=== PATIENT | male | born 1980 ===

== ENCOUNTER 2016-05-05 23:03 | Inpatient (IN) | payer MEDICAID ==
[2016-05-05 23:03] VITALS: BMI 27.0
[2016-05-05 23:59] LABS: BASO # 0.2 K/uL (0.0-0.2); BASO % 1.2 % (0.0-2.0); EOS # 0.3 K/uL (0.0-0.7); EOS % 1.7 % (0.0-4.0); HEMATOCRIT 38.7 % (35.0-51.0); LYMPH # 1.2 K/uL (1.0-4.3); LYMPH % 7.9 % (20.0-40.0); MEAN CELL VOLUME 92.5 fL (80.0-94.0); MEAN CORPUSCULAR HEMOGLOBIN 29.5 pg (27.0-31.0); MEAN CORPUSCULAR HGB CONC 31.9 g/dL (33.0-37.0); MEAN PLATELET VOLUME 7.8 fL (7.2-11.7); MONO # 1.4 K/uL (0.0-0.8); MONO % 9.3 % (0.0-10.0); NRBC % 0.2 % (0.0-2.0); PLATELET COUNT 279 K/uL (130-400); RED CELL DISTRIBUTION WIDTH 18.4 % (11.5-14.5); WHITE BLOOD COUNT 14.7 K/uL (4.8-10.8)
--- NOTE | 2016-05-06 00:02 | C.PDOC ---
History Of Present Illness 35 year old male with a history of ESRD and on dialysis, presents to the ED with complaints of lower abdominal pain starting today. Patient states he has associated vomiting and notes the pain is severe and greater on the right side. Denies diarrhea, fever, chills, back pain, urinary symptoms, or any other complaints at this time. Chief Complaint (Nursing): Abdominal Pain History Per: Patient History/Exam Limitations: no limitations Onset/Duration Of Symptoms: Hrs Current Symptoms Are (Timing): Still Present Severity: Severe Associated Symptoms: Vomiting. denies: Fever, Chills, Diarrhea, Back Pain, Urinary Symptoms Past Medical History Reviewed: Historical Data, Nursing Documentation, Vital Signs Vital Signs: Last Vital Signs Temp 99 F 05/06/16 02:28 Pulse 104 H 05/06/16 02:28 Resp 20 05/06/16 02:28 BP 208/107 H 05/06/16 02:53 Pulse Ox 96 05/06/16 02:28 - Medical History PMH: CHF, Diabetes, Gastritis, HTN, Hypercholesterolemia, End Stage Renal Disease, Chronic Kidney Disease - [facility] Procedures BYPASS LEFT BRACHIAL ARTERY TO UPPER ARM VEIN, OPEN APPROACH (02/17/16) EXCISION OF ASCENDING COLON, ENDO, DIAGN (12/19/15) EXCISION OF DUODENUM, ENDO, DIAGN (03/25/16) EXCISION OF MIDDLE ESOPHAGUS, ENDO, DIAGN (03/25/16) EXCISION OF STOMACH, ENDO, DIAGN (04/01/16) INSERTION OF INFUSION DEV INTO SUP VENA CAVA, PERC APPROACH (12/19/15) PERFORMANCE OF URINARY FILTRATION, MULTIPLE (04/26/16) PERFORMANCE OF URINARY FILTRATION, SINGLE (04/01/16) ULTRASONOGRAPHY OF SUPERIOR VENA CAVA, GUIDANCE (12/19/15) Family History: States: Unknown Family Hx - Social History Hx Tobacco Use: Yes (some days) Hx Alcohol Use: No Hx Substance Use: No - Immunization History Hx Tetanus Toxoid Vaccination: Yes Hx Influenza Vaccination: Yes Hx Pneumococcal Vaccination: Yes Review Of Systems Except As Marked, All Systems Reviewed And Found Negative. Constitutional: Negative for: Fever, Chills Gastrointestinal: Positive for: Vomiting, Abdominal Pain. Negative for: Diarrhea Genitourinary: Negative for: Dysuria, Hematuria Musculoskeletal: Negative for: Back Pain Physical Exam - Physical Exam Appears: Non-toxic, In Acute Distress (+In acute distress due to pain), Other (+ Actively vomiting in ED) Skin: Normal Color, Warm, Dry Head: Atraumatic, Normacephalic Eye(s): bilateral: Normal Inspection Oral Mucosa: Moist Chest: Symmetrical, No Deformity Cardiovascular: Rhythm Regular, No Murmur Respiratory: Normal Breath Sounds, No Accessory Muscle Use, No Rales, No Rhonchi , No Wheezing Gastrointestinal/Abdominal: Soft, Tenderness (+Tenderness to RLQ > LLQ), No Distention, No Guarding, No Rebound Neurological/Psych: Oriented x3, Normal Speech, Normal Cognition ED Course And Treatment - Laboratory Results Result Diagrams: 05/05/16 23:55 05/05/16 23:55 O2 Sat by Pulse Oximetry: 99 (Room air) Pulse Ox Interpretation: Normal - CT Scan/US CT ABD & Pelvis Other Rad Studies (CT/US): Read By Radiologist, Radiology Report Reviewed CT/US Interpretation: FINDINGS: The liver, spleen, gallbladder and pancreas appear grossly normal on this non-contrast study. No hydronephrosis. No obstructing calculi. There is fluid in the right colon that may be incidental versus being associated with enteritis/diarrhea. The transverse, descending, sigmoid colon are decompressed. Haziness in the perirectal fat at least partially due to patient motion. Superimposed inflammation would be difficult to. exclude. A normal appendix is identified on axial images 65 through 70, coronal images 44 through 60. Residual intraluminal contrast is noted. Increased density of the left testicle unchanged from prior although would still recommend nonemergent followup ultrasound. Multiple lymph nodes are present within the groins borderline enlarged. Small shotty periaortic lymph nodes are present. Mild extensive subcutaneous edema. There are fractures of the posterior lateral right ninth and 10th ribs new since most recent prior however there is evidence of callus formation suggesting they are subacute having occurred in the interim. Minimal compression deformity T11 unchanged. IMPRESSION: Fluid within the right colon possibly secondary to enteritis/ diarrhea. Decompressed transverse, descending, sigmoid colon. Possible rectal inflammation as discussed above. Lack of oral contrast. limits evaluation for wall thickness. Lack of intravenous contrast limits evaluation for abnormal wall enhancement. This is the fourth Noncontrast CT in the past 6 months. Study with both oral andintravenous contrast may be helpful to adequately evaluate the patient's bowel if clinically indicated. Non acute findings as discussed in the body of the report including subacute right rib fractures, prominent groin lymph nodes, hyperdense left testicle. Progress Note: CT ABD & Pelvis w/o contrast and Blood work ordered and reviewed. patient treated with Morphine and Zofran. Upon reevaluation, patient states he still has severe abdominal pain and continues to have vomiting and diarrhea. Dr. Chadwick called for admission. Disposition Discussed With .: Lucero Chadwick Doctor Will See Patient In The: Hospital Counseled Patient/Family Regarding: Diagnosis - Disposition Disposition: HOSPITALIZED Disposition Time: 02:01 Condition: STABLE - POA Present On Arrival: None - Clinical Impression Clinical Impression: Vomiting, Diarrhea, ESRD (end stage renal disease) on dialysis, Abdominal pain - Scribe Statement The provider has reviewed the documentation as recorded by the Scribe Priyank Hirsch. Provider Attestation: All medical record entries made by the Scribe were at my direction and personally dictated by me. I have reviewed the chart and agree that the record accurately reflects my personal performance of the history, physical exam, medical decision making, and the department course for this patient. I have also personally directed, reviewed, and agree with the discharge instructions and disposition.
[2016-05-06 00:11] LABS: POTASSIUM 3.7 mmol/L (3.6-5.2)
[2016-05-06 00:13] LABS: BILIRUBIN,TOTAL 0.5 mg/dL (0.2-1.3)
[2016-05-06 00:14] LABS: ALB/GLOB RATIO 0.9 (1.0-2.1); CALCIUM 7.8 mg/dl (8.6-10.4); TOTAL PROTEIN 6.4 g/dL (6.3-8.3)
[2016-05-06 00:54] LABS: EOSINOPHIL 2 % (0-4); NEUTROPHIL 79 % (50-75); TOTAL CELLS COUNTED 100
--- NOTE | 2016-05-06 01:29 | CT ---
EXAM: CT Abdomen and Pelvis Without Intravenous Contrast. CLINICAL HISTORY: 35 years old, male; Pain; Abdominal pain; Additional info: Right lower abd pain, tenderness TECHNIQUE: Axial computed tomography images of the abdomen and pelvis without intravenous contrast. This CT exam was performed using one or more of the following dose reduction techniques: automated exposure control, adjustment of the mA and/or kV according to patient size, and/or use of iterative reconstruction technique. Coronal and sagittal reformatted images were created and reviewed. EXAM DATE/TIME: 05/05/2016 11:32 PM COMPARISON: CT - ABD PELVIS PO CONTRAST ONLY 02/25/2016 10:45:50 PM FINDINGS: The liver, spleen, gallbladder and pancreas appear grossly normal on this non-contrast study. No hydronephrosis. No obstructing calculi. There is fluid in the right colon that may be incidental versus being associated with enteritis/diarrhea. The transverse, descending, sigmoid colon are decompressed. Haziness in the perirectal fat at least partially due to patient motion. Superimposed inflammation would be difficult to exclude. A normal appendix is identified on axial images 65 through 70, coronal images 44 through 60. Residual intraluminal contrast is noted. Increased density of the left testicle unchanged from prior although would still recommend nonemergent followup ultrasound. Multiple lymph nodes are present within the groins borderline enlarged. Small shotty periaortic lymph nodes are present. Mild extensive subcutaneous edema. There are fractures of the posterior lateral right ninth and 10th ribs new since most recent prior however there is evidence of callus formation suggesting they are subacute having occurred in the interim. Minimal compression deformity T11 unchanged. IMPRESSION: Fluid within the right colon possibly secondary to enteritis/diarrhea. Decompressed transverse, descending, sigmoid colon. Possible rectal inflammation as discussed above. Lack of oral contrast limits evaluation for wall thickness. Lack of intravenous contrast limits evaluation for abnormal wall enhancement. This is the fourth Noncontrast CT in the past 6 months. Study with both oral and intravenous contrast may be helpful to adequately evaluate the patient's bowel if clinically indicated. Non acute findings as discussed in the body of the report including subacute right rib fractures, prominent groin lymph nodes, hyperdense left testicle.
[2016-05-06] MEDS ORDERED: HYDROmorphone 1 mg/ml ISec ONE (03:43)
[2016-05-06] MEDS: HYDROmorphone 1 mg/ml ISec IVP PRN ×5 (03:45→22:05)
[2016-05-06] MEDS: (Novolog) Insulin Aspart, Recombinant 100 u/ml 10 ml vial SC SCH ×4 (08:15→22:11)
--- NOTE | 2016-05-06 08:29 | CP.PCM.PN ---
Subjective - Date & Time of Evaluation Date of Evaluation: 05/06/16 Time of Evaluation: 09:30 - Subjective Subjective: Dr. Chadwick service: Patient seen and examined in room. Patient is very sleepy but is easily awakens. He says he has been having issues with nausea vomiting, and diarrhea for some time. He has been admitted to the hospital before for the same reason before. He went to dialysis yesterday however he has been having several episodes of nausea/vomiting and diarrhea. He denies fever, chills, sick contacts, eating any unusual foods, recent travel, cough, or shortness of breath. Objective - Vital Signs/Intake and Output Vital Signs (last 24 hours): Temp Pulse Resp BP Pulse Ox 98.1 F 93 H 20 167/82 H 98 05/06/16 07:27 05/06/16 07:27 05/06/16 07:27 05/06/16 07:27 05/06/16 07:27 - Medications Medications: Current Medications Amlodipine Besylate (Norvasc) 10 mg PO DAILY [facility] Aspirin (Ecotrin) 81 mg PO DAILY [facility] Gabapentin (Neurontin) 800 mg PO TID [facility] Heparin Sodium (Porcine) (Heparin) 5,000 units IV Q12 [facility] Home Med (Atorvastatin Calcium [Atorvastatin Calcium]) 40 mg PO HS [facility] Hydralazine HCl (Apresoline) 10 mg IVP STAT [facility] Hydralazine HCl (Apresoline) 25 mg PO TID [facility] Hydromorphone HCl (Dilaudid) 1 mg IVP Q4H PRN PRN Reason: Pain, moderate (4-7) Last Admin: 05/06/16 08:15 Dose: 1 mg Insulin Aspart (Novolog) 0 unit SC ACHS [facility] PRN Reason: Protocol Last Admin: 05/06/16 08:15 Dose: 1 unit Insulin Human Isoph/Insulin Regular (Novolin 70/30 (70/30 Units/Ml) 10 Ml) 20 units SC BID [facility] Labetalol HCl (Trandate) 200 mg PO Q12H [facility] Last Admin: 05/06/16 05:00 Dose: 200 mg Lisinopril (Zestril) 20 mg PO DAILY [facility] Metoprolol Tartrate (Lopressor) 25 mg PO BID [facility] Metronidazole (Flagyl) 500 mg PO Q8 [facility] Last Admin: 05/06/16 06:20 Dose: 500 mg Ondansetron HCl (Zofran Inj) 4 mg IVP Q6 PRN PRN Reason: Nausea/Vomiting Pantoprazole Sodium (Protonix Inj) 40 mg IVP DAILY [facility] Saccharomyces Boulardii (Florastor) 250 mg PO BID [facility] Sucralfate (Carafate Tab) 1 gm PO BID [facility] - Constitutional Appears: Non-toxic, No Acute Distress - Head Exam Head Exam: NORMOCEPHALIC - Eye Exam Eye Exam: Normal appearance, PERRL Pupil Exam: NORMAL ACCOMODATION - ENT Exam ENT Exam: Normal Exam - Respiratory Exam Respiratory Exam: Clear to Ausculation Bilateral. absent: Rhonchi, Wheezes - Cardiovascular Exam Cardiovascular Exam: REGULAR RHYTHM, RRR, +S1, +S2. absent: Gallop, Rubs - GI/Abdominal Exam GI & Abdominal Exam: Soft, Normal Bowel Sounds. absent: Tenderness - Extremities Exam Extremities Exam: Pedal Edema - Back Exam Back Exam: NORMAL INSPECTION - Psychiatric Exam Psychiatric exam: Normal Affect, Normal Mood - Skin Skin Exam: Normal Color, Warm Assessment and Plan (1) Nausea and vomiting Assessment & Plan: Patient is on Zofran 4mg IVP Q6H, Carafate 1gm bid, protonix 40mg IVP Reglan 5mg IVP ACHS, Dr. Armstrong consulted, help appreciated. 1mg Dilauded Q4H prn for pain Status: Acute (2) Diarrhea Assessment & Plan: Dr. Armstrong consulted, help appreciated, Florastor Flagyl 500mg IVP Q8H Status: Acute (3) ESRD (end stage renal disease) on dialysis Assessment & Plan: Will continue current dialysis schedule of [facility] Status: Chronic (4) DM2 (diabetes mellitus, type 2) Assessment & Plan: Continue Home insuline 70/30 20 units bid, acu checks with sliding scale insulin with low protocol ordered Status: Chronic (5) HTN (hypertension) Assessment & Plan: Hydralazine 25mg tid, Lopressor 25mg bid, Zestril 20mg daily, Norvasc 10mg, Asprin 81m, Labetalol 200mg q12h Status: Chronic (6) Prophylactic measure Assessment & Plan: Protonix 40mg IVP Heparin 5000 units SC q12h Status: Acute
[2016-05-06] MEDS: Saccharomyces Boulardi 250 mg Cap PO SCH ×2 (10:16→18:31)
[2016-05-06] MEDS: (Novolin 70/30) NPH/Regular 70/30 Units/ml 10 ml vial SC SCH ×2 (10:16→18:33)
[2016-05-06 12:46] LABS: CARCINOEMBRYONIC ANTIGEN 8.4 ng/mL (0-3.0)
[2016-05-06 12:50] LABS: CA 19-9 < 1.4 U/mL (0-37)
[2016-05-06] MEDS ORDERED: Peg-Electrolyte Oral Soln 4L (Golytely) PO ONE (13:00)
--- NOTE | 2016-05-06 16:28 | CP.PCM.CON ---
History of Present Illness - History of Present Illness History of Present Illness: 35 y/o male with ESRD on maintenance HD every MWF via Lt arm AVF , CFHF , IDDM with complications is admitted for c/o abdominal pain Renal consult is requested for Mx of ESRD Past Patient History - Infectious Disease Hx of Infectious Diseases: None - Past Medical History & Family History Past Medical History?: Yes - Past Social History Smoking Status: Current Some Days Smoker - CARDIAC Hx Congestive Heart Failure: Yes Hx Hypercholesterolemia: Yes Hx Hypertension: Yes - PULMONARY Hx Respiratory Disorders: No - NEUROLOGICAL Hx Neurological Disorder: No - HEENT Hx HEENT Problems: Yes (cataracts RIGHT) Hx Cataracts: Yes - RENAL Hx Chronic Kidney Disease: Yes Hx Dialysis: Yes (MWF) - ENDOCRINE/METABOLIC Hx Endocrine Disorders: Yes - HEMATOLOGICAL/ONCOLOGICAL Hx Human Immunodeficiency Virus (HIV): No - INTEGUMENTARY Hx Dermatological Problems: No - MUSCULOSKELETAL/RHEUMATOLOGICAL Hx Falls: No - GASTROINTESTINAL Hx Gastritis: Yes - GENITOURINARY/GYNECOLOGICAL Hx Genitourinary Disorders: No - PSYCHIATRIC Hx Substance Use: No - SURGICAL HISTORY Hx Surgeries: Yes Hx Bile Duct Stent: Yes Hx Cataract Extraction: Yes Hx Eye Surgery: Yes (CATARACT REMOVAL RT.) Hx Vascular Access Device: Yes Other/Comment: RT.PERMACATH INSERTION 12/30. LT.AV SHUNT CREATION 02/17/16. UNDESCENDED TESTES LT. REMOVED DURING CHILDHOOD - ANESTHESIA Hx Anesthesia: Yes Hx Anesthesia Reactions: No Hx Malignant Hyperthermia: No Has any member of the family had a problem w/ anesthesia?: No Meds Allergies/Adverse Reactions: Allergies Allergy/AdvReac Type Severity Reaction Status Date / Time No Known Allergies Allergy Verified 02/17/16 02:41 - Medications Medications: Current Medications Amlodipine Besylate (Norvasc) 10 mg PO DAILY [facility] Last Admin: 05/06/16 10:15 Dose: 10 mg Aspirin (Ecotrin) 81 mg PO DAILY [facility] Last Admin: 05/06/16 10:15 Dose: 81 mg Bisacodyl (Dulcolax) 10 mg PO ONCE ONE Stop: 05/06/16 17:01 Gabapentin (Neurontin) 800 mg PO TID [facility] Last Admin: 05/06/16 13:25 Dose: 800 mg Heparin Sodium (Porcine) (Heparin) 5,000 units IV Q12 [facility] Last Admin: 05/06/16 10:14 Dose: 5,000 units Home Med (Atorvastatin Calcium [Atorvastatin Calcium]) 40 mg PO HS [facility] Hydralazine HCl (Apresoline) 10 mg IVP STAT [facility] Hydralazine HCl (Apresoline) 25 mg PO TID [facility] Last Admin: 05/06/16 13:25 Dose: 25 mg Hydromorphone HCl (Dilaudid) 1 mg IVP Q4H PRN PRN Reason: Pain, moderate (4-7) Last Admin: 05/06/16 12:20 Dose: 1 mg Insulin Aspart (Novolog) 0 unit SC [facility] PRN Reason: Protocol Last Admin: 05/06/16 12:06 Dose: 1 unit Insulin Human Isoph/Insulin Regular (Novolin 70/30 (70/30 Units/Ml) 10 Ml) 20 units SC BID [facility] Last Admin: 05/06/16 10:16 Dose: 20 units Labetalol HCl (Trandate) 200 mg PO Q12H [facility] Last Admin: 05/06/16 05:00 Dose: 200 mg Lisinopril (Zestril) 20 mg PO DAILY [facility] Last Admin: 05/06/16 10:16 Dose: 20 mg Metoclopramide HCl (Reglan) 5 mg IVP ACHS [facility] Last Admin: 05/06/16 12:05 Dose: 5 mg Metoprolol Tartrate (Lopressor) 25 mg PO BID [facility] Last Admin: 05/06/16 10:15 Dose: 25 mg Metronidazole (Flagyl) 500 mg PO Q8 [facility] Last Admin: 05/06/16 13:25 Dose: 500 mg Ondansetron HCl (Zofran Inj) 4 mg IVP Q6 PRN PRN Reason: Nausea/Vomiting Pantoprazole Sodium (Protonix Inj) 40 mg IVP DAILY [facility] Last Admin: 05/06/16 10:14 Dose: 40 mg Saccharomyces Boulardii (Florastor) 250 mg PO BID [facility] Last Admin: 05/06/16 10:16 Dose: 250 mg Sucralfate (Carafate Tab) 1 gm PO BID [facility] Last Admin: 05/06/16 10:15 Dose: 1 gm Physical Exam - Constitutional Appears: No Acute Distress - Head Exam Head Exam: ATRAUMATIC, NORMOCEPHALIC - Eye Exam Additional comments: No icterus - ENT Exam ENT Exam: Mucous Membranes Moist - Neck Exam Additional comments: Neck supple - Respiratory Exam Additional comments: Lungs clear. Good air entry B/L - Cardiovascular Exam Cardiovascular Exam: REGULAR RHYTHM - GI/Abdominal Exam GI & Abdominal Exam: Soft Additional comments: Mild diffuse tenderness.No duarding or rebound - Extremities Exam Additional comments: No edema Results - Vital Signs Recent Vital Signs: Last Vital Signs Temp 98.0 F 05/06/16 15:40 Pulse 85 05/06/16 15:40 Resp 20 05/06/16 15:40 BP 153/80 H 05/06/16 15:40 Pulse Ox 100 05/06/16 15:40 - Labs Result Diagrams: 05/05/16 23:55 05/05/16 23:55 Labs: Laboratory Results - last 24 hr 05/06/16 05/06/16 05/06/16 07:52 11:00 11:26 POC Glucose (mg/dL) 208 H 184 H Alpha Fetoprotein 1.6 Carcinoembryonic Ag 8.4 H CA 19-9 Antigen < 1.4 Assessment & Plan - Assessment and Plan (Free Text) Assessment: ESRD, HD dependent Abdominal pain, diabetic gastroparesis HTN IDDM Plan: Continue HD every MWF BP & labs are stable
[2016-05-06] MEDS ORDERED: Bisacodyl 5mg EC Tab PO ONE ×2 (17:00→18:38)
[2016-05-06] MEDS ORDERED: Home Med 1 UNIT (Atorvastatin Calcium [Atorvastatin Calcium] 40 MG) PO SCH (22:00)
[2016-05-07] MEDS: HYDROmorphone 1 mg/ml ISec IVP PRN ×5 (02:37→23:15)
--- NOTE | 2016-05-07 07:33 | HP ---
The patient is a 35-year-old male complaining of nausea and vomiting, abdominal pain, weakness. The patient came to the hospital, advised admission. The patient ,Diabetes, hypertension. OBJECTIVE: GENERAL: The patient is awake, alert, built. VITAL SIGNS: Temperature . HEENT: . NECK: Supple. CHEST: Symmetrical. HEART: Regular. ABDOMEN: Soft. EXTREMITIES: No edema. The patient suffers from blindness. The patient suffers from acute gastritis, uremic, diabetic, ____ _. Lucero Mcgraw MD cc: [id number] TT: 05/06/2016 11:01:21 an 05/07/2016 06:32:27
--- NOTE | 2016-05-07 07:48 | HP ---
The patient is a 35-year-old male, complaining of nausea and vomiting, weakness, abdominal pain . The patient came to the hospital, advised admission. The patient has past medical history of diab etes, hypertension, renal failure. PHYSICAL EXAMINATION: GENERAL: The patient is awake, alert, oriented to time and place. VITAL SIGNS: Temperature 98, pulse 90. HEENT: Within normal limits. NECK: Supple. CHEST: Symmetrical. HEART: Regular. ABDOMEN: Epigastric tenderness. EXTREMITIES: No edema. The patient suffers acute abdominal pain, rule out gastritis, uremic, diabetic gastroparesis, peptic ulcer disease, rule out pancreatitis. At this point, the patient gets IV fluids, GI consult [facility] Dr. Armstrong. The cardiology consult . Lucero Mcgraw MD cc: [id number] TT: 05/06/2016 11:15:11 05/06/2016 12:13:03
[2016-05-07] MEDS: (Novolog) Insulin Aspart, Recombinant 100 u/ml 10 ml vial SC SCH ×4 (07:50→22:06)
[2016-05-07 09:15] LABS: POTASSIUM 3.8 mmol/L (3.6-5.2)
[2016-05-07 09:17] LABS: ALB/GLOB RATIO 0.9 (1.0-2.1); BILIRUBIN,TOTAL 0.4 mg/dL (0.2-1.3); TOTAL PROTEIN 5.8 g/dL (6.3-8.3)
[2016-05-07 09:18] LABS: CALCIUM 7.9 mg/dl (8.6-10.4)
[2016-05-07] MEDS: Saccharomyces Boulardi 250 mg Cap PO SCH ×2 (10:15→19:08)
[2016-05-07] MEDS: (Novolin 70/30) NPH/Regular 70/30 Units/ml 10 ml vial SC SCH (10:19)
[2016-05-07] MEDS ORDERED: Midazolam 2 MG/2 ML VIAL ONE (11:26)
[2016-05-07] MEDS ORDERED: Propofol 10 mg/ml Inj (20 ML) ONE (11:26)
[2016-05-07 15:17] LABS: BASO # 0.1 K/uL (0.0-0.2); BASO % 0.9 % (0.0-2.0); EOS # 0.3 K/uL (0.0-0.7); EOS % 2.8 % (0.0-4.0); HEMATOCRIT 37.4 % (35.0-51.0); LYMPH # 1.6 K/uL (1.0-4.3); LYMPH % 16.6 % (20.0-40.0); MEAN CORPUSCULAR HEMOGLOBIN 28.5 pg (27.0-31.0); MEAN CORPUSCULAR HGB CONC 30.6 g/dL (33.0-37.0); MEAN PLATELET VOLUME 8.3 fL (7.2-11.7); MONO # 0.9 K/uL (0.0-0.8); MONO % 8.9 % (0.0-10.0); NRBC % 0.1 % (0.0-2.0); RED CELL DISTRIBUTION WIDTH 18.4 % (11.5-14.5); WHITE BLOOD COUNT 9.6 K/uL (4.8-10.8)
--- NOTE | 2016-05-07 15:20 | CP.PCM.PN ---
Subjective - Date & Time of Evaluation Date of Evaluation: 05/07/16 Time of Evaluation: 03:00 - Subjective Subjective: No complaints reported Objective - Vital Signs/Intake and Output Vital Signs (last 24 hours): Temp Pulse Resp BP Pulse Ox 97.7 F 88 18 173/96 H 96 05/07/16 14:00 05/07/16 14:00 05/07/16 14:00 05/07/16 14:45 05/07/16 14:00 Intake and Output: 05/07/16 05/07/16 06:59 18:59 Intake Total 200 Balance 200 - Medications Medications: Current Medications Amlodipine Besylate (Norvasc) 10 mg PO DAILY [facility] Last Admin: 05/07/16 10:18 Dose: Not Given Aspirin (Ecotrin) 81 mg PO DAILY [facility] Last Admin: 05/07/16 10:15 Dose: Not Given Gabapentin (Neurontin) 800 mg PO TID [facility] Heparin Sodium (Porcine) (Heparin) 5,000 units IV Q12 [facility] Last Admin: 05/07/16 10:15 Dose: Not Given Home Med (Atorvastatin Calcium [Atorvastatin Calcium]) 40 mg PO [facility] Hydralazine HCl (Apresoline) 25 mg PO TID [facility] Last Admin: 05/07/16 14:56 Dose: Not Given Hydromorphone HCl (Dilaudid) 1 mg IVP Q4H PRN PRN Reason: Pain, moderate (4-7) Last Admin: 05/07/16 13:04 Dose: 1 mg Insulin Aspart (Novolog) 0 unit SC [facility] PRN Reason: Protocol Last Admin: 05/07/16 12:37 Dose: Not Given Insulin Human Isoph/Insulin Regular (Novolin 70/30 (70/30 Units/Ml) 10 Ml) 20 units SC BID [facility] Last Admin: 05/07/16 10:19 Dose: Not Given Labetalol HCl (Trandate) 200 mg PO Q12H [facility] Last Admin: 05/07/16 05:28 Dose: 200 mg Lisinopril (Zestril) 20 mg PO DAILY [facility] Last Admin: 05/07/16 09:35 Dose: 20 mg Metoclopramide HCl (Reglan) 5 mg IVP ACHS [facility] Last Admin: 05/07/16 12:37 Dose: Not Given Metoprolol Tartrate (Lopressor) 25 mg PO BID [facility] Last Admin: 05/07/16 09:35 Dose: 25 mg Metronidazole (Flagyl) 500 mg PO Q8 [facility] Last Admin: 05/07/16 14:58 Dose: Not Given Ondansetron HCl (Zofran Inj) 4 mg IVP Q6 PRN PRN Reason: Nausea/Vomiting Pantoprazole Sodium (Protonix Inj) 40 mg IVP DAILY [facility] Last Admin: 05/07/16 10:19 Dose: Not Given Saccharomyces Boulardii (Florastor) 250 mg PO BID [facility] Last Admin: 05/07/16 10:15 Dose: Not Given Sucralfate (Carafate Tab) 1 gm PO BID [facility] Last Admin: 05/07/16 10:15 Dose: Not Given - Labs Labs: 05/07/16 08:55 APTT 30 SECONDS (21-34) 05/07/16 08:55 - Constitutional Appears: No Acute Distress - Respiratory Exam Respiratory Exam: NORMAL BREATHING PATTERN Assessment and Plan - Assessment and Plan (Free Text) Assessment: ESRD on maintenance HD HTN Abdominal pain S/P EGD today Plan: Continue HD per schedule Comfortable on dialysis Monitor BP
[2016-05-07 15:29] LABS: POTASSIUM 3.7 mmol/L (3.6-5.2)
[2016-05-07 15:31] LABS: ALB/GLOB RATIO 0.9 (1.0-2.1); BILIRUBIN,TOTAL 0.3 mg/dL (0.2-1.3); TOTAL PROTEIN 5.6 g/dL (6.3-8.3)
[2016-05-07 15:32] LABS: CALCIUM 7.8 mg/dl (8.6-10.4); MAGNESIUM 1.8 mg/dL (1.6-2.3); PHOSPHOROUS 5.7 mg/dL (2.5-4.5)
--- NOTE | 2016-05-07 18:45 | CP.PCM.PN ---
Subjective - Date & Time of Evaluation Date of Evaluation: 05/07/16 Time of Evaluation: 08:30 - Subjective Subjective: Dr. Chadwick's service: Patient seen and examined in room. Patient is still complaing of having several episodes of diarrhea and also nausea and vomiting. He does report that he is hungry though. He denies fever, chills, chest pain, or shortness of breath. Objective - Vital Signs/Intake and Output Vital Signs (last 24 hours): Temp Pulse Resp BP Pulse Ox 98.3 F 100 H 20 168/89 H 97 05/07/16 17:30 05/07/16 17:30 05/07/16 17:30 05/07/16 17:30 05/07/16 17:30 Intake and Output: 05/07/16 05/07/16 06:59 18:59 Intake Total 500 Balance 500 - Medications Medications: Current Medications Amlodipine Besylate (Norvasc) 10 mg PO DAILY ON LICENSE OF [facility] Last Admin: 05/07/16 10:18 Dose: Not Given Aspirin (Ecotrin) 81 mg PO DAILY ON [facility] OF [facility] Last Admin: 05/07/16 10:15 Dose: Not Given Gabapentin (Neurontin) 800 mg PO TID ON [facility] OF [facility] Heparin Sodium (Porcine) (Heparin) 5,000 units IV Q12 ON [facility] OF [facility] Last Admin: 05/07/16 10:15 Dose: Not Given Home Med (Atorvastatin Calcium [Atorvastatin Calcium]) 40 mg PO HS ON LICENSE OF [facility] Hydralazine HCl (Apresoline) 25 mg PO TID ON [facility] OF [facility] Last Admin: 05/07/16 14:56 Dose: Not Given Hydromorphone HCl (Dilaudid) 1 mg IVP Q4H PRN PRN Reason: Pain, moderate (4-7) Last Admin: 05/07/16 13:04 Dose: 1 mg Insulin Aspart (Novolog) 0 unit SC ACHS ON LICENSE OF [facility] PRN Reason: Protocol Last Admin: 05/07/16 12:37 Dose: Not Given Insulin Human Isoph/Insulin Regular (Novolin 70/30 (70/30 Units/Ml) 10 Ml) 20 units SC BIDCC ON LICENSE OF [facility] Labetalol HCl (Trandate) 200 mg PO Q12H ON [facility] OF [facility] Last Admin: 05/07/16 05:28 Dose: 200 mg Lisinopril (Zestril) 20 mg PO DAILY [facility] Last Admin: 05/07/16 09:35 Dose: 20 mg Metoclopramide HCl (Reglan) 5 mg IVP ACHS ON [facility] Last Admin: 05/07/16 12:37 Dose: Not Given Metoprolol Tartrate (Lopressor) 25 mg PO BID ON [facility] Last Admin: 05/07/16 09:35 Dose: 25 mg Metronidazole (Flagyl) 500 mg PO Q8 [facility] Last Admin: 05/07/16 14:58 Dose: Not Given Ondansetron HCl (Zofran Inj) 4 mg IVP Q6 PRN PRN Reason: Nausea/Vomiting Pantoprazole Sodium (Protonix Inj) 40 mg IVP DAILY [facility] Last Admin: 05/07/16 10:19 Dose: Not Given Saccharomyces Boulardii (Florastor) 250 mg PO BID ON [facility] Last Admin: 05/07/16 10:15 Dose: Not Given Sucralfate (Carafate Tab) 1 gm PO BID ON [facility] Last Admin: 05/07/16 10:15 Dose: Not Given - Labs Labs: 05/07/16 15:11 05/07/16 15:11 APTT 30 SECONDS (21-34) 05/07/16 08:55 - Constitutional Appears: Non-toxic, No Acute Distress, Unkempt - Head Exam Head Exam: NORMAL INSPECTION, NORMOCEPHALIC - Eye Exam Eye Exam: Normal appearance - ENT Exam ENT Exam: Normal Exam - Respiratory Exam Respiratory Exam: Clear to Ausculation Bilateral. absent: Rhonchi, Wheezes - Cardiovascular Exam Cardiovascular Exam: REGULAR RHYTHM, RRR, +S1, +S2. absent: Gallop, Rubs - GI/Abdominal Exam GI & Abdominal Exam: Soft, Normal Bowel Sounds. absent: Tenderness - Extremities Exam Extremities Exam: Normal Inspection. absent: Pedal Edema - Back Exam Back Exam: NORMAL INSPECTION - Psychiatric Exam Psychiatric exam: Depressed, Normal Mood - Skin Skin Exam: Dry, Normal Color, Warm Assessment and Plan - Assessment and Plan (Free Text) Assessment: Assessment and Plan (1) Nausea and vomiting Assessment & Plan: 05/07: Patient on diet, will see how he can tolerate diet, keep current medication management Patient is on Zofran 4mg IVP Q6H, Carafate 1gm bid, protonix 40mg IVP Reglan 5mg IVP [facility], Dr. Armstrong consulted, help appreciated. 1mg Dilauded Q4H prn for pain Status: Acute (2) Diarrhea Assessment & Plan: 05/07: Colonoscopy today, will follow up results, have ordered stool cultures. Dr. Armstrong consulted, help appreciated, Florastor Flagyl 500mg IVP Q8H Status: Acute (3) ESRD (end stage renal disease) on dialysis Assessment & Plan: Will continue current dialysis schedule of MWF Status: Chronic (4) DM2 (diabetes mellitus, type 2) Assessment & Plan: Continue Home insuline 70/30 20 units bid, acu checks with sliding scale insulin with low protocol ordered Status: Chronic (5) HTN (hypertension) Assessment & Plan: Hydralazine 25mg tid, Lopressor 25mg bid, Zestril 20mg daily, Norvasc 10mg, Asprin 81m, Labetalol 200mg q12h Status: Chronic (6) Prophylactic measure Assessment & Plan: Protonix 40mg IVP Heparin 5000 units SC q12h Status: Acute
--- NOTE | 2016-05-07 18:54 | CP.PCM.PN ---
Subjective - Date & Time of Evaluation Date of Evaluation: 05/07/16 Time of Evaluation: 18:35 - Subjective Subjective: Code Star note for Dr. Enrique Nixon PGY-1 Pt S & E at bedside. Code star called at 1829 House resident responded to Code Start at 1829. Pt awake, alert, sitting at bedside, no obvious signs of trauma or bleeding. Pt reports that he walked to go get a sandwich, when he turned his body to get a sandwich, he fell on his right hip/flank area. Pt reports similar incidents due to "weak legs" at home. Denies LOC, dizziness, syncope, vision changes, chest pain, abdominal pain, right side/flank pain. Objective - Vital Signs/Intake and Output Vital Signs (last 24 hours): Temp Pulse Resp BP Pulse Ox 98.3 F 100 H 20 168/89 H 97 05/07/16 17:30 05/07/16 17:30 05/07/16 17:30 05/07/16 17:30 05/07/16 17:30 Intake and Output: 05/07/16 05/07/16 06:59 18:59 Intake Total 500 Balance 500 - Medications Medications: Current Medications Amlodipine Besylate (Norvasc) 10 mg PO DAILY [facility] Last Admin: 05/07/16 10:18 Dose: Not Given Aspirin (Ecotrin) 81 mg PO DAILY [facility] Last Admin: 05/07/16 10:15 Dose: Not Given Famotidine (Pepcid) 20 mg PO DAILY [facility] Gabapentin (Neurontin) 800 mg PO TID [facility] Heparin Sodium (Porcine) (Heparin) 5,000 units IV Q12 [facility] Last Admin: 05/07/16 10:15 Dose: Not Given Home Med (Atorvastatin Calcium [Atorvastatin Calcium]) 40 mg PO HS [facility] Hydralazine HCl (Apresoline) 25 mg PO TID [facility] Last Admin: 05/07/16 14:56 Dose: Not Given Hydromorphone HCl (Dilaudid) 1 mg IVP Q4H PRN PRN Reason: Pain, moderate (4-7) Last Admin: 05/07/16 13:04 Dose: 1 mg Insulin Aspart (Novolog) 0 unit SC ACHS [facility] PRN Reason: Protocol Last Admin: 05/07/16 12:37 Dose: Not Given Insulin Human Isoph/Insulin Regular (Novolin 70/30 (70/30 Units/Ml) 10 Ml) [facility] Labetalol HCl (Trandate) 200 mg PO Q12H [facility] Last Admin: 05/07/16 05:28 Dose: 200 mg Lisinopril (Zestril) 20 mg PO DAILY [facility] Last Admin: 05/07/16 09:35 Dose: 20 mg Metoclopramide HCl (Reglan) 5 mg IVP ACHS [facility] Last Admin: 05/07/16 12:37 Dose: Not Given Metoprolol Tartrate (Lopressor) 25 mg PO BID [facility] Last Admin: 05/07/16 09:35 Dose: 25 mg Metronidazole (Flagyl) 500 mg PO Q8 [facility] Last Admin: 05/07/16 14:58 Dose: Not Given Ondansetron HCl (Zofran Inj) 4 mg IVP Q6 PRN PRN Reason: Nausea/Vomiting Saccharomyces Boulardii (Florastor) 250 mg PO BID [facility] Last Admin: 05/07/16 10:15 Dose: Not Given Sucralfate (Carafate Tab) 1 gm PO BID [facility] Last Admin: 05/07/16 10:15 Dose: Not Given - Labs Labs: 05/07/16 15:11 05/07/16 15:11 APTT 30 SECONDS (21-34) 05/07/16 08:55 - Constitutional Appears: Non-toxic, No Acute Distress - Head Exam Head Exam: ATRAUMATIC, NORMAL INSPECTION, NORMOCEPHALIC - Eye Exam Eye Exam: EOMI, Normal appearance - ENT Exam ENT Exam: Mucous Membranes Moist, Normal Exam - Neck Exam Neck Exam: Full ROM, Normal Inspection - Respiratory Exam Respiratory Exam: Clear to Ausculation Bilateral, NORMAL BREATHING PATTERN. absent: Rales, Rhonchi, Wheezes, Respiratory Distress, Stridor - Cardiovascular Exam Cardiovascular Exam: REGULAR RHYTHM, +S2 - GI/Abdominal Exam GI & Abdominal Exam: Soft, Tenderness (Epigastric), Normal Bowel Sounds - Back Exam Back Exam: NORMAL INSPECTION. absent: CVA tenderness (L), CVA tenderness (R), paraspinal tenderness, vertebral tenderness - Neurological Exam Neurological Exam: Alert, Awake, CN II-XII Intact, Oriented x3 - Psychiatric Exam Psychiatric exam: Normal Affect, Normal Mood - Skin Skin Exam: Dry, Intact, Warm. absent: Normal Color (Small, 1cm circular ecchymoses on right distal flank) Assessment and Plan - Assessment and Plan (Free Text) Assessment: S/p mechanical fall Pt awake, alert, denies pain Physical evaluation negative for concerning findings Will institute fall precautions No further intervention at this time Yvrose Nixon, PGY-1
[2016-05-08] MEDS: HYDROmorphone 1 mg/ml ISec IVP PRN ×5 (03:14→21:25)
[2016-05-08] MEDS: (Novolog) Insulin Aspart, Recombinant 100 u/ml 10 ml vial SC SCH ×4 (08:30→21:26)
[2016-05-08] MEDS: (Novolin 70/30) NPH/Regular 70/30 Units/ml 10 ml vial SC SCH ×2 (08:33→17:10)
[2016-05-08 08:43] LABS: BASO # 0.1 K/uL (0.0-0.2); BASO % 0.5 % (0.0-2.0); EOS # 0.2 K/uL (0.0-0.7); EOS % 1.9 % (0.0-4.0); HEMATOCRIT 36.6 % (35.0-51.0); LYMPH # 1.3 K/uL (1.0-4.3); LYMPH % 10.3 % (20.0-40.0); MEAN CELL VOLUME 92.3 fL (80.0-94.0); MEAN CORPUSCULAR HEMOGLOBIN 28.6 pg (27.0-31.0); MEAN PLATELET VOLUME 8.2 fL (7.2-11.7); MONO # 1.6 K/uL (0.0-0.8); MONO % 12.3 % (0.0-10.0); NRBC % 0.1 % (0.0-2.0); RED CELL DISTRIBUTION WIDTH 18.5 % (11.5-14.5); WHITE BLOOD COUNT 12.8 K/uL (4.8-10.8)
--- NOTE | 2016-05-08 08:49 | PN ---
DATE: 05/08/2016 LOCATION: 365, bed B. This is a 35-year-old male seen and examined this morning post-colonoscopy with polypectomy yesterday without significant clinical changes or reported active bleeding, post fall, as reported by the nurs ing staff. The entire chart is reviewed including, but not limited to the most recent lab and radiol ogy study results, current and the previous medication lists, current and the previous medical events . Case was discussed at length with the staff on the floor. The most recent lab results showed bloo d glucose level still elevated to 342 with increased BUN at 26, creatinine 4.3 with low albumin and l ow total protein. PHYSICAL EXAMINATION: GENERAL: A 35-year-old male, appears to be awake, alert. VITAL SIGNS: Afebrile with pulse of 92, respiratory rate 20-22, blood pressure of 174/80. HEENT: Showed pale, dry oral mucoid membrane. Nonicteric sclerae. LUNGS: Few scattered crepitation, decreased air entry at bases. HEART: Positive S1 and S2. ABDOMEN: Soft. Bowel sounds are present. No mass or organomegaly. No rebound tenderness or guardi ng. RECTAL: The patient refused. EXTREMITIES: With mild lower extremities edematous changes. No clubbing or cyanosis. NEUROLOGIC: No reported neurological deficits, sensory or motor. IMPRESSION: 1. Colon polyp diagnosed by colonoscopy recently, removed. Pathology report still pending. 2. Nonbleeding internal hemorrhoids. 3. Renal failure, on hemodialysis. 4. Known history of diabetes mellitus, hypertension, and hyperlipidemia. 5. Reported history of congestive heart failure before. 6. Peptic ulcer disease by recent history. 7. Anemia secondary to above. SUGGESTION: 1. Continue current management. 2. Advance diet gradually. Panda Armstrong MD cc: 14 TT: 05/08/2016 08:48:55 Confirmation # [id number] Dictation # [id number]
[2016-05-08 09:02] LABS: POTASSIUM 3.8 mmol/L (3.6-5.2)
[2016-05-08 09:04] LABS: BILIRUBIN,TOTAL 0.6 mg/dL (0.2-1.3)
[2016-05-08 09:05] LABS: ALB/GLOB RATIO 0.9 (1.0-2.1); PHOSPHOROUS 4.1 mg/dL (2.5-4.5); TOTAL PROTEIN 5.5 g/dL (6.3-8.3)
[2016-05-08 09:06] LABS: CALCIUM 7.2 mg/dl (8.6-10.4); MAGNESIUM 1.9 mg/dL (1.6-2.3)
[2016-05-08] MEDS: Saccharomyces Boulardi 250 mg Cap PO SCH ×2 (09:55→17:12)
--- NOTE | 2016-05-08 11:36 | CP.PCM.PN ---
Subjective - Date & Time of Evaluation Date of Evaluation: 05/08/16 Time of Evaluation: 11:00 - Subjective Subjective: Pt states that he feels beter today & at this time no abdominal pain Objective - Vital Signs/Intake and Output Vital Signs (last 24 hours): Temp Pulse Resp BP Pulse Ox 98.2 F 89 20 196/96 H 96 05/08/16 08:00 05/08/16 08:00 05/08/16 08:00 05/08/16 09:54 05/08/16 08:00 Intake and Output: 05/08/16 05/08/16 06:59 18:59 Intake Total 240 Balance 240 - Medications Medications: Current Medications Amlodipine Besylate (Norvasc) 10 mg PO DAILY [facility] Last Admin: 05/08/16 09:55 Dose: 10 mg Aspirin (Ecotrin) 81 mg PO DAILY [facility] Last Admin: 05/08/16 09:55 Dose: 81 mg Famotidine (Pepcid) 20 mg PO DAILY [facility] Last Admin: 05/08/16 09:55 Dose: 20 mg Gabapentin (Neurontin) 800 mg PO TID [facility] Heparin Sodium (Porcine) (Heparin) 5,000 units SC Q12 [facility] Last Admin: 05/08/16 09:55 Dose: 5,000 units Home Med (Atorvastatin Calcium [Atorvastatin Calcium]) 40 mg PO HS [facility] Hydralazine HCl (Apresoline) 25 mg PO TID [facility] Last Admin: 05/08/16 09:55 Dose: 25 mg Hydromorphone HCl (Dilaudid) 1 mg IVP Q4H PRN PRN Reason: Pain, moderate (4-7) Last Admin: 05/08/16 08:35 Dose: 1 mg Insulin Aspart (Novolog) 0 unit SC ACHS [facility] PRN Reason: Protocol Last Admin: 05/08/16 08:30 Dose: 4 unit Insulin Human Isoph/Insulin Regular (Novolin 70/30 (70/30 Units/Ml) 10 Ml) 20 units SC BIDCC [facility] Last Admin: 05/08/16 08:33 Dose: 20 units Labetalol HCl (Trandate) 200 mg PO Q12H [facility] Last Admin: 05/08/16 05:05 Dose: 200 mg Lisinopril (Zestril) 20 mg PO DAILY [facility] Last Admin: 05/08/16 09:54 Dose: 20 mg Metoclopramide HCl (Reglan) 5 mg IVP ACHS [facility] Last Admin: 05/08/16 08:30 Dose: 5 mg Metoprolol Tartrate (Lopressor) 25 mg PO BID [facility] Last Admin: 05/08/16 09:54 Dose: 25 mg Metronidazole (Flagyl) 500 mg PO Q8 [facility] Last Admin: 05/08/16 05:05 Dose: 500 mg Ondansetron HCl (Zofran Inj) 4 mg IVP Q6 PRN PRN Reason: Nausea/Vomiting Saccharomyces Boulardii (Florastor) 250 mg PO BID [facility] Last Admin: 05/08/16 09:55 Dose: 250 mg Sucralfate (Carafate Tab) 1 gm PO BID [facility] Last Admin: 05/08/16 09:55 Dose: 1 gm - Labs Labs: 05/08/16 08:31 05/08/16 08:31 APTT 30 SECONDS (21-34) 05/07/16 08:55 - Respiratory Exam Additional comments: Lungs clear - Cardiovascular Exam Cardiovascular Exam: REGULAR RHYTHM - GI/Abdominal Exam GI & Abdominal Exam: Soft Additional comments: No guarding - Extremities Exam Additional comments: No edema Assessment and Plan - Assessment and Plan (Free Text) Assessment: ESRD on maintenance HD HTN Abdominal pain, S/P Colonoscopy yesterday IDDM Plan: Stable on dialysis. Continue HD Mon,Wed,Tue
[2016-05-09] MEDS: HYDROmorphone 1 mg/ml ISec IVP PRN ×6 (01:30→22:23)
[2016-05-09] MEDS: (Novolog) Insulin Aspart, Recombinant 100 u/ml 10 ml vial SC SCH ×4 (09:13→23:18)
[2016-05-09] MEDS: Saccharomyces Boulardi 250 mg Cap PO SCH ×2 (10:07→18:07)
[2016-05-09] MEDS: (Novolin 70/30) NPH/Regular 70/30 Units/ml 10 ml vial SC SCH ×2 (10:14→18:00)
--- NOTE | 2016-05-09 11:09 | PN ---
DATE: 05/09/2016 LOCATION: 365, bed B. This 35-year-old male post-colonoscopy with polypectomy, appears to be somewhat more awake, alert, or iented. No reported significant new complaint or clinical changes. The entire chart is reviewed, in cluding but not limited to the most recent lab and radiology study results, current and previous medi cation list, current and the previous medical events. Case discussed with the staff at length. Most recent lab results showed leukocytosis with low hemoglobin and normal blood glucose level today to 1 07 with mildly elevated alkaline phosphatase, but low total protein and low albumin with increased BU N and creatinine compatible with the patient's known end-stage renal disease. PHYSICAL EXAMINATION: GENERAL: A 35-year-old male. VITAL SIGNS: Afebrile with heart rate of 90, respiratory rate 20-22, blood pressure of 128/68. HEENT: Showed pale, dry oral mucoid membrane. Nonicteric sclerae. LUNGS: Few scattered crepitation, decreased air entry at bases. HEART: Positive S1 and S2 with increased rate. ABDOMEN: Soft with mild generalized tenderness. No mass or organomegaly. No rebound tenderness or guarding. RECTAL: Positive tone. Vault is empty. EXTREMITIES: With slight lower extremity edematous changes. No clubbing or cyanosis. NEUROLOGIC: No reported new focal neurological deficits, sensory or motor. IMPRESSION: 1. Colon polyp diagnosed by colonoscopy with status post polypectomy, pathology report still pending . 2. Chronic renal failure on hemodialysis. 3. Known history of hypertension, hyperlipidemia, diabetes mellitus. 4. Reported history of congestive heart failure. 5. Reexacerbation of peptic ulcer disease. 6. Anemia secondary to above. SUGGESTION: 1. Continue current management. 2. Gradually advance diet. 3. Follow up on colon polyp pathology report. Panda Armstrong MD cc: 14 TT: 05/09/2016 11:07:47 Confirmation # [id number] Dictation # [id number] [email or web address]
--- NOTE | 2016-05-09 13:14 | CP.PCM.PN ---
Subjective - Date & Time of Evaluation Date of Evaluation: 05/09/16 Time of Evaluation: 12:50 - Subjective Subjective: Comfortable in bed Objective - Vital Signs/Intake and Output Vital Signs (last 24 hours): Temp Pulse Resp BP Pulse Ox 98.2 F 94 H 20 121/65 98 05/09/16 08:00 05/09/16 11:50 05/09/16 08:00 05/09/16 10:08 05/09/16 08:00 Intake and Output: 05/09/16 05/09/16 06:59 18:59 Intake Total 400 Balance 400 - Medications Medications: Current Medications Amlodipine Besylate (Norvasc) 10 mg PO DAILY [facility] Last Admin: 05/09/16 10:08 Dose: 10 mg Aspirin (Ecotrin) 81 mg PO DAILY [facility] Last Admin: 05/09/16 10:08 Dose: 81 mg Famotidine (Pepcid) 20 mg PO DAILY [facility] Last Admin: 05/09/16 10:06 Dose: 20 mg Gabapentin (Neurontin) 800 mg PO TID [facility] Heparin Sodium (Porcine) (Heparin) 5,000 units SC Q12 [facility] Last Admin: 05/09/16 10:07 Dose: 5,000 units Home Med (Atorvastatin Calcium [Atorvastatin Calcium]) 40 mg PO HS [facility] Hydralazine HCl (Apresoline) 25 mg PO TID [facility] Last Admin: 05/09/16 10:06 Dose: 25 mg Hydromorphone HCl (Dilaudid) 1 mg IVP Q4H PRN PRN Reason: Pain, moderate (4-7) Last Admin: 05/09/16 10:02 Dose: 1 mg Insulin Aspart (Novolog) [address] [facility] PRN Reason: Protocol Last Admin: 05/09/16 12:00 Dose: Not Given Insulin Human Isoph/Insulin Regular (Novolin 70/30 (70/30 Units/Ml) 10 Ml) 20 units SC BIDCC [facility] Last Admin: 05/09/16 10:14 Dose: 20 units Labetalol HCl (Trandate) 200 mg PO Q12H [facility] Last Admin: 05/09/16 05:20 Dose: 200 mg Lisinopril (Zestril) 20 mg PO DAILY [facility] Last Admin: 05/09/16 10:06 Dose: 20 mg Metoclopramide HCl (Reglan) 5 mg IVP ACHS [facility] Last Admin: 05/09/16 12:11 Dose: 5 mg Metoprolol Tartrate (Lopressor) 25 mg PO BID [facility] Last Admin: 05/09/16 10:08 Dose: 25 mg Metronidazole (Flagyl) 500 mg PO Q8 [facility] Last Admin: 05/09/16 06:30 Dose: 500 mg Ondansetron HCl (Zofran Inj) 4 mg IVP Q6 PRN PRN Reason: Nausea/Vomiting Saccharomyces Boulardii (Florastor) 250 mg PO BID [facility] Last Admin: 05/09/16 10:07 Dose: 250 mg Sucralfate (Carafate Tab) 1 gm PO BID [facility] Last Admin: 05/09/16 10:08 Dose: 1 gm - Labs Labs: 05/08/16 08:31 05/08/16 08:31 APTT 30 SECONDS (21-34) 05/07/16 08:55 - Respiratory Exam Respiratory Exam: NORMAL BREATHING PATTERN - Cardiovascular Exam Cardiovascular Exam: REGULAR RHYTHM Assessment and Plan - Assessment and Plan (Free Text) Assessment: ESRD on HD HTN IDDM, gastroparesis Abdominal pain S/P colonoscopy & resection of colon polyps Plan: BP is controlled Continue hemodialysis per schedule
[2016-05-10] MEDS: HYDROmorphone 1 mg/ml ISec IVP PRN ×4 (02:24→21:15)
--- NOTE | 2016-05-10 07:35 | CP.PCM.PN ---
Subjective - Date & Time of Evaluation Date of Evaluation: 05/10/16 Time of Evaluation: 06:55 - Subjective Subjective: PGY2 Medicine Note - Dr. Chadwick's Service: Patient seen and evaluated at bedside this AM. Patient sleeping comfortably. Upon awakening, patient says he has severe lower abdominal pain. Patient reports watery, brown diarrhea and acid reflux. Patient denies nausea and vomiting. Patient denies fever, chills, chest pain, SOB, dysuria. Objective - Vital Signs/Intake and Output Vital Signs (last 24 hours): Temp Pulse Resp BP Pulse Ox 98.1 F 87 20 161/85 H 97 05/10/16 00:12 05/10/16 00:12 05/10/16 00:12 05/10/16 00:12 05/10/16 00:12 Intake and Output: 05/10/16 05/10/16 06:59 18:59 Intake Total 860 Balance 860 - Medications Medications: Current Medications Amlodipine Besylate (Norvasc) 10 mg PO DAILY [facility] Last Admin: 05/09/16 10:08 Dose: 10 mg Aspirin (Ecotrin) 81 mg PO DAILY [facility] Last Admin: 05/09/16 10:08 Dose: 81 mg Famotidine (Pepcid) 20 mg PO DAILY [facility] Last Admin: 05/09/16 10:06 Dose: 20 mg Gabapentin (Neurontin) 300 mg PO TID [facility] Last Admin: 05/09/16 18:10 Dose: 300 mg Heparin Sodium (Porcine) (Heparin) 5,000 units SC Q12 [facility] Last Admin: 05/09/16 21:59 Dose: 5,000 units Hydralazine HCl (Apresoline) 50 mg PO Q8 [facility] Last Admin: 05/10/16 06:46 Dose: 50 mg Hydromorphone HCl (Dilaudid) 1 mg IVP Q4H PRN PRN Reason: Pain, severe (8-10) Last Admin: 05/10/16 06:48 Dose: 1 mg Insulin Aspart (Novolog) 0 unit SC ACHS [facility] PRN Reason: Protocol Last Admin: 05/09/16 23:18 Dose: Not Given Insulin Human Isoph/Insulin Regular (Novolin 70/30 (70/30 Units/Ml) 10 Ml) 20 units SC BIDCC [facility] Last Admin: 05/09/16 18:00 Dose: 20 units Labetalol HCl (Trandate) 200 mg PO Q12H [facility] Last Admin: 05/10/16 05:45 Dose: 200 mg Lisinopril (Zestril) 20 mg PO DAILY [facility] Last Admin: 05/09/16 10:06 Dose: 20 mg Metoclopramide HCl (Reglan) 5 mg IVP ACHS [facility] Last Admin: 05/09/16 22:23 Dose: 5 mg Metoprolol Tartrate (Lopressor) 25 mg PO BID [facility] Last Admin: 05/09/16 18:08 Dose: 25 mg Metronidazole (Flagyl) 500 mg PO Q8 [facility] Last Admin: 05/10/16 06:46 Dose: 500 mg Ondansetron HCl (Zofran Inj) 4 mg IVP Q6 PRN PRN Reason: Nausea/Vomiting Rosuvastatin Calcium (Crestor) 10 mg PO HS [facility] Last Admin: 05/09/16 21:59 Dose: 10 mg Saccharomyces Boulardii (Florastor) 250 mg PO BID [facility] Last Admin: 05/09/16 18:07 Dose: 250 mg Sucralfate (Carafate Tab) 1 gm PO BID [facility] Last Admin: 05/09/16 18:06 Dose: Not Given - Labs Labs: 05/08/16 08:31 05/08/16 08:31 APTT 30 SECONDS (21-34) 05/07/16 08:55 - Constitutional Appears: Non-toxic, No Acute Distress - Head Exam Head Exam: NORMAL INSPECTION - Eye Exam Eye Exam: EOMI - ENT Exam ENT Exam: Mucous Membranes Moist - Respiratory Exam Respiratory Exam: Clear to Ausculation Bilateral, NORMAL BREATHING PATTERN - Cardiovascular Exam Cardiovascular Exam: REGULAR RHYTHM, +S1, +S2. absent: Gallop, Rubs, Murmur - GI/Abdominal Exam GI & Abdominal Exam: Soft, Tenderness (lower abdomen), Normal Bowel Sounds. absent: Distended, Firm - Extremities Exam Extremities Exam: Pedal Edema (1+ pitting b/l) - Neurological Exam Neurological Exam: Alert, Awake, Oriented x3 - Psychiatric Exam Psychiatric exam: Normal Affect, Normal Mood - Skin Skin Exam: Normal Color, Warm Assessment and Plan - Assessment and Plan (Free Text) Assessment: (1) Nausea and vomiting Assessment & Plan: 05/10: continue current diet. Nausea and vomiting resolved Patient is on Zofran 4mg IVP Q6H, Carafate 1gm bid, protonix 40mg IVP Reglan 5mg IVP ACHS, Dr. Armstrong consulted, help appreciated. 1mg Dilauded Q4H prn for pain Status: Acute (2) Diarrhea Assessment & Plan: 05/10: colonoscopy: moderate nonbleeding internal hemorrhoids, two sessile polyps 10-11mm in colon and two 4-5mm polyps in transverse colon. Patient needs to repeat in 3 years. C diff negative Leukocytes negative F/U cryptosporidium, giardia lactoferrin and norovirus 05/07: Colonoscopy today, will follow up results, have ordered stool cultures. Dr. Armstrong, GI consulted, help appreciated Florastor Flagyl 500mg IVP Q8H Status: Acute (3) ESRD (end stage renal disease) on dialysis Assessment & Plan: Will continue current dialysis schedule of MWF Status: Chronic (4) DM2 (diabetes mellitus, type 2) Assessment & Plan: Continue Home insulin 70/30 20 units bid, accu checks with sliding scale insulin with low protocol ordered Status: Chronic (5) HTN (hypertension) Assessment & Plan: Increased hydralazine to 50mg PO TID Continue Lopressor 25mg bid, Zestril 20mg daily, Norvasc 10mg, Asprin 81m, Labetalol 200mg q12h Status: Chronic (6) Prophylactic measure Assessment & Plan: Protonix 40mg IVP Heparin 5000 units SC q12h Status: Acute
--- NOTE | 2016-05-10 08:03 | CON ---
DATE: 05/06/[address] Panda Armstrong to Dr. Lucero Mcgraw. I was called for GI consultation by the admitting MD. The patient is seen and fully examined on 04/15 for GI consultation as reported and requested by the admitting medical team. The entire chart is reviewed including, but not limited to, the most recent lab and radiology study results, current and previous medication lists, current and the previous medical events, allergy to medication list as well as all the available current and the previous medical record. Case discussed at length with the staff on the floor. HISTORY OF PRESENT ILLNESS: This is a 35-year-old male, known case for me from previous admissions, who was admitted to the hospital through the Emergency Room due to severe crampy lower abdominal pain , postprandial abdominal distention, recurrent nausea and vomiting with change of bowel movement habi t postdialysis with intermittent periods of mild chills but no reported fever, no chest pain or signi ficant shortness of breath. PAST MEDICAL HISTORY: Including but not limited to: 1. Diabetes mellitus. 2. Diabetic gastroparesis. 3. Peptic ulcer disease. 4. Hypertension with hyperlipidemia. 5. End-stage renal disease, on hemodialysis. 6. Reported congestive heart failure before. FAMILY HISTORY: Unknown. SOCIAL HISTORY: Positive for cigarette smoking, but no alcohol intake. CURRENT MEDICATIONS: Medication lists were reviewed. ALLERGY TO MEDICATION: List is reviewed. LABORATORY DATA: After being admitted to the hospital, the patient was found to have leukocytosis of 14.7 with increased BUN at 26, creatinine 3.1 with elevated blood glucose level to 205. Sectional abdominal and pelvic CAT scan was performed. Official report still pending at the time of the examination, but primary report showed no acute finding. PHYSICAL EXAMINATION: GENERAL: A 35-year-old male. VITAL SIGNS: Afebrile with pulse of 100, respiratory rate 20-22 with blood pressure of 196/100. HEENT: Showed pale, dry oral mucoid membrane. Nonicteric sclerae. LUNGS: A few scattered crepitations. Decreased air entry at bases. LYMPH NODES: No lymphadenitis or lymphadenopathy. HEART: Positive S1 and S2 with increased rate. ABDOMEN: Soft with diffuse tenderness, but mainly on the right lower and the left lower quadrant. RECTAL: Positive tone. Guaiac positive stool. EXTREMITIES: With mild lower extremities edematous changes. No clubbing or cyanosis. NEUROLOGIC: No reported new neurological deficit, sensory or motor. IMPRESSION: 1. Reexacerbation of peptic ulcer disease. 2. Diarrhea, infectious versus mechanical, with guaiac positive stool. Rule out pseudomembranous co litis. Rule out occult gastrointestinal malignancy, less likely. 3. Multiple past medical history including, but not limited to, end-stage renal disease, on hemodial ysis; hypertension, hyperlipidemia, diabetes mellitus with diabetic gastroparesis as well as reported congestive heart failure before. SUGGESTION: 1. Continue current management. 2. Complete stool workup. 3. Flagyl IVs 500 mg IV piggyback daily only. 4. Proton pump inhibitors. 5. Reglan IV. 6. Endoscopic evaluation of the lower GI tract when the patient is more stable clinically. Thank you for letting me participate in your patient's case management. Further recommendation and e valuation to follow. The case discussed at length with the admitting medical team. Panda Armstrong MD cc: 14 TT: 05/10/2016 08:03:00 Confirmation # [id number] Dictation # [id number] mn
[2016-05-10] MEDS: (Novolin 70/30) NPH/Regular 70/30 Units/ml 10 ml vial SC SCH ×2 (08:30→17:17)
[2016-05-10] MEDS: (Novolog) Insulin Aspart, Recombinant 100 u/ml 10 ml vial SC SCH ×4 (08:31→21:22)
--- NOTE | 2016-05-10 09:15 | PN ---
DATE: 05/08/2016 The patient feeling weak, fatigued and sleeping most of the time, gastritis. Lucero Mcgraw MD cc: [id number] TT: 05/09/2016 00:46:18 Confirmation # [id number] Dictation # [id number] 05/10/2016 08:15:11
[2016-05-10] MEDS: Saccharomyces Boulardi 250 mg Cap PO SCH ×2 (09:53→17:16)
--- NOTE | 2016-05-10 12:30 | CP.PCM.PN ---
Subjective - Date & Time of Evaluation Date of Evaluation: 05/10/16 Time of Evaluation: 12:00 - Subjective Subjective: Sitting up in bed & eating. States that he feels better Objective - Vital Signs/Intake and Output Vital Signs (last 24 hours): Temp Pulse Resp BP Pulse Ox 98.3 F 91 H 19 142/83 98 05/10/16 12:00 05/10/16 12:00 05/10/16 12:00 05/10/16 12:00 05/10/16 12:00 Intake and Output: 05/10/16 05/10/16 06:59 18:59 Intake Total 860 Balance 860 - Medications Medications: Current Medications Amlodipine Besylate (Norvasc) 10 mg PO DAILY [facility] Last Admin: 05/10/16 09:53 Dose: Not Given Aspirin (Ecotrin) 81 mg PO DAILY [facility] Last Admin: 05/10/16 09:52 Dose: Not Given Famotidine (Pepcid) 20 mg PO DAILY [facility] Last Admin: 05/09/16 10:06 Dose: 20 mg Gabapentin (Neurontin) 300 mg PO TID [facility] Last Admin: 05/10/16 09:53 Dose: Not Given Heparin Sodium (Porcine) (Heparin) 5,000 units SC Q12 [facility] Last Admin: 05/10/16 09:53 Dose: Not Given Heparin Sodium (Porcine) (Heparin) 3,700 units IVP MWF [facility] Last Admin: 05/10/16 10:49 Dose: 3,700 units Hydralazine HCl (Apresoline) 50 mg PO Q8 [facility] Last Admin: 05/10/16 06:46 Dose: 50 mg Hydromorphone HCl (Dilaudid) 1 mg IVP Q4H PRN PRN Reason: Pain, severe (8-10) Last Admin: 05/10/16 06:48 Dose: 1 mg Insulin Aspart (Novolog) 0 unit SC ACHS [facility] PRN Reason: Protocol Last Admin: 05/10/16 08:31 Dose: 2 unit Insulin Human Isoph/Insulin Regular (Novolin 70/30 (70/30 Units/Ml) 10 Ml) 20 units SC BIDCC [facility] Last Admin: 05/10/16 08:30 Dose: 20 units Labetalol HCl (Trandate) 200 mg PO Q12H [facility] Last Admin: 05/10/16 05:45 Dose: 200 mg Lisinopril (Zestril) 20 mg PO DAILY [facility] Last Admin: 05/10/16 09:53 Dose: Not Given Metoclopramide HCl (Reglan) 5 mg IVP ACHS [facility] Last Admin: 05/10/16 08:32 Dose: 5 mg Metoprolol Tartrate (Lopressor) 25 mg PO BID [facility] Last Admin: 05/10/16 09:53 Dose: Not Given Metronidazole (Flagyl) 500 mg PO Q8 [facility] Last Admin: 05/10/16 06:46 Dose: 500 mg Ondansetron HCl (Zofran Inj) 4 mg IVP Q6 PRN PRN Reason: Nausea/Vomiting Rosuvastatin Calcium (Crestor) 10 mg PO HS [facility] Last Admin: 05/09/16 21:59 Dose: 10 mg Saccharomyces Boulardii (Florastor) 250 mg PO BID [facility] Last Admin: 05/10/16 09:53 Dose: Not Given Sucralfate (Carafate Tab) 1 gm PO BID [facility] Last Admin: 05/10/16 09:52 Dose: Not Given - Labs Labs: 05/08/16 08:31 05/08/16 08:31 APTT 30 SECONDS (21-34) 05/07/16 08:55 - Respiratory Exam Additional comments: Lungs clear - Cardiovascular Exam Cardiovascular Exam: REGULAR RHYTHM - GI/Abdominal Exam GI & Abdominal Exam: Soft - Extremities Exam Additional comments: No edema Assessment and Plan - Assessment and Plan (Free Text) Assessment: ESRD on HD HTN Abdominal pain IDDM with complications Plan: Dialysis tolerated well today. Continue hemodialysis [facility]
--- NOTE | 2016-05-10 14:19 | PN ---
DATE: 05/10/2016 LOCATION: 365, bed B. This is a 35-year-old male seen and examined in rounds without significant clinical changes or report ed active bleeding recently, with a complaint again of severe lower abdominal pain of unclear etiolog y with watery bowel movement as well as nausea with persistent dyspepsia. No reported vomiting, chil ls or significant shortness of breath. The entire chart is reviewed including, but not limited to most recent lab and radiology study result s, current and previous medication list, current and previous medical events. Case discussed at [facility] with the staff on the floor. Most recent lab results showed elevated blood glucose level to 229 with leukocytosis and low hemoglob in with low albumin and low total protein. His calcium is still low at 7.2. The previous done CAT scan of the abdomen and the pelvis films and reports reviewed again. PHYSICAL EXAMINATION: GENERAL: A 35-year-old male. VITAL SIGNS: Afebrile with heart rate of 90, respiratory rate 20-22 with blood pressure of 144/80. HEENT: Showed pale, dry oral mucoid membrane. Nonicteric sclerae. LUNGS: Few scattered crepitations, decreased air entry at bases. HEART: Positive S1 and S2 with increased rate. ABDOMEN: With mild generalized tenderness with slight distention. No mass or organomegaly. No rebo und tenderness or guarding. RECTAL: The patient refused. EXTREMITIES: With mild lower extremity edematous changes. No clubbing or cyanosis. NEUROLOGIC: No reported new focal neurological deficits, sensory or motor. IMPRESSION: 1. Colon polyp removed. 2. Chronic renal failure on hemodialysis. 3. Known history of hyperlipidemia, diabetes mellitus with hypertension. 4. Reported history of congestive heart failure. 5. Anemia secondary to above. 6. ulcer disease. SUGGESTION: 1. Agree with your plan. 2. Increase the rate of Reglan IV. 3. Flagyl IV. 4. If the patient's symptoms persist, then endoscopic evaluation of the upper GI tract to be kept in mind. Panda Armstrong MD cc: 14 TT: 05/10/2016 14:18:50 Confirmation # [id number] Dictation # [id number] mn
[2016-05-10 17:26] VITALS: RESP 20
[2016-05-11 00:24] VITALS: TEMP 98.4
[2016-05-11] MEDS: HYDROmorphone 1 mg/ml ISec IVP PRN ×3 (01:24→09:58)
[2016-05-11 06:27] VITALS: PULSE 84
[2016-05-11 07:36] LABS: BASO # 0.1 K/uL (0.0-0.2); BASO % 0.8 % (0.0-2.0); EOS # 0.5 K/uL (0.0-0.7); EOS % 4.4 % (0.0-4.0); HEMATOCRIT 38.2 % (35.0-51.0); LYMPH # 1.6 K/uL (1.0-4.3); MEAN CELL VOLUME 92.3 fL (80.0-94.0); MEAN CORPUSCULAR HEMOGLOBIN 28.3 pg (27.0-31.0); MEAN CORPUSCULAR HGB CONC 30.7 g/dL (33.0-37.0); MEAN PLATELET VOLUME 8.8 fL (7.2-11.7); MONO # 1.4 K/uL (0.0-0.8); RED CELL DISTRIBUTION WIDTH 17.8 % (11.5-14.5); WHITE BLOOD COUNT 11.3 K/uL (4.8-10.8)
[2016-05-11 07:42] LABS: POTASSIUM 5.2 mmol/L (3.6-5.2)
[2016-05-11 07:44] LABS: BILIRUBIN,TOTAL 0.3 mg/dL (0.2-1.3)
[2016-05-11 07:45] LABS: ALB/GLOB RATIO 0.9 (1.0-2.1); CALCIUM 7.6 mg/dl (8.6-10.4); TOTAL PROTEIN 5.7 g/dL (6.3-8.3)
[2016-05-11 08:11] VITALS: O2SAT 97
[2016-05-11] MEDS: (Novolin 70/30) NPH/Regular 70/30 Units/ml 10 ml vial SC SCH (08:16)
[2016-05-11] MEDS: (Novolog) Insulin Aspart, Recombinant 100 u/ml 10 ml vial SC SCH ×2 (08:17→12:14)
[2016-05-11] MEDS: Saccharomyces Boulardi 250 mg Cap PO SCH (09:40)
[2016-05-11 10:13] VITALS: BP 162/84
--- NOTE | 2016-05-11 11:03 | CP.PCM.PN ---
Subjective - Date & Time of Evaluation Date of Evaluation: 05/11/16 Time of Evaluation: 07:40 - Subjective Subjective: PGY2 Medicine Note - Dr. Chadwick's Service: Patient seen and evaluated at bedside this AM. Patient sleeping comfortably. Upon awakening, patient says he is ready to go home. Patient reports continued diarrhea and abdominal pain but says it has improved. Patient denies fever, chills, chest pain, SOB, dysuria. Objective - Vital Signs/Intake and Output Vital Signs (last 24 hours): Temp Pulse Resp BP Pulse Ox 98.4 F 84 20 162/84 H 97 05/11/16 08:10 05/11/16 08:10 05/11/16 08:10 05/11/16 10:12 05/11/16 08:10 Intake and Output: 05/11/16 05/11/16 06:59 18:59 Intake Total 250 Balance 250 - Medications Medications: Current Medications Amlodipine Besylate (Norvasc) 10 mg PO DAILY [facility] Last Admin: 05/11/16 09:42 Dose: 10 mg Aspirin (Ecotrin) 81 mg PO DAILY [facility] Last Admin: 05/11/16 09:42 Dose: 81 mg Famotidine (Pepcid) 20 mg PO DAILY [facility] Last Admin: 05/11/16 09:42 Dose: 20 mg Gabapentin (Neurontin) 300 mg PO TID [facility] Last Admin: 05/11/16 09:43 Dose: 300 mg Heparin Sodium (Porcine) (Heparin) 5,000 units SC Q12 [facility] Last Admin: 05/11/16 09:43 Dose: 5,000 units Heparin Sodium (Porcine) (Heparin) 3,700 units IVP MWF [facility] Last Admin: 05/10/16 10:49 Dose: 3,700 units Hydralazine HCl (Apresoline) 50 mg PO Q8 [facility] Last Admin: 05/11/16 06:25 Dose: 50 mg Hydromorphone HCl (Dilaudid) 1 mg IVP Q4H PRN PRN Reason: Pain, severe (8-10) Last Admin: 05/11/16 09:58 Dose: 1 mg Insulin Aspart (Novolog) 0 unit SC ACHS [facility] PRN Reason: Protocol Last Admin: 05/11/16 08:17 Dose: 1 unit Insulin Human Isoph/Insulin Regular (Novolin 70/30 (70/30 Units/Ml) 10 Ml) 20 units SC BIDCC [facility] Last Admin: 05/11/16 08:16 Dose: 20 units Labetalol HCl (Trandate) 200 mg PO Q12H [facility] Last Admin: 05/11/16 04:34 Dose: 200 mg Lisinopril (Zestril) 20 mg PO DAILY [facility] Last Admin: 05/11/16 09:40 Dose: 20 mg Metoclopramide HCl (Reglan) 5 mg IVP ACHS [facility] Last Admin: 05/11/16 08:17 Dose: 5 mg Metoprolol Tartrate (Lopressor) 25 mg PO BID [facility] Last Admin: 05/11/16 10:12 Dose: 25 mg Metronidazole (Flagyl) 500 mg PO Q8 [facility] Last Admin: 05/11/16 06:35 Dose: 500 mg Ondansetron HCl (Zofran Inj) 4 mg IVP Q6 PRN PRN Reason: Nausea/Vomiting Rosuvastatin Calcium (Crestor) 10 mg PO HS [facility] Last Admin: 05/10/16 21:23 Dose: 10 mg Saccharomyces Boulardii (Florastor) 250 mg PO BID [facility] Last Admin: 05/11/16 09:40 Dose: 250 mg Sucralfate (Carafate Tab) 1 gm PO BID [facility] Last Admin: 05/11/16 09:40 Dose: 1 gm - Labs Labs: 05/11/16 07:17 05/11/16 07:17 APTT 30 SECONDS (21-34) 05/07/16 08:55 - Constitutional Appears: Non-toxic, No Acute Distress - Eye Exam Eye Exam: EOMI - ENT Exam ENT Exam: Mucous Membranes Moist - Respiratory Exam Respiratory Exam: Clear to Ausculation Bilateral, NORMAL BREATHING PATTERN. absent: Rales, Rhonchi, Wheezes - Cardiovascular Exam Cardiovascular Exam: REGULAR RHYTHM, +S1, +S2. absent: Gallop, Rubs, Murmur - GI/Abdominal Exam GI & Abdominal Exam: Soft, Tenderness, Normal Bowel Sounds. absent: Distended, Firm - Extremities Exam Extremities Exam: absent: Pedal Edema - Neurological Exam Neurological Exam: Alert, Oriented x3 - Psychiatric Exam Psychiatric exam: Normal Affect, Normal Mood - Skin Skin Exam: Normal Color, Warm Assessment and Plan - Assessment and Plan (Free Text) Assessment: (1) Nausea and vomiting Assessment & Plan: 05/11: resolved. D/C home 05/10: continue current diet. Nausea and vomiting resolved Patient is on Zofran 4mg IVP Q6H, Carafate 1gm bid, protonix 40mg IVP Reglan 5mg IVP ACHS, Dr. Armstrong consulted, help appreciated. 1mg Dilauded Q4H prn for pain Status: Acute (2) Diarrhea Assessment & Plan: 05/11: D/C home 05/10: colonoscopy: moderate nonbleeding internal hemorrhoids, two sessile polyps 10-11mm in colon and two 4-5mm polyps in transverse colon. Patient needs to repeat in 3 years. C diff negative Leukocytes negative F/U cryptosporidium, giardia lactoferrin and norovirus 05/07: Colonoscopy today, will follow up results, have ordered stool cultures. Dr. Armstrong, GI consulted, help appreciated Florastor Flagyl 500mg IVP Q8H Status: Acute (3) ESRD (end stage renal disease) on dialysis Assessment & Plan: Will continue current dialysis schedule of MWF Status: Chronic (4) DM2 (diabetes mellitus, type 2) Assessment & Plan: Continue Home insulin 70/30 20 units bid, accu checks with sliding scale insulin with low protocol ordered Status: Chronic (5) HTN (hypertension) Assessment & Plan: Increased hydralazine to 50mg PO TID - patient given script for this Continue Lopressor 25mg bid, Zestril 20mg daily, Norvasc 10mg, Asprin 81m, Labetalol 200mg q12h Status: Chronic (6) Prophylactic measure Assessment & Plan: Protonix 40mg IVP Heparin 5000 units SC q12h Status: Acute
--- NOTE | 2016-05-11 12:59 | CP.PCM.PN ---
Subjective - Date & Time of Evaluation Date of Evaluation: 05/11/16 Time of Evaluation: 10:35 - Subjective Subjective: Feels better today Tolerating diet better Objective - Vital Signs/Intake and Output Vital Signs (last 24 hours): Temp Pulse Resp BP Pulse Ox 98.4 F 84 20 162/84 H 97 05/11/16 08:10 05/11/16 08:10 05/11/16 08:10 05/11/16 10:12 05/11/16 08:10 Intake and Output: 05/11/16 05/11/16 06:59 18:59 Intake Total 250 Balance 250 - Medications Medications: Current Medications Amlodipine Besylate (Norvasc) 10 mg PO DAILY [facility] Last Admin: 05/11/16 09:42 Dose: 10 mg Aspirin (Ecotrin) 81 mg PO DAILY [facility] Last Admin: 05/11/16 09:42 Dose: 81 mg Famotidine (Pepcid) 20 mg PO DAILY [facility] Last Admin: 05/11/16 09:42 Dose: 20 mg Gabapentin (Neurontin) 300 mg PO TID [facility] Last Admin: 05/11/16 09:43 Dose: 300 mg Heparin Sodium (Porcine) (Heparin) 5,000 units SC Q12 [facility] Last Admin: 05/11/16 09:43 Dose: 5,000 units Heparin Sodium (Porcine) (Heparin) 3,700 units IVP MWF [facility] Last Admin: 05/10/16 10:49 Dose: 3,700 units Hydralazine HCl (Apresoline) 50 mg PO Q8 [facility] Last Admin: 05/11/16 06:25 Dose: 50 mg Hydromorphone HCl (Dilaudid) 1 mg IVP Q4H PRN PRN Reason: Pain, severe (8-10) Last Admin: 05/11/16 09:58 Dose: 1 mg Insulin Aspart (Novolog) 0 unit SC ACHS [facility] PRN Reason: Protocol Last Admin: 05/11/16 12:14 Dose: 4 unit Insulin Human Isoph/Insulin Regular (Novolin 70/30 (70/30 Units/Ml) 10 Ml) 20 units SC BIDCC [facility] Last Admin: 05/11/16 08:16 Dose: 20 units Labetalol HCl (Trandate) 200 mg PO Q12H [facility] Last Admin: 05/11/16 04:34 Dose: 200 mg Lisinopril (Zestril) 20 mg PO DAILY [facility] Last Admin: 05/11/16 09:40 Dose: 20 mg Metoclopramide HCl (Reglan) 5 mg IVP ACHS [facility] Last Admin: 05/11/16 12:17 Dose: 5 mg Metoprolol Tartrate (Lopressor) 25 mg PO BID [facility] Last Admin: 05/11/16 10:12 Dose: 25 mg Metronidazole (Flagyl) 500 mg PO Q8 [facility] Last Admin: 05/11/16 06:35 Dose: 500 mg Ondansetron HCl (Zofran Inj) 4 mg IVP Q6 PRN PRN Reason: Nausea/Vomiting Rosuvastatin Calcium (Crestor) 10 mg PO HS [facility] Last Admin: 05/10/16 21:23 Dose: 10 mg Saccharomyces Boulardii (Florastor) 250 mg PO BID [facility] Last Admin: 05/11/16 09:40 Dose: 250 mg Sucralfate (Carafate Tab) 1 gm PO BID [facility] Last Admin: 05/11/16 09:40 Dose: 1 gm - Labs Labs: 05/11/16 07:17 05/11/16 07:17 APTT 30 SECONDS (21-34) 05/07/16 08:55 - Respiratory Exam Respiratory Exam: NORMAL BREATHING PATTERN - Cardiovascular Exam Cardiovascular Exam: REGULAR RHYTHM - Extremities Exam Additional comments: No edema Assessment and Plan - Assessment and Plan (Free Text) Assessment: ESRD on HD HTN IDDNM Abdominal pain Plan: Stable on dialysis. Continue HD per schedule BP control improved
--- NOTE | 2016-05-11 15:05 | PCM.HF ---
Heart Failure Core Measure - Heart Failure Ejection Fraction: 40 % or Greater (EF 60-65%) DANDRE Inhibitor Prescribed: Yes Beta-Cynthia Prescribed: Metoprolol Succinate Angiotensin II Receptor Cynthia Prescribed: No Contraindication/Reason for not providing: on dandre AnticoagulationTherapy for Atrial Fibrillation/Atrialflutter: No Contraindication/Reason for not providing: no afib Aldosterone Antagonist Prescribed: Yes Hydralazine Nitrate Prescribed: Yes Implantable Cardioverter Defibrillator Therapy: No Contraindication/Reason for not providing: EF >40% Cardiac Resynchronization Therapy Prescribed: No Contraindication/Reason for not providing: not indicated - Follow up Will be discharged to: Home Follow Up Date (must be within 7 days from discharge): 05/17/16 Follow Up Time: 09:00
--- NOTE | 2016-05-12 07:49 | DS ---
The patient admitted to the hospital with a chief complaint of abdominal pain, nausea, vomiting, weak ness. The patient has renal failure, diabetes, gastritis, gastroparesis. The patient bedrest, IV fl uids, pain medication, GI consult, endoscopy, colonoscopy. The patient discharged to be followed as a n outpatient. Lucero Mcgraw MD cc: [id number] TT: 05/12/2016 03:27:31 tn 05/12/2016 06:49:13
== END 2016-05-11 13:43 | disposition home or self-care (01) | DRG 182 ==
LOC: C.ER 23:03 → C.3T 05-06 02:02
PROVIDERS: ADMIT Internal Medicine Pulmonary Disease; ATTEND Internal Medicine Pulmonary Disease
PROC: 0DBE8ZX Excision of Large Intestine, Via Natural or Artificial Opening Endoscopic, Diagnostic (ICD-10-PCS; 2016-05-07)
PROC: 5A1D60Z (ICD-10-PCS; 2016-05-07)
PROC: 0DBL8ZX Excision of Transverse Colon, Via Natural or Artificial Opening Endoscopic, Diagnostic (ICD-10-PCS; principal; 2016-05-07 11:29)
DX: K58.9 Irritable bowel syndrome, unspecified (principal); E11.43 Type 2 diabetes mellitus with diabetic autonomic (poly)neuropathy; I13.2 Hypertensive heart and chronic kidney disease with heart failure and with stage 5 chronic kidney disease, or end stage renal disease; E11.22 Type 2 diabetes mellitus with diabetic chronic kidney disease; N18.6 End stage renal disease; I50.9 Heart failure, unspecified; K63.5 Polyp of colon; K29.70 Gastritis, unspecified, without bleeding; K31.84 Gastroparesis; D12.3 Benign neoplasm of transverse colon; K64.8 Other hemorrhoids; D72.829 Elevated white blood cell count, unspecified; E78.5 Hyperlipidemia, unspecified; Z79.4 Long term (current) use of insulin; D64.9 Anemia, unspecified

== ENCOUNTER 2016-05-14 09:20 | Inpatient (IN) | payer MEDICARE, MEDICAID ==
[2016-05-14 09:20] VITALS: BMI 27.0
[2016-05-14] MEDS ORDERED: Morphine 4 MG/ML VIAL ONE ×2 (10:46→13:56)
[2016-05-14 10:52] LABS: BASO # 0.2 K/uL (0.0-0.2); BASO % 1.3 % (0.0-2.0); EOS # 0.4 K/uL (0.0-0.7); EOS % 2.4 % (0.0-4.0); HEMATOCRIT 38.3 % (35.0-51.0); LYMPH # 1.1 K/uL (1.0-4.3); LYMPH % 6.9 % (20.0-40.0); MEAN CORPUSCULAR HGB CONC 31.1 g/dL (33.0-37.0); MONO # 1.5 K/uL (0.0-0.8); MONO % 9.2 % (0.0-10.0); PLATELET COUNT 278 K/uL (130-400); RED CELL DISTRIBUTION WIDTH 17.2 % (11.5-14.5); WHITE BLOOD COUNT 16.2 K/uL (4.8-10.8)
[2016-05-14 10:53] LABS: MEAN CELL VOLUME 90.2 fL (80.0-94.0)
[2016-05-14 11:12] LABS: EOSINOPHIL 1 % (0-4); NEUTROPHIL 83 % (50-75); TOTAL CELLS COUNTED 100
[2016-05-14 11:13] LABS: LARGE PLATELETS PRESENT
--- NOTE | 2016-05-14 11:20 | RAD ---
PROCEDURE: CHEST RADIOGRAPH, 1 VIEW HISTORY: Shortness of breath COMPARISON: 04/13/2016 FINDINGS: The right double lumen dual lead venous catheter terminates in the right atrium. LUNGS: There is pulmonary venous congestion. There is no focal consolidation PLEURA: No pneumothorax or pleural fluid seen. CARDIOVASCULAR: Normal. OSSEOUS STRUCTURES: No significant abnormalities. VISUALIZED UPPER ABDOMEN: Normal. OTHER FINDINGS: None. IMPRESSION: Pulmonary venous congestion. No focal consolidation. Right-sided double lumen dialysis catheter terminates in the right atrium.
[2016-05-14 11:58] LABS: POTASSIUM 5.7 mmol/L (3.6-5.2)
[2016-05-14 12:01] LABS: ALB/GLOB RATIO 0.8 (1.0-2.1); BILIRUBIN,TOTAL 0.3 mg/dL (0.2-1.3); CALCIUM 7.9 mg/dl (8.6-10.4); TOTAL PROTEIN 5.8 g/dL (6.3-8.3)
--- NOTE | 2016-05-14 12:14 | C.PDOC ---
History Of Present Illness 35-year-old male, PMHx of ESRD (on HDM/Tue/Tue), BIBA for evaluation of generalized weakness for the past 1 day, associated with intermittent abdominal pain. Patient notes associated non-bloody/watery diarrhea for the past 1 month. He also c/o SOB/orthopnea. Patient denies chest pain, fever, cough, chest pain , dizziness, nausea/vomiting. He is due or HD today. Time Seen by Provider: 05/14/16 09:39 Chief Complaint (Nursing): Weakness/Neurological Deficit History Per: Patient History/Exam Limitations: no limitations Onset/Duration Of Symptoms: Days Current Symptoms Are (Timing): Still Present Past Medical History Reviewed: Historical Data, Nursing Documentation, Vital Signs Vital Signs: Last Vital Signs Temp 98.3 F 05/17/16 12:40 Pulse 95 H 05/17/16 12:40 Resp 16 05/17/16 12:40 BP 160/80 H 05/17/16 14:00 Pulse Ox 98 05/17/16 12:40 - Medical History PMH: CHF, Diabetes, Gastritis, HTN, Hypercholesterolemia, End Stage Renal Disease, Chronic Kidney Disease - [facility] Procedures BYPASS LEFT BRACHIAL ARTERY TO UPPER ARM VEIN, OPEN APPROACH (02/17/16) EXCISION OF ASCENDING COLON, ENDO, DIAGN (12/19/15) EXCISION OF DUODENUM, ENDO, DIAGN (03/25/16) EXCISION OF LARGE INTESTINE, ENDO, DIAGN (05/06/16) EXCISION OF MIDDLE ESOPHAGUS, ENDO, DIAGN (03/25/16) EXCISION OF STOMACH, ENDO, DIAGN (04/01/16) EXCISION OF TRANSVERSE COLON, ENDO, DIAGN (05/06/16) INSERTION OF INFUSION DEV INTO SUP VENA CAVA, PERC APPROACH (12/19/15) PERFORMANCE OF URINARY FILTRATION, MULTIPLE (05/06/16) PERFORMANCE OF URINARY FILTRATION, SINGLE (05/14/16) ULTRASONOGRAPHY OF SUPERIOR VENA CAVA, GUIDANCE (12/19/15) Family History: States: No Known Family Hx - Social History Hx Tobacco Use: Yes (some days) Hx Alcohol Use: No Hx Substance Use: No - Immunization History Hx Tetanus Toxoid Vaccination: Yes Hx Influenza Vaccination: Yes Hx Pneumococcal Vaccination: Yes Review Of Systems Except As Marked, All Systems Reviewed And Found Negative. Constitutional: Positive for: Weakness. Negative for: Fever, Chills Cardiovascular: Positive for: Orthopnea. Negative for: Chest Pain Respiratory: Positive for: Shortness of Breath. Negative for: Cough Gastrointestinal: Positive for: Abdominal Pain, Diarrhea. Negative for: Nausea , Vomiting Musculoskeletal: Negative for: Back Pain Skin: Negative for: Rash Neurological: Negative for: Headache, Dizziness Physical Exam - Physical Exam Appears: Non-toxic, Other (Mild to moderate painful distress) Skin: Warm, Dry, No Rash Head: Normacephalic Eye(s): bilateral: Normal Inspection Oral Mucosa: Moist Neck: Normal, Normal ROM Chest: Other (Port: right-upper chest.) Cardiovascular: Rhythm Regular Respiratory: No Accessory Muscle Use, Rales (mild rales at B/L bases), No Rhonchi, No Wheezing Gastrointestinal/Abdominal: Bowel Sounds, Soft, Tenderness (diffuse), No Guarding, No Rebound Extremity: Normal ROM, Pedal Edema (2+ pitting B/L), Other (AV fistula w/ palpable thrill- left arm.) Neurological/Psych: Oriented x3 ED Course And Treatment - Laboratory Results Result Diagrams: 05/17/16 10:30 05/17/16 09:42 ECG: Interpreted By Me, Viewed By Me (NSR 96 bpm, normal axis, no acute ST/T wave changes) O2 Sat by Pulse Oximetry: 100 (RA) Pulse Ox Interpretation: Normal - Other Rad cxr X-Ray: Viewed By Me, Read By Radiologist Interpretation: Accession No. : [id number]. Patient Name / ID : ROSE MARY BARROS / [id number]. Exam Date : 05/14/2016 09:48:00 ( Approved ). Study Comment : Sex / Age : M / 35Y. Creator : Edith Zheng MD. Dictator : Edith Zheng MD. Gold Leaf Roller : Donkey Engine Firer/Fireman : Edith Zheng MD. Approver2 : Report Date : 05/14/2016 11:19:04. My Comment : . PROCEDURE: CHEST RADIOGRAPH, 1 VIEW. HISTORY: Shortness of breath. COMPARISON: 04/13/2016. FINDINGS: The right double lumen dual lead venous catheter terminates in the right atrium. LUNGS: There is pulmonary venous congestion. There is no focal consolidation. PLEURA: No pneumothorax or pleural fluid seen. CARDIOVASCULAR : Normal. OSSEOUS STRUCTURES: No significant abnormalities. VISUALIZED UPPER ABDOMEN: Normal. OTHER FINDINGS: None. IMPRESSION: Pulmonary venous congestion. No focal consolidation. Right-sided double lumen dialysis catheter terminates in the right atrium. Progress Note: Blood work, EKG, CXR ordered and reviewed. Patient given IV morphine for pain, IV zofran, IV Cipro + Flagyl for persistent diarrhea. Consult entered for patien't nephrolgist, patient will need hemodialysis today. - Physician Consult Information Physician Contacted: Lucero Chadwick Outcome Of Conversation: Connie Chadwick, he agrees with admission Disposition - Disposition Disposition: HOSPITALIZED Disposition Time: 13:45 Condition: STABLE - Clinical Impression Clinical Impression: CHF (congestive heart failure), Fluid overload, Diarrhea, Colitis, Leukocytosis , ESRD (end stage renal disease) on dialysis - Scribe Statement The provider has reviewed the documentation as recorded by the Scribe Morro Guardado All medical record entries made by the Scribe were at my direction and personally dictated by me. I have reviewed the chart and agree that the record accurately reflects my personal performance of the history, physical exam, medical decision making, and the department course for this patient. I have also personally directed, reviewed, and agree with the discharge instructions and disposition. Decision To Admit - Pt Status Changed To: Hospital Disposition Of: Inpatient - Admit Certification Admit to Inpatient:: After my assessment, the patient will require hospitalization for at least two midnights. This is because of the severity of symptoms shown, intensity of services needed, and/or the medical risk in this patient being treated as an outpatient. - InPatient: Physician Admission Certification: I certify that this patient requires 2 or more midnights of care for the following reason:: see notes - . Bed Request Type: Telemetry Admitting Physician: Lucero Chadwick Patient Diagnosis: CHF (congestive heart failure), Fluid overload, Diarrhea, Colitis, Leukocytosis , ESRD (end stage renal disease) on dialysis
[2016-05-14 12:50] LABS: TROPONIN I 0.032 ng/mL (0.00-0.120)
[2016-05-14] MEDS ORDERED: Ciprofloxacin 400mg/200ml D5W 200 ML IV STA (13:46)
[2016-05-14] MEDS ORDERED: metroNIDAZOLE IV 500 mg/100 ml 100 ML ONE (13:57)
[2016-05-14] MEDS ORDERED: Ciprofloxacin 400mg/200ml D5W 200 ML IVPB ONE (13:57)
[2016-05-14] MEDS ORDERED: metroNIDAZOLE IV 500 mg/100 ml 100 ML IV SCH (14:00)
[2016-05-14] MEDS ORDERED: metroNIDAZOLE IV 500 mg/100 ml 100 ML IV STA (14:11)
[2016-05-14] MEDS ORDERED: HYDROmorphone 0.5 mg/0.5 ml ISec IVP STA (16:11)
[2016-05-14] MEDS ORDERED: Pantoprazole 40 mg EC Tab PO SCH (17:00)
[2016-05-14] MEDS ORDERED: metroNIDAZOLE IV 500 mg/100 ml 250 MG in Premixed IV 1 EA IVPB SCH (17:00)
--- NOTE | 2016-05-14 17:03 | CP.PCM.PN ---
Subjective - Date & Time of Evaluation Date of Evaluation: 05/14/16 Time of Evaluation: 16:00 - Subjective Subjective: Dr. Chadwick service: CC: nausea/vomiting/diarrhea HPI: Patient is a 35 year old male with a history of DM, gastroporesis, ESRD on dialysis MWF. Patient is here comlaining of several eipsodes of nausea, vomiting, and diarrhea. He also complains of diffuse abdominal pain as well. He also denies fever, chills, chest pain, palpitatoins, dysuria, hematuria, joint pain, shortness of breath but admits to palpitations. Patient admits to missing dialysis today. He is asking for pain medication. Objective - Vital Signs/Intake and Output Vital Signs (last 24 hours): Temp Pulse Resp BP Pulse Ox 98.6 F 86 16 149/86 97 05/14/16 17:01 05/14/16 17:01 05/14/16 17:01 05/14/16 17:01 05/14/16 17:01 - Medications Medications: Current Medications Amlodipine Besylate (Norvasc) 10 mg PO DAILY [facility] Gabapentin (Neurontin) 800 mg PO TID [facility] Heparin Sodium (Porcine) (Heparin) 5,000 units SC Q12 [facility] Hydralazine HCl (Apresoline) 50 mg PO Q8 [facility] Hydromorphone HCl (Dilaudid) 0.5 mg IVP Q4H PRN PRN Reason: Pain, severe (8-10) Metronidazole 250 mg/ (Miscellaneous) 50 mls @ 100 mls/hr IVPB Q8 [facility] Labetalol HCl (Trandate) 200 mg PO Q12H [facility] Lisinopril (Zestril) 10 mg PO DAILY [facility] Pantoprazole Sodium (Protonix Ec Tab) 40 mg PO DAILY [facility] Sucralfate (Carafate Tab) 1 gm PO BID [facility] - Constitutional Appears: Toxic, No Acute Distress, Chronically Ill - Head Exam Head Exam: NORMAL INSPECTION - Eye Exam Eye Exam: Normal appearance Pupil Exam: NORMAL ACCOMODATION - ENT Exam ENT Exam: Normal Exam - Respiratory Exam Respiratory Exam: Clear to Ausculation Bilateral. absent: Rales, Rhonchi, Wheezes - Cardiovascular Exam Cardiovascular Exam: REGULAR RHYTHM, RRR, +S1, +S2. absent: Gallop, Rubs - GI/Abdominal Exam GI & Abdominal Exam: Soft, Normal Bowel Sounds. absent: Tenderness - Extremities Exam Extremities Exam: Normal Inspection. absent: Pedal Edema - Psychiatric Exam Psychiatric exam: Flat Affect - Skin Skin Exam: Dry, Pallor, Warm Assessment and Plan (1) Diarrhea Assessment & Plan: Patient admitted to [facility] regular floor. Patient on IV fluids Flagyl 500mg Q8h Cipro IV, Carafate. Status: Acute (2) Nausea and vomiting Assessment & Plan: Reglan 10mg Q6H Status: Acute (3) Hyponatremia Assessment & Plan: Na 126 Status: Acute (4) Hyperkalemia Assessment & Plan: K 5.6 Status: Acute (5) HTN (hypertension) Assessment & Plan: continue home medication Status: Chronic (6) ESRD (end stage renal disease) on dialysis Assessment & Plan: Nephro consulted for dialysis Status: Chronic (7) DVT prophylaxis Assessment & Plan: heparin 5000 units sc q12h protonix 20mg Status: Acute
[2016-05-14] MEDS ORDERED: HYDROmorphone 1 mg/ml ISec ONE (17:13)
--- NOTE | 2016-05-14 19:22 | CP.PCM.CON ---
History of Present Illness - History of Present Illness History of Present Illness: 35-year-old male, PMHx includes ESRD (Mon/Tue/Fri), presents to the emergency department BIBA, with complaints of generalized weakness for the past day, which is associated with intermittent abdominal pain. Patient notes associated non-bloody/watery diarrhea for the past month. Pt admits to orthopnea. Denies chest pain, fevers, dizziness, nausea/vomiting or any other associated symptoms. Pending dialysis today. sepsis to be ruled out [facility] ct abd / gi eval - Medical History PMH: CHF, Diabetes, Gastritis, HTN, Hypercholesterolemia, End Stage Renal Disease, Chronic Kidney Disease Denies: HIV - [facility] Procedures BYPASS LEFT BRACHIAL ARTERY TO UPPER ARM VEIN, OPEN APPROACH (02/17/16) EXCISION OF ASCENDING COLON, ENDO, DIAGN (12/19/15) EXCISION OF DUODENUM, ENDO, DIAGN (03/25/16) EXCISION OF LARGE INTESTINE, ENDO, DIAGN (05/06/16) EXCISION OF MIDDLE ESOPHAGUS, ENDO, DIAGN (03/25/16) EXCISION OF STOMACH, ENDO, DIAGN (04/01/16) EXCISION OF TRANSVERSE COLON, ENDO, DIAGN (05/06/16) INSERTION OF INFUSION DEV INTO SUP VENA CAVA, PERC APPROACH (12/19/15) PERFORMANCE OF URINARY FILTRATION, MULTIPLE (05/06/16) PERFORMANCE OF URINARY FILTRATION, SINGLE (04/01/16) ULTRASONOGRAPHY OF SUPERIOR VENA CAVA, GUIDANCE (12/19/15) Review of Systems - Constitutional Constitutional: As Per HPI - EENT Eyes: absent: As Per HPI, Blind Spots, Blurred Vision, Change in Vision, Decreased Night Vision, Diplopia, Discharge, Dry Eye, Exophthalmos, Floaters, Irritation, Itchy Eyes, Loss of Peripheral Vision, Pain, Photophobia, Requires Corrective Lenses, Sees Flashes, Spots in Vision, Tunnel Vision, Other Visual Disturbances, Loss of Vision, Other Ears: absent: As Per HPI, Decreased Hearing, Ear Discharge, Ear Pain, Tinnitus, Abnormal Hearing, Disequilibrium, Dizziness, Other Nose/Mouth/Throat: absent: As Per HPI, Epistaxis, Nasal Congestion, Nasal Discharge, Nasal Obstruction, Nasal Trauma, Nose Pain, Post Nasal Drip, Sinus Pain, Sinus Pressure, Bleeding Gums, Change in Voice, Dental Pain, Dry Mouth, Dysphagia, Halitosis, Hoarsness, Lip Swelling, Mouth Lesions, Mouth Pain, Odynophagia, Sore Throat, Throat Swelling, Tongue Swelling, Facial Pain, Neck Pain, Neck Mass, Other - Cardiovascular Cardiovascular: absent: As Per HPI, Acrocyanosis, Chest Pain, Chest Pain at Rest , Chest Pain with Activity, Claudication, Diaphoresis, Dyspnea, Dyspnea on Exertion, Edema, Irregular Heart Rhythm, Pain Radiating to Arm/Neck/Jaw, Leg Edema, Leg Ulcers, Lightheadedness, Orthopnea, Palpitations, Paroxysmal Nocturnal Dyspnea, Pedal Edema, Radiating Pain, Rapid Heart Rate, Slow Heart Rate, Syncope, Other - Respiratory Respiratory: absent: As Per HPI, Cough, Dyspnea, Hemoptysis, Dyspnea on Exertion , Wheezing, Snoring, Stridor, Pain on Inspiration, Chest Congestion, Excessive Mucous Production, Change in Mucous Color, Pain with Coughing, Other - Gastrointestinal Gastrointestinal: As Per HPI, Abdominal Pain - Genitourinary Genitourinary: absent: As Per HPI, Change in Urinary Stream, Difficulty Urinating, Dysuria, Flank Pain, Hematuria, Pyuria, Nocturia, Urinary Incontinence, Urinary Frequency, Urinary Hesitance, Urinary Urgency, Voiding Freq/Small Amts, Freq UTI, Hx Renal/Bladder Calculi, Hx /Renal Surgery, Bladder Distension, Other - Musculoskeletal Musculoskeletal: absent: As Per HPI, Abnormal Gait, Arthralgias, Atrophy, Back Pain, Deformity, Joint Swelling, Limited Range of Motion, Loss of Height, Muscle Cramps, Muscle Weakness, Myalgias, Neck Pain, Numbness, Radiating Pain into Limb, Stiffness, Tingling, Other - Integumentary Integumentary: absent: As Per HPI, Acne, Alopecia, Bleeding Lesions, Change in Hair, Change in Nails, Change in Pigmentation, Changing Lesions, Dry Skin, Erythema, Furuncle, Hirsutism, Lesions, New Lesions, Non-Healing Lesions, Photosensitivity, Pruritus, Rash, Skin Pain, Skin Ulcer, Sores, Striae, Swelling , Unusual Bruising, Wounds, Jaundice, Other - Neurological Neurological: absent: As Per HPI, Abnormal Gait, Abnormal Hearing, Abnormal Movements, Abnormal Speech, Behavioral Changes, Burning Sensations, Confusion, Convulsions, Disequilibrium, Dizziness, Numbness, Focal Weakness, Frequent Falls , Headaches, Lack of Coordination, Loss of Vision, Memory Loss, Paresthesias, Radicular Pain, Restless Legs, Sensory Deficit, Syncope, Tingling, Tremor, Vertigo, Weakness, Other Visual Disturbances, Other - Psychiatric Psychiatric: absent: As Per HPI, Abnormal Sleep Pattern, Anhedonia, Anxiety, Auditory Hallucinations, Behavioral Changes, Change in Appetite, Change in Libido, Confusion, Depression, Difficulty Concentrating, Hallucinations, Homicidal Ideation, Hopelessness, Irritability, Memory Loss, Mood Swings, Panic Attacks, Paranoia, Suicidal Ideation, Visual Hallucinations, Tactile Hallucinations, Other - Endocrine Endocrine: absent: As Per HPI, Change in Body Appearance, Change in Libido, Cold Intolorance, Deepening of Voice, Excessive Sweating, Fatigue, Flushing, Heat Intolorance, Increase in Ring/Shoe/Hat Size, Palpitations, Polydipsia, Polyphagia, Polyuria, Other - Hematologic/Lymphatic Hematologic: absent: As Per HPI, Easy Bleeding, Easy Bruising, Lymphadenopathy, Other Past Patient History - Infectious Disease Hx of Infectious Diseases: None - Past Medical History & Family History Past Medical History?: Yes - Past Social History Smoking Status: Current Some Days Smoker - CARDIAC Hx Congestive Heart Failure: Yes Hx Hypercholesterolemia: Yes Hx Hypertension: Yes - PULMONARY Hx Respiratory Disorders: No - NEUROLOGICAL Hx Neurological Disorder: No - HEENT Hx HEENT Problems: Yes (cataracts RIGHT) Hx Cataracts: Yes - RENAL Hx Chronic Kidney Disease: Yes - ENDOCRINE/METABOLIC Hx Endocrine Disorders: Yes - HEMATOLOGICAL/ONCOLOGICAL Hx Human Immunodeficiency Virus (HIV): No - INTEGUMENTARY Hx Dermatological Problems: No - MUSCULOSKELETAL/RHEUMATOLOGICAL Hx Falls: No - GASTROINTESTINAL Hx Gastritis: Yes - GENITOURINARY/GYNECOLOGICAL Hx Genitourinary Disorders: No - PSYCHIATRIC Hx Substance Use: No - SURGICAL HISTORY Other/Comment: RT.PERMACATH INSERTION 12/30. LT.AV SHUNT CREATION 02/17/16. UNDESCENDED TESTES LT. REMOVED DURING CHILDHOOD - ANESTHESIA Hx Anesthesia: Yes Hx Anesthesia Reactions: No Hx Malignant Hyperthermia: No Meds Allergies/Adverse Reactions: Allergies Allergy/AdvReac Type Severity Reaction Status Date / Time No Known Allergies Allergy Verified 02/17/16 02:41 - Medications Medications: Current Medications Amlodipine Besylate (Norvasc) 10 mg PO DAILY [facility] Gabapentin (Neurontin) 800 mg PO TID [facility] Heparin Sodium (Porcine) (Heparin) 5,000 units SC Q12 [facility] Hydralazine HCl (Apresoline) 50 mg PO Q8 [facility] Hydromorphone HCl (Dilaudid) 0.5 mg IVP Q4H PRN PRN Reason: Pain, severe (8-10) Metronidazole (Flagyl) 50 mls @ 60 mls/hr IVPB Q8H [facility] Stop: 05/19/16 23:31 Labetalol HCl (Trandate) 200 mg PO Q12H [facility] Lisinopril (Zestril) 10 mg PO DAILY [facility] Pantoprazole Sodium (Protonix Ec Tab) 40 mg PO DAILY [facility] Sucralfate (Carafate Tab) 1 gm PO BID [facility] Physical Exam - Constitutional Appears: Non-toxic - Head Exam Head Exam: ATRAUMATIC, NORMAL INSPECTION, NORMOCEPHALIC - Eye Exam Eye Exam: PERRL. absent: Scleral icterus - ENT Exam ENT Exam: Mucous Membranes Dry, Normal External Ear Exam, Normal Oropharynx - Neck Exam Neck exam: Negative for: Lymphadenopathy - Respiratory Exam Respiratory Exam: Decreased Breath Sounds, Clear to Auscultation Bilateral - Cardiovascular Exam Cardiovascular Exam: REGULAR RHYTHM, +S1, +S2 - GI/Abdominal Exam GI & Abdominal Exam: Diminished Bowel Sounds, Distended, Guarding, Tenderness. absent: Rigid, Soft - Rectal Exam Rectal Exam: Deferred - Exam Exam: NORMAL INSPECTION - Extremities Exam Extremities exam: Positive for: pedal pulses present. Negative for: calf tenderness, pedal edema, tenderness - Back Exam Back exam: absent: CVA tenderness (L), CVA tenderness (R) - Neurological Exam Neurological exam: Alert, CN II-XII Intact, Oriented x3, Reflexes Normal - Psychiatric Exam Psychiatric exam: Normal Mood - Skin Skin Exam: Dry, Intact Results - Vital Signs Recent Vital Signs: Last Vital Signs Temp 98.6 F 05/14/16 17:01 Pulse 86 05/14/16 17:01 Resp 16 05/14/16 17:01 BP 149/86 05/14/16 17:01 Pulse Ox 97 05/14/16 17:01 - Labs Result Diagrams: 05/14/16 10:45 05/15/16 07:13 Assessment & Plan (1) GI bleed Status: Acute (2) Gastroparesis due to secondary diabetes Status: Acute (3) Hyperkalemia Status: Acute (4) Hyponatremia Status: Acute (5) Nausea and vomiting Status: Acute (6) Abdominal pain Status: Acute (7) Acute renal failure Status: Acute (8) Anemia Status: Acute
[2016-05-14] MEDS ORDERED: Vancomycin 1 gm/NS 200 ml 200 ML IVPB ONE (21:00)
[2016-05-14] MEDS: HYDROmorphone 0.5 mg/0.5 ml ISec IVP PRN (23:06)
[2016-05-14] MEDS: Ciprofloxacin 400mg/200ml D5W 200 ML IVPB SCH (23:22)
[2016-05-15] MEDS: metroNIDAZOLE IV 250mg/50 ml 50 ML IVPB SCH ×4 (00:59→23:41)
[2016-05-15] MEDS: HYDROmorphone 0.5 mg/0.5 ml ISec IVP PRN ×3 (03:40→12:56)
[2016-05-15 07:39] LABS: POTASSIUM 5.2 mmol/L (3.6-5.2)
[2016-05-15 07:41] LABS: BILIRUBIN,TOTAL 0.2 mg/dL (0.2-1.3)
[2016-05-15 07:42] LABS: ALB/GLOB RATIO 0.9 (1.0-2.1); CALCIUM 7.8 mg/dl (8.6-10.4); TOTAL PROTEIN 5.6 g/dL (6.3-8.3)
--- NOTE | 2016-05-15 09:32 | CP.PCM.PN ---
Subjective - Date & Time of Evaluation Date of Evaluation: 05/15/16 Time of Evaluation: 09:10 - Subjective Subjective: 35 y/o male with ESRD on maintenance HD ,HTN,IDDM presented to ER yesterday c/o abdominal pain, N&V. Pt had missed his scheduled dialysis treatment yesterday & was dialysed yesterday evening. Objective - Vital Signs/Intake and Output Vital Signs (last 24 hours): Temp Pulse Resp BP Pulse Ox 98.5 F 95 H 20 160/89 H 96 05/15/16 08:01 05/15/16 08:01 05/15/16 08:01 05/15/16 08:01 05/15/16 08:01 Intake and Output: 05/15/16 05/15/16 06:59 18:59 Intake Total 200 Balance 200 - Medications Medications: Current Medications Amlodipine Besylate (Norvasc) 10 mg PO DAILY [facility] Gabapentin (Neurontin) 800 mg PO TID [facility] Heparin Sodium (Porcine) (Heparin) 5,000 units SC Q12 [facility] Last Admin: 05/14/16 23:03 Dose: 5,000 units Hydralazine HCl (Apresoline) 50 mg PO Q8 [facility] Last Admin: 05/15/16 05:56 Dose: 50 mg Hydromorphone HCl (Dilaudid) 0.5 mg IVP Q4H PRN PRN Reason: Pain, severe (8-10) Last Admin: 05/15/16 09:05 Dose: 0.5 mg Metronidazole (Flagyl) 50 mls @ 60 mls/hr IVPB Q8H [facility] Stop: 05/19/16 23:31 Last Admin: 05/15/16 00:59 Dose: 60 mls/hr Vancomycin HCl/Dextrose (Vancocin) 100 mls @ 67 mls/hr IVPB MWF [facility] Stop: 05/22/16 09:01 Ciprofloxacin (Cipro 400mg/200ml Dsw) 200 mls @ 133 mls/hr IVPB Q24H [facility] Last Admin: 05/14/16 23:22 Dose: 133 mls/hr Labetalol HCl (Trandate) 200 mg PO Q12H [facility] Last Admin: 05/15/16 05:00 Dose: 200 mg Lisinopril (Zestril) 10 mg PO DAILY [facility] Metoclopramide HCl (Reglan) 10 mg IVP Q6 [facility] Last Admin: 05/15/16 06:01 Dose: 10 mg Pantoprazole Sodium (Protonix Ec Tab) 40 mg PO DAILY [facility] Sucralfate (Carafate Tab) 1 gm PO BID [facility] Last Admin: 05/14/16 23:03 Dose: 1 gm - Labs Labs: 05/15/16 07:13 - Head Exam Head Exam: ATRAUMATIC, NORMOCEPHALIC - Eye Exam Additional comments: No icterus - Respiratory Exam Additional comments: Lungs clear - Cardiovascular Exam Cardiovascular Exam: REGULAR RHYTHM - GI/Abdominal Exam GI & Abdominal Exam: Soft Additional comments: Mild diffuse tenderness - Extremities Exam Additional comments: No edema. + bruit over Lt arm AVF Assessment and Plan - Assessment and Plan (Free Text) Assessment: ESRD Volume over load, hyperkalemia HTN Abdominal pain IDDM Plan: Labs, CXR reviewed. Will schedule extra dialysis today then continue HD schedule of MWF Continue current meds
[2016-05-15] MEDS: Pantoprazole 40 mg EC Tab PO SCH (11:31)
--- NOTE | 2016-05-15 12:01 | CP.PCM.PN ---
Subjective - Date & Time of Evaluation Date of Evaluation: 05/15/16 Time of Evaluation: 12:00 - Subjective Subjective: immature brachio basilic avf left arm needs US scan ordered ideally we eill mobilize this prior to dc home particularly inview of unreliable fu Objective - Vital Signs/Intake and Output Vital Signs (last 24 hours): Temp Pulse Resp BP Pulse Ox 98.5 F 95 H 20 160/89 H 96 05/15/16 08:01 05/15/16 08:01 05/15/16 08:01 05/15/16 08:01 05/15/16 08:01 Intake and Output: 05/15/16 05/15/16 06:59 18:59 Intake Total 200 Balance 200 - Medications Medications: Current Medications Amlodipine Besylate (Norvasc) 10 mg PO DAILY [facility] Last Admin: 05/15/16 11:31 Dose: 10 mg Gabapentin (Neurontin) 800 mg PO TID [facility] Heparin Sodium (Porcine) (Heparin) 5,000 units SC Q12 [facility] Last Admin: 05/15/16 11:31 Dose: 5,000 units Hydralazine HCl (Apresoline) 50 mg PO Q8 [facility] Last Admin: 05/15/16 05:56 Dose: 50 mg Hydromorphone HCl (Dilaudid) 0.5 mg IVP Q4H PRN PRN Reason: Pain, severe (8-10) Last Admin: 05/15/16 09:05 Dose: 0.5 mg Metronidazole (Flagyl) 50 mls @ 60 mls/hr IVPB Q8H [facility] Stop: 05/19/16 23:31 Last Admin: 05/15/16 11:31 Dose: 60 mls/hr Vancomycin HCl/Dextrose (Vancocin) 100 mls @ 67 mls/hr IVPB MWF [facility] Stop: 05/22/16 09:01 Ciprofloxacin (Cipro 400mg/200ml Dsw) 200 mls @ 133 mls/hr IVPB Q24H [facility] Last Admin: 05/14/16 23:22 Dose: 133 mls/hr Labetalol HCl (Trandate) 200 mg PO Q12H [facility] Last Admin: 05/15/16 05:00 Dose: 200 mg Lisinopril (Zestril) 10 mg PO DAILY [facility] Metoclopramide HCl (Reglan) 10 mg IVP Q6 [facility] Last Admin: 05/15/16 11:31 Dose: 10 mg Pantoprazole Sodium (Protonix Ec Tab) 40 mg PO DAILY [facility] Last Admin: 05/15/16 11:31 Dose: 40 mg Sucralfate (Carafate Tab) 1 gm PO BID [facility] Last Admin: 05/15/16 11:31 Dose: 1 gm - Labs Labs: 05/15/16 07:13
--- NOTE | 2016-05-15 12:16 | PN ---
DATE: 05/15/2016 LOCATION: 353, bed A. This is a 35-year-old male seen and examined at rounds for GI consultation on 05/14/16 with the staff on the floor after discussing the case with the ER as well as medical and nursing staff on the floor . The patient is seen and fully examined again today with intermittent periods of abdominal pain. Appe ared to be awake, alert, oriented with recurrent nausea and vomiting, but no reported active bleeding . The patient had hemodialysis due to elevated potassium level present on his admission. The entire chart is reviewed including, but not limited to the most recent lab and radiology study re sults, current and the previous medication lists, current and the previous medical events and the pat ient still has low hemoglobin of 11.9 with leukocytosis of 16.2 with sodium 131, low with BUN of 57, creatinine 4.7 compatible with the patient's known history of hypertension. The patient also still has low calcium 7.8 with low total protein and low albumin. Initial chest x-ray at the time of admission, report and film are seen indicative of mild pulmonary v enous congestion. PHYSICAL EXAMINATION: GENERAL: A 35-year-old male appeared to be awake, alert, oriented. VITAL SIGNS: Heart rate of 94, blood pressure of 160/92. HEENT: Showed pale, dry oral mucoid membrane. Nonicteric sclerae. LUNGS: Few scattered crepitation, decreased air entry at bases. HEART: Positive S1 and S2. ABDOMEN: Soft with mild distention. No mass or organomegaly. No rebound tenderness or guarding. RECTAL: The patient refused. EXTREMITIES: Without significant clubbing, cyanosis or ulceration, but with edematous changes. NEUROLOGIC: No reported new neurologic deficits, sensory or motor. IMPRESSION: 1. Reexacerbation of peptic ulcer disease. 2. Diabetes mellitus with diabetic gastroparesis. 3. Poorly controlled hypertension. 4. End-stage renal disease on hemodialysis. 5. Hyperlipidemia by history. SUGGESTION: 1. Agree with your plan. 2. Increase the dose of Reglan. 3. The patient may need erythromycin if there is no significant response to current medication. 4. Further evaluation to follow. Panda Armstrong MD cc: 14 TT: 05/15/2016 12:15:18 Confirmation # [id number] Dictation # [id number]
[2016-05-15] MEDS ORDERED: EPOETIN ALFA 4,000 UNIT/ML ML Dialysis IV ONE (15:54)
[2016-05-15] MEDS: Ciprofloxacin 400mg/200ml D5W 200 ML IVPB SCH (22:28)
[2016-05-16] MEDS: metroNIDAZOLE IV 250mg/50 ml 50 ML IVPB SCH ×3 (06:30→23:49)
--- NOTE | 2016-05-16 09:51 | PN ---
DATE: 05/16/2016 LOCATION: 364, bed A. This is a 35-year-old male seen in rounds post-dialysis with persistently elevated blood pressure, bu t with a complaint of crampy abdominal pain, less than before with less episodes of nausea and vomiti ng, but dyspepsia. The entire chart is reviewed, including but not limited to the most recent lab an d radiology study results, current and the previous, as well as available ____ and critical reports. The patient still has low sodium with low chloride with increased BUN of 53, creatinine of 4.7 with i ncreased blood glucose level ____94 with low calcium, with low albumin, as well as low total protein. No reported active bleeding. PHYSICAL EXAMINATION: GENERAL: A 35-year-old male, appears to be awake and alert. VITAL SIGNS: Afebrile with pulse of 82, respiratory rate 20-22 with blood pressure of 170/86. HEENT: Showed pale, dry oral mucoid membrane. Nonicteric sclerae. LUNGS: Few scattered crepitations, decreased air entry at bases. HEART: Positive S1 and S2. ABDOMEN: Soft. Bowel sounds are present. No mass or organomegaly. No rebound tenderness or guardi ng. RECTAL: The patient refused. EXTREMITIES: Lower extremity mild edematous changes. No clubbing or cyanosis. NEUROLOGIC: No new neurological deficits, sensory or motor. IMPRESSION: 1. Reexacerbation of peptic ulcer disease. 2. Diabetes mellitus with diabetic gastroparesis. 3. Poorly controlled hypertension. 4. Chronic renal failure, on dialysis. 5. Anemia, most likely secondary to above. 6. Malnutrition with hypoalbuminemia. 7. Known history of hyperlipidemia. SUGGESTION: 1. Continue current management. 2. Repeat stool for occult blood as well as C. diff. Panda Armstrong MD cc: 14 TT: 05/16/2016 09:50:26 Confirmation # [id number] Dictation # [id number] johanna
[2016-05-16] MEDS: Pantoprazole 40 mg EC Tab PO SCH (11:41)
--- NOTE | 2016-05-16 13:07 | CP.PCM.PN ---
Subjective - Date & Time of Evaluation Date of Evaluation: 05/16/16 Time of Evaluation: 01:00 - Subjective Subjective: No c/o sob Comfortable in bed Objective - Vital Signs/Intake and Output Vital Signs (last 24 hours): Temp Pulse Resp BP Pulse Ox 98.8 F 80 20 163/83 H 95 05/16/16 08:00 05/16/16 08:00 05/16/16 08:00 05/16/16 08:00 05/16/16 08:00 Intake and Output: 05/16/16 05/16/16 06:59 18:59 Intake Total 450 Balance 450 - Medications Medications: Current Medications Amlodipine Besylate (Norvasc) 10 mg PO DAILY [facility] Last Admin: 05/16/16 11:42 Dose: 10 mg Gabapentin (Neurontin) 100 mg PO DAILY [facility] Last Admin: 05/16/16 11:42 Dose: 100 mg Heparin Sodium (Porcine) (Heparin) 5,000 units SC Q12 [facility] Last Admin: 05/16/16 11:42 Dose: 5,000 units Hydralazine HCl (Apresoline) 50 mg PO Q8 [facility] Last Admin: 05/16/16 05:18 Dose: 50 mg Metronidazole (Flagyl) 50 mls @ 60 mls/hr IVPB Q8H [facility] Stop: 05/19/16 23:31 Last Admin: 05/16/16 06:30 Dose: 60 mls/hr Vancomycin HCl/Dextrose (Vancocin) 100 mls @ 67 mls/hr IVPB MWF [facility] Stop: 05/22/16 09:01 Ciprofloxacin (Cipro 400mg/200ml Dsw) 200 mls @ 133 mls/hr IVPB Q24H [facility] Last Admin: 05/15/16 22:28 Dose: 133 mls/hr Labetalol HCl (Trandate) 200 mg PO Q12H [facility] Last Admin: 05/16/16 11:41 Dose: 200 mg Lisinopril (Zestril) 10 mg PO DAILY [facility] Metoclopramide HCl (Reglan) 10 mg IVP Q6 [facility] Last Admin: 05/16/16 05:15 Dose: 10 mg Morphine Sulfate (Morphine) 2 mg IVP Q4 PRN PRN Reason: Pain, moderate (4-7) Last Admin: 05/16/16 13:02 Dose: 2 mg Pantoprazole Sodium (Protonix Ec Tab) 40 mg PO DAILY [facility] Last Admin: 05/16/16 11:41 Dose: 40 mg Sucralfate (Carafate Tab) 1 gm PO BID [facility] Last Admin: 05/16/16 11:41 Dose: 1 gm - Labs Labs: 05/15/16 07:13 - Respiratory Exam Additional comments: Lungs clear - Cardiovascular Exam Cardiovascular Exam: REGULAR RHYTHM - Extremities Exam Additional comments: No edema Assessment and Plan - Assessment and Plan (Free Text) Assessment: ESRD on HD HTN Abdominal pain IDDM Plan: For dialysis tomorrow Monitor BP
--- NOTE | 2016-05-16 16:36 | CP.PCM.PN ---
Subjective - Date & Time of Evaluation Date of Evaluation: 05/16/16 Time of Evaluation: 08:00 - Subjective Subjective: no fever or abd pain immature brachio basilic avf left arm needs US scan ordered Objective - Vital Signs/Intake and Output Vital Signs (last 24 hours): Temp Pulse Resp BP Pulse Ox 98.8 F 80 20 163/83 H 95 05/16/16 08:00 05/16/16 08:00 05/16/16 08:00 05/16/16 08:00 05/16/16 08:00 Intake and Output: 05/16/16 05/16/16 06:59 18:59 Intake Total 450 Balance 450 - Medications Medications: Current Medications Amlodipine Besylate (Norvasc) 10 mg PO DAILY [facility] Last Admin: 05/16/16 11:42 Dose: 10 mg Gabapentin (Neurontin) 100 mg PO DAILY [facility] Last Admin: 05/16/16 11:42 Dose: 100 mg Heparin Sodium (Porcine) (Heparin) 5,000 units SC Q12 [facility] Last Admin: 05/16/16 11:42 Dose: 5,000 units Hydralazine HCl (Apresoline) 50 mg PO Q8 [facility] Last Admin: 05/16/16 15:19 Dose: 50 mg Metronidazole (Flagyl) 50 mls @ 60 mls/hr IVPB Q8H [facility] Stop: 05/19/16 23:31 Last Admin: 05/16/16 16:20 Dose: 60 mls/hr Vancomycin HCl/Dextrose (Vancocin) 100 mls @ 67 mls/hr IVPB MWF [facility] Stop: 05/22/16 09:01 Ciprofloxacin (Cipro 400mg/200ml Dsw) 200 mls @ 133 mls/hr IVPB Q24H [facility] Last Admin: 05/15/16 22:28 Dose: 133 mls/hr Labetalol HCl (Trandate) 200 mg PO Q12H [facility] Last Admin: 05/16/16 16:20 Dose: 200 mg Lisinopril (Zestril) 10 mg PO DAILY [facility] Metoclopramide HCl (Reglan) 10 mg IVP Q6 [facility] Last Admin: 05/16/16 12:00 Dose: Not Given Morphine Sulfate (Morphine) 2 mg IVP Q4 PRN PRN Reason: Pain, moderate (4-7) Last Admin: 05/16/16 13:02 Dose: 2 mg Pantoprazole Sodium (Protonix Ec Tab) 40 mg PO DAILY [facility] Last Admin: 05/16/16 11:41 Dose: 40 mg Sucralfate (Carafate Tab) 1 gm PO BID [facility] Last Admin: 05/16/16 11:41 Dose: 1 gm - Labs Labs: 05/15/16 07:13 - Constitutional Appears: Non-toxic, Chronically Ill - Head Exam Head Exam: NORMOCEPHALIC - Eye Exam Eye Exam: PERRL. absent: Scleral icterus - ENT Exam ENT Exam: Mucous Membranes Dry - Neck Exam Neck Exam: absent: Lymphadenopathy - Respiratory Exam Respiratory Exam: Decreased Breath Sounds, Clear to Ausculation Bilateral - Cardiovascular Exam Cardiovascular Exam: REGULAR RHYTHM, +S1, +S2 - GI/Abdominal Exam GI & Abdominal Exam: Distended, Soft. absent: Tenderness - Rectal Exam Rectal Exam: Deferred - Exam Exam: NORMAL INSPECTION - Extremities Exam Extremities Exam: absent: Calf Tenderness, Pedal Edema - Back Exam Back Exam: absent: CVA tenderness (L), CVA tenderness (R), paraspinal tenderness - Neurological Exam Neurological Exam: Alert, Awake, Oriented x3 - Psychiatric Exam Psychiatric exam: Normal Mood Assessment and Plan (1) GI bleed Status: Acute (2) Gastroparesis due to secondary diabetes Status: Acute (3) Hyperkalemia Status: Acute (4) Hyponatremia Status: Acute (5) Nausea and vomiting Status: Acute (6) Abdominal pain Status: Acute (7) Acute renal failure Status: Acute (8) Anemia Status: Acute
[2016-05-16] MEDS: Ciprofloxacin 400mg/200ml D5W 200 ML IVPB SCH (21:26)
[2016-05-17] MEDS: metroNIDAZOLE IV 250mg/50 ml 50 ML IVPB SCH (06:43)
[2016-05-17] MEDS: (Novolog) Insulin Aspart, Recombinant 100 u/ml 10 ml vial SC SCH ×2 (08:19→13:19)
[2016-05-17] MEDS ORDERED: Vancomycin 500mg/D5W 100 ml 100 ML IVPB SCH (09:00)
[2016-05-17] MEDS: Pantoprazole 40 mg EC Tab PO SCH (09:34)
--- NOTE | 2016-05-17 09:55 | CP.PCM.PN ---
Objective - Vital Signs/Intake and Output Vital Signs (last 24 hours): Temp Pulse Resp BP Pulse Ox 98.2 F 92 H 18 153/86 H 96 05/17/16 09:25 05/17/16 09:25 05/17/16 09:25 05/17/16 09:25 05/17/16 09:25 Intake and Output: 05/17/16 05/17/16 06:59 18:59 Intake Total 550 440 Balance 550 440 - Medications Medications: Current Medications Amlodipine Besylate (Norvasc) 10 mg PO DAILY [facility] Last Admin: 05/16/16 11:42 Dose: 10 mg Gabapentin (Neurontin) 100 mg PO DAILY [facility] Last Admin: 05/17/16 09:34 Dose: 100 mg Heparin Sodium (Porcine) (Heparin) 5,000 units SC Q12 [facility] Last Admin: 05/17/16 09:38 Dose: 5,000 units Hydralazine HCl (Apresoline) 50 mg PO Q8 [facility] Last Admin: 05/17/16 05:25 Dose: 50 mg Metronidazole (Flagyl) 50 mls @ 60 mls/hr IVPB Q8H [facility] Stop: 05/19/16 23:31 Last Admin: 05/17/16 06:43 Dose: 60 mls/hr Vancomycin HCl/Dextrose (Vancocin) 100 mls @ 67 mls/hr IVPB MWF [facility] Stop: 05/22/16 09:01 Last Admin: 05/17/16 08:20 Dose: 67 mls/hr Ciprofloxacin (Cipro 400mg/200ml Dsw) 200 mls @ 133 mls/hr IVPB Q24H [facility] Last Admin: 05/16/16 21:26 Dose: 133 mls/hr Insulin Aspart (Novolog) 0 unit SC ACHS [facility] PRN Reason: Protocol Last Admin: 05/17/16 08:19 Dose: 3 unit Labetalol HCl (Trandate) 200 mg PO Q12H [facility] Last Admin: 05/17/16 04:45 Dose: 200 mg Lisinopril (Zestril) 10 mg PO DAILY [facility] Metoclopramide HCl (Reglan) 10 mg IVP Q6 [facility] Last Admin: 05/17/16 05:32 Dose: 10 mg Morphine Sulfate (Morphine) 2 mg IVP Q4 PRN PRN Reason: Pain, moderate (4-7) Last Admin: 05/17/16 09:33 Dose: 2 mg Pantoprazole Sodium (Protonix Ec Tab) 40 mg PO DAILY [facility] Last Admin: 05/17/16 09:34 Dose: 40 mg Sucralfate (Carafate Tab) 1 gm PO BID [facility] Last Admin: 05/17/16 09:34 Dose: 1 gm - Labs Labs: 05/15/16 07:13 Assessment and Plan (1) Diarrhea Status: Acute (2) Nausea and vomiting Status: Acute (3) Hyponatremia Status: Acute (4) Hyperkalemia Status: Acute (5) HTN (hypertension) Status: Chronic (6) ESRD (end stage renal disease) on dialysis Status: Chronic (7) DVT prophylaxis Status: Acute
[2016-05-17 10:02] LABS: POTASSIUM 5.1 mmol/L (3.6-5.2)
[2016-05-17 10:05] LABS: PHOSPHOROUS 6.5 mg/dL (2.5-4.5)
[2016-05-17 10:06] LABS: CALCIUM 7.7 mg/dl (8.6-10.4)
--- NOTE | 2016-05-17 10:18 | HP ---
A 35-year-old male admitted to the hospital with chief complaint of weakness, fatigue, tiredness, [place], vomiting. The patient came to the hospital, advised admission. The patient has history of long standing diabetes, renal failure, dialysis. PHYSICAL EXAMINATION: GENERAL: The patient is awake, alert, oriented. VITAL SIGNS: Temperature 98, pulse 90. HEENT: Within normal limits. NECK: Supple. CHEST: Symmetrical. HEART: Regular. ABDOMEN: Soft. EXTREMITIES: No edema. The patient suffers from renal failure, intractable vomiting. The patient will get bedrest, supporti ve care. Lucero Mcgraw MD cc: [id number] TT: 05/16/2016 07:53:29 en
--- NOTE | 2016-05-17 10:30 | CP.PCM.PN ---
Subjective - Date & Time of Evaluation Date of Evaluation: 05/17/16 Time of Evaluation: 07:00 - Subjective Subjective: stool cultures pending await gi eval less pain Objective - Vital Signs/Intake and Output Vital Signs (last 24 hours): Temp Pulse Resp BP Pulse Ox 98.2 F 92 H 18 141/76 96 05/17/16 09:25 05/17/16 09:25 05/17/16 09:25 05/17/16 09:55 05/17/16 09:25 Intake and Output: 05/17/16 05/17/16 06:59 18:59 Intake Total 550 440 Balance 550 440 - Medications Medications: Current Medications Amlodipine Besylate (Norvasc) 10 mg PO DAILY [facility] Last Admin: 05/16/16 11:42 Dose: 10 mg Gabapentin (Neurontin) 100 mg PO DAILY [facility] Last Admin: 05/17/16 09:34 Dose: 100 mg Heparin Sodium (Porcine) (Heparin) 5,000 units SC Q12 [facility] Last Admin: 05/17/16 09:38 Dose: 5,000 units Hydralazine HCl (Apresoline) 50 mg PO Q8 [facility] Last Admin: 05/17/16 05:25 Dose: 50 mg Metronidazole (Flagyl) 50 mls @ 60 mls/hr IVPB Q8H [facility] Stop: 05/19/16 23:31 Last Admin: 05/17/16 06:43 Dose: 60 mls/hr Vancomycin HCl/Dextrose (Vancocin) 100 mls @ 67 mls/hr IVPB MWF [facility] Stop: 05/22/16 09:01 Last Admin: 05/17/16 08:20 Dose: 67 mls/hr Ciprofloxacin (Cipro 400mg/200ml Dsw) 200 mls @ 133 mls/hr IVPB Q24H [facility] Last Admin: 05/16/16 21:26 Dose: 133 mls/hr Insulin Aspart (Novolog) 0 unit SC ACHS [facility] PRN Reason: Protocol Last Admin: 05/17/16 08:19 Dose: 3 unit Labetalol HCl (Trandate) 200 mg PO Q12H [facility] Last Admin: 05/17/16 04:45 Dose: 200 mg Lisinopril (Zestril) 10 mg PO DAILY [facility] Metoclopramide HCl (Reglan) 10 mg IVP Q6 [facility] Last Admin: 05/17/16 05:32 Dose: 10 mg Morphine Sulfate (Morphine) 2 mg IVP Q4 PRN PRN Reason: Pain, moderate (4-7) Last Admin: 05/17/16 09:33 Dose: 2 mg Pantoprazole Sodium (Protonix Ec Tab) 40 mg PO DAILY [facility] Last Admin: 05/17/16 09:34 Dose: 40 mg Sucralfate (Carafate Tab) 1 gm PO BID [facility] Last Admin: 05/17/16 09:34 Dose: 1 gm - Labs Labs: 05/17/16 09:42 - Constitutional Appears: Non-toxic, Chronically Ill - Head Exam Head Exam: NORMOCEPHALIC - Eye Exam Eye Exam: absent: Scleral icterus - Neck Exam Neck Exam: absent: Lymphadenopathy - Respiratory Exam Respiratory Exam: Decreased Breath Sounds, Clear to Ausculation Bilateral - Cardiovascular Exam Cardiovascular Exam: REGULAR RHYTHM, +S1, +S2 - GI/Abdominal Exam GI & Abdominal Exam: Distended, Soft Assessment and Plan (1) GI bleed Status: Acute (2) Gastroparesis due to secondary diabetes Status: Acute (3) Hyperkalemia Status: Acute (4) Hyponatremia Status: Acute (5) Nausea and vomiting Status: Acute (6) Abdominal pain Status: Acute (7) Acute renal failure Status: Acute (8) Anemia Status: Acute
[2016-05-17 10:37] LABS: BASO # 0.1 K/uL (0.0-0.2); EOS # 0.3 K/uL (0.0-0.7); EOS % 3.5 % (0.0-4.0); HEMATOCRIT 33.6 % (35.0-51.0); LYMPH # 1.2 K/uL (1.0-4.3); MEAN CELL VOLUME 90.2 fL (80.0-94.0); MEAN CORPUSCULAR HEMOGLOBIN 27.8 pg (27.0-31.0); MEAN CORPUSCULAR HGB CONC 30.9 g/dL (33.0-37.0); MEAN PLATELET VOLUME 9.1 fL (7.2-11.7); MONO # 0.9 K/uL (0.0-0.8); MONO % 12.3 % (0.0-10.0); WHITE BLOOD COUNT 7.2 K/uL (4.8-10.8)
[2016-05-17 10:59] LABS: ALB/GLOB RATIO 0.9 (1.0-2.1); BILIRUBIN,TOTAL 0.2 mg/dL (0.2-1.3); TOTAL PROTEIN 5.6 g/dL (6.3-8.3)
--- NOTE | 2016-05-17 11:18 | PN ---
DATE: 05/17/2016 LOCATION: 364, bed A. This is a 35-year-old male seen and examined on rounds, appears to be more awake, alert, oriented wit h less episodes of dyspepsia or nausea. No reported vomiting or evidence of active bleeding with wali e loose bowel movement. The patient tolerated some of liquids on and off. The entire chart is reviewed, including but not limited to the most recent lab and radiology study re sults, current and the previous medication list, current and the previous medical events. Case discu ssed with the staff at length, and the patient still has low hemoglobin of 10.4, low hematocrit 33.6 with normal platelet count, but low sodium 130, and increased BUN of 58, creatinine 5.2 with blood gl ucose level of 295, but low calcium 7.7, and increased phosphorus 6.5. PHYSICAL EXAMINATION: GENERAL: A 35-year-old male, awake, alert, oriented. VITAL SIGNS: Afebrile with pulse of 94, respiratory rate 20-22 with blood pressure of 158/78. HEENT: Showed pale, dry oral mucoid membrane. Nonicteric sclerae. LUNGS: Few scattered crepitations, decreased air entry at bases. HEART: Positive S1 and S2. ABDOMEN: Soft. Bowel sounds are present with mild distention. No mass or organomegaly. EXTREMITIES: Without significant clubbing or cyanosis, but with mild lower extremity edematous toro es. NEUROLOGIC: No reported neurological deficits, sensory or motor. IMPRESSION: 1. Poorly-controlled hypertension. 2. Diabetes mellitus. 3. Diabetic gastroparesis. 4. Peptic ulcer disease. The patient had recently upper endoscopy. 5. Known history of chronic renal failure, on hemodialysis. 6. Malnutrition with hypoalbuminemia, improving gradually. 7. Anemia secondary to above. 8. Known history of hyperlipidemia. SUGGESTION: 1. Continue current management. 2. Follow up on the stool workup. 3. Repeat serum lipase and amylase level. Panda Armstrong MD cc: 14 TT: 05/17/2016 11:18:03 Confirmation # [id number] Dictation # [id number] [email or web address]
--- NOTE | 2016-05-17 11:24 | CP.PCM.PN ---
Subjective - Date & Time of Evaluation Date of Evaluation: 05/17/16 Time of Evaluation: 11:00 - Subjective Subjective: Currently on dialysis Comfortable Objective - Vital Signs/Intake and Output Vital Signs (last 24 hours): Temp Pulse Resp BP Pulse Ox 98.2 F 92 H 18 162/75 H 96 05/17/16 09:25 05/17/16 09:25 05/17/16 09:25 05/17/16 10:25 05/17/16 09:25 Intake and Output: 05/17/16 05/17/16 06:59 18:59 Intake Total 550 440 Balance 550 440 - Medications Medications: Current Medications Amlodipine Besylate (Norvasc) 10 mg PO DAILY [facility] Last Admin: 05/16/16 11:42 Dose: 10 mg Calcium Acetate (Phoslo) 1,334 mg PO TIDCC [facility] Gabapentin (Neurontin) 100 mg PO DAILY [facility] Last Admin: 05/17/16 09:34 Dose: 100 mg Heparin Sodium (Porcine) (Heparin) 5,000 units SC Q12 [facility] Last Admin: 05/17/16 09:38 Dose: 5,000 units Hydralazine HCl (Apresoline) 50 mg PO Q8 [facility] Last Admin: 05/17/16 05:25 Dose: 50 mg Metronidazole (Flagyl) 50 mls @ 60 mls/hr IVPB Q8H [facility] Stop: 05/19/16 23:31 Last Admin: 05/17/16 06:43 Dose: 60 mls/hr Vancomycin HCl/Dextrose (Vancocin) 100 mls @ 67 mls/hr IVPB MWF [facility] Stop: 05/22/16 09:01 Last Admin: 05/17/16 08:20 Dose: 67 mls/hr Ciprofloxacin (Cipro 400mg/200ml Dsw) 200 mls @ 133 mls/hr IVPB Q24H [facility] Last Admin: 05/16/16 21:26 Dose: 133 mls/hr Insulin Aspart (Novolog) 0 unit SC ACHS [facility] PRN Reason: Protocol Last Admin: 05/17/16 08:19 Dose: 3 unit Labetalol HCl (Trandate) 200 mg PO Q12H [facility] Last Admin: 05/17/16 04:45 Dose: 200 mg Lisinopril (Zestril) 10 mg PO DAILY [facility] Metoclopramide HCl (Reglan) 10 mg IVP Q6 [facility] Last Admin: 05/17/16 05:32 Dose: 10 mg Morphine Sulfate (Morphine) 2 mg IVP Q4 PRN PRN Reason: Pain, moderate (4-7) Last Admin: 05/17/16 09:33 Dose: 2 mg Pantoprazole Sodium (Protonix Ec Tab) 40 mg PO DAILY [facility] Last Admin: 05/17/16 09:34 Dose: 40 mg Sucralfate (Carafate Tab) 1 gm PO BID [facility] Last Admin: 05/17/16 09:34 Dose: 1 gm - Labs Labs: 05/17/16 10:30 05/17/16 09:42 - Eye Exam Eye Exam: Periorbital swelling - Respiratory Exam Additional comments: Lungs clear - Cardiovascular Exam Cardiovascular Exam: REGULAR RHYTHM - Extremities Exam Extremities Exam: Pedal Edema Assessment and Plan - Assessment and Plan (Free Text) Assessment: ESRD Maturing Lt arm AVF. Mx per Vascular HTN Abdominal pain Plan: Stable on dialysis. UF goal 3.5 Kg. Volume overload improving
[2016-05-17 13:05] VITALS: PULSE 95; RESP 16; TEMP 98.3
--- NOTE | 2016-05-17 15:26 | CARD ---
APPROVED REPORT EKG Measurement Heart [id number] <Conclusion> Normal sinus rhythm Normal ECG
--- NOTE | 2016-05-17 16:37 | CP.PCM.PN ---
Subjective - Date & Time of Evaluation Date of Evaluation: 05/17/16 Time of Evaluation: 07:30 - Subjective Subjective: Dr. Chadwick service: Patient seen in dialysis. He says he has no more vomiting, diarrhea, no fever, chills, nor abdominal pain. He looks much better than when he was first admitted. Objective - Vital Signs/Intake and Output Vital Signs (last 24 hours): Temp Pulse Resp BP Pulse Ox 98.3 F 95 H 16 173/93 H 98 05/17/16 12:40 05/17/16 12:40 05/17/16 12:40 05/17/16 12:40 05/17/16 12:40 Intake and Output: 05/17/16 05/17/16 06:59 18:59 Intake Total 550 440 Balance 550 440 - Medications Medications: Current Medications Amlodipine Besylate (Norvasc) 10 mg PO DAILY [facility] Last Admin: 05/17/16 13:10 Dose: Not Given Calcium Acetate (Phoslo) 1,334 mg PO TIDCC [facility] Last Admin: 05/17/16 13:18 Dose: 1,334 mg Gabapentin (Neurontin) 100 mg PO DAILY [facility] Last Admin: 05/17/16 09:34 Dose: 100 mg Heparin Sodium (Porcine) (Heparin) 5,000 units SC Q12 [facility] Last Admin: 05/17/16 09:38 Dose: 5,000 units Hydralazine HCl (Apresoline) 50 mg PO Q8 [facility] Last Admin: 05/17/16 13:18 Dose: 50 mg Metronidazole (Flagyl) 50 mls @ 60 mls/hr IVPB Q8H [facility] Stop: 05/19/16 23:31 Last Admin: 05/17/16 06:43 Dose: 60 mls/hr Vancomycin HCl/Dextrose (Vancocin) 100 mls @ 67 mls/hr IVPB MWF [facility] Stop: 05/22/16 09:01 Last Admin: 05/17/16 08:20 Dose: 67 mls/hr Ciprofloxacin (Cipro 400mg/200ml Dsw) 200 mls @ 133 mls/hr IVPB Q24H [facility] Last Admin: 05/16/16 21:26 Dose: 133 mls/hr Insulin Aspart (Novolog) 0 unit SC ACHS [facility] PRN Reason: Protocol Last Admin: 05/17/16 13:19 Dose: 3 unit Labetalol HCl (Trandate) 200 mg PO Q12H [facility] Last Admin: 05/17/16 04:45 Dose: 200 mg Lisinopril (Zestril) 10 mg PO DAILY [facility] Metoclopramide HCl (Reglan) 10 mg IVP Q6 [facility] Last Admin: 05/17/16 13:18 Dose: 10 mg Morphine Sulfate (Morphine) 2 mg IVP Q4 PRN PRN Reason: Pain, moderate (4-7) Last Admin: 05/17/16 14:01 Dose: 2 mg Pantoprazole Sodium (Protonix Ec Tab) 40 mg PO DAILY [facility] Last Admin: 05/17/16 09:34 Dose: 40 mg Sucralfate (Carafate Tab) 1 gm PO BID [facility] Last Admin: 05/17/16 09:34 Dose: 1 gm - Labs Labs: 05/17/16 10:30 05/17/16 09:42 - Constitutional Appears: Non-toxic, No Acute Distress - Head Exam Head Exam: NORMAL INSPECTION - Eye Exam Eye Exam: Normal appearance Pupil Exam: NORMAL ACCOMODATION - ENT Exam ENT Exam: Mucous Membranes Dry - Respiratory Exam Respiratory Exam: Clear to Ausculation Bilateral. absent: Rhonchi, Wheezes - Cardiovascular Exam Cardiovascular Exam: REGULAR RHYTHM, RRR, +S1, +S2. absent: Gallop, Rubs - GI/Abdominal Exam GI & Abdominal Exam: Soft, Normal Bowel Sounds. absent: Tenderness - Extremities Exam Extremities Exam: Normal Inspection - Back Exam Back Exam: NORMAL INSPECTION - Skin Skin Exam: Normal Color Assessment and Plan (1) Diarrhea Assessment & Plan: Put in discharge orders per request of Dr. Chadwick. Status: Acute (2) Nausea and vomiting Status: Acute (3) Hyponatremia Status: Acute (4) Hyperkalemia Status: Acute (5) HTN (hypertension) Status: Chronic (6) ESRD (end stage renal disease) on dialysis Status: Chronic (7) DVT prophylaxis Status: Acute
[2016-05-17 17:21] VITALS: BP 160/80
[2016-05-26 19:03] VITALS: O2SAT 100
--- NOTE | 2016-06-07 10:01 | DS ---
The patient admitted to the hospital with chief complaint of generalized weakness, fatigue, tiredness . The patient came to the hospital, advised admission. The patient got bedrest, medication for naus ea, vomiting and dialysis. Lucero Mcgraw MD cc: [id number] TT: 06/06/2016 22:33:02 sn
== END 2016-05-17 16:25 | disposition home or self-care (01) | DRG 73 ==
LOC: C.ER 09:20 → C.9E 13:45 → C.3T 17:36
PROVIDERS: ADMIT Internal Medicine Pulmonary Disease; ATTEND Internal Medicine Pulmonary Disease
PROC: 5A1D00Z (ICD-10-PCS; principal; 2016-05-15)
DX: E11.43 Type 2 diabetes mellitus with diabetic autonomic (poly)neuropathy (principal); N18.6 End stage renal disease; I13.2 Hypertensive heart and chronic kidney disease with heart failure and with stage 5 chronic kidney disease, or end stage renal disease; N17.9 Acute kidney failure, unspecified; E11.22 Type 2 diabetes mellitus with diabetic chronic kidney disease; E46 Unspecified protein-calorie malnutrition; E87.1 Hypo-osmolality and hyponatremia; K27.3 Acute peptic ulcer, site unspecified, without hemorrhage or perforation; E87.5 Hyperkalemia; I50.9 Heart failure, unspecified; K31.84 Gastroparesis; Z99.2 Dependence on renal dialysis; Z79.4 Long term (current) use of insulin; E78.00 Pure hypercholesterolemia, unspecified; R19.7 Diarrhea, unspecified; F17.210 Nicotine dependence, cigarettes, uncomplicated; E78.5 Hyperlipidemia, unspecified; D63.1 Anemia in chronic kidney disease

== ENCOUNTER 2016-05-25 18:04 | Inpatient (IN) | payer MEDICARE, MEDICAID ==
[2016-05-25 18:05] VITALS: BMI 27.0
[2016-05-25] MEDS ORDERED: Sodium Chloride 0.9% 250 ML IV ONE (19:11)
[2016-05-25 19:21] LABS: BASO # 0.1 K/uL (0.0-0.2); BASO % 0.6 % (0.0-2.0); EOS % 0.2 % (0.0-4.0); HEMATOCRIT 40.4 % (35.0-51.0); LYMPH # 0.8 K/uL (1.0-4.3); MEAN CELL VOLUME 89.6 fL (80.0-94.0); MEAN CORPUSCULAR HGB CONC 31.3 g/dL (33.0-37.0); MEAN PLATELET VOLUME 9.4 fL (7.2-11.7); MONO # 0.7 K/uL (0.0-0.8); MONO % 4.2 % (0.0-10.0); PLATELET COUNT 263 K/uL (130-400); RED CELL DISTRIBUTION WIDTH 16.6 % (11.5-14.5)
[2016-05-25 19:22] LABS: WHITE BLOOD COUNT 16.2 K/uL (4.8-10.8)
[2016-05-25] MEDS ORDERED: Morphine 4 MG/ML VIAL ONE (19:22)
[2016-05-25] MEDS ORDERED: Sodium Chloride 0.9% 1,000 ML ONE (19:22)
[2016-05-25 19:28] LABS: POTASSIUM 3.8 mmol/L (3.6-5.2)
[2016-05-25 19:31] LABS: ALB/GLOB RATIO 0.9 (1.0-2.1); BILIRUBIN,TOTAL 0.3 mg/dL (0.2-1.3); CALCIUM 8.7 mg/dl (8.6-10.4); TOTAL PROTEIN 6.9 g/dL (6.3-8.3)
[2016-05-25] MEDS ORDERED: Pantoprazole 80 MG in Sodium Chloride 0.9% 100 ML IVPB STA (19:31)
[2016-05-25 19:40] LABS: NEUTROPHIL 84 % (50-75); TOTAL CELLS COUNTED 100
[2016-05-25 19:41] LABS: LARGE PLATELETS PRESENT
--- NOTE | 2016-05-25 19:55 | C.PDOC ---
History Of Present Illness 35 y/o male presents to the ED with complains of abdominal pain, nausea, vomiting with bloody streaks since this morning. Pt also reports several episodes of diarrhea. Pt denies chest pain, SOB, dysuria/hematuria, fever. PMHx of ESRD on HD, last dialysis was yesterday. Time Seen by Provider: 05/25/16 19:06 Chief Complaint (Nursing): Abdominal Pain History Per: Patient History/Exam Limitations: no limitations Onset/Duration Of Symptoms: Hrs Current Symptoms Are (Timing): Still Present Severity: Moderate Location Of Pain/Discomfort: Diffuse Radiation Of Pain To:: None Quality Of Discomfort: "Pain" Associated Symptoms: Nausea, Vomiting, Diarrhea. denies: Fever, Chest Pain Exacerbating Factors: None Alleviating Factors: None Past Medical History Reviewed: Historical Data, Nursing Documentation, Vital Signs Vital Signs: Last Vital Signs Temp 99.1 F 06/01/16 07:17 Pulse 95 H 06/01/16 07:17 Resp 20 06/01/16 07:17 BP 126/75 06/01/16 07:17 Pulse Ox 98 06/01/16 07:17 - Medical History PMH: CHF, Diabetes, Gastritis, HTN, Hypercholesterolemia, End Stage Renal Disease, Chronic Kidney Disease - [facility] Procedures BYPASS LEFT BRACHIAL ARTERY TO UPPER ARM VEIN, OPEN APPROACH (02/17/16) EXCISION OF ASCENDING COLON, ENDO, DIAGN (12/19/15) EXCISION OF DUODENUM, ENDO, DIAGN (03/25/16) EXCISION OF LARGE INTESTINE, ENDO, DIAGN (05/06/16) EXCISION OF MIDDLE ESOPHAGUS, ENDO, DIAGN (03/25/16) EXCISION OF STOMACH, ENDO, DIAGN (04/01/16) EXCISION OF TRANSVERSE COLON, ENDO, DIAGN (05/06/16) INSERTION OF INFUSION DEV INTO SUP VENA CAVA, PERC APPROACH (12/19/15) PERFORMANCE OF URINARY FILTRATION, MULTIPLE (05/06/16) PERFORMANCE OF URINARY FILTRATION, SINGLE (05/14/16) ULTRASONOGRAPHY OF SUPERIOR VENA CAVA, GUIDANCE (12/19/15) Family History: States: No Known Family Hx - Social History Hx Tobacco Use: Yes (some days) Hx Alcohol Use: No Hx Substance Use: No - Immunization History Hx Tetanus Toxoid Vaccination: Yes Hx Influenza Vaccination: Yes Hx Pneumococcal Vaccination: Yes Review Of Systems Except As Marked, All Systems Reviewed And Found Negative. Constitutional: Negative for: Fever Cardiovascular: Negative for: Chest Pain, Palpitations Respiratory: Negative for: Cough, Shortness of Breath Gastrointestinal: Positive for: Nausea, Vomiting, Abdominal Pain, Diarrhea, Hematemesis Genitourinary: Negative for: Dysuria Physical Exam - Physical Exam Appears: Non-toxic, In Acute Distress (moderate pain), Other (morbidly obese) Skin: Warm, Dry, No Rash Head: Normacephalic Eye(s): bilateral: Normal Inspection Oral Mucosa: Moist Neck: Supple Chest: Symmetrical, Other (port at right chest) Cardiovascular: Rhythm Regular, No Murmur Respiratory: Normal Breath Sounds, No Rales, No Rhonchi, No Wheezing Gastrointestinal/Abdominal: Bowel Sounds, Soft, Tenderness (diffuse TTP, greatest in suprapubic area, (-) Burrell's, (-) McBurney's), No Guarding, No Rebound Back: No CVA Tenderness Extremity: Other (AV fistula left arm with palpable thrill) Extremity: Bilateral: Atraumatic, Normal ROM Neurological/Psych: Oriented x3 ED Course And Treatment - Laboratory Results Result Diagrams: 06/01/16 07:50 06/01/16 07:50 ECG: Interpreted By Me, Viewed By Me (NSR 100 bpm, normal axis, T wave inversions I, V6, no acute ST changes) O2 Sat by Pulse Oximetry: 98 (on room air) Pulse Ox Interpretation: Normal Progress Note: Plan: Blood work, UA, EKG, ordered and reviewed. Patient given small IV NS bolus, IV protonix, IV zofran, IV morphine. - Physician Consult Information Physician Contacted: Lucero Chadwick Outcome Of Conversation: Discussed patient with Dr. Chadwick, he agrees with admission for coffee ground emesis, intractable nausea/vomiting, esrd on HD, htn , leukocytosis, bandemia. Dr. Zepeda is neprhologist. Disposition - Disposition Disposition: HOSPITALIZED Disposition Time: 20:50 Condition: STABLE - Clinical Impression Clinical Impression: Coffee ground emesis, Bandemia, Nausea, Nausea and vomiting, ESRD (end stage renal disease) on dialysis, Leukocytosis - Scribe Statement The provider has reviewed the documentation as recorded by the Js Cheney Provider Attestation: All medical record entries made by the Js were at my direction and personally dictated by me. I have reviewed the chart and agree that the record accurately reflects my personal performance of the history, physical exam, medical decision making, and the department course for this patient. I have also personally directed, reviewed, and agree with the discharge instructions and disposition. Decision To Admit - Pt Status Changed To: Hospital Disposition Of: Inpatient - Admit Certification Admit to Inpatient:: After my assessment, the patient will require hospitalization for at least two midnights. This is because of the severity of symptoms shown, intensity of services needed, and/or the medical risk in this patient being treated as an outpatient. - InPatient: Physician Admission Certification:: see notes - . Bed Request Type: Telemetry Admitting Physician: Lucero Chadwick Patient Diagnosis: Nausea, ESRD (end stage renal disease) on dialysis, Nausea and vomiting, Coffee ground emesis, Bandemia, Leukocytosis, HTN (hypertension)
[2016-05-25] MEDS ORDERED: Labetalol 25mg/5ml Syringe IVP STA (20:28)
[2016-05-25] MEDS ORDERED: Labetalol 25mg/5ml Syringe ONE (20:35)
[2016-05-26] MEDS ORDERED: HYDROmorphone 1 mg/ml ISec IVP STA (06:29)
--- NOTE | 2016-05-26 09:10 | CP.PCM.PN ---
Subjective - Date & Time of Evaluation Date of Evaluation: 05/26/16 Time of Evaluation: 07:50 - Subjective Subjective: Medicine Note- Dr. Chadwick's service Patient was seen and examined at bedside. Patient reports that he came to the hospital because he began to have abdominal pain, nausea and vomiting earlier that morning. He says it feels similar to his last admission here. Patient has had about 10 admissions since February 2016 for similar problem. No events overnight. Objective - Vital Signs/Intake and Output Vital Signs (last 24 hours): Temp Pulse Resp BP Pulse Ox 98.2 F 93 H 20 130/78 95 05/26/16 08:15 05/26/16 08:15 05/26/16 08:15 05/26/16 08:15 05/26/16 08:15 Intake and Output: 05/26/16 05/26/16 06:59 18:59 Intake Total 55 Balance 55 - Constitutional Appears: Non-toxic, No Acute Distress - Head Exam Head Exam: ATRAUMATIC, NORMAL INSPECTION, NORMOCEPHALIC - Eye Exam Pupil Exam: NORMAL ACCOMODATION, PERRL - ENT Exam ENT Exam: Mucous Membranes Moist, Normal Exam - Respiratory Exam Respiratory Exam: Clear to Ausculation Bilateral, NORMAL BREATHING PATTERN. absent: Rales, Rhonchi, Wheezes - Cardiovascular Exam Cardiovascular Exam: REGULAR RHYTHM, +S1, +S2 - GI/Abdominal Exam GI & Abdominal Exam: Soft, Tenderness, Normal Bowel Sounds. absent: Diminished Bowel Sounds, Hernia, Hypoactive Bowel Sounds - Extremities Exam Extremities Exam: Normal Capillary Refill, Normal Inspection - Neurological Exam Neurological Exam: Alert, Awake, Oriented x3 - Psychiatric Exam Psychiatric exam: Normal Affect, Normal Mood - Skin Skin Exam: Dry, Intact, Normal Color, Warm Assessment and Plan - Assessment and Plan (Free Text) Assessment: (1) Nausea and vomiting Patient is on Zofran 4mg IVP Q6H, Carafate 1gm bid, protonix 40mg IVP Reglan 5mg IVP ACHS, Dr. Armstrong consulted, help appreciated. Dilaudid 1mg q4h PRN for pain Last Colonoscopy 05/07/16: moderate nonbleeding internal hemorrhoids, two sessile polyps 10-11mm in colon and two 4-5mm polyps in transverse colon. Patient needs to repeat in 3 years. Status: Acute (2) ESRD (end stage renal disease) on dialysis Assessment & Plan: consult nephro- Dr. Plasencia Will continue current dialysis schedule of MWF Status: Chronic (3) DM2 (diabetes mellitus, type 2) Assessment & Plan: Continue Home insulin 70/30 20 units bid accuchabram DURAND Status: Chronic (4) HTN (hypertension) Assessment & Plan: Continue Hydralazine 50mg Q8h, Zestril 20mg daily, Norvasc 10mg, Asprin 81m, Labetalol 200mg q12h Status: Chronic (5) Prophylactic measure Assessment & Plan: Protonix 40mg IVP Heparin 5000 units SC q12h Status: Acute
[2016-05-26] MEDS: HYDROmorphone 1 mg/ml ISec IVP PRN ×3 (11:07→22:27)
[2016-05-26] MEDS: (Novolin R) Insulin Human Regular 100 units/ml vial SC SCH ×3 (11:28→22:26)
[2016-05-26] MEDS: (Novolin 70/30) NPH/Regular 70/30 Units/ml 10 ml vial SC SCH ×2 (11:29→17:56)
[2016-05-26 13:47] LABS: POTASSIUM 3.7 mmol/L (3.6-5.2)
[2016-05-26 13:50] LABS: CALCIUM 8.1 mg/dl (8.6-10.4)
--- NOTE | 2016-05-26 13:50 | CP.PCM.CON ---
History of Present Illness - History of Present Illness History of Present Illness: 35 y/o male with ESRD on maintenance HD,IDDM with complications, HTN,multiple hospital admissions for abdominal pain presented to ER last pm for c/o abdominal pain, N&V & also had diarrhea. Pts dialysis schedule is MWF,receives dialysis vial Rt IJ perm cath & paredes a maturing Lt arm AVF Past Patient History - Infectious Disease Hx of Infectious Diseases: None - Past Medical History & Family History Past Medical History?: Yes - Past Social History Smoking Status: Never Smoked - CARDIAC Hx Congestive Heart Failure: Yes Hx Hypercholesterolemia: Yes Hx Hypertension: Yes - PULMONARY Hx Respiratory Disorders: No - NEUROLOGICAL Hx Neurological Disorder: No - HEENT Hx HEENT Problems: Yes (cataracts RIGHT) Hx Cataracts: Yes - RENAL Hx Chronic Kidney Disease: Yes Hx Dialysis: Yes Date of Last Dialysis Treatment: 05/24/16 - ENDOCRINE/METABOLIC Hx Endocrine Disorders: Yes Hx Diabetes Mellitus Type 1: Yes Hx Diabetes Mellitus Type 2: Yes - HEMATOLOGICAL/ONCOLOGICAL Hx Blood Disorders: No Hx Human Immunodeficiency Virus (HIV): No - INTEGUMENTARY Hx Dermatological Problems: No - MUSCULOSKELETAL/RHEUMATOLOGICAL Hx Musculoskeletal Disorders: No Hx Falls: No - GASTROINTESTINAL Hx Gastrointestinal Disorders: Yes Hx Gastritis: Yes - GENITOURINARY/GYNECOLOGICAL Hx Genitourinary Disorders: No - PSYCHIATRIC Hx Substance Use: No - SURGICAL HISTORY Hx Surgeries: Yes Other/Comment: RT.PERMACATH INSERTION 12/30. LT.AV SHUNT CREATION 02/17/16. UNDESCENDED TESTES LT. REMOVED DURING CHILDHOOD - ANESTHESIA Hx Anesthesia: Yes Hx Anesthesia Reactions: No Hx Malignant Hyperthermia: No Meds Allergies/Adverse Reactions: Allergies Allergy/AdvReac Type Severity Reaction Status Date / Time No Known Allergies Allergy Verified 02/17/16 02:41 - Medications Medications: Current Medications Amlodipine Besylate (Norvasc) 10 mg PO DAILY [facility] Last Admin: 05/26/16 11:06 Dose: 10 mg Heparin Sodium (Porcine) (Heparin) 5,000 units SC Q8 [facility] Hydralazine HCl (Apresoline) 50 mg PO Q8 [facility] Last Admin: 05/26/16 11:06 Dose: 50 mg Hydromorphone HCl (Dilaudid) 1 mg IVP Q4H PRN PRN Reason: Pain, severe (8-10) Last Admin: 05/26/16 11:07 Dose: 1 mg Insulin Human Isoph/Insulin Regular (Novolin 70/30 (70/30 Units/Ml) 10 Ml) 20 units SC BID [facility] Last Admin: 05/26/16 11:29 Dose: 20 units Insulin Human Regular (Novolin R) 0 unit SC ACHS [facility] PRN Reason: Protocol Last Admin: 05/26/16 11:28 Dose: 4 unit Labetalol HCl (Trandate) 200 mg PO Q12 [facility] Last Admin: 05/26/16 12:29 Dose: Not Given Lisinopril (Zestril) 20 mg PO DAILY [facility] Last Admin: 05/26/16 11:06 Dose: 20 mg Metoclopramide HCl (Reglan) 10 mg IVP ACHS [facility] Last Admin: 05/26/16 11:05 Dose: 10 mg Pantoprazole Sodium (Protonix Inj) 40 mg IVP DAILY [facility] Last Admin: 05/26/16 10:59 Dose: 40 mg Sucralfate (Carafate Tab) 1 gm PO Q12 [facility] Last Admin: 05/26/16 11:14 Dose: Not Given Physical Exam - Constitutional Appears: No Acute Distress - Head Exam Head Exam: ATRAUMATIC, NORMOCEPHALIC - Eye Exam Additional comments: Conjunctivae pink sclerae anicteric - ENT Exam ENT Exam: Mucous Membranes Moist - Neck Exam Additional comments: Neck supple - Respiratory Exam Additional comments: Lungs clear - Cardiovascular Exam Cardiovascular Exam: REGULAR RHYTHM - GI/Abdominal Exam GI & Abdominal Exam: Soft Additional comments: Mild lower abd tenderness - Extremities Exam Additional comments: Trace pedal edema - Skin Additional comments: No rashes Results - Vital Signs Recent Vital Signs: Last Vital Signs Temp 98.2 F 05/26/16 08:15 Pulse 90 05/26/16 10:59 Resp 18 05/26/16 10:59 BP 185/91 H 05/26/16 10:59 Pulse Ox 97 05/26/16 10:59 - Labs Result Diagrams: 05/25/16 19:18 05/25/16 19:18 Labs: Laboratory Results - last 24 hr 05/26/16 11:11 POC Glucose (mg/dL) 204 H Assessment & Plan - Assessment and Plan (Free Text) Assessment: ESRD/HDD Abdominal pain IDDM HTN Plan: Scheduled for dialysis today Hb is stable Monitor BP
--- NOTE | 2016-05-26 14:42 | CARD ---
APPROVED REPORT EKG Measurement Heart [id number] <Conclusion> Normal sinus rhythm Possible Left atrial enlargement Nonspecific T wave abnormality Prolonged QT Abnormal ECG
[2016-05-26 14:51] LABS: RBC URINE 3 /hpf (0-3); URINE BILIRUBIN NEGATIVE (NEGATIVE); URINE BLOOD NEGATIVE (NEGATIVE); URINE COLOR Yellow (YELLOW); URINE GLUCOSE (UA) 3+ mg/dL (Normal); URINE KETONE TRACE mg/dL (NEGATIVE); URINE LEUKOCYTE ESTERASE NEG Leu/uL (Negative); URINE PROTEIN 3+ mg/dL (NEGATIVE); URINE UROBILINOGEN NORMAL mg/dL (0.2-1.0); WBC URINE 3 /hpf (0-5)
[2016-05-27] MEDS: HYDROmorphone 1 mg/ml ISec IVP PRN ×5 (02:43→22:16)
--- NOTE | 2016-05-27 07:44 | HP ---
The patient is a 35-year-old male with history of diabetes, hypertension, ____, chronic renal failure , admitted to the hospital with chief complaint of weakness, fatigue, tiredness, nausea, vomiting, se harvey abdominal pain, coffee-ground material. The patient came to the ER, advised admission because o f persistent vomiting and pain. PAST MEDICAL HISTORY: Mentioned above. The patient uses Protonix, Zofran, Percocet. SOCIAL HISTORY: The patient is a nonsmoker, nondrinker. The patient is legally blind. PHYSICAL EXAMINATION: GENERAL: The [id number] is awake, alert, oriented. VITAL SIGNS: Temperature 98. NECK: Supple. CHEST: Symmetrical. HEART: Regular. ABDOMEN: Soft. EXTREMITIES: No edema. The patient suffers from chronic renal failure, intractable vomiting, gastrointestinal bleeding. At this point, give IV fluids, IV Protonix, Zofran, pain medication, gastroenterology consultation. Lucero Mcgraw MD cc: [id number] TT: 05/26/2016 11:33:54 tn
--- NOTE | 2016-05-27 07:55 | CP.PCM.PN ---
Subjective - Date & Time of Evaluation Date of Evaluation: 05/27/16 Time of Evaluation: 07:30 - Subjective Subjective: Medicine Note- Dr. Chadwick's service Patient was seen and examined at bedside. Patient reports his abdominal pain is slightly improved from previous day. Reported one episode of vomiting last night , intermittent nausea. Normal bowel movements. Objective - Vital Signs/Intake and Output Vital Signs (last 24 hours): Temp Pulse Resp BP Pulse Ox 98.3 F 87 20 145/73 97 05/26/16 23:15 05/27/16 00:10 05/26/16 23:15 05/26/16 23:15 05/26/16 23:15 Intake and Output: 05/27/16 05/27/16 06:59 18:59 Intake Total 440 Balance 440 - Medications Medications: Current Medications Amlodipine Besylate (Norvasc) 10 mg PO DAILY [facility] Last Admin: 05/26/16 11:06 Dose: 10 mg Heparin Sodium (Porcine) (Heparin) 5,000 units SC Q8 [facility] Last Admin: 05/27/16 05:05 Dose: 5,000 units Heparin Sodium (Porcine) (Heparin) 3,700 units IVP MWF [facility] Stop: 06/07/16 09:01 Last Admin: 05/26/16 16:27 Dose: 3,700 units Hydralazine HCl (Apresoline) 50 mg PO Q8 [facility] Last Admin: 05/27/16 05:05 Dose: 50 mg Hydromorphone HCl (Dilaudid) 1 mg IVP Q4H PRN PRN Reason: Pain, severe (8-10) Last Admin: 05/27/16 06:41 Dose: 1 mg Insulin Human Isoph/Insulin Regular (Novolin 70/30 (70/30 Units/Ml) 10 Ml) 20 units SC BID [facility] Last Admin: 05/26/16 17:56 Dose: 20 units Insulin Human Regular (Novolin R) 0 unit SC ACHS [facility] PRN Reason: Protocol Last Admin: 05/26/16 22:26 Dose: Not Given Labetalol HCl (Trandate) 200 mg PO Q12 [facility] Last Admin: 05/26/16 22:25 Dose: 200 mg Lisinopril (Zestril) 20 mg PO DAILY [facility] Last Admin: 05/26/16 11:06 Dose: 20 mg Metoclopramide HCl (Reglan) 10 mg IVP ACHS [facility] Last Admin: 05/26/16 22:26 Dose: Not Given Ondansetron HCl (Zofran Inj) 4 mg IVP Q6H PRN PRN Reason: Nausea/Vomiting Last Admin: 05/27/16 06:39 Dose: 4 mg Pantoprazole Sodium (Protonix Inj) 40 mg IVP DAILY [facility] Last Admin: 05/26/16 10:59 Dose: 40 mg Sucralfate (Carafate Tab) 1 gm PO Q12 [facility] Last Admin: 05/26/16 22:26 Dose: 1 gm - Labs Labs: 05/26/16 13:28 - Constitutional Appears: Non-toxic, No Acute Distress - Head Exam Head Exam: ATRAUMATIC, NORMAL INSPECTION, NORMOCEPHALIC - Eye Exam Pupil Exam: NORMAL ACCOMODATION, PERRL - ENT Exam ENT Exam: Mucous Membranes Moist - Neck Exam Neck Exam: Normal Inspection - Respiratory Exam Respiratory Exam: Clear to Ausculation Bilateral, Rales, NORMAL BREATHING PATTERN. absent: Rhonchi, Wheezes - Cardiovascular Exam Cardiovascular Exam: REGULAR RHYTHM, +S1, +S2 - GI/Abdominal Exam GI & Abdominal Exam: Soft, Tenderness, Normal Bowel Sounds. absent: Diminished Bowel Sounds, Hypoactive Bowel Sounds - Neurological Exam Neurological Exam: Alert, Awake, Oriented x3 - Psychiatric Exam Psychiatric exam: Normal Affect, Normal Mood - Skin Skin Exam: Dry, Intact, Normal Color, Warm Assessment and Plan - Assessment and Plan (Free Text) Assessment: (1) Nausea and vomiting Patient is on Zofran 4mg IVP Q6H, Carafate 1gm bid, protonix 40mg IVP Reglan 5mg IVP ACHS, Dr. Armstrong consulted, help appreciated. Dilaudid 1mg q4h PRN for pain Last Colonoscopy 05/07/16: moderate nonbleeding internal hemorrhoids, two sessile polyps 10-11mm in colon and two 4-5mm polyps in transverse colon. Patient needs to repeat in 3 years. Status: Acute (2) ESRD (end stage renal disease) on dialysis Assessment & Plan: consult nephro- Dr. Plasencia Will continue current dialysis schedule of MWF Status: Chronic (3) DM2 (diabetes mellitus, type 2) Assessment & Plan: Continue Home insulin 70/30 20 units bid accucheck ACHS [facility] Status: Chronic (4) HTN (hypertension) Assessment & Plan: Continue Hydralazine 50mg Q8h, Zestril 20mg daily, Norvasc 10mg, Asprin 81m, Labetalol 200mg q12h Status: Chronic (5) Prophylactic measure Assessment & Plan: Protonix 40mg IVP Heparin 5000 units SC q12h Status: Acute
[2016-05-27] MEDS: (Novolin R) Insulin Human Regular 100 units/ml vial SC SCH ×4 (08:00→22:14)
--- NOTE | 2016-05-27 08:46 | PN ---
DATE: 05/27/2016 LOCATION: 653, bed B. This is a 36-year-old male seen for GI consultation on 05/26/2016 as requested by the admitting medica l team, reexamined again today with intermittent periods of episodes of abdominal pain with mild dysp epsia, less oral intake with severe diarrhea as well as reported nausea and vomiting of bloody vomitu s, none this morning. The entire chart is reviewed, including but not limited to, the most recent lab and radiology study r esults, current and previous medication lists, current and previous medical events, allergy to medica tion list as well as all the available current and previous medical records. Blood glucose level is still elevated this morning of 189 with increased BUN at 43, creatinine 5.1 wi th low calcium 8.1 with leukocytosis before. The patient is seen by the urology [employer] consultant on the case. PHYSICAL EXAMINATION: GENERAL: A 36-year-old male. VITAL SIGNS: Afebrile with pulse of 82, respiratory rate 20-22, blood pressure reported to be 150/74 . HEENT: Showed pale, dry oral mucoid membrane. Nonicteric sclerae. LUNGS: Few scattered crepitation, decreased air entry at bases. HEART: Positive S1 and S2. ABDOMEN: Soft. Bowel sounds are present with diffuse tenderness. No mass or organomegaly. RECTAL: The patient refused. EXTREMITIES: Without significant edema, clubbing or cyanosis. Peripheral pulses are present, but we ak bilaterally. IMPRESSION: 1. Diarrhea, most likely secondary to acute gastroenteritis; however, that could be secondary to lukas betic diarrhea. 2. Reexacerbation of peptic ulcer disease. 3. Diabetic gastroparesis with recurrent nausea and vomiting. 4. Known history of hypertension, end-stage renal disease, hyperlipidemia. 5. Reported history of congestive heart failure. SUGGESTION: 1. Continue current management. 2. Reglan IV. 3. The patient had recently upper endoscopy as well as lower endoscopy and no need for further aggre ssive endoscopic evaluation of the gastrointestinal tract at this point. However, should the patient have more recurrent episodes of hematemesis, then upper endoscopy to be kept in mind. Otherwise, cl ose observation is recommended. Panda Armstrong MD cc: [id number] TT: 05/27/2016 08:45:44 Confirmation # [id number] Dictation # [id number]
[2016-05-27] MEDS: (Novolin 70/30) NPH/Regular 70/30 Units/ml 10 ml vial SC SCH ×2 (10:00→18:00)
--- NOTE | 2016-05-27 11:14 | CP.PCM.PN ---
Subjective - Date & Time of Evaluation Date of Evaluation: 05/27/16 Time of Evaluation: 10:45 - Subjective Subjective: Appears comfortable in bed Objective - Vital Signs/Intake and Output Vital Signs (last 24 hours): Temp Pulse Resp BP Pulse Ox 98.4 F 87 17 164/83 H 96 05/27/16 07:20 05/27/16 07:30 05/27/16 07:20 05/27/16 07:20 05/27/16 07:20 Intake and Output: 05/27/16 05/27/16 06:59 18:59 Intake Total 440 Balance 440 - Medications Medications: Current Medications Amlodipine Besylate (Norvasc) 10 mg PO DAILY [facility] Last Admin: 05/27/16 09:03 Dose: 10 mg Heparin Sodium (Porcine) (Heparin) 5,000 units SC Q8 [facility] Last Admin: 05/27/16 05:05 Dose: 5,000 units Heparin Sodium (Porcine) (Heparin) 3,700 units IVP F [facility] Stop: 06/07/16 09:01 Last Admin: 05/26/16 16:27 Dose: 3,700 units Hydralazine HCl (Apresoline) 50 mg PO Q8 [facility] Last Admin: 05/27/16 05:05 Dose: 50 mg Hydromorphone HCl (Dilaudid) 1 mg IVP Q4H PRN PRN Reason: Pain, severe (8-10) Last Admin: 05/27/16 10:53 Dose: 1 mg Insulin Human Isoph/Insulin Regular (Novolin 70/30 (70/30 Units/Ml) 10 Ml) 20 units SC BID [facility] Last Admin: 05/27/16 10:00 Dose: 20 units Insulin Human Regular (Novolin R) 0 unit SC [facility] PRN Reason: Protocol Last Admin: 05/27/16 08:00 Dose: 2 unit Labetalol HCl (Trandate) 200 mg PO Q12 [facility] Last Admin: 05/27/16 11:04 Dose: 200 mg Lisinopril (Zestril) 20 mg PO DAILY [facility] Last Admin: 05/27/16 09:03 Dose: 20 mg Metoclopramide HCl (Reglan) 10 mg IVP ACHS [facility] Last Admin: 05/27/16 07:30 Dose: 10 mg Ondansetron HCl (Zofran Inj) 4 mg IVP Q6H PRN PRN Reason: Nausea/Vomiting Last Admin: 05/27/16 06:39 Dose: 4 mg Pantoprazole Sodium (Protonix Inj) 40 mg IVP DAILY [facility] Last Admin: 05/27/16 09:04 Dose: 40 mg Sucralfate (Carafate Tab) 1 gm PO Q12 [facility] Last Admin: 05/27/16 09:03 Dose: 1 gm - Labs Labs: 05/26/16 13:28 - Respiratory Exam Additional comments: Lungs clear - Cardiovascular Exam Cardiovascular Exam: REGULAR RHYTHM - Extremities Exam Additional comments: No edema Assessment and Plan - Assessment and Plan (Free Text) Assessment: ESRD on HD HTN Abdominal pain IDDM Plan: Stable on dialysis. Continue HD per schedule
[2016-05-27] MEDS ORDERED: Dextrose 50% SYRINGE Inj (50 ml) ONE (15:45)
[2016-05-27] MEDS ORDERED: Dextrose 50% SYRINGE Inj (50 ml) IV ONE (15:50)
--- NOTE | 2016-05-27 21:44 | CON ---
DATE: 05/26/[address] Panda Armstrong, Dr. Lucero Mcgraw. I was called for GI consultation by the admitting medical team. The patient is seen and 40 examined on 217. The entire chart is reviewed, including, but not limited to the most recent lab and radiolog y study results, current and the previous medication lists, current and the previous medical events, allergy to medication list, as well as all the available current and the previous medical record. Ca se discussed at length with the staff on the floor. This is a 35-year-old male, very well known case for me from previous multiple admissions, readmitted to the hospital with recurrent episodes of nausea and vomiting with traces of blood in his vomit, as sociated with diarrhea on and off, but no reported rectal bleeding. No chest pain, significant short ness of breath, no chills or fever. PAST MEDICAL HISTORY: Including, but not limited to: 1. Hypertension. 2. Hyperlipidemia. 3. Peptic ulcer disease. 4. Diabetes mellitus with diabetic gastroparesis. 5. End-stage renal disease on hemodialysis. 6. Recurrent episodes of pancreatitis before. The patient recently had endoscopic evaluation of the GI tract, please see the patient reports. FAMILY HISTORY: Unknown. SOCIAL HISTORY: Positive for cigarette smoking on and off. No alcohol intake. ALLERGIES TO MEDICATION: Unclear. CURRENT MEDICATIONS: Medication list was reviewed. LABORATORY DATA: After being admitted to the hospital the patient was found to have leukocytosis of 16.2, with elevated blood glucose level of 194, and increased BUN to 35, with creatinine 4.3, compati ble with the patient's known history of end-stage renal disease. PHYSICAL EXAMINATION: GENERAL: A 35-year-old male. Awake, alert, oriented. Afebrile, complaining of crampy abdominal pain with pulse of 98, respiratory rate 20-22, with blood p ressure 210/104. HEENT: Showed dry, oral mucoid membrane. Nonicteric sclerae. LYMPH NODES: No lymphadenitis or lymphadenopathy. LUNGS: Scattered crepitation with decreased air entry at bases. HEART: Positive S1 and S2 with increased rate. ABDOMEN: Soft with generalized diffuse tenderness. No mass or organomegaly. No rebound tenderness or guarding. RECTAL: Positive tone. Vault is empty. EXTREMITIES: With mild lower extremities edematous changes. No clubbing or cyanosis. No new reported neurological deficit, sensory or motor. IMPRESSION: 1. Reexacerbation of peptic ulcer disease with diabetic gastroparesis. 2. Rule out an early stage of Mera-Buitrago tear. The patient to be observed very closely for any recurrent hematemesis. 3. Diarrhea, infectious versus mechanical. Rule out diabetic diarrhea, rule out pseudomembranous co litis. MULTIPLE PAST MEDICAL HISTORY: Including, but not limited to hypertension, hyperlipidemia, diabetes mellitus, end-stage renal disease, as well as reported congestive heart failure. SUGGESTION: 1. Agree with your plan. 2. Serum lipase, amylase level. Reglan IV. Complete stool workup. Flagyl IV 500 once a day. 3. Proton pump inhibitors. 4. Ultrasound of the abdomen with attention to the biliary tree and the pancreas. If there is subsequent drop of hemoglobin and hematocrit with recurrent nausea and vomiting, then upp er endoscopy to be considered. Otherwise close observation to follow. Thank you for letting me participate in your patient's case management. Panda Armstrong MD cc: 14 TT: 05/27/2016 21:43:37 Confirmation # [id number] Dictation # [id number] [email or web address]
[2016-05-28] MEDS: HYDROmorphone 1 mg/ml ISec IVP PRN ×4 (03:53→19:26)
[2016-05-28 06:21] LABS: HEMATOCRIT 39.9 % (35.0-51.0); MEAN CELL VOLUME 89.4 fL (80.0-94.0); MEAN CORPUSCULAR HEMOGLOBIN 27.9 pg (27.0-31.0); MEAN CORPUSCULAR HGB CONC 31.2 g/dL (33.0-37.0); MEAN PLATELET VOLUME 8.9 fL (7.2-11.7); RED CELL DISTRIBUTION WIDTH 16.6 % (11.5-14.5)
[2016-05-28 07:29] LABS: POTASSIUM 3.7 mmol/L (3.6-5.2)
--- NOTE | 2016-05-28 07:31 | CP.PCM.PN ---
Subjective - Date & Time of Evaluation Date of Evaluation: 05/28/16 Time of Evaluation: 10:00 - Subjective Subjective: Dr. Chadwick service: Patient seen and examined in room. Patient is admitted for in retractable nausea/vomiting. He says he does not know if the PO Reglan helped him at home or not. He Objective - Vital Signs/Intake and Output Vital Signs (last 24 hours): Temp Pulse Resp BP Pulse Ox 98.9 F 98 H 20 173/87 H 96 05/27/16 23:05 05/27/16 23:05 05/27/16 23:05 05/28/16 04:00 05/27/16 23:05 - Medications Medications: Current Medications Amlodipine Besylate (Norvasc) 10 mg PO DAILY [facility] Last Admin: 05/27/16 09:03 Dose: 10 mg Heparin Sodium (Porcine) (Heparin) 5,000 units SC Q8 [facility] Last Admin: 05/28/16 06:20 Dose: 5,000 units Heparin Sodium (Porcine) (Heparin) 3,700 units IVP [facility] [place] Stop: 06/07/16 09:01 Last Admin: 05/26/16 16:27 Dose: 3,700 units Hydralazine HCl (Apresoline) 50 mg PO Q8 [facility] Last Admin: 05/28/16 06:20 Dose: 50 mg Hydromorphone HCl (Dilaudid) 1 mg IVP Q4H PRN PRN Reason: Pain, severe (8-10) Last Admin: 05/28/16 03:53 Dose: 1 mg Insulin Human Isoph/Insulin Regular (Novolin 70/30 (70/30 Units/Ml) 10 Ml) 20 units SC BID [facility] Last Admin: 05/27/16 18:00 Dose: Not Given Insulin Human Regular (Novolin R) 0 unit SC [facility] PRN Reason: Protocol Last Admin: 05/27/16 22:14 Dose: 3 unit Labetalol HCl (Trandate) 200 mg PO Q12 [facility] Last Admin: 05/27/16 22:50 Dose: 200 mg Lisinopril (Zestril) 20 mg PO DAILY [facility] Last Admin: 05/27/16 09:03 Dose: 20 mg Metoclopramide HCl (Reglan) 10 mg IVP ACHS [facility] Last Admin: 05/27/16 22:50 Dose: Not Given Ondansetron HCl (Zofran Inj) 4 mg IVP Q6H PRN PRN Reason: Nausea/Vomiting Last Admin: 05/27/16 06:39 Dose: 4 mg Pantoprazole Sodium (Protonix Inj) 40 mg IVP DAILY [facility] Last Admin: 05/27/16 09:04 Dose: 40 mg Sucralfate (Carafate Tab) 1 gm PO Q12 [facility] Last Admin: 05/27/16 22:15 Dose: 1 gm - Labs Labs: 05/28/16 06:13 05/26/16 13:28 - Constitutional Appears: Non-toxic, No Acute Distress - Head Exam Head Exam: NORMAL INSPECTION - Eye Exam Eye Exam: Normal appearance Pupil Exam: NORMAL ACCOMODATION - Respiratory Exam Respiratory Exam: Clear to Ausculation Bilateral. absent: Rales, Rhonchi, Wheezes - Cardiovascular Exam Cardiovascular Exam: REGULAR RHYTHM, RRR, +S1, +S2. absent: Gallop, Rubs - GI/Abdominal Exam GI & Abdominal Exam: Soft, Normal Bowel Sounds. absent: Tenderness - Extremities Exam Extremities Exam: Normal Inspection. absent: Pedal Edema - Psychiatric Exam Psychiatric exam: Normal Affect, Normal Mood Assessment and Plan - Assessment and Plan (Free Text) Assessment: (1) Nausea and vomiting 05/28: Patient could be uremic but his symptoms seem to improve when he is admitted. Continue with current medication and follow up with Dr. Armstrong. Previous note: Patient is on Zofran 4mg IVP Q6H, Carafate 1gm bid, protonix 40mg IVP Reglan 5mg IVP ACHS, Dr. Armstrong consulted, help appreciated. Dilaudid 1mg q4h PRN for pain Last Colonoscopy 05/07/16: moderate nonbleeding internal hemorrhoids, two sessile polyps 10-11mm in colon and two 4-5mm polyps in transverse colon. Patient needs to repeat in 3 years. Status: Acute (2) ESRD (end stage renal disease) on dialysis Assessment & Plan: 05/28: US shows possible Vein stenosis of his AV fistula, Dr. Arce consulted Patient scheduled for surgery with Dr. Arce Tuesday, Previous note consult nephro- Dr. Plasencia Will continue current dialysis schedule of MWF Status: Chronic (3) DM2 (diabetes mellitus, type 2) Assessment & Plan: 05/28: changed his sliding scale to medium protocol. Previous note Continue Home insulin 70/30 20 units bid accucheck UMER RILEYS Status: Chronic (4) HTN (hypertension) Assessment & Plan: Continue Hydralazine 50mg Q8h, Zestril 20mg daily, Norvasc 10mg, Asprin 81m, Labetalol 200mg q12h Status: Chronic (5) Prophylactic measure Assessment & Plan: Protonix 40mg IVP Heparin 5000 units SC q12h Status: Acute
[2016-05-28 07:32] LABS: CALCIUM 7.6 mg/dl (8.6-10.4); PHOSPHOROUS 5.6 mg/dL (2.5-4.5)
[2016-05-28] MEDS: (Novolin R) Insulin Human Regular 100 units/ml vial SC SCH ×4 (08:00→22:34)
[2016-05-28] MEDS: (Novolin 70/30) NPH/Regular 70/30 Units/ml 10 ml vial SC SCH ×2 (09:54→19:25)
--- NOTE | 2016-05-28 11:47 | CP.PCM.PN ---
Subjective - Date & Time of Evaluation Date of Evaluation: 05/28/16 Time of Evaluation: 11:30 - Subjective Subjective: Appears comfortable in bed Objective - Vital Signs/Intake and Output Vital Signs (last 24 hours): Temp Pulse Resp BP Pulse Ox 98.6 F 88 20 151/80 H 97 05/28/16 08:33 05/28/16 08:33 05/28/16 08:33 05/28/16 08:33 05/28/16 08:33 - Medications Medications: Current Medications Amlodipine Besylate (Norvasc) 10 mg PO DAILY [facility] Last Admin: 05/28/16 09:46 Dose: 10 mg Heparin Sodium (Porcine) (Heparin) 5,000 units SC Q8 [facility] Last Admin: 05/28/16 06:20 Dose: 5,000 units Heparin Sodium (Porcine) (Heparin) 3,700 units IVP F [facility] Stop: 06/07/16 09:01 Last Admin: 05/26/16 16:27 Dose: 3,700 units Hydralazine HCl (Apresoline) 50 mg PO Q8 [facility] Last Admin: 05/28/16 06:20 Dose: 50 mg Hydromorphone HCl (Dilaudid) 1 mg IVP Q4H PRN PRN Reason: Pain, severe (8-10) Last Admin: 05/28/16 08:42 Dose: 1 mg Insulin Human Isoph/Insulin Regular (Novolin 70/30 (70/30 Units/Ml) 10 Ml) 20 units SC BID [facility] Last Admin: 05/28/16 09:54 Dose: 20 units Insulin Human Regular (Novolin R) 0 unit SC [facility] PRN Reason: Protocol Last Admin: 05/28/16 08:00 Dose: Not Given Labetalol HCl (Trandate) 200 mg PO Q12 [facility] Last Admin: 05/28/16 09:47 Dose: 200 mg Lisinopril (Zestril) 20 mg PO DAILY [facility] Last Admin: 05/28/16 09:46 Dose: 20 mg Metoclopramide HCl (Reglan) 10 mg IVP ACHS [facility] Last Admin: 05/28/16 08:00 Dose: 10 mg Ondansetron HCl (Zofran Inj) 4 mg IVP Q6H PRN PRN Reason: Nausea/Vomiting Last Admin: 05/27/16 06:39 Dose: 4 mg Pantoprazole Sodium (Protonix Inj) 40 mg IVP DAILY [facility] Last Admin: 05/28/16 09:47 Dose: 40 mg Sucralfate (Carafate Tab) 1 gm PO Q12 [facility] Last Admin: 05/28/16 09:46 Dose: 1 gm - Labs Labs: 05/28/16 06:13 05/28/16 06:13 - Respiratory Exam Additional comments: Lungs clear - Cardiovascular Exam Cardiovascular Exam: REGULAR RHYTHM - GI/Abdominal Exam GI & Abdominal Exam: Soft - Extremities Exam Additional comments: 1-2+ edema of both legs Assessment and Plan - Assessment and Plan (Free Text) Assessment: ESRD on maintenence HD Abdominal pain IDDM HTN Plan: For dialysis today Will increase UF goall Monitor BP
--- NOTE | 2016-05-28 11:49 | CP.PCM.PCO ---
Physician Communication Note - Physician Communication Note Physician Communication Note: Pt scheduled for superficialization of AV fistula , Tuesday.
[2016-05-28 12:06] LABS: ALB/GLOB RATIO 0.9 (1.0-2.1); BILIRUBIN,TOTAL 0.2 mg/dL (0.2-1.3); TOTAL PROTEIN 5.5 g/dL (6.3-8.3)
[2016-05-28 12:07] LABS: CALCIUM 7.4 mg/dl (8.6-10.4); MAGNESIUM 1.9 mg/dL (1.6-2.3); PHOSPHOROUS 5.5 mg/dL (2.5-4.5)
--- NOTE | 2016-05-28 12:22 | VASCLAB ---
PROCEDURE: Arterial-Venous shunt Evaluation. HISTORY: evalaute avf Check for maturity PRIORS: None. TECHNIQUE: Ultrasound evaluation of arterial-venous shunt with color doppler and velocity measurements. Report prepared by Franco Lyles RVT FINDINGS: Type of arterial-venous shunt: Left A-V_fistula straight Afferent Artery: Brachial Efferent Vein: Cephalic 1. Afferent Artery: Velocity 226.4 cm/s Image Characteristics: 2. Inflow Anastamosis: Velocity 103.3 cm/s Image Characteristics: Turbulent flow with normal velocity 3. Mid shunt flow: Velocity cm/s Image Characteristics: 4. Outflow Anastamosis: Velocity cm/s Image Characteristics: 5. Efferent Vein: Velocity 410.0 cm/s Image Characteristics: Turbulent flow with high velocities OTHER FINDINGS: None. IMPRESSION: Real time B-mode combine with Duplex examination of the left Brachio-cephalic AVF was performed. There was sustained high velocities noted in the proximal outflow vein proximal to the anastomosis with visible narrow area at this level which measured approximately 2.0 mm. Possible outflow vein stenosis.
--- NOTE | 2016-05-28 17:07 | PN ---
DATE: 05/28/2016 LOCATION: 653, bed B. This is a 36-year-old male seen and examined in rounds without significant clinical changes, still co mplaining of intermittent period of abdominal pain on and off. The entire chart is reviewed, includi ng but not limited to the most recent lab and radiology study results, current and previous medicatio n lists, current and the previous medical events with reported leukocytosis of 11.0 with low sodium, increased BUN and creatinine, on hemodialysis with increased blood glucose level to 233 with low calc ium 7.4 and elevated phosphorus 5.5 with low total protein 5.5, low albumin 2.6. PHYSICAL EXAMINATION: GENERAL: A 36-year-old male, appears to be awake, alert, oriented. VITAL SIGNS: Afebrile with pulse of 92 and blood pressure of 154/82. HEENT: Showed pale, dry oral mucoid membrane. Nonicteric sclerae. LUNGS: Scattered crepitation, decreased air entry at bases. HEART: Positive S1 and S2. ABDOMEN: Soft. Bowel sounds are present with mild distention. No mass or organomegaly. No rebound tenderness or guarding. EXTREMITIES: Lower extremities edematous changes. No clubbing or cyanosis. NEUROLOGIC: No new reported neurological deficits, sensory or motor. IMPRESSION: 1. Anemia, most likely secondary to chronic disease. 2. Reexacerbation of peptic ulcer disease. 3. Diarrhea, gradually improving, could be secondary to diabetic diarrhea. 4. Diabetic gastroparesis, improving. 5. Known history of end-stage renal disease on hemodialysis. 6. History of hypertension, hyperlipidemia, and congestive heart failure. SUGGESTION: 1. Continue current management. 2. May need azithromycin IV. 3. Increase the rate of Reglan dose. Panda Armstrong MD cc: 14 TT: 05/28/2016 17:07:16 Confirmation # [id number] Dictation # [id number]
[2016-05-29] MEDS: HYDROmorphone 1 mg/ml ISec IVP PRN ×6 (00:02→22:25)
[2016-05-29 07:04] LABS: POTASSIUM 3.7 mmol/L (3.6-5.2)
[2016-05-29 07:06] LABS: ALB/GLOB RATIO 0.9 (1.0-2.1); BILIRUBIN,TOTAL 0.5 mg/dL (0.2-1.3); TOTAL PROTEIN 5.8 g/dL (6.3-8.3)
[2016-05-29 07:07] LABS: CALCIUM 7.5 mg/dl (8.6-10.4)
[2016-05-29 07:15] LABS: BASO # 0.1 K/uL (0.0-0.2); EOS # 0.4 K/uL (0.0-0.7); EOS % 4.5 % (0.0-4.0); LYMPH # 1.9 K/uL (1.0-4.3); LYMPH % 20.1 % (20.0-40.0); MEAN CORPUSCULAR HEMOGLOBIN 28.5 pg (27.0-31.0); MEAN CORPUSCULAR HGB CONC 31.6 g/dL (33.0-37.0); MEAN PLATELET VOLUME 9.4 fL (7.2-11.7); MONO # 1.2 K/uL (0.0-0.8); NRBC % 0.1 % (0.0-2.0); RED CELL DISTRIBUTION WIDTH 17.1 % (11.5-14.5); WHITE BLOOD COUNT 9.6 K/uL (4.8-10.8)
[2016-05-29] MEDS: (Novolin R) Insulin Human Regular 100 units/ml vial SC SCH ×4 (07:30→21:38)
--- NOTE | 2016-05-29 08:26 | CP.PCM.PN ---
Subjective - Date & Time of Evaluation Date of Evaluation: 05/29/16 Time of Evaluation: 08:22 - Subjective Subjective: Surgery: Dr. Cole Pt seen and examined. No acute overnight events. States he's feeling fine and does not have any complaints at this time. Getting dialysis M,W,F through his permacath. Denies F/C. Objective - Vital Signs/Intake and Output Vital Signs (last 24 hours): Temp Pulse Resp BP Pulse Ox 98 F 89 20 138/66 98 05/28/16 23:05 05/29/16 06:00 05/28/16 23:05 05/29/16 06:00 05/28/16 23:05 Intake and Output: 05/29/16 05/29/16 06:59 18:59 Intake Total 610 Balance 610 - Medications Medications: Current Medications Amlodipine Besylate (Norvasc) 10 mg PO DAILY [facility] Last Admin: 05/28/16 09:46 Dose: 10 mg Heparin Sodium (Porcine) (Heparin) 5,000 units SC Q8 [facility] Last Admin: 05/29/16 06:13 Dose: Not Given Heparin Sodium (Porcine) (Heparin) 3,700 units IVP MWF [facility] Stop: 06/07/16 09:01 Last Admin: 05/28/16 16:37 Dose: 3,700 units Hydralazine HCl (Apresoline) 50 mg PO Q8 [facility] Last Admin: 05/29/16 06:14 Dose: 50 mg Hydromorphone HCl (Dilaudid) 1 mg IVP Q4H PRN PRN Reason: Pain, severe (8-10) Last Admin: 05/29/16 08:06 Dose: 1 mg Insulin Human Isoph/Insulin Regular (Novolin 70/30 (70/30 Units/Ml) 10 Ml) 20 units SC BID [facility] Last Admin: 05/28/16 19:25 Dose: 20 units Insulin Human Regular (Novolin R) 0 unit SC ACHS [facility] PRN Reason: Protocol Last Admin: 05/28/16 22:34 Dose: Not Given Labetalol HCl (Trandate) 200 mg PO Q12 [facility] Last Admin: 05/28/16 22:33 Dose: 200 mg Lisinopril (Zestril) 20 mg PO DAILY [facility] Last Admin: 05/28/16 09:46 Dose: 20 mg Metoclopramide HCl (Reglan) 10 mg IVP ACHS [facility] Last Admin: 05/28/16 22:33 Dose: Not Given Ondansetron HCl (Zofran Inj) 4 mg IVP Q6H PRN PRN Reason: Nausea/Vomiting Last Admin: 05/27/16 06:39 Dose: 4 mg Pantoprazole Sodium (Protonix Inj) 40 mg IVP DAILY [facility] Last Admin: 05/28/16 09:47 Dose: 40 mg Sucralfate (Carafate Tab) 1 gm PO Q12 [facility] Last Admin: 05/28/16 22:33 Dose: 1 gm - Labs Labs: 05/29/16 06:28 05/29/16 06:28 - Constitutional Appears: Well, No Acute Distress - Eye Exam Eye Exam: Normal appearance - Respiratory Exam Respiratory Exam: NORMAL BREATHING PATTERN - Cardiovascular Exam Cardiovascular Exam: RRR - GI/Abdominal Exam GI & Abdominal Exam: Soft. absent: Tenderness - Extremities Exam Additional comments: L arm AVF with palpable thrill - Neurological Exam Neurological Exam: Alert, Awake, Oriented x3 - Skin Skin Exam: Dry, Intact, Warm Assessment and Plan - Assessment and Plan (Free Text) Assessment: 36M with ESRD Plan: - OR mon for L AVF superficialization - Keep NPO after midnight on Sun - d/w Dr. Douglas Kim, PGY-2 Surgery
[2016-05-29] MEDS: (Novolin 70/30) NPH/Regular 70/30 Units/ml 10 ml vial SC SCH ×2 (10:28→18:04)
[2016-05-30] MEDS: HYDROmorphone 1 mg/ml ISec IVP PRN ×6 (02:34→23:43)
[2016-05-30 06:36] LABS: ALB/GLOB RATIO 0.9 (1.0-2.1); BILIRUBIN,TOTAL 0.5 mg/dL (0.2-1.3); PHOSPHOROUS 4.8 mg/dL (2.5-4.5); TOTAL PROTEIN 5.6 g/dL (6.3-8.3)
[2016-05-30 06:37] LABS: CALCIUM 7.6 mg/dl (8.6-10.4)
[2016-05-30] MEDS: (Novolin R) Insulin Human Regular 100 units/ml vial SC SCH ×4 (07:30→21:33)
[2016-05-30 08:02] LABS: BASO # 0.1 K/uL (0.0-0.2); BASO % 0.7 % (0.0-2.0); EOS # 0.5 K/uL (0.0-0.7); EOS % 4.8 % (0.0-4.0); HEMATOCRIT 36.7 % (35.0-51.0); LYMPH # 1.8 K/uL (1.0-4.3); LYMPH % 16.9 % (20.0-40.0); MEAN CORPUSCULAR HEMOGLOBIN 28.4 pg (27.0-31.0); MEAN CORPUSCULAR HGB CONC 31.5 g/dL (33.0-37.0); MEAN PLATELET VOLUME 9.1 fL (7.2-11.7); MONO # 1.2 K/uL (0.0-0.8); MONO % 11.8 % (0.0-10.0); RED CELL DISTRIBUTION WIDTH 17.1 % (11.5-14.5); WHITE BLOOD COUNT 10.5 K/uL (4.8-10.8)
[2016-05-30] MEDS: (Novolin 70/30) NPH/Regular 70/30 Units/ml 10 ml vial SC SCH ×2 (09:25→18:04)
--- NOTE | 2016-05-30 10:09 | PN ---
DATE: 05/30/2016 LOCATION: 653, bed B. This is a 36-year-old male, seen and examined in rounds without significant clinical changes, but int ermittent periods of severe abdominal pain on and off with nausea and dyspepsia. No reported active bleeding. The patient had been on hemodialysis recently. The patient tolerating oral intake well. The entire chart is reviewed, including but not limited to, the most recent lab and radiology study r esults, current and previous medication lists, current and previous medical events. Case discussed w ith the staff on the floor at length and the latest hemoglobin is 11.6 with increased BUN 46, creatin ine 6.1, blood glucose level elevated to 167 with low calcium 8.4 and decreased phosphorus 4.8 with l ow albumin 2.6, low total protein 5.6. PHYSICAL EXAMINATION: GENERAL: A 36-year-old male, awake, alert, oriented. VITAL SIGNS: Afebrile, pulse of 88 with blood pressure of 170/78, respiratory rate 20-22. HEENT: Showed pale, dry oral mucoid membrane. Nonicteric sclerae. LUNGS: Few scattered crepitation, decreased air entry at bases. HEART: Positive S1 and S2. ABDOMEN: Soft. Bowel sounds are present. EXTREMITIES: Without significant clubbing, cyanosis or edema. NEUROLOGIC: No new reported neurological deficits, sensory or motor. IMPRESSION: 1. Peptic ulcer disease. 2. Diabetic gastroparesis. 3. Recent history of diarrhea, subsided, which could be secondary to diabetic diarrhea. 4. Known history of end-stage renal disease on hemodialysis, history of hypertension, congestive hea rt failure and hyperlipidemia as well as electrolyte imbalance. SUGGESTION: 1. Continue current management. 2. Change Reglan to p.o. 3. Follow up on serum lipase, amylase level. Panda Armstrong MD cc: 14 TT: 05/30/2016 10:08:33 Confirmation # [id number] Dictation # [id number]
--- NOTE | 2016-05-30 14:29 | CP.PCM.PN ---
Subjective - Date & Time of Evaluation Date of Evaluation: 05/30/16 Time of Evaluation: 08:30 - Subjective Subjective: Pt S&E with attending. GABBIE. Pt has no complaints. Objective - Vital Signs/Intake and Output Vital Signs (last 24 hours): Temp Pulse Resp BP Pulse Ox 98.5 F 88 97 H 174/86 H 97 05/30/16 07:41 05/30/16 07:41 05/30/16 07:41 05/30/16 07:41 05/30/16 05:55 Intake and Output: 05/30/16 05/30/16 06:59 18:59 Intake Total 720 Balance 720 - Medications Medications: Current Medications Amlodipine Besylate (Norvasc) 10 mg PO DAILY [facility] Last Admin: 05/30/16 09:21 Dose: 10 mg Hydralazine HCl (Apresoline) 50 mg PO Q8 [facility] Last Admin: 05/30/16 06:00 Dose: 50 mg Hydromorphone HCl (Dilaudid) 1 mg IVP Q4H PRN PRN Reason: Pain, severe (8-10) Last Admin: 05/30/16 10:43 Dose: 1 mg Insulin Human Isoph/Insulin Regular (Novolin 70/30 (70/30 Units/Ml) 10 Ml) 20 units SC BID [facility] Last Admin: 05/30/16 09:25 Dose: 20 units Insulin Human Regular (Novolin R) 0 unit SC ACHS [facility] PRN Reason: Protocol Last Admin: 05/30/16 11:55 Dose: Not Given Labetalol HCl (Trandate) 200 mg PO Q12 [facility] Last Admin: 05/30/16 09:21 Dose: 200 mg Lisinopril (Zestril) 20 mg PO DAILY [facility] Last Admin: 05/30/16 09:21 Dose: 20 mg Metoclopramide HCl (Reglan) 10 mg IVP ACHS [facility] Last Admin: 05/30/16 11:30 Dose: Not Given Ondansetron HCl (Zofran Inj) 4 mg IVP Q6H PRN PRN Reason: Nausea/Vomiting Last Admin: 05/27/16 06:39 Dose: 4 mg Pantoprazole Sodium (Protonix Inj) 40 mg IVP DAILY [facility] Last Admin: 05/30/16 09:21 Dose: 40 mg Sucralfate (Carafate Tab) 1 gm PO Q12 [facility] Last Admin: 05/30/16 09:21 Dose: 1 gm - Labs Labs: 05/30/16 06:00 05/30/16 06:00 - Constitutional Appears: Non-toxic, No Acute Distress - Eye Exam Eye Exam: EOMI. absent: Scleral icterus - ENT Exam ENT Exam: Mucous Membranes Moist - Respiratory Exam Respiratory Exam: NORMAL BREATHING PATTERN. absent: Respiratory Distress - Cardiovascular Exam Cardiovascular Exam: +S1, +S2 - GI/Abdominal Exam GI & Abdominal Exam: Soft. absent: Firm, Guarding, Rigid, Tenderness - Neurological Exam Neurological Exam: Alert, Awake - Psychiatric Exam Psychiatric exam: Normal Affect, Normal Mood - Skin Skin Exam: Dry, Warm Assessment and Plan - Assessment and Plan (Free Text) Assessment: 36M with ESRD - OR mon for L AVF superficialization - Keep NPO after midnight - d/w Dr. Douglas Silver PGY1
[2016-05-31] MEDS: HYDROmorphone 1 mg/ml ISec IVP PRN ×4 (03:52→21:12)
[2016-05-31 06:26] LABS: BASO # 0.1 K/uL (0.0-0.2); BASO % 0.7 % (0.0-2.0); EOS # 0.5 K/uL (0.0-0.7); EOS % 4.8 % (0.0-4.0); HEMATOCRIT 36.9 % (35.0-51.0); LYMPH # 1.7 K/uL (1.0-4.3); LYMPH % 15.6 % (20.0-40.0); MEAN CELL VOLUME 89.8 fL (80.0-94.0); MEAN CORPUSCULAR HEMOGLOBIN 28.8 pg (27.0-31.0); MEAN CORPUSCULAR HGB CONC 32.1 g/dL (33.0-37.0); MEAN PLATELET VOLUME 8.9 fL (7.2-11.7); MONO # 1.3 K/uL (0.0-0.8); MONO % 12.1 % (0.0-10.0); RED CELL DISTRIBUTION WIDTH 17.3 % (11.5-14.5); WHITE BLOOD COUNT 10.6 K/uL (4.8-10.8)
[2016-05-31 06:41] LABS: POTASSIUM 4.2 mmol/L (3.6-5.2)
[2016-05-31 06:43] LABS: ALB/GLOB RATIO 0.9 (1.0-2.1); BILIRUBIN,TOTAL 0.5 mg/dL (0.2-1.3); TOTAL PROTEIN 5.8 g/dL (6.3-8.3)
[2016-05-31 06:44] LABS: CALCIUM 7.9 mg/dl (8.6-10.4); PHOSPHOROUS 5.6 mg/dL (2.5-4.5)
[2016-05-31 06:45] LABS: MAGNESIUM 1.9 mg/dL (1.6-2.3)
[2016-05-31 06:50] LABS: INR 0.9
--- NOTE | 2016-05-31 07:22 | PN ---
DATE: 05/29/2016 Patient nausea and weakness. Scheduled for shunt revision. Supportive care. Lucero Mcgraw MD cc: [id number] TT: 05/30/2016 00:43:20 Confirmation # [id number] Dictation # [id number] 05/31/2016 06:21:28
[2016-05-31] MEDS: (Novolin R) Insulin Human Regular 100 units/ml vial SC SCH ×4 (07:30→21:14)
[2016-05-31] MEDS ORDERED: Propofol 10 mg/ml Inj (20 ML) ONE ×2 (09:14→11:16)
[2016-05-31] MEDS ORDERED: Midazolam 2 MG/2 ML VIAL ONE (09:16)
--- NOTE | 2016-05-31 09:35 | CP.PCM.PN ---
Subjective - Date & Time of Evaluation Date of Evaluation: 05/31/16 Time of Evaluation: 08:00 - Subjective Subjective: Medicine Note- Dr. Chadwick's service Patient was seen and examined at bedside. Patient reports no acute complaints at this time. No events overnight per nursing. Patient is NPO, scheduled for AVF superficialization today. Objective - Vital Signs/Intake and Output Vital Signs (last 24 hours): Temp Pulse Resp BP Pulse Ox 98.1 F 87 18 162/85 H 99 05/31/16 07:25 05/31/16 07:25 05/31/16 07:25 05/31/16 07:25 05/31/16 07:25 Intake and Output: 05/31/16 05/31/16 06:59 18:59 Intake Total 250 Balance 250 - Medications Medications: Current Medications Amlodipine Besylate (Norvasc) 10 mg PO DAILY [facility] Last Admin: 05/30/16 09:21 Dose: 10 mg Hydralazine HCl (Apresoline) 50 mg PO Q8 [facility] Last Admin: 05/31/16 07:53 Dose: 50 mg Hydromorphone HCl (Dilaudid) 1 mg IVP Q4H PRN PRN Reason: Pain, severe (8-10) Last Admin: 05/31/16 07:53 Dose: 1 mg Insulin Human Isoph/Insulin Regular (Novolin 70/30 (70/30 Units/Ml) 10 Ml) 20 units SC BID [facility] Last Admin: 05/30/16 18:04 Dose: Not Given Insulin Human Regular (Novolin R) 0 unit SC ACHS [facility] PRN Reason: Protocol Last Admin: 05/30/16 21:33 Dose: Not Given Labetalol HCl (Trandate) 200 mg PO Q12 [facility] Last Admin: 05/30/16 21:44 Dose: 200 mg Lisinopril (Zestril) 20 mg PO DAILY [facility] Last Admin: 05/30/16 09:21 Dose: 20 mg Metoclopramide HCl (Reglan) 10 mg IVP ACHS [facility] Last Admin: 05/30/16 21:44 Dose: 10 mg Ondansetron HCl (Zofran Inj) 4 mg IVP Q6H PRN PRN Reason: Nausea/Vomiting Last Admin: 05/27/16 06:39 Dose: 4 mg Pantoprazole Sodium (Protonix Inj) 40 mg IVP DAILY [facility] Last Admin: 05/30/16 09:21 Dose: 40 mg Sucralfate (Carafate Tab) 1 gm PO Q12 [facility] Last Admin: 05/30/16 21:43 Dose: 1 gm - Labs Labs: 05/31/16 06:11 05/31/16 06:11 PT 9.6 SECONDS (9.7-12.2) L 05/31/16 06:11 INR 0.9 05/31/16 06:11 APTT 31 SECONDS (21-34) 05/31/16 06:11 - Constitutional Appears: Non-toxic, No Acute Distress - Head Exam Head Exam: ATRAUMATIC, NORMAL INSPECTION, NORMOCEPHALIC - Eye Exam Pupil Exam: NORMAL ACCOMODATION - ENT Exam ENT Exam: Mucous Membranes Moist - Respiratory Exam Respiratory Exam: Clear to Ausculation Bilateral, NORMAL BREATHING PATTERN. absent: Prolonged Expiratory Phase, Rales, Rhonchi, Wheezes - Cardiovascular Exam Cardiovascular Exam: REGULAR RHYTHM, +S1, +S2 - GI/Abdominal Exam GI & Abdominal Exam: Soft, Normal Bowel Sounds. absent: Tenderness, Diminished Bowel Sounds, Hypoactive Bowel Sounds - Extremities Exam Extremities Exam: Normal Capillary Refill, Normal Inspection - Neurological Exam Neurological Exam: Alert, Awake, Oriented x3 - Psychiatric Exam Psychiatric exam: Normal Affect, Normal Mood - Skin Skin Exam: Dry, Intact, Normal Color, Warm Assessment and Plan - Assessment and Plan (Free Text) Assessment: (1) Nausea and vomiting Patient is on Zofran 4mg IVP Q6H, Carafate 1gm bid, protonix 40mg IVP Reglan 5mg IVP Dr. Nathaniel OWUSU consulted, help appreciated. Dilaudid 1mg q4h PRN for pain Last Colonoscopy 05/07/16: moderate nonbleeding internal hemorrhoids, two sessile polyps 10-11mm in colon and two 4-5mm polyps in transverse colon. Patient needs to repeat in 3 years. Status: Acute (2) ESRD (end stage renal disease) on dialysis Assessment & Plan: consult nephro- Dr. Plasencia Consult surgery- [place] Will continue current dialysis schedule of MWF Patient is NPO for superficialization of AV fistula today Status: Chronic (3) DM2 (diabetes mellitus, type 2) Assessment & Plan: Continue Home insulin 70/30 20 units bid accucheck ACHS RISS Status: Chronic (4) HTN (hypertension) Assessment & Plan: Continue Hydralazine 50mg Q8h, Zestril 20mg daily, Norvasc 10mg, Asprin 81m, Labetalol 200mg q12h Status: Chronic (5) Prophylactic measure Assessment & Plan: Protonix 40mg IVP Heparin 5000 units SC q12h Status: Acute
[2016-05-31] MEDS ORDERED: ceFAZolin 1 gm FROZEN Premix 50 ML IVPB ONE (09:38)
[2016-05-31] MEDS ORDERED: Sodium Chloride 0.9% 500 ML IV ONE ×2 (09:45→11:53)
[2016-05-31] MEDS ORDERED: [UNRECOGNIZED DRUG - OTHER] IV ONE (09:55)
[2016-05-31] MEDS: (Novolin 70/30) NPH/Regular 70/30 Units/ml 10 ml vial SC SCH ×2 (10:00→19:28)
[2016-05-31] MEDS ORDERED: Sodium Chloride 0.9% 250 ML IV ONE (11:00)
--- NOTE | 2016-05-31 11:34 | PCM.SURG1 ---
Surgeon's Initial Post Op Note - Surgeon's Notes Surgeon: Dr. Cole Print Binding Worker: Dr. Black PGY-2 Type of Anesthesia: General Endo Pre-Operative Diagnosis: Renal failure Operative Findings: see operative report Post-Operative Diagnosis: Renal failure Operation Performed: Left AV Fistula revision with transposition of basilic vein Specimen/Specimens Removed: none Estimated Blood Loss: EBL {In ML}: 25 Blood Products Given: N/A Drains Used: No Drains Post-Op Condition: Fair Date of Surgery/Procedure: 05/31/16 Time of Surgery/Procedure: 11:33
[2016-05-31] MEDS ORDERED: HYDROmorphone 0.5 mg/0.5 ml ISec ONE (11:43)
[2016-05-31] MEDS: HYDROmorphone 0.5 mg/0.5 ml ISec IVP PRN ×2 (11:45→12:05)
--- NOTE | 2016-05-31 12:06 | OP ---
PROCEDURE DATE: 05/31/2016 PREOPERATIVE DIAGNOSIS: Renal failure, immature fistula - left arm. PROCEDURE CARRIED OUT: Revision of arteriovenous fistula with basilic vein transposition. SURGEON: Maxi Cole Jr., MD. LIQUEFIED PETROLEUM GASFITTER: Dr. Black. ANESTHESIOLOGIST: Deepti Wang CRNA. INDICATIONS: The patient is a middle-aged man with a variety of medical problems including dialysis. He had a fistula created in his left arm. OPERATIVE FINDINGS: The vein itself was relatively small, measuring approximately 5-6 mm. The rest of the intraoperative findings were unremarkable. At the end of the procedure, we had excellent flow through the fistula, but it was relatively small. Although after we dilated it hydrostatically, it did increase in size to just under 6 mm. PROCEDURE: The patient was given general anesthesia, intravenous antibiotics. The vein had been mar ked on the skin. It was dissected out from the surrounding tissues. Branches and tributaries ligate d, hydrostatic dilatation carried out via side branch, and then we transposed it into the subcutaneou s tissues and closed the skin on top of it. Blood loss of the procedure was minimal, 20-25 mL. OPERATION CARRIED OUT: Revision of arteriovenous fistula - left arm with basilic vein transposition. Maxi Cole Jr., MD cc:Lucero Mcgraw MD; Watson Plasencia MD 56 TT: 05/31/2016 12:05:51 jn
--- NOTE | 2016-05-31 12:56 | CP.PCM.PN ---
Subjective - Date & Time of Evaluation Date of Evaluation: 05/31/16 Time of Evaluation: 12:25 - Subjective Subjective: Alert. Comfortable in bed Objective - Vital Signs/Intake and Output Vital Signs (last 24 hours): Temp Pulse Resp BP Pulse Ox 97.3 F L 87 10 L 136/78 100 05/31/16 12:30 05/31/16 12:30 05/31/16 12:30 05/31/16 12:30 05/31/16 12:30 Intake and Output: 05/31/16 05/31/16 06:59 18:59 Intake Total 250 Balance 250 - Medications Medications: Current Medications Amlodipine Besylate (Norvasc) 10 mg PO DAILY [facility] Last Admin: 05/30/16 09:21 Dose: 10 mg Hydralazine HCl (Apresoline) 50 mg PO Q8 [facility] Last Admin: 05/31/16 07:53 Dose: 50 mg Hydromorphone HCl (Dilaudid) 1 mg IVP Q4H PRN PRN Reason: Pain, severe (8-10) Last Admin: 05/31/16 07:53 Dose: 1 mg Hydromorphone HCl (Dilaudid) 0.5 mg IVP Q5M PRN PRN Reason: Pain, Mild (1-3) Stop: 05/31/16 13:30 Last Admin: 05/31/16 12:05 Dose: 0.5 mg Insulin Human Isoph/Insulin Regular (Novolin 70/30 (70/30 Units/Ml) 10 Ml) 20 units SC BID [facility] Last Admin: 05/30/16 18:04 Dose: Not Given Insulin Human Regular (Novolin R) 0 unit SC [facility] PRN Reason: Protocol Last Admin: 05/30/16 21:33 Dose: Not Given Labetalol HCl (Trandate) 200 mg PO Q12 [facility] Last Admin: 05/30/16 21:44 Dose: 200 mg Lisinopril (Zestril) 20 mg PO DAILY [facility] Last Admin: 05/30/16 09:21 Dose: 20 mg Metoclopramide HCl (Reglan) 10 mg IVP ACHS [facility] Last Admin: 05/30/16 21:44 Dose: 10 mg Ondansetron HCl (Zofran Inj) 4 mg IVP Q6H PRN PRN Reason: Nausea/Vomiting Last Admin: 05/27/16 06:39 Dose: 4 mg Ondansetron HCl (Zofran Inj) 4 mg IVP ONCE PRN PRN Reason: Nausea/Vomiting Stop: 05/31/16 13:31 Pantoprazole Sodium (Protonix Inj) 40 mg IVP DAILY [facility] Last Admin: 05/30/16 09:21 Dose: 40 mg Sucralfate (Carafate Tab) 1 gm PO Q12 [facility] Last Admin: 05/30/16 21:43 Dose: 1 gm - Labs Labs: 05/31/16 06:11 05/31/16 06:11 PT 9.6 SECONDS (9.7-12.2) L 05/31/16 06:11 INR 0.9 05/31/16 06:11 APTT 31 SECONDS (21-34) 05/31/16 06:11 - Respiratory Exam Additional comments: Lungs clear - Cardiovascular Exam Cardiovascular Exam: REGULAR RHYTHM - GI/Abdominal Exam GI & Abdominal Exam: Soft - Extremities Exam Additional comments: No edema Lt arm dressing C & D. + bruit Assessment and Plan - Assessment and Plan (Free Text) Assessment: ESRD on HD S/P revision of Lt arm AVF HTN IDDM Plan: For dialysis today Labs stable
--- NOTE | 2016-05-31 17:21 | PN ---
DATE: 05/31/2016 LOCATION: 30, bed B. This is a 36-year-old male seen and examined in rounds without significant clinical changes. He had a left upper arm AV shunt with the complaint of pain, severe at times postsurgery. No reported abdominal pain or active bleeding this morning. Most recent lab results, current and previous medication lists, current and the previous medical poly rds were reviewed and the patient still has low hemoglobin of 11.8, but normal white blood cells and normal platelet count with normal PT and PTT, but low sodium 131, increased BUN 61, creatinine 6.7 wi th blood glucose level of 168 with low calcium 7.9, but increased phosphorus to 5.6 with low albumin and low total protein. PHYSICAL EXAMINATION: GENERAL: A 36-year-old male appeared to be awake, alert, oriented, complaining of AV shunt, severe p ain. VITAL SIGNS: Afebrile with a pulse of 84, respiratory rate 20-22, blood pressure of 144/76. HEENT: Showed pale, dry oral mucoid membrane. Nonicteric sclerae. LUNGS: Few scattered crepitation, decreased air entry at bases. HEART: Positive S1 and S2. ABDOMEN: Soft. Bowel sounds are present with mild generalized tenderness. No mass or organomegaly. No rebound tenderness or guarding. EXTREMITIES: Without significant edema, clubbing or cyanosis. IMPRESSION: 1. Diabetic gastroparesis with reexacerbation of peptic ulcer disease. 2. End-stage renal disease on hemodialysis. 3. Known history of hypertension, diabetes mellitus. 4. Anemia, most likely secondary to above with electrolyte imbalance. 5. Reported history of congestive heart failure, more stable now. 6. Known history of hyperlipidemia. SUGGESTION: 1. Continue current management. 2. Repeat stool for occult blood as well as culture and sensitivity. 3. No need for aggressive GI workup in the meantime until the patient is more stable clinically. Panda Armstrong MD cc: [id number] TT: 05/31/2016 17:20:23 Confirmation # [id number] Dictation # [id number] mn
[2016-05-31 19:32] VITALS: RESP 20
[2016-06-01] MEDS: HYDROmorphone 1 mg/ml ISec IVP PRN ×3 (01:13→09:23)
[2016-06-01 05:12] VITALS: TEMP 99.1
[2016-06-01 08:01] LABS: BASO # 0.1 K/uL (0.0-0.2); BASO % 0.5 % (0.0-2.0); EOS # 0.4 K/uL (0.0-0.7); EOS % 3.3 % (0.0-4.0); HEMATOCRIT 38.4 % (35.0-51.0); LYMPH # 1.2 K/uL (1.0-4.3); LYMPH % 10.5 % (20.0-40.0); MEAN CELL VOLUME 88.9 fL (80.0-94.0); MEAN CORPUSCULAR HGB CONC 31.5 g/dL (33.0-37.0); MEAN PLATELET VOLUME 9.1 fL (7.2-11.7); MONO # 1.2 K/uL (0.0-0.8); MONO % 10.7 % (0.0-10.0); RED CELL DISTRIBUTION WIDTH 17.2 % (11.5-14.5); WHITE BLOOD COUNT 11.2 K/uL (4.8-10.8)
[2016-06-01 08:14] LABS: POTASSIUM 4.4 mmol/L (3.6-5.2)
[2016-06-01 08:16] LABS: ALB/GLOB RATIO 0.9 (1.0-2.1); BILIRUBIN,TOTAL 0.4 mg/dL (0.2-1.3); TOTAL PROTEIN 6.2 g/dL (6.3-8.3)
[2016-06-01 08:17] VITALS: BP 126/75; PULSE 95; O2SAT 98
[2016-06-01 08:17] LABS: CALCIUM 8.6 mg/dl (8.6-10.4); MAGNESIUM 1.9 mg/dL (1.6-2.3); PHOSPHOROUS 5.4 mg/dL (2.5-4.5)
[2016-06-01] MEDS: (Novolin R) Insulin Human Regular 100 units/ml vial SC SCH ×2 (08:23→12:41)
[2016-06-01] MEDS: (Novolin 70/30) NPH/Regular 70/30 Units/ml 10 ml vial SC SCH (09:22)
--- NOTE | 2016-06-01 09:40 | CP.PCM.PN ---
Subjective - Date & Time of Evaluation Date of Evaluation: 06/01/16 Time of Evaluation: 06:30 - Subjective Subjective: Vascular Surgery Dr. Cole Pt S&E @bedside. pt had superficialization of L AVF yesterday. Pt tolerated the procedure well and w/o complication. NAEO. c/o pain though controlled w/ medication. denies F/C, CP, SOB, N/V, D/C. (+) BM. tolerating renal diet. Objective - Vital Signs/Intake and Output Vital Signs (last 24 hours): Temp Pulse Resp BP Pulse Ox 99.1 F 95 H 20 126/75 98 06/01/16 07:17 06/01/16 07:17 06/01/16 07:17 06/01/16 07:17 06/01/16 09:29 Intake and Output: 06/01/16 06/01/16 06:59 18:59 Intake Total 120 Balance 120 - Medications Medications: Current Medications Amlodipine Besylate (Norvasc) 10 mg PO DAILY [facility] Last Admin: 06/01/16 09:24 Dose: 10 mg Hydralazine HCl (Apresoline) 50 mg PO Q8 [facility] Last Admin: 06/01/16 05:24 Dose: 50 mg Hydromorphone HCl (Dilaudid) 1 mg IVP Q4H PRN PRN Reason: Pain, severe (8-10) Last Admin: 06/01/16 09:23 Dose: 1 mg Insulin Human Isoph/Insulin Regular (Novolin 70/30 (70/30 Units/Ml) 10 Ml) 20 units SC BID [facility] Last Admin: 06/01/16 09:22 Dose: 20 units Insulin Human Regular (Novolin R) 0 unit SC ACHS [facility] PRN Reason: Protocol Last Admin: 06/01/16 08:23 Dose: Not Given Labetalol HCl (Trandate) 200 mg PO Q12 [facility] Last Admin: 06/01/16 09:24 Dose: 200 mg Lisinopril (Zestril) 20 mg PO DAILY [facility] Last Admin: 06/01/16 09:24 Dose: 20 mg Metoclopramide HCl (Reglan) 10 mg IVP ACHS [facility] Last Admin: 06/01/16 08:23 Dose: 10 mg Ondansetron HCl (Zofran Inj) 4 mg IVP Q6H PRN PRN Reason: Nausea/Vomiting Last Admin: 05/27/16 06:39 Dose: 4 mg Pantoprazole Sodium (Protonix Inj) 40 mg IVP DAILY [facility] Last Admin: 06/01/16 09:22 Dose: 40 mg Sucralfate (Carafate Tab) 1 gm PO Q12 [facility] Last Admin: 06/01/16 09:24 Dose: 1 gm - Labs Labs: 06/01/16 07:50 06/01/16 07:50 PT 9.6 SECONDS (9.7-12.2) L 05/31/16 06:11 INR 0.9 05/31/16 06:11 APTT 31 SECONDS (21-34) 05/31/16 06:11 - Constitutional Appears: Non-toxic, No Acute Distress - Head Exam Head Exam: ATRAUMATIC, NORMOCEPHALIC - ENT Exam ENT Exam: Mucous Membranes Moist - Respiratory Exam Respiratory Exam: Clear to Ausculation Bilateral, NORMAL BREATHING PATTERN. absent: Accessory Muscle Use, Decreased Breath Sounds, Rales, Rhonchi, Wheezes, Respiratory Distress, Stridor - Cardiovascular Exam Cardiovascular Exam: REGULAR RHYTHM, RRR, +S1, +S2. absent: Gallop, Rubs, Murmur - GI/Abdominal Exam GI & Abdominal Exam: Soft, Normal Bowel Sounds. absent: Distended - Extremities Exam Additional comments: dressing c/d/i palpable thrill present - Neurological Exam Neurological Exam: Alert, Awake, Oriented x3 - Psychiatric Exam Psychiatric exam: Normal Affect, Normal Mood - Skin Skin Exam: Dry, Intact, Normal Color, Warm Assessment and Plan - Assessment and Plan (Free Text) Assessment: 36 y/o M POD#1 s/p L AVF superficialization - transition to PO pain meds - cont medical management - no further surgical intervention Further recs per Dr. Douglas Chiu DO PGY1
--- NOTE | 2016-06-01 10:07 | CP.PCM.PN ---
Subjective - Date & Time of Evaluation Date of Evaluation: 06/01/16 Time of Evaluation: 07:30 - Subjective Subjective: Medicine Note- Dr. Chadwick's service Patient was seen and examined at bedside. Patient reports that he has a lot of pain at the site of the AVF revision, but otherwise he is doing okay. No events overnight, per nursing. Objective - Vital Signs/Intake and Output Vital Signs (last 24 hours): Temp Pulse Resp BP Pulse Ox 99.1 F 95 H 20 126/75 98 06/01/16 07:17 06/01/16 07:17 06/01/16 07:17 06/01/16 07:17 06/01/16 09:29 Intake and Output: 06/01/16 06/01/16 06:59 18:59 Intake Total 120 Balance 120 - Medications Medications: Current Medications Amlodipine Besylate (Norvasc) 10 mg PO DAILY [facility] Last Admin: 06/01/16 09:24 Dose: 10 mg Hydralazine HCl (Apresoline) 50 mg PO Q8 [facility] Last Admin: 06/01/16 05:24 Dose: 50 mg Hydromorphone HCl (Dilaudid) 1 mg IVP Q4H PRN PRN Reason: Pain, severe (8-10) Last Admin: 06/01/16 09:23 Dose: 1 mg Insulin Human Isoph/Insulin Regular (Novolin 70/30 (70/30 Units/Ml) 10 Ml) 20 units SC BID [facility] Last Admin: 06/01/16 09:22 Dose: 20 units Insulin Human Regular (Novolin R) 0 unit SC [facility] PRN Reason: Protocol Last Admin: 06/01/16 08:23 Dose: Not Given Labetalol HCl (Trandate) 200 mg PO Q12 [facility] Last Admin: 06/01/16 09:24 Dose: 200 mg Lisinopril (Zestril) 20 mg PO DAILY [facility] Last Admin: 06/01/16 09:24 Dose: 20 mg Metoclopramide HCl (Reglan) 10 mg IVP ACHS [facility] Last Admin: 06/01/16 08:23 Dose: 10 mg Ondansetron HCl (Zofran Inj) 4 mg IVP Q6H PRN PRN Reason: Nausea/Vomiting Last Admin: 05/27/16 06:39 Dose: 4 mg Pantoprazole Sodium (Protonix Inj) 40 mg IVP DAILY [facility] Last Admin: 06/01/16 09:22 Dose: 40 mg Sucralfate (Carafate Tab) 1 gm PO Q12 [facility] Last Admin: 06/01/16 09:24 Dose: 1 gm - Labs Labs: 06/01/16 07:50 06/01/16 07:50 PT 9.6 SECONDS (9.7-12.2) L 05/31/16 06:11 INR 0.9 05/31/16 06:11 APTT 31 SECONDS (21-34) 05/31/16 06:11 - Constitutional Appears: Non-toxic, No Acute Distress - Head Exam Head Exam: ATRAUMATIC, NORMAL INSPECTION, NORMOCEPHALIC - ENT Exam ENT Exam: Mucous Membranes Moist - Respiratory Exam Respiratory Exam: Clear to Ausculation Bilateral, NORMAL BREATHING PATTERN. absent: Prolonged Expiratory Phase, Rales, Rhonchi, Wheezes - Cardiovascular Exam Cardiovascular Exam: REGULAR RHYTHM, +S1, +S2 - GI/Abdominal Exam GI & Abdominal Exam: Soft, Normal Bowel Sounds. absent: Tenderness, Diminished Bowel Sounds, Hernia, Hypoactive Bowel Sounds - Extremities Exam Extremities Exam: Normal Capillary Refill, Normal Inspection - Neurological Exam Neurological Exam: Alert, Awake, Oriented x3 - Psychiatric Exam Psychiatric exam: Normal Affect, Normal Mood - Skin Skin Exam: Dry, Intact, Normal Color, Warm Assessment and Plan - Assessment and Plan (Free Text) Assessment: (1) Nausea and vomiting Patient is on Zofran 4mg IVP Q6H, Carafate 1gm bid, protonix 40mg IVP Reglan 5mg IVP [facility], Dr. Armstrong consulted, help appreciated. Dilaudid 1mg q4h PRN for pain Last Colonoscopy 05/07/16: moderate nonbleeding internal hemorrhoids, two sessile polyps 10-11mm in colon and two 4-5mm polyps in transverse colon. Patient needs to repeat in 3 years. Status: Acute (2) ESRD (end stage renal disease) on dialysis Assessment & Plan: consult nephro- Dr. Plasencia Consult surgery- [place] Will continue current dialysis schedule of MWF Patient is NPO for superficialization of AV fistula today Status: Chronic (3) DM2 (diabetes mellitus, type 2) Assessment & Plan: Continue Home insulin 70/30 20 units bid accucheck ACHS RISS Status: Chronic (4) HTN (hypertension) Assessment & Plan: Continue Hydralazine 50mg Q8h, Zestril 20mg daily, Norvasc 10mg, Asprin 81m, Labetalol 200mg q12h Status: Chronic (5) Prophylactic measure Assessment & Plan: Protonix 40mg IVP Heparin 5000 units SC q12h Status: Acute Patient is to be discharged home, as per Dr. Chadwick.
[2016-06-01] MEDS ORDERED: Oxycodone/Acetaminophen 5/325 mg Tab PO PRN (10:15)
--- NOTE | 2016-06-01 11:57 | CP.PCM.PN ---
Subjective - Date & Time of Evaluation Date of Evaluation: 06/01/16 Time of Evaluation: 09:40 - Subjective Subjective: Appears comfortable in bed Objective - Vital Signs/Intake and Output Vital Signs (last 24 hours): Temp Pulse Resp BP Pulse Ox 99.1 F 95 H 20 126/75 98 06/01/16 07:17 06/01/16 07:17 06/01/16 07:17 06/01/16 07:17 06/01/16 09:29 Intake and Output: 06/01/16 06/01/16 06:59 18:59 Intake Total 120 Balance 120 - Medications Medications: Current Medications Amlodipine Besylate (Norvasc) 10 mg PO DAILY [facility] Last Admin: 06/01/16 09:24 Dose: 10 mg Hydralazine HCl (Apresoline) 50 mg PO Q8 [facility] Last Admin: 06/01/16 05:24 Dose: 50 mg Hydromorphone HCl (Dilaudid) 1 mg IVP Q4H PRN PRN Reason: Pain, severe (8-10) Last Admin: 06/01/16 09:23 Dose: 1 mg Insulin Human Isoph/Insulin Regular (Novolin 70/30 (70/30 Units/Ml) 10 Ml) 20 units SC BID [facility] Last Admin: 06/01/16 09:22 Dose: 20 units Insulin Human Regular (Novolin R) 0 unit SC ACHS [facility] PRN Reason: Protocol Last Admin: 06/01/16 08:23 Dose: Not Given Labetalol HCl (Trandate) 200 mg PO Q12 [facility] Last Admin: 06/01/16 09:24 Dose: 200 mg Lisinopril (Zestril) 20 mg PO DAILY [facility] Last Admin: 06/01/16 09:24 Dose: 20 mg Metoclopramide HCl (Reglan) 10 mg IVP ACHS [facility] Last Admin: 06/01/16 08:23 Dose: 10 mg Ondansetron HCl (Zofran Inj) 4 mg IVP Q6H PRN PRN Reason: Nausea/Vomiting Last Admin: 05/27/16 06:39 Dose: 4 mg Oxycodone/Acetaminophen (Percocet 5/325 Mg Tab) 1 tab PO Q4H PRN PRN Reason: Pain, moderate (4-7) Stop: 06/04/16 10:16 Pantoprazole Sodium (Protonix Inj) 40 mg IVP DAILY [facility] Last Admin: 06/01/16 09:22 Dose: 40 mg Sucralfate (Carafate Tab) 1 gm PO Q12 [facility] Last Admin: 06/01/16 09:24 Dose: 1 gm - Labs Labs: 06/01/16 07:50 06/01/16 07:50 PT 9.6 SECONDS (9.7-12.2) L 05/31/16 06:11 INR 0.9 05/31/16 06:11 APTT 31 SECONDS (21-34) 05/31/16 06:11 - Respiratory Exam Additional comments: Lungs clear - Cardiovascular Exam Cardiovascular Exam: REGULAR RHYTHM - Extremities Exam Additional comments: No edema Assessment and Plan - Assessment and Plan (Free Text) Assessment: ESRD on HD S/P revision of Lt arm AVF HTN IDDM Plan: Stable on dialysis BP controlled Continue HD per schedule
--- NOTE | 2016-06-01 18:11 | PCM.HF ---
Heart Failure Core Measure - Heart Failure Ejection Fraction: 40 % or Greater (lvef 65 %) DANDRE Inhibitor Prescribed: Yes Beta-Cynthia Prescribed: None Contraindication/Reason for not providing: low hr Angiotensin II Receptor Cynthia Prescribed: No Contraindication/Reason for not providing: on dandre AnticoagulationTherapy for Atrial Fibrillation/Atrialflutter: No Contraindication/Reason for not providing: no afib Aldosterone Antagonist Prescribed: Yes Hydralazine Nitrate Prescribed: Yes Implantable Cardioverter Defibrillator Therapy: No Contraindication/Reason for not providing: lvef >40% Cardiac Resynchronization Therapy Prescribed: No Contraindication/Reason for not providing: lvef >40% - Follow up Will be discharged to: Home Follow Up Date (must be within 7 days from discharge): 06/24/16 Follow Up Time: 09:00
--- NOTE | 2016-06-03 11:43 | DS ---
The patient was admitted to the hospital with chief complaint of abdominal pain, nausea, vomiting. T he patient came to the hospital and advised admission. The patient had chronic renal failure, diabet es, hypertension, gastritis. PHYSICAL EXAMINATION: GENERAL: The patient is awake, alert, oriented. VITAL SIGNS: Temperature 98, pulse 90. Decrease IV fluids. Supportive care. The patient had a shunt revision done. Lucero Mcgraw MD cc: [id number] TT: 06/03/2016 10:55:08 mn
== END 2016-06-01 13:50 | disposition home or self-care (01) | DRG 981 ==
LOC: C.ER 18:04 → C.9E 20:50 → C.6T 22:08
PROVIDERS: ADMIT Internal Medicine Pulmonary Disease; ATTEND Internal Medicine Pulmonary Disease
PROC: 5A1D60Z (ICD-10-PCS; 2016-05-26)
PROC: 05SC0ZZ Reposition Left Basilic Vein, Open Approach (ICD-10-PCS; principal; 2016-05-31 09:45)
DX: E10.43 Type 1 diabetes mellitus with diabetic autonomic (poly)neuropathy (principal); N18.6 End stage renal disease; I13.2 Hypertensive heart and chronic kidney disease with heart failure and with stage 5 chronic kidney disease, or end stage renal disease; T82.898A Other specified complication of vascular prosthetic devices, implants and grafts, initial encounter; K86.1 Other chronic pancreatitis; I50.9 Heart failure, unspecified; E10.22 Type 1 diabetes mellitus with diabetic chronic kidney disease; K52.29 Other allergic and dietetic gastroenteritis and colitis; D72.825 Bandemia; E78.00 Pure hypercholesterolemia, unspecified; H54.8 Legal blindness, as defined in USA; D63.1 Anemia in chronic kidney disease; E78.5 Hyperlipidemia, unspecified; K27.9 Peptic ulcer, site unspecified, unspecified as acute or chronic, without hemorrhage or perforation; K31.84 Gastroparesis; F17.210 Nicotine dependence, cigarettes, uncomplicated; Z79.4 Long term (current) use of insulin; Z99.2 Dependence on renal dialysis

== ENCOUNTER 2016-06-03 12:22 | Inpatient (IN) | payer MEDICARE, MEDICAID ==
[2016-06-03 12:22] VITALS: BMI 27.0
--- NOTE | 2016-06-03 13:36 | C.PDOC ---
History Of Present Illness 36 year old male with a history of peptic ulcer disease, DM, gastritis, and gastroparesis, presents to the ED via EMS for nausea and vomiting with coffee ground emesis since earlier today. Patient states this feels similar to previous symptoms, states he was discharged 2 days ago for similar symptoms. Patient has ESRD on HD MWF, last dialysis was yesterday. He denies chest pain, SOB, fever, diarrhea, cough. Time Seen by Provider: 06/03/16 13:03 Chief Complaint (Nursing): Abdominal Pain History Per: Patient History/Exam Limitations: no limitations Onset/Duration Of Symptoms: Hrs Current Symptoms Are (Timing): Still Present Severity: Moderate Quality Of Discomfort: "Pain" Associated Symptoms: Nausea, Vomiting. denies: Fever Past Medical History Reviewed: Historical Data, Nursing Documentation, Vital Signs Vital Signs: Last Vital Signs Temp 98.3 F 06/07/16 12:05 Pulse 88 06/07/16 12:05 Resp 19 06/07/16 12:05 BP 100/52 L 06/07/16 12:05 Pulse Ox 97 06/07/16 12:05 - Medical History PMH: CHF, Diabetes, Gastritis, HTN, Hypercholesterolemia, End Stage Renal Disease, Chronic Kidney Disease - [facility] Procedures BYPASS LEFT BRACHIAL ARTERY TO UPPER ARM VEIN, OPEN APPROACH (02/17/16) EXCISION OF ASCENDING COLON, ENDO, DIAGN (12/19/15) EXCISION OF DUODENUM, ENDO, DIAGN (03/25/16) EXCISION OF LARGE INTESTINE, ENDO, DIAGN (05/06/16) EXCISION OF MIDDLE ESOPHAGUS, ENDO, DIAGN (03/25/16) EXCISION OF STOMACH, ENDO, DIAGN (04/01/16) EXCISION OF TRANSVERSE COLON, ENDO, DIAGN (05/06/16) INSERTION OF INFUSION DEV INTO SUP VENA CAVA, PERC APPROACH (12/19/15) PERFORMANCE OF URINARY FILTRATION, MULTIPLE (05/25/16) PERFORMANCE OF URINARY FILTRATION, SINGLE (05/14/16) REPOSITION LEFT BASILIC VEIN, OPEN APPROACH (05/25/16) ULTRASONOGRAPHY OF SUPERIOR VENA CAVA, GUIDANCE (12/19/15) Family History: States: No Known Family Hx - Social History Hx Tobacco Use: Yes (some days) Hx Alcohol Use: No Hx Substance Use: No - Immunization History Hx Tetanus Toxoid Vaccination: Yes Hx Influenza Vaccination: Yes Hx Pneumococcal Vaccination: Yes Review Of Systems Except As Marked, All Systems Reviewed And Found Negative. Constitutional: Negative for: Fever, Chills Cardiovascular: Negative for: Chest Pain, Palpitations Respiratory: Negative for: Cough, Shortness of Breath Gastrointestinal: Positive for: Nausea, Vomiting (+Coffee ground emesis), Abdominal Pain Genitourinary: Negative for: Dysuria, Hematuria Physical Exam - Physical Exam Appears: Non-toxic, Other (+Uncomfortable appearing) Skin: Normal Color, Warm, Dry, No Rash Head: Normacephalic Eye(s): bilateral: Normal Inspection Oral Mucosa: Moist Chest: Symmetrical, No Deformity, Other (+Right sided dialysis catheter ) Cardiovascular: Rhythm Regular Respiratory: No Accessory Muscle Use, Rales (+Mild rales at bases B/L), No Rhonchi, No Wheezing, Other (+Speaking in complete sentences) Gastrointestinal/Abdominal: Soft, Tenderness (+Epigastric tenderness), No Distention, No Guarding, No Rebound, Other (+Actively vomiting in basin with coffee ground emesis) Extremity: Normal ROM Neurological/Psych: Oriented x3, Normal Speech, Normal Cognition ED Course And Treatment - Laboratory Results Result Diagrams: 06/07/16 06:58 06/07/16 06:58 O2 Sat by Pulse Oximetry: 99 (Room air) Pulse Ox Interpretation: Normal - Radiology CXR: Viewed By Me, Read By Radiologist CXR Interpretation: Yes: Other (Right-sided dialysis catheter.) Progress Note: Blood work, CXR, EKG ordered and reviewed. Patient given IV reglan, IV protonix, IV hydralazine. Reevaluation Time: 14:15 Reassessment Condition: Unchanged (Patient continues to c/o significant abdominal pain, IV morphine ordered. Patient also given IV Labetolol for elevated BP.) - Physician Consult Information Physician Contacted: Lucero Chadwick Outcome Of Conversation: Discussed patient with PMD, he agrees with admission for gastroparesis, coffee ground emesis, intractable nausea/vomiting, uncontrolled HTN, ESRD on HTN. Disposition - Disposition Disposition: HOSPITALIZED Disposition Time: 15:35 Condition: STABLE - Clinical Impression Clinical Impression: HTN (hypertension), ESRD (end stage renal disease), Intractable vomiting with nausea, Gastroparesis due to secondary diabetes, Coffee ground emesis - Scribe Statement The provider has reviewed the documentation as recorded by the Scribe Priyank Hirsch. Provider Attestation: All medical record entries made by the Scribe were at my direction and personally dictated by me. I have reviewed the chart and agree that the record accurately reflects my personal performance of the history, physical exam, medical decision making, and the department course for this patient. I have also personally directed, reviewed, and agree with the discharge instructions and disposition. Decision To Admit - Pt Status Changed To: Hospital Disposition Of: Inpatient - Admit Certification Admit to Inpatient:: After my assessment, the patient will require hospitalization for at least two midnights. This is because of the severity of symptoms shown, intensity of services needed, and/or the medical risk in this patient being treated as an outpatient. - InPatient: Physician Admission Certification:: see notes - . Bed Request Type: Telemetry Admitting Physician: Lucero Chadwick Patient Diagnosis: Coffee ground emesis, Nausea and vomiting, Gastroparesis due to DM, ESRD (end stage renal disease), HTN (hypertension)
--- NOTE | 2016-06-03 13:36 | RAD ---
HISTORY: coffee ground emesis COMPARISON: Chest x-ray performed 05/14/16 TECHNIQUE: Chest, one view. FINDINGS: Right-sided dialysis catheter terminates in the expected location of the cavoatrial junction/right atrium. LUNGS: No focal consolidation. Interval improvement in pulmonary venous congestion. Please note that chest x-ray has limited sensitivity for the detection of pulmonary masses. PLEURA: No significant pleural effusion identified. No definite pneumothorax . CARDIOVASCULAR: The cardiomediastinal silhouette appears within normal limits of size. OSSEOUS STRUCTURES: No acute osseous abnormality identified. VISUALIZED UPPER ABDOMEN: Skin kurtis, left upper extremity. OTHER FINDINGS: None. IMPRESSION: Right-sided dialysis catheter.
[2016-06-03 13:45] LABS: BASO # 0.2 K/uL (0.0-0.2); BASO % 1.2 % (0.0-2.0); EOS # 0.3 K/uL (0.0-0.7); EOS % 2.1 % (0.0-4.0); HEMATOCRIT 41.4 % (35.0-51.0); LYMPH # 0.9 K/uL (1.0-4.3); LYMPH % 6.4 % (20.0-40.0); MEAN CELL VOLUME 88.7 fL (80.0-94.0); MEAN CORPUSCULAR HEMOGLOBIN 28.8 pg (27.0-31.0); MEAN CORPUSCULAR HGB CONC 32.5 g/dL (33.0-37.0); MEAN PLATELET VOLUME 8.8 fL (7.2-11.7); MONO % 6.9 % (0.0-10.0); NRBC % 0.1 % (0.0-2.0); PLATELET COUNT 204 K/uL (130-400); WHITE BLOOD COUNT 14.2 K/uL (4.8-10.8)
[2016-06-03 13:56] LABS: BILIRUBIN,TOTAL 0.5 mg/dL (0.2-1.3); POTASSIUM 4.1 mmol/L (3.6-5.2); TOTAL PROTEIN 7.7 g/dL (6.3-8.3)
[2016-06-03 14:18] LABS: EOSINOPHIL 2 % (0-4); NEUTROPHIL 83 % (50-75); TOTAL CELLS COUNTED 100
[2016-06-03] MEDS ORDERED: Morphine 4 MG/ML VIAL ONE (14:22)
[2016-06-03 15:45] LABS: INR 0.9
[2016-06-03] MEDS ORDERED: Labetalol 25mg/5ml Syringe IVP STA (15:49)
[2016-06-03] MEDS ORDERED: Labetalol 25mg/5ml Syringe IVP ONE (16:15)
[2016-06-03] MEDS: HYDROmorphone 1 mg/ml ISec IVP PRN (20:21)
[2016-06-03] MEDS: Dextrose 5%/0.45% NS 1,000 ML IV SCH (20:22)
[2016-06-04] MEDS: HYDROmorphone 1 mg/ml ISec IVP PRN ×5 (01:43→22:31)
--- NOTE | 2016-06-04 10:45 | CP.PCM.PN ---
Subjective - Date & Time of Evaluation Date of Evaluation: 06/04/16 Time of Evaluation: 08:00 - Subjective Subjective: Medicine Progress Note- Dr. Chadwick's Service: Patient seen and examined at bedside this AM. Patient is sleepy, but arousable. He admits to 8/10 abdominal pain this AM. He reports one episode of vomiting overnight and continues to have nausea. He is NPO for EGD this AM. Objective - Vital Signs/Intake and Output Vital Signs (last 24 hours): Temp Pulse Resp BP Pulse Ox 98.3 F 86 20 177/91 H 95 06/04/16 07:00 06/04/16 07:00 06/04/16 07:00 06/04/16 07:00 06/04/16 07:00 Intake and Output: 06/04/16 06/04/16 06:59 18:59 Intake Total 800 Output Total 700 Balance 100 - Medications Medications: Current Medications Gabapentin (Neurontin) 800 mg PO TID [facility] Last Admin: 06/04/16 10:39 Dose: Not Given Hydralazine HCl (Apresoline) 50 mg PO Q8 [facility] Last Admin: 06/04/16 05:51 Dose: 50 mg Hydromorphone HCl (Dilaudid) 1 mg IVP Q4H PRN PRN Reason: Pain, severe (8-10) Last Admin: 06/04/16 05:53 Dose: 1 mg Dextrose/Sodium Chloride (Dextrose 5%/0.45% Ns 1000 Ml) 1,000 mls @ 80 mls/hr IV .[id number] [facility] Last Admin: 06/03/16 20:22 Dose: 80 mls/hr Labetalol HCl (Trandate) 200 mg PO Q12H [facility] Lisinopril (Zestril) 10 mg PO DAILY [facility] Metoclopramide HCl (Reglan) 10 mg PO TID PRN PRN Reason: Nausea/Vomiting Ondansetron HCl (Zofran Inj) 4 mg IVP Q4H PRN PRN Reason: Nausea/Vomiting Last Admin: 06/04/16 07:33 Dose: 4 mg Pantoprazole Sodium (Protonix Inj) 40 mg IVP DAILY [facility] Sucralfate (Carafate Tab) 1 gm PO BID [facility] Last Admin: 06/04/16 10:39 Dose: Not Given - Labs Labs: PT 10.5 SECONDS (9.7-12.2) 06/03/16 15:33 INR 0.9 06/03/16 15:33 APTT 29 SECONDS (21-34) 06/03/16 15:33 - Constitutional Appears: No Acute Distress - Head Exam Head Exam: NORMAL INSPECTION, NORMOCEPHALIC - Eye Exam Eye Exam: EOMI, Normal appearance - ENT Exam ENT Exam: Mucous Membranes Moist - Neck Exam Neck Exam: Full ROM, Normal Inspection - Respiratory Exam Respiratory Exam: Clear to Ausculation Bilateral, NORMAL BREATHING PATTERN - Cardiovascular Exam Cardiovascular Exam: REGULAR RHYTHM, +S1, +S2 - GI/Abdominal Exam GI & Abdominal Exam: Soft, Tenderness - Extremities Exam Extremities Exam: Full ROM, Normal Inspection - Neurological Exam Neurological Exam: Awake, Oriented x3 - Psychiatric Exam Psychiatric exam: Flat Affect - Skin Skin Exam: Dry, Normal Color, Warm Assessment and Plan - Assessment and Plan (Free Text) Assessment: (1) Nausea and vomiting Patient is on Zofran 4mg IVP Q4H, Carafate 1gm bid, Protonix 40mg IVP Reglan 5mg IVP U[facility], Dr. Armstrong consulted, help appreciated. Dilaudid 1mg q4h PRN for pain Last Colonoscopy 05/07/16: moderate nonbleeding internal hemorrhoids, two sessile polyps 10-11mm in colon and two 4-5mm polyps in transverse colon. Patient needs to repeat in 3 years. Status: Acute (2) ESRD (end stage renal disease) on dialysis Assessment & Plan: consult nephro- Dr. Plasencia Consult surgery- [place] Will continue current dialysis schedule of MW Status: Chronic (3) DM2 (diabetes mellitus, type 2) Assessment & Plan: Continue Home insulin 70/30 20 units bid accucheck [facility]MER RISS Status: Chronic (4) HTN (hypertension) Assessment & Plan: Continue Hydralazine 50mg Q8h, Zestril 10mg daily, Labetalol 200mg q12h. Status: Chronic (5) Prophylactic measure Assessment & Plan: Protonix 40mg IVP daily Heparin 5000 units SC q12h Status: Acute Patient is to be discharged home, as per Dr. Chadwick.
[2016-06-04] MEDS: Dextrose 5%/0.45% NS 1,000 ML IV SCH ×2 (10:49→21:39)
--- NOTE | 2016-06-04 12:01 | CARD ---
APPROVED REPORT EKG Measurement Heart [id number] [id number] <Conclusion> Normal sinus rhythm Minimal voltage criteria for LVH, may be normal variant Nonspecific T wave abnormality Abnormal ECG
[2016-06-04] MEDS ORDERED: Propofol 10 mg/ml Inj (20 ML) ONE (12:23)
[2016-06-04] MEDS ORDERED: Lidocaine Hydrochloride 10 ML INJ ONE (12:23)
--- NOTE | 2016-06-04 13:58 | CP.PCM.CON ---
History of Present Illness - History of Present Illness History of Present Illness: consult dictated for HD today as schaduled see order Past Patient History - Infectious Disease Hx of Infectious Diseases: None - Past Medical History & Family History Past Medical History?: Yes - Past Social History Smoking Status: Never Smoked - CARDIAC Hx Congestive Heart Failure: Yes Hx Hypercholesterolemia: Yes Hx Hypertension: Yes Hx Peripheral Edema: Yes - PULMONARY Hx Respiratory Disorders: No - NEUROLOGICAL Hx Neurological Disorder: No - HEENT Hx HEENT Problems: Yes (cataracts RIGHT) Hx Cataracts: Yes Other/Comment: cataract surgery left eye - RENAL Hx Chronic Kidney Disease: Yes Hx Dialysis: Yes Type of Dialysis Access: Rt. chest permacath Date of Last Dialysis Treatment: 06/02/16 Other/Comment: Left arm AVS not in use for HD yet. - ENDOCRINE/METABOLIC Hx Endocrine Disorders: Yes Hx Diabetes Mellitus Type 2: Yes - HEMATOLOGICAL/ONCOLOGICAL Hx Blood Disorders: No Hx Human Immunodeficiency Virus (HIV): No - INTEGUMENTARY Hx Dermatological Problems: No - MUSCULOSKELETAL/RHEUMATOLOGICAL Hx Musculoskeletal Disorders: No - GASTROINTESTINAL Hx Gastrointestinal Disorders: Yes Hx Gastritis: Yes - GENITOURINARY/GYNECOLOGICAL Hx Genitourinary Disorders: No - PSYCHIATRIC Hx Psychophysiologic Disorder: No - SURGICAL HISTORY Hx Surgeries: Yes Other/Comment: RT.PERMACATH INSERTION 12/30. LT.AV SHUNT CREATION 02/17/16. UNDESCENDED TESTES LT. REMOVED DURING CHILDHOOD - ANESTHESIA Hx Anesthesia: Yes Hx Anesthesia Reactions: No Hx Malignant Hyperthermia: No Has any member of the family had a problem w/ anesthesia?: No Meds Allergies/Adverse Reactions: Allergies Allergy/AdvReac Type Severity Reaction Status Date / Time No Known Allergies Allergy Verified 06/03/16 12:48 - Medications Medications: Current Medications Gabapentin (Neurontin) 300 mg PO TID [facility] Hydralazine HCl (Apresoline) 50 mg PO Q8 [facility] Last Admin: 06/04/16 05:51 Dose: 50 mg Hydromorphone HCl (Dilaudid) 1 mg IVP Q4H PRN PRN Reason: Pain, severe (8-10) Last Admin: 06/04/16 10:55 Dose: 1 mg Dextrose/Sodium Chloride (Dextrose 5%/0.45% Ns 1000 Ml) 1,000 mls @ 80 mls/hr IV .[id number] [facility] Last Admin: 06/04/16 10:49 Dose: 80 mls/hr Labetalol HCl (Trandate) 200 mg PO Q12H [facility] Lisinopril (Zestril) 10 mg PO DAILY [facility] Last Admin: 06/04/16 09:00 Dose: 10 mg Metoclopramide HCl (Reglan) 10 mg IVP ACHS [facility] Ondansetron HCl (Zofran Inj) 4 mg IVP Q4H PRN PRN Reason: Nausea/Vomiting Last Admin: 06/04/16 07:33 Dose: 4 mg Pantoprazole Sodium (Protonix Inj) 40 mg IVP DAILY [facility] Last Admin: 06/04/16 10:49 Dose: 40 mg Sucralfate (Carafate Tab) 1 gm PO BID [facility] Last Admin: 06/04/16 10:39 Dose: Not Given Results - Vital Signs Recent Vital Signs: Last Vital Signs Temp 98 F 06/04/16 13:07 Pulse 85 06/04/16 13:07 Resp 15 06/04/16 13:07 BP 157/85 H 06/04/16 13:07 Pulse Ox 100 06/04/16 13:07 - Labs Result Diagrams: 06/03/16 13:35 06/03/16 13:35 Labs: Laboratory Results - last 24 hr 06/03/16 06/03/16 06/04/16 17:47 21:49 06:29 POC Glucose (mg/dL) 223 H 222 H 238 H
--- NOTE | 2016-06-04 14:29 | CON ---
DATE: 06/04/2016 HISTORY OF PRESENT ILLNESS: This patient who is known to me with end-stage renal disease, on [facility] hemodialysis, is readmitted again with abdominal pain and nausea and was reported in the Emergen cy Room that he might have bloody emesis, although this is not clear and I am not sure if that happen ed. The patient has a complicated GI history related to gastroparesis with recurrent abdominal pain, nausea, vomiting and he keeps coming back and forth to the hospital. He had previously GI evaluatio n including upper and lower endoscopy in the past and the patient is receiving hemodialysis at [facility] as outpatient Tuesday, Tuesday, Tuesday and due to have dialysis today. REVIEW OF SYSTEMS: As noted, the patient appeared to be somewhat frail and chronically ill with this recurrent admission. No chest pain, no shortness of breath reported. The rest of the 12 -systems r eviewed was unremarkable other than the one I mentioned above. PHYSICAL EXAMINATION: GENERAL: The patient is nauseous at this moment. I am going to give him Zofran. VITAL SIGNS: Show to have blood pressure of 157/85, temperature 98, pulse is 85. NECK: Supple. CHEST: Clear. HEART: No rubs. ABDOMEN: Soft. Bowel sounds were active. EXTREMITIES: No pitting edema. LABORATORY DATA: Showed potassium 4.1, sodium 136, creatinine 4.6. Hemoglobin 15.4. WBC 14.2. IMPRESSION: Again, the patient has end-stage renal disease, on maintenance hemodialysis Tuesday, , Tuesday, admitted with abdominal discomfort with nausea and vomited, maybe a history of gastrop aresis. PLAN: The patient will proceed to go for dialysis now as scheduled and follow up with the primary te am. 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 Osiel Quezada MD cc: 19 TT: 06/04/2016 14:28:33 Confirmation # [id number] Dictation # [id number]
[2016-06-04] MEDS: (Novolin 70/30) NPH/Regular 70/30 Units/ml 10 ml vial SC SCH (18:20)
[2016-06-04] MEDS: (Novolin R) Insulin Human Regular 100 units/ml vial SC SCH ×2 (18:20→22:00)
[2016-06-05] MEDS: HYDROmorphone 1 mg/ml ISec IVP PRN ×5 (04:54→22:57)
[2016-06-05 06:19] LABS: BASO # 0.1 K/uL (0.0-0.2); BASO % 0.9 % (0.0-2.0); EOS # 0.3 K/uL (0.0-0.7); EOS % 2.8 % (0.0-4.0); HEMATOCRIT 39.5 % (35.0-51.0); LYMPH # 2.2 K/uL (1.0-4.3); MEAN CELL VOLUME 89.2 fL (80.0-94.0); MEAN CORPUSCULAR HEMOGLOBIN 28.2 pg (27.0-31.0); MEAN CORPUSCULAR HGB CONC 31.6 g/dL (33.0-37.0); MONO # 1.3 K/uL (0.0-0.8); MONO % 12.1 % (0.0-10.0); RED CELL DISTRIBUTION WIDTH 16.5 % (11.5-14.5); WHITE BLOOD COUNT 10.9 K/uL (4.8-10.8)
[2016-06-05 06:28] LABS: POTASSIUM 3.5 mmol/L (3.6-5.2)
[2016-06-05 06:30] LABS: ALB/GLOB RATIO 0.9 (1.0-2.1); BILIRUBIN,TOTAL 0.2 mg/dL (0.2-1.3); TOTAL PROTEIN 6.1 g/dL (6.3-8.3)
[2016-06-05 06:31] LABS: CALCIUM 8.1 mg/dl (8.6-10.4); MAGNESIUM 1.9 mg/dL (1.6-2.3)
[2016-06-05] MEDS: (Novolin R) Insulin Human Regular 100 units/ml vial SC SCH ×4 (07:35→22:14)
[2016-06-05] MEDS: (Novolin 70/30) NPH/Regular 70/30 Units/ml 10 ml vial SC SCH ×2 (09:13→18:33)
--- NOTE | 2016-06-05 11:43 | PN ---
DATE: 06/05/2016 LOCATION: 653, bed A. This is a 36-year-old male seen and examined in rounds post upper endoscopy without any reported acti ve bleeding, but with periods of nausea and dyspepsia, patient had his upper endoscopy as well as lukas lysis yesterday without reported complications. The entire chart is reviewed, including but not limited to most recent lab and radiology study result s, current and previous medication list, current and the previous medical events. Case discussed at length with the staff on the floor. Today's white blood cells is 10.9 with normal hemoglobin and hem atocrit and normal platelet count, but with low potassium 3.5 with increased CO2 content 31 and incre ased BUN 22, creatinine elevated to 4.7 compatible with the patient's known history of renal failure with blood glucose level elevated to 231, low calcium 8.1 with low albumin 2.8 and low total protein 6.1. PHYSICAL EXAMINATION: GENERAL: A 36-year-old male, awake, alert, oriented. VITAL SIGNS: Afebrile with pulse of 90, respiratory rate 20-22, blood pressure of 120/72. HEENT: Showed pale, dry oral mucoid membrane. Nonicteric sclerae. LUNGS: Few scattered crepitation, decreased air entry at bases. HEART: Positive S1 and S2 with increased rate. ABDOMEN: Soft with generalized mild tenderness. No mass or organomegaly. No rebound tenderness or guarding. RECTAL: The patient refused. EXTREMITIES: With slight lower extremity edematous changes. NEUROLOGIC: No reported new neurological deficits, sensory or motor. IMPRESSION: 1. Recent history of hematemesis. 2. Peptic ulcer disease without evidence of bleeding. 3. Evidence of healed Mera-Buitrago tear by upper endoscopy done yesterday. 4. End-stage renal disease on hemodialysis. 5. Known history of diabetic gastroparesis with diabetes mellitus. 6. Known history of hypertension with hyperlipidemia. SUGGESTION: 1. Continue current management. 2. Reglan IV. 3. Guaiac all the stool daily x 3. 4. Proton pump inhibitors. Panda Armstrong MD cc: 14 TT: 06/05/2016 11:42:57 Confirmation # [id number] Dictation # [id number] jn
--- NOTE | 2016-06-05 14:52 | CP.PCM.PN ---
Subjective - Date & Time of Evaluation Date of Evaluation: 06/05/16 Time of Evaluation: 02:30 - Subjective Subjective: Appears comfortable supine Objective - Vital Signs/Intake and Output Vital Signs (last 24 hours): Temp Pulse Resp BP Pulse Ox 98.5 F 91 H 20 130/76 97 06/05/16 07:10 06/05/16 08:50 06/05/16 07:10 06/05/16 07:10 06/05/16 07:10 Intake and Output: 06/05/16 06/05/16 06:59 18:59 Intake Total 1160 Output Total 0 Balance 1160 - Medications Medications: Current Medications Gabapentin (Neurontin) 300 mg PO TID [facility] Last Admin: 06/05/16 13:28 Dose: 300 mg Hydralazine HCl (Apresoline) 50 mg PO Q8 [facility] Last Admin: 06/05/16 13:28 Dose: 50 mg Hydromorphone HCl (Dilaudid) 1 mg IVP Q4H PRN PRN Reason: Pain, severe (8-10) Last Admin: 06/05/16 13:28 Dose: 1 mg Dextrose/Sodium Chloride (Dextrose 5%/0.45% Ns 1000 Ml) 1,000 mls @ 80 mls/hr IV .[id number] [facility] Last Admin: 06/04/16 21:39 Dose: Not Given Insulin Human Isoph/Insulin Regular (Novolin 70/30 (70/30 Units/Ml) 10 Ml) 20 units SC BID [facility] Last Admin: 06/05/16 09:13 Dose: 20 units Insulin Human Regular (Novolin R) 0 unit SC [facility] PRN Reason: Protocol Last Admin: 06/05/16 12:10 Dose: Not Given Labetalol HCl (Trandate) 200 mg PO Q12H [facility] Last Admin: 06/05/16 07:34 Dose: 200 mg Lisinopril (Zestril) 10 mg PO DAILY [facility] Last Admin: 06/05/16 09:13 Dose: 10 mg Metoclopramide HCl (Reglan) 10 mg IVP ACHS [facility] Last Admin: 06/05/16 12:11 Dose: 10 mg Ondansetron HCl (Zofran Inj) 4 mg IVP Q4H PRN PRN Reason: Nausea/Vomiting Last Admin: 06/05/16 12:04 Dose: 4 mg Pantoprazole Sodium (Protonix Inj) 40 mg IVP DAILY [facility] Last Admin: 06/05/16 09:12 Dose: 40 mg Sucralfate (Carafate Tab) 1 gm PO BID [facility] Last Admin: 06/05/16 09:13 Dose: 1 gm - Labs Labs: 06/05/16 06:08 06/05/16 06:08 PT 10.5 SECONDS (9.7-12.2) 06/03/16 15:33 INR 0.9 06/03/16 15:33 APTT 29 SECONDS (21-34) 06/03/16 15:33 - Respiratory Exam Respiratory Exam: NORMAL BREATHING PATTERN - Cardiovascular Exam Cardiovascular Exam: REGULAR RHYTHM - Extremities Exam Additional comments: No edema Assessment and Plan - Assessment and Plan (Free Text) Assessment: ESRD on HD Abdominal pain HTN IDDM Plan: HD was tolerated well yesterday BP controlled Continue HD per schedule
[2016-06-05] MEDS: Dextrose 5%/0.45% NS 1,000 ML IV SCH (18:35)
[2016-06-06] MEDS: HYDROmorphone 1 mg/ml ISec IVP PRN ×5 (03:05→20:20)
[2016-06-06 06:32] LABS: BASO # 0.1 K/uL (0.0-0.2); BASO % 0.6 % (0.0-2.0); EOS # 0.4 K/uL (0.0-0.7); EOS % 4.2 % (0.0-4.0); HEMATOCRIT 39.9 % (35.0-51.0); LYMPH % 18.8 % (20.0-40.0); MEAN CELL VOLUME 89.2 fL (80.0-94.0); MEAN CORPUSCULAR HEMOGLOBIN 28.2 pg (27.0-31.0); MEAN CORPUSCULAR HGB CONC 31.6 g/dL (33.0-37.0); MEAN PLATELET VOLUME 8.9 fL (7.2-11.7); MONO # 1.4 K/uL (0.0-0.8); MONO % 12.8 % (0.0-10.0); RED CELL DISTRIBUTION WIDTH 16.3 % (11.5-14.5); WHITE BLOOD COUNT 10.6 K/uL (4.8-10.8)
[2016-06-06 06:43] LABS: POTASSIUM 3.6 mmol/L (3.6-5.2)
[2016-06-06 06:45] LABS: ALB/GLOB RATIO 0.9 (1.0-2.1); BILIRUBIN,TOTAL 0.3 mg/dL (0.2-1.3); CALCIUM 7.9 mg/dl (8.6-10.4)
[2016-06-06 06:46] LABS: MAGNESIUM 1.9 mg/dL (1.6-2.3)
[2016-06-06] MEDS: Dextrose 5%/0.45% NS 1,000 ML IV SCH (07:37)
[2016-06-06] MEDS: (Novolin R) Insulin Human Regular 100 units/ml vial SC SCH ×4 (07:59→22:09)
--- NOTE | 2016-06-06 10:30 | PN ---
DATE: 06/06/2016 LOCATION: 653, bed A. This is a 36-year-old male seen and examined in rounds today with much less reported nausea or vomiti ng or abdominal pain, tolerating clear liquid diet well. No vomiting this morning. The entire chart is reviewed, including, but not limited to, the most recent lab and radiology study results, current and the previous medication list, current and the previous medical events. Case dis cussed at length with the staff on the floor. LABORATORY DATA: Today's lab showed normal CBC with low sodium 130 and BUN 26, creatinine 6.4 compat ible with the patient's known history of chronic renal failure, on hemodialysis. Blood glucose level 143 with low calcium 7.9, low ALT to 18 with low total protein 6.0, low albumin 2.9. PHYSICAL EXAMINATION: GENERAL: A 36-year-old male, awake, alert. VITAL SIGNS: Afebrile with pulse of 86, respiratory rate 20-22, blood pressure 116/72. HEENT: Showed pale, dry oral mucoid membrane. Nonicteric sclerae. LUNGS: Few scattered crepitations, decreased air entry at bases. HEART: Positive S1 and S2. ABDOMEN: Soft. Bowel sounds are present with slight generalized tenderness. No mass or organomegal y. No rebound tenderness or guarding. RECTAL: The patient refused. EXTREMITIES: Without reported edema, clubbing, or cyanosis. NEUROLOGIC: No new reported focal neurological deficits, sensory or motor. No reported active bleeding. IMPRESSION: 1. Reported hematemesis before - none this morning, believed to be secondary to Mera-Buitrago tear. 2. Reexacerbation of peptic ulcer disease. 3. Diabetic gastroparesis. 4. End-stage renal disease, on hemodialysis. 5. Known history of diabetes mellitus with hyperlipidemia. 6. Known history of hypertension, well-controlled so far. SUGGESTION: 1. Continue current management. 2. Advance diet with close observation. 3. No need for further aggressive GI workup. Panda Armstrong MD cc: 14 TT: 06/06/2016 10:30:08 Confirmation # [id number] Dictation # [id number] jn
--- NOTE | 2016-06-06 10:35 | CON ---
DATE: 06/03/[address] Panda Armstrong to Dr. Lucero Mcgraw. I was called for GI consultation by the admitting MD as well as the medical staff on the floor. The patient is seen and examined on 06/03/2016 for GI evaluation and consultation. The entire chart is re viewed, including but not limited to, the most recent lab and radiology study results, current and pr evious medication lists, current and previous medical events as well as allergy to medication list an d all the available current and previous medical records. Case discussed with the staff on the floor. This is a 36-year-old male, known case for me, with multiple past medical history including mainly, b ut not limited to, peptic ulcer disease, diabetes mellitus with diabetic gastroparesis, was admitted to the hospital through the Emergency Room with recurrent episodes of severe abdominal pain, nausea a nd vomiting of coffee ground material with trace fresh blood with postprandial abdominal distension, all mainly post dialysis. No reported chest pain or palpitation, no chills or fever. After being admitted to the hospital, patient was found to have leukocytosis of 14.2 with increased B UN 30, creatinine 4.6 with increased blood glucose level to 207, but borderline H and H. PAST MEDICAL HISTORY: Including mainly, but not limited to: 1. Hypertension. 2. Diabetes mellitus. 3. End-stage renal disease on hemodialysis. 4. Hyperlipidemia. 5. Periods of congestive heart failure. 6. Evidence of diabetic gastroparesis before with previous episodes of gastrointestinal blood loss a nd anemia. 7. The patient had colonoscopy several months ago as well as more than 1 upper endoscopy recently du e to his recurrent episodes of nausea and vomiting. 8. History of gastrointestinal bleeding, mainly upper. FAMILY HISTORY: Unknown. SOCIAL HISTORY: Positive for cigarette smoking, but denies alcohol intake. CURRENT MEDICATIONS: Lists were reviewed. ALLERGY TO MEDICATION: Unclear. PHYSICAL EXAMINATION: GENERAL: A 36-year-old male, appeared to be awake, alert. VITAL SIGNS: Afebrile with pulse of 96, respiratory rate 18-20, blood pressure 184/86. HEENT: Show pale, dry oral mucoid membrane. Nonicteric sclerae. LYMPH NODES: No lymphadenitis or lymphadenopathy. LUNGS: Few scattered crepitation with decreased air entry at bases. HEART: Positive S1 and S2. ABDOMEN: Soft. Bowel sounds are present with diffuse tenderness and mild to moderate distention. B owel sounds are hyperactive. No mass or organomegaly. No rebound tenderness or guarding. RECTAL: Positive tone, guaiac positive stool. EXTREMITIES: With mild lower extremities edematous changes. No clubbing or cyanosis. NEUROLOGIC: No new reported neurological deficit, sensory or motor. IMPRESSION: 1. Upper gastrointestinal bleeding, to rule out Mera-Buitrago tear inducing upper gastrointestinal b lood loss. 2. Reexacerbation of peptic ulcer disease. 3. Recurrent episodes of poorly controlled diabetes mellitus with gastroparesis. 4. Multiple past medical history including, but not limited to, end-stage renal disease, on hemodial ysis, hypertension, congestive heart failure by history, hyperlipidemia. SUGGESTION: 1. Agree with your plan. 2. Reglan IV. 3. Erythromycin IV. 4. Serum lipase, amylase level. 5. Abdominal ultrasound. 6. Endoscopic evaluation of the upper gastrointestinal tract to rule out possible Mera-Buitrago tear inducing upper gastrointestinal blood loss as the patient has recurrent episodes of nausea and vomit ing followed by hematemesis of coffee ground material. 7. Proton pump inhibitors. 8. IV antibiotics, mainly Flagyl. 9. Further recommendations to follow. Thank you for letting me participate in your patient's case management. Panda Armstrong MD cc: 14 TT: 06/06/2016 10:34:44 Confirmation # [id number] Dictation # [id number] en
[2016-06-06] MEDS: (Novolin 70/30) NPH/Regular 70/30 Units/ml 10 ml vial SC SCH ×2 (10:57→17:55)
--- NOTE | 2016-06-06 14:38 | CP.PCM.PN ---
Subjective - Date & Time of Evaluation Date of Evaluation: 06/06/16 Time of Evaluation: 02:35 - Subjective Subjective: Comfortable supine No c/o sob Objective - Vital Signs/Intake and Output Vital Signs (last 24 hours): Temp Pulse Resp BP Pulse Ox 97.8 F 89 20 98/62 L 97 06/06/16 07:00 06/06/16 11:12 06/06/16 07:00 06/06/16 13:30 06/06/16 07:00 - Medications Medications: Current Medications Gabapentin (Neurontin) 300 mg PO TID [facility] Last Admin: 06/06/16 13:25 Dose: 300 mg Hydralazine HCl (Apresoline) 50 mg PO Q8 [facility] Last Admin: 06/06/16 13:25 Dose: Not Given Hydromorphone HCl (Dilaudid) 1 mg IVP Q4H PRN PRN Reason: Pain, severe (8-10) Last Admin: 06/06/16 11:10 Dose: 1 mg Insulin Human Isoph/Insulin Regular (Novolin 70/30 (70/30 Units/Ml) 10 Ml) 20 units SC BID [facility] Last Admin: 06/06/16 10:57 Dose: 20 units Insulin Human Regular (Novolin R) 0 unit SC ACHS [facility] PRN Reason: Protocol Last Admin: 06/06/16 13:25 Dose: 8 unit Labetalol HCl (Trandate) 200 mg PO Q12H [facility] Last Admin: 06/06/16 11:00 Dose: 200 mg Lisinopril (Zestril) 10 mg PO DAILY [facility] Last Admin: 06/06/16 11:00 Dose: 10 mg Metoclopramide HCl (Reglan) 10 mg IVP ACHS [facility] Last Admin: 06/06/16 13:00 Dose: 10 mg Ondansetron HCl (Zofran Inj) 4 mg IVP Q4H PRN PRN Reason: Nausea/Vomiting Last Admin: 06/05/16 12:04 Dose: 4 mg Pantoprazole Sodium (Protonix Inj) 40 mg IVP DAILY [facility] Last Admin: 06/06/16 10:58 Dose: 40 mg Sucralfate (Carafate Tab) 1 gm PO BID [facility] Last Admin: 06/06/16 10:57 Dose: 1 gm - Labs Labs: 06/06/16 06:06 06/06/16 06:06 PT 10.5 SECONDS (9.7-12.2) 06/03/16 15:33 INR 0.9 06/03/16 15:33 APTT 29 SECONDS (21-34) 06/03/16 15:33 - Respiratory Exam Additional comments: Lungs clear - Cardiovascular Exam Cardiovascular Exam: REGULAR RHYTHM - Extremities Exam Additional comments: no edema Assessment and Plan - Assessment and Plan (Free Text) Assessment: ESRD on HD Hyponatremia is dilutional HTN Abdominal pain Plan: For dialysis tomorrow Will iincrease UF goal with dialysis
[2016-06-07] MEDS: HYDROmorphone 1 mg/ml ISec IVP PRN ×3 (00:20→10:35)
[2016-06-07 07:05] LABS: BASO # 0.1 K/uL (0.0-0.2); BASO % 0.5 % (0.0-2.0); EOS # 0.5 K/uL (0.0-0.7); EOS % 4.5 % (0.0-4.0); HEMATOCRIT 37.3 % (35.0-51.0); LYMPH # 1.7 K/uL (1.0-4.3); LYMPH % 16.4 % (20.0-40.0); MEAN CELL VOLUME 89.2 fL (80.0-94.0); MEAN CORPUSCULAR HEMOGLOBIN 28.2 pg (27.0-31.0); MEAN CORPUSCULAR HGB CONC 31.7 g/dL (33.0-37.0); MEAN PLATELET VOLUME 8.7 fL (7.2-11.7); MONO # 1.3 K/uL (0.0-0.8); MONO % 12.6 % (0.0-10.0); RED CELL DISTRIBUTION WIDTH 16.7 % (11.5-14.5); WHITE BLOOD COUNT 10.4 K/uL (4.8-10.8)
[2016-06-07 07:24] LABS: POTASSIUM 4.4 mmol/L (3.6-5.2)
[2016-06-07 07:26] LABS: ALB/GLOB RATIO 0.9 (1.0-2.1); BILIRUBIN,TOTAL 0.3 mg/dL (0.2-1.3); TOTAL PROTEIN 5.5 g/dL (6.3-8.3)
[2016-06-07 07:27] LABS: CALCIUM 7.9 mg/dl (8.6-10.4); MAGNESIUM 1.9 mg/dL (1.6-2.3)
[2016-06-07] MEDS: (Novolin R) Insulin Human Regular 100 units/ml vial SC SCH ×2 (08:03→13:00)
--- NOTE | 2016-06-07 09:30 | PN ---
DATE: 06/03/2016 The patient has chief complaint of weakness, fatigue, abdominal pain, nausea, vomiting. The patient will get supportive care. Lucero Mcgraw MD cc: [id number] TT: 06/06/2016 09:30:13 Confirmation # [id number] Dictation # [id number] en
[2016-06-07 09:37] VITALS: RESP 19
[2016-06-07] MEDS: (Novolin 70/30) NPH/Regular 70/30 Units/ml 10 ml vial SC SCH (10:00)
--- NOTE | 2016-06-07 10:53 | CP.PCM.PN ---
Subjective - Date & Time of Evaluation Date of Evaluation: 06/07/16 Time of Evaluation: 10:50 - Subjective Subjective: Currently on dialysis No sob Objective - Vital Signs/Intake and Output Vital Signs (last 24 hours): Temp Pulse Resp BP Pulse Ox 97.4 F L 86 19 83/47 L 98 06/07/16 09:00 06/07/16 09:00 06/07/16 09:00 06/07/16 10:30 06/07/16 09:00 Intake and Output: 06/07/16 06/07/16 06:59 18:59 Intake Total 240 Balance 240 - Medications Medications: Current Medications Gabapentin (Neurontin) 300 mg PO TID [facility] Last Admin: 06/06/16 17:51 Dose: 300 mg Hydralazine HCl (Apresoline) 50 mg PO Q8 [facility] Last Admin: 06/07/16 05:33 Dose: 50 mg Hydromorphone HCl (Dilaudid) 1 mg IVP Q4H PRN PRN Reason: Pain, severe (8-10) Last Admin: 06/07/16 10:35 Dose: 1 mg Insulin Human Isoph/Insulin Regular (Novolin 70/30 (70/30 Units/Ml) 10 Ml) 20 units SC BID [facility] Last Admin: 06/06/16 17:55 Dose: 20 units Insulin Human Regular (Novolin R) 0 unit SC ACHS [facility] PRN Reason: Protocol Last Admin: 06/07/16 08:03 Dose: 2 unit Labetalol HCl (Trandate) 200 mg PO Q12H [facility] Last Admin: 06/07/16 08:05 Dose: 200 mg Lisinopril (Zestril) 10 mg PO DAILY [facility] Last Admin: 06/06/16 11:00 Dose: 10 mg Metoclopramide HCl (Reglan) 10 mg IVP ACHS [facility] Last Admin: 06/07/16 08:04 Dose: 10 mg Ondansetron HCl (Zofran Inj) 4 mg IVP Q4H PRN PRN Reason: Nausea/Vomiting Last Admin: 06/05/16 12:04 Dose: 4 mg Pantoprazole Sodium (Protonix Inj) 40 mg IVP DAILY [facility] Last Admin: 06/06/16 10:58 Dose: 40 mg Sucralfate (Carafate Tab) 1 gm PO BID [facility] Last Admin: 06/06/16 17:50 Dose: 1 gm - Labs Labs: 06/07/16 06:58 06/07/16 06:58 PT 10.5 SECONDS (9.7-12.2) 06/03/16 15:33 INR 0.9 06/03/16 15:33 APTT 29 SECONDS (21-34) 06/03/16 15:33 - Respiratory Exam Additional comments: Lungs clear - Cardiovascular Exam Cardiovascular Exam: REGULAR RHYTHM - Extremities Exam Additional comments: No edema Assessment and Plan - Assessment and Plan (Free Text) Assessment: ESRD HTN abdominal pain Plan: BP was low today because pt had received pain med earlier UF goal was not met today because of low AMBER Consider extra dialysis tomorrow Monitor BP
[2016-06-07 12:47] VITALS: BP 100/52; PULSE 88; TEMP 98.3
--- NOTE | 2016-06-07 14:00 | PN ---
DATE: 06/07/2016 LOCATION: 563, bed A. SUBJECTIVE: This is 36-year-old male seen and examined at rounds today, without reported nausea or v omiting or significant abdominal or chest pain. No reported chills or fever. The entire chart is re viewed, including but not limited to the most recent lab and radiology study results, current and pre vious medication list, current and the previous medical events. Today's labs showed drop of hemoglob in to 11.8 with normal platelet count, but decreased sodium 129, increased BUN 35, creatinine elevate d to 7.6 compatible with the patient's known history of renal failure with blood glucose level 240, l ow calcium 7.9 and low albumin 2.6 and low total protein 5.5. PHYSICAL EXAMINATION: GENERAL: A 36-year-old male, awake, alert, oriented. VITAL SIGNS: Afebrile with pulse of 86, respiratory rate 20-22, blood pressure 106/54. HEENT: Showed pale, dry oral mucoid membrane. Nonicteric sclerae. LUNGS: Few scattered crepitation, decreased air entry at bases. HEART: Positive S1 and S2. ABDOMEN: Soft with slight tenderness. No mass or organomegaly. No rebound tenderness or guarding. EXTREMITIES: Without significant edema, clubbing or cyanosis. NEUROLOGIC: No reported neurologic deficits, sensory or motor. IMPRESSION: 1. Reexacerbation of peptic ulcer disease. 2. End-stage renal disease on hemodialysis. 3. Known history of hypertension. 4. Anemia secondary to above. 5. Known history of diabetes mellitus, poorly controlled with diabetic gastroparesis. 6. History of hyperlipidemia. 7. Anemia secondary to above. SUGGESTION: 1. Continue current management including Reglan p.o. 2. Advance diet. 3. Guaiac all the stool daily x 3. Panda Armstrong MD cc: 14 TT: 06/07/2016 13:59:55 Confirmation # [id number] Dictation # [id number] an
--- NOTE | 2016-06-07 14:21 | CP.PCM.PN ---
Subjective - Date & Time of Evaluation Date of Evaluation: 06/07/16 Time of Evaluation: 09:05 - Subjective Subjective: PGY2 Medicine Note - Dr. Chadwick's service: Patient seen and examined at bedside this AM. Patient reports feeling better. Patient denies fever, chills, chest pain, nausea, vomiting, abdominal pain. Patient reports smoking marijuana every day. Objective - Vital Signs/Intake and Output Vital Signs (last 24 hours): Temp Pulse Resp BP Pulse Ox 98.3 F 88 19 100/52 L 97 06/07/16 12:05 06/07/16 12:05 06/07/16 12:05 06/07/16 12:05 06/07/16 12:05 Intake and Output: 06/07/16 06/07/16 06:59 18:59 Intake Total 240 Balance 240 - Medications Medications: Current Medications Gabapentin (Neurontin) 100 mg PO TID [facility] Last Admin: 06/07/16 13:34 Dose: 100 mg Hydralazine HCl (Apresoline) 50 mg PO Q8 [facility] Last Admin: 06/07/16 05:33 Dose: 50 mg Hydromorphone HCl (Dilaudid) 1 mg IVP Q4H PRN PRN Reason: Pain, severe (8-10) Last Admin: 06/07/16 10:35 Dose: 1 mg Insulin Human Isoph/Insulin Regular (Novolin 70/30 (70/30 Units/Ml) 10 Ml) 20 units SC BID [facility] Last Admin: 06/07/16 10:00 Dose: Not Given Insulin Human Regular (Novolin R) 0 unit SC [facility] PRN Reason: Protocol Last Admin: 06/07/16 13:00 Dose: 4 unit Labetalol HCl (Trandate) 200 mg PO Q12H [facility] Last Admin: 06/07/16 08:05 Dose: 200 mg Lisinopril (Zestril) 10 mg PO DAILY [facility] Last Admin: 06/07/16 10:00 Dose: Not Given Metoclopramide HCl (Reglan) 10 mg IVP ACHS [facility] Last Admin: 06/07/16 13:00 Dose: 10 mg Ondansetron HCl (Zofran Inj) 4 mg IVP Q4H PRN PRN Reason: Nausea/Vomiting Last Admin: 06/05/16 12:04 Dose: 4 mg Pantoprazole Sodium (Protonix Inj) 40 mg IVP DAILY [facility] Last Admin: 06/07/16 12:45 Dose: 40 mg Sucralfate (Carafate Tab) 1 gm PO BID [facility] Last Admin: 06/07/16 10:00 Dose: Not Given - Labs Labs: 06/07/16 06:58 06/07/16 06:58 PT 10.5 SECONDS (9.7-12.2) 06/03/16 15:33 INR 0.9 06/03/16 15:33 APTT 29 SECONDS (21-34) 06/03/16 15:33 - Constitutional Appears: Non-toxic, No Acute Distress - Head Exam Head Exam: NORMAL INSPECTION - Eye Exam Eye Exam: EOMI - ENT Exam ENT Exam: Mucous Membranes Moist - Respiratory Exam Respiratory Exam: Clear to Ausculation Bilateral, NORMAL BREATHING PATTERN. absent: Rales, Rhonchi, Wheezes - Cardiovascular Exam Cardiovascular Exam: REGULAR RHYTHM, +S1, +S2. absent: Gallop, Rubs, Murmur - GI/Abdominal Exam GI & Abdominal Exam: Soft, Normal Bowel Sounds. absent: Distended, Firm, Tenderness - Extremities Exam Extremities Exam: absent: Pedal Edema - Neurological Exam Neurological Exam: Alert, Oriented x3 - Psychiatric Exam Psychiatric exam: Normal Affect, Normal Mood - Skin Skin Exam: Normal Color, Warm Assessment and Plan - Assessment and Plan (Free Text) Assessment: (1) Nausea and vomiting Patient is on Zofran 4mg IVP Q4H, Carafate 1gm bid, Protonix 40mg IVP Reglan 5mg IVP ACHS, Dr. Armstrong consulted, help appreciated. Dilaudid 1mg q4h PRN for pain Last Colonoscopy 05/07/16: moderate nonbleeding internal hemorrhoids, two sessile polyps 10-11mm in colon and two 4-5mm polyps in transverse colon. Patient needs to repeat in 3 years. 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 Plasencia Consult surgery- [place] Will continue current dialysis schedule of MWF Status: Chronic (3) DM2 (diabetes mellitus, type 2) Assessment & Plan: Continue Home insulin 70/30 20 units bid accucheck UMER RILEYS Status: Chronic (4) HTN (hypertension) Assessment & Plan: Continue Hydralazine 50mg Q8h, Zestril 10mg daily, Labetalol 200mg q12h. Status: Chronic (5) Prophylactic measure Assessment & Plan: Protonix 40mg IVP daily Heparin 5000 units SC q12h Status: Acute Patient is to be discharged home, as per Dr. Chadwick.
--- NOTE | 2016-06-07 15:59 | PCM.HF ---
Heart Failure Core Measure - Heart Failure Ejection Fraction: 40 % or Greater (LVEF 60-65%) DANDRE Inhibitor Prescribed: Yes Beta-Cynthia Prescribed: Metoprolol Succinate Angiotensin II Receptor Cynthia Prescribed: No Contraindication/Reason for not providing: ON DANDRE AnticoagulationTherapy for Atrial Fibrillation/Atrialflutter: No Contraindication/Reason for not providing: NO AFIB Aldosterone Antagonist Prescribed: No Contraindication/Reason for not providing: LVEF >40% Hydralazine Nitrate Prescribed: Yes Implantable Cardioverter Defibrillator Therapy: No Contraindication/Reason for not providing: LVEF >40% Cardiac Resynchronization Therapy Prescribed: No Contraindication/Reason for not providing: LVEF >40% - Follow up Will be discharged to: Home Follow Up Date (must be within 7 days from discharge): 06/10/16 Follow Up Time: 09:00
[2016-06-08 09:38] VITALS: O2SAT 99
--- NOTE | 2016-07-05 08:41 | DS ---
The patient chief complaint weakness, fatigue, abdominal pain, nausea, vomiting. The patient got bed rest, supportive care, IV fluids, IV Protonix. The patient showed very slow gradual improvement, dis charged, to follow as outpatient. Lucero Mcgraw MD cc: [id number] TT: 07/03/2016 13:41:06 07/05/2016 07:40:06
--- NOTE | 2016-07-05 08:54 | HP ---
The patient ____ nausea, vomiting, abdominal pain. The patient has active chronic cannabinoid use, c hronic renal failure, diabetes, gastroparesis. PHYSICAL EXAMINATION: GENERAL: The patient is awake, alert, oriented. VITAL SIGNS: Temperature 98, pulse 90. HEENT: Within normal limits. NECK: Supple. CHEST: Symmetrical. HEART: Regular. ABDOMEN: Soft. EXTREMITIES: No edema. The patient suffers from intractable vomiting, cannabis abuse. The patient bedrest, supportive care. Lucero Mcgraw MD cc: [id number] TT: 07/03/2016 08:40:26 tn
== END 2016-06-07 14:54 | disposition home or self-care (01) | DRG 368 ==
LOC: C.ER 12:22 → C.9E 15:35 → C.6T 19:46
PROVIDERS: ADMIT Internal Medicine Pulmonary Disease; ATTEND Internal Medicine Pulmonary Disease
PROC: 0DB68ZX Excision of Stomach, Via Natural or Artificial Opening Endoscopic, Diagnostic (ICD-10-PCS; principal; 2016-06-04 12:20)
PROC: 5A1D00Z (ICD-10-PCS; 2016-06-07)
DX: K22.6 Gastro-esophageal laceration-hemorrhage syndrome (principal); N18.6 End stage renal disease; E11.22 Type 2 diabetes mellitus with diabetic chronic kidney disease; I13.11 Hypertensive heart and chronic kidney disease without heart failure, with stage 5 chronic kidney disease, or end stage renal disease; E11.43 Type 2 diabetes mellitus with diabetic autonomic (poly)neuropathy; E11.65 Type 2 diabetes mellitus with hyperglycemia; K31.84 Gastroparesis; Z79.4 Long term (current) use of insulin; F17.210 Nicotine dependence, cigarettes, uncomplicated; Z99.2 Dependence on renal dialysis; E78.00 Pure hypercholesterolemia, unspecified; K29.00 Acute gastritis without bleeding; E78.5 Hyperlipidemia, unspecified

== ENCOUNTER 2016-06-11 19:23 | Inpatient (IN) | payer MEDICARE, MEDICAID ==
[2016-06-11 19:23] VITALS: BMI 27.0
[2016-06-11] MEDS ORDERED: Sodium Chloride 0.9% 1,000 ML IV ONE ×2 (20:12→20:44)
[2016-06-11] MEDS ORDERED: Sodium Chloride 0.9% 1,000 ML ONE (20:24)
[2016-06-11 20:28] LABS: BASO # 0.1 K/uL (0.0-0.2); EOS # 0.1 K/uL (0.0-0.7); HEMATOCRIT 40.4 % (35.0-51.0); LYMPH # 0.7 K/uL (1.0-4.3); LYMPH % 6.1 % (20.0-40.0); MEAN CORPUSCULAR HEMOGLOBIN 28.2 pg (27.0-31.0); MEAN CORPUSCULAR HGB CONC 32.4 g/dL (33.0-37.0); MEAN PLATELET VOLUME 8.7 fL (7.2-11.7); MONO # 0.5 K/uL (0.0-0.8); MONO % 4.1 % (0.0-10.0); PLATELET COUNT 216 K/uL (130-400); RED CELL DISTRIBUTION WIDTH 16.6 % (11.5-14.5)
[2016-06-11] MEDS ORDERED: Pantoprazole 80 MG in Sodium Chloride 0.9% 100 ML IV STA (20:32)
--- NOTE | 2016-06-11 20:33 | C.PDOC ---
History Of Present Illness Patient presents to the ER with a complaint of nausea, vomiting, coffee ground emesis, and abdominal pain that began after getting home from dialysis today. Patient is currently awake, alert, and oriented. Denies any fever, chills. or diarrhea. Time Seen by Provider: 06/11/16 20:12 Chief Complaint (Nursing): Abdominal Pain History Per: Patient History/Exam Limitations: no limitations Onset/Duration Of Symptoms: Hrs Current Symptoms Are (Timing): Still Present Context: Other Severity: Severe Pain Scale Rating Of: 6 Location Of Pain/Discomfort: Epigastric, Other (Abdominal pain) Radiation Of Pain To:: None Quality Of Discomfort: Sharp, Cramping Associated Symptoms: Nausea, Vomiting, Other (Coffee ground emesis). denies: Fever, Chills, Diarrhea Exacerbating Factors: None Alleviating Factors: None Last Bowel Movement: Today Recent travel outside of the [place]: No Additional History Per: Patient Past Medical History Reviewed: Historical Data, Nursing Documentation, Vital Signs Vital Signs: Last Vital Signs Temp 97.7 F 06/11/16 19:36 Pulse 96 H 06/11/16 21:23 Resp 20 06/11/16 21:23 BP 224/112 H 06/11/16 21:23 Pulse Ox 98 06/11/16 21:31 - Medical History PMH: CHF, Diabetes, Gastritis, HTN, Hypercholesterolemia, Peripheral Edema, End Stage Renal Disease, Chronic Kidney Disease - [facility] Procedures BYPASS LEFT BRACHIAL ARTERY TO UPPER ARM VEIN, OPEN APPROACH (02/17/16) EXCISION OF ASCENDING COLON, ENDO, DIAGN (12/19/15) EXCISION OF DUODENUM, ENDO, DIAGN (03/25/16) EXCISION OF LARGE INTESTINE, ENDO, DIAGN (05/06/16) EXCISION OF MIDDLE ESOPHAGUS, ENDO, DIAGN (03/25/16) EXCISION OF STOMACH, ENDO, DIAGN (06/03/16) EXCISION OF TRANSVERSE COLON, ENDO, DIAGN (05/06/16) INSERTION OF INFUSION DEV INTO SUP VENA CAVA, PERC APPROACH (12/19/15) PERFORMANCE OF URINARY FILTRATION, MULTIPLE (05/25/16) PERFORMANCE OF URINARY FILTRATION, SINGLE (06/03/16) REPOSITION LEFT BASILIC VEIN, OPEN APPROACH (05/25/16) ULTRASONOGRAPHY OF SUPERIOR VENA CAVA, GUIDANCE (12/19/15) Family History: States: No Known Family Hx - Social History Hx Tobacco Use: Yes (some days) Hx Alcohol Use: No Hx Substance Use: Yes - Immunization History Hx Tetanus Toxoid Vaccination: Yes Hx Influenza Vaccination: Yes Hx Pneumococcal Vaccination: Yes Review Of Systems Constitutional: Negative for: Fever, Chills Gastrointestinal: Positive for: Nausea, Vomiting, Abdominal Pain, Other (Coffee ground emesis). Negative for: Diarrhea Physical Exam - Physical Exam Appears: Non-toxic Skin: Warm, Dry Head: Atraumatic Eye(s): bilateral: Normal Inspection Oral Mucosa: Moist Neck: Supple Chest: Symmetrical, Other (right side dialysis port ) Cardiovascular: Rhythm Regular, No Murmur Respiratory: No Rales, No Rhonchi, No Wheezing Gastrointestinal/Abdominal: Soft, Tenderness (Diffusely), No Distention, No Guarding, No Rebound, Other (produced 30 CCs of coffee ground emesis) Back: Normal Inspection Extremity: Other (Left arm graft) Extremity: Bilateral: Atraumatic, Normal Color And Temperature Neurological/Psych: Oriented x3, Normal Speech, Normal Cognition, Other (Awake, alert, and oriented.) Gait: Steady ED Course And Treatment - Laboratory Results Result Diagrams: 06/11/16 20:22 06/11/16 20:22 ECG: Interpreted By Me, Viewed By Me ECG Rhythm: Sinus Rhythm (95), Nonspecific Changes O2 Sat by Pulse Oximetry: 98 (Room air) Pulse Ox Interpretation: Normal - Radiology CXR: Interpreted by Me, Viewed By Me Progress Note: Blood work, EKG, urinalysis and stool test ordered. Morphine IVP , zofran IVP, and IV fluids administered. Critical Care Time - Critical Care Note Total Time (in mins): 30 Documented critical care: time excludes all time spent performing seperately billable procedures. Disposition Discussed With : Lucero Chadwick Comment: accepted the pt on his service and took over the care at 9:57PM Doctor Will See Patient In The: Hospital Counseled Patient/Family Regarding: Studies Performed, Diagnosis - Disposition Disposition: HOSPITALIZED Disposition Time: 20:30 Condition: GUARDED - POA Present On Arrival: Poor Glycemic Control - Clinical Impression Clinical Impression: Intractable abdominal pain, ESRD (end stage renal disease) on dialysis, Coffee ground emesis - Scribe Statement The provider has reviewed the documentation as recorded by the Scribe Harry Mcclure All medical record entries made by the Scribe were at my direction and personally dictated by me. I have reviewed the chart and agree that the record accurately reflects my personal performance of the history, physical exam, medical decision making, and the department course for this patient. I have also personally directed, reviewed, and agree with the discharge instructions and disposition. Decision To Admit - Pt Status Changed To: Hospital Disposition Of: Inpatient - Admit Certification Admit to Inpatient:: After my assessment, the patient will require hospitalization for at least two midnights. This is because of the severity of symptoms shown, intensity of services needed, and/or the medical risk in this patient being treated as an outpatient. - InPatient: Physician Admission Certification:: After my assessment, the patient will require hospitalization for at least two midnights. This is because of the severity of symptoms shown, intensity of services needed, and/or the medical risk in this patient being treated as an outpatient. - . Bed Request Type: Telemetry Admitting Physician: Lucero Chadwick Patient Diagnosis: Intractable abdominal pain, ESRD (end stage renal disease) on dialysis, Coffee ground emesis
[2016-06-11 20:36] LABS: POTASSIUM 3.7 mmol/L (3.6-5.2)
[2016-06-11 20:37] LABS: INR 0.9
[2016-06-11 20:38] LABS: BILIRUBIN,TOTAL 0.7 mg/dL (0.2-1.3); TOTAL PROTEIN 7.3 g/dL (6.3-8.3)
[2016-06-11 20:39] LABS: CALCIUM 8.6 mg/dl (8.6-10.4)
[2016-06-11] MEDS ORDERED: Pantoprazole 80 MG in Sodium Chloride 0.9% 100 ML IVP SCH (21:00)
[2016-06-11 21:36] LABS: NEUTROPHIL 92 % (50-75); TOTAL CELLS COUNTED 100
[2016-06-11] MEDS ORDERED: HYDROmorphone 1 mg/ml ISec ONE (23:03)
[2016-06-11] MEDS: HYDROmorphone 1 mg/ml ISec IVP PRN (23:12)
[2016-06-12] MEDS: Dextrose 5%/0.45% NS 1,000 ML IV SCH ×2 (01:00→18:14)
[2016-06-12] MEDS: HYDROmorphone 1 mg/ml ISec IVP PRN ×3 (03:11→21:15)
[2016-06-12] MEDS: (Novolin R) Insulin Human Regular 100 units/ml vial SC SCH ×4 (07:30→21:00)
[2016-06-12] MEDS ORDERED: (Novolin R) Insulin Human Regular 100 units/ml vial SC SCH (07:30)
[2016-06-12] MEDS: Pantoprazole 80 MG in Sodium Chloride 0.9% 100 ML IVPB SCH ×2 (09:37→20:00)
--- NOTE | 2016-06-12 09:58 | PN ---
DATE: 06/12/2016 This is a 36-year-old male seen and examined for GI consultation on 06/11/2016 and reexamined again naima hammond. Entire chart is reviewed, including but not limited to the most recent lab and radiology study results, current and previous medication lists, current and the previous medical events as well as a llergic to medication list. Case was discussed at length with admitting medical team at the time of my GI consultation also. This is a 36-year-old male, very well known case for me from previous admissions, who was admitted in ially with a complaint of nausea and vomiting of coffee ground material, nothing reported this morn ing since being in the hospital; without reported melena, diarrhea, chills or fever. No reported madelin st pain, but epigastric pain. Most recent lab results showed leukocytosis of 11.0 with normal hemoglobin and hematocrit as well as normal platelet count with blood glucose level of 289 and the stool for occult blood positive. PHYSICAL EXAMINATION: GENERAL: A 36-year-old male, awake, alert. VITAL SIGNS: Afebrile with pulse of 92, respiratory rate 20-22, and blood pressure of 168/96. HEENT: Showed pale, dry oral mucoid membrane. Nonicteric sclerae. LUNGS: Few scattered crepitation, decreased air entry at bases. HEART: Positive S1 and S2 with increased rate. ABDOMEN: Soft. Bowel sounds are present. No mass or organomegaly. No rebound tenderness or guardi ng. RECTAL: The patient refused. EXTREMITIES: Without significant edema, clubbing or cyanosis. NEUROLOGIC: No reported new neurologic deficits, sensory or motor. IMPRESSION: 1. Peptic ulcer disease. 2. Poorly controlled diabetes mellitus. 3. Diabetic gastroparesis. 4. Reported upper gastrointestinal bleeding, hemetemesis of coffee ground material, none this mornin g. 5. Known history of, but not limited to hypertension, hyperlipidemia, end-stage renal disease, as we ll as the reported congestive heart failure before. SUGGESTION: 1. Continue current management. 2. Proton pump inhibitors. 3. Serum lipase, amylase level. 4. Abdominal ultrasound. 5. Increase the dose of Reglan IV to 10 mg q. 6 hours up to 15 mg IV push q. 6 hours; if there is no response, then erythromycin 500 mg IV piggyback q. 6 hours to be ordered. 6. No need for aggressive GI workup or endoscopy, patient had one more endoscopy recently. Please s ee upper endoscopy reports. 7. Further recommendations to follow. Thank you for letting me participate in your patient's case management. Well control of his diabetes mellitus will lead to more subsequent improvement of his diabetic gastroparesis and the patient may need an extra hemodialysis course, as directed by the nephrology [employer] workflow consultant on the case. Panda Armstrong MD cc: 14 TT: 06/12/2016 09:58:02 Confirmation # [id number] Dictation # [id number]
[2016-06-12 11:35] LABS: RBC URINE 1 /hpf (0-3); URINE BACTERIA RARE (<OCC); URINE BILIRUBIN NEGATIVE (NEGATIVE); URINE BLOOD NEGATIVE (NEGATIVE); URINE COLOR Yellow (YELLOW); URINE GLUCOSE (UA) 3+ mg/dL (Normal); URINE KETONE TRACE mg/dL (NEGATIVE); URINE LEUKOCYTE ESTERASE NEG Leu/uL (Negative); URINE PROTEIN 3+ mg/dL (NEGATIVE); URINE UROBILINOGEN NORMAL mg/dL (0.2-1.0); WBC URINE 7 /hpf (0-5)
[2016-06-13] MEDS: HYDROmorphone 1 mg/ml ISec IVP PRN ×5 (03:57→21:37)
[2016-06-13] MEDS: Dextrose 5%/0.45% NS 1,000 ML IV SCH (03:57)
[2016-06-13] MEDS: Pantoprazole 80 MG in Sodium Chloride 0.9% 100 ML IVPB SCH (06:24)
[2016-06-13] MEDS: (Novolin R) Insulin Human Regular 100 units/ml vial SC SCH ×4 (08:11→21:21)
[2016-06-13 08:33] LABS: BASO # 0.1 K/uL (0.0-0.2); EOS # 0.4 K/uL (0.0-0.7); MEAN PLATELET VOLUME 8.6 fL (7.2-11.7)
[2016-06-13 08:39] LABS: POTASSIUM 3.9 mmol/L (3.6-5.2)
[2016-06-13 08:43] LABS: CALCIUM 7.7 mg/dl (8.6-10.4)
[2016-06-13 08:46] LABS: BASO % 1.1 % (0.0-2.0); EOS % 3.8 % (0.0-4.0); HEMATOCRIT 39.1 % (35.0-51.0); LYMPH # 1.9 K/uL (1.0-4.3); LYMPH % 17.8 % (20.0-40.0); MEAN CELL VOLUME 88.4 fL (80.0-94.0); MEAN CORPUSCULAR HEMOGLOBIN 28.2 pg (27.0-31.0); MEAN CORPUSCULAR HGB CONC 31.9 g/dL (33.0-37.0); MONO % 9.4 % (0.0-10.0); RED CELL DISTRIBUTION WIDTH 16.8 % (11.5-14.5); WHITE BLOOD COUNT 10.8 K/uL (4.8-10.8)
[2016-06-13] MEDS: Pantoprazole 40 mg EC Tab PO SCH (09:04)
--- NOTE | 2016-06-13 10:00 | PN ---
DATE: 06/13/2016 LOCATION: ICU 3. This is a 36-year-old male seen and examined in rounds without reported evidence of active bleeding, tolerated his breakfast, solid food today in front of me, appears to be awake, alert, oriented. No a bdominal pain and no reported significant change of bowel movement habits. The entire chart is revie wed, including but not limited to the most recent lab and radiology study results, current and the pr evious medication list, current and the previous medical events. His latest blood glucose level toda y with 305 with a reported normal CBC, but mild leukocytosis with normal PT and PTT. PHYSICAL EXAMINATION: GENERAL: A 36-year-old male, awake, alert, oriented. VITAL SIGNS: Afebrile with pulse of 80, respiratory rate 20-22, blood pressure of 138/74. HEENT: Showed pale, dry oral mucoid membrane. Nonicteric sclerae. LUNGS: Few scattered crepitations, decreased air entry at bases. HEART: Positive S1 and S2. ABDOMEN: Soft with mild generalized tenderness. No mass or organomegaly. No rebound tenderness or guarding. EXTREMITIES: Without significant edema, clubbing, or cyanosis. NEUROLOGIC: No reported new neurological deficits, sensory or motor. IMPRESSION: 1. Poorly controlled diabetes mellitus. 2. Diabetic gastroparesis. 3. Reexacerbation of peptic ulcer disease. 4. End-stage renal disease, on hemodialysis. 5. Reported history of hyperlipidemia with congestive heart failure and the ____ edema syndrome. SUGGESTION: 1. Continue current management. 2. Change Protonix to 40 mg p.o. 3. Advance diet as tolerated. 4. Endocrinology consultation for control of his diabetes mellitus. Panda Armstrong MD cc: 14 TT: 06/13/2016 09:59:44 Confirmation # [id number] Dictation # [id number]
--- NOTE | 2016-06-13 14:59 | CP.PCM.CON ---
History of Present Illness - History of Present Illness History of Present Illness: 36 yr old with htn, dm with retinopathy. esrd on hd mwf is admitted with abdominal pain and nausea and vomiting since tuesday post hd, reports coffee ground emesis. no fever or chills. no missed dialysis. no sob or chest pain Review of Systems - Review of Systems All systems: reviewed and no additional remarkable complaints except Past Patient History - Infectious Disease Hx of Infectious Diseases: None - Past Medical History & Family History Past Medical History?: Yes - Past Social History Smoking Status: Current Some Days Smoker - CARDIAC Hx Cardiac Disorders: Yes Hx Congestive Heart Failure: Yes Hx Hypercholesterolemia: Yes Hx Hypertension: Yes Hx Peripheral Edema: Yes - PULMONARY Hx Respiratory Disorders: No - NEUROLOGICAL Hx Neurological Disorder: No - HEENT Hx HEENT Problems: Yes (cataracts RIGHT) Hx Cataracts: Yes Other/Comment: cataract surgery left eye - RENAL Hx Chronic Kidney Disease: Yes Hx Dialysis: Yes Type of Dialysis Access: PermaCath Date of Last Dialysis Treatment: 06/11/16 - ENDOCRINE/METABOLIC Hx Endocrine Disorders: Yes Hx Diabetes Mellitus Type 2: Yes - HEMATOLOGICAL/ONCOLOGICAL Hx Blood Disorders: No Hx Human Immunodeficiency Virus (HIV): No - INTEGUMENTARY Hx Dermatological Problems: No - MUSCULOSKELETAL/RHEUMATOLOGICAL Hx Musculoskeletal Disorders: No Hx Falls: No - GASTROINTESTINAL Hx Gastrointestinal Disorders: Yes Hx Gastritis: Yes - GENITOURINARY/GYNECOLOGICAL Hx Genitourinary Disorders: No - PSYCHIATRIC Hx Psychophysiologic Disorder: Yes Hx Substance Use: Yes (Canabis) - SURGICAL HISTORY Hx Surgeries: Yes Other/Comment: RT.PERMACATH INSERTION 12/30. LT.AV SHUNT CREATION 02/17/16. UNDESCENDED TESTES LT. REMOVED DURING CHILDHOOD - ANESTHESIA Hx Anesthesia: Yes Hx Anesthesia Reactions: No Hx Malignant Hyperthermia: No Meds Allergies/Adverse Reactions: Allergies Allergy/AdvReac Type Severity Reaction Status Date / Time No Known Allergies Allergy Verified 06/11/16 19:42 - Medications Medications: Current Medications Gabapentin (Neurontin) 800 mg PO TID [facility] Last Admin: 06/13/16 13:15 Dose: 800 mg Hydralazine HCl (Apresoline) 50 mg PO Q8 [facility] Last Admin: 06/13/16 13:15 Dose: 50 mg Hydromorphone HCl (Dilaudid) 1 mg IVP Q4H PRN PRN Reason: pain Last Admin: 06/13/16 13:13 Dose: 1 mg Insulin Human Regular (Novolin R) 0 unit SC ACHS [facility] PRN Reason: Protocol Last Admin: 06/13/16 11:41 Dose: 3 unit Labetalol HCl (Trandate) 200 mg PO Q12H [facility] Last Admin: 06/13/16 09:28 Dose: 200 mg Lisinopril (Zestril) 10 mg PO DAILY [facility] Last Admin: 06/13/16 09:04 Dose: 10 mg Ondansetron HCl (Zofran Inj) 4 mg IVP Q6 PRN PRN Reason: Nausea/Vomiting Pantoprazole Sodium (Protonix Ec Tab) 40 mg PO DAILY [facility] Last Admin: 06/13/16 09:04 Dose: 40 mg Sucralfate (Carafate Tab) 1 gm PO BID [facility] Last Admin: 06/13/16 09:05 Dose: 1 gm Physical Exam - Constitutional Appears: Well, Non-toxic, No Acute Distress - Head Exam Head Exam: NORMAL INSPECTION - Eye Exam Eye Exam: Normal appearance - ENT Exam ENT Exam: Mucous Membranes Moist - Neck Exam Neck exam: Positive for: Normal Inspection - Respiratory Exam Respiratory Exam: NORMAL BREATHING PATTERN - Cardiovascular Exam Cardiovascular Exam: +S1, +S2 - GI/Abdominal Exam GI & Abdominal Exam: Soft - Extremities Exam Extremities exam: Positive for: normal inspection - Neurological Exam Neurological exam: Alert, Oriented x3 - Psychiatric Exam Psychiatric exam: Normal Affect Results - Vital Signs Recent Vital Signs: Last Vital Signs Temp 98.4 F 06/13/16 04:00 Pulse 74 06/13/16 13:23 Resp 18 06/13/16 13:23 BP 153/81 H 06/13/16 13:23 Pulse Ox 96 06/13/16 13:23 - Labs Result Diagrams: 06/13/16 08:28 06/13/16 08:28 Labs: Laboratory Results - last 24 hr 06/12/16 06/12/16 06/13/16 16:26 21:13 07:15 WBC RBC Hgb Hct MCV MCH MCHC RDW Plt Count MPV Neut % (Auto) Lymph % (Auto) [place] % (Auto) Eos % (Auto) Baso % (Auto) Neut # Lymph # [place] # Eos # Baso # Sodium Potassium Chloride Carbon Dioxide Anion Gap BUN Creatinine Est GFR ( Amer) Est GFR (Non-Af Amer) POC Glucose (mg/dL) 223 H 228 H 305 H Random Glucose Calcium 06/13/16 06/13/16 06/13/16 08:28 08:28 11:37 WBC 10.8 RBC 4.42 Hgb 12.4 Hct 39.1 MCV 88.4 MCH 28.2 MCHC 31.9 L RDW 16.8 H Plt Count 222 MPV 8.6 Neut % (Auto) 67.9 Lymph % (Auto) 17.8 L [place] % (Auto) 9.4 Eos % (Auto) 3.8 Baso % (Auto) 1.1 Neut # 7.3 H Lymph # 1.9 [place] # 1.0 H Eos # 0.4 Baso # 0.1 Sodium 130 L Potassium 3.9 Chloride 94 L Carbon Dioxide 25 Anion Gap 15 BUN 34 H Creatinine 5.3 H Est GFR ( Amer) 15 Est GFR (Non-Af Amer) 12 POC Glucose (mg/dL) 266 H Random Glucose 308 H Calcium 7.7 L Assessment & Plan - Assessment and Plan (Free Text) Plan: esrd/dm/htn/coffee ground emesis/nhyponatremia hd mwf, continue per schedule volume status stable anemia,stable, no epo. monitor for upper gi bleed per icu lytes reviewed hyponatremia, noted. monitor asymptomatic bp ok
--- NOTE | 2016-06-13 20:23 | CON ---
DATE: 06/11/2016 I was called for GI consultation by the admitting MD. The patient is seen and fully examined on 05/16, as requested by the admitting MD. The entire chart is reviewed. All the available lab and r adiology study results, current and previous medication lists, current and the previous medical event s, allergy to medication list, as well as all the available current and the previous medical records were reviewed. Case discussed at length with the admitting medical team and the ICU staff. HISTORY OF PRESENT ILLNESS: This is a 36-year-old female, a very well-known case for me from [facility] multiple admissions, who was admitted to the hospital with severe abdominal pain, recurrent nausea, and vomiting of some coffeeground material post hemodialysis, with reported diarrhea post admission. No rectal bleeding, chest pain, or significant shortness of breath, but diffuse abdominal pain. After being admitted to the hospital, the patient was found to have elevated white blood cells to 11. 0, but normal hemoglobin and hematocrit, with increased blood glucose level to 267, increased BUN at 21, creatinine elevated to 3.2. PAST MEDICAL HISTORY: Including but not limited to: 1. Peptic ulcer disease with gastritis. 2. Diabetes mellitus with diabetic gastroparesis. 3. History of hypertension. 4. Hyperlipidemia. 5. Peripheral edema syndrome. 6. Known history of end-stage renal disease on hemodialysis. 7. Recently-done upper endoscopy with sealed off Mera-Buitrago tear. FAMILY HISTORY: Unknown. SOCIAL HISTORY: Positive for cigarette smoking, but denies recent history of alcohol intake. CURRENT MEDICATIONS: Medication list was reviewed. ALLERGY TO MEDICATION: List is reviewed. PHYSICAL EXAMINATION: GENERAL: A 36-year-old female, awake, alert, oriented, complaining of diffuse abdominal pain. VITAL SIGNS: Afebrile, with pulse of 92, respiratory rate 20-22, blood pressure 212/106. LYMPH NODES: No lymphadenitis or lymphadenopathy. HEENT: Showed pale, dry oral mucous membranes. Nonicteric sclerae. LUNGS: Scattered crepitation with decreased air entry at bases. HEART: Positive S1 and S2 with increased rate. ABDOMEN: Soft with diffuse tenderness. Bowel sounds are hyperactive. No mass or organomegaly. No rebound tenderness or guarding. RECTAL: The patient refused. EXTREMITIES: With mild lower-extremity edematous changes. No clubbing or cyanosis. NEUROLOGIC: No reported new neurological deficit, sensory, or motor. IMPRESSION: 1. Reexacerbation of peptic ulcer disease. 2. Hematemesis of coffee-grounds material, subsiding post admission. 3. Poorly-controlled diabetes mellitus with diabetic gastroparesis. 4. Poorly-controlled hypertension. 5. Past medical history including, but not limited to, end-stage renal disease, hyperlipidemia, roque estive heart failure by history. SUGGESTIONS: 1. Agree with your plan. 2. Close observation with proton pump inhibitor. 3. Reglan IV. If there is no response, then erythromycin to be added IV. 4. Will control the patient's diabetes mellitus, as well as his hypertension. 5. Adjust oral intake. 6. Repeat abdominal ultrasound with serum lipase and amylase levels. Further recommendations to follow. Panda Armstrong MD cc: 14 TT: 06/13/2016 20:23:35 Confirmation # [id number] Dictation # [id number]
[2016-06-14] MEDS: HYDROmorphone 1 mg/ml ISec IVP PRN ×4 (01:36→14:05)
[2016-06-14] MEDS: (Novolin R) Insulin Human Regular 100 units/ml vial SC SCH ×3 (07:54→16:27)
[2016-06-14] MEDS: Pantoprazole 40 mg EC Tab PO SCH (09:05)
--- NOTE | 2016-06-14 11:20 | CP.PCM.PN ---
Subjective - Date & Time of Evaluation Date of Evaluation: 06/14/16 Time of Evaluation: 11:25 - Subjective Subjective: 36 y/[facility], is admitted for vomiting coffee ground materialIDDm, multiple hosp adm for abdominal pain &N & V Sedated. No dyspnea noted Objective - Vital Signs/Intake and Output Vital Signs (last 24 hours): Temp Pulse Resp BP Pulse Ox 97.6 F 89 18 162/88 H 96 06/14/16 08:00 06/14/16 08:00 06/14/16 08:00 06/14/16 08:00 06/14/16 04:00 Intake and Output: 06/14/16 06/14/16 06:59 18:59 Intake Total 480 Output Total 400 Balance 80 - Medications Medications: Current Medications Gabapentin (Neurontin) 800 mg PO TID [facility] Last Admin: 06/14/16 09:06 Dose: 800 mg Hydralazine HCl (Apresoline) 50 mg PO Q8 [facility] Last Admin: 06/14/16 05:41 Dose: 50 mg Hydromorphone HCl (Dilaudid) 1 mg IVP Q4H PRN PRN Reason: pain Last Admin: 06/14/16 10:03 Dose: 1 mg Insulin Human Regular (Novolin R) 0 unit SC ACHS [facility] PRN Reason: Protocol Last Admin: 06/14/16 07:54 Dose: 2 unit Labetalol HCl (Trandate) 200 mg PO Q12H [facility] Last Admin: 06/14/16 10:03 Dose: 200 mg Lisinopril (Zestril) 10 mg PO DAILY [facility] Last Admin: 06/14/16 09:05 Dose: 10 mg Ondansetron HCl (Zofran Inj) 4 mg IVP Q6 PRN PRN Reason: Nausea/Vomiting Pantoprazole Sodium (Protonix Ec Tab) 40 mg PO DAILY [facility] Last Admin: 06/14/16 09:05 Dose: 40 mg Sucralfate (Carafate Tab) 1 gm PO BID [facility] Last Admin: 06/14/16 09:05 Dose: 1 gm - Labs Labs: 06/13/16 08:28 06/13/16 08:28 PT 10.4 SECONDS (9.7-12.2) 06/11/16 20:22 INR 0.9 06/11/16 20:22 APTT 33 SECONDS (21-34) 06/11/16 20:22 - Respiratory Exam Additional comments: Lungs clear - Cardiovascular Exam Cardiovascular Exam: REGULAR RHYTHM - GI/Abdominal Exam GI & Abdominal Exam: Soft - Extremities Exam Additional comments: Trace b/l pedal edema Assessment and Plan - Assessment and Plan (Free Text) Assessment: ESRD on maintenance HD Abdominal pain , vomiting coffee ground IDDM HTN Plan: For lukas;ysis today BP controlled Hb is stable
[2016-06-14 12:14] VITALS: O2SAT 97
--- NOTE | 2016-06-14 13:08 | PN ---
DATE: 06/14/2016 LOCATION: ICU 3. This is a 36-year-old male with a complaint of abdominal pain on and off with intermittent periods of mild shortness of breath, but no other significant clinical changes or reported active bleeding. Th e entire chart is reviewed including, but not limited to, most recent lab and radiology study results , current and previous medication lists. Case discussed with the staff in ICU at length and the late st blood glucose level is still 308 with low calcium as well as increased BUN and creatinine with low sodium, compatible with the patient's known history of renal failure, on hemodialysis. PHYSICAL EXAMINATION: GENERAL: A 36-year-old male, awake, alert, oriented. VITAL SIGNS: Afebrile with heart rate of 86, respiratory rate 22-24 with blood pressure 154/82. HEENT: Showed pale, dry oral mucoid membrane. Nonicteric sclerae. LUNGS: Few scattered crepitation, decreased air entry at bases. HEART: Positive S1 and S2. ABDOMEN: Soft. Bowel sounds are present with slight generalized tenderness. No mass or organomegal y. No rebound tenderness or guarding. EXTREMITIES: With mild lower extremities edematous changes. No clubbing or cyanosis. IMPRESSION: 1. Poorly controlled hypertension. 2. Peptic ulcer disease. 3. Poorly controlled diabetes mellitus. 4. Diabetic gastroparesis. 5. End-stage renal disease, on hemodialysis. 6. Known history of hyperlipidemia with periods of congestive heart failure as well as peripheral ed david syndrome. SUGGESTION: 1. Continue current management. 2. Abdominal ultrasound. 3. Repeat serum lipase, amylase level. Panda Armstrong MD cc: 14 TT: 06/14/2016 13:07:34 Confirmation # [id number] Dictation # [id number]
--- NOTE | 2016-06-14 13:18 | CP.PCM.PN ---
Subjective - Date & Time of Evaluation Date of Evaluation: 06/14/16 Time of Evaluation: 09:00 - Subjective Subjective: Medicine Progress Note- Dr. Chadwick's Service: Patient seen and examined at bedside this AM. Patient reports he is feeling ready to go home. No acute events overnight. Patient is scheduled for hemodyalisis today. Discharge planning as per Dr. Chadwick after HD. Objective - Vital Signs/Intake and Output Vital Signs (last 24 hours): Temp Pulse Resp BP Pulse Ox 97.6 F 89 23 159/84 H 97 06/14/16 08:00 06/14/16 12:00 06/14/16 12:00 06/14/16 12:00 06/14/16 12:00 Intake and Output: 06/14/16 06/14/16 06:59 18:59 Intake Total 480 680 Output Total 400 300 Balance 80 380 - Medications Medications: Current Medications Gabapentin (Neurontin) 800 mg PO TID [facility] Last Admin: 06/14/16 09:06 Dose: 800 mg Hydralazine HCl (Apresoline) 50 mg PO Q8 [facility] Last Admin: 06/14/16 05:41 Dose: 50 mg Hydromorphone HCl (Dilaudid) 1 mg IVP Q4H PRN PRN Reason: pain Last Admin: 06/14/16 10:03 Dose: 1 mg Insulin Human Regular (Novolin R) 0 unit SC ACHS [facility] PRN Reason: Protocol Last Admin: 06/14/16 12:10 Dose: 4 unit Labetalol HCl (Trandate) 200 mg PO Q12H [facility] Last Admin: 06/14/16 10:03 Dose: 200 mg Lisinopril (Zestril) 10 mg PO DAILY [facility] Last Admin: 06/14/16 09:05 Dose: 10 mg Ondansetron HCl (Zofran Inj) 4 mg IVP Q6 PRN PRN Reason: Nausea/Vomiting Pantoprazole Sodium (Protonix Ec Tab) 40 mg PO DAILY [facility] Last Admin: 06/14/16 09:05 Dose: 40 mg Sucralfate (Carafate Tab) 1 gm PO BID [facility] Last Admin: 06/14/16 09:05 Dose: 1 gm - Labs Labs: 06/13/16 08:28 06/13/16 08:28 PT 10.4 SECONDS (9.7-12.2) 06/11/16 20:22 INR 0.9 06/11/16 20:22 APTT 33 SECONDS (21-34) 06/11/16 20:22 - Constitutional Appears: No Acute Distress - Head Exam Head Exam: NORMAL INSPECTION, NORMOCEPHALIC - Eye Exam Eye Exam: EOMI, Normal appearance - ENT Exam ENT Exam: Mucous Membranes Moist - Neck Exam Neck Exam: Full ROM, Normal Inspection - Respiratory Exam Respiratory Exam: Clear to Ausculation Bilateral, NORMAL BREATHING PATTERN - Cardiovascular Exam Cardiovascular Exam: REGULAR RHYTHM - GI/Abdominal Exam GI & Abdominal Exam: Soft, Tenderness - Extremities Exam Extremities Exam: Normal Inspection - Neurological Exam Neurological Exam: Alert, Awake, Oriented x3 - Psychiatric Exam Psychiatric exam: Flat Affect, Normal Mood - Skin Skin Exam: Normal Color, Warm Assessment and Plan - Assessment and Plan (Free Text) Assessment: (1) Nausea and vomiting Patient with history of cannabinoid abuse which may be etiology of hyperemesis. Patient is on Zofran 4mg IVP Q4H, Carafate 1gm bid, Protonix 40mg IVP Dr. Armstrong consulted, help appreciated. Dilaudid 1mg q4h PRN for pain Last Colonoscopy 05/07/16: moderate nonbleeding internal hemorrhoids, two sessile polyps 10-11mm in colon and two 4-5mm polyps in transverse colon. Patient needs to repeat in 3 years. Status: Acute (2) ESRD (end stage renal disease) on dialysis Assessment & Plan: consult nephro- Dr. Plasencia Will continue current dialysis schedule of MWF Status: Chronic (3) DM2 (diabetes mellitus, type 2) Assessment & Plan: accucheck UMER DURAND Status: Chronic (4) HTN (hypertension) Assessment & Plan: Continue Hydralazine 50mg Q8h, Zestril 10mg daily, Labetalol 200mg q12h. Status: Chronic (5) Prophylactic measure Assessment & Plan: Protonix 40mg IVP daily Heparin 5000 units SC q12h Status: Acute Patient is to be discharged home as per Dr. Chadwick.
[2016-06-14 20:56] VITALS: BP 140/84; PULSE 86; RESP 20; TEMP 98.7
--- NOTE | 2016-06-16 08:56 | CARD ---
APPROVED REPORT EKG Measurement Heart [id number] <Conclusion> Normal sinus rhythm Nonspecific T wave abnormality Prolonged QT LVH Abnormal ECG
--- NOTE | 2016-07-09 11:21 | HP ---
The patient admitted to the hospital with generalized abdominal pain, nausea, vomiting coffee-ground material. The patient came to the ER, advised admission. PHYSICAL EXAMINATION: GENERAL: The patient is awake, alert, oriented. VITAL SIGNS: Temperature 98, pulse 90. HEENT: Within normal limits. NECK: Supple. CHEST: Symmetrical. HEART: Regular. ABDOMEN: Soft. EXTREMITIES: No edema. The patient suffers from gastritis, renal failure. Lucero Mcgraw MD cc: [phone] TT: 07/09/2016 08:31:40 tn
--- NOTE | 2016-07-09 11:25 | DS ---
The patient admitted to the hospital with chief complaint of nausea, vomiting, abdominal pain. The p atient placed on bedrest, supportive care, showed improvement. Discharged to follow as outpatient. Lucero Mcgraw MD cc: [id number] TT: 07/09/2016 10:39:22 tn
== END 2016-06-14 20:24 | disposition home or self-care (01) | DRG 383 ==
LOC: C.ER 19:23 → C.9E 21:56 → C.9I 06-12 01:11
PROVIDERS: ADMIT Internal Medicine Pulmonary Disease; ATTEND Internal Medicine Pulmonary Disease
PROC: 5A1D00Z (ICD-10-PCS; principal; 2016-06-14)
DX: K27.9 Peptic ulcer, site unspecified, unspecified as acute or chronic, without hemorrhage or perforation (principal); N18.6 End stage renal disease; I13.2 Hypertensive heart and chronic kidney disease with heart failure and with stage 5 chronic kidney disease, or end stage renal disease; E11.22 Type 2 diabetes mellitus with diabetic chronic kidney disease; K31.84 Gastroparesis; E11.43 Type 2 diabetes mellitus with diabetic autonomic (poly)neuropathy; E87.1 Hypo-osmolality and hyponatremia; K92.0 Hematemesis; E11.319 Type 2 diabetes mellitus with unspecified diabetic retinopathy without macular edema; I50.9 Heart failure, unspecified; D72.829 Elevated white blood cell count, unspecified; E78.5 Hyperlipidemia, unspecified; E11.65 Type 2 diabetes mellitus with hyperglycemia; E78.00 Pure hypercholesterolemia, unspecified; F17.210 Nicotine dependence, cigarettes, uncomplicated; Z79.4 Long term (current) use of insulin; Z98.42 Cataract extraction status, left eye

== ENCOUNTER 2016-06-21 17:58 | Inpatient (IN) | payer MEDICARE, MEDICAID ==
[2016-06-21 17:58] VITALS: BMI 27.0
[2016-06-21] MEDS ORDERED: Sodium Chloride 0.9% 1,000 ML IV ONE (19:39)
--- NOTE | 2016-06-21 19:39 | C.PDOC ---
History Of Present Illness 36 y/o male, past history of end stage renal disease, presents to ED with complaint of nausea and vomiting since last night. Patient notes he had dialysis today. Patient reports coffee ground emesis today, with about 200 cc of coffee ground emesis in ED. Denies fever, chills, chest pain, or SOB. Time Seen by Provider: 06/21/16 19:39 Chief Complaint (Nursing): GI Problem History Per: Patient History/Exam Limitations: no limitations Onset/Duration Of Symptoms: Hrs Current Symptoms Are (Timing): Still Present Context: Other Severity: Moderate Pain Scale Rating Of: 4 Location Of Pain/Discomfort: Diffuse Radiation Of Pain To:: None Quality Of Discomfort: "Pain" Associated Symptoms: Nausea, Vomiting. denies: Fever, Chills, Diarrhea, Back Pain, Chest Pain, Urinary Symptoms Exacerbating Factors: None Alleviating Factors: None Last Bowel Movement: Today Recent travel outside of the [place]: No Additional History Per: Patient Past Medical History Reviewed: Historical Data, Nursing Documentation, Vital Signs Vital Signs: Last Vital Signs Temp 97.8 F 06/21/16 18:06 Pulse 93 H 06/21/16 18:06 Resp 18 06/21/16 18:06 BP 209/107 H 06/21/16 18:06 Pulse Ox 98 06/21/16 19:59 - Medical History PMH: CHF, Diabetes, Gastritis, HTN, Hypercholesterolemia, Peripheral Edema, End Stage Renal Disease, Chronic Kidney Disease - [facility] Procedures BYPASS LEFT BRACHIAL ARTERY TO UPPER ARM VEIN, OPEN APPROACH (02/17/16) EXCISION OF ASCENDING COLON, ENDO, DIAGN (12/19/15) EXCISION OF DUODENUM, ENDO, DIAGN (03/25/16) EXCISION OF LARGE INTESTINE, ENDO, DIAGN (05/06/16) EXCISION OF MIDDLE ESOPHAGUS, ENDO, DIAGN (03/25/16) EXCISION OF STOMACH, ENDO, DIAGN (06/03/16) EXCISION OF TRANSVERSE COLON, ENDO, DIAGN (05/06/16) INSERTION OF INFUSION DEV INTO SUP VENA CAVA, PERC APPROACH (12/19/15) PERFORMANCE OF URINARY FILTRATION, MULTIPLE (05/25/16) PERFORMANCE OF URINARY FILTRATION, SINGLE (06/11/16) REPOSITION LEFT BASILIC VEIN, OPEN APPROACH (05/25/16) ULTRASONOGRAPHY OF SUPERIOR VENA CAVA, GUIDANCE (12/19/15) Family History: States: Unknown Family Hx - Social History Hx Tobacco Use: Yes (some days) Hx Alcohol Use: No Hx Substance Use: Yes (Canabis) - Immunization History Hx Tetanus Toxoid Vaccination: Yes Hx Influenza Vaccination: Yes Hx Pneumococcal Vaccination: Yes Review Of Systems Constitutional: Negative for: Fever, Chills Eyes: Negative for: Redness ENT: Negative for: Throat Pain Cardiovascular: Negative for: Chest Pain, Palpitations Respiratory: Negative for: Cough, Shortness of Breath, Wheezing Gastrointestinal: Positive for: Nausea, Vomiting, Abdominal Pain, Hematemesis. Negative for: Diarrhea Musculoskeletal: Negative for: Back Pain Skin: Negative for: Rash Neurological: Negative for: Dizziness Psych: Negative for: Anxiety Physical Exam - Physical Exam Appears: Non-toxic, Other (Moderate discomfort) Skin: Warm, Dry Head: Normacephalic Eye(s): bilateral: Normal Inspection Oral Mucosa: Moist Neck: Supple Chest: Symmetrical, Other (dialysis port, left chest) Cardiovascular: Rhythm Regular Respiratory: No Accessory Muscle Use, No Rales, No Rhonchi, No Wheezing Gastrointestinal/Abdominal: Soft, Tenderness (moderate, diffuse), No Guarding, No Rebound Back: Normal Inspection Extremity: Normal ROM, Capillary Refill (< 2 sec. ), Other (left arm graft w/ good thrill and bruit, not used yet) Extremity: Bilateral: Atraumatic, Normal Color And Temperature Neurological/Psych: Oriented x3, Normal Speech, Normal Cognition Gait: Steady ED Course And Treatment - Laboratory Results Result Diagrams: 06/21/16 19:42 06/21/16 19:42 O2 Sat by Pulse Oximetry: 98 (RA) Pulse Ox Interpretation: Normal Progress Note: Zofran, Protonix, IVFs, labs ordered. Disposition Discussed With : Lucero Chadwick Comment: accepted the pt on his service and took over the care at 8:35 PM Doctor Will See Patient In The: Hospital Counseled Patient/Family Regarding: Studies Performed, Diagnosis - Disposition Disposition: HOSPITALIZED Disposition Time: 19:39 Condition: FAIR - POA Present On Arrival: Poor Glycemic Control - Clinical Impression Clinical Impression: Coffee ground emesis, Nausea, ESRD (end stage renal disease) on dialysis - Scribe Statement The provider has reviewed the documentation as recorded by the Js Stoner Provider Scribe Attestation: All medical record entries made by the Scribe were at my direction and personally dictated by me. I have reviewed the chart and agree that the record accurately reflects my personal performance of the history, physical exam, medical decision making, and the department course for this patient. I have also personally directed, reviewed, and agree with the discharge instructions and disposition. Decision To Admit - Pt Status Changed To: Hospital Disposition Of: Inpatient - Admit Certification Admit to Inpatient:: After my assessment, the patient will require hospitalization for at least two midnights. This is because of the severity of symptoms shown, intensity of services needed, and/or the medical risk in this patient being treated as an outpatient. - InPatient: Physician Admission Certification:: After my assessment, the patient will require hospitalization for at least two midnights. This is because of the severity of symptoms shown, intensity of services needed, and/or the medical risk in this patient being treated as an outpatient. - . Bed Request Type: Regular Admitting Physician: Lucero Chadwick Patient Diagnosis: Coffee ground emesis, Nausea, ESRD (end stage renal disease) on dialysis
[2016-06-21] MEDS ORDERED: Pantoprazole 80 MG in Sodium Chloride 0.9% 100 ML IVP SCH (19:45)
[2016-06-21 19:46] LABS: BASO # 0.1 K/uL (0.0-0.2); BASO % 0.6 % (0.0-2.0); EOS # 0.1 K/uL (0.0-0.7); EOS % 0.5 % (0.0-4.0); HEMATOCRIT 41.7 % (35.0-51.0); LYMPH # 1.1 K/uL (1.0-4.3); LYMPH % 9.7 % (20.0-40.0); MEAN CORPUSCULAR HEMOGLOBIN 27.6 pg (27.0-31.0); MEAN CORPUSCULAR HGB CONC 32.1 g/dL (33.0-37.0); MEAN PLATELET VOLUME 9.4 fL (7.2-11.7); MONO # 0.4 K/uL (0.0-0.8); PLATELET COUNT 291 K/uL (130-400); WHITE BLOOD COUNT 10.9 K/uL (4.8-10.8)
[2016-06-21 19:54] LABS: POTASSIUM 3.3 mmol/L (3.6-5.2)
[2016-06-21 19:56] LABS: BILIRUBIN,TOTAL 0.8 mg/dL (0.2-1.3); TOTAL PROTEIN 7.6 g/dL (6.3-8.3)
[2016-06-21 19:57] LABS: CALCIUM 8.8 mg/dl (8.6-10.4)
[2016-06-21] MEDS: Pantoprazole 80 MG in Sodium Chloride 0.9% 100 ML IVPB SCH (20:42)
[2016-06-21] MEDS: (Novolog) Insulin Aspart, Recombinant 100 u/ml 10 ml vial SC SCH (23:09)
[2016-06-21 23:19] LABS: EOSINOPHIL 1 % (0-4); NEUTROPHIL 79 % (50-75); TOTAL CELLS COUNTED 100
[2016-06-21 23:21] LABS: LARGE PLATELETS PRESENT; SMUDGE CELLS PRESENT
[2016-06-22] MEDS: Pantoprazole 80 MG in Sodium Chloride 0.9% 100 ML IVPB SCH ×2 (05:54→16:00)
[2016-06-22] MEDS: Oxycodone/Acetaminophen 5/325 mg Tab PO PRN ×3 (06:00→22:12)
[2016-06-22] MEDS: (Novolog) Insulin Aspart, Recombinant 100 u/ml 10 ml vial SC SCH ×4 (08:42→21:52)
--- NOTE | 2016-06-22 11:47 | CP.PCM.CON ---
History of Present Illness - History of Present Illness History of Present Illness: 36 y/o male with ESRD on [facility] HD MWF, IDDM,? gastroparesis ,multiple hosp. admissions for abdominal pain was admitted yesterday for c/o abdominal pain & vomiting coffee ground material pt had lukas;ysis on Tue. Past Patient History - Infectious Disease Hx of Infectious Diseases: None - Past Medical History & Family History Past Medical History?: Yes - Past Social History Smoking Status: occasional - CARDIAC Hx Cardiac Disorders: Yes Hx Congestive Heart Failure: Yes Hx Hypercholesterolemia: Yes Hx Hypertension: Yes Hx Peripheral Edema: Yes - PULMONARY Hx Respiratory Disorders: No - NEUROLOGICAL Hx Neurological Disorder: No - HEENT Hx HEENT Problems: Yes Hx Cataracts: Yes Other/Comment: cataract surgery left eye - RENAL Hx Chronic Kidney Disease: Yes Hx Dialysis: Yes Type of Dialysis Access: rt. chest HD cath Date of Last Dialysis Treatment: 06/21/16 - ENDOCRINE/METABOLIC Hx Endocrine Disorders: Yes Hx Diabetes Mellitus Type 2: Yes - HEMATOLOGICAL/ONCOLOGICAL Hx Blood Disorders: No Hx Human Immunodeficiency Virus (HIV): No - INTEGUMENTARY Hx Dermatological Problems: No - MUSCULOSKELETAL/RHEUMATOLOGICAL Hx Musculoskeletal Disorders: Yes Hx Falls: Yes - GASTROINTESTINAL Hx Gastrointestinal Disorders: Yes Hx Gastritis: Yes - GENITOURINARY/GYNECOLOGICAL Hx Genitourinary Disorders: No - PSYCHIATRIC Hx Psychophysiologic Disorder: Yes Hx Substance Use: Yes (Cannabis) - SURGICAL HISTORY Hx Surgeries: Yes Other/Comment: RT.PERMACATH INSERTION 12/30. LT.AV SHUNT CREATION 02/17/16. UNDESCENDED TESTES LT. REMOVED DURING CHILDHOOD - ANESTHESIA Hx Anesthesia: Yes Hx Anesthesia Reactions: No Hx Malignant Hyperthermia: No Meds Allergies/Adverse Reactions: Allergies Allergy/AdvReac Type Severity Reaction Status Date / Time No Known Allergies Allergy Verified 06/11/16 19:42 - Medications Medications: Current Medications Clonidine HCl (Catapres) 0.3 mg PO Q8 [facility] Last Admin: 06/22/16 05:54 Dose: 0.3 mg Gabapentin (Neurontin) 300 mg PO TID [facility] Last Admin: 06/22/16 10:15 Dose: 300 mg Hydralazine HCl (Apresoline) 50 mg PO Q8 [facility] Last Admin: 06/22/16 05:54 Dose: 50 mg Pantoprazole Sodium 80 mg/ (Sodium Chloride) 100 mls @ 10 mls/hr IVPB .Q10H [facility] PRN Reason: 8 MG/HR Last Admin: 06/22/16 05:54 Dose: 10 mls/hr Insulin Aspart (Novolog) 0 unit SC ACHS [facility] PRN Reason: Protocol Labetalol HCl (Trandate) 200 mg PO Q12H [facility] Last Admin: 06/22/16 10:16 Dose: 200 mg Lisinopril (Zestril) 10 mg PO DAILY [facility] Last Admin: 06/22/16 10:17 Dose: 10 mg Ondansetron HCl (Zofran Inj) 8 mg IVP Q8 PRN PRN Reason: nausea and vomiting Last Admin: 06/22/16 02:10 Dose: 8 mg Oxycodone/Acetaminophen (Percocet 5/325 Mg Tab) 1 tab PO Q6H PRN PRN Reason: Pain, severe (8-10) Stop: 06/24/16 22:00 Last Admin: 06/22/16 06:00 Dose: 1 tab Pneumococcal Polyvalent Vaccine (Pneumovax 23 Vaccine) 0.5 ml IM .ONCE ONE Stop: 06/23/16 10:01 Physical Exam - Constitutional Appears: No Acute Distress - Head Exam Head Exam: ATRAUMATIC, NORMOCEPHALIC - Eye Exam Additional comments: Sclera anicteric - ENT Exam ENT Exam: Mucous Membranes Moist - Respiratory Exam Additional comments: Neck supple - Cardiovascular Exam Cardiovascular Exam: REGULAR RHYTHM - GI/Abdominal Exam GI & Abdominal Exam: Soft Additional comments: RLQ tenderness with guarding - Extremities Exam Additional comments: No edema Results - Vital Signs Recent Vital Signs: Last Vital Signs Temp 99.0 F 06/22/16 07:13 Pulse 87 06/22/16 07:13 Resp 20 06/22/16 07:13 BP 175/77 H 06/22/16 07:13 Pulse Ox 98 06/22/16 07:13 - Labs Result Diagrams: 06/21/16 19:42 06/21/16 19:42 Labs: Laboratory Results - last 24 hr 06/21/16 06/21/16 06/22/16 21:17 22:58 07:28 POC Glucose (mg/dL) 281 H 213 H Gastric Occult Blood Postive H 06/22/16 11:08 POC Glucose (mg/dL) 271 H Gastric Occult Blood Assessment & Plan - Assessment and Plan (Free Text) Assessment: ESRD HTN Abdominal pain GI bleed IDDM with complications Plan: BP is stable Hb stable Continue HD MWF
--- NOTE | 2016-06-22 11:49 | CP.PCM.PN ---
Subjective - Date & Time of Evaluation Date of Evaluation: 06/22/16 Time of Evaluation: 13:00 - Subjective Subjective: Medicine Progress Note Patient seen and examined. Patient was admitted yesterday for vomiting coffee ground emesis. The patient has a history of gastroparesis secondary to chronic marijuana use. Patient admits that he was smoking marijuana daily despite being aware of his medical condition. Patient complains of generalized body aches and chronic stomach pain and requests IV pain medication. Patient does not want to take oral medication. He denies fever, chills, vomiting since admission, chest pain and shortness of breath. Objective - Vital Signs/Intake and Output Vital Signs (last 24 hours): Temp Pulse Resp BP Pulse Ox 99.0 F 87 20 175/77 H 98 06/22/16 07:13 06/22/16 07:13 06/22/16 07:13 06/22/16 07:13 06/22/16 07:13 Intake and Output: 06/22/16 06/22/16 06:59 18:59 Intake Total 280 Balance 280 - Medications Medications: Current Medications Clonidine HCl (Catapres) 0.3 mg PO Q8 [facility] Last Admin: 06/22/16 05:54 Dose: 0.3 mg Gabapentin (Neurontin) 300 mg PO TID [facility] Last Admin: 06/22/16 10:15 Dose: 300 mg Hydralazine HCl (Apresoline) 50 mg PO Q8 [facility] Last Admin: 06/22/16 05:54 Dose: 50 mg Pantoprazole Sodium 80 mg/ (Sodium Chloride) 100 mls @ 10 mls/hr IVPB .Q10H [facility] PRN Reason: 8 MG/HR Last Admin: 06/22/16 05:54 Dose: 10 mls/hr Insulin Aspart (Novolog) 0 unit SC ACHS [facility] PRN Reason: Protocol Labetalol HCl (Trandate) 200 mg PO Q12H [facility] Last Admin: 06/22/16 10:16 Dose: 200 mg Lisinopril (Zestril) 10 mg PO DAILY [facility] Last Admin: 06/22/16 10:17 Dose: 10 mg Ondansetron HCl (Zofran Inj) 8 mg IVP Q8 PRN PRN Reason: nausea and vomiting Last Admin: 06/22/16 02:10 Dose: 8 mg Oxycodone/Acetaminophen (Percocet 5/325 Mg Tab) 1 tab PO Q6H PRN PRN Reason: Pain, severe (8-10) Stop: 06/24/16 22:00 Last Admin: 06/22/16 06:00 Dose: 1 tab Pneumococcal Polyvalent Vaccine (Pneumovax 23 Vaccine) 0.5 ml IM .ONCE ONE Stop: 06/23/16 10:01 - Labs Labs: PT 10.6 SECONDS (9.7-12.2) 06/21/16 19:42 INR 1.0 06/21/16 19:42 APTT 32 SECONDS (21-34) 06/21/16 19:42 - Constitutional Appears: No Acute Distress - Head Exam Head Exam: ATRAUMATIC, NORMOCEPHALIC - Eye Exam Eye Exam: EOMI, Normal appearance - ENT Exam ENT Exam: Mucous Membranes Moist - Neck Exam Neck Exam: Normal Inspection - Respiratory Exam Respiratory Exam: Clear to Ausculation Bilateral, NORMAL BREATHING PATTERN. absent: Rhonchi, Wheezes, Respiratory Distress - Cardiovascular Exam Cardiovascular Exam: REGULAR RHYTHM, +S1, +S2 - GI/Abdominal Exam GI & Abdominal Exam: Soft, Tenderness (generalized), Normal Bowel Sounds - Extremities Exam Extremities Exam: Normal Inspection - Neurological Exam Neurological Exam: Alert, Awake, Oriented x3 - Psychiatric Exam Psychiatric exam: Normal Affect, Normal Mood - Skin Skin Exam: Dry, Intact, Normal Color, Warm Assessment and Plan - Assessment and Plan (Free Text) Assessment: 1. GI bleed Gastric occult blood positive Hgb 13.4, hemodynamically stable Lipase 51 GI consulted- Dr Armstrong Liquid diet Protonix drip Zofran prn n/v 2. ESRD on HD Nephro consulted- help appreciated Continue MWF HD 3. Uncontrolled HTN Labetolol 200mg PO q12h Hydralazine 50mg PO q8h Lisinopril 10mg PO daily 4. DM Accuchecks ISS Gabapentin 300mg PO TID (renally dosed) 4. Leukocytosis WBC 10.9, 6 bands Monitor IVF NS 4. Prophylactic measures Chemical anticoagulation contraindicated SCDs Protonix drip
[2016-06-23] MEDS: Pantoprazole 80 MG in Sodium Chloride 0.9% 100 ML IVPB SCH (02:00)
[2016-06-23] MEDS: Oxycodone/Acetaminophen 5/325 mg Tab PO PRN ×3 (05:40→17:30)
[2016-06-23 07:16] LABS: BASO # 0.1 K/uL (0.0-0.2); BASO % 0.6 % (0.0-2.0); EOS # 0.3 K/uL (0.0-0.7); EOS % 2.9 % (0.0-4.0); HEMATOCRIT 37.6 % (35.0-51.0); LYMPH # 1.7 K/uL (1.0-4.3); LYMPH % 15.6 % (20.0-40.0); MEAN CELL VOLUME 87.2 fL (80.0-94.0); MEAN CORPUSCULAR HGB CONC 32.2 g/dL (33.0-37.0); MEAN PLATELET VOLUME 9.1 fL (7.2-11.7); MONO # 1.1 K/uL (0.0-0.8); MONO % 10.4 % (0.0-10.0); NRBC % 0.1 % (0.0-2.0); RED CELL DISTRIBUTION WIDTH 16.2 % (11.5-14.5); WHITE BLOOD COUNT 10.6 K/uL (4.8-10.8)
[2016-06-23] MEDS: (Novolog) Insulin Aspart, Recombinant 100 u/ml 10 ml vial SC SCH ×3 (08:12→16:30)
[2016-06-23 08:22] LABS: ALB/GLOB RATIO 0.9 (1.0-2.1); BILIRUBIN,TOTAL 0.6 mg/dL (0.2-1.3); CALCIUM 7.3 mg/dl (8.6-10.4); POTASSIUM 2.8 mmol/L (3.6-5.2); TOTAL PROTEIN 5.6 g/dL (6.3-8.3)
--- NOTE | 2016-06-23 08:53 | HP ---
The patient admitted to the hospital with chief complaint of weakness, fatigue, tiredness, nausea, vo miting persistent for 3 days. The patient has history of ____, diabetes, hypertension. Status ____ started on hemodialysis for 1 year. The patient is heavy marijuana smoker in spite of multiple advic e to stop doing so. The patient was discharged recently and ____. The patient found to have vomitin g again after he was improved in the past and came to the ER with coffee-grounds emesis. Advised adm ission. MEDICATIONS: Include labetalol, hydralazine, Norvasc. PHYSICAL EXAMINATION: GENERAL: The patient is awake, alert, oriented. VITAL SIGNS: Temperature 98, pulse 90. HEENT: Within normal limit. NECK: Supple. CHEST: Symmetrical. HEART: Regular. ABDOMEN: Soft. EXTREMITIES: No edema. The patient is suffering from intractable vomiting. The patient get bedrest, supportive care. Phan nue treatment. Lucero Mcgraw MD cc: [id number] TT: 06/22/2016 13:07:52 sn
[2016-06-23] MEDS ORDERED: Pneumococcal 23-Valent Vaccine IM ONE (10:00)
--- NOTE | 2016-06-23 10:55 | CP.PCM.PN ---
Subjective - Date & Time of Evaluation Date of Evaluation: 06/23/16 Time of Evaluation: 10:00 - Subjective Subjective: Medicine Progress Note Patient seen and examined. Patient states that he feels well and wishes to eat a sandwich. He is tolerating his liquid diet well. Patient has not had any more episodes of vomiting since 06/21/16. Per patient, he no longer has abdominal pain. Denies fever, chills, nausea, vomiting, diarrhea, abdominal pain, chest pain, shortness of breath, and headache. Patient scheduled for HD today. Objective - Vital Signs/Intake and Output Vital Signs (last 24 hours): Temp Pulse Resp BP Pulse Ox 97.9 F 77 20 173/83 H 98 06/23/16 07:00 06/23/16 07:00 06/23/16 07:00 06/23/16 07:00 06/23/16 07:00 Intake and Output: 06/23/16 06/23/16 06:59 18:59 Intake Total 380 320 Balance 380 320 - Medications Medications: Current Medications Clonidine HCl (Catapres) 0.3 mg PO Q8 [facility] Last Admin: 06/23/16 05:42 Dose: 0.3 mg Gabapentin (Neurontin) 300 mg PO TID [facility] Last Admin: 06/23/16 09:26 Dose: 300 mg Hydralazine HCl (Apresoline) 50 mg PO Q8 [facility] Last Admin: 06/23/16 05:42 Dose: 50 mg Pantoprazole Sodium 80 mg/ (Sodium Chloride) 100 mls @ 10 mls/hr IVPB .Q10H [facility] PRN Reason: 8 MG/HR Last Admin: 06/23/16 02:00 Dose: 10 mls/hr Insulin Aspart (Novolog) 0 unit SC ACHS [facility] PRN Reason: Protocol Last Admin: 06/23/16 08:12 Dose: 4 unit Labetalol HCl (Trandate) 200 mg PO Q12H [facility] Last Admin: 06/23/16 09:26 Dose: 200 mg Lisinopril (Zestril) 10 mg PO DAILY [facility] Last Admin: 06/23/16 09:26 Dose: 10 mg Ondansetron HCl (Zofran Inj) 8 mg IVP Q8 PRN PRN Reason: nausea and vomiting Last Admin: 06/22/16 02:10 Dose: 8 mg Oxycodone/Acetaminophen (Percocet 5/325 Mg Tab) 1 tab PO Q6H PRN PRN Reason: Pain, severe (8-10) Stop: 06/24/16 22:00 Last Admin: 06/23/16 05:40 Dose: 1 tab Potassium Chloride (K-Dur 20 Meq Er Tab) 40 meq PO ONCE ONE Stop: 06/24/16 10:30 - Labs Labs: 06/23/16 07:00 06/23/16 07:00 PT 10.6 SECONDS (9.7-12.2) 06/21/16 19:42 INR 1.0 06/21/16 19:42 APTT 32 SECONDS (21-34) 06/21/16 19:42 - Constitutional Appears: Non-toxic, No Acute Distress - Head Exam Head Exam: ATRAUMATIC, NORMOCEPHALIC - Eye Exam Eye Exam: EOMI, Normal appearance - ENT Exam ENT Exam: Mucous Membranes Moist, Normal Exam - Respiratory Exam Respiratory Exam: Clear to Ausculation Bilateral, NORMAL BREATHING PATTERN. absent: Rhonchi, Wheezes, Respiratory Distress - Cardiovascular Exam Cardiovascular Exam: REGULAR RHYTHM, +S1, +S2 - GI/Abdominal Exam GI & Abdominal Exam: Soft, Normal Bowel Sounds. absent: Distended, Firm, Guarding, Tenderness - Extremities Exam Extremities Exam: Normal Inspection. absent: Pedal Edema - Neurological Exam Neurological Exam: Alert, Awake, CN II-XII Intact, Oriented x3 - Psychiatric Exam Psychiatric exam: Normal Affect, Normal Mood - Skin Skin Exam: Dry, Intact, Normal Color, Warm Assessment and Plan - Assessment and Plan (Free Text) Assessment: 1. GI bleed Gastric occult blood positive, no more episodes of vomiting since admission Hgb 12.1, hemodynamically stable Lipase 51 GI consulted- Dr Armstrong, no intervention at this time. Continue to monitor. Liquid diet advanced to renal diet Protonix drip Zofran prn n/v If patient able to tolerate diet, will discharge home per Dr Chadwick 2. ESRD on HD Nephro consulted- help appreciated Continue MWF HD 3. Uncontrolled HTN Labetolol 200mg PO q12h Hydralazine 50mg PO q8h Lisinopril 10mg PO daily 4. DM Accuchecks ISS Gabapentin 300mg PO TID (renally dosed) 5. Leukocytosis WBC 10.9, 6 bands Monitor IVF NS 6. Marijuana use Consulted Dr Clarke psych Patient has chronic marijuana use causing nausea and vomiting UDS positive 7. Prophylactic measures Chemical anticoagulation contraindicated SCDs Protonix drip Management per Dr Chadwick
[2016-06-23] MEDS ORDERED: Potassium Chloride 20 mEq ER Tab PO ONE (11:30)
--- NOTE | 2016-06-23 16:17 | CP.PCM.PN ---
Subjective - Date & Time of Evaluation Date of Evaluation: 06/23/16 Time of Evaluation: 03:40 - Subjective Subjective: Seen on dialysis Appears comfortable Objective - Vital Signs/Intake and Output Vital Signs (last 24 hours): Temp Pulse Resp BP Pulse Ox 97.7 F 78 20 88/62 L 98 06/23/16 14:00 06/23/16 15:04 06/23/16 15:04 06/23/16 16:00 06/23/16 14:00 Intake and Output: 06/23/16 06/23/16 06:59 18:59 Intake Total 380 660 Balance 380 660 - Medications Medications: Current Medications Clonidine HCl (Catapres) 0.3 mg PO Q8 [facility] Last Admin: 06/23/16 15:16 Dose: Not Given Gabapentin (Neurontin) 300 mg PO TID [facility] Last Admin: 06/23/16 15:16 Dose: Not Given Hydralazine HCl (Apresoline) 50 mg PO Q8 [facility] Last Admin: 06/23/16 15:16 Dose: Not Given Insulin Aspart (Novolog) 0 unit SC ACHS [facility] PRN Reason: Protocol Last Admin: 06/23/16 12:21 Dose: 5 unit Labetalol HCl (Trandate) 200 mg PO Q12H [facility] Last Admin: 06/23/16 09:26 Dose: 200 mg Lisinopril (Zestril) 10 mg PO DAILY [facility] Last Admin: 06/23/16 09:26 Dose: 10 mg Ondansetron HCl (Zofran Inj) 8 mg IVP Q8 PRN PRN Reason: nausea and vomiting Last Admin: 06/22/16 02:10 Dose: 8 mg Oxycodone/Acetaminophen (Percocet 5/325 Mg Tab) 1 tab PO Q6H PRN PRN Reason: Pain, severe (8-10) Stop: 06/24/16 22:00 Last Admin: 06/23/16 11:39 Dose: 1 tab Pantoprazole Sodium (Protonix Ec Tab) 40 mg PO DAILY [facility] - Labs Labs: 06/23/16 07:00 06/23/16 07:00 PT 10.6 SECONDS (9.7-12.2) 06/21/16 19:42 INR 1.0 06/21/16 19:42 APTT 32 SECONDS (21-34) 06/21/16 19:42 - Respiratory Exam Additional comments: Lungs clear - Cardiovascular Exam Cardiovascular Exam: REGULAR RHYTHM - Extremities Exam Additional comments: No edema Assessment and Plan - Assessment and Plan (Free Text) Assessment: ESRD Hx/o HTN Abdominal pain IDDM Plan: Blood pressurs are on low side today. Pt is asymptomatic. May be due to pain meds Monitor BP 4 K+ bath today Monitor BP
[2016-06-23 17:00] VITALS: TEMP 98.1
--- NOTE | 2016-06-23 17:13 | PCM.PSYCH ---
Initial Psychiatric Evaluation - Initial Psychiatric Evaluation Type of Admission: Voluntary Legal Status: Capacity Chief Complaint (in patient's own words): "I'm OK" History of Present Illness and Precipitating Events: 36 y/o male, single, has 1 child, currently unemployed on SSI, lives with sister with a PMH of EDSR, Diabetes, gastroparesis and chronic marijuana use. Pt smokes marijuana once or twice a day. He started when he was 11 years old. He smokes 2 cigarettes a day and is trying to quit. No other psych sxs reported at this point. Risks of MJ discussed Past psych hx: Denies Medical hx: As above Family psych hx: Unknown Current Medications: Active Medications Generic Name Dose Route Start Last Admin Trade Name Freq PRN Reason Stop Dose Admin Clonidine HCl 0.3 mg 06/22/16 06:00 06/23/16 15:16 Catapres PO Not Given Q8 GADIEL Gabapentin 300 mg 06/22/16 10:00 06/23/16 15:16 Neurontin PO Not Given TID GADIEL Hydralazine HCl 50 mg 06/21/16 22:00 06/23/16 15:16 Apresoline PO Not Given Q8 GADIEL Insulin Aspart 0 unit 06/22/16 11:30 06/23/16 12:21 Novolog SC 5 unit ACHS GADIEL Administration Protocol Labetalol HCl 200 mg 06/21/16 22:00 06/23/16 09:26 Trandate PO 200 mg Q12H GADIEL Administration Lisinopril 10 mg 06/22/16 10:00 06/23/16 09:26 Zestril PO 10 mg DAILY GADIEL Administration Ondansetron HCl 8 mg 06/21/16 21:47 06/22/16 02:10 Zofran Inj IVP 8 mg Q8 PRN Administration nausea and vomiting Oxycodone/Acetaminophen 1 tab 06/21/16 21:59 06/23/16 11:39 Percocet 5/325 Mg Tab PO 06/24/16 22:00 1 tab Q6H PRN Administration Pain, severe (8-10) Pantoprazole Sodium 40 mg 06/24/16 10:00 Protonix Ec Tab PO DAILY GADIEL Past Psychiatric History - Past Psychiatric History Previous Treatment History: None Pertinent Medical Hx (Current Medical&Sleep Prob, Allergies): Allergies Allergy/AdvReac Type Severity Reaction Status Date / Time No Known Allergies Allergy Verified 06/11/16 19:42 Labetalol [Trandate] 200 mg PO Q12H #30 tab 04/05/16 hydrALAZINE [Apresoline] 50 mg PO Q8 #90 tab 05/11/16 Lisinopril [Zestril] 10 mg PO DAILY 05/14/16 Gabapentin [Neurontin] 800 mg PO TID #30 tab 05/17/16 Metoclopramide HCl [Reglan] 10 mg PO TID PRN #90 tablet 05/17/16 Sucralfate [Carafate Tab] 1 gm PO BID #60 tab 05/17/16 Ondansetron ODT [Zofran ODT] 4 mg PO Q8 05/25/16 oxyCODONE/Acetaminophen [Percocet 5/325 mg Tab] 1 ea PO Q6H PRN #15 tab Pantoprazole [Protonix EC Tab] 40 mg PO DAILY #30 ect 06/23/16 Review of Systems - Psychiatric Psychiatric: Abnormal Sleep Pattern. absent: Auditory Hallucinations, Hallucinations, Homicidal Ideation, Suicidal Ideation, Visual Hallucinations Mental Status Examination - Personal Presentation Personal Presentation: Looks older than stated age - Affect Affect: Constricted - Motor Activity Motor Activity: Calm - Reliability in Providing Information Reliability in Providing Information: Good - Speech Speech: Organized - Mood Mood: Neutral - Formal Thought Process Formal Thought Process: No Impairment - Cognitive Functions Orientation: Person, Place, Time Estimate of Intelligence: Average Judgement: Intact, as evidence by: Insight regarding need for hospitalization Memory: Recent intact, as evidence by: Ability to recall events of the day, Remote intact, as evidenced by: Abilit to recall sig. life events - Risk Risk: Diminished functioning DSM 5 DX - DSM 5 DSM 5 Diagnosis: Cannabis use d/o - Recommended/Plan of Treatment Treatment Recommendations and Plan of Treatment: NO treatment necessary now as he is being discharged After care discussed with the pt, i.e. AA-type programs and IOPs. Support and psychoeducation provided 31 min
[2016-06-23 18:36] VITALS: BP 165/86; PULSE 82; RESP 20; O2SAT 99
[2016-06-24] MEDS ORDERED: Pantoprazole 40 mg EC Tab PO SCH (10:00)
== END 2016-06-23 21:30 | disposition home or self-care (01) | DRG 73 ==
LOC: C.ER 17:58 → C.3T 20:36
PROVIDERS: ADMIT Internal Medicine Pulmonary Disease; ATTEND Internal Medicine Pulmonary Disease
PROC: 5A1D00Z (ICD-10-PCS; principal; 2016-06-23)
DX: E11.43 Type 2 diabetes mellitus with diabetic autonomic (poly)neuropathy (principal); N18.6 End stage renal disease; I13.2 Hypertensive heart and chronic kidney disease with heart failure and with stage 5 chronic kidney disease, or end stage renal disease; K92.0 Hematemesis; E11.22 Type 2 diabetes mellitus with diabetic chronic kidney disease; K31.84 Gastroparesis; I50.9 Heart failure, unspecified; F12.10 Cannabis abuse, uncomplicated; F17.210 Nicotine dependence, cigarettes, uncomplicated; I95.2 Hypotension due to drugs; T50.995A Adverse effect of other drugs, medicaments and biological substances, initial encounter; E78.00 Pure hypercholesterolemia, unspecified; Z99.2 Dependence on renal dialysis; Z79.4 Long term (current) use of insulin

== ENCOUNTER 2016-07-16 19:29 | Inpatient (IN) | payer MEDICAID ==
[2016-07-16 19:30] VITALS: BMI 27.0
[2016-07-16 21:45] LABS: BASO % 0.4 % (0.0-2.0); EOS # 0.3 K/uL (0.0-0.7); EOS % 2.6 % (0.0-4.0); HEMATOCRIT 33.9 % (35.0-51.0); LYMPH # 1.3 K/uL (1.0-4.3); LYMPH % 11.3 % (20.0-40.0); MEAN CELL VOLUME 86.1 fL (80.0-94.0); MEAN CORPUSCULAR HGB CONC 32.6 g/dL (33.0-37.0); MEAN PLATELET VOLUME 9.1 fL (7.2-11.7); MONO % 8.6 % (0.0-10.0); RED CELL DISTRIBUTION WIDTH 15.9 % (11.5-14.5); WHITE BLOOD COUNT 11.2 K/uL (4.8-10.8)
[2016-07-16 21:59] LABS: BILIRUBIN,TOTAL 0.7 mg/dL (0.2-1.3); TOTAL PROTEIN 5.8 g/dL (6.3-8.3)
[2016-07-16 22:00] LABS: CALCIUM 7.3 mg/dl (8.6-10.4)
[2016-07-16 22:11] LABS: TROPONIN I 0.062 ng/mL (0.00-0.120)
--- NOTE | 2016-07-16 22:23 | C.PDOC ---
History Of Present Illness Patient is a 36 year old male who presents to the ER with a complaint of cramping abdominal pain and vomiting for the past week. Patient has had multiple admissions for gastroparesis and substance abuse in the past. Patient went to detox and claims mother gave him a percocet. Patient denies fever or chills. Time Seen by Provider: 07/16/16 21:26 Chief Complaint (Nursing): Abdominal Pain History Per: Patient History/Exam Limitations: no limitations Onset/Duration Of Symptoms: Hrs Current Symptoms Are (Timing): Still Present Location Of Pain/Discomfort: Diffuse Radiation Of Pain To:: None Quality Of Discomfort: Cramping Associated Symptoms: Vomiting. denies: Fever, Chills Exacerbating Factors: None Alleviating Factors: None Recent travel outside of the [place]: No Past Medical History Reviewed: Historical Data, Nursing Documentation, Vital Signs Vital Signs: Last Vital Signs Temp 98.2 F 07/16/16 22:54 Pulse 82 07/16/16 22:54 Resp 16 07/16/16 22:54 BP 145/87 07/16/16 22:54 Pulse Ox 100 07/16/16 22:54 - Medical History PMH: CHF, Diabetes (type I), Gastritis, HTN, Hypercholesterolemia, Peripheral Edema, End Stage Renal Disease, Chronic Kidney Disease - [facility] Procedures BYPASS LEFT BRACHIAL ARTERY TO UPPER ARM VEIN, OPEN APPROACH (02/17/16) EXCISION OF ASCENDING COLON, ENDO, DIAGN (12/19/15) EXCISION OF DUODENUM, ENDO, DIAGN (03/25/16) EXCISION OF LARGE INTESTINE, ENDO, DIAGN (05/06/16) EXCISION OF MIDDLE ESOPHAGUS, ENDO, DIAGN (03/25/16) EXCISION OF STOMACH, ENDO, DIAGN (06/03/16) EXCISION OF TRANSVERSE COLON, ENDO, DIAGN (05/06/16) INSERTION OF INFUSION DEV INTO SUP VENA CAVA, PERC APPROACH (12/19/15) PERFORMANCE OF URINARY FILTRATION, MULTIPLE (05/25/16) PERFORMANCE OF URINARY FILTRATION, SINGLE (06/21/16) REPOSITION LEFT BASILIC VEIN, OPEN APPROACH (05/25/16) ULTRASONOGRAPHY OF SUPERIOR VENA CAVA, GUIDANCE (12/19/15) Family History: States: Unknown Family Hx - Social History Hx Tobacco Use: Yes (some days) Hx Alcohol Use: No Hx Substance Use: Yes (Cannabis) - Immunization History Hx Tetanus Toxoid Vaccination: Yes Hx Influenza Vaccination: Yes Hx Pneumococcal Vaccination: Yes Review Of Systems Constitutional: Negative for: Fever, Chills Gastrointestinal: Positive for: Vomiting, Abdominal Pain Physical Exam - Physical Exam Appears: Non-toxic Skin: Normal Color, Warm, Dry Head: Atraumatic, Normacephalic Eye(s): bilateral: Other (Dilated pupils) Oral Mucosa: Moist Chest: Symmetrical, No Tenderness Cardiovascular: Rhythm Regular, No Murmur Respiratory: Normal Breath Sounds, No Rales, No Rhonchi, No Wheezing Gastrointestinal/Abdominal: Soft, No Tenderness, Other (thin flat belly) Neurological/Psych: Oriented x3, Normal Speech, Normal Cognition ED Course And Treatment - Laboratory Results Result Diagrams: 07/16/16 21:42 07/16/16 21:42 Lab Interpretation: Abnormal (c/w ESRD on HD) O2 Sat by Pulse Oximetry: 98 (Room air) Pulse Ox Interpretation: Normal - Radiology CXR: Interpreted by Me CXR Interpretation: Yes: No Acute Disease - Other Rad abd x 2 X-Ray: Interpreted by Me (scant stool/gas) Progress Note: EKG, blood work, urinalysis and abdominal x-ray ordered. Pepcid, toradol and zofran administered. Reevaluation Time: 22:24 Reassessment Condition: Improved - Physician Consult Information Outcome Of Conversation: 2129: d/w Dr Benjamin- PMD- ok to Obs. Medical Decision Making Medical Decision Making: chronic abd pain/n/v/on HD continues to take Percocet and smoke marijuana (unable to give UDS) Disposition Doctor Will See Patient In The: Office Counseled Patient/Family Regarding: Studies Performed, Diagnosis - Disposition Disposition: HOSPITALIZED Disposition Time: 22:25 Condition: GOOD - Clinical Impression Clinical Impression: Abdominal discomfort, ESRD (end stage renal disease), Narcotic abuse, Cannabis abuse - Scribe Statement The provider has reviewed the documentation as recorded by the Scribbrenden Mcclure All medical record entries made by the Raquelibbrenden were at my direction and personally dictated by me. I have reviewed the chart and agree that the record accurately reflects my personal performance of the history, physical exam, medical decision making, and the department course for this patient. I have also personally directed, reviewed, and agree with the discharge instructions and disposition.
[2016-07-17] MEDS ORDERED: Pantoprazole 40 mg EC Tab PO SCH (10:00)
--- NOTE | 2016-07-17 16:34 | RAD ---
PROCEDURE: Radiographs of the chest and abdomen (obstructive series) HISTORY: abd pain COMPARISON: No prior. TECHNIQUE: AP radiograph of the chest, with upright and supine radiographs of the abdomen. FINDINGS: CHEST: Lungs: Clear. Cardiovascular: Normal size heart. No pulmonary vascular congestion. Pleura: No pleural fluid. No pneumothorax. Other findings: In situ right IJ large-bore catheter with tips in the SVC/RA junction. . ABDOMEN AND PELVIS: Bowel: Unremarkable bowel gas pattern. No evidence of mechanical obstruction. Relative paucity of bowel gas. Free air: None. Bones: Unremarkable. Other findings: None. IMPRESSION: No acute cardiopulmonary disease. In situ on dialysis catheter. Up paucity bowel gas however no evidence to suggest acute mechanical bowel obstruction.
[2016-07-17] MEDS: (Novolog) Insulin Aspart, Recombinant 100 u/ml 10 ml vial SC SCH (18:20)
--- NOTE | 2016-07-17 19:36 | PCM.PSYCH ---
Initial Psychiatric Evaluation - Initial Psychiatric Evaluation Type of Admission: Voluntary Legal Status: Capacity Current Medications: Active Medications Generic Name Dose Route Start Last Admin Trade Name Freq PRN Reason Stop Dose Admin Amlodipine Besylate 10 mg 07/17/16 10:00 07/17/16 09:03 Norvasc PO 10 mg DAILY GADIEL Administration Clonidine HCl 0.1 mg 07/17/16 18:00 07/17/16 18:03 Catapres PO 0.1 mg BID GADIEL Administration Gabapentin 200 mg 07/17/16 10:00 07/17/16 18:20 Neurontin PO 200 mg TID GADIEL Administration Heparin Sodium (Porcine) 5,000 units 07/17/16 10:00 07/17/16 10:46 Heparin SC Not Given Q12 [facility] Hydralazine HCl 50 mg 07/17/16 14:13 Apresoline PO Q8 [facility] Insulin Aspart 0 unit 07/17/16 18:15 07/17/16 18:20 Novolog SC 6 unit ACHS GADIEL Administration Protocol Insulin Glargine 15 unit 07/17/16 22:00 Lantus SC HS [facility] Lisinopril 10 mg 07/17/16 10:00 07/17/16 09:03 Zestril PO 10 mg DAILY GADIEL Administration Ondansetron HCl 4 mg 07/17/16 08:41 Zofran Inj IVP Q8H PRN NAUSEA/VOMITING Pantoprazole Sodium 40 mg 07/17/16 10:00 07/17/16 09:03 Protonix Inj IVP 40 mg DAILY GADIEL Administration Rosuvastatin Calcium 20 mg 07/17/16 22:00 Crestor PO HS GADIEL Sucralfate 1 gm 07/17/16 10:00 07/17/16 18:03 Carafate Tab PO 1 gm BID GADIEL Administration Past Psychiatric History - Past Psychiatric History Pertinent Medical Hx (Current Medical&Sleep Prob, Allergies): Allergies Allergy/AdvReac Type Severity Reaction Status Date / Time No Known Allergies Allergy Verified 07/16/16 20:10 hydrALAZINE [Apresoline] 50 mg PO Q8 #90 tab 05/11/16 Lisinopril [Zestril] 10 mg PO DAILY 05/14/16 Gabapentin [Neurontin] 800 mg PO TID #30 tab 05/17/16 Sucralfate [Carafate Tab] 1 gm PO BID #60 tab 05/17/16 Ondansetron ODT [Zofran ODT] 4 mg PO Q8 05/25/16 Atorvastatin [Lipitor] 40 mg PO HS tab 07/02/16 Insulin Aspar/Insulin N 70/30 [Novolog Mix 70/30-U/ml 3Ml] 25 ml SC BID #1 ivania 07/02/16 Metoclopramide HCl [Reglan] 5 mg PO TID PRN #30 tablet 07/02/16 Pantoprazole [Protonix EC Tab] 40 mg PO DAILY #30 ect 07/02/16 amLODIPine [Norvasc] 10 mg PO DAILY tab 07/02/16
[2016-07-17] MEDS: (Lantus) Insulin Glargine, Recombinant SC SCH (22:15)
[2016-07-18] MEDS: (Novolog) Insulin Aspart, Recombinant 100 u/ml 10 ml vial SC SCH ×3 (09:38→16:41)
[2016-07-18 11:34] LABS: BASO % 0.4 % (0.0-2.0); EOS # 0.4 K/uL (0.0-0.7); EOS % 3.1 % (0.0-4.0); HEMATOCRIT 36.5 % (35.0-51.0); LYMPH # 1.5 K/uL (1.0-4.3); LYMPH % 12.8 % (20.0-40.0); MEAN CELL VOLUME 87.6 fL (80.0-94.0); MEAN CORPUSCULAR HEMOGLOBIN 27.8 pg (27.0-31.0); MEAN CORPUSCULAR HGB CONC 31.8 g/dL (33.0-37.0); MEAN PLATELET VOLUME 9.6 fL (7.2-11.7); RED CELL DISTRIBUTION WIDTH 16.2 % (11.5-14.5); WHITE BLOOD COUNT 11.4 K/uL (4.8-10.8)
[2016-07-18 11:47] LABS: POTASSIUM 2.9 mmol/L (3.6-5.2)
[2016-07-18 11:49] LABS: BILIRUBIN,TOTAL 0.5 mg/dL (0.2-1.3)
[2016-07-18 11:50] LABS: ALB/GLOB RATIO 0.9 (1.0-2.1); CALCIUM 7.2 mg/dl (8.6-10.4); TOTAL PROTEIN 5.5 g/dL (6.3-8.3)
[2016-07-18] MEDS ORDERED: Potassium Chloride 20 mEq ER Tab PO ONE (12:13)
[2016-07-18] MEDS ORDERED: Potassium Chloride 20 mEq ER Tab PO STA (12:16)
--- NOTE | 2016-07-18 18:20 | CP.PCM.CON ---
History of Present Illness - History of Present Illness History of Present Illness: Initial Nephrology Consultation: Assessment: End stage renal disease on hemodialysis (MWF) via AVF now Anemia, Hyperphosphatemia, Secondary hyperparathyroidism, HTN Hypokalemia Nausea/vomitting Plan: No acute need for dialysis today. Will plan for dialysis tomorrow. Continue with Nephrovite 1 tab/day. PRBC as needed for anemia. not on MOHINI as last Hb 11.6 Continue with phos binders home dose, check phos level BP control with meds as ordered. Glycemic control, Dialysis consistent diet Further work up/management as per primary team Dose meds/antibiotics (if needed) for ESRD status. Avoid fleets enema/magnesium based laxatives. Supplement KCL 20 mew and repeat serum K it today evening Thanks for allowing me to participate in care of your patient. Will follow patient with you. Please call if any Qs Dr Brenton Larsen Office: [phone] Chief Complaint; nausea/vomitting HPI: Pt is a 36 y/o M with hx of ESRD on hemodialysis (MWF) via AVF, last dialysis tuesday, chronic anemia, hyperphosphatemia, secondary hyperparathyroidism, Diabetes Mellitus, hypertension presented with complaints of intractable nausea/vomitting. now he feels better Denies chest pain, palpitation, shortness of breath, leg swelling ROS: Constitutional Symptoms: Denies fever. No chills. No Recent Weight Changes Eyes: denies change in vision, denies watery eyes, denies double vision Ears/Nose/Mouth/Throat: Denies Abnormal Taste. No Bad breath or Bad Taste. Cardiovascular: No chest pain. There is no shortness of breath. No palpitations. Pulmonary: No shortness of breath or cough. Gastrointestinal: denies abdominal pain had nausea. had vomiting. Denies change in bowel habits. Denies Bleeding Genitourinary: makes small urine. No associated pain or blood. Neurological: Denies headaches. No dizziness. Denies loss of balance. Denies weakness, denies tingling/numbness Dermatological: No Rash or Bruising or ulcers. Psychiatric: Denies Anxiety. No depression. Denies hallucinations. Rheumatological: No joint pain. Denies Joint swelling Endocrine: Denies over tiredness. Denies Fatigue and denies Heat/Cold Intolerance. Physical Examination: General Appearance: Comfortable, in no acute respiratory distress, co-operative . Vitals reviewed and noted as below Head; Atraumatic, normocephalic ENT: no ulcers no thrush. Tongue is midline. Oropharynx: no rash or ulcers. EYES: Pupils are equal, round and reactive to light accommodation. Eye muscles and extraocular movement intact. Sclera is anicteric. Neck; supple no lymphadenopathy, no thyromegaly or bruit Lungs: Normal respiratory rate/effort. Breath sounds bilateral equal and clear Heart: Normal rate. s1s2 normal. No rub or gallop. Extremities: no edema. No varicose veins Neurological: Patient is alert, awake and oriented to person, place and time. No focal deficit. Strength bilateral appropriate and equal Skin: Warm and dry. Normal turgor. No rash. Palpitation: Normal elasticity for age Abdomen: Abdomen is soft. Bowel sounds +. There is no abdominal tenderness, no guarding/rigidity or organomegaly Psych: normal insight and normal affect/mood MSK: no joint tenderness or swelling. Digits and nails normal, no deformity : kidney or bladder not palpable Access: LUE AVF and Rt permacath Labs/imaging reviewed. Past medical history, past surgical history, family history, social history, allergy reviewed and noted as below Past Patient History - Infectious Disease Hx of Infectious Diseases: None - Past Medical History & Family History Past Medical History?: Yes - Past Social History Smoking Status: Never Smoked - CARDIAC Hx Congestive Heart Failure: Yes Hx Hypercholesterolemia: Yes Hx Hypertension: Yes Hx Peripheral Edema: Yes - PULMONARY Hx Respiratory Disorders: No - NEUROLOGICAL Hx Neurological Disorder: No - HEENT Hx HEENT Problems: Yes Hx Cataracts: Yes Other/Comment: cataract surgery left eye - RENAL Hx Chronic Kidney Disease: Yes - ENDOCRINE/METABOLIC Hx Endocrine Disorders: Yes Hx Diabetes Mellitus Type 2: Yes - HEMATOLOGICAL/ONCOLOGICAL Hx Human Immunodeficiency Virus (HIV): No - INTEGUMENTARY Hx Dermatological Problems: No - MUSCULOSKELETAL/RHEUMATOLOGICAL Hx Musculoskeletal Disorders: Yes Hx Falls: Yes - GASTROINTESTINAL Hx Gastritis: Yes - GENITOURINARY/GYNECOLOGICAL Hx Genitourinary Disorders: No - PSYCHIATRIC Hx Substance Use: Yes (Cannabis) - SURGICAL HISTORY Hx Surgeries: Yes Other/Comment: RT.PERMACATH INSERTION 12/30. LT.AV SHUNT CREATION 02/17/16. UNDESCENDED TESTES LT. REMOVED DURING CHILDHOOD - ANESTHESIA Hx Anesthesia: Yes Hx Anesthesia Reactions: No Hx Malignant Hyperthermia: No Has any member of the family had a problem w/ anesthesia?: No Meds Allergies/Adverse Reactions: Allergies Allergy/AdvReac Type Severity Reaction Status Date / Time No Known Allergies Allergy Verified 07/16/16 20:10 - Medications Medications: Current Medications Amlodipine Besylate (Norvasc) 10 mg PO DAILY [facility] Last Admin: 07/18/16 09:37 Dose: 10 mg Clonidine HCl (Catapres) 0.1 mg PO BID [facility] Last Admin: 07/18/16 18:01 Dose: Not Given Gabapentin (Neurontin) 200 mg PO TID [facility] Last Admin: 07/18/16 18:00 Dose: 200 mg Heparin Sodium (Porcine) (Heparin) 5,000 units SC Q12 [facility] Last Admin: 07/18/16 12:12 Dose: Not Given Hydralazine HCl (Apresoline) 50 mg PO Q8 [facility] Last Admin: 07/18/16 13:09 Dose: 50 mg Insulin Aspart (Novolog) 0 unit SC ACHS [facility] PRN Reason: Protocol Last Admin: 07/18/16 16:41 Dose: 2 unit Insulin Glargine (Lantus) 15 unit SC HS [facility] Last Admin: 07/17/16 22:15 Dose: 15 u Lisinopril (Zestril) 10 mg PO DAILY [facility] Last Admin: 07/18/16 09:37 Dose: 10 mg Ondansetron HCl (Zofran Inj) 4 mg IVP Q8H PRN PRN Reason: NAUSEA/VOMITING Pantoprazole Sodium (Protonix Inj) 40 mg IVP DAILY [facility] Last Admin: 07/18/16 09:36 Dose: 40 mg Rosuvastatin Calcium (Crestor) 20 mg PO HS [facility] Last Admin: 07/17/16 22:13 Dose: 20 mg Sucralfate (Carafate Tab) 1 gm PO BID [facility] Last Admin: 07/18/16 18:00 Dose: 1 gm Vitamin B Complex/Vit C/Folic Acid (Nephro-Yomi) 1 tab PO DAILY [facility] Results - Vital Signs Recent Vital Signs: Last Vital Signs Temp 98.1 F 07/18/16 16:29 Pulse 79 07/18/16 16:29 Resp 20 07/18/16 16:29 BP 174/91 H 07/18/16 16:29 Pulse Ox 99 07/18/16 16:29 - Labs Result Diagrams: 07/18/16 11:27 07/18/16 17:17 Labs: Laboratory Results - last 24 hr 07/18/16 07/18/16 07/18/16 11:38 16:37 17:17 Potassium 2.9 L POC Glucose (mg/dL) 271 H 224 H
[2016-07-18] MEDS: (Lantus) Insulin Glargine, Recombinant SC SCH (22:13)
[2016-07-19] MEDS: (Novolog) Insulin Aspart, Recombinant 100 u/ml 10 ml vial SC SCH ×3 (08:41→14:26)
--- NOTE | 2016-07-19 08:41 | CP.PCM.PN ---
Subjective - Date & Time of Evaluation Date of Evaluation: 07/19/16 Time of Evaluation: 16:00 - Subjective Subjective: Dr. Chadwick note: Patient seen in room. He currently denies nausea, vomiting, diarrhea, constipation. He feels well over all. He is tolerating diet. Objective - Vital Signs/Intake and Output Vital Signs (last 24 hours): Temp Pulse Resp BP Pulse Ox 98 F 93 H 20 140/73 99 07/18/16 23:34 07/18/16 23:34 07/18/16 23:34 07/18/16 23:34 07/18/16 23:34 - Medications Medications: Current Medications Amlodipine Besylate (Norvasc) 10 mg PO DAILY [facility] Last Admin: 07/18/16 09:37 Dose: 10 mg Clonidine HCl (Catapres) 0.1 mg PO BID [facility] Last Admin: 07/18/16 18:01 Dose: Not Given Gabapentin (Neurontin) 200 mg PO TID [facility] Last Admin: 07/18/16 18:00 Dose: 200 mg Heparin Sodium (Porcine) (Heparin) 5,000 units SC Q12 [facility] Last Admin: 07/18/16 22:10 Dose: 5,000 units Hydralazine HCl (Apresoline) 50 mg PO Q8 [facility] Last Admin: 07/19/16 05:37 Dose: 50 mg Insulin Aspart (Novolog) 0 unit SC ACHS [facility] PRN Reason: Protocol Last Admin: 07/18/16 16:41 Dose: 2 unit Insulin Glargine (Lantus) 15 unit SC HS [facility] Last Admin: 07/18/16 22:13 Dose: 15 u Lisinopril (Zestril) 10 mg PO DAILY [facility] Last Admin: 07/18/16 09:37 Dose: 10 mg Ondansetron HCl (Zofran Inj) 4 mg IVP Q8H PRN PRN Reason: NAUSEA/VOMITING Pantoprazole Sodium (Protonix Inj) 40 mg IVP DAILY [facility] Last Admin: 07/18/16 09:36 Dose: 40 mg Rosuvastatin Calcium (Crestor) 20 mg PO HS [facility] Last Admin: 07/18/16 22:10 Dose: 20 mg Sucralfate (Carafate Tab) 1 gm PO BID [facility] Last Admin: 07/18/16 18:00 Dose: 1 gm Vitamin B Complex/Vit C/Folic Acid (Nephro-Yomi) 1 tab PO DAILY GADIEL - Labs Labs: 07/18/16 17:17 PT 10.9 SECONDS (9.7-12.2) 07/16/16 21:42 INR 1.0 07/16/16 21:42 APTT 28 SECONDS (21-34) 07/16/16 21:42 - Constitutional Appears: Non-toxic, No Acute Distress - Head Exam Head Exam: NORMAL INSPECTION - Eye Exam Eye Exam: Normal appearance Pupil Exam: NORMAL ACCOMODATION - ENT Exam ENT Exam: Normal Exam - Respiratory Exam Respiratory Exam: Clear to Ausculation Bilateral. absent: Rales, Rhonchi, Wheezes - Cardiovascular Exam Cardiovascular Exam: REGULAR RHYTHM, RRR, +S1, +S2. absent: Gallop, Rubs - GI/Abdominal Exam GI & Abdominal Exam: Soft, Normal Bowel Sounds. absent: Tenderness - Extremities Exam Extremities Exam: Normal Inspection - Back Exam Back Exam: NORMAL INSPECTION - Neurological Exam Neurological Exam: Alert - Psychiatric Exam Psychiatric exam: Normal Affect, Normal Mood - Skin Skin Exam: Normal Color Assessment and Plan - Assessment and Plan (Free Text) Assessment: Patient was discharged home.
[2016-07-19] MEDS ORDERED: Potassium Chloride 20 mEq ER Tab PO ONE ×2 (09:45→12:08)
[2016-07-19] MEDS: Multivitamin Vitamin B Complex (Nephro-Vite) Tab PO SCH ×2 (11:00→14:59)
--- NOTE | 2016-07-19 11:02 | CP.PCM.PN ---
Subjective - Date & Time of Evaluation Date of Evaluation: 07/19/16 Time of Evaluation: 10:00 - Subjective Subjective: Seen on dilalysis States he feels better today Objective - Vital Signs/Intake and Output Vital Signs (last 24 hours): Temp Pulse Resp BP Pulse Ox 97.9 F 90 20 138/79 98 07/19/16 09:53 07/19/16 09:53 07/19/16 09:53 07/19/16 09:53 07/19/16 09:53 - Medications Medications: Current Medications Amlodipine Besylate (Norvasc) 10 mg PO DAILY [facility] Last Admin: 07/18/16 09:37 Dose: 10 mg Clonidine HCl (Catapres) 0.1 mg PO BID [facility] Last Admin: 07/18/16 18:01 Dose: Not Given Gabapentin (Neurontin) 200 mg PO TID [facility] Last Admin: 07/18/16 18:00 Dose: 200 mg Heparin Sodium (Porcine) (Heparin) 5,000 units SC Q12 [facility] Last Admin: 07/18/16 22:10 Dose: 5,000 units Hydralazine HCl (Apresoline) 50 mg PO Q8 [facility] Last Admin: 07/19/16 05:37 Dose: 50 mg Insulin Aspart (Novolog) 0 unit SC ACHS [facility] PRN Reason: Protocol Last Admin: 07/19/16 08:41 Dose: 2 unit Insulin Glargine (Lantus) 15 unit SC HS [facility] Last Admin: 07/18/16 22:13 Dose: 15 u Lisinopril (Zestril) 10 mg PO DAILY [facility] Last Admin: 07/18/16 09:37 Dose: 10 mg Ondansetron HCl (Zofran Inj) 4 mg IVP Q8H PRN PRN Reason: NAUSEA/VOMITING Pantoprazole Sodium (Protonix Inj) 40 mg IVP DAILY [facility] Last Admin: 07/18/16 09:36 Dose: 40 mg Sucralfate (Carafate Tab) 1 gm PO BID [facility] Last Admin: 07/18/16 18:00 Dose: 1 gm Vitamin B Complex/Vit C/Folic Acid (Nephro-Yomi) 1 tab PO DAILY [facility] - Labs Labs: 07/18/16 17:17 PT 10.9 SECONDS (9.7-12.2) 07/16/16 21:42 INR 1.0 07/16/16 21:42 APTT 28 SECONDS (21-34) 07/16/16 21:42 - Respiratory Exam Additional comments: Lungs clear - Cardiovascular Exam Cardiovascular Exam: REGULAR RHYTHM - GI/Abdominal Exam GI & Abdominal Exam: Soft Additional comments: No tenderness - Extremities Exam Additional comments: No edema or cyanosis Assessment and Plan - Assessment and Plan (Free Text) Assessment: ESRD on maintenance HD HTN IDDM Abdominal pain Plan: K+ was supplemented & dialysis was given with $+ K+ bath Monitor K+ HD per schedule
[2016-07-19 11:12] LABS: BASO # 0.1 K/uL (0.0-0.2); BASO % 0.5 % (0.0-2.0); EOS # 0.4 K/uL (0.0-0.7); EOS % 3.3 % (0.0-4.0); HEMATOCRIT 35.8 % (35.0-51.0); LYMPH # 1.6 K/uL (1.0-4.3); LYMPH % 13.1 % (20.0-40.0); MEAN CELL VOLUME 87.9 fL (80.0-94.0); MEAN CORPUSCULAR HEMOGLOBIN 27.6 pg (27.0-31.0); MEAN CORPUSCULAR HGB CONC 31.4 g/dL (33.0-37.0); MEAN PLATELET VOLUME 10.6 fL (7.2-11.7); MONO # 1.1 K/uL (0.0-0.8); RED CELL DISTRIBUTION WIDTH 16.3 % (11.5-14.5); WHITE BLOOD COUNT 12.4 K/uL (4.8-10.8)
[2016-07-19 11:28] LABS: POTASSIUM 3.2 mmol/L (3.6-5.2)
[2016-07-19 11:30] LABS: BILIRUBIN,TOTAL 0.5 mg/dL (0.2-1.3)
[2016-07-19 11:31] LABS: PHOSPHOROUS 3.5 mg/dL (2.5-4.5); TOTAL PROTEIN 5.8 g/dL (6.3-8.3)
[2016-07-19 11:32] LABS: CALCIUM 7.1 mg/dl (8.6-10.4); MAGNESIUM 2.1 mg/dL (1.6-2.3)
[2016-07-19 11:37] LABS: ALB/GLOB RATIO 0.8 (1.0-2.1)
[2016-07-19 12:14] VITALS: O2SAT 99
[2016-07-19 14:31] VITALS: RESP 18; TEMP 97.7
[2016-07-19 14:55] VITALS: BP 129/93; PULSE 103
--- NOTE | 2016-07-20 10:00 | HP ---
A 36-year-old male admitted to the hospital with chronic renal failure, diabetes, diabetic gastropare sis with chief complaint of weakness, fatigue, tiredness, nausea, vomiting. The patient has a histor y of marijuana addiction. PHYSICAL EXAMINATION: GENERAL: Awake, alert, oriented. VITAL SIGNS: Temperature 98, pulse 90. HEENT: Within normal limits. NECK: Supple. CHEST: Symmetrical. HEART: Regular. ABDOMEN: Soft. EXTREMITIES: No edema. ASSESSMENT: The patient suffers from renal failure, diabetic gastroparesis. The patient on bed rest , supportive care. Lucero Mcgraw MD cc: [id number] TT: 07/17/2016 10:19:18 jn 07/20/2016 08:57:45
--- NOTE | 2016-07-21 08:54 | DS ---
The patient is improving. Abdominal pain is decreased. Nausea decreased. Will discharge the patien t today. The patient was admitted to the hospital for abdominal pain. The patient showed improveme nt. dialysis. Lucero Mcgraw MD cc: [id number] TT: 07/19/2016 19:06:24 dn 07/21/2016 07:53:09
== END 2016-07-19 16:22 | disposition home or self-care (01) | DRG 18 ==
LOC: C.ER 19:29 → C.5T 22:22 → OBSVTOIN 07-18 11:28
PROVIDERS: ADMIT Internal Medicine Pulmonary Disease; ATTEND Internal Medicine Pulmonary Disease
DX: E10.43 Type 1 diabetes mellitus with diabetic autonomic (poly)neuropathy (principal); N18.6 End stage renal disease; I13.2 Hypertensive heart and chronic kidney disease with heart failure and with stage 5 chronic kidney disease, or end stage renal disease; E10.22 Type 1 diabetes mellitus with diabetic chronic kidney disease; F11.10 Opioid abuse, uncomplicated; I50.9 Heart failure, unspecified; E87.6 Hypokalemia; K31.84 Gastroparesis; N25.81 Secondary hyperparathyroidism of renal origin; E83.39 Other disorders of phosphorus metabolism; F12.10 Cannabis abuse, uncomplicated; Z99.2 Dependence on renal dialysis; E78.00 Pure hypercholesterolemia, unspecified; D64.9 Anemia, unspecified; Z79.4 Long term (current) use of insulin

== ENCOUNTER 2016-08-14 13:33 | Emergency (ER) | payer MEDICARE, MEDICAID ==
[2016-08-14 13:35] VITALS: BMI 27.0
[2016-08-14 14:17] LABS: HEMOGLOBIN 12.1 g/dL (12.0-18.0); MEAN CORPUSCULAR HEMOGLOBIN 29.1 pg (27.0-31.0); MEAN CORPUSCULAR HGB CONC 31.8 g/dL (33.0-37.0); MEAN PLATELET VOLUME 8.6 fL (7.2-11.7); RBC 4.17 Mil/uL (4.40-5.90); WHITE BLOOD COUNT 10.4 K/uL (4.8-10.8)
[2016-08-14 14:22] LABS: MEAN CELL VOLUME 91.4 fL (80.0-94.0)
[2016-08-14 14:35] LABS: ALBUMIN 3.9 g/dL (3.5-5.0)
[2016-08-14 14:38] LABS: ALB/GLOB RATIO 0.8 (1.0-2.1)
[2016-08-14 14:39] LABS: CALCIUM 8.3 mg/dl (8.6-10.4)
[2016-08-14] MEDS ORDERED: DiphenhydrAMINE 50 mg/ml Inj ONE (15:46)
== END 2016-08-14 18:50 | disposition home or self-care (01) ==
LOC: C.ER 13:33
DX: R10.84 Generalized abdominal pain (principal); G89.29 Other chronic pain; F11.10 Opioid abuse, uncomplicated
CPT/HCPCS: 80053; 83690; 85027; 96374; 96375; 99284; J1200; J1885; J2405; J2765

== ENCOUNTER 2016-08-16 14:53 | Emergency (ER) | payer MEDICARE, MEDICAID ==
[2016-08-16 14:54] VITALS: BMI 27.0
--- NOTE | 2016-08-16 16:01 | C.PDOC ---
History Of Present Illness 36M c/o vomiting since yesterday. these symptoms are chronic and recurrent. he went to his dialysis treatment this morning and then came here after. he has not taken his BP meds today. Time Seen by Provider: 08/16/16 16:01 Chief Complaint (Nursing): Abdominal Pain Past Medical History Vital Signs: Last Vital Signs Temp 98.8 F 08/16/16 17:59 Pulse 88 08/16/16 17:59 Resp 16 08/16/16 17:59 BP 210/94 H 08/16/16 17:59 Pulse Ox 97 08/16/16 17:59 - Medical History PMH: CHF, Diabetes (type I), Gastritis, HTN, Hypercholesterolemia, Peripheral Edema, End Stage Renal Disease, Chronic Kidney Disease Denies: HIV - [facility] Procedures BYPASS LEFT BRACHIAL ARTERY TO UPPER ARM VEIN, OPEN APPROACH (02/17/16) EXCISION OF ASCENDING COLON, ENDO, DIAGN (12/19/15) EXCISION OF DUODENUM, ENDO, DIAGN (03/25/16) EXCISION OF LARGE INTESTINE, ENDO, DIAGN (05/06/16) EXCISION OF MIDDLE ESOPHAGUS, ENDO, DIAGN (03/25/16) EXCISION OF STOMACH, ENDO, DIAGN (06/03/16) EXCISION OF TRANSVERSE COLON, ENDO, DIAGN (05/06/16) INSERTION OF INFUSION DEV INTO SUP VENA CAVA, PERC APPROACH (12/19/15) PERFORMANCE OF URINARY FILTRATION, MULTIPLE (05/25/16) PERFORMANCE OF URINARY FILTRATION, SINGLE (06/21/16) REPOSITION LEFT BASILIC VEIN, OPEN APPROACH (05/25/16) ULTRASONOGRAPHY OF SUPERIOR VENA CAVA, GUIDANCE (12/19/15) Family History: States: Other Other Family History: nc - Social History Hx Tobacco Use: Yes (some days) Hx Alcohol Use: No Hx Substance Use: Yes (Cannabis) - Immunization History Hx Tetanus Toxoid Vaccination: Yes Hx Influenza Vaccination: Yes Hx Pneumococcal Vaccination: Yes Review Of Systems Constitutional: Negative for: Fever, Weakness Cardiovascular: Negative for: Chest Pain Respiratory: Negative for: Cough, Shortness of Breath Gastrointestinal: Positive for: Nausea, Vomiting, Abdominal Pain. Negative for : Diarrhea Genitourinary: Negative for: Dysuria Neurological: Negative for: Weakness, Numbness, Altered Mental Status Physical Exam - Physical Exam Appears: Non-toxic, No Acute Distress Skin: Warm, Dry, No Diaphoretic, No Pale, No Jaundice, No Mottled, No Cyanotic Head: Atraumatic Eye(s): bilateral: PERRL, EOMI Oral Mucosa: Moist Neck: Normal ROM Cardiovascular: Rhythm Regular Respiratory: Normal Breath Sounds, No Decreased Breath Sounds, No Accessory Muscle Use, No Rales, No Rhonchi, No Stridor, No Wheezing Gastrointestinal/Abdominal: Bowel Sounds, Soft, Tenderness (diffuse non-focal), No Distention, No Guarding, No Rebound Extremity: No Swelling Neurological/Psych: Oriented x3, Normal Motor, Other (no focal deficits) ED Course And Treatment - Laboratory Results Result Diagrams: 08/16/16 17:03 08/16/16 17:03 O2 Sat by Pulse Oximetry: 100 Medical Decision Making Medical Decision Making: ecg- nsr 85, t wave abn, similar to prior 06/30/161817 disc w nephro Dr Prateek Odom rec replete w 40meq po in ED. the pt did not have any vomiting in the ED. he tolerated po- juice and a sandwich. dc home in stable condition. Disposition - Disposition Disposition: HOME/ ROUTINE Disposition Time: 18:20 Condition: STABLE - Clinical Impression Clinical Impression: Vomiting
[2016-08-16 17:09] LABS: BASO # 0.1 K/uL (0.0-0.2); BASO % 0.8 % (0.0-2.0); EOS # 0.1 K/uL (0.0-0.7); EOS % 0.7 % (0.0-4.0); HEMOGLOBIN 11.6 g/dL (12.0-18.0); LYMPH # 1.4 K/uL (1.0-4.3); LYMPH % 10.4 % (20.0-40.0); MEAN CORPUSCULAR HEMOGLOBIN 28.3 pg (27.0-31.0); MEAN CORPUSCULAR HGB CONC 31.5 g/dL (33.0-37.0); MEAN PLATELET VOLUME 8.4 fL (7.2-11.7); MONO # 1.1 K/uL (0.0-0.8); MONO % 7.8 % (0.0-10.0); NEUT % 80.3 % (50.0-75.0); NRBC % 0.1 % (0.0-2.0); RBC 4.08 Mil/uL (4.40-5.90); RED CELL DISTRIBUTION WIDTH 17.1 % (11.5-14.5); WHITE BLOOD COUNT 13.7 K/uL (4.8-10.8)
[2016-08-16 17:16] LABS: ALBUMIN 3.1 g/dL (3.5-5.0)
[2016-08-16 17:20] LABS: ALB/GLOB RATIO 0.9 (1.0-2.1); CALCIUM 8.2 mg/dl (8.6-10.4)
[2016-08-16] MEDS ORDERED: Potassium Chloride 20 mEq ER Tab PO ONE (17:39)
[2016-08-16 18:00] VITALS: BP 210/94; PULSE 88; RESP 16; TEMP 98.8
[2016-08-16 18:21] VITALS: O2SAT 100
[2016-08-17] MEDS ORDERED: Potassium Chloride 20 mEq ER Tab PO SCH (10:00)
--- NOTE | 2016-08-21 19:25 | CARD ---
APPROVED REPORT EKG Measurement Heart [id number] OR 124P68 [id number] <Conclusion> Normal sinus rhythm T wave abnormality, consider lateral ischemia Abnormal ECG
== END 2016-08-16 19:30 | disposition home or self-care (01) ==
LOC: C.ER 14:53
DX: R11.10 Vomiting, unspecified (principal); I12.9 Hypertensive chronic kidney disease with stage 1 through stage 4 chronic kidney disease, or unspecified chronic kidney disease; N18.9 Chronic kidney disease, unspecified; E10.9 Type 1 diabetes mellitus without complications; E78.00 Pure hypercholesterolemia, unspecified
CPT/HCPCS: 80053; 83690; 85025; 96372; 99285; J2765

== ENCOUNTER 2016-08-26 14:35 | Observation (INO) | payer MEDICARE, MEDICAID ==
[2016-08-26 14:35] VITALS: BMI 27.0
--- NOTE | 2016-08-26 14:56 | C.PDOC ---
History Of Present Illness 36 yr old male with PMHx of ESRD is on HD, gastroparesis and hyperlipidemia, presents to the ER with complaints of abdominal pain and high blood pressure for few days. Patient also reports he has been vomiting and has diarrhea. Patient has been seen in ED frequently for similar complaints, last discharge was 2 days ago. Patient denies fever, chest pain, SOB, nausea, dysuria, weakness or numbness. Time Seen by Provider: 08/26/16 14:50 Chief Complaint (Nursing): Abdominal Pain History Per: Patient History/Exam Limitations: no limitations Onset/Duration Of Symptoms: Days (Few days) Past Medical History Reviewed: Historical Data, Nursing Documentation, Vital Signs Vital Signs: Last Vital Signs Temp 98.3 F 08/27/16 07:44 Pulse 95 H 08/27/16 07:44 Resp 20 08/27/16 07:44 BP 189/91 H 08/27/16 07:44 Pulse Ox 98 08/27/16 07:44 - Medical History PMH: CHF, Diabetes (type I), Gastritis, HTN, Hypercholesterolemia, Peripheral Edema, End Stage Renal Disease, Chronic Kidney Disease - [facility] Procedures BYPASS LEFT BRACHIAL ARTERY TO UPPER ARM VEIN, OPEN APPROACH (02/17/16) EXCISION OF ASCENDING COLON, ENDO, DIAGN (12/19/15) EXCISION OF DUODENUM, ENDO, DIAGN (03/25/16) EXCISION OF LARGE INTESTINE, ENDO, DIAGN (05/06/16) EXCISION OF MIDDLE ESOPHAGUS, ENDO, DIAGN (03/25/16) EXCISION OF STOMACH, ENDO, DIAGN (06/03/16) EXCISION OF TRANSVERSE COLON, ENDO, DIAGN (05/06/16) INSERTION OF INFUSION DEV INTO SUP VENA CAVA, PERC APPROACH (12/19/15) PERFORMANCE OF URINARY FILTRATION, MULTIPLE (05/25/16) PERFORMANCE OF URINARY FILTRATION, SINGLE (06/21/16) REPOSITION LEFT BASILIC VEIN, OPEN APPROACH (05/25/16) ULTRASONOGRAPHY OF SUPERIOR VENA CAVA, GUIDANCE (12/19/15) Family History: States: No Known Family Hx - Social History Hx Tobacco Use: Yes (some days) Hx Alcohol Use: No Hx Substance Use: Yes (Cannabis) - Immunization History Hx Tetanus Toxoid Vaccination: Yes Hx Influenza Vaccination: Yes Hx Pneumococcal Vaccination: Yes Review Of Systems Except As Marked, All Systems Reviewed And Found Negative. Constitutional: Positive for: Other ((+) High blood pressure ). Negative for: Fever Cardiovascular: Negative for: Chest Pain Respiratory: Negative for: Shortness of Breath Gastrointestinal: Positive for: Vomiting, Abdominal Pain, Diarrhea. Negative for: Nausea Genitourinary: Negative for: Dysuria Neurological: Negative for: Weakness, Numbness Physical Exam - Physical Exam Appears: Non-toxic, No Acute Distress Skin: Warm, No Rash Head: Atraumatic, Normacephalic Oral Mucosa: Moist Throat: Normal, No Exudate, No Drooling Neck: Normal, Normal ROM, Supple Chest: Symmetrical, No Tenderness Cardiovascular: Rhythm Regular, No Murmur Respiratory: Normal Breath Sounds, No Rales, No Rhonchi, No Stridor, No Wheezing Gastrointestinal/Abdominal: Soft, Tenderness (Mild, non focal, abdominal tenderness), No Guarding, No Rebound Extremity: Normal ROM, No Swelling Neurological/Psych: Oriented x3, Normal Speech, Normal Motor ED Course And Treatment - Laboratory Results Result Diagrams: 08/26/16 15:12 08/26/16 15:12 ECG: Interpreted By Me, Viewed By Me ECG Rhythm: Sinus Rhythm ECG Interpretation: Normal Interpretation Of ECG: Non specific T wave chanegs. No interval changes. Rate From EC (BPM ) O2 Sat by Pulse Oximetry: 100 (RA ) Pulse Ox Interpretation: Normal Medical Decision Making Medical Decision Making: abdominal pain- chronic consider gastropareisis, gastriits, constipation PLAN: * EKG * Troponin * CBC * CMP * Urinalysis * Toradol IVP * Zofran IVP 352: pt discussed with dr christensen, accepts for obs Disposition - Disposition Disposition: HOSPITALIZED Disposition Time: 15:53 Condition: STABLE - Clinical Impression Clinical Impression: Intractable abdominal pain - Scribe Statement The provider has reviewed the documentation as recorded by the Scribe Rani Parisi Provider Attestation: All medical record entries made by the Raquelibbrenden were at my direction and personally dictated by me. I have reviewed the chart and agree that the record accurately reflects my personal performance of the history, physical exam, medical decision making, and the department course for this patient. I have also personally directed, reviewed, and agree with the discharge instructions and disposition. Decision To Admit - Pt Status Changed To: Hospital Disposition Of: Observation - . Bed Request Type: Regular Admitting Physician: Lucero Christensen Patient Diagnosis: Intractable abdominal pain
[2016-08-26 15:16] LABS: BASO # 0.1 K/uL (0.0-0.2); BASO % 1.4 % (0.0-2.0); EOS # 0.1 K/uL (0.0-0.7); EOS % 0.8 % (0.0-4.0); HEMOGLOBIN 11.5 g/dL (12.0-18.0); LYMPH # 1.1 K/uL (1.0-4.3); LYMPH % 11.9 % (20.0-40.0); MEAN CELL VOLUME 92.8 fL (80.0-94.0); MEAN CORPUSCULAR HEMOGLOBIN 29.2 pg (27.0-31.0); MEAN CORPUSCULAR HGB CONC 31.5 g/dL (33.0-37.0); MEAN PLATELET VOLUME 8.4 fL (7.2-11.7); MONO # 0.7 K/uL (0.0-0.8); MONO % 7.9 % (0.0-10.0); NEUT # 7.3 K/uL (1.8-7.0); NRBC % 0.1 % (0.0-2.0); RBC 3.92 Mil/uL (4.40-5.90); RED CELL DISTRIBUTION WIDTH 16.9 % (11.5-14.5); WHITE BLOOD COUNT 9.4 K/uL (4.8-10.8)
[2016-08-26 15:23] LABS: INR 0.9; PROTHROMBIN TIME 10.6 SECONDS (9.7-12.2)
[2016-08-26 15:33] LABS: ALBUMIN 3.1 g/dL (3.5-5.0)
[2016-08-26 15:36] LABS: CALCIUM 8.2 mg/dl (8.6-10.4)
[2016-08-26 15:48] LABS: TROPONIN I 0.021 ng/mL (0.00-0.120)
[2016-08-26] MEDS: (Novolog) Insulin Aspart, Recombinant 100 u/ml 10 ml vial SC SCH (21:29)
[2016-08-26] MEDS ORDERED: (Novolog Mix 70/30) Insulin Aspart/Insulin Aspar 100 units/ml SC SCH (22:00)
[2016-08-27] MEDS: (Novolog) Insulin Aspart, Recombinant 100 u/ml 10 ml vial SC SCH ×4 (07:30→21:47)
[2016-08-27 08:00] LABS: BARBITURATES, UR NEGATIVE (NEGATIVE)
[2016-08-27 08:01] LABS: BENZODIAZEPINES, UR NEGATIVE (NEGATIVE)
[2016-08-27 08:03] LABS: OPIATES, UR NEGATIVE (NEGATIVE)
[2016-08-27 08:04] LABS: PHENCYCLIDINE, UR NEGATIVE (NEGATIVE)
[2016-08-27 08:23] LABS: SQUAMOUS EPITHIAL 1 /hpf (0-5); URINE BACTERIA RARE (<OCC); URINE BILIRUBIN NEGATIVE (NEGATIVE); URINE BLOOD NEGATIVE (NEGATIVE); URINE CLARITY Hazy (Clear); URINE COLOR Yellow (YELLOW); URINE GLUCOSE (UA) 3+ mg/dL (Normal); URINE LEUKOCYTE ESTERASE NEG Leu/uL (Negative); URINE NITRATE NEGATIVE (NEGATIVE); URINE PROTEIN 3+ mg/dL (NEGATIVE); URINE UROBILINOGEN NORMAL mg/dL (0.2-1.0)
[2016-08-27] MEDS: Multivitamin Vitamin B Complex (Nephro-Vite) Tab PO SCH (10:10)
[2016-08-27] MEDS: (Novolog Mix 70/30) Insulin Aspart/Insulin Aspar 100 units/ml SC SCH ×2 (10:12→17:46)
--- NOTE | 2016-08-27 11:05 | CARD ---
APPROVED REPORT EKG Measurement Heart [id number] MI 130P61 [id number] <Conclusion> Normal sinus rhythm Nonspecific T wave abnormality Prolonged QT Abnormal ECG
--- NOTE | 2016-08-27 12:04 | CP.PCM.CON ---
History of Present Illness - History of Present Illness History of Present Illness: 35 y/o male with ESRD on HD, IDDM with comlications, HTN is admitted for co abdominal pain, N&V Pts dialysis schedule is MWF via Lt arm AV[facility]. He had dialysis on Tue. Past Patient History - Infectious Disease Hx of Infectious Diseases: None - Past Medical History & Family History Past Medical History?: Yes - Past Social History Smoking Status: Light Smoker < 10 Cigarettes Daily - CARDIAC Hx Congestive Heart Failure: Yes Hx Hypercholesterolemia: Yes Hx Hypertension: Yes Hx Peripheral Edema: Yes - PULMONARY Hx Respiratory Disorders: No - NEUROLOGICAL Hx Neurological Disorder: No Other/Comment: Bilateral leg neuropathy - HEENT Hx HEENT Problems: Yes Hx Cataracts: Yes Other/Comment: cataract surgery [facility] 10 years ago - RENAL Hx Chronic Kidney Disease: Yes - ENDOCRINE/METABOLIC Hx Endocrine Disorders: Yes Hx Diabetes Mellitus Type 2: Yes - HEMATOLOGICAL/ONCOLOGICAL Hx Human Immunodeficiency Virus (HIV): No - INTEGUMENTARY Hx Dermatological Problems: No - MUSCULOSKELETAL/RHEUMATOLOGICAL Hx Musculoskeletal Disorders: Yes Hx Falls: Yes - GASTROINTESTINAL Hx Gastritis: Yes - GENITOURINARY/GYNECOLOGICAL Hx Genitourinary Disorders: No - PSYCHIATRIC Hx Substance Use: Yes (Cannabis) - SURGICAL HISTORY Hx Surgeries: Yes Other/Comment: RT.PERMACATH INSERTION 12/30. LT.AV SHUNT CREATION 02/17/16. UNDESCENDED TESTES LT. REMOVED DURING CHILDHOOD - ANESTHESIA Hx Anesthesia: Yes Hx Anesthesia Reactions: No Hx Malignant Hyperthermia: No Meds Allergies/Adverse Reactions: Allergies Allergy/AdvReac Type Severity Reaction Status Date / Time No Known Allergies Allergy Verified 08/26/16 14:46 - Medications Medications: Current Medications Amlodipine Besylate (Norvasc) 10 mg PO DAILY [facility] Last Admin: 08/27/16 10:09 Dose: 10 mg Gabapentin (Neurontin) 100 mg PO TID [facility] Hydralazine HCl (Apresoline) 50 mg PO Q8 [facility] Last Admin: 08/27/16 05:30 Dose: 50 mg Insulin Aspart (Novolog Mix 70/30 (70/30 Units/Ml)) 25 units SC BID [facility] Last Admin: 08/27/16 10:12 Dose: 25 units Insulin Aspart (Novolog) 0 unit SC ACHS [facility] PRN Reason: Protocol Last Admin: 08/27/16 07:30 Dose: 2 unit Ketorolac Tromethamine (Toradol) 30 mg IVP Q6 PRN PRN Reason: Pain, moderate (4-7) Last Admin: 08/27/16 10:17 Dose: 30 mg Lisinopril (Zestril) 10 mg PO DAILY [facility] Last Admin: 08/27/16 10:09 Dose: 10 mg Metoclopramide HCl (Reglan) 5 mg PO TID PRN PRN Reason: Nausea/Vomiting Ondansetron HCl (Zofran Inj) 4 mg IVP Q4 PRN PRN Reason: Nausea/Vomiting Last Admin: 08/27/16 10:16 Dose: 4 mg Pantoprazole Sodium (Protonix Inj) 40 mg IVP DAILY [facility] Last Admin: 08/27/16 10:09 Dose: 40 mg Rosuvastatin Calcium (Crestor) 10 mg PO [facility] Sucralfate (Carafate Tab) 1 gm PO BID [facility] Last Admin: 08/27/16 10:09 Dose: 1 gm Vitamin B Complex/Vit C/Folic Acid (Nephro-Yomi) 1 tab PO DAILY [facility] Last Admin: 08/27/16 10:10 Dose: 1 tab Physical Exam - Constitutional Appears: No Acute Distress - Head Exam Head Exam: ATRAUMATIC, NORMOCEPHALIC - Eye Exam Additional comments: Pt is blind - ENT Exam ENT Exam: Mucous Membranes Moist - Respiratory Exam Additional comments: Lungs clear - Cardiovascular Exam Cardiovascular Exam: REGULAR RHYTHM - GI/Abdominal Exam GI & Abdominal Exam: Soft Additional comments: Mild diffuse tenderness - Extremities Exam Additional comments: No edema or syanosis Results - Vital Signs Recent Vital Signs: Last Vital Signs Temp 98.3 F 08/27/16 07:44 Pulse 95 H 08/27/16 07:44 Resp 20 08/27/16 07:44 BP 189/91 H 08/27/16 07:44 Pulse Ox 100 08/27/16 09:17 - Labs Result Diagrams: 08/26/16 15:12 08/26/16 15:12 Labs: Laboratory Results - last 24 hr 08/26/16 08/27/16 08/27/16 21:10 07:12 07:34 POC Glucose (mg/dL) 169 H 206 H Urine Color Yellow Urine Clarity Hazy Urine pH 7.0 Ur Specific [place] 1.029 Urine Protein 3+ H Urine Glucose (UA) 3+ H Urine Ketones 1+ H Urine Blood Negative Urine Nitrate Negative Urine Bilirubin Negative Urine Urobilinogen Normal Ur Leukocyte Esterase Neg Urine WBC (Auto) 7 H Urine RBC (Auto) 3 Ur Squamous Epith Cells 1 Urine Bacteria Rare Hyaline Casts 6-10 H Urine Opiates Screen Urine Methadone Screen Ur Barbiturates Screen Ur Phencyclidine Scrn Ur Amphetamines Screen U Benzodiazepines Scrn U Oth Cocaine Metabols U Cannabinoids Screen 08/27/16 08/27/16 07:34 11:08 POC Glucose (mg/dL) 212 H Urine Color Urine Clarity Urine pH Ur Specific [place] Urine Protein Urine Glucose (UA) Urine Ketones Urine Blood Urine Nitrate Urine Bilirubin Urine Urobilinogen Ur Leukocyte Esterase Urine WBC (Auto) Urine RBC (Auto) Ur Squamous Epith Cells Urine Bacteria Hyaline Casts Urine Opiates Screen Negative Urine Methadone Screen Negative Ur Barbiturates Screen Negative Ur Phencyclidine Scrn Negative Ur Amphetamines Screen Negative U Benzodiazepines Scrn Negative U Oth Cocaine Metabols Negative U Cannabinoids Screen Positive Assessment & Plan - Assessment and Plan (Free Text) Assessment: ESRD IDDM with retinopathy, gastroparesis HTN Plan: Will continue HD per scedule Orders entered Monitor BP
[2016-08-27 15:23] VITALS: TEMP 98.1
--- NOTE | 2016-08-27 16:30 | CP.PCM.PN ---
Subjective - Date & Time of Evaluation Date of Evaluation: 08/27/16 Time of Evaluation: 16:25 - Subjective Subjective: CC: abd, N/v 36 year old male with past medical history of DM, ESRD on HD MWF, gastroparesis , HLD, CHF is admitted to hospital for suprapubic abd pain, N/V ongoing for about 2-3 days. Patient was recently discharged from hospital about 10 days ago for similar symptoms. Patient states that he has vomited about 3 times daily. He states that he is not able to tolerate any PO intake. Patient also complains of suprapubic abd pain that does not radiate anywhere else. patient denies having any F/C, CP, SOB, D/C, dysuria or increased urinary frequency. Patient regularly smokes marijuana about 2 blunts daily. PMHx: stated above Social: smokes cigarettes for about 20 years, daily marijuana use. Lives with his mother Sx: 1 testicle removed as kid NKDA Meds: See MAR Objective - Vital Signs/Intake and Output Vital Signs (last 24 hours): Temp Pulse Resp BP Pulse Ox 98.1 F 89 17 101/60 97 08/27/16 13:40 08/27/16 15:30 08/27/16 15:30 08/27/16 15:30 08/27/16 15:30 Intake and Output: 08/27/16 08/27/16 06:59 18:59 Intake Total 260 Output Total 100 Balance 160 - Medications Medications: Current Medications Amlodipine Besylate (Norvasc) 10 mg PO DAILY [facility] Last Admin: 08/27/16 10:09 Dose: 10 mg Gabapentin (Neurontin) 100 mg PO TID [facility] Last Admin: 08/27/16 13:19 Dose: 100 mg Heparin Sodium (Porcine) (Heparin) 5,000 units SC Q12H [facility] Hydralazine HCl (Apresoline) 50 mg PO Q8 [facility] Last Admin: 08/27/16 13:19 Dose: 50 mg Insulin Aspart (Novolog Mix 70/30 (70/30 Units/Ml)) 25 units SC BID [facility] Last Admin: 08/27/16 10:12 Dose: 25 units Insulin Aspart (Novolog) 0 unit SC ACHS [facility] PRN Reason: Protocol Last Admin: 08/27/16 11:30 Dose: 2 unit Ketorolac Tromethamine (Toradol) 30 mg IVP Q6 PRN PRN Reason: Pain, moderate (4-7) Last Admin: 08/27/16 10:17 Dose: 30 mg Lisinopril (Zestril) 10 mg PO DAILY [facility] Last Admin: 08/27/16 10:09 Dose: 10 mg Metoclopramide HCl (Reglan) 5 mg PO TID PRN PRN Reason: Nausea/Vomiting Ondansetron HCl (Zofran Inj) 4 mg IVP Q4 PRN PRN Reason: Nausea/Vomiting Last Admin: 08/27/16 10:16 Dose: 4 mg Pantoprazole Sodium (Protonix Inj) 40 mg IVP DAILY [facility] Last Admin: 08/27/16 10:09 Dose: 40 mg Rosuvastatin Calcium (Crestor) 10 mg PO [facility] Sucralfate (Carafate Tab) 1 gm PO BID [facility] Last Admin: 08/27/16 10:09 Dose: 1 gm Vitamin B Complex/Vit C/Folic Acid (Nephro-Linda) 1 tab PO DAILY [facility] Last Admin: 08/27/16 10:10 Dose: 1 tab - Labs Labs: PT 10.6 SECONDS (9.7-12.2) 08/26/16 15:12 INR 0.9 08/26/16 15:12 APTT 32 SECONDS (21-34) 08/26/16 15:12 - Constitutional Appears: Non-toxic, No Acute Distress - ENT Exam ENT Exam: Mucous Membranes Moist - Respiratory Exam Respiratory Exam: Clear to Ausculation Bilateral. absent: Accessory Muscle Use , Rales, Rhonchi, Wheezes, Respiratory Distress - Cardiovascular Exam Cardiovascular Exam: REGULAR RHYTHM, +S1, +S2 - GI/Abdominal Exam GI & Abdominal Exam: Soft, Normal Bowel Sounds. absent: Firm, Rigid, Tenderness , Organomegaly - Extremities Exam Extremities Exam: absent: Pedal Edema, Tenderness - Neurological Exam Neurological Exam: Alert, Awake, Oriented x3 - Psychiatric Exam Psychiatric exam: Normal Affect, Normal Mood - Skin Skin Exam: Dry, Intact, Normal Color, Warm Assessment and Plan - Assessment and Plan (Free Text) Assessment: 36 year old male with past medical history of DM, ESRD on HD MWF, gastroparesis , HLD, is admitted for intractable abd pain, N/V. Intractable abd pain, N/V - Likely 2/2 gastroparesis vs. cyclic marijuana syndrome - Patient is started on home medication reglan. Also placed on Zofran prn - Patient started on CLD and will advance as tolerated - [facility]ch[facility] referral requested - Carafate, protonix DM - HGBA1c is 6.9 in 04/2016 - ISS - Accuchecks - Novolog 70/30 25 units BID ESRD on HD MWF - will continue HD while pt is in hospital. Dialyzed on Tuesday - Continue Nephro-linda HLD - Continue Crestor HTN - Continue Hydralazine, lisinopril - will continue to monitor vital sigsn Prophylaxis - Protonix - Heparin Orders and management per Dr. Chadwick
[2016-08-27] MEDS ORDERED: Home Med 1 UNIT (Atorvastatin [Lipitor] 40 MG) PO SCH (22:00)
[2016-08-28] MEDS: (Novolog) Insulin Aspart, Recombinant 100 u/ml 10 ml vial SC SCH ×2 (08:03→12:00)
[2016-08-28] MEDS: (Novolog Mix 70/30) Insulin Aspart/Insulin Aspar 100 units/ml SC SCH (10:17)
[2016-08-28] MEDS: Multivitamin Vitamin B Complex (Nephro-Vite) Tab PO SCH (10:22)
[2016-08-28 11:55] VITALS: BP 159/85; PULSE 98; RESP 20; O2SAT 100
--- NOTE | 2016-08-31 17:07 | HP ---
HISTORY OF PRESENT ILLNESS: Mr. Haynes is a 36-year-old male ------ chief complaint of progressive weakness, fatigue, nausea, and vomiting. Patient came to ER advised admission. The patient has diabetes, hypertension, chronic kidney disease, and chronic marijuana abuse. The patient ------. PHYSICAL EXAMINATION GENERAL: The patient is awake, alert and oriented. ------. HEENT: Within normal limits. NECK: Supple. Significant ------. ABDOMEN: Soft. EXTREMITIES: No edema. IMPRESSION: 1. Chronic kidney disease. 2. Gastritis. 3. Chronic marijuana abuse. 4. ------. Lucero Chadwick MD
== END 2016-08-28 14:21 | disposition home or self-care (01) ==
LOC: C.ER 14:35 → C.9E 15:52 → C.3T 17:16
PROVIDERS: ADMIT Internal Medicine Pulmonary Disease; ATTEND Internal Medicine Pulmonary Disease
DX: E10.43 Type 1 diabetes mellitus with diabetic autonomic (poly)neuropathy (principal); K31.84 Gastroparesis; R10.9 Unspecified abdominal pain; R11.10 Vomiting, unspecified; R19.7 Diarrhea, unspecified; E10.22 Type 1 diabetes mellitus with diabetic chronic kidney disease; I13.2 Hypertensive heart and chronic kidney disease with heart failure and with stage 5 chronic kidney disease, or end stage renal disease; I50.9 Heart failure, unspecified; N18.6 End stage renal disease; Z99.2 Dependence on renal dialysis; F17.210 Nicotine dependence, cigarettes, uncomplicated; R60.0 Localized edema; E10.319 Type 1 diabetes mellitus with unspecified diabetic retinopathy without macular edema; Z79.4 Long term (current) use of insulin; F12.90 Cannabis use, unspecified, uncomplicated
CPT/HCPCS: 80053; 81001; 82948; 83690; 84484; 85025; 85610; 85730; 93005; 96374; 97116; 97162; 99283; C9113; G0257; G0378; G0480; G8978; G8979; J1644; J1885; J2405

== ENCOUNTER 2016-09-07 18:21 | Inpatient (IN) | payer MEDICARE, MEDICAID ==
[2016-09-07 18:22] VITALS: BMI 27.0
[2016-09-07] MEDS ORDERED: Sodium Chloride 0.9% 1,000 ML IV ONE (19:20)
--- NOTE | 2016-09-07 19:20 | C.PDOC ---
History Of Present Illness 36 y/o male presents to the ED with complaints of nausea, vomiting and elevated blood pressure. Pt history of ESRD on dialysis, gastroparesis. Pt seen here multiple times in the past with similar complaints. Pt states he hasn't been able to tolerate PO for the past couple days. Denies, fever, chills, chest pain , SOB or any other complaints. Last had dialysis yesterday. Time Seen by Provider: 09/07/16 19:20 Chief Complaint (Nursing): Abdominal Pain History Per: Patient History/Exam Limitations: no limitations Onset/Duration Of Symptoms: Days Current Symptoms Are (Timing): Still Present Severity: Moderate Radiation Of Pain To:: None Associated Symptoms: Nausea, Vomiting. denies: Fever, Chills, Diarrhea, Chest Pain Exacerbating Factors: None Alleviating Factors: None Recent travel outside of the [place]: No Past Medical History Reviewed: Historical Data, Nursing Documentation, Vital Signs Vital Signs: Last Vital Signs Temp 98.2 F 09/07/16 18:42 Pulse 90 09/07/16 22:32 Resp 16 09/07/16 22:32 BP 183/105 H 09/07/16 22:32 Pulse Ox 97 09/07/16 22:32 - Medical History PMH: CHF, Diabetes (type I), Gastritis, HTN, Hypercholesterolemia, Peripheral Edema, End Stage Renal Disease, Chronic Kidney Disease - [facility] Procedures BYPASS LEFT BRACHIAL ARTERY TO UPPER ARM VEIN, OPEN APPROACH (02/17/16) EXCISION OF ASCENDING COLON, ENDO, DIAGN (12/19/15) EXCISION OF DUODENUM, ENDO, DIAGN (03/25/16) EXCISION OF LARGE INTESTINE, ENDO, DIAGN (05/06/16) EXCISION OF MIDDLE ESOPHAGUS, ENDO, DIAGN (03/25/16) EXCISION OF STOMACH, ENDO, DIAGN (06/03/16) EXCISION OF TRANSVERSE COLON, ENDO, DIAGN (05/06/16) INSERTION OF INFUSION DEV INTO SUP VENA CAVA, PERC APPROACH (12/19/15) PERFORMANCE OF URINARY FILTRATION, MULTIPLE (05/25/16) PERFORMANCE OF URINARY FILTRATION, SINGLE (06/21/16) REPOSITION LEFT BASILIC VEIN, OPEN APPROACH (05/25/16) ULTRASONOGRAPHY OF SUPERIOR VENA CAVA, GUIDANCE (12/19/15) Family History: States: Unknown Family Hx - Social History Hx Tobacco Use: Yes (some days) Hx Alcohol Use: No Hx Substance Use: Yes (Cannabis) - Immunization History Hx Tetanus Toxoid Vaccination: Yes Hx Influenza Vaccination: Yes Hx Pneumococcal Vaccination: Yes Review Of Systems Constitutional: Negative for: Fever, Chills Cardiovascular: Negative for: Chest Pain Respiratory: Negative for: Shortness of Breath Gastrointestinal: Positive for: Nausea, Vomiting. Negative for: Diarrhea Neurological: Negative for: Headache Physical Exam - Physical Exam Appears: Non-toxic, No Acute Distress Skin: Warm, Dry, No Rash Head: Atraumatic, Normacephalic Oral Mucosa: Moist Neck: Supple Chest: Symmetrical Cardiovascular: Rhythm Regular, No Murmur Respiratory: No Rales, No Rhonchi, No Wheezing Gastrointestinal/Abdominal: Bowel Sounds (normal), Soft, No Tenderness Extremity: No Pedal Edema, Other (left arm AV shunt with good thrill and bruit) Neurological/Psych: Oriented x3, Normal Speech, Normal Cognition ED Course And Treatment - Laboratory Results Result Diagrams: 09/07/16 19:39 09/07/16 19:39 ECG: Interpreted By Me, Viewed By Me O2 Sat by Pulse Oximetry: 97 (room air) Pulse Ox Interpretation: Normal - Radiology CXR: Interpreted by Me, Viewed By Me CXR Interpretation: No: Infiltrates, Fracture, Pnemothorax - Other Rad obstr X-Ray: Interpreted by Me, Viewed By Me Interpretation: no obstr, or free air Progress Note: Plan: labs, UA, IV fluids, pepcid, zofran Disposition Discussed With : Lucero Chadwick Comment: accepted the pt on his service and took over the care at 10:46 PM Counseled Patient/Family Regarding: Studies Performed, Diagnosis - Disposition Disposition: HOSPITALIZED Disposition Time: 19:20 Condition: FAIR - POA Present On Arrival: Poor Glycemic Control - Clinical Impression Clinical Impression: Gastroparesis due to DM, ESRD (end stage renal disease) on dialysis, Nausea and vomiting - Scribe Statement The provider has reviewed the documentation as recorded by the Js Cheney Provider Attestation: All medical record entries made by the Raquelibbrenden were at my direction and personally dictated by me. I have reviewed the chart and agree that the record accurately reflects my personal performance of the history, physical exam, medical decision making, and the department course for this patient. I have also personally directed, reviewed, and agree with the discharge instructions and disposition. Decision To Admit - Pt Status Changed To: Hospital Disposition Of: Observation - . Bed Request Type: Regular Admitting Physician: Lucero Chadwick Patient Diagnosis: Gastroparesis due to DM, ESRD (end stage renal disease) on dialysis, Nausea and vomiting, Intractable abdominal pain
[2016-09-07 19:43] LABS: BASO # 0.1 K/uL (0.0-0.2); BASO % 0.8 % (0.0-2.0); EOS # 0.1 K/uL (0.0-0.7); EOS % 1.3 % (0.0-4.0); HEMATOCRIT 39.2 % (35.0-51.0); LYMPH % 9.9 % (20.0-40.0); MEAN CELL VOLUME 92.8 fL (80.0-94.0); MEAN CORPUSCULAR HEMOGLOBIN 30.3 pg (27.0-31.0); MEAN CORPUSCULAR HGB CONC 32.6 g/dL (33.0-37.0); MEAN PLATELET VOLUME 8.6 fL (7.2-11.7); MONO # 1.3 K/uL (0.0-0.8); MONO % 12.6 % (0.0-10.0); PLATELET COUNT 322 K/uL (130-400); RED CELL DISTRIBUTION WIDTH 16.6 % (11.5-14.5); WHITE BLOOD COUNT 10.2 K/uL (4.8-10.8)
[2016-09-07 19:56] LABS: POTASSIUM 5.3 mmol/L (3.6-5.2); SODIUM 137 mmol/L (132-148)
[2016-09-07 19:58] LABS: ALKALINE PHOSPHATASE 90 U/L (38-126); ALT/SGPT 32 U/L (21-72); AST/SGOT 43 U/L (17-59); BILIRUBIN,TOTAL 0.9 mg/dL (0.2-1.3); BLOOD UREA NITROGEN 37 mg/dL (9-20); CARBON DIOXIDE 30 mmol/L (22-30); GFR AFRICAN-AMERICAN 13; GLUCOSE,RANDOM 224 mg/dL (75-110)
[2016-09-07 19:59] LABS: CALCIUM 8.2 mg/dl (8.6-10.4)
[2016-09-07 20:01] LABS: CHLORIDE 91 mmol/L (98-107)
[2016-09-07] MEDS ORDERED: Morphine 4 MG/ML VIAL ONE (22:06)
[2016-09-07 22:57] LABS: EOSINOPHIL 3 % (0-4); LARGE PLATELETS PRESENT; NEUTROPHIL 76 % (50-75); SMUDGE CELLS PRESENT; TOTAL CELLS COUNTED 100
[2016-09-07] MEDS ORDERED: hydrALAZINE 12.5 mg Tab PO STA (23:25)
[2016-09-08] MEDS: (Novolin R) Insulin Human Regular 100 units/ml vial SC SCH ×3 (09:22→18:35)
--- NOTE | 2016-09-08 10:18 | RAD ---
PROCEDURE: Radiographs of the chest and abdomen (obstructive series) HISTORY: abd pain, gastroparesis COMPARISON: CT abdomen and pelvis performed 02/25/16, obstructive series performed 07/16/16 FINDINGS: CHEST: The cardiomediastinal silhouette appears within normal limits. No focal consolidation, significant pleural effusion, or definite pneumothorax identified. 15 mm nodular density noted at the right lung base, favored to represent nipple shadow. Please note that chest x-ray has limited sensitivity for the detection of pulmonary masses. ABDOMEN AND PELVIS: Nonobstructive bowel gas pattern. No definite free air. Mild to moderate constipation. Vascular calcifications. Pelvic calcifications, likely phleboliths. Degenerative changes. Osseous demineralization. IMPRESSION: 15 mm nodular density noted at the right lung base, favored to represent nipple shadow. Mild to moderate constipation.
--- NOTE | 2016-09-08 11:34 | CP.PCM.PN ---
Subjective - Date & Time of Evaluation Date of Evaluation: 09/08/16 Time of Evaluation: 11:30 - Subjective Subjective: PGY2 progress note for Dr. Chadwick 36 year old male with past medical history of DM, ESRD on HD MWF, gastroparesis , HLD, CHF is admitted to hospital for suprapubic abd pain, N/V that began yesterday. Patient has been admitted multiple times for similar complaint. Pt is seen and examined at bedside. No acute events overnight. Patient is seen walking around the hallway with walker. Patient continues to c/o suprapubic abd pain. denies having any episodes of vomting this morning. patient denies having any nausea right now. Denies C/D, SP, SOB. Patient states that he would like to try solid foods. 12 point ROS are negative except for the above mentioned. PMHx: stated above Social: smokes cigarettes for about 20 years, daily marijuana use. Lives with his mother Sx: 1 testicle removed as kid NKDA Meds: See MAR Objective - Vital Signs/Intake and Output Vital Signs (last 24 hours): Temp Pulse Resp BP Pulse Ox 98.7 F 96 H 20 161/94 H 98 09/08/16 09:00 09/08/16 09:00 09/08/16 09:00 09/08/16 09:00 09/08/16 09:00 - Medications Medications: Current Medications Amlodipine Besylate (Norvasc) 10 mg PO DAILY [facility] Last Admin: 09/08/16 09:31 Dose: 10 mg Gabapentin (Neurontin) 800 mg PO TID [facility] Hydralazine HCl (Apresoline) 50 mg PO Q8 [facility] Last Admin: 09/08/16 07:00 Dose: 50 mg Insulin Human Regular (Novolin R) 0 unit SC ACHS [facility] PRN Reason: Protocol Last Admin: 09/08/16 09:22 Dose: 2 unit Ketorolac Tromethamine (Toradol) 15 mg IVP Q8H PRN PRN Reason: Pain, moderate (4-7) Lisinopril (Zestril) 10 mg PO DAILY [facility] Last Admin: 09/08/16 09:24 Dose: 10 mg Metoclopramide HCl (Reglan) 5 mg PO TID PRN PRN Reason: Nausea/Vomiting Ondansetron HCl (Zofran Inj) 4 mg IVP Q6 PRN PRN Reason: Nausea/Vomiting Last Admin: 09/08/16 05:01 Dose: 4 mg Pantoprazole Sodium (Protonix Inj) 40 mg IVP DAILY [facility] Last Admin: 09/08/16 09:23 Dose: 40 mg Rosuvastatin Calcium (Crestor) 10 mg PO HS [facility] - Constitutional Appears: Non-toxic, No Acute Distress - Head Exam Head Exam: ATRAUMATIC - Eye Exam Eye Exam: EOMI - ENT Exam ENT Exam: Mucous Membranes Moist - Respiratory Exam Respiratory Exam: Clear to Ausculation Bilateral. absent: Accessory Muscle Use , Rales, Rhonchi, Wheezes, Respiratory Distress - Cardiovascular Exam Cardiovascular Exam: REGULAR RHYTHM, +S1, +S2. absent: Gallop, Rubs, Murmur - GI/Abdominal Exam GI & Abdominal Exam: Soft, Normal Bowel Sounds. absent: Distended, Firm, Guarding, Rigid, Tenderness, Organomegaly - Extremities Exam Extremities Exam: absent: Pedal Edema, Tenderness - Neurological Exam Neurological Exam: Alert, Awake, Oriented x3 - Psychiatric Exam Psychiatric exam: Normal Affect, Normal Mood - Skin Skin Exam: Dry, Intact, Normal Color, Warm Assessment and Plan - Assessment and Plan (Free Text) Assessment: 36 year old male with past medical history of DM, ESRD on HD MWF, gastroparesis , HLD, is admitted for intractable abd pain, N/V. Intractable abd pain, N/V - Likely 2/2 gastroparesis vs. cyclic marijuana syndrome - Abd obstructive series shows mild to moderate constipation - Patient is started on home medication reglan. Also placed on Zofran prn - Patient is advanced to soft diet this morning as per patient's request - Stake Setter referral requested - Carafate, protonix - toradol prn for pain. Dose adjusted for renal clearance - Zofran prn for nausea - Will check UDS DM - HGBA1c is 6.9 in 04/2016 - ISS - Accuchecks - Patient is started on home Novolin 70/30 25 units BID Diabetic neuropathy - Continue gabapentin 800 mg po TID ESRD on HD MWF - will continue HD while pt is in hospital. Dialyzed on Tuesday - Continue Nephro-linda - Nephrology, Dr. Quezada is consulted HLD - Continue Crestor. Dose adjusted for renal clearance HTN - Continue Hydralazine, lisinopril, Norvasc - will continue to monitor vital signs Prophylaxis - Protonix - Heparin Orders and management per Dr. Chadwick Patient is stable for discharge per Dr. Chadwick Patient is to follow up with PMD, Dr. Chadwick upon discharge. Patient is discharged on the following medications: Amlodipine 10 mg po qd, Lipitor 40 mg po HS, Gabapentin 800 mg PO TID, Hydralazine 50 mg po Q8, Novolog 25 units SC BID, Lisinopril 10 mg po qd, Reglan 5 mg po TID, Zofran 4 mg PO Q8 prn, Protonix 40 mg po qd, Caraftae 1 gm po qd, Nephro-Linda 1 tab po qd. Discussed the risks of illicit substance abuse and recommended cessation. Patient to return to ED upon discharge.
[2016-09-08] MEDS ORDERED: (Novolog Mix 70/30) Insulin Aspart/Insulin Aspar 100 units/ml SC SCH (16:30)
--- NOTE | 2016-09-08 16:43 | CP.PCM.CON ---
History of Present Illness - History of Present Illness History of Present Illness: 36 y/o male with ESRD on maintenance HD, MWF, HTN DM with complications, is admitted for c/o abdominal pain Renal consult is requested for Mx of ESRD Past Patient History - Infectious Disease Hx of Infectious Diseases: None - Past Medical History & Family History Past Medical History?: Yes - Past Social History Smoking Status: Light Smoker < 10 Cigarettes Daily - CARDIAC Hx Cardiac Disorders: Yes Hx Congestive Heart Failure: Yes Hx Hypercholesterolemia: Yes Hx Hypertension: Yes Hx Peripheral Edema: Yes - PULMONARY Hx Respiratory Disorders: No - NEUROLOGICAL Hx Neurological Disorder: Yes Other/Comment: Bilateral leg neuropathy - HEENT Hx HEENT Problems: Yes Hx Cataracts: Yes Other/Comment: cataract surgery [facility] 10 years ago - RENAL Date of Last Dialysis Treatment: 09/06/16 - ENDOCRINE/METABOLIC Hx Endocrine Disorders: Yes Hx Diabetes Mellitus Type 2: Yes - HEMATOLOGICAL/ONCOLOGICAL Hx Blood Disorders: Yes Hx Anemia: Yes Hx Human Immunodeficiency Virus (HIV): No - INTEGUMENTARY Hx Dermatological Problems: No - MUSCULOSKELETAL/RHEUMATOLOGICAL Hx Falls: No - GASTROINTESTINAL Hx Gastrointestinal Disorders: Yes Hx Gastritis: Yes Other/Comment: gastroparesis - GENITOURINARY/GYNECOLOGICAL Hx Genitourinary Disorders: No - PSYCHIATRIC Hx Substance Use: Yes (cannabis) - SURGICAL HISTORY Hx Surgeries: Yes Other/Comment: RT.PERMACATH INSERTION 12/30. LT.AV SHUNT CREATION 02/17/16. UNDESCENDED TESTES LT. REMOVED DURING CHILDHOOD - ANESTHESIA Hx Anesthesia: Yes Hx Anesthesia Reactions: No Hx Malignant Hyperthermia: No Has any member of the family had a problem w/ anesthesia?: No Meds Home Medications: Home Medication List Medication Instructions Recorded Confirmed Type Atorvastatin [Lipitor] 40 mg PO HS #30 tab 09/08/16 Rx Gabapentin [Neurontin] 800 mg PO TID #90 tab 09/08/16 Rx Insulin Aspar/Insulin N 70/30 25 ml SC BID #2 vial 09/08/16 Rx [Novolog Mix 70/30-U/ml 3Ml] Lisinopril [Zestril] 10 mg PO DAILY #30 09/08/16 Rx Metoclopramide HCl [Reglan] 5 mg PO TID PRN #90 tablet 09/08/16 Rx Ondansetron ODT [Zofran ODT] 4 mg PO Q8 #90 09/08/16 Rx Pantoprazole [Protonix EC Tab] 40 mg PO DAILY #30 ect 09/08/16 Rx Sucralfate [Carafate Tab] 1 gm PO BID #60 tab 09/08/16 Rx Vitamin B Complex/Vit C/Folic 1 tab PO DAILY #30 tab 09/08/16 Rx [Nephro-Yomi] amLODIPine [Norvasc] 10 mg PO DAILY #30 tab 09/08/16 Rx hydrALAZINE [Apresoline] 50 mg PO Q8 #90 tab 09/08/16 Rx Allergies/Adverse Reactions: Allergies Allergy/AdvReac Type Severity Reaction Status Date / Time No Known Allergies Allergy Verified 09/07/16 18:33 - Medications Medications: Current Medications Amlodipine Besylate (Norvasc) 10 mg PO DAILY [facility] Last Admin: 09/08/16 09:31 Dose: 10 mg Gabapentin (Neurontin) 800 mg PO TID [facility] Last Admin: 09/08/16 13:19 Dose: 800 mg Heparin Sodium (Porcine) (Heparin) 5,000 units SC Q12 [facility] Last Admin: 09/08/16 11:53 Dose: 5,000 units Hydralazine HCl (Apresoline) 50 mg PO Q8 [facility] Last Admin: 09/08/16 13:19 Dose: 50 mg Insulin Aspart (Novolog Mix 70/30 (70/30 Units/Ml)) 25 units SC BIDAC [facility] Insulin Human Regular (Novolin R) 0 unit SC ACHS [facility] PRN Reason: Protocol Last Admin: 09/08/16 11:59 Dose: 1 unit Ketorolac Tromethamine (Toradol) 15 mg IVP Q8H PRN PRN Reason: Pain, moderate (4-7) Last Admin: 09/08/16 11:49 Dose: 15 mg Lisinopril (Zestril) 10 mg PO DAILY [facility] Last Admin: 09/08/16 09:24 Dose: 10 mg Metoclopramide HCl (Reglan) 5 mg PO TID PRN PRN Reason: Nausea/Vomiting Ondansetron HCl (Zofran Inj) 4 mg IVP Q6 PRN PRN Reason: Nausea/Vomiting Last Admin: 09/08/16 05:01 Dose: 4 mg Pantoprazole Sodium (Protonix Inj) 40 mg IVP DAILY [facility] Last Admin: 09/08/16 09:23 Dose: 40 mg Rosuvastatin Calcium (Crestor) 10 mg PO HS [facility] Physical Exam - Constitutional Appears: No Acute Distress - Head Exam Head Exam: ATRAUMATIC, NORMOCEPHALIC - Eye Exam Additional comments: No icterus - ENT Exam ENT Exam: Mucous Membranes Moist - Respiratory Exam Additional comments: Lungs clear - Cardiovascular Exam Cardiovascular Exam: REGULAR RHYTHM - Extremities Exam Additional comments: 1+ b/l pedal edema Results - Vital Signs Recent Vital Signs: Last Vital Signs Temp 98 F 09/08/16 14:55 Pulse 74 09/08/16 14:55 Resp 20 09/08/16 14:55 BP 125/75 09/08/16 16:25 Pulse Ox 98 09/08/16 14:55 - Labs Result Diagrams: 09/07/16 19:39 09/07/16 19:39 Labs: Laboratory Results - last 24 hr 09/08/16 09/08/16 09/08/16 08:56 11:37 16:03 POC Glucose (mg/dL) 274 H 301 H 174 H Assessment & Plan - Assessment and Plan (Free Text) Assessment: ESRD Abdominal pain HTN DM with complications Plan: BP & labs are stable Continue HD per schedule Renal diet
[2016-09-08] MEDS ORDERED: INSULIN N SC SCH (18:00)
[2016-09-08] MEDS ORDERED: INSULIN ASPAR SC SCH (18:00)
[2016-09-08 18:40] VITALS: RESP 17; TEMP 97.9; O2SAT 95
[2016-09-08 18:45] VITALS: BP 164/98; PULSE 87
[2016-09-08] MEDS ORDERED: Home Med 1 UNIT (Atorvastatin [Lipitor] 40 MG) PO SCH (22:00)
--- NOTE | 2016-09-10 12:44 | CARD ---
APPROVED REPORT EKG Measurement Heart [id number] <Conclusion> Normal sinus rhythm Possible Left atrial enlargement Nonspecific T wave abnormality Prolonged QT Abnormal ECG
--- NOTE | 2016-10-17 05:39 | HP ---
HISTORY OF PRESENT ILLNESS: The patient presented to the hospital complaining of shortness of breath, fatigue, tiredness, nausea, vomiting. The patient came to the ER, advised admission. The patient has chronic renal failure as well as diabetes, chronic marijuana abuse, blindness. PHYSICAL EXAMINATION GENERAL: The patient is awake, alert and oriented in no distress. VITAL SIGNS: Temperature 98, pulse 95, blood pressure 110/70. HEENT: Within normal limits. NECK: Supple. CHEST: Symmetrical. HEART: Regular. ABDOMEN: Soft. EXTREMITIES: No edema. IMPRESSION: The patient suffers from gastritis, diabetic gastroparesis, marijuana abuse, the patient needs supportive care. Lucero Chadwick MD
== END 2016-09-08 20:00 | disposition home or self-care (01) | DRG 73 ==
LOC: C.ER 18:21 → C.9E 22:50 → C.3T 09-08 00:01
PROVIDERS: ADMIT Internal Medicine Pulmonary Disease; ATTEND Internal Medicine Pulmonary Disease
PROC: 5A1D60Z (ICD-10-PCS; principal; 2016-09-08)
DX: E10.43 Type 1 diabetes mellitus with diabetic autonomic (poly)neuropathy (principal); K31.84 Gastroparesis; N18.6 End stage renal disease; I13.2 Hypertensive heart and chronic kidney disease with heart failure and with stage 5 chronic kidney disease, or end stage renal disease; E10.22 Type 1 diabetes mellitus with diabetic chronic kidney disease; E78.00 Pure hypercholesterolemia, unspecified; E78.5 Hyperlipidemia, unspecified; K59.00 Constipation, unspecified; I50.9 Heart failure, unspecified; F17.210 Nicotine dependence, cigarettes, uncomplicated; F12.10 Cannabis abuse, uncomplicated; Z99.2 Dependence on renal dialysis; Z79.4 Long term (current) use of insulin; Z98.42 Cataract extraction status, left eye; Z98.41 Cataract extraction status, right eye

== ENCOUNTER 2016-09-25 06:37 | Observation (INO) | payer MEDICAID, MEDICARE ==
[2016-09-25 06:37] VITALS: BMI 27.0
[2016-09-25 07:06] LABS: BASO # 0.1 K/uL (0.0-0.2); BASO % 0.6 % (0.0-2.0); EOS % 0.2 % (0.0-4.0); HEMATOCRIT 41.6 % (35.0-51.0); LYMPH # 0.8 K/uL (1.0-4.3); LYMPH % 4.9 % (20.0-40.0); MEAN CELL VOLUME 91.3 fL (80.0-94.0); MEAN CORPUSCULAR HEMOGLOBIN 29.1 pg (27.0-31.0); MEAN CORPUSCULAR HGB CONC 31.9 g/dL (33.0-37.0); MEAN PLATELET VOLUME 9.4 fL (7.2-11.7); MONO # 0.7 K/uL (0.0-0.8); MONO % 4.3 % (0.0-10.0); NRBC % 0.1 % (0.0-2.0); PLATELET COUNT 259 K/uL (130-400); RED CELL DISTRIBUTION WIDTH 15.1 % (11.5-14.5)
[2016-09-25 07:16] LABS: POTASSIUM 4.5 mmol/L (3.6-5.2)
[2016-09-25 07:18] LABS: ALB/GLOB RATIO 1.1 (1.0-2.1); BILIRUBIN,TOTAL 0.8 mg/dL (0.2-1.3); CALCIUM 8.7 mg/dl (8.6-10.4); TOTAL PROTEIN 7.7 g/dL (6.3-8.3)
--- NOTE | 2016-09-25 07:53 | C.PDOC ---
History Of Present Illness 36 year old male with a Hx of diabetes, HTN and gastroparesis who presents to the ER with a complaint of vomiting since yesterday. Patient is ESRD and dialyzed yesterday. Denies fever, chills, or SOB. Time Seen by Provider: 09/25/16 07:16 Chief Complaint (Nursing): Abdominal Pain History Per: Patient History/Exam Limitations: no limitations Onset/Duration Of Symptoms: Hrs Current Symptoms Are (Timing): Still Present Location Of Pain/Discomfort: Diffuse Radiation Of Pain To:: None Quality Of Discomfort: Unable To Describe Associated Symptoms: Vomiting. denies: Fever, Chills, Chest Pain Exacerbating Factors: None Alleviating Factors: None Recent travel outside of the [place]: No Past Medical History Reviewed: Historical Data, Nursing Documentation, Vital Signs Vital Signs: Last Vital Signs Temp 98.4 F 09/25/16 13:35 Pulse 98 H 09/25/16 13:35 Resp 17 09/25/16 13:35 BP 113/53 L 09/25/16 13:35 Pulse Ox 100 09/25/16 14:47 - Medical History PMH: Anemia, CHF, Diabetes (type I), Gastritis, HTN, Hypercholesterolemia, Peripheral Edema, End Stage Renal Disease, Chronic Kidney Disease Other Surgeries: AVF left arm - [facility] Procedures BYPASS LEFT BRACHIAL ARTERY TO UPPER ARM VEIN, OPEN APPROACH (02/17/16) EXCISION OF ASCENDING COLON, ENDO, DIAGN (12/19/15) EXCISION OF DUODENUM, ENDO, DIAGN (03/25/16) EXCISION OF LARGE INTESTINE, ENDO, DIAGN (05/06/16) EXCISION OF MIDDLE ESOPHAGUS, ENDO, DIAGN (03/25/16) EXCISION OF STOMACH, ENDO, DIAGN (06/03/16) EXCISION OF TRANSVERSE COLON, ENDO, DIAGN (05/06/16) INSERTION OF INFUSION DEV INTO SUP VENA CAVA, PERC APPROACH (12/19/15) PERFORMANCE OF URINARY FILTRATION, MULTIPLE (09/07/16) PERFORMANCE OF URINARY FILTRATION, SINGLE (06/21/16) REPOSITION LEFT BASILIC VEIN, OPEN APPROACH (05/25/16) ULTRASONOGRAPHY OF SUPERIOR VENA CAVA, GUIDANCE (12/19/15) Family History: States: Unknown Family Hx - Social History Hx Tobacco Use: Yes (some days) Hx Alcohol Use: No Hx Substance Use: Yes (cannabis) - Immunization History Hx Tetanus Toxoid Vaccination: Yes Hx Influenza Vaccination: Yes Hx Pneumococcal Vaccination: Yes Review Of Systems Constitutional: Negative for: Fever, Chills Cardiovascular: Negative for: Chest Pain Respiratory: Negative for: Shortness of Breath Gastrointestinal: Positive for: Vomiting Neurological: Negative for: Weakness, Numbness Physical Exam - Physical Exam Appears: Non-toxic, Other (Nauseous) Skin: Normal Color, Warm, Dry Head: Atraumatic, Normacephalic Oral Mucosa: Moist Chest: Symmetrical, No Tenderness Cardiovascular: Rhythm Regular, No Murmur Respiratory: Normal Breath Sounds, No Rales, No Rhonchi, No Wheezing Gastrointestinal/Abdominal: Soft, No Tenderness Extremity: Other (Left arm shunt) Neurological/Psych: Oriented x3, Normal Speech, Normal Cognition Gait: Steady ED Course And Treatment - Laboratory Results Result Diagrams: 09/25/16 07:00 09/25/16 07:00 Lab Interpretation: No Acute Changes ECG: Interpreted By Me ECG Rhythm: Sinus Rhythm, Nonspecific Changes ECG Interpretation: No Acute Changes Rate From EC O2 Sat by Pulse Oximetry: 100 (Room air) Pulse Ox Interpretation: Normal - Radiology CXR: Interpreted by Me CXR Interpretation: Yes: No Acute Disease - Other Rad No standard instances X-Ray: Interpreted by Me Interpretation: OBS series: no OBS Progress Note: EKG, blood work, and abdominal x-ray ordered. zofran 8 mg PO administered. On re-evaluation continues to vomit Zofran 4 mg IV. Treated with additional Reglan 10 mg IV and pepcid 20 mg IV. Treated with Hydralizine 10 mg IV for elevated B/P. Treated with hydralizine 50 mg PO. On re- evaluation abdomen soft, in no distress Reassessment Condition: Improved - Physician Consult Information Physician Contacted: Lucero Chadwick Outcome Of Conversation: admit Medical Decision Making Medical Decision Making: Treated with zofran 8 mg PO Treated with reglan 10 mg IV and pepcid 20 mg IV Continued to vomit ativan 1 mg IV Hydralizine 10 mg IV for hypertension Hydralizine 50 mg PO x 1 On re-evaluation abdomen soft Disposition Discussed With : Lucero Chadwick Doctor Will See Patient In The: Hospital - Disposition Disposition: HOSPITALIZED Disposition Time: 09:40 Condition: STABLE - POA Present On Arrival: None - Clinical Impression Clinical Impression: Acute renal failure, Intractable abdominal pain, Gastroparesis due to secondary diabetes, Vomiting, Intractable vomiting with nausea, Hypertension - Scribe Statement The provider has reviewed the documentation as recorded by the Raquelibbrenden Mcclure All medical record entries made by the Raquelibbrenden were at my direction and personally dictated by me. I have reviewed the chart and agree that the record accurately reflects my personal performance of the history, physical exam, medical decision making, and the department course for this patient. I have also personally directed, reviewed, and agree with the discharge instructions and disposition. Decision To Admit - Pt Status Changed To: Hospital Disposition Of: Observation - . Bed Request Type: Regular Admitting Physician: Lucero Chadwick Patient Diagnosis: Acute renal failure, Intractable abdominal pain, Gastroparesis due to secondary diabetes, Vomiting, Intractable vomiting with nausea, Hypertension
[2016-09-25 08:20] LABS: BASOPHIL 1 % (0-2); EOSINOPHIL 1 % (0-4); NEUTROPHIL 86 % (50-75); TOTAL CELLS COUNTED 100
[2016-09-25 08:23] LABS: LARGE PLATELETS PRESENT
--- NOTE | 2016-09-25 10:36 | CP.PCM.PN ---
Subjective - Date & Time of Evaluation Date of Evaluation: 09/25/16 Time of Evaluation: 10:35 - Subjective Subjective: ADMITTING ORDERS AND MEDS ORDERED FOR DR. CANTU. PT TO RECEIVE PROTONIX, ZOFRAN AND TORADOL PER DR. CANTU. G[place]LEY HAND DISCUSSED WITH PHARMACY, PT UNABLE TO HAVE TORADOL 2/2 ESRD AND GFR AT 17. TYLENOL ORDERED INSTEAD PRN. NO FURTHER ORDERS. Objective - Vital Signs/Intake and Output Vital Signs (last 24 hours): Temp Pulse Resp BP Pulse Ox 98.3 F 111 H 16 204/90 H 100 09/25/16 09:25 09/25/16 09:25 09/25/16 09:25 09/25/16 09:25 09/25/16 09:40 - Medications Medications: Current Medications Ondansetron HCl (Zofran Inj) 4 mg IVP Q6 PRN PRN Reason: Nausea/Vomiting Pantoprazole Sodium (Protonix Inj) 40 mg IVP DAILY [facility]
[2016-09-25] MEDS ORDERED: hydrALAZINE 12.5 mg Tab PO STA (10:40)
--- NOTE | 2016-09-25 14:34 | RAD ---
PROCEDURE: Radiographs of the chest and abdomen (obstructive series) HISTORY: Abd Pain COMPARISON: No prior. TECHNIQUE: AP radiograph of the chest, with upright and supine radiographs of the abdomen. FINDINGS: CHEST: Lungs: Clear. Cardiovascular: Normal size heart. No pulmonary vascular congestion. Pleura: No pleural fluid. No pneumothorax. Other findings: None. ABDOMEN AND PELVIS: Bowel: Unremarkable bowel gas pattern. No evidence of mechanical obstruction. Free air: None. Bones: Unremarkable. Other findings: None. IMPRESSION: Unremarkable radiographs of chest and abdomen. No evidence of mechanical bowel obstruction.
[2016-09-25] MEDS: (Novolog) Insulin Aspart, Recombinant 100 u/ml 10 ml vial SC SCH (21:43)
[2016-09-26] MEDS: (Novolog) Insulin Aspart, Recombinant 100 u/ml 10 ml vial SC SCH ×4 (08:40→22:06)
--- NOTE | 2016-09-26 16:48 | CP.PCM.CON ---
History of Present Illness - History of Present Illness History of Present Illness: Initial Nephrology Consultation: Assessment: Stable Diabetic chronic Kidney Disease (E11.22) Hypertensive Chronic Kidney Disease (I12.0) End stage renal disease (N18.6) dependence on hemodialysis (Z99.2) (MWF) via AVF Anemia (D64.9), Hyperphosphatemia (E83.39), Secondary Hyperparathyroidism (E21.1 ), HTN (I12.0) Intractable Nausea/vomitting, hx of diabetic gastroparesis Plan: Will plan for HD tomorrow as ordered. No acute need for dialysis today. Continue with Nephrovite 1 tab/day. PRBC as needed for anemia.Not on MOHINI as last Hb 13. he gets epogen 4600 unit with HD as outpt as Hb there 10.9 Continue with phos binders home dose Last PTH level 382, pt not on any meds. BP control with meds as ordered. Patient on RAAS lola as Lisinopril Glycemic control, Dialysis consistent diet Further work up/management as per primary team Dose meds/antibiotics (if needed) for ESRD status. Avoid fleets enema/magnesium based laxatives. Thanks for allowing me to participate in care of your patient. Will follow patient with you. Please call if any Qs Dr Brenton Larsen Office: [phone] Chief Complaint; nausea/vomitting HPI: Pt is a 36 y/o M with hx of ESRD on hemodialysis (MWF) via AVF, last dialysis tuesday, chronic anemia, hyperphosphatemia, secondary hyperparathyroidism, Diabetes Mellitus, hypertension, gastroparesis presented with complaints of intractable nausea and vomitting x last 1-2 days which is now better. Denies chest pain, palpitation, shortness of breath, leg swelling ROS: Constitutional Symptoms: Denies fever. No chills. No Recent Weight Changes Eyes: denies change in vision, denies watery eyes, denies double vision Ears/Nose/Mouth/Throat: Denies Abnormal Taste. No Bad breath or Bad Taste. Cardiovascular: No chest pain. There is no shortness of breath. No palpitations. Pulmonary: No shortness of breath or cough. Gastrointestinal: c/o abdominal pain c/o nausea. c/o vomiting. Denies change in bowel habits. Denies Bleeding Genitourinary: makes small urine. No associated pain or blood. Neurological: Denies headaches. No dizziness. Denies loss of balance. Denies weakness, denies tingling/numbness Dermatological: No Rash or Bruising or ulcers. Psychiatric: Denies Anxiety. No depression. Denies hallucinations. Rheumatological: No joint pain. Denies Joint swelling Endocrine: Denies over tiredness. Denies Fatigue and denies Heat/Cold Intolerance. All other negative. Physical Examination: General Appearance: Comfortable, in no acute respiratory distress, co-operative . Vitals reviewed and noted as below Head; Atraumatic, normocephalic ENT: no ulcers no thrush. Tongue is midline. Oropharynx: no rash or ulcers. EYES: Pupils are equal, round and reactive to light accommodation. Eye muscles and extraocular movement intact. Sclera is anicteric. Neck; supple no lymphadenopathy, no thyromegaly or bruit Lungs: Normal respiratory rate/effort. Breath sounds bilateral equal and clear Heart: Normal rate. s1s2 normal. No rub or gallop. Extremities: no edema. No varicose veins Neurological: Patient is alert, awake and oriented to person, place and time. No focal deficit. Strength bilateral appropriate and equal Skin: Warm and dry. Normal turgor. No rash. Palpitation: Normal elasticity for age Abdomen: Abdomen is soft. Bowel sounds +. There is no abdominal tenderness, no guarding/rigidity or organomegaly Psych: normal insight and normal affect/mood MSK: no joint tenderness or swelling. Digits and nails normal, no deformity : kidney or bladder not palpable Access: AVF Labs/imaging reviewed. Past medical history, past surgical history, family history, social history, allergy reviewed and noted as below Family Hx: no hx of CKD. Non contributory Past Patient History - Infectious Disease Hx of Infectious Diseases: None - Past Medical History & Family History Past Medical History?: Yes - Past Social History Smoking Status: Light Smoker < 10 Cigarettes Daily - CARDIAC Hx Congestive Heart Failure: Yes Hx Hypercholesterolemia: Yes Hx Hypertension: Yes Hx Peripheral Edema: Yes - PULMONARY Hx Respiratory Disorders: No - NEUROLOGICAL Hx Neurological Disorder: Yes Other/Comment: Bilateral leg neuropathy - HEENT Hx HEENT Problems: Yes Hx Cataracts: Yes Other/Comment: cataract surgery [facility] 10 years ago - RENAL Hx Chronic Kidney Disease: Yes - ENDOCRINE/METABOLIC Hx Endocrine Disorders: Yes Hx Diabetes Mellitus Type 2: Yes - HEMATOLOGICAL/ONCOLOGICAL Hx Anemia: Yes - INTEGUMENTARY Hx Dermatological Problems: No - MUSCULOSKELETAL/RHEUMATOLOGICAL Hx Falls: No - GASTROINTESTINAL Hx Gastritis: Yes - GENITOURINARY/GYNECOLOGICAL Hx Genitourinary Disorders: No - PSYCHIATRIC Hx Substance Use: Yes (cannabis) - SURGICAL HISTORY Hx Surgeries: Yes Other/Comment: RT.PERMACATH INSERTION 12/30. LT.AV SHUNT CREATION 02/17/16. UNDESCENDED TESTES LT. REMOVED DURING CHILDHOOD - ANESTHESIA Hx Anesthesia: Yes Hx Anesthesia Reactions: No Hx Malignant Hyperthermia: No Meds Allergies/Adverse Reactions: Allergies Allergy/AdvReac Type Severity Reaction Status Date / Time No Known Allergies Allergy Verified 09/25/16 06:47 - Medications Medications: Current Medications Acetaminophen (Tylenol 325mg Tab) 975 mg PO Q6 PRN PRN Reason: Pain, moderate (4-7) Last Admin: 09/26/16 04:02 Dose: 975 mg Amlodipine Besylate (Norvasc) 10 mg PO DAILY [facility] Last Admin: 09/26/16 11:31 Dose: 10 mg Aspirin (Aspirin Chewable) 81 mg PO DAILY [facility] Last Admin: 09/26/16 11:23 Dose: 81 mg Clonidine HCl (Catapres) 0.3 mg PO TID [facility] Last Admin: 09/26/16 13:59 Dose: 0.3 mg Gabapentin (Neurontin) 800 mg PO TID [facility] Last Admin: 09/26/16 13:59 Dose: 800 mg Hydralazine HCl (Apresoline) 50 mg PO Q8 [facility] Last Admin: 09/26/16 13:59 Dose: 50 mg Insulin Aspart (Novolog) 0 unit SC [facility] PRN Reason: Protocol Last Admin: 09/26/16 12:24 Dose: 3 unit Ketorolac Tromethamine (Toradol) 30 mg IVP Q6 PRN PRN Reason: Pain, moderate (4-7) Last Admin: 09/25/16 12:50 Dose: 30 mg Lisinopril (Zestril) 10 mg PO DAILY [facility] Last Admin: 09/26/16 11:23 Dose: 10 mg Metoclopramide HCl (Reglan) 5 mg PO TID PRN PRN Reason: nausea/vomiting Ondansetron HCl (Zofran Inj) 4 mg IVP Q6 PRN PRN Reason: Nausea/Vomiting Last Admin: 09/25/16 11:23 Dose: 4 mg Pantoprazole Sodium (Protonix Inj) 40 mg IVP DAILY [facility] Last Admin: 09/26/16 11:23 Dose: 40 mg Rosuvastatin Calcium (Crestor) 40 mg PO HS [facility] Last Admin: 09/25/16 21:50 Dose: 40 mg Sucralfate (Carafate Tab) 1 gm PO DAILY [facility] Last Admin: 09/26/16 11:22 Dose: 1 gm Results - Vital Signs Recent Vital Signs: Last Vital Signs Temp 98.2 F 09/26/16 08:00 Pulse 82 09/26/16 08:00 Resp 20 09/26/16 08:00 BP 150/80 09/26/16 08:00 Pulse Ox 98 09/26/16 08:00 - Labs Result Diagrams: 09/25/16 07:00 09/25/16 07:00 Labs: Laboratory Results - last 24 hr 09/25/16 09/25/16 09/26/16 19:02 20:49 07:26 POC Glucose (mg/dL) 309 H 274 H 358 H 09/26/16 09/26/16 11:03 16:08 POC Glucose (mg/dL) 289 H 474 H*
--- NOTE | 2016-09-27 04:16 | HP ---
HISTORY OF PRESENT ILLNESS: This patient has complained of no weakness. He does have nausea, vomiting, and abdominal pain. The patient came to the ER, advised admission. PAST MEDICAL HISTORY: The patient has chronic renal failure, gastritis, marijuana abuse. SOCIAL HISTORY: The patient is a nonsmoker. PHYSICAL EXAMINATION GENERAL: The patient is awake, alert, and oriented. VITAL SIGNS: Temperature 98, pulse 90. HEENT: Normal limits. NECK: Supple. CHEST: Symmetrical. HEART: Regular. ABDOMEN: Soft. EXTREMITIES: No edema. IMPRESSION: Lumbar disk arthritis and gastritis. PLAN: The patient to get bed rest, supportive care, immobilization of the knee, and x-rays at 10 a.m. Lucero Chadwick MD
[2016-09-27] MEDS ORDERED: Multivitamin Vitamin B Complex (Nephro-Vite) Tab PO SCH (08:00)
--- NOTE | 2016-09-27 09:04 | CP.PCM.PN ---
Subjective - Date & Time of Evaluation Date of Evaluation: 09/27/16 Time of Evaluation: 09:00 - Subjective Subjective: Medicine Note for Dr. Chadwick's Service Pt seen and examined at bedside. He states that the nausea and vomiting have subsided and he is now having only diarrhea. He reports continued abdominal pain and requests opioids as he believes these are the only thing that will make it better. He reports several loose bowel movements from yesterday into today. He is insistent on receiving opioids and is well known by Dr. Chadwick to have a history of abuse. Pt will be going for scheduled HD today and is awaiting transport. Objective - Vital Signs/Intake and Output Vital Signs (last 24 hours): Temp Pulse Resp BP Pulse Ox 98.3 F 70 20 122/73 96 09/27/16 00:00 09/27/16 00:00 09/27/16 00:00 09/27/16 00:00 09/27/16 00:00 Intake and Output: 09/27/16 09/27/16 06:59 18:59 Intake Total 360 Balance 360 - Medications Medications: Current Medications Acetaminophen (Tylenol 325mg Tab) 975 mg PO Q6 PRN PRN Reason: Pain, moderate (4-7) Last Admin: 09/26/16 04:02 Dose: 975 mg Amlodipine Besylate (Norvasc) 10 mg PO DAILY [facility] Last Admin: 09/26/16 11:31 Dose: 10 mg Aspirin (Aspirin Chewable) 81 mg PO DAILY [facility] Last Admin: 09/26/16 11:23 Dose: 81 mg Clonidine HCl (Catapres) 0.3 mg PO TID [facility] Last Admin: 09/26/16 17:49 Dose: 0.3 mg Gabapentin (Neurontin) 800 mg PO TID [facility] Last Admin: 09/26/16 17:49 Dose: 800 mg Hydralazine HCl (Apresoline) 50 mg PO Q8 [facility] Last Admin: 09/27/16 06:26 Dose: 50 mg Insulin Aspart (Novolog) 0 unit SC ACHS [facility] PRN Reason: Protocol Last Admin: 09/26/16 22:06 Dose: 3 unit Ketorolac Tromethamine (Toradol) 30 mg IVP Q6 PRN PRN Reason: Pain, moderate (4-7) Last Admin: 09/27/16 06:23 Dose: 30 mg Lisinopril (Zestril) 10 mg PO DAILY [facility] Last Admin: 09/26/16 11:23 Dose: 10 mg Metoclopramide HCl (Reglan) 5 mg PO TID PRN PRN Reason: nausea/vomiting Ondansetron HCl (Zofran Inj) 4 mg IVP Q6 PRN PRN Reason: Nausea/Vomiting Last Admin: 09/25/16 11:23 Dose: 4 mg Pantoprazole Sodium (Protonix Inj) 40 mg IVP DAILY [facility] Last Admin: 09/26/16 11:23 Dose: 40 mg Rosuvastatin Calcium (Crestor) 40 mg PO HS [facility] Last Admin: 09/26/16 21:59 Dose: 40 mg Sucralfate (Carafate Tab) 1 gm PO DAILY [facility] Last Admin: 09/26/16 11:22 Dose: 1 gm Vitamin B Complex/Vit C/Folic Acid (Nephro-Linda) 1 tab PO 0800 [facility] - Constitutional Appears: No Acute Distress - Head Exam Head Exam: ATRAUMATIC, NORMAL INSPECTION - Eye Exam Eye Exam: EOMI - ENT Exam ENT Exam: Mucous Membranes Moist - Respiratory Exam Respiratory Exam: Clear to Ausculation Bilateral - Cardiovascular Exam Cardiovascular Exam: REGULAR RHYTHM - GI/Abdominal Exam GI & Abdominal Exam: Soft, Tenderness - Neurological Exam Neurological Exam: Alert, Awake, Oriented x3 - Psychiatric Exam Psychiatric exam: Anxious Assessment and Plan - Assessment and Plan (Free Text) Plan: Intractable Nausea, Vomiting, Abdominal pain, hx of diabetic gastroparesis -Abdomen obstructive series XRay: Unremarkable. No evidence of mechanical bowel obstruction. -Metoclopramide 5mg PO TID PRN N/V -Zofran 4mg IVP Q6 PRN N/V -Sucralfate 1gm PO daily -Tylenol 975mg PO Q6 PRN moderate pain -Toradol 30mg IVP Q6 PRN moderate pain Elevated WBC -continue to monitor clinically -WBC (09/25): 16 -F/u CBC -F/u blood culture ESRD on HD (MWF) -Continue HD as scheduled. Dialyzed today. -Nephro-linda 1 tab PO daily -Dr. Farris, nephrology consult 09/26: Plan for HD on 09/27 as ordered. Continue with Nephrovite 1 tab/day. PRBC as need for anemia. Not on MOHINI as last Hb 13. He gets epogen 4600 unit with HD as outpatient as Hb there 10.9. Continue with phos binders home dose. BP control with meds as ordered. Pt on RAAS lola as Lisinopril. Glycemic control, Dialysis consistent diet. Further work up/Management as per primary team. Dose meds/antibiotics (if needed) for ESRD status. Avoid fleets enema/magnesium based laxatives. DM with secondary neuropathy -High dose ISS (last glucose >500) -Accuchecks -Lisinopril 10mg PO daily -Crestor 40mg PH HS -ASA 81mg PO daily -Gabapentin 800mg PO TID is his home does but given elevated BUN/Cr dose has been adjusted to 300mg PO TID Anemia of chronic disease -Hgb: 12.0 on 09/27 -Dr. Farris, nephrology consult: transfuse PRBC as need for anemia. Not on MOHINI as last Hb 13 on 09/25. He gets epogen 4600 unit with HD as outpatient as Hb there 10.9. HTN -Norvasc 10mg PO daily -Clonidine 0.3mg PO TID -Hydralazine 50mg PO Q8H HLD Crestor renally adjusted to 10mg PO qhs History of opioid abuse -Pt has estensive history of oxycodone usage and is requesting continued oxycodone -As per Dr. Chadwick, pt is not to receive any oxycodone -Outpatient referral to pain management upon discharge. Prophylaxis -Protonix 40mg IVP daily -DVT prophylaxis is not indicated at this time, pt is ambulatory Case discussed with Dr. Chadwick. All management as per Dr. Chadwick.
[2016-09-27] MEDS: (Novolog) Insulin Aspart, Recombinant 100 u/ml 10 ml vial SC SCH (09:19)
--- NOTE | 2016-09-27 10:37 | CP.PCM.PN ---
Subjective - Date & Time of Evaluation Date of Evaluation: 09/27/16 Time of Evaluation: 10:30 - Subjective Subjective: Feels better today Objective - Vital Signs/Intake and Output Vital Signs (last 24 hours): Temp Pulse Resp BP Pulse Ox 98.3 F 70 20 122/73 96 09/27/16 00:00 09/27/16 00:00 09/27/16 00:00 09/27/16 00:00 09/27/16 00:00 Intake and Output: 09/27/16 09/27/16 06:59 18:59 Intake Total 360 Balance 360 - Medications Medications: Current Medications Acetaminophen (Tylenol 325mg Tab) 975 mg PO Q6 PRN PRN Reason: Pain, moderate (4-7) Last Admin: 09/26/16 04:02 Dose: 975 mg Amlodipine Besylate (Norvasc) 10 mg PO DAILY [facility] Last Admin: 09/26/16 11:31 Dose: 10 mg Aspirin (Aspirin Chewable) 81 mg PO DAILY [facility] Last Admin: 09/27/16 09:14 Dose: 81 mg Clonidine HCl (Catapres) 0.3 mg PO TID [facility] Last Admin: 09/26/16 17:49 Dose: 0.3 mg Gabapentin (Neurontin) 800 mg PO TID [facility] Last Admin: 09/27/16 09:30 Dose: 800 mg Hydralazine HCl (Apresoline) 50 mg PO Q8 [facility] Last Admin: 09/27/16 06:26 Dose: 50 mg Insulin Aspart (Novolog) 0 unit SC ACHS [facility] PRN Reason: Protocol Last Admin: 09/27/16 09:19 Dose: 5 unit Ketorolac Tromethamine (Toradol) 30 mg IVP Q6 PRN PRN Reason: Pain, moderate (4-7) Last Admin: 09/27/16 06:23 Dose: 30 mg Lisinopril (Zestril) 10 mg PO DAILY [facility] Last Admin: 09/26/16 11:23 Dose: 10 mg Metoclopramide HCl (Reglan) 5 mg PO TID PRN PRN Reason: nausea/vomiting Ondansetron HCl (Zofran Inj) 4 mg IVP Q6 PRN PRN Reason: Nausea/Vomiting Last Admin: 09/25/16 11:23 Dose: 4 mg Pantoprazole Sodium (Protonix Inj) 40 mg IVP DAILY [facility] Last Admin: 09/27/16 09:14 Dose: 40 mg Rosuvastatin Calcium (Crestor) 40 mg PO HS [facility] Last Admin: 09/26/16 21:59 Dose: 40 mg Sucralfate (Carafate Tab) 1 gm PO DAILY [facility] Last Admin: 09/27/16 09:14 Dose: 1 gm Vitamin B Complex/Vit C/Folic Acid (Nephro-Yomi) 1 tab PO 0800 [facility] Last Admin: 09/27/16 09:14 Dose: 1 tab - Respiratory Exam Respiratory Exam: NORMAL BREATHING PATTERN Additional comments: Lungs clear - Cardiovascular Exam Cardiovascular Exam: REGULAR RHYTHM - GI/Abdominal Exam GI & Abdominal Exam: Soft - Extremities Exam Additional comments: No pedal edemaNo edema Assessment and Plan - Assessment and Plan (Free Text) Assessment: ESRD Abdominal pain HTN IDDM with complications Plan: Scheduled for dialysis today Will continue dialysis per schedule
[2016-09-27 11:21] LABS: POTASSIUM 5.5 mmol/L (3.6-5.2)
[2016-09-27 11:22] LABS: BASO # 0.1 K/uL (0.0-0.2); BASO % 0.7 % (0.0-2.0); BILIRUBIN,TOTAL 0.5 mg/dL (0.2-1.3); EOS # 0.3 K/uL (0.0-0.7); EOS % 1.8 % (0.0-4.0); HEMATOCRIT 38.9 % (35.0-51.0); LYMPH # 1.4 K/uL (1.0-4.3); LYMPH % 9.9 % (20.0-40.0); MEAN CORPUSCULAR HEMOGLOBIN 29.4 pg (27.0-31.0); MEAN CORPUSCULAR HGB CONC 30.8 g/dL (33.0-37.0); MEAN PLATELET VOLUME 9.7 fL (7.2-11.7); MONO # 0.9 K/uL (0.0-0.8); MONO % 6.4 % (0.0-10.0); PLATELET COUNT 254 K/uL (130-400)
[2016-09-27 11:23] LABS: ALB/GLOB RATIO 1.1 (1.0-2.1); TOTAL PROTEIN 6.3 g/dL (6.3-8.3)
[2016-09-27 11:24] LABS: CALCIUM 7.1 mg/dl (8.6-10.4)
[2016-09-27 11:25] LABS: MEAN CELL VOLUME 95.5 fL (80.0-94.0)
[2016-09-27] MEDS ORDERED: (Novolin R) Insulin Human Regular 100 units/ml vial SC SCH ×2 (12:20→16:30)
[2016-09-27 12:40] LABS: EOSINOPHIL 1 % (0-4); NEUTROPHIL 85 % (50-75); REACTIVE LYMPHOCYTES 1 % (0-0); TOTAL CELLS COUNTED 100
[2016-09-27 15:41] VITALS: O2SAT 98
[2016-09-27 18:55] VITALS: RESP 16; TEMP 98.3
[2016-09-27 19:07] VITALS: BP 125/72; PULSE 82
--- NOTE | 2016-10-05 20:08 | CARD ---
APPROVED REPORT EKG Measurement Heart [id number] <Conclusion> Normal sinus rhythm Voltage criteria for left ventricular hypertrophy Prolonged QT Abnormal ECG
== END 2016-09-27 20:35 | disposition left against medical advice (07) ==
LOC: C.ER 06:37 → INTOOBSV 09:36 → C.9E 09:36 → C.3T 15:14
PROVIDERS: ADMIT Internal Medicine Pulmonary Disease; ATTEND Internal Medicine Pulmonary Disease
DX: E11.43 Type 2 diabetes mellitus with diabetic autonomic (poly)neuropathy (principal); K31.84 Gastroparesis; Z79.4 Long term (current) use of insulin; I13.2 Hypertensive heart and chronic kidney disease with heart failure and with stage 5 chronic kidney disease, or end stage renal disease; I50.9 Heart failure, unspecified; N18.6 End stage renal disease; N25.81 Secondary hyperparathyroidism of renal origin; N17.9 Acute kidney failure, unspecified; Z99.2 Dependence on renal dialysis; F17.210 Nicotine dependence, cigarettes, uncomplicated
CPT/HCPCS: 36415; 74022; 80053; 82009; 82948; 85025; 87040; 96374; 96375; 99285; C9113; G0257; G0378; J0360; J1885; J2060; J2405; J2765

== ENCOUNTER 2016-10-02 15:56 | Observation (INO) | payer MEDICARE ==
[2016-10-02 15:57] VITALS: BMI 27.0
--- NOTE | 2016-10-02 16:22 | C.PDOC ---
History Of Present Illness 36 year old male with a history of diabetes, gastroparesis, and end stage renal failure presents to the ED with complaints of recurrent episodes of vomiting and abdominal pain since yesterday. Patient was discharged from ED on 2016 for same complaints. He states last dialysis was yesterday and symptoms are the same as prior visit. Patient denies fever, diarrhea, or other complaints at this time. CO RECUR VOMITING, ABD PAIN SINCE YEST. MULT PRIOR ADMISSIONS FOR SAME. Time Seen by Provider: 10/02/16 16:01 Chief Complaint (Nursing): Abdominal Pain History Per: Patient History/Exam Limitations: no limitations Onset/Duration Of Symptoms: Days (since yesterday ) Current Symptoms Are (Timing): Still Present Quality Of Discomfort: "Pain" Associated Symptoms: Vomiting. denies: Fever, Chills, Diarrhea Exacerbating Factors: None Recent travel outside of the [place]: No Additional History Per: Prior Records Past Medical History Reviewed: Historical Data, Nursing Documentation, Vital Signs Vital Signs: Last Vital Signs Temp 98.8 F 10/02/16 16:06 Pulse 114 H 10/02/16 16:06 Resp 18 10/02/16 16:06 BP 182/152 H 10/02/16 16:23 Pulse Ox 100 10/02/16 17:10 - Medical History PMH: Anemia, CHF, Diabetes (type I), Gastritis, HTN, Hypercholesterolemia, Peripheral Edema, End Stage Renal Disease, Chronic Kidney Disease - [facility] Procedures BYPASS LEFT BRACHIAL ARTERY TO UPPER ARM VEIN, OPEN APPROACH (02/17/16) EXCISION OF ASCENDING COLON, ENDO, DIAGN (12/19/15) EXCISION OF DUODENUM, ENDO, DIAGN (03/25/16) EXCISION OF LARGE INTESTINE, ENDO, DIAGN (05/06/16) EXCISION OF MIDDLE ESOPHAGUS, ENDO, DIAGN (03/25/16) EXCISION OF STOMACH, ENDO, DIAGN (06/03/16) EXCISION OF TRANSVERSE COLON, ENDO, DIAGN (05/06/16) INSERTION OF INFUSION DEV INTO SUP VENA CAVA, PERC APPROACH (12/19/15) PERFORMANCE OF URINARY FILTRATION, MULTIPLE (09/07/16) PERFORMANCE OF URINARY FILTRATION, SINGLE (06/21/16) REPOSITION LEFT BASILIC VEIN, OPEN APPROACH (05/25/16) ULTRASONOGRAPHY OF SUPERIOR VENA CAVA, GUIDANCE (12/19/15) Family History: States: Unknown Family Hx - Social History Hx Tobacco Use: Yes (some days) Hx Alcohol Use: No Hx Substance Use: Yes (cannabis) - Immunization History Hx Tetanus Toxoid Vaccination: Yes Hx Influenza Vaccination: Yes Hx Pneumococcal Vaccination: Yes Review Of Systems Constitutional: Negative for: Fever, Chills Cardiovascular: Negative for: Chest Pain Respiratory: Negative for: Shortness of Breath Gastrointestinal: Positive for: Vomiting, Abdominal Pain. Negative for: Diarrhea Genitourinary: Negative for: Dysuria, Hematuria Physical Exam - Physical Exam Appears: Non-toxic, No Acute Distress Skin: Warm, Dry Head: Atraumatic Eye(s): bilateral: Normal Inspection, EOMI Oral Mucosa: Moist Neck: Supple Chest: Symmetrical, No Deformity Cardiovascular: Other (sinus tachycardia 107 bpm ) Respiratory: Normal Breath Sounds, No Rhonchi, No Wheezing Gastrointestinal/Abdominal: Soft, Tenderness (generalized abdominal tenderness ) , No Distention, No Guarding, No Rebound Neurological/Psych: Oriented x3, Normal Speech, Normal Cognition, Normal Cranial Nerves, Normal Motor, Normal Sensation ED Course And Treatment - Laboratory Results Result Diagrams: 10/02/16 16:39 10/02/16 16:39 ECG: Interpreted By Me, Viewed By Me ECG Rhythm: Sinus Tachycardia (107 bpm ) O2 Sat by Pulse Oximetry: 100 (room air ) Progress Note: Patient was given Dilaudid and Zofran. Progress - Re-Evaluation Re-evaluation Note: 10/02/16 17:08 EXAM [facility] D/W DR CANTU, AWARE OF ER FINDINGS WILL ADMIT. CONCERN FOR DRUG SEEKING BEHAVIOR. - Data Reviewed Data Reviewed: Lab, Diagnostic imaging, Old records - Continuity of Care Discussed patient case with:: Patient, PMD Disposition Counseled Patient/Family Regarding: Studies Performed, Diagnosis - Disposition Disposition: HOSPITALIZED Disposition Time: 17:09 Condition: STABLE - POA Present On Arrival: Poor Glycemic Control - Clinical Impression Clinical Impression: Intractable abdominal pain, Intractable vomiting with nausea, ESRD (end stage renal disease) on dialysis, Uncontrolled hypertension - Scribe Statement The provider has reviewed the documentation as recorded by the Raquelibbrenden Zuniga All medical record entries made by the Raquelibe were at my direction and personally dictated by me. I have reviewed the chart and agree that the record accurately reflects my personal performance of the history, physical exam, medical decision making, and the department course for this patient. I have also personally directed, reviewed, and agree with the discharge instructions and disposition. Decision To Admit - Pt Status Changed To: Hospital Disposition Of: Observation - . Bed Request Type: Regular Admitting Physician: Lucero Cantu Patient Diagnosis: Intractable abdominal pain, Intractable vomiting with nausea, ESRD (end stage renal disease) on dialysis, Uncontrolled hypertension
[2016-10-02] MEDS ORDERED: HYDROmorphone 0.5 mg/0.5 ml ISec IVP STA ×2 (16:27→23:57)
[2016-10-02] MEDS ORDERED: HYDROmorphone 1 mg/ml ISec ONE (16:40)
[2016-10-02 16:43] LABS: BASO # 0.1 K/uL (0.0-0.2); BASO % 0.8 % (0.0-2.0); EOS # 0.1 K/uL (0.0-0.7); EOS % 0.7 % (0.0-4.0); HEMATOCRIT 39.8 % (35.0-51.0); LYMPH # 1.1 K/uL (1.0-4.3); LYMPH % 10.1 % (20.0-40.0); MEAN CORPUSCULAR HEMOGLOBIN 29.2 pg (27.0-31.0); MEAN PLATELET VOLUME 9.7 fL (7.2-11.7); MONO # 0.9 K/uL (0.0-0.8); NRBC % 0.1 % (0.0-2.0); RED CELL DISTRIBUTION WIDTH 15.6 % (11.5-14.5); WHITE BLOOD COUNT 11.4 K/uL (4.8-10.8)
[2016-10-02 16:51] LABS: POTASSIUM 4.7 mmol/L (3.6-5.2)
[2016-10-02 16:54] LABS: CALCIUM 8.9 mg/dl (8.6-10.4)
[2016-10-02] MEDS ORDERED: (Novolin R) Insulin Human Regular 100 units/ml vial IV STA (19:25)
[2016-10-02] MEDS ORDERED: (Novolin R) Insulin Human Regular 100 units/ml vial ONE (19:56)
[2016-10-03] MEDS ORDERED: HYDROmorphone 1 mg/ml ISec ONE
[2016-10-03] MEDS: Pantoprazole 40 mg EC Tab PO SCH (10:16)
[2016-10-03] MEDS: (Novolin R) Insulin Human Regular 100 units/ml vial SC SCH ×3 (12:25→22:00)
[2016-10-03] MEDS ORDERED: (Novolin R) Insulin Human Regular 100 units/ml vial SC ONE (21:42)
[2016-10-04] MEDS: (Novolin R) Insulin Human Regular 100 units/ml vial SC SCH ×3 (08:15→17:16)
--- NOTE | 2016-10-04 10:12 | CP.PCM.PN ---
Subjective - Date & Time of Evaluation Date of Evaluation: 10/04/16 Time of Evaluation: 09:00 - Subjective Subjective: PGY3 on medicine Dr. Chadwick service: Pt seen and examined at bedside this morning. Pt complains n/v several days after DC from previous admission. Pt said he is compliant with medications, including his insulin use. Pt also admits to marajuana use every other day for long time. Objective - Vital Signs/Intake and Output Vital Signs (last 24 hours): Temp Pulse Resp BP Pulse Ox 97.6 F 79 20 166/85 H 98 10/04/16 08:00 10/04/16 08:00 10/04/16 08:00 10/04/16 08:00 10/04/16 08:00 - Medications Medications: Current Medications Acetaminophen (Tylenol 325mg Tab) 975 mg PO Q6 PRN PRN Reason: Pain, moderate (4-7) Amlodipine Besylate (Norvasc) 10 mg PO DAILY [facility] Aspirin (Ecotrin) 81 mg PO DAILY [facility] Last Admin: 10/03/16 10:16 Dose: 81 mg Clonidine HCl (Catapres) 0.3 mg PO TID [facility] Last Admin: 10/03/16 17:56 Dose: 0.3 mg Gabapentin (Neurontin) 300 mg PO BID [facility] Last Admin: 10/03/16 17:56 Dose: 300 mg Heparin Sodium (Porcine) (Heparin) 5,000 units SC Q12 [facility] Last Admin: 10/03/16 22:01 Dose: 5,000 units Hydralazine HCl (Apresoline) 50 mg PO Q8 [facility] Last Admin: 10/04/16 05:48 Dose: 50 mg Insulin Human Regular (Novolin R) 0 unit SC ACHS [facility] PRN Reason: Protocol Last Admin: 10/04/16 08:15 Dose: 6 unit Ketorolac Tromethamine (Toradol) 15 mg IVP Q6 PRN PRN Reason: Pain, severe (8-10) Last Admin: 10/03/16 22:00 Dose: 15 mg Lisinopril (Zestril) 10 mg PO DAILY [facility] Metoclopramide HCl (Reglan) 5 mg PO TID PRN PRN Reason: Nausea/Vomiting Ondansetron HCl (Zofran Inj) 4 mg IVP Q6H PRN PRN Reason: Nausea/Vomiting Last Admin: 10/03/16 13:30 Dose: 4 mg Pantoprazole Sodium (Protonix Ec Tab) 40 mg PO DAILY [facility] Last Admin: 10/03/16 10:16 Dose: 40 mg Sucralfate (Carafate Tab) 1 gm PO BID [facility] Last Admin: 10/03/16 17:56 Dose: 1 gm - Constitutional Appears: Non-toxic, No Acute Distress, Chronically Ill - Head Exam Head Exam: NORMOCEPHALIC - Eye Exam Additional comments: poor vision - ENT Exam ENT Exam: Mucous Membranes Moist - Respiratory Exam Respiratory Exam: Clear to Ausculation Bilateral, NORMAL BREATHING PATTERN - Cardiovascular Exam Cardiovascular Exam: REGULAR RHYTHM, +S1, +S2. absent: Gallop, Rubs - GI/Abdominal Exam GI & Abdominal Exam: Soft, Tenderness (epigastric), Normal Bowel Sounds - Extremities Exam Additional comments: LUE AV fistula bruit present - Neurological Exam Neurological Exam: Alert, Awake, Oriented x3 - Psychiatric Exam Psychiatric exam: Normal Mood - Skin Skin Exam: Intact Assessment and Plan - Assessment and Plan (Free Text) Assessment: Intractable Nausea, Vomiting, Abdominal pain, hx of diabetic gastroparesis -Abdomen obstructive series XRay 09/25: Unremarkable. No evidence of mechanical bowel obstruction. -Metoclopramide 5mg PO TID PRN N/V -Zofran 4mg IVP Q6 PRN N/V -Sucralfate 1gm PO BID -Tylenol 975mg PO Q6 PRN -Toradol 15mg IVP Q6 PRN -Pt urged to stop using marajuana after discharge Elevated WBC -continue to monitor clinically -Culture negative 09/27 ESRD on HD (MW) -Continue HD as scheduled. Dialyzed today. -Nephro-linda 1 tab PO daily -Dr. Quezada consulted, help appreciated. Plan from recent admission with Dr. Farris: Continue with Nephrovite 1 tab/day. PRBC as need for anemia. Not on MOHINI as last Hb 13. He gets epogen 4600 unit with HD as outpatient as Hb there 10.9. Continue with phos binders home dose. BP control with meds as ordered. Pt on RAAS lola as Lisinopril. Glycemic control, Dialysis consistent diet. Further work up/Management as per primary team. Dose meds/antibiotics (if needed) for ESRD status. Avoid fleets enema/magnesium based laxatives. DM with secondary neuropathy -RISS -Accuchecks -Lisinopril 10mg PO daily -ASA 81mg PO daily -Gabapentin 300 PO BID -Pt was on 70/30 25U BID but was told to switch to unknown insulin 15U AC, per pt. -Pt to start Lantus 15U today and DC with Lantus. Pt instructed to follow up with PMD after discharge. Anemia of chronic disease -Continue monitoring HTN -Norvasc 10mg PO daily -Clonidine 0.3mg PO TID -Hydralazine 50mg PO Q8H History of opioid and marajuana use -As per Dr. Chadwick, pt is not to receive any oxycodone -Social work referral for marajuan use Prophylaxis -Protonix 40mg IVP daily -DVT prophylaxis is not indicated at this time, pt is ambulatory Case discussed with Dr. Chadwick. All management as per Dr. Chadwick.
--- NOTE | 2016-10-04 10:25 | HP ---
HISTORY OF PRESENT ILLNESS: The patient presented to the hospital complaining of nausea, vomiting, abdominal pain. The patient has a history of marijuana addiction, , diabetes, and gastritis. The patient is a nonsmoker. PHYSICAL EXAMINATION: GENERAL: The patient is awake, alert, oriented. 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 NECK: Supple. CHEST: Symmetrical. HEART: Regular. ABDOMEN: Soft. EXTREMITIES: No edema. IMPRESSION: Gouty arthritis. The patient will be given bed rest, IV fluids, and symptomatic treatment. Lucero Chadwick MD
[2016-10-04] MEDS: Pantoprazole 40 mg EC Tab PO SCH (10:30)
--- NOTE | 2016-10-04 10:40 | CP.PCM.CON ---
History of Present Illness - History of Present Illness History of Present Illness: 36 y/o male with ESRD on HD MWF, IDDM, diabetic gastroparesis , retinopathy, HTN , multiple hospital admissions for abdominal pain, N&V is admitted for c/o abdominal pain. Pt states that he did not miss any dialysis last wk. Past Patient History - Infectious Disease Hx of Infectious Diseases: None - Past Medical History & Family History Past Medical History?: Yes - Past Social History Smoking Status: Light Smoker < 10 Cigarettes Daily - CARDIAC Hx Congestive Heart Failure: Yes Hx Hypercholesterolemia: Yes Hx Hypertension: Yes Hx Peripheral Edema: Yes - PULMONARY Hx Respiratory Disorders: No - NEUROLOGICAL Hx Neurological Disorder: Yes Other/Comment: Bilateral leg neuropathy - HEENT Hx HEENT Problems: Yes Hx Cataracts: Yes Other/Comment: cataract surgery [facility] 10 years ago - RENAL Hx Chronic Kidney Disease: Yes - ENDOCRINE/METABOLIC Hx Endocrine Disorders: Yes Hx Diabetes Mellitus Type 2: Yes - HEMATOLOGICAL/ONCOLOGICAL Hx Anemia: Yes - INTEGUMENTARY Hx Dermatological Problems: No - MUSCULOSKELETAL/RHEUMATOLOGICAL Hx Falls: No - GASTROINTESTINAL Hx Gastritis: Yes - GENITOURINARY/GYNECOLOGICAL Hx Genitourinary Disorders: No - PSYCHIATRIC Hx Substance Use: Yes (cannabis) - SURGICAL HISTORY Hx Surgeries: Yes Other/Comment: RT.PERMACATH INSERTION 12/30. LT.AV SHUNT CREATION 02/17/16. UNDESCENDED TESTES LT. REMOVED DURING CHILDHOOD - ANESTHESIA Hx Anesthesia: Yes Hx Anesthesia Reactions: No Hx Malignant Hyperthermia: No Meds Home Medications: Home Medication List Medication Instructions Recorded Confirmed Type Acetaminophen [Tylenol 325mg tab] 975 mg PO Q6 PRN tab 10/03/16 Rx Aspirin [Ecotrin] 81 mg PO DAILY 10/03/16 Rx Gabapentin [Neurontin] 300 mg PO BID cap 10/03/16 Rx Gabapentin [Neurontin] 800 mg PO TID tab 10/03/16 Rx Heparin 5,000 units SC Q12 vial 10/03/16 Rx amLODIPine [Norvasc] 10 mg PO DAILY tab 10/03/16 Rx amLODIPine [Norvasc] 10 mg PO DAILY tab 10/03/16 Rx cloNIDine [Catapres] 0.3 mg PO STAT tab 10/03/16 Rx cloNIDine [Catapres] 0.3 mg PO TID tab 10/03/16 Rx hydrALAZINE [Apresoline] 10 mg IVP STAT vial 10/03/16 Rx hydrALAZINE [Apresoline] 50 mg PO Q8 tab 10/03/16 Rx hydrALAZINE [Apresoline] 50 mg PO Q8 tab 10/03/16 Rx Allergies/Adverse Reactions: Allergies Allergy/AdvReac Type Severity Reaction Status Date / Time No Known Allergies Allergy Verified 10/02/16 16:04 - Medications Medications: Current Medications Acetaminophen (Tylenol 325mg Tab) 975 mg PO Q6 PRN PRN Reason: Pain, moderate (4-7) Amlodipine Besylate (Norvasc) 10 mg PO DAILY [facility] Aspirin (Ecotrin) 81 mg PO DAILY [facility] Last Admin: 10/03/16 10:16 Dose: 81 mg Clonidine HCl (Catapres) 0.3 mg PO TID [facility] Last Admin: 10/03/16 17:56 Dose: 0.3 mg Gabapentin (Neurontin) 300 mg PO BID [facility] Last Admin: 10/03/16 17:56 Dose: 300 mg Heparin Sodium (Porcine) (Heparin) 5,000 units SC Q12 [facility] Last Admin: 10/03/16 22:01 Dose: 5,000 units Hydralazine HCl (Apresoline) 50 mg PO Q8 [facility] Last Admin: 10/04/16 05:48 Dose: 50 mg Insulin Human Regular (Novolin R) 0 unit SC ACHS [facility] PRN Reason: Protocol Last Admin: 10/04/16 08:15 Dose: 6 unit Ketorolac Tromethamine (Toradol) 15 mg IVP Q6 PRN PRN Reason: Pain, severe (8-10) Last Admin: 10/03/16 22:00 Dose: 15 mg Lisinopril (Zestril) 10 mg PO DAILY [facility] Metoclopramide HCl (Reglan) 5 mg PO TID PRN PRN Reason: Nausea/Vomiting Ondansetron HCl (Zofran Inj) 4 mg IVP Q6H PRN PRN Reason: Nausea/Vomiting Last Admin: 10/03/16 13:30 Dose: 4 mg Pantoprazole Sodium (Protonix Ec Tab) 40 mg PO DAILY [facility] Last Admin: 10/03/16 10:16 Dose: 40 mg Sucralfate (Carafate Tab) 1 gm PO BID [facility] Last Admin: 10/03/16 17:56 Dose: 1 gm Physical Exam - Constitutional Appears: No Acute Distress - Head Exam Head Exam: ATRAUMATIC, NORMOCEPHALIC - Eye Exam Additional comments: No icterus - ENT Exam ENT Exam: Mucous Membranes Moist - Respiratory Exam Additional comments: Lungs clear - Cardiovascular Exam Cardiovascular Exam: REGULAR RHYTHM - GI/Abdominal Exam GI & Abdominal Exam: Soft Additional comments: Epigastric tenderness No guarding or rebound - Extremities Exam Additional comments: No edema Results - Vital Signs Recent Vital Signs: Last Vital Signs Temp 97.6 F 10/04/16 08:00 Pulse 79 10/04/16 08:00 Resp 20 10/04/16 08:00 BP 166/85 H 10/04/16 08:00 Pulse Ox 98 10/04/16 08:00 - Labs Result Diagrams: 10/02/16 16:39 10/02/16 16:39 Labs: Laboratory Results - last 24 hr 10/03/16 10/03/16 10/03/16 12:16 16:57 21:27 POC Glucose (mg/dL) 350 H 280 H 434 H* 10/04/16 10/04/16 02:47 05:48 POC Glucose (mg/dL) 316 H 327 H Assessment & Plan - Assessment and Plan (Free Text) Assessment: ESRD Abdominal pain HTN IDDM Plan: Labs reviewed Continue HD MWF orders entered
[2016-10-04 11:07] LABS: BASO # 0.1 K/uL (0.0-0.2); BASO % 0.9 % (0.0-2.0); EOS # 0.4 K/uL (0.0-0.7); EOS % 3.8 % (0.0-4.0); HEMATOCRIT 36.5 % (35.0-51.0); LYMPH # 1.3 K/uL (1.0-4.3); LYMPH % 12.1 % (20.0-40.0); MEAN CELL VOLUME 92.5 fL (80.0-94.0); MEAN CORPUSCULAR HEMOGLOBIN 28.9 pg (27.0-31.0); MEAN CORPUSCULAR HGB CONC 31.2 g/dL (33.0-37.0); MEAN PLATELET VOLUME 9.4 fL (7.2-11.7); MONO # 0.9 K/uL (0.0-0.8); MONO % 8.9 % (0.0-10.0); RED CELL DISTRIBUTION WIDTH 15.6 % (11.5-14.5); WHITE BLOOD COUNT 10.5 K/uL (4.8-10.8)
[2016-10-04 11:18] LABS: POTASSIUM 4.8 mmol/L (3.6-5.2)
[2016-10-04 11:20] LABS: BILIRUBIN,TOTAL 0.4 mg/dL (0.2-1.3); TOTAL PROTEIN 6.1 g/dL (6.3-8.3)
[2016-10-04 11:21] LABS: CALCIUM 7.5 mg/dl (8.6-10.4)
[2016-10-04] MEDS ORDERED: (Lantus) Insulin Glargine, Recombinant SC SCH (13:00)
--- NOTE | 2016-10-04 14:24 | PCM.HF ---
Heart Failure Core Measure - Heart Failure Ejection Fraction: 40 % or Greater (EF 60-65%) DANDRE Inhibitor Prescribed: No Contraindication/Reason for not providing: ESRD Beta-Cynthia Prescribed: None Contraindication/Reason for not providing: BP and HR controlled Angiotensin II Receptor Cynthia Prescribed: No Contraindication/Reason for not providing: ESRD AnticoagulationTherapy for Atrial Fibrillation/Atrialflutter: No Contraindication/Reason for not providing: no afib Aldosterone Antagonist Prescribed: No Contraindication/Reason for not providing: renal dysfunction Hydralazine Nitrate Prescribed: Yes Implantable Cardioverter Defibrillator Therapy: No Contraindication/Reason for not providing: EF >40% Cardiac Resynchronization Therapy Prescribed: No Contraindication/Reason for not providing: not indicated - Follow up Will be discharged to: Home Follow Up Date (must be within 7 days from discharge): 10/11/16 Follow Up Time: 09:00
[2016-10-04 17:37] VITALS: TEMP 98.7
[2016-10-04 18:27] VITALS: RESP 18
[2016-10-04 18:36] VITALS: O2SAT 100
[2016-10-04 18:38] VITALS: BP 161/91; PULSE 73
--- NOTE | 2016-10-05 17:45 | CARD ---
APPROVED REPORT EKG Measurement Heart [id number] ID [id number] <Conclusion> Sinus tachycardia Possible Left atrial enlargement Nonspecific T wave abnormality Abnormal ECG
== END 2016-10-04 19:08 | disposition home or self-care (01) ==
LOC: C.ER 15:56 → C.9E 17:10 → C.5T 17:10
PROVIDERS: ADMIT Internal Medicine Pulmonary Disease; ATTEND Internal Medicine Pulmonary Disease
DX: I13.2 Hypertensive heart and chronic kidney disease with heart failure and with stage 5 chronic kidney disease, or end stage renal disease (principal); N18.6 End stage renal disease; I50.9 Heart failure, unspecified; K31.84 Gastroparesis; D63.8 Anemia in other chronic diseases classified elsewhere; Z79.4 Long term (current) use of insulin; Z87.891 Personal history of nicotine dependence; Z99.2 Dependence on renal dialysis
CPT/HCPCS: 36415; 80048; 80053; 82948; 83036; 85025; 93005; 96372; 96374; 96375; 96376; 99285; G0257; G0378; J0360; J1170; J1644; J1885; J2405

== ENCOUNTER 2016-10-14 13:30 | Inpatient (IN) | payer MEDICARE ==
[2016-10-14 13:30] VITALS: BMI 27.0
[2016-10-14 14:14] LABS: BASO # 0.1 K/uL (0.0-0.2); BASO % 0.8 % (0.0-2.0); EOS # 0.1 K/uL (0.0-0.7); EOS % 1.3 % (0.0-4.0); HEMATOCRIT 37.7 % (35.0-51.0); LYMPH # 1.2 K/uL (1.0-4.3); LYMPH % 10.3 % (20.0-40.0); MEAN CORPUSCULAR HEMOGLOBIN 28.4 pg (27.0-31.0); MEAN CORPUSCULAR HGB CONC 31.8 g/dL (33.0-37.0); MEAN PLATELET VOLUME 8.7 fL (7.2-11.7); MONO # 0.9 K/uL (0.0-0.8); NRBC % 0.1 % (0.0-2.0); RED CELL DISTRIBUTION WIDTH 15.8 % (11.5-14.5); WHITE BLOOD COUNT 11.5 K/uL (4.8-10.8)
[2016-10-14 14:20] LABS: MEAN CELL VOLUME 89.3 fL (80.0-94.0)
[2016-10-14 14:23] LABS: BILIRUBIN,TOTAL 0.8 mg/dL (0.2-1.3)
[2016-10-14 14:24] LABS: CALCIUM 8.8 mg/dl (8.6-10.4); TOTAL PROTEIN 7.2 g/dL (6.3-8.3)
[2016-10-14 14:27] LABS: POTASSIUM 3.6 mmol/L (3.6-5.2)
--- NOTE | 2016-10-14 14:50 | C.PDOC ---
History Of Present Illness 36 year old male, with history of hypertension and renal failure, presents to the ED from dialysis center with complaints of abdominal pain and vomiting. He notes he was at dialysis today and completed all but the last 30 minutes when abdominal pain and vomiting began. Patient takes oxycodone for pain but has run out and has been unable to see his doctor for more medication. He denies fever, chest pain, shortness of breath, or other complaints at this time. Time Seen by Provider: 10/14/16 13:39 Chief Complaint (Nursing): Abdominal Pain History Per: Patient History/Exam Limitations: no limitations Onset/Duration Of Symptoms: Hrs (vomiting and abdominal pain beginning during dialysis today ), Intermittent Episodes Current Symptoms Are (Timing): Still Present Location Of Pain/Discomfort: Diffuse Radiation Of Pain To:: None Quality Of Discomfort: "Pain" Associated Symptoms: Nausea, Vomiting. denies: Fever, Chills Recent travel outside of the [place]: No Past Medical History Reviewed: Historical Data, Nursing Documentation, Vital Signs Vital Signs: Last Vital Signs Temp 98.7 F 10/14/16 13:37 Pulse 105 H 10/14/16 14:43 Resp 18 10/14/16 14:43 BP 205/85 H 10/14/16 14:43 Pulse Ox 100 10/14/16 14:59 - Medical History PMH: Anemia, CHF, Diabetes (type I), Gastritis, HTN, Hypercholesterolemia, Peripheral Edema, End Stage Renal Disease, Chronic Kidney Disease - [facility] Procedures BYPASS LEFT BRACHIAL ARTERY TO UPPER ARM VEIN, OPEN APPROACH (02/17/16) EXCISION OF ASCENDING COLON, ENDO, DIAGN (12/19/15) EXCISION OF DUODENUM, ENDO, DIAGN (03/25/16) EXCISION OF LARGE INTESTINE, ENDO, DIAGN (05/06/16) EXCISION OF MIDDLE ESOPHAGUS, ENDO, DIAGN (03/25/16) EXCISION OF STOMACH, ENDO, DIAGN (06/03/16) EXCISION OF TRANSVERSE COLON, ENDO, DIAGN (05/06/16) INSERTION OF INFUSION DEV INTO SUP VENA CAVA, PERC APPROACH (12/19/15) PERFORMANCE OF URINARY FILTRATION, MULTIPLE (09/07/16) PERFORMANCE OF URINARY FILTRATION, SINGLE (06/21/16) REPOSITION LEFT BASILIC VEIN, OPEN APPROACH (05/25/16) ULTRASONOGRAPHY OF SUPERIOR VENA CAVA, GUIDANCE (12/19/15) Family History: States: Unknown Family Hx - Social History Hx Tobacco Use: Yes (some days) Hx Alcohol Use: No Hx Substance Use: Yes (cannabis) - Immunization History Hx Tetanus Toxoid Vaccination: Yes Hx Influenza Vaccination: Yes Hx Pneumococcal Vaccination: Yes Review Of Systems Constitutional: Negative for: Fever, Chills Cardiovascular: Negative for: Chest Pain, Palpitations Respiratory: Negative for: Cough, Shortness of Breath Gastrointestinal: Positive for: Nausea, Vomiting, Abdominal Pain. Negative for : Diarrhea Physical Exam - Physical Exam Appears: Non-toxic, No Acute Distress, Other (Patient appears hydrated ) Skin: Warm, Dry Head: Atraumatic Eye(s): bilateral: Normal Inspection Oral Mucosa: Moist Neck: Supple Chest: Symmetrical, No Deformity Cardiovascular: Rhythm Regular, No Murmur Respiratory: Normal Breath Sounds, No Rales, No Rhonchi, No Wheezing Gastrointestinal/Abdominal: Bowel Sounds (good bowel sounds ), Soft, No Tenderness (non-tender to palptation ), No Distention, No Guarding, No Rebound Extremity: Normal ROM, No Tenderness Neurological/Psych: Oriented x3, Normal Speech, Normal Cognition ED Course And Treatment - Laboratory Results Result Diagrams: 10/14/16 14:08 10/14/16 14:08 Lab Interpretation: No Acute Changes O2 Sat by Pulse Oximetry: 100 (room air ) Pulse Ox Interpretation: Normal Progress Note: Patient was given Pepcid, Zofran, Morphine, and Reglan. Reevaluation Time: 15:34 - Physician Consult Information Physician Contacted: Lucero Chadwick Outcome Of Conversation: He knows the patient well and states that he been admitted for similar episodes several times in the past. He is known to frequently request narcotic pain medication. He agrees to admit for gastroparesis at this time. Disposition - Disposition Disposition: HOSPITALIZED Disposition Time: 15:36 Condition: STABLE - POA Present On Arrival: Poor Glycemic Control - Clinical Impression Clinical Impression: Vomiting, Gastroparesis due to secondary diabetes, ESRD (end stage renal disease) on dialysis - Scribe Statement The provider has reviewed the documentation as recorded by the Scribbrenden Zuniga All medical record entries made by the Scribe were at my direction and personally dictated by me. I have reviewed the chart and agree that the record accurately reflects my personal performance of the history, physical exam, medical decision making, and the department course for this patient. I have also personally directed, reviewed, and agree with the discharge instructions and disposition.
[2016-10-14] MEDS: Dextrose 5%/0.45% NS 1,000 ML IV SCH (22:16)
[2016-10-14] MEDS: (Novolog) Insulin Aspart, Recombinant 100 u/ml 10 ml vial SC SCH (22:17)
[2016-10-15] MEDS: (Novolog) Insulin Aspart, Recombinant 100 u/ml 10 ml vial SC SCH ×4 (08:38→22:05)
--- NOTE | 2016-10-15 11:23 | CP.PCM.CON ---
History of Present Illness - History of Present Illness History of Present Illness: 36 y/o male with ESRD on HD every Mon,Wed,Fri ,HTN,IDDM was admitted yesterday for c/o abdominal pain. Pt was receiving extra dialysis yesterday for volume overload when towards the end of dialysis developed abdominal pain. Dialysis was stopped dafter 3 hrs & Pt was sent to ER Pt appears comfortable. Still c/o abdominal pain. Past Patient History - Infectious Disease Hx of Infectious Diseases: None - Past Medical History & Family History Past Medical History?: Yes - Past Social History Smoking Status: Smoker Currrent Status Unknown - CARDIAC Hx Cardiac Disorders: Yes Hx Congestive Heart Failure: Yes Hx Hypercholesterolemia: Yes Hx Hypertension: Yes Hx Peripheral Edema: Yes - PULMONARY Hx Respiratory Disorders: No - NEUROLOGICAL Hx Neurological Disorder: Yes Other/Comment: Bilateral leg neuropathy - HEENT Hx HEENT Problems: Yes Hx Cataracts: Yes Other/Comment: cataract surgery [facility] 10 years ago - RENAL Hx Chronic Kidney Disease: Yes Date of Last Dialysis Treatment: 10/14/16 - ENDOCRINE/METABOLIC Hx Endocrine Disorders: Yes Hx Diabetes Mellitus Type 2: Yes - HEMATOLOGICAL/ONCOLOGICAL Hx Blood Disorders: Yes Hx Anemia: Yes - INTEGUMENTARY Hx Dermatological Problems: No - MUSCULOSKELETAL/RHEUMATOLOGICAL Hx Musculoskeletal Disorders: No Hx Falls: No - GASTROINTESTINAL Hx Gastritis: Yes Hx Vomiting: Yes - GENITOURINARY/GYNECOLOGICAL Hx Genitourinary Disorders: No - PSYCHIATRIC Hx Psychophysiologic Disorder: Yes Hx Substance Use: Yes (cannabis) - SURGICAL HISTORY Hx Surgeries: Yes Hx Vascular Access Device: Yes Other/Comment: RT.PERMACATH INSERTION 12/30. LT.AV SHUNT CREATION 02/17/16. UNDESCENDED TESTES LT. REMOVED DURING CHILDHOOD - ANESTHESIA Hx Anesthesia: Yes Hx Anesthesia Reactions: No Hx Malignant Hyperthermia: No Meds Allergies/Adverse Reactions: Allergies Allergy/AdvReac Type Severity Reaction Status Date / Time No Known Allergies Allergy Verified 10/02/16 16:04 - Medications Medications: Current Medications Amlodipine Besylate (Norvasc) 10 mg PO DAILY [facility] Last Admin: 10/15/16 10:57 Dose: 10 mg Clonidine HCl (Catapres) 0.3 mg PO TID [facility] Last Admin: 10/15/16 10:46 Dose: 0.3 mg Gabapentin (Neurontin) 300 mg PO TID [facility] Last Admin: 10/15/16 10:46 Dose: 300 mg Heparin Sodium (Porcine) (Heparin) 5,000 units SC Q12 [facility] Last Admin: 10/15/16 10:45 Dose: 5,000 units Hydralazine HCl (Apresoline) 50 mg PO Q8H [facility] Last Admin: 10/15/16 06:12 Dose: 50 mg Dextrose/Sodium Chloride (Dextrose 5%/0.45% Ns 1000 Ml) 1,000 mls @ 40 mls/hr IV .Q24H [facility] Last Admin: 10/14/16 22:16 Dose: 40 mls/hr Insulin Aspart (Novolog) 0 unit SC ACHS [facility] PRN Reason: Protocol Last Admin: 10/15/16 08:38 Dose: 4 unit Ketorolac Tromethamine (Toradol) 30 mg IVP Q8H PRN PRN Reason: Pain, moderate (4-7) Last Admin: 10/15/16 10:21 Dose: 30 mg Ondansetron HCl (Zofran Inj) 4 mg IVP Q6H PRN PRN Reason: Nausea/Vomiting Last Admin: 10/15/16 10:22 Dose: 4 mg Pantoprazole Sodium (Protonix Inj) 40 mg IVP DAILY [facility] Last Admin: 10/15/16 10:23 Dose: 40 mg Physical Exam - Constitutional Appears: No Acute Distress - Head Exam Head Exam: ATRAUMATIC, NORMOCEPHALIC - Eye Exam Additional comments: No icterus - ENT Exam ENT Exam: Mucous Membranes Moist - Respiratory Exam Additional comments: Lungs clear - Cardiovascular Exam Cardiovascular Exam: REGULAR RHYTHM - GI/Abdominal Exam GI & Abdominal Exam: Soft Additional comments: Mild Rt sided tenderness without guarding - Extremities Exam Additional comments: No edema or cyanosis Results - Vital Signs Recent Vital Signs: Last Vital Signs Temp 98.2 F 10/15/16 07:38 Pulse 84 10/15/16 07:38 Resp 20 10/15/16 07:38 BP 174/85 H 10/15/16 07:38 Pulse Ox 97 10/15/16 07:38 - Labs Result Diagrams: 10/14/16 14:08 10/14/16 14:08 Labs: Laboratory Results - last 24 hr 10/14/16 10/15/16 21:48 07:36 POC Glucose (mg/dL) 303 H 332 H Assessment & Plan - Assessment and Plan (Free Text) Assessment: ESRD on maintenance HD Abdominal pain HTN IDDM with complications Plan: Pt is scheduled for scheduled dialysis today Labs stable
[2016-10-15 12:37] LABS: BASO # 0.1 K/uL (0.0-0.2); BASO % 0.9 % (0.0-2.0); EOS # 0.2 K/uL (0.0-0.7); EOS % 2.2 % (0.0-4.0); HEMATOCRIT 34.7 % (35.0-51.0); LYMPH % 9.6 % (20.0-40.0); MEAN CELL VOLUME 89.5 fL (80.0-94.0); MEAN CORPUSCULAR HGB CONC 32.4 g/dL (33.0-37.0); MEAN PLATELET VOLUME 8.8 fL (7.2-11.7); MONO # 1.1 K/uL (0.0-0.8); MONO % 11.4 % (0.0-10.0); PLATELET COUNT 267 K/uL (130-400); RED CELL DISTRIBUTION WIDTH 15.7 % (11.5-14.5); WHITE BLOOD COUNT 10.1 K/uL (4.8-10.8)
[2016-10-15 12:44] LABS: POTASSIUM 3.1 mmol/L (3.6-5.2)
[2016-10-15 12:47] LABS: BILIRUBIN,TOTAL 0.5 mg/dL (0.2-1.3)
[2016-10-15 12:48] LABS: ALB/GLOB RATIO 1.1 (1.0-2.1); CALCIUM 7.6 mg/dl (8.6-10.4); MAGNESIUM 1.8 mg/dL (1.6-2.3); PHOSPHOROUS 5.6 mg/dL (2.5-4.5)
--- NOTE | 2016-10-15 13:02 | CP.PCM.PN ---
Subjective - Date & Time of Evaluation Date of Evaluation: 10/15/16 Time of Evaluation: 16:07 - Subjective Subjective: PGY 2 Medicine Note- Dr. Chadwick's service cc: abdominal pain, nausea and vomiting HPI: 36 year old male with past medical history significant for DM, ESRD on HD MWF, gastroparesis, HLD, CHF presented from the dialysis center on 10/14 with complaints of nausea, vomiting and abdominal pain while completing dialysis yesterday. Patient still had 30 minutes of dialysis to go when it was canceled due to his symptoms. On initial evaluation this morning, patient was nauseous. He vomited soon afterwards. Patient was given zofran which helped. At this time , his nausea and vomiting have resolved. He is now tolerating a renal diet. He denies chest pain, headaches, dizziness, paresthesias, diarrhea, fevers or chills at this time. PMHx: stated above PSHx- unilateral orchiectomy Social: smokes cigarettes for about 20 years, daily marijuana use. Lives with his mother NKDA Meds: See MAR Objective - Vital Signs/Intake and Output Vital Signs (last 24 hours): Temp Pulse Resp BP Pulse Ox 98.2 F 84 20 174/85 H 97 10/15/16 07:38 10/15/16 07:38 10/15/16 07:38 10/15/16 07:38 10/15/16 07:38 Intake and Output: 10/15/16 10/15/16 06:59 18:59 Intake Total 200 330 Output Total 0 0 Balance 200 330 - Medications Medications: Current Medications Amlodipine Besylate (Norvasc) 10 mg PO DAILY [facility] Last Admin: 10/15/16 10:57 Dose: 10 mg Clonidine HCl (Catapres) 0.3 mg PO TID [facility] Last Admin: 10/15/16 10:46 Dose: 0.3 mg Gabapentin (Neurontin) 300 mg PO TID [facility] Last Admin: 10/15/16 10:46 Dose: 300 mg Heparin Sodium (Porcine) (Heparin) 5,000 units SC Q12 [facility] Last Admin: 10/15/16 10:45 Dose: 5,000 units Hydralazine HCl (Apresoline) 50 mg PO Q8H [facility] Last Admin: 10/15/16 06:12 Dose: 50 mg Dextrose/Sodium Chloride (Dextrose 5%/0.45% Ns 1000 Ml) 1,000 mls @ 40 mls/hr IV .Q24H [facility] Last Admin: 10/14/16 22:16 Dose: 40 mls/hr Insulin Aspart (Novolog) 0 unit SC ACHS [facility] PRN Reason: Protocol Last Admin: 10/15/16 11:46 Dose: Not Given Ketorolac Tromethamine (Toradol) 30 mg IVP Q8H PRN PRN Reason: Pain, moderate (4-7) Last Admin: 10/15/16 10:21 Dose: 30 mg Ondansetron HCl (Zofran Inj) 4 mg IVP Q6H PRN PRN Reason: Nausea/Vomiting Last Admin: 10/15/16 10:22 Dose: 4 mg Pantoprazole Sodium (Protonix Inj) 40 mg IVP DAILY [facility] Last Admin: 10/15/16 10:23 Dose: 40 mg - Labs Labs: 10/15/16 12:32 10/15/16 12:32 - Constitutional Appears: Non-toxic, No Acute Distress - Head Exam Head Exam: ATRAUMATIC, NORMAL INSPECTION, NORMOCEPHALIC - Eye Exam Eye Exam: EOMI, Normal appearance, PERRL Pupil Exam: NORMAL ACCOMODATION - ENT Exam ENT Exam: Mucous Membranes Moist - Neck Exam Neck Exam: Full ROM - Respiratory Exam Respiratory Exam: NORMAL BREATHING PATTERN. absent: Wheezes - Cardiovascular Exam Cardiovascular Exam: +S1, +S2 - GI/Abdominal Exam GI & Abdominal Exam: Soft, Normal Bowel Sounds - Extremities Exam Extremities Exam: Full ROM - Back Exam Back Exam: Full ROM - Neurological Exam Neurological Exam: Alert, Awake, Normal Gait, Oriented x3 - Psychiatric Exam Psychiatric exam: Flat Affect, Normal Affect - Skin Skin Exam: Dry, Rash (posterior midline back), Warm Assessment and Plan - Assessment and Plan (Free Text) Assessment: Intractable abd pain, N/V - Likely secondary to gastroparesis vs. continuous cyclic marijuana syndrome . Check UDS. Patient counseling services warranted regarding continued excessive use of marijuana. -Zofran PRN - Tolerating renal diet - toradol prn for pain. Dose adjusted for renal clearance DM - HGBA1c is 6.9 in 04/2016. Recheck A1c - ISS - Accuchecks Diabetic neuropathy - Continue Gabapentin 300 mg po TID ESRD on HD MWF - will continue HD while pt is in hospital. Dialyzed Will, 10/15 - Renal Diet as tolerated -Continue Nephro-linda - Nephrology, Dr. Quezada is consulted -F/U recommendations HLD - Continue Crestor. Dose adjusted for renal clearance HTN - Continue Hydralazine, lisinopril, Norvasc - will continue to monitor vital signs Prophylaxis - Protonix - Heparin -SCDs All orders and management per Dr. Chadwick
[2016-10-15 13:06] LABS: EOSINOPHIL 2 % (0-4); NEUTROPHIL 73 % (50-75); TOTAL CELLS COUNTED 100
[2016-10-15] MEDS ORDERED: Potassium Chloride 20 mEq/15 ml LIQ UD PO ONE ×2 (15:30→17:15)
[2016-10-15] MEDS: Dextrose 5%/0.45% NS 1,000 ML IV SCH (21:39)
[2016-10-16] MEDS: (Novolog) Insulin Aspart, Recombinant 100 u/ml 10 ml vial SC SCH ×4 (08:33→22:39)
[2016-10-16] MEDS: Multivitamin Vitamin B Complex (Nephro-Vite) Tab PO SCH (08:33)
--- NOTE | 2016-10-16 16:43 | CP.PCM.PN ---
Subjective - Date & Time of Evaluation Date of Evaluation: 10/16/16 Time of Evaluation: 16:40 - Subjective Subjective: Follow up Nephrology Consultation Note Assessment: Stable Diabetic chronic Kidney Disease (E11.22) Hypertensive Chronic Kidney Disease (I12.0) End stage renal disease (N18.6) dependence on hemodialysis (Z99.2) (MWF) via AVF Anemia (D64.9), Hyperphosphatemia (E83.39), Secondary Hyperparathyroidism (E21.1 ), HTN (I12.0) Hypokalemia Plan: No acute need for dialysis today. Will plan for dialysis tuesday. Continue with Nephrovite 1 tab/day. PRBC as needed for anemia. not on MOHINI as last Hb 11.3 Continue with phos binders Continue with calcitriol 0.25 mcg with dialysis. Last PTH level 382. BP control with meds as ordered. Patient on RAAS lola, will add losartan Glycemic control, Dialysis consistent diet Further work up/management as per primary team Dose meds/antibiotics (if needed) for ESRD status. Avoid fleets enema/magnesium based laxatives. consider GI eval Thanks for allowing me to participate in care of your patient. Will follow patient with you. Please call if any Qs Dr Brenton Larsen Office: [phone] Subjective: Noted events overnight. Patients c/o upper abdomen pain with nausea/ vomitting Denies chest pain, palpitation, shortness of breath, leg swelling. No urinary complaints Physical Examination: General Appearance: Comfortable, in no acute respiratory distress, co- operative. Vitals reviewed and noted as below Lungs: Normal respiratory rate/effort. Breath sounds bilateral equal and clear Heart: Normal rate. s1s2 normal. No rub or gallop. Extremities: no edema. Neurological: Patient is alert, awake and oriented to person, place and time. No focal deficit. Strength bilateral appropriate and equal Skin: Warm and dry. Normal turgor. No rash. Palpitation: Normal elasticity for age Abdomen: Abdomen is soft. Bowel sounds +. There is upper abdominal tenderness, no guarding/rigidity or organomegaly : kidney or bladder not palpable Access: AVF Labs/imaging reviewed. Past medical history, past surgical history, family history, social history, allergy reviewed Objective - Vital Signs/Intake and Output Vital Signs (last 24 hours): Temp Pulse Resp BP Pulse Ox 98.0 F 77 20 169/86 H 97 10/16/16 07:20 10/16/16 07:20 10/16/16 07:20 10/16/16 07:20 10/16/16 07:20 - Medications Medications: Current Medications Amlodipine Besylate (Norvasc) 10 mg PO DAILY [facility] Last Admin: 10/16/16 10:23 Dose: 10 mg Clonidine HCl (Catapres) 0.3 mg PO TID [facility] Last Admin: 10/16/16 14:24 Dose: 0.3 mg Gabapentin (Neurontin) 300 mg PO TID [facility] Last Admin: 10/16/16 14:24 Dose: 300 mg Heparin Sodium (Porcine) (Heparin) 5,000 units SC Q12 [facility] Last Admin: 10/16/16 10:14 Dose: 5,000 units Hydralazine HCl (Apresoline) 50 mg PO Q8H [facility] Last Admin: 10/16/16 14:24 Dose: 50 mg Insulin Aspart (Novolog) 0 unit SC ACHS [facility] PRN Reason: Protocol Last Admin: 10/16/16 12:12 Dose: 12 unit Ketorolac Tromethamine (Toradol) 30 mg IVP Q8H PRN PRN Reason: Pain, moderate (4-7) Last Admin: 10/16/16 14:25 Dose: 30 mg Losartan Potassium (Cozaar) 50 mg PO DAILY [facility] Ondansetron HCl (Zofran Inj) 4 mg IVP Q6H PRN PRN Reason: Nausea/Vomiting Last Admin: 10/16/16 10:14 Dose: 4 mg Pantoprazole Sodium (Protonix Inj) 40 mg IVP DAILY [facility] Last Admin: 10/16/16 10:13 Dose: 40 mg Vitamin B Complex/Vit C/Folic Acid (Nephro-Yomi) 1 tab PO 0800 [facility] Last Admin: 10/16/16 08:33 Dose: 1 tab
[2016-10-17] MEDS: (Novolog) Insulin Aspart, Recombinant 100 u/ml 10 ml vial SC SCH ×4 (07:29→22:01)
[2016-10-17] MEDS: Multivitamin Vitamin B Complex (Nephro-Vite) Tab PO SCH (08:33)
--- NOTE | 2016-10-17 14:46 | CP.PCM.PN ---
Subjective - Date & Time of Evaluation Date of Evaluation: 10/17/16 Time of Evaluation: 14:46 - Subjective Subjective: Follow up Nephrology Consultation Note Assessment: Stable Diabetic chronic Kidney Disease (E11.22) Hypertensive Chronic Kidney Disease (I12.0) End stage renal disease (N18.6) dependence on hemodialysis (Z99.2) (MWF) via AVF Anemia (D64.9), Hyperphosphatemia (E83.39), Secondary Hyperparathyroidism (E21.1 ), HTN (I12.0) Hypokalemia Plan: No acute need for dialysis today. Will plan for dialysis tuesday. Continue with Nephrovite 1 tab/day. PRBC as needed for anemia. not on MOHINI as last Hb 11.3 Continue with phos binders Continue with calcitriol 0.25 mcg with dialysis. Last PTH level 382. BP control with meds as ordered. Patient on RAAS lola, will add losartan Glycemic control, Dialysis consistent diet Further work up/management as per primary team Dose meds/antibiotics (if needed) for ESRD status. Avoid fleets enema/magnesium based laxatives. consider GI eval Thanks for allowing me to participate in care of your patient. Will follow patient with you. Please call if any Qs Dr Brenton Larsen Office: [phone] Subjective: Noted events overnight. Patients c/o upper abdomen pain but better with nausea/vomitting Denies chest pain, palpitation, shortness of breath, leg swelling. No urinary complaints. sugar high Physical Examination: General Appearance: Comfortable, in no acute respiratory distress, co- operative. Vitals reviewed and noted as below Lungs: Normal respiratory rate/effort. Breath sounds bilateral equal and clear Heart: Normal rate. s1s2 normal. No rub or gallop. Extremities: no edema. Neurological: Patient is alert, awake and oriented to person, place and time. No focal deficit. Strength bilateral appropriate and equal Skin: Warm and dry. Normal turgor. No rash. Palpitation: Normal elasticity for age Abdomen: Abdomen is soft. Bowel sounds +. There is mild upper abdominal tenderness, no guarding/rigidity or organomegaly : kidney or bladder not palpable Access: AVF Labs/imaging reviewed. Past medical history, past surgical history, family history, social history, allergy reviewed Objective - Vital Signs/Intake and Output Vital Signs (last 24 hours): Temp Pulse Resp BP Pulse Ox 98 F 83 20 123/74 98 10/17/16 08:08 10/17/16 08:08 10/17/16 08:08 10/17/16 08:08 10/17/16 08:08 Intake and Output: 10/17/16 10/17/16 06:59 18:59 Intake Total 320 Balance 320 - Medications Medications: Current Medications Amlodipine Besylate (Norvasc) 10 mg PO DAILY [facility] Last Admin: 10/17/16 10:56 Dose: 10 mg Calcitriol (Rocaltrol) 0.25 mcg PO MWF [facility] Clonidine HCl (Catapres) 0.3 mg PO TID [facility] Last Admin: 10/17/16 13:28 Dose: Not Given Gabapentin (Neurontin) 300 mg PO TID [facility] Last Admin: 10/17/16 13:28 Dose: 300 mg Heparin Sodium (Porcine) (Heparin) 5,000 units SC Q12 [facility] Last Admin: 10/17/16 10:57 Dose: 5,000 units Hydralazine HCl (Apresoline) 50 mg PO Q8H [facility] Last Admin: 10/17/16 13:28 Dose: 50 mg Insulin Aspart (Novolog) 0 unit SC ACHS [facility] PRN Reason: Protocol Last Admin: 10/17/16 13:24 Dose: 6 unit Ketorolac Tromethamine (Toradol) 30 mg IVP Q8 PRN PRN Reason: Pain, severe (8-10) Losartan Potassium (Cozaar) 50 mg PO DAILY [facility] Last Admin: 10/17/16 10:56 Dose: 50 mg Ondansetron HCl (Zofran Inj) 4 mg IVP Q6H PRN PRN Reason: Nausea/Vomiting Last Admin: 10/17/16 10:57 Dose: 4 mg Pantoprazole Sodium (Protonix Inj) 40 mg IVP DAILY [facility] Last Admin: 10/17/16 10:57 Dose: 40 mg Vitamin B Complex/Vit C/Folic Acid (Nephro-Yomi) 1 tab PO 0800 [facility] Last Admin: 10/17/16 08:33 Dose: 1 tab
[2016-10-18] MEDS: Multivitamin Vitamin B Complex (Nephro-Vite) Tab PO SCH (08:35)
[2016-10-18] MEDS: (Novolog) Insulin Aspart, Recombinant 100 u/ml 10 ml vial SC SCH ×4 (08:35→22:34)
--- NOTE | 2016-10-18 12:33 | CP.PCM.PN ---
Subjective - Date & Time of Evaluation Date of Evaluation: 10/18/16 Time of Evaluation: 12:32 - Subjective Subjective: Follow up Nephrology Consultation Note Assessment: Stable Diabetic chronic Kidney Disease (E11.22) Hypertensive Chronic Kidney Disease (I12.0) End stage renal disease (N18.6) dependence on hemodialysis (Z99.2) (MWF) via AVF Anemia (D64.9), Hyperphosphatemia (E83.39), Secondary Hyperparathyroidism (E21.1 ), HTN (I12.0) Hypokalemia recurrent nausea/vomitting Plan: for dialysis today. Continue with Nephrovite 1 tab/day. PRBC as needed for anemia. not on MOHINI as last Hb 11.3 Continue with phos binders Continue with calcitriol 0.25 mcg with dialysis. Last PTH level 382. BP control with meds as ordered. Patient on RAAS lola, will add losartan Glycemic control, Dialysis consistent diet Further work up/management as per primary team Dose meds/antibiotics (if needed) for ESRD status. Avoid fleets enema/magnesium based laxatives. consider GI eval and or reglan as prokinetic ? diabetic gastroparesis as the cause Thanks for allowing me to participate in care of your patient. Will follow patient with you. Please call if any Qs Dr Brenton Larsen Office: [phone] Subjective: Noted events overnight. Patients c/o upper abdomen pain but better with nausea/vomitting Denies chest pain, palpitation, shortness of breath, leg swelling. No urinary complaints. sugar high Physical Examination: seen during HD, tolerating well General Appearance: Comfortable, in no acute respiratory distress, co- operative. Vitals reviewed and noted as below Lungs: Normal respiratory rate/effort. Breath sounds bilateral equal and clear Heart: Normal rate. s1s2 normal. No rub or gallop. Extremities: no edema. Neurological: Patient is alert, awake and oriented to person, place and time. No focal deficit. Strength bilateral appropriate and equal Skin: Warm and dry. Normal turgor. No rash. Palpitation: Normal elasticity for age Abdomen: Abdomen is soft. Bowel sounds +. There is mild upper abdominal tenderness, no guarding/rigidity or organomegaly : kidney or bladder not palpable Access: AVF Labs/imaging reviewed. Past medical history, past surgical history, family history, social history, allergy reviewed Objective - Vital Signs/Intake and Output Vital Signs (last 24 hours): Temp Pulse Resp BP Pulse Ox 98.2 F 110 H 16 150/75 98 10/18/16 08:40 10/18/16 08:40 10/18/16 08:40 10/18/16 11:40 10/18/16 08:40 Intake and Output: 10/18/16 10/18/16 06:59 18:59 Intake Total 240 Balance 240 - Medications Medications: Current Medications Amlodipine Besylate (Norvasc) 10 mg PO DAILY [facility] Last Admin: 10/18/16 10:51 Dose: Not Given Calcitriol (Rocaltrol) 0.25 mcg PO MWF [facility] Last Admin: 10/18/16 08:35 Dose: 0.25 mcg Clonidine HCl (Catapres) 0.3 mg PO TID [facility] Last Admin: 10/18/16 10:50 Dose: Not Given Gabapentin (Neurontin) 300 mg PO TID [facility] Last Admin: 10/18/16 11:20 Dose: 300 mg Hydralazine HCl (Apresoline) 50 mg PO Q8H [facility] Last Admin: 10/18/16 05:36 Dose: Not Given Insulin Aspart (Novolog) 0 unit SC ACHS [facility] PRN Reason: Protocol Last Admin: 10/18/16 12:14 Dose: 4 unit Ketorolac Tromethamine (Toradol) 30 mg IVP Q8 PRN PRN Reason: Pain, severe (8-10) Last Admin: 10/18/16 08:53 Dose: 30 mg Losartan Potassium (Cozaar) 50 mg PO DAILY [facility] Last Admin: 10/18/16 10:51 Dose: Not Given Ondansetron HCl (Zofran Inj) 4 mg IVP Q6H PRN PRN Reason: Nausea/Vomiting Last Admin: 10/18/16 11:20 Dose: 4 mg Pantoprazole Sodium (Protonix Inj) 40 mg IVP DAILY [facility] Last Admin: 10/18/16 11:20 Dose: 40 mg Vitamin B Complex/Vit C/Folic Acid (Nephro-Yomi) 1 tab PO 0800 [facility] Last Admin: 10/18/16 08:35 Dose: 1 tab
[2016-10-18 16:44] VITALS: RESP 20
[2016-10-19 01:23] VITALS: O2SAT 96
[2016-10-19] MEDS: (Novolog) Insulin Aspart, Recombinant 100 u/ml 10 ml vial SC SCH ×2 (07:39→12:43)
[2016-10-19] MEDS: Multivitamin Vitamin B Complex (Nephro-Vite) Tab PO SCH (07:39)
[2016-10-19 07:42] VITALS: TEMP 98
--- NOTE | 2016-10-19 09:30 | CP.PCM.PN ---
Subjective - Date & Time of Evaluation Date of Evaluation: 10/19/16 Time of Evaluation: 07:05 - Subjective Subjective: PGY2 Resident - Medicine Progress Note Patient has decided to leave the hospital against medical advice. The patient is competent and understands the risks of leaving, including permanent disability and/or , and has had an opportunity to ask questions about his condition(s). Patient accepts all risk and liability. Paper work filed. Attending Dr. Chadwick notified by RN and Resident. The patient has been informed that he/she may return for care at any time, and patient will follow-up with PMD urgently. A script was provided with the following BP medications: Norvasc) 10 mg PO DAILY [facility] Clonidine HCl (Catapres) 0.3 mg PO TID [facility] Hydralazine HCl (Apresoline) 50 mg PO Q8H [facility] Losartan Potassium (Cozaar) 50 mg PO DAILY [facility] Patient admits his blood sugar is better controlled when home. During his hospital stay, he has been constantly in the 400-500s 2/2 snacking from the nursing station refrigerator, despite being advised not to. He is aware of the risks of leaving with a blood glucose over approximately 500. He states he is going directly to his PMD's office. Objective - Vital Signs/Intake and Output Vital Signs (last 24 hours): Temp Pulse Resp BP Pulse Ox 98 F 76 20 157/78 H 96 10/19/16 07:41 10/19/16 07:41 10/19/16 07:41 10/19/16 07:41 10/19/16 07:41 Intake and Output: 10/19/16 10/19/16 06:59 18:59 Intake Total 1000 Balance 1000 - Medications Medications: Current Medications Amlodipine Besylate (Norvasc) 10 mg PO DAILY [facility] Last Admin: 10/18/16 10:51 Dose: Not Given Calcitriol (Rocaltrol) 0.25 mcg PO MWF [facility] Last Admin: 10/18/16 08:35 Dose: 0.25 mcg Clonidine HCl (Catapres) 0.3 mg PO TID [facility] Last Admin: 10/18/16 17:25 Dose: 0.3 mg Gabapentin (Neurontin) 300 mg PO TID [facility] Last Admin: 10/18/16 17:25 Dose: 300 mg Hydralazine HCl (Apresoline) 50 mg PO Q8H [facility] Last Admin: 10/19/16 05:41 Dose: 50 mg Insulin Aspart (Novolog) 0 unit SC ACHS [facility] PRN Reason: Protocol Last Admin: 10/19/16 07:39 Dose: 12 unit Insulin Glargine (Lantus) 15 unit SC DAILY [facility] Ketorolac Tromethamine (Toradol) 30 mg IVP Q8 PRN PRN Reason: Pain, severe (8-10) Last Admin: 10/19/16 05:45 Dose: 30 mg Losartan Potassium (Cozaar) 50 mg PO DAILY [facility] Last Admin: 10/18/16 10:51 Dose: Not Given Ondansetron HCl (Zofran Inj) 4 mg IVP Q6H PRN PRN Reason: Nausea/Vomiting Last Admin: 10/18/16 11:20 Dose: 4 mg Pantoprazole Sodium (Protonix Inj) 40 mg IVP DAILY [facility] Last Admin: 10/18/16 11:20 Dose: 40 mg Vitamin B Complex/Vit C/Folic Acid (Nephro-Linda) 1 tab PO 0800 [facility] Last Admin: 10/19/16 07:39 Dose: 1 tab - Additional Findings Additional findings: - Constitutional Appears: Non-toxic, No Acute Distress - Head Exam Head Exam: ATRAUMATIC, NORMAL INSPECTION, NORMOCEPHALIC - Eye Exam Eye Exam: EOMI, Normal appearance, PERRL Pupil Exam: NORMAL ACCOMODATION - ENT Exam ENT Exam: Mucous Membranes Moist - Neck Exam Neck Exam: Full ROM - Respiratory Exam Respiratory Exam: NORMAL BREATHING PATTERN. absent: Wheezes - Cardiovascular Exam Cardiovascular Exam: +S1, +S2 - GI/Abdominal Exam GI & Abdominal Exam: Soft, Normal Bowel Sounds - Extremities Exam Extremities Exam: Full ROM - Back Exam Back Exam: Full ROM - Neurological Exam Neurological Exam: Alert, Awake, Normal Gait, Oriented x3 - Psychiatric Exam Psychiatric exam: Flat Affect, Normal Affect - Skin Skin Exam: Dry, Rash (posterior midline back), Warm Assessment and Plan - Assessment and Plan (Free Text) Assessment: Intractable abd pain, N/V 10/19: patient leaving AMA - Likely secondary to gastroparesis vs. continuous cyclic marijuana syndrome . Check UDS. Patient counseling services warranted regarding continued excessive use of marijuana. -Zofran PRN - Tolerating renal diet - toradol prn for pain. Dose adjusted for renal clearance DM 10/19: gluc > 500 -> restarted patients home lantus 15u qd. Patient also received Novolog 8u 2/2 persistently elevated finger stick glucose in the 's. Shortly after, patient left AMA, with a final finger stick glucose of 495. - HGBA1c is 6.9 in 04/2016. Recheck A1c - 9.9 - ISS - Accuchecks Diabetic neuropathy - Continue Gabapentin 300 mg po TID ESRD on HD MWF - will continue HD while pt is in hospital. Dialyzed Tuesday, 10/15 - Renal Diet as tolerated -Continue Nephro-linda - Nephrology, Dr. Quezada is consulted -F/U recommendations HLD - Continue Crestor. Dose adjusted for renal clearance HTN - Continue Hydralazine, lisinopril, Norvasc - will continue to monitor vital signs Prophylaxis - Protonix - Heparin -SCDs All orders and management per Dr. Chadwick
[2016-10-19] MEDS ORDERED: (Lantus) Insulin Glargine, Recombinant SC SCH (10:00)
[2016-10-19 10:45] LABS: BASO # 0.1 K/uL (0.0-0.2); BASO % 0.3 % (0.0-2.0); EOS # 0.3 K/uL (0.0-0.7); HEMATOCRIT 32.4 % (35.0-51.0); LYMPH # 0.7 K/uL (1.0-4.3); LYMPH % 4.3 % (20.0-40.0); MEAN CELL VOLUME 92.4 fL (80.0-94.0); MEAN CORPUSCULAR HEMOGLOBIN 28.1 pg (27.0-31.0); MEAN CORPUSCULAR HGB CONC 30.5 g/dL (33.0-37.0); MEAN PLATELET VOLUME 10.2 fL (7.2-11.7); MONO # 2.4 K/uL (0.0-0.8); MONO % 15.2 % (0.0-10.0); PLATELET COUNT 205 K/uL (130-400); RED CELL DISTRIBUTION WIDTH 15.9 % (11.5-14.5); WHITE BLOOD COUNT 15.8 K/uL (4.8-10.8)
[2016-10-19 11:11] LABS: NEUTROPHIL 75 % (50-75); TOTAL CELLS COUNTED 100
[2016-10-19 11:12] LABS: LARGE PLATELETS PRESENT
[2016-10-19 11:14] LABS: ALB/GLOB RATIO 0.9 (1.0-2.1); BILIRUBIN,TOTAL 0.4 mg/dL (0.2-1.3); CALCIUM 8.4 mg/dl (8.6-10.4); MAGNESIUM 1.7 mg/dL (1.6-2.3); PHOSPHOROUS 4.6 mg/dL (2.5-4.5); TOTAL PROTEIN 6.2 g/dL (6.3-8.3)
--- NOTE | 2016-10-19 11:25 | CP.PCM.PN ---
Subjective - Date & Time of Evaluation Date of Evaluation: 10/19/16 Time of Evaluation: 11:00 - Subjective Subjective: C/o feeling nauseous & weak. Objective - Vital Signs/Intake and Output Vital Signs (last 24 hours): Temp Pulse Resp BP Pulse Ox 98 F 76 20 157/78 H 96 10/19/16 07:41 10/19/16 07:41 10/19/16 07:41 10/19/16 07:41 10/19/16 07:41 Intake and Output: 10/19/16 10/19/16 06:59 18:59 Intake Total 1000 Balance 1000 - Medications Medications: Current Medications Amlodipine Besylate (Norvasc) 10 mg PO DAILY [facility] Last Admin: 10/19/16 10:54 Dose: 10 mg Calcitriol (Rocaltrol) 0.25 mcg PO MWF [facility] Last Admin: 10/18/16 08:35 Dose: 0.25 mcg Clonidine HCl (Catapres) 0.3 mg PO TID [facility] Last Admin: 10/19/16 10:55 Dose: 0.3 mg Gabapentin (Neurontin) 300 mg PO TID [facility] Last Admin: 10/19/16 10:55 Dose: 300 mg Hydralazine HCl (Apresoline) 50 mg PO Q8H [facility] Last Admin: 10/19/16 05:41 Dose: 50 mg Insulin Aspart (Novolog) 0 unit SC ACHS [facility] PRN Reason: Protocol Last Admin: 10/19/16 07:39 Dose: 12 unit Insulin Glargine (Lantus) 15 unit SC DAILY [facility] Last Admin: 10/19/16 10:53 Dose: 15 units Ketorolac Tromethamine (Toradol) 30 mg IVP Q8 PRN PRN Reason: Pain, severe (8-10) Last Admin: 10/19/16 05:45 Dose: 30 mg Losartan Potassium (Cozaar) 50 mg PO DAILY [facility] Last Admin: 10/19/16 10:55 Dose: 50 mg Ondansetron HCl (Zofran Inj) 4 mg IVP Q6H PRN PRN Reason: Nausea/Vomiting Last Admin: 10/19/16 10:55 Dose: 4 mg Pantoprazole Sodium (Protonix Inj) 40 mg IVP DAILY [facility] Last Admin: 10/19/16 10:55 Dose: 40 mg Vitamin B Complex/Vit C/Folic Acid (Nephro-Yomi) 1 tab PO 0800 [facility] Last Admin: 10/19/16 07:39 Dose: 1 tab - Labs Labs: 10/19/16 10:39 - Respiratory Exam Additional comments: Lungs clear - Cardiovascular Exam Cardiovascular Exam: REGULAR RHYTHM - GI/Abdominal Exam GI & Abdominal Exam: Soft Additional comments: Subjective diffuse tenderness - Extremities Exam Additional comments: No edema Assessment and Plan - Assessment and Plan (Free Text) Assessment: ESRD Leukocytosis. Source unclear Abdominal pain Uncontrolled DM because of noncompliance with diet Plan: Stable on dialysis continue HD MWF Blood cultures because of significant leukocytosis
[2016-10-19] MEDS ORDERED: (Novolog) Insulin Aspart, Recombinant 100 u/ml 10 ml vial SC STA (13:22)
[2016-10-19 16:40] VITALS: BP 163/76; PULSE 96
--- NOTE | 2016-10-20 10:07 | HP ---
HISTORY OF PRESENT ILLNESS: A 36-year-old male with history of diabetes, renal failure, chronic marijuana addiction, admitted to the hospital with chief complaint of progressive weakness with nausea and vomiting. The patient came to the ER advised admission, with history as mentioned above. PHYSICAL EXAMINATION: GENERAL: The patient is awake, alert, in no apparent distress. VITAL SIGNS: Temperature 98, pulse 90. HEENT: Within normal limits. NECK: Supple. CHEST: Symmetrical. HEART: Regular. ABDOMEN: Soft. EXTREMITIES: No edema. IMPRESSION: The patient gastritis, diabetic gastroparesis, chronic marijuana abuse. He will receive supportive care and IV hydration. Lucero Chadwick MD
== END 2016-10-19 14:15 | disposition left against medical advice (07) | DRG 73 ==
LOC: C.ER 13:30 → C.3T 15:37 → OBSVTOIN 10-16 14:21
PROVIDERS: ADMIT Internal Medicine Pulmonary Disease; ATTEND Internal Medicine Pulmonary Disease
PROC: 5A1D00Z (ICD-10-PCS; principal; 2016-10-15)
DX: E11.43 Type 2 diabetes mellitus with diabetic autonomic (poly)neuropathy (principal); N18.6 End stage renal disease; I13.2 Hypertensive heart and chronic kidney disease with heart failure and with stage 5 chronic kidney disease, or end stage renal disease; N25.81 Secondary hyperparathyroidism of renal origin; D72.829 Elevated white blood cell count, unspecified; K31.84 Gastroparesis; F17.210 Nicotine dependence, cigarettes, uncomplicated; I50.9 Heart failure, unspecified; F12.10 Cannabis abuse, uncomplicated; E87.6 Hypokalemia; E78.5 Hyperlipidemia, unspecified; D64.9 Anemia, unspecified; Z79.4 Long term (current) use of insulin; Z91.11 Patient's noncompliance with dietary regimen; Z99.2 Dependence on renal dialysis

== ENCOUNTER 2016-10-22 12:15 | Inpatient (IN) | payer MEDICARE, MEDICAID ==
[2016-10-22 12:16] VITALS: BMI 27.0
--- NOTE | 2016-10-22 13:36 | C.PDOC ---
History Of Present Illness 36 yr old male presents to the ER with complaints of chronic abdominal pain, vomiting and diarrhea sine 5am this morning. Patient recently signed out AMA few days ago for similar symptoms. Patient also states he has not been taking his medicine due to cost. Patient denies fever, chills, chest pain, SOB, weakness or numbness. Time Seen by Provider: 10/22/16 12:19 Chief Complaint (Nursing): GI Problem History/Exam Limitations: no limitations Onset/Duration Of Symptoms: Sudden Onset (5am this morning) Past Medical History Reviewed: Historical Data, Nursing Documentation, Vital Signs Vital Signs: Last Vital Signs Temp 97.4 F L 10/26/16 08:43 Pulse 80 10/26/16 08:50 Resp 11 L 10/26/16 08:50 BP 167/98 H 10/26/16 08:50 Pulse Ox 100 10/26/16 08:50 - Medical History PMH: Anemia, CHF, Diabetes (type I), Gastritis, HTN, Hypercholesterolemia, Peripheral Edema, End Stage Renal Disease, Chronic Kidney Disease - [facility] Procedures BYPASS LEFT BRACHIAL ARTERY TO UPPER ARM VEIN, OPEN APPROACH (02/17/16) EXCISION OF ASCENDING COLON, ENDO, DIAGN (12/19/15) EXCISION OF DUODENUM, ENDO, DIAGN (03/25/16) EXCISION OF LARGE INTESTINE, ENDO, DIAGN (05/06/16) EXCISION OF MIDDLE ESOPHAGUS, ENDO, DIAGN (03/25/16) EXCISION OF STOMACH, ENDO, DIAGN (06/03/16) EXCISION OF TRANSVERSE COLON, ENDO, DIAGN (05/06/16) INSERTION OF INFUSION DEV INTO SUP VENA CAVA, PERC APPROACH (12/19/15) PERFORMANCE OF URINARY FILTRATION, MULTIPLE (09/07/16) PERFORMANCE OF URINARY FILTRATION, SINGLE (10/16/16) REPOSITION LEFT BASILIC VEIN, OPEN APPROACH (05/25/16) ULTRASONOGRAPHY OF SUPERIOR VENA CAVA, GUIDANCE (12/19/15) Family History: States: No Known Family Hx - Social History Hx Tobacco Use: Yes (some days) Hx Alcohol Use: No Hx Substance Use: Yes (cannabis) - Immunization History Hx Tetanus Toxoid Vaccination: Yes Hx Influenza Vaccination: Yes Hx Pneumococcal Vaccination: Yes Review Of Systems Except As Marked, All Systems Reviewed And Found Negative. Constitutional: Negative for: Fever, Chills Cardiovascular: Negative for: Chest Pain Respiratory: Negative for: Shortness of Breath Gastrointestinal: Positive for: Vomiting, Abdominal Pain, Diarrhea Neurological: Negative for: Weakness, Numbness Physical Exam - Physical Exam Appears: No Acute Distress, Chronically Ill Skin: Warm, Dry, No Rash Head: Atraumatic, Normacephalic Eye(s): bilateral: PERRL Oral Mucosa: Moist Chest: Symmetrical Cardiovascular: Rhythm Regular Respiratory: No Accessory Muscle Use, No Rales, No Rhonchi, No Stridor, No Wheezing Gastrointestinal/Abdominal: Soft, Tenderness (Diffuse tenderness.), No Guarding , No Rebound Extremity: No Swelling Neurological/Psych: Oriented x3, Normal Motor, Normal Sensation, Other (no focal deficits) ED Course And Treatment - Laboratory Results Result Diagrams: 10/26/16 07:14 10/26/16 07:14 O2 Sat by Pulse Oximetry: 97 (RA ) Pulse Ox Interpretation: Normal Medical Decision Making Medical Decision Making: PLAN: * CBC * CMP * Zofran IVP Disposition - Disposition Disposition: HOSPITALIZED Disposition Time: 16:26 Condition: STABLE - Clinical Impression Clinical Impression: ESRD (end stage renal disease) on dialysis, Intractable vomiting with nausea - Scribe Statement The provider has reviewed the documentation as recorded by the Raquelibe Rani Parisi Provider Attestation: All medical record entries made by the Raquelibbrenden were at my direction and personally dictated by me. I have reviewed the chart and agree that the record accurately reflects my personal performance of the history, physical exam, medical decision making, and the department course for this patient. I have also personally directed, reviewed, and agree with the discharge instructions and disposition.
[2016-10-22 13:59] LABS: BILIRUBIN,TOTAL 0.8 mg/dL (0.2-1.3); CALCIUM 9.5 mg/dl (8.6-10.4); TOTAL PROTEIN 7.4 g/dL (6.3-8.3)
[2016-10-22 14:02] LABS: BASO # 0.1 K/uL (0.0-0.2); BASO % 0.7 % (0.0-2.0); EOS % 0.1 % (0.0-4.0); LYMPH # 0.7 K/uL (1.0-4.3); LYMPH % 4.5 % (20.0-40.0); MEAN CELL VOLUME 92.8 fL (80.0-94.0); MEAN CORPUSCULAR HEMOGLOBIN 28.3 pg (27.0-31.0); MEAN CORPUSCULAR HGB CONC 30.5 g/dL (33.0-37.0); MEAN PLATELET VOLUME 10.3 fL (7.2-11.7); MONO # 1.1 K/uL (0.0-0.8); MONO % 7.2 % (0.0-10.0); NRBC % 0.1 % (0.0-2.0); PLATELET COUNT 311 K/uL (130-400); RED CELL DISTRIBUTION WIDTH 16.4 % (11.5-14.5); WHITE BLOOD COUNT 14.9 K/uL (4.8-10.8)
[2016-10-22 14:12] LABS: POTASSIUM 5.8 mmol/L (3.6-5.2)
[2016-10-22] MEDS ORDERED: Sodium Chloride 0.9% 250 ML IV ONE (14:32)
[2016-10-22] MEDS ORDERED: (Novolin R) Insulin Human Regular 100 units/ml vial IV ONE (14:33)
[2016-10-22] MEDS ORDERED: (Novolin R) Insulin Human Regular 100 units/ml vial ONE (14:41)
[2016-10-22] MEDS ORDERED: Insulin Human Regular 100 UNIT in Sodium Chloride 0.9% 99 ML IV SCH (14:45)
[2016-10-22 14:56] LABS: NEUTROPHIL 87 % (50-75); TOTAL CELLS COUNTED 100
[2016-10-22 15:03] LABS: DRAW SITE VENOUS; VENOUS BLOOD GAS BASE EXCESS -0.4 mmol/L (0.0-2.0); VENOUS BLOOD GAS PCO2 48 mmHg (40-60); VENOUS BLOOD PH 7.34 (7.32-7.43)
[2016-10-22] MEDS ORDERED: Labetalol 25mg/5ml Syringe IVP STA (16:25)
[2016-10-22] MEDS ORDERED: Labetalol 25mg/5ml Syringe ONE (16:35)
[2016-10-22] MEDS: (Lantus) Insulin Glargine, Recombinant SC SCH (23:18)
[2016-10-23] MEDS: (Novolog) Insulin Aspart, Recombinant 100 u/ml 10 ml vial SC SCH ×4 (08:15→21:50)
--- NOTE | 2016-10-23 11:26 | CP.PCM.CON ---
History of Present Illness - History of Present Illness History of Present Illness: 36 y/o male with ESRD on maintenance HD,IDDM,HTN presenred to ER yesterday for c/o addominal pain, V&VPt was adm last week for abd pain but signed out AMA after 2 days. In ER blood sugar was 800.pts dialysis schedule is MWF & he received dialysis last evening which was stopped after 2 hrs because Pt was very restlees & could not stay still. Past Patient History - Infectious Disease Hx of Infectious Diseases: None - Past Medical History & Family History Past Medical History?: Yes - Past Social History Smoking Status: Heavy Smoker > 10 Cigarettes Daily - CARDIAC Hx Congestive Heart Failure: Yes Hx Hypercholesterolemia: Yes Hx Hypertension: Yes Hx Peripheral Edema: Yes - PULMONARY Hx Respiratory Disorders: No - NEUROLOGICAL Hx Neurological Disorder: Yes Other/Comment: Bilateral leg neuropathy - HEENT Hx HEENT Problems: Yes Hx Cataracts: Yes Other/Comment: cataract surgery [facility] 10 years ago - RENAL Hx Chronic Kidney Disease: Yes Date of Last Dialysis Treatment: 10/22/16 - ENDOCRINE/METABOLIC Hx Endocrine Disorders: Yes Hx Diabetes Mellitus Type 2: Yes - HEMATOLOGICAL/ONCOLOGICAL Hx Anemia: Yes - INTEGUMENTARY Hx Dermatological Problems: No - MUSCULOSKELETAL/RHEUMATOLOGICAL Hx Musculoskeletal Disorders: No Hx Falls: Yes - GASTROINTESTINAL Hx Gastritis: Yes - GENITOURINARY/GYNECOLOGICAL Hx Genitourinary Disorders: No - PSYCHIATRIC Hx Substance Use: Yes (cannabis) - SURGICAL HISTORY Hx Surgeries: Yes Hx Vascular Access Device: Yes Other/Comment: RT.PERMACATH INSERTION 12/30. LT.AV SHUNT CREATION 02/17/16. UNDESCENDED TESTES LT. REMOVED DURING CHILDHOOD - ANESTHESIA Hx Anesthesia: Yes Hx Anesthesia Reactions: No Hx Malignant Hyperthermia: No Has any member of the family had a problem w/ anesthesia?: No Meds Allergies/Adverse Reactions: Allergies Allergy/AdvReac Type Severity Reaction Status Date / Time No Known Allergies Allergy Verified 10/22/16 12:31 - Medications Medications: Current Medications Amlodipine Besylate (Norvasc) 10 mg PO DAILY [facility] Clonidine HCl (Catapres) 0.3 mg PO TID [facility] Gabapentin (Neurontin) 300 mg PO BID [facility] Heparin Sodium (Porcine) (Heparin) 5,000 units SC Q12H [facility] Insulin Aspart (Novolog) 0 unit SC ACHS [facility] PRN Reason: Protocol Insulin Glargine (Lantus) 20 unit SC HS [facility] Last Admin: 10/22/16 23:18 Dose: 20 units Ketorolac Tromethamine (Toradol) 30 mg IVP Q8H PRN PRN Reason: Pain, moderate (4-7) Last Admin: 10/23/16 07:25 Dose: 30 mg Ondansetron HCl (Zofran Inj) 4 mg IVP Q6H PRN PRN Reason: Nausea/Vomiting Last Admin: 10/23/16 06:18 Dose: 4 mg Pantoprazole Sodium (Protonix Inj) 40 mg IVP DAILY [facility] Physical Exam - Constitutional Appears: No Acute Distress - Head Exam Head Exam: ATRAUMATIC, NORMOCEPHALIC - Eye Exam Eye Exam: Normal appearance - ENT Exam Additional comments: No icterus - Neck Exam Additional comments: Neck supple - Respiratory Exam Additional comments: Lungs clear - Cardiovascular Exam Cardiovascular Exam: REGULAR RHYTHM - GI/Abdominal Exam GI & Abdominal Exam: Soft Additional comments: Mild difffuse tenderness - Extremities Exam Additional comments: !+ b/l pedal edema Results - Vital Signs Recent Vital Signs: Last Vital Signs Temp 98.2 F 10/23/16 08:34 Pulse 103 H 10/23/16 08:34 Resp 20 10/23/16 08:34 BP 201/106 H 10/23/16 08:34 Pulse Ox 97 10/23/16 08:34 - Labs Result Diagrams: 10/22/16 13:33 10/22/16 13:33 Labs: Laboratory Results - last 24 hr 10/22/16 10/22/16 10/23/16 18:18 20:18 02:07 POC Glucose (mg/dL) > 500 H* 404 H* 374 H 10/23/16 06:28 POC Glucose (mg/dL) 282 H Assessment & Plan - Assessment and Plan (Free Text) Assessment: ESRD HTN uncontrolled Uncontrolled DM Plan: Blood pressures remain high & appears to have some volume overload. Extra dialysis is sceduled for today Then continue HD MWF
[2016-10-23 14:22] LABS: CHLORIDE 94 mmol/L (98-107); POTASSIUM 3.9 mmol/L (3.6-5.2); SODIUM 138 mmol/L (132-148)
[2016-10-23 14:24] LABS: CHOLESTEROL 192 mg/dL (0-199)
[2016-10-23 14:25] LABS: BLOOD UREA NITROGEN 40 mg/dL (9-20); CARBON DIOXIDE 31 mmol/L (22-30); GFR AFRICAN-AMERICAN 17; GLUCOSE,RANDOM 86 mg/dL (75-110)
[2016-10-23 14:26] LABS: CALCIUM 8.2 mg/dl (8.6-10.4); PHOSPHOROUS 5.6 mg/dL (2.5-4.5)
[2016-10-23 14:56] LABS: CARCINOEMBRYONIC ANTIGEN 12.2 ng/mL (0-3.0)
[2016-10-23 15:00] LABS: CA 19-9 < 1.4 U/mL (0-37)
--- NOTE | 2016-10-23 16:07 | PN ---
DATE: LOCATION: [facility], bed A. SUBJECTIVE: This is a 36 years old male seen for GI consultation at the request by the admitting MD on 10/22/2016, reexamined again today in the presence of the nursing staff with intermittent periods of abdominal pain, abdominal distention, nausea and vomiting and generalized weakness and malaise. The entire chart is reviewed including, but not limited to the most recent lab and radiology study results, current and the previous medication list, current and the previous medical events and the most recent lab results showed lipase of 738, blood glucose level of 282, and increased potassium with increased alkaline phosphatase to 227 with low hemoglobin of 10.7, but no reported active bleeding. LABORATORY DATA: Today's lab is still pending. PHYSICAL EXAMINATION: GENERAL: This is a 36 years old male. VITAL SIGNS: Afebrile with a pulse of 100, respiratory rate 20 to 22, and blood pressure of 196/102. HEENT: Showed pale, dry oral mucous membrane. Nonicteric sclerae. LUNGS: Few scattered crepitations, decreased air entry at bases. HEART: Positive S1 and S2 with increased rate. ABDOMEN: Soft. Bowel sounds are present. No mass or organomegaly. No rebound tenderness or guarding, but with generalized tenderness. EXTREMITIES: Without clubbing, cyanosis, or edema. NEUROLOGIC: No reported neurological deficit, sensory or motor. VASCULAR: Peripheral pulses are present and positive bilaterally. IMPRESSION: 1. Acute pancreatitis with re-exacerbation of peptic ulcer disease to rule out gastric versus duodenal ulcer. 2. Poorly controlled diabetes mellitus. 3. Known history of hyperlipidemia. 4. Congestive heart failure. 5. Hypertension. 6. Known history of syndrome. 7. End-stage renal disease, on hemodialysis. Case discussed with the nephrology sec reporting consultant on the case. SUGGESTIONS: 1. Agree with your plan. 2. Repeat serum lipase and amylase level. 3. Keep n.p.o. for now. 4. Abdominal ultrasound with attention to biliary tree and the pancreas. 5. Cancer markers. 6. Endoscopic evaluation of upper GI tract when the patient is more stable clinically. 7. Further recommendation to follow. 8. Lipid profile to be ordered. Cassy Hernandez MD cc: Cassy Hernandez MD [facility] # [id number]
[2016-10-23] MEDS: (Lantus) Insulin Glargine, Recombinant SC SCH (22:18)
--- NOTE | 2016-10-24 04:48 | HP ---
HISTORY OF PRESENT ILLNESS: Vishal Haynes is a 36-year-old man with history of diabetes, hypertension, chronic renal failure, history of marijuana abuse. The patient is not smoking. PHYSICAL EXAMINATION: GENERAL: The patient is awake, alert and oriented. HEENT: Blindness of the eye. NECK: Supple. CHEST: Symmetrical. HEART: Regular. ABDOMEN: Soft. EXTREMITIES: No edema. IMPRESSION: Gastritis, uncontrolled diabetes, diabetic ketoacidosis. The patient will need supportive care. Insulin Levemir . Lucero Chadwick MD
[2016-10-24 07:43] LABS: AMYLASE 98 U/L (30-110)
[2016-10-24] MEDS: (Novolog) Insulin Aspart, Recombinant 100 u/ml 10 ml vial SC SCH ×4 (08:00→22:05)
--- NOTE | 2016-10-24 08:23 | CON ---
DATE: 10/22/[address] Cassy Hernandez to Dr. Lucero Chadwick. I was called for GI consultation by the admitting MD. The patient is seen and fully examined on 10/22/2016 as requested by the admitting medical staff. The entire chart is reviewed including, but not limited to the most recent lab and radiology study results, current and previous medication lists, current and previous medical events, allergy to medication list as well as all the available current and previous medical records. Case discussed at length with the admitting medical staff and all other consultants on the case. HISTORY OF PRESENT ILLNESS: This is a 36-year-old male, known case for me, who was admitted to the hospital through the emergency room with recurrent complaint of severe abdominal wave, abdominal pain, postprandial abdominal distention, recurrent nausea and vomiting, profuse diarrhea for the last several hours prior to his admission, unable to take his medication due to expensive cost as per his statement. The patient denied any actual chest pain, significant shortness of breath, chills or fever and no reported active bleeding. The patient is a known case for me from previous admissions. PAST MEDICAL HISTORY: Including, but not limited to: 1. Type 1 diabetes. 2. Peptic ulcer disease with diabetic gastroparesis. 3. Known history of hypertension as well as congestive heart failure and hyperlipidemia. 4. End-stage renal disease, on hemodialysis. 5. Peripheral edema syndrome. 6. Anemia by history. 7. The patient had more than one-time endoscopic evaluation of the GI tract before. FAMILY HISTORY: Unknown for the patient. SOCIAL HISTORY: Positive for cigarette smoking, but denies alcohol intake recently. The patient has positive past medical history of substance abuse, cannabis. ALLERGY TO MEDICATION: UNCLEAR. CURRENT MEDICATIONS: Medication list is reviewed. After being admitted to the hospital, the patient was found to have lower hemoglobin and hematocrit with evidence of metabolic acidosis due to decreased CO2 content with increased BUN and creatinine, compatible with his known past medical history of renal failure with elevated blood glucose level; also, was found to have elevated lipase. PHYSICAL EXAMINATION GENERAL: A 36-year-old male, very well-known case for me from previous admissions; appears to be awake, alert, oriented; complaining of severe abdominal pain with recurrent episodes of nausea and vomiting as well as persistent dyspepsia with episodes recently. VITAL SIGNS: The patient is afebrile with pulse of 108, respiratory rate 20 to 22, blood pressure 218/102. HEENT: Shows pale and dry oral mucous membranes. Nonicteric sclerae. LYMPH NODES: No lymphadenitis or lymphadenopathy. LUNGS: Scattered mild crepitation. Decreased air entry at bases. HEART: Positive S1 and S2 with increased rate. ABDOMEN: Soft with slight distention and diffuse tenderness. No mass or organomegaly. No rebound tenderness or guarding. Bowel sounds are hyperactive. RECTAL EXAMINATION: . EXTREMITIES: Lower extremities with edematous changes. No clubbing or cyanosis. NEUROLOGIC: No reported new neurological deficits, sensory or motor. IMPRESSION: 1. Re-exacerbation of peptic ulcer disease, to rule out gastric versus duodenal ulcer. 2. Poorly controlled diabetes mellitus with diabetic gastroparesis. 3. Acute pancreatitis, to rule out lipids-induced pancreatitis. 4. Diarrhea, infectious verus mechanical, to rule out possible pseudomembranous colitis, to rule out diabetic diarrhea. 5. Poorly controlled hypertension. 6. Known history of congestive heart failure as well as hyperlipidemia with end-stage renal disease, on hemodialysis. 7. Metabolic acidosis secondary to above. SUGGESTIONS: 1. Agree with your plan. 2. Repeat serum lipase and amylase level. 3. Keep n.p.o. until lipase and amylase levels are normal or near normal. 4. Reglan IV. 5. Repeat abdominal ultrasound with attention to the biliary tree and pancreas. 6. Cancer markers including CEA as well as CA19-9. 7. Endoscopic evaluation of the GI tract when the patient is more stable clinically. 8. Further recommendations to follow and peripheral hyperalimentation and recommended that to be ordered by the nephrology internal control consultant on the case. Thank you for letting me to participate in your patient's case management. Further evaluation to follow. Cassy Hernandez MD
--- NOTE | 2016-10-24 08:38 | PN ---
LOCATION: [facility], bed A. SUBJECTIVE: This is a 36 years old male seen and examined in rounds without significant clinical changes or reported active bleeding with less episode of nausea and vomiting as well as less episodes of abdominal pain. The entire chart is reviewed including, but not limited to the most recent lab and radiology study results, current and previous medication list, current and previous medical events as well as allergy to medication list. All discussed with the staff in the floor. Today's lab showed blood glucose level of 129 and CEA level reported to be elevated to 12.2 but normal CE-9. Alpha fetoprotein protein was in normal limit. Serum lipase and amylase level is still pending as well as CBC, but normal lipids profile. PHYSICAL EXAMINATION: GENERAL: A 36 years old male, appeared to be awake, alert, oriented. VITAL SIGNS: Afebrile with pulse of 80, respiratory rate 20 to 22, blood pressure 156/74. HEENT: Showed pale, dry oral mucous membrane. Nonicteric sclerae. LUNGS: Few scattered crepitations, decreased air entry at bases. HEART: Positive S1 and S2. ABDOMEN: Soft. Bowel sounds are present. No mass or organomegaly. No rebound tenderness or guarding. EXTREMITIES: With lower extremity mild edematous changes. No clubbing or cyanosis. NEUROLOGIC: No reported new neurological deficit, sensory or motor. VASCULAR: Peripheral pulses are present bilaterally, but mildly weak. IMPRESSION: 1. Acute pancreatitis. 2. Poorly controlled diabetes mellitus with diabetic gastroparesis and diabetic ketoacidosis. 3. Poorly controlled hypertension. 4. End-stage renal disease, and the patient is on hemodialysis. 5. Known history of lower extremities edema syndrome. 6. Re-exacerbation of peptic ulcer disease to rule out gastric versus duodenal ulcer. 7. Elevated CEA level of unclear etiology. The possibility of lower GI tract or occult malignancy should be strongly kept in mind and colonoscopy is to be scheduled when the patient is only stable. Thank you for letting me participate in your patient's case management. We will follow up closely with you. Cassy Hernandez MD
--- NOTE | 2016-10-24 10:23 | CP.PCM.PN ---
Subjective - Date & Time of Evaluation Date of Evaluation: 10/24/16 Time of Evaluation: 10:00 - Subjective Subjective: Appears comfortable in bed Objective - Vital Signs/Intake and Output Vital Signs (last 24 hours): Temp Pulse Resp BP Pulse Ox 98.3 F 81 18 167/85 H 98 10/24/16 07:25 10/24/16 07:40 10/24/16 07:25 10/24/16 07:25 10/24/16 07:25 - Medications Medications: Current Medications Amlodipine Besylate (Norvasc) 10 mg PO DAILY [facility] Last Admin: 10/24/16 09:21 Dose: 10 mg Clonidine HCl (Catapres) 0.3 mg PO TID [facility] Last Admin: 10/24/16 09:21 Dose: 0.3 mg Gabapentin (Neurontin) 300 mg PO BID [facility] Last Admin: 10/24/16 09:21 Dose: 300 mg Heparin Sodium (Porcine) (Heparin) 5,000 units SC Q12H [facility] Last Admin: 10/24/16 09:21 Dose: 5,000 units Insulin Aspart (Novolog) 0 unit SC ACHS [facility] PRN Reason: Protocol Last Admin: 10/24/16 08:00 Dose: Not Given Insulin Glargine (Lantus) 20 unit SC HS [facility] Last Admin: 10/23/16 22:18 Dose: 20 units Ketorolac Tromethamine (Toradol) 30 mg IVP Q8H PRN PRN Reason: Pain, moderate (4-7) Last Admin: 10/24/16 09:25 Dose: 30 mg Metoclopramide HCl (Reglan) 5 mg IVP Q6 [facility] Last Admin: 10/24/16 06:33 Dose: 5 mg Ondansetron HCl (Zofran Inj) 4 mg IVP Q6H PRN PRN Reason: Nausea/Vomiting Last Admin: 10/23/16 22:53 Dose: 4 mg Pantoprazole Sodium (Protonix Inj) 40 mg IVP DAILY [facility] Last Admin: 10/24/16 09:21 Dose: 40 mg - Labs Labs: 10/23/16 13:59 PT 10.9 SECONDS (9.7-12.2) 10/24/16 07:26 INR 1.0 10/24/16 07:26 APTT 26 SECONDS (21-34) 10/24/16 07:26 - Respiratory Exam Respiratory Exam: NORMAL BREATHING PATTERN - Cardiovascular Exam Cardiovascular Exam: REGULAR RHYTHM - Extremities Exam Additional comments: No edema Assessment and Plan - Assessment and Plan (Free Text) Assessment: ESRD IDDM, uncontrolled HTN Plan: Continue HD MWF BS control improving
[2016-10-24] MEDS: (Lantus) Insulin Glargine, Recombinant SC SCH (23:20)
[2016-10-25] MEDS: (Novolog) Insulin Aspart, Recombinant 100 u/ml 10 ml vial SC SCH ×5 (02:15→21:19)
--- NOTE | 2016-10-25 09:57 | CP.PCM.PN ---
Subjective - Date & Time of Evaluation Date of Evaluation: 10/25/16 Time of Evaluation: 07:00 - Subjective Subjective: This 36 y/o male with ESRD on maintenance HD MWF, IDDM, HTN - presenred to ER 10/22 for c/o addominal pain. Pt was adm last week for abd pain but signed out AMA after 2 days. In ER blood sugar was 800. Pts dialysis schedule is MWF & he received dialysis last evening which was stopped after 2 hrs because Pt was very restless & could not stay still. Patient seen and examined at bedside this morning 10/25/16. No overnight events per nursing. Patient is currently NPO for endoscopy procedure. Scheduled for HD today. No acute complaints at this time. Denies fever, chills, chest pain, dyspnea, abdominal pain, nausea/vomiting, diarrhea/constipation, or any additional acute complaints. Objective - Vital Signs/Intake and Output Vital Signs (last 24 hours): Temp Pulse Resp BP Pulse Ox 98 F 83 18 168/88 H 97 10/25/16 08:55 10/25/16 08:55 10/25/16 08:55 10/25/16 09:25 10/25/16 08:55 Intake and Output: 10/25/16 10/25/16 06:59 18:59 Intake Total 100 Balance 100 - Medications Medications: Current Medications Amlodipine Besylate (Norvasc) 10 mg PO DAILY [facility] Last Admin: 10/24/16 09:21 Dose: 10 mg Clonidine HCl (Catapres) 0.3 mg PO TID [facility] Last Admin: 10/24/16 17:59 Dose: 0.3 mg Gabapentin (Neurontin) 300 mg PO BID [facility] Last Admin: 10/24/16 17:59 Dose: 300 mg Heparin Sodium (Porcine) (Heparin) 5,000 units SC Q12H [facility] Last Admin: 10/24/16 22:02 Dose: 5,000 units Insulin Aspart (Novolog) 0 unit SC ACHS [facility] PRN Reason: Protocol Last Admin: 10/25/16 02:15 Dose: 3 unit Insulin Glargine (Lantus) 20 unit SC HS [facility] Last Admin: 10/24/16 23:20 Dose: 20 units Metoclopramide HCl (Reglan) 5 mg IVP Q6 [facility] Last Admin: 10/25/16 06:06 Dose: 5 mg Ondansetron HCl (Zofran Inj) 4 mg IVP Q6H PRN PRN Reason: Nausea/Vomiting Last Admin: 10/23/16 22:53 Dose: 4 mg Pantoprazole Sodium (Protonix Inj) 40 mg IVP DAILY [facility] Last Admin: 10/24/16 09:21 Dose: 40 mg - Labs Labs: 10/23/16 13:59 PT 10.9 SECONDS (9.7-12.2) 10/24/16 07:26 INR 1.0 10/24/16 07:26 APTT 26 SECONDS (21-34) 10/24/16 07:26 - Additional Findings Additional findings: - Constitutional Appears: No Acute Distress - Head Exam Head Exam: ATRAUMATIC, NORMOCEPHALIC - Eye Exam Eye Exam: Normal appearance - ENT Exam Additional comments: No icterus - Neck Exam Additional comments: Neck supple - Respiratory Exam Additional comments: Lungs clear - Cardiovascular Exam Cardiovascular Exam: REGULAR RHYTHM - GI/Abdominal Exam GI & Abdominal Exam: Soft Additional comments: Mild difffuse tenderness - Extremities Exam Additional comments: + b/l pedal edema Assessment and Plan - Assessment and Plan (Free Text) Assessment: Acute Pancreatitis 10/25: poor endoscopy prep, repeat endoscopy 10/26. 10/25: Endoscopy - LA grade B reflux esophagitis; small hiatus hernia. rec [facility] Reglan) 5 mg IVP Q6 [facility] Zofran Inj) 4 mg IVP Q6H PRN GI Consult, Dr. Armstrong, f/u recs advanced to [facility] lipase 738 on admission, CEA 12.2H Chronic Kidney Disease 10/25: HD session today. tolerated well. No SOB. Nephrology Consult, Dr. Plasencia, f/u recs HD MWF IDDM Neurontin) 300 mg PO BID [facility] Novolog) 0 unit SC ACHS [facility] Lantus) 20 unit SC HS [facility] HTN 10/25: BP elevated at 196/97 - added on home meds Hydralazine + Losartan (see dosing below). Norvasc) 10 mg PO DAILY [facility] Clonidine HCl (Catapres) 0.3 mg PO TID [facility] Hydralazine HCl (Apresoline) 50 mg PO Q8H [facility] Losartan Potassium (Cozaar) 50 mg PO DAILY [facility] Prophylaxis Heparin) 5,000 units SC Q12H [facility] Protonix Inj) 40 mg IVP DAILY [facility]
--- NOTE | 2016-10-25 11:03 | CP.PCM.PN ---
Subjective - Date & Time of Evaluation Date of Evaluation: 10/25/16 Time of Evaluation: 10:45 - Subjective Subjective: Currently on dialysis. No SOB Objective - Vital Signs/Intake and Output Vital Signs (last 24 hours): Temp Pulse Resp BP Pulse Ox 98 F 83 18 170/88 H 97 10/25/16 08:55 10/25/16 08:55 10/25/16 08:55 10/25/16 10:25 10/25/16 08:55 Intake and Output: 10/25/16 10/25/16 06:59 18:59 Intake Total 100 Balance 100 - Medications Medications: Current Medications Amlodipine Besylate (Norvasc) 10 mg PO DAILY [facility] Last Admin: 10/24/16 09:21 Dose: 10 mg Clonidine HCl (Catapres) 0.3 mg PO TID [facility] Last Admin: 10/24/16 17:59 Dose: 0.3 mg Gabapentin (Neurontin) 300 mg PO BID [facility] Last Admin: 10/24/16 17:59 Dose: 300 mg Heparin Sodium (Porcine) (Heparin) 5,000 units SC Q12H [facility] Last Admin: 10/24/16 22:02 Dose: 5,000 units Insulin Aspart (Novolog) 0 unit SC ACHS [facility] PRN Reason: Protocol Last Admin: 10/25/16 02:15 Dose: 3 unit Insulin Glargine (Lantus) 20 unit SC HS [facility] Last Admin: 10/24/16 23:20 Dose: 20 units Metoclopramide HCl (Reglan) 5 mg IVP Q6 [facility] Last Admin: 10/25/16 06:06 Dose: 5 mg Ondansetron HCl (Zofran Inj) 4 mg IVP Q6H PRN PRN Reason: Nausea/Vomiting Last Admin: 10/23/16 22:53 Dose: 4 mg Pantoprazole Sodium (Protonix Inj) 40 mg IVP DAILY [facility] Last Admin: 10/24/16 09:21 Dose: 40 mg - Labs Labs: 10/23/16 13:59 PT 10.9 SECONDS (9.7-12.2) 10/24/16 07:26 INR 1.0 10/24/16 07:26 APTT 26 SECONDS (21-34) 10/24/16 07:26 - Respiratory Exam Additional comments: Lungs clear - Cardiovascular Exam Cardiovascular Exam: REGULAR RHYTHM - Extremities Exam Additional comments: No edema Assessment and Plan - Assessment and Plan (Free Text) Assessment: ESRD HTN Abdominal pain IDDM Plan: Stable on dialysis Continue HD MWF For upper endoscopy today
[2016-10-25 11:38] LABS: BASO # 0.1 K/uL (0.0-0.2); EOS # 0.6 K/uL (0.0-0.7); EOS % 6.3 % (0.0-4.0); HEMATOCRIT 30.3 % (35.0-51.0); LYMPH # 1.6 K/uL (1.0-4.3); MEAN CELL VOLUME 88.6 fL (80.0-94.0); MEAN CORPUSCULAR HEMOGLOBIN 28.4 pg (27.0-31.0); MEAN PLATELET VOLUME 9.3 fL (7.2-11.7); MONO # 0.9 K/uL (0.0-0.8); MONO % 9.3 % (0.0-10.0); RED CELL DISTRIBUTION WIDTH 15.8 % (11.5-14.5); WHITE BLOOD COUNT 9.7 K/uL (4.8-10.8)
[2016-10-25 11:55] LABS: ALB/GLOB RATIO 0.9 (1.0-2.1); BILIRUBIN,TOTAL 0.3 mg/dL (0.2-1.3); CALCIUM 7.6 mg/dl (8.6-10.4); POTASSIUM 3.8 mmol/L (3.6-5.2); TOTAL PROTEIN 5.8 g/dL (6.3-8.3)
[2016-10-25] MEDS ORDERED: Propofol 10 mg/ml Inj (20 ML) ONE ×2 (13:11→13:13)
[2016-10-25] MEDS ORDERED: Lidocaine Hydrochloride 5 ML INJ ONE (13:11)
[2016-10-25] MEDS ORDERED: Lactated Ringer's 1,000 ML IV ONE (13:30)
[2016-10-25] MEDS ORDERED: Peg-Electrolyte Oral Soln 4L (Golytely) PO ONE (15:00)
[2016-10-25] MEDS ORDERED: Bisacodyl 5mg EC Tab PO ONE (17:00)
[2016-10-25] MEDS: (Lantus) Insulin Glargine, Recombinant SC SCH (22:30)
[2016-10-26] MEDS ORDERED: DiphenhydrAMINE 50 mg/ml Inj IVP STA (00:46)
[2016-10-26] MEDS ORDERED: Dextrose 50% SYRINGE Inj (50 ml) ONE (06:40)
[2016-10-26] MEDS ORDERED: Dextrose 50% SYRINGE Inj (50 ml) IV STA (06:49)
[2016-10-26] MEDS: (Novolog) Insulin Aspart, Recombinant 100 u/ml 10 ml vial SC SCH ×2 (07:30→12:59)
[2016-10-26 07:31] LABS: BASO # 0.1 K/uL (0.0-0.2); BASO % 0.8 % (0.0-2.0); EOS # 0.7 K/uL (0.0-0.7); EOS % 6.1 % (0.0-4.0); HEMATOCRIT 29.4 % (35.0-51.0); LYMPH # 2.8 K/uL (1.0-4.3); LYMPH % 24.8 % (20.0-40.0); MEAN CELL VOLUME 88.3 fL (80.0-94.0); MEAN CORPUSCULAR HEMOGLOBIN 28.6 pg (27.0-31.0); MEAN CORPUSCULAR HGB CONC 32.3 g/dL (33.0-37.0); MEAN PLATELET VOLUME 9.1 fL (7.2-11.7); RED CELL DISTRIBUTION WIDTH 16.1 % (11.5-14.5); WHITE BLOOD COUNT 11.3 K/uL (4.8-10.8)
[2016-10-26 07:56] LABS: POTASSIUM 4.3 mmol/L (3.6-5.2)
[2016-10-26 07:58] LABS: BILIRUBIN,TOTAL 0.4 mg/dL (0.2-1.3)
[2016-10-26 07:59] LABS: CALCIUM 7.1 mg/dl (8.6-10.4); PHOSPHOROUS 4.1 mg/dL (2.5-4.5); TOTAL PROTEIN 5.7 g/dL (6.3-8.3)
[2016-10-26 08:00] LABS: MAGNESIUM 1.5 mg/dL (1.6-2.3)
[2016-10-26] MEDS ORDERED: Propofol 10 mg/ml Inj (20 ML) ONE (08:01)
[2016-10-26 08:44] VITALS: TEMP 97.4
[2016-10-26 08:53] VITALS: BP 167/98; PULSE 80; RESP 11
--- NOTE | 2016-10-26 10:44 | CP.PCM.PN ---
Subjective - Date & Time of Evaluation Date of Evaluation: 10/26/16 Time of Evaluation: 08:00 - Subjective Subjective: Patient seen and examined at bedside. No overnight events per nursing. Patient is currently NPO repeat endoscopy procedure today (yesterdays endoscopy was troubled by poor prep). No acute complaints at this time. Of note, patient is often breaking his diet orders, and helping himself to items in the floor refrigerator despite being told not to sneak in meals. Denies fever, chills, chest pain, dyspnea, abdominal pain, nausea/vomiting, diarrhea/constipation, or any additional acute complaints. --- Patient is stable for discharge per Dr. Kalli Chadwick. Patient should resume all medications as outlined in this document. Additionally, patient should take the new medications listed below (scripts provided). 1. Please make an appointment and follow up with your Primary Doctor, Dr. hCadwick within one week of discharge. 2. You had a colonoscopy preformed while in the hospital, which revealed external/internal hemorrhoids. Samples were obtained for pathology, please review these results with your PMD. 3. You had an endoscopy preformed while in the hospital, which revealed reflux esophagitis and erythematous duodenopathy. Samples were obtained for pathology, please review these results with your PMD. 4. Your Transport Truck Driver recommended a Cat Scan w/Contrast of the abdomen to be performed as an outpatient. Patient should return to ED immediately if symptoms return or worsen. Instructions discussed with patient who understood and agreed. Objective - Vital Signs/Intake and Output Vital Signs (last 24 hours): Temp Pulse Resp BP Pulse Ox 97.4 F L 80 11 L 167/98 H 100 10/26/16 08:43 10/26/16 08:50 10/26/16 08:50 10/26/16 08:50 10/26/16 08:50 Intake and Output: 10/26/16 10/26/16 06:59 18:59 Intake Total 3000 100 Balance 3000 100 - Medications Medications: Current Medications Amlodipine Besylate (Norvasc) 10 mg PO DAILY [facility] Last Admin: 10/26/16 09:40 Dose: 10 mg Clonidine HCl (Catapres) 0.3 mg PO TID [facility] Last Admin: 10/26/16 09:40 Dose: 0.3 mg Gabapentin (Neurontin) 300 mg PO BID [facility] Last Admin: 10/26/16 09:40 Dose: 300 mg Heparin Sodium (Porcine) (Heparin) 5,000 units SC Q12H [facility] Last Admin: 10/25/16 22:28 Dose: 5,000 units Hydralazine HCl (Apresoline) 50 mg PO Q8 [facility] Last Admin: 10/26/16 05:58 Dose: 50 mg Insulin Aspart (Novolog) 0 unit SC ACHS [facility] PRN Reason: Protocol Last Admin: 10/26/16 07:30 Dose: Not Given Insulin Glargine (Lantus) 20 unit SC HS [facility] Last Admin: 10/25/16 22:30 Dose: 20 units Losartan Potassium (Cozaar) 50 mg PO DAILY [facility] Last Admin: 10/26/16 09:40 Dose: 50 mg Metoclopramide HCl (Reglan) 5 mg IVP Q6 [facility] Last Admin: 10/26/16 05:59 Dose: 5 mg Ondansetron HCl (Zofran Inj) 4 mg IVP Q6H PRN PRN Reason: Nausea/Vomiting Last Admin: 10/23/16 22:53 Dose: 4 mg Pantoprazole Sodium (Protonix Inj) 40 mg IVP DAILY [facility] Last Admin: 10/26/16 09:40 Dose: 40 mg - Labs Labs: 10/26/16 07:14 10/26/16 07:14 PT 10.9 SECONDS (9.7-12.2) 10/24/16 07:26 INR 1.0 10/24/16 07:26 APTT 26 SECONDS (21-34) 10/24/16 07:26 - Additional Findings Additional findings: - Constitutional Appears: No Acute Distress - Head Exam Head Exam: ATRAUMATIC, NORMOCEPHALIC - Eye Exam Eye Exam: Normal appearance - ENT Exam Additional comments: No icterus - Neck Exam Neck Exam: Full ROM Additional comments: Neck supple - Respiratory Exam Respiratory Exam: NORMAL BREATHING PATTERN. absent: Wheezes, Respiratory Distress - Cardiovascular Exam Cardiovascular Exam: REGULAR RHYTHM - GI/Abdominal Exam GI & Abdominal Exam: Soft. absent: Distended, Firm, Guarding, Rigid, Tenderness - Extremities Exam Extremities Exam: Normal Inspection. absent: Calf Tenderness Additional comments: + mild b/l pedal edema - Neurological Exam Neurological Exam: Alert, Awake, Oriented x3 - Psychiatric Exam Psychiatric exam: Normal Affect, Normal Mood - Skin Skin Exam: Dry, Intact, Warm Assessment and Plan - Assessment and Plan (Free Text) Assessment: Acute Pancreatitis 10/26: endoscopy revealed reflux esophagitis and erythematous duodenopathy. Samples were obtained for pathology. Colonoscopy preformed which revealed external/internal hemorrhoids. Samples were obtained for pathology GI recommended a Cat Scan w/Contrast of the abdomen to be performed as an outpatient. 10/26: stable for discharge 10/25: poor endoscopy prep, repeat endoscopy 10/26. 10/25: Endoscopy - LA grade B reflux esophagitis; small hiatus hernia. rec [facility] Reglan) 5 mg IVP Q6 [facility] Zofran Inj) 4 mg IVP Q6H PRN GI Consult, Dr. Armstrong, f/u recs advanced to [facility] lipase 738 on admission, CEA 12.2H Chronic Kidney Disease 10/26: stable for discharge 10/25: HD session today. tolerated well. No SOB. Nephrology Consult, Dr. Plasencia, f/u recs HD MWF IDDM Neurontin) 300 mg PO BID [facility] Novolog) 0 unit SC ACHS [facility] Lantus) 20 unit SC HS [facility] HTN 10/25: BP elevated at 196/97 - added on home meds Hydralazine + Losartan (see dosing below). Norvasc) 10 mg PO DAILY [facility] Clonidine HCl (Catapres) 0.3 mg PO TID [facility] Hydralazine HCl (Apresoline) 50 mg PO Q8H [facility] Losartan Potassium (Cozaar) 50 mg PO DAILY [facility] Prophylaxis Heparin) 5,000 units SC Q12H [facility] Protonix Inj) 40 mg IVP DAILY [facility]
--- NOTE | 2016-10-26 11:32 | CP.PCM.PN ---
Subjective - Date & Time of Evaluation Date of Evaluation: 10/26/16 Time of Evaluation: 11:00 - Subjective Subjective: Appears comfortable supine Objective - Vital Signs/Intake and Output Vital Signs (last 24 hours): Temp Pulse Resp BP Pulse Ox 97.4 F L 80 11 L 167/98 H 100 10/26/16 08:43 10/26/16 08:50 10/26/16 08:50 10/26/16 08:50 10/26/16 08:50 Intake and Output: 10/26/16 10/26/16 06:59 18:59 Intake Total 3000 100 Balance 3000 100 - Medications Medications: Current Medications Amlodipine Besylate (Norvasc) 10 mg PO DAILY [facility] Last Admin: 10/26/16 09:40 Dose: 10 mg Clonidine HCl (Catapres) 0.3 mg PO TID [facility] Last Admin: 10/26/16 09:40 Dose: 0.3 mg Gabapentin (Neurontin) 300 mg PO BID [facility] Last Admin: 10/26/16 09:40 Dose: 300 mg Heparin Sodium (Porcine) (Heparin) 5,000 units SC Q12H [facility] Last Admin: 10/25/16 22:28 Dose: 5,000 units Hydralazine HCl (Apresoline) 50 mg PO Q8 [facility] Last Admin: 10/26/16 05:58 Dose: 50 mg Insulin Aspart (Novolog) 0 unit SC ACHS [facility] PRN Reason: Protocol Last Admin: 10/26/16 07:30 Dose: Not Given Insulin Glargine (Lantus) 20 unit SC HS [facility] Last Admin: 10/25/16 22:30 Dose: 20 units Losartan Potassium (Cozaar) 50 mg PO DAILY [facility] Last Admin: 10/26/16 09:40 Dose: 50 mg Metoclopramide HCl (Reglan) 5 mg IVP Q6 [facility] Last Admin: 10/26/16 05:59 Dose: 5 mg Ondansetron HCl (Zofran Inj) 4 mg IVP Q6H PRN PRN Reason: Nausea/Vomiting Last Admin: 10/23/16 22:53 Dose: 4 mg Pantoprazole Sodium (Protonix Inj) 40 mg IVP DAILY [facility] Last Admin: 10/26/16 09:40 Dose: 40 mg - Labs Labs: 10/26/16 07:14 10/26/16 07:14 PT 10.9 SECONDS (9.7-12.2) 10/24/16 07:26 INR 1.0 10/24/16 07:26 APTT 26 SECONDS (21-34) 10/24/16 07:26 - Respiratory Exam Additional comments: Lungs clear - Cardiovascular Exam Cardiovascular Exam: REGULAR RHYTHM - GI/Abdominal Exam GI & Abdominal Exam: Soft - Extremities Exam Additional comments: No edema Assessment and Plan - Assessment and Plan (Free Text) Assessment: ESRD on maintenance HD Abdominal pain HTN DM Plan: Qontnue HD MWF There has been drop in HB. Pt is scheduled for Endoscopy today Monitor Hb
[2016-10-26] MEDS: LIPASE/PROTEASE/AMYLASE 4,200 U ECC PO SCH ×2 (13:04→14:48)
[2016-10-26 16:17] VITALS: O2SAT 97
[2016-10-27] MEDS ORDERED: Epoetin Alfa 4000 UNIT/ML Inj SC SCH (09:00)
--- NOTE | 2016-11-05 03:12 | DS ---
The patient was admitted to the hospital with a chief complaint of weakness, fatigue, tiredness, nausea and vomiting. The patient needs rest, supportive care, Zofran, pain medication, improved, discharged to be followed as an outpatient. DIAGNOSES: Uremic gastritis and diabetic gastroparesis. Lucero Chadwick MD
== END 2016-10-26 15:10 | disposition home health service (06) | DRG 438 ==
LOC: C.ER 12:15 → C.9E 16:26 → C.6T 19:27
PROVIDERS: ADMIT Internal Medicine Pulmonary Disease; ATTEND Internal Medicine Pulmonary Disease
PROC: 5A1D60Z (ICD-10-PCS; principal; 2016-10-22)
PROC: 0DB68ZX Excision of Stomach, Via Natural or Artificial Opening Endoscopic, Diagnostic (ICD-10-PCS; 2016-10-26)
PROC: 0DBM8ZX Excision of Descending Colon, Via Natural or Artificial Opening Endoscopic, Diagnostic (ICD-10-PCS; 2016-10-26 08:00)
DX: K85.90 Acute pancreatitis without necrosis or infection, unspecified (principal); E10.10 Type 1 diabetes mellitus with ketoacidosis without coma; I13.2 Hypertensive heart and chronic kidney disease with heart failure and with stage 5 chronic kidney disease, or end stage renal disease; N18.6 End stage renal disease; K31.84 Gastroparesis; E10.22 Type 1 diabetes mellitus with diabetic chronic kidney disease; K27.9 Peptic ulcer, site unspecified, unspecified as acute or chronic, without hemorrhage or perforation; E10.43 Type 1 diabetes mellitus with diabetic autonomic (poly)neuropathy; I50.9 Heart failure, unspecified; F12.10 Cannabis abuse, uncomplicated; E78.5 Hyperlipidemia, unspecified; D64.9 Anemia, unspecified; K64.4 Residual hemorrhoidal skin tags; K64.8 Other hemorrhoids; G89.29 Other chronic pain; K21.0 Gastro-esophageal reflux disease with esophagitis; K29.70 Gastritis, unspecified, without bleeding; K29.80 Duodenitis without bleeding; Z79.4 Long term (current) use of insulin; Z99.2 Dependence on renal dialysis; Z87.891 Personal history of nicotine dependence; Z79.899 Other long term (current) drug therapy

== ENCOUNTER 2016-10-28 19:30 | Inpatient (IN) | payer MEDICAID, MEDICARE ==
[2016-10-28 19:30] VITALS: BMI 27.0
[2016-10-28 20:22] LABS: BASO # 0.1 K/uL (0.0-0.2); BASO % 0.4 % (0.0-2.0); EOS # 0.3 K/uL (0.0-0.7); EOS % 1.1 % (0.0-4.0); HEMATOCRIT 31.7 % (35.0-51.0); LYMPH # 1.6 K/uL (1.0-4.3); LYMPH % 7.2 % (20.0-40.0); MEAN CELL VOLUME 89.7 fL (80.0-94.0); MEAN CORPUSCULAR HEMOGLOBIN 28.2 pg (27.0-31.0); MEAN CORPUSCULAR HGB CONC 31.4 g/dL (33.0-37.0); MONO # 0.9 K/uL (0.0-0.8); PLATELET COUNT 289 K/uL (130-400); RED CELL DISTRIBUTION WIDTH 16.5 % (11.5-14.5); WHITE BLOOD COUNT 22.4 K/uL (4.8-10.8)
[2016-10-28 20:30] LABS: POTASSIUM 4.5 mmol/L (3.6-5.2)
[2016-10-28 20:33] LABS: ALB/GLOB RATIO 1.1 (1.0-2.1); BILIRUBIN,TOTAL 0.6 mg/dL (0.2-1.3); CALCIUM 8.4 mg/dl (8.6-10.4); TOTAL PROTEIN 6.4 g/dL (6.3-8.3)
--- NOTE | 2016-10-28 20:44 | C.PDOC ---
History Of Present Illness The patient presents today with complaints of abdominal pain and pressure, constant since yesterday. Patient reports the pain is 8/10 and states he has not taken an medications to alleviate his pain. He reports the pain is worse with movement and describes the pain as diffuse but more present in the lower quadrants. He denies radiation of pain, back pain and states this is the first instance of such pain. He reports associated chills, headache, shortness of breath, nausea, vomiting and diarrhea, all ongoing since yesterday. He denies any fever, chest pain, palpitations, cough, bloody stool, hematuria, urinary frequency. Of note, patient receives dialysis on MWF but went for an extra session this past Tuesday due to preparation for a colonoscopy, performed 2 days ago. He offers no additional medical complaints. Time Seen by Provider: 10/28/16 20:43 Chief Complaint (Nursing): Abdominal Pain History Per: Patient History/Exam Limitations: no limitations Onset/Duration Of Symptoms: Days Current Symptoms Are (Timing): Still Present Severity: Moderate Pain Scale Rating Of: 8 Location Of Pain/Discomfort: Diffuse, LLQ Radiation Of Pain To:: None Quality Of Discomfort: Pressure, "Pain" Associated Symptoms: Chills, Vomiting, Diarrhea. denies: Fever, Nausea, Back Pain, Chest Pain Exacerbating Factors: denies: Cough Alleviating Factors: None Recent travel outside of the [place]: No Additional History Per: Patient Past Medical History Reviewed: Historical Data, Nursing Documentation, Vital Signs Vital Signs: Last Vital Signs Temp 98.0 F 10/28/16 19:34 Pulse 104 H 10/28/16 22:32 Resp 14 10/28/16 22:32 BP 192/103 H 10/28/16 22:32 Pulse Ox 98 10/28/16 23:12 - Medical History PMH: Anemia, CHF, Diabetes (type I), Gastritis, HTN, Hypercholesterolemia, Peripheral Edema, End Stage Renal Disease, Chronic Kidney Disease Other Surgeries: colonposcopy - [facility] BYPASS LEFT BRACHIAL ARTERY TO UPPER ARM VEIN, OPEN APPROACH (02/17/16) EXCISION OF ASCENDING COLON, ENDO, DIAGN (12/19/15) EXCISION OF DESCENDING COLON, ENDO, DIAGN (10/22/16) EXCISION OF DUODENUM, ENDO, DIAGN (03/25/16) EXCISION OF LARGE INTESTINE, ENDO, DIAGN (05/06/16) EXCISION OF MIDDLE ESOPHAGUS, ENDO, DIAGN (03/25/16) EXCISION OF STOMACH, ENDO, DIAGN (10/22/16) EXCISION OF TRANSVERSE COLON, ENDO, DIAGN (05/06/16) INSERTION OF INFUSION DEV INTO SUP VENA CAVA, PERC APPROACH (12/19/15) PERFORMANCE OF URINARY FILTRATION, MULTIPLE (10/22/16) PERFORMANCE OF URINARY FILTRATION, SINGLE (10/16/16) REPOSITION LEFT BASILIC VEIN, OPEN APPROACH (05/25/16) ULTRASONOGRAPHY OF SUPERIOR VENA CAVA, GUIDANCE (12/19/15) Family History: States: No Known Family Hx - Social History Hx Tobacco Use: Yes (some days) Hx Alcohol Use: No Hx Substance Use: Yes (cannabis) - Immunization History Hx Tetanus Toxoid Vaccination: Yes Hx Influenza Vaccination: Yes Hx Pneumococcal Vaccination: Yes Review Of Systems Constitutional: Positive for: Chills. Negative for: Fever Cardiovascular: Negative for: Chest Pain, Palpitations Respiratory: Positive for: Shortness of Breath Gastrointestinal: Positive for: Nausea, Vomiting, Abdominal Pain, Diarrhea. Negative for: Hematochezia Genitourinary: Negative for: Frequency, Hematuria Musculoskeletal: Negative for: Back Pain Skin: Negative for: Rash Neurological: Positive for: Headache Psych: Negative for: Anxiety Physical Exam - Physical Exam Appears: Non-toxic Skin: Warm, Dry Head: Normacephalic Eye(s): bilateral: Normal Inspection Oral Mucosa: Moist Neck: Trachea Midline, Supple Chest: Symmetrical Cardiovascular: Rhythm Regular Respiratory: No Decreased Breath Sounds, No Wheezing Gastrointestinal/Abdominal: Bowel Sounds, Soft, Tenderness (diffuse tenderness to palpation), No Distention, No Guarding, No Rebound Back: No CVA Tenderness Extremity: Pedal Edema (bilateral), No Deformity, Other (shunt on left arm with good thirll and bruit noted.) Extremity: Bilateral: Atraumatic Neurological/Psych: Oriented x3, Normal Speech, Normal Cognition Gait: With Assistance ED Course And Treatment - Laboratory Results Result Diagrams: 10/28/16 20:19 10/28/16 20:19 O2 Sat by Pulse Oximetry: 98 (RA) Pulse Ox Interpretation: Normal - CT Scan/US CT ABDOMEN/PELVIS Other Rad Studies (CT/US): Read By Radiologist CT/US Interpretation: EXAM: CT Abdomen and Pelvis Without Intravenous Contrast. CLINICAL HISTORY: 36 years old, male; Pain; Abdominal pain; Flank; Lower; Additional info: Abd pain, S/P colonoscopy,. diarrhea. TECHNIQUE: Axial computed tomography images of the abdomen and pelvis without intravenous contrast. All CT. scans at this facility use one or more dose reduction techniques, viz.: automated exposure control;. ma/kV adjustment per patient size (including targeted exams where dose is matched to indication; i.e. head) ; or iterative reconstruction technique. Coronal and sagittal reformatted images were created and reviewed. COMPARISON: No relevant prior studies available. FINDINGS: Lower thorax: Minimal atelectasis. Mild mural thickening vs underdistention of distal esophagus. ABDOMEN: Liver: Unremarkable. Gallbladder and bile ducts: No calcified stones. No ductal dilation. Pancreas: Unremarkable. No ductal dilation. Spleen: No splenomegaly. Adrenals: No mass. Kidneys and ureters: No renal calculi. No hydronephrosis. Stomach and bowel: No definite mural thickening. No obstruction. Appendix: No findings to suggest acute appendicitis. PELVIS: Bladder: Borderline bladder wall thickening, up to 5 mm. Incomplete distention, limiting evaluation. No stones. Reproductive: Unremarkable as visualized. ABDOMEN and PELVIS: Intraperitoneal space: No significant fluid collection. No free air. Bones/joints: No acute fracture. Soft tissues: Mild diffuse stranding within subcutaneous tissues. Vasculature: Mild atherosclerotic disease. No aneurysm. Lymph nodes: No pathologically enlarged lymph nodes. IMPRESSION: 1. No CT evidence of urolithiasis. 2. Mild cystitis vs underdistention. Correlate with urinalysis. 3. Incidental/non- acute findings are described above. Progress Note: labs, pepcid 20 mg, zofran 4mg ordered Disposition Discussed With : Lucero Chadwick Comment: accepted the pt on his service and took over the care at 11:15 PM Doctor Will See Patient In The: Hospital Counseled Patient/Family Regarding: Studies Performed, Diagnosis - Disposition Disposition: HOSPITALIZED Disposition Time: 20:44 Condition: FAIR Forms: [facility] (Bhutanese) - POA Present On Arrival: Poor Glycemic Control - Clinical Impression Clinical Impression: Intractable abdominal pain, Intractable vomiting with nausea, Leukocytosis - Scribe Statement The provider has reviewed the documentation as recorded by the Js Myrick Provider Attestation: All medical record entries made by the Js were at my direction and personally dictated by me. I have reviewed the chart and agree that the record accurately reflects my personal performance of the history, physical exam, medical decision making, and the department course for this patient. I have also personally directed, reviewed, and agree with the discharge instructions and disposition. Decision To Admit - Pt Status Changed To: Hospital Disposition Of: Inpatient - Admit Certification Admit to Inpatient:: After my assessment, the patient will require hospitalization for at least two midnights. This is because of the severity of symptoms shown, intensity of services needed, and/or the medical risk in this patient being treated as an outpatient. - InPatient: Physician Admission Certification:: After my assessment, the patient will require hospitalization for at least two midnights. This is because of the severity of symptoms shown, intensity of services needed, and/or the medical risk in this patient being treated as an outpatient. - . Bed Request Type: Regular Admitting Physician: Lucero Chadwick Patient Diagnosis: Intractable abdominal pain, Intractable vomiting with nausea, Leukocytosis
[2016-10-28 21:18] LABS: INR 0.9
[2016-10-28] MEDS ORDERED: Piperacillin/Tazobact 3.375 gm 100 ML IVPB STA (21:51)
[2016-10-28] MEDS ORDERED: Vancomycin 1 GM 1 GM/250 ML BAG IVPB ONE ×2 (22:00→22:16)
[2016-10-28] MEDS ORDERED: Piperacillin/Tazobact 3.375 gm 100 ML IVPB ONE (22:16)
[2016-10-28 23:00] LABS: BASOPHIL 1 % (0-2); EOSINOPHIL 1 % (0-4); NEUTROPHIL 86 % (50-75); TOTAL CELLS COUNTED 100
[2016-10-28 23:01] LABS: LARGE PLATELETS PRESENT; SMUDGE CELLS PRESENT
--- NOTE | 2016-10-28 23:09 | CT ---
EXAM: CT Abdomen and Pelvis Without Intravenous Contrast CLINICAL HISTORY: 36 years old, male; Pain; Abdominal pain; Flank; Lower; Additional info: Abd pain, S/P colonoscopy, diarrhea TECHNIQUE: Axial computed tomography images of the abdomen and pelvis without intravenous contrast. All CT scans at this facility use one or more dose reduction techniques, viz.: automated exposure control; ma/kV adjustment per patient size (including targeted exams where dose is matched to indication; i.e. head); or iterative reconstruction technique. Coronal and sagittal reformatted images were created and reviewed. COMPARISON: No relevant prior studies available. FINDINGS: Lower thorax: Minimal atelectasis. Mild mural thickening vs underdistention of distal esophagus. ABDOMEN: Liver: Unremarkable. Gallbladder and bile ducts: No calcified stones. No ductal dilation. Pancreas: Unremarkable. No ductal dilation. Spleen: No splenomegaly. Adrenals: No mass. Kidneys and ureters: No renal calculi. No hydronephrosis. Stomach and bowel: No definite mural thickening. No obstruction. Appendix: No findings to suggest acute appendicitis. PELVIS: Bladder: Borderline bladder wall thickening, up to 5 mm. Incomplete distention, limiting evaluation. No stones. Reproductive: Unremarkable as visualized. ABDOMEN and PELVIS: Intraperitoneal space: No significant fluid collection. No free air. Bones/joints: No acute fracture. Soft tissues: Mild diffuse stranding within subcutaneous tissues. Vasculature: Mild atherosclerotic disease. No aneurysm. Lymph nodes: No pathologically enlarged lymph nodes. IMPRESSION: 1. No CT evidence of urolithiasis. 2. Mild cystitis vs underdistention. Correlate with urinalysis. 3. Incidental/non-acute findings are described above.
[2016-10-28] MEDS: Piperacillin/Tazobact 2.25 GM in Sodium Chloride 100 ML IVPB SCH (23:34)
[2016-10-29] MEDS: (Novolog) Insulin Aspart, Recombinant 100 u/ml 10 ml vial SC SCH ×4 (07:49→22:12)
[2016-10-29] MEDS: Piperacillin/Tazobact 2.25 GM in Sodium Chloride 100 ML IVPB SCH ×3 (08:39→23:02)
[2016-10-29] MEDS: (Lantus) Insulin Glargine, Recombinant SC SCH (09:35)
--- NOTE | 2016-10-29 11:36 | CP.PCM.CON ---
History of Present Illness - History of Present Illness History of Present Illness: 36 y/o male with ESRD on maintenance HD MWF, IDDM with complications, multiple hospital admissions for abdominal pain is again admitted for severe abdominal pain Past Patient History - Infectious Disease Hx of Infectious Diseases: None - Past Medical History & Family History Past Medical History?: Yes - Past Social History Smoking Status: Light Smoker < 10 Cigarettes Daily - CARDIAC Hx Congestive Heart Failure: Yes Hx Hypercholesterolemia: Yes Hx Hypertension: Yes Hx Peripheral Edema: Yes - PULMONARY Hx Respiratory Disorders: No - NEUROLOGICAL Hx Neurological Disorder: Yes Other/Comment: Bilateral leg neuropathy - HEENT Hx HEENT Problems: Yes Hx Cataracts: Yes Other/Comment: cataract surgery [facility] 10 years ago - RENAL Hx Chronic Kidney Disease: Yes Hx Dialysis: Yes Type of Dialysis Access: L- AV Shunt. Date of Last Dialysis Treatment: 10/27/16 - ENDOCRINE/METABOLIC Hx Endocrine Disorders: Yes Hx Diabetes Mellitus Type 2: Yes - HEMATOLOGICAL/ONCOLOGICAL Hx Anemia: Yes - INTEGUMENTARY Hx Dermatological Problems: No - MUSCULOSKELETAL/RHEUMATOLOGICAL Hx Falls: Yes - GASTROINTESTINAL Hx Gastritis: Yes - GENITOURINARY/GYNECOLOGICAL Hx Genitourinary Disorders: No - PSYCHIATRIC Hx Substance Use: Yes (Marijuana 1/Day.) - SURGICAL HISTORY Hx Surgeries: Yes Hx Vascular Access Device: Yes Other/Comment: RT.PERMACATH INSERTION 12/30. LT.AV SHUNT CREATION 02/17/16. UNDESCENDED TESTES LT. REMOVED DURING CHILDHOOD - ANESTHESIA Hx Anesthesia: Yes Hx Anesthesia Reactions: No Hx Malignant Hyperthermia: No Meds Allergies/Adverse Reactions: Allergies Allergy/AdvReac Type Severity Reaction Status Date / Time No Known Allergies Allergy Verified 10/28/16 19:36 - Medications Medications: Current Medications Amlodipine Besylate (Norvasc) 10 mg PO DAILY [facility] Last Admin: 10/29/16 09:34 Dose: 10 mg Clonidine HCl (Catapres) 0.3 mg PO TID [facility] Last Admin: 10/29/16 09:34 Dose: 0.3 mg Gabapentin (Neurontin) 300 mg PO BID [facility] Last Admin: 10/29/16 09:34 Dose: 300 mg Heparin Sodium (Porcine) (Heparin) 5,000 units SC Q12 [facility] Last Admin: 10/29/16 09:34 Dose: 5,000 units Hydralazine HCl (Apresoline) 50 mg PO Q8 [facility] Last Admin: 10/29/16 07:49 Dose: 50 mg Piperacillin Sod/Tazobactam (Sod 2.25 gm/ Sodium Chloride) 100 mls @ 200 mls/ hr IVPB Q8H [facility] Last Admin: 10/29/16 08:39 Dose: 200 mls/hr Insulin Aspart (Novolog) 0 unit SC ACHS [facility] PRN Reason: Protocol Last Admin: 10/29/16 07:49 Dose: 3 unit Insulin Glargine (Lantus) 20 unit SC DAILY [facility] Last Admin: 10/29/16 09:35 Dose: 20 u Ketorolac Tromethamine (Toradol) 30 mg IVP Q8 PRN PRN Reason: Pain Last Admin: 10/29/16 00:17 Dose: 30 mg Losartan Potassium (Cozaar) 50 mg PO DAILY [facility] Ondansetron HCl (Zofran Inj) 4 mg IVP Q4 PRN PRN Reason: Nausea/Vomiting Pantoprazole Sodium (Protonix Inj) 40 mg IVP DAILY [facility] Last Admin: 10/29/16 09:35 Dose: 40 mg Physical Exam - Constitutional Appears: No Acute Distress Additional comments: Sedated - Head Exam Head Exam: ATRAUMATIC, NORMOCEPHALIC - Eye Exam Additional comments: No icterus - ENT Exam ENT Exam: Mucous Membranes Dry - Neck Exam Additional comments: Neck supple - Respiratory Exam Additional comments: Lungs clear - Cardiovascular Exam Cardiovascular Exam: REGULAR RHYTHM - GI/Abdominal Exam GI & Abdominal Exam: Soft Additional comments: Mild diffuse tenderess - Extremities Exam Additional comments: B/L pedal edema Results - Vital Signs Recent Vital Signs: Last Vital Signs Temp 98.4 F 10/29/16 04:20 Pulse 75 10/29/16 04:20 Resp 20 10/29/16 04:20 BP 189/98 H 10/29/16 10:46 Pulse Ox 97 10/29/16 04:20 - Labs Result Diagrams: 10/28/16 20:19 10/28/16 20:19 Labs: Laboratory Results - last 24 hr 10/28/16 10/29/16 23:52 06:19 POC Glucose (mg/dL) 234 H 295 H Assessment & Plan - Assessment and Plan (Free Text) Assessment: ESRD HTN Abdominal pain Leukocytosis ? source Plan: HD is ordered for today & MWF schedule Will increase UF because Pt appears fluid overloaded urine C&S, blood cultures Abx per medical team
--- NOTE | 2016-10-29 14:22 | CP.PCM.PN ---
Subjective - Date & Time of Evaluation Date of Evaluation: 10/29/16 Time of Evaluation: 09:05 - Subjective Subjective: PGY2 medicine note for Dr. Chadwick Patient is a 36 year old male with history of diabetes, HTN, ESRD on HD MWF who presents to the hospital with complaint of abdominal pain, nausea, and vomiting. Patient was recently discharged after evaluation for similar complaints. Patient had EGD and colonoscopy 10/26 which showed reflux esophagitis with erythematous duodenopathy and external/internal hemorrhoids, respectively. Pathology was negative for H. pylori from EGD stomach antrum specimen and colonoscopy pathology specimen was negative for colitis. Patient admits he did not take any medication at home for nausea as he did not fill the prescriptions since insurance would not cover the cost. Patient states he was tolerating liquids at home and has been tolerating liquids since coming to the hospital. Objective - Vital Signs/Intake and Output Vital Signs (last 24 hours): Temp Pulse Resp BP Pulse Ox 98.4 F 75 20 189/98 H 97 10/29/16 04:20 10/29/16 04:20 10/29/16 04:20 10/29/16 10:46 10/29/16 04:20 Intake and Output: 10/29/16 10/29/16 06:59 18:59 Intake Total 100 Balance 100 - Medications Medications: Current Medications Amlodipine Besylate (Norvasc) 10 mg PO DAILY [facility] Last Admin: 10/29/16 09:34 Dose: 10 mg Clonidine HCl (Catapres) 0.3 mg PO TID [facility] Last Admin: 10/29/16 09:34 Dose: 0.3 mg Gabapentin (Neurontin) 300 mg PO BID [facility] Last Admin: 10/29/16 09:34 Dose: 300 mg Heparin Sodium (Porcine) (Heparin) 5,000 units SC Q12 [facility] Last Admin: 10/29/16 09:34 Dose: 5,000 units Hydralazine HCl (Apresoline) 50 mg PO Q8 [facility] Last Admin: 10/29/16 07:49 Dose: 50 mg Piperacillin Sod/Tazobactam (Sod 2.25 gm/ Sodium Chloride) 100 mls @ 200 mls/ hr IVPB Q8H [facility] Last Admin: 10/29/16 08:39 Dose: 200 mls/hr Insulin Aspart (Novolog) 0 unit SC ACHS [facility] PRN Reason: Protocol Last Admin: 10/29/16 12:59 Dose: 4 unit Insulin Glargine (Lantus) 20 unit SC DAILY [facility] Last Admin: 10/29/16 09:35 Dose: 20 u Ketorolac Tromethamine (Toradol) 30 mg IVP Q8 PRN PRN Reason: Pain Last Admin: 10/29/16 00:17 Dose: 30 mg Losartan Potassium (Cozaar) 50 mg PO DAILY [facility] Last Admin: 10/29/16 12:00 Dose: 50 mg Ondansetron HCl (Zofran Inj) 4 mg IVP Q4 PRN PRN Reason: Nausea/Vomiting Pantoprazole Sodium (Protonix Inj) 40 mg IVP DAILY [facility] Last Admin: 10/29/16 09:35 Dose: 40 mg - Labs Labs: PT 10.4 SECONDS (9.7-12.2) 10/28/16 20:57 INR 0.9 10/28/16 20:57 APTT 27 SECONDS (21-34) 10/28/16 20:57 - Constitutional Appears: No Acute Distress, Chronically Ill - Head Exam Head Exam: ATRAUMATIC, NORMOCEPHALIC - Eye Exam Eye Exam: EOMI - ENT Exam ENT Exam: Mucous Membranes Moist - Respiratory Exam Respiratory Exam: Clear to Ausculation Bilateral, Respiratory Distress. absent : Rales, Rhonchi, Wheezes - Cardiovascular Exam Cardiovascular Exam: +S1, +S2 - GI/Abdominal Exam GI & Abdominal Exam: Soft, Hypoactive Bowel Sounds. absent: Tenderness - Extremities Exam Extremities Exam: absent: Pedal Edema Additional comments: left arm AV fistula with palpable thrill darkened skin to lower extremities - Neurological Exam Neurological Exam: Alert, Awake - Psychiatric Exam Psychiatric exam: Normal Affect - Skin Skin Exam: Dry, Warm Assessment and Plan - Assessment and Plan (Free Text) Assessment: Abdominal pain with nausea and vomiting CT abdomen/ pelvis: Borderline bladder wall thickening, up to 5 mm. Incomplete distention, limiting evaluation. No stones. Soft tissues: Mild diffuse stranding within subcutaneous tissues. Stomach and bowel: No definite mural thickening. No obstruction. Continue protonix 40mg IV daily continue zofran 4mg IV prn toradol 30mg IV q8h prn pain Leukocytosis WBC 22.4 on admission, will continue to monitor continue zosyn q8h f/u blood and urine culture Chronic Kidney Disease on HD Nephrology Consult, Dr. Plasencia HD MWF Diabetes Neurontin 300 mg PO BID [facility] Novolog 0 unit SC ACHS [facility] Lantus 20 unit SC HTN continue home medications: Clonidine HCl (Catapres) 0.3 mg PO TID [facility] Hydralazine HCl (Apresoline) 50 mg PO Q8H [facility] Losartan Potassium (Cozaar) 50 mg PO DAILY [facility] amlodipine (norvasc) 10mg PO daily Prophylaxis Heparin 5,000 units SC Q12H [facility] Protonix Inj 40 mg IVP DAILY [facility] patient encouraged to discontinue marijuana use All medical management as per Dr. Chadwick
[2016-10-29] MEDS ORDERED: Epoetin Alfa Dialysis 3000 UNIT/ML Inj SC SCH (17:02)
[2016-10-29] MEDS ORDERED: Epoetin Alfa Dialysis 3000 UNIT/ML Inj IV SCH (17:34)
[2016-10-30] MEDS ORDERED: (Novolog) Insulin Aspart, Recombinant 100 u/ml 10 ml vial SC ONE ×2 (02:58→03:03)
[2016-10-30] MEDS: Piperacillin/Tazobact 2.25 GM in Sodium Chloride 100 ML IVPB SCH ×3 (06:31→22:30)
[2016-10-30] MEDS: (Novolog) Insulin Aspart, Recombinant 100 u/ml 10 ml vial SC SCH ×4 (08:30→21:30)
[2016-10-30] MEDS: (Lantus) Insulin Glargine, Recombinant SC SCH (08:30)
[2016-10-30 08:34] LABS: BILIRUBIN,TOTAL 0.5 mg/dL (0.2-1.3); POTASSIUM 5.3 mmol/L (3.6-5.2)
[2016-10-30 08:35] LABS: ALB/GLOB RATIO 1.1 (1.0-2.1); CALCIUM 7.7 mg/dl (8.6-10.4); PHOSPHOROUS 4.8 mg/dL (2.5-4.5); TOTAL PROTEIN 6.4 g/dL (6.3-8.3)
[2016-10-30 08:36] LABS: MAGNESIUM 1.7 mg/dL (1.6-2.3)
[2016-10-30 09:47] LABS: BASO # 0.1 K/uL (0.0-0.2); BASO % 0.7 % (0.0-2.0); EOS # 0.3 K/uL (0.0-0.7); EOS % 2.4 % (0.0-4.0); HEMATOCRIT 29.4 % (35.0-51.0); LYMPH # 1.4 K/uL (1.0-4.3); LYMPH % 10.4 % (20.0-40.0); MEAN CELL VOLUME 91.4 fL (80.0-94.0); MEAN CORPUSCULAR HEMOGLOBIN 28.8 pg (27.0-31.0); MEAN CORPUSCULAR HGB CONC 31.5 g/dL (33.0-37.0); MEAN PLATELET VOLUME 9.6 fL (7.2-11.7); MONO % 7.5 % (0.0-10.0); RED CELL DISTRIBUTION WIDTH 16.5 % (11.5-14.5); WHITE BLOOD COUNT 13.9 K/uL (4.8-10.8)
[2016-10-30] MEDS ORDERED: (Novolog) Insulin Aspart, Recombinant 100 u/ml 10 ml vial SC SCH (16:30)
[2016-10-30] MEDS ORDERED: (Lantus) Insulin Glargine, Recombinant SC SCH (22:00)
[2016-10-31] MEDS: Piperacillin/Tazobact 2.25 GM in Sodium Chloride 100 ML IVPB SCH ×3 (06:39→22:40)
--- NOTE | 2016-10-31 07:10 | CON ---
DATE: ENDOCRINOLOGY CONSULT LOCATION: Room 659. HISTORY OF PRESENT ILLNESS: This is a 36-year-old male with known history of type 1 insulin dependent diabetes mellitus presenting here with severe and diffuse abdominal pain and currently undergoing GI workup at this time and is also being referred now for diabetic evaluation because of marked hyperglycemic accelerations as noted thereof. PAST MEDICAL HISTORY: As mentioned above, history of type 1 insulin-dependent diabetes, currently using Lantus, given at 15 units subcutaneous once daily in the morning as ordered. He denies the usage of rapid acting insulin at this time and admits to marked hyperglycemic accelerations at home as noted. History of diabetic retinopathy, polyneuropathy and nephropathy with end-stage renal disease and dialysis dependent as noted, history of chronic gastritis, persistent upper abdominal pain, also history of coronary artery disease with previous admissions for congestive heart failure and fluid overload, and history of a prior colonic resection. FAMILY HISTORY: Positive for hypertension and diabetes. SOCIAL HISTORY: The patient has a supportive family, admits to cigarette smoking half a pack a day for many years. No other known substance use. REVIEW OF SYSTEMS: As mentioned above, admits to generalized body weakness with episodic bouts of dizziness and lightheadedness, worse on the day of admission, also admits to bifrontal headaches with visual blurring as noted. No chest pains or palpitations, but admits to progressive shortness of breath, especially on exertion. His oral intake is variable with nausea, dyspepsia and supervening diffuse abdominal pain as noted. PHYSICAL EXAMINATION: GENERAL: This is an average built male, in no apparent distress. VITAL SIGNS: Blood pressure 190/100 on admission, pulse of 100 beats per minute regular, temperature 98, respirations 20, height is 5 feet 7 inches, and weight is 164 pounds. HEENT: Head is normocephalic. Eyes are anicteric with pink conjunctivae. Funduscopy not possible at this time. Ears, nose and throat otherwise normal. NECK: Supple. Thyroid gland is normal size. No carotid bruits or any cervical adenopathy. CARDIOPULMONARY: Some adynamic precordium. S1 and S2 is rapid and regular. LUNGS: Shows scattered rhonchi. ABDOMEN: Flat and soft with positive bowel sounds. EXTREMITIES: There is +1 bipedal edema. Pulses are diminished peripherally. LABORATORY DATA: His chemistry showed BUN of 34, sodium 131, potassium 5.3, chloride 95, CO2 of 26, glucose 458, and creatinine 4.1. His glucose levels have ranged from 309 to 408 and over 500 mg/dL. ASSESSMENT: This is a 36-year-old male with uncontrolled and decompensated type 1 insulin-dependent diabetes presenting here with diffuse abdominal anaya, undergoing gastroenterology workup at this time. He also has diabetic microvascular complications of retinopathy, polyneuropathy, and nephropathy with end-stage renal disease and dialysis dependent. He also has diabetic macrovascular complication of coronary artery disease, peripheral arterial disease, and vasculopathy as noted. PLAN OF MANAGEMENT: As discussed with the patient and the staff. The imperative need for tighter metabolic control emphasized at this time, especially to delay the microvascular complications of retinopathy and polyneuropathy as noted. We will start the patient right away on the more physiologic basal and bolus insulin regimen as noted with Lantus to be started at 30 units subcutaneous at bedtime daily to start tonight. We will add Novolog given as 12 units subcutaneous t.i.d. before meals, to start at dinner time today as ordered. We will modify the coverage scale to obviate hypoglycemia and detailed orders have been given, using Novolog insulin as given. We will obtain serial chemistries and supplement accordingly as needed. We will also obtain a hemoglobin A1c to confirm his prior poor glycemic control and baseline thyroid function studies, and lipid panel will be ordered. We will also add a parathyroid hormone level to screen for underlying secondary hyperparathyroidism. We will reinforce diabetic education and dietary instructions at the time of this admission. We will follow and advice accordingly. Cristal Trotter MD
[2016-10-31] MEDS: (Novolog) Insulin Aspart, Recombinant 100 u/ml 10 ml vial SC SCH ×6 (08:10→21:58)
[2016-10-31 09:16] LABS: BASO # 0.1 K/uL (0.0-0.2); BASO % 0.6 % (0.0-2.0); EOS # 0.5 K/uL (0.0-0.7); EOS % 3.8 % (0.0-4.0); HEMATOCRIT 30.8 % (35.0-51.0); LYMPH # 1.6 K/uL (1.0-4.3); MEAN CELL VOLUME 91.3 fL (80.0-94.0); MEAN CORPUSCULAR HEMOGLOBIN 28.8 pg (27.0-31.0); MEAN CORPUSCULAR HGB CONC 31.5 g/dL (33.0-37.0); MEAN PLATELET VOLUME 10.3 fL (7.2-11.7); MONO % 7.4 % (0.0-10.0); RED CELL DISTRIBUTION WIDTH 16.8 % (11.5-14.5); WHITE BLOOD COUNT 14.1 K/uL (4.8-10.8)
[2016-10-31 09:31] LABS: POTASSIUM 5.7 mmol/L (3.6-5.2)
[2016-10-31 09:33] LABS: BILIRUBIN,TOTAL 0.5 mg/dL (0.2-1.3)
[2016-10-31 09:34] LABS: ALB/GLOB RATIO 1.1 (1.0-2.1); PHOSPHOROUS 7.3 mg/dL (2.5-4.5); TOTAL PROTEIN 6.4 g/dL (6.3-8.3)
[2016-10-31 09:35] LABS: CALCIUM 7.9 mg/dl (8.6-10.4); MAGNESIUM 1.7 mg/dL (1.6-2.3)
[2016-10-31 10:04] LABS: THYROID STIMULATING HORMONE 1.54 mIU/L (0.46-4.68)
--- NOTE | 2016-10-31 11:42 | PN ---
DATE: ENDO FOLLOWUP NOTE LOCATION: Room 659 SUBJECTIVE: This is a 36-year-old male with recent uncontrolled type 1 insulin-dependent diabetes presenting with marked hyperglycemic accelerations and is now being followed closely for metabolic management. He also has diabetic microvascular complications of retinopathy, polyneuropathy and nephropathy with end-stage renal disease and dialysis dependent. He has ongoing GI workup at this time for persistent and recurrent abdominal pain as noted. LABORATORY The latest chemistry shows a BUN of 64, sodium 132, potassium of 5.7, chloride 94, CO2 of 26, glucose 334, creatinine 6.3. His glucose levels overnight have ranged from 168 to 260 and 380 mg/dL. ASSESSMENT AND PLAN: So, at this time, we will modify once again his basal and bolus insulin regimen and increase the NovoLog to 14 units subcutaneously t.i.d. before meals to start at lunch by today as ordered. We will titrate incrementally as indicated to optimize metabolic control. We will also continue the low-dose correction scale using NovoLog insulin as given, as noted. We will also increase the basal insulin with Lantus to be given as 40 units subcutaneously at bedtime daily to start tonight. We will titrate incrementally as indicated to optimize metabolic control. We will obtain serial chemistries and supplement accordingly as needed. We will follow up with you. Cristal Trotter MD
[2016-10-31] MEDS ORDERED: Sod Polystyrene Sulf 15 gm/60 ml Oral Susp PO ONE (18:39)
[2016-10-31] MEDS ORDERED: (Lantus) Insulin Glargine, Recombinant SC SCH (22:00)
[2016-11-01] MEDS: Piperacillin/Tazobact 2.25 GM in Sodium Chloride 100 ML IVPB SCH (06:31)
[2016-11-01] MEDS: (Novolog) Insulin Aspart, Recombinant 100 u/ml 10 ml vial SC SCH ×4 (07:52→12:54)
--- NOTE | 2016-11-01 08:32 | HP ---
SUBJECTIVE: Mr. Haynes is a 36-year-old male with frequent admissions to [facility] with nausea, vomiting, and shortness of breath. The patient came to the ER, advised admission. PHYSICAL EXAMINATION: GENERAL: The patient is awake, alert, and oriented. VITAL SIGNS: Temperature 98 and pulse 97. HEENT: Within normal limits. NECK: Supple. LUNGS: Clear. HEART: Regular. ABDOMEN: Soft. EXTREMITIES: No edema. IMPRESSION: Gastritis and marijuana induced . The patient is advised bedrest, supportive care. Lucero Chadwick MD
--- NOTE | 2016-11-01 11:11 | CP.PCM.PN ---
Subjective - Date & Time of Evaluation Date of Evaluation: 11/01/16 Time of Evaluation: 11:00 - Subjective Subjective: Progress note. Attending: Dr. Chadwick Pt seen and examined at bedside. No acute distress. No events overnight. Abdominal pain and N/V likely due to diabetic gastroparesis/marijuana use. No fevers, chills, chest pain, shortness of breath. Objective - Vital Signs/Intake and Output Vital Signs (last 24 hours): Temp Pulse Resp BP Pulse Ox 98.0 F 80 18 146/86 99 11/01/16 08:20 11/01/16 08:20 11/01/16 08:20 11/01/16 08:20 11/01/16 08:20 Intake and Output: 11/01/16 11/01/16 06:59 18:59 Intake Total 600 Balance 600 - Medications Medications: Current Medications Amlodipine Besylate (Norvasc) 10 mg PO DAILY [facility] Last Admin: 11/01/16 10:30 Dose: 10 mg Clonidine HCl (Catapres) 0.3 mg PO TID [facility] Last Admin: 11/01/16 10:30 Dose: 0.3 mg Epoetin Oumar (Procrit) 3,000 unit IV MWF [facility] Stop: 11/03/16 09:01 Last Admin: 10/29/16 18:03 Dose: 3,000 unit Gabapentin (Neurontin) 300 mg PO BID [facility] Last Admin: 11/01/16 10:32 Dose: 300 mg Hydralazine HCl (Apresoline) 100 mg PO Q8 [facility] Last Admin: 11/01/16 06:28 Dose: 100 mg Piperacillin Sod/Tazobactam (Sod 2.25 gm/ Sodium Chloride) 100 mls @ 200 mls/ hr IVPB Q8H [facility] Last Admin: 11/01/16 06:31 Dose: 200 mls/hr Insulin Aspart (Novolog) 0 unit SC ACHS [facility] PRN Reason: Protocol Last Admin: 11/01/16 07:52 Dose: Not Given Insulin Aspart (Novolog) 14 unit SC AC [facility] Last Admin: 11/01/16 08:54 Dose: 14 unit Insulin Glargine (Lantus) 40 unit SC HS [facility] Last Admin: 10/31/16 22:00 Dose: 40 units Ketorolac Tromethamine (Toradol) 30 mg IVP Q8 PRN PRN Reason: Pain, moderate (4-7) Last Admin: 11/01/16 08:55 Dose: 30 mg Losartan Potassium (Cozaar) 50 mg PO DAILY [facility] Last Admin: 11/01/16 10:30 Dose: 50 mg Ondansetron HCl (Zofran Inj) 4 mg IVP Q4 PRN PRN Reason: Nausea/Vomiting Pantoprazole Sodium (Protonix Inj) 40 mg IVP DAILY [facility] Last Admin: 11/01/16 10:29 Dose: 40 mg - Labs Labs: 10/31/16 09:03 10/31/16 09:03 PT 10.4 SECONDS (9.7-12.2) 10/28/16 20:57 INR 0.9 10/28/16 20:57 APTT 27 SECONDS (21-34) 10/28/16 20:57 - Constitutional Appears: Non-toxic, No Acute Distress - Head Exam Head Exam: ATRAUMATIC, NORMAL INSPECTION, NORMOCEPHALIC - Eye Exam Eye Exam: EOMI - ENT Exam ENT Exam: Mucous Membranes Moist - Respiratory Exam Respiratory Exam: NORMAL BREATHING PATTERN. absent: Respiratory Distress - Cardiovascular Exam Cardiovascular Exam: +S1, +S2 - GI/Abdominal Exam GI & Abdominal Exam: Tenderness, Normal Bowel Sounds - Extremities Exam Extremities Exam: Full ROM, Normal Inspection - Neurological Exam Neurological Exam: Alert, Awake, Oriented x3 - Psychiatric Exam Psychiatric exam: Normal Affect, Normal Mood - Skin Skin Exam: Dry, Intact, Normal Color, Warm Assessment and Plan - Assessment and Plan (Free Text) Assessment: This is a 36 yo male with past medical hx of ESRD, DM, HTN presenting with abdominal pain and nausea and vomiting 1. Abdominal pain/N/V -likely secondary to diabetic gastroparesis and cyclic vomiting from chronic marijuana use -continue zofran prn -continue toradol for pain -recent EGD showed esophagitis/duodenopathy/internal and external hemorrhoids 2. Hx of DM -changed gabapentin to 300 daily due to increased CR -continue novolog 14 units AC -continue lantus 40 units HS -A1C 10.6 3. Leukocytosis -continue zosyn IV -ct scan abdomen/pelvis shows mild cystitis vs underdistention 4. hx of ESRD -HD MWF -continue procrit 5. hx of HTN -continue norvasc 10 -continue hydralazine 100 q 8 -continue clonidine TID 6. GI/DVT ppx -heparin 5000 q 12 -protonix daily Dispo: plan for discharge today Discussed with Dr. Chadwick
--- NOTE | 2016-11-01 13:09 | CP.PCM.PN ---
Subjective - Date & Time of Evaluation Date of Evaluation: 11/01/16 Time of Evaluation: 12:40 - Subjective Subjective: Appears edematous No SOB Objective - Vital Signs/Intake and Output Vital Signs (last 24 hours): Temp Pulse Resp BP Pulse Ox 98.0 F 80 18 146/86 99 11/01/16 08:20 11/01/16 08:20 11/01/16 08:20 11/01/16 08:20 11/01/16 08:20 Intake and Output: 11/01/16 11/01/16 06:59 18:59 Intake Total 600 Balance 600 - Medications Medications: Current Medications Amlodipine Besylate (Norvasc) 10 mg PO DAILY [facility] Last Admin: 11/01/16 10:30 Dose: 10 mg Clonidine HCl (Catapres) 0.3 mg PO TID [facility] Last Admin: 11/01/16 10:30 Dose: 0.3 mg Epoetin Oumar (Procrit) 3,000 unit IV MWF [facility] Stop: 11/03/16 09:01 Last Admin: 10/29/16 18:03 Dose: 3,000 unit Gabapentin (Neurontin) 300 mg PO BID [facility] Last Admin: 11/01/16 10:32 Dose: 300 mg Hydralazine HCl (Apresoline) 100 mg PO Q8 [facility] Last Admin: 11/01/16 06:28 Dose: 100 mg Piperacillin Sod/Tazobactam (Sod 2.25 gm/ Sodium Chloride) 100 mls @ 200 mls/ hr IVPB Q8H [facility] Last Admin: 11/01/16 06:31 Dose: 200 mls/hr Insulin Aspart (Novolog) 0 unit SC ACHS [facility] PRN Reason: Protocol Last Admin: 11/01/16 12:54 Dose: Not Given Insulin Aspart (Novolog) 14 unit SC AC [facility] Last Admin: 11/01/16 12:53 Dose: 14 unit Insulin Glargine (Lantus) 40 unit SC HS [facility] Last Admin: 10/31/16 22:00 Dose: 40 units Ketorolac Tromethamine (Toradol) 30 mg IVP Q8 PRN PRN Reason: Pain, moderate (4-7) Last Admin: 11/01/16 08:55 Dose: 30 mg Losartan Potassium (Cozaar) 50 mg PO DAILY [facility] Last Admin: 11/01/16 10:30 Dose: 50 mg Ondansetron HCl (Zofran Inj) 4 mg IVP Q4 PRN PRN Reason: Nausea/Vomiting Pantoprazole Sodium (Protonix Inj) 40 mg IVP DAILY [facility] Last Admin: 11/01/16 10:29 Dose: 40 mg - Labs Labs: 10/31/16 09:03 10/31/16 09:03 PT 10.4 SECONDS (9.7-12.2) 10/28/16 20:57 INR 0.9 10/28/16 20:57 APTT 27 SECONDS (21-34) 10/28/16 20:57 - Head Exam Head Exam: ATRAUMATIC, NORMOCEPHALIC - Respiratory Exam Additional comments: Lungs clear - Cardiovascular Exam Cardiovascular Exam: REGULAR RHYTHM - Extremities Exam Additional comments: 2+ bipedal edema Assessment and Plan - Assessment and Plan (Free Text) Assessment: ESRD, volume overload HTN IDDM Plan: For dialysis today UF is incresed to 4 Kg Instructed on fluid restriction
[2016-11-01 14:22] LABS: BASO # 0.2 K/uL (0.0-0.2); BASO % 1.2 % (0.0-2.0); EOS # 0.6 K/uL (0.0-0.7); EOS % 3.8 % (0.0-4.0); HEMATOCRIT 27.1 % (35.0-51.0); LYMPH # 1.6 K/uL (1.0-4.3); LYMPH % 10.5 % (20.0-40.0); MEAN CELL VOLUME 91.5 fL (80.0-94.0); MEAN CORPUSCULAR HEMOGLOBIN 28.9 pg (27.0-31.0); MEAN CORPUSCULAR HGB CONC 31.5 g/dL (33.0-37.0); MONO # 1.3 K/uL (0.0-0.8); MONO % 8.7 % (0.0-10.0); RED CELL DISTRIBUTION WIDTH 16.7 % (11.5-14.5); WHITE BLOOD COUNT 15.3 K/uL (4.8-10.8)
[2016-11-01 14:37] LABS: BILIRUBIN,TOTAL 0.3 mg/dL (0.2-1.3); CALCIUM 7.8 mg/dl (8.6-10.4); MAGNESIUM 1.6 mg/dL (1.6-2.3); PHOSPHOROUS 7.7 mg/dL (2.5-4.5); POTASSIUM 6.1 mmol/L (3.6-5.2)
[2016-11-01] MEDS ORDERED: Epoetin Alfa Dialysis 3000 UNIT/ML Inj IV SCH (17:45)
[2016-11-01 18:30] VITALS: BP 149/74; PULSE 84; RESP 16; TEMP 98.7; O2SAT 96
--- NOTE | 2016-11-01 21:08 | PN ---
ENDOCRINOLOGY FOLLOWUP NOTE LOCATION: In room: 659. SUBJECTIVE: This is a 36-year-old male with recent uncontrolled type 1 insulin-dependent diabetes, presenting here with abdominal pain and intractable vomiting episodes and is now being followed closely for metabolic management. He has since then improved clinically and metabolically as noted thereof. He has ongoing hemodialysis noted and is scheduled for eventual discharge post dialysis. His glycemic levels are fluctuating, but improved and have ranged from 120 to 166 and 276 mg/dL. His latest chemistry showed the BUN of 89, sodium 133, potassium 6.1, chloride 98, CO2 of 18, glucose 120, and creatinine 7.8. So at this time, we will modify once again his basal and bolus insulin regimen and increase the Lantus to 44 units subcu at bedtime daily to start tonight. We will continue the NovoLog given as 14 units subcu t.i.d. before meals to start at dinner time today as ordered. We will give the patient prescriptions for both his NovoLog and Lantus vials as ordered. We will follow and advise accordingly. Cristal Trotter MD
[2016-11-01] MEDS ORDERED: (Lantus) Insulin Glargine, Recombinant SC SCH (22:00)
== END 2016-11-01 19:05 | disposition home or self-care (01) | DRG 73 ==
LOC: C.ER 19:30 → C.6T 23:16
PROVIDERS: ADMIT Internal Medicine Pulmonary Disease; ATTEND Internal Medicine Pulmonary Disease
PROC: 5A1D60Z (ICD-10-PCS; principal; 2016-10-29)
DX: E10.43 Type 1 diabetes mellitus with diabetic autonomic (poly)neuropathy (principal); N18.6 End stage renal disease; I13.2 Hypertensive heart and chronic kidney disease with heart failure and with stage 5 chronic kidney disease, or end stage renal disease; E10.22 Type 1 diabetes mellitus with diabetic chronic kidney disease; E10.51 Type 1 diabetes mellitus with diabetic peripheral angiopathy without gangrene; K31.84 Gastroparesis; D72.829 Elevated white blood cell count, unspecified; E10.319 Type 1 diabetes mellitus with unspecified diabetic retinopathy without macular edema; E10.42 Type 1 diabetes mellitus with diabetic polyneuropathy; E78.00 Pure hypercholesterolemia, unspecified; F12.90 Cannabis use, unspecified, uncomplicated; F17.210 Nicotine dependence, cigarettes, uncomplicated; G43.A0 Cyclical vomiting, in migraine, not intractable; I25.10 Atherosclerotic heart disease of native coronary artery without angina pectoris; I50.9 Heart failure, unspecified; K21.0 Gastro-esophageal reflux disease with esophagitis; K29.70 Gastritis, unspecified, without bleeding; K64.4 Residual hemorrhoidal skin tags; Z99.2 Dependence on renal dialysis; Z79.4 Long term (current) use of insulin; Z79.899 Other long term (current) drug therapy

== ENCOUNTER 2016-11-06 15:07 | Inpatient (IN) | payer MEDICAID, MEDICARE ==
[2016-11-06 15:08] VITALS: BMI 27.0
--- NOTE | 2016-11-06 15:35 | C.PDOC ---
History Of Present Illness Vishal Haynes is a 36 year old male, with a past medical history of diabetes, gastritis and hypertension, who was brought to the emergency department by EMS complaining of abdominal pain associated with nausea, and vomit onset prior to arrival. Patient was brought to the ED after dialysis treatment. Patient receives dialysis every Tuesday, Tuesday and Tuesday, but he states he had an extra 3 hr session of dialysis today. Patient is actively vomiting and states he has had similar symptoms in the past. PMD: Lucero Chadwick Time Seen by Provider: 11/06/16 15:21 Chief Complaint (Nursing): GI Problem History Per: Patient History/Exam Limitations: no limitations Onset/Duration Of Symptoms: Hrs (prior to arrival) Associated Symptoms: Nausea, Vomiting Past Medical History Reviewed: Historical Data, Nursing Documentation, Vital Signs Vital Signs: Last Vital Signs Temp 98.7 F 11/06/16 20:26 Pulse 96 H 11/06/16 20:37 Resp 16 11/06/16 20:37 BP 196/94 H 11/06/16 20:37 Pulse Ox 97 11/06/16 20:37 - Medical History PMH: Anemia, CHF, Diabetes (type I), Gastritis, HTN, Hypercholesterolemia, Peripheral Edema, End Stage Renal Disease, Chronic Kidney Disease Other Surgeries: Cataract surgery, and orchiopexy - [facility] Procedures BYPASS LEFT BRACHIAL ARTERY TO UPPER ARM VEIN, OPEN APPROACH (02/17/16) EXCISION OF ASCENDING COLON, ENDO, DIAGN (12/19/15) EXCISION OF DESCENDING COLON, ENDO, DIAGN (10/22/16) EXCISION OF DUODENUM, ENDO, DIAGN (03/25/16) EXCISION OF LARGE INTESTINE, ENDO, DIAGN (05/06/16) EXCISION OF MIDDLE ESOPHAGUS, ENDO, DIAGN (03/25/16) EXCISION OF STOMACH, ENDO, DIAGN (10/22/16) EXCISION OF TRANSVERSE COLON, ENDO, DIAGN (05/06/16) INSERTION OF INFUSION DEV INTO SUP VENA CAVA, PERC APPROACH (12/19/15) PERFORMANCE OF URINARY FILTRATION, MULTIPLE (10/28/16) PERFORMANCE OF URINARY FILTRATION, SINGLE (10/16/16) REPOSITION LEFT BASILIC VEIN, OPEN APPROACH (05/25/16) ULTRASONOGRAPHY OF SUPERIOR VENA CAVA, GUIDANCE (12/19/15) Family History: States: Unknown Family Hx - Social History Hx Tobacco Use: Yes (some days) Hx Alcohol Use: No Hx Substance Use: Yes (Marijuana 1/Day.) - Immunization History Hx Tetanus Toxoid Vaccination: Yes Hx Influenza Vaccination: Yes Hx Pneumococcal Vaccination: Yes Review Of Systems Except As Marked, All Systems Reviewed And Found Negative. Constitutional: Negative for: Fever Gastrointestinal: Positive for: Vomiting, Abdominal Pain Physical Exam - Physical Exam Additional Physical Exam Comments: Constitutional: Some acute distress. Head: Normocephalic. Atraumatic. Eyes: PERRL. ENT: Moist mucous membranes. Neck: Supple. Cardiovascular: Regular rate. Radial pulse 2+ bilaterally. Chest: No tenderness. Respiratory: Clear to auscultation bilaterally. GI: Soft. Nontender. Nondistended. Back: No CVA tenderness. Musculoskeletal: No tenderness or swelling of extremities. Left arm fistula Skin: No rash. Neurologic: Alert, no focal deficit. ED Course And Treatment - Laboratory Results Result Diagrams: 11/06/16 15:55 11/06/16 15:55 ECG Rhythm: Sinus Rhythm (NORMAL), ST/T Changes (No ST elevation) Rate From EC O2 Sat by Pulse Oximetry: 96 (RA) Pulse Ox Interpretation: Normal Medical Decision Making Medical Decision Making: Initial Plan: --EKG --Comp Metabolic Panel --Lipase --CBC w/ differential --Chest Portable [RAD] --Morphine 4 mg IVP --Zofran Inj 8 mg IVP --reevaluation -Patient has had multiple visits to the ED with this being the 4th visit this month. Typically kept overnight for intractable vomiting. 1640 Chest X-ray Findings: Diffuse increased interstitial lung markings which may represent venous congestion versus edema versus interstitial infiltrate. Clinical correlation. Mild patchy increased markings at the lung bases. Heart size within normal limits. Right peritracheal opacity might represent prominent vasculature. Productive change at the end of the 1st right rib. Degenerative changes in the spine. Impression: Diffuse increased interstitial lung markings which may represent venous congestion versus edema versus interstitial infiltrate. Clinical correlation. Mild patchy increased markings at the lung bases. Heart size within normal limits. Right peritracheal opacity might represent prominent vasculature. Productive change at the end of the 1st right rib. Degenerative changes in the spine. Patient has continued to vomit while in ED. Dr. Chadwick accepts patient to his service for intractible vomiting. Scribe Attestation Written by Curtis Lira acting as a scribe for João Anderson MD All medical record entries made by the Scribe were at my direction and personally dictated by me. I have reviewed the chart and agree that the record accurately reflects my personal performance of the history, physical exam, medical decision making, and the department course for this patient. I have also personally directed, reviewed, and agree with the discharge instructions and disposition. Disposition Discussed With .: Lucero Chadwick - Disposition Disposition: HOSPITALIZED Disposition Time: 17:35 Condition: FAIR - Clinical Impression Clinical Impression: Intractable vomiting with nausea
[2016-11-06 16:02] LABS: BASO # 0.2 K/uL (0.0-0.2); EOS # 0.2 K/uL (0.0-0.7); EOS % 1.3 % (0.0-4.0); HEMATOCRIT 29.3 % (35.0-51.0); LYMPH # 0.6 K/uL (1.0-4.3); MEAN CELL VOLUME 89.8 fL (80.0-94.0); MEAN CORPUSCULAR HEMOGLOBIN 28.9 pg (27.0-31.0); MEAN CORPUSCULAR HGB CONC 32.1 g/dL (33.0-37.0); MONO # 1.7 K/uL (0.0-0.8); MONO % 10.5 % (0.0-10.0); NRBC % 0.1 % (0.0-2.0); PLATELET COUNT 334 K/uL (130-400); RED CELL DISTRIBUTION WIDTH 17.1 % (11.5-14.5); WHITE BLOOD COUNT 16.3 K/uL (4.8-10.8)
[2016-11-06] MEDS ORDERED: Morphine 4 MG/ML VIAL ONE (16:09)
[2016-11-06 16:11] LABS: POTASSIUM 3.7 mmol/L (3.6-5.2)
[2016-11-06 16:13] LABS: BILIRUBIN,TOTAL 0.6 mg/dL (0.2-1.3)
[2016-11-06 16:14] LABS: CALCIUM 9.1 mg/dl (8.6-10.4); TOTAL PROTEIN 7.3 g/dL (6.3-8.3)
--- NOTE | 2016-11-06 16:41 | RAD ---
Chest x-ray single frontal view History: Vomiting. Comparison: None available. Findings: Diffuse increased interstitial lung markings which may represent venous congestion versus edema versus interstitial infiltrate. Clinical correlation. Mild patchy increased markings at the lung bases. Heart size within normal limits. Right peritracheal opacity might represent prominent vasculature. Productive change at the end of the 1st right rib. Degenerative changes in the spine. Impression: Diffuse increased interstitial lung markings which may represent venous congestion versus edema versus interstitial infiltrate. Clinical correlation. Mild patchy increased markings at the lung bases. Heart size within normal limits. Right peritracheal opacity might represent prominent vasculature. Productive change at the end of the 1st right rib. Degenerative changes in the spine.
[2016-11-06 17:34] LABS: EOSINOPHIL 4 % (0-4); NEUTROPHIL 84 % (50-75); TOTAL CELLS COUNTED 100
[2016-11-06] MEDS ORDERED: Sodium Chloride 0.9% 1,000 ML ONE (19:50)
[2016-11-06] MEDS: Sodium Chloride 0.45% 1,000 ML IV SCH (19:55)
[2016-11-06] MEDS ORDERED: Labetalol 25mg/5ml Syringe IVP STA (20:04)
[2016-11-06] MEDS ORDERED: Labetalol 25mg/5ml Syringe ONE (20:24)
[2016-11-06] MEDS: (Lantus) Insulin Glargine, Recombinant SC SCH (22:10)
[2016-11-06] MEDS: (Novolog) Insulin Aspart, Recombinant 100 u/ml 10 ml vial SC SCH (22:15)
[2016-11-07] MEDS: (Novolog) Insulin Aspart, Recombinant 100 u/ml 10 ml vial SC SCH ×4 (08:33→22:29)
--- NOTE | 2016-11-07 11:42 | CP.PCM.CON ---
History of Present Illness - History of Present Illness History of Present Illness: Vascular surgery Dr. Cole 36 y/o M w/ PMHx of CHF, HTN, DM2, ESRD HD T, Th, Sa was BIBA from dialysis on w/ hypertensive urgency. Per nursing, pt had systolic of 200, was nauseous, vomiting, and c/o headache. Pt was admitted. Surgery consulted for continued bleeding of dialysis puncture site. Nurse describes bleed as non-pulsitile, oozing. Won pressure bandage applied as per Dr. Cole's instructions. Pt sleeping at time of interview. PMHx: CHF, HTN, HLD, edema, neuropathy, ESRD, DM2, GERD Meds: reviewed in chart NKDA PSHx: L AVF, colonoscopy, EDG, orchiectomy SHx: (+) tobacco, marijuana use. denies EtOH use FHx: noncontributory Review of Systems - Review of Systems Systems not reviewed;Unavailable: Other (sleeping) Past Patient History - Infectious Disease Hx of Infectious Diseases: None - Past Medical History & Family History Past Medical History?: Yes - Past Social History Smoking Status: Light Smoker < 10 Cigarettes Daily - CARDIAC Hx Congestive Heart Failure: Yes Hx Hypercholesterolemia: Yes Hx Hypertension: Yes Hx Peripheral Edema: Yes - PULMONARY Hx Respiratory Disorders: No - NEUROLOGICAL Hx Neurological Disorder: Yes Other/Comment: Bilateral leg neuropathy - HEENT Hx HEENT Problems: Yes Hx Cataracts: Yes Other/Comment: cataract surgery [facility] 10 years ago - RENAL Date of Last Dialysis Treatment: 11/06/16 - ENDOCRINE/METABOLIC Hx Endocrine Disorders: Yes Hx Diabetes Mellitus Type 2: Yes - HEMATOLOGICAL/ONCOLOGICAL Hx Anemia: Yes - INTEGUMENTARY Hx Dermatological Problems: No - MUSCULOSKELETAL/RHEUMATOLOGICAL Hx Falls: Yes - GASTROINTESTINAL Hx Gastritis: Yes - GENITOURINARY/GYNECOLOGICAL Hx Genitourinary Disorders: No - PSYCHIATRIC Hx Substance Use: (marijuana 1 per day) - SURGICAL HISTORY Hx Surgeries: Yes Hx Vascular Access Device: Yes Other/Comment: RT.PERMACATH INSERTION 12/30. LT.AV SHUNT CREATION 02/17/16. UNDESCENDED TESTES LT. REMOVED DURING CHILDHOOD - ANESTHESIA Hx Anesthesia: Yes Hx Anesthesia Reactions: No Hx Malignant Hyperthermia: No Has any member of the family had a problem w/ anesthesia?: Yes Meds Allergies/Adverse Reactions: Allergies Allergy/AdvReac Type Severity Reaction Status Date / Time No Known Allergies Allergy Verified 10/28/16 19:36 - Medications Medications: Current Medications Amlodipine Besylate (Norvasc) 10 mg PO DAILY [facility] Last Admin: 11/07/16 10:21 Dose: 10 mg Aspirin (Ecotrin) 81 mg PO DAILY [facility] Last Admin: 11/07/16 10:21 Dose: 81 mg Clonidine HCl (Catapres) 0.3 mg PO TID [facility] Last Admin: 11/07/16 10:21 Dose: 0.3 mg Epoetin Oumar (Procrit) 3,000 unit SC [facility] Famotidine (Pepcid) 20 mg IVP DAILY [facility] Last Admin: 11/07/16 10:21 Dose: 20 mg Gabapentin (Neurontin) 300 mg PO DAILY [facility] Last Admin: 11/07/16 10:21 Dose: 300 mg Hydralazine HCl (Apresoline) 100 mg PO Q8 [facility] Last Admin: 11/07/16 05:19 Dose: 100 mg Sodium Chloride (Sodium Chloride 0.45%) 1,000 mls @ 40 mls/hr IV .Q24H [facility] Last Admin: 11/06/16 19:55 Dose: 40 mls/hr Insulin Aspart (Novolog) 0 unit SC ACHS [facility] PRN Reason: Protocol Last Admin: 11/07/16 08:33 Dose: Not Given Insulin Glargine (Lantus) 40 unit SC [facility] Last Admin: 11/06/16 22:10 Dose: 40 units Ketorolac Tromethamine (Toradol) 30 mg IVP Q8 PRN PRN Reason: Pain, moderate (4-7) Last Admin: 11/07/16 07:01 Dose: 30 mg Losartan Potassium (Cozaar) 50 mg PO DAILY [facility] Last Admin: 11/07/16 10:21 Dose: 50 mg Ondansetron HCl (Zofran Inj) 4 mg IVP Q6 PRN PRN Reason: Nausea/Vomiting Last Admin: 11/06/16 19:55 Dose: 4 mg Physical Exam - Constitutional Appears: Non-toxic, No Acute Distress - Head Exam Head Exam: NORMAL INSPECTION - Eye Exam Eye Exam: Normal appearance - ENT Exam ENT Exam: Mucous Membranes Moist - Respiratory Exam Respiratory Exam: NORMAL BREATHING PATTERN. absent: Accessory Muscle Use, Respiratory Distress - GI/Abdominal Exam GI & Abdominal Exam: Soft. absent: Distended - Extremities Exam Additional comments: L forearm w/ won pressure wrap. c/d/i - Neurological Exam Additional comments: sleeping - Skin Skin Exam: Dry, Normal Color, Warm Results - Vital Signs Recent Vital Signs: Last Vital Signs Temp 98.5 F 11/07/16 04:00 Pulse 93 H 11/07/16 04:00 Resp 20 11/07/16 04:00 BP 161/78 H 11/07/16 04:00 Pulse Ox 95 11/07/16 04:00 - Labs Result Diagrams: 11/06/16 15:55 11/06/16 15:55 Labs: Laboratory Results - last 24 hr 11/06/16 11/06/16 11/06/16 15:30 15:55 15:55 WBC 16.3 H RBC 3.26 L Hgb 9.4 L Hct 29.3 L MCV 89.8 MCH 28.9 MCHC 32.1 L RDW 17.1 H Plt Count 334 MPV 9.0 Neut % (Auto) 83.2 H Lymph % (Auto) 4.0 L [place] % (Auto) 10.5 H Eos % (Auto) 1.3 Baso % (Auto) 1.0 Neut # 13.6 H Lymph # 0.6 L [place] # 1.7 H Eos # 0.2 Baso # 0.2 Neutrophils % (Manual) 84 H Lymphocytes % (Manual) 4 L Monocytes % (Manual) 8 Eosinophils % (Manual) 4 Platelet Estimate Normal Sodium 138 Potassium 3.7 Chloride 92 L Carbon Dioxide 32 H Anion Gap 18 BUN 16 Creatinine 3.0 H Est GFR ( Amer) 29 Est GFR (Non-Af Amer) 24 POC Glucose (mg/dL) 107 Random Glucose 109 Calcium 9.1 Total Bilirubin 0.6 AST 21 ALT 36 Alkaline Phosphatase 131 H D Total Protein 7.3 Albumin 3.7 Globulin 3.6 Albumin/Globulin Ratio 1.0 Lipase 49 11/06/16 11/06/16 11/07/16 16:44 22:15 02:51 WBC RBC Hgb Hct MCV MCH MCHC RDW Plt Count MPV Neut % (Auto) Lymph % (Auto) [place] % (Auto) Eos % (Auto) Baso % (Auto) Neut # Lymph # [place] # Eos # Baso # Neutrophils % (Manual) Lymphocytes % (Manual) Monocytes % (Manual) Eosinophils % (Manual) Platelet Estimate Sodium Potassium Chloride Carbon Dioxide Anion Gap BUN Creatinine Est GFR ( Amer) Est GFR (Non-Af Amer) POC Glucose (mg/dL) 178 H 309 H 294 H Random Glucose Calcium Total Bilirubin AST ALT Alkaline Phosphatase Total Protein Albumin Globulin Albumin/Globulin Ratio Lipase 11/07/16 07:04 WBC RBC Hgb Hct MCV MCH MCHC RDW Plt Count MPV Neut % (Auto) Lymph % (Auto) [place] % (Auto) Eos % (Auto) Baso % (Auto) Neut # Lymph # [place] # Eos # Baso # Neutrophils % (Manual) Lymphocytes % (Manual) Monocytes % (Manual) Eosinophils % (Manual) Platelet Estimate Sodium Potassium Chloride Carbon Dioxide Anion Gap BUN Creatinine Est GFR ( Amer) Est GFR (Non-Af Amer) POC Glucose (mg/dL) 238 H Random Glucose Calcium Total Bilirubin AST ALT Alkaline Phosphatase Total Protein Albumin Globulin Albumin/Globulin Ratio Lipase Assessment & Plan - Assessment and Plan (Free Text) Assessment: 36 y/o M in HTN urgency w/ bleeding AVF - cont pressure dressing - OR if continues to bleed - strict BP control - cont medical management - further recs per Dr. Douglas Chiu DO PGY2
--- NOTE | 2016-11-07 16:48 | CP.PCM.PN ---
Subjective - Date & Time of Evaluation Date of Evaluation: 11/07/16 Time of Evaluation: 16:28 Objective - Vital Signs/Intake and Output Vital Signs (last 24 hours): Temp Pulse Resp BP Pulse Ox 98.2 F 64 20 128/61 98 11/07/16 15:28 11/07/16 15:28 11/07/16 15:28 11/07/16 15:28 11/07/16 15:28 Intake and Output: 11/07/16 11/07/16 06:59 18:59 Intake Total 760 Balance 760 - Medications Medications: Current Medications Amlodipine Besylate (Norvasc) 10 mg PO DAILY [facility] Last Admin: 11/07/16 10:21 Dose: 10 mg Aspirin (Ecotrin) 81 mg PO DAILY [facility] Last Admin: 11/07/16 10:21 Dose: 81 mg Clonidine HCl (Catapres) 0.3 mg PO TID [facility] Last Admin: 11/07/16 13:28 Dose: 0.3 mg Epoetin Oumar (Procrit) 3,000 unit SC F [facility] Famotidine (Pepcid) 20 mg IVP DAILY [facility] Last Admin: 11/07/16 10:21 Dose: 20 mg Gabapentin (Neurontin) 300 mg PO DAILY [facility] Last Admin: 11/07/16 10:21 Dose: 300 mg Hydralazine HCl (Apresoline) 100 mg PO Q8 [facility] Last Admin: 11/07/16 13:28 Dose: 100 mg Sodium Chloride (Sodium Chloride 0.45%) 1,000 mls @ 40 mls/hr IV .Q24H [facility] Last Admin: 11/06/16 19:55 Dose: 40 mls/hr Insulin Aspart (Novolog) 0 unit SC ACHS [facility] PRN Reason: Protocol Last Admin: 11/07/16 13:42 Dose: 3 unit Insulin Glargine (Lantus) 40 unit SC HS [facility] Last Admin: 11/06/16 22:10 Dose: 40 units Ketorolac Tromethamine (Toradol) 30 mg IVP Q8 PRN PRN Reason: Pain, moderate (4-7) Last Admin: 11/07/16 07:01 Dose: 30 mg Losartan Potassium (Cozaar) 50 mg PO DAILY [facility] Last Admin: 11/07/16 10:21 Dose: 50 mg Ondansetron HCl (Zofran Inj) 4 mg IVP Q6 PRN PRN Reason: Nausea/Vomiting Last Admin: 11/06/16 19:55 Dose: 4 mg Vitamin B Complex/Vit C/Folic Acid (Nephro-Yomi) 1 tab PO 0800 [facility] - Labs Labs: 11/06/16 15:55 11/06/16 15:55
[2016-11-07] MEDS: (Lantus) Insulin Glargine, Recombinant SC SCH (22:28)
[2016-11-07] MEDS: Sodium Chloride 0.45% 1,000 ML IV SCH (22:30)
[2016-11-08] MEDS: (Novolog) Insulin Aspart, Recombinant 100 u/ml 10 ml vial SC SCH ×4 (07:38→22:05)
[2016-11-08] MEDS: Multivitamin Vitamin B Complex (Nephro-Vite) Tab PO SCH (08:35)
[2016-11-08] MEDS ORDERED: Epoetin Alfa 3000 UNIT/ML Inj SC SCH (09:00)
--- NOTE | 2016-11-08 10:22 | CON ---
DATE: CHIEF COMPLAINT: Nausea and vomiting. HISTORY OF PRESENT ILLNESS: The patient is a 36-year-old male with history as mentioned notable for diabetes, gastritis, esophagitis, hypertension, active smoker and marijuana abuse, recurrent multiple episodes of nausea and vomiting and hospitalization for that. Also history of gastroparesis, came after dialysis with 4 episodes of nausea and vomiting. His nausea and vomiting resolved. He complains of pain in the upper abdomen area. He denies any shortness of breath, cough, phlegm, fever or chills. PAST MEDICAL HISTORY: Notable for anemia, CHF, diabetes, gastritis, hypertension, hyperlipidemia, ESRD on hemodialysis. PAST SURGICAL HISTORY: Include cataract surgery, orchiopexy, EGD/colonoscopy. FAMILY HISTORY: No history of CKD or on dialysis. SOCIAL HISTORY: He smokes cigarettes and marijuana. Denies any alcohol. Denies any other substance abuse. ALLERGIES: The patient does not have any medication allergies. REVIEW OF SYSTEMS: GENERAL: Otherwise, he appears is in his usual health. Denied any fever or chills. NEUROLOGIC: Denied any headache, tingling, numbness, dizziness. EYES: Denied any watery or itchy eyes. ENT: Denied any ear pain, sore throat or congestion. CARDIOVASCULAR: Denied any chest pain, palpitation. RESPIRATORY: Denied any shortness of breath, cough. GASTROINTESTINAL: Does report nausea, vomiting. Denies any change in bowel habit. GENITOURINARY: Denied any painful burning urination. EXTREMITIES: Denies leg swelling. PSYCHIATRIC: Denied any depression, does report some anxiety. LYMPHATICS: Denied any lymph node swelling. HEMATOLOGIC: Denied active bleeding. SKIN: Denied any rash, ulceration or bruising. AV access, does report bleeding after dialysis yesterday from the access. PHYSICAL EXAMINATION: GENERAL: The patient is young male not in acute distress. VITAL SIGNS: Afebrile, pulse 64, blood pressure 128/61. Blood pressure was high in 242/126 when he came in. NEUROLOGIC: A and O x3. No focal deficits. Moving all 4 extremities. Strength and sensation intact. EYES: Pupils reactive. Conjunctivae normal. No icterus or pallor. ENT: Oral cavity, normal pharynx, normal mucosa. No rash, ulceration, or thrush. NECK: Supple. No lymphadenopathy. No bruits. No thyromegaly. CARDIOVASCULAR: S1 and S2 normal. No murmur, no rub. RESPIRATORY: Bilateral vesicular sounds clear, bilateral air entry, normal, symmetrical. ABDOMEN: Soft. Epigastric tenderness is noted. There is no organomegaly. EXTREMITIES: 1+ edema noted in bilateral extremities. PSYCHIATRIC: The patient has a flat affect. Judgement is appropriate. Insight is present as well. LYMPHATICS: No lymphadenopathy in the neck. HEMATOLOGIC: which he was seen by vascular surgery and has been dressed at this time. GENITOURINARY: Kidney, bladder not palpable. WORKUP: At this time was reviewed which shows he has a white blood cell count of 16.3, hemoglobin 9.4, platelet count 334. Sodium is 130, potassium 3.7, bicarbonate is 32, BUN is 18, creatinine is 3, glucose 286, albumin is 2.7. Recent EGD shows gastroparesis, esophagitis, and duodenitis. Colonoscopy shows hemorrhoids. CURRENT MEDICATIONS: Also reviewed, which showed the patient is on low-dose IV fluids; also amlodipine 10 mg daily; aspirin; clonidine; Epogen on Tuesday, Tuesday and Tuesday; Percocet, gabapentin; hydralazine; insulin; losartan; morphine; and Zofran p.r.n. ASSESSMENT: 1. Recurrent nausea, vomiting with gastroparesis and marijuana abuse,active smoker. 2. End-stage renal disease, on hemodialysis via AV fistula. 3. Diabetic chronic kidney disease and hypertensive chronic kidney disease. 4. Anemia and hypophosphatemia secondary to hyperparathyroidism. RECOMMENDATIONS: No acute need for dialysis today. We will plan for dialysis tomorrow, then continue Epogen during dialysis. Continue multivitamin as Nephro-Yomi 1 tablet daily. Consider GI evaluation for his gastroparesis. Consider to add Reglan before meals, then the patient advised to stop smoking and abstain from marijuana. Then continue blood pressure medications. All questions were answered. Thank you for consultation. Vascular surgery bleeding. Further followup for recommendations of vascular surgery, dialysis of course will be once AV access is stable and no further bleeding. Brenton Larsen MD
--- NOTE | 2016-11-08 11:03 | CP.PCM.PN ---
Subjective - Date & Time of Evaluation Date of Evaluation: 11/08/16 Time of Evaluation: 11:00 - Subjective Subjective: 36 y/o M w/ PMHx of CHF, HTN, DM2, ESRD HD T, Th, Sa was BIBA from dialysis on w/ hypertensive urgency. Per nursing, pt had systolic of 200, was nauseous, vomiting, and c/o headache which has since resolved as the patient has been admitted. Pt was admitted because of this and bleeding AV fistula which has since stopped bleeding PMHx: CHF diastolic with preserved EF, HTN, HLD, edema, neuropathy, ESRD, DM2, GERD Meds: reviewed in chart NKDA PSHx: L AVF, colonoscopy, EDG, orchiectomy SHx: (+) tobacco, marijuana use. denies EtOH use; extremely dependent on his mother; legally blind FHx: noncontributory Objective - Vital Signs/Intake and Output Vital Signs (last 24 hours): Temp Pulse Resp BP Pulse Ox 98.2 F 79 20 154/85 H 96 11/08/16 08:30 11/08/16 08:30 11/08/16 08:30 11/08/16 08:30 11/08/16 08:30 Intake and Output: 11/08/16 11/08/16 06:59 18:59 Intake Total 100 Balance 100 - Medications Medications: Current Medications Amlodipine Besylate (Norvasc) 10 mg PO DAILY [facility] Last Admin: 11/08/16 10:22 Dose: Not Given Aspirin (Ecotrin) 81 mg PO DAILY [facility] Last Admin: 11/08/16 10:22 Dose: Not Given Clonidine HCl (Catapres) 0.3 mg PO TID [facility] Last Admin: 11/08/16 10:21 Dose: Not Given Epoetin Oumar (Procrit) 3,000 unit SC MWF [facility] Famotidine (Pepcid) 20 mg IVP DAILY [facility] Last Admin: 11/08/16 10:49 Dose: 20 mg Gabapentin (Neurontin) 300 mg PO DAILY [facility] Last Admin: 11/08/16 10:49 Dose: 300 mg Hydralazine HCl (Apresoline) 100 mg PO Q8 [facility] Last Admin: 11/08/16 06:29 Dose: 100 mg Sodium Chloride (Sodium Chloride 0.45%) 1,000 mls @ 40 mls/hr IV .Q24H [facility] Last Admin: 11/07/16 22:30 Dose: Not Given Insulin Aspart (Novolog) 0 unit SC ACHS [facility] PRN Reason: Protocol Last Admin: 11/08/16 07:38 Dose: Not Given Insulin Glargine (Lantus) 40 unit SC HS [facility] Last Admin: 11/07/16 22:28 Dose: 40 units Ketorolac Tromethamine (Toradol) 30 mg IVP Q8 PRN PRN Reason: Pain, moderate (4-7) Last Admin: 11/07/16 22:30 Dose: 30 mg Losartan Potassium (Cozaar) 50 mg PO DAILY [facility] Last Admin: 11/08/16 10:22 Dose: Not Given Ondansetron HCl (Zofran Inj) 4 mg IVP Q6 PRN PRN Reason: Nausea/Vomiting Last Admin: 11/06/16 19:55 Dose: 4 mg Vitamin B Complex/Vit C/Folic Acid (Nephro-Yomi) 1 tab PO 0800 [facility] Last Admin: 11/08/16 08:35 Dose: Not Given - Labs Labs: 11/06/16 15:55 11/06/16 15:55 - Constitutional Appears: Non-toxic - Head Exam Head Exam: ATRAUMATIC - Eye Exam Eye Exam: EOMI Pupil Exam: PERRL - ENT Exam ENT Exam: Mucous Membranes Moist - Neck Exam Neck Exam: Full ROM - Respiratory Exam Respiratory Exam: Clear to Ausculation Bilateral, NORMAL BREATHING PATTERN. absent: Rales, Rhonchi, Wheezes - Cardiovascular Exam Cardiovascular Exam: REGULAR RHYTHM, +S1, +S2 - GI/Abdominal Exam GI & Abdominal Exam: Soft, Normal Bowel Sounds - Rectal Exam Rectal Exam: Deferred - Extremities Exam Extremities Exam: Full ROM. absent: Calf Tenderness - Back Exam Back Exam: absent: CVA tenderness (L), CVA tenderness (R) - Neurological Exam Neurological Exam: Alert, Awake, Oriented x3 - Psychiatric Exam Psychiatric exam: Normal Affect - Skin Skin Exam: Warm Assessment and Plan - Assessment and Plan (Free Text) Assessment: Hypertensive Urgency; resolved -patient states that he has "run out of his medicines" at home as they are "too expensive"; tried explaining he needs to take care of his medical care a little bit more and that [employer] and [employer] offer much cheaper options for a lot of his medicines. Patient verbalized understanding -patient is currently on Amlodipine, Clonidine, Hydralazine, and Losartan for HTN. -blood pressure is controlled as well as symptoms -will continue to monitor; c/w pressure dressing and NPO for now ESRD T Sat -will continue with regular hemodialysis -c/w monitoring -patient still makes small amounts of urine -fistula is no longer bleeding CHF Diastolic preserved EF -last echo done in 2015 showed preserved EF with mild hypertrophic changes Proph Pepcid HepSC; hold if the patient begins to bleed at AV fistula NPO for now; AV fistula has not been bleeding but need to monitor in case surgery needs to bring him in for [address] Bandar Story PGY2 Medicine note for Dr. Chadwick
[2016-11-08 11:57] LABS: POTASSIUM 4.8 mmol/L (3.6-5.2)
[2016-11-08 12:00] LABS: CALCIUM 7.6 mg/dl (8.6-10.4)
[2016-11-08] MEDS ORDERED: Iohexol 240 200 ML IJ ONE (12:27)
[2016-11-08] MEDS ORDERED: HEPARIN-NS 5,000 UNITS/500 ML 5,000 UNIT/500 ML BAG IV ONE (12:27)
[2016-11-08] MEDS ORDERED: Lidocaine 1% Inj (20ml) ONE (12:50)
[2016-11-08] MEDS ORDERED: Midazolam 2 MG/2 ML VIAL ONE ×2 (12:58→13:42)
[2016-11-08] MEDS ORDERED: Lactated Ringer's 1,000 ML IV ONE (12:59)
[2016-11-08] MEDS ORDERED: Sodium Chloride 0.9% 1,000 ML IV ONE (12:59)
[2016-11-08] MEDS ORDERED: Propofol 10 mg/ml Inj (20 ML) ONE (12:59)
[2016-11-08] MEDS ORDERED: ceFAZolin IV 1 gm in Dextrose 1 GM/50 ML BAG IVPB ONE (13:14)
--- NOTE | 2016-11-08 14:07 | PCM.SURG1 ---
Surgeon's Initial Post Op Note - Surgeon's Notes Surgeon: Dr. Maxi Cole Manager Environmental Services: Dr. Jeny Stovall Type of Anesthesia: IV Sedation, Local Pre-Operative Diagnosis: AV fistula stenosis L arm Operative Findings: AV fistula stenosis of the L arm. Post-Operative Diagnosis: AV fistulat stenosis of the L arm. Operation Performed: AV fistulogram and balloon angioplasty. Specimen/Specimens Removed: None. Estimated Blood Loss: EBL {In ML}: 10 Blood Products Given: N/A Drains Used: No Drains Post-Op Condition: Good Date of Surgery/Procedure: 11/08/16 Time of Surgery/Procedure: 14:07
--- NOTE | 2016-11-08 14:28 | RAD ---
PROCEDURE: Intraoperative Fluoroscopy. HISTORY: RT ARM AV FISTULA DEFECT FINDINGS: Fluoroscopic assistance was provided for venogram with balloon dilatation. Please refer to the operative report from Dr. Maxi Cole.
[2016-11-08] MEDS ORDERED: Epoetin Alfa Dialysis 3000 UNIT/ML Inj SC SCH (17:45)
[2016-11-08] MEDS ORDERED: Epoetin Alfa Dialysis 3000 UNIT/ML Inj IV SCH (18:15)
--- NOTE | 2016-11-08 21:57 | CARD ---
APPROVED REPORT EKG Measurement Heart [id number] <Conclusion> Normal sinus rhythm Possible Left atrial enlargement Nonspecific T wave abnormality Prolonged QT Abnormal ECG
[2016-11-08] MEDS: (Lantus) Insulin Glargine, Recombinant SC SCH (22:01)
--- NOTE | 2016-11-08 22:46 | HP ---
HISTORY OF PRESENT ILLNESS: Mr. Haynes is a 36-year-old with history of chronic renal failure, diabetes mellitus, history of marijuana abuse blindness. The patient came to the ER, advised admission. PHYSICAL EXAMINATION: GENERAL: The patient is awake, alert, and oriented. VITAL SIGNS: Temperature 98 and pulse 90. HEENT: Within normal limits. NECK: Supple. CHEST: Symmetrical. HEART: Regular. ABDOMEN: Soft. EXTREMITIES: No edema. IMPRESSION: The patient is suffering from intractable cyclical vomiting probably secondary to marijuana abuse. The patient needs supportive care, IV fluid . Lucero Chadwick MD
--- NOTE | 2016-11-09 02:07 | OP ---
PROCEDURE DATE: 11/08/2016 PREOPERATIVE DIAGNOSIS: Bleeding after use of arteriovenous fistula. POSTOPERATIVE DIAGNOSIS: Bleeding after use of arteriovenous fistula and stenosis of arteriovenous fistula. SURGEON: Dr. Cole. CONCRETE STONE FABRICATOR: Dr. Santiago. ANESTHESIOLOGIST: Mr. Yusuf Herman. TYPE OF ANESTHESIA: Local sedation. INDICATIONS: The patient is a young man who had basilic vein transposition recently after use, he has had excessive bleeding. OPERATIVE FINDINGS: arterial anastomosis was intact. Without any evidence of significant stenosis. However, at the bend where it dipped back, back down after it was elevated, there was a stenosis of at least 60%. This was dilated with both 6 and 8 mm balloon with a cosmetic improvement. More importantly, after removing the 6-Croatian sheath, there was no bleeding whatsoever from this site despite of brisk bruit and thrill. DESCRIPTION OF PROCEDURE: The patient was given local anesthesia and the fistula was punctured toward the arterial anastomosis. Films were taken initially showing the central veins, which did not show any evidence of significant stenosis and the peripheral arterial anastomosis, which again was without stenosis; however, as we alyson back the catheter at the dip where we were turned into the basilic vein towards the axilla, there was a stenosis of at least 60%. This was dilated with a 6 and 8 mm balloon with satisfactory cosmetic results. Pressure was then applied to the puncture site and the procedure was terminated. Blood loss of procedure was 25 mL. Operation carried out, 10-25 mL. Operation carried out was fistulogram, left arm and balloon angioplasty with 6 and 8 mm balloon. Maxi Cole Jr., MD
[2016-11-09] MEDS: (Novolog) Insulin Aspart, Recombinant 100 u/ml 10 ml vial SC SCH ×2 (07:43→12:58)
[2016-11-09] MEDS: Multivitamin Vitamin B Complex (Nephro-Vite) Tab PO SCH (07:49)
--- NOTE | 2016-11-09 08:55 | PN ---
DATE: 11/08/2016 CHIEF COMPLAINT: Abdomen pain. HISTORY OF PRESENT ILLNESS AND REVIEW OF SYSTEMS: Noted overnight event. The patient nausea and vomiting has resolved. He reports pain in the abdomen area. He also reports pain in his legs. Denies any shortness of breath, denies any chest pain, palpitation. He does report some leg swelling. His bleeding from the AV access has stopped. The patient is scheduled to go to OR for angiogram today. PHYSICAL EXAMINATION: GENERAL: The patient appeared comfortable, not in acute distress. VITAL SIGNS: Stable. Afebrile, pulse is 76, blood pressure 144/79. LUNGS: Bilateral vesicular breath sounds. Bilateral clear air entry, normal and symmetrical. ABDOMEN: Soft, mild epigastric tenderness was noted. Otherwise, no organomegaly. CARDIOVASCULAR: S1, S2 normal. No murmur, rub or gallop. EXTREMITIES: 1+ pitting edema bilateral extremities. AV access on the left side good thrill and bruit. No obvious bleeding at this time. PSYCHIATRIC: The patient is cooperative, has flat affect. No hallucinations. LABORATORY DATA: Shows white blood cell count is 16.3, hemoglobin 9.4, and platelet count 334. Sodium is 136, potassium 4.8, creatinine 6.6, and calcium is 7.6, last glucose is 194. CURRENT MEDICATIONS: Reviewed. ASSESSMENT: 1. Recurrent nausea and vomiting with the marijuana abuse, also possible history of gastroparesis. 2. End-stage renal disease, on hemodialysis via arteriovenous fistula. 3. Diabetic chronic kidney disease and hypertensive chronic kidney disease. 4. Anemia, hyperphosphatemia. 5. Hyperparathyroidism which is due to chronic kidney disease. 6. Active smoker. 7. Bleeding from arteriovenous fistula, rule-out stenosis. RECOMMENDATIONS: The patient planned for dialysis today. Discussed with the vascular surgery. The patient is under planning for angiogram and need for further intervention. We will plan for dialysis thereafter. The patient again recommended to abstain from marijuana, also to stop smoking. The patient is on medications with Pepcid at this time. Continue the antihypertensives. Discontinue IV fluid. Continue the Epogen with dialysis. Continue the multivitamin. All questions were answered. The patient already on dose on ARB. Please call if any questions. Brenton Suzie, MD
[2016-11-09 09:02] VITALS: RESP 20
--- NOTE | 2016-11-09 10:44 | CP.PCM.PN ---
Subjective - Date & Time of Evaluation Date of Evaluation: 11/09/16 Time of Evaluation: 07:00 - Subjective Subjective: Vascular Surgery Dr. Cole Pt S&E @bedside. Fistulagram performed yesterday Pt tolerated the procedure well w/ no complications. NAEO. Pt has no complaints this AM. denies pain, N/V. tolerating diet. Objective - Vital Signs/Intake and Output Vital Signs (last 24 hours): Temp Pulse Resp BP Pulse Ox 98.4 F 85 20 148/72 97 11/09/16 07:40 11/09/16 07:40 11/09/16 07:40 11/09/16 07:40 11/09/16 07:40 - Medications Medications: Current Medications Amlodipine Besylate (Norvasc) 10 mg PO DAILY [facility] Last Admin: 11/09/16 09:24 Dose: 10 mg Aspirin (Ecotrin) 81 mg PO DAILY [facility] Last Admin: 11/09/16 09:24 Dose: 81 mg Clonidine HCl (Catapres) 0.3 mg PO TID [facility] Last Admin: 11/09/16 09:24 Dose: 0.3 mg Epoetin Oumar (Procrit) 3,000 unit IV MWF [facility] Last Admin: 11/08/16 18:15 Dose: 3,000 unit Famotidine (Pepcid) 20 mg IVP DAILY [facility] Last Admin: 11/09/16 09:24 Dose: 20 mg Gabapentin (Neurontin) 300 mg PO DAILY [facility] Last Admin: 11/09/16 09:24 Dose: 300 mg Heparin Sodium (Porcine) (Heparin) 5,000 units SC Q8 [facility] Last Admin: 11/09/16 05:19 Dose: 5,000 units Hydralazine HCl (Apresoline) 100 mg PO Q8 [facility] Last Admin: 11/09/16 05:19 Dose: 100 mg Insulin Aspart (Novolog) 0 unit SC ACHS [facility] PRN Reason: Protocol Last Admin: 11/09/16 07:43 Dose: Not Given Insulin Glargine (Lantus) 40 unit SC HS [facility] Last Admin: 11/08/16 22:01 Dose: 40 units Losartan Potassium (Cozaar) 50 mg PO DAILY [facility] Last Admin: 11/09/16 09:24 Dose: 50 mg Ondansetron HCl (Zofran Inj) 4 mg IVP Q6 PRN PRN Reason: Nausea/Vomiting Last Admin: 11/09/16 01:12 Dose: 4 mg Vitamin B Complex/Vit C/Folic Acid (Nephro-Yomi) 1 tab PO 0800 [facility] Last Admin: 11/09/16 07:49 Dose: 1 tab - Labs Labs: 11/06/16 15:55 11/08/16 11:40 - Constitutional Appears: Non-toxic, No Acute Distress - Head Exam Head Exam: NORMAL INSPECTION - Eye Exam Eye Exam: Normal appearance - ENT Exam ENT Exam: Mucous Membranes Moist - Respiratory Exam Respiratory Exam: NORMAL BREATHING PATTERN. absent: Accessory Muscle Use, Respiratory Distress - GI/Abdominal Exam GI & Abdominal Exam: Soft. absent: Distended - Extremities Exam Additional comments: Palpable thrill L AVF dressing C/D/I - Neurological Exam Neurological Exam: Alert, Awake, Oriented x3 - Psychiatric Exam Psychiatric exam: Normal Affect, Normal Mood - Skin Skin Exam: Dry, Normal Color, Warm Assessment and Plan - Assessment and Plan (Free Text) Assessment: 36 y/o M w/ bleeding AVF - Fistula cleared for dialysis Tx - cont medical management - no further surgical intervention at this time Pt discussed w/ Dr. Douglas Chiu DO PGY2
--- NOTE | 2016-11-09 11:14 | CP.PCM.PN ---
Subjective - Date & Time of Evaluation Date of Evaluation: 11/09/16 Time of Evaluation: 10:00 - Subjective Subjective: Dr. Chadwick progress note: Patient is seen in room. He is not complaining of an any nausea and vomiting. He says he thinks he is suppose to have an extra dialysis session as an outpatient but is not sure if he will be able to make it. Objective - Vital Signs/Intake and Output Vital Signs (last 24 hours): Temp Pulse Resp BP Pulse Ox 98.4 F 85 20 148/72 97 11/09/16 07:40 11/09/16 07:40 11/09/16 07:40 11/09/16 07:40 11/09/16 07:40 - Medications Medications: Current Medications Amlodipine Besylate (Norvasc) 10 mg PO DAILY [facility] Last Admin: 11/09/16 09:24 Dose: 10 mg Aspirin (Ecotrin) 81 mg PO DAILY [facility] Last Admin: 11/09/16 09:24 Dose: 81 mg Clonidine HCl (Catapres) 0.3 mg PO TID [facility] Last Admin: 11/09/16 09:24 Dose: 0.3 mg Epoetin Oumar (Procrit) 3,000 unit IV MWF [facility] Last Admin: 11/08/16 18:15 Dose: 3,000 unit Famotidine (Pepcid) 20 mg IVP DAILY [facility] Last Admin: 11/09/16 09:24 Dose: 20 mg Gabapentin (Neurontin) 300 mg PO DAILY [facility] Last Admin: 11/09/16 09:24 Dose: 300 mg Heparin Sodium (Porcine) (Heparin) 5,000 units SC Q8 [facility] Last Admin: 11/09/16 05:19 Dose: 5,000 units Hydralazine HCl (Apresoline) 100 mg PO Q8 [facility] Last Admin: 11/09/16 05:19 Dose: 100 mg Insulin Aspart (Novolog) 0 unit SC ACHS [facility] PRN Reason: Protocol Last Admin: 11/09/16 07:43 Dose: Not Given Insulin Glargine (Lantus) 40 unit SC HS [facility] Last Admin: 11/08/16 22:01 Dose: 40 units Losartan Potassium (Cozaar) 50 mg PO DAILY [facility] Last Admin: 11/09/16 09:24 Dose: 50 mg Ondansetron HCl (Zofran Inj) 4 mg IVP Q6 PRN PRN Reason: Nausea/Vomiting Last Admin: 11/09/16 01:12 Dose: 4 mg Vitamin B Complex/Vit C/Folic Acid (Nephro-Yomi) 1 tab PO 0800 [facility] Last Admin: 11/09/16 07:49 Dose: 1 tab - Labs Labs: 11/06/16 15:55 11/08/16 11:40 - Constitutional Appears: Non-toxic, No Acute Distress - Respiratory Exam Respiratory Exam: Clear to Ausculation Bilateral. absent: Rhonchi, Wheezes - Cardiovascular Exam Cardiovascular Exam: REGULAR RHYTHM, RRR, +S1, +S2. absent: Gallop, Rubs - GI/Abdominal Exam GI & Abdominal Exam: Soft, Normal Bowel Sounds. absent: Tenderness - Extremities Exam Extremities Exam: Normal Inspection. absent: Pedal Edema - Back Exam Back Exam: NORMAL INSPECTION - Psychiatric Exam Psychiatric exam: Normal Affect, Normal Mood Assessment and Plan - Assessment and Plan (Free Text) Assessment: Hypertensive Urgency; 11/09: Resolved resolved -patient states that he has "run out of his medicines" at home as they are "too expensive"; tried explaining he needs to take care of his medical care a little bit more and that [employer] and [employer] offer much cheaper options for a lot of his medicines. Patient verbalized understanding -patient is currently on Amlodipine, Clonidine, Hydralazine, and Losartan for HTN. -blood pressure is controlled as well as symptoms -will continue to monitor; c/w pressure dressing and NPO for now ESRD T Th Sat 11/09: Patient has dialysis acess, discharged patient home to continue outpatient dialysis schedule. will continue with regular hemodialysis -c/w monitoring -patient still makes small amounts of urine -fistula is no longer bleeding CHF Diastolic preserved EF -last echo done in 2015 showed preserved EF with mild hypertrophic changes Proph Pepcid HepSC; hold if the patient begins to bleed at AV fistula NPO for now; AV fistula has not been bleeding but need to monitor in case surgery needs to bring him in for [address] Bandar Story PGY2 Medicine note for Dr. Chadwick
[2016-11-09 16:22] VITALS: BP 121/69; TEMP 98; O2SAT 98
[2016-11-09 17:03] VITALS: PULSE 68
--- NOTE | 2016-11-10 09:19 | PN ---
DATE: 11/09/2016 FOLLOWUP NEPHROLOGY NOTE CHIEF COMPLAINT: Abdomen pain. HISTORY OF PRESENT ILLNESS AND REVIEW OF SYSTEMS: The patient denies any new complaints. Still reports pain in the upper abdomen area with some nausea and denies any vomiting at this time. There is no chest pain, palpitation or shortness of breath. PHYSICAL EXAMINATION: GENERAL: The patient was sleeping in his room, although arousable easily. VITAL SIGNS: Afebrile. Pulse is 85, blood pressure 161/85, prior to it 148/72, saturation well maintained. LUNGS: Bilateral vesicular breath sounds clear. Bilateral normal air entry and symmetrical. No added sound. CARDIOVASCULAR: S1 and S2 normal. No murmur, rub or gallop appreciated. EXTREMITIES: 1+ edema in the bilateral lower extremities. ABDOMEN: Soft, epigastric tenderness is noted. Otherwise, no organomegaly. No guarding, rigidity, or rebound. NEUROLOGIC: The patient is alert, oriented x3. Moving all 4 extremities. Strength and sensation intact. AV fistula of the left side. WORKUP: No new labs at this time. His was 283. ASSESSMENT: 1. 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 2. End-stage renal disease, on hemodialysis via arteriovenous fistula. 3. Arteriovenous fistula stenosis, status post angioplasty by vascular surgery. 4. History of diabetic chronic kidney disease and hypertensive chronic kidney disease, anemia, and hyperphosphatemia, secondary hyperparathyroidism due to chronic kidney disease. 6. Active smoker. RECOMMENDATIONS: 1. No acute need for dialysis today. We will plan for routine dialysis tomorrow. Appreciate vascular input. 2. Continue blood pressure medications. 3. Continue the Epogen during dialysis. 4. He is already on ARB, also on multivitamin. 5. Discussed the plan with team. All questions were answered. Brenton Larsen MD
--- NOTE | 2016-11-15 09:21 | DS ---
HISTORY OF PRESENT ILLNESS: Mr. Haynes admitted to the hospital with a chief complaint of nausea, vomiting and abdominal pain. The patient is bedrest, supportive care. IV hydration, improved, discharged to follow up as an outpatient. Lucero Chadwick MD
== END 2016-11-09 18:27 | disposition home or self-care (01) | DRG 252 ==
LOC: C.ER 15:07 → C.9E 19:24 → C.6T 20:02
PROVIDERS: ADMIT Internal Medicine Pulmonary Disease; ATTEND Internal Medicine Pulmonary Disease
PROC: 5A1D00Z (ICD-10-PCS; 2016-11-08)
PROC: 057C3ZZ Dilation of Left Basilic Vein, Percutaneous Approach (ICD-10-PCS; principal; 2016-11-08 12:59)
DX: I16.0 Hypertensive urgency (principal); N18.6 End stage renal disease; I50.32 Chronic diastolic (congestive) heart failure; N25.81 Secondary hyperparathyroidism of renal origin; T82.858A Stenosis of other vascular prosthetic devices, implants and grafts, initial encounter; K31.84 Gastroparesis; I13.2 Hypertensive heart and chronic kidney disease with heart failure and with stage 5 chronic kidney disease, or end stage renal disease; E11.22 Type 2 diabetes mellitus with diabetic chronic kidney disease; E83.39 Other disorders of phosphorus metabolism; K21.9 Gastro-esophageal reflux disease without esophagitis; E78.5 Hyperlipidemia, unspecified; Z99.2 Dependence on renal dialysis; F17.210 Nicotine dependence, cigarettes, uncomplicated; F12.10 Cannabis abuse, uncomplicated; K29.70 Gastritis, unspecified, without bleeding; K20.9 Esophagitis, unspecified; D64.9 Anemia, unspecified; Y83.2 Surgical operation with anastomosis, bypass or graft as the cause of abnormal reaction of the patient, or of later complication, without mention of misadventure at the time of the procedure; Z79.4 Long term (current) use of insulin

== ENCOUNTER 2016-11-12 10:24 | Inpatient (IN) | payer MEDICARE ==
[2016-11-12 10:24] VITALS: BMI 27.0
--- NOTE | 2016-11-12 12:08 | RAD ---
PROCEDURE: CHEST RADIOGRAPH, 1 VIEW HISTORY: NAUSEA/VOMITING COMPARISON: Comparison made with prior study 11/06/2016 FINDINGS: LUNGS: Mildy PLEURA: No pneumothorax or pleural fluid seen. CARDIOVASCULAR: Normal. OSSEOUS STRUCTURES: No significant abnormalities. VISUALIZED UPPER ABDOMEN: Normal. OTHER FINDINGS: None. IMPRESSION: No active disease.
[2016-11-12 12:16] LABS: ALB/GLOB RATIO 1.1 (1.0-2.1); BILIRUBIN,TOTAL 0.8 mg/dL (0.2-1.3); CALCIUM 9.8 mg/dl (8.6-10.4); TOTAL PROTEIN 8.1 g/dL (6.3-8.3)
[2016-11-12 12:17] LABS: BASO # 0.2 K/uL (0.0-0.2); BASO % 1.1 % (0.0-2.0); EOS # 0.2 K/uL (0.0-0.7); EOS % 1.2 % (0.0-4.0); HEMATOCRIT 35.4 % (35.0-51.0); LYMPH # 1.1 K/uL (1.0-4.3); LYMPH % 7.6 % (20.0-40.0); MEAN CORPUSCULAR HEMOGLOBIN 29.4 pg (27.0-31.0); MEAN CORPUSCULAR HGB CONC 31.7 g/dL (33.0-37.0); MEAN PLATELET VOLUME 9.3 fL (7.2-11.7); MONO # 0.6 K/uL (0.0-0.8); MONO % 4.3 % (0.0-10.0); NRBC % 0.2 % (0.0-2.0); PLATELET COUNT 355 K/uL (130-400); RED CELL DISTRIBUTION WIDTH 18.9 % (11.5-14.5); WHITE BLOOD COUNT 14.2 K/uL (4.8-10.8)
[2016-11-12 12:18] LABS: MEAN CELL VOLUME 92.5 fL (80.0-94.0)
[2016-11-12 12:20] LABS: POTASSIUM 5.2 mmol/L (3.6-5.2)
[2016-11-12] MEDS ORDERED: Morphine 4 MG/ML VIAL ONE (12:20)
[2016-11-12] MEDS ORDERED: (Novolin R) Insulin Human Regular 100 units/ml vial IV ONE (12:36)
[2016-11-12 12:39] LABS: BASOPHIL 1 % (0-2); EOSINOPHIL 1 % (0-4); NEUTROPHIL 85 % (50-75); TOTAL CELLS COUNTED 100
[2016-11-12] MEDS ORDERED: (Novolin R) Insulin Human Regular 100 units/ml vial ONE (12:56)
[2016-11-12] MEDS ORDERED: Enalaprilat 2.5 MG/2 ML IV ONE (13:12)
--- NOTE | 2016-11-12 13:20 | CP.PCM.PN ---
Subjective - Date & Time of Evaluation Date of Evaluation: 11/12/16 Time of Evaluation: 13:34 - Subjective Subjective: Pt is well known to Dr. Chadwick; is frequently in and out of the hospital 2/2 to not taking his medications as prescribed; patient states that he has been vomiting less than 10 times since this morning with concurrent diarrhea that has been chronic for the last month. No blood in either vomitus or stool, denies fevers/chills, GARRIDO, CP, SOB, abdominal pain, dysuria/freq/urg, or lower extremity pain edema. The patient is chronically disabled and is unable to take care of himself. Denies any drug use except for daily marijuana; when explained that marijuana has been directly linked to increased hypertension and from hypertensive crises as this patient is frequently admitted for the patient did not want to stop smoking even given risks. Objective - Vital Signs/Intake and Output Vital Signs (last 24 hours): Temp Pulse Resp BP Pulse Ox 97.8 F 109 H 12 211/94 H 99 11/12/16 12:57 11/12/16 12:57 11/12/16 12:57 11/12/16 12:57 11/12/16 12:57 - Medications Medications: Current Medications Amlodipine Besylate (Norvasc) 10 mg PO DAILY [facility] Aspirin (Ecotrin) 81 mg PO DAILY [facility] Clonidine HCl (Catapres) 0.3 mg PO TID [facility] Clonidine HCl (Catapres-Tts2 0.2 Mg/24 Hr) 1 patch TD ONCE ONE Stop: 11/19/16 02:01 Enalaprilat (Vasotec) 2.5 mg IV ONCE ONE Stop: 11/12/16 13:13 Epoetin Oumar (Procrit) 3,000 unit SC MWF [facility] Gabapentin (Neurontin) 300 mg PO DAILY [facility] Hydralazine HCl (Apresoline) 100 mg PO Q8 [facility] Hydralazine HCl (Apresoline) 10 mg IVP Q6H PRN PRN Reason: HTN Insulin Aspart (Novolog) 14 unit SC AC [facility] Insulin Aspart (Novolog Mix 70/30 (70/30 Units/Ml)) 0 units SC ACHS [facility] PRN Reason: Protocol Insulin Glargine (Lantus) 40 unit SC HS [facility] Losartan Potassium (Cozaar) 50 mg PO DAILY [facility] Ondansetron HCl (Zofran Inj) 4 mg IVP Q4H PRN PRN Reason: Nausea/Vomiting - Labs Labs: 11/12/16 12:01 11/12/16 12:01 - Constitutional Appears: Unkempt, Older Than Stated Age, Chronically Ill - Head Exam Head Exam: ATRAUMATIC - Eye Exam Eye Exam: EOMI Pupil Exam: PERRL - ENT Exam ENT Exam: Mucous Membranes Dry - Neck Exam Neck Exam: Full ROM - Respiratory Exam Respiratory Exam: Clear to Ausculation Bilateral, NORMAL BREATHING PATTERN. absent: Rales, Rhonchi, Wheezes - Cardiovascular Exam Cardiovascular Exam: Tachycardia - GI/Abdominal Exam GI & Abdominal Exam: Soft, Normal Bowel Sounds. absent: Tenderness - Rectal Exam Rectal Exam: Deferred - Extremities Exam Extremities Exam: Pedal Edema. absent: Calf Tenderness, Full ROM, Normal Capillary Refill, Tenderness - Back Exam Back Exam: absent: CVA tenderness (L), CVA tenderness (R) - Neurological Exam Neurological Exam: Awake, Oriented x3 - Psychiatric Exam Psychiatric exam: Normal Affect - Skin Skin Exam: Warm Assessment and Plan - Assessment and Plan (Free Text) Assessment: Hypertensive Urgency r/o emergency -patient was unable to take meds 2/2 to vomiting -f/u lactate for end organ damage -given TD 0.2 Clonidine in ER, Enalaprit, and 10mg hydralazine in ER -PRN Hydralazine for SBP over 180/95 -patient is currently on Amlodipine, Clonidine, Hydralazine, and Losartan for HTN at home; will start regular home meds tomorrow Hyperglycemia r/o DKA; patient has long standing uncontrolled diabetes -last A1C on last admission last week 10.6 -glucose 306, anion gap elevated -f/u serum ketones to r/o DKA -RISS and accuchecks as well as home insulin dosing schedule; patient was not taking insulin as prescribed at home -diarrhea/nausea and vomiting could all be explained with DKA Diarrhea; chronic -f/u C. Diff, f/u blood cultures, leukocytosis is improved from discharge previously -elevated WBC, no fevers, patient states he has had chronic diarrhea however ESRD patients are at increased risk for C.Diff Intractable Vomiting -Zofran PRN Q6H 4mg Anemia; chronic and improved -current hemoglobin 11.6 compared to 9.3 on last discharge -will monitor ESRD T Th Sat -Renal Consult; Dr. 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 Bandar Story PGY2 Medicine note for Dr. Chadwick
--- NOTE | 2016-11-12 13:32 | C.PDOC ---
History Of Present Illness Patient presents to ED c/o abdominal pain, nausea and vomiting since this morning. He has h/o gastritis, HTN, DM, ESRd on HD, last dialysis was tuesday (due today). Patient denies chest pain, SOB, cough, fever. Time Seen by Provider: 11/12/16 10:59 Chief Complaint (Nursing): GI Problem History Per: Patient History/Exam Limitations: no limitations Onset/Duration Of Symptoms: Hrs Current Symptoms Are (Timing): Still Present Severity: Moderate Location Of Pain/Discomfort: Diffuse Quality Of Discomfort: "Pain" Associated Symptoms: Nausea, Vomiting. denies: Fever, Chills Past Medical History Reviewed: Historical Data, Nursing Documentation, Vital Signs Vital Signs: Last Vital Signs Temp 98.1 F 11/15/16 15:50 Pulse 90 11/15/16 15:50 Resp 18 11/15/16 15:50 BP 167/83 H 11/15/16 15:50 Pulse Ox 98 11/15/16 15:50 - Medical History PMH: Anemia, CHF, Diabetes (type I), Gastritis, HTN, Hypercholesterolemia, Peripheral Edema, End Stage Renal Disease, Chronic Kidney Disease - [facility] Procedures BYPASS LEFT BRACHIAL ARTERY TO UPPER ARM VEIN, OPEN APPROACH (02/17/16) DILATION OF LEFT BASILIC VEIN, PERCUTANEOUS APPROACH (11/06/16) EXCISION OF ASCENDING COLON, ENDO, DIAGN (12/19/15) EXCISION OF DESCENDING COLON, ENDO, DIAGN (10/22/16) EXCISION OF DUODENUM, ENDO, DIAGN (03/25/16) EXCISION OF LARGE INTESTINE, ENDO, DIAGN (05/06/16) EXCISION OF MIDDLE ESOPHAGUS, ENDO, DIAGN (03/25/16) EXCISION OF STOMACH, ENDO, DIAGN (10/22/16) EXCISION OF TRANSVERSE COLON, ENDO, DIAGN (05/06/16) INSERTION OF INFUSION DEV INTO SUP VENA CAVA, PERC APPROACH (12/19/15) PERFORMANCE OF URINARY FILTRATION, MULTIPLE (10/28/16) PERFORMANCE OF URINARY FILTRATION, SINGLE (11/06/16) REPOSITION LEFT BASILIC VEIN, OPEN APPROACH (05/25/16) ULTRASONOGRAPHY OF SUPERIOR VENA CAVA, GUIDANCE (12/19/15) Family History: States: No Known Family Hx - Social History Hx Tobacco Use: Yes (some days) Hx Alcohol Use: No Hx Substance Use: Yes (marijuana 1 per day) - Immunization History Hx Tetanus Toxoid Vaccination: Yes Hx Influenza Vaccination: Yes Hx Pneumococcal Vaccination: Yes Review Of Systems Except As Marked, All Systems Reviewed And Found Negative. Constitutional: Negative for: Fever, Chills Cardiovascular: Negative for: Chest Pain, Palpitations Respiratory: Negative for: Cough, Shortness of Breath Gastrointestinal: Positive for: Nausea, Vomiting, Abdominal Pain. Negative for : Diarrhea Physical Exam - Physical Exam Appears: Non-toxic, In Acute Distress (in moderate pain, vomiting ) Skin: Warm, Dry Oral Mucosa: Moist Cardiovascular: Rhythm Regular (tachycardic ) Respiratory: Normal Breath Sounds, No Rales, No Rhonchi, No Wheezing Gastrointestinal/Abdominal: Bowel Sounds, Soft, Tenderness (diffuse TTP, (-) McBurney's, (-) Burrell's), No Distention, No Guarding, No Rebound Back: Normal Inspection Extremity: Bilateral: Atraumatic, Normal Color And Temperature, Normal ROM Neurological/Psych: Oriented x3 ED Course And Treatment - Laboratory Results Result Diagrams: 11/15/16 07:54 11/15/16 07:54 O2 Sat by Pulse Oximetry: 99 (RA) Pulse Ox Interpretation: Normal - Radiology CXR: Interpreted by Me, Viewed By Me CXR Interpretation: Yes: No Acute Disease. No: Infiltrates Progress Note: Blood work, CXR, EKG ordered and reviewed. Patient given IV zofran, IV morphine, IV pepcid, IV insulin and IV hydralazine. Neprology consult entered as patient needs hemodialysis today. Prior records reviewed - patient has multiple prior visits for persistent abdominal pain, nausea/ vomiting. Patient states he does not know why - ? gastroparesis. - Physician Consult Information Physician Contacted: Lucero Hughes Outcome Of Conversation: Discussed patient with Dr. Hughes, agrees with admission for abdominal pain, intractable vomiting, uncontrolled BP, ESRD on HD. Disposition - Disposition Disposition: HOSPITALIZED Disposition Time: 12:31 Condition: STABLE - Clinical Impression Clinical Impression: ESRD needing dialysis, Uncontrolled hypertension, Intractable nausea and vomiting, Intractable abdominal pain Decision To Admit - Pt Status Changed To: Hospital Disposition Of: Inpatient - Admit Certification Admit to Inpatient:: After my assessment, the patient will require hospitalization for at least two midnights. This is because of the severity of symptoms shown, intensity of services needed, and/or the medical risk in this patient being treated as an outpatient. - InPatient: Physician Admission Certification:: SEE NOTES - . Bed Request Type: Telemetry Admitting Physician: Lucero Hughes Patient Diagnosis: Uncontrolled hypertension, ESRD needing dialysis, Intractable abdominal pain, Intractable nausea and vomiting
[2016-11-12 14:40] LABS: VENOUS BLOOD GAS BASE EXCESS 5.3 mmol/L (0.0-2.0); VENOUS BLOOD GAS PCO2 46 mmHg (40-60); VENOUS BLOOD PH 7.43 (7.32-7.43)
[2016-11-12] MEDS: (Novolog) Insulin Aspart, Recombinant 100 u/ml 10 ml vial SC SCH ×3 (16:30→22:09)
[2016-11-12] MEDS ORDERED: (Novolog Mix 70/30) Insulin Aspart/Insulin Aspar 100 units/ml SC SCH (16:30)
[2016-11-12] MEDS ORDERED: Epoetin Alfa Dialysis 3000 UNIT/ML Inj SC SCH (20:00)
[2016-11-12] MEDS: (Lantus) Insulin Glargine, Recombinant SC SCH (22:08)
[2016-11-13 08:39] LABS: BASO # 0.1 K/uL (0.0-0.2); BASO % 1.1 % (0.0-2.0); EOS # 0.3 K/uL (0.0-0.7); EOS % 3.4 % (0.0-4.0); HEMATOCRIT 32.7 % (35.0-51.0); LYMPH # 1.2 K/uL (1.0-4.3); LYMPH % 14.8 % (20.0-40.0); MEAN CELL VOLUME 92.5 fL (80.0-94.0); MEAN CORPUSCULAR HEMOGLOBIN 29.8 pg (27.0-31.0); MEAN CORPUSCULAR HGB CONC 32.3 g/dL (33.0-37.0); MEAN PLATELET VOLUME 9.2 fL (7.2-11.7); MONO % 11.5 % (0.0-10.0); NRBC % 0.4 % (0.0-2.0); RED CELL DISTRIBUTION WIDTH 19.9 % (11.5-14.5); WHITE BLOOD COUNT 8.4 K/uL (4.8-10.8)
[2016-11-13 08:50] LABS: BILIRUBIN,TOTAL 0.6 mg/dL (0.2-1.3); CALCIUM 8.1 mg/dl (8.6-10.4); TOTAL PROTEIN 6.4 g/dL (6.3-8.3)
[2016-11-13] MEDS: (Novolog) Insulin Aspart, Recombinant 100 u/ml 10 ml vial SC SCH ×7 (09:07→22:57)
[2016-11-13] MEDS: Multivitamin Vitamin B Complex (Nephro-Vite) Tab PO SCH (09:07)
[2016-11-13] MEDS: Enoxaparin 30 mg Syringe SC SCH (12:27)
--- NOTE | 2016-11-13 16:04 | CP.PCM.CON ---
History of Present Illness - History of Present Illness History of Present Illness: renal consult dictated Past Patient History - Infectious Disease Hx of Infectious Diseases: None - Past Medical History & Family History Past Medical History?: Yes - Past Social History Smoking Status: Never Smoked - CARDIAC Hx Congestive Heart Failure: Yes Hx Hypercholesterolemia: Yes Hx Hypertension: Yes - PULMONARY Hx Respiratory Disorders: No - NEUROLOGICAL Hx Neurological Disorder: Yes Other/Comment: Bilateral leg neuropathy - HEENT Hx HEENT Problems: Yes Hx Cataracts: Yes Other/Comment: cataract surgery [facility] 10 years ago - RENAL Hx Renal Failure: Yes (ESRD, CKD) - ENDOCRINE/METABOLIC Hx Diabetes Mellitus Type 2: Yes - HEMATOLOGICAL/ONCOLOGICAL Hx Anemia: Yes - INTEGUMENTARY Hx Dermatological Problems: No - MUSCULOSKELETAL/RHEUMATOLOGICAL Hx Falls: Yes - GASTROINTESTINAL Hx Gastritis: Yes - GENITOURINARY/GYNECOLOGICAL Hx Genitourinary Disorders: No - PSYCHIATRIC Hx Substance Use: Yes (marijuana 1 per day) - SURGICAL HISTORY Hx Surgeries: Yes Hx Vascular Access Device: Yes Other/Comment: RT.PERMACATH INSERTION 12/30. LT.AV SHUNT CREATION 02/17/16. UNDESCENDED TESTES LT. REMOVED DURING CHILDHOOD - ANESTHESIA Hx Anesthesia: Yes Hx Anesthesia Reactions: No Hx Malignant Hyperthermia: No Meds Allergies/Adverse Reactions: Allergies Allergy/AdvReac Type Severity Reaction Status Date / Time No Known Allergies Allergy Verified 11/12/16 10:45 - Medications Medications: Current Medications Acetaminophen (Tylenol 325mg Tab) 650 mg PO Q6 PRN PRN Reason: Fever >100.4 F Amlodipine Besylate (Norvasc) 10 mg PO DAILY [facility] Last Admin: 11/13/16 12:27 Dose: Not Given Aspirin (Ecotrin) 81 mg PO DAILY [facility] Last Admin: 11/13/16 12:27 Dose: 81 mg Clonidine HCl (Catapres) 0.3 mg PO TID [facility] Last Admin: 11/13/16 15:08 Dose: Not Given Clonidine HCl (Catapres-Tts2 0.2 Mg/24 Hr) 1 patch TD ONCE ONE Stop: 11/19/16 02:01 Enoxaparin Sodium (Lovenox) 30 mg SC DAILY [facility] Last Admin: 11/13/16 12:27 Dose: 30 mg Epoetin Oumar (Procrit) 3,000 unit SC [facility] Gabapentin (Neurontin) 300 mg PO DAILY [facility] Last Admin: 11/13/16 12:27 Dose: 300 mg Hydralazine HCl (Apresoline) 100 mg PO Q8 [facility] Last Admin: 11/13/16 15:08 Dose: Not Given Hydralazine HCl (Apresoline) 10 mg IVP Q6H PRN PRN Reason: HTN Last Admin: 11/13/16 05:43 Dose: 10 mg Insulin Aspart (Novolog) 14 unit SC AC [facility] Last Admin: 11/13/16 12:19 Dose: Not Given Insulin Aspart (Novolog) 0 unit SC ACHS [facility] PRN Reason: Protocol Last Admin: 11/13/16 12:20 Dose: Not Given Insulin Glargine (Lantus) 40 unit SC HS [facility] Last Admin: 11/12/16 22:08 Dose: Not Given Losartan Potassium (Cozaar) 50 mg PO DAILY [facility] Last Admin: 11/13/16 12:27 Dose: Not Given Ondansetron HCl (Zofran Inj) 4 mg IVP Q4H PRN PRN Reason: Nausea/Vomiting Last Admin: 11/12/16 22:08 Dose: 4 mg Vitamin B Complex/Vit C/Folic Acid (Nephro-Yomi) 1 tab PO 0800 [facility] Last Admin: 11/13/16 09:07 Dose: 1 tab Results - Vital Signs Recent Vital Signs: Last Vital Signs Temp 97.9 F 11/13/16 09:17 Pulse 89 11/13/16 09:17 Resp 20 11/13/16 09:17 BP 178/86 H 11/13/16 09:17 Pulse Ox 96 11/13/16 09:17 - Labs Result Diagrams: 11/13/16 08:05 11/13/16 08:05 Labs: Laboratory Results - last 24 hr 11/12/16 11/12/16 11/13/16 17:19 21:10 06:35 WBC RBC Hgb Hct MCV MCH MCHC RDW Plt Count MPV Neut % (Auto) Lymph % (Auto) Louisa % (Auto) Eos % (Auto) Baso % (Auto) Neut # Lymph # Louisa # Eos # Baso # Sodium Potassium Chloride Carbon Dioxide Anion Gap BUN Creatinine Est GFR ( Amer) Est GFR (Non-Af Amer) POC Glucose (mg/dL) 267 H 149 H 307 H Random Glucose Calcium Total Bilirubin AST ALT Alkaline Phosphatase Total Protein Albumin Globulin Albumin/Globulin Ratio 11/13/16 11/13/16 11/13/16 08:05 08:05 11:20 WBC 8.4 RBC 3.53 L Hgb 10.5 L Hct 32.7 L MCV 92.5 MCH 29.8 MCHC 32.3 L RDW 19.9 H Plt Count 308 MPV 9.2 Neut % (Auto) 69.2 Lymph % (Auto) 14.8 L Louisa % (Auto) 11.5 H Eos % (Auto) 3.4 Baso % (Auto) 1.1 Neut # 5.8 Lymph # 1.2 Louisa # 1.0 H Eos # 0.3 Baso # 0.1 Sodium 134 Potassium 4.0 Chloride 92 L Carbon Dioxide 28 Anion Gap 19 BUN 17 Creatinine 3.6 H Est GFR ( Amer) 23 Est GFR (Non-Af Amer) 19 POC Glucose (mg/dL) 96 Random Glucose 290 H Calcium 8.1 L Total Bilirubin 0.6 AST 22 ALT 29 Alkaline Phosphatase 112 Total Protein 6.4 Albumin 3.2 L D Globulin 3.2 Albumin/Globulin Ratio 1.0
[2016-11-13] MEDS: (Lantus) Insulin Glargine, Recombinant SC SCH (22:56)
--- NOTE | 2016-11-14 06:49 | CON ---
INITIAL NEPHROLOGY CONSULTATION DATE: 11/13/2016 CHIEF COMPLAINT: Nausea and vomiting. HISTORY OF PRESENT ILLNESS: The patient is a 36-year-old male with history as mentioned, has been admitted multiple times for recurrent nausea and vomiting because of cyclic emesis syndrome due to history of marijuana abuse, also some component of gastroparesis as well, usually done though well in the hospital without any further episodes of nausea, vomiting, but when he goes home, he smokes marijuana and results into persistent nausea and vomiting, in which bring him back to the hospital. The patient has numerous admission for this complaint. He come back with same issues. He is no more vomiting since he has been in the hospital, but does report nausea. He underwent dialysis yesterday, otherwise, denies shortness of breath. Denies any leg swelling. No other breathing complaint. No other issues. PAST MEDICAL HISTORY: Notable as mentioned. FAMILY HISTORY: No history of CKD or dialysis. REVIEW OF SYSTEMS: GENERAL: The patient otherwise feels in his usual health. Denies any fever, chills, weight changes. NEUROLOGIC: Denied any headache, tingling, numbness, dizziness or weakness. EYES: Denied any watery or itchy eyes. ENT: Denied any ear pain, sore throat or congestion. CARDIOVASCULAR: No chest pain or palpitation. RESPIRATORY: No shortness of breath, cough. GASTROINTESTINAL: Does report nausea, vomiting, pain in the upper abdominal area. No change in bowel habit. GENITOURINARY: No painful burning urination. EXTREMITIES: Denies leg swelling. PSYCHIATRIC: Denied any anxiety or depression at this time. LYMPHATIC: Denied any lymph node swelling. HEMATOLOGIC: Denied any active bleeding. SKIN: Denied any rash or ulceration. PHYSICAL EXAMINATION: GENERAL: The patient is an young male not in acute distress at this time. He is ambulatory. VITAL SIGNS: Afebrile. Pulse is 89, blood pressure 178/86, respirations are 20, saturation is well maintained. NEUROLOGIC: A and O x3. No focal deficits. Moving all 4 extremities. Strength and sensation intact. EYES: Both pupils equal and reactive. Conjunctivae are normal. No icterus or pallor. ENT: Oral cavity: Normal pharynx. Normal mucosa. No rash or ulceration. No thrush. NECK: Supple. No bruits. No thyromegaly. No lymphadenopathy. CARDIOVASCULAR: S1 and S2 normal. No murmur could be appreciated. No gallop. RESPIRATORY: Bilateral vesicular breath sounds, bilateral air entry normal, symmetrical, equal. No added sound. ABDOMEN: Soft. Mild epigastric tenderness is noted. No organomegaly. EXTREMITIES: No edema at this time. SKIN: No rash or ulceration. LYMPHATIC: No lymphadenopathy. HEMATOLOGIC: No active bleeding. GENITOURINARY: Kidney and bladder not palpable. Vascular access to left AV fistula. WORKUP: Hemoglobin is 10.5 and platelet count is 308. Sodium is 134, potassium 4, creatinine is 3.6, calcium is 8.1, and glucose is 290. Chest x-ray is unremarkable. ASSESSMENT: 1. 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 2. End-stage renal disease, on hemodialysis via arteriovenous fistula. 3. Diabetic and hypertensive chronic kidney disease. 4. Anemia. 5. Hypophosphatemia secondary to hyperparathyroidism. RECOMMENDATIONS: No acute need for dialysis today. The patient needs Tuesday, Tuesday, Tuesday schedule. We will plan for next dialysis on Tuesday. Continue with medication for blood pressure as ordered. Then he is also on Epogen low dose for his anemia. Then continue multivitamin once a day. He is also on Losartan 50 mg per day. Consider adding Reglan prior to meal. The patient again strongly advice to abstain from marijuana. The patient says he will try. All questions were answered. Thank you for the consultation. Please call if any questions. Brenton Larsen MD
[2016-11-14 08:36] LABS: BASO # 0.1 K/uL (0.0-0.2); BASO % 0.8 % (0.0-2.0); EOS # 0.6 K/uL (0.0-0.7); EOS % 5.8 % (0.0-4.0); HEMATOCRIT 32.3 % (35.0-51.0); LYMPH # 1.6 K/uL (1.0-4.3); LYMPH % 17.1 % (20.0-40.0); MEAN CELL VOLUME 92.3 fL (80.0-94.0); MEAN CORPUSCULAR HEMOGLOBIN 29.4 pg (27.0-31.0); MEAN CORPUSCULAR HGB CONC 31.8 g/dL (33.0-37.0); MEAN PLATELET VOLUME 8.8 fL (7.2-11.7); MONO # 1.4 K/uL (0.0-0.8); MONO % 14.6 % (0.0-10.0); NRBC % 0.1 % (0.0-2.0); RED CELL DISTRIBUTION WIDTH 19.3 % (11.5-14.5); WHITE BLOOD COUNT 9.5 K/uL (4.8-10.8)
[2016-11-14 08:56] LABS: POTASSIUM 4.5 mmol/L (3.6-5.2)
[2016-11-14 08:59] LABS: BILIRUBIN,TOTAL 0.5 mg/dL (0.2-1.3); CALCIUM 7.7 mg/dl (8.6-10.4); TOTAL PROTEIN 6.2 g/dL (6.3-8.3)
[2016-11-14] MEDS: (Novolog) Insulin Aspart, Recombinant 100 u/ml 10 ml vial SC SCH ×7 (09:02→22:38)
[2016-11-14] MEDS: Multivitamin Vitamin B Complex (Nephro-Vite) Tab PO SCH (09:03)
[2016-11-14] MEDS: Enoxaparin 30 mg Syringe SC SCH (09:03)
[2016-11-14] MEDS: Pantoprazole 40 mg EC Tab PO SCH (10:21)
--- NOTE | 2016-11-14 14:53 | CP.PCM.PN ---
Subjective - Date & Time of Evaluation Date of Evaluation: 11/14/16 Time of Evaluation: 14:50 - Subjective Subjective: Follow up Nephrology Consultation Note Assessment: Stable recurrent nausea/vomitting, cyclic emesis syndrome, marijuana abuse, gastroparesis Diabetic chronic Kidney Disease (E11.22) Hypertensive Chronic Kidney Disease (I12.0) End stage renal disease (N18.6) dependence on hemodialysis (Z99.2) (MWF) via AVF Anemia (D64.9), Hyperphosphatemia (E83.39), Secondary Hyperparathyroidism (E21.1 ), HTN (I12.0) Plan: No acute need for dialysis today. Will plan for dialysis tomorrow. Continue with Nephrovite 1 tab/day. PRBC as needed for anemia. On MOHINI as epogen Continue with phos binders BP control with meds as ordered. Patient on RAAS lola as losartan Glycemic control, Dialysis consistent diet Further work up/management as per primary team Dose meds/antibiotics (if needed) for ESRD status. Avoid fleets enema/magnesium based laxatives. started on reglan and PPI. pt counselled to abstain from marijuana Thanks for allowing me to participate in care of your patient. Will follow patient with you. Please call if any Qs Dr Brenton Larsen Office: [phone] Subjective: Noted events overnight. Patients feels okay. Denies chest pain, palpitation, shortness of breath, leg swelling. No urinary complaints. c/o nausea and mild epigastric pain Physical Examination: General Appearance: Comfortable, in no acute respiratory distress, co- operative. Vitals reviewed and noted as below Lungs: Normal respiratory rate/effort. Breath sounds bilateral equal and clear Heart: Normal rate. s1s2 normal. No rub or gallop. Extremities: no edema. Neurological: Patient is alert, awake and oriented to person, place and time. No focal deficit. Strength bilateral appropriate and equal Skin: Warm and dry. Normal turgor. No rash. Palpitation: Normal elasticity for age Abdomen: Abdomen is soft. Bowel sounds +. There is mild epigastric abdominal tenderness, no guarding/rigidity or organomegaly : kidney or bladder not palpable Access: AVF Labs/imaging reviewed. Past medical history, past surgical history, family history, social history, allergy reviewed Objective - Vital Signs/Intake and Output Vital Signs (last 24 hours): Temp Pulse Resp BP Pulse Ox 98 F 68 20 167/84 H 98 11/14/16 08:01 11/14/16 08:01 11/14/16 08:01 11/14/16 08:01 11/14/16 08:01 Intake and Output: 11/14/16 11/14/16 06:59 18:59 Intake Total 800 Balance 800 - Medications Medications: Current Medications Acetaminophen (Tylenol 325mg Tab) 650 mg PO Q6 PRN PRN Reason: Fever >100.4 F Last Admin: 11/14/16 06:46 Dose: 650 mg Amlodipine Besylate (Norvasc) 10 mg PO DAILY [facility] Last Admin: 11/14/16 09:04 Dose: 10 mg Aspirin (Ecotrin) 81 mg PO DAILY [facility] Last Admin: 11/14/16 09:05 Dose: 81 mg Clonidine HCl (Catapres) 0.3 mg PO TID [facility] Last Admin: 11/14/16 13:08 Dose: 0.3 mg Clonidine HCl (Catapres-Tts2 0.2 Mg/24 Hr) 1 patch TD ONCE ONE Stop: 11/19/16 02:01 Enoxaparin Sodium (Lovenox) 30 mg SC DAILY [facility] Last Admin: 11/14/16 09:03 Dose: 30 mg Epoetin Oumar (Procrit) 3,000 unit SC MWF [facility] Gabapentin (Neurontin) 300 mg PO DAILY [facility] Last Admin: 11/14/16 09:03 Dose: 300 mg Hydralazine HCl (Apresoline) 100 mg PO Q8 [facility] Last Admin: 11/14/16 13:08 Dose: 100 mg Hydralazine HCl (Apresoline) 10 mg IVP Q6H PRN PRN Reason: HTN Last Admin: 11/13/16 05:43 Dose: 10 mg Insulin Aspart (Novolog) 14 unit SC AC [facility] Last Admin: 11/14/16 12:14 Dose: Not Given Insulin Aspart (Novolog) 0 unit SC ACHS [facility] PRN Reason: Protocol Last Admin: 11/14/16 12:13 Dose: Not Given Insulin Glargine (Lantus) 40 unit SC HS [facility] Last Admin: 11/13/16 22:56 Dose: 40 unit Losartan Potassium (Cozaar) 50 mg PO DAILY [facility] Last Admin: 11/14/16 09:03 Dose: 50 mg Metoclopramide HCl (Reglan) 5 mg PO AC [facility] Last Admin: 11/14/16 12:46 Dose: 5 mg Ondansetron HCl (Zofran Inj) 4 mg IVP Q4H PRN PRN Reason: Nausea/Vomiting Last Admin: 11/12/16 22:08 Dose: 4 mg Pantoprazole Sodium (Protonix Ec Tab) 40 mg PO DAILY [facility] Last Admin: 11/14/16 10:21 Dose: 40 mg Vitamin B Complex/Vit C/Folic Acid (Nephro-Yomi) 1 tab PO 0800 [facility] Last Admin: 11/14/16 09:03 Dose: 1 tab - Labs Labs: 11/14/16 08:19 11/14/16 08:19
[2016-11-14] MEDS: (Lantus) Insulin Glargine, Recombinant SC SCH (22:45)
[2016-11-15 08:13] LABS: BASO % 0.2 % (0.0-2.0); EOS # 0.2 K/uL (0.0-0.7); EOS % 1.7 % (0.0-4.0); HEMATOCRIT 32.6 % (35.0-51.0); LYMPH # 0.4 K/uL (1.0-4.3); LYMPH % 4.4 % (20.0-40.0); MEAN CELL VOLUME 93.6 fL (80.0-94.0); MEAN CORPUSCULAR HEMOGLOBIN 29.9 pg (27.0-31.0); MEAN PLATELET VOLUME 8.8 fL (7.2-11.7); MONO # 0.1 K/uL (0.0-0.8); NRBC % 0.3 % (0.0-2.0); PLATELET COUNT 279 K/uL (130-400); RED CELL DISTRIBUTION WIDTH 19.4 % (11.5-14.5); WHITE BLOOD COUNT 9.1 K/uL (4.8-10.8)
[2016-11-15] MEDS: (Novolog) Insulin Aspart, Recombinant 100 u/ml 10 ml vial SC SCH ×7 (08:17→22:15)
[2016-11-15] MEDS: Multivitamin Vitamin B Complex (Nephro-Vite) Tab PO SCH (08:18)
[2016-11-15 08:21] LABS: POTASSIUM 5.5 mmol/L (3.6-5.2)
[2016-11-15 08:23] LABS: ALB/GLOB RATIO 1.1 (1.0-2.1); BILIRUBIN,TOTAL 0.5 mg/dL (0.2-1.3); CALCIUM 7.8 mg/dl (8.6-10.4); TOTAL PROTEIN 6.6 g/dL (6.3-8.3)
[2016-11-15] MEDS ORDERED: Epoetin Alfa Dialysis 3000 UNIT/ML Inj SC SCH (09:00)
--- NOTE | 2016-11-15 09:01 | CP.PCM.PN ---
Subjective - Date & Time of Evaluation Date of Evaluation: 11/15/16 Time of Evaluation: 09:00 - Subjective Subjective: PGY-[address] Chadwick's service Pt seen and examined at bedside. Denies chest pain, palpitation, shortness of breath, leg swelling. No urinary complaints. c/o nausea and mild epigastric pain Objective - Vital Signs/Intake and Output Vital Signs (last 24 hours): Temp Pulse Resp BP Pulse Ox 98.2 F 85 20 108/65 97 11/15/16 08:00 11/15/16 08:00 11/15/16 08:00 11/15/16 08:00 11/15/16 08:00 Intake and Output: 11/15/16 11/15/16 06:59 18:59 Intake Total 600 Balance 600 - Medications Medications: Current Medications Acetaminophen (Tylenol 325mg Tab) 650 mg PO Q6 PRN PRN Reason: Fever >100.4 F Last Admin: 11/14/16 06:46 Dose: 650 mg Amlodipine Besylate (Norvasc) 10 mg PO DAILY [facility] Last Admin: 11/14/16 09:04 Dose: 10 mg Aspirin (Ecotrin) 81 mg PO DAILY [facility] Last Admin: 11/14/16 09:05 Dose: 81 mg Clonidine HCl (Catapres) 0.3 mg PO TID [facility] Last Admin: 11/14/16 17:44 Dose: 0.3 mg Clonidine HCl (Catapres-Tts2 0.2 Mg/24 Hr) 1 patch TD ONCE ONE Stop: 11/19/16 02:01 Enoxaparin Sodium (Lovenox) 30 mg SC DAILY [facility] Last Admin: 11/14/16 09:03 Dose: 30 mg Epoetin Oumar (Procrit) 3,000 unit SC [facility] Gabapentin (Neurontin) 300 mg PO DAILY [facility] Last Admin: 11/14/16 09:03 Dose: 300 mg Hydralazine HCl (Apresoline) 100 mg PO Q8 [facility] Last Admin: 11/15/16 05:45 Dose: 100 mg Hydralazine HCl (Apresoline) 10 mg IVP Q6H PRN PRN Reason: HTN Last Admin: 11/13/16 05:43 Dose: 10 mg Insulin Aspart (Novolog) 14 unit SC [facility] Last Admin: 11/15/16 08:17 Dose: 14 unit Insulin Aspart (Novolog) 0 unit SC ACHS [facility] PRN Reason: Protocol Last Admin: 11/15/16 08:18 Dose: 4 unit Insulin Glargine (Lantus) 40 unit SC HS [facility] Last Admin: 11/14/16 22:45 Dose: 40 unit Ketorolac Tromethamine (Toradol) 30 mg IVP Q8 PRN PRN Reason: pain Last Admin: 11/15/16 06:31 Dose: 30 mg Losartan Potassium (Cozaar) 50 mg PO DAILY [facility] Last Admin: 11/14/16 09:03 Dose: 50 mg Metoclopramide HCl (Reglan) 5 mg PO AC [facility] Last Admin: 11/15/16 08:18 Dose: 5 mg Ondansetron HCl (Zofran Inj) 4 mg IVP Q4H PRN PRN Reason: Nausea/Vomiting Last Admin: 11/12/16 22:08 Dose: 4 mg Pantoprazole Sodium (Protonix Ec Tab) 40 mg PO DAILY [facility] Last Admin: 11/14/16 10:21 Dose: 40 mg Vitamin B Complex/Vit C/Folic Acid (Nephro-Yomi) 1 tab PO 0800 [facility] Last Admin: 11/15/16 08:18 Dose: 1 tab - Labs Labs: 11/15/16 07:54 11/15/16 07:54 Assessment and Plan - Assessment and Plan (Free Text) Plan: Hypertensive Urgency r/o emergency -given TD 0.2 Clonidine in ER, Enalaprit, and 10mg hydralazine in ER -PRN Hydralazine for SBP over 180/95 Amlodipine 10mg PO daily Clonidine 0.3 mg PO TID Hydralazine 10mg PO Q8H Hydralazine 10mng IV Q6H PRN Losartan 50mg PO Daily T2DM -last A1C on last admission last week 10.6 -glucose 306, anion gap elevated -RISS and accuchecks as well as home insulin dosing schedule; patient was not taking insulin as prescribed at home Lantus 40 units SC HS Aspart 14 units AC [facility] RISS DM neuropathy Gabapentin 300mg PO Daily Diarrhea; chronic -f/u C. Diff leukocytosis is improved from discharge previously -elevated WBC, no fevers, patient states he has had chronic diarrhea however ESRD patients are at increased risk for C.Diff Blood cultures: no growth x 3 days x 2 Intractable Vomiting -Zofran PRN Q6H 4mg Anemia; chronic and improved Hgb Stable -will monitor ESRD MWF -Renal Consult; Dr. 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 Manuel, podiatry consulted - f/u reccs PVD f/u US arterial doppler Prophylaxis Pepcid Zofran Lovenox HepSC; hold if the patient begins to bleed at AV fistula Renal Diet if patient can tolerate Palliative Care Consult placed for frequent admissions, goals of care conversation to be had PT/OT Shaan Dozier PGY-2 All medical managment per Dr. Chadwick
[2016-11-15 10:19] LABS: NEUTROPHIL 96 % (50-75); TOTAL CELLS COUNTED 100
[2016-11-15] MEDS ORDERED: Epoetin Alfa Dialysis 3000 UNIT/ML Inj IV SCH (11:38)
[2016-11-15] MEDS: Pantoprazole 40 mg EC Tab PO SCH (12:14)
[2016-11-15] MEDS: Enoxaparin 30 mg Syringe SC SCH (12:14)
--- NOTE | 2016-11-15 12:45 | CP.PCM.PN ---
Subjective - Date & Time of Evaluation Date of Evaluation: 11/15/16 Time of Evaluation: 12:45 - Subjective Subjective: Follow up Nephrology Consultation Note Assessment: Stable recurrent nausea/vomitting, cyclic emesis syndrome, marijuana abuse, gastroparesis Diabetic chronic Kidney Disease (E11.22) Hypertensive Chronic Kidney Disease (I12.0) End stage renal disease (N18.6) dependence on hemodialysis (Z99.2) (MWF) via AVF Anemia (D64.9), Hyperphosphatemia (E83.39), Secondary Hyperparathyroidism (E21.1 ), HTN (I12.0) Plan: dialysis today as ordered. Continue with Nephrovite 1 tab/day. PRBC as needed for anemia. On MOHINI as epogen Continue with phos binders BP control with meds as ordered. Patient on RAAS lola as losartan Glycemic control, Dialysis consistent diet Further work up/management as per primary team Dose meds/antibiotics (if needed) for ESRD status. Avoid fleets enema/magnesium based laxatives. started on reglan and PPI. pt counselled to abstain from marijuana Thanks for allowing me to participate in care of your patient. Will follow patient with you. Please call if any Qs Dr Brenton Larsen Office: [phone] Subjective: Noted events overnight. Patients feels okay. Denies chest pain, palpitation, shortness of breath, leg swelling. No urinary complaints. c/o nausea and mild epigastric pain Physical Examination: seen during HD General Appearance: Comfortable, in no acute respiratory distress, co- operative. Vitals reviewed and noted as below Lungs: Normal respiratory rate/effort. Breath sounds bilateral equal and clear Heart: Normal rate. s1s2 normal. No rub or gallop. Extremities: no edema. Neurological: Patient is alert, awake and oriented to person, place and time. No focal deficit. Strength bilateral appropriate and equal Skin: Warm and dry. Normal turgor. No rash. Palpitation: Normal elasticity for age Abdomen: Abdomen is soft. Bowel sounds +. There is mild epigastric abdominal tenderness, no guarding/rigidity or organomegaly : kidney or bladder not palpable Access: AVF Labs/imaging reviewed. Past medical history, past surgical history, family history, social history, allergy reviewed Objective - Vital Signs/Intake and Output Vital Signs (last 24 hours): Temp Pulse Resp BP Pulse Ox 98.2 F 106 H 18 124/71 99 11/15/16 09:45 11/15/16 09:45 11/15/16 09:45 11/15/16 12:15 11/15/16 09:45 Intake and Output: 11/15/16 11/15/16 06:59 18:59 Intake Total 600 Balance 600 - Medications Medications: Current Medications Acetaminophen (Tylenol 325mg Tab) 650 mg PO Q6 PRN PRN Reason: Fever >100.4 F Last Admin: 11/14/16 06:46 Dose: 650 mg Amlodipine Besylate (Norvasc) 10 mg PO DAILY [facility] Last Admin: 11/15/16 12:14 Dose: Not Given Aspirin (Ecotrin) 81 mg PO DAILY [facility] Last Admin: 11/15/16 12:13 Dose: Not Given Clonidine HCl (Catapres) 0.3 mg PO TID [facility] Last Admin: 11/15/16 12:13 Dose: Not Given Clonidine HCl (Catapres-Tts2 0.2 Mg/24 Hr) 1 patch TD ONCE ONE Stop: 11/19/16 02:01 Enoxaparin Sodium (Lovenox) 30 mg SC DAILY [facility] Last Admin: 11/15/16 12:14 Dose: Not Given Epoetin Oumar (Procrit) 3,000 unit IV MWF [facility] Last Admin: 11/15/16 11:42 Dose: 3,000 unit Gabapentin (Neurontin) 300 mg PO DAILY [facility] Last Admin: 11/15/16 12:14 Dose: Not Given Hydralazine HCl (Apresoline) 100 mg PO Q8 [facility] Last Admin: 11/15/16 05:45 Dose: 100 mg Hydralazine HCl (Apresoline) 10 mg IVP Q6H PRN PRN Reason: HTN Last Admin: 11/13/16 05:43 Dose: 10 mg Insulin Aspart (Novolog) 14 unit SC AC [facility] Last Admin: 11/15/16 12:14 Dose: Not Given Insulin Aspart (Novolog) 0 unit SC ACHS [facility] PRN Reason: Protocol Last Admin: 11/15/16 12:14 Dose: Not Given Insulin Glargine (Lantus) 40 unit SC HS [facility] Last Admin: 11/14/16 22:45 Dose: 40 unit Ketorolac Tromethamine (Toradol) 30 mg IVP Q8 PRN PRN Reason: pain Last Admin: 11/15/16 06:31 Dose: 30 mg Losartan Potassium (Cozaar) 50 mg PO DAILY [facility] Last Admin: 11/15/16 12:13 Dose: Not Given Metoclopramide HCl (Reglan) 5 mg PO AC [facility] Last Admin: 11/15/16 12:15 Dose: Not Given Ondansetron HCl (Zofran Inj) 4 mg IVP Q4H PRN PRN Reason: Nausea/Vomiting Last Admin: 11/12/16 22:08 Dose: 4 mg Pantoprazole Sodium (Protonix Ec Tab) 40 mg PO DAILY [facility] Last Admin: 11/15/16 12:14 Dose: Not Given Vitamin B Complex/Vit C/Folic Acid (Nephro-Yomi) 1 tab PO 0800 [facility] Last Admin: 11/15/16 08:18 Dose: 1 tab - Labs Labs: 11/15/16 07:54 11/15/16 07:54
--- NOTE | 2016-11-15 15:18 | CP.PCM.PCO ---
Physician Communication Note - Physician Communication Note Physician Communication Note: patient not seen, in HD. Will try in AM
[2016-11-15] MEDS: (Lantus) Insulin Glargine, Recombinant SC SCH (22:27)
[2016-11-16 01:23] VITALS: RESP 20; TEMP 97.9
[2016-11-16] MEDS: (Novolog) Insulin Aspart, Recombinant 100 u/ml 10 ml vial SC SCH ×5 (07:35→12:28)
[2016-11-16 07:40] LABS: BASO # 0.1 K/uL (0.0-0.2); BASO % 0.5 % (0.0-2.0); EOS # 0.9 K/uL (0.0-0.7); EOS % 7.1 % (0.0-4.0); HEMATOCRIT 35.6 % (35.0-51.0); LYMPH # 1.9 K/uL (1.0-4.3); LYMPH % 14.5 % (20.0-40.0); MEAN CELL VOLUME 92.7 fL (80.0-94.0); MEAN CORPUSCULAR HEMOGLOBIN 28.7 pg (27.0-31.0); MEAN CORPUSCULAR HGB CONC 30.9 g/dL (33.0-37.0); MEAN PLATELET VOLUME 8.7 fL (7.2-11.7); MONO # 1.6 K/uL (0.0-0.8); RED CELL DISTRIBUTION WIDTH 19.4 % (11.5-14.5)
[2016-11-16] MEDS: Multivitamin Vitamin B Complex (Nephro-Vite) Tab PO SCH (08:00)
[2016-11-16 08:06] LABS: POTASSIUM 4.8 mmol/L (3.6-5.2)
[2016-11-16 08:08] LABS: BILIRUBIN,TOTAL 0.5 mg/dL (0.2-1.3); TOTAL PROTEIN 6.8 g/dL (6.3-8.3)
[2016-11-16 08:09] LABS: CALCIUM 8.2 mg/dl (8.6-10.4); PHOSPHOROUS 4.1 mg/dL (2.5-4.5)
[2016-11-16 09:49] VITALS: BP 146/67; PULSE 88; O2SAT 99
[2016-11-16] MEDS: Enoxaparin 30 mg Syringe SC SCH (09:57)
[2016-11-16] MEDS ORDERED: Pneumococcal 23-Valent Vaccine IM ONE (10:00)
[2016-11-16] MEDS: Pantoprazole 40 mg EC Tab PO SCH (10:00)
--- NOTE | 2016-11-16 11:29 | CP.PCM.PN ---
Subjective - Date & Time of Evaluation Date of Evaluation: 11/16/16 Time of Evaluation: 11:27 - Subjective Subjective: PGY-[address] Chadwick's service Pt seen and examined at bedside. Nursing reports patient is eating large amount of food from patient refrigerator. Patient reminded the importance of watching his blood sugar, to stave off jail effects of diabetes on heart, eyes, kidneys. He is found walking the halls comfortably. He denies chest pain, palpitation, shortness of breath, leg swelling. He admits wound on his foot, but does not remember how he got it. He denies fever, chills, warmth to area, or swelling/drainage. Patient stable for discharge per Dr. Chadwick. He may resume his home medications. He is to follow up with PMD, Dr. Chadwick, at his office within one week. He is to schedule his appointment for Tuesday at 9AM so he can meet with the cancer genetic counselor, Dr. Manuel who shares an office with Dr. Chadwick. If symptoms return or worsen he is to return to the emergency department. Patient verbalized his understanding, and agreed to these instructions. Prescribed home meds: NONE - Spoke with patient's mother who confirms that patient does not need refills Objective - Vital Signs/Intake and Output Vital Signs (last 24 hours): Temp Pulse Resp BP Pulse Ox 97.9 F 88 20 146/67 99 11/16/16 09:48 11/16/16 09:48 11/16/16 09:48 11/16/16 09:48 11/16/16 09:48 - Medications Medications: Current Medications Acetaminophen (Tylenol 325mg Tab) 650 mg PO Q6 PRN PRN Reason: Fever >100.4 F Last Admin: 11/14/16 06:46 Dose: 650 mg Amlodipine Besylate (Norvasc) 10 mg PO DAILY [facility] Last Admin: 11/16/16 09:57 Dose: 10 mg Aspirin (Ecotrin) 81 mg PO DAILY [facility] Last Admin: 11/16/16 09:57 Dose: 81 mg Clonidine HCl (Catapres) 0.3 mg PO TID [facility] Last Admin: 11/16/16 09:57 Dose: 0.3 mg Clonidine HCl (Catapres-Tts2 0.2 Mg/24 Hr) 1 patch TD ONCE ONE Stop: 11/19/16 02:01 Enoxaparin Sodium (Lovenox) 30 mg SC DAILY [facility] Last Admin: 11/16/16 09:57 Dose: 30 mg Epoetin Oumar (Procrit) 3,000 unit IV MWF [facility] Last Admin: 11/15/16 11:42 Dose: 3,000 unit Gabapentin (Neurontin) 300 mg PO DAILY [facility] Last Admin: 11/16/16 09:57 Dose: 300 mg Hydralazine HCl (Apresoline) 100 mg PO Q8 [facility] Last Admin: 11/16/16 06:18 Dose: Not Given Hydralazine HCl (Apresoline) 10 mg IVP Q6H PRN PRN Reason: HTN Last Admin: 11/13/16 05:43 Dose: 10 mg Insulin Aspart (Novolog) 14 unit SC AC [facility] Last Admin: 11/16/16 07:35 Dose: Not Given Insulin Aspart (Novolog) 0 unit SC ACHS [facility] PRN Reason: Protocol Last Admin: 11/16/16 09:57 Dose: 3 unit Insulin Glargine (Lantus) 40 unit SC [facility] Last Admin: 11/15/16 22:27 Dose: 40 unit Ketorolac Tromethamine (Toradol) 30 mg IVP Q8 PRN PRN Reason: pain Last Admin: 11/15/16 22:27 Dose: 30 mg Losartan Potassium (Cozaar) 50 mg PO DAILY [facility] Last Admin: 11/16/16 09:57 Dose: 50 mg Metoclopramide HCl (Reglan) 5 mg PO AC [facility] Last Admin: 11/16/16 06:36 Dose: Not Given Ondansetron HCl (Zofran Inj) 4 mg IVP Q4H PRN PRN Reason: Nausea/Vomiting Last Admin: 11/12/16 22:08 Dose: 4 mg Pantoprazole Sodium (Protonix Ec Tab) 40 mg PO DAILY [facility] Last Admin: 11/16/16 10:00 Dose: 40 mg Vitamin B Complex/Vit C/Folic Acid (Nephro-Yomi) 1 tab PO 0800 [facility] Last Admin: 11/16/16 08:00 Dose: 1 tab - Labs Labs: 11/16/16 07:25 11/16/16 07:25 - Constitutional Appears: Non-toxic, No Acute Distress - Head Exam Head Exam: ATRAUMATIC, NORMOCEPHALIC - Eye Exam Eye Exam: EOMI, Normal appearance. absent: Scleral icterus - Respiratory Exam Respiratory Exam: Clear to Ausculation Bilateral, NORMAL BREATHING PATTERN. absent: Rales, Rhonchi, Wheezes - Cardiovascular Exam Cardiovascular Exam: REGULAR RHYTHM, +S1, +S2 - GI/Abdominal Exam GI & Abdominal Exam: Soft, Normal Bowel Sounds. absent: Tenderness - Extremities Exam Extremities Exam: Normal Inspection, Tenderness (right foot, no infected, no wamrth/swelling/drainage). absent: Pedal Edema - Back Exam Back Exam: absent: CVA tenderness (L), CVA tenderness (R) - Neurological Exam Neurological Exam: Alert, Awake, Oriented x3 - Psychiatric Exam Psychiatric exam: Normal Affect, Normal Mood - Skin Skin Exam: Normal Color, Warm Assessment and Plan - Assessment and Plan (Free Text) Plan: Hypertensive Urgency r/o emergency Patients pressure control improved -given TD 0.2 Clonidine in ER, Enalaprit, and 10mg hydralazine in ER -PRN Hydralazine for SBP over 180/95 Amlodipine 10mg PO daily Clonidine 0.3 mg PO TID Hydralazine 10mg PO Q8H Hydralazine 10mng IV Q6H PRN Losartan 50mg PO Daily T2DM Blood glucose control improving -last A1C on last admission last week 10.6 -glucose 306, anion gap elevated -RISS and accuchecks as well as home insulin dosing schedule; patient was not taking insulin as prescribed at home Lantus 40 units SC HS Aspart 14 units AC [facility] RISS DM neuropathy Gabapentin 300mg PO Daily Diarrhea; chronic Blood cultures: no growth x 5 days x 2 Intractable Vomiting -Zofran PRN Q6H 4mg Anemia; chronic and improved Hgb Stable -will monitor ESRD MWF -Renal Consult; Dr. MCCALL; appreciate recs; -c/w monitoring -patient still makes small amounts of urine CHF Diastolic preserved EF Chronic -last echo done in 2015 showed preserved EF with mild hypertrophic changes Cannabis abuse;chronic -jail cannabis use has been linked to increased HTN and all cause from HTN -patient has been educated of risks and does not wish to stop smoking marijuana Right lower extremity ulcer Dr. Manuel, podiatry consulted - f/u reccs PVD f/u US arterial doppler Prophylaxis Pepcid Zofran Lovenox HepSC; hold if the patient begins to bleed at AV fistula Renal Diet if patient can tolerate Palliative Care Consult placed for frequent admissions, goals of care conversation to be had PT/OT Eval Disposition: Pt stable for discharge per Dr. Farrukh Dozier PGY-2 All medical managment per Dr. Chadwick
--- NOTE | 2016-11-16 12:50 | CP.PCM.CON ---
History of Present Illness - History of Present Illness History of Present Illness: palliative consult Requested by kristin Hassan DO Reason: Goals of care Patient is a 36 yo male with multiple admissions to this hospital for the same symptoms of nausea and abdominal pain. This time, nausea and abdominal pain begun on the morning of admission, Patient denies chest pain, chills or fever. The CXR upon admission was negative acute disease. WBC today natalya to 13.0 from 9.1, Hb 11.0. patient is post HD yesterday. The impression is that symptoms of nausea and abdominal pain are directly related to patient's daily use of marijuana. PMH: gastritis, HTN, DM, ESRD with HD, begunlast year, daily use of Marijuana for > 20 years, decreased eyes sight, glaucoma Soc. Hx: single, livs at home with his mother fam> Hx: grandmother from complications of DM, brother with DM Review of Systems - Constitutional Constitutional: Weakness - EENT Eyes: Loss of Vision Ears: absent: As Per HPI, Decreased Hearing, Ear Discharge, Ear Pain, Tinnitus, Abnormal Hearing, Disequilibrium, Dizziness, Other Nose/Mouth/Throat: absent: As Per HPI, Epistaxis, Nasal Congestion, Nasal Discharge, Nasal Obstruction, Nasal Trauma, Nose Pain, Post Nasal Drip, Sinus Pain, Sinus Pressure, Bleeding Gums, Change in Voice, Dental Pain, Dry Mouth, Dysphagia, Halitosis, Hoarsness, Lip Swelling, Mouth Lesions, Mouth Pain, Odynophagia, Sore Throat, Throat Swelling, Tongue Swelling, Facial Pain, Neck Pain, Neck Mass, Other - Cardiovascular Cardiovascular: Lightheadedness - Respiratory Respiratory: absent: As Per HPI, Cough, Dyspnea, Hemoptysis, Dyspnea on Exertion , Wheezing, Snoring, Stridor, Pain on Inspiration, Chest Congestion, Excessive Mucous Production, Change in Mucous Color, Pain with Coughing, Other - Gastrointestinal Gastrointestinal: Abdominal Pain, Nausea - Genitourinary Genitourinary: absent: As Per HPI, Change in Urinary Stream, Difficulty Urinating, Dysuria, Flank Pain, Hematuria, Pyuria, Nocturia, Urinary Incontinence, Urinary Frequency, Urinary Hesitance, Urinary Urgency, Voiding Freq/Small Amts, Freq UTI, Hx Renal/Bladder Calculi, Hx /Renal Surgery, Bladder Distension, Other - Musculoskeletal Musculoskeletal: Abnormal Gait - Integumentary Integumentary: absent: As Per HPI, Acne, Alopecia, Bleeding Lesions, Change in Hair, Change in Nails, Change in Pigmentation, Changing Lesions, Dry Skin, Erythema, Furuncle, Hirsutism, Lesions, New Lesions, Non-Healing Lesions, Photosensitivity, Pruritus, Rash, Skin Pain, Skin Ulcer, Sores, Striae, Swelling , Unusual Bruising, Wounds, Jaundice, Other - Neurological Neurological: absent: As Per HPI, Abnormal Gait, Abnormal Hearing, Abnormal Movements, Abnormal Speech, Behavioral Changes, Burning Sensations, Confusion, Convulsions, Disequilibrium, Dizziness, Numbness, Focal Weakness, Frequent Falls , Headaches, Lack of Coordination, Loss of Vision, Memory Loss, Paresthesias, Radicular Pain, Restless Legs, Sensory Deficit, Syncope, Tingling, Tremor, Vertigo, Weakness, Other Visual Disturbances, Other - Psychiatric Psychiatric: absent: As Per HPI, Abnormal Sleep Pattern, Anhedonia, Anxiety, Auditory Hallucinations, Behavioral Changes, Change in Appetite, Change in Libido, Confusion, Depression, Difficulty Concentrating, Hallucinations, Homicidal Ideation, Hopelessness, Irritability, Memory Loss, Mood Swings, Panic Attacks, Paranoia, Suicidal Ideation, Visual Hallucinations, Tactile Hallucinations, Other - Endocrine Endocrine: absent: As Per HPI, Change in Body Appearance, Change in Libido, Cold Intolorance, Deepening of Voice, Excessive Sweating, Fatigue, Flushing, Heat Intolorance, Increase in Ring/Shoe/Hat Size, Palpitations, Polydipsia, Polyphagia, Polyuria, Other - Hematologic/Lymphatic Hematologic: absent: As Per HPI, Easy Bleeding, Easy Bruising, Lymphadenopathy, Other Past Patient History - Infectious Disease Hx of Infectious Diseases: None - Past Medical History & Family History Past Medical History?: Yes - Past Social History Smoking Status: Never Smoked - CARDIAC Hx Congestive Heart Failure: Yes Hx Hypercholesterolemia: Yes Hx Hypertension: Yes Hx Peripheral Edema: Yes - PULMONARY Hx Respiratory Disorders: No - NEUROLOGICAL Hx Neurological Disorder: Yes Other/Comment: Bilateral leg neuropathy - HEENT Hx HEENT Problems: Yes Hx Cataracts: Yes Other/Comment: cataract surgery [facility] 10 years ago - RENAL Hx Chronic Kidney Disease: Yes - ENDOCRINE/METABOLIC Hx Diabetes Mellitus Type 2: Yes - HEMATOLOGICAL/ONCOLOGICAL Hx Anemia: Yes - INTEGUMENTARY Hx Dermatological Problems: No - MUSCULOSKELETAL/RHEUMATOLOGICAL Hx Falls: Yes - GASTROINTESTINAL Hx Gastritis: Yes - GENITOURINARY/GYNECOLOGICAL Hx Genitourinary Disorders: No - PSYCHIATRIC Hx Substance Use: Yes (marijuana 1 per day) - SURGICAL HISTORY Hx Surgeries: Yes Hx Vascular Access Device: Yes Other/Comment: RT.PERMACATH INSERTION 12/30. LT.AV SHUNT CREATION 02/17/16. UNDESCENDED TESTES LT. REMOVED DURING CHILDHOOD - ANESTHESIA Hx Anesthesia: Yes Hx Anesthesia Reactions: No Hx Malignant Hyperthermia: No Meds Home Medications: Home Medication List Medication Instructions Recorded Confirmed Type Vitamin B Complex/Vit C/Folic 1 tab PO 0800 tab 11/16/16 Rx [Nephro-Yomi] Allergies/Adverse Reactions: Allergies Allergy/AdvReac Type Severity Reaction Status Date / Time No Known Allergies Allergy Verified 11/12/16 10:45 - Medications Medications: Current Medications Acetaminophen (Tylenol 325mg Tab) 650 mg PO Q6 PRN PRN Reason: Fever >100.4 F Last Admin: 11/14/16 06:46 Dose: 650 mg Amlodipine Besylate (Norvasc) 10 mg PO DAILY [facility] Last Admin: 11/16/16 09:57 Dose: 10 mg Aspirin (Ecotrin) 81 mg PO DAILY [facility] Last Admin: 11/16/16 09:57 Dose: 81 mg Clonidine HCl (Catapres) 0.3 mg PO TID [facility] Last Admin: 11/16/16 09:57 Dose: 0.3 mg Clonidine HCl (Catapres-Tts2 0.2 Mg/24 Hr) 1 patch TD ONCE ONE Stop: 11/19/16 02:01 Enoxaparin Sodium (Lovenox) 30 mg SC DAILY [facility] Last Admin: 11/16/16 09:57 Dose: 30 mg Epoetin Oumar (Procrit) 3,000 unit IV MWF [facility] Last Admin: 11/15/16 11:42 Dose: 3,000 unit Gabapentin (Neurontin) 300 mg PO DAILY [facility] Last Admin: 11/16/16 09:57 Dose: 300 mg Hydralazine HCl (Apresoline) 100 mg PO Q8 [facility] Last Admin: 11/16/16 06:18 Dose: Not Given Hydralazine HCl (Apresoline) 10 mg IVP Q6H PRN PRN Reason: HTN Last Admin: 11/13/16 05:43 Dose: 10 mg Insulin Aspart (Novolog) 14 unit SC [facility] Last Admin: 11/16/16 12:28 Dose: Not Given Insulin Aspart (Novolog) 0 unit SC ACHS [facility] PRN Reason: Protocol Last Admin: 11/16/16 12:27 Dose: 4 unit Insulin Glargine (Lantus) 40 unit SC HS [facility] Last Admin: 11/15/16 22:27 Dose: 40 unit Ketorolac Tromethamine (Toradol) 30 mg IVP Q8 PRN PRN Reason: pain Last Admin: 11/15/16 22:27 Dose: 30 mg Losartan Potassium (Cozaar) 50 mg PO DAILY [facility] Last Admin: 11/16/16 09:57 Dose: 50 mg Metoclopramide HCl (Reglan) 5 mg PO AC [facility] Last Admin: 11/16/16 06:36 Dose: Not Given Ondansetron HCl (Zofran Inj) 4 mg IVP Q4H PRN PRN Reason: Nausea/Vomiting Last Admin: 11/12/16 22:08 Dose: 4 mg Pantoprazole Sodium (Protonix Ec Tab) 40 mg PO DAILY [facility] Last Admin: 11/16/16 10:00 Dose: 40 mg Vitamin B Complex/Vit C/Folic Acid (Nephro-Yomi) 1 tab PO 0800 [facility] Last Admin: 11/16/16 08:00 Dose: 1 tab Physical Exam - Constitutional Appears: Chronically Ill - Head Exam Head Exam: ATRAUMATIC, NORMAL INSPECTION, NORMOCEPHALIC - Eye Exam Eye Exam: EOMI, Normal appearance, PERRL Pupil Exam: NORMAL ACCOMODATION, PERRL - ENT Exam ENT Exam: Mucous Membranes Moist, Normal Exam - Neck Exam Neck exam: Positive for: Normal Inspection - Respiratory Exam Respiratory Exam: Decreased Breath Sounds, NORMAL BREATHING PATTERN - Cardiovascular Exam Cardiovascular Exam: Tachycardia, REGULAR RHYTHM - GI/Abdominal Exam GI & Abdominal Exam: Normal Bowel Sounds, Soft - Rectal Exam Rectal Exam: Deferred - Extremities Exam Extremities exam: Positive for: normal inspection - Back Exam Back exam: NORMAL INSPECTION - Neurological Exam Neurological exam: Alert, Oriented x3 - Psychiatric Exam Psychiatric exam: Normal Affect, Normal Mood - Skin Skin Exam: Intact, Normal Color, Warm Results - Vital Signs Recent Vital Signs: Last Vital Signs Temp 97.9 F 11/16/16 09:48 Pulse 88 11/16/16 09:48 Resp 20 11/16/16 09:48 BP 146/67 11/16/16 09:48 Pulse Ox 99 11/16/16 09:48 - Labs Result Diagrams: 11/16/16 07:25 11/16/16 07:25 Labs: Laboratory Results - last 24 hr 11/15/16 11/15/16 11/16/16 16:38 21:15 06:47 WBC RBC Hgb Hct MCV MCH MCHC RDW Plt Count MPV Neut % (Auto) Lymph % (Auto) [place] % (Auto) Eos % (Auto) Baso % (Auto) Neut # Lymph # [place] # Eos # Baso # Sodium Potassium Chloride Carbon Dioxide Anion Gap BUN Creatinine Est GFR ( Amer) Est GFR (Non-Af Amer) POC Glucose (mg/dL) 300 H 166 H 45 L Random Glucose Calcium Phosphorus Magnesium Total Bilirubin AST ALT Alkaline Phosphatase Total Protein Albumin Globulin Albumin/Globulin Ratio 11/16/16 11/16/16 11/16/16 07:25 07:25 07:34 WBC 13.0 H RBC 3.84 L Hgb 11.0 L Hct 35.6 MCV 92.7 MCH 28.7 MCHC 30.9 L RDW 19.4 H Plt Count 255 MPV 8.7 Neut % (Auto) 65.9 Lymph % (Auto) 14.5 L [place] % (Auto) 12.0 H Eos % (Auto) 7.1 H Baso % (Auto) 0.5 Neut # 8.6 H Lymph # 1.9 [place] # 1.6 H Eos # 0.9 H Baso # 0.1 Sodium 137 Potassium 4.8 Chloride 99 Carbon Dioxide 22 Anion Gap 21 H BUN 42 H Creatinine 6.6 H Est GFR ( Amer) 12 Est GFR (Non-Af Amer) 10 POC Glucose (mg/dL) 222 H Random Glucose 79 Calcium 8.2 L Phosphorus 4.1 Magnesium 2.0 Total Bilirubin 0.5 AST 20 ALT 28 Alkaline Phosphatase 102 Total Protein 6.8 Albumin 3.5 Globulin 3.3 Albumin/Globulin Ratio 1.0 11/16/16 11:48 WBC RBC Hgb Hct MCV MCH MCHC RDW Plt Count MPV Neut % (Auto) Lymph % (Auto) [place] % (Auto) Eos % (Auto) Baso % (Auto) Neut # Lymph # [place] # Eos # Baso # Sodium Potassium Chloride Carbon Dioxide Anion Gap BUN Creatinine Est GFR ( Amer) Est GFR (Non-Af Amer) POC Glucose (mg/dL) 297 H Random Glucose Calcium Phosphorus Magnesium Total Bilirubin AST ALT Alkaline Phosphatase Total Protein Albumin Globulin Albumin/Globulin Ratio Assessment & Plan - Assessment and Plan (Free Text) Assessment: Palliative consult Code status Full Code, PPS 50%, no Advance Directive on chart. I reviewed medical records, all diagnostic studies, examined and interviewed patient in the bed and discussed the health insurance issues with VANESSA Tatum. Patient is alert, oriented x 3 in no acute distress. Patient reports not seeing well since about one year ago. he said he noticed changes in his vision about at the same time when his HD started. Abdomen is soft with diminished bowel sounds, denies constipation. Patient complains of chronic abdominal pain. Patient not able to offer any reasons that he thinks was causing the pain. The abdominal pain has been there for many years. Patient claims begun using daily Marijuna to relieve the pain. Patient was also using Oxycontin at home, but due to insurance issues, he was not able to fill in his prescriptions. Patient talks openly about his habit with Marijuana, but also claims that he could stop using it without going trough withdrawal. Patient insists that Marijuana was only used for pain relief. I suggested that patient sees psychiatrist and consider admission to the drug rehab. Patient agreed. I further discussed his insurance isues with Deepti MENDEZ. Deepti will talk to patient and see if she could help him with applying for a Medicaid. Impression * This is a young man with multiple co morbidities * Patient is dependent of Marijuana and pain meds * Since his opiods prescriptions could not be filled due to health insurance issues, patient most likely increased the dose of Marijuana what is giving him symptoms of nausea and abdominal pain * patient is willing to start the opioid dependency rehab program Suggestion * Would consider Psych consult for eval for admission to psych rehab unit.
--- NOTE | 2016-11-16 13:24 | PCM.HF ---
Heart Failure Core Measure - Heart Failure Ejection Fraction: 40 % or Greater DANDRE Inhibitor Prescribed: No Contraindication/Reason for not providing: on ARB Beta-Cynthia Prescribed: Metoprolol Succinate Angiotensin II Receptor Cynthia Prescribed: Yes AnticoagulationTherapy for Atrial Fibrillation/Atrialflutter: No Contraindication/Reason for not providing: no hx of afib Aldosterone Antagonist Prescribed: No Contraindication/Reason for not providing: cRF/ef>45 Hydralazine Nitrate Prescribed: Yes Implantable Cardioverter Defibrillator Therapy: No Contraindication/Reason for not providing: ef>45 Cardiac Resynchronization Therapy Prescribed: No Contraindication/Reason for not providing: NSR - Follow up Will be discharged to: Home Follow Up Date (must be within 7 days from discharge): 11/19/16 Follow Up Time: 09:00
[2016-11-16] MEDS ORDERED: Influenza Vaccine 60 mcg/0.5 mL SYR (4YR UP) IM ONE (14:00)
--- NOTE | 2016-11-16 15:05 | CP.PCM.PN ---
Subjective - Date & Time of Evaluation Date of Evaluation: 11/16/16 Time of Evaluation: 11:00 - Subjective Subjective: Follow up Nephrology Consultation Note Assessment: Stable recurrent nausea/vomitting, cyclic emesis syndrome, marijuana abuse, gastroparesis Diabetic chronic Kidney Disease (E11.22) Hypertensive Chronic Kidney Disease (I12.0) End stage renal disease (N18.6) dependence on hemodialysis (Z99.2) (MWF) via AVF Anemia (D64.9), Hyperphosphatemia (E83.39), Secondary Hyperparathyroidism (E21.1 ), HTN (I12.0) Plan: dialysis tomorrow as ordered. Continue with Nephrovite 1 tab/day. PRBC as needed for anemia. On MOHINI as epogen Continue with phos binders BP control with meds as ordered. Patient on RAAS lola as losartan Glycemic control, Dialysis consistent diet Further work up/management as per primary team Dose meds/antibiotics (if needed) for ESRD status. Avoid fleets enema/magnesium based laxatives. started on reglan and PPI. pt counselled to abstain from marijuana Thanks for allowing me to participate in care of your patient. Will follow patient with you. Please call if any Qs Dr Brenton Larsen Office: [phone] Subjective: Noted events overnight. Patients feels okay. Denies chest pain, palpitation, shortness of breath, leg swelling. No urinary complaints. c/o nausea and mild epigastric pain whics is improved Physical Examination: seen during HD General Appearance: Comfortable, in no acute respiratory distress, co- operative. Vitals reviewed and noted as below Lungs: Normal respiratory rate/effort. Breath sounds bilateral equal and clear Heart: Normal rate. s1s2 normal. No rub or gallop. Extremities: no edema. Neurological: Patient is alert, awake and oriented to person, place and time. No focal deficit. Strength bilateral appropriate and equal Skin: Warm and dry. Normal turgor. No rash. Palpitation: Normal elasticity for age Abdomen: Abdomen is soft. Bowel sounds +. There is mild epigastric abdominal tenderness, no guarding/rigidity or organomegaly : kidney or bladder not palpable Access: AVF Labs/imaging reviewed. Past medical history, past surgical history, family history, social history, allergy reviewed Objective - Vital Signs/Intake and Output Vital Signs (last 24 hours): Temp Pulse Resp BP Pulse Ox 97.9 F 88 20 146/67 99 11/16/16 09:48 11/16/16 09:48 11/16/16 09:48 11/16/16 09:48 11/16/16 09:48 - Labs Labs: 11/16/16 07:25 11/16/16 07:25
--- NOTE | 2016-11-16 15:20 | CP.PCM.CON ---
History of Present Illness - History of Present Illness History of Present Illness: Pt seen at bedside with attending Dr. Manuel concerning right heel plantar ulcerations. Pt reports that fissuring has occured to lef heel with bloody discharge occasionaly produced. Larger ulceration existed 3 weeks ago which has since healed. over. Pt denies seeking active medical treatment and has kept the area clean with epsom salt soaks. He deneis recent f/c/cp/sob/n/v. Past Patient History - Infectious Disease Hx of Infectious Diseases: None - Past Medical History & Family History Past Medical History?: Yes - Past Social History Smoking Status: Never Smoked - CARDIAC Hx Congestive Heart Failure: Yes Hx Hypercholesterolemia: Yes Hx Hypertension: Yes Hx Peripheral Edema: Yes - PULMONARY Hx Respiratory Disorders: No - NEUROLOGICAL Hx Neurological Disorder: Yes Other/Comment: Bilateral leg neuropathy - HEENT Hx HEENT Problems: Yes Hx Cataracts: Yes Other/Comment: cataract surgery [facility] 10 years ago - RENAL Hx Chronic Kidney Disease: Yes - ENDOCRINE/METABOLIC Hx Diabetes Mellitus Type 2: Yes - HEMATOLOGICAL/ONCOLOGICAL Hx Anemia: Yes - INTEGUMENTARY Hx Dermatological Problems: No - MUSCULOSKELETAL/RHEUMATOLOGICAL Hx Falls: Yes - GASTROINTESTINAL Hx Gastritis: Yes - GENITOURINARY/GYNECOLOGICAL Hx Genitourinary Disorders: No - PSYCHIATRIC Hx Substance Use: Yes (marijuana 1 per day) - SURGICAL HISTORY Hx Surgeries: Yes Hx Vascular Access Device: Yes Other/Comment: RT.PERMACATH INSERTION 12/30. LT.AV SHUNT CREATION 02/17/16. UNDESCENDED TESTES LT. REMOVED DURING CHILDHOOD - ANESTHESIA Hx Anesthesia: Yes Hx Anesthesia Reactions: No Hx Malignant Hyperthermia: No Meds Home Medications: Home Medication List Medication Instructions Recorded Confirmed Type Vancomycin 500mg in NS 500 mg IVPB MWF #6 bag 11/16/16 Rx Vitamin B Complex/Vit C/Folic 1 tab PO 0800 tab 11/16/16 Rx [Nephro-Yomi] Allergies/Adverse Reactions: Allergies Allergy/AdvReac Type Severity Reaction Status Date / Time No Known Allergies Allergy Verified 11/12/16 10:45 Physical Exam - Constitutional Appears: Well, Non-toxic, No Acute Distress - Extremities Exam Additional comments: Bilateral exam. DERM: Bilateral sub 5th metatarsal head hyperkeratotic lesion, noted hematogenous core in center of right lesion. Right forefoot partial thickness fissure measuring 3 cm longht jamil and 4mm deep. No active discharge noted. Upon debridement of periwound hyperkeratotic tissue erythematous margin noted. extending to dorso-lateral surface of foot. VASC: lateral foot and lateral ankle lympghagitis non-pitting edema noted, with continuos overlying discoloration. Results - Vital Signs Recent Vital Signs: Last Vital Signs Temp 97.9 F 11/16/16 09:48 Pulse 88 11/16/16 09:48 Resp 20 11/16/16 09:48 BP 146/67 11/16/16 09:48 Pulse Ox 99 11/16/16 09:48 - Labs Result Diagrams: 11/16/16 07:25 11/16/16 07:25 Labs: Laboratory Results - last 24 hr 11/15/16 11/15/16 11/16/16 16:38 21:15 06:47 WBC RBC Hgb Hct MCV MCH MCHC RDW Plt Count MPV Neut % (Auto) Lymph % (Auto) [place] % (Auto) Eos % (Auto) Baso % (Auto) Neut # Lymph # [place] # Eos # Baso # Sodium Potassium Chloride Carbon Dioxide Anion Gap BUN Creatinine Est GFR ( Amer) Est GFR (Non-Af Amer) POC Glucose (mg/dL) 300 H 166 H 45 L Random Glucose Calcium Phosphorus Magnesium Total Bilirubin AST ALT Alkaline Phosphatase Total Protein Albumin Globulin Albumin/Globulin Ratio 11/16/16 11/16/16 11/16/16 07:25 07:25 07:34 WBC 13.0 H RBC 3.84 L Hgb 11.0 L Hct 35.6 MCV 92.7 MCH 28.7 MCHC 30.9 L RDW 19.4 H Plt Count 255 MPV 8.7 Neut % (Auto) 65.9 Lymph % (Auto) 14.5 L [place] % (Auto) 12.0 H Eos % (Auto) 7.1 H Baso % (Auto) 0.5 Neut # 8.6 H Lymph # 1.9 [place] # 1.6 H Eos # 0.9 H Baso # 0.1 Sodium 137 Potassium 4.8 Chloride 99 Carbon Dioxide 22 Anion Gap 21 H BUN 42 H Creatinine 6.6 H Est GFR ( Amer) 12 Est GFR (Non-Af Amer) 10 POC Glucose (mg/dL) 222 H Random Glucose 79 Calcium 8.2 L Phosphorus 4.1 Magnesium 2.0 Total Bilirubin 0.5 AST 20 ALT 28 Alkaline Phosphatase 102 Total Protein 6.8 Albumin 3.5 Globulin 3.3 Albumin/Globulin Ratio 1.0 11/16/16 11:48 WBC RBC Hgb Hct MCV MCH MCHC RDW Plt Count MPV Neut % (Auto) Lymph % (Auto) [place] % (Auto) Eos % (Auto) Baso % (Auto) Neut # Lymph # [place] # Eos # Baso # Sodium Potassium Chloride Carbon Dioxide Anion Gap BUN Creatinine Est GFR ( Amer) Est GFR (Non-Af Amer) POC Glucose (mg/dL) 297 H Random Glucose Calcium Phosphorus Magnesium Total Bilirubin AST ALT Alkaline Phosphatase Total Protein Albumin Globulin Albumin/Globulin Ratio Assessment & Plan - Assessment and Plan (Free Text) Assessment: 36 year old male with 1) left foot plantar ulceration 2) left foot cellulitis. Plan: Pt evaluated and treated with attending, Dr. Manuel present. Chart, labs, and vitals reviewed. Aseptic sharp debridement of all per-ulcerative hyperkeratoic and non viable soft tissue, down to level of health dermal tissue. Recommending post hemodialysis Vancomycin 500mg infusion for 2 weeks. Discussed source of symptoms and answered all patient questions to his satisfactions. Will follow up with Dr. Manuel on outpatient basis. - Date & Time Date: 11/16/16 Time: 12:00
--- NOTE | 2016-11-16 15:43 | VASCLAB ---
STUDY DESCRIPTION: HISTORY: PVD PRIORS: None. TECHNIQUE: Pulse volume recording waveforms and segmental pressures of bilateral lower extremities at multiple levels were obtained. Ankle Brachial Indices (ABIs) were calculated. Report prepared by LADI Flower, RVT RIGHT LOWER EXTREMITY: * Brachial artery: Pressure - 167 mmHg. * High thigh: Pressure - 212 mmHg: Ratio - 1.27: PVR waveform - Pulsatile * Low thigh: Pressure - 201 mmHg: Ratio - 1.20 PVR waveform: Pulsatile * Calf: Pressure - 180 mmHg: Ratio - 1.08 PVR waveform: Pulsatile * Posterior tibial Artery: Pressure - 150 mmHg: Ratio - 0.90 PVR waveform: Pulsatile * Dorsalis pedis Artery: Pressure - 165 mmHg: Ratio - 0.99 PVR waveform: Pulsatile * Great toe: Pressure - mmHg: Ratio - PVR waveform: Ankle brachial index (CINTIA): 0.99 LEFT LOWER EXTREMITY: * Brachial artery: Pressure - mmHg. * High thigh: Pressure - 218 mmHg: Ratio - 1.31: PVR waveform - Pulsatile * Low thigh: Pressure - 195 mmHg: Ratio - 1.17 PVR waveform: Pulsatile * Calf: Pressure - 168 mmHg: Ratio - 1.01 PVR waveform: Pulsatile * Posterior tibial Artery: Pressure - 142 mmHg: Ratio - 0.85 PVR waveform: Pulsatile * Dorsalis pedis Artery: Pressure - 129 mmHg: Ratio - 0.77 PVR waveform: Pulsatile * Great toe: Pressure - mmHg: Ratio - PVR waveform: Ankle brachial index (CINTIA): 0.85 OTHER FINDINGS: Right: Left: IMPRESSION: Right: There was no evidence of hemodynamically significant arterial insufficiency in the right lower extremity. Left: This exam reveals mildly decreased perfusion of the left lower extremity, noted at the superficial femoral, popliteal and tibial artery levels.
--- NOTE | 2016-11-18 11:43 | CARD ---
APPROVED REPORT EKG Measurement Heart [id number] <Conclusion> Sinus tachycardia Possible Left atrial enlargement Borderline ECG
== END 2016-11-16 14:59 | disposition home or self-care (01) | DRG 73 ==
LOC: C.ER 10:24 → C.9E 12:31 → C.5S 13:51
PROVIDERS: ADMIT Internal Medicine Pulmonary Disease; ATTEND Internal Medicine Pulmonary Disease
PROC: 5A1D90Z Performance of Urinary Filtration, Continuous, Greater than 18 hours Per Day (ICD-10-PCS; principal; 2016-11-12)
DX: E10.43 Type 1 diabetes mellitus with diabetic autonomic (poly)neuropathy (principal); N18.6 End stage renal disease; I13.2 Hypertensive heart and chronic kidney disease with heart failure and with stage 5 chronic kidney disease, or end stage renal disease; E10.22 Type 1 diabetes mellitus with diabetic chronic kidney disease; L03.116 Cellulitis of left lower limb; E10.621 Type 1 diabetes mellitus with foot ulcer; I50.30 Unspecified diastolic (congestive) heart failure; N25.81 Secondary hyperparathyroidism of renal origin; Z68.1 Body mass index [BMI] 19.9 or less, adult; I16.0 Hypertensive urgency; D64.9 Anemia, unspecified; K31.84 Gastroparesis; E83.39 Other disorders of phosphorus metabolism; E78.00 Pure hypercholesterolemia, unspecified; G89.29 Other chronic pain; H40.9 Unspecified glaucoma; L97.509 Non-pressure chronic ulcer of other part of unspecified foot with unspecified severity; Z79.4 Long term (current) use of insulin; F12.20 Cannabis dependence, uncomplicated; F17.210 Nicotine dependence, cigarettes, uncomplicated; Z99.2 Dependence on renal dialysis

== ENCOUNTER 2016-11-19 08:56 | Inpatient (IN) | payer MEDICARE ==
[2016-11-19 08:56] VITALS: BMI 27.0
[2016-11-19] MEDS ORDERED: Sodium Chloride 0.9% 250 ML IV ONE (09:26)
[2016-11-19] MEDS ORDERED: Labetalol 5 mg/ml Inj 20ML IV STA ×2 (09:35→10:50)
--- NOTE | 2016-11-19 09:42 | C.PDOC ---
History Of Present Illness Patient is a 36 year old male, with past medical history of ESRD with hemodialysis (Mon, Wed, Tue), presents to Emergency Department for evaluation of abdominal pain associated with several episodes of coffee ground-like emesis last night. Patient describes pain as sharp and constant in nature. Patient reports having endoscopy done recently but is unsure of results. Otherwise, denies diarrhea, melena, hematochezia, urinary symptoms, or fever. Time Seen by Provider: 11/19/16 09:19 Chief Complaint (Nursing): GI Problem History Per: Patient History/Exam Limitations: no limitations Onset/Duration Of Symptoms: Days (1), Persistent Current Symptoms Are (Timing): Still Present Quality Of Discomfort: "Pain" Associated Symptoms: Nausea, Vomiting, Coffee Ground material. denies: Diarrhea , Rectal Bleeding, Bloody Diarrhea, Melena, Lightheadedness Modifying Factors: None Recent travel outside of the [place]: No Additional History Per: Patient Past Medical History Reviewed: Historical Data, Nursing Documentation, Vital Signs Vital Signs: Last Vital Signs Temp 97.5 F L 11/19/16 08:57 Pulse 98 H 11/19/16 12:35 Resp 16 11/19/16 12:35 BP 185/87 H 11/19/16 12:35 Pulse Ox 94 L 11/19/16 12:35 - Medical History PMH: Anemia, CHF, Diabetes (type I), Gastritis, HTN, Hypercholesterolemia, Peripheral Edema, End Stage Renal Disease, Chronic Kidney Disease - [facility] Procedures (11/12/16) BYPASS LEFT BRACHIAL ARTERY TO UPPER ARM VEIN, OPEN APPROACH (02/17/16) DILATION OF LEFT BASILIC VEIN, PERCUTANEOUS APPROACH (11/06/16) EXCISION OF ASCENDING COLON, ENDO, DIAGN (12/19/15) EXCISION OF DESCENDING COLON, ENDO, DIAGN (10/22/16) EXCISION OF DUODENUM, ENDO, DIAGN (03/25/16) EXCISION OF LARGE INTESTINE, ENDO, DIAGN (05/06/16) EXCISION OF MIDDLE ESOPHAGUS, ENDO, DIAGN (03/25/16) EXCISION OF STOMACH, ENDO, DIAGN (10/22/16) EXCISION OF TRANSVERSE COLON, ENDO, DIAGN (05/06/16) INSERTION OF INFUSION DEV INTO SUP VENA CAVA, PERC APPROACH (12/19/15) PERFORMANCE OF URINARY FILTRATION, MULTIPLE (10/28/16) PERFORMANCE OF URINARY FILTRATION, SINGLE (11/06/16) REPOSITION LEFT BASILIC VEIN, OPEN APPROACH (05/25/16) ULTRASONOGRAPHY OF SUPERIOR VENA CAVA, GUIDANCE (12/19/15) Family History: States: Unknown Family Hx - Social History Hx Tobacco Use: Yes (some days) Hx Alcohol Use: No Hx Substance Use: Yes (marijuana 1 per day) - Immunization History Hx Tetanus Toxoid Vaccination: Yes Hx Influenza Vaccination: Yes Hx Pneumococcal Vaccination: Yes Review Of Systems Except As Marked, All Systems Reviewed And Found Negative. Constitutional: Negative for: Fever, Chills Cardiovascular: Negative for: Chest Pain, Palpitations, Light Headedness Respiratory: Negative for: Cough, Shortness of Breath Gastrointestinal: Positive for: Nausea, Vomiting (coffee ground like), Abdominal Pain. Negative for: Diarrhea, Constipation, Melena, Hematochezia Genitourinary: Negative for: Dysuria, Frequency, Hematuria Musculoskeletal: Negative for: Back Pain Neurological: Negative for: Headache, Dizziness Physical Exam - Physical Exam Appears: Non-toxic, No Acute Distress Skin: Warm, Dry, No Rash Head: Atraumatic, Normacephalic Eye(s): bilateral: Normal Inspection Oral Mucosa: Moist Neck: Supple Chest: Symmetrical Cardiovascular: Rhythm Regular, No Murmur Respiratory: Normal Breath Sounds, No Rales, No Rhonchi, No Wheezing Gastrointestinal/Abdominal: Soft, Tenderness (diffuse, most prominent in epigastric), No Guarding, No Rebound Back: No CVA Tenderness Extremity: Normal ROM, Other ((+) thrill to left arm AV fistula) Neurological/Psych: Oriented x3, Normal Speech ED Course And Treatment - Laboratory Results Result Diagrams: 11/19/16 09:36 11/19/16 09:36 ECG: Interpreted By Me, Viewed By Me ECG Rhythm: Sinus Tachycardia ECG Interpretation: Normal Interpretation Of ECG: Normal intervals, and axis. No acute ST/T wave changes. Rate From EC (bpm) O2 Sat by Pulse Oximetry: 98 (on RA) Pulse Ox Interpretation: Normal - CT Scan/US Abdomen/pelvis w/o contrast Other Rad Studies (CT/US): Interpreted By Me, Read By Radiologist CT/US Interpretation: PROCEDURE: CT Abdomen and Pelvis without Oral or IV contrast. HISTORY: abd pain. COMPARISON: CT abdomen and pelvis without contrast performed 10/28/16. TECHNIQUE: Contiguous axial images of the abdomen and pelvis. No oral or IV contrast administered. Coronal and Sagittal reformats generated and reviewed. Radiation dose: Total exam DLP = 357.06 mGy-cm. This CT exam was performed using one or more of the following dose reduction techniques: Automated exposure control, adjustment of the mA and/or kV according to patient size, and/or use of iterative reconstruction technique. FINDINGS: There is limited evaluation of the solid organs without the administration of IV contrast. LOWER THORAX: No visible consolidation, pleural effusion, or pneumothorax. LIVER: Unremarkable unenhanced appearance. GALLBLADDER AND BILE DUCTS: Unremarkable unenhanced appearance. PANCREAS: Unremarkable unenhanced appearance. SPLEEN: Unremarkable unenhanced appearance. ADRENALS: Unremarkable unenhanced appearance. KIDNEYS AND URETERS : No hydronephrosis or obstructing renal calculus. BLADDER: Mild urinary bladder wall thickening. REPRODUCTIVE: Unremarkable. APPENDIX: The appendix appears within normal limits of caliber. No secondary signs of acute appendicitis. BOWEL: The stomach is nondistended. Lack of oral contrast limits evaluation for bowel pathology. The bowel loops appear within normal limits of caliber without evidence of intestinal obstruction. PERITONEUM: No significant free fluid. No definite free air. LYMPH NODES: No bulky lymphadenopathy identified. VASCULATURE: Atherosclerotic calcifications of the aorta and branches. No aortic aneurysm. BONES: Chronic appearing posterior right 10th rib fracture deformity. Degenerative changes of the spine. OTHER FINDINGS: Bilateral gynecomastia. IMPRESSION: Examination limited by absence of oral and IV contrast as well as paucity of intra-abdominal and intrapelvic fat. Mild urinary bladder wall thickening. Recommend correlation with urinalysis. Additional incidental findings as above. Medical Decision Making Medical Decision Making: Blood work, UA, Abd & Pelvis CT, EKG ordered and reviewed. Patient was given IV fluids, Zofran IVP, Protonix inj, Labetalol IV, Insulin IV , and Morphine IVP. Case discussed with Dr. Chadwick who agrees upon telemetry admission for hypertension urgency, intractable vomiting, and upper GI bleed. Disposition - Disposition Disposition: HOSPITALIZED Disposition Time: 11:00 Condition: GUARDED - Clinical Impression Clinical Impression: Abdominal pain, Acute renal failure, Intractable abdominal pain, Uncontrolled hypertension, Upper GI bleeding, ESRD (end stage renal disease) on dialysis, Coffee ground emesis - Scribe Statement The provider has reviewed the documentation as recorded by the Js Dixon All medical record entries made by the Js were at my direction and personally dictated by me. I have reviewed the chart and agree that the record accurately reflects my personal performance of the history, physical exam, medical decision making, and the department course for this patient. I have also personally directed, reviewed, and agree with the discharge instructions and disposition. Decision To Admit - Pt Status Changed To: Hospital Disposition Of: Inpatient - Admit Certification Admit to Inpatient:: After my assessment, the patient will require hospitalization for at least two midnights. This is because of the severity of symptoms shown, intensity of services needed, and/or the medical risk in this patient being treated as an outpatient. - InPatient: Physician Admission Certification: I certify that this patient requires 2 or more midnights of care for the following reason:: gi bleed, uncontrolled htn, condition requires 2 or more days for admission - . Bed Request Type: Telemetry Admitting Physician: Lucero Chadwick Patient Diagnosis: Abdominal pain, Acute renal failure, Intractable abdominal pain, Uncontrolled hypertension, Upper GI bleeding, ESRD (end stage renal disease) on dialysis, Coffee ground emesis
[2016-11-19 09:45] LABS: BASO # 0.2 K/uL (0.0-0.2); EOS # 0.1 K/uL (0.0-0.7); EOS % 0.8 % (0.0-4.0); HEMATOCRIT 35.9 % (35.0-51.0); LYMPH # 0.8 K/uL (1.0-4.3); LYMPH % 4.9 % (20.0-40.0); MEAN CELL VOLUME 92.5 fL (80.0-94.0); MEAN CORPUSCULAR HEMOGLOBIN 28.7 pg (27.0-31.0); MEAN CORPUSCULAR HGB CONC 31.1 g/dL (33.0-37.0); MEAN PLATELET VOLUME 9.7 fL (7.2-11.7); MONO # 0.9 K/uL (0.0-0.8); MONO % 5.6 % (0.0-10.0); NRBC % 0.1 % (0.0-2.0); PLATELET COUNT 325 K/uL (130-400); RED CELL DISTRIBUTION WIDTH 17.8 % (11.5-14.5); WHITE BLOOD COUNT 15.6 K/uL (4.8-10.8)
[2016-11-19] MEDS ORDERED: Labetalol 25mg/5ml Syringe ONE ×2 (09:52→10:56)
[2016-11-19 09:55] LABS: POTASSIUM 5.7 mmol/L (3.6-5.2)
[2016-11-19 09:56] LABS: BILIRUBIN,TOTAL 0.7 mg/dL (0.2-1.3); CALCIUM 9.1 mg/dl (8.6-10.4); TOTAL PROTEIN 7.9 g/dL (6.3-8.3)
[2016-11-19] MEDS ORDERED: (Novolin R) Insulin Human Regular 100 units/ml vial IV STA (10:00)
[2016-11-19 10:08] LABS: TROPONIN I 0.045 ng/mL (0.00-0.120)
[2016-11-19 10:17] LABS: BASOPHIL 2 % (0-2); EOSINOPHIL 2 % (0-4); NEUTROPHIL 82 % (50-75); TOTAL CELLS COUNTED 100
--- NOTE | 2016-11-19 10:33 | CT ---
PROCEDURE: CT Abdomen and Pelvis without Oral or IV contrast. HISTORY: abd pain COMPARISON: CT abdomen and pelvis without contrast performed 10/28/16 TECHNIQUE: Contiguous axial images of the abdomen and pelvis. No oral or IV contrast administered. Coronal and Sagittal reformats generated and reviewed. Radiation dose: Total exam DLP = 357.06 mGy-cm. This CT exam was performed using one or more of the following dose reduction techniques: Automated exposure control, adjustment of the mA and/or kV according to patient size, and/or use of iterative reconstruction technique. FINDINGS: There is limited evaluation of the solid organs without the administration of IV contrast. LOWER THORAX: No visible consolidation, pleural effusion, or pneumothorax. LIVER: Unremarkable unenhanced appearance. GALLBLADDER AND BILE DUCTS: Unremarkable unenhanced appearance. PANCREAS: Unremarkable unenhanced appearance. SPLEEN: Unremarkable unenhanced appearance. ADRENALS: Unremarkable unenhanced appearance. KIDNEYS AND URETERS: No hydronephrosis or obstructing renal calculus. BLADDER: Mild urinary bladder wall thickening. REPRODUCTIVE: Unremarkable. APPENDIX: The appendix appears within normal limits of caliber. No secondary signs of acute appendicitis. BOWEL: The stomach is nondistended. Lack of oral contrast limits evaluation for bowel pathology. The bowel loops appear within normal limits of caliber without evidence of intestinal obstruction. PERITONEUM: No significant free fluid. No definite free air. LYMPH NODES: No bulky lymphadenopathy identified. VASCULATURE: Atherosclerotic calcifications of the aorta and branches. No aortic aneurysm. BONES: Chronic appearing posterior right 10th rib fracture deformity. Degenerative changes of the spine. OTHER FINDINGS: Bilateral gynecomastia. IMPRESSION: Examination limited by absence of oral and IV contrast as well as paucity of intra-abdominal and intrapelvic fat. Mild urinary bladder wall thickening. Recommend correlation with urinalysis. Additional incidental findings as above.
[2016-11-19] MEDS ORDERED: (Novolin R) Insulin Human Regular 100 units/ml vial ONE (10:35)
[2016-11-19] MEDS ORDERED: Morphine 4 MG/ML VIAL IV STA (10:51)
[2016-11-19] MEDS ORDERED: Morphine 4 MG/ML VIAL ONE (10:55)
--- NOTE | 2016-11-19 12:06 | CP.PCM.CON ---
History of Present Illness - History of Present Illness History of Present Illness: Initial Nephrology Consultation Note Assessment: critical recurrent nausea/vomitting, cyclic emesis syndrome, marijuana abuse, gastroparesis Diabetic chronic Kidney Disease (E11.22) Hypertensive Chronic Kidney Disease (I12.0) with HTN urgency End stage renal disease (N18.6) dependence on hemodialysis (Z99.2) (MWF) via AVF Anemia (D64.9), Hyperphosphatemia (E83.39), Secondary Hyperparathyroidism (E21.1 ), HTN (I12.0) Plan: dialysis today as ordered. Continue with Nephrovite 1 tab/day. PRBC as needed for anemia. On MOHINI as epogen Continue with phos binders BP control with meds as ordered. Patient on RAAS lola as losartan Glycemic control, Dialysis consistent diet Further work up/management as per primary team Dose meds/antibiotics (if needed) for ESRD status. Avoid fleets enema/magnesium based laxatives. continue with premeal reglan 5 mg and PPI. pt counselled to abstain from marijuana Thanks for allowing me to participate in care of your patient. Will follow patient with you. Please call if any Qs Dr Brenton Larsen Office: [phone] Chief Complaint; nausea/vomiting Reason for consult; ESRD, HTN HPI: Pt is a 36 y/o M with hx of ESRD on hemodialysis (MWF) via AVF, last dialysis wed, chronic anemia, hyperphosphatemia, secondary hyperparathyroidism, Diabetes Mellitus, hypertension, recurrent nausea/vomiting and multiple hospitalization for same came back with nausea/vomitting. continue to smoke marijuana Denies chest pain, palpitation, shortness of breath, he c/o leg swelling ROS: Constitutional Symptoms: Denies fever. No chills. No Recent Weight Changes Eyes: denies change in vision, denies watery eyes, denies double vision Ears/Nose/Mouth/Throat: Denies Abnormal Taste. No Bad breath or Bad Taste. Cardiovascular: No chest pain. There is no shortness of breath. No palpitations. Pulmonary: No shortness of breath or cough. Gastrointestinal: c/o abdominal pain now c/o nausea. c/o vomiting. Denies change in bowel habits. Denies Bleeding Genitourinary: makes urine. No associated pain or blood. has aguilar Neurological: Denies headaches. No dizziness. Denies loss of balance. Denies weakness, denies tingling/numbness Dermatological: No Rash or Bruising or ulcers. Psychiatric: Denies Anxiety. No depression. Denies hallucinations. Rheumatological: No joint pain. Denies Joint swelling Endocrine: Denies over tiredness. Denies Fatigue and denies Heat/Cold Intolerance. All other negative. Physical Examination: General Appearance: Comfortable, in no acute respiratory distress, co-operative . Vitals reviewed and noted as below Head; Atraumatic, normocephalic ENT: no ulcers no thrush. Tongue is midline. Oropharynx: no rash or ulcers. EYES: Pupils are equal, round and reactive to light accommodation. Eye muscles and extraocular movement intact. Sclera is anicteric. Neck; supple no lymphadenopathy, no thyromegaly or bruit Lungs: Normal respiratory rate/effort. Breath sounds bilateral equal and clear Heart: Normal rate. s1s2 normal. No rub or gallop. Extremities: 1+ edema. No varicose veins Neurological: Patient is alert, awake and oriented to person, place and time. No focal deficit. Strength bilateral appropriate and equal Skin: Warm and dry. Normal turgor. No rash. Palpitation: Normal elasticity for age Abdomen: Abdomen is soft. Bowel sounds +. There is epigastric abdominal tenderness, no guarding/rigidity or organomegaly Psych: normal insight and normal affect/mood MSK: no joint tenderness or swelling. Digits and nails normal, no deformity. had toe amputations : kidney or bladder not palpable. Access: AVF Labs/imaging reviewed. Past medical history, past surgical history, family history, social history, allergy reviewed and noted as below Family Hx: no hx of CKD. Non contributory Past Patient History - Infectious Disease Hx of Infectious Diseases: None - Past Medical History & Family History Past Medical History?: Yes - Past Social History Smoking Status: Never Smoked - CARDIAC Hx Congestive Heart Failure: Yes Hx Hypercholesterolemia: Yes Hx Hypertension: Yes Hx Peripheral Edema: Yes - PULMONARY Hx Respiratory Disorders: No - NEUROLOGICAL Hx Neurological Disorder: Yes Other/Comment: Bilateral leg neuropathy - HEENT Hx HEENT Problems: Yes Hx Cataracts: Yes Other/Comment: cataract surgery [facility] 10 years ago - RENAL Hx Chronic Kidney Disease: Yes - ENDOCRINE/METABOLIC Hx Diabetes Mellitus Type 2: Yes - HEMATOLOGICAL/ONCOLOGICAL Hx Anemia: Yes - INTEGUMENTARY Hx Dermatological Problems: No - MUSCULOSKELETAL/RHEUMATOLOGICAL Hx Falls: Yes - GASTROINTESTINAL Hx Gastritis: Yes - GENITOURINARY/GYNECOLOGICAL Hx Genitourinary Disorders: No - PSYCHIATRIC Hx Substance Use: Yes (marijuana 1 per day) - SURGICAL HISTORY Hx Surgeries: Yes Hx Vascular Access Device: Yes Other/Comment: RT.PERMACATH INSERTION 12/30. LT.AV SHUNT CREATION 02/17/16. UNDESCENDED TESTES LT. REMOVED DURING CHILDHOOD - ANESTHESIA Hx Anesthesia: Yes Hx Anesthesia Reactions: No Hx Malignant Hyperthermia: No Meds Allergies/Adverse Reactions: Allergies Allergy/AdvReac Type Severity Reaction Status Date / Time No Known Allergies Allergy Verified 11/12/16 10:45 Results - Vital Signs Recent Vital Signs: Last Vital Signs Temp 97.5 F L 11/19/16 08:57 Pulse 100 H 11/19/16 11:08 Resp 20 11/19/16 11:08 BP 211/98 H 11/19/16 11:08 Pulse Ox 100 11/19/16 11:08 - Labs Result Diagrams: 11/19/16 09:36 11/19/16 09:36 Labs: Laboratory Results - last 24 hr 11/19/16 11/19/16 11/19/16 09:06 09:36 09:36 WBC 15.6 H RBC 3.88 L Hgb 11.2 L Hct 35.9 MCV 92.5 MCH 28.7 MCHC 31.1 L RDW 17.8 H Plt Count 325 MPV 9.7 Neut % (Auto) 87.7 H Lymph % (Auto) 4.9 L [place] % (Auto) 5.6 Eos % (Auto) 0.8 Baso % (Auto) 1.0 Neut # 13.7 H Lymph # 0.8 L [place] # 0.9 H Eos # 0.1 Baso # 0.2 Neutrophils % (Manual) 82 H Band Neutrophils % 1 Lymphocytes % (Manual) 7 L Monocytes % (Manual) 6 Eosinophils % (Manual) 2 Basophils % (Manual) 2 Platelet Estimate Normal Basophilic Stippling Slight Anisocytosis (manual) Slight PT INR APTT Sodium 132 Potassium 5.7 H Chloride 94 L Carbon Dioxide 20 L Anion Gap 24 H BUN 62 H Creatinine 6.6 H Est GFR ( Amer) 12 Est GFR (Non-Af Amer) 10 POC Glucose (mg/dL) 389 H Random Glucose 418 H* D Calcium 9.1 Total Bilirubin 0.7 AST 24 ALT 27 Alkaline Phosphatase 135 H D Troponin I 0.0450 Total Protein 7.9 Albumin 4.0 Globulin 3.9 Albumin/Globulin Ratio 1.0 Lipase 121 11/19/16 09:36 WBC RBC Hgb Hct MCV MCH MCHC RDW Plt Count MPV Neut % (Auto) Lymph % (Auto) [place] % (Auto) Eos % (Auto) Baso % (Auto) Neut # Lymph # [place] # Eos # Baso # Neutrophils % (Manual) Band Neutrophils % Lymphocytes % (Manual) Monocytes % (Manual) Eosinophils % (Manual) Basophils % (Manual) Platelet Estimate Basophilic Stippling Anisocytosis (manual) PT 10.8 INR 1.0 APTT 30 Sodium Potassium Chloride Carbon Dioxide Anion Gap BUN Creatinine Est GFR ( Amer) Est GFR (Non-Af Amer) POC Glucose (mg/dL) Random Glucose Calcium Total Bilirubin AST ALT Alkaline Phosphatase Troponin I Total Protein Albumin Globulin Albumin/Globulin Ratio Lipase
--- NOTE | 2016-11-19 12:11 | CP.PCM.PN ---
Subjective - Date & Time of Evaluation Date of Evaluation: 11/19/16 Time of Evaluation: 12:08 - Subjective Subjective: Patient is a 36 year old male with history of diabetes, HTN, ESRD on HD MWF who presents to the hospital with complaint of abdominal pain, nausea, and vomiting. Patient was recently discharged after evaluation for similar complaints. Per patient, he states last evening he became nauseous and vomited. Patient reports vomiting 10+ times in over the past 12 hours. He began to develop bilateral lower abdominal cramping and pain which is when he decided to come to the ED. He states the vomiting was originally yellow-green with food particles, which became coffee ground emesis at the hospital which was witness by the photographic equipment technician. EGD/colonoscopy performed 10/[address] Armstrong, showed reflux esophagitis with erythematous duodenopathy and external/internal hemorrhoids, respectively. Pathology was negative for H. pylori from EGD stomach antrum specimen and colonoscopy pathology specimen was negative for colitis. Patient admits he did not take any medication prescribed for him at discharge because insurance would not cover the cost. Patient states he was tolerating full diet at home before he became ill yesterday. He denies hematochezia, dizziness, SOB, Chest pain, confusion, or palpitations. PMHx: CHF diastolic with preserved EF, HTN, HLD, edema, neuropathy, ESRD, DM2, DM gastroparesis, GERD Meds: reviewed in chart NKDA PSHx: Left AVF, colonoscopy/EGD (10/26/16), orchiectomy SHx: (+) tobacco, marijuana use. denies EtOH use; extremely dependent on his mother; legally blind FHx: noncontributory Objective - Vital Signs/Intake and Output Vital Signs (last 24 hours): Temp Pulse Resp BP Pulse Ox 97.5 F L 100 H 20 211/98 H 100 11/19/16 08:57 11/19/16 11:08 11/19/16 11:08 11/19/16 11:08 11/19/16 11:08 - Labs Labs: 11/19/16 09:36 11/19/16 09:36 PT 10.8 SECONDS (9.7-12.2) 11/19/16 09:36 INR 1.0 11/19/16 09:36 APTT 30 SECONDS (21-34) 11/19/16 09:36 - Additional Findings Additional findings: - Constitutional Appears: No Acute Distress, Chronically Ill - Head Exam Head Exam: ATRAUMATIC, NORMOCEPHALIC - Eye Exam Eye Exam: EOMI - ENT Exam ENT Exam: Mucous Membranes Moist - Respiratory Exam Respiratory Exam: Clear to Ausculation Bilateral, Respiratory Distress. absent : Rales, Rhonchi, Wheezes - Cardiovascular Exam Cardiovascular Exam: +S1, +S2 - GI/Abdominal Exam GI & Abdominal Exam: Soft, Hypoactive Bowel Sounds, tender (diffuse) - Rectal exam performed at bedside - negative for acute blood in rectal vault, hemoccult negative at bedside, external hemorrhoids noted on exam - Extremities Exam Extremities Exam: absent: Pedal Edema Additional comments: left arm AV fistula with palpable thrill darkened skin to lower extremities - Neurological Exam Neurological Exam: Alert, Awake - Psychiatric Exam Psychiatric exam: Normal Affect - Skin Skin Exam: Dry, Warm Assessment and Plan - Assessment and Plan (Free Text) Plan: GI Bleed - Witnessed cough ground emesis - Clinic Director, Dr. Armstrong, consulted - recommend NPO, Reglan for DM gastroparesis - Morphine 1 mg IVP stat for abdominal pain given in ED - Monitor H&H, Blood type and screen, type and cross - Timed CBC q6H CT abdomen/pelvis (11/19/16): Examination limited by absence of oral and IV contrast as well as paucity of intra-abdominal/pelvic fat. Mild urinary bladder wall thickening. Correlate with urinalysis. No evidence of intestinal obstruction. (see full report) Protonix 40mg IV BID Reglan 5mg IV Q6H (renally dosed) Morphine 1mg IV Q6H PRN Hypertension - 244/147 on admission Patients BP uncontrolled PRN Hydralazine for SBP over 180/95 HOLD home medications: Clonidine HCl (Catapres) 0.3 mg PO TID GADIEL Hydralazine HCl (Apresoline) 50 mg PO Q8H [facility] Losartan Potassium (Cozaar) 50 mg PO DAILY [facility] amlodipine (norvasc) 10mg PO daily T2DM -last A1C on last admission last week 10.6 -glucose 400+ on admission, anion gap elevated - AB.45 pH, non-acidotic (not in DKA) - f/u UA for serum ketones, f/u Beta-hydroxybutyric acid -RISS and accuchecks patient was not taking insulin as prescribed at home Hold home dosing as pt NPO: -Lantus 40 units SC HS -Aspart 14 units AC GADIEL Chronic Kidney Disease on HD Nephrology Consult, Dr. Larsen HD MWF - Pt for dialysis today - f/u reccs Leukocytosis WBC 15.6 on admission, will continue to monitor DM neuropathy HOLD Gabapentin 300mg PO Daily as pt NPO Prophylaxis NPO diet Contraindication for VTE ppx due to GI bleed Protonix Inj 40 mg IVP Q12H GADIEL SCDs patient encouraged to discontinue marijuana use Ang Dozier PGY-2 All medical management as per Dr. Chadwick
--- NOTE | 2016-11-19 12:14 | CP.PCM.CON ---
History of Present Illness - History of Present Illness History of Present Illness: Initial Nephrology Consultation Note Assessment: critical recurrent nausea/vomitting, cyclic emesis syndrome, marijuana abuse, gastroparesis Diabetic chronic Kidney Disease (E11.22) Hypertensive Chronic Kidney Disease (I12.0) with HTN urgency End stage renal disease (N18.6) dependence on hemodialysis (Z99.2) (MWF) via AVF Anemia (D64.9), Hyperphosphatemia (E83.39), Secondary Hyperparathyroidism (E21.1 ), HTN (I12.0) Plan: dialysis today as ordered. Continue with Nephrovite 1 tab/day. PRBC as needed for anemia. On MOHINI as epogen Continue with phos binders BP control with meds as ordered. Patient on RAAS lola as losartan Glycemic control, Dialysis consistent diet Further work up/management as per primary team Dose meds/antibiotics (if needed) for ESRD status. Avoid fleets enema/magnesium based laxatives. continue with premeal reglan 5 mg and PPI. pt counselled to abstain from marijuana Thanks for allowing me to participate in care of your patient. Will follow patient with you. Please call if any Qs Dr Brenton Larsen Office: [phone] Chief Complaint; nausea/vomiting Reason for consult; ESRD, HTN HPI: Pt is a 36 y/o M with hx of ESRD on hemodialysis (MWF) via AVF, last dialysis wed, chronic anemia, hyperphosphatemia, secondary hyperparathyroidism, Diabetes Mellitus, hypertension, recurrent nausea/vomiting and multiple hospitalization for same came back with nausea/vomitting. continue to smoke marijuana Denies chest pain, palpitation, shortness of breath, he c/o leg swelling ROS: Constitutional Symptoms: Denies fever. No chills. No Recent Weight Changes Eyes: denies change in vision, denies watery eyes, denies double vision Ears/Nose/Mouth/Throat: Denies Abnormal Taste. No Bad breath or Bad Taste. Cardiovascular: No chest pain. There is no shortness of breath. No palpitations. Pulmonary: No shortness of breath or cough. Gastrointestinal: c/o abdominal pain now c/o nausea. c/o vomiting. Denies change in bowel habits. Denies Bleeding Genitourinary: makes urine. No associated pain or blood. Neurological: Denies headaches. No dizziness. Denies loss of balance. Denies weakness, denies tingling/numbness Dermatological: No Rash or Bruising or ulcers. Psychiatric: Denies Anxiety. No depression. Denies hallucinations. Rheumatological: No joint pain. Denies Joint swelling Endocrine: Denies over tiredness. Denies Fatigue and denies Heat/Cold Intolerance. All other negative. Physical Examination: General Appearance: Comfortable, in no acute respiratory distress, co-operative . Vitals reviewed and noted as below Head; Atraumatic, normocephalic ENT: no ulcers no thrush. Tongue is midline. Oropharynx: no rash or ulcers. EYES: Pupils are equal, round and reactive to light accommodation. Eye muscles and extraocular movement intact. Sclera is anicteric. Neck; supple no lymphadenopathy, no thyromegaly or bruit Lungs: Normal respiratory rate/effort. Breath sounds bilateral equal and clear Heart: Normal rate. s1s2 normal. No rub or gallop. Extremities: 1+ edema. No varicose veins Neurological: Patient is alert, awake and oriented to person, place and time. No focal deficit. Strength bilateral appropriate and equal Skin: Warm and dry. Normal turgor. No rash. Palpitation: Normal elasticity for age Abdomen: Abdomen is soft. Bowel sounds +. There is epigastric abdominal tenderness, no guarding/rigidity or organomegaly Psych: normal insight and normal affect/mood MSK: no joint tenderness or swelling. Digits and nails normal, no deformity. : kidney or bladder not palpable. Access: AVF Labs/imaging reviewed. Past medical history, past surgical history, family history, social history, allergy reviewed and noted as below Family Hx: no hx of CKD. Non contributory Past Patient History - Infectious Disease Hx of Infectious Diseases: None - Past Medical History & Family History Past Medical History?: Yes - Past Social History Smoking Status: Never Smoked - CARDIAC Hx Congestive Heart Failure: Yes Hx Hypercholesterolemia: Yes Hx Hypertension: Yes Hx Peripheral Edema: Yes - PULMONARY Hx Respiratory Disorders: No - NEUROLOGICAL Hx Neurological Disorder: Yes Other/Comment: Bilateral leg neuropathy - HEENT Hx HEENT Problems: Yes Hx Cataracts: Yes Other/Comment: cataract surgery [facility] 10 years ago - RENAL Hx Chronic Kidney Disease: Yes - ENDOCRINE/METABOLIC Hx Diabetes Mellitus Type 2: Yes - HEMATOLOGICAL/ONCOLOGICAL Hx Anemia: Yes - INTEGUMENTARY Hx Dermatological Problems: No - MUSCULOSKELETAL/RHEUMATOLOGICAL Hx Falls: Yes - GASTROINTESTINAL Hx Gastritis: Yes - GENITOURINARY/GYNECOLOGICAL Hx Genitourinary Disorders: No - PSYCHIATRIC Hx Substance Use: Yes (marijuana 1 per day) - SURGICAL HISTORY Hx Surgeries: Yes Hx Vascular Access Device: Yes Other/Comment: RT.PERMACATH INSERTION 12/30. LT.AV SHUNT CREATION 02/17/16. UNDESCENDED TESTES LT. REMOVED DURING CHILDHOOD - ANESTHESIA Hx Anesthesia: Yes Hx Anesthesia Reactions: No Hx Malignant Hyperthermia: No Meds Allergies/Adverse Reactions: Allergies Allergy/AdvReac Type Severity Reaction Status Date / Time No Known Allergies Allergy Verified 11/12/16 10:45 Results - Vital Signs Recent Vital Signs: Last Vital Signs Temp 97.5 F L 11/19/16 08:57 Pulse 100 H 11/19/16 11:08 Resp 20 11/19/16 11:08 BP 211/98 H 11/19/16 11:08 Pulse Ox 100 11/19/16 11:08 - Labs Result Diagrams: 11/19/16 09:36 11/19/16 09:36 Labs: Laboratory Results - last 24 hr 11/19/16 11/19/16 11/19/16 09:06 09:36 09:36 WBC 15.6 H RBC 3.88 L Hgb 11.2 L Hct 35.9 MCV 92.5 MCH 28.7 MCHC 31.1 L RDW 17.8 H Plt Count 325 MPV 9.7 Neut % (Auto) 87.7 H Lymph % (Auto) 4.9 L [place] % (Auto) 5.6 Eos % (Auto) 0.8 Baso % (Auto) 1.0 Neut # 13.7 H Lymph # 0.8 L [place] # 0.9 H Eos # 0.1 Baso # 0.2 Neutrophils % (Manual) 82 H Band Neutrophils % 1 Lymphocytes % (Manual) 7 L Monocytes % (Manual) 6 Eosinophils % (Manual) 2 Basophils % (Manual) 2 Platelet Estimate Normal Basophilic Stippling Slight Anisocytosis (manual) Slight PT INR APTT Sodium 132 Potassium 5.7 H Chloride 94 L Carbon Dioxide 20 L Anion Gap 24 H BUN 62 H Creatinine 6.6 H Est GFR ( Amer) 12 Est GFR (Non-Af Amer) 10 POC Glucose (mg/dL) 389 H Random Glucose 418 H* D Calcium 9.1 Total Bilirubin 0.7 AST 24 ALT 27 Alkaline Phosphatase 135 H D Troponin I 0.0450 Total Protein 7.9 Albumin 4.0 Globulin 3.9 Albumin/Globulin Ratio 1.0 Lipase 121 11/19/16 09:36 WBC RBC Hgb Hct MCV MCH MCHC RDW Plt Count MPV Neut % (Auto) Lymph % (Auto) [place] % (Auto) Eos % (Auto) Baso % (Auto) Neut # Lymph # [place] # Eos # Baso # Neutrophils % (Manual) Band Neutrophils % Lymphocytes % (Manual) Monocytes % (Manual) Eosinophils % (Manual) Basophils % (Manual) Platelet Estimate Basophilic Stippling Anisocytosis (manual) PT 10.8 INR 1.0 APTT 30 Sodium Potassium Chloride Carbon Dioxide Anion Gap BUN Creatinine Est GFR ( Amer) Est GFR (Non-Af Amer) POC Glucose (mg/dL) Random Glucose Calcium Total Bilirubin AST ALT Alkaline Phosphatase Troponin I Total Protein Albumin Globulin Albumin/Globulin Ratio Lipase
[2016-11-19] MEDS ORDERED: Sodium Chloride 0.9% 1,000 ML IV SCH (13:00)
[2016-11-19] MEDS: (Novolin R) Insulin Human Regular 100 units/ml vial SC SCH ×2 (16:35→22:04)
[2016-11-19 17:15] LABS: HEMATOCRIT 33.9 % (35.0-51.0); MEAN CELL VOLUME 90.2 fL (80.0-94.0); MEAN CORPUSCULAR HEMOGLOBIN 28.7 pg (27.0-31.0); MEAN CORPUSCULAR HGB CONC 31.8 g/dL (33.0-37.0); MEAN PLATELET VOLUME 8.8 fL (7.2-11.7); RED CELL DISTRIBUTION WIDTH 18.1 % (11.5-14.5); WHITE BLOOD COUNT 15.8 K/uL (4.8-10.8)
[2016-11-19 17:24] LABS: ABG ALLEN TEST POS; ARTERIAL BLOOD HGB O2 SAT 91.4 % (95.0-98.0); CARBOXYHEMOGLOBIN 4.2 % (0.5-1.5); DRAW SITE RRA; HHB 2.8 % (0.0-5.0); METHEMOGLOBIN 1.6 % (0.0-3.0)
[2016-11-19 20:16] LABS: POTASSIUM 4.2 mmol/L (3.6-5.2)
[2016-11-19 20:20] LABS: CALCIUM 8.7 mg/dl (8.6-10.4)
[2016-11-19] MEDS: (Lantus) Insulin Glargine, Recombinant SC SCH (21:20)
[2016-11-20] MEDS ORDERED: (Novolog) Insulin Aspart, Recombinant 100 u/ml 10 ml vial SC SCH (07:30)
[2016-11-20 07:38] LABS: BASO # 0.2 K/uL (0.0-0.2); BASO % 1.5 % (0.0-2.0); EOS # 0.2 K/uL (0.0-0.7); EOS % 1.5 % (0.0-4.0); HEMATOCRIT 35.2 % (35.0-51.0); LYMPH # 1.4 K/uL (1.0-4.3); LYMPH % 12.3 % (20.0-40.0); MEAN CELL VOLUME 91.9 fL (80.0-94.0); MEAN CORPUSCULAR HEMOGLOBIN 29.1 pg (27.0-31.0); MEAN CORPUSCULAR HGB CONC 31.7 g/dL (33.0-37.0); MEAN PLATELET VOLUME 9.1 fL (7.2-11.7); MONO # 1.4 K/uL (0.0-0.8); NRBC % 0.3 % (0.0-2.0); RED CELL DISTRIBUTION WIDTH 18.5 % (11.5-14.5); WHITE BLOOD COUNT 11.6 K/uL (4.8-10.8)
[2016-11-20 07:54] LABS: POTASSIUM 5.3 mmol/L (3.6-5.2)
[2016-11-20 07:56] LABS: BILIRUBIN,TOTAL 0.6 mg/dL (0.2-1.3); TOTAL PROTEIN 7.1 g/dL (6.3-8.3)
[2016-11-20 07:57] LABS: CALCIUM 8.7 mg/dl (8.6-10.4); MAGNESIUM 1.9 mg/dL (1.6-2.3); PHOSPHOROUS 6.1 mg/dL (2.5-4.5)
[2016-11-20] MEDS: (Novolin R) Insulin Human Regular 100 units/ml vial SC SCH ×4 (08:44→22:14)
[2016-11-20] MEDS: (Novolin N) Insulin Human Isophane (NPH) 100 u/ml 10 ml vial SC SCH (08:45)
[2016-11-20] MEDS: Multivitamin Vitamin B Complex (Nephro-Vite) Tab PO SCH (08:47)
--- NOTE | 2016-11-20 12:37 | CP.PCM.PN ---
Subjective - Date & Time of Evaluation Date of Evaluation: 11/20/16 Time of Evaluation: 10:10 - Subjective Subjective: seen and examined says no emesis today pe: vss gen: nad sclera: anicteric op: clear neck: supple cv: +S1+s2 lungs: cta abd: soft ext: no edema neuro: A+OX3 psych: normal affect skin: no rash imp: recurrent nausea/vomitting, cyclic emesis syndrome, marijuana abuse, gastroparesis Diabetic chronic Kidney Disease (E11.22) Hypertensive Chronic Kidney Disease (I12.0) with HTN urgency End stage renal disease (N18.6) dependence on hemodialysis (Z99.2) (MWF) via AVF Anemia (D64.9), Hyperphosphatemia (E83.39), Secondary Hyperparathyroidism (E21.1 ), HTN (I12.0) Plan: s/p HD yesterday and continue MWF Continue with Nephrovite 1 tab/day. On MOHINI renvela started consider b-lola for tachy/hypertension Objective - Vital Signs/Intake and Output Vital Signs (last 24 hours): Temp Pulse Resp BP Pulse Ox 98.9 F 104 H 18 162/78 H 97 11/20/16 07:25 11/20/16 07:50 11/20/16 07:25 11/20/16 07:25 11/20/16 07:25 Intake and Output: 11/20/16 11/20/16 06:59 18:59 Intake Total 410 Balance 410 - Medications Medications: Current Medications Amlodipine Besylate (Norvasc) 10 mg PO DAILY [facility] Last Admin: 11/20/16 10:12 Dose: 10 mg Aspirin (Ecotrin) 81 mg PO DAILY [facility] Last Admin: 11/20/16 10:12 Dose: 81 mg Clonidine HCl (Catapres) 0.3 mg PO TID [facility] Last Admin: 11/20/16 10:12 Dose: 0.3 mg Epoetin Oumar (Procrit) 3,000 unit SC [facility] Gabapentin (Neurontin) 300 mg PO DAILY [facility] Last Admin: 11/20/16 10:12 Dose: 300 mg Hydralazine HCl (Apresoline) 10 mg IVP Q6H PRN PRN Reason: Systolic Blood Pressure Last Admin: 11/19/16 19:34 Dose: 10 mg Hydralazine HCl (Apresoline) 100 mg PO Q8 [facility] Last Admin: 11/20/16 05:14 Dose: 100 mg Insulin Glargine (Lantus) 40 unit SC HS [facility] Last Admin: 11/19/16 21:20 Dose: Not Given Insulin Human NPH (Novolin N) 14 unit SC DAILY@0730 [facility] Last Admin: 11/20/16 08:45 Dose: 14 unit Insulin Human Regular (Novolin R) 0 unit SC ACHS [facility] PRN Reason: Protocol Last Admin: 11/20/16 12:13 Dose: Not Given Ketorolac Tromethamine (Toradol) 30 mg IVP Q8 PRN PRN Reason: Pain, moderate (4-7) Losartan Potassium (Cozaar) 50 mg PO DAILY [facility] Last Admin: 11/20/16 10:12 Dose: 50 mg Metoclopramide HCl (Reglan) 5 mg IVP Q6H PRN PRN Reason: Nausea/Vomiting Last Admin: 11/20/16 10:16 Dose: 5 mg Ondansetron HCl (Zofran Inj) 4 mg IVP Q8 PRN PRN Reason: Nausea/Vomiting Last Admin: 11/20/16 05:15 Dose: 4 mg Pantoprazole Sodium (Protonix Inj) 40 mg IVP Q12H [facility] Last Admin: 11/20/16 08:44 Dose: 40 mg Vitamin B Complex/Vit C/Folic Acid (Nephro-[place]omi) 1 tab PO 0800 [facility] Last Admin: 11/20/16 08:47 Dose: 1 tab - Labs Labs: 11/20/16 07:20 11/20/16 07:20 PT 10.8 SECONDS (9.7-12.2) 11/19/16 09:36 INR 1.0 11/19/16 09:36 APTT 30 SECONDS (21-34) 11/19/16 09:36
[2016-11-20 14:19] LABS: AMYLASE 84 U/L (30-110)
[2016-11-20] MEDS: Sevelamer Carb 2.4 gm/Packet PO SCH (17:52)
--- NOTE | 2016-11-20 21:13 | PN ---
DATE: LOCATION: Room 662, bed B. SUBJECTIVE: This is a 36-year-old male seen for GI consultation at the request by the admitting MD on 11/19/2016 due to recurrent episode of nausea, vomiting, and hematemesis with coffee-ground material and trace of fresh blood, was seen again today in the presence of this episode of nausea and vomiting but clean coffee-ground material is hematemesis. The entire chart is reviewed including, but not limited to the most recent lab and radiology study results, current and previous medication list, current and previous medical events and the CAT scan of the abdomen and pelvis report is seen. Today's result showed white blood cells of 11.6 with a low hemoglobin of 11.2 with normal hematocrit with normal platelet count as well as low sodium 130, increased potassium to 5.3 with increased BUN 33, creatinine 4.9, blood glucose level 329, but normal liver function test with elevated phosphorus 6.1. PHYSICAL EXAMINATION: GENERAL: A 36-year-old male, awake, alert, and oriented. VITAL SIGNS: Afebrile with pulse of 104, respiratory rate 20-22, blood pressure up to 160/74. HEENT: Showed pale, dry oral mucous membrane. Nonicteric sclerae. HEART: Positive S1 and S2 with increased rate. LUNGS: Few scattered crepitation. Decreased air entry at bases. ABDOMEN: Soft. Bowel sounds are hyperactive with generalized tenderness and mild distention. No mass or organomegaly. No rebound tenderness or guarding. RECTAL: Soft tone, guaiac-positive stool. EXTREMITIES: Without significant clubbing or cyanosis, but with mild edematous changes. NEUROLOGICAL: No reported new neurological deficits, sensory or motor. IMPRESSION: 1. Recurrent episode of gastrointestinal bleeding of unclear etiology, to rule out bleeding Mera-Buitrago tear, to rule out bleeding gastric versus duodenal ulcer. 2. Has to be mentioned that the last time the patient had upper endoscopy was about 4 weeks ago, report is seen. 3. Poorly controlled diabetes mellitus with diabetic gastroparesis. 4. End-stage renal disease, on hemodialysis. 5. Known history of but not limited to congestive heart failure with hypertension and hyperlipidemia. 6. Known history of ____ syndrome. 7. Anemia secondary to above was reported, recent gastrointestinal blood loss. 8. Electrolyte imbalance secondary to above. SUGGESTIONS: 1. Agree with your plan. 2. Serum lipase and amylase level to rule out recent acute episode of acute pancreatitis. 3. Abdominal ultrasound. 4. Endoscopic evaluation of the GI tract when the patient is more stable clinically to rule out bleeding Mera-Buitrago tear. 5. Reglan IV. 6. If the patient still has episodes of nausea and vomiting, then erythromycin IV to be added after increase the dose of Reglan up to 15 or 20 mg IV push q. 6 hours. 7. Further recommendations to follow. Cassy Hernandez MD cc: Cassy Hernandez MD
[2016-11-20] MEDS: (Lantus) Insulin Glargine, Recombinant SC SCH (22:15)
[2016-11-21] MEDS ORDERED: Pantoprazole 40 mg EC Tab PO ONE (08:15)
[2016-11-21 08:26] LABS: BASO # 0.2 K/uL (0.0-0.2); BASO % 1.7 % (0.0-2.0); EOS # 0.5 K/uL (0.0-0.7); EOS % 5.1 % (0.0-4.0); LYMPH # 1.8 K/uL (1.0-4.3); LYMPH % 19.4 % (20.0-40.0); MEAN CELL VOLUME 92.1 fL (80.0-94.0); MEAN CORPUSCULAR HEMOGLOBIN 29.1 pg (27.0-31.0); MEAN CORPUSCULAR HGB CONC 31.6 g/dL (33.0-37.0); MEAN PLATELET VOLUME 9.1 fL (7.2-11.7); MONO # 0.9 K/uL (0.0-0.8); MONO % 10.1 % (0.0-10.0); NRBC % 0.5 % (0.0-2.0); RED CELL DISTRIBUTION WIDTH 18.5 % (11.5-14.5); WHITE BLOOD COUNT 9.1 K/uL (4.8-10.8)
[2016-11-21] MEDS: (Novolin N) Insulin Human Isophane (NPH) 100 u/ml 10 ml vial SC SCH (08:28)
[2016-11-21] MEDS: Multivitamin Vitamin B Complex (Nephro-Vite) Tab PO SCH (08:28)
[2016-11-21] MEDS: Sevelamer Carb 2.4 gm/Packet PO SCH ×3 (08:29→18:55)
[2016-11-21] MEDS: (Novolin R) Insulin Human Regular 100 units/ml vial SC SCH ×4 (08:29→21:55)
[2016-11-21 08:42] LABS: POTASSIUM 5.7 mmol/L (3.6-5.2)
[2016-11-21 08:45] LABS: BILIRUBIN,TOTAL 0.6 mg/dL (0.2-1.3); TOTAL PROTEIN 7.6 g/dL (6.3-8.3)
[2016-11-21 08:46] LABS: CALCIUM 8.3 mg/dl (8.6-10.4); PHOSPHOROUS 7.4 mg/dL (2.5-4.5)
[2016-11-21] MEDS: Bacitracin Ointment 30 GM TUBE TOP SCH ×2 (11:30→18:55)
--- NOTE | 2016-11-21 12:58 | PN ---
DATE: LOCATION: [facility], bed B. SUBJECTIVE: This is a 36-year-old male seen early in rounds with less episode of nausea or vomiting, less dyspepsia, but intermittent period of abdominal pain. The entire chart is reviewed including, but not limited to the most recent lab and radiology study results, current and previous medication list, current and previous medical events. Case discussed at length with the staff in the floor. The most recent lab results show blood glucose level of 408, then subsequently brought to 274 with normal lipase and amylase level. PHYSICAL EXAMINATION: GENERAL: A 36-year-old male, awake, alert and oriented, complaining of abdominal pain as well as recently reported hematemesis with coffee-ground material. VITAL SIGNS: Afebrile with pulse of 76, respiratory rate 20-22, blood pressure 108/64. HEENT: Showed pale and dry mucoid membrane. Nonicteric sclera. LUNGS: Few scattered crepitation. Decreased air entry at bases. HEART: Positive S1 and S2. ABDOMEN: Soft. Bowel sounds are present with mild generalized tenderness and a slight distention. No mass or organomegaly. No rebound tenderness or guarding. EXTREMITIES: Without significant clubbing or cyanosis, but with mild lower extremities edematous changes. NEUROLOGIC: No reported new neurological deficits, sensory or motor. VASCULAR: Peripheral pulses are present bilaterally. IMPRESSION: 1. Exacerbation of peptic ulcer disease. 2. Diabetic gastroparesis. 3. Hematemesis with coffee-ground material by recent history to rule out bleeding Mera-Buitrago tear, the possibility of gastric versus duodenal ulcer was raised. 4. Poorly controlled diabetes mellitus. 5. Anemia most likely secondary to above. 6. Known history of end-stage renal disease, on hemodialysis. 7. Known history of hypertension, congestive heart failure, and hyperlipidemia. 8. Electrolyte imbalance secondary to above. SUGGESTIONS: 1. Continue current management. 2. Increase the rate/dose of Reglan to 50 mg IV push q.6h. in the meantime. 3. The patient for upper endoscopy at a.m. Cassy Hernandez MD cc: Cassy Hernandez MD
--- NOTE | 2016-11-21 15:56 | HP ---
HISTORY OF PRESENT ILLNESS: Mr. Haynes is a 36-year-old male, chief complaint of abdominal pain, nausea, vomiting, weakness. The patient came to ER, advised admission. The patient has history of diabetes, chronic renal failure, marijuana abuse. The patient came to the ER, advised admission. PHYSICAL EXAMINATION: GENERAL: The patient is awake, alert, and oriented. VITAL SIGNS: Temperature 98 and pulse 90. HEENT: Within normal limits. NECK: Supple. \CHEST: Symmetrical. HEART: Regular. ABDOMEN: Soft. EXTREMITIES: No edema. ASSESSMENT AND PLAN: Gastritis. Patient getting bedrest, supportive care. Lucero Chadwick MD
[2016-11-21] MEDS: (Lantus) Insulin Glargine, Recombinant SC SCH (21:55)
--- NOTE | 2016-11-22 03:13 | CON ---
DATE: 11/19/[address] Cassy Hernandez to Dr. Lucero Chadwick. I was called for GI consultation by the admitting medical team. The patient is seen and fully examined on 11/19/2016 as requested by the admitting medical staff. The entire chart is reviewed including, but not limited to the most recent lab and radiology study results, current and the previous medication list, current and the previous medical events, allergy to medication list as well as all the available current and the previous medical records. Case was discussed at length with the admitting medical staff on 11/19/2016. HISTORY OF PRESENT ILLNESS: This is a 36-year-old male, very well-known case for me from previous multiple admissions with long history of end-stage renal disease, on hemodialysis, who is admitted to the hospital with recurrent episodes of abdominal pain, nausea and vomiting of coffee-ground material with trace of fresh blood with postprandial abdominal distention. No reported chills or fever and no actual complaint of chest pain. After being admitted to this hospital, the patient was found to have low hemoglobin of 11.2, hematocrit 35.9, leukocyte of 16 with excessive increase of blood glucose level to 418, increased BUN of 62, increased creatinine of 6.6 with low CO2 content at 20 indicative of metabolic acidosis and increased potassium of 5.7. Radiology study results and final reports are seen. PAST MEDICAL HISTORY: Past medical history including, but not limited to: 1. Poorly controlled diabetes mellitus. 2. Diabetic gastroparesis. 3. Severe gastritis. 4. Known history of hypertension, hyperlipidemia with congestive heart failure. 5. Known history of peripheral edema syndrome. 6. End-stage renal disease, on hemodialysis. CURRENT MEDICATIONS: Medication list was reviewed ALLERGIES TO MEDICATIONS: UNCLEAR. SOCIAL HISTORY: Positive for cigarette smoking. FAMILY HISTORY: Unrelated to specific GI disorder. It has to be mentioned that a few weeks ago, the patient had an upper endoscopy due to similar episode. Please see endoscopy report. PHYSICAL EXAMINATION: GENERAL: A 36-year-old male, awake, alert and oriented with persistent episodes of nausea and vomiting. VITAL SIGNS: Afebrile with pulse of 96, respiratory rate 18 to 20 and blood pressure 180/84. HEENT: Show pale dry oral mucoid membranes, anicteric sclerae. LYMPH NODES: No lymphadenitis or lymphadenopathy. LUNGS: Few scattered crepitations with decreased air entry at bases. HEART: Positive S1 and S2 with increased rate. ABDOMEN: Soft with mild distention and diffuse tenderness. No mass or organomegaly. No rebound tenderness or guarding. NEUROLOGIC: No reported new neurological deficits, sensory or motor. Peripheral pulses are present bilaterally. IMPRESSION: 1. Hematemesis, recurrent, to rule out bleeding gastric versus duodenal ulcer, to rule out bleeding Mera-Buitrago tear. 2. Anemia secondary to above. 3. Multiple past medical history including, but not limited to diabetes mellitus, peptic ulcer disease, hypertension, congestive heart failure, chronic renal failure, on hemodialysis as well as hyperlipidemia. SUGGESTIONS: 1. Continue current management. 2. Reglan IV. 3. Correct any underlying coagulopathy. 4. Proton pump inhibitors. 5. Endoscopic evaluation of the GI tract when the patient is more stable clinically and after adequate dialysis. Thank you for letting me to participate in your patient's case management. We will follow up closely with you. Cassy Hernandez MD cc: Cassy Hernandez MD
[2016-11-22 08:00] LABS: BASO # 0.1 K/uL (0.0-0.2); BASO % 0.8 % (0.0-2.0); EOS # 0.6 K/uL (0.0-0.7); EOS % 4.4 % (0.0-4.0); HEMATOCRIT 34.7 % (35.0-51.0); LYMPH # 1.4 K/uL (1.0-4.3); MEAN CELL VOLUME 92.7 fL (80.0-94.0); MEAN CORPUSCULAR HEMOGLOBIN 29.1 pg (27.0-31.0); MEAN CORPUSCULAR HGB CONC 31.4 g/dL (33.0-37.0); MEAN PLATELET VOLUME 9.2 fL (7.2-11.7); MONO # 0.9 K/uL (0.0-0.8); MONO % 6.9 % (0.0-10.0); NRBC % 0.2 % (0.0-2.0); WHITE BLOOD COUNT 12.8 K/uL (4.8-10.8)
[2016-11-22 08:17] LABS: BILIRUBIN,TOTAL 0.6 mg/dL (0.2-1.3); TOTAL PROTEIN 7.2 g/dL (6.3-8.3)
[2016-11-22 08:18] LABS: CALCIUM 7.7 mg/dl (8.6-10.4); MAGNESIUM 2.1 mg/dL (1.6-2.3); PHOSPHOROUS 7.7 mg/dL (2.5-4.5)
[2016-11-22] MEDS: Multivitamin Vitamin B Complex (Nephro-Vite) Tab PO SCH (08:36)
[2016-11-22] MEDS: (Novolin N) Insulin Human Isophane (NPH) 100 u/ml 10 ml vial SC SCH (08:36)
[2016-11-22] MEDS: (Novolin R) Insulin Human Regular 100 units/ml vial SC SCH ×4 (08:36→22:32)
[2016-11-22] MEDS: Sevelamer Carb 2.4 gm/Packet PO SCH ×3 (08:37→18:28)
[2016-11-22] MEDS ORDERED: Epoetin Alfa 3000 UNIT/ML Inj SC SCH (09:00)
[2016-11-22 09:06] LABS: POTASSIUM 6.7 mmol/L (3.6-5.2)
[2016-11-22] MEDS ORDERED: Sodium Polystyrene Sulfonate Enema 30 gm/120 ml PR ONE (10:00)
--- NOTE | 2016-11-22 10:19 | CP.PCM.PN ---
Subjective - Date & Time of Evaluation Date of Evaluation: 11/22/16 Time of Evaluation: 10:17 - Subjective Subjective: seen and examined still w/ abdominal pain for EGD today pe: vss gen: nad sclera: anicteric op: clear neck: supple cv: +S1+s2 lungs: cta abd: soft ext: no edema neuro: A+OX3 psych: normal affect skin: no rash imp: recurrent nausea/vomitting, cyclic emesis syndrome, marijuana abuse, gastroparesis Diabetic chronic Kidney Disease (E11.22) Hypertensive Chronic Kidney Disease (I12.0) with HTN urgency End stage renal disease (N18.6) dependence on hemodialysis (Z99.2) (MWF) via AVF Anemia (D64.9), Hyperphosphatemia (E83.39), Secondary Hyperparathyroidism (E21.1 ), HTN (I12.0) Hyperkalemia Hyponatremia Plan: HD today and continue MWF, will need HD urgently as K is very high this morning na should improve w/ hd probably naussea/pain contributing to the hyponatremia Continue with Nephrovite 1 tab/day. On MOHINI on renvela tachycardia is improved Objective - Vital Signs/Intake and Output Vital Signs (last 24 hours): Temp Pulse Resp BP Pulse Ox 97.8 F 77 18 119/75 98 11/22/16 07:40 11/22/16 07:40 11/22/16 07:40 11/22/16 07:40 11/22/16 07:40 Intake and Output: 11/22/16 11/22/16 06:59 18:59 Intake Total 480 Balance 480 - Medications Medications: Current Medications Amlodipine Besylate (Norvasc) 10 mg PO DAILY [facility] Last Admin: 11/21/16 11:31 Dose: 10 mg Aspirin (Ecotrin) 81 mg PO DAILY [facility] Last Admin: 11/21/16 11:31 Dose: 81 mg Bacitracin (Bacitracin) 1 gm TOP BID [facility] Last Admin: 11/21/16 18:55 Dose: 1 applic Clonidine HCl (Catapres) 0.3 mg PO TID [facility] Last Admin: 11/21/16 18:57 Dose: 0.3 mg Epoetin Oumar (Procrit) 3,000 unit SC [facility] Gabapentin (Neurontin) 300 mg PO DAILY [facility] Last Admin: 11/21/16 11:31 Dose: 300 mg Hydralazine HCl (Apresoline) 10 mg IVP Q6H PRN PRN Reason: Systolic Blood Pressure Last Admin: 11/19/16 19:34 Dose: 10 mg Hydralazine HCl (Apresoline) 100 mg PO Q8 [facility] Last Admin: 11/22/16 06:18 Dose: Not Given Dextrose (Dextrose 5% In Water 1000 Ml) 1,000 mls @ 40 mls/hr IV .Q24H [facility] Last Admin: 11/22/16 00:53 Dose: 40 mls/hr Insulin Glargine (Lantus) 40 unit SC HS [facility] Last Admin: 11/21/16 21:55 Dose: 40 units Insulin Human NPH (Novolin N) 14 unit SC DAILY@0730 [facility] Last Admin: 11/22/16 08:36 Dose: Not Given Insulin Human Regular (Novolin R) 0 unit SC ACHS [facility] PRN Reason: Protocol Last Admin: 11/22/16 08:36 Dose: Not Given Ketorolac Tromethamine (Toradol) 30 mg IVP Q8 PRN PRN Reason: Pain, moderate (4-7) Last Admin: 11/22/16 00:56 Dose: 30 mg Losartan Potassium (Cozaar) 50 mg PO DAILY [facility] Last Admin: 11/21/16 11:31 Dose: 50 mg Metoclopramide HCl (Reglan) 5 mg IVP Q6H PRN PRN Reason: Nausea/Vomiting Last Admin: 11/20/16 10:16 Dose: 5 mg Ondansetron HCl (Zofran Inj) 4 mg IVP Q8 PRN PRN Reason: Nausea/Vomiting Last Admin: 11/20/16 05:15 Dose: 4 mg Pantoprazole Sodium (Protonix Inj) 40 mg IVP Q12H [facility] Last Admin: 11/22/16 08:55 Dose: 40 mg Sevelamer Carbonate (Renvela) 2.4 gm PO TIDCC [facility] Last Admin: 11/22/16 08:37 Dose: Not Given Vitamin B Complex/Vit C/Folic Acid (Nephro-Yomi) 1 tab PO 0800 [facility] Last Admin: 11/22/16 08:36 Dose: Not Given - Labs Labs: 11/22/16 07:47 11/22/16 07:47 PT 10.8 SECONDS (9.7-12.2) 11/19/16 09:36 INR 1.0 11/19/16 09:36 APTT 30 SECONDS (21-34) 11/19/16 09:36
[2016-11-22] MEDS: Bacitracin Ointment 30 GM TUBE TOP SCH ×2 (11:45→20:23)
--- NOTE | 2016-11-22 11:45 | CP.PCM.CON ---
<Channing Avila - Last Filed: 11/22/16 11:42> History of Present Illness - History of Present Illness History of Present Illness: 36 year old seen this AM for ulcer sub met 5 chronic in nature .DR CHEYANNE Mcgraw concerned abot infection in area . Past Patient History - Infectious Disease Hx of Infectious Diseases: None - Past Medical History & Family History Past Medical History?: Yes - Past Social History Smoking Status: Former Smoker - CARDIAC Hx Congestive Heart Failure: Yes Hx Hypercholesterolemia: Yes Hx Hypertension: Yes Hx Peripheral Edema: Yes - PULMONARY Hx Respiratory Disorders: No - NEUROLOGICAL Hx Neurological Disorder: Yes Other/Comment: Bilateral leg neuropathy - HEENT Hx HEENT Problems: Yes Hx Cataracts: Yes Other/Comment: cataract surgery [facility] 10 years ago - RENAL Hx Chronic Kidney Disease: Yes - ENDOCRINE/METABOLIC Hx Diabetes Mellitus Type 2: Yes - HEMATOLOGICAL/ONCOLOGICAL Hx Anemia: Yes - INTEGUMENTARY Hx Dermatological Problems: No - MUSCULOSKELETAL/RHEUMATOLOGICAL Hx Falls: Yes - GASTROINTESTINAL Hx Gastritis: Yes - GENITOURINARY/GYNECOLOGICAL Hx Genitourinary Disorders: No - PSYCHIATRIC Hx Substance Use: Yes (marijuana 1 per day) - SURGICAL HISTORY Hx Surgeries: Yes Hx Vascular Access Device: Yes Other/Comment: RT.PERMACATH INSERTION 12/30. LT.AV SHUNT CREATION 02/17/16. UNDESCENDED TESTES LT. REMOVED DURING CHILDHOOD - ANESTHESIA Hx Anesthesia: Yes Hx Anesthesia Reactions: No Hx Malignant Hyperthermia: No Meds Allergies/Adverse Reactions: Allergies Allergy/AdvReac Type Severity Reaction Status Date / Time No Known Allergies Allergy Verified 11/12/16 10:45 - Medications Medications: Current Medications Amlodipine Besylate (Norvasc) 10 mg PO DAILY [facility] Last Admin: 11/21/16 11:31 Dose: 10 mg Aspirin (Ecotrin) 81 mg PO DAILY [facility] Last Admin: 11/21/16 11:31 Dose: 81 mg Bacitracin (Bacitracin) 1 gm TOP BID [facility] Last Admin: 11/21/16 18:55 Dose: 1 applic Clonidine HCl (Catapres) 0.3 mg PO TID [facility] Last Admin: 11/21/16 18:57 Dose: 0.3 mg Epoetin Oumar (Procrit) 3,000 unit SC [facility] [place] Gabapentin (Neurontin) 300 mg PO DAILY [facility] Last Admin: 11/21/16 11:31 Dose: 300 mg Hydralazine HCl (Apresoline) 10 mg IVP Q6H PRN PRN Reason: Systolic Blood Pressure Last Admin: 11/19/16 19:34 Dose: 10 mg Hydralazine HCl (Apresoline) 100 mg PO Q8 [facility] Last Admin: 11/22/16 06:18 Dose: Not Given Dextrose (Dextrose 5% In Water 1000 Ml) 1,000 mls @ 40 mls/hr IV .Q24H [facility] Last Admin: 11/22/16 00:53 Dose: 40 mls/hr Insulin Glargine (Lantus) 40 unit SC HS [facility] Last Admin: 11/21/16 21:55 Dose: 40 units Insulin Human NPH (Novolin N) 14 unit SC DAILY@0730 [facility] Last Admin: 11/22/16 08:36 Dose: Not Given Insulin Human Regular (Novolin R) 0 unit SC ACHS [facility] PRN Reason: Protocol Last Admin: 11/22/16 08:36 Dose: Not Given Ketorolac Tromethamine (Toradol) 30 mg IVP Q8 PRN PRN Reason: Pain, moderate (4-7) Last Admin: 11/22/16 00:56 Dose: 30 mg Losartan Potassium (Cozaar) 50 mg PO DAILY [facility] Last Admin: 11/21/16 11:31 Dose: 50 mg Metoclopramide HCl (Reglan) 5 mg IVP Q6H PRN PRN Reason: Nausea/Vomiting Last Admin: 11/20/16 10:16 Dose: 5 mg Ondansetron HCl (Zofran Inj) 4 mg IVP Q8 PRN PRN Reason: Nausea/Vomiting Last Admin: 11/20/16 05:15 Dose: 4 mg Pantoprazole Sodium (Protonix Inj) 40 mg IVP Q12H [facility] Last Admin: 11/22/16 08:55 Dose: 40 mg Sevelamer Carbonate (Renvela) 2.4 gm PO TIDCC [facility] Last Admin: 11/22/16 08:37 Dose: Not Given Vitamin B Complex/Vit C/Folic Acid (Nephro-Yomi) 1 tab PO 0800 [facility] Last Admin: 11/22/16 08:36 Dose: Not Given Results - Vital Signs Recent Vital Signs: Last Vital Signs Temp 97.9 F 11/22/16 10:50 Pulse 76 11/22/16 10:50 Resp 20 11/22/16 10:50 BP 126/76 11/22/16 10:50 Pulse Ox 98 11/22/16 07:40 - Labs Result Diagrams: 11/22/16 07:47 11/22/16 07:47 Labs: Laboratory Results - last 24 hr 11/21/16 11/21/16 11/22/16 17:07 21:25 01:04 WBC RBC Hgb Hct MCV MCH MCHC RDW Plt Count MPV Neut % (Auto) Lymph % (Auto) [place] % (Auto) Eos % (Auto) Baso % (Auto) Neut # Lymph # [place] # Eos # Baso # Sodium Potassium Chloride Carbon Dioxide Anion Gap BUN Creatinine Est GFR ( Amer) Est GFR (Non-Af Amer) POC Glucose (mg/dL) 233 H 98 181 H Random Glucose Calcium Phosphorus Magnesium Total Bilirubin AST ALT Alkaline Phosphatase Total Protein Albumin Globulin Albumin/Globulin Ratio 11/22/16 11/22/16 11/22/16 06:18 07:47 07:47 WBC 12.8 H RBC 3.74 L Hgb 10.9 L Hct 34.7 L MCV 92.7 MCH 29.1 MCHC 31.4 L RDW 19.0 H Plt Count 322 MPV 9.2 Neut % (Auto) 76.9 H Lymph % (Auto) 11.0 L [place] % (Auto) 6.9 Eos % (Auto) 4.4 H Baso % (Auto) 0.8 Neut # 9.9 H Lymph # 1.4 [place] # 0.9 H Eos # 0.6 Baso # 0.1 Sodium 129 L Potassium 6.7 H* Chloride 93 L Carbon Dioxide 20 L Anion Gap 23 H BUN 80 H Creatinine 8.9 H* D Est GFR ( Amer) 8 Est GFR (Non-Af Amer) 7 POC Glucose (mg/dL) 128 H Random Glucose 82 Calcium 7.7 L Phosphorus 7.7 H Magnesium 2.1 Total Bilirubin 0.6 AST 35 ALT 34 Alkaline Phosphatase 116 Total Protein 7.2 Albumin 3.6 Globulin 3.5 Albumin/Globulin Ratio 1.0 11/22/16 11:14 WBC RBC Hgb Hct MCV MCH MCHC RDW Plt Count MPV Neut % (Auto) Lymph % (Auto) [place] % (Auto) Eos % (Auto) Baso % (Auto) Neut # Lymph # [place] # Eos # Baso # Sodium Potassium Chloride Carbon Dioxide Anion Gap BUN Creatinine Est GFR ( Amer) Est GFR (Non-Af Amer) POC Glucose (mg/dL) 70 Random Glucose Calcium Phosphorus Magnesium Total Bilirubin AST ALT Alkaline Phosphatase Total Protein Albumin Globulin Albumin/Globulin Ratio Assessment & Plan - Assessment and Plan (Free Text) Plan: Pt seen at bedside and evaluated this AM .XRays and Bactroban /Xeroform dressing applied right daily .will follow. <Sylvia Camacho - Last Filed: 11/22/16 20:51> History of Present Illness - History of Present Illness History of Present Illness: Pt seen and evaluated with attending Dr. Avila. Pt consulted regarding right foot superficial ulceration. Pt denies overnight acute events. Pt was comfortable during this interview. Meds - Medications Medications: Current Medications Amlodipine Besylate (Norvasc) 10 mg PO DAILY [facility] Last Admin: 11/22/16 11:45 Dose: Not Given Aspirin (Ecotrin) 81 mg PO DAILY [facility] Last Admin: 11/22/16 14:00 Dose: Not Given Bacitracin (Bacitracin) 1 gm TOP BID [facility] Last Admin: 11/22/16 20:23 Dose: 1 applic Clonidine HCl (Catapres) 0.3 mg PO TID [facility] Last Admin: 11/22/16 18:28 Dose: 0.3 mg Epoetin Oumar (Procrit) 3,000 unit IV MWF [facility] Gabapentin (Neurontin) 100 mg PO DAILY [facility] Last Admin: 11/22/16 18:28 Dose: 100 mg Hydralazine HCl (Apresoline) 10 mg IVP Q6H PRN PRN Reason: Systolic Blood Pressure Last Admin: 11/19/16 19:34 Dose: 10 mg Hydralazine HCl (Apresoline) 100 mg PO Q8 [facility] Last Admin: 11/22/16 14:00 Dose: Not Given Dextrose (Dextrose 5% In Water 1000 Ml) 1,000 mls @ 40 mls/hr IV .Q24H [facility] Last Admin: 11/22/16 00:53 Dose: 40 mls/hr Insulin Glargine (Lantus) 40 unit SC HS [facility] Last Admin: 11/21/16 21:55 Dose: 40 units Insulin Human NPH (Novolin N) 14 unit SC DAILY@0730 [facility] Last Admin: 10/09/17 08:36 Dose: Not Given Insulin Human Regular (Novolin R) 0 unit SC ACHS [facility] PRN Reason: Protocol Last Admin: 11/22/16 18:30 Dose: 3 unit Ketorolac Tromethamine (Toradol) 30 mg IVP Q8 PRN PRN Reason: Pain, moderate (4-7) Last Admin: 11/22/16 00:56 Dose: 30 mg Losartan Potassium (Cozaar) 50 mg PO DAILY [facility] Last Admin: 11/22/16 11:45 Dose: Not Given Metoclopramide HCl (Reglan) 5 mg IVP Q6H PRN PRN Reason: Nausea/Vomiting Last Admin: 11/20/16 10:16 Dose: 5 mg Mupirocin (Bactroban Ointment) 1 gm TOP BID [facility] Ondansetron HCl (Zofran Inj) 4 mg IVP Q8 PRN PRN Reason: Nausea/Vomiting Last Admin: 11/20/16 05:15 Dose: 4 mg Pantoprazole Sodium (Protonix Inj) 40 mg IVP Q12H [facility] Last Admin: 11/22/16 20:23 Dose: 40 mg Sevelamer Carbonate (Renvela) 2.4 gm PO TIDCC [facility] Last Admin: 11/22/16 18:28 Dose: 2.4 gm Vitamin B Complex/Vit C/Folic Acid (Nephro-Yomi) 1 tab PO 0800 [facility] Last Admin: 11/22/16 08:36 Dose: Not Given Physical Exam - Constitutional Appears: Well, Non-toxic, No Acute Distress - Extremities Exam Additional comments: Right foot focused. DERM: Right foot superficial ulceration plantar to 5th metatarsal head. Absent non-blanchable, streaking erythema. No acute signs of infection. Ulceration measures 5cm x 0.7mm. Absent active purulent drainage. - Neurological Exam Neurological exam: Alert, Oriented x3 - Psychiatric Exam Psychiatric exam: Normal Affect, Normal Mood Results - Vital Signs Recent Vital Signs: Last Vital Signs Temp 98.2 F 11/22/16 15:18 Pulse 95 H 11/22/16 15:40 Resp 20 11/22/16 15:18 BP 157/87 H 11/22/16 15:18 Pulse Ox 98 11/22/16 15:18 - Labs Result Diagrams: 11/22/16 07:47 11/22/16 16:36 Labs: Laboratory Results - last 24 hr 11/21/16 11/22/16 11/22/16 21:25 01:04 06:18 WBC RBC Hgb Hct MCV MCH MCHC RDW Plt Count MPV Neut % (Auto) Lymph % (Auto) [place] % (Auto) Eos % (Auto) Baso % (Auto) Neut # Lymph # [place] # Eos # Baso # Sodium Potassium Chloride Carbon Dioxide Anion Gap BUN Creatinine Est GFR ( Amer) Est GFR (Non-Af Amer) POC Glucose (mg/dL) 98 181 H 128 H Random Glucose Calcium Phosphorus Magnesium Total Bilirubin AST ALT Alkaline Phosphatase Total Protein Albumin Globulin Albumin/Globulin Ratio 11/22/16 11/22/16 11/22/16 07:47 07:47 11:14 WBC 12.8 H RBC 3.74 L Hgb 10.9 L Hct 34.7 L MCV 92.7 MCH 29.1 MCHC 31.4 L RDW 19.0 H Plt Count 322 MPV 9.2 Neut % (Auto) 76.9 H Lymph % (Auto) 11.0 L [place] % (Auto) 6.9 Eos % (Auto) 4.4 H Baso % (Auto) 0.8 Neut # 9.9 H Lymph # 1.4 [place] # 0.9 H Eos # 0.6 Baso # 0.1 Sodium 129 L Potassium 6.7 H* Chloride 93 L Carbon Dioxide 20 L Anion Gap 23 H BUN 80 H Creatinine 8.9 H* D Est GFR ( Amer) 8 Est GFR (Non-Af Amer) 7 POC Glucose (mg/dL) 70 Random Glucose 82 Calcium 7.7 L Phosphorus 7.7 H Magnesium 2.1 Total Bilirubin 0.6 AST 35 ALT 34 Alkaline Phosphatase 116 Total Protein 7.2 Albumin 3.6 Globulin 3.5 Albumin/Globulin Ratio 1.0 11/22/16 11/22/16 11/22/16 14:21 15:02 16:36 WBC RBC Hgb Hct MCV MCH MCHC RDW Plt Count MPV Neut % (Auto) Lymph % (Auto) [place] % (Auto) Eos % (Auto) Baso % (Auto) Neut # Lymph # [place] # Eos # Baso # Sodium 131 L Potassium 4.8 Chloride 93 L Carbon Dioxide 25 Anion Gap 18 BUN 39 H Creatinine 5.3 H Est GFR ( Amer) 15 Est GFR (Non-Af Amer) 12 POC Glucose (mg/dL) 48 L 177 H Random Glucose 132 H Calcium 8.2 L Phosphorus Magnesium Total Bilirubin AST ALT Alkaline Phosphatase Total Protein Albumin Globulin Albumin/Globulin Ratio 11/22/16 16:55 WBC RBC Hgb Hct MCV MCH MCHC RDW Plt Count MPV Neut % (Auto) Lymph % (Auto) [place] % (Auto) Eos % (Auto) Baso % (Auto) Neut # Lymph # [place] # Eos # Baso # Sodium Potassium Chloride Carbon Dioxide Anion Gap BUN Creatinine Est GFR ( Amer) Est GFR (Non-Af Amer) POC Glucose (mg/dL) 211 H Random Glucose Calcium Phosphorus Magnesium Total Bilirubin AST ALT Alkaline Phosphatase Total Protein Albumin Globulin Albumin/Globulin Ratio Assessment & Plan - Assessment and Plan (Free Text) Assessment: 36 year old male with left foot superficial Fajardo Grade 1 ulceration. - Date & Time Date: 11/22/16 Time: 11:40
[2016-11-22] MEDS ORDERED: Epoetin Alfa Dialysis 3000 UNIT/ML Inj IV SCH (12:21)
--- NOTE | 2016-11-22 13:55 | CP.PCM.PN ---
Subjective - Date & Time of Evaluation Date of Evaluation: 11/22/16 Time of Evaluation: 13:55 - Subjective Subjective: Pt seen and examined at bedside; had an indepth conversation with the patient as to why he actively chooses to not learn more about his health conditions and not manage more of his health problems on his own; continuously asks me to call his mother in regards to his health conditions and will not actively engage in a conversation as to why he chooses to not take his medications but can arrange to buy marijuana. When the patient was asked what would happen if his mother were to , or simply go on vacation to not be able to take care of him the patient was unable to offer any meaningful response as to how he would take care of himself. He also stated he did not cloth picker ANY of his medicines that were given to him on his last discharge because "he does not know how to do this and his mom is in charge of the insurance". Objective - Vital Signs/Intake and Output Vital Signs (last 24 hours): Temp Pulse Resp BP Pulse Ox 97.9 F 76 18 149/78 97 11/22/16 10:55 11/22/16 10:55 11/22/16 10:55 11/22/16 11:55 11/22/16 10:55 Intake and Output: 11/22/16 11/22/16 06:59 18:59 Intake Total 480 Balance 480 - Medications Medications: Current Medications Amlodipine Besylate (Norvasc) 10 mg PO DAILY [facility] Last Admin: 11/22/16 11:45 Dose: Not Given Aspirin (Ecotrin) 81 mg PO DAILY [facility] Last Admin: 11/21/16 11:31 Dose: 81 mg Bacitracin (Bacitracin) 1 gm TOP BID [facility] Last Admin: 11/22/16 11:45 Dose: Not Given Clonidine HCl (Catapres) 0.3 mg PO TID [facility] Last Admin: 11/22/16 11:45 Dose: Not Given Epoetin Oumar (Procrit) 3,000 unit IV MWF [facility] Last Admin: 11/22/16 12:29 Dose: 3,000 unit Gabapentin (Neurontin) 300 mg PO DAILY [facility] Last Admin: 11/21/16 11:31 Dose: 300 mg Hydralazine HCl (Apresoline) 10 mg IVP Q6H PRN PRN Reason: Systolic Blood Pressure Last Admin: 11/19/16 19:34 Dose: 10 mg Hydralazine HCl (Apresoline) 100 mg PO Q8 [facility] Last Admin: 11/22/16 06:18 Dose: Not Given Dextrose (Dextrose 5% In Water 1000 Ml) 1,000 mls @ 40 mls/hr IV .Q24H [facility] Last Admin: 11/22/16 00:53 Dose: 40 mls/hr Insulin Glargine (Lantus) 40 unit SC HS [facility] Last Admin: 11/21/16 21:55 Dose: 40 units Insulin Human NPH (Novolin N) 14 unit SC DAILY@0730 [facility] Last Admin: 11/22/16 08:36 Dose: Not Given Insulin Human Regular (Novolin R) 0 unit SC ACHS [facility] PRN Reason: Protocol Last Admin: 11/22/16 08:36 Dose: Not Given Ketorolac Tromethamine (Toradol) 30 mg IVP Q8 PRN PRN Reason: Pain, moderate (4-7) Last Admin: 11/22/16 00:56 Dose: 30 mg Losartan Potassium (Cozaar) 50 mg PO DAILY [facility] Last Admin: 11/22/16 11:45 Dose: Not Given Metoclopramide HCl (Reglan) 5 mg IVP Q6H PRN PRN Reason: Nausea/Vomiting Last Admin: 11/20/16 10:16 Dose: 5 mg Ondansetron HCl (Zofran Inj) 4 mg IVP Q8 PRN PRN Reason: Nausea/Vomiting Last Admin: 11/20/16 05:15 Dose: 4 mg Pantoprazole Sodium (Protonix Inj) 40 mg IVP Q12H [facility] Last Admin: 11/22/16 08:55 Dose: 40 mg Sevelamer Carbonate (Renvela) 2.4 gm PO TIDCC [facility] Last Admin: 11/22/16 08:37 Dose: Not Given Vitamin B Complex/Vit C/Folic Acid (Nephro-Yomi) 1 tab PO 0800 [facility] Last Admin: 11/22/16 08:36 Dose: Not Given - Labs Labs: 11/22/16 07:47 11/22/16 07:47 PT 10.8 SECONDS (9.7-12.2) 11/19/16 09:36 INR 1.0 11/19/16 09:36 APTT 30 SECONDS (21-34) 11/19/16 09:36 - Constitutional Appears: Non-toxic - Head Exam Head Exam: ATRAUMATIC - Eye Exam Eye Exam: EOMI - ENT Exam ENT Exam: Mucous Membranes Moist - Neck Exam Neck Exam: Full ROM - Respiratory Exam Respiratory Exam: Clear to Ausculation Bilateral, NORMAL BREATHING PATTERN. absent: Rales, Rhonchi, Wheezes - Cardiovascular Exam Cardiovascular Exam: REGULAR RHYTHM - GI/Abdominal Exam GI & Abdominal Exam: Soft, Normal Bowel Sounds - Rectal Exam Rectal Exam: Deferred - Extremities Exam Extremities Exam: Full ROM. absent: Calf Tenderness - Back Exam Back Exam: absent: CVA tenderness (L), CVA tenderness (R) - Neurological Exam Neurological Exam: Alert, Awake, Oriented x3 - Psychiatric Exam Psychiatric exam: Flat Affect - Skin Skin Exam: Warm Assessment and Plan - Assessment and Plan (Free Text) Assessment: GI Bleed; resolved - patient for EGD tomorrow 11/23; will be NPO after midnight - Witnessed cough ground emesis - Agricultural Pilot, Dr. Armstrong, consulted - recommend NPO, Reglan for DM gastroparesis - Morphine 1 mg IVP stat for abdominal pain given in ED - Monitor H&H, Blood type and screen, type and cross - Timed CBC q6H CT abdomen/pelvis (11/19/16): Examination limited by absence of oral and IV contrast as well as paucity of intra-abdominal/pelvic fat. Mild urinary bladder wall thickening. Correlate with urinalysis. No evidence of intestinal obstruction. (see full report) Protonix 40mg IV BID Reglan 5mg IV Q6H (renally dosed) Morphine 1mg IV Q6H PRN Hypertension; controlled - 244/147 on admission Patients BP uncontrolled PRN Hydralazine for SBP over 180/95 HOLD home medications: Clonidine HCl (Catapres) 0.3 mg PO TID [facility] Hydralazine HCl (Apresoline) 50 mg PO Q8H [facility] Losartan Potassium (Cozaar) 50 mg PO DAILY [facility] amlodipine (norvasc) 10mg PO daily Patient is chronically medically non complaint; does not wish to at all exert any effort over his health conditions; states that all orders must be placed through his mother since she is in charge of everything. When questioned what he would do if his mom were to go on vacation, get sick, or her eventual , he was unable to respond to how he would take care of himself. T2DM; chronic; stable -last A1C on last admission last week 10.6 -glucose 400+ on admission, anion gap elevated - AB.45 pH, non-acidotic (not in DKA) - f/u UA for serum ketones, f/u Beta-hydroxybutyric acid -RISS and accuchecks patient was not taking insulin as prescribed at home Hold home dosing as pt NPO: -Lantus 40 units SC HS -Aspart 14 units AC [facility] Chronic Kidney Disease on HD Nephrology Consult, Dr. Larsen HD MWF - Pt for dialysis today - f/u reccs Leukocytosis 10: 12 today; will monitor WBC 15.6 on admission, will continue to monitor DM neuropathy HOLD Gabapentin 300mg PO Daily as pt NPO Prophylaxis NPO diet after midnight Contraindication for VTE ppx due to GI bleed Protonix Inj 40 mg IVP Q12H [facility] patient encouraged to discontinue marijuana use; as per psych note patient has marijuana addiction Meds to beds encouraged for chronic medical non compliance All medical management as per Dr. Chadwick
--- NOTE | 2016-11-22 14:16 | PN ---
LOCATION: #662, bed #B. SUBJECTIVE: This is a 36-year-old male, scheduled for upper endoscopy due to recent recurrent episode of hematemesis of coffee-ground material, was found to have elevated serum potassium level for which the patient had to go for a stat hemodialysis as per the nephrology personal consultant and upper endoscopy was re-scheduled for a.m. post hemodialysis today. The patient still has intermittent period of nausea and dyspepsia with abdominal pain. The entire chart is reviewed, including but no limited to the most recent lab and radiology study results, current and the previous medication list, current and the previous medical events and today's white blood cells were 12.8 with low hemoglobin of 10.9, low hematocrit of 34.7 with normal platelet count, but low sodium of 129, potassium 6.7 with low CO2 content of 20, indicative of metabolic acidosis with BUN 80 and creatinine 8.9 with the latest blood glucose level of 70 and low calcium of 7.7 with increased phosphorus of 7.7. PHYSICAL EXAMINATION: GENERAL AND VITAL SIGNS: A 36-year-old male, afebrile with pulse of 60, blood pressure of 140/74, seen and examined, case discussed with staff on the floor as well as the personal consultant. HEENT: Showed pale, dry oral mucoid membrane, nonicteric sclerae. LUNGS: Few scattered crepitations, decreased air entry at bases. HEART: Positive S1 and S2. ABDOMEN: Soft. Bowel sounds are present with generalized tenderness. No mass or organomegaly. No rebound tenderness or guarding. EXTREMITIES: Lower extremity edematous changes. No clubbing or cyanosis. NEUROLOGIC: No reported new neurological deficits, sensory or motor. IMPRESSION: 1. Re-exacerbation of peptic ulcer disease. 2. Recurrent diabetic gastroparesis. 3. Hematemesis of coffee-ground material, to rule out gastric versus duodenal ulcer versus bleeding Mera-Buitrago tear. 4. Poorly controlled diabetes mellitus. 5. Anemia secondary to above. 6. End-stage renal disease, on hemodialysis. 7. Known history of hypertension, congestive heart failure and hyperlipidemia. 8. Electrolyte imbalance secondary to above. SUGGESTIONS: 1. Continue current management. 2. Re-schedule the patient for upper endoscopy at a.m. after controlling the hyperkalemia. 3. Repeat serum lipase and amylase levels. Cassy Hernandez MD cc: Cassy Hernandez MD
[2016-11-22 17:22] LABS: POTASSIUM 4.8 mmol/L (3.6-5.2)
[2016-11-22 17:25] LABS: CALCIUM 8.2 mg/dl (8.6-10.4)
[2016-11-22] MEDS: (Lantus) Insulin Glargine, Recombinant SC SCH (22:32)
[2016-11-23] MEDS: (Novolin R) Insulin Human Regular 100 units/ml vial SC SCH ×4 (07:13→22:15)
[2016-11-23] MEDS: (Novolin N) Insulin Human Isophane (NPH) 100 u/ml 10 ml vial SC SCH (08:09)
[2016-11-23] MEDS: Multivitamin Vitamin B Complex (Nephro-Vite) Tab PO SCH (08:09)
[2016-11-23] MEDS: Sevelamer Carb 2.4 gm/Packet PO SCH ×3 (08:10→17:45)
--- NOTE | 2016-11-23 09:04 | CP.PCM.PN ---
Subjective - Date & Time of Evaluation Date of Evaluation: 11/23/16 Time of Evaluation: 10:00 - Subjective Subjective: Dr. Chadwick note: Patient is a 36 year old male with a history of uncontrolled DM, ESRD on dialysis, and peptic ulcer disease. Patient is for EGD today. He came here with nausea, vomiting, and coffee ground emesis which he has had in the past. He says his symptoms have improved since admission. Objective - Vital Signs/Intake and Output Vital Signs (last 24 hours): Temp Pulse Resp BP Pulse Ox 98.1 F 78 20 144/78 99 11/23/16 08:03 11/23/16 08:03 11/23/16 08:03 11/23/16 08:03 11/23/16 08:03 Intake and Output: 11/23/16 11/23/16 06:59 18:59 Intake Total 0 Balance 0 - Medications Medications: Current Medications Amlodipine Besylate (Norvasc) 10 mg PO DAILY [facility] Last Admin: 11/22/16 11:45 Dose: Not Given Aspirin (Ecotrin) 81 mg PO DAILY [facility] Last Admin: 11/22/16 14:00 Dose: Not Given Bacitracin (Bacitracin) 1 gm TOP BID [facility] Last Admin: 11/22/16 20:23 Dose: 1 applic Clonidine HCl (Catapres) 0.3 mg PO TID [facility] Last Admin: 11/22/16 18:28 Dose: 0.3 mg Epoetin Oumar (Procrit) 3,000 unit IV MWF [facility] Gabapentin (Neurontin) 100 mg PO DAILY [facility] Last Admin: 11/22/16 18:28 Dose: 100 mg Hydralazine HCl (Apresoline) 10 mg IVP Q6H PRN PRN Reason: Systolic Blood Pressure Last Admin: 11/19/16 19:34 Dose: 10 mg Hydralazine HCl (Apresoline) 100 mg PO Q8 [facility] Last Admin: 11/23/16 06:48 Dose: Not Given Dextrose (Dextrose 5% In Water 1000 Ml) 1,000 mls @ 40 mls/hr IV .Q24H [facility] Last Admin: 11/23/16 00:00 Dose: Not Given Insulin Glargine (Lantus) 40 unit SC HS [facility] Last Admin: 11/22/16 22:32 Dose: Not Given Insulin Human NPH (Novolin N) 14 unit SC DAILY@0730 [facility] Last Admin: 11/23/16 08:09 Dose: Not Given Insulin Human Regular (Novolin R) 0 unit SC ACHS [facility] PRN Reason: Protocol Last Admin: 11/23/16 07:13 Dose: Not Given Ketorolac Tromethamine (Toradol) 30 mg IVP Q8 PRN PRN Reason: Pain, moderate (4-7) Last Admin: 11/23/16 03:47 Dose: 30 mg Losartan Potassium (Cozaar) 50 mg PO DAILY [facility] Last Admin: 11/22/16 11:45 Dose: Not Given Metoclopramide HCl (Reglan) 5 mg IVP Q6H PRN PRN Reason: Nausea/Vomiting Last Admin: 11/20/16 10:16 Dose: 5 mg Mupirocin (Bactroban Ointment) 1 gm TOP BID [facility] Ondansetron HCl (Zofran Inj) 4 mg IVP Q8 PRN PRN Reason: Nausea/Vomiting Last Admin: 11/20/16 05:15 Dose: 4 mg Pantoprazole Sodium (Protonix Inj) 40 mg IVP Q12H [facility] Last Admin: 11/22/16 20:23 Dose: 40 mg Sevelamer Carbonate (Renvela) 2.4 gm PO TIDCC [facility] Last Admin: 11/23/16 08:10 Dose: Not Given Vitamin B Complex/Vit C/Folic Acid (Nephro-Yomi) 1 tab PO 0800 [facility] Last Admin: 11/23/16 08:09 Dose: Not Given - Labs Labs: 11/22/16 07:47 11/22/16 16:36 PT 10.8 SECONDS (9.7-12.2) 11/19/16 09:36 INR 1.0 11/19/16 09:36 APTT 30 SECONDS (21-34) 11/19/16 09:36 - Constitutional Appears: Non-toxic, No Acute Distress - Respiratory Exam Respiratory Exam: Clear to Ausculation Bilateral. absent: Rhonchi, Wheezes - Cardiovascular Exam Cardiovascular Exam: REGULAR RHYTHM, RRR, +S1, +S2. absent: Gallop, Rubs - GI/Abdominal Exam GI & Abdominal Exam: Soft, Tenderness (mild diffuse), Normal Bowel Sounds. absent: Distended, Guarding - Extremities Exam Extremities Exam: Normal Inspection. absent: Pedal Edema - Back Exam Back Exam: NORMAL INSPECTION - Psychiatric Exam Psychiatric exam: Normal Affect, Normal Mood Assessment and Plan - Assessment and Plan (Free Text) Assessment: GI Bleed; resolved 11/24: EGD today, showed a non bleeding ulcer, will discharge home tomorrow after dialysis, will send home with PO protonix, he will need to follow up with GI consult Dr. Armstrong for biopsy. Discontinued his prn toradol order due to GI bleed. patient for EGD tomorrow 11/23; will be NPO after midnight - Witnessed cough ground emesis - Outbound Supervisor, Dr. Armstrong, consulted - recommend NPO, Reglan for DM gastroparesis - Morphine 1 mg IVP stat for abdominal pain given in ED - Monitor H&H, Blood type and screen, type and cross - Timed CBC q6H CT abdomen/pelvis (11/19/16): Examination limited by absence of oral and IV contrast as well as paucity of intra-abdominal/pelvic fat. Mild urinary bladder wall thickening. Correlate with urinalysis. No evidence of intestinal obstruction. (see full report) Protonix 40mg IV BID Reglan 5mg IV Q6H (renally dosed) Morphine 1mg IV Q6H PRN Hypertension; controlled - 244/147 on admission Patients BP uncontrolled PRN Hydralazine for SBP over 180/95 HOLD home medications: Clonidine HCl (Catapres) 0.3 mg PO TID [facility] Hydralazine HCl (Apresoline) 50 mg PO Q8H [facility] Losartan Potassium (Cozaar) 50 mg PO DAILY [facility] amlodipine (norvasc) 10mg PO daily Patient is chronically medically non complaint; does not wish to at all exert any effort over his health conditions; states that all orders must be placed through his mother since she is in charge of everything. When questioned what he would do if his mom were to go on vacation, get sick, or her eventual , he was unable to respond to how he would take care of himself. T2DM; chronic; stable -last A1C on last admission last week 10.6 -glucose 400+ on admission, anion gap elevated - AB.45 pH, non-acidotic (not in DKA) - f/u UA for serum ketones, f/u Beta-hydroxybutyric acid -RISS and accuchecks patient was not taking insulin as prescribed at home Hold home dosing as pt NPO: -Lantus 40 units SC HS -Aspart 14 units AC [facility] Chronic Kidney Disease on HD 11/24: Discharge tomorrow after dialysis Nephrology Consult, Dr. Larsen HD MWF - Pt for dialysis today - f/u reccs Leukocytosis 11/24: increased to 14 today, will follow up tomorrow am cbc 11/22: 12 today; will monitor WBC 15.6 on admission, will continue to monitor DM neuropathy HOLD Gabapentin 300mg PO Daily as pt NPO Prophylaxis 11/24: continue regular diet, hold continue with pronotix, hold chemical VTE, SCDS. NPO diet after midnight Contraindication for VTE ppx due to GI bleed Protonix Inj 40 mg IVP Q12H [facility] SCDs patient encouraged to discontinue marijuana use; as per psych note patient has marijuana addiction Meds to beds encouraged for chronic medical non compliance All medical management as per Dr. Chadwick
--- NOTE | 2016-11-23 10:12 | RAD ---
PROCEDURE: Right Foot Radiographs. HISTORY: r/o 5th metatarsal OM COMPARISON: None. FINDINGS: BONES: An old healed fracture is suggested at the base of the 1st metatarsal bone typically at the medial side were cortex appears slightly irregular but appears continuous as well. Diffuse osteopenia suggests potential disuse of the right foot. Osteoporosis is still not completely excluded a mild hallux valgus deformity is appreciated. JOINTS: No dislocation or subluxation. SOFT TISSUES: Normal. OTHER FINDINGS: No definite pattern to suggest osteomyelitis particularly the 5th metatarsal bone. MRI may be performed for greater characterization if clinically warranted. IMPRESSION: No definite pattern of osteomyelitis including at the right 5th metatarsal bone. MRI or three-phase nuclear bone scan can be performed for further characterization. Old healed fracture 1st metatarsal bone is questioned. Diffuse osteopenia suggests disuse or possible osteoporosis. Clinically correlate further.
[2016-11-23] MEDS: Bacitracin Ointment 30 GM TUBE TOP SCH ×2 (10:15→19:30)
[2016-11-23 11:52] LABS: BASO # 0.1 K/uL (0.0-0.2); BASO % 0.8 % (0.0-2.0); EOS # 0.6 K/uL (0.0-0.7); EOS % 4.1 % (0.0-4.0); HEMATOCRIT 34.7 % (35.0-51.0); LYMPH # 1.5 K/uL (1.0-4.3); LYMPH % 10.7 % (20.0-40.0); MEAN CELL VOLUME 91.5 fL (80.0-94.0); MEAN CORPUSCULAR HEMOGLOBIN 29.1 pg (27.0-31.0); MEAN CORPUSCULAR HGB CONC 31.8 g/dL (33.0-37.0); MEAN PLATELET VOLUME 9.1 fL (7.2-11.7); MONO # 1.5 K/uL (0.0-0.8); NRBC % 0.2 % (0.0-2.0); RED CELL DISTRIBUTION WIDTH 19.5 % (11.5-14.5)
[2016-11-23] MEDS ORDERED: Propofol 10 mg/ml Inj (20 ML) ONE (11:54)
[2016-11-23] MEDS ORDERED: Midazolam 2 MG/2 ML VIAL ONE (11:54)
[2016-11-23] MEDS ORDERED: Lidocaine Hydrochloride 5 ML INJ ONE (12:10)
[2016-11-23 12:15] LABS: POTASSIUM 5.7 mmol/L (3.6-5.2)
[2016-11-23 12:17] LABS: BILIRUBIN,TOTAL 0.5 mg/dL (0.2-1.3); TOTAL PROTEIN 6.9 g/dL (6.3-8.3)
[2016-11-23 12:18] LABS: MAGNESIUM 1.9 mg/dL (1.6-2.3)
[2016-11-23] MEDS ORDERED: Sod Polystyrene Sulf 15 gm/60 ml Susp PO ONE (13:26)
--- NOTE | 2016-11-23 14:28 | CP.PCM.PN ---
Subjective - Date & Time of Evaluation Date of Evaluation: 11/23/16 Time of Evaluation: 09:20 - Subjective Subjective: seen and examined EGD for today cancelled due to hyperk yesterday pe: vss gen: nad sclera: anicteric op: clear neck: supple cv: +S1+s2 lungs: cta abd: soft ext: no edema neuro: A+OX3 psych: normal affect skin: no rash imp: recurrent nausea/vomitting,gastroparesis Diabetic chronic Kidney Disease (E11.22) Hypertensive Chronic Kidney Disease (I12.0) with HTN urgency End stage renal disease (N18.6) dependence on hemodialysis (Z99.2) (MWF) via AVF Anemia (D64.9), Hyperphosphatemia (E83.39), Secondary Hyperparathyroidism (E21.1 ), HTN (I12.0) Hyperkalemia Hyponatremia Plan: HD MWF hould improve w/ hd probably naussea/pain contributing to the hyponatremia Continue with Nephrovite 1 tab/day. Given recurrent hyperk will d/c cozaar On MOHINI on renvela f/u EGD Objective - Vital Signs/Intake and Output Vital Signs (last 24 hours): Temp Pulse Resp BP Pulse Ox 98.3 F 74 12 114/59 L 100 11/23/16 12:20 11/23/16 12:50 11/23/16 12:50 11/23/16 12:50 11/23/16 12:50 Intake and Output: 11/23/16 11/23/16 06:59 18:59 Intake Total 0 50 Balance 0 50 - Medications Medications: Current Medications Amlodipine Besylate (Norvasc) 10 mg PO DAILY [facility] Last Admin: 11/23/16 10:15 Dose: Not Given Aspirin (Ecotrin) 81 mg PO DAILY [facility] Last Admin: 11/23/16 10:20 Dose: Not Given Bacitracin (Bacitracin) 1 gm TOP BID [facility] Last Admin: 11/23/16 10:15 Dose: Not Given Clonidine HCl (Catapres) 0.3 mg PO TID [facility] Last Admin: 11/23/16 10:15 Dose: Not Given Epoetin Oumar (Procrit) 3,000 unit IV [facility] Gabapentin (Neurontin) 100 mg PO DAILY [facility] Last Admin: 11/23/16 10:15 Dose: Not Given Hydralazine HCl (Apresoline) 10 mg IVP Q6H PRN PRN Reason: Systolic Blood Pressure Last Admin: 11/19/16 19:34 Dose: 10 mg Hydralazine HCl (Apresoline) 100 mg PO Q8 [facility] Last Admin: 11/23/16 06:48 Dose: Not Given Dextrose (Dextrose 5% In Water 1000 Ml) 1,000 mls @ 40 mls/hr IV .Q24H [facility] Last Admin: 11/23/16 00:00 Dose: Not Given Insulin Glargine (Lantus) 40 unit SC HS [facility] Last Admin: 11/22/16 22:32 Dose: Not Given Insulin Human NPH (Novolin N) 14 unit SC DAILY@0730 [facility] Last Admin: 11/23/16 08:09 Dose: Not Given Insulin Human Regular (Novolin R) 0 unit SC ACHS [facility] PRN Reason: Protocol Last Admin: 11/23/16 11:30 Dose: Not Given Losartan Potassium (Cozaar) 50 mg PO DAILY [facility] Last Admin: 11/23/16 10:15 Dose: Not Given Metoclopramide HCl (Reglan) 5 mg IVP Q6H PRN PRN Reason: Nausea/Vomiting Last Admin: 11/20/16 10:16 Dose: 5 mg Mupirocin (Bactroban Ointment) 1 gm TOP BID [facility] Last Admin: 11/23/16 09:09 Dose: 1 appl Ondansetron HCl (Zofran Inj) 4 mg IVP Q8 PRN PRN Reason: Nausea/Vomiting Last Admin: 11/20/16 05:15 Dose: 4 mg Pantoprazole Sodium (Protonix Inj) 40 mg IVP Q12H [facility] Last Admin: 11/23/16 09:07 Dose: 40 mg Sevelamer Carbonate (Renvela) 2.4 gm PO TIDCC [facility] Last Admin: 11/23/16 13:00 Dose: Not Given Vitamin B Complex/Vit C/Folic Acid (Nephro-Yomi) 1 tab PO 0800 [facility] Last Admin: 11/23/16 08:09 Dose: Not Given - Labs Labs: 11/23/16 11:40 11/23/16 11:40 PT 10.8 SECONDS (9.7-12.2) 11/19/16 09:36 INR 1.0 11/19/16 09:36 APTT 30 SECONDS (21-34) 11/19/16 09:36
[2016-11-23] MEDS: (Lantus) Insulin Glargine, Recombinant SC SCH (22:15)
--- NOTE | 2016-11-24 05:16 | CP.PCM.PN ---
Subjective - Date & Time of Evaluation Date of Evaluation: 11/24/16 Time of Evaluation: 05:09 - Subjective Subjective: [facility] was called at 4:45am. Patient is a 36 year old male with diabetic neuropathy, walks with a walker, who fell in the hallway while getting water. Patient reports he woke up very thirsty, walked with his walker to the nursing station to get water. His walker got stuck when he was turning the corner and he fell onto his knees. He was able to get up and walk back to his room with his nurse by his side. Patient was seen and examined at bedside. He reports feeling fine, no pain in his knees or legs. He states he fell because was in a servin to get water, was groggy from waking up, and not paying attention. Vitals were taken- BP 178/90, HR 87, T97.9, O2 98%. Requested repeat blood pressure after a few minutes. Examined patient- patient has full range of motion in extremities, no tenderness to palpation in the knees bilaterally, and 5/5 strength. Patient denies having chest pain, shortness of breath, dizziness, and leg/knee pain. Patient advised to use call button next time he wants to get up so he can have assistance. Objective - Vital Signs/Intake and Output Vital Signs (last 24 hours): Temp Pulse Resp BP Pulse Ox 97.9 F 86 20 144/76 95 11/24/16 04:30 11/24/16 04:30 11/24/16 04:30 11/24/16 04:30 11/24/16 04:30 Intake and Output: 11/23/16 11/24/16 18:59 06:59 Intake Total 50 480 Balance 50 480 - Medications Medications: Current Medications Amlodipine Besylate (Norvasc) 10 mg PO DAILY [facility] Last Admin: 11/23/16 10:15 Dose: Not Given Aspirin (Ecotrin) 81 mg PO DAILY [facility] Last Admin: 11/23/16 10:20 Dose: Not Given Bacitracin (Bacitracin) 1 gm TOP BID [facility] Last Admin: 11/23/16 19:30 Dose: 1 applic Clonidine HCl (Catapres) 0.3 mg PO TID [facility] Last Admin: 11/23/16 18:45 Dose: 0.3 mg Epoetin Oumar (Procrit) [facility] Gabapentin (Neurontin) 100 mg PO DAILY [facility] Last Admin: 11/23/16 10:15 Dose: Not Given Hydralazine HCl (Apresoline) 10 mg IVP Q6H PRN PRN Reason: Systolic Blood Pressure Last Admin: 11/19/16 19:34 Dose: 10 mg Hydralazine HCl (Apresoline) 100 mg PO Q8 [facility] Last Admin: 11/23/16 22:14 Dose: 100 mg Dextrose (Dextrose 5% In Water 1000 Ml) 1,000 mls @ 40 mls/hr IV .Q24H [facility] Last Admin: 11/23/16 23:49 Dose: Not Given Insulin Glargine (Lantus) 40 unit SC HS [facility] Last Admin: 11/23/16 22:15 Dose: 40 units Insulin Human NPH (Novolin N) 14 unit SC DAILY@0730 [facility] Last Admin: 11/23/16 08:09 Dose: Not Given Insulin Human Regular (Novolin R) 0 unit SC ACHS [facility] PRN Reason: Protocol Last Admin: 11/23/16 22:15 Dose: 3 unit Metoclopramide HCl (Reglan) 5 mg IVP Q6H PRN PRN Reason: Nausea/Vomiting Last Admin: 11/20/16 10:16 Dose: 5 mg Mupirocin (Bactroban Ointment) 1 gm TOP BID [facility] Last Admin: 11/23/16 18:45 Dose: 1 appl Ondansetron HCl (Zofran Inj) 4 mg IVP Q8 PRN PRN Reason: Nausea/Vomiting Last Admin: 11/20/16 05:15 Dose: 4 mg Pantoprazole Sodium (Protonix Inj) 40 mg IVP Q12H [facility] Last Admin: 11/23/16 20:30 Dose: Not Given Sevelamer Carbonate (Renvela) 2.4 gm PO TIDCC [facility] Last Admin: 11/23/16 17:45 Dose: 2.4 gm Vitamin B Complex/Vit C/Folic Acid (Nephro-Yomi) 1 tab PO 0800 [facility] Last Admin: 11/23/16 08:09 Dose: Not Given - Labs Labs: 11/23/16 11:40 11/23/16 11:40 PT 10.8 SECONDS (9.7-12.2) 11/19/16 09:36 INR 1.0 11/19/16 09:36 APTT 30 SECONDS (21-34) 11/19/16 09:36 - Head Exam Head Exam: ATRAUMATIC, NORMAL INSPECTION - Eye Exam Eye Exam: EOMI - Respiratory Exam Respiratory Exam: Clear to Ausculation Bilateral, NORMAL BREATHING PATTERN. absent: Rales, Rhonchi, Wheezes, Respiratory Distress - Cardiovascular Exam Cardiovascular Exam: REGULAR RHYTHM, +S1, +S2. absent: Irregular Rhythm, Murmur - Extremities Exam Extremities Exam: Full ROM, Normal Inspection. absent: Pedal Edema, Tenderness Additional comments: 5/5 strength - Neurological Exam Neurological Exam: Alert, Awake, Oriented x3 - Psychiatric Exam Psychiatric exam: Normal Affect, Normal Mood - Skin Skin Exam: Dry, Intact, Normal Color, Warm
--- NOTE | 2016-11-24 07:16 | CP.PCM.PN ---
Objective - Vital Signs/Intake and Output Vital Signs (last 24 hours): Temp Pulse Resp BP Pulse Ox 97.9 F 86 20 152/88 H 98 11/24/16 04:55 11/24/16 05:16 11/24/16 04:55 11/24/16 05:16 11/24/16 04:55 Intake and Output: 11/24/16 11/24/16 06:59 18:59 Intake Total 598 Balance 598 - Medications Medications: Current Medications Amlodipine Besylate (Norvasc) 10 mg PO DAILY [facility] Last Admin: 11/23/16 10:15 Dose: Not Given Aspirin (Ecotrin) 81 mg PO DAILY [facility] Last Admin: 11/23/16 10:20 Dose: Not Given Bacitracin (Bacitracin) 1 gm TOP BID [facility] Last Admin: 11/23/16 19:30 Dose: 1 applic Clonidine HCl (Catapres) 0.3 mg PO TID [facility] Last Admin: 11/23/16 18:45 Dose: 0.3 mg Epoetin Oumar (Procrit) 3,000 unit IV MWF [facility] Gabapentin (Neurontin) 100 mg PO DAILY [facility] Last Admin: 11/23/16 10:15 Dose: Not Given Hydralazine HCl (Apresoline) 10 mg IVP Q6H PRN PRN Reason: Systolic Blood Pressure Last Admin: 11/19/16 19:34 Dose: 10 mg Hydralazine HCl (Apresoline) 100 mg PO Q8 [facility] Last Admin: 11/24/16 06:13 Dose: 100 mg Dextrose (Dextrose 5% In Water 1000 Ml) 1,000 mls @ 40 mls/hr IV .Q24H [facility] Last Admin: 11/23/16 23:49 Dose: Not Given Insulin Glargine (Lantus) 40 unit SC HS [facility] Last Admin: 11/23/16 22:15 Dose: 40 units Insulin Human NPH (Novolin N) 14 unit SC DAILY@0730 [facility] Last Admin: 11/23/16 08:09 Dose: Not Given Insulin Human Regular (Novolin R) 0 unit SC ACHS [facility] PRN Reason: Protocol Last Admin: 11/23/16 22:15 Dose: 3 unit Metoclopramide HCl (Reglan) 5 mg IVP Q6H PRN PRN Reason: Nausea/Vomiting Last Admin: 11/20/16 10:16 Dose: 5 mg Mupirocin (Bactroban Ointment) 1 gm TOP BID [facility] Last Admin: 11/23/16 18:45 Dose: 1 appl Ondansetron HCl (Zofran Inj) 4 mg IVP Q8 PRN PRN Reason: Nausea/Vomiting Last Admin: 11/20/16 05:15 Dose: 4 mg Pantoprazole Sodium (Protonix Inj) 40 mg IVP Q12H [facility] Last Admin: 11/23/16 20:30 Dose: Not Given Sevelamer Carbonate (Renvela) 2.4 gm PO TIDCC [facility] Last Admin: 11/23/16 17:45 Dose: 2.4 gm Vitamin B Complex/Vit C/Folic Acid (Nephro-Yomi) 1 tab PO 0800 [facility] Last Admin: 11/23/16 08:09 Dose: Not Given - Labs Labs: 11/23/16 11:40 11/23/16 11:40 PT 10.8 SECONDS (9.7-12.2) 11/19/16 09:36 INR 1.0 11/19/16 09:36 APTT 30 SECONDS (21-34) 11/19/16 09:36
[2016-11-24] MEDS: Multivitamin Vitamin B Complex (Nephro-Vite) Tab PO SCH (08:30)
[2016-11-24] MEDS: Sevelamer Carb 2.4 gm/Packet PO SCH ×2 (08:30→12:16)
[2016-11-24] MEDS: (Novolin N) Insulin Human Isophane (NPH) 100 u/ml 10 ml vial SC SCH (08:38)
[2016-11-24] MEDS: (Novolin R) Insulin Human Regular 100 units/ml vial SC SCH ×2 (08:38→12:16)
[2016-11-24 08:39] LABS: BASO # 0.1 K/uL (0.0-0.2); BASO % 0.7 % (0.0-2.0); EOS # 0.4 K/uL (0.0-0.7); EOS % 2.8 % (0.0-4.0); HEMATOCRIT 32.1 % (35.0-51.0); LYMPH # 1.5 K/uL (1.0-4.3); LYMPH % 9.3 % (20.0-40.0); MEAN CELL VOLUME 91.5 fL (80.0-94.0); MEAN CORPUSCULAR HEMOGLOBIN 29.2 pg (27.0-31.0); MEAN PLATELET VOLUME 8.8 fL (7.2-11.7); MONO # 1.4 K/uL (0.0-0.8); MONO % 8.7 % (0.0-10.0); NRBC % 0.1 % (0.0-2.0); PLATELET COUNT 298 K/uL (130-400); RED CELL DISTRIBUTION WIDTH 19.4 % (11.5-14.5); WHITE BLOOD COUNT 15.9 K/uL (4.8-10.8)
[2016-11-24] MEDS ORDERED: Epoetin Alfa Dialysis 3000 UNIT/ML Inj IV SCH (09:00)
[2016-11-24 09:13] LABS: BILIRUBIN,TOTAL 0.4 mg/dL (0.2-1.3); CALCIUM 7.2 mg/dl (8.6-10.4); MAGNESIUM 1.9 mg/dL (1.6-2.3); PHOSPHOROUS 6.5 mg/dL (2.5-4.5); TOTAL PROTEIN 6.3 g/dL (6.3-8.3)
[2016-11-24] MEDS: Bacitracin Ointment 30 GM TUBE TOP SCH (09:47)
[2016-11-24 10:21] LABS: BASOPHIL 1 % (0-2); EOSINOPHIL 3 % (0-4); NEUTROPHIL 82 % (50-75); TOTAL CELLS COUNTED 100
[2016-11-24 10:29] LABS: POTASSIUM 6.8 mmol/L (3.6-5.2)
[2016-11-24 11:51] VITALS: O2SAT 97
[2016-11-24 13:25] VITALS: BP 155/99; PULSE 89; RESP 16; TEMP 98.5
--- NOTE | 2016-11-24 16:51 | PN ---
DATE: LOCATION: [facility], bed A. SUBJECTIVE: This is a 36-year-old male with upper endoscopy with biopsy , seen and examined in rounds today without significant clinical changes with recently loss of balance and fell on his knee as reported. The patient appear to be however awake, alert and oriented. No reported nausea or vomiting earlier this morning. The entire chart is reviewed including, but not limited to most recent lab and radiology study results, current and previous medication list, current and previous medical events, and allergy to medication list discussed again with the staff. PHYSICAL EXAMINATION: GENERAL: A 36-year-old male, awake, alert and oriented. VITAL SIGNS: Afebrile with pulse of 84, respiratory rate 20 to 22, and blood pressure of 150/78. HEENT: Showed pale, dry oral mucous membrane. Nonicteric sclerae. HEART: Positive S1 and S2. LUNGS: Few scattered crepitations, decreased air entry at bases. ABDOMEN: Soft with slight distention, mild generalized tenderness. No mass or organomegaly. No rebound tenderness or guarding. EXTREMITIES: With mild lower extremity edematous changes. No clubbing or cyanosis. NEUROLOGIC: No new reported neurological deficit, sensory or motor. LABORATORY DATA: Today's lab showed white blood cells of 15.9 with low hemoglobin 10.3, hematocrit 32.1 with normal platelet count. Sodium is still low at 129, increased potassium 6.8, BUN elevated to 89 with creatinine 9.4 with blood glucose level of 189, but low calcium 7.2 with increased phosphorus 6.5 with low albumin 3.1. IMPRESSION: 1. Poorly controlled diabetes mellitus. 2. Peptic ulcer disease with diabetic gastroparesis. 3. Recent history of hematemesis. 4. Esophageal ulceration by recent history. 5. Anemia secondary to above. 6. Poorly controlled hypertension. 7. End-stage renal disease, on hemodialysis. 8. Known history of hyperlipidemia with congestive heart failure. 9. Electrolyte imbalance with hyponatremia. SUGGESTIONS: 1. Continue current management. 2. Adjust potassium and phosphorus level. 3. Correct hyponatremia as for his nausea and vomiting. 4. Repeat serum lipase and amylase level. 5. Abdominal ultrasound if his symptoms persist. Alaa Salah-Nathaniel, MD cc: Cassy Hernandez MD [facility] # [id number]
--- NOTE | 2016-11-24 21:52 | CP.PCM.PN ---
Subjective - Date & Time of Evaluation Date of Evaluation: 11/24/16 Time of Evaluation: 14:00 - Subjective Subjective: RENAL FOLLOW UP NOTE seen and examined on dialysis vss gen: nad neck: supple abd: soft ext: no edema neuro: A+OX3 A&P: ESRD/DM/HTN/Anemia/sec hyperparathyroidism/dm gastroparesis seen on hd tolerating it well hyperkalemia should improve with hd anemia stable bp continue current meds continue binders hyponatremia: improve with hd Objective - Vital Signs/Intake and Output Vital Signs (last 24 hours): Temp Pulse Resp BP Pulse Ox 98.5 F 89 16 155/99 H 97 11/24/16 13:24 11/24/16 13:24 11/24/16 13:24 11/24/16 13:24 11/24/16 13:24 Intake and Output: 11/24/16 11/25/16 18:59 06:59 Intake Total 600 Balance 600 - Labs Labs: 11/24/16 08:21 11/24/16 08:21 PT 10.8 SECONDS (9.7-12.2) 11/19/16 09:36 INR 1.0 11/19/16 09:36 APTT 30 SECONDS (21-34) 11/19/16 09:36
--- NOTE | 2016-11-28 17:15 | CARD ---
APPROVED REPORT EKG Measurement Heart [id number] <Conclusion> Sinus tachycardia Possible Left atrial enlargement Nonspecific T wave abnormality Abnormal ECG
--- NOTE | 2016-11-29 10:14 | DS ---
The patient has a chief complaint of nausea and vomiting intractable. The patient needs bedrest, supportive care, IV fluids, Protonix, Zofran. The patient showed further improvement. Discharged to be followed as an outpatient. DIAGNOSES: Chronic renal failure, diabetes, gastroparesis, marijuana addiction. Lucero Chadwick MD
== END 2016-11-24 15:11 | disposition home health service (06) | DRG 73 ==
LOC: C.ER 08:56 → C.9E 10:58 → C.6T 12:28
PROVIDERS: ADMIT Internal Medicine Pulmonary Disease; ATTEND Internal Medicine Pulmonary Disease
PROC: 0DB68ZX Excision of Stomach, Via Natural or Artificial Opening Endoscopic, Diagnostic (ICD-10-PCS; principal; 2016-11-23 11:56)
DX: E11.43 Type 2 diabetes mellitus with diabetic autonomic (poly)neuropathy (principal); N18.6 End stage renal disease; I13.2 Hypertensive heart and chronic kidney disease with heart failure and with stage 5 chronic kidney disease, or end stage renal disease; K92.0 Hematemesis; N17.9 Acute kidney failure, unspecified; E87.2 Acidosis; K22.10 Ulcer of esophagus without bleeding; E11.21 Type 2 diabetes mellitus with diabetic nephropathy; N25.81 Secondary hyperparathyroidism of renal origin; E87.1 Hypo-osmolality and hyponatremia; I50.32 Chronic diastolic (congestive) heart failure; K31.84 Gastroparesis; K29.50 Unspecified chronic gastritis without bleeding; E11.621 Type 2 diabetes mellitus with foot ulcer; E11.22 Type 2 diabetes mellitus with diabetic chronic kidney disease; D64.9 Anemia, unspecified; D72.829 Elevated white blood cell count, unspecified; E78.00 Pure hypercholesterolemia, unspecified; E87.5 Hyperkalemia; F12.10 Cannabis abuse, uncomplicated; F17.210 Nicotine dependence, cigarettes, uncomplicated; K21.0 Gastro-esophageal reflux disease with esophagitis; I16.0 Hypertensive urgency; K21.9 Gastro-esophageal reflux disease without esophagitis; E11.65 Type 2 diabetes mellitus with hyperglycemia; K27.9 Peptic ulcer, site unspecified, unspecified as acute or chronic, without hemorrhage or perforation; L97.519 Non-pressure chronic ulcer of other part of right foot with unspecified severity; L97.529 Non-pressure chronic ulcer of other part of left foot with unspecified severity; Z79.4 Long term (current) use of insulin; Z79.899 Other long term (current) drug therapy; Z99.2 Dependence on renal dialysis

== ENCOUNTER 2016-12-04 12:00 | Inpatient (IN) | payer MEDICARE ==
[2016-12-04 12:01] VITALS: BMI 27.0
[2016-12-04] MEDS ORDERED: Sodium Chloride 0.9% 1,000 ML IV ONE (13:42)
--- NOTE | 2016-12-04 14:04 | C.PDOC ---
History Of Present Illness Patient is a 36 y/o male who presents to the ED with a complaint of abdominal pain since this morning. Pain is diffuse and 8/10, dull, colliky and constant. Patient has a Hx of gastroparesis, DM, HTN, dialysis, and neuropathy. Patient uses walker due to "bad legs". Patient has multiple ED visits and hospitalizations for similar presentations. Patient c/o nausea since yesterday and vomiting multiple times today. . Notes bowel movement today and notes experiencing continuous diarrhea at baseline. Denies any fever or chills. No other physical complaints at this time. Time Seen by Provider: 12/04/16 13:19 Chief Complaint (Nursing): Abdominal Pain History Per: Patient History/Exam Limitations: no limitations Onset/Duration Of Symptoms: Hrs (abdominal pain upon awakening this morning), Days (nauseous since yesterday) Pain Scale Rating Of: 8 Location Of Pain/Discomfort: Diffuse Associated Symptoms: Nausea, Vomiting (5-6x today), Diarrhea. denies: Fever, Chills Last Bowel Movement: Today Past Medical History Vital Signs: Last Vital Signs Temp 98.2 F 12/04/16 12:14 Pulse 94 H 12/04/16 16:01 Resp 20 12/04/16 16:01 BP 198/99 H 12/04/16 16:01 Pulse Ox 99 12/04/16 16:27 - Medical History PMH: Anemia, CHF, Diabetes (type I), Gastritis, HTN, Hypercholesterolemia, Peripheral Edema, End Stage Renal Disease, Chronic Kidney Disease - [facility] Procedures (11/29/16) (11/12/16) BYPASS LEFT BRACHIAL ARTERY TO UPPER ARM VEIN, OPEN APPROACH (02/17/16) DILATION OF LEFT BASILIC VEIN, PERCUTANEOUS APPROACH (11/06/16) EXCISION OF ASCENDING COLON, ENDO, DIAGN (12/19/15) EXCISION OF DESCENDING COLON, ENDO, DIAGN (10/22/16) EXCISION OF DUODENUM, ENDO, DIAGN (03/25/16) EXCISION OF LARGE INTESTINE, ENDO, DIAGN (05/06/16) EXCISION OF MIDDLE ESOPHAGUS, ENDO, DIAGN (03/25/16) EXCISION OF STOMACH, ENDO, DIAGN (11/19/16) EXCISION OF TRANSVERSE COLON, ENDO, DIAGN (05/06/16) INSERTION OF INFUSION DEV INTO SUP VENA CAVA, PERC APPROACH (12/19/15) PERFORMANCE OF URINARY FILTRATION, MULTIPLE (10/28/16) PERFORMANCE OF URINARY FILTRATION, SINGLE (11/06/16) REPOSITION LEFT BASILIC VEIN, OPEN APPROACH (05/25/16) ULTRASONOGRAPHY OF SUPERIOR VENA CAVA, GUIDANCE (12/19/15) Family History: States: Unknown Family Hx, Diabetes, Hypertension - Social History Hx Tobacco Use: Yes (some days) Hx Alcohol Use: No Hx Substance Use: Yes (marijuana 1 per day) - Immunization History Hx Tetanus Toxoid Vaccination: Yes Hx Influenza Vaccination: Yes Hx Pneumococcal Vaccination: Yes Review Of Systems Constitutional: Negative for: Fever, Chills Cardiovascular: Negative for: Chest Pain, Palpitations Gastrointestinal: Positive for: Nausea, Vomiting, Abdominal Pain, Diarrhea Neurological: Negative for: Weakness, Confusion Physical Exam - Physical Exam Appears: Non-toxic, Other (uncomfortable) Skin: Normal Color, Warm, Dry Head: Atraumatic, Normacephalic Oral Mucosa: Moist Chest: Symmetrical Cardiovascular: Rhythm Regular, No Murmur Respiratory: Normal Breath Sounds, No Rales, No Rhonchi, No Stridor Gastrointestinal/Abdominal: Tenderness (diffuse) Rectal: Deferred Back: Normal Inspection Extremity: Other (atrophied bilaterally) Extremity: Bilateral: Other (atrophy) Neurological/Psych: Oriented x3, Normal Speech, Normal Cognition ED Course And Treatment - Laboratory Results Result Diagrams: 12/04/16 14:25 12/04/16 14:50 O2 Sat by Pulse Oximetry: 99 - Other Rad Obstructive Series X-Ray: Interpreted by Me, Viewed By Me Interpretation: IMPRESSION: No acute cardiopulmonary disease. No evidence of acute mechanical bowel obstruction. - Physician Consult Information Time Consulting Physician Contacted: 14:00 Physician Contacted: Lucero Chadwick Outcome Of Conversation: Dr. Chadwick notes patient visits ED 4-5 times per month for gastroparesis; states patient has Marijuana Induced Cyclic Vomiting Syndrome and wants to treat and discharge patient instead of admission. Medical Decision Making Medical Decision Making: Plan: UA, blood work, and obstructive series XRay ordered. Pepcid, Toradol, and Zofran administered. Disposition Discussed With : Lucero Chadwick Counseled Patient/Family Regarding: Studies Performed, Diagnosis - Disposition Disposition: HOSPITALIZED Disposition Time: 16:26 Condition: GUARDED - Clinical Impression Clinical Impression: Intractable abdominal pain, Gastroparesis due to secondary diabetes, Vomiting - Scribe Statement The provider has reviewed the documentation as recorded by the Scribe Cecilia Dubois All medical record entries made by the Raquelibe were at my direction and personally dictated by me. I have reviewed the chart and agree that the record accurately reflects my personal performance of the history, physical exam, medical decision making, and the department course for this patient. I have also personally directed, reviewed, and agree with the discharge instructions and disposition. Decision To Admit - Pt Status Changed To: Hospital Disposition Of: Inpatient - Admit Certification Admit to Inpatient:: After my assessment, the patient will require hospitalization for at least two midnights. This is because of the severity of symptoms shown, intensity of services needed, and/or the medical risk in this patient being treated as an outpatient. - InPatient: Physician Admission Certification:: refractory vomiting and abdominal pain. - . Bed Request Type: Regular Patient Diagnosis: Intractable abdominal pain, Gastroparesis due to secondary diabetes, Vomiting
[2016-12-04 14:56] LABS: BASO # 0.1 K/uL (0.0-0.2); BASO % 0.7 % (0.0-2.0); EOS # 0.1 K/uL (0.0-0.7); EOS % 0.7 % (0.0-4.0); HEMATOCRIT 46.4 % (35.0-51.0); LYMPH % 9.3 % (20.0-40.0); MEAN CELL VOLUME 89.8 fL (80.0-94.0); MEAN CORPUSCULAR HEMOGLOBIN 28.5 pg (27.0-31.0); MEAN CORPUSCULAR HGB CONC 31.7 g/dL (33.0-37.0); MEAN PLATELET VOLUME 10.2 fL (7.2-11.7); MONO # 0.6 K/uL (0.0-0.8); NRBC % 0.1 % (0.0-2.0); PLATELET COUNT 316 K/uL (130-400); RED CELL DISTRIBUTION WIDTH 18.4 % (11.5-14.5); WHITE BLOOD COUNT 11.2 K/uL (4.8-10.8)
--- NOTE | 2016-12-04 15:02 | RAD ---
PROCEDURE: Radiographs of the chest and abdomen (obstructive series) HISTORY: abd pain COMPARISON: No prior. TECHNIQUE: AP radiograph of the chest, with upright and supine radiographs of the abdomen. FINDINGS: CHEST: Lungs: Clear. Cardiovascular: Normal size heart. No pulmonary vascular congestion. Pleura: No pleural fluid. No pneumothorax. Other findings: None. ABDOMEN AND PELVIS: Bowel: Unremarkable bowel gas pattern. No evidence of mechanical obstruction. Free air: None. Bones: Unremarkable. Other findings: None. IMPRESSION: No acute cardiopulmonary disease. No evidence of acute mechanical bowel obstruction.
[2016-12-04 15:22] LABS: EOSINOPHIL 2 % (0-4); NEUTROPHIL 80 % (50-75); TOTAL CELLS COUNTED 100
[2016-12-04 15:25] LABS: POTASSIUM 3.8 mmol/L (3.6-5.2)
[2016-12-04 15:26] LABS: LARGE PLATELETS PRESENT
[2016-12-04 15:27] LABS: GIANT PLATELETS PRESENT
[2016-12-04 15:29] LABS: CALCIUM 8.5 mg/dl (8.6-10.4)
[2016-12-04] MEDS ORDERED: Dextrose 5%/0.45% NS 1,000 ML IV SCH (21:00)
[2016-12-04] MEDS: (Novolog) Insulin Aspart, Recombinant 100 u/ml 10 ml vial SC SCH (21:36)
[2016-12-04 23:03] LABS: RBC URINE 7 /hpf (0-3); URINE BACTERIA OCC (<OCC); URINE BILIRUBIN NEGATIVE (NEGATIVE); URINE COLOR Yellow (YELLOW); URINE GLUCOSE (UA) 3+ mg/dL (Normal); URINE KETONE TRACE mg/dL (NEGATIVE); URINE PROTEIN 3+ mg/dL (NEGATIVE); URINE UROBILINOGEN NORMAL mg/dL (0.2-1.0); WBC URINE 9 /hpf (0-5)
[2016-12-04 23:04] LABS: URINE BLOOD 1+ (NEGATIVE); URINE LEUKOCYTE ESTERASE 1+ Leu/uL (Negative)
[2016-12-05] MEDS: (Novolog) Insulin Aspart, Recombinant 100 u/ml 10 ml vial SC SCH ×4 (08:10→22:04)
[2016-12-05] MEDS ORDERED: (Lantus) Insulin Glargine, Recombinant SC SCH (22:00)
[2016-12-06] MEDS: (Novolog) Insulin Aspart, Recombinant 100 u/ml 10 ml vial SC SCH ×3 (08:01→17:21)
--- NOTE | 2016-12-06 08:53 | HP ---
HISTORY OF PRESENT ILLNESS: The patient admitted to the hospital with a chief complaint of abdominal pain, nausea, vomiting, weakness. The patient is a chronic marijuana smoker. He also has diabetes, hypertension. The patient ___ bed. PHYSICAL EXAMINATION: GENERAL: The patient is awake, alert, oriented. HEENT: Intact vision. NECK: Supple. CHEST: Symmetrical. HEART: Regular. ABDOMEN: Soft. EXTREMITIES: No edema. IMPRESSION AND PLAN: Gastritis, renal failure, diabetes, marijuana addiction. The patient needs bedrest, supportive care. Lucero Chadwick MD
[2016-12-06] MEDS ORDERED: Pneumococcal 23-Valent Vaccine IM ONE (10:00)
[2016-12-06] MEDS ORDERED: Influenza Vaccine 60 mcg/0.5 mL SYR (4YR UP) IM ONE (10:00)
[2016-12-06 11:05] LABS: BASO # 0.1 K/uL (0.0-0.2); MONO # 0.9 K/uL (0.0-0.8)
[2016-12-06 11:13] LABS: POTASSIUM 5.1 mmol/L (3.6-5.2)
[2016-12-06 11:15] LABS: ALB/GLOB RATIO 1.3 (1.0-2.1); BILIRUBIN,TOTAL 0.6 mg/dL (0.2-1.3); CALCIUM 7.5 mg/dl (8.6-10.4); PHOSPHOROUS 7.3 mg/dL (2.5-4.5); TOTAL PROTEIN 6.3 g/dL (6.3-8.3)
[2016-12-06 11:16] LABS: BASO % 0.6 % (0.0-2.0); EOS # 0.2 K/uL (0.0-0.7); EOS % 2.2 % (0.0-4.0); HEMATOCRIT 39.8 % (35.0-51.0); LYMPH # 1.4 K/uL (1.0-4.3); LYMPH % 12.4 % (20.0-40.0); MAGNESIUM 1.9 mg/dL (1.6-2.3); MEAN CELL VOLUME 88.7 fL (80.0-94.0); MEAN CORPUSCULAR HEMOGLOBIN 28.3 pg (27.0-31.0); MEAN CORPUSCULAR HGB CONC 31.9 g/dL (33.0-37.0); MEAN PLATELET VOLUME 9.6 fL (7.2-11.7); RED CELL DISTRIBUTION WIDTH 18.4 % (11.5-14.5); WHITE BLOOD COUNT 11.1 K/uL (4.8-10.8)
--- NOTE | 2016-12-06 13:26 | CP.PCM.PN ---
Subjective - Date & Time of Evaluation Date of Evaluation: 12/06/16 Time of Evaluation: 13:20 - Subjective Subjective: Progress note. Attending: Dr. Chadwick Pt seen and examined at bedside. No acute distress. Pt still nauseous, some diarrhea, non bloody. No fevers, chills. DC home today. Objective - Vital Signs/Intake and Output Vital Signs (last 24 hours): Temp Pulse Resp BP Pulse Ox 97.7 F 71 20 147/77 97 12/06/16 08:54 12/06/16 08:54 12/06/16 08:54 12/06/16 08:54 12/06/16 08:54 Intake and Output: 12/06/16 12/06/16 06:59 18:59 Intake Total 1300 Balance 1300 - Medications Medications: Current Medications Amlodipine Besylate (Norvasc) [address] [facility] Last Admin: 12/06/16 10:37 Dose: Not Given Aspirin (Aspirin Chewable) [address] [facility] Last Admin: 12/06/16 10:27 Dose: 81 mg Clonidine HCl (Catapres) 0.[address] [facility] Last Admin: 12/06/16 13:12 Dose: Not Given Gabapentin (Neurontin) [address] [facility] Last Admin: 12/06/16 10:28 Dose: 300 mg Insulin Aspart (Novolog) 0 unit SC [facility] PRN Reason: Protocol Last Admin: 12/06/16 11:44 Dose: 1 unit Insulin Glargine (Lantus) 20 unit SC [facility] Last Admin: 12/05/16 22:05 Dose: 20 units Ketorolac Tromethamine (Toradol) 30 mg IVP Q8 PRN PRN Reason: Pain, moderate (4-7) Last Admin: 12/05/16 20:55 Dose: 30 mg Ondansetron HCl (Zofran Inj) 4 mg IVP Q6 PRN PRN Reason: Nausea/Vomiting Last Admin: 12/06/16 01:26 Dose: 4 mg Pantoprazole Sodium (Protonix Inj) [address] [facility] Last Admin: 12/06/16 10:35 Dose: 40 mg - Labs Labs: 12/06/16 10:53 12/06/16 10:53 - Constitutional Appears: Non-toxic, No Acute Distress - Head Exam Head Exam: ATRAUMATIC, NORMAL INSPECTION - Eye Exam Eye Exam: EOMI - ENT Exam ENT Exam: Mucous Membranes Moist - Respiratory Exam Respiratory Exam: NORMAL BREATHING PATTERN. absent: Respiratory Distress - Cardiovascular Exam Cardiovascular Exam: +S1, +S2 - GI/Abdominal Exam GI & Abdominal Exam: Tenderness. absent: Guarding, Rigid - Extremities Exam Extremities Exam: Full ROM, Normal Inspection - Neurological Exam Neurological Exam: Alert, Awake, Oriented x3 - Psychiatric Exam Psychiatric exam: Normal Affect, Normal Mood - Skin Skin Exam: Dry, Intact, Normal Color, Warm Assessment and Plan - Assessment and Plan (Free Text) Assessment: This is a 36 yo male with past medical hx of diabetic gastroparesis, chronic marijuana abuse, cyclic vomiting syndrome, numerous admissions this year presenting with 1. Vomiting -secondary to diabetic gastroparesis and cyclic vomiting syndrome -continue toradol for pain -obstructive series x ray negative 2. hx of HTN -continue norvasc 10 -continue clonidine .2 TID 3. hx of CKD -dialysis today 4. hx of DM -ISS -lantus 20 HS -continue gabapentin 5. GI/DVT ppx -continue zofran -cont protonix
[2016-12-06 14:20] VITALS: PULSE 70
--- NOTE | 2016-12-06 15:50 | CP.PCM.CON ---
History of Present Illness - History of Present Illness History of Present Illness: renal consult note seen on hd Past Patient History - Infectious Disease Hx of Infectious Diseases: None - Past Medical History & Family History Past Medical History?: Yes - Past Social History Smoking Status: Light Smoker < 10 Cigarettes Daily - CARDIAC Hx Congestive Heart Failure: Yes Hx Hypercholesterolemia: Yes Hx Hypertension: Yes Hx Peripheral Edema: Yes - PULMONARY Hx Respiratory Disorders: No - NEUROLOGICAL Hx Neurological Disorder: Yes Other/Comment: Bilateral leg neuropathy - HEENT Hx HEENT Problems: Yes Hx Cataracts: Yes Other/Comment: cataract surgery [facility] 10 years ago - RENAL Hx Chronic Kidney Disease: Yes Hx Dialysis: Yes Type of Dialysis Access: L AV shunt Other/Comment: dialysis MWF - ENDOCRINE/METABOLIC Hx Endocrine Disorders: Yes Hx Diabetes Mellitus Type 1: Yes - HEMATOLOGICAL/ONCOLOGICAL Hx Anemia: Yes - INTEGUMENTARY Hx Dermatological Problems: No - MUSCULOSKELETAL/RHEUMATOLOGICAL Hx Musculoskeletal Disorders: Yes Hx Falls: Yes - GASTROINTESTINAL Hx Gastritis: Yes - GENITOURINARY/GYNECOLOGICAL Hx Genitourinary Disorders: No - PSYCHIATRIC Hx Substance Use: Yes (marijuana) - SURGICAL HISTORY Hx Surgeries: Yes Hx Cataract Extraction: Yes (bilateral) Hx Vascular Access Device: Yes Other/Comment: RT.PERMACATH INSERTION 12/30. LT.AV SHUNT CREATION 02/17/16. UNDESCENDED TESTES LT. REMOVED DURING CHILDHOOD - ANESTHESIA Hx Anesthesia: Yes Hx Anesthesia Reactions: No Hx Malignant Hyperthermia: No Meds Home Medications: Home Medication List Medication Instructions Recorded Confirmed Type Aspirin [Aspirin Chewable] 81 mg PO DAILY chew 12/06/16 Rx Gabapentin [Neurontin] 300 mg PO DAILY cap 12/06/16 Rx Insulin Glargine, Recombina 20 unit SC HS unit 12/06/16 Rx [Lantus] amLODIPine [Norvasc] 10 mg PO DAILY tab 12/06/16 Rx cloNIDine [Catapres] 0.2 mg PO TID tab 12/06/16 Rx Allergies/Adverse Reactions: Allergies Allergy/AdvReac Type Severity Reaction Status Date / Time No Known Allergies Allergy Verified 12/04/16 12:09 - Medications Medications: Current Medications Amlodipine Besylate (Norvasc) 10 mg PO DAILY [facility] Last Admin: 12/06/16 10:37 Dose: Not Given Aspirin (Aspirin Chewable) 81 mg PO DAILY [facility] Last Admin: 12/06/16 10:27 Dose: 81 mg Clonidine HCl (Catapres) 0.2 mg PO TID [facility] Last Admin: 12/06/16 13:12 Dose: Not Given Gabapentin (Neurontin) 300 mg PO DAILY [facility] Last Admin: 12/06/16 10:28 Dose: 300 mg Insulin Aspart (Novolog) 0 unit SC [facility] PRN Reason: Protocol Last Admin: 12/06/16 11:44 Dose: 1 unit Insulin Glargine (Lantus) 20 unit SC HS [facility] Last Admin: 12/05/16 22:05 Dose: 20 units Ketorolac Tromethamine (Toradol) 30 mg IVP Q8 PRN PRN Reason: Pain, moderate (4-7) Last Admin: 12/05/16 20:55 Dose: 30 mg Ondansetron HCl (Zofran Inj) 4 mg IVP Q6 PRN PRN Reason: Nausea/Vomiting Last Admin: 12/06/16 01:26 Dose: 4 mg Pantoprazole Sodium (Protonix Inj) 40 mg IVP DAILY [facility] Last Admin: 12/06/16 10:35 Dose: 40 mg Results - Vital Signs Recent Vital Signs: Last Vital Signs Temp 98 F 12/06/16 13:45 Pulse 70 12/06/16 13:45 Resp 18 12/06/16 13:45 BP 106/64 12/06/16 15:25 Pulse Ox 98 12/06/16 13:45 - Labs Result Diagrams: 12/06/16 10:53 12/06/16 10:53 Labs: Laboratory Results - last 24 hr 12/05/16 12/05/16 12/06/16 16:17 21:15 01:45 WBC RBC Hgb Hct MCV MCH MCHC RDW Plt Count MPV Neut % (Auto) Lymph % (Auto) [place] % (Auto) Eos % (Auto) Baso % (Auto) Neut # Lymph # [place] # Eos # Baso # Sodium Potassium Chloride Carbon Dioxide Anion Gap BUN Creatinine Est GFR ( Amer) Est GFR (Non-Af Amer) POC Glucose (mg/dL) 461 H* 359 H 356 H Random Glucose Calcium Phosphorus Magnesium Total Bilirubin AST ALT Alkaline Phosphatase Total Protein Albumin Globulin Albumin/Globulin Ratio 12/06/16 12/06/16 12/06/16 07:08 10:53 10:53 WBC 11.1 H RBC 4.49 Hgb 12.7 D Hct 39.8 MCV 88.7 MCH 28.3 MCHC 31.9 L RDW 18.4 H Plt Count 290 MPV 9.6 Neut % (Auto) 76.8 H Lymph % (Auto) 12.4 L [place] % (Auto) 8.0 Eos % (Auto) 2.2 Baso % (Auto) 0.6 Neut # 8.5 H Lymph # 1.4 [place] # 0.9 H Eos # 0.2 Baso # 0.1 Sodium 129 L Potassium 5.1 Chloride 92 L Carbon Dioxide 23 Anion Gap 20 BUN 63 H Creatinine 9.9 H* D Est GFR ( Amer) 7 Est GFR (Non-Af Amer) 6 POC Glucose (mg/dL) 335 H Random Glucose 160 H Calcium 7.5 L Phosphorus 7.3 H Magnesium 1.9 Total Bilirubin 0.6 AST 16 L D ALT 31 Alkaline Phosphatase 119 Total Protein 6.3 Albumin 3.6 Globulin 2.7 Albumin/Globulin Ratio 1.3 12/06/16 11:31 WBC RBC Hgb Hct MCV MCH MCHC RDW Plt Count MPV Neut % (Auto) Lymph % (Auto) [place] % (Auto) Eos % (Auto) Baso % (Auto) Neut # Lymph # [place] # Eos # Baso # Sodium Potassium Chloride Carbon Dioxide Anion Gap BUN Creatinine Est GFR ( Amer) Est GFR (Non-Af Amer) POC Glucose (mg/dL) 194 H Random Glucose Calcium Phosphorus Magnesium Total Bilirubin AST ALT Alkaline Phosphatase Total Protein Albumin Globulin Albumin/Globulin Ratio
[2016-12-06 17:26] VITALS: BP 102/66
[2016-12-06 17:30] VITALS: RESP 16; TEMP 97.9; O2SAT 99
== END 2016-12-06 19:30 | disposition home or self-care (01) | DRG 74 ==
LOC: C.ER 12:00 → C.9E 16:36 → C.3T 17:16
PROVIDERS: ADMIT Internal Medicine Pulmonary Disease; ATTEND Internal Medicine Pulmonary Disease
DX: E11.43 Type 2 diabetes mellitus with diabetic autonomic (poly)neuropathy (principal); I13.0 Hypertensive heart and chronic kidney disease with heart failure and stage 1 through stage 4 chronic kidney disease, or unspecified chronic kidney disease; I50.9 Heart failure, unspecified; E11.22 Type 2 diabetes mellitus with diabetic chronic kidney disease; K31.84 Gastroparesis; Z79.4 Long term (current) use of insulin; E78.00 Pure hypercholesterolemia, unspecified; F12.20 Cannabis dependence, uncomplicated; G43.A0 Cyclical vomiting, in migraine, not intractable; K29.70 Gastritis, unspecified, without bleeding; N18.9 Chronic kidney disease, unspecified; Z79.899 Other long term (current) drug therapy; F17.210 Nicotine dependence, cigarettes, uncomplicated; D64.9 Anemia, unspecified; G57.93 Unspecified mononeuropathy of bilateral lower limbs

== ENCOUNTER 2016-12-31 01:15 | Inpatient (IN) | payer MEDICARE ==
[2016-12-31 01:15] VITALS: BMI 19.5
[2016-12-31] MEDS ORDERED: Pantoprazole 80 MG in Sodium Chloride 0.9% 100 ML IV STA (01:39)
--- NOTE | 2016-12-31 01:39 | C.PDOC ---
History Of Present Illness Patient presents to ED with complaints of abdominal pain 4/10 and Hematemesis for last couple of hours. Patient is observed putting fingers in throat inducing vomiting but was noted to vomit 100cc of coffee grounds. Patient is currently on dialysis Mondays, Wednesdays and Fridays. Nof/c/cp or palpitations. Time Seen by Provider: 12/31/16 01:36 Chief Complaint (Nursing): GI Problem History Per: Patient History/Exam Limitations: no limitations Onset/Duration Of Symptoms: Hrs Current Symptoms Are (Timing): Still Present Number Of Bleeding Episodes: Unknown Amount of Blood Loss: Small Severity: Moderate Pain Scale Rating Of: 4 Quality Of Discomfort: "Pain" Associated Symptoms: Nausea, Vomiting, Hematemesis, Coffee Ground material Recent travel outside of the [place]: No Additional History Per: Patient Past Medical History Reviewed: Historical Data, Nursing Documentation, Vital Signs Vital Signs: Last Vital Signs Temp 97.7 F 12/31/16 01:25 Pulse 99 H 12/31/16 02:14 Resp 14 12/31/16 02:14 BP 238/111 H 12/31/16 02:14 Pulse Ox 99 12/31/16 02:21 - Medical History PMH: Anemia (Pt denies), CHF, Diabetes (type I), Gastritis, HTN, Hypercholesterolemia, Peripheral Edema, End Stage Renal Disease, Chronic Kidney Disease Surgical History: No Surg Hx - [facility] Procedures (12/18/16) (11/12/16) BYPASS LEFT BRACHIAL ARTERY TO UPPER ARM VEIN, OPEN APPROACH (02/17/16) DILATION OF LEFT BASILIC VEIN, PERCUTANEOUS APPROACH (11/06/16) EXCISION OF ASCENDING COLON, ENDO, DIAGN (12/19/15) EXCISION OF DESCENDING COLON, ENDO, DIAGN (10/22/16) EXCISION OF DUODENUM, ENDO, DIAGN (03/25/16) EXCISION OF LARGE INTESTINE, ENDO, DIAGN (05/06/16) EXCISION OF MIDDLE ESOPHAGUS, ENDO, DIAGN (03/25/16) EXCISION OF STOMACH, ENDO, DIAGN (11/19/16) EXCISION OF TRANSVERSE COLON, ENDO, DIAGN (05/06/16) INSERTION OF INFUSION DEV INTO SUP VENA CAVA, PERC APPROACH (12/19/15) PERFORMANCE OF URINARY FILTRATION, MULTIPLE (10/28/16) PERFORMANCE OF URINARY FILTRATION, SINGLE (11/06/16) REPOSITION LEFT BASILIC VEIN, OPEN APPROACH (05/25/16) ULTRASONOGRAPHY OF SUPERIOR VENA CAVA, GUIDANCE (12/19/15) Family History: States: No Known Family Hx, Diabetes, Hypertension - Social History Hx Tobacco Use: Yes (some days) Hx Alcohol Use: No Hx Substance Use: Yes (marijuana) - Immunization History Hx Tetanus Toxoid Vaccination: Yes Hx Influenza Vaccination: Yes Hx Pneumococcal Vaccination: Yes Review Of Systems Constitutional: Negative for: Fever, Chills Eyes: Negative for: Pain ENT: Negative for: Throat Pain Cardiovascular: Negative for: Chest Pain Respiratory: Negative for: Shortness of Breath Gastrointestinal: Positive for: Vomiting, Hematemesis. Negative for: Diarrhea, Constipation Genitourinary: Negative for: Dysuria, Hematuria Musculoskeletal: Negative for: Back Pain Skin: Negative for: Rash Neurological: Negative for: Weakness Psych: Positive for: Anxiety Physical Exam - Physical Exam Appears: Non-toxic, In Acute Distress, Other (Moderate distress) Skin: Warm, Dry, No Rash Head: Normacephalic Eye(s): bilateral: Normal Inspection Oral Mucosa: Moist Lips: Normal Appearing Neck: Trachea Midline, Supple Chest: Symmetrical Cardiovascular: Rhythm Regular Respiratory: Normal Breath Sounds, No Rales, No Rhonchi, No Wheezing Gastrointestinal/Abdominal: Soft, No Tenderness, Distention, No Guarding, No Rebound, Other (Tympanic to percussion) Back: No CVA Tenderness Extremity: No Tenderness, Other (Shunt on left arm. Good bruit and thrill) Extremity: Bilateral: Atraumatic Pulses: Left Dorsalis Pedis: Normal, Right Dorsalis Pedis: Normal Neurological/Psych: Oriented x3, Normal Speech Gait: Steady ED Course And Treatment - Laboratory Results Result Diagrams: 12/31/16 02:21 12/31/16 01:39 ECG: Interpreted By Me, Viewed By Me ECG Rhythm: Sinus Rhythm (96), Nonspecific Changes O2 Sat by Pulse Oximetry: 99 (RA) Pulse Ox Interpretation: Normal - Radiology CXR: Interpreted by Me, Viewed By Me CXR Interpretation: No: Infiltrates, Fracture, Pnemothorax Disposition Discussed With : Lucero Chadwick Comment: accepted the pt on his service and took over the care at 3:34 AM Doctor Will See Patient In The: Hospital Counseled Patient/Family Regarding: Studies Performed, Diagnosis - Disposition Disposition: HOSPITALIZED Disposition Time: 01:38 Condition: GUARDED Forms: [employer] (Croatian) - POA Present On Arrival: Poor Glycemic Control - Clinical Impression Clinical Impression: Intractable vomiting with nausea, ESRD (end stage renal disease) on dialysis, Gastroparesis due to DM, Uncontrolled hypertension - Scribe Statement The provider has reviewed the documentation as recorded by the Raquelibe Diana Chaudhry All medical record entries made by the Scribe were at my direction and personally dictated by me. I have reviewed the chart and agree that the record accurately reflects my personal performance of the history, physical exam, medical decision making, and the department course for this patient. I have also personally directed, reviewed, and agree with the discharge instructions and disposition. Decision To Admit - Pt Status Changed To: Hospital Disposition Of: Inpatient - Admit Certification Admit to Inpatient:: After my assessment, the patient will require hospitalization for at least two midnights. This is because of the severity of symptoms shown, intensity of services needed, and/or the medical risk in this patient being treated as an outpatient. - InPatient: Physician Admission Certification: I certify that this patient requires 2 or more midnights of care for the following reason:: After my assessment, the patient will require hospitalization for at least two midnights. This is because of the severity of symptoms shown, intensity of services needed, and/or the medical risk in this patient being treated as an outpatient. - . Bed Request Type: Telemetry Admitting Physician: Lucero Chadwick Patient Diagnosis: Intractable vomiting with nausea, ESRD (end stage renal disease) on dialysis, Gastroparesis due to DM, Uncontrolled hypertension
[2016-12-31] MEDS ORDERED: Sodium Chloride 0.9% 100 ML ONE (01:52)
[2016-12-31 02:28] LABS: ALB/GLOB RATIO 0.9 (1.0-2.1); ALKALINE PHOSPHATASE 181 U/L (38-126); ALT/SGPT 43 U/L (21-72); AST/SGOT 35 U/L (17-59); BILIRUBIN,TOTAL 0.7 mg/dL (0.2-1.3); BLOOD UREA NITROGEN 51 mg/dL (9-20); CALCIUM 8.7 mg/dl (8.6-10.4); CARBON DIOXIDE 25 mmol/L (22-30); CHLORIDE 89 mmol/L (98-107); GFR AFRICAN-AMERICAN 13; GLUCOSE,RANDOM 306 mg/dL (75-110); POTASSIUM 5.3 mmol/L (3.6-5.2); SODIUM 132 mmol/L (132-148); TOTAL PROTEIN 9.9 g/dL (6.3-8.3)
[2016-12-31 03:08] LABS: INR 0.9
[2016-12-31 03:10] LABS: BASO # 0.1 K/uL (0.0-0.2); BASO % 0.4 % (0.0-2.0); EOS # 0.2 K/uL (0.0-0.7); EOS % 1.2 % (0.0-4.0); HEMATOCRIT 39.4 % (35.0-51.0); LYMPH # 1.1 K/uL (1.0-4.3); LYMPH % 8.2 % (20.0-40.0); MEAN CELL VOLUME 86.4 fL (80.0-94.0); MEAN CORPUSCULAR HEMOGLOBIN 27.8 pg (27.0-31.0); MEAN CORPUSCULAR HGB CONC 32.2 g/dL (33.0-37.0); MEAN PLATELET VOLUME 9.5 fL (7.2-11.7); MONO # 0.5 K/uL (0.0-0.8); MONO % 3.8 % (0.0-10.0); PLATELET COUNT 282 K/uL (130-400); RED CELL DISTRIBUTION WIDTH 17.9 % (11.5-14.5); WHITE BLOOD COUNT 13.7 K/uL (4.8-10.8)
[2016-12-31] MEDS ORDERED: Labetalol 25mg/5ml Syringe ONE (03:40)
[2016-12-31] MEDS ORDERED: Labetalol 25mg/5ml Syringe IVP STA (03:42)
[2016-12-31 05:05] LABS: EOSINOPHIL 1 % (0-4); NEUTROPHIL 86 % (50-75); REACTIVE LYMPHOCYTES 1 % (0-0); TOTAL CELLS COUNTED 100
[2016-12-31] MEDS ORDERED: Nitroglycerin 2% Ointment Foilpak UD TOP ONE ×2 (05:15→05:19)
[2016-12-31] MEDS ORDERED: Dextrose 5%/0.45% NS 1,000 ML IV ONE (05:44)
[2016-12-31] MEDS ORDERED: Dextrose 5%/0.45% NS 1,000 ML IV SCH (05:45)
[2016-12-31] MEDS: (Novolog) Insulin Aspart, Recombinant 100 u/ml 10 ml vial SC SCH ×4 (07:52→21:59)
--- NOTE | 2016-12-31 08:16 | RAD ---
HISTORY: vomiting COMPARISON: Portable chest 11/12/2016. FINDINGS: LUNGS: No active pulmonary disease. PLEURA: No significant pleural effusion identified, no pneumothorax apparent. CARDIOVASCULAR: Normal. OSSEOUS STRUCTURES: No significant abnormalities. VISUALIZED UPPER ABDOMEN: Normal. OTHER FINDINGS: None. IMPRESSION: No interval acute cardiopulmonary disease appreciated.
[2016-12-31] MEDS ORDERED: Lactated Ringer's 1,000 ML IV ONE (08:45)
[2016-12-31] MEDS ORDERED: Sodium Chloride 0.9% 1,000 ML IV ONE (10:33)
[2016-12-31] MEDS ORDERED: Lidocaine Hydrochloride 10 ML INJ ONE (10:36)
[2016-12-31] MEDS ORDERED: Propofol 10 mg/ml Inj (20 ML) ONE (10:36)
--- NOTE | 2016-12-31 11:06 | CP.PCM.PN ---
Subjective - Date & Time of Evaluation Date of Evaluation: 12/31/16 Time of Evaluation: 11:04 - Subjective Subjective: Medicine Progress Note- Dr Chadwick's service Patient seen and examined. Patient stated this morning that he felt a little better. He has not had any more episodes of vomiting since the ED. Patient went for EGD this morning. No acute bleeding was seen during EGD. Patient's diet will be advanced as tolerated. Objective - Vital Signs/Intake and Output Vital Signs (last 24 hours): Temp Pulse Resp BP Pulse Ox 97.9 F 89 15 156/68 H 99 12/31/16 08:00 12/31/16 09:06 12/31/16 08:30 12/31/16 08:00 12/31/16 08:30 Intake and Output: 12/31/16 12/31/16 06:59 18:59 Intake Total 60 Balance 60 - Medications Medications: Current Medications Amlodipine Besylate (Norvasc) 10 mg PO DAILY [facility] Clonidine HCl (Catapres) 0.3 mg PO TID [facility] Fluconazole (Diflucan) 100 mg PO DAILY [facility] Gabapentin (Neurontin) 300 mg PO DAILY [facility] Dextrose/Sodium Chloride (Dextrose 5%/0.45% Ns 1000 Ml) 1,000 mls @ 60 mls/hr IV .[id number] [facility] Last Admin: 12/31/16 05:48 Dose: 60 mls/hr Insulin Aspart (Novolog) 0 unit SC ACHS [facility] PRN Reason: Protocol Last Admin: 12/31/16 07:52 Dose: Not Given Insulin Glargine (Lantus) 20 unit SC HS [facility] Lisinopril (Zestril) 10 mg PO DAILY [facility] Metoprolol Tartrate (Lopressor) 50 mg PO Q12 [facility] Last Admin: 12/31/16 10:14 Dose: 50 mg Ondansetron HCl (Zofran Inj) 4 mg IVP Q6 PRN PRN Reason: Nausea/Vomiting Pantoprazole Sodium (Protonix Inj) 40 mg IVP DAILY [facility] Last Admin: 12/31/16 10:14 Dose: 40 mg Vitamin B Complex/Vit C/Folic Acid (Nephro-Yomi) 1 tab PO 0800 [facility] - Labs Labs: 12/31/16 02:21 12/31/16 01:39 PT 10.1 SECONDS (9.7-12.2) 12/31/16 02:21 INR 0.9 12/31/16 02:21 APTT 31 SECONDS (21-34) 12/31/16 02:21 - Constitutional Appears: Non-toxic, No Acute Distress - Head Exam Head Exam: ATRAUMATIC, NORMOCEPHALIC - Eye Exam Eye Exam: EOMI, Normal appearance - ENT Exam ENT Exam: Mucous Membranes Moist, Normal Exam - Neck Exam Neck Exam: Normal Inspection - Respiratory Exam Respiratory Exam: Clear to Ausculation Bilateral, NORMAL BREATHING PATTERN. absent: Rhonchi, Wheezes, Respiratory Distress - Cardiovascular Exam Cardiovascular Exam: REGULAR RHYTHM, +S1, +S2. absent: Irregular Rhythm - GI/Abdominal Exam GI & Abdominal Exam: Soft, Normal Bowel Sounds. absent: Distended, Guarding - Extremities Exam Extremities Exam: Normal Inspection - Neurological Exam Neurological Exam: Alert, Awake, Oriented x3 - Psychiatric Exam Psychiatric exam: Normal Affect, Normal Mood - Skin Skin Exam: Dry, Intact, Normal Color, Warm Assessment and Plan - Assessment and Plan (Free Text) Assessment: Pt is a 36 y/o M with hx of ESRD on hemodialysis (MWF) via AVF, chronic anemia , hyperphosphatemia, secondary hyperparathyroidism, Diabetes Mellitus, hypertension, recurrent nausea/vomiting and multiple hospitalization for same came back with nausea/vomiting of coffee ground emesis. GI Bleed; resolved - Witnessed cofee ground emesis x1 in ED - GI Dr Armstrong consulted- help appreciated - Patient went for EGD today: showed no active bleeding. Esophageal mickie seen. pending final report. -Start patient on Diflucan 100mg PO daily - Reglan for DM gastroparesis - Monitor H&H, Blood type and screen, type and cross - Hgb is stable, patient is hemodynamically stable - Protonix 40mg IV daily - Reglan 5mg IV Q6H (renally dosed) - Advance diet as tolerated [facility] - 240/123 on admission - Patients BP uncontrolled as seen on previous admissions Continue home medications: Clonidine HCl (Catapres) 0.3 mg PO TID [facility] Hydralazine HCl (Apresoline) 50 mg PO Q8H [facility] Losartan Potassium (Cozaar) 50 mg PO DAILY [facility] amlodipine (norvasc) 10mg PO daily Patient is chronically medically non complaint; does not wish to at all exert any effort over his health conditions. The risks of uncontrolled HTN, DM and CKD were explained to the patient who states he understands. T2DM; chronic; stable -RISS and accuchecks patient was not taking insulin as prescribed at home Chronic Kidney Disease on HD Nephrology Consult, Dr. Larsen HD MWF - Pt for dialysis today Prophylaxis Contraindication for VTE ppx due to GI bleed Protonix Inj 40 mg IVP daily [facility] SCDs patient encouraged to discontinue marijuana use; as per psych note patient has marijuana addiction Meds to beds encouraged for chronic medical non compliance
--- NOTE | 2016-12-31 15:38 | CP.PCM.CON ---
History of Present Illness - History of Present Illness History of Present Illness: Initial Nephrology Consultation Note Assessment:critical HTN urgency recurrent nausea/vomitting, cyclic emesis syndrome, marijuana abuse, gastroparesis Diabetic chronic Kidney Disease (E11.22) Hypertensive Chronic Kidney Disease (I12.0) End stage renal disease (N18.6) dependence on hemodialysis (Z99.2) (MWF) via AVF Anemia (D64.9), Hyperphosphatemia (E83.39), Secondary Hyperparathyroidism (E21.1 ), HTN (I12.0) Plan: dialysis today as ordered. Continue with Nephrovite 1 tab/day. no MOHINI as HB >11 Continue with phos binders BP control with meds as ordered. Patient on RAAS lola as lisinopril. ? compliance to meds at home. will check sec HTN work up as well with renin/ aldosterone, metanephrines and renal artery doppler. Glycemic control, Dialysis consistent diet Further work up/management as per primary team Dose meds/antibiotics (if needed) for ESRD status. Avoid fleets enema/magnesium based laxatives. consider premeal reglan 5 mg and PPI. pt counselled to abstain from marijuana Thanks for allowing me to participate in care of your patient. Will follow patient with you. Please call if any Qs Dr Brenton Larsen Office: [phone] Chief Complaint; nausea/vomiting Reason for consult; ESRD, HTN HPI: Pt is a 36 y/o M with hx of ESRD on hemodialysis (MWF) via AVF, last dialysis wed, chronic anemia, hyperphosphatemia, secondary hyperparathyroidism, Diabetes Mellitus, hypertension, recurrent nausea/vomiting and multiple hospitalization for same came back with nausea/vomitting. continue to smoke marijuana Denies chest pain, palpitation, shortness of breath, leg swelling. c/o pain abdomen ROS: pt was seen in ICU. he was post EGD and sleepy due to sedation given hence unable to provide much hx except as above in HPI. Physical Examination: General Appearance: Comfortable, in no acute respiratory distress, co-operative . Vitals reviewed and noted as below Head; Atraumatic, normocephalic ENT: no ulcers no thrush. Tongue is midline. Oropharynx: no rash or ulcers. EYES: Pupils are equal, round and reactive to light accommodation. Eye muscles and extraocular movement intact. Sclera is anicteric. Neck; supple no lymphadenopathy, no thyromegaly or bruit Lungs: Normal respiratory rate/effort. Breath sounds bilateral equal and clear Heart: Normal rate. s1s2 normal. No rub or gallop. Extremities: no edema. No varicose veins Neurological: Patient is sleepy at present Skin: Warm and dry. Normal turgor. No rash. Palpitation: Normal elasticity for age Abdomen: Abdomen is soft. Bowel sounds +. There is epigastric abdominal tenderness, no guarding/rigidity or organomegaly Psych: unable MSK: no joint tenderness or swelling. Digits and nails normal, no deformity. : kidney or bladder not palpable. Access: AVF Labs/imaging reviewed. Past medical history, past surgical history, family history, social history, allergy reviewed and noted as below Family Hx: no hx of CKD. Non contributory Past Patient History - Infectious Disease Hx of Infectious Diseases: None - Past Medical History & Family History Past Medical History?: Yes - Past Social History Smoking Status: Light Smoker < 10 Cigarettes Daily - CARDIAC Hx Congestive Heart Failure: Yes Hx Hypercholesterolemia: Yes Hx Hypertension: Yes Hx Peripheral Edema: Yes - PULMONARY Hx Respiratory Disorders: No - NEUROLOGICAL Hx Neurological Disorder: Yes Other/Comment: Bilateral leg neuropathy - HEENT Hx HEENT Problems: Yes Hx Cataracts: Yes Other/Comment: cataract surgery [facility] 10 years ago - RENAL Hx Chronic Kidney Disease: Yes Hx Dialysis: Yes Type of Dialysis Access: L arm AV shunt - ENDOCRINE/METABOLIC Hx Endocrine Disorders: Yes Hx Diabetes Mellitus Type 1: Yes - HEMATOLOGICAL/ONCOLOGICAL Hx Anemia: Yes (Pt denies) - INTEGUMENTARY Hx Dermatological Problems: No - MUSCULOSKELETAL/RHEUMATOLOGICAL Hx Musculoskeletal Disorders: Yes Hx Falls: Yes - GASTROINTESTINAL Hx Gastritis: Yes - GENITOURINARY/GYNECOLOGICAL Hx Genitourinary Disorders: No - PSYCHIATRIC Hx Substance Use: Yes (marijuana) - SURGICAL HISTORY Hx Surgeries: Yes Hx Cataract Extraction: Yes (bilateral) Hx Vascular Access Device: Yes Other/Comment: RT.PERMACATH INSERTION 12/30. LT.AV SHUNT CREATION 02/17/16. UNDESCENDED TESTES LT. REMOVED DURING CHILDHOOD - ANESTHESIA Hx Anesthesia: Yes Hx Anesthesia Reactions: No Hx Malignant Hyperthermia: No Meds Allergies/Adverse Reactions: Allergies Allergy/AdvReac Type Severity Reaction Status Date / Time No Known Allergies Allergy Verified 12/31/16 01:32 - Medications Medications: Current Medications Amlodipine Besylate (Norvasc) 10 mg PO DAILY [facility] Last Admin: 12/31/16 12:09 Dose: 10 mg Clonidine HCl (Catapres) 0.3 mg PO TID [facility] Last Admin: 12/31/16 15:14 Dose: Not Given Fluconazole (Diflucan) 100 mg PO DAILY [facility] Last Admin: 12/31/16 12:09 Dose: 100 mg Gabapentin (Neurontin) 300 mg PO DAILY [facility] Last Admin: 12/31/16 12:09 Dose: 300 mg Hydralazine HCl (Apresoline) 50 mg PO Q8 [facility] Last Admin: 12/31/16 12:09 Dose: 50 mg Dextrose/Sodium Chloride (Dextrose 5%/0.45% Ns 1000 Ml) 1,000 mls @ 60 mls/hr IV .[id number] [facility] Last Admin: 12/31/16 05:48 Dose: 60 mls/hr Insulin Aspart (Novolog) 0 unit SC ACHS [facility] PRN Reason: Protocol Last Admin: 12/31/16 12:20 Dose: 5 unit Insulin Glargine (Lantus) 20 unit SC HS [facility] Lisinopril (Zestril) 10 mg PO DAILY [facility] Last Admin: 12/31/16 12:09 Dose: 10 mg Metoprolol Tartrate (Lopressor) 50 mg PO Q12 [facility] Last Admin: 12/31/16 10:14 Dose: 50 mg Ondansetron HCl (Zofran Inj) 4 mg IVP Q6 PRN PRN Reason: Nausea/Vomiting Pantoprazole Sodium (Protonix Inj) 40 mg IVP DAILY [facility] Last Admin: 12/31/16 10:14 Dose: 40 mg Vitamin B Complex/Vit C/Folic Acid (Nephro-Yomi) 1 tab PO 0800 [facility] Results - Vital Signs Recent Vital Signs: Last Vital Signs Temp 97.6 F 12/31/16 14:35 Pulse 91 H 12/31/16 14:50 Resp 12 12/31/16 14:50 BP 112/52 L 12/31/16 15:20 Pulse Ox 100 12/31/16 15:20 - Labs Result Diagrams: 12/31/16 02:21 12/31/16 01:39 Labs: Laboratory Results - last 24 hr 12/31/16 12/31/16 12/31/16 01:38 01:39 02:19 WBC RBC Hgb Hct MCV MCH MCHC RDW Plt Count MPV Neut % (Auto) Lymph % (Auto) [place] % (Auto) Eos % (Auto) Baso % (Auto) Neut # Lymph # [place] # Eos # Baso # Neutrophils % (Manual) Lymphocytes % (Manual) Reactive Lymphs % Monocytes % (Manual) Eosinophils % (Manual) Toxic Granulation Platelet Estimate Anisocytosis (manual) PT INR APTT Sodium 132 Potassium 5.3 H Chloride 89 L Carbon Dioxide 25 Anion Gap 24 H BUN 51 H Creatinine 6.1 H Est GFR ( Amer) 13 Est GFR (Non-Af Amer) 10 POC Glucose (mg/dL) 305 H Random Glucose 306 H Calcium 8.7 Total Bilirubin 0.7 AST 35 ALT 43 Alkaline Phosphatase 181 H D Total Protein 9.9 H Albumin 4.7 Globulin 5.3 H Albumin/Globulin Ratio 0.9 L Serum Ketones Negative Blood Type O POSITIVE Antibody Screen Negative 12/31/16 12/31/16 12/31/16 02:21 02:21 12:13 WBC 13.7 H RBC 4.56 Hgb 12.7 Hct 39.4 MCV 86.4 D MCH 27.8 MCHC 32.2 L RDW 17.9 H Plt Count 282 MPV 9.5 Neut % (Auto) 86.4 H Lymph % (Auto) 8.2 L [place] % (Auto) 3.8 Eos % (Auto) 1.2 Baso % (Auto) 0.4 Neut # 11.9 H Lymph # 1.1 [place] # 0.5 Eos # 0.2 Baso # 0.1 Neutrophils % (Manual) 86 H Lymphocytes % (Manual) 8 L Reactive Lymphs % 1 H Monocytes % (Manual) 4 Eosinophils % (Manual) 1 Toxic Granulation Present Platelet Estimate Normal Anisocytosis (manual) Slight PT 10.1 INR 0.9 APTT 31 Sodium Potassium Chloride Carbon Dioxide Anion Gap BUN Creatinine Est GFR ( Amer) Est GFR (Non-Af Amer) POC Glucose (mg/dL) 368 H Random Glucose Calcium Total Bilirubin AST ALT Alkaline Phosphatase Total Protein Albumin Globulin Albumin/Globulin Ratio Serum Ketones Blood Type Antibody Screen
--- NOTE | 2016-12-31 18:12 | CARD ---
APPROVED REPORT EKG Measurement Heart [id number] <Conclusion> Normal sinus rhythm Biatrial enlargement Abnormal ECG
[2016-12-31] MEDS: (Lantus) Insulin Glargine, Recombinant SC SCH (22:35)
[2017-01-01 08:10] LABS: BASO # 0.1 K/uL (0.0-0.2); BASO % 0.7 % (0.0-2.0); EOS # 0.4 K/uL (0.0-0.7); EOS % 4.4 % (0.0-4.0); HEMATOCRIT 35.7 % (35.0-51.0); LYMPH # 1.6 K/uL (1.0-4.3); LYMPH % 19.6 % (20.0-40.0); MEAN CELL VOLUME 86.1 fL (80.0-94.0); MEAN CORPUSCULAR HEMOGLOBIN 27.8 pg (27.0-31.0); MEAN CORPUSCULAR HGB CONC 32.3 g/dL (33.0-37.0); MEAN PLATELET VOLUME 9.4 fL (7.2-11.7); MONO # 0.7 K/uL (0.0-0.8); RED CELL DISTRIBUTION WIDTH 17.5 % (11.5-14.5); WHITE BLOOD COUNT 8.3 K/uL (4.8-10.8)
[2017-01-01] MEDS: Multivitamin Vitamin B Complex (Nephro-Vite) Tab PO SCH (08:22)
[2017-01-01] MEDS: (Novolog) Insulin Aspart, Recombinant 100 u/ml 10 ml vial SC SCH ×4 (08:22→21:15)
[2017-01-01 08:53] LABS: CALCIUM 7.2 mg/dl (8.6-10.4); POTASSIUM 5.2 mmol/L (3.6-5.2)
--- NOTE | 2017-01-01 11:35 | CP.PCM.PN ---
Subjective - Date & Time of Evaluation Date of Evaluation: 01/01/17 Time of Evaluation: 11:32 - Subjective Subjective: s: resting comfortably o: VS reviewed Physical Examination: General Appearance: Comfortable, in no acute respiratory distress, co-operative . Vitals reviewed and noted as below Head; Atraumatic, normocephalic ENT: no ulcers no thrush. Tongue is midline. Oropharynx: no rash or ulcers. EYES: Pupils are equal, round and reactive to light accommodation. Eye muscles and extraocular movement intact. Sclera is anicteric. Neck; supple no lymphadenopathy, no thyromegaly or bruit Lungs: Normal respiratory rate/effort. Breath sounds bilateral equal and clear Heart: Normal rate. s1s2 normal. No rub or gallop. Extremities: no edema. No varicose veins Neurological: Patient is sleepy at present Skin: Warm and dry. Normal turgor. No rash. Palpitation: Normal elasticity for age Abdomen: Abdomen is soft. Bowel sounds +. There is epigastric abdominal tenderness, no guarding/rigidity or organomegaly Psych: unable MSK: no joint tenderness or swelling. Digits and nails normal, no deformity. : kidney or bladder not palpable. Access: AVF IMP/PLAN: HTN urgency recurrent nausea/vomitting, cyclic emesis syndrome, marijuana abuse, gastroparesis Diabetic chronic Kidney Disease (E11.22) Hypertensive Chronic Kidney Disease (I12.0) End stage renal disease (N18.6) dependence on hemodialysis (Z99.2) (MWF) via AVF Anemia (D64.9), Hyperphosphatemia (E83.39), Secondary Hyperparathyroidism (E21.1 ), HTN (I12.0) Hyponatremia Plan: dialysis MWF, continue nephrovite no MOHINI as HB >11 Continue with phos binders, phos level ordered F/u secondary hypertensive work up na probably dropping component related to sugars being quite elevated , recc more aggressive control Objective - Vital Signs/Intake and Output Vital Signs (last 24 hours): Temp Pulse Resp BP Pulse Ox 98.0 F 83 20 157/85 H 99 01/01/17 08:09 01/01/17 08:09 01/01/17 08:09 01/01/17 08:09 01/01/17 08:09 Intake and Output: 01/01/17 01/01/17 06:59 18:59 Intake Total 180 Output Total 0 Balance 180 - Medications Medications: Current Medications Amlodipine Besylate (Norvasc) 10 mg PO DAILY [facility] Last Admin: 01/01/17 09:51 Dose: 10 mg Clonidine HCl (Catapres) 0.3 mg PO TID [facility] Last Admin: 01/01/17 09:51 Dose: 0.3 mg Fluconazole (Diflucan) 100 mg PO DAILY [facility] Last Admin: 01/01/17 09:51 Dose: 100 mg Gabapentin (Neurontin) 300 mg PO DAILY [facility] Last Admin: 01/01/17 09:51 Dose: 300 mg Hydralazine HCl (Apresoline) 50 mg PO Q8 [facility] Last Admin: 01/01/17 05:55 Dose: 50 mg Dextrose/Sodium Chloride (Dextrose 5%/0.45% Ns 1000 Ml) 1,000 mls @ 60 mls/hr IV .[id number] [facility] Last Admin: 12/31/16 05:48 Dose: 60 mls/hr Insulin Aspart (Novolog) 0 unit SC ACHS [facility] PRN Reason: Protocol Last Admin: 01/01/17 08:22 Dose: 5 unit Insulin Glargine (Lantus) 20 unit SC HS [facility] Last Admin: 12/31/16 22:35 Dose: 20 unit Ketorolac Tromethamine (Toradol) 30 mg IVP Q8 PRN PRN Reason: Pain, moderate (4-7) Last Admin: 01/01/17 09:51 Dose: 30 mg Lisinopril (Zestril) 10 mg PO DAILY [facility] Last Admin: 01/01/17 09:51 Dose: 10 mg Metoprolol Tartrate (Lopressor) 50 mg PO Q12 [facility] Last Admin: 01/01/17 09:51 Dose: 50 mg Ondansetron HCl (Zofran Inj) 4 mg IVP Q6 PRN PRN Reason: Nausea/Vomiting Pantoprazole Sodium (Protonix Inj) 40 mg IVP DAILY [facility] Last Admin: 01/01/17 09:51 Dose: 40 mg Vitamin B Complex/Vit C/Folic Acid (Nephro-Yomi) 1 tab PO 0800 [facility] Last Admin: 01/01/17 08:22 Dose: 1 tab - Labs Labs: 01/01/17 08:01 01/01/17 08:01 PT 10.1 SECONDS (9.7-12.2) 12/31/16 02:21 INR 0.9 12/31/16 02:21 APTT 31 SECONDS (21-34) 12/31/16 02:21
--- NOTE | 2017-01-01 14:09 | PN ---
LOCATION: [facility], bed A. SUBJECTIVE: This is a 36-year-old male post an emergency upper endoscopy done yesterday due to reported hematemesis seen and examined today without significant reported clinical changes, out of the intensive care unit with intermittent period of nausea but no vomiting. Awake, alert, oriented. The entire chart is reviewed including but not limited to the most recent lab and radiology study results, current and the previous medication list, current and the previous medical events. Today's lab showed normal white blood cells, but dropped hemoglobin of 11.5 with low sodium of 139, increased BUN at 48, creatinine 4.7 with blood glucose level of 371 and low calcium of 7.2. Initial chest x-ray at the time of admission report is seen, negative. PHYSICAL EXAMINATION: GENERAL: A 36-year-old male seen very early today in rounds. VITAL SIGNS: Afebrile with pulse of 86, respiratory rate 20 to 22, blood pressure 142/82. HEENT: Showed pale dry oral mucoid membranes. Nonicteric sclerae. LUNGS: Few scattered crepitations. Decreased air entry at bases. HEART: Positive S1 and S2. ABDOMEN: Soft with slight generalized tenderness. No mass or organomegaly. No rebound tenderness or guarding. RECTAL: The patient refused. EXTREMITIES: Significant clubbing, cyanosis, and edema. NEUROLOGIC: No reported new neurological deficits, sensory or motor. IMPRESSION: 1. Re-exacerbation of peptic ulcer disease. 2. Diabetic gastroparesis with acute gastritis. 3. Diffuse esophageal candidiasis by recent upper endoscopy. 4. Reported upper GI bleeding prior to his admission, none since admission. 5. Known history of but not limited to hypertension, congestive heart failure, hyperlipidemia with peripheral edema syndrome as well as end-stage renal disease. 6. Mild anemia secondary to above. SUGGESTION: 1. Agree with your plan. 2. Reglan IV. 3. Repeat H and H when the patient is more stable clinically. Cassy Hernandez MD cc: Cassy Hernandez MD
[2017-01-01] MEDS: (Lantus) Insulin Glargine, Recombinant SC SCH (21:21)
[2017-01-02] MEDS: Multivitamin Vitamin B Complex (Nephro-Vite) Tab PO SCH (08:15)
[2017-01-02] MEDS: (Novolog) Insulin Aspart, Recombinant 100 u/ml 10 ml vial SC SCH ×4 (08:15→21:23)
--- NOTE | 2017-01-02 12:58 | PN ---
LOCATION: [facility], bed A. SUBJECTIVE: This is a 36-year-old male seen and examined in round out of the intensive care unit, appeared to be awake, alert, oriented. No reported active bleeding, but nausea and some dyspepsia. The entire chart is reviewed including but not limited to the most recent lab and radiology study results, current and the previous medication list, current and the previous medical events. Today's lab showed blood glucose level of 183. Rest of the lab is still pending, and the patient had elevated BUN and creatinine compatible with his known history of chronic renal failure. PHYSICAL EXAMINATION: GENERAL: A 36-year-old male. VITAL SIGNS: Afebrile with pulse of 74, respiratory rate 20 to 22, blood pressure 112/58. HEENT: Showed pale, dry mucoid membranes. Nonicteric sclerae. LUNGS: Few scattered crepitations. Decreased air entry at bases. HEART: Positive S1 and S2. ABDOMEN: Soft with mild distention and slight generalized tenderness. No mass or organomegaly. No rebound tenderness or guarding. RECTAL: The patient refused. EXTREMITIES: Without significant clubbing or cyanosis but slight lower extremity edematous changes. NEUROLOGIC: No reported new neurological deficits, sensory or motor. IMPRESSION: 1. Re-exacerbation of peptic ulcer disease. 2. Chronic renal failure, on hemodialysis. 3. Reported history of hematemesis, none since admission. 4. The patient status post emergency upper endoscopy with biopsy, biopsy report is still pending. 5. Known history of but not limited to hypertension, congestive heart failure, hyperlipidemia, end-stage renal disease as well as diabetes mellitus with peripheral edema syndrome. 6. Mild anemia by history secondary to above. SUGGESTION: 1. Continue current management. 2. Reglan IV up to 20 mg q.6 hours as needed. 3. Cancer markers. 4. Adjust oral intake. 5. Further recommendation to follow. Cassy Hernandez MD cc: Cassy Hernandez MD
[2017-01-02] MEDS: (Lantus) Insulin Glargine, Recombinant SC SCH (22:12)
[2017-01-03] MEDS: (Novolog) Insulin Aspart, Recombinant 100 u/ml 10 ml vial SC SCH ×4 (08:28→21:26)
[2017-01-03] MEDS: Multivitamin Vitamin B Complex (Nephro-Vite) Tab PO SCH (08:39)
--- NOTE | 2017-01-03 08:45 | HP ---
HISTORY OF PRESENT ILLNESS: Mr. Haynes is a 36-year-old male, afebrile, diabetes, hypertension, chronic renal failure. The patient has stated addiction to marijuana and also complaint of abdominal pain, nausea, vomiting. The patient has been using marijuana consistently vomiting. PHYSICAL EXAMINATION: GENERAL: The patient is awake, alert, oriented. VITAL SIGNS: Temperature is 98 and pulse 90. HEENT: Within normal limits. NECK: Supple. CHEST: Symmetrical. HEART: Regular. ABDOMEN: Soft. EXTREMITIES: No edema. IMPRESSION AND PLAN: The patient with gastritis, marijuana abuse, vomiting. The patient needs bedrest, supportive care, and symptomatic treatment. Lucero Chadwick MD
--- NOTE | 2017-01-03 08:52 | HP ---
HISTORY OF PRESENT ILLNESS: Mr. Haynes is a 36-year-old male with history of marijuana addiction, has a chief complaint of cyclical vomiting persistent, was found to have heart irregular, advised admission. The patient has history of insulin-dependent diabetes and hypertension. The patient was counseled on marijuana cessation several times but never stops. PHYSICAL EXAMINATION: GENERAL: The patient is awake, alert and oriented. VITAL SIGNS: Temperature 98, pulse 90. HEENT: Within normal limits. NECK: Supple. CHEST: Symmetrical. HEART: Regular. ABDOMEN: Soft. EXTREMITIES: No edema. ASSESSMENT AND PLAN: Cyclical vomiting secondary to marijuana abuse. Patient was put on bed rest, IV fluids, antiemetics, pain medications. Lucero Chadwick MD
[2017-01-03 10:31] LABS: EOS # 0.7 K/uL (0.0-0.7); LYMPH # 1.1 K/uL (1.0-4.3); LYMPH % 5.7 % (20.0-40.0); MEAN PLATELET VOLUME 10.1 fL (7.2-11.7)
[2017-01-03 10:39] LABS: BASO # 0.1 K/uL (0.0-0.2); BASO % 0.5 % (0.0-2.0); EOS % 3.9 % (0.0-4.0); HEMATOCRIT 29.4 % (35.0-51.0); MEAN CORPUSCULAR HEMOGLOBIN 27.9 pg (27.0-31.0); MEAN CORPUSCULAR HGB CONC 31.7 g/dL (33.0-37.0); MONO % 10.7 % (0.0-10.0); PLATELET COUNT 192 K/uL (130-400); RED CELL DISTRIBUTION WIDTH 18.2 % (11.5-14.5)
[2017-01-03 10:41] LABS: MEAN CELL VOLUME 88.2 fL (80.0-94.0); WHITE BLOOD COUNT 18.7 K/uL (4.8-10.8)
[2017-01-03 11:12] LABS: NEUTROPHIL 77 % (50-75); TOTAL CELLS COUNTED 100
[2017-01-03 11:13] LABS: EOSINOPHIL 5 % (0-4)
[2017-01-03 11:20] LABS: ALB/GLOB RATIO 0.8 (1.0-2.1); BILIRUBIN,TOTAL 0.3 mg/dL (0.2-1.3); CALCIUM 7.5 mg/dl (8.6-10.4); MAGNESIUM 1.9 mg/dL (1.6-2.3); PHOSPHOROUS 6.8 mg/dL (2.5-4.5); TOTAL PROTEIN 6.6 g/dL (6.3-8.3)
[2017-01-03 11:35] LABS: THYROID STIMULATING HORMONE 1.32 mIU/L (0.46-4.68)
[2017-01-03 11:58] LABS: POTASSIUM 7.5 mmol/L (3.6-5.2)
[2017-01-03] MEDS ORDERED: Sod Polystyrene Sulf 15 gm/60 ml Susp PO STA (11:59)
[2017-01-03] MEDS ORDERED: Calcium Gluconate 4.65 mEq/10 ml Inj IVP ONE (12:45)
--- NOTE | 2017-01-03 13:44 | CP.PCM.PN ---
Subjective - Date & Time of Evaluation Date of Evaluation: 01/03/17 Time of Evaluation: 10:00 - Subjective Subjective: Dr. Chadwick note: Patient is evlauted in room. He says he came to the hospital vomiting blood several times. He has had several admissions for vomiting blood which resolves once he is admitted to the hospital. Objective - Vital Signs/Intake and Output Vital Signs (last 24 hours): Temp Pulse Resp BP Pulse Ox 98.9 F 88 16 154/80 H 95 01/03/17 09:30 01/03/17 12:30 01/03/17 12:30 01/03/17 12:30 01/03/17 12:30 - Medications Medications: Current Medications Amlodipine Besylate (Norvasc) 10 mg PO DAILY [facility] Last Admin: 01/03/17 10:06 Dose: Not Given Clonidine HCl (Catapres) 0.3 mg PO TID [facility] Last Admin: 01/03/17 10:05 Dose: Not Given Fluconazole (Diflucan) 100 mg PO DAILY [facility] Last Admin: 01/03/17 10:05 Dose: Not Given Gabapentin (Neurontin) 300 mg PO DAILY [facility] Last Admin: 01/03/17 10:06 Dose: Not Given Hydralazine HCl (Apresoline) 50 mg PO Q8 [facility] Last Admin: 01/03/17 07:48 Dose: Not Given Insulin Aspart (Novolog) 0 unit SC [facility] PRN Reason: Protocol Last Admin: 01/03/17 12:06 Dose: Not Given Insulin Glargine (Lantus) 20 unit SC HS [facility] Last Admin: 01/02/17 22:12 Dose: 20 unit Ketorolac Tromethamine (Toradol) 30 mg IVP Q8H PRN PRN Reason: Pain, moderate (4-7) Last Admin: 01/03/17 03:15 Dose: 30 mg Lisinopril (Zestril) 10 mg PO DAILY [facility] Last Admin: 01/03/17 10:07 Dose: Not Given Metoprolol Tartrate (Lopressor) 50 mg PO Q12 [facility] Last Admin: 01/03/17 10:05 Dose: Not Given Ondansetron HCl (Zofran Inj) 4 mg IVP Q6 PRN PRN Reason: Nausea/Vomiting Pantoprazole Sodium (Protonix Inj) 40 mg IVP DAILY [facility] Last Admin: 01/03/17 10:07 Dose: Not Given Vitamin B Complex/Vit C/Folic Acid (Nephro-Yomi) 1 tab PO 0800 [facility] Last Admin: 01/03/17 08:39 Dose: 1 tab - Labs Labs: 01/03/17 10:20 01/03/17 10:20 PT 10.1 SECONDS (9.7-12.2) 12/31/16 02:21 INR 0.9 12/31/16 02:21 APTT 31 SECONDS (21-34) 12/31/16 02:21 - Constitutional Appears: Unkempt, Chronically Ill - Eye Exam Eye Exam: Normal appearance - Respiratory Exam Respiratory Exam: Clear to Ausculation Bilateral. absent: Rhonchi, Wheezes - Cardiovascular Exam Cardiovascular Exam: REGULAR RHYTHM, RRR. absent: Gallop, Rubs - GI/Abdominal Exam GI & Abdominal Exam: Soft, Normal Bowel Sounds. absent: Tenderness - Extremities Exam Extremities Exam: Normal Inspection - Back Exam Back Exam: NORMAL INSPECTION Assessment and Plan - Assessment and Plan (Free Text) Assessment: Patient's discharge is held till tomorrow until because his very high potassium and WBC count, can discharge tomorrow if the labs are stable. Elevated potassium: K is 7.5 but he is post dialysis, repeat bmp today, follow up that and cmp tommorrow. Leucocytosis: WBC count up to 18.7 with neutrophil bands, will repeat the cbc tomorrow. GI Bleed; resolved -01/03: resolved will discharge Witnessed cofee ground emesis x1 in ED - GI Dr Armstrong consulted- help appreciated - Patient went for EGD today: showed no active bleeding. Esophageal mickie seen. pending final report. -Start patient on Diflucan 100mg PO daily - Reglan for DM gastroparesis - Monitor H&H, Blood type and screen, type and cross - Hgb is stable, patient is hemodynamically stable - Protonix 40mg IV daily - Reglan 5mg IV Q6H (renally dosed) - Advance diet as tolerated Hypertenive Emergency - 12/03: resolved 240/123 on admission - Patients BP uncontrolled as seen on previous admissions Continue home medications: Clonidine HCl (Catapres) 0.3 mg PO TID [facility] Hydralazine HCl (Apresoline) 50 mg PO Q8H [facility] Losartan Potassium (Cozaar) 50 mg PO DAILY [facility] amlodipine (norvasc) 10mg PO daily Patient is chronically medically non complaint; does not wish to at all exert any effort over his health conditions. The risks of uncontrolled HTN, DM and CKD were explained to the patient who states he understands. T2DM; chronic; stable -RISS and accuchecks patient was not taking insulin as prescribed at home Chronic Kidney Disease on HD Nephrology Consult, Dr. Larsen HD MWF - Pt for dialysis today Prophylaxis Contraindication for VTE ppx due to GI bleed Protonix Inj 40 mg IVP daily [facility] SCD[facility] patient encouraged to discontinue marijuana use; as per psych note patient has marijuana addiction Meds to beds encouraged for chronic medical non compliance
--- NOTE | 2017-01-03 14:56 | PN ---
DATE: LOCATION: [facility], bed A. SUBJECTIVE: This is a 36 years old male seen and examined in rounds today with staff in the floor. The entire chart is reviewed including, but not limited to the most recent lab and radiology study results, current and the previous medication list, current and the previous medical events. Patient was found to have to low blood pressure early this morning of 90/44. LABORATORY DATA: Most recent lab results showed leukocytosis of 18.7 with low hemoglobin 9.3, low hematocrit 29.4 with normal platelet count and blood glucose level of 121. PHYSICAL EXAMINATION: GENERAL: A 36 years old male. Denies any recent episodes of nausea and vomiting this morning, but abdominal pain with postprandial abdominal distention. VITAL SIGNS: Afebrile despite his leukocytosis with pulse of 82, respiratory rate 18 to 20, blood pressure 120/64. HEENT: Showed pale, dry oral mucoid membrane, nonicteric sclerae. LUNGS: Few scattered crepitation, decreased air entry at bases. HEART: Positive S1 and S2. ABDOMEN: Soft, bowel sounds are present. No mass or organomegaly. No rebound tenderness or guarding. EXTREMITIES: With mild lower extremity edematous changes. No clubbing or cyanosis. NEUROLOGIC: No reported new neurological deficits, sensory or motor. IMPRESSION: 1. Re-exacerbation of peptic ulcer disease. 2. Recent history of hematemesis, none since admission. 3. Known history of chronic renal failure, on hemodialysis. 4. Diabetes mellitus status post diabetic gastroparesis. 5. Known history of hypertension, congestive heart failure, peripheral edema syndrome as well as hyperlipidemia. 6. Anemia, most likely secondary to above. SUGGESTIONS: 1. Continue current management. 2. Adjust oral intake. 3. Antireflux measure. 4. Guaiac all the stool daily x3. 5. Blood transfusion to keep hemoglobin around 10 g percent. 6. Further recommendation to follow. Cassy Hernandez MD
--- NOTE | 2017-01-03 15:40 | CP.PCM.PN ---
Subjective - Date & Time of Evaluation Date of Evaluation: 01/03/17 Time of Evaluation: 15:37 - Subjective Subjective: Follow up Nephrology Consultation Note Assessment: Stable HTN urgency: resolved recurrent nausea/vomitting, cyclic emesis syndrome, marijuana abuse, gastroparesis Diabetic chronic Kidney Disease (E11.22) Hypertensive Chronic Kidney Disease (I12.0) End stage renal disease (N18.6) dependence on hemodialysis (Z99.2) (MWF) via AVF Anemia (D64.9), Hyperphosphatemia (E83.39), Secondary Hyperparathyroidism (E21.1 ), HTN (I12.0) Hyponatremia, Hyperkalemia, acidosis Plan: dialysis today as ordered. Continue with Nephrovite 1 tab/day. started epogen with HD Continue with phos binders BP control with meds as ordered. Patient on RAAS lola as lisinopril. ? compliance to meds at home. pending sec HTN work up as well with renin/ aldosterone, metanephrines and renal artery doppler. Glycemic control, Dialysis consistent diet Further work up/management as per primary team Dose meds/antibiotics (if needed) for ESRD status. Avoid fleets enema/magnesium based laxatives. consider premeal reglan 5 mg and PPI. pt to abstain from marijuana repeat labs today to assess electrolytes. can defer ca gluconate/kayexylate as he is s/p HD which is expected to resolve lytes abnormalities Thanks for allowing me to participate in care of your patient. Will follow patient with you. Please call if any Qs Dr Brenton Larsen Office: [phone] Chief Complaint; nausea Reason for consult; ESRD, HTN HPI: Pt is a 36 y/o M with hx of ESRD on hemodialysis (MWF) via AVF, last dialysis wed, chronic anemia, hyperphosphatemia, secondary hyperparathyroidism, Diabetes Mellitus, hypertension, recurrent nausea/vomiting and multiple hospitalization for same came back with nausea/vomitting. continue to smoke marijuana ROS; Denies chest pain, palpitation, shortness of breath, leg swelling. c/o pain abdomen but better. Physical Examination: General Appearance: Comfortable, in no acute respiratory distress, co-operative . Vitals reviewed and noted as below Head; Atraumatic, normocephalic ENT: no ulcers no thrush. Tongue is midline. Oropharynx: no rash or ulcers. EYES: Pupils are equal, round and reactive to light accommodation. Eye muscles and extraocular movement intact. Sclera is anicteric. Neck; supple no lymphadenopathy, no thyromegaly or bruit Lungs: Normal respiratory rate/effort. Breath sounds bilateral equal and clear Heart: Normal rate. s1s2 normal. No rub or gallop. Extremities: no edema. No varicose veins Neurological: Patient is alert awake Skin: Warm and dry. Normal turgor. No rash. Palpitation: Normal elasticity for age Abdomen: Abdomen is soft. Bowel sounds +. There is mild epigastric abdominal tenderness, no guarding/rigidity or organomegaly Psych: unable MSK: no joint tenderness or swelling. Digits and nails normal, no deformity. : kidney or bladder not palpable. Access: AVF Labs/imaging reviewed. Past medical history, past surgical history, family history, social history, allergy reviewed and noted as below Family Hx: no hx of CKD. Non contributory Objective - Vital Signs/Intake and Output Vital Signs (last 24 hours): Temp Pulse Resp BP Pulse Ox 98.9 F 88 16 154/80 H 95 01/03/17 09:30 01/03/17 12:30 01/03/17 12:30 01/03/17 12:30 01/03/17 12:30 - Medications Medications: Current Medications Amlodipine Besylate (Norvasc) 10 mg PO DAILY [facility] Last Admin: 01/03/17 10:06 Dose: Not Given Clonidine HCl (Catapres) 0.3 mg PO TID [facility] Last Admin: 01/03/17 14:38 Dose: 0.3 mg Fluconazole (Diflucan) 100 mg PO DAILY [facility] Last Admin: 01/03/17 10:05 Dose: Not Given Gabapentin (Neurontin) 300 mg PO DAILY [facility] Last Admin: 01/03/17 10:06 Dose: Not Given Hydralazine HCl (Apresoline) 50 mg PO Q8 [facility] Last Admin: 01/03/17 14:38 Dose: 50 mg Insulin Aspart (Novolog) 0 unit SC [facility] PRN Reason: Protocol Last Admin: 01/03/17 12:06 Dose: Not Given Insulin Glargine (Lantus) 20 unit SC HS [facility] Last Admin: 01/02/17 22:12 Dose: 20 unit Ketorolac Tromethamine (Toradol) 30 mg IVP Q8H PRN PRN Reason: Pain, moderate (4-7) Last Admin: 01/03/17 03:15 Dose: 30 mg Lisinopril (Zestril) 10 mg PO DAILY [facility] Last Admin: 01/03/17 10:07 Dose: Not Given Metoprolol Tartrate (Lopressor) 50 mg PO Q12 [facility] Last Admin: 01/03/17 10:05 Dose: Not Given Ondansetron HCl (Zofran Inj) 4 mg IVP Q6 PRN PRN Reason: Nausea/Vomiting Pantoprazole Sodium (Protonix Inj) 40 mg IVP DAILY [facility] Last Admin: 01/03/17 10:07 Dose: Not Given Vitamin B Complex/Vit C/Folic Acid (Nephro-Yomi) 1 tab PO 0800 [facility] Last Admin: 01/03/17 08:39 Dose: 1 tab - Labs Labs: 01/03/17 10:20 01/03/17 10:20 PT 10.1 SECONDS (9.7-12.2) 12/31/16 02:21 INR 0.9 12/31/16 02:21 APTT 31 SECONDS (21-34) 12/31/16 02:21
--- NOTE | 2017-01-03 17:53 | CARD ---
APPROVED REPORT EKG Measurement Heart [id number] MI [id number] [id number] <Conclusion> Normal sinus rhythm Nonspecific T wave abnormality Abnormal ECG
[2017-01-03 20:32] LABS: CALCIUM 7.7 mg/dl (8.6-10.4)
[2017-01-03] MEDS ORDERED: Sod Polystyrene Sulf 15 gm/60 ml Susp PO ONE (20:35)
[2017-01-03 20:48] LABS: POTASSIUM 6.2 mmol/L (3.6-5.2)
[2017-01-03] MEDS: (Lantus) Insulin Glargine, Recombinant SC SCH (22:19)
[2017-01-04 01:06] VITALS: O2SAT 97
[2017-01-04] MEDS ORDERED: Dextrose 50% SYRINGE Inj (50 ml) IV STA ×3 (05:30→08:05)
[2017-01-04] MEDS: (Novolog) Insulin Aspart, Recombinant 100 u/ml 10 ml vial SC SCH ×3 (07:36→18:17)
[2017-01-04] MEDS ORDERED: Dextrose 50% SYRINGE Inj (50 ml) ONE (07:55)
[2017-01-04] MEDS ORDERED: Glucagon Recombinant 1 mg Inj SC STA (08:05)
[2017-01-04] MEDS: Multivitamin Vitamin B Complex (Nephro-Vite) Tab PO SCH (08:36)
[2017-01-04 11:21] LABS: ALB/GLOB RATIO 1.1 (1.0-2.1); BILIRUBIN,TOTAL 0.7 mg/dL (0.2-1.3); CALCIUM 7.8 mg/dl (8.6-10.4); MAGNESIUM 1.8 mg/dL (1.6-2.3); PHOSPHOROUS 6.1 mg/dL (2.5-4.5); POTASSIUM 5.4 mmol/L (3.6-5.2); TOTAL PROTEIN 6.7 g/dL (6.3-8.3)
--- NOTE | 2017-01-04 13:35 | CP.PCM.PN ---
Subjective - Date & Time of Evaluation Date of Evaluation: 01/04/17 Time of Evaluation: 13:33 - Subjective Subjective: Follow up Nephrology Consultation Note Assessment: Stable HTN urgency: resolved recurrent nausea/vomitting, cyclic emesis syndrome, marijuana abuse, gastroparesis Diabetic chronic Kidney Disease (E11.22) Hypertensive Chronic Kidney Disease (I12.0) End stage renal disease (N18.6) dependence on hemodialysis (Z99.2) (MWF) via AVF Anemia (D64.9), Hyperphosphatemia (E83.39), Secondary Hyperparathyroidism (E21.1 ), HTN (I12.0) Hyponatremia, Hyperkalemia, acidosis Plan: Pt planned for d/c home today hence will plan for dialysis today as ordered, as his next outpt HD will be on tuesday. Continue with Nephrovite 1 tab/day. started epogen with HD Continue with phos binders as ordered [facility] BP control with meds as ordered. stop RAAS lola as lisinopril due to hyperkalemia ? compliance to meds at home as BP high initially but gets better in hospital quickly. pending sec HTN work up as well with renin/aldosterone, metanephrines and renal artery doppler. Glycemic control, Dialysis consistent diet Further work up/management as per primary team Dose meds/antibiotics (if needed) for ESRD status. Avoid fleets enema/magnesium based laxatives. consider premeal reglan 5 mg and PPI. pt to abstain from marijuana Thanks for allowing me to participate in care of your patient. Will follow patient with you. Please call if any Qs. d/w team Dr rBenton Larsen Office: [phone] Reason for consult; ESRD, HTN HPI: Pt is a 36 y/o M with hx of ESRD on hemodialysis (MWF) via AVF, last dialysis wed, chronic anemia, hyperphosphatemia, secondary hyperparathyroidism, Diabetes Mellitus, hypertension, recurrent nausea/vomiting and multiple hospitalization for same came back with nausea/vomitting. continue to smoke marijuana ROS; Denies chest pain, palpitation, shortness of breath, leg swelling. c/o pain abdomen but better. Physical Examination: General Appearance: Comfortable, in no acute respiratory distress, co-operative . Vitals reviewed and noted as below Head; Atraumatic, normocephalic ENT: no ulcers no thrush. Tongue is midline. Oropharynx: no rash or ulcers. EYES: Pupils are equal, round and reactive to light accommodation. Eye muscles and extraocular movement intact. Sclera is anicteric. Neck; supple no lymphadenopathy, no thyromegaly or bruit Lungs: Normal respiratory rate/effort. Breath sounds bilateral equal and clear Heart: Normal rate. s1s2 normal. No rub or gallop. Extremities: no edema. No varicose veins Neurological: Patient is alert awake Skin: Warm and dry. Normal turgor. No rash. Palpitation: Normal elasticity for age Abdomen: Abdomen is soft. Bowel sounds +. There is mild epigastric abdominal tenderness, no guarding/rigidity or organomegaly Psych: unable MSK: no joint tenderness or swelling. Digits and nails normal, no deformity. : kidney or bladder not palpable. Access: AVF Labs/imaging reviewed. Past medical history, past surgical history, family history, social history, allergy reviewed and noted as below Family Hx: no hx of CKD. Non contributory Objective - Vital Signs/Intake and Output Vital Signs (last 24 hours): Temp Pulse Resp BP Pulse Ox 97.8 F 99 H 20 149/74 97 01/04/17 08:21 01/04/17 11:12 01/04/17 08:21 01/04/17 11:12 01/04/17 08:21 - Medications Medications: Current Medications Amlodipine Besylate (Norvasc) 10 mg PO DAILY [facility] Last Admin: 01/04/17 11:07 Dose: 10 mg Calcium Acetate (Phoslo) 667 mg PO TIDCC [facility] Clonidine HCl (Catapres) 0.3 mg PO TID [facility] Last Admin: 01/04/17 11:07 Dose: 0.3 mg Epoetin Oumar (Procrit) 4,000 unit IV MWF [facility] Fluconazole (Diflucan) 100 mg PO DAILY [facility] Last Admin: 01/04/17 11:07 Dose: 100 mg Gabapentin (Neurontin) 300 mg PO DAILY [facility] Last Admin: 01/04/17 11:07 Dose: 300 mg Hydralazine HCl (Apresoline) 50 mg PO Q8 [facility] Last Admin: 01/04/17 05:05 Dose: Not Given Insulin Aspart (Novolog) 0 unit SC ACHS [facility] PRN Reason: Protocol Last Admin: 01/04/17 11:48 Dose: Not Given Insulin Glargine (Lantus) 20 unit SC HS [facility] Last Admin: 01/03/17 22:19 Dose: 20 unit Ketorolac Tromethamine (Toradol) 30 mg IVP Q8H PRN PRN Reason: Pain, moderate (4-7) Last Admin: 01/04/17 11:13 Dose: 30 mg Metoprolol Tartrate (Lopressor) 50 mg PO Q12 [facility] Last Admin: 01/04/17 11:07 Dose: 50 mg Ondansetron HCl (Zofran Inj) 4 mg IVP Q6 PRN PRN Reason: Nausea/Vomiting Pantoprazole Sodium (Protonix Inj) 40 mg IVP DAILY [facility] Last Admin: 01/04/17 11:06 Dose: 40 mg Vitamin B Complex/Vit C/Folic Acid (Nephro-Yomi) 1 tab PO 0800 [facility] Last Admin: 01/04/17 08:36 Dose: Not Given - Labs Labs: 01/03/17 10:20 01/04/17 10:11 PT 10.1 SECONDS (9.7-12.2) 12/31/16 02:21 INR 0.9 12/31/16 02:21 APTT 31 SECONDS (21-34) 12/31/16 02:21
--- NOTE | 2017-01-04 14:35 | PN ---
DATE: LOCATION: [facility], bed A. SUBJECTIVE: This 36 years old male seen and examined in rounds without significant clinical changes. No reported active bleeding and no reported nausea or vomiting this morning, somehow tolerating oral intake. The entire chart is reviewed including, but not limited to the most recent lab and radiology study results, current and the previous medication list, current and the previous medical events and the patient is still having leukocytosis with low hemoglobin and hematocrit. Today's labs showed sodium increased to 131 with potassium 5.4, BUN of 67, creatinine 7.4, patient on hemodialysis, blood glucose level 209 with low calcium 7.8 with increased phosphorus to 6.1. PHYSICAL EXAMINATION: GENERAL: A 36 years old male, awake, alert, oriented. VITAL SIGNS: Afebrile with pulse of 94, respiratory rate 20 to 22 with blood pressure 130/70. HEENT: Showed pale, dry oral mucoid membrane, nonicteric sclerae. LUNGS: Few scattered crepitation, decreased air entry at bases. HEART: Positive S1 and S2. ABDOMEN: Soft, bowel sounds are present, hyperactive. No mass or organomegaly. No rebound tenderness or guarding. RECTAL: Positive tone. Vault is empty. EXTREMITIES: Without edema, clubbing, or cyanosis. IMPRESSION: 1. Recently reported gastrointestinal bleeding, none. 2. Anemia, most likely secondary to chronic disease. 3. Chronic renal failure, on hemodialysis. 4. Peptic ulcer disease, diabetic gastroparesis. 5. Known history of hypertension, congestive heart failure with hyperlipidemia. SUGGESTION: 1. Continue current management. 2. Adjust oral intake. 3. Increase Reglan to 15 mg IV push q. 6 hours only as needed. 4. Further recommendation to follow. Cassy Hernandez MD
[2017-01-04 14:55] VITALS: PULSE 82; RESP 14; TEMP 98.1
--- NOTE | 2017-01-04 17:11 | CP.PCM.PN ---
Subjective - Date & Time of Evaluation Date of Evaluation: 01/04/17 Time of Evaluation: 10:00 - Subjective Subjective: PGY3 on medicine Dr. Chadwick service: Pt seen and examined at bedside this morning. Pt asymptomatic currently. Pt had hypoglycemia episode this morning and D50 was ordered. However RN gave about 25cc of sodium bicarb instead of D50. Pt was assessed and mammographer Dr. Larsen was contacted and no emergecy dialysis needed. However due to holiday, pt to have extra dialysis session today since dialysis center will be closed tomorrow. Pt to be discharge home with current home medications. Objective - Vital Signs/Intake and Output Vital Signs (last 24 hours): Temp Pulse Resp BP Pulse Ox 98.1 F 82 14 140/75 97 01/04/17 14:00 01/04/17 14:00 01/04/17 14:00 01/04/17 16:10 01/04/17 08:21 - Medications Medications: Current Medications Amlodipine Besylate (Norvasc) 10 mg PO DAILY [facility] Last Admin: 01/04/17 11:07 Dose: 10 mg Calcium Acetate (Phoslo) 667 mg PO TIDCC [facility] Clonidine HCl (Catapres) 0.3 mg PO TID [facility] Last Admin: 01/04/17 14:17 Dose: Not Given Epoetin Oumar (Procrit) 4,000 unit IV MWF [facility] Fluconazole (Diflucan) 100 mg PO DAILY [facility] Last Admin: 01/04/17 11:07 Dose: 100 mg Gabapentin (Neurontin) 300 mg PO DAILY [facility] Last Admin: 01/04/17 11:07 Dose: 300 mg Hydralazine HCl (Apresoline) 50 mg PO Q8 [facility] Last Admin: 01/04/17 14:17 Dose: Not Given Insulin Aspart (Novolog) 0 unit SC ACHS [facility] PRN Reason: Protocol Last Admin: 01/04/17 11:48 Dose: Not Given Insulin Glargine (Lantus) 20 unit SC HS [facility] Last Admin: 01/03/17 22:19 Dose: 20 unit Ketorolac Tromethamine (Toradol) 30 mg IVP Q8H PRN PRN Reason: Pain, moderate (4-7) Last Admin: 01/04/17 11:13 Dose: 30 mg Metoprolol Tartrate (Lopressor) 50 mg PO Q12 [facility] Last Admin: 01/04/17 11:07 Dose: 50 mg Ondansetron HCl (Zofran Inj) 4 mg IVP Q6 PRN PRN Reason: Nausea/Vomiting Pantoprazole Sodium (Protonix Inj) 40 mg IVP DAILY [facility] Last Admin: 01/04/17 11:06 Dose: 40 mg Vitamin B Complex/Vit C/Folic Acid (Nephro-Yomi) 1 tab PO 0800 [facility] Last Admin: 01/04/17 08:36 Dose: Not Given - Labs Labs: 01/03/17 10:20 01/04/17 10:11 PT 10.1 SECONDS (9.7-12.2) 12/31/16 02:21 INR 0.9 12/31/16 02:21 APTT 31 SECONDS (21-34) 12/31/16 02:21 - Constitutional Appears: Non-toxic, No Acute Distress - Head Exam Head Exam: NORMAL INSPECTION, NORMOCEPHALIC - Eye Exam Eye Exam: Normal appearance Pupil Exam: NORMAL ACCOMODATION - Respiratory Exam Respiratory Exam: Clear to Ausculation Bilateral, NORMAL BREATHING PATTERN. absent: Wheezes - Cardiovascular Exam Cardiovascular Exam: REGULAR RHYTHM, +S1, +S2 - GI/Abdominal Exam GI & Abdominal Exam: Soft, Normal Bowel Sounds - Neurological Exam Neurological Exam: Alert, Awake, Oriented x3 Assessment and Plan - Assessment and Plan (Free Text) Assessment: Patient potassium 5.4, however after multiple attempts there were not enough blood for CBC recheck. Pt vitals are stable, will discharge home after extra dialysis session today. GI Bleed; resolved -01/03: resolved will discharge Witnessed cofee ground emesis x1 in ED - GI Dr Armstrong consulted- help appreciated - Patient went for EGD today: showed no active bleeding. Esophageal mickie seen. pending final report. -Start patient on Diflucan 100mg PO daily - Reglan for DM gastroparesis - Monitor H&H, Blood type and screen, type and cross - Hgb is stable, patient is hemodynamically stable - Protonix 40mg IV daily - Reglan 5mg IV Q6H (renally dosed) - Advance diet as tolerated Hypertenive Emergency - 01/03: resolved 240/123 on admission - Patients BP uncontrolled as seen on previous admissions Continue home medications: Clonidine HCl (Catapres) 0.3 mg PO TID [facility] Hydralazine HCl (Apresoline) 50 mg PO Q8H [facility] Losartan Potassium (Cozaar) 50 mg PO DAILY [facility] amlodipine (norvasc) 10mg PO daily Patient is chronically medically non complaint; does not wish to at all exert any effort over his health conditions. The risks of uncontrolled HTN, DM and CKD were explained to the patient who states he understands. T2DM; chronic; stable -RISS and accuchecks patient was not taking insulin as prescribed at home Chronic Kidney Disease on HD Nephrology Consult, Dr. Larsen HD MWF - Pt for extra dialysis today Prophylaxis Contraindication for VTE ppx due to GI bleed Protonix Inj 40 mg IVP daily [facility] SCD[facility] patient encouraged to discontinue marijuana use; as per psych note patient has marijuana addiction Meds to beds encouraged for chronic medical non compliance Management as per Dr. Chadwick.
[2017-01-04 18:17] VITALS: BP 128/49
[2017-01-05] MEDS ORDERED: EPOETIN ALFA 4,000 UNIT/ML ML Dialysis IV SCH (09:00)
== END 2017-01-04 18:40 | disposition home or self-care (01) | DRG 73 ==
LOC: C.ER 01:15 → C.9E 03:32 → C.9I 06:24 → C.5S 22:10
PROVIDERS: ADMIT Internal Medicine Pulmonary Disease; ATTEND Internal Medicine Pulmonary Disease
PROC: 0DB68ZX Excision of Stomach, Via Natural or Artificial Opening Endoscopic, Diagnostic (ICD-10-PCS; principal; 2016-12-31 10:30)
DX: E10.43 Type 1 diabetes mellitus with diabetic autonomic (poly)neuropathy (principal); N18.6 End stage renal disease; I13.2 Hypertensive heart and chronic kidney disease with heart failure and with stage 5 chronic kidney disease, or end stage renal disease; K92.0 Hematemesis; B37.81 Candidal esophagitis; E87.2 Acidosis; E10.22 Type 1 diabetes mellitus with diabetic chronic kidney disease; N25.81 Secondary hyperparathyroidism of renal origin; E87.1 Hypo-osmolality and hyponatremia; K31.84 Gastroparesis; I50.9 Heart failure, unspecified; D63.8 Anemia in other chronic diseases classified elsewhere; Z99.2 Dependence on renal dialysis; K27.9 Peptic ulcer, site unspecified, unspecified as acute or chronic, without hemorrhage or perforation; E78.5 Hyperlipidemia, unspecified; I16.0 Hypertensive urgency; F12.10 Cannabis abuse, uncomplicated; E87.5 Hyperkalemia; E83.39 Other disorders of phosphorus metabolism; K44.9 Diaphragmatic hernia without obstruction or gangrene; K29.70 Gastritis, unspecified, without bleeding; E10.65 Type 1 diabetes mellitus with hyperglycemia

== ENCOUNTER 2017-01-23 21:34 | Inpatient (IN) | payer MEDICARE ==
[2017-01-23 21:34] VITALS: BMI 19.5
[2017-01-23] MEDS ORDERED: Lactated Ringer's 1,000 ML IV ONE (21:48)
--- NOTE | 2017-01-23 21:48 | C.PDOC ---
History Of Present Illness Patient presents to the ER with a complaint of diffuse abdominal pain, nausea, and vomiting after smoking marijuana, associated with occasional diarrhea. Patient has a Hx of ESRD and is a Tuesday, Tuesday, Tuesday dialysis patient; he was recently discharged 5 days ago and found to have a negative CT. Denies fever or chills. Time Seen by Provider: 01/23/17 21:48 Chief Complaint (Nursing): Abdominal Pain History Per: Patient History/Exam Limitations: no limitations Onset/Duration Of Symptoms: Hrs Current Symptoms Are (Timing): Still Present Severity: Moderate Pain Scale Rating Of: 4 Location Of Pain/Discomfort: Diffuse Quality Of Discomfort: Unable To Describe Associated Symptoms: Nausea, Vomiting, Diarrhea. denies: Fever, Chills Exacerbating Factors: None Alleviating Factors: None Recent travel outside of the [place]: No Additional History Per: Patient Past Medical History Reviewed: Historical Data, Nursing Documentation, Vital Signs Vital Signs: Last Vital Signs Temp 98.1 F 01/23/17 21:40 Pulse 84 01/23/17 21:40 Resp 18 01/23/17 21:40 BP 205/102 H 01/23/17 21:40 Pulse Ox 95 01/23/17 22:44 - Medical History PMH: Anemia (Pt denies), CHF, Diabetes (type I), Gastritis, HTN, Hypercholesterolemia, Peripheral Edema, End Stage Renal Disease, Chronic Kidney Disease - [facility] (01/15/17) (11/12/16) BYPASS LEFT BRACHIAL ARTERY TO UPPER ARM VEIN, OPEN APPROACH (02/17/16) DILATION OF LEFT BASILIC VEIN, PERCUTANEOUS APPROACH (11/06/16) EXCISION OF ASCENDING COLON, ENDO, DIAGN (12/19/15) EXCISION OF DESCENDING COLON, ENDO, DIAGN (10/22/16) EXCISION OF DUODENUM, ENDO, DIAGN (03/25/16) EXCISION OF LARGE INTESTINE, ENDO, DIAGN (05/06/16) EXCISION OF MIDDLE ESOPHAGUS, ENDO, DIAGN (03/25/16) EXCISION OF STOMACH, ENDO, DIAGN (12/31/16) EXCISION OF TRANSVERSE COLON, ENDO, DIAGN (05/06/16) INSERTION OF INFUSION DEV INTO SUP VENA CAVA, PERC APPROACH (12/19/15) PERFORMANCE OF URINARY FILTRATION, MULTIPLE (10/28/16) PERFORMANCE OF URINARY FILTRATION, SINGLE (11/06/16) REPOSITION LEFT BASILIC VEIN, OPEN APPROACH (05/25/16) ULTRASONOGRAPHY OF SUPERIOR VENA CAVA, GUIDANCE (12/19/15) Family History: States: No Known Family Hx, Diabetes, Hypertension - Social History Hx Tobacco Use: Yes (some days) Hx Alcohol Use: No Hx Substance Use: Yes (MARIJUANA) - Immunization History Hx Tetanus Toxoid Vaccination: Yes Hx Influenza Vaccination: Yes Hx Pneumococcal Vaccination: Yes Review Of Systems Constitutional: Negative for: Fever, Chills Cardiovascular: Negative for: Chest Pain Respiratory: Negative for: Shortness of Breath Gastrointestinal: Positive for: Nausea, Vomiting, Abdominal Pain, Diarrhea Musculoskeletal: Negative for: Back Pain Skin: Negative for: Rash Neurological: Negative for: Weakness Psych: Positive for: Anxiety Physical Exam - Physical Exam Appears: Non-toxic Skin: Warm, Dry Head: Normacephalic Eye(s): bilateral: Normal Inspection Oral Mucosa: Moist Neck: Supple Chest: Symmetrical, No Tenderness Cardiovascular: Rhythm Regular Respiratory: No Rales, No Rhonchi, No Wheezing Gastrointestinal/Abdominal: Soft, Tenderness (Diffuse), No Guarding, No Rebound Back: Normal Inspection Extremity: No Tenderness, Other (Left arm dialysis graft with good thrill and bruit) Extremity: Bilateral: Atraumatic Pulses: Left Dorsalis Pedis: Normal, Right Dorsalis Pedis: Normal Neurological/Psych: Oriented x3 Gait: With Assistance (Uses walker) ED Course And Treatment - Laboratory Results Result Diagrams: 01/23/17 22:02 01/23/17 22:02 O2 Sat by Pulse Oximetry: 95 (Room air) Pulse Ox Interpretation: Normal Progress Note: Blood work and urinalysis ordered. Dilaudid, pepcid, zofran, and IV fluids administered. Disposition Discussed With : Lucero Chadwick Comment: accepted the pt on his service and took over the care at 10:50 PM Doctor Will See Patient In The: Hospital Counseled Patient/Family Regarding: Studies Performed, Diagnosis - Disposition Disposition: HOSPITALIZED Disposition Time: 21:48 Condition: FAIR Forms: [facility] ([employer]) - POA Present On Arrival: Poor Glycemic Control - Clinical Impression Clinical Impression: Intractable abdominal pain, Gastroparesis due to DM, HTN (hypertension), ESRD needing dialysis, Intractable vomiting with nausea - Scribe Statement The provider has reviewed the documentation as recorded by the Scribe Haryr Mcclure All medical record entries made by the Scribe were at my direction and personally dictated by me. I have reviewed the chart and agree that the record accurately reflects my personal performance of the history, physical exam, medical decision making, and the department course for this patient. I have also personally directed, reviewed, and agree with the discharge instructions and disposition. Decision To Admit - Pt Status Changed To: Hospital Disposition Of: Inpatient - Admit Certification Admit to Inpatient:: After my assessment, the patient will require hospitalization for at least two midnights. This is because of the severity of symptoms shown, intensity of services needed, and/or the medical risk in this patient being treated as an outpatient. - InPatient: Physician Admission Certification:: After my assessment, the patient will require hospitalization for at least two midnights. This is because of the severity of symptoms shown, intensity of services needed, and/or the medical risk in this patient being treated as an outpatient. - . Bed Request Type: Regular Admitting Physician: Lucero Chadwick Patient Diagnosis: Intractable abdominal pain, Gastroparesis due to DM, HTN (hypertension), ESRD needing dialysis, Intractable vomiting with nausea
[2017-01-23 22:05] LABS: BASO # 0.1 K/uL (0.0-0.2); EOS # 0.2 K/uL (0.0-0.7); EOS % 1.2 % (0.0-4.0); HEMATOCRIT 32.9 % (35.0-51.0); LYMPH % 6.9 % (20.0-40.0); MEAN CELL VOLUME 86.3 fL (80.0-94.0); MEAN CORPUSCULAR HEMOGLOBIN 27.2 pg (27.0-31.0); MEAN CORPUSCULAR HGB CONC 31.6 g/dL (33.0-37.0); MEAN PLATELET VOLUME 8.5 fL (7.2-11.7); MONO # 1.2 K/uL (0.0-0.8); MONO % 8.3 % (0.0-10.0); RED CELL DISTRIBUTION WIDTH 19.5 % (11.5-14.5); WHITE BLOOD COUNT 14.3 K/uL (4.8-10.8)
[2017-01-23] MEDS ORDERED: Lactated Ringer's 1,000 ML ONE (22:07)
[2017-01-23 22:09] LABS: PLATELET COUNT 387 K/uL (130-400)
[2017-01-23] MEDS ORDERED: HYDROmorphone 1 mg/ml ISec IVP STA (22:11)
[2017-01-23 22:19] LABS: ALB/GLOB RATIO 0.9 (1.0-2.1); ALKALINE PHOSPHATASE 153 U/L (38-126); ALT/SGPT 41 U/L (21-72); AST/SGOT 31 U/L (17-59); BILIRUBIN,TOTAL 0.8 mg/dL (0.2-1.3); BLOOD UREA NITROGEN 52 mg/dL (9-20); CALCIUM 8.1 mg/dl (8.6-10.4); CARBON DIOXIDE 35 mmol/L (22-30); CHLORIDE 90 mmol/L (98-107); GFR AFRICAN-AMERICAN 13; GLUCOSE,RANDOM 201 mg/dL (75-110); POTASSIUM 4.7 mmol/L (3.6-5.2); SODIUM 138 mmol/L (132-148); TOTAL PROTEIN 8.5 g/dL (6.3-8.3)
[2017-01-23] MEDS ORDERED: HYDROmorphone 1 mg/ml ISec ONE (22:20)
[2017-01-23 22:23] LABS: VENOUS BLOOD GAS BASE EXCESS 7.5 mmol/L (0.0-2.0); VENOUS BLOOD GAS PCO2 47 mmHg (40-60); VENOUS BLOOD PH 7.45 (7.32-7.43)
[2017-01-23 22:29] LABS: EOSINOPHIL 3 % (0-4); GIANT PLATELETS PRESENT; NEUTROPHIL 82 % (50-75); TOTAL CELLS COUNTED 100
[2017-01-23] MEDS ORDERED: Dextrose 5%/0.45% NS 1,000 ML IV SCH (23:15)
[2017-01-23] MEDS ORDERED: Dextrose 5%-0.225% NS 1,000 ML IV ONE (23:18)
[2017-01-24] MEDS ORDERED: Dextrose 50% SYRINGE Inj (50 ml) IV PRN (07:15)
[2017-01-24] MEDS ORDERED: Glucagon Recombinant 1 mg Inj IM PRN (07:15)
[2017-01-24] MEDS ORDERED: Multivitamin Vitamin B Complex (Nephro-Vite) Tab PO SCH (08:00)
[2017-01-24] MEDS: (Novolog) Insulin Aspart, Recombinant 100 u/ml 10 ml vial SC SCH ×3 (09:21→18:26)
[2017-01-24] MEDS: POLYETHYLENE GLYCOL 3350 17 GM/Dose PACKET PO SCH ×2 (09:33→18:26)
--- NOTE | 2017-01-24 09:46 | CP.PCM.PN ---
Subjective - Date & Time of Evaluation Date of Evaluation: 01/24/17 Time of Evaluation: 09:48 - Subjective Subjective: PGY2 Medicine Note for Dr. Chadwick; all management as per Dr. Chadwick Pt seen and examined at bedside; patient has sheets pulled over his head and really does not want to talk to me; patient denies all symptoms today and just wants to be left alone. Objective - Vital Signs/Intake and Output Vital Signs (last 24 hours): Temp Pulse Resp BP Pulse Ox 98.4 F 85 22 170/91 H 69 L 01/24/17 06:05 01/24/17 09:18 01/24/17 06:58 01/24/17 09:18 01/24/17 06:05 - Medications Medications: Current Medications Acetaminophen (Tylenol 325mg Tab) 650 mg PO Q6 PRN PRN Reason: Pain, Mild (1-3) Last Admin: 01/23/17 23:29 Dose: 650 mg Amlodipine Besylate (Norvasc) 10 mg PO DAILY [facility] Last Admin: 01/24/17 06:23 Dose: 10 mg Cinacalcet (Sensipar) 30 mg PO DAILY [facility] Last Admin: 01/24/17 09:20 Dose: 30 mg Clonidine HCl (Catapres) 0.2 mg PO TID [facility] Last Admin: 01/24/17 09:22 Dose: 0.2 mg Dextrose (Dextrose 50% Inj) 0 ml IV STAT PRN; Protocol PRN Reason: Hypoglycemia Protocol Dextrose (Glutose 15) 0 gm PO ONCE PRN; Protocol PRN Reason: Hypoglycemia Protocol Dicyclomine HCl (Bentyl) 10 mg PO QID PRN PRN Reason: GI distress Famotidine (Pepcid) 20 mg PO DAILY [facility] Fluconazole (Diflucan) 100 mg PO DAILY [facility] Last Admin: 01/24/17 09:19 Dose: 100 mg Gabapentin (Neurontin) 300 mg PO DAILY [facility] Last Admin: 01/24/17 09:21 Dose: 300 mg Glucagon (Glucagen Diagnostic Kit) 0 mg IM STAT PRN; Protocol PRN Reason: Hypoglycemia Protocol Hydralazine HCl (Apresoline) 25 mg PO Q6 [facility] Last Admin: 01/24/17 05:17 Dose: 25 mg Dextrose/Sodium Chloride (Dextrose 5%/0.45% Ns 1000 Ml) 1,000 mls @ 40 mls/hr IV .Q24H [facility] Last Admin: 01/23/17 23:21 Dose: 40 mls/hr Dextrose (Dextrose 5% In Water 1000 Ml) 1,000 mls @ 0 mls/hr IV .Q0M PRN; Protocol; Per Protocol PRN Reason: Hypoglycemia Protocol Insulin Aspart (Novolog) 0 unit SC ACTID [facility] PRN Reason: Protocol Last Admin: 01/24/17 09:21 Dose: 1 unit Insulin Glargine (Lantus) 10 unit SC HS [facility] Ketorolac Tromethamine (Toradol) 30 mg IVP Q8 PRN PRN Reason: Pain, Mild (1-3) Lisinopril (Zestril) 10 mg PO DAILY [facility] Metoclopramide HCl (Reglan) 10 mg PO Q8 [facility] Last Admin: 01/24/17 05:17 Dose: 10 mg Metoprolol Tartrate (Lopressor) 50 mg PO Q12 [facility] Last Admin: 01/24/17 09:07 Dose: Not Given Morphine Sulfate (Morphine) 2 mg IVP Q4 PRN PRN Reason: Pain, moderate (4-7) Last Admin: 01/24/17 05:17 Dose: 2 mg Ondansetron HCl (Zofran Inj) 4 mg IVP Q6 PRN PRN Reason: Nausea/Vomiting Last Admin: 01/24/17 04:00 Dose: 4 mg Pantoprazole Sodium (Protonix Inj) 40 mg IVP DAILY [facility] Last Admin: 01/24/17 09:21 Dose: 40 mg Polyethylene Glycol (Miralax) 17 gm PO BID [facility] Last Admin: 01/24/17 09:33 Dose: Not Given Sevelamer Carbonate (Renvela) 2,400 mg PO TIDCC [facility] Last Admin: 01/24/17 09:20 Dose: 2,400 mg Vitamin B Complex/Vit C/Folic Acid (Nephro-Yomi) 1 tab PO 0800 [facility] Last Admin: 01/24/17 09:21 Dose: 1 tab - Labs Labs: 01/23/17 22:02 01/23/17 22:02 - Constitutional Appears: Non-toxic - Head Exam Head Exam: NORMOCEPHALIC - ENT Exam ENT Exam: Mucous Membranes Moist - Neck Exam Neck Exam: Full ROM - Respiratory Exam Respiratory Exam: Clear to Ausculation Bilateral - Cardiovascular Exam Cardiovascular Exam: REGULAR RHYTHM - GI/Abdominal Exam GI & Abdominal Exam: Soft - Extremities Exam Extremities Exam: Full ROM - Back Exam Back Exam: absent: CVA tenderness (L), CVA tenderness (R) - Neurological Exam Neurological Exam: Alert, Awake, Normal Gait, Oriented x3 - Psychiatric Exam Psychiatric exam: Normal Affect - Skin Skin Exam: Warm Assessment and Plan - Assessment and Plan (Free Text) Assessment: Patient is admitted for medical non compliance and ESRD Hypertenive Emergency 2/2 to non compliance; is controlled when patient takes medicine - patient chronically does not take his medicine; patient has been told multiple times that he needs to take charge of his health and he places blame on his elderly mother for the administration of medication Clonidine HCl (Catapres) 0.3 mg PO TID [facility] Hydralazine HCl (Apresoline) 50 mg PO Q8H [facility] Losartan Potassium (Cozaar) 50 mg PO DAILY [facility] amlodipine (norvasc) 10mg PO daily Patient is chronically medically non complaint; does not wish to at all exert any effort over his health conditions. The risks of uncontrolled HTN, DM and CKD were explained to the patient who states he understands and states "please tell my mother". T2DM; chronic; stable -RISS and accuchecks patient was not taking insulin as prescribed at home again patient is chronically non compliant Chronic Kidney Disease on HD Nephrology Consult, Dr. Quezada HD MWF - Pt for dialysis today Chronic Abdominal Pain -patient abuses marijuana which exacerbates his abdominal pain; has been told multiple times to stop but does not wish to Dr. Armstrong; GI; appreciate recs Prophylaxis Contraindication for VTE ppx due to GI bleed Protonix Inj 40 mg IVP daily [facility] SCDs patient encouraged to discontinue marijuana use; as per psych note patient has marijuana addiction Meds to beds encouraged for chronic medical non compliance Management as per Dr. Chadwick.
[2017-01-24 11:15] LABS: BASO # 0.1 K/uL (0.0-0.2); BASO % 0.8 % (0.0-2.0); EOS # 0.2 K/uL (0.0-0.7); EOS % 1.7 % (0.0-4.0); HEMATOCRIT 28.8 % (35.0-51.0); LYMPH # 0.9 K/uL (1.0-4.3); LYMPH % 7.4 % (20.0-40.0); MEAN CELL VOLUME 85.5 fL (80.0-94.0); MEAN CORPUSCULAR HEMOGLOBIN 27.2 pg (27.0-31.0); MEAN CORPUSCULAR HGB CONC 31.8 g/dL (33.0-37.0); MEAN PLATELET VOLUME 8.6 fL (7.2-11.7); MONO % 7.8 % (0.0-10.0); PLATELET COUNT 354 K/uL (130-400); WHITE BLOOD COUNT 12.5 K/uL (4.8-10.8)
[2017-01-24 11:27] LABS: ALB/GLOB RATIO 1.2 (1.0-2.1); BILIRUBIN,TOTAL 0.7 mg/dL (0.2-1.3); CALCIUM 7.4 mg/dl (8.6-10.4); POTASSIUM 4.5 mmol/L (3.6-5.2); TOTAL PROTEIN 6.4 g/dL (6.3-8.3)
[2017-01-24 11:45] LABS: BASOPHIL 1 % (0-2); EOSINOPHIL 1 % (0-4); NEUTROPHIL 86 % (50-75); TOTAL CELLS COUNTED 100
[2017-01-24 11:46] LABS: GIANT PLATELETS PRESENT
--- NOTE | 2017-01-24 15:03 | CP.PCM.CON ---
History of Present Illness - History of Present Illness History of Present Illness: Initial Nephrology Consultation Note Assessment: Stable recurrent nausea/vomitting, cyclic emesis syndrome, marijuana abuse, gastroparesis Diabetic chronic Kidney Disease (E11.22) Hypertensive Chronic Kidney Disease (I12.0) End stage renal disease (N18.6) dependence on hemodialysis (Z99.2) (MWF) via AVF Anemia (D64.9), Hyperphosphatemia (E83.39), Secondary Hyperparathyroidism (E21.1 ), HTN (I12.0) Plan: dialysis today as ordered. Continue with Nephrovite 1 tab/day. Hb declined hence ordered for epogen with HD Continue with phos binders BP control with meds as ordered. on lisinopril Glycemic control, Dialysis consistent diet Further work up/management as per primary team Dose meds/antibiotics (if needed) for ESRD status. Avoid fleets enema/magnesium based laxatives. premeal reglan 5 mg and PPI. pt counselled to abstain from marijuana Thanks for allowing me to participate in care of your patient. Will follow patient with you. Please call if any Qs Dr Brenton Larsen Office: [phone] Chief Complaint; nausea/vomiting Reason for consult; ESRD, HTN HPI: Pt is a 36 y/o M with hx of ESRD on hemodialysis (MWF) via AVF, chronic anemia, hyperphosphatemia, secondary hyperparathyroidism, Diabetes Mellitus, hypertension, recurrent nausea/vomiting and multiple hospitalization for same, came back with nausea/vomitting. continue to smoke marijuana Denies chest pain, palpitation, shortness of breath, leg swelling c/o pain upper abdomen and nausea x 1 day ROS: Constitutional Symptoms: Denies fever. No chills. No Recent Weight Changes Eyes: denies change in vision, denies watery eyes, denies double vision Ears/Nose/Mouth/Throat: Denies Abnormal Taste. No Bad breath or Bad Taste. Cardiovascular: No chest pain. There is no shortness of breath. No palpitations. Pulmonary: No shortness of breath or cough. Gastrointestinal: c/o abdominal pain now c/o nausea. c/o vomiting. Denies change in bowel habits. Denies Bleeding Genitourinary: makes urine. No associated pain or blood. Neurological: Denies headaches. No dizziness. Denies loss of balance. Denies weakness, denies tingling/numbness Dermatological: No Rash or Bruising or ulcers. Psychiatric: Denies Anxiety. No depression. Denies hallucinations. Rheumatological: No joint pain. Denies Joint swelling Endocrine: Denies over tiredness. Denies Fatigue and denies Heat/Cold Intolerance. All other negative. Physical Examination: seen on HD General Appearance: Comfortable, in no acute respiratory distress, co-operative . Vitals reviewed and noted as below Head; Atraumatic, normocephalic ENT: no ulcers no thrush. Tongue is midline. Oropharynx: no rash or ulcers. EYES: Pupils are equal, round and reactive to light accommodation. Eye muscles and extraocular movement intact. Sclera is anicteric. Neck; supple no lymphadenopathy, no thyromegaly or bruit Lungs: Normal respiratory rate/effort. Breath sounds bilateral equal and clear Heart: Normal rate. s1s2 normal. No rub or gallop. Extremities: no edema. No varicose veins Neurological: Patient is alert, awake and oriented to person, place and time. No focal deficit. Strength bilateral appropriate and equal Skin: Warm and dry. Normal turgor. No rash. Palpitation: Normal elasticity for age Abdomen: Abdomen is soft. Bowel sounds +. There is mild epigastric abdominal tenderness, no guarding/rigidity or organomegaly Psych: normal insight and normal affect/mood MSK: no joint tenderness or swelling. Digits and nails normal, no deformity. : kidney or bladder not palpable. Access: AVF Labs/imaging reviewed. Past medical history, past surgical history, family history, social history, allergy reviewed and noted as below Family Hx: no hx of CKD. Non contributory sec HTN work up neg as renin/ioana, metanephrine and renal artery doppler Past Patient History - Infectious Disease Hx of Infectious Diseases: None - Past Medical History & Family History Past Medical History?: Yes - Past Social History Smoking Status: Light Smoker < 10 Cigarettes Daily - CARDIAC Hx Congestive Heart Failure: Yes Hx Hypercholesterolemia: Yes Hx Hypertension: Yes Hx Peripheral Edema: Yes - PULMONARY Hx Respiratory Disorders: No Other/Comment: CLAIMED SMOKES MARIJUANA DAILY FOR PAIN - NEUROLOGICAL Hx Neurological Disorder: No - HEENT Hx HEENT Problems: Yes Hx Cataracts: Yes Other/Comment: cataract surgery [facility] 10 years ago - RENAL Hx Chronic Kidney Disease: Yes - ENDOCRINE/METABOLIC Hx Endocrine Disorders: Yes Hx Diabetes Mellitus Type 1: Yes - HEMATOLOGICAL/ONCOLOGICAL Hx Anemia: Yes (Pt denies) - INTEGUMENTARY Hx Dermatological Problems: No - MUSCULOSKELETAL/RHEUMATOLOGICAL Hx Falls: No - GASTROINTESTINAL Hx Gastritis: Yes - GENITOURINARY/GYNECOLOGICAL Hx Genitourinary Disorders: No - PSYCHIATRIC Hx Substance Use: Yes (MARIJUANA) - SURGICAL HISTORY Hx Surgeries: Yes Hx Cataract Extraction: Yes (bilateral) Hx Vascular Access Device: Yes Other/Comment: RT.PERMACATH INSERTION 12/30. LT.AV SHUNT CREATION 02/17/16. UNDESCENDED TESTES LT. REMOVED DURING CHILDHOOD - ANESTHESIA Hx Anesthesia: Yes Hx Anesthesia Reactions: No Hx Malignant Hyperthermia: No Meds Allergies/Adverse Reactions: Allergies Allergy/AdvReac Type Severity Reaction Status Date / Time No Known Allergies Allergy Verified 01/23/17 21:44 - Medications Medications: Current Medications Acetaminophen (Tylenol 325mg Tab) 650 mg PO Q6 PRN PRN Reason: Pain, Mild (1-3) Last Admin: 01/23/17 23:29 Dose: 650 mg Amlodipine Besylate (Norvasc) 10 mg PO DAILY [facility] Last Admin: 01/24/17 06:23 Dose: 10 mg Clonidine HCl (Catapres) 0.2 mg PO TID [facility] Last Admin: 01/24/17 09:22 Dose: 0.2 mg Dextrose (Dextrose 50% Inj) 0 ml IV STAT PRN; Protocol PRN Reason: Hypoglycemia Protocol Dextrose (Glutose 15) 0 gm PO ONCE PRN; Protocol PRN Reason: Hypoglycemia Protocol Dicyclomine HCl (Bentyl) 10 mg PO QID PRN PRN Reason: GI distress Epoetin Oumar (Procrit) 4,000 unit IV MWF [facility] Famotidine (Pepcid) 20 mg PO DAILY [facility] Last Admin: 01/24/17 09:43 Dose: Not Given Fluconazole (Diflucan) 100 mg PO DAILY [facility] Last Admin: 01/24/17 09:19 Dose: 100 mg Gabapentin (Neurontin) 300 mg PO DAILY [facility] Last Admin: 01/24/17 09:21 Dose: 300 mg Glucagon (Glucagen Diagnostic Kit) 0 mg IM STAT PRN; Protocol PRN Reason: Hypoglycemia Protocol Heparin Sodium (Porcine) (Heparin) 5,000 units SC Q12H [facility] Hydralazine HCl (Apresoline) 25 mg PO Q6 [facility] Last Admin: 01/24/17 13:00 Dose: Not Given Dextrose/Sodium Chloride (Dextrose 5%/0.45% Ns 1000 Ml) 1,000 mls @ 40 mls/hr IV .Q24H [facility] Last Admin: 01/23/17 23:21 Dose: 40 mls/hr Dextrose (Dextrose 5% In Water 1000 Ml) 1,000 mls @ 0 mls/hr IV .Q0M PRN; Protocol; Per Protocol PRN Reason: Hypoglycemia Protocol Insulin Aspart (Novolog) 0 unit SC ACTID [facility] PRN Reason: Protocol Last Admin: 01/24/17 09:21 Dose: 1 unit Insulin Glargine (Lantus) 10 unit SC HS [facility] Ketorolac Tromethamine (Toradol) 30 mg IVP Q8 PRN PRN Reason: Pain, Mild (1-3) Lisinopril (Zestril) 10 mg PO DAILY [facility] Metoclopramide HCl (Reglan) 10 mg PO Q8 [facility] Last Admin: 01/24/17 05:17 Dose: 10 mg Metoclopramide HCl (Reglan) 10 mg IVP Q6 [facility] Metoprolol Tartrate (Lopressor) 50 mg PO Q12 [facility] Last Admin: 01/24/17 09:07 Dose: Not Given Morphine Sulfate (Morphine) 2 mg IVP Q4 PRN PRN Reason: Pain, moderate (4-7) Last Admin: 01/24/17 10:19 Dose: 2 mg Ondansetron HCl (Zofran Inj) 4 mg IVP Q6 PRN PRN Reason: Nausea/Vomiting Last Admin: 01/24/17 04:00 Dose: 4 mg Pantoprazole Sodium (Protonix Inj) 40 mg IVP DAILY [facility] Last Admin: 01/24/17 09:21 Dose: 40 mg Polyethylene Glycol (Miralax) 17 gm PO BID [facility] Last Admin: 01/24/17 09:33 Dose: Not Given Sevelamer Carbonate (Renvela) 2,400 mg PO TIDCC [facility] Last Admin: 01/24/17 09:20 Dose: 2,400 mg Vitamin B Complex/Vit C/Folic Acid (Nephro-Yomi) 1 tab PO 0800 [facility] Last Admin: 01/24/17 09:21 Dose: 1 tab Results - Vital Signs Recent Vital Signs: Last Vital Signs Temp 97 F L 1211/17 10:40 Pulse 81 01/24/17 11:04 Resp 16 01/24/17 11:04 BP 116/72 01/24/17 14:10 Pulse Ox 98 01/24/17 10:40 - Labs Result Diagrams: 01/24/17 11:06 01/24/17 11:06 Labs: Laboratory Results - last 24 hr 01/23/17 01/23/17 01/23/17 22:02 22:02 22:18 WBC 14.3 H RBC 3.82 L Hgb 10.4 L Hct 32.9 L MCV 86.3 MCH 27.2 MCHC 31.6 L RDW 19.5 H Plt Count 387 D MPV 8.5 Neut % (Auto) 82.6 H Lymph % (Auto) 6.9 L [place] % (Auto) 8.3 Eos % (Auto) 1.2 Baso % (Auto) 1.0 Neut # 11.8 H Lymph # 1.0 [place] # 1.2 H Eos # 0.2 Baso # 0.1 Neutrophils % (Manual) 82 H Band Neutrophils % 1 Lymphocytes % (Manual) 7 L Monocytes % (Manual) 7 Eosinophils % (Manual) 3 Basophils % (Manual) Platelet Estimate Normal Plt Clumps, EDTA Giant Platelets Present Polychromasia Slight Hypochromasia (manual) Slight Anisocytosis (manual) Slight Microcytosis (manual) Slight Macrocytosis (manual) Slight Target Cells Ovalocytes Slight APTT pO2 48 VBG pH 7.45 H VBG pCO2 47 VBG HCO3 30.5 VBG Total CO2 34.1 H VBG O2 Sat (Calc) 82.8 H VBG Base Excess 7.5 H VBG Potassium 5.5 H A-a O2 Difference 43.0 Glucose 193 H Lactate 1.4 FiO2 21.0 Sodium 138 137.0 Potassium 4.7 Chloride 90 L 99.0 Carbon Dioxide 35 H Anion Gap 17 BUN 52 H Creatinine 6.1 H Est GFR ( Amer) 13 Est GFR (Non-Af Amer) 10 POC Glucose (mg/dL) Random Glucose 201 H Calcium 8.1 L Total Bilirubin 0.8 AST 31 ALT 41 Alkaline Phosphatase 153 H Total Protein 8.5 H Albumin 4.0 Globulin 4.6 H Albumin/Globulin Ratio 0.9 L Amylase Lipase 67 Venous Blood Potassium 5.5 H Serum Ketones Moderate 01/24/17 01/24/17 01/24/17 06:17 11:06 11:06 WBC 12.5 H RBC 3.36 L Hgb 9.1 L Hct 28.8 L MCV 85.5 MCH 27.2 MCHC 31.8 L RDW 19.0 H Plt Count 354 MPV 8.6 Neut % (Auto) 82.3 H Lymph % (Auto) 7.4 L [place] % (Auto) 7.8 Eos % (Auto) 1.7 Baso % (Auto) 0.8 Neut # 10.3 H Lymph # 0.9 L [place] # 1.0 H Eos # 0.2 Baso # 0.1 Neutrophils % (Manual) 86 H Band Neutrophils % Lymphocytes % (Manual) 7 L Monocytes % (Manual) 5 Eosinophils % (Manual) 1 Basophils % (Manual) 1 Platelet Estimate Normal Plt Clumps, EDTA Basket Hand Braider Giant Platelets Present Polychromasia Hypochromasia (manual) Slight Anisocytosis (manual) Moderate Microcytosis (manual) Macrocytosis (manual) Target Cells Slight Ovalocytes APTT pO2 VBG pH VBG pCO2 VBG HCO3 VBG Total CO2 VBG O2 Sat (Calc) VBG Base Excess VBG Potassium A-a O2 Difference Glucose Lactate FiO2 Sodium 135 Potassium 4.5 Chloride 93 L Carbon Dioxide 32 H Anion Gap 14 BUN 53 H Creatinine 6.8 H Est GFR ( Amer) 11 Est GFR (Non-Af Amer) 9 POC Glucose (mg/dL) 183 H Random Glucose 225 H Calcium 7.4 L Total Bilirubin 0.7 AST 21 ALT 37 Alkaline Phosphatase 127 H Total Protein 6.4 Albumin 3.5 Globulin 2.9 Albumin/Globulin Ratio 1.2 Amylase 140 H D Lipase 54 Venous Blood Potassium Serum Ketones 01/24/17 01/24/17 11:06 11:24 WBC RBC Hgb Hct MCV MCH MCHC RDW Plt Count MPV Neut % (Auto) Lymph % (Auto) [place] % (Auto) Eos % (Auto) Baso % (Auto) Neut # Lymph # [place] # Eos # Baso # Neutrophils % (Manual) Band Neutrophils % Lymphocytes % (Manual) Monocytes % (Manual) Eosinophils % (Manual) Basophils % (Manual) Platelet Estimate Plt Clumps, EDTA Giant Platelets Polychromasia Hypochromasia (manual) Anisocytosis (manual) Microcytosis (manual) Macrocytosis (manual) Target Cells Ovalocytes APTT 30 pO2 VBG pH VBG pCO2 VBG HCO3 VBG Total CO2 VBG O2 Sat (Calc) VBG Base Excess VBG Potassium A-a O2 Difference Glucose Lactate FiO2 Sodium Potassium Chloride Carbon Dioxide Anion Gap BUN Creatinine Est GFR ( Amer) Est GFR (Non-Af Amer) POC Glucose (mg/dL) 179 H Random Glucose Calcium Total Bilirubin AST ALT Alkaline Phosphatase Total Protein Albumin Globulin Albumin/Globulin Ratio Amylase Lipase Venous Blood Potassium Serum Ketones
[2017-01-24 16:07] VITALS: BP 137/77; PULSE 82; RESP 20; TEMP 98.1; O2SAT 98
--- NOTE | 2017-01-24 16:58 | US ---
HISTORY: ABDOM. PAIN / N. / V. COMPARISON: 01/19/2017 CT abdomen and pelvis TECHNIQUE: Sonographic evaluation of the abdomen. FINDINGS: LIVER: Measures 13.0 cm. Patent portal vein. Portal venous flow: Hepatopetal. Unremarkeable echogenicity of the liver parenchyma. No mass. No intrahepatic bile duct dilatation. GALLBLADDER: Unremarkable. No gallstones. COMMON BILE DUCT: Measures 4.8 mm. No stones. No dilatation. PANCREAS: Unremarkable as visualized. No mass. No ductal dilatation. RIGHT KIDNEY: Measures 5.6 x 12.3cm. Normal echogenicity. No calculus, mass, or hydronephrosis. LEFT KIDNEY: Measures 6.4 x 12.3cm. Normal echogenicity. No calculus, mass, or hydronephrosis. SPLEEN: Normal in size and contour. No mass. AORTA: No aneurysmal dilatation. IVC: Unremarkable. OTHER FINDINGS: None. IMPRESSION: No significant or acute findings to account for/ related to the clinical presentation.
--- NOTE | 2017-01-24 17:27 | PN ---
DATE: LOCATION: [facility], bed A. SUBJECTIVE: This is a 36-year-old male seen and examined for GI consultation initially on 01/23/2017 as requested by the admitting medical staff due to diffuse abdominal pain, recurrent nausea and vomiting, post marijuana smoking with reported diarrhea, but with less bowel movement this morning, patient for hemodialysis. The entire chart is reviewed including, but not limited to the most recent lab and radiology study results, current and the previous medication list, current and the previous medical events, and today's lab showed white blood cells of 12.5 with low hemoglobin of 9.1, low hematocrit 28.8 with normal platelet count with CO2 content of 32 indicative of respiratory alkalosis. BUN of 53, creatinine 6.8 with blood glucose level 179 and mildly elevated alkaline phosphatase to 127. PHYSICAL EXAMINATION: GENERAL: A 36-year-old male. He is still complaining of abdominal pain with dyspepsia and nausea as well as loose bowel movement. VITAL SIGNS: Afebrile with pulse of 78, respiratory rate of 20 to 22, and blood pressure of 154/88. HEENT: Showed pale, dry oral mucous membranes. Nonicteric sclerae. LUNGS: A few scattered crepitations. Decreased air entry at bases. HEART: Positive S1 and S2. ABDOMEN: Soft. Bowel sounds are present with generalized abdominal tenderness. No mass or organomegaly. No rebound tenderness or guarding. EXTREMITIES: With mild lower extremity edematous changes. No clubbing or cyanosis. RECTAL: Patient refused. NEUROLOGIC: No reported new neurological deficits, sensory or motor. IMPRESSION: 1. Poorly-controlled hypertension. 2. Poorly-controlled diabetes mellitus. 3. Re-exacerbation of peptic ulcer disease with gastroparesis. 4. End-stage renal disease, on hemodialysis. 5. Known history of peripheral edema syndrome. 6. Anemia, most likely secondary to above. 7. Leukocytosis, diarrhea, the possibility of infectious diarrhea was raised. 8. Rule out early phase of acute pancreatitis. SUGGESTIONS: 1. I agree with your plan. 2. Control any abnormal hypertension. 3. Antireflux measures. 4. Serum lipase, amylase level. 5. Complete stool workup. 6. Further recommendation to follow. 7. Flagyl IV once a day to be kept in mind with Diflucan p.o. 8. Rehydration. 9. Further recommendation to follow, and the patient will need Reglan IV rather than Zofran. Thank you for letting me participate in your patient's case management. We will follow up closely with you. Cassy Hernandez MD
[2017-01-24] MEDS ORDERED: (Lantus) Insulin Glargine, Recombinant SC SCH (22:00)
[2017-01-25 02:29] LABS: TOTAL PROTEIN, SERUM 6.5 g/dL (6.1-8.1)
--- NOTE | 2017-01-25 06:38 | CON ---
DATE: 01/23/[address] Cassy Hernandez to Dr. Lucero Chadwick. I was called for a GI consultation by the admitting medical team. The patient is seen and fully examined on 01/23/2017 as requested by the admitting medical staff. The entire chart is reviewed, including but not limited to the most recent lab and radiology study results, current and the previous medication list, current and the previous medical events, allergy to medication list as well as all the available current and the previous medical records. Case was discussed at length with the staff in the floor. HISTORY OF PRESENT ILLNESS: This is a 36-year-old male, a very well-known case for me from previous admissions, who was admitted to the hospital through the emergency room with the main complaint of diffuse severe abdominal pain associated with persistent nausea, dyspepsia, and vomiting; post marijuana smoking as per the patient's statement, who has reported diarrhea and postprandial abdominal distention, but no reported active bleeding. The patient had during the hospital and the CAT scan of the abdomen and pelvis was reported to be negative as per record. PAST MEDICAL HISTORY: Including, but not limited to; 1. Hypertension. 2. Diabetes mellitus. 3. Peptic ulcer disease with diabetic gastroparesis. 4. Congestive heart failure. 5. Hyperlipidemia and peripheral edema syndrome. 6. End-stage renal disease, on hemodialysis. CURRENT MEDICATIONS: Medication list was reviewed. FAMILY HISTORY: Positive for hypertension and diabetes mellitus. SOCIAL HISTORY: Positive for cigarette smoking as well as marijuana smoking, but denied any recent history of alcohol intake. ALLERGY TO MEDICATION: LIST SEEN. After being admitted to the hospital, the patient initially was found to have an elevated white blood cells to 14.3 with low hemoglobin of 10.4, low hematocrit of 32.9, with thrombocytosis of 387, increased blood glucose level to 201 with increased BUN of 52, creatinine 6.1, with increased CO2 content of 35, indicative of respiratory alkalosis. PHYSICAL EXAMINATION: GENERAL: A 36-year-old male. VITAL SIGNS: Afebrile with pulse of 82, respiratory rate 20 to 22, and blood pressure 200/96. HEENT: Showed pale dry oral mucous membrane. Nonicteric sclerae. LYMPH NODES: No lymphadenitis or lymphadenopathy. LUNGS: Few scattered crepitation with mild decrease of air entry at bases. HEART: Positive S1 and S2. ABDOMEN: Soft with diffuse tenderness and slight distension. Bowel sounds are present. No mass or organomegaly. No rebound tenderness or guarding. RECTAL EXAMINATION: The patient refused. EXTREMITIES: With lower extremity mild edematous changes. No clubbing or cyanosis. NEUROLOGIC: No reported new neurological deficits, sensory or motor. IMPRESSION: 1. Re-exacerbation of peptic ulcer disease. 2. Known history of gastritis with diabetic gastroparesis. 3. Poorly controlled diabetes mellitus. 4. Poorly controlled hypertension. 5. Known history of, but not limited to, end-stage renal disease, on hemodialysis; congestive heart failure; hyperlipidemia, with acute pancreatitis. 6. Diarrhea of unclear etiology with leukocytosis. The possibility of infectious diarrhea was strongly raised. SUGGESTION: 1. I agree with your plan. 2. Complete stool workup. 3. Flagyl 500 mg IV piggyback daily due to the patient's renal status. 4. Abdominal ultrasound with attention to the biliary tree and pancreas. 5. Reglan IV. 6. No need for aggressive GI workup, as the patient recently had upper and lower endoscopies. 7. Further recommendation to follow. Thank you for letting me participate in your patient's case management. Cassy Hernandez MD
[2017-01-25 08:44] LABS: FREE KAPPA SERUM 206.8 mg/L (3.3-19.4); FREE LAMBDA SERUM 86.1 mg/L (5.7-26.3)
[2017-01-26] MEDS ORDERED: EPOETIN ALFA 4,000 UNIT/ML ML Dialysis IV SCH (09:00)
== END 2017-01-24 19:03 | disposition home or self-care (01) | DRG 291 ==
LOC: C.ER 21:34 → C.9E 22:49 → C.6T 23:47
PROVIDERS: ADMIT Internal Medicine Pulmonary Disease; ATTEND Internal Medicine Pulmonary Disease
PROC: 5A1D70Z Performance of Urinary Filtration, Intermittent, Less than 6 Hours Per Day (ICD-10-PCS; principal; 2017-01-24)
DX: I13.2 Hypertensive heart and chronic kidney disease with heart failure and with stage 5 chronic kidney disease, or end stage renal disease (principal); N18.6 End stage renal disease; E10.22 Type 1 diabetes mellitus with diabetic chronic kidney disease; K31.84 Gastroparesis; E10.43 Type 1 diabetes mellitus with diabetic autonomic (poly)neuropathy; E10.65 Type 1 diabetes mellitus with hyperglycemia; N25.81 Secondary hyperparathyroidism of renal origin; E78.5 Hyperlipidemia, unspecified; F12.10 Cannabis abuse, uncomplicated; F17.200 Nicotine dependence, unspecified, uncomplicated; I50.9 Heart failure, unspecified; G89.29 Other chronic pain; D64.9 Anemia, unspecified; Z79.4 Long term (current) use of insulin; Z91.19 Patient's noncompliance with other medical treatment and regimen; Z99.2 Dependence on renal dialysis

== ENCOUNTER 2017-02-03 07:36 | Inpatient (IN) | payer MEDICARE ==
[2017-02-03 07:36] VITALS: BMI 19.5
[2017-02-03 08:37] LABS: DRAW SITE VENOUS; VENOUS BLOOD GAS BASE EXCESS 4.9 mmol/L (0.0-2.0); VENOUS BLOOD GAS PCO2 36 mmHg (40-60)
[2017-02-03 08:47] LABS: BASO # 0.1 K/uL (0.0-0.2); BASO % 0.9 % (0.0-2.0); EOS # 0.3 K/uL (0.0-0.7); EOS % 2.4 % (0.0-4.0); HEMATOCRIT 33.4 % (35.0-51.0); LYMPH # 1.6 K/uL (1.0-4.3); LYMPH % 11.8 % (20.0-40.0); MEAN CELL VOLUME 87.9 fL (80.0-94.0); MEAN CORPUSCULAR HEMOGLOBIN 28.2 pg (27.0-31.0); MEAN CORPUSCULAR HGB CONC 32.1 g/dL (33.0-37.0); MEAN PLATELET VOLUME 8.8 fL (7.2-11.7); MONO # 1.7 K/uL (0.0-0.8); MONO % 12.1 % (0.0-10.0); NRBC % 0.1 % (0.0-2.0); RED CELL DISTRIBUTION WIDTH 20.8 % (11.5-14.5); WHITE BLOOD COUNT 13.9 K/uL (4.8-10.8)
[2017-02-03] MEDS ORDERED: Morphine 4 MG/ML VIAL IV STA ×2 (08:53→10:28)
[2017-02-03] MEDS ORDERED: Morphine 4 MG/ML VIAL ONE (08:59)
[2017-02-03 09:02] LABS: ALB/GLOB RATIO 1.2 (1.0-2.1); ALKALINE PHOSPHATASE 145 U/L (38-126); ALT/SGPT 24 U/L (21-72); AST/SGOT 22 U/L (17-59); BILIRUBIN,TOTAL 0.7 mg/dL (0.2-1.3); BLOOD UREA NITROGEN 42 mg/dL (9-20); CALCIUM 8.7 mg/dl (8.6-10.4); CARBON DIOXIDE 30 mmol/L (22-30); CHLORIDE 90 mmol/L (98-107); GFR AFRICAN-AMERICAN 13; GLUCOSE,RANDOM 251 mg/dL (75-110); MAGNESIUM 1.8 mg/dL (1.6-2.3); POTASSIUM 4.6 mmol/L (3.6-5.2); SODIUM 132 mmol/L (132-148); TOTAL PROTEIN 6.9 g/dL (6.3-8.3)
--- NOTE | 2017-02-03 09:16 | RAD ---
PROCEDURE: CHEST RADIOGRAPH, 1 VIEW HISTORY: abd pain COMPARISON: 12/31/2016 FINDINGS: LUNGS: Clear. PLEURA: No pneumothorax or pleural fluid seen. CARDIOVASCULAR: Normal. OSSEOUS STRUCTURES: No significant abnormalities. VISUALIZED UPPER ABDOMEN: Normal. OTHER FINDINGS: None. IMPRESSION: No active disease.
--- NOTE | 2017-02-03 09:27 | C.PDOC ---
Time Seen by Provider: 02/03/17 07:45 Chief Complaint (Nursing): Abdominal Pain Past Medical History Vital Signs: Last Vital Signs Temp 98.6 F 02/03/17 07:53 Pulse 101 H 02/03/17 09:00 Resp 20 02/03/17 09:00 BP 219/101 H 02/03/17 09:00 Pulse Ox 99 02/03/17 09:33 - Medical History PMH: Anemia (Pt denies), CHF, Diabetes (type I), Gastritis, HTN, Hypercholesterolemia, Peripheral Edema, End Stage Renal Disease, Chronic Kidney Disease (dialysis MWF) Denies: HIV, Kidney Stones - [facility] Procedures (01/29/17) (11/12/16) BYPASS LEFT BRACHIAL ARTERY TO UPPER ARM VEIN, OPEN APPROACH (02/17/16) DILATION OF LEFT BASILIC VEIN, PERCUTANEOUS APPROACH (11/06/16) EXCISION OF ASCENDING COLON, ENDO, DIAGN (12/19/15) EXCISION OF DESCENDING COLON, ENDO, DIAGN (10/22/16) EXCISION OF DUODENUM, ENDO, DIAGN (03/25/16) EXCISION OF LARGE INTESTINE, ENDO, DIAGN (05/06/16) EXCISION OF MIDDLE ESOPHAGUS, ENDO, DIAGN (03/25/16) EXCISION OF STOMACH, ENDO, DIAGN (12/31/16) EXCISION OF TRANSVERSE COLON, ENDO, DIAGN (05/06/16) INSERTION OF INFUSION DEV INTO SUP VENA CAVA, PERC APPROACH (12/19/15) PERFORMANCE OF URINARY FILTRATION, MULTIPLE (10/28/16) PERFORMANCE OF URINARY FILTRATION, SINGLE (11/06/16) REPOSITION LEFT BASILIC VEIN, OPEN APPROACH (05/25/16) ULTRASONOGRAPHY OF SUPERIOR VENA CAVA, GUIDANCE (12/19/15) Family History: States: Unknown Family Hx, Diabetes, Hypertension - Social History Hx Tobacco Use: Yes (some days) Hx Alcohol Use: No Hx Substance Use: No - Immunization History Hx Tetanus Toxoid Vaccination: Yes Hx Influenza Vaccination: Yes Hx Pneumococcal Vaccination: Yes ED Course And Treatment - Laboratory Results Result Diagrams: 02/03/17 08:38 02/03/17 08:38 O2 Sat by Pulse Oximetry: 99 Disposition Discussed With : Lucero Chadwick Doctor Will See Patient In The: Hospital Counseled Patient/Family Regarding: Studies Performed, Diagnosis - Disposition Disposition Time: 09:27 Forms: [employer] ([employer]) - Clinical Impression Clinical Impression: Gastroparesis due to secondary diabetes, ESRD (end stage renal disease)
--- NOTE | 2017-02-03 09:27 | C.PDOC ---
History Of Present Illness 36 y/o male, with PMHx of ESRD on HD, diabetes, gastritis, presents to ED for evaluation of abdominal pain, nausea, and vomiting for the past 2 days. Pt notes last dialysis was yesterday, without any complications. Pt has frequent visits to this ER for similar symptoms. Denies diarrhea, fever, chills, or recent travel. Time Seen by Provider: 02/03/17 07:45 Chief Complaint (Nursing): Abdominal Pain History Per: Patient History/Exam Limitations: no limitations Onset/Duration Of Symptoms: Days Current Symptoms Are (Timing): Still Present Location Of Pain/Discomfort: Epigastric Radiation Of Pain To:: None Quality Of Discomfort: "Pain" Associated Symptoms: Nausea, Vomiting. denies: Diarrhea, Loss Of Appetite, Back Pain, Chest Pain, Constipation, Urinary Symptoms Exacerbating Factors: None Alleviating Factors: None Recent travel outside of the [place]: No Additional History Per: Patient Past Medical History Reviewed: Historical Data, Nursing Documentation, Vital Signs Vital Signs: Last Vital Signs Temp 98.6 F 02/03/17 07:53 Pulse 101 H 02/03/17 09:00 Resp 20 02/03/17 09:00 BP 219/101 H 02/03/17 09:00 Pulse Ox 99 02/03/17 09:36 - Medical History PMH: Anemia (Pt denies), CHF, Diabetes (type I), Gastritis, HTN, Hypercholesterolemia, Peripheral Edema, End Stage Renal Disease, Chronic Kidney Disease (dialysis MWF) Denies: HIV, Kidney Stones - [facility] (01/29/17) (11/12/16) BYPASS LEFT BRACHIAL ARTERY TO UPPER ARM VEIN, OPEN APPROACH (02/17/16) DILATION OF LEFT BASILIC VEIN, PERCUTANEOUS APPROACH (11/06/16) EXCISION OF ASCENDING COLON, ENDO, DIAGN (12/19/15) EXCISION OF DESCENDING COLON, ENDO, DIAGN (10/22/16) EXCISION OF DUODENUM, ENDO, DIAGN (03/25/16) EXCISION OF LARGE INTESTINE, ENDO, DIAGN (05/06/16) EXCISION OF MIDDLE ESOPHAGUS, ENDO, DIAGN (03/25/16) EXCISION OF STOMACH, ENDO, DIAGN (12/31/16) EXCISION OF TRANSVERSE COLON, ENDO, DIAGN (05/06/16) INSERTION OF INFUSION DEV INTO SUP VENA CAVA, PERC APPROACH (12/19/15) PERFORMANCE OF URINARY FILTRATION, MULTIPLE (10/28/16) PERFORMANCE OF URINARY FILTRATION, SINGLE (11/06/16) REPOSITION LEFT BASILIC VEIN, OPEN APPROACH (05/25/16) ULTRASONOGRAPHY OF SUPERIOR VENA CAVA, GUIDANCE (12/19/15) Family History: States: Diabetes, Hypertension - Social History Hx Tobacco Use: Yes (some days) Hx Alcohol Use: No Hx Substance Use: No - Immunization History Hx Tetanus Toxoid Vaccination: Yes Hx Influenza Vaccination: Yes Hx Pneumococcal Vaccination: Yes Review Of Systems Except As Marked, All Systems Reviewed And Found Negative. Constitutional: Negative for: Fever, Chills Cardiovascular: Negative for: Chest Pain, Palpitations Respiratory: Negative for: Cough, Shortness of Breath Gastrointestinal: Positive for: Nausea, Vomiting, Abdominal Pain. Negative for : Diarrhea, Constipation, Hematemesis Genitourinary: Negative for: Dysuria, Frequency, Hematuria Musculoskeletal: Negative for: Back Pain Physical Exam - Physical Exam Appears: Non-toxic, No Acute Distress Skin: Normal Color, Warm, Dry Head: Atraumatic, Normacephalic Eye(s): bilateral: Normal Inspection Oral Mucosa: Moist Chest: Symmetrical Cardiovascular: Rhythm Regular, No Murmur Respiratory: Normal Breath Sounds, No Rales, No Rhonchi, No Wheezing Gastrointestinal/Abdominal: Soft, Tenderness (epigastric), No Distention, No Guarding, No Rebound Back: No CVA Tenderness Extremity: Normal ROM, Other ((+)thrill to left arm AV fistula) Neurological/Psych: Oriented x3, Normal Speech ED Course And Treatment - Laboratory Results Result Diagrams: 02/03/17 08:38 02/03/17 08:38 ECG: Interpreted By Me, Viewed By Me ECG Rhythm: Sinus Rhythm ECG Interpretation: No Acute Changes Interpretation Of ECG: Normal intervals, normal axis. LVH. No acute ST/T wave changes. Rate From EC (bpm) O2 Sat by Pulse Oximetry: 99 (RA) Pulse Ox Interpretation: Normal Medical Decision Making Medical Decision Making: Blood work, EKG, CXR ordered and reviewed. Patient was given Zofran, Reglan, Morphine, and Protonix. Assessment: Gastroparesis Spoke with Dr. Chadwick and agrees upon admission for intractable vomiting. Disposition Discussed With : Lucero Chadwick Doctor Will See Patient In The: Hospital Counseled Patient/Family Regarding: Studies Performed, Diagnosis - Disposition Disposition: HOSPITALIZED Disposition Time: 09:27 Condition: FAIR Forms: [facility] (Maori) - Clinical Impression Clinical Impression: Gastroparesis due to secondary diabetes, ESRD (end stage renal disease) - Scribe Statement The provider has reviewed the documentation as recorded by the Scribe Heriberto Dixon All medical record entries made by the Scribe were at my direction and personally dictated by me. I have reviewed the chart and agree that the record accurately reflects my personal performance of the history, physical exam, medical decision making, and the department course for this patient. I have also personally directed, reviewed, and agree with the discharge instructions and disposition.
[2017-02-03] MEDS ORDERED: Metoprolol 1 mg/ml Inj IVP ONE ×2 (11:45→11:56)
[2017-02-03] MEDS ORDERED: Labetalol 25mg/5ml Syringe ONE (13:03)
[2017-02-03] MEDS ORDERED: Labetalol 5 mg/ml Inj 20ML IV ONE (13:15)
[2017-02-03] MEDS ORDERED: Morphine 4 MG/ML VIAL IV ONE ×2 (13:15→13:30)
[2017-02-03] MEDS ORDERED: Nitroglycerin 2% Ointment Foilpak UD TOP ONE (13:30)
--- NOTE | 2017-02-03 13:51 | PCM.RRT ---
<Sigrid Reed - Last Filed: 02/03/17 16:17> [facility] Nurses Assessment - Situation Date: 02/03/17 Time [facility] was called: 12:35 [facility] Responder Arrival Time:: 12:35 [facility] Location:: Med/Oncology Room Number: 351B [facility] Reason for Call: Hypertension [facility] Called By: RN - Respiratory [facility] Delivery Method: Room Air - Medication Medications Administered During [facility]: Zofran 4mg IV, Morphine 4mg IV, Labetalol 10mg, Nitro paste 2% topical 0.5inches, morphine 4mg IV (2nd), clonidine 0.2mg PO - Diagnostic Test Ordered EKG: Yes CPR started during [facility]?: No - Vital Signs Vital Signs: 12:53PM BP 225/111, 97% O2 RA, Pulse 95 13:10PM BP 234/110 1:29PM BP 222/92 1:40PM BP 218/90 1:50PM 198/93 2:20PM 162/75 - Lenore Coma Scale Coma Scale Eye Opening: Spontaneous - Vital Signs at end of [facility] Vital Signs at end of [facility]: BP:162/75, P:94, O2 96% RA - Recommendations 5) [facility] Level of Care Recommendations: Transfer to Telemetry Notifications: Attending Physician I.Reason for [facility] - A) Acute Change in Patient: Subjective: Rapid Response was called at 12:53pm to room 351B. Patient is 36 year old male with PMHx of HTN, ESRD, DM2, and gastroparesis. Patient was found to have uncontrolled BP of 225/111. Upon responder arrival patient was complaining of nausea, vomiting, and chest pain. Patient states he has not taken any BP medications today. He denies having a headache or vision changes. - Constitutional Appears: In Acute Distress (due to abdominal pain), Unkempt - Head Head Exam: ATRAUMATIC, NORMOCEPHALIC - Eyes Eye Exam: Normal appearance - Respiratory Exam Respiratory Exam: Clear to Ausculation Bilateral, NORMAL BREATHING PATTERN. absent: Respiratory Distress - Cardiovascular Exam Cardiovascular Exam: REGULAR RHYTHM, +S1, +S2 - GI/Abdominal Exam GI & Abdominal Exam: Soft, Tenderness (epigastric region). absent: Mass - Neurological Exam Neurological Exam: Alert, Awake, Oriented x3 - Extremities Exam Additional comments: Good thrill to left arm AV fistula Plan - Assessment of Findings&Treatment Plan Uncontrolled Hypertension -Labetalol 10mg IV, Nitro-paste 2% topical, and Clonidine 0.2mg PO were given during RTT -Patient's BP was rechecked 30mins after Clonidine PO, 162/75 mmHg at 2:20PM -Transfer to Telemetry for further monitoring -Follow up EKG Attending physician Dr. Chadwick was notified and agreed with the plan <Comfort Reese V - Last Filed: 02/06/17 22:43> [facility] Nurses Assessment - Vital Signs Vital Signs: Rapid Response Vital Sign Blood Pressure 225/111 Pulse Rate 94 Respiratory Rate 22 Temperature 98.2 F Oxygen Saturation 98 - Vital Signs at end of [facility] Vital Signs at end of [facility]AT[facility]X: Rapid Response End Vital Sign Blood Pressure 198/93 Pulse Rate 96 Respiratory Rate 18 Temperature 98 F O2 Sat by Pulse Oximetry 98 Attending/Attestation - Attestation I have personally seen and examined this patient.: Yes I have fully participated in the care of the patient.: Yes I have reviewed all pertinent clinical information, including history, physical exam and plan: Yes Notes (Text): This is late computer entry for 02/03/2017. Rapid response called for hypertensive urgency systolic around 200s. Patient recently came up from the ED with systolic noted in 200s to a regular floor.. Patient with a noted history of diabetic gastroparesis and history of end-stage renal disease and substance abuse and route prior to arrival to the floor patient was given labetalol 10 mg IVX1 During rapid response patient was given labetalol 10 mg IV half and inch Nitropaste and additional Morphine IV and Zofran IV for nausea and abdominal pain. Patient is tearful but speaking understands German very well. Patient noted gagging. Unable to tolerate by mouth meds. Patient has not taken his 5 antihypertensive medications including clonidine. I suspect element of Clondine withdrawal causing even hypertension coinciding with both his abdominal pain. Patient's belly is soft patient is actively throwing up no blood noted at end of rapid systolic about 192. Discussed with patient's primary doctor Farrukh who reports his baseline is around SBP 170-180s with medications. Patient reevaluate the evaluated later with 160s/ 70s blood pressure. Discussed with PMD recommended for transfer telemetry. Discussed with nursing paper coating supervisor given that it is unclear why patient was deemed safe for regular floor given her quite substantial systolic blood pressure.
--- NOTE | 2017-02-03 15:39 | CP.PCM.PN ---
Subjective - Date & Time of Evaluation Date of Evaluation: 02/03/17 Time of Evaluation: 14:00 - Subjective Subjective: 36 year old male with past medical history of HTN, DM, ESRD on dialysis , gastroparesis, and marijuana use presents to the ED with intractable vomiting of 2 days. Patient states he vomited so many times since yesterday that he cannot remember. Patient states his vomitus were non bloody and clear. Patient has been admitted to the hospital multiple times for the similar complaint. Patient had multiple GI workup this year. Patient has poor intake since the symptoms started. Patient reports his last marijuana use was at least 2 weeks ago. Patient denies having fever, chills, headache, shortness of breath. Nephrology: Dr. Quezada PMHx: HTN, DM, ESRD on dialysis, gastroparesis, and marijuana PSHx: Permcath, AV fistula, fistula revision Allergy: none Family Hx: non contributory Social Hx: tobacco and marijuana, denies alcohol Home meds: see MAR Objective - Vital Signs/Intake and Output Vital Signs (last 24 hours): Temp Pulse Resp BP Pulse Ox 98.3 F 92 H 22 167/75 H 98 02/03/17 12:50 02/03/17 13:10 02/03/17 13:10 02/03/17 14:20 02/03/17 13:10 - Medications Medications: Current Medications Acetaminophen (Tylenol 325mg Tab) 650 mg PO Q6 PRN PRN Reason: Pain, Mild (1-3) Amlodipine Besylate (Norvasc) 10 mg PO DAILY [facility] Aspirin (Aspirin Chewable) 81 mg PO DAILY [facility] Cinacalcet (Sensipar) 30 mg PO DAILY [facility] Clonidine HCl (Catapres) 0.2 mg PO TID [facility] Famotidine (Pepcid) 20 mg PO BID [facility] Gabapentin (Neurontin) 300 mg PO DAILY [facility] Home Med (Sevelamer [Renagel]) 2,400 mg PO TID [facility] Hydralazine HCl (Apresoline) 25 mg PO Q6 [facility] Insulin Aspart (Novolog) 0 unit SC ACHS [facility] PRN Reason: Protocol Insulin Glargine (Lantus) 10 unit SC HS [facility] Lisinopril (Zestril) 10 mg PO DAILY [facility] Metoclopramide HCl (Reglan) 10 mg PO Q8 [facility] Metoprolol Tartrate (Lopressor) 50 mg PO Q12 [facility] Ondansetron HCl (Zofran Inj) 8 mg IVP Q6H PRN PRN Reason: Nausea/Vomiting Last Admin: 02/03/17 12:05 Dose: 8 mg Ondansetron HCl (Zofran Odt) 4 mg PO Q6 PRN PRN Reason: Nausea/Vomiting Pantoprazole Sodium (Protonix Ec Tab) 40 mg PO DAILY [facility] Polyethylene Glycol (Miralax) 17 gm PO BID [facility] Vitamin B Complex/Vit C/Folic Acid (Nephro-Yomi) 1 tab PO 0800 [facility] - Labs Labs: 02/03/17 08:38 02/03/17 08:38 - Constitutional Appears: Unkempt - Head Exam Head Exam: ATRAUMATIC, NORMOCEPHALIC - Eye Exam Eye Exam: Normal appearance Pupil Exam: PERRL - ENT Exam ENT Exam: Mucous Membranes Moist - Neck Exam Neck Exam: Full ROM, Normal Inspection. absent: Lymphadenopathy - Respiratory Exam Respiratory Exam: Clear to Ausculation Bilateral, NORMAL BREATHING PATTERN. absent: Respiratory Distress - Cardiovascular Exam Cardiovascular Exam: REGULAR RHYTHM, +S1, +S2 - GI/Abdominal Exam GI & Abdominal Exam: Soft, Tenderness (epigastric tenderness). absent: Mass - Extremities Exam Additional comments: Good thrill on left arm AV fistula - Neurological Exam Neurological Exam: Alert, Awake, Oriented x3 - Psychiatric Exam Psychiatric exam: Agitated - Skin Skin Exam: Dry, Warm Assessment and Plan - Assessment and Plan (Free Text) Assessment: Diabetic gastroparesis -Supportive care -NS @100ml/hr -NPO except meds, will advance as tolerated -Zofran 8mg, Reglan 10mg IV Q6 PRN -Dilauded 1mg IV Q4 PRN Hypertension, uncontrolled -Likely secondary to prolong vomiting -Continue Norvasc 10mg po -Continue clonidine 0.2mg po TID -Continue lisinopril 10mg po -Hydralazine 10mg IV PRN ESRD -Patient's last dialysis was 02/02/17 -Nephrology consult, Dr. 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
[2017-02-03] MEDS ORDERED: HYDROmorphone 1 mg/ml ISec IVP PRN (17:26)
[2017-02-03] MEDS ORDERED: POLYETHYLENE GLYCOL 3350 17 GM/Dose PACKET PO SCH (18:00)
[2017-02-03] MEDS: (Novolog) Insulin Aspart, Recombinant 100 u/ml 10 ml vial SC SCH ×2 (18:01→22:04)
[2017-02-03] MEDS: Sodium Chloride 0.9% 1,000 ML IV SCH (20:30)
--- NOTE | 2017-02-03 21:25 | HP ---
HISTORY OF PRESENT ILLNESS: Mr. Haynes is a 36-year-old male admitted to the hospital with chief complaints of nausea, vomiting, and abdominal pain. The patient came to the ER and was advised admission. PHYSICAL EXAMINATION: GENERAL: The patient is awake, alert, oriented. VITAL SIGNS: Temperature 98, pulse 90. HEENT: Within normal limits. NECK: Supple. CHEST: Symmetrical. HEART: Regular. ABDOMEN: Soft. EXTREMITIES: No edema. ASSESSMENT: Gastritis, uremic versus marijuana abuse. The patient gets bedrest, supportive care control blood pressure. Lucero Chadwick MD
[2017-02-03] MEDS: (Lantus) Insulin Glargine, Recombinant SC SCH (22:03)
[2017-02-04 06:57] LABS: BASO # 0.1 K/uL (0.0-0.2); BASO % 0.5 % (0.0-2.0); EOS # 0.1 K/uL (0.0-0.7); EOS % 0.6 % (0.0-4.0); HEMATOCRIT 33.3 % (35.0-51.0); LYMPH # 1.2 K/uL (1.0-4.3); LYMPH % 10.4 % (20.0-40.0); MEAN CELL VOLUME 88.6 fL (80.0-94.0); MEAN CORPUSCULAR HEMOGLOBIN 28.2 pg (27.0-31.0); MEAN CORPUSCULAR HGB CONC 31.9 g/dL (33.0-37.0); MEAN PLATELET VOLUME 8.4 fL (7.2-11.7); MONO # 1.2 K/uL (0.0-0.8); MONO % 10.5 % (0.0-10.0); RED CELL DISTRIBUTION WIDTH 21.7 % (11.5-14.5); WHITE BLOOD COUNT 11.7 K/uL (4.8-10.8)
[2017-02-04] MEDS: Sodium Chloride 0.9% 1,000 ML IV SCH ×2 (07:02→16:41)
[2017-02-04 08:55] LABS: ALB/GLOB RATIO 0.9 (1.0-2.1); BILIRUBIN,TOTAL 0.6 mg/dL (0.2-1.3); CALCIUM 8.3 mg/dl (8.6-10.4); POTASSIUM 5.2 mmol/L (3.6-5.2); TOTAL PROTEIN 8.6 g/dL (6.3-8.3)
[2017-02-04] MEDS: (Novolog) Insulin Aspart, Recombinant 100 u/ml 10 ml vial SC SCH ×5 (09:07→22:31)
[2017-02-04] MEDS: Pantoprazole 40 mg EC Tab PO SCH (09:33)
--- NOTE | 2017-02-04 09:41 | CP.PCM.PN ---
Subjective - Date & Time of Evaluation Date of Evaluation: 02/04/17 Time of Evaluation: 07:10 - Subjective Subjective: PGY-[address] Chadwick Patient seen and examined at bedside. Patient reports slight improvement of his vomiting and abdominal pain. Patient was educated on chronic marijuana use may have caused his current symptoms and marijuana may take months to be clear out of the body. Patient is able to take medication by mouth. Objective - Vital Signs/Intake and Output Vital Signs (last 24 hours): Temp Pulse Resp BP Pulse Ox 97.7 F 94 H 18 177/86 H 93 L 02/04/17 07:25 02/04/17 07:25 02/04/17 07:25 02/04/17 07:25 02/04/17 07:25 Intake and Output: 02/04/17 02/04/17 06:59 18:59 Intake Total 260 Output Total 0 Balance 260 - Medications Medications: Current Medications Acetaminophen (Tylenol 325mg Tab) 650 mg PO Q6 PRN PRN Reason: Pain, Mild (1-3) Amlodipine Besylate (Norvasc) 10 mg PO DAILY [facility] Aspirin (Aspirin Chewable) 81 mg PO DAILY [facility] Last Admin: 02/04/17 09:33 Dose: 81 mg Cinacalcet (Sensipar) 30 mg PO DAILY [facility] Clonidine HCl (Catapres) 0.2 mg PO TID [facility] Last Admin: 02/03/17 18:00 Dose: 0.2 mg Gabapentin (Neurontin) 300 mg PO DAILY [facility] Last Admin: 02/04/17 09:32 Dose: 300 mg Heparin Sodium (Porcine) (Heparin) 5,000 units SC Q12 [facility] Last Admin: 02/04/17 09:36 Dose: 5,000 units Hydralazine HCl (Apresoline) 10 mg IVP Q6H PRN PRN Reason: Systolic Blood Pressure Last Admin: 02/04/17 00:21 Dose: 10 mg Hydromorphone HCl (Dilaudid) 1 mg IVP Q4H PRN PRN Reason: abdominal pain Last Admin: 02/04/17 06:21 Dose: 1 mg Sodium Chloride (Sodium Chloride 0.9%) 1,000 mls @ 100 mls/hr IV .Q10H [facility] Last Admin: 02/04/17 07:02 Dose: Not Given Insulin Aspart (Novolog) 0 unit SC ACHS [facility] PRN Reason: Protocol Last Admin: 02/04/17 09:35 Dose: 6 unit Insulin Glargine (Lantus) 10 unit SC HS [facility] Last Admin: 02/03/17 22:03 Dose: Not Given Lisinopril (Zestril) 10 mg PO DAILY [facility] Last Admin: 02/04/17 09:31 Dose: 10 mg Metoclopramide HCl (Reglan) 10 mg PO Q8 PRN PRN Reason: Nausea/Vomiting Last Admin: 02/04/17 09:32 Dose: 10 mg Ondansetron HCl (Zofran Inj) 8 mg IVP Q6H PRN PRN Reason: Nausea/Vomiting Last Admin: 02/04/17 06:21 Dose: 8 mg Pantoprazole Sodium (Protonix Ec Tab) 40 mg PO DAILY [facility] Last Admin: 02/04/17 09:33 Dose: 40 mg Polyethylene Glycol (Miralax) 17 gm PO BID [facility] Last Admin: 02/03/17 18:01 Dose: 17 gm Sevelamer Carbonate (Renvela) 2,400 mg PO TID [facility] Last Admin: 02/03/17 18:01 Dose: 2,400 mg Vitamin B Complex/Vit C/Folic Acid (Nephro-Yomi) 1 tab PO 0800 [facility] - Labs Labs: 02/04/17 06:31 02/04/17 06:31 - Constitutional Appears: Unkempt - Head Exam Head Exam: ATRAUMATIC - Eye Exam Eye Exam: Normal appearance - Respiratory Exam Respiratory Exam: Clear to Ausculation Bilateral, NORMAL BREATHING PATTERN. absent: Respiratory Distress - Cardiovascular Exam Cardiovascular Exam: +S1, +S2 - GI/Abdominal Exam GI & Abdominal Exam: Soft, Tenderness. absent: Mass - Extremities Exam Additional comments: Good thrill on left arm AV fistula - Neurological Exam Neurological Exam: Alert, Awake, Oriented x3 - Psychiatric Exam Psychiatric exam: Agitated - Skin Skin Exam: Dry, Warm Assessment and Plan - Assessment and Plan (Free Text) Assessment: Diabetic gastroparesis -Vomiting improved slightly -Supportive care -NS @100ml/hr -Clear liquid diet, will advance as tolerated -Zofran 8mg, Reglan 10mg IV Q6 PRN -Dilauded 1mg IV Q4 PRN -Multiple endoscopies/GI workups this year -Consider GI consult if condition does not improve Hypertension, uncontrolled -Likely secondary to prolong vomiting -Overnight BP stable SBP 160s (baseline) -Continue Norvasc 10mg po -Continue clonidine 0.2mg po TID -Continue lisinopril 10mg po -Hydralazine 10mg IV PRN Q6hr ESRD -Patient's last dialysis was 02/02/17, will get dialyzed this afternoon -Nephrology consult, Dr. Quezada help appreciated -sensipar -Vitamin B comlex -Procrit 4000u IV MWF Diabetes -Insulin Glargine 10 units HS -ISS -Accucheck -Gabapentin 300mg po Chronic leukocytosis -Afebrile -Likely reactive or due to care home marijuana use Prophylactic measures -Protonix -SCD -Will confirm medication when mother brings in medication bottles All management per Dr. Chadwick
[2017-02-04] MEDS ORDERED: Epoetin Alfa Dialysis 40000 UNIT/ml Inj IV SCH (10:00)
[2017-02-04] MEDS: Multivitamin Vitamin B Complex (Nephro-Vite) Tab PO SCH (11:13)
[2017-02-04] MEDS: EPOETIN ALFA 4,000 UNIT/ML ML Dialysis IV SCH (12:19)
--- NOTE | 2017-02-04 15:34 | CP.PCM.PN ---
Subjective - Date & Time of Evaluation Date of Evaluation: 02/04/17 Time of Evaluation: 15:34 - Subjective Subjective: Pt seen during HD he wanted to come off counselled to complete the dialysis Objective - Vital Signs/Intake and Output Vital Signs (last 24 hours): Temp Pulse Resp BP Pulse Ox 97.8 F 79 20 202/87 H 98 02/04/17 14:40 02/04/17 14:40 02/04/17 14:40 02/04/17 14:40 02/04/17 14:40 Intake and Output: 02/04/17 02/04/17 06:59 18:59 Intake Total 260 Output Total 0 Balance 260 - Medications Medications: Current Medications Acetaminophen (Tylenol 325mg Tab) 650 mg PO Q6 PRN PRN Reason: Pain, Mild (1-3) Amlodipine Besylate (Norvasc) 10 mg PO DAILY [facility] Last Admin: 02/04/17 14:22 Dose: 10 mg Aspirin (Aspirin Chewable) 81 mg PO DAILY [facility] Last Admin: 02/04/17 09:33 Dose: 81 mg Cinacalcet (Sensipar) 30 mg PO DAILY [facility] Last Admin: 02/04/17 11:13 Dose: Not Given Clonidine HCl (Catapres) 0.2 mg PO TID [facility] Last Admin: 02/04/17 14:22 Dose: 0.2 mg Epoetin Oumar (Procrit) 4,000 unit IV MWF [facility] Last Admin: 02/04/17 12:19 Dose: 4,000 unit Gabapentin (Neurontin) 300 mg PO DAILY [facility] Last Admin: 02/04/17 09:32 Dose: 300 mg Heparin Sodium (Porcine) (Heparin) 5,000 units SC Q12 [facility] Last Admin: 02/04/17 09:36 Dose: 5,000 units Hydralazine HCl (Apresoline) 10 mg IVP Q6H PRN PRN Reason: Systolic Blood Pressure Last Admin: 02/04/17 14:50 Dose: 10 mg Hydromorphone HCl (Dilaudid) 1 mg IVP Q4H PRN PRN Reason: abdominal pain Last Admin: 02/04/17 14:59 Dose: 1 mg Sodium Chloride (Sodium Chloride 0.9%) 1,000 mls @ 100 mls/hr IV .Q10H [facility] Last Admin: 02/04/17 07:02 Dose: Not Given Insulin Aspart (Novolog) 0 unit SC ACHS [facility] PRN Reason: Protocol Last Admin: 02/04/17 13:08 Dose: Not Given Insulin Glargine (Lantus) 10 unit SC HS [facility] Last Admin: 02/03/17 22:03 Dose: Not Given Lisinopril (Zestril) 10 mg PO DAILY [facility] Last Admin: 02/04/17 09:31 Dose: 10 mg Metoclopramide HCl (Reglan) 10 mg PO Q8 PRN PRN Reason: Nausea/Vomiting Last Admin: 02/04/17 09:32 Dose: 10 mg Ondansetron HCl (Zofran Inj) 8 mg IVP Q6H PRN PRN Reason: Nausea/Vomiting Last Admin: 02/04/17 14:58 Dose: 8 mg Pantoprazole Sodium (Protonix Ec Tab) 40 mg PO DAILY [facility] Last Admin: 02/04/17 09:33 Dose: 40 mg Polyethylene Glycol (Miralax) 17 gm PO BID [facility] Last Admin: 02/03/17 18:01 Dose: 17 gm Sevelamer Carbonate (Renvela) 2,400 mg PO TID [facility] Last Admin: 02/04/17 11:13 Dose: Not Given Vitamin B Complex/Vit C/Folic Acid (Nephro-Yomi) 1 tab PO 0800 [facility] Last Admin: 02/04/17 11:13 Dose: Not Given - Labs Labs: 02/04/17 06:31 02/04/17 06:31
--- NOTE | 2017-02-04 18:41 | CARD ---
APPROVED REPORT EKG Measurement Heart [id number] <Conclusion> Normal sinus rhythm with sinus arrhythmia Minimal voltage criteria for LVH, may be normal variant Borderline ECG
[2017-02-04] MEDS: (Lantus) Insulin Glargine, Recombinant SC SCH (22:46)
[2017-02-05] MEDS: Sodium Chloride 0.9% 1,000 ML IV SCH ×2 (05:06→22:10)
[2017-02-05] MEDS: Multivitamin Vitamin B Complex (Nephro-Vite) Tab PO SCH (08:00)
[2017-02-05] MEDS: (Novolog) Insulin Aspart, Recombinant 100 u/ml 10 ml vial SC SCH ×4 (08:00→22:08)
[2017-02-05 08:39] LABS: BASO # 0.1 K/uL (0.0-0.2); BASO % 0.6 % (0.0-2.0); EOS % 0.3 % (0.0-4.0); HEMATOCRIT 35.4 % (35.0-51.0); LYMPH # 1.5 K/uL (1.0-4.3); LYMPH % 11.2 % (20.0-40.0); MEAN CELL VOLUME 88.8 fL (80.0-94.0); MEAN CORPUSCULAR HEMOGLOBIN 29.3 pg (27.0-31.0); MEAN PLATELET VOLUME 8.5 fL (7.2-11.7); MONO # 0.9 K/uL (0.0-0.8); MONO % 6.6 % (0.0-10.0); NRBC % 0.3 % (0.0-2.0); RED CELL DISTRIBUTION WIDTH 21.7 % (11.5-14.5); WHITE BLOOD COUNT 13.1 K/uL (4.8-10.8)
[2017-02-05 09:09] LABS: ALB/GLOB RATIO 1.2 (1.0-2.1); BILIRUBIN,TOTAL 0.8 mg/dL (0.2-1.3); CALCIUM 8.2 mg/dl (8.6-10.4); TOTAL PROTEIN 7.9 g/dL (6.3-8.3)
[2017-02-05] MEDS: Pantoprazole 40 mg EC Tab PO SCH (10:13)
[2017-02-05] MEDS: (Lantus) Insulin Glargine, Recombinant SC SCH (22:08)
--- NOTE | 2017-02-05 23:41 | CP.PCM.PN ---
Subjective - Date & Time of Evaluation Date of Evaluation: 02/05/17 Time of Evaluation: 11:00 - Subjective Subjective: renal follow up note no events ovenirght PE: nad vitals reviewed no jvd heent normal op moist abd soft no resp distress esrd/dm/htn hd mwf but did not finish session yesterday so will do another session today Objective - Vital Signs/Intake and Output Vital Signs (last 24 hours): Temp Pulse Resp BP Pulse Ox 98 F 98 H 20 115/70 94 L 02/05/17 15:00 02/05/17 15:00 02/05/17 15:00 02/05/17 15:00 02/05/17 15:00 Intake and Output: 02/05/17 02/06/17 18:59 06:59 Intake Total 240 Balance 240 - Medications Medications: Current Medications Acetaminophen (Tylenol 325mg Tab) 650 mg PO Q6 PRN PRN Reason: Pain, Mild (1-3) Amlodipine Besylate (Norvasc) 10 mg PO DAILY [facility] Last Admin: 02/05/17 10:13 Dose: Not Given Aspirin (Aspirin Chewable) 81 mg PO DAILY [facility] Last Admin: 02/05/17 10:12 Dose: Not Given Cinacalcet (Sensipar) 30 mg PO DAILY [facility] Last Admin: 02/05/17 10:00 Dose: Not Given Clonidine HCl (Catapres) 0.2 mg PO TID [facility] Last Admin: 02/05/17 17:13 Dose: Not Given Epoetin Oumar (Procrit) 4,000 [place] [facility] [place] Admin: 02/04/17 12:19 Dose: 4,000 unit Gabapentin (Neurontin) 300 mg PO DAILY [facility] Last Admin: 02/05/17 10:13 Dose: Not Given Heparin Sodium (Porcine) (Heparin) 5,000 units SC Q12 [facility] Last Admin: 02/05/17 22:07 Dose: Not Given Hydralazine HCl (Apresoline) 10 mg IVP Q6H PRN PRN Reason: Systolic Blood Pressure Last Admin: 02/05/17 01:19 Dose: 10 mg Hydromorphone HCl (Dilaudid) 1 mg IVP Q4H PRN PRN Reason: abdominal pain Last Admin: 02/05/17 21:52 Dose: 1 mg Sodium Chloride (Sodium Chloride 0.9%) 1,000 mls @ 100 mls/hr IV .Q10H [facility] Last Admin: 02/05/17 22:10 Dose: Not Given Insulin Aspart (Novolog) 0 unit SC ACHS [facility] PRN Reason: Protocol Last Admin: 02/05/17 22:08 Dose: Not Given Insulin Glargine (Lantus) 10 unit SC HS [facility] Last Admin: 02/05/17 22:08 Dose: Not Given Lisinopril (Zestril) 10 mg PO DAILY [facility] Last Admin: 02/05/17 10:14 Dose: Not Given Metoclopramide HCl (Reglan) 10 mg PO Q8 PRN PRN Reason: Nausea/Vomiting Last Admin: 02/05/17 09:29 Dose: 10 mg Ondansetron HCl (Zofran Inj) 8 mg IVP Q6H PRN PRN Reason: Nausea/Vomiting Last Admin: 02/05/17 22:00 Dose: 8 mg Pantoprazole Sodium (Protonix Ec Tab) 40 mg PO DAILY [facility] Last Admin: 02/05/17 10:13 Dose: Not Given Polyethylene Glycol (Miralax) 17 gm PO BID [facility] Last Admin: 02/03/17 18:01 Dose: 17 gm Sevelamer Carbonate (Renvela) 2,400 mg PO TID [facility] Last Admin: 02/05/17 17:14 Dose: Not Given Vitamin B Complex/Vit C/Folic Acid (Nephro-Yomi) 1 tab PO 0800 [facility] Last Admin: 02/05/17 08:00 Dose: Not Given - Labs Labs: 02/05/17 08:22 02/05/17 08:22
[2017-02-06 07:55] LABS: BASO # 0.1 K/uL (0.0-0.2); EOS # 0.1 K/uL (0.0-0.7); EOS % 0.6 % (0.0-4.0); HEMATOCRIT 37.3 % (35.0-51.0); LYMPH # 1.8 K/uL (1.0-4.3); LYMPH % 14.6 % (20.0-40.0); MEAN CELL VOLUME 88.7 fL (80.0-94.0); MEAN CORPUSCULAR HEMOGLOBIN 28.4 pg (27.0-31.0); MEAN PLATELET VOLUME 8.4 fL (7.2-11.7); MONO # 1.2 K/uL (0.0-0.8); MONO % 9.7 % (0.0-10.0); NRBC % 0.2 % (0.0-2.0); RED CELL DISTRIBUTION WIDTH 22.3 % (11.5-14.5); WHITE BLOOD COUNT 12.3 K/uL (4.8-10.8)
[2017-02-06] MEDS: Sodium Chloride 0.9% 1,000 ML IV SCH ×3 (08:00→20:50)
[2017-02-06 08:26] LABS: BILIRUBIN,TOTAL 0.9 mg/dL (0.2-1.3); CALCIUM 8.3 mg/dl (8.6-10.4); POTASSIUM 4.4 mmol/L (3.6-5.2); TOTAL PROTEIN 8.2 g/dL (6.3-8.3)
[2017-02-06] MEDS: (Novolog) Insulin Aspart, Recombinant 100 u/ml 10 ml vial SC SCH ×4 (08:29→21:30)
[2017-02-06] MEDS: Multivitamin Vitamin B Complex (Nephro-Vite) Tab PO SCH (10:42)
[2017-02-06] MEDS: Pantoprazole 40 mg EC Tab PO SCH (10:43)
[2017-02-06] MEDS: (Lantus) Insulin Glargine, Recombinant SC SCH (21:58)
[2017-02-07] MEDS: Multivitamin Vitamin B Complex (Nephro-Vite) Tab PO SCH (08:36)
[2017-02-07] MEDS: (Novolog) Insulin Aspart, Recombinant 100 u/ml 10 ml vial SC SCH ×4 (08:36→23:00)
[2017-02-07] MEDS: EPOETIN ALFA 4,000 UNIT/ML ML Dialysis IV SCH (10:26)
[2017-02-07] MEDS: Pantoprazole 40 mg EC Tab PO SCH ×2 (14:11→15:18)
--- NOTE | 2017-02-07 14:37 | CP.PCM.PN ---
<Wiliam Babb - Last Filed: 02/07/17 14:04> Subjective - Date & Time of Evaluation Date of Evaluation: 02/07/17 Time of Evaluation: 14:04 - Subjective Subjective: PGY1 Medicine Note for Dr. Reese (covering for Dr. Chadwick) Patient seen and examined at bedside this morning. Patient was undergoing dialysis treatment during the exam. He reports continued vomiting and abdominal pain. He says the pain in his stomach is consistent compared to yesterday and is constant. Patient is visibly upset but states he is able to tolerate the pain currently. Denies fevers, chills, headaches, sob, chest pain, diarrhea or constipation. Objective - Vital Signs/Intake and Output Vital Signs (last 24 hours): Temp Pulse Resp BP Pulse Ox 97.6 F 97 H 20 95/57 L 95 02/07/17 10:10 02/07/17 12:00 02/07/17 10:00 02/07/17 12:05 02/07/17 08:40 Intake and Output: 02/07/17 02/07/17 06:59 18:59 Intake Total 400 Output Total 0 Balance 400 - Medications Medications: Current Medications Acetaminophen (Tylenol 325mg Tab) 650 mg PO Q6 PRN PRN Reason: Pain, Mild (1-3) Amlodipine Besylate (Norvasc) 10 mg PO DAILY [facility] Last Admin: 02/06/17 10:43 Dose: Not Given Aspirin (Aspirin Chewable) 81 mg PO DAILY [facility] Last Admin: 02/06/17 10:42 Dose: Not Given Cinacalcet (Sensipar) 30 mg PO DAILY [facility] Last Admin: 02/06/17 10:43 Dose: Not Given Clonidine HCl (Catapres-Tts3 0.3 Mg/24 Hr) 1 patch TD Q7D@1000 [facility] Last Admin: 02/06/17 21:53 Dose: 1 patch Epoetin Oumar (Procrit) 4,000 unit IV MWF [facility] Last Admin: 02/07/17 10:26 Dose: 4,000 unit Gabapentin (Neurontin) 300 mg PO DAILY [facility] Last Admin: 02/06/17 10:43 Dose: Not Given Hydralazine HCl (Apresoline) 10 mg IVP Q6H PRN PRN Reason: Systolic Blood Pressure Last Admin: 02/06/17 18:43 Dose: 10 mg Hydromorphone HCl (Dilaudid) 1 mg IVP Q4H PRN PRN Reason: abdominal pain Last Admin: 02/07/17 07:50 Dose: 1 mg Sodium Chloride (Sodium Chloride 0.9%) 1,000 mls @ 50 mls/hr IV .Q20H [facility] Last Admin: 02/06/17 20:50 Dose: 50 mls/hr Insulin Aspart (Novolog) 0 unit SC ACHS [facility] PRN Reason: Protocol Last Admin: 02/07/17 11:39 Dose: Not Given Insulin Glargine (Lantus) 10 unit SC HS [facility] Last Admin: 02/06/17 21:58 Dose: Not Given Lisinopril (Zestril) 10 mg PO DAILY [facility] Last Admin: 02/06/17 10:44 Dose: Not Given Metoclopramide HCl (Reglan) 10 mg PO Q8 PRN PRN Reason: Nausea/Vomiting Last Admin: 02/05/17 09:29 Dose: 10 mg Ondansetron HCl (Zofran Inj) 8 mg IVP Q6H PRN PRN Reason: Nausea/Vomiting Last Admin: 02/07/17 08:36 Dose: 8 mg Pantoprazole Sodium (Protonix Ec Tab) 40 mg PO DAILY [facility] Last Admin: 02/06/17 10:43 Dose: Not Given Polyethylene Glycol (Miralax) 17 gm PO BID [facility] Last Admin: 02/03/17 18:01 Dose: 17 gm Sevelamer Carbonate (Renvela) 2,400 mg PO TID [facility] Last Admin: 02/06/17 18:32 Dose: Not Given Vitamin B Complex/Vit C/Folic Acid (Nephro-Yomi) 1 tab PO 0800 [facility] Last Admin: 02/07/17 08:36 Dose: Not Given - Labs Labs: 02/06/17 07:41 02/06/17 07:41 - Constitutional Appears: Unkempt - Head Exam Head Exam: ATRAUMATIC - Eye Exam Eye Exam: EOMI, Normal appearance - ENT Exam ENT Exam: Mucous Membranes Moist - Respiratory Exam Respiratory Exam: Clear to Ausculation Bilateral, NORMAL BREATHING PATTERN. absent: Accessory Muscle Use, Rales, Rhonchi, Wheezes, Respiratory Distress - Cardiovascular Exam Cardiovascular Exam: REGULAR RHYTHM, +S1 - GI/Abdominal Exam GI & Abdominal Exam: Soft, Tenderness (mild LUQ tenderness), Normal Bowel Sounds. absent: Distended, Firm, Guarding, Rigid - Extremities Exam Additional comments: currently getting dialysis on left arm AV fistula - Neurological Exam Neurological Exam: Alert, Awake, Oriented x3 - Psychiatric Exam Psychiatric exam: Agitated (visibly upset, tearing up complaining of the pain. ) - Skin Skin Exam: Dry, Warm Assessment and Plan - Assessment and Plan (Free Text) Plan: Diabetic gastroparesis - GI consulted, Dr. Armstrong, help appreciated - Vomiting minimal to no improvement - Supportive care - Clear liquid diet, will advance as tolerated - NS @50ml/hr - Zofran 8mg IV Q6 PRN - Reglan 10mg IV Q8 PRN - Dilauded 1mg IV Q6H PRN - Multiple endoscopies/GI workups this year - follow up GI recs Hypertension, uncontrolled - Likely secondary to prolong vomiting - SBP ranges 178 to 58 (very variable) - Continue Norvasc 10mg PO - Continue clonidine 0.3mg TD Q7D - Continue lisinopril 10mg PO - Hydralazine 10mg IV Q6H PRN ESRD - Nephrology consult, Dr. Quezada help appreciated - Patient receiving dialysis treatment today - sensipar 30mg PO daily - Vitamin B comlex - Procrit 4000u IV MWF Diabetes - Insulin Glargine 10 units HS - ISS - Accucheck - Gabapentin 300mg po Chronic leukocytosis - Afebrile - Likely reactive or due to oil heaterman marijuana use Prophylactic measures - Protonix - SCD Case discussed with Dr. Reese (covering for Dr. Chadwick) Wiliam Babb PGY1 <Comfort Reese V - Last Filed: 02/07/17 22:55> Objective - Vital Signs/Intake and Output Vital Signs (last 24 hours): Temp Pulse Resp BP Pulse Ox 98.9 F 91 H 20 130/77 100 02/07/17 15:20 02/07/17 15:20 02/07/17 15:20 02/07/17 15:46 02/07/17 15:20 Intake and Output: 02/07/17 02/08/17 18:59 06:59 Intake Total 200 Balance 200 - Medications Medications: Current Medications Acetaminophen (Tylenol 325mg Tab) 650 mg PO Q6 PRN PRN Reason: Pain, Mild (1-3) Amlodipine Besylate (Norvasc) 10 mg PO DAILY [facility] Last Admin: 02/07/17 14:11 Dose: Not Given Aspirin (Aspirin Chewable) 81 mg PO DAILY [facility] Last Admin: 02/07/17 14:10 Dose: Not Given Cinacalcet (Sensipar) 30 mg PO DAILY [facility] Last Admin: 02/07/17 14:11 Dose: Not Given Clonidine HCl (Catapres-Tts3 0.3 Mg/24 Hr) 1 patch TD Q7D@1000 [facility] Last Admin: 02/06/17 21:53 Dose: 1 patch Epoetin Oumar (Procrit) 4,000 unit IV MWF [facility] Gabapentin (Neurontin) 300 mg PO DAILY [facility] Last Admin: 02/07/17 14:11 Dose: Not Given Hydralazine HCl (Apresoline) 10 mg IVP Q6H PRN PRN Reason: Systolic Blood Pressure Last Admin: 02/06/17 18:43 Dose: 10 mg Hydromorphone HCl (Dilaudid) 1 mg IVP Q6H PRN PRN Reason: abdominal pain Last Admin: 02/07/17 18:03 Dose: 1 mg Sodium Chloride (Sodium Chloride 0.9%) 1,000 mls @ 50 mls/hr IV .Q20H [facility] Last Admin: 02/07/17 20:00 Dose: 50 mls/hr Insulin Aspart (Novolog) 0 unit SC [facility] PRN Reason: Protocol Last Admin: 02/07/17 17:00 Dose: Not Given Insulin Glargine (Lantus) 5 unit SC [facility] Last Admin: 02/07/17 22:31 Dose: 5 u Lisinopril (Zestril) 10 mg PO DAILY [facility] Last Admin: 02/07/17 14:12 Dose: Not Given Metoclopramide HCl (Reglan) 10 mg PO Q8 PRN PRN Reason: Nausea/Vomiting Last Admin: 02/05/17 09:29 Dose: 10 mg Ondansetron HCl (Zofran Inj) 8 mg IVP Q6H PRN PRN Reason: Nausea/Vomiting Last Admin: 02/07/17 22:32 Dose: 8 mg Pantoprazole Sodium (Protonix Ec Tab) 40 mg PO DAILY [facility] Last Admin: 02/07/17 15:18 Dose: 40 mg Polyethylene Glycol (Miralax) 17 gm PO BID [facility] Last Admin: 02/03/17 18:01 Dose: 17 gm Sevelamer Carbonate (Renvela) 2,400 mg PO TID [facility] Last Admin: 02/07/17 17:42 Dose: Not Given Vitamin B Complex/Vit C/Folic Acid (Nephro-Yomi) 1 tab PO 0800 [facility] Last Admin: 02/07/17 08:36 Dose: Not Given - Labs Labs: 02/06/17 07:41 02/06/17 07:41 Attending/Attestation - Attestation I have personally seen and examined this patient.: Yes I have fully participated in the care of the patient.: Yes I have reviewed all pertinent clinical information, including history, physical exam and plan: Yes Notes (Text): Hospitalist service covering Dr. Chadwick service. Patient's PMD is away until 02/2017. 36-year-old male history of diabetic gastroparesis, uncontrolled hypertension with baseline of systolic 170s to 180s, on end-stage renal disease on dialysis, history of diabetes history of substance abuse including but not limited to cannabis comes in for intractable abdominal pain requiring narcotic medications. A previously seen patient as initial rapid response on the history of admission. In contrast, patient's belly exam is benign. There is no guarding and there is no rigidity. Patient is throwing up at bedside. Patient has been on Dilaudid 1 mg IV every 4 hours. Noted patient had episode of hypotension during dialysis today and appears clonidine patch was removed to alleviate the pressure. Patient was seen postdialysis. I was informed by the nurse it patient refused medications including aspirin, Neurontin, and Protonix, and 2 antihypertensive medications. Patient has been seen by GI in the past multiple admissions multiple times. Will consult Dr. Armstrong and who is seen patient previously. We'll lower patient's Lantus from 10 units in the evening to 5 units. Patient is attempting to drink clear liquids. It is hard to discern if patient has withdrawal from narcotic medication or if this is persistent exacerbation from diabetic gastroparesis. Patient has preference for Zofran IV for antinausea. Patient provided cup of ice given that his lips are chapped. We'll endorsed colleague to collect to follow-up for the rest the week. Assessment/Plan 1. Diabetic gastroparesis - GI consulted, Dr. Armstrong, help appreciated - Vomiting minimal to no improvement - Supportive care - Clear liquid diet, will advance as tolerated - NS @50ml/hr - Zofran 8mg IV Q6 PRN - Reglan 10mg IV Q8 PRN - Dilauded 1mg IV Q6H PRN (taper down) - Multiple endoscopies/GI workups this year - follow up GI recs 2. Hypertension, uncontrolled - Likely secondary to prolong vomiting - SBP: baseline 170-180s - Patient refused antihypertensives today following completion of dialysis - Continue Norvasc 10mg PO Daily - hold Clonidine patch in light of hypotensive episode during dialysis - Continue lisinopril 10mg PO PO daily - d/c Hydralazine 10mg IV Q6H PRN 3. ESRD - Nephrology consult, Dr. Quezada help appreciated - Patient received dialysis treatment today and has not tolerated it during hospitalization - sensipar 30mg PO daily - Vitamin B comlex - Procrit 4000u IV MWF 4. Diabetes - Lowered to Insulin Glargine 5 units HS - ISS - Accucheck - Gabapentin 300mg po 7. Mild leukocytosis - Afebrile - Likely reactive 8. Prophylactic measures - Protonix - SCD
[2017-02-07] MEDS: Sodium Chloride 0.9% 1,000 ML IV SCH (20:00)
[2017-02-07] MEDS: (Lantus) Insulin Glargine, Recombinant SC SCH (22:31)
[2017-02-08] MEDS: (Novolog) Insulin Aspart, Recombinant 100 u/ml 10 ml vial SC SCH ×4 (07:58→21:37)
[2017-02-08] MEDS: Multivitamin Vitamin B Complex (Nephro-Vite) Tab PO SCH (08:37)
--- NOTE | 2017-02-08 10:04 | CP.PCM.PN ---
<Saranya Dawkins DO - Last Filed: 02/08/17 13:42> Subjective - Date & Time of Evaluation Date of Evaluation: 02/08/17 Time of Evaluation: 10:00 - Subjective Subjective: PGY2 medicine progress note for Dr. Francis (Covering Dr. Chadwick) Patient seen and examined. Patient vomiting during examination and appears visibly uncomfortable. Patient reports poor sleep due to nausea and vomiting. Patient reports he is intermittently able to tolerate his liquid diet. Patient states he has not used marijuana in almost one month's time. Objective - Vital Signs/Intake and Output Vital Signs (last 24 hours): Temp Pulse Resp BP Pulse Ox 98.1 F 88 20 159/76 H 97 02/08/17 08:00 02/08/17 08:00 02/08/17 08:00 02/08/17 08:00 02/08/17 08:00 Intake and Output: 02/08/17 02/08/17 06:59 18:59 Intake Total 400 Balance 400 - Medications Medications: Current Medications Acetaminophen (Tylenol 325mg Tab) 650 mg PO Q6 PRN PRN Reason: Pain, Mild (1-3) Amlodipine Besylate (Norvasc) 10 mg PO DAILY [facility] Last Admin: 02/07/17 14:11 Dose: Not Given Aspirin (Aspirin Chewable) 81 mg PO DAILY [facility] Last Admin: 02/08/17 09:58 Dose: Not Given Cinacalcet (Sensipar) 30 mg PO DAILY [facility] Last Admin: 02/08/17 09:57 Dose: Not Given Clonidine HCl (Catapres-Tts3 0.3 Mg/24 Hr) 1 patch TD Q7D@1000 [facility] Last Admin: 02/06/17 21:53 Dose: 1 patch Epoetin Oumar (Procrit) 4,000 unit IV MWF [facility] Gabapentin (Neurontin) 300 mg PO DAILY [facility] Last Admin: 02/07/17 14:11 Dose: Not Given Hydralazine HCl (Apresoline) 10 mg IVP Q6H PRN PRN Reason: Systolic Blood Pressure Last Admin: 02/08/17 04:34 Dose: 10 mg Hydromorphone HCl (Dilaudid) 1 mg IVP Q6H PRN PRN Reason: abdominal pain Last Admin: 02/08/17 06:43 Dose: 1 mg Sodium Chloride (Sodium Chloride 0.9%) 1,000 mls @ 50 mls/hr IV .Q20H [facility] Last Admin: 02/07/17 20:00 Dose: 50 mls/hr Insulin Aspart (Novolog) 0 unit SC ACHS [facility] PRN Reason: Protocol Last Admin: 02/08/17 07:58 Dose: Not Given Insulin Glargine (Lantus) 5 unit SC HS [facility] Last Admin: 02/07/17 22:31 Dose: 5 u Lisinopril (Zestril) 10 mg PO DAILY [facility] Last Admin: 02/07/17 14:12 Dose: Not Given Metoclopramide HCl (Reglan) 10 mg IVP Q8 PRN PRN Reason: Nausea/Vomiting Ondansetron HCl (Zofran Inj) 8 mg IVP Q6H PRN PRN Reason: Nausea/Vomiting Last Admin: 02/08/17 04:39 Dose: 8 mg Pantoprazole Sodium (Protonix Inj) 40 mg IVP DAILY [facility] Last Admin: 02/08/17 09:53 Dose: 40 mg Polyethylene Glycol (Miralax) 17 gm PO BID [facility] Last Admin: 02/03/17 18:01 Dose: 17 gm Sevelamer Carbonate (Renvela) 2,400 mg PO TID [facility] Last Admin: 02/08/17 09:57 Dose: Not Given Vitamin B Complex/Vit C/Folic Acid (Nephro-Yomi) 1 tab PO 0800 [facility] Last Admin: 02/08/17 08:37 Dose: 1 tab - Labs Labs: 02/06/17 07:41 02/06/17 07:41 - Constitutional Appears: No Acute Distress, Other (uncomfortable) - Head Exam Head Exam: ATRAUMATIC, NORMOCEPHALIC - Eye Exam Eye Exam: EOMI - ENT Exam ENT Exam: Mucous Membranes Moist - Respiratory Exam Respiratory Exam: Clear to Ausculation Bilateral - Cardiovascular Exam Cardiovascular Exam: +S1, +S2 - GI/Abdominal Exam GI & Abdominal Exam: Soft, Tenderness (epigastric), Hypoactive Bowel Sounds - Extremities Exam Additional comments: left upper arm AV fistula with palpable thrill - Neurological Exam Neurological Exam: Alert, Awake - Psychiatric Exam Psychiatric exam: Normal Affect - Skin Skin Exam: Warm Assessment and Plan - Assessment and Plan (Free Text) Assessment: Diabetic gastroparesis - GI consulted, Dr. Armstrong, help appreciated - Vomiting minimal to no improvement - Supportive care - Clear liquid diet, will advance as tolerated - NS @50ml/hr - Zofran 8mg IV Q6 PRN - Reglan 10mg IV Q8 PRN - Dilauded 1mg IV Q6H PRN - Multiple endoscopies/GI workups this year - follow up GI recs Hypertension, uncontrolled - Likely secondary to prolonged vomiting - SBP ranges 178 to 58 (very variable) - Continue Norvasc 10mg PO - Continue clonidine 0.3mg TD Q7D - patient having issue tolerating PO medications, will change PO lisinopril 10mg to IV enalapril 0.625mg once today - Hydralazine 10mg IV Q6H PRN SBP >160 ESRD - Nephrology consult, Dr. 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 Francis (covering for Dr. Chadwick) <Vasquez Francis - Last Filed: 02/08/17 14:03> Objective - Vital Signs/Intake and Output Vital Signs (last 24 hours): Temp Pulse Resp BP Pulse Ox 98.1 F 92 H 20 167/92 H 97 02/08/17 08:00 02/08/17 13:18 02/08/17 08:00 02/08/17 13:18 02/08/17 08:00 Intake and Output: 02/08/17 02/08/17 06:59 18:59 Intake Total 400 Balance 400 - Medications Medications: Current Medications Acetaminophen (Tylenol 325mg Tab) 650 mg PO Q6 PRN PRN Reason: Pain, Mild (1-3) Amlodipine Besylate (Norvasc) 10 mg PO DAILY [facility] Last Admin: 02/08/17 09:58 Dose: Not Given Aspirin (Aspirin Chewable) 81 mg PO DAILY [facility] Last Admin: 02/08/17 09:58 Dose: Not Given Cinacalcet (Sensipar) 30 mg PO DAILY [facility] Last Admin: 02/08/17 09:57 Dose: Not Given Clonidine HCl (Catapres-Tts3 0.3 Mg/24 Hr) 1 patch TD Q7D@1000 [facility] Last Admin: 02/06/17 21:53 Dose: 1 patch Gabapentin (Neurontin) 300 mg PO DAILY [facility] Last Admin: 02/08/17 09:58 Dose: Not Given Hydralazine HCl (Apresoline) 10 mg IVP Q6H PRN PRN Reason: Systolic Blood Pressure Hydromorphone HCl (Dilaudid) 1 mg IVP Q6H PRN PRN Reason: abdominal pain Last Admin: 02/08/17 13:19 Dose: 1 mg Sodium Chloride (Sodium Chloride 0.9%) 1,000 mls @ 50 mls/hr IV .Q20H [facility] Last Admin: 02/07/17 20:00 Dose: 50 mls/hr Insulin Aspart (Novolog) 0 unit SC ACHS [facility] PRN Reason: Protocol Last Admin: 02/08/17 13:00 Dose: Not Given Insulin Glargine (Lantus) 5 unit SC HS [facility] Last Admin: 02/07/17 22:31 Dose: 5 u Metoclopramide HCl (Reglan) 5 mg IVP Q8 PRN PRN Reason: NAUSEA/VOMITING -- 2ND LINE Last Admin: 02/08/17 10:59 Dose: 5 mg Ondansetron HCl (Zofran Inj) 8 mg IVP Q6H PRN PRN Reason: Nausea/Vomiting Last Admin: 02/08/17 04:39 Dose: 8 mg Pantoprazole Sodium (Protonix Inj) 40 mg IVP DAILY [facility] Last Admin: 02/08/17 09:53 Dose: 40 mg Polyethylene Glycol (Miralax) 17 gm PO BID [facility] Last Admin: 02/03/17 18:01 Dose: 17 gm Sevelamer Carbonate (Renvela) 2,400 mg PO TID [facility] Last Admin: 02/08/17 09:57 Dose: Not Given Vitamin B Complex/Vit C/Folic Acid (Nephro-Yomi) 1 tab PO 0800 [facility] Last Admin: 02/08/17 08:37 Dose: 1 tab - Labs Labs: 02/08/17 11:19 02/08/17 11:19 Attending/Attestation - Attestation I have personally seen and examined this patient.: Yes I have fully participated in the care of the patient.: Yes I have reviewed all pertinent clinical information, including history, physical exam and plan: Yes Notes (Text): 02/08/17 14:03 Medical attending: Patient was seen and examined by me, reviewed the above note by medical fee clerk and agree with this. The hospitalist service is currently covering Dr Farrukh garcia the next couple of days. This is my first time meeting patient, however I did review some the order notes and the patient has extensive and numerous previous hospitalizations. Last week appears was discharged and then immediately returned to the hospital. It appears that he has a history of diabetic gastroparesis. He also has end- stage renal disease as well. From what I'm being told he is commonly refusing medications either from nausea or vomiting. However also told that often refuses IV medication for blood pressure as well The only medication that he takes his that Dilaudid which is being given every 6 hours. This unfortunately actually does make the patient's abdominal situation worse. As it slows down his GI motility. I understand that he was actually getting more frequently this was just changed yesterday I explained this to him. Thank you very much, Vasquez Francis.
[2017-02-08 11:26] LABS: EOS # 0.2 K/uL (0.0-0.7); NRBC % 0.3 % (0.0-2.0)
[2017-02-08 11:31] LABS: BASO # 0.1 K/uL (0.0-0.2); BASO % 0.8 % (0.0-2.0); EOS % 1.2 % (0.0-4.0); HEMATOCRIT 38.6 % (35.0-51.0); LYMPH % 11.5 % (20.0-40.0); MEAN CELL VOLUME 89.9 fL (80.0-94.0); MEAN CORPUSCULAR HEMOGLOBIN 28.6 pg (27.0-31.0); MEAN CORPUSCULAR HGB CONC 31.8 g/dL (33.0-37.0); MEAN PLATELET VOLUME 9.2 fL (7.2-11.7); MONO # 1.6 K/uL (0.0-0.8); WHITE BLOOD COUNT 17.4 K/uL (4.8-10.8)
[2017-02-08 11:49] LABS: BILIRUBIN,TOTAL 1.1 mg/dL (0.2-1.3); CALCIUM 7.6 mg/dl (8.6-10.4); POTASSIUM 4.7 mmol/L (3.6-5.2)
[2017-02-08] MEDS ORDERED: Enalaprilat 2.5 MG/2 ML IVP ONE (13:31)
--- NOTE | 2017-02-08 14:44 | CP.PCM.PN ---
Subjective - Date & Time of Evaluation Date of Evaluation: 02/08/17 Time of Evaluation: 14:41 - Subjective Subjective: Follow up Nephrology Consultation Note Assessment: Stable recurrent nausea/vomiting, cyclic emesis syndrome, marijuana abuse, gastroparesis Diabetic chronic Kidney Disease (E11.22) Hypertensive Chronic Kidney Disease (I12.0) End stage renal disease (N18.6) dependence on hemodialysis (Z99.2) (MWF) via AVF Anemia (D64.9), Hyperphosphatemia (E83.39), Secondary Hyperparathyroidism (E21.1 ), HTN (I12.0) uncontrolled severe HTN ? compliance to meds Plan: dialysis tomorrow as ordered. Continue with Nephrovite 1 tab/day. no MOHINI as Hb >11 Continue with phos binders BP control with meds as ordered. secondary HTN work up with plasma metanephrine , renin/ioana and Renal artery doppler has been negative. agree with IV vasotec. can give IV labetalol prn as well if needed Glycemic control, Dialysis consistent diet Further work up/management as per primary team Dose meds/antibiotics (if needed) for ESRD status. Avoid fleets enema/magnesium based laxatives. pt to abstain from marijuana Thanks for allowing me to participate in care of your patient. Will follow patient with you. Please call if any Qs Dr Brenton Larsen Office: [phone] HPI: Pt is a 36 y/o M with hx of ESRD on hemodialysis (MWF) via AVF, last dialysis yesterday, chronic anemia, hyperphosphatemia, secondary hyperparathyroidism, Diabetes Mellitus, hypertension, recurrent nausea/vomiting and multiple hospitalization for same came back with nausea/vomitting. continue to smoke marijuana feels better Denies chest pain, palpitation, shortness of breath, leg swelling. improved nausea no vomitting. refusing to take PO meds, says I don't want to push it too fast Physical Examination: General Appearance: uncomfortable, in no acute respiratory distress, co- operative . Vitals reviewed and noted as below Head; Atraumatic, normocephalic ENT: no ulcers no thrush. Tongue is midline. Oropharynx: no rash or ulcers. EYES: Pupils are equal, round and reactive to light accommodation. Eye muscles and extraocular movement intact. Sclera is anicteric. Neck; supple no lymphadenopathy, no thyromegaly or bruit Lungs: Normal respiratory rate/effort. Breath sounds bilateral equal and clear Heart: Normal rate. s1s2 normal. No rub or gallop. Extremities: no edema. No varicose veins Neurological: Patient is alert, awake and oriented to person, place and time. No focal deficit. Strength bilateral appropriate and equal Skin: Warm and dry. Normal turgor. No rash. Palpitation: Normal elasticity for age Abdomen: Abdomen is soft. Bowel sounds +. There is no epigastric abdominal tenderness, no guarding/rigidity or organomegaly Psych: limited insight and has normal affect/mood MSK: no joint tenderness or swelling. Digits and nails normal, no deformity. : kidney or bladder not palpable. Access: AVF Labs/imaging reviewed. Past medical history, past surgical history, family history, social history, allergy reviewed and noted as below Family Hx: no hx of CKD. Non contributory Objective - Vital Signs/Intake and Output Vital Signs (last 24 hours): Temp Pulse Resp BP Pulse Ox 98.1 F 84 20 156/80 H 97 02/08/17 08:00 02/08/17 14:35 02/08/17 08:00 02/08/17 14:35 02/08/17 08:00 Intake and Output: 02/08/17 02/08/17 06:59 18:59 Intake Total 400 Balance 400 - Medications Medications: Current Medications Acetaminophen (Tylenol 325mg Tab) 650 mg PO Q6 PRN PRN Reason: Pain, Mild (1-3) Amlodipine Besylate (Norvasc) 10 mg PO DAILY [facility] Last Admin: 02/08/17 09:58 Dose: Not Given Aspirin (Aspirin Chewable) 81 mg PO DAILY [facility] Last Admin: 02/08/17 14:05 Dose: 81 mg Cinacalcet (Sensipar) 30 mg PO DAILY [facility] Last Admin: 02/08/17 09:57 Dose: Not Given Clonidine HCl (Catapres-Tts3 0.3 Mg/24 Hr) 1 patch TD Q7D@1000 [facility] Last Admin: 02/06/17 21:53 Dose: 1 patch Gabapentin (Neurontin) 300 mg PO DAILY [facility] Last Admin: 02/08/17 09:58 Dose: Not Given Hydralazine HCl (Apresoline) 10 mg IVP Q6H PRN PRN Reason: Systolic Blood Pressure Hydromorphone HCl (Dilaudid) 1 mg IVP Q6H PRN PRN Reason: abdominal pain Last Admin: 02/08/17 13:19 Dose: 1 mg Sodium Chloride (Sodium Chloride 0.9%) 1,000 mls @ 50 mls/hr IV .Q20H [facility] Last Admin: 02/07/17 20:00 Dose: 50 mls/hr Insulin Aspart (Novolog) 0 unit SC ACHS [facility] PRN Reason: Protocol Last Admin: 02/08/17 13:00 Dose: Not Given Insulin Glargine (Lantus) 5 unit SC HS [facility] Last Admin: 02/07/17 22:31 Dose: 5 u Metoclopramide HCl (Reglan) 5 mg IVP Q8 PRN PRN Reason: NAUSEA/VOMITING -- 2ND LINE Last Admin: 02/08/17 10:59 Dose: 5 mg Ondansetron HCl (Zofran Inj) 8 mg IVP Q6H PRN PRN Reason: Nausea/Vomiting Last Admin: 02/08/17 04:39 Dose: 8 mg Pantoprazole Sodium (Protonix Inj) 40 mg IVP DAILY [facility] Last Admin: 02/08/17 09:53 Dose: 40 mg Polyethylene Glycol (Miralax) 17 gm PO BID [facility] Last Admin: 02/03/17 18:01 Dose: 17 gm Sevelamer Carbonate (Renvela) 2,400 mg PO TID [facility] Last Admin: 02/08/17 09:57 Dose: Not Given Vitamin B Complex/Vit C/Folic Acid (Nephro-Yomi) 1 tab PO 0800 [facility] Last Admin: 02/08/17 08:37 Dose: 1 tab - Labs Labs: 02/08/17 11:19 02/08/17 11:19
[2017-02-08] MEDS: Sodium Chloride 0.9% 1,000 ML IV SCH (15:00)
[2017-02-08] MEDS ORDERED: Piperacill/Tazo 2.25gm in Dex 2.25 GM/50 ML BAG IVPB SCH (15:30)
[2017-02-08] MEDS: Piperacill/Tazo 2.25gm in Dex 2.25 GM/50 ML BAG IVPB SCH (18:23)
[2017-02-08] MEDS: (Lantus) Insulin Glargine, Recombinant SC SCH (21:36)
[2017-02-09] MEDS: Piperacill/Tazo 2.25gm in Dex 2.25 GM/50 ML BAG IVPB SCH ×2 (03:00→18:24)
[2017-02-09] MEDS: (Novolog) Insulin Aspart, Recombinant 100 u/ml 10 ml vial SC SCH ×4 (07:31→22:16)
[2017-02-09] MEDS: Multivitamin Vitamin B Complex (Nephro-Vite) Tab PO SCH (07:46)
[2017-02-09] MEDS: Sodium Chloride 0.9% 1,000 ML IV SCH ×2 (08:30→22:12)
[2017-02-09 08:46] LABS: BASO % 0.3 % (0.0-2.0); EOS # 0.1 K/uL (0.0-0.7); EOS % 0.7 % (0.0-4.0); HEMATOCRIT 36.1 % (35.0-51.0); LYMPH # 0.9 K/uL (1.0-4.3); LYMPH % 7.2 % (20.0-40.0); MEAN CELL VOLUME 89.5 fL (80.0-94.0); MEAN CORPUSCULAR HEMOGLOBIN 28.2 pg (27.0-31.0); MEAN CORPUSCULAR HGB CONC 31.5 g/dL (33.0-37.0); MEAN PLATELET VOLUME 8.7 fL (7.2-11.7); MONO # 0.8 K/uL (0.0-0.8); MONO % 6.6 % (0.0-10.0); NRBC % 0.1 % (0.0-2.0); PLATELET COUNT 262 K/uL (130-400); WHITE BLOOD COUNT 12.2 K/uL (4.8-10.8)
[2017-02-09] MEDS ORDERED: EPOETIN ALFA 4,000 UNIT/ML ML Dialysis IV SCH (09:00)
[2017-02-09] MEDS: Vancomycin 1 GM in Sodium Chloride 0.9% 200 ML IVPB SCH ×2 (09:00→16:22)
[2017-02-09 09:11] LABS: BASOPHIL 1 % (0-2); EOSINOPHIL 1 % (0-4); NUCLEATED RED BLOOD CELL 1 % (0-0); TOTAL CELLS COUNTED 100
[2017-02-09 09:12] LABS: NEUTROPHIL 81 % (50-75)
[2017-02-09 09:21] LABS: BILIRUBIN,TOTAL 0.9 mg/dL (0.2-1.3); CALCIUM 7.6 mg/dl (8.6-10.4); POTASSIUM 4.3 mmol/L (3.6-5.2); TOTAL PROTEIN 7.8 g/dL (6.3-8.3)
--- NOTE | 2017-02-09 09:56 | CP.PCM.PN ---
Subjective - Date & Time of Evaluation Date of Evaluation: 02/09/17 Time of Evaluation: 09:56 - Subjective Subjective: PGY2 medicine progress note for Dr. Francis (Covering Dr. Chadwick) Patient seen and examined. Patient states he feels terrible and complains of vomiting three times overnight. Patient states that he had poor sleep due to vomiting. Patient states he cannot tolerate most PO medications at this time. Objective - Vital Signs/Intake and Output Vital Signs (last 24 hours): Temp Pulse Resp BP Pulse Ox 98.2 F 92 H 20 177/88 H 97 02/09/17 08:39 02/09/17 08:39 02/09/17 08:39 02/09/17 08:39 02/09/17 08:39 Intake and Output: 02/09/17 02/09/17 06:59 18:59 Intake Total 870 Output Total 100 Balance 770 - Medications Medications: Current Medications Acetaminophen (Tylenol 325mg Tab) 650 mg PO Q6 PRN PRN Reason: Pain, Mild (1-3) Amlodipine Besylate (Norvasc) 10 mg PO DAILY [facility] Last Admin: 02/09/17 09:31 Dose: 10 mg Aspirin (Aspirin Chewable) 81 mg PO DAILY [facility] Last Admin: 02/09/17 09:37 Dose: Not Given Cinacalcet (Sensipar) 30 mg PO DAILY [facility] Last Admin: 02/09/17 09:37 Dose: Not Given Clonidine HCl (Catapres-Tts3 0.3 Mg/24 Hr) 1 patch TD Q7D@1000 [facility] Last Admin: 02/06/17 21:53 Dose: 1 patch Gabapentin (Neurontin) 300 mg PO DAILY [facility] Last Admin: 02/09/17 09:37 Dose: Not Given Hydralazine HCl (Apresoline) 10 mg IVP Q6H PRN PRN Reason: Systolic Blood Pressure Last Admin: 02/09/17 08:23 Dose: 10 mg Hydromorphone HCl (Dilaudid) 1 mg IVP Q6H PRN PRN Reason: abdominal pain Last Admin: 02/09/17 07:40 Dose: 1 mg Sodium Chloride (Sodium Chloride 0.9%) 1,000 mls @ 50 mls/hr IV .Q20H [facility] Last Admin: 02/08/17 15:00 Dose: 50 mls/hr Vancomycin HCl 1 gm/ Sodium (Chloride) 200 mls @ 166.7 mls/hr IVPB MWF [facility] Piperacillin Sod/Tazobactam Sod (Zosyn 2.25 Gm Iv Premix) 2.25 gm in 50 mls @ 100 mls/hr IVPB Q8H [facility] Last Admin: 02/09/17 03:00 Dose: 100 mls/hr Insulin Aspart (Novolog) 0 unit SC ACHS [facility] PRN Reason: Protocol Last Admin: 02/09/17 07:31 Dose: Not Given Insulin Glargine (Lantus) 5 unit SC HS [facility] Last Admin: 02/08/17 21:36 Dose: 5 u Metoclopramide HCl (Reglan) 5 mg IVP Q8 PRN PRN Reason: NAUSEA/VOMITING -- 2ND LINE Last Admin: 02/09/17 06:48 Dose: 5 mg Ondansetron HCl (Zofran Inj) 8 mg IVP Q6H PRN PRN Reason: Nausea/Vomiting Last Admin: 02/09/17 03:37 Dose: 8 mg Pantoprazole Sodium (Protonix Inj) 40 mg IVP DAILY [facility] Last Admin: 02/09/17 09:32 Dose: 40 mg Polyethylene Glycol (Miralax) 17 gm PO BID [facility] Last Admin: 02/03/17 18:01 Dose: 17 gm Sevelamer Carbonate (Renvela) 2,400 mg PO TID [facility] Last Admin: 02/09/17 09:37 Dose: Not Given Vitamin B Complex/Vit C/Folic Acid (Nephro-Yomi) 1 tab PO 0800 [facility] Last Admin: 02/09/17 07:46 Dose: Not Given - Labs Labs: 02/09/17 08:31 02/09/17 08:31 - Constitutional Appears: No Acute Distress, Other (uncomfortable) - Head Exam Head Exam: ATRAUMATIC, NORMOCEPHALIC - Eye Exam Eye Exam: EOMI - ENT Exam ENT Exam: Mucous Membranes Dry - Respiratory Exam Respiratory Exam: Clear to Ausculation Bilateral - Cardiovascular Exam Cardiovascular Exam: +S1, +S2 - GI/Abdominal Exam GI & Abdominal Exam: Soft, Tenderness (epigastric), Normal Bowel Sounds - Extremities Exam Extremities Exam: Normal Inspection Additional comments: left upper arm AV fistula with palpable thrill - Neurological Exam Neurological Exam: Alert, Awake - Psychiatric Exam Psychiatric exam: Normal Affect - Skin Skin Exam: Warm Assessment and Plan - Assessment and Plan (Free Text) Assessment: Diabetic gastroparesis - GI consulted, Dr. Armstrong, help appreciated - Vomiting minimal to no improvement - Supportive care - Clear liquid diet, will advance as tolerated - NS @50ml/hr - Zofran 8mg IV Q6 PRN - Reglan 5mg IV Q8 PRN - Dilauded 1mg IV Q6H PRN, will try to decrease to 0.5mg Q6prn - Multiple endoscopies/GI workups this year - follow up GI recs Hypertension, uncontrolled - SBP variable - Continue Norvasc 10mg PO - Continue clonidine 0.3mg TD Q7D - patient having issue tolerating PO medications, will change PO lisinopril 10mg to IV enalapril 0.625mg if necessary -02/09: patient tolerated Norvasc today - Hydralazine 10mg IV Q6H PRN SBP >160 ESRD - Nephrology consult, Dr. Quezada help appreciated - Patient to continue dialysis MWF - sensipar 30mg PO daily - Vitamin B comlex - Procrit 4000u IV MWF Diabetes - Insulin Glargine 10 units HS - ISS - Accucheck - Gabapentin 300mg po daily Leukocytosis - Afebrile - chronic, however patient had spike to 17 WBC yesterday 02/08/17- blood cultures drawn, zosyn started at 2.25 q8h and vancomycin to be given MWF ( dialysis days) Prophylactic measures - Protonix IV 40mg daily - SCD Case discussed with Dr. Francis (covering for Dr. Chadwick)
--- NOTE | 2017-02-09 12:25 | CP.PCM.PN ---
Subjective - Date & Time of Evaluation Date of Evaluation: 02/09/17 Time of Evaluation: 12:24 - Subjective Subjective: Follow up Nephrology Consultation Note Assessment: Stable recurrent nausea/vomiting, cyclic emesis syndrome, marijuana abuse, gastroparesis Diabetic chronic Kidney Disease (E11.22) Hypertensive Chronic Kidney Disease (I12.0) End stage renal disease (N18.6) dependence on hemodialysis (Z99.2) (MWF) via AVF Anemia (D64.9), Hyperphosphatemia (E83.39), Secondary Hyperparathyroidism (E21.1 ), HTN (I12.0) uncontrolled severe HTN ? compliance to meds Plan: dialysis today as ordered. Continue with Nephrovite 1 tab/day. no MOHINI as Hb >11 Continue with phos binders BP control with meds as ordered. secondary HTN work up with plasma metanephrine , renin/ioana and Renal artery doppler has been negative. agree with IV vasotec. can give IV labetalol prn as well if needed Glycemic control, Dialysis consistent diet Further work up/management as per primary team Dose meds/antibiotics (if needed) for ESRD status. Avoid fleets enema/magnesium based laxatives. pt to abstain from marijuana Thanks for allowing me to participate in care of your patient. Will follow patient with you. Please call if any Qs Dr Brenton Larsen Office: [phone] HPI: Pt is a 36 y/o M with hx of ESRD on hemodialysis (MWF) via AVF, last dialysis yesterday, chronic anemia, hyperphosphatemia, secondary hyperparathyroidism, Diabetes Mellitus, hypertension, recurrent nausea/vomiting and multiple hospitalization for same came back with nausea/vomitting. continue to smoke marijuana feels better Denies chest pain, palpitation, shortness of breath, leg swelling. c/o nausea and vomitting. refusing to take PO meds, c/o pain abdomen Physical Examination: General Appearance: uncomfortable, in no acute respiratory distress, co- operative . Vitals reviewed and noted as below Head; Atraumatic, normocephalic ENT: no ulcers no thrush. Tongue is midline. Oropharynx: no rash or ulcers. EYES: Pupils are equal, round and reactive to light accommodation. Eye muscles and extraocular movement intact. Sclera is anicteric. Neck; supple no lymphadenopathy, no thyromegaly or bruit Lungs: Normal respiratory rate/effort. Breath sounds bilateral equal and clear Heart: Normal rate. s1s2 normal. No rub or gallop. Extremities: no edema. No varicose veins Neurological: Patient is alert, awake and oriented to person, place and time. No focal deficit. Strength bilateral appropriate and equal Skin: Warm and dry. Normal turgor. No rash. Palpitation: Normal elasticity for age Abdomen: Abdomen is soft. Bowel sounds +. There is epigastric abdominal tenderness, no guarding/rigidity or organomegaly Psych: limited insight and has normal affect/mood MSK: no joint tenderness or swelling. Digits and nails normal, no deformity. : kidney or bladder not palpable. Access: AVF Labs/imaging reviewed. Past medical history, past surgical history, family history, social history, allergy reviewed and noted as below Family Hx: no hx of CKD. Non contributory Objective - Vital Signs/Intake and Output Vital Signs (last 24 hours): Temp Pulse Resp BP Pulse Ox 98.2 F 92 H 20 143/75 97 02/09/17 08:39 02/09/17 08:39 02/09/17 08:39 02/09/17 10:26 02/09/17 08:39 Intake and Output: 02/09/17 02/09/17 06:59 18:59 Intake Total 870 Output Total 100 Balance 770 - Medications Medications: Current Medications Acetaminophen (Tylenol 325mg Tab) 650 mg PO Q6 PRN PRN Reason: Pain, Mild (1-3) Amlodipine Besylate (Norvasc) 10 mg PO DAILY [facility] Last Admin: 02/09/17 09:31 Dose: 10 mg Aspirin (Aspirin Chewable) 81 mg PO DAILY [facility] Last Admin: 02/09/17 09:37 Dose: Not Given Cinacalcet (Sensipar) 30 mg PO DAILY [facility] Last Admin: 02/09/17 09:37 Dose: Not Given Clonidine HCl (Catapres-Tts3 0.3 Mg/24 Hr) 1 patch TD Q7D@1000 [facility] Last Admin: 02/06/17 21:53 Dose: 1 patch Gabapentin (Neurontin) 300 mg PO DAILY [facility] Last Admin: 02/09/17 09:37 Dose: Not Given Heparin Sodium (Porcine) (Heparin) 5,000 units SC Q12 [facility] Hydralazine HCl (Apresoline) 10 mg IVP Q6H PRN PRN Reason: Systolic Blood Pressure Last Admin: 02/09/17 08:23 Dose: 10 mg Hydromorphone HCl (Dilaudid) 0.5 mg IVP Q6H PRN PRN Reason: abdominal pain Sodium Chloride (Sodium Chloride 0.9%) 1,000 mls @ 50 mls/hr IV .Q20H [facility] Last Admin: 02/08/17 15:00 Dose: 50 mls/hr Vancomycin HCl 1 gm/ Sodium (Chloride) 200 mls @ 166.7 mls/hr IVPB MWF [facility] Piperacillin Sod/Tazobactam Sod (Zosyn 2.25 Gm Iv Premix) 2.25 gm in 50 mls @ 100 mls/hr IVPB Q8H [facility] Last Admin: 02/09/17 03:00 Dose: 100 mls/hr Insulin Aspart (Novolog) 0 unit SC ACHS [facility] PRN Reason: Protocol Last Admin: 02/09/17 07:31 Dose: Not Given Insulin Glargine (Lantus) 5 unit SC [facility] Last Admin: 02/08/17 21:36 Dose: 5 u Lisinopril (Zestril) 10 mg PO DAILY [facility] Metoclopramide HCl (Reglan) 5 mg IVP Q8 PRN PRN Reason: NAUSEA/VOMITING -- 2ND LINE Last Admin: 02/09/17 06:48 Dose: 5 mg Ondansetron HCl (Zofran Inj) 8 mg IVP Q6H PRN PRN Reason: Nausea/Vomiting Last Admin: 02/09/17 10:07 Dose: 8 mg Pantoprazole Sodium (Protonix Inj) 40 mg IVP DAILY [facility] Last Admin: 02/09/17 09:32 Dose: 40 mg Polyethylene Glycol (Miralax) 17 gm PO BID [facility] Last Admin: 02/03/17 18:01 Dose: 17 gm Sevelamer Carbonate (Renvela) 2,400 mg PO TID [facility] Last Admin: 02/09/17 09:37 Dose: Not Given Vitamin B Complex/Vit C/Folic Acid (Nephro-Yomi) 1 tab PO 0800 [facility] Last Admin: 02/09/17 07:46 Dose: Not Given - Labs Labs: 02/09/17 08:31 02/09/17 08:31
[2017-02-09] MEDS: (Lantus) Insulin Glargine, Recombinant SC SCH (22:04)
[2017-02-10] MEDS: Piperacill/Tazo 2.25gm in Dex 2.25 GM/50 ML BAG IVPB SCH (02:10)
[2017-02-10] MEDS: Sodium Chloride 0.9% 1,000 ML IV SCH ×2 (04:00→23:55)
--- NOTE | 2017-02-10 05:57 | CON ---
DATE: 02/09/[address] Cassy Hernandez to Dr. Lucero Chadwick. REASON FOR CONSULTATION: I was called for a GI consultation by the admitting medical team. The patient is seen and fully examined on 02/09/2017. The entire chart is reviewed, including but not limited to the most recent lab and radiology study results, current and the previous medication lists, current and the previous medical events, allergy to medication list as well as all the available current and the previous medical records. Case was discussed with the staff at length. HISTORY OF PRESENT ILLNESS: This is a 36-year-old male, very well known case for me from previous admissions with multiple complicated past medical history, who was admitted with severe crampy abdominal pain, recurrent nausea, and vomiting, postprandial abdominal distention, slight palpitation, but no actual chest pain, significant shortness of breath, chills, or fever. Due to the patient's pain, his vomiting had been much worse, unable to eat or drink for the last 2 days prior to the admission. PAST MEDICAL HISTORY: Including, but not limited to; 1. Diabetes mellitus with diabetic gastroparesis. 2. Peptic ulcer disease. 3. Hypertension with congestive heart failure. 4. Known history of hyperlipidemia with peripheral edema syndrome. 5. End-stage renal disease, on hemodialysis. 6. Anemia secondary to above. 7. Patient had more than one endoscopy due to episodes of hematemesis before; however, he admitted traces of fresh blood through his vomit prior to the admission and early during the admission time. FAMILY HISTORY: Positive for hypertension with diabetes mellitus. SOCIAL HISTORY: Positive for cigarette smoking, but denied alcohol intake. CURRENT MEDICATIONS: Medication list was reviewed. ALLERGY TO MEDICATION: LIST WAS REVIEWED. HOSPITAL COURSE: After being admitted to the hospital, the patient initially was found to have leukocytosis of 13.9 with drop of hemoglobin to 10.7, hematocrit 33.4, with thrombocytosis of 409, increased blood glucose level initially to 251, increased BUN of 42, and creatinine 6.1. Patient had received hemodialysis since admission. It should be mentioned that there was subsequent tension since drop of hemoglobin and hematocrit post admission. PHYSICAL EXAMINATION: GENERAL: A 36-year-old male, awake, alert, oriented, complaining of severe abdominal pain with persistent nausea and vomiting with reported traces of fresh blood in his vomits again. VITAL SIGNS: Patient is afebrile with pulse of 98, respiratory rate 20 to 22, and blood pressure of 180/96. HEENT: Pale dry oral mucous membrane. Nonicteric sclerae. Patient had recurrent episode of nausea and vomiting of gastric and bile contents with trace of fresh blood during my physical examination. LYMPH NODES: No lymphadenitis or lymphadenopathy. LUNGS: Scattered mild crepitation with decreased air entry at bases. HEART: Positive S1 and S2 with increased rate. ABDOMEN: Soft with mild distension and diffuse tenderness. Bowel sounds are hyperactive. No mass or organomegaly. No rebound tenderness or guarding. RECTAL EXAMINATION: Patient refused. EXTREMITIES: With lower extremity edematous changes. No clubbing or cyanosis. NEUROLOGIC: No reported new neurological deficits - sensory or motor. IMPRESSION: 1. Re-exacerbation of peptic ulcer disease. 2. Recurrent hematemesis with drop of hemoglobin and hematocrit, to rule out Mera-Buitrago tear. 3. Re-exacerbation of diabetic gastroparesis. 4. To rule out an early phase of acute pancreatitis, dialysis-related. 5. Multiple past medical histories, including but not limited to hypertension, end-stage renal disease, congestive heart failure, peripheral edema syndrome, hyperlipidemia with poorly controlled diabetes mellitus. SUGGESTIONS: 1. Agree with your plan. 2. Increase Reglan to 15 mg IV push q. 6 hours. 3. Repeat upper endoscopy to rule out possible Mera-Buitrago tear. 4. Serum lipase, amylase level. 5. If there is no response, then erythromycin 500 IV piggyback q. 6 hours to be added to the regimen. 6. Further recommendation to follow. Thank you for letting me participate in your patient's case management. Cassy Hernandez MD
[2017-02-10 07:25] LABS: BASO # 0.1 K/uL (0.0-0.2); BASO % 0.6 % (0.0-2.0); EOS # 0.2 K/uL (0.0-0.7); HEMATOCRIT 37.4 % (35.0-51.0); LYMPH # 1.2 K/uL (1.0-4.3); LYMPH % 12.8 % (20.0-40.0); MEAN CELL VOLUME 88.9 fL (80.0-94.0); MEAN CORPUSCULAR HEMOGLOBIN 28.7 pg (27.0-31.0); MEAN CORPUSCULAR HGB CONC 32.3 g/dL (33.0-37.0); MEAN PLATELET VOLUME 8.4 fL (7.2-11.7); MONO # 0.8 K/uL (0.0-0.8); MONO % 8.2 % (0.0-10.0); NRBC % 0.1 % (0.0-2.0); RED CELL DISTRIBUTION WIDTH 22.9 % (11.5-14.5); WHITE BLOOD COUNT 9.6 K/uL (4.8-10.8)
[2017-02-10] MEDS ORDERED: Sodium Chloride 0.9% 1,000 ML IV ONE (08:00)
[2017-02-10] MEDS ORDERED: Propofol 10 mg/ml Inj (20 ML) ONE (08:00)
[2017-02-10] MEDS: (Novolog) Insulin Aspart, Recombinant 100 u/ml 10 ml vial SC SCH ×4 (08:13→21:50)
[2017-02-10 08:16] LABS: ALB/GLOB RATIO 1.1 (1.0-2.1); BILIRUBIN,TOTAL 1.2 mg/dL (0.2-1.3); CALCIUM 7.9 mg/dl (8.6-10.4); POTASSIUM 3.8 mmol/L (3.6-5.2); TOTAL PROTEIN 7.6 g/dL (6.3-8.3)
[2017-02-10] MEDS: Multivitamin Vitamin B Complex (Nephro-Vite) Tab PO SCH ×2 (08:53→09:24)
--- NOTE | 2017-02-10 09:40 | CP.PCM.PN ---
<Sigrid Reed - Last Filed: 02/10/17 10:34> Subjective - Date & Time of Evaluation Date of Evaluation: 02/10/17 Time of Evaluation: 09:20 - Subjective Subjective: PGY-2 Medicine Progress Note for Dr. Francis Patient seen and examined at bedside. Patient continued to vomit multiple times overnight, stating they were green in color. Patient is currently tolerating liquid diet well. Patient denies fever, headache, shortness of breath, or chest pain. Objective - Vital Signs/Intake and Output Vital Signs (last 24 hours): Temp Pulse Resp BP Pulse Ox 98.1 F 95 H 12 139/85 97 02/10/17 09:10 02/10/17 09:10 02/10/17 08:55 02/10/17 09:10 02/10/17 09:10 Intake and Output: 02/10/17 02/10/17 06:59 18:59 Intake Total 850 Output Total 75 Balance 775 - Medications Medications: Current Medications Acetaminophen (Tylenol 325mg Tab) 650 mg PO Q6 PRN PRN Reason: Pain, Mild (1-3) Amlodipine Besylate (Norvasc) 10 mg PO DAILY COUNTS INCLUDE 234 BEDS AT [facility] Last Admin: 02/10/17 09:24 Dose: 10 mg Aspirin (Aspirin Chewable) 81 mg PO DAILY COUNTS INCLUDE 234 BEDS AT [facility] Last Admin: 02/10/17 09:24 Dose: 81 mg Cinacalcet (Sensipar) 30 mg PO DAILY COUNTS INCLUDE 234 BEDS AT [facility] Last Admin: 02/10/17 09:24 Dose: 30 mg Clonidine HCl (Catapres-Tts3 0.3 Mg/24 Hr) 1 patch TD Q7D@1000 COUNTS INCLUDE 234 BEDS AT [facility] Gabapentin (Neurontin) 300 mg PO DAILY COUNTS INCLUDE 234 BEDS AT [facility] Last Admin: 02/10/17 09:24 Dose: 300 mg Heparin Sodium (Porcine) (Heparin) 5,000 units SC Q12 COUNTS INCLUDE 234 BEDS AT [facility] Last Admin: 02/10/17 09:25 Dose: Not Given Hydralazine HCl (Apresoline) 10 mg IVP Q6H PRN PRN Reason: Systolic Blood Pressure Last Admin: 02/09/17 08:23 Dose: 10 mg Hydromorphone HCl (Dilaudid) 0.5 mg IVP Q6H PRN PRN Reason: abdominal pain Last Admin: 02/10/17 04:09 Dose: 0.5 mg Sodium Chloride (Sodium Chloride 0.9%) 1,000 mls @ 50 mls/hr IV .Q20H COUNTS INCLUDE 234 BEDS AT [facility] Last Admin: 02/10/17 04:00 Dose: Not Given Vancomycin HCl 1 gm/ Sodium (Chloride) 200 mls @ 166.7 mls/hr IVPB MWF COUNTS INCLUDE 234 BEDS AT [facility] Last Admin: 02/09/17 16:22 Dose: 166.7 mls/hr Piperacillin Sod/Tazobactam Sod (Zosyn 2.25 Gm Iv Premix) 2.25 gm in 50 mls @ 100 mls/hr IVPB Q8H COUNTS INCLUDE 234 BEDS AT [facility] Last Admin: 02/10/17 02:10 Dose: 100 mls/hr Insulin Aspart (Novolog) 0 unit SC ACHS COUNTS INCLUDE 234 BEDS AT [facility] PRN Reason: Protocol Last Admin: 02/10/17 08:13 Dose: Not Given Insulin Glargine (Lantus) 5 unit SC HS COUNTS INCLUDE 234 BEDS AT [facility] Last Admin: 02/09/17 22:04 Dose: 5 u Lisinopril (Zestril) 10 mg PO DAILY COUNTS INCLUDE 234 BEDS AT [facility] Last Admin: 02/10/17 09:24 Dose: 10 mg Metoclopramide HCl (Reglan) 5 mg IVP Q8 PRN PRN Reason: NAUSEA/VOMITING -- 2ND LINE Last Admin: 02/10/17 02:05 Dose: 5 mg Metoclopramide HCl (Reglan) 10 mg IVP Q6 GADIEL Ondansetron HCl (Zofran Inj) 8 mg IVP Q6H PRN PRN Reason: Nausea/Vomiting Last Admin: 02/10/17 04:14 Dose: 8 mg Pantoprazole Sodium (Protonix Inj) 40 mg IVP DAILY COUNTS INCLUDE 234 BEDS AT [facility] Last Admin: 02/09/17 09:32 Dose: 40 mg Pantoprazole Sodium (Protonix Inj) 40 mg IVP Q12H COUNTS INCLUDE 234 BEDS AT [facility] Last Admin: 02/10/17 09:34 Dose: 40 mg Polyethylene Glycol (Miralax) 17 gm PO BID COUNTS INCLUDE 234 BEDS AT [facility] Last Admin: 02/03/17 18:01 Dose: 17 gm Sevelamer Carbonate (Renvela) 2,400 mg PO TID COUNTS INCLUDE 234 BEDS AT [facility] Last Admin: 02/10/17 09:23 Dose: 2,400 mg Vitamin B Complex/Vit C/Folic Acid (Nephro-Yomi) 1 tab PO 0800 COUNTS INCLUDE 234 BEDS AT [facility] Last Admin: 02/10/17 09:24 Dose: 1 tab - Labs Labs: 02/10/17 07:10 02/10/17 07:10 - Constitutional Appears: No Acute Distress - Head Exam Head Exam: ATRAUMATIC, NORMOCEPHALIC - Eye Exam Eye Exam: EOMI - ENT Exam ENT Exam: Mucous Membranes Dry - Respiratory Exam Respiratory Exam: Clear to Ausculation Bilateral, NORMAL BREATHING PATTERN. absent: Respiratory Distress - Cardiovascular Exam Cardiovascular Exam: +S1, +S2 - GI/Abdominal Exam GI & Abdominal Exam: Soft, Tenderness - Extremities Exam Additional comments: left upper arm AV fistula with adequate thrill - Neurological Exam Neurological Exam: Alert, Awake, Oriented x3 - Psychiatric Exam Psychiatric exam: Normal Affect - Skin Skin Exam: Dry, Warm Assessment and Plan - Assessment and Plan (Free Text) Assessment: Diabetic gastroparesis - GI consulted, Dr. Armstrong, help appreciated - Vomiting improved - Supportive care - Full liquid diet - NS @50ml/hr - Zofran 8mg IV Q6 PRN - Reglan 10mg IV Q6 PRN - Dilauded 0.5mg Q6prn - S/P endoscopy today showed Grade C esophagitis w/o bleeding, hiatal hernia - GI recommends abdominal ultrasound tomorrow Hypertension, uncontrolled - SBP variable - Continue Norvasc 10mg PO - Continue clonidine 0.3mg TD Q7D - patient having issue tolerating PO medications, will change PO lisinopril 10mg to IV enalapril 0.625mg if necessary -02/10: patient tolerated PO meds today - Hydralazine 10mg IV Q6H PRN SBP >160 ESRD - Nephrology consult, Dr. Quezada help appreciated - Patient to continue dialysis MWF - sensipar 30mg PO daily - Vitamin B comlex - Procrit 4000u IV MWF Diabetes - Insulin Glargine 5 units HS - ISS - Accucheck - Gabapentin 300mg po daily Leukocytosis - Afebrile - chronic, WBC 9.6 today, discontinued antibiotics Prophylactic measures - Protonix IV 40mg daily - SCD Case discussed with Dr. Francis (covering for Dr. Chadwick) <Vasquez Francis - Last Filed: 02/10/17 13:25> Objective - Vital Signs/Intake and Output Vital Signs (last 24 hours): Temp Pulse Resp BP Pulse Ox 98.1 F 95 H 12 139/85 97 02/10/17 09:10 02/10/17 09:10 12/28/17 08:55 02/10/17 09:10 02/10/17 09:10 Intake and Output: 02/10/17 02/10/17 06:59 18:59 Intake Total 850 Output Total 75 Balance 775 - Medications Medications: Current Medications Acetaminophen (Tylenol 325mg Tab) 650 mg PO Q6 PRN PRN Reason: Pain, Mild (1-3) Amlodipine Besylate (Norvasc) 10 mg PO DAILY COUNTS INCLUDE 234 BEDS AT [facility] Last Admin: 02/10/17 09:24 Dose: 10 mg Aspirin (Aspirin Chewable) 81 mg PO DAILY COUNTS INCLUDE 234 BEDS AT [facility] Last Admin: 02/10/17 09:24 Dose: 81 mg Cinacalcet (Sensipar) 30 mg PO DAILY COUNTS INCLUDE 234 BEDS AT [facility] Last Admin: 02/10/17 09:24 Dose: 30 mg Clonidine HCl (Catapres-Tts3 0.3 Mg/24 Hr) 1 patch TD Q7D@1000 GADIEL Gabapentin (Neurontin) 300 mg PO DAILY COUNTS INCLUDE 234 BEDS AT [facility] Last Admin: 02/10/17 09:24 Dose: 300 mg Heparin Sodium (Porcine) (Heparin) 5,000 units SC Q12 COUNTS INCLUDE 234 BEDS AT [facility] Last Admin: 02/10/17 09:25 Dose: Not Given Hydralazine HCl (Apresoline) 10 mg IVP Q6H PRN PRN Reason: Systolic Blood Pressure Last Admin: 02/09/17 08:23 Dose: 10 mg Hydromorphone HCl (Dilaudid) 0.5 mg IVP Q6H PRN PRN Reason: abdominal pain Last Admin: 02/10/17 10:38 Dose: 0.5 mg Sodium Chloride (Sodium Chloride 0.9%) 1,000 mls @ 50 mls/hr IV .Q20H COUNTS INCLUDE 234 BEDS AT [facility] Last Admin: 02/10/17 04:00 Dose: Not Given Insulin Aspart (Novolog) 0 unit SC ACHS COUNTS INCLUDE 234 BEDS AT [facility] PRN Reason: Protocol Last Admin: 02/10/17 11:28 Dose: 2 unit Insulin Glargine (Lantus) 5 unit SC HS COUNTS INCLUDE 234 BEDS AT [facility] Last Admin: 02/09/17 22:04 Dose: 5 u Lisinopril (Zestril) 10 mg PO DAILY COUNTS INCLUDE 234 BEDS AT [facility] Last Admin: 02/10/17 09:24 Dose: 10 mg Metoclopramide HCl (Reglan) 5 mg IVP Q8 PRN PRN Reason: NAUSEA/VOMITING -- 2ND LINE Last Admin: 02/10/17 02:05 Dose: 5 mg Metoclopramide HCl (Reglan) 10 mg IVP Q6 COUNTS INCLUDE 234 BEDS AT [facility] Last Admin: 02/10/17 12:32 Dose: 10 mg Ondansetron HCl (Zofran Inj) 8 mg IVP Q6H PRN PRN Reason: Nausea/Vomiting Last Admin: 02/10/17 04:14 Dose: 8 mg Pantoprazole Sodium (Protonix Inj) 40 mg IVP DAILY COUNTS INCLUDE 234 BEDS AT [facility] Last Admin: 02/09/17 09:32 Dose: 40 mg Pantoprazole Sodium (Protonix Inj) 40 mg IVP Q12H COUNTS INCLUDE 234 BEDS AT [facility] Last Admin: 02/10/17 09:34 Dose: 40 mg Polyethylene Glycol (Miralax) 17 gm PO BID COUNTS INCLUDE 234 BEDS AT [facility] Last Admin: 02/03/17 18:01 Dose: 17 gm Sevelamer Carbonate (Renvela) 2,400 mg PO TID COUNTS INCLUDE 234 BEDS AT [facility] Last Admin: 02/10/17 09:23 Dose: 2,400 mg Vitamin B Complex/Vit C/Folic Acid (Nephro-Yomi) 1 tab PO 0800 COUNTS INCLUDE 234 BEDS AT [facility] Last Admin: 02/10/17 09:24 Dose: 1 tab - Labs Labs: 02/10/17 07:10 02/10/17 07:10 Attending/Attestation - Attestation I have personally seen and examined this patient.: Yes I have fully participated in the care of the patient.: Yes I have reviewed all pertinent clinical information, including history, physical exam and plan: Yes Notes (Text): 02/10/17 13:22 Medical attending: Patient was seen and examined by me. I saw the patient together with the medical lab technician The patient was ambulating slowly in the hallway. He reported he was able to tolerate oatmeal and water this morning. He reports he still has abdominal pain. Per our discussion we talked about diabetic gastroparesis. He is often in and out of the hospital. Last week he was discharged and then decided he would come back immediately due to nasuea and vommitting. We explained to the patient that he needs to avoid overnuse of narcotic class pain medication as it will slow his GI motility down even more thank you Vasquez Francis
[2017-02-10] MEDS: (Lantus) Insulin Glargine, Recombinant SC SCH (22:02)
[2017-02-11] MEDS: (Novolog) Insulin Aspart, Recombinant 100 u/ml 10 ml vial SC SCH ×2 (07:58→11:57)
[2017-02-11] MEDS: Multivitamin Vitamin B Complex (Nephro-Vite) Tab PO SCH (07:58)
[2017-02-11 08:03] LABS: BASO # 0.1 K/uL (0.0-0.2); BASO % 0.6 % (0.0-2.0); EOS # 0.4 K/uL (0.0-0.7); EOS % 4.2 % (0.0-4.0); LYMPH # 1.6 K/uL (1.0-4.3); LYMPH % 15.9 % (20.0-40.0); MEAN CELL VOLUME 89.5 fL (80.0-94.0); MEAN CORPUSCULAR HEMOGLOBIN 29.3 pg (27.0-31.0); MEAN CORPUSCULAR HGB CONC 32.7 g/dL (33.0-37.0); MEAN PLATELET VOLUME 8.9 fL (7.2-11.7); MONO % 9.9 % (0.0-10.0); RED CELL DISTRIBUTION WIDTH 21.9 % (11.5-14.5); WHITE BLOOD COUNT 10.2 K/uL (4.8-10.8)
[2017-02-11 08:19] LABS: BILIRUBIN,TOTAL 0.6 mg/dL (0.2-1.3); CALCIUM 6.9 mg/dl (8.6-10.4); POTASSIUM 3.6 mmol/L (3.6-5.2); TOTAL PROTEIN 6.6 g/dL (6.3-8.3)
--- NOTE | 2017-02-11 08:54 | CP.PCM.DIS ---
<Sigrid Reed - Last Filed: 02/11/17 13:04> Provider - Provider Date of Admission: 02/05/17 17:50 Attending physician: MD Dr. Vasquez Guillermo Primary care physician: Dr. Chadwick Consults: GI Dr. Nathaniel Quezada Time Spent in preparation of Discharge (in minutes): 40 Diagnosis - Discharge Diagnosis (1) Gastroparesis due to secondary diabetes Status: Resolved (2) ESRD (end stage renal disease) Status: Chronic (3) Cannabis abuse Status: Chronic (4) HTN (hypertension) Status: Chronic (5) Diabetes Status: Chronic (6) Intractable abdominal pain Status: Resolved (7) Leukocytosis Status: Chronic Hospital Course - Lab Results Lab Results: Micro Results 02/08/17 17:00 Blood-Venous Blood Culture - Preliminary NO GROWTH AFTER 48 HOURS 02/08/17 17:10 Blood-Venous Blood Culture - Preliminary NO GROWTH AFTER 48 HOURS Most Recent Lab Values WBC 10.2 K/uL (4.8-10.8) 02/11/17 07:25 RBC 3.57 Mil/uL (4.40-5.90) L 02/11/17 07:25 Hgb 10.5 g/dL (12.0-18.0) L 02/11/17 07:25 Hct 32.0 % (35.0-51.0) L 02/11/17 07:25 MCV 89.5 fL (80.0-94.0) 02/11/17 07:25 MCH 29.3 pg (27.0-31.0) 02/11/17 07:25 MCHC 32.7 g/dL (33.0-37.0) L 02/11/17 07:25 RDW 21.9 % (11.5-14.5) H 02/11/17 07:25 Plt Count 229 K/uL (130-400) 02/11/17 07:25 MPV 8.9 fL (7.2-11.7) 02/11/17 07:25 Neut % (Auto) 69.4 % (50.0-75.0) 02/11/17 07:25 Lymph % (Auto) 15.9 % (20.0-40.0) L 02/11/17 07:25 [place] % (Auto) 9.9 % (0.0-10.0) 02/11/17 07:25 Eos % (Auto) 4.2 % (0.0-4.0) H 02/11/17 07:25 Baso % (Auto) 0.6 % (0.0-2.0) 02/11/17 07:25 Neut # 7.1 K/uL (1.8-7.0) H 02/11/17 07:25 Lymph # 1.6 K/uL (1.0-4.3) 02/11/17 07:25 [place] # 1.0 K/uL (0.0-0.8) H 02/11/17 07:25 Eos # 0.4 K/uL (0.0-0.7) 02/11/17 07:25 Baso # 0.1 K/uL (0.0-0.2) 02/11/17 07:25 Neutrophils % (Manual) 81 % (50-75) H 02/09/17 08:31 Lymphocytes % (Manual) 8 % (20-40) L 02/09/17 08:31 Monocytes % (Manual) 9 % (0-10) 02/09/17 08:31 Eosinophils % (Manual) 1 % (0-4) 02/09/17 08:31 Basophils % (Manual) 1 % (0-2) 02/09/17 08:31 Nucleated RBC % 1 % (0-0) H 02/09/17 08:31 Platelet Estimate Normal (NORMAL) 02/09/17 08:31 Poikilocytosis (manual Slight 02/09/17 08:31 Anisocytosis (manual) Slight 02/09/17 08:31 Puncture Site Venous 02/03/17 08:34 pO2 140 mm/Hg (30-55) H 02/03/17 08:34 Isaac Test N/a 02/03/17 08:34 VBG pH 7.50 (7.32-7.43) H 02/03/17 08:34 VBG pCO2 36 mmHg (40-60) L 02/03/17 08:34 VBG HCO3 28.8 mmol/L 02/03/17 08:34 VBG O2 Sat (Calc) 98.9 % (40-65) H 02/03/17 08:34 VBG Base Excess 4.9 mmol/L (0.0-2.0) H 02/03/17 08:34 Sodium 129 mmol/L (132-148) L 02/11/17 07:25 Potassium 3.6 mmol/L (3.6-5.2) 02/11/17 07:25 Chloride 92 mmol/L (98-107) L 02/11/17 07:25 Carbon Dioxide 23 mmol/L (22-30) 02/11/17 07:25 Anion Gap 18 (10-20) 02/11/17 07:25 BUN 34 mg/dL (9-20) H 02/11/17 07:25 Creatinine 9.3 mg/dL (0.8-1.5) H* D 02/11/17 07:25 Est GFR ( Amer) 8 02/11/17 07:25 Est GFR (Non-Af Amer) 6 02/11/17 07:25 POC Glucose (mg/dL) 234 mg/dL (65-110) H 02/11/17 06:25 Random Glucose 249 mg/dL (75-110) H 02/11/17 07:25 Calcium 6.9 mg/dl (8.6-10.4) L 02/11/17 07:25 Magnesium 1.8 mg/dL (1.6-2.3) 02/03/17 08:38 Total Bilirubin 0.6 mg/dL (0.2-1.3) 02/11/17 07:25 AST 17 U/L (17-59) 02/11/17 07:25 ALT 19 U/L (21-72) L 02/11/17 07:25 Alkaline Phosphatase 107 U/L (38-126) 02/11/17 07:25 Troponin I 0.0230 ng/mL (0.00-0.120) 02/03/17 08:38 Total Protein 6.6 g/dL (6.3-8.3) 02/11/17 07:25 Albumin 3.3 g/dL (3.5-5.0) L 02/11/17 07:25 Globulin 3.2 gm/dL (2.2-3.9) 02/11/17 07:25 Albumin/Globulin Ratio 1.0 (1.0-2.1) 02/11/17 07:25 Lipase 117 U/L (23-300) 02/03/17 08:38 Serum Ketones Negative (NEGATIVE) 02/03/17 08:38 - Hospital Course Hospital Course: 36 year old male with past medical history of HTN, DM, ESRD on dialysis , gastroparesis, and marijuana use presents to the ED with intractable vomiting of 2 days. Patient states he vomited so many times since yesterday that he cannot remember. Patient states his vomitus were non bloody and clear. Patient has been admitted to the hospital multiple times for the similar complaint. Patient had multiple GI workup this year. Patient has poor intake since the symptoms started. Patient reports his last marijuana use was at least 2 weeks ago. In the ED, patient was found to have leukocytosis and elevated BUN/Cr while the CXR and EKG were unremarkable. Patient was given Zofran, Reglan, Morphine, and Protonix before admitting to the floor. Patient has been admitted to the hospital multiple times for the same complaint with the most recent one on 01/29/17. Patient also had multiple GI workups in the past including 10 endoscopies within 2017. Soon after patient was place on the medical floor, a rapid response was call due to patient's uncontrolled hypertension. His BP was controlled after labetalol 10 mg IV, half and inch Nitropaste, and additional Morphine IV and Zofran IV were given. Patient was then transferred to the telemetry floor. During the beginning of his hospital course, patient was made NPO and slowly advanced diet as tolerated. Patient's vomiting and abdominal pain improved gradually throughout the hospital course. Patient continued to have dialysis on MWF. GI was consulted and an endoscopy was performed which yielded similar findings as previous endoscopies. On 02/11/17 patient started to tolerate oral intake well. Nausea and vomiting also resolved. Patient will received dialysis before hospital discharge today. Marijuana, opioid, and smoking cessation were strongly advised. Patient understood and agreed with follow ups and treatment plans. Above is a brief summary of the patient's hospital course throughout this admission. Please see medical record for full report. - Date & Time of H&P Date of H&P: 02/03/17 Time of H&P: 15:37 Discharge Exam - Head Exam Head Exam: ATRAUMATIC, NORMOCEPHALIC - Eye Exam Eye Exam: Normal appearance - ENT Exam ENT Exam: Mucous Membranes Moist - Respiratory Exam Respiratory Exam: Clear to PA & Lateral, UNREMARKABLE. absent: Respiratory Distress - Cardiovascular Exam Cardiovascular Exam: REGULAR RHYTHM, +S1, +S2 - GI/Abdominal Exam GI & Abdominal Exam: Normal Bowel Sounds, Soft, Tenderness (mild tenderness) - Extremities Exam Extremities exam: normal inspection - Neurological Exam Neurological exam: Alert, Oriented x3 - Psychiatric Exam Psychiatric exam: Normal Affect, Normal Mood - Skin Skin Exam: Normal Color, Warm Discharge Plan - Discharge Medications Prescriptions: amLODIPine [Norvasc] 10 mg PO DAILY #30 tab Aspirin [Aspirin Chewable] 81 mg PO DAILY #60 chew Cinacalcet [Sensipar] 30 mg PO DAILY #30 tab Famotidine [Pepcid] 20 mg PO BID #60 tab Gabapentin [Neurontin] 300 mg PO DAILY #60 cap Lisinopril [Zestril] 10 mg PO DAILY #60 tablet Metoclopramide [Reglan] 10 mg PO Q8 #42 tab Metoprolol Tartrate [Lopressor] 50 mg PO Q12 #60 tab Sevelamer [Renagel] 2,400 mg PO TID #90 tab - Follow Up Plan Condition: FAIR Disposition: DISCHARGED TO HOME CARE Patient education suggested?: Yes Instructions: Metoprolol (By mouth), Lisinopril (By mouth), Famotidine (By mouth), Metoclopramide (By mouth), Aspirin (By mouth), Gabapentin (By mouth), Amlodipine (By mouth), Sevelamer (By mouth), Cinacalcet (By mouth), Heart Failure (DC), Diabetic Gastroparesis (DC), Dialysis Diet (DC), Acute Nausea and Vomiting (DC), End Stage Kidney Disease (DC) Additional Instructions: Patient is to follow up with PMD and specialists upon hospital discharge for medication adjustments Marijuana use cessation is strongly advised Patient was educated on glucose control and medication compliance Patient will continue to have dialysis as scheduled Go to the nearest ED if symptoms return or worsen Referrals: Lucero Chadwick MD [Staff Provider] - Cassy Armstrong [Staff Provider] - Osiel Quezada MD [Staff Provider] - <Vasquez Francis - Last Filed: 02/11/17 13:25> Provider - Provider Date of Admission: 02/05/17 17:50 Attending physician: Lucero Chadwick MD Hospital Course - Lab Results Lab Results: Micro Results 02/08/17 17:00 Blood-Venous Blood Culture - Preliminary NO GROWTH AFTER 48 HOURS 02/08/17 17:10 Blood-Venous Blood Culture - Preliminary NO GROWTH AFTER 48 HOURS Most Recent Lab Values WBC 10.2 K/uL (4.8-10.8) 02/11/17 07:25 RBC 3.57 Mil/uL (4.40-5.90) L 02/11/17 07:25 Hgb 10.5 g/dL (12.0-18.0) L 02/11/17 07:25 Hct 32.0 % (35.0-51.0) L 02/11/17 07:25 MCV 89.5 fL (80.0-94.0) 02/11/17 07:25 MCH 29.3 pg (27.0-31.0) 02/11/17 07:25 MCHC 32.7 g/dL (33.0-37.0) L 02/11/17 07:25 RDW 21.9 % (11.5-14.5) H 02/11/17 07:25 Plt Count 229 K/uL (130-400) 02/11/17 07:25 MPV 8.9 fL (7.2-11.7) 02/11/17 07:25 Neut % (Auto) 69.4 % (50.0-75.0) 02/11/17 07:25 Lymph % (Auto) 15.9 % (20.0-40.0) L 02/11/17 07:25 [place] % (Auto) 9.9 % (0.0-10.0) 02/11/17 07:25 Eos % (Auto) 4.2 % (0.0-4.0) H 02/11/17 07:25 Baso % (Auto) 0.6 % (0.0-2.0) 02/11/17 07:25 Neut # 7.1 K/uL (1.8-7.0) H 02/11/17 07:25 Lymph # 1.6 K/uL (1.0-4.3) 02/11/17 07:25 [place] # 1.0 K/uL (0.0-0.8) H 02/11/17 07:25 Eos # 0.4 K/uL (0.0-0.7) 02/11/17 07:25 Baso # 0.1 K/uL (0.0-0.2) 02/11/17 07:25 Neutrophils % (Manual) 81 % (50-75) H 02/09/17 08:31 Lymphocytes % (Manual) 8 % (20-40) L 02/09/17 08:31 Monocytes % (Manual) 9 % (0-10) 02/09/17 08:31 Eosinophils % (Manual) 1 % (0-4) 02/09/17 08:31 Basophils % (Manual) 1 % (0-2) 02/09/17 08:31 Nucleated RBC % 1 % (0-0) H 02/09/17 08:31 Platelet Estimate Normal (NORMAL) 02/09/17 08:31 Poikilocytosis (manual Slight 02/09/17 08:31 Anisocytosis (manual) Slight 02/09/17 08:31 Puncture Site Venous 02/03/17 08:34 pO2 140 mm/Hg (30-55) H 02/03/17 08:34 Isaac Test N/a 02/03/17 08:34 VBG pH 7.50 (7.32-7.43) H 02/03/17 08:34 VBG pCO2 36 mmHg (40-60) L 02/03/17 08:34 VBG HCO3 28.8 mmol/L 02/03/17 08:34 VBG O2 Sat (Calc) 98.9 % (40-65) H 02/03/17 08:34 VBG Base Excess 4.9 mmol/L (0.0-2.0) H 02/03/17 08:34 Sodium 129 mmol/L (132-148) L 02/11/17 07:25 Potassium 3.6 mmol/L (3.6-5.2) 02/11/17 07:25 Chloride 92 mmol/L (98-107) L 02/11/17 07:25 Carbon Dioxide 23 mmol/L (22-30) 02/11/17 07:25 Anion Gap 18 (10-20) 02/11/17 07:25 BUN 34 mg/dL (9-20) H 02/11/17 07:25 Creatinine 9.3 mg/dL (0.8-1.5) H* D 02/11/17 07:25 Est GFR ( Amer) 8 02/11/17 07:25 Est GFR (Non-Af Amer) 6 02/11/17 07:25 POC Glucose (mg/dL) 122 mg/dL (65-110) H 02/11/17 11:31 Random Glucose 249 mg/dL (75-110) H 02/11/17 07:25 Calcium 6.9 mg/dl (8.6-10.4) L 02/11/17 07:25 Magnesium 1.8 mg/dL (1.6-2.3) 02/03/17 08:38 Total Bilirubin 0.6 mg/dL (0.2-1.3) 02/11/17 07:25 AST 17 U/L (17-59) 02/11/17 07:25 ALT 19 U/L (21-72) L 02/11/17 07:25 Alkaline Phosphatase 107 U/L (38-126) 02/11/17 07:25 Troponin I 0.0230 ng/mL (0.00-0.120) 02/03/17 08:38 Total Protein 6.6 g/dL (6.3-8.3) 02/11/17 07:25 Albumin 3.3 g/dL (3.5-5.0) L 02/11/17 07:25 Globulin 3.2 gm/dL (2.2-3.9) 02/11/17 07:25 Albumin/Globulin Ratio 1.0 (1.0-2.1) 02/11/17 07:25 Lipase 117 U/L (23-300) 02/03/17 08:38 Serum Ketones Negative (NEGATIVE) 02/03/17 08:38 Attending/Attestation - Attestation I have personally seen and examined this patient.: Yes I have fully participated in the care of the patient.: Yes I have reviewed all pertinent clinical information, including history, physical exam and plan: Yes Notes (Text): 02/11/17 13:25 Medical attending: I was not able to see the patient today, he actually was discharged last night. I reviewed the above discharge note by the biomedical engineering technologist and I agree with the above note. The patient was ambulating in the hallway on his own he was able to walk to the nurses station and get food and drink from there and bring it back. He stated that he did well overnight. He also was not vomiting and did not have nausea. He was able to hold food down including his clear liquid diet. He's scheduled to have hemodialysis today, after which we'll try to discharge the patient. Unfortunately there is a history of the patient after discharge returning to the hospital within 48-72 hours. We encouraged the patient to try to follow-up with his primary care physician if he can. The patient stated that he's can try. Thank you very much, Vasquez Francis
--- NOTE | 2017-02-11 09:43 | CP.PCM.PN ---
Subjective - Date & Time of Evaluation Date of Evaluation: 02/11/17 Time of Evaluation: 09:40 - Subjective Subjective: Follow up Nephrology Consultation Note Assessment: Stable recurrent nausea/vomiting, cyclic emesis syndrome, marijuana abuse, gastroparesis, esophagitis on EGD 02/10/17 Hypocalcemia Diabetic chronic Kidney Disease (E11.22) Hypertoensive Chronic Kidney Disease (I12.0) End stage renal disease (N18.6) dependence on hemodialysis (Z99.2) (MWF) via AVF Anemia (D64.9), Hyperphosphatemia (E83.39), Secondary Hyperparathyroidism (E21.1 ), HTN (I12.0) uncontrolled severe HTN ? compliance to meds Plan: dialysis today as ordered. Continue with Nephrovite 1 tab/day. no MOHINI as Hb usually >11 Continue with phos binders BP control with meds as ordered. secondary HTN work up with plasma metanephrine , renin/ioana and Renal artery doppler has been negative. Glycemic control, Dialysis consistent diet Further work up/management as per primary team Dose meds/antibiotics (if needed) for ESRD status. Avoid fleets enema/magnesium based laxatives. pt to abstain from marijuana d/c IVF. hold sensipar due to low Ca. will dose with calcium gluconate 2 gm IVPB once pt planned for d/c home today. stable from renal perspective. Thanks for allowing me to participate in care of your patient. Please call if any Qs Dr Brenton Larsen Office: [phone] HPI: Pt is a 36 y/o M with hx of ESRD on hemodialysis (MWF) via AVF, last dialysis yesterday, chronic anemia, hyperphosphatemia, secondary hyperparathyroidism, Diabetes Mellitus, hypertension, recurrent nausea/vomiting and multiple hospitalization for same came back with nausea/vomitting. continue to smoke marijuana feels better Denies chest pain, palpitation, shortness of breath, leg swelling. no further nausea and vomitting. improved pain abdomen but says it is chronic Physical Examination: General Appearance: comfortable, in no acute respiratory distress, co-operative . cheerful today Vitals reviewed and noted as below Head; Atraumatic, normocephalic ENT: no ulcers no thrush. Tongue is midline. Oropharynx: no rash or ulcers. EYES: Pupils are equal, round and reactive to light accommodation. Eye muscles and extraocular movement intact. Sclera is anicteric. Neck; supple no lymphadenopathy, no thyromegaly or bruit Lungs: Normal respiratory rate/effort. Breath sounds bilateral equal and clear Heart: Normal rate. s1s2 normal. No rub or gallop. Extremities: no edema. No varicose veins Neurological: Patient is alert, awake and oriented to person, place and time. No focal deficit. Strength bilateral appropriate and equal Skin: Warm and dry. Normal turgor. No rash. Palpitation: Normal elasticity for age Abdomen: Abdomen is soft. Bowel sounds +. There is no epigastric abdominal tenderness, no guarding/rigidity or organomegaly Psych: limited insight and has normal affect/mood MSK: no joint tenderness or swelling. Digits and nails normal, no deformity. : kidney or bladder not palpable. Access: AVF Labs/imaging reviewed. Past medical history, past surgical history, family history, social history, allergy reviewed and noted as below Family Hx: no hx of CKD. Non contributory Objective - Vital Signs/Intake and Output Vital Signs (last 24 hours): Temp Pulse Resp BP Pulse Ox 98.3 F 71 20 124/76 96 02/11/17 07:00 02/11/17 08:14 02/11/17 07:00 02/11/17 07:00 02/11/17 07:00 Intake and Output: 02/11/17 02/11/17 06:59 18:59 Intake Total 600 Balance 600 - Medications Medications: Current Medications Acetaminophen (Tylenol 325mg Tab) 650 mg PO Q6 PRN PRN Reason: Pain, Mild (1-3) Amlodipine Besylate (Norvasc) 10 mg PO DAILY [facility] Last Admin: 02/10/17 09:24 Dose: 10 mg Aspirin (Aspirin Chewable) 81 mg PO DAILY [facility] Last Admin: 02/10/17 09:24 Dose: 81 mg Clonidine HCl (Catapres-Tts3 0.3 Mg/24 Hr) 1 patch TD Q7D@1000 [facility] Gabapentin (Neurontin) 300 mg PO DAILY [facility] Last Admin: 02/10/17 09:24 Dose: 300 mg Heparin Sodium (Porcine) (Heparin) 5,000 units SC Q12 [facility] Last Admin: 02/10/17 22:02 Dose: Not Given Hydralazine HCl (Apresoline) 10 mg IVP Q6H PRN PRN Reason: Systolic Blood Pressure Last Admin: 02/09/17 08:23 Dose: 10 mg Hydromorphone HCl (Dilaudid) 0.5 mg IVP Q6H PRN PRN Reason: abdominal pain Last Admin: 02/11/17 07:59 Dose: 0.5 mg Calcium Gluconate 2,000 mg/ (Sodium Chloride) 270 mls @ 0 mls/hr IVPB ONCE ONE PRN Reason: Per Protocol Stop: 02/11/17 09:40 Insulin Aspart (Novolog) 0 unit SC ACHS [facility] PRN Reason: Protocol Last Admin: 02/11/17 07:58 Dose: 3 unit Insulin Glargine (Lantus) 5 unit SC HS [facility] Last Admin: 02/10/17 22:02 Dose: 5 units Lisinopril (Zestril) 10 mg PO DAILY [facility] Last Admin: 02/10/17 09:24 Dose: 10 mg Metoclopramide HCl (Reglan) 5 mg IVP Q8 PRN PRN Reason: NAUSEA/VOMITING -- 2ND LINE Last Admin: 02/10/17 02:05 Dose: 5 mg Metoclopramide HCl (Reglan) 10 mg IVP Q6 [facility] Last Admin: 02/11/17 07:46 Dose: Not Given Ondansetron HCl (Zofran Inj) 8 mg IVP Q6H PRN PRN Reason: Nausea/Vomiting Last Admin: 02/10/17 23:53 Dose: 8 mg Pantoprazole Sodium (Protonix Inj) 40 mg IVP Q12H [facility] Last Admin: 02/11/17 07:58 Dose: 40 mg Polyethylene Glycol (Miralax) 17 gm PO BID [facility] Last Admin: 02/03/17 18:01 Dose: 17 gm Sevelamer Carbonate (Renvela) 2,400 mg PO TID [facility] Last Admin: 02/10/17 17:05 Dose: 2,400 mg Vitamin B Complex/Vit C/Folic Acid (Nephro-Yomi) 1 tab PO 0800 [facility] Last Admin: 02/11/17 07:58 Dose: 1 tab - Labs Labs: 02/11/17 07:25 02/11/17 07:25
--- NOTE | 2017-02-11 14:11 | PN ---
DATE: LOCATION: [facility], bed A. SUBJECTIVE: This is a 36-year-old male post upper endoscopy due to recurrent nausea and vomiting with severe abdominal pain, seen again today with much less abdominal pain or reported active bleeding. The patient early today tolerated oral intake without hematemesis or hemoptysis. The entire chart is reviewed including but not limited to the most recent lab and radiology study results, current and the previous medical events, current and the previous medical record. The patient had been in dialysis without any significant clinical changes. Most recent lab results showed low hemoglobin of 10.5, hematocrit 30.0 with normal platelet count with still low sodium of 129, increased BUN of 34, creatinine 9.3, blood glucose level 122 with low calcium 6.9 and low albumin 3.3. PHYSICAL EXAMINATION: GENERAL: A 36-year-old male. Awake, alert, oriented with less abdominal pain, much less nausea and vomiting. VITAL SIGNS: Afebrile with pulse of 76, respiratory rate 20 to 22 with blood pressure 128/74. HEENT: Showed pale dry oral mucous membrane. Nonicteric sclerae. LUNGS: Few scattered crepitation. Decreased air entry at bases. HEART: Positive S1 and S2. ABDOMEN: Soft. Bowel sounds are present. No mass or organomegaly. No rebound tenderness or guarding. EXTREMITIES: Without significant clubbing, cyanosis or edema. NEUROLOGIC: No reported neurological deficits, sensory or motor. IMPRESSION: 1. Re-exacerbation of peptic ulcer disease. 2. Recurrent diabetic gastroparesis. 3. Electrolyte imbalance with hypocalcemia and poorly-controlled diabetes mellitus. 4. Chronic renal failure, on hemodialysis. 5. Poorly-controlled hypertension. 6. Anemia secondary to above. 7. Electrolyte imbalance with hyponatremia, hypocalcemia secondary to above. SUGGESTION: 1. Continue current management. 2. Reglan p.o. as outpatient. 3. The patient may need surgical evaluation for potential pancreatic transplant. Cassy Hernandez MD
[2017-02-11 15:59] VITALS: PULSE 101; RESP 16; TEMP 98; O2SAT 101
[2017-02-11 17:31] VITALS: BP 129/87
== END 2017-02-11 19:15 | disposition home health service (06) | DRG 73 ==
LOC: C.ER 07:36 → C.9E 09:25 → UNDOADMOB 09:25 → C.9E 11:01 → C.3T 12:16 → C.6T 14:49 → C.3T 14:49 → OBSVTOIN 17:50 → INTOOBSV 17:50 → C.6T 02-04 05:51 → OBSVTOIN 02-05 17:50 → C.3T 02-05 17:50 → C.9E 02-05 17:50 → C.6T 02-05 17:50
PROVIDERS: ADMIT Internal Medicine Pulmonary Disease; ATTEND Internal Medicine Pulmonary Disease
PROC: 5A1D70Z Performance of Urinary Filtration, Intermittent, Less than 6 Hours Per Day (ICD-10-PCS; 2017-02-07)
PROC: 0DB68ZX Excision of Stomach, Via Natural or Artificial Opening Endoscopic, Diagnostic (ICD-10-PCS; principal; 2017-02-10 08:09)
DX: E10.43 Type 1 diabetes mellitus with diabetic autonomic (poly)neuropathy (principal); N18.6 End stage renal disease; I13.2 Hypertensive heart and chronic kidney disease with heart failure and with stage 5 chronic kidney disease, or end stage renal disease; E10.22 Type 1 diabetes mellitus with diabetic chronic kidney disease; I95.3 Hypotension of hemodialysis; E10.65 Type 1 diabetes mellitus with hyperglycemia; E83.51 Hypocalcemia; I50.9 Heart failure, unspecified; N25.81 Secondary hyperparathyroidism of renal origin; E87.1 Hypo-osmolality and hyponatremia; K31.84 Gastroparesis; Z79.4 Long term (current) use of insulin; K27.9 Peptic ulcer, site unspecified, unspecified as acute or chronic, without hemorrhage or perforation; E78.00 Pure hypercholesterolemia, unspecified; F17.200 Nicotine dependence, unspecified, uncomplicated; Z99.2 Dependence on renal dialysis; D63.1 Anemia in chronic kidney disease; D72.829 Elevated white blood cell count, unspecified; F12.10 Cannabis abuse, uncomplicated; K21.0 Gastro-esophageal reflux disease with esophagitis; K44.9 Diaphragmatic hernia without obstruction or gangrene

== ENCOUNTER 2017-03-03 00:57 | Inpatient (IN) | payer MEDICARE, MEDICAID ==
[2017-03-03 00:58] VITALS: BMI 19.5
[2017-03-03] MEDS ORDERED: Pantoprazole 40 mg EC Tab PO STA (01:17)
--- NOTE | 2017-03-03 01:21 | C.PDOC ---
History Of Present Illness 36 year old male presents to the ED c/o abdominal pain, nausea, vomit and constipation for the past 2 days. Patient reports he went to hemodialysis today and after he started feeling nauseous and started vomiting, patient states he noticed some blood in his vomit. Patient actively vomiting during triage and in the ED with blood observed. Patient denies fever, chills, back pain, dysuria, hematuria, weakness, numbness. Chief Complaint (Nursing): Abdominal Pain History Per: Patient History/Exam Limitations: no limitations Onset/Duration Of Symptoms: Hrs Current Symptoms Are (Timing): Still Present Context: Other (hemodialysis) Severity: Mild Location Of Pain/Discomfort: Diffuse Radiation Of Pain To:: None Quality Of Discomfort: "Pain" Associated Symptoms: Nausea, Vomiting, Constipation Exacerbating Factors: None Alleviating Factors: None Recent travel outside of the [place]: No Additional History Per: Patient Past Medical History Reviewed: Historical Data, Nursing Documentation, Vital Signs Vital Signs: Last Vital Signs Temp 97.6 F 03/03/17 03:35 Pulse 100 H 03/03/17 03:35 Resp 18 03/03/17 03:35 BP 218/108 H 03/03/17 03:35 Pulse Ox 100 03/03/17 03:35 - Medical History PMH: Anemia, CHF, Diabetes (type I; ), Gastritis (gastroparesis), HTN, Hypercholesterolemia, Peripheral Edema, End Stage Renal Disease, Chronic Kidney Disease Denies: HIV, Kidney Stones Surgical History: No Surg Hx - [facility] Procedures (02/18/17) (11/12/16) BYPASS LEFT BRACHIAL ARTERY TO UPPER ARM VEIN, OPEN APPROACH (02/17/16) DILATION OF LEFT BASILIC VEIN, PERCUTANEOUS APPROACH (11/06/16) EXCISION OF ASCENDING COLON, ENDO, DIAGN (12/19/15) EXCISION OF DESCENDING COLON, ENDO, DIAGN (10/22/16) EXCISION OF DUODENUM, ENDO, DIAGN (03/25/16) EXCISION OF LARGE INTESTINE, ENDO, DIAGN (05/06/16) EXCISION OF MIDDLE ESOPHAGUS, ENDO, DIAGN (03/25/16) EXCISION OF STOMACH, ENDO, DIAGN (02/05/17) EXCISION OF TRANSVERSE COLON, ENDO, DIAGN (05/06/16) INSERTION OF INFUSION DEV INTO SUP VENA CAVA, PERC APPROACH (12/19/15) PERFORMANCE OF URINARY FILTRATION, MULTIPLE (10/28/16) PERFORMANCE OF URINARY FILTRATION, SINGLE (11/06/16) REPOSITION LEFT BASILIC VEIN, OPEN APPROACH (05/25/16) ULTRASONOGRAPHY OF SUPERIOR VENA CAVA, GUIDANCE (12/19/15) Family History: States: Unknown Family Hx, Diabetes, Hypertension - Social History Hx Tobacco Use: Yes (some days) Hx Alcohol Use: No Hx Substance Use: No - Immunization History Hx Tetanus Toxoid Vaccination: Yes Hx Influenza Vaccination: Yes Hx Pneumococcal Vaccination: Yes Review Of Systems Constitutional: Negative for: Fever, Chills Cardiovascular: Negative for: Chest Pain, Palpitations Respiratory: Negative for: Cough, Shortness of Breath Gastrointestinal: Positive for: Nausea, Vomiting, Abdominal Pain, Constipation. Negative for: Diarrhea Genitourinary: Negative for: Dysuria, Hematuria Musculoskeletal: Negative for: Back Pain Skin: Negative for: Rash Neurological: Negative for: Weakness, Numbness Physical Exam - Physical Exam Appears: Non-toxic, In Acute Distress (secondary to pain) Skin: Normal Color, Warm, Dry Head: Atraumatic, Normacephalic Eye(s): bilateral: Normal Inspection Nose: No Discharge, No Deformity Oral Mucosa: Moist Neck: Normal ROM, Supple Chest: Symmetrical Cardiovascular: Rhythm Regular, No Murmur Respiratory: Normal Breath Sounds, No Rales, No Rhonchi, No Wheezing Gastrointestinal/Abdominal: Soft, Tenderness (Epigastric), No Guarding, No Rebound, Other (Blood noticed in vomit in the ED) Extremity: Normal ROM, No Pedal Edema, No Calf Tenderness, No Deformity, No Swelling Neurological/Psych: Oriented x3, Normal Speech, Normal Cognition Gait: Steady ED Course And Treatment - Laboratory Results Result Diagrams: 03/03/17 01:48 03/03/17 01:48 O2 Sat by Pulse Oximetry: 99 (On RA) Pulse Ox Interpretation: Normal - Radiology CXR: Interpreted by Me CXR Interpretation: Yes: No Acute Disease, Other (normal chest film). No: Cardiomegaly Medical Decision Making Medical Decision Making: impression : nausea, vomit, constipation, abdominal pain Plan: * Labs * Morphine 2 mg IVP * Protonix 40 mg PO * Zofran 4 mg IVP NG tube inserted and some blood aspirated out. Disposition Discussed With : Lucero Chadwick Doctor Will See Patient In The: Hospital Counseled Patient/Family Regarding: Diagnosis - Disposition Disposition: HOSPITALIZED Disposition Time: 02:46 Condition: STABLE - Clinical Impression Clinical Impression: ESRD (end stage renal disease) on dialysis, Abdominal pain, Upper GI bleeding - Scribe Statement The provider has reviewed the documentation as recorded by the Scribe Agapito Rodrigez All medical record entries made by the Raquelibe were at my direction and personally dictated by me. I have reviewed the chart and agree that the record accurately reflects my personal performance of the history, physical exam, medical decision making, and the department course for this patient. I have also personally directed, reviewed, and agree with the discharge instructions and disposition.
[2017-03-03] MEDS ORDERED: Morphine 4 MG/ML VIAL IV ONE (01:38)
[2017-03-03 01:53] LABS: BASO # 0.1 K/uL (0.0-0.2); BASO % 0.7 % (0.0-2.0); EOS # 0.1 K/uL (0.0-0.7); EOS % 0.7 % (0.0-4.0); HEMOGLOBIN 12.7 g/dL (12.0-18.0); LYMPH # 1.6 K/uL (1.0-4.3); LYMPH % 15.8 % (20.0-40.0); MEAN CELL VOLUME 91.1 fL (80.0-94.0); MEAN CORPUSCULAR HEMOGLOBIN 29.8 pg (27.0-31.0); MEAN CORPUSCULAR HGB CONC 32.7 g/dL (33.0-37.0); MEAN PLATELET VOLUME 8.8 fL (7.2-11.7); MONO # 0.7 K/uL (0.0-0.8); MONO % 7.1 % (0.0-10.0); NEUT # 7.5 K/uL (1.8-7.0); NEUT % 75.7 % (50.0-75.0); NRBC % 2.4 % (0.0-2.0); RBC 4.28 Mil/uL (4.40-5.90); RED CELL DISTRIBUTION WIDTH 19.9 % (11.5-14.5); WHITE BLOOD COUNT 9.9 K/uL (4.8-10.8)
[2017-03-03 02:01] LABS: PROTHROMBIN TIME 10.9 SECONDS (9.7-12.2)
[2017-03-03 02:18] LABS: ALB/GLOB RATIO 1.1 (1.0-2.1); ALBUMIN 4.6 g/dL (3.5-5.0); CALCIUM 9.4 mg/dl (8.6-10.4)
[2017-03-03] MEDS ORDERED: Dextrose 5%/0.45% NS 1,000 ML IV ONE (03:42)
[2017-03-03] MEDS: Dextrose 5%/0.45% NS 1,000 ML IV SCH (03:45)
--- NOTE | 2017-03-03 09:08 | RAD ---
Chest x-ray single frontal view History: NG tube placement. Comparison: 02/03/2017 Findings: NG tube extending into the stomach. Lung calvin are clear. Chronic right lower rib deformity. Heart size within normal limits. Impression: NG tube extending into the stomach.
--- NOTE | 2017-03-03 09:50 | CP.PCM.PN ---
Subjective - Date & Time of Evaluation Date of Evaluation: 03/03/17 Time of Evaluation: 09:45 - Subjective Subjective: PGY2 progress note for Dr. Chadwick 36 year old male with past medical history of IDDM, CKD stage IV on HD MWF, HTN , grade C esophagitis, gastroparesis presents for lower quadrant abdominal pain and vomiting x 3 days. Patient states that yesterday he vomited about 8 times mostly bilious and some blood tinged. Patient states his lower quadrant abd pain began about 3 days ago as well. Denies having any radiation of pain. Complains of constipation x few days. Denies having any F/C, CP, abd pain. Patient's last EGD was on 01/2017 which showed esophagitis and gastritis. Patient was seen by GI on last admission about 2 weeks ago for the same symptoms. At that time, it was recommended that pt eat small frequent meals for gastroparesis. Patient also has history of chronic marijuana use. Objective - Vital Signs/Intake and Output Vital Signs (last 24 hours): Temp Pulse Resp BP Pulse Ox 97.7 F 96 H 18 200/102 H 100 03/03/17 05:53 03/03/17 05:54 03/03/17 05:53 03/03/17 05:54 03/03/17 04:46 Intake and Output: 03/03/17 03/03/17 06:59 18:59 Intake Total 40 Output Total 200 Balance -160 - Medications Medications: Current Medications Amlodipine Besylate (Norvasc) 10 mg PO DAILY [facility] Aspirin (Aspirin Chewable) 81 mg PO DAILY [facility] Clonidine HCl (Catapres) 0.3 mg PO TID [facility] Dextrose/Sodium Chloride (Dextrose 5%/0.45% Ns 1000 Ml) 1,000 mls @ 40 mls/hr IV .Q24H [facility] Last Admin: 03/03/17 03:45 Dose: 40 mls/hr Insulin Aspart (Novolog) 20 unit SC BID [facility] Lisinopril (Zestril) 10 mg PO DAILY [facility] Morphine Sulfate (Morphine) 2 mg IVP Q4 PRN PRN Reason: Pain, moderate (4-7) Ondansetron HCl (Zofran Inj) 4 mg IVP Q6 PRN PRN Reason: Nausea/Vomiting Last Admin: 03/03/17 06:27 Dose: 4 mg Pantoprazole Sodium (Protonix Ec Tab) 40 mg PO DAILY [facility] Sevelamer Carbonate (Renvela) 2,400 mg PO TID [facility] Sucralfate (Carafate Tab) 1 gm PO Q12 [facility] - Labs Labs: 03/03/17 01:48 03/03/17 01:48 PT 10.9 SECONDS (9.7-12.2) 03/03/17 01:48 INR 1.0 03/03/17 01:48 APTT 24 SECONDS (21-34) 03/03/17 01:48 - Constitutional Appears: Non-toxic, No Acute Distress - Head Exam Head Exam: ATRAUMATIC - ENT Exam ENT Exam: Mucous Membranes Moist - Respiratory Exam Respiratory Exam: Clear to Ausculation Bilateral. absent: Accessory Muscle Use , Rales, Rhonchi, Wheezes - Cardiovascular Exam Cardiovascular Exam: REGULAR RHYTHM, +S1, +S2. absent: Gallop, Rubs, Murmur - GI/Abdominal Exam GI & Abdominal Exam: Soft, Tenderness (Lower quadrants), Normal Bowel Sounds. absent: Distended, Firm, Guarding, Rigid, Organomegaly - Neurological Exam Neurological Exam: Alert, Awake, Oriented x3 - Psychiatric Exam Psychiatric exam: Normal Affect, Normal Mood - Skin Skin Exam: Dry, Intact, Normal Color, Warm Assessment and Plan - Assessment and Plan (Free Text) Assessment: 36 year old male with past medical history of IDDM, HTN, CKD on HD MWF, gastroparesis is admitted for intractable nausea, vomiting and abd pain. On admission, LFTs WNL, Alk phos 159, lipase normal Intractable N/V - Continue Zofran 4 mg IVP q6 - Currently NPO - Will place on low dose insulin sliding scale - Currently on D5NS at 40 cc IDDM -Hgb A1c check in 01/2017 was 7.7 - Will place pt on ISS while NPO - Continue Aspirin and Zestril - Will consider starting statin HTN urgency - Pt presented with blood pressure of 200/102 - Pt received Norvasc and Hydralazine. - repeat BP this morning is 160s/80s. - Patient will receive home dose of Zestril this morning with caution to not drop BP >25% within 24 hrs - will continue to monitor BP CKD on HD MWF - Will consult nephrology for dialysis - Will get consent for dialysis from pt today Prophylaxis Continue home dose of Omeprazole, carafate continue SCDs. will avoid rx. anticoag due to recent GI bleed Case will be discussed with Dr. Chadwick. All managements and orders per Dr. Chadwick
[2017-03-03] MEDS ORDERED: (Novolog) Insulin Aspart, Recombinant 100 u/ml 10 ml vial SC SCH (10:00)
[2017-03-03] MEDS: Pantoprazole 40 mg EC Tab PO SCH (10:13)
[2017-03-03] MEDS ORDERED: (Novolin R) Insulin Human Regular 100 units/ml vial SC SCH (11:30)
[2017-03-03] MEDS: (Novolin R) Insulin Human Regular 100 units/ml vial SC SCH ×3 (12:35→22:26)
--- NOTE | 2017-03-03 15:51 | CP.PCM.CON ---
History of Present Illness - History of Present Illness History of Present Illness: Initial Nephrology Consultation Note Assessment: Stable recurrent nausea/vomitting, cyclic emesis syndrome, marijuana abuse, gastroparesis Diabetic chronic Kidney Disease (E11.22) Hypertensive Chronic Kidney Disease (I12.0) End stage renal disease (N18.6) dependence on hemodialysis (Z99.2) (MWF) via AVF Anemia (D64.9), Hyperphosphatemia (E83.39), Secondary Hyperparathyroidism (E21.1 ), HTN (I12.0) Plan: dialysis tomorrow as ordered. Continue with Nephrovite 1 tab/day. Hb 12.7 hence no MOHINI at this time Continue with phos binders BP control with meds as ordered. on lisinopril Glycemic control, Dialysis consistent diet Further work up/management as per primary team Dose meds/antibiotics (if needed) for ESRD status. Avoid fleets enema/magnesium based laxatives. pt to abstain from marijuana Thanks for allowing me to participate in care of your patient. Will follow patient with you. Please call if any Qs Dr Brenton Larsen Office: [phone] Chief Complaint; nausea/vomiting Reason for consult; ESRD, HTN HPI: Pt is a 36 y/o M with hx of ESRD on hemodialysis (MWF) via AVF, chronic anemia, hyperphosphatemia, secondary hyperparathyroidism, Diabetes Mellitus, hypertension, recurrent nausea/vomiting and multiple hospitalization for same, came back with nausea/vomitting. continue to smoke marijuana Denies chest pain, palpitation, shortness of breath, leg swelling c/o pain upper abdomen and nausea x 1 day ROS: Constitutional Symptoms: Denies fever. No chills. No Recent Weight Changes Cardiovascular: No chest pain. There is shortness of breath. No palpitations. Pulmonary: No cough. Gastrointestinal: c/o abdominal pain now c/o nausea. c/o vomiting. Denies change in bowel habits. Denies Bleeding All other negative. Physical Examination: General Appearance: uncomfortable, in no acute respiratory distress, co- operative . Vitals reviewed and noted as below Head; Atraumatic, normocephalic ENT: no ulcers no thrush. Tongue is midline. Oropharynx: no rash or ulcers. EYES: Pupils are equal, round and reactive to light accommodation. Eye muscles and extraocular movement intact. Sclera is anicteric. Neck; supple no lymphadenopathy, no thyromegaly or bruit Lungs: Normal respiratory rate/effort. Breath sounds bilateral equal and clear Heart: Normal rate. s1s2 normal. No rub or gallop. Extremities: no edema. No varicose veins Neurological: Patient is alert, awake and oriented to person, place and time. No focal deficit. Strength bilateral appropriate and equal Skin: Warm and dry. Normal turgor. No rash. Palpitation: Normal elasticity for age Abdomen: Abdomen is soft. Bowel sounds +. There is mild epigastric abdominal tenderness, no guarding/rigidity or organomegaly Psych: limited insight and normal affect/mood MSK: no joint tenderness or swelling. Digits and nails normal, no deformity. : kidney or bladder not palpable. Access: AVF Labs/imaging reviewed. Past medical history, past surgical history, family history, social history, allergy reviewed and noted as below Family Hx: no hx of CKD. Non contributory sec HTN work up neg as renin/ioana, metanephrine and renal artery doppler Past Patient History - Infectious Disease Hx of Infectious Diseases: None - Past Medical History & Family History Past Medical History?: Yes - Past Social History Smoking Status: Current Some Days Smoker - CARDIAC Hx Congestive Heart Failure: Yes Hx Hypercholesterolemia: Yes Hx Hypertension: Yes Hx Peripheral Edema: Yes - PULMONARY Hx Respiratory Disorders: No - NEUROLOGICAL Hx Neurological Disorder: No - HEENT Hx HEENT Problems: Yes Hx Cataracts: Yes (rt cat sx) - RENAL Hx Chronic Kidney Disease: Yes Date of Last Dialysis Treatment: 03/02/17 Hx Kidney Stones: No - ENDOCRINE/METABOLIC Hx Endocrine Disorders: Yes Hx Diabetes Mellitus Type 1: Yes - HEMATOLOGICAL/ONCOLOGICAL Hx Anemia: Yes Hx Human Immunodeficiency Virus (HIV): No - INTEGUMENTARY Hx Dermatological Problems: No - MUSCULOSKELETAL/RHEUMATOLOGICAL Hx Falls: Yes - GASTROINTESTINAL Hx Gastritis: Yes (gastroparesis) - GENITOURINARY/GYNECOLOGICAL Hx Genitourinary Disorders: No - PSYCHIATRIC Hx Substance Use: Yes (Marijuana) - SURGICAL HISTORY Hx Surgeries: Yes Hx Cataract Extraction: Yes (bilateral) Hx Vascular Access Device: Yes Other/Comment: Hx RT.PERMACATH INSERTION 12/30. 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 Hx UNDESCENDED TESTES LT. REMOVED DURING CHILDHOOD - ANESTHESIA Hx Anesthesia: Yes Hx Anesthesia Reactions: No Hx Malignant Hyperthermia: No Meds Allergies/Adverse Reactions: Allergies Allergy/AdvReac Type Severity Reaction Status Date / Time No Known Allergies Allergy Verified 03/03/17 01:10 - Medications Medications: Current Medications Amlodipine Besylate (Norvasc) 10 mg PO DAILY [facility] Aspirin (Aspirin Chewable) 81 mg PO DAILY [facility] Last Admin: 03/03/17 10:13 Dose: Not Given Hydralazine HCl (Apresoline) 10 mg IVP Q6H PRN PRN Reason: Systolic Blood Pressure Dextrose/Sodium Chloride (Dextrose 5%/0.45% Ns 1000 Ml) 1,000 mls @ 40 mls/hr IV .Q24H [facility] Last Admin: 03/03/17 03:45 Dose: 40 mls/hr Insulin Human Regular (Novolin R) 0 unit SC ACHS [facility] PRN Reason: Protocol Last Admin: 03/03/17 12:35 Dose: 4 unit Lisinopril (Zestril) 10 mg PO DAILY [facility] Last Admin: 03/03/17 10:12 Dose: Not Given Morphine Sulfate (Morphine) 2 mg IVP Q4 PRN PRN Reason: Pain, moderate (4-7) Last Admin: 03/03/17 11:41 Dose: 2 mg Ondansetron HCl (Zofran Inj) 4 mg IVP Q6 PRN PRN Reason: Nausea/Vomiting Last Admin: 03/03/17 06:27 Dose: 4 mg Pantoprazole Sodium (Protonix Ec Tab) 40 mg PO DAILY [facility] Last Admin: 03/03/17 10:13 Dose: Not Given Rosuvastatin Calcium (Crestor) 2.5 mg PO HS [facility] Sevelamer Carbonate (Renvela) 2,400 mg PO TID [facility] Last Admin: 03/03/17 10:12 Dose: Not Given Sucralfate (Carafate Tab) 1 gm PO Q12 [facility] Last Admin: 03/03/17 10:13 Dose: Not Given Results - Vital Signs Recent Vital Signs: Last Vital Signs Temp 98.1 F 03/03/17 09:50 Pulse 98 H 03/03/17 09:50 Resp 18 03/03/17 09:50 BP 174/80 H 03/03/17 12:40 Pulse Ox 99 03/03/17 09:50 - Labs Result Diagrams: 03/03/17 01:48 03/03/17 01:48 Labs: Laboratory Results - last 24 hr 03/03/17 03/03/17 03/03/17 01:48 01:48 01:48 WBC 9.9 RBC 4.28 L Hgb 12.7 D Hct 39.0 MCV 91.1 MCH 29.8 MCHC 32.7 L RDW 19.9 H Plt Count 235 MPV 8.8 Neut % (Auto) 75.7 H Lymph % (Auto) 15.8 L [place] % (Auto) 7.1 Eos % (Auto) 0.7 Baso % (Auto) 0.7 Neut # 7.5 H Lymph # 1.6 [place] # 0.7 Eos # 0.1 Baso # 0.1 PT 10.9 INR 1.0 APTT 24 Sodium 135 Potassium 4.5 Chloride 90 L Carbon Dioxide 21 L Anion Gap 28 H BUN 16 Creatinine 4.8 H Est GFR ( Amer) 17 Est GFR (Non-Af Amer) 14 POC Glucose (mg/dL) Random Glucose 194 H Calcium 9.4 Total Bilirubin 1.0 AST 50 ALT 32 Alkaline Phosphatase 159 H D Total Protein 8.8 H Albumin 4.6 Globulin 4.2 H Albumin/Globulin Ratio 1.1 Lipase 67 Blood Type Antibody Screen 03/03/17 03/03/17 03/03/17 01:48 06:31 12:06 WBC RBC Hgb Hct MCV MCH MCHC RDW Plt Count MPV Neut % (Auto) Lymph % (Auto) [place] % (Auto) Eos % (Auto) Baso % (Auto) Neut # Lymph # [place] # Eos # Baso # PT INR APTT Sodium Potassium Chloride Carbon Dioxide Anion Gap BUN Creatinine Est GFR ( Amer) Est GFR (Non-Af Amer) POC Glucose (mg/dL) 259 H 263 H Random Glucose Calcium Total Bilirubin AST ALT Alkaline Phosphatase Total Protein Albumin Globulin Albumin/Globulin Ratio Lipase Blood Type O POSITIVE Antibody Screen Negative
[2017-03-03] MEDS: Rosuvastatin Calcium 2.5 mg Tab PO SCH (21:57)
[2017-03-04] MEDS: Dextrose 5%/0.45% NS 1,000 ML IV SCH ×2 (03:00→05:51)
[2017-03-04] MEDS: (Novolin R) Insulin Human Regular 100 units/ml vial SC SCH ×4 (07:47→22:37)
[2017-03-04] MEDS: Multivitamin Vitamin B Complex (Nephro-Vite) Tab PO SCH (09:16)
[2017-03-04 09:55] LABS: BASO # 0.1 K/uL (0.0-0.2); BASO % 0.6 % (0.0-2.0); EOS # 0.3 K/uL (0.0-0.7); EOS % 3.3 % (0.0-4.0); HEMOGLOBIN 11.3 g/dL (12.0-18.0); LYMPH % 24.6 % (20.0-40.0); MEAN CELL VOLUME 90.9 fL (80.0-94.0); MEAN CORPUSCULAR HEMOGLOBIN 29.5 pg (27.0-31.0); MEAN CORPUSCULAR HGB CONC 32.4 g/dL (33.0-37.0); MEAN PLATELET VOLUME 8.3 fL (7.2-11.7); MONO # 0.9 K/uL (0.0-0.8); MONO % 10.7 % (0.0-10.0); NEUT # 5.1 K/uL (1.8-7.0); NEUT % 60.8 % (50.0-75.0); NRBC % 1.6 % (0.0-2.0); RBC 3.85 Mil/uL (4.40-5.90); RED CELL DISTRIBUTION WIDTH 22.3 % (11.5-14.5); WHITE BLOOD COUNT 8.3 K/uL (4.8-10.8)
[2017-03-04] MEDS: Pantoprazole 40 mg EC Tab PO SCH (10:30)
--- NOTE | 2017-03-04 11:10 | CARD ---
APPROVED REPORT EKG Measurement Heart [id number] <Conclusion> Sinus tachycardia Biatrial enlargement T wave abnormality, consider inferior ischemia Abnormal ECG
[2017-03-04 11:37] LABS: ALB/GLOB RATIO 1.1 (1.0-2.1); ALBUMIN 3.5 g/dL (3.5-5.0); CALCIUM 7.7 mg/dl (8.6-10.4)
--- NOTE | 2017-03-04 11:37 | CP.PCM.PN ---
Subjective - Date & Time of Evaluation Date of Evaluation: 03/04/17 Time of Evaluation: 11:34 - Subjective Subjective: PGY2 progress note for Dr. Chadwick Pt seen and examined at bedside. No acute events overnight. Pt underwent dialysis this morning. Currently pt states nausea and vomiting have improved and abdominal pain has decreased. Denies having any F/C, CP, SOB, GARRIDO. 12 point ROS negative except for above mentioned. Objective - Vital Signs/Intake and Output Vital Signs (last 24 hours): Temp Pulse Resp BP Pulse Ox 97.5 F L 78 16 145/73 98 03/04/17 09:30 03/04/17 09:30 03/04/17 09:30 03/04/17 10:15 03/04/17 09:30 Intake and Output: 03/04/17 03/04/17 06:59 18:59 Intake Total 320 Balance 320 - Medications Medications: Current Medications Amlodipine Besylate (Norvasc) 10 mg PO DAILY [facility] Last Admin: 03/04/17 10:30 Dose: Not Given Aspirin (Aspirin Chewable) 81 mg PO DAILY [facility] Last Admin: 03/04/17 10:25 Dose: Not Given Hydralazine HCl (Apresoline) 10 mg IVP Q6H PRN PRN Reason: Systolic Blood Pressure Last Admin: 03/03/17 22:04 Dose: 10 mg Dextrose/Sodium Chloride (Dextrose 5%/0.45% Ns 1000 Ml) 1,000 mls @ 40 mls/hr IV .Q24H [facility] Last Admin: 03/04/17 05:51 Dose: 40 mls/hr Insulin Human Regular (Novolin R) 0 unit SC ACHS [facility] PRN Reason: Protocol Last Admin: 03/04/17 07:47 Dose: Not Given Lisinopril (Zestril) 10 mg PO DAILY [facility] Last Admin: 03/04/17 10:30 Dose: Not Given Morphine Sulfate (Morphine) 2 mg IVP Q4 PRN PRN Reason: Pain, moderate (4-7) Last Admin: 03/04/17 07:22 Dose: 2 mg Ondansetron HCl (Zofran Inj) 4 mg IVP Q6 PRN PRN Reason: Nausea/Vomiting Last Admin: 03/03/17 06:27 Dose: 4 mg Pantoprazole Sodium (Protonix Ec Tab) 40 mg PO DAILY [facility] Last Admin: 03/04/17 10:30 Dose: Not Given Rosuvastatin Calcium (Crestor) 2.5 mg PO HS [facility] Last Admin: 03/03/17 21:57 Dose: 2.5 mg Sevelamer Carbonate (Renvela) 2,400 mg PO TID [facility] Last Admin: 03/04/17 10:30 Dose: Not Given Sucralfate (Carafate Tab) 1 gm PO Q12 [facility] Last Admin: 03/04/17 10:26 Dose: Not Given Vitamin B Complex/Vit C/Folic Acid (Nephro-Yomi) 1 tab PO 0800 [facility] Last Admin: 03/04/17 09:16 Dose: Not Given - Labs Labs: 03/04/17 09:51 03/03/17 01:48 PT 10.9 SECONDS (9.7-12.2) 03/03/17 01:48 INR 1.0 03/03/17 01:48 APTT 24 SECONDS (21-34) 03/03/17 01:48 - Constitutional Appears: Non-toxic, No Acute Distress - Head Exam Head Exam: ATRAUMATIC - ENT Exam ENT Exam: Mucous Membranes Moist - Respiratory Exam Respiratory Exam: Clear to Ausculation Bilateral. absent: Rales, Rhonchi, Wheezes - Cardiovascular Exam Cardiovascular Exam: REGULAR RHYTHM, +S1, +S2. absent: Gallop, Rubs, Murmur - GI/Abdominal Exam GI & Abdominal Exam: Soft, Normal Bowel Sounds. absent: Distended, Firm, Guarding, Rigid, Tenderness, Organomegaly - Extremities Exam Extremities Exam: absent: Pedal Edema, Tenderness - Neurological Exam Neurological Exam: Alert, Awake, Oriented x3 - Psychiatric Exam Psychiatric exam: Normal Affect, Normal Mood - Skin Skin Exam: Dry, Intact, Normal Color, Warm Assessment and Plan - Assessment and Plan (Free Text) Assessment: 36 year old male with past medical history of IDDM, HTN, CKD on HD MWF, gastroparesis is admitted for intractable nausea, vomiting and abd pain. On admission, LFTs WNL, Alk phos 159, lipase normal Intractable N/V - Continue Zofran 4 mg IVP q6 IDDM - Will start pt on renal soft diet and advance as tolerated - Hgb A1c check in 01/2017 was 7.7 - Home insulin regimen - Continue Aspirin and Zestril - Will consider starting statin HTN urgency - Patient refuses to take PO medications. - Hydralazine 10 mg IVP prn - Continue PO medications CKD on HD MWF - Dialysis today - Nephrology, Dr. Larsen is consulted Prophylaxis Continue home dose of Omeprazole, carafate continue SCDs. will avoid rx. anticoag due to recent GI bleed Case will be discussed with Dr. Chadwick. All managements and orders per Dr. Chadwick
--- NOTE | 2017-03-04 16:28 | CP.PCM.PN ---
Subjective - Date & Time of Evaluation Date of Evaluation: 03/04/17 Time of Evaluation: 16:27 - Subjective Subjective: Follow up Nephrology Consultation Note Assessment: Stable recurrent nausea/vomitting, cyclic emesis syndrome, marijuana abuse, gastroparesis Diabetic chronic Kidney Disease (E11.22) Hypertensive Chronic Kidney Disease (I12.0) End stage renal disease (N18.6) dependence on hemodialysis (Z99.2) (MWF) via AVF Anemia (D64.9), Hyperphosphatemia (E83.39), Secondary Hyperparathyroidism (E21.1 ), HTN (I12.0) Plan: dialysis today as ordered. Continue with Nephrovite 1 tab/day. Hb 11-12 hence no MOHINI at this time Continue with phos binders BP control with meds as ordered. on lisinopril Glycemic control, Dialysis consistent diet Further work up/management as per primary team Dose meds/antibiotics (if needed) for ESRD status. Avoid fleets enema/magnesium based laxatives. pt to abstain from marijuana Thanks for allowing me to participate in care of your patient. Will follow patient with you. Please call if any Qs Dr Brenton Larsen Office: [phone] Reason for consult; ESRD, HTN HPI: Pt is a 36 y/o M with hx of ESRD on hemodialysis (MWF) via AVF, chronic anemia, hyperphosphatemia, secondary hyperparathyroidism, Diabetes Mellitus, hypertension, recurrent nausea/vomiting and multiple hospitalization for same, came back with nausea/vomitting. continue to smoke marijuana Denies chest pain, palpitation, shortness of breath, leg swelling c/o pain upper abdomen and nausea x 1 day ROS: Constitutional Symptoms: Denies fever. No chills. No Recent Weight Changes Cardiovascular: No chest pain. There is no shortness of breath. No palpitations. Pulmonary: No cough. Gastrointestinal: c/o abdominal pain improved nausea/vomiting. All other negative. Physical Examination: seen on HD General Appearance: uncomfortable, in no acute respiratory distress, co- operative . Vitals reviewed and noted as below Head; Atraumatic, normocephalic ENT: no ulcers no thrush. Tongue is midline. Oropharynx: no rash or ulcers. EYES: Pupils are equal, round and reactive to light accommodation. Eye muscles and extraocular movement intact. Sclera is anicteric. Neck; supple no lymphadenopathy, no thyromegaly or bruit Lungs: Normal respiratory rate/effort. Breath sounds bilateral equal and clear Heart: Normal rate. s1s2 normal. No rub or gallop. Extremities: no edema. No varicose veins Neurological: Patient is alert, awake and oriented to person, place and time. No focal deficit. Strength bilateral appropriate and equal Skin: Warm and dry. Normal turgor. No rash. Palpitation: Normal elasticity for age Abdomen: Abdomen is soft. Bowel sounds +. There is mild epigastric abdominal tenderness, no guarding/rigidity or organomegaly Psych: limited insight and normal affect/mood MSK: no joint tenderness or swelling. Digits and nails normal, no deformity. : kidney or bladder not palpable. Access: AVF Labs/imaging reviewed. Past medical history, past surgical history, family history, social history, allergy reviewed and noted as below Family Hx: no hx of CKD. Non contributory sec HTN work up neg as renin/ioana, metanephrine and renal artery doppler Objective - Vital Signs/Intake and Output Vital Signs (last 24 hours): Temp Pulse Resp BP Pulse Ox 97 F L 75 16 116/70 98 03/04/17 13:00 03/04/17 13:00 03/04/17 13:00 03/04/17 13:00 03/04/17 13:00 Intake and Output: 03/04/17 03/04/17 06:59 18:59 Intake Total 320 450 Balance 320 450 - Medications Medications: Current Medications Amlodipine Besylate (Norvasc) 10 mg PO DAILY [facility] Last Admin: 03/04/17 10:30 Dose: Not Given Aspirin (Aspirin Chewable) 81 mg PO DAILY [facility] Last Admin: 03/04/17 10:25 Dose: Not Given Hydralazine HCl (Apresoline) 10 mg IVP Q6H PRN PRN Reason: Systolic Blood Pressure Last Admin: 03/03/17 22:04 Dose: 10 mg Insulin Aspart (Novolog) 20 unit SC BID [facility] Insulin Human Regular (Novolin R) 0 unit SC ACHS [facility] PRN Reason: Protocol Last Admin: 03/04/17 13:01 Dose: Not Given Lisinopril (Zestril) 10 mg PO DAILY [facility] Last Admin: 03/04/17 10:30 Dose: Not Given Morphine Sulfate (Morphine) 1 mg IVP Q4 PRN PRN Reason: Pain, moderate (4-7) Ondansetron HCl (Zofran Inj) 4 mg IVP Q6 PRN PRN Reason: Nausea/Vomiting Last Admin: 03/03/17 06:27 Dose: 4 mg Pantoprazole Sodium (Protonix Ec Tab) 40 mg PO DAILY [facility] Last Admin: 03/04/17 10:30 Dose: Not Given Rosuvastatin Calcium (Crestor) 2.5 mg PO HS [facility] Last Admin: 03/03/17 21:57 Dose: 2.5 mg Sevelamer Carbonate (Renvela) 2,400 mg PO TID [facility] Last Admin: 03/04/17 13:11 Dose: Not Given Sucralfate (Carafate Tab) 1 gm PO Q12 [facility] Last Admin: 03/04/17 10:26 Dose: Not Given Vitamin B Complex/Vit C/Folic Acid (Nephro-[place]) 1 tab PO 0800 [facility] Last Admin: 03/04/17 09:16 Dose: Not Given - Labs Labs: 03/04/17 09:51 03/04/17 09:51 PT 10.9 SECONDS (9.7-12.2) 03/03/17 01:48 INR 1.0 03/03/17 01:48 APTT 24 SECONDS (21-34) 03/03/17 01:48
[2017-03-04] MEDS: (Novolog) Insulin Aspart, Recombinant 100 u/ml 10 ml vial SC SCH (18:31)
[2017-03-04] MEDS: Rosuvastatin Calcium 2.5 mg Tab PO SCH (22:01)
[2017-03-05] MEDS: (Novolin R) Insulin Human Regular 100 units/ml vial SC SCH ×4 (07:30→21:40)
[2017-03-05] MEDS: Pantoprazole 40 mg EC Tab PO SCH (11:00)
[2017-03-05] MEDS: Multivitamin Vitamin B Complex (Nephro-Vite) Tab PO SCH (11:00)
[2017-03-05] MEDS: (Novolog) Insulin Aspart, Recombinant 100 u/ml 10 ml vial SC SCH ×2 (11:00→17:50)
--- NOTE | 2017-03-05 15:21 | CP.PCM.PN ---
Subjective - Date & Time of Evaluation Date of Evaluation: 03/05/17 Time of Evaluation: 15:19 - Subjective Subjective: Assessment: Stable recurrent nausea/vomitting, marijuana abuse, gastroparesis Diabetic chronic Kidney Disease (E11.22) Hypertensive Chronic Kidney Disease (I12.0) End stage renal disease (N18.6) dependence on hemodialysis (Z99.2) (MWF) via AVF Anemia (D64.9), Hyperphosphatemia (E83.39), Secondary Hyperparathyroidism (E21.1 ), HTN (I12.0) Plan: HD MWF. Continue with Nephrovite 1 tab/day. Hb stable no MOHINI at this time Continue with phos binders BP stable S: feels ok no complaints Physical Examination: General Appearance: no acute respiratory distress, co-operative . Vitals reviewed and noted as below Head; Atraumatic, normocephalic ENT: no ulcers no thrush. Tongue is midline. Oropharynx: no rash or ulcers. EYES: Pupils are equal, round and reactive to light accommodation. Eye muscles and extraocular movement intact. Sclera is anicteric. Neck; supple no lymphadenopathy, no thyromegaly or bruit Lungs: Normal respiratory rate/effort. Breath sounds bilateral equal and clear Heart: Normal rate. s1s2 normal. No rub or gallop. Extremities: no edema. No varicose veins Neurological: Patient is alert, awake and oriented to person, place and time. No focal deficit. Strength bilateral appropriate and equal Skin: Warm and dry. Normal turgor. No rash. Palpitation: Normal elasticity for age Abdomen: Abdomen is soft. Bowel sounds +. There is mild epigastric abdominal tenderness, no guarding/rigidity or organomegaly Psych: limited insight and normal affect/mood MSK: no joint tenderness or swelling. Digits and nails normal, no deformity. : kidney or bladder not palpable. Access: AVF Objective - Vital Signs/Intake and Output Vital Signs (last 24 hours): Temp Pulse Resp BP Pulse Ox 98.3 F 72 20 158/85 H 97 03/05/17 07:00 03/05/17 07:00 03/05/17 07:00 03/05/17 07:00 03/05/17 07:00 Intake and Output: 03/05/17 03/05/17 06:59 18:59 Intake Total 470 Balance 470 - Medications Medications: Current Medications Amlodipine Besylate (Norvasc) 10 mg PO DAILY [facility] Last Admin: 03/05/17 11:00 Dose: 10 mg Aspirin (Aspirin Chewable) 81 mg PO DAILY [facility] Last Admin: 03/05/17 11:00 Dose: 81 mg Hydralazine HCl (Apresoline) 10 mg IVP Q6H PRN PRN Reason: Systolic Blood Pressure Last Admin: 03/05/17 00:42 Dose: 10 mg Insulin Aspart (Novolog) 20 unit SC BID [facility] Last Admin: 03/05/17 11:00 Dose: Not Given Insulin Human Regular (Novolin R) 0 unit SC ACHS [facility] PRN Reason: Protocol Last Admin: 03/05/17 15:09 Dose: Not Given Lisinopril (Zestril) 10 mg PO DAILY [facility] Last Admin: 03/05/17 11:00 Dose: 10 mg Morphine Sulfate (Morphine) 1 mg IVP Q4 PRN PRN Reason: Pain, moderate (4-7) Last Admin: 03/05/17 11:23 Dose: 1 mg Ondansetron HCl (Zofran Inj) 4 mg IVP Q6 PRN PRN Reason: Nausea/Vomiting Last Admin: 03/03/17 06:27 Dose: 4 mg Pantoprazole Sodium (Protonix Ec Tab) 40 mg PO DAILY [facility] Last Admin: 03/05/17 11:00 Dose: 40 mg Rosuvastatin Calcium (Crestor) 2.5 mg PO HS [facility] Last Admin: 03/04/17 22:01 Dose: 2.5 mg Sevelamer Carbonate (Renvela) 2,400 mg PO TID [facility] Last Admin: 03/05/17 15:16 Dose: Not Given Sucralfate (Carafate Tab) 1 gm PO Q12 [facility] Last Admin: 03/05/17 11:00 Dose: 1 gm Vitamin B Complex/Vit C/Folic Acid (Nephro-Yomi) 1 tab PO 0800 [facility] Last Admin: 03/05/17 11:00 Dose: 1 tab - Labs Labs: 03/04/17 09:51 03/04/17 09:51 PT 10.9 SECONDS (9.7-12.2) 03/03/17 01:48 INR 1.0 03/03/17 01:48 APTT 24 SECONDS (21-34) 03/03/17 01:48
[2017-03-05 16:59] LABS: BASO # 0.1 K/uL (0.0-0.2); BASO % 0.8 % (0.0-2.0); EOS # 0.3 K/uL (0.0-0.7); EOS % 3.2 % (0.0-4.0); HEMOGLOBIN 11.7 g/dL (12.0-18.0); LYMPH % 22.4 % (20.0-40.0); MEAN CELL VOLUME 92.2 fL (80.0-94.0); MEAN CORPUSCULAR HEMOGLOBIN 29.1 pg (27.0-31.0); MEAN CORPUSCULAR HGB CONC 31.5 g/dL (33.0-37.0); MEAN PLATELET VOLUME 8.5 fL (7.2-11.7); MONO # 0.7 K/uL (0.0-0.8); MONO % 8.5 % (0.0-10.0); NEUT # 5.7 K/uL (1.8-7.0); NEUT % 65.1 % (50.0-75.0); NRBC % 0.7 % (0.0-2.0); RBC 4.02 Mil/uL (4.40-5.90); WHITE BLOOD COUNT 8.8 K/uL (4.8-10.8)
[2017-03-05 17:24] LABS: ALBUMIN 3.5 g/dL (3.5-5.0)
[2017-03-05] MEDS: Rosuvastatin Calcium 2.5 mg Tab PO SCH (20:59)
[2017-03-06] MEDS: (Novolog) Insulin Aspart, Recombinant 100 u/ml 10 ml vial SC SCH ×2 (08:00→17:38)
[2017-03-06] MEDS: (Novolin R) Insulin Human Regular 100 units/ml vial SC SCH ×4 (08:50→21:25)
[2017-03-06] MEDS: Multivitamin Vitamin B Complex (Nephro-Vite) Tab PO SCH (08:53)
[2017-03-06] MEDS: Pantoprazole 40 mg EC Tab PO SCH (09:38)
--- NOTE | 2017-03-06 15:15 | CP.PCM.PN ---
Subjective - Date & Time of Evaluation Date of Evaluation: 03/06/17 Time of Evaluation: 15:14 - Subjective Subjective: Assessment: Stable recurrent nausea/vomitting, marijuana abuse, gastroparesis Diabetic chronic Kidney Disease (E11.22) Hypertensive Chronic Kidney Disease (I12.0) End stage renal disease (N18.6) dependence on hemodialysis (Z99.2) (MWF) via AVF Anemia (D64.9), Hyperphosphatemia (E83.39), Secondary Hyperparathyroidism (E21.1 ), HTN (I12.0) hyponatremia Plan: HD MWF. Continue with Nephrovite 1 tab/day. Hb stable no MOHINI at this time Continue with phos binders BP stable na prob decreased partly from hyperglycemiaand ? also from adh stimulation from pain? should improve w/ hd tomorrow n and v per primary S: feels ok no complaints Physical Examination: General Appearance: no acute respiratory distress, co-operative . Vitals reviewed and noted as below Head; Atraumatic, normocephalic ENT: no ulcers no thrush. Tongue is midline. Oropharynx: no rash or ulcers. EYES: Pupils are equal, round and reactive to light accommodation. Eye muscles and extraocular movement intact. Sclera is anicteric. Neck; supple no lymphadenopathy, no thyromegaly or bruit Lungs: Normal respiratory rate/effort. Breath sounds bilateral equal and clear Heart: Normal rate. s1s2 normal. No rub or gallop. Extremities: no edema. No varicose veins Neurological: Patient is alert, awake and oriented to person, place and time. No focal deficit. Strength bilateral appropriate and equal Skin: Warm and dry. Normal turgor. No rash. Palpitation: Normal elasticity for age Abdomen: Abdomen is soft. Bowel sounds +. There is mild epigastric abdominal tenderness, no guarding/rigidity or organomegaly Psych: limited insight and normal affect/mood MSK: no joint tenderness or swelling. Digits and nails normal, no deformity. : kidney or bladder not palpable. Access: AVF Objective - Vital Signs/Intake and Output Vital Signs (last 24 hours): Temp Pulse Resp BP Pulse Ox 97.9 F 70 20 159/80 H 97 03/06/17 08:05 03/06/17 08:05 03/06/17 08:05 03/06/17 08:05 03/06/17 08:05 Intake and Output: 03/06/17 03/06/17 06:59 18:59 Intake Total 480 480 Balance 480 480 - Medications Medications: Current Medications Amlodipine Besylate (Norvasc) 10 mg PO DAILY [facility] Last Admin: 03/06/17 09:38 Dose: 10 mg Aspirin (Aspirin Chewable) 81 mg PO DAILY [facility] Last Admin: 03/06/17 09:38 Dose: 81 mg Hydralazine HCl (Apresoline) 10 mg IVP Q6H PRN PRN Reason: Systolic Blood Pressure Last Admin: 03/05/17 00:42 Dose: 10 mg Insulin Aspart (Novolog) 20 unit SC BID [facility] Last Admin: 03/06/17 08:00 Dose: Not Given Insulin Human Regular (Novolin R) 0 unit SC ACHS [facility] PRN Reason: Protocol Last Admin: 03/06/17 12:14 Dose: 4 unit Lisinopril (Zestril) 10 mg PO DAILY [facility] Last Admin: 03/06/17 09:56 Dose: 10 mg Morphine Sulfate (Morphine) 1 mg IVP Q4 PRN PRN Reason: Pain, moderate (4-7) Last Admin: 03/06/17 14:54 Dose: 1 mg Ondansetron HCl (Zofran Inj) 4 mg IVP Q6 PRN PRN Reason: Nausea/Vomiting Last Admin: 03/03/17 06:27 Dose: 4 mg Pantoprazole Sodium (Protonix Ec Tab) 40 mg PO DAILY [facility] Last Admin: 03/06/17 09:38 Dose: 40 mg Rosuvastatin Calcium (Crestor) 2.5 mg PO HS [facility] Last Admin: 03/05/17 20:59 Dose: 2.5 mg Sevelamer Carbonate (Renvela) 2,400 mg PO TID [facility] Last Admin: 03/06/17 13:50 Dose: Not Given Sucralfate (Carafate Tab) 1 gm PO Q12 [facility] Last Admin: 03/06/17 09:38 Dose: 1 gm Vitamin B Complex/Vit C/Folic Acid (Nephro-Yomi) 1 tab PO 0800 [facility] Last Admin: 03/06/17 08:53 Dose: 1 tab - Labs Labs: 03/05/17 16:54 03/05/17 16:54 PT 10.9 SECONDS (9.7-12.2) 03/03/17 01:48 INR 1.0 03/03/17 01:48 APTT 24 SECONDS (21-34) 03/03/17 01:48
[2017-03-06] MEDS: Rosuvastatin Calcium 2.5 mg Tab PO SCH (21:24)
--- NOTE | 2017-03-06 21:46 | PN ---
DATE: SUBJECTIVE: Patient complaining of nausea and vomiting. Supportive care. Lucero Chadwick MD
--- NOTE | 2017-03-06 22:03 | PN ---
DATE: SUBJECTIVE: The patient admitted to the hospital with weakness and abdominal pain. Continue treatment, supportive care. Lucero Chadwick MD
[2017-03-07] MEDS: Multivitamin Vitamin B Complex (Nephro-Vite) Tab PO SCH (09:00)
[2017-03-07] MEDS: (Novolin R) Insulin Human Regular 100 units/ml vial SC SCH ×3 (09:31→17:24)
--- NOTE | 2017-03-07 09:38 | CP.PCM.PN ---
Subjective - Date & Time of Evaluation Date of Evaluation: 03/07/17 Time of Evaluation: 09:37 - Subjective Subjective: PGY-[address] Chadwick's Service: Pt seen and examined at bedside. Nursing reports patient did not vomit overnight. Pt was found lying comfortably in dialysis. He states his abdominal pain is improved since admission but he is complaining of nausea after "over- eating" last night. Patient also c/o persistent constipation with last bowel movement "3 days ago - which was really hard to push out." He denies chest pain , palpitations, SOB, fever, or chills. Objective - Vital Signs/Intake and Output Vital Signs (last 24 hours): Temp Pulse Resp BP Pulse Ox 97.6 F 90 20 173/76 H 97 03/07/17 08:48 03/07/17 08:48 03/07/17 08:48 03/07/17 08:48 03/07/17 08:48 Intake and Output: 03/07/17 03/07/17 06:59 18:59 Intake Total 320 Balance 320 - Medications Medications: Current Medications Amlodipine Besylate (Norvasc) 10 mg PO DAILY [facility] Last Admin: 03/06/17 09:38 Dose: 10 mg Aspirin (Aspirin Chewable) 81 mg PO DAILY [facility] Last Admin: 03/06/17 09:38 Dose: 81 mg Hydralazine HCl (Apresoline) 10 mg IVP Q6H PRN PRN Reason: Systolic Blood Pressure Last Admin: 03/07/17 05:14 Dose: 10 mg Insulin Aspart (Novolog) 20 unit SC BID [facility] Last Admin: 03/06/17 17:38 Dose: Not Given Insulin Human Regular (Novolin R) 0 unit SC ACHS [facility] PRN Reason: Protocol Last Admin: 03/07/17 09:31 Dose: Not Given Lisinopril (Zestril) 10 mg PO DAILY [facility] Last Admin: 03/06/17 09:56 Dose: 10 mg Morphine Sulfate (Morphine) 1 mg IVP Q4 PRN PRN Reason: Pain, moderate (4-7) Last Admin: 03/07/17 08:36 Dose: 1 mg Ondansetron HCl (Zofran Inj) 4 mg IVP Q6 PRN PRN Reason: Nausea/Vomiting Last Admin: 03/03/17 06:27 Dose: 4 mg Pantoprazole Sodium (Protonix Ec Tab) 40 mg PO DAILY [facility] Last Admin: 03/06/17 09:38 Dose: 40 mg Rosuvastatin Calcium (Crestor) 2.5 mg PO HS [facility] Last Admin: 03/06/17 21:24 Dose: 2.5 mg Sevelamer Carbonate (Renvela) 2,400 mg PO TID [facility] Last Admin: 03/06/17 17:38 Dose: 2,400 mg Sucralfate (Carafate Tab) 1 gm PO Q12 [facility] Last Admin: 03/06/17 21:24 Dose: 1 gm Vitamin B Complex/Vit C/Folic Acid (Nephro-Yomi) 1 tab PO 0800 [facility] Last Admin: 03/07/17 09:00 Dose: 1 tab - Labs Labs: 03/05/17 16:54 03/05/17 16:54 PT 10.9 SECONDS (9.7-12.2) 03/03/17 01:48 INR 1.0 03/03/17 01:48 APTT 24 SECONDS (21-34) 03/03/17 01:48 - Constitutional Appears: Non-toxic, No Acute Distress, Older Than Stated Age, Chronically Ill - Head Exam Head Exam: ATRAUMATIC, NORMAL INSPECTION - Eye Exam Eye Exam: EOMI. absent: Scleral icterus Pupil Exam: PERRL - ENT Exam ENT Exam: Mucous Membranes Moist - Respiratory Exam Respiratory Exam: Clear to Ausculation Bilateral, NORMAL BREATHING PATTERN. absent: Rales, Rhonchi, Wheezes - Cardiovascular Exam Cardiovascular Exam: REGULAR RHYTHM, +S1, +S2 - GI/Abdominal Exam GI & Abdominal Exam: Soft, Normal Bowel Sounds. absent: Tenderness - Extremities Exam Extremities Exam: Normal Inspection. absent: Tenderness - Neurological Exam Neurological Exam: Alert, Awake, Oriented x3 - Psychiatric Exam Psychiatric exam: Normal Affect, Normal Mood - Skin Skin Exam: Normal Color, Warm Assessment and Plan - Assessment and Plan (Free Text) Plan: 36 year old male with past medical history of IDDM, HTN, CKD on HD MWF, gastroparesis is admitted for intractable nausea, vomiting and abd pain. Gastroparesis Admit to tele Patient with poorly controlled diabetes Carafate 1gm PO Q12H Morphine 1mg IV q4H PRN (moderate) Zofran 4 mg IVP q6h PRN - pt refuses Reglan saying it "does not work for him" Protonix 40mg PO Daily GI Bleed Resolved; hgb stable Pt admitted on 03/03/17 c/o of hematemesis Hgb stable through admission f/u AM labs IDDM Hgb A1c check in 01/2017 was 7.7 Accuchecks ACHS ISS Novolog 20u BID ASA 81mg PO Daily Lisinopril 10mg PO Daily Crestor 2.5mg PO Daily HTN Pt presented with blood pressure of 180/92, improved over course Norvasc 10 mg PO Daily Hydralazine 10mg IV Q6H PRN Monitor CKD on HD MWF [employer], Dr. Quezada, help appreciated Renal diet Renvela 2400mg PO TID Nephrovite 1 tab PO QAM Prophylaxis Continue home dose of Carafate SCDs Protonix 40mg PO Daily Disposition: Pt for discharge today after dialysis. Ang Dozier PGY-2 Case will be discussed with Dr. Chadwick. All managements and orders per Dr. Chadwick
[2017-03-07] MEDS: Pantoprazole 40 mg EC Tab PO SCH (10:20)
[2017-03-07] MEDS: (Novolog) Insulin Aspart, Recombinant 100 u/ml 10 ml vial SC SCH ×2 (10:20→17:25)
[2017-03-07] MEDS ORDERED: Morphine 4 MG/ML VIAL IVP PRN (14:30)
[2017-03-07 17:03] VITALS: BP 152/85; RESP 20; TEMP 98.6; O2SAT 99
--- NOTE | 2017-03-07 18:43 | CP.PCM.PN ---
Subjective - Date & Time of Evaluation Date of Evaluation: 03/07/17 Time of Evaluation: 18:43 - Subjective Subjective: Follow up Nephrology Consultation Note Assessment: Stable recurrent nausea/vomitting, cyclic emesis syndrome, marijuana abuse, gastroparesis Diabetic chronic Kidney Disease (E11.22) Hypertensive Chronic Kidney Disease (I12.0) End stage renal disease (N18.6) dependence on hemodialysis (Z99.2) (MWF) via AVF Anemia (D64.9), Hyperphosphatemia (E83.39), Secondary Hyperparathyroidism (E21.1 ), HTN (I12.0) Hyponatremia Plan: dialysis today as ordered. Continue with Nephrovite 1 tab/day. Hb 11-12 hence no MOHINI at this time Continue with phos binders BP control with meds as ordered. on lisinopril Glycemic control, Dialysis consistent diet Further work up/management as per primary team Dose meds/antibiotics (if needed) for ESRD status. Avoid fleets enema/magnesium based laxatives. pt to abstain from marijuana Thanks for allowing me to participate in care of your patient. Will follow patient with you. Please call if any Qs Dr Brenton Larsen Office: [phone] Reason for consult; ESRD, HTN HPI: Pt is a 36 y/o M with hx of ESRD on hemodialysis (MWF) via AVF, chronic anemia, hyperphosphatemia, secondary hyperparathyroidism, Diabetes Mellitus, hypertension, recurrent nausea/vomiting and multiple hospitalization for same, came back with nausea/vomitting. continue to smoke marijuana Denies chest pain, palpitation, shortness of breath, leg swelling c/o pain upper abdomen and nausea x 1 day ROS: Constitutional Symptoms: Denies fever. No chills. No Recent Weight Changes Cardiovascular: No chest pain. There is no shortness of breath. No palpitations. Pulmonary: No cough. Gastrointestinal: c/o abdominal pain no nausea/vomiting. All other negative. Physical Examination: General Appearance: uncomfortable, in no acute respiratory distress, co- operative . Vitals reviewed and noted as below Head; Atraumatic, normocephalic ENT: no ulcers no thrush. Tongue is midline. Oropharynx: no rash or ulcers. EYES: Pupils are equal, round and reactive to light accommodation. Eye muscles and extraocular movement intact. Sclera is anicteric. Neck; supple no lymphadenopathy, no thyromegaly or bruit Lungs: Normal respiratory rate/effort. Breath sounds bilateral equal and clear Heart: Normal rate. s1s2 normal. No rub or gallop. Extremities: no edema. No varicose veins Neurological: Patient is alert, awake and oriented to person, place and time. No focal deficit. Strength bilateral appropriate and equal Skin: Warm and dry. Normal turgor. No rash. Palpitation: Normal elasticity for age Abdomen: Abdomen is soft. Bowel sounds +. There is mild epigastric abdominal tenderness, no guarding/rigidity or organomegaly Psych: limited insight and normal affect/mood MSK: no joint tenderness or swelling. Digits and nails normal, no deformity. : kidney or bladder not palpable. Access: AVF Labs/imaging reviewed. Past medical history, past surgical history, family history, social history, allergy reviewed and noted as below Family Hx: no hx of CKD. Non contributory sec HTN work up neg as renin/ioana, metanephrine and renal artery doppler Objective - Vital Signs/Intake and Output Vital Signs (last 24 hours): Temp Pulse Resp BP Pulse Ox 98.6 F 96 H 20 152/85 H 99 03/07/17 15:00 03/07/17 15:00 03/07/17 15:00 03/07/17 15:00 03/07/17 15:00 Intake and Output: 03/07/17 03/07/17 06:59 18:59 Intake Total 320 350 Balance 320 350 - Labs Labs: 03/05/17 16:54 03/05/17 16:54 PT 10.9 SECONDS (9.7-12.2) 03/03/17 01:48 INR 1.0 03/03/17 01:48 APTT 24 SECONDS (21-34) 03/03/17 01:48
[2017-03-07 19:33] VITALS: PULSE 81
== END 2017-03-07 18:35 | disposition home or self-care (01) | DRG 73 ==
LOC: C.ER 00:57 → C.6T 02:48
PROVIDERS: ADMIT Internal Medicine Pulmonary Disease; ATTEND Internal Medicine Pulmonary Disease
PROC: 5A1D70Z Performance of Urinary Filtration, Intermittent, Less than 6 Hours Per Day (ICD-10-PCS; principal; 2017-03-03)
DX: E11.43 Type 2 diabetes mellitus with diabetic autonomic (poly)neuropathy (principal); N18.6 End stage renal disease; I13.2 Hypertensive heart and chronic kidney disease with heart failure and with stage 5 chronic kidney disease, or end stage renal disease; E83.39 Other disorders of phosphorus metabolism; E87.1 Hypo-osmolality and hyponatremia; K92.2 Gastrointestinal hemorrhage, unspecified; N25.81 Secondary hyperparathyroidism of renal origin; K31.84 Gastroparesis; Z79.4 Long term (current) use of insulin; E78.00 Pure hypercholesterolemia, unspecified; F12.10 Cannabis abuse, uncomplicated; F17.200 Nicotine dependence, unspecified, uncomplicated; I50.9 Heart failure, unspecified; I16.0 Hypertensive urgency; K59.00 Constipation, unspecified; Z99.2 Dependence on renal dialysis; D64.9 Anemia, unspecified; Z68.20 Body mass index [BMI] 20.0-20.9, adult

== ENCOUNTER 2017-03-10 00:08 | Inpatient (IN) | payer MEDICARE, MEDICAID ==
[2017-03-10 00:09] VITALS: BMI 19.5
--- NOTE | 2017-03-10 00:23 | C.PDOC ---
History Of Present Illness 36 year old male with medical history of end-stage renal disease, who presents to the emergency department with a complaint of abdominal pain associated with nausea and vomiting ongoing since this morning, also, requesting pain medication. Patient has been seen in ED multiple times for similar symptoms in past and usually attends dialysis treatments on //. PMD: Lucero Chadwick MD Time Seen by Provider: 03/10/17 00:23 Chief Complaint (Nursing): Abdominal Pain History Per: Patient History/Exam Limitations: no limitations Onset/Duration Of Symptoms: Days (x1) Current Symptoms Are (Timing): Still Present Context: Other Severity: Severe Pain Scale Rating Of: 6 Location Of Pain/Discomfort: Diffuse Radiation Of Pain To:: None Quality Of Discomfort: Cramping Associated Symptoms: Nausea, Vomiting. denies: Fever, Chills Exacerbating Factors: Food Alleviating Factors: None Last Bowel Movement: Yesterday Recent travel outside of the [place]: No Additional History Per: Patient Past Medical History Reviewed: Historical Data, Nursing Documentation, Vital Signs Vital Signs: Last Vital Signs Temp 98.3 F 03/10/17 00:17 Pulse 101 H 03/10/17 00:17 Resp 18 03/10/17 00:17 BP 231/102 H 03/10/17 00:17 Pulse Ox 97 03/10/17 01:52 - Medical History PMH: Anemia, CHF, Diabetes (type I; ), Gastritis (gastroparesis), HTN, Hypercholesterolemia, Peripheral Edema, End Stage Renal Disease, Chronic Kidney Disease Denies: HIV, Kidney Stones - [facility] Procedures (03/03/17) (11/12/16) BYPASS LEFT BRACHIAL ARTERY TO UPPER ARM VEIN, OPEN APPROACH (02/17/16) DILATION OF LEFT BASILIC VEIN, PERCUTANEOUS APPROACH (11/06/16) EXCISION OF ASCENDING COLON, ENDO, DIAGN (12/19/15) EXCISION OF DESCENDING COLON, ENDO, DIAGN (10/22/16) EXCISION OF DUODENUM, ENDO, DIAGN (03/25/16) EXCISION OF LARGE INTESTINE, ENDO, DIAGN (05/06/16) EXCISION OF MIDDLE ESOPHAGUS, ENDO, DIAGN (03/25/16) EXCISION OF STOMACH, ENDO, DIAGN (02/05/17) EXCISION OF TRANSVERSE COLON, ENDO, DIAGN (05/06/16) INSERTION OF INFUSION DEV INTO SUP VENA CAVA, PERC APPROACH (12/19/15) PERFORMANCE OF URINARY FILTRATION, MULTIPLE (10/28/16) PERFORMANCE OF URINARY FILTRATION, SINGLE (11/06/16) REPOSITION LEFT BASILIC VEIN, OPEN APPROACH (05/25/16) ULTRASONOGRAPHY OF SUPERIOR VENA CAVA, GUIDANCE (12/19/15) Family History: States: Diabetes, Hypertension - Social History Hx Tobacco Use: Yes (some days) Hx Alcohol Use: No Hx Substance Use: Yes (Marijuana) - Immunization History Hx Tetanus Toxoid Vaccination: Yes Hx Influenza Vaccination: Yes Hx Pneumococcal Vaccination: Yes Review Of Systems Constitutional: Negative for: Fever, Chills Eyes: Negative for: Redness ENT: Negative for: Throat Pain Cardiovascular: Negative for: Chest Pain Respiratory: Negative for: Shortness of Breath Gastrointestinal: Positive for: Nausea, Vomiting, Abdominal Pain, Hematemesis Skin: Negative for: Rash Neurological: Negative for: Weakness Psych: Positive for: Anxiety Physical Exam - Physical Exam Appears: In Acute Distress (moderate) Skin: Warm, Dry Head: Normacephalic Eye(s): bilateral: Normal Inspection Oral Mucosa: Moist, Other (spitting up saliva in emesis basin) Neck: Supple Chest: Symmetrical Cardiovascular: Rhythm Regular Respiratory: No Decreased Breath Sounds, No Rales, No Rhonchi, No Wheezing Gastrointestinal/Abdominal: Soft, Tenderness (diffuse) Back: Normal Inspection, No CVA Tenderness, No Vertebral Tenderness Extremity: Normal ROM (upper/lower), No Tenderness, No Pedal Edema, Other (left AV graft with thrill and bruit) Extremity: Bilateral: No Pedal Edema Pulses: Left Dorsalis Pedis: Normal, Right Dorsalis Pedis: Normal Neurological/Psych: Oriented x3, Normal Speech, Normal Cognition Gait: With Assistance ED Course And Treatment - Laboratory Results Result Diagrams: 03/10/17 00:38 03/10/17 00:38 ECG: Interpreted By Me, Viewed By Me ECG Rhythm: Sinus Rhythm (99), Nonspecific Changes O2 Sat by Pulse Oximetry: 97 (RA) Pulse Ox Interpretation: Normal (unchanged from 03/03/17) - Radiology CXR: Interpreted by Me, Viewed By Me CXR Interpretation: No: Infiltrates, Fracture, Pnemothorax - Other Rad obstr X-Ray: Interpreted by Me, Viewed By Me Interpretation: no free air, no obstr Medical Decision Making Medical Decision Making: Initial Impression: Abdominal pain Initial Plan: * Type and screen * EKG * CMP * CBC * PTT * PT * Xray obstructive series * Ativan 1mg IVP * Protonix inj 80mg * Zofran inj 4mg IVP * UA Scribe Attestation: Documented by Cristal Bonilla, acting as a scribe for Nimesh Ho MD. Provider Scribe Attestation: All medical record entries made by the Scribe were at my direction and personally dictated by me. I have reviewed the chart and agree that the record accurately reflects my personal performance of the history, physical exam, medical decision making, and the department course for this patient. I have also personally directed, reviewed, and agree with the discharge instructions and disposition. Disposition Discussed With : Lucero Chadwick Comment: accepted the pt [facility] and took over the care at 1:55 AM Doctor Will See Patient In The: Hospital Counseled Patient/Family Regarding: Studies Performed, Diagnosis - Disposition Disposition: HOSPITALIZED Disposition Time: 00:23 Condition: FAIR Forms: [facility] (Slovenian) - POA Present On Arrival: Poor Glycemic Control - Clinical Impression Clinical Impression: ESRD (end stage renal disease) on dialysis, Gastroparesis due to DM, Intractable vomiting with nausea, Hematemesis with nausea Decision To Admit - Pt Status Changed To: Hospital Disposition Of: Inpatient - Admit Certification Admit to Inpatient:: After my assessment, the patient will require hospitalization for at least two midnights. This is because of the severity of symptoms shown, intensity of services needed, and/or the medical risk in this patient being treated as an outpatient. - InPatient: Physician Admission Certification:: After my assessment, the patient will require hospitalization for at least two midnights. This is because of the severity of symptoms shown, intensity of services needed, and/or the medical risk in this patient being treated as an outpatient. - . Bed Request Type: Regular Patient Diagnosis: ESRD (end stage renal disease) on dialysis, Gastroparesis due to DM, Intractable vomiting with nausea, Hematemesis with nausea
[2017-03-10] MEDS ORDERED: Pantoprazole 80 MG in Sodium Chloride 0.9% 100 ML IV STA (00:26)
[2017-03-10 00:42] LABS: BASO # 0.1 K/uL (0.0-0.2); BASO % 0.7 % (0.0-2.0); EOS % 0.3 % (0.0-4.0); HEMOGLOBIN 13.2 g/dL (12.0-18.0); LYMPH # 0.7 K/uL (1.0-4.3); LYMPH % 6.8 % (20.0-40.0); MEAN CELL VOLUME 92.3 fL (80.0-94.0); MEAN CORPUSCULAR HEMOGLOBIN 30.2 pg (27.0-31.0); MEAN CORPUSCULAR HGB CONC 32.8 g/dL (33.0-37.0); MEAN PLATELET VOLUME 9.7 fL (7.2-11.7); MONO # 0.6 K/uL (0.0-0.8); MONO % 5.6 % (0.0-10.0); NEUT # 8.8 K/uL (1.8-7.0); NEUT % 86.6 % (50.0-75.0); NRBC % 0.1 % (0.0-2.0); PLATELET COUNT 239 K/uL (130-400); RBC 4.36 Mil/uL (4.40-5.90); RED CELL DISTRIBUTION WIDTH 22.3 % (11.5-14.5); WHITE BLOOD COUNT 10.2 K/uL (4.8-10.8)
[2017-03-10 00:53] LABS: PROTHROMBIN TIME 11.4 SECONDS (9.7-12.2)
[2017-03-10 01:05] LABS: ALB/GLOB RATIO 1.2 (1.0-2.1); ALBUMIN 4.4 g/dL (3.5-5.0); CALCIUM 9.3 mg/dl (8.6-10.4)
[2017-03-10 01:27] LABS: BANDS 2 % (0-2); LYMPHOCYTE 7 % (20-40); MONOCYTE 7 % (0-10); NEUTROPHIL 84 % (50-75); PLATELET ESTIMATE NORMAL (NORMAL); TOTAL CELLS COUNTED 100
[2017-03-10] MEDS ORDERED: HYDROmorphone 1 mg/ml ISec IVP STA (01:40)
[2017-03-10] MEDS ORDERED: HYDROmorphone 1 mg/ml ISec IVP PRN (02:02)
[2017-03-10] MEDS ORDERED: Dextrose 5%/0.45% NS 1,000 ML IV SCH (02:15)
[2017-03-10] MEDS ORDERED: Dextrose 5%/0.45% NS 1,000 ML IV ONE (02:16)
--- NOTE | 2017-03-10 07:40 | CP.PCM.PN ---
Subjective - Date & Time of Evaluation Date of Evaluation: 03/10/17 Time of Evaluation: 07:00 - Subjective Subjective: PGY-[address] Chadwick's Service: Patient was seen and examined at bedside. Patient was complaining of abdominal pain associated with nausea and vomiting ongoing since this morning. Patient has been admitted for this same complaint many time which occurs after smoking marijuana. Patient He denies chest pain, palpitations, SOB, fever, or chills. He was requesting pain medication. Objective - Vital Signs/Intake and Output Vital Signs (last 24 hours): Temp Pulse Resp BP Pulse Ox 98.3 F 90 20 159/78 H 97 03/10/17 00:17 03/10/17 06:00 03/10/17 06:00 03/10/17 06:00 03/10/17 06:00 - Medications Medications: Current Medications Amlodipine Besylate (Norvasc) 10 mg PO DAILY [facility] Clonidine HCl (Catapres) 0.3 mg PO TID [facility] Hydromorphone HCl (Dilaudid) 1 mg IVP Q4 PRN PRN Reason: Pain, moderate (4-7) Dextrose/Sodium Chloride (Dextrose 5%/0.45% Ns 1000 Ml) 1,000 mls @ 40 mls/hr IV .Q24H [facility] Last Admin: 03/10/17 02:17 Dose: 40 mls/hr Ondansetron HCl (Zofran Inj) 4 mg IVP Q6 PRN PRN Reason: Nausea/Vomiting Pantoprazole Sodium (Protonix Inj) 40 mg IVP DAILY [facility] - Labs Labs: 03/10/17 00:38 03/10/17 00:38 PT 11.4 SECONDS (9.7-12.2) 03/10/17 00:38 INR 1.0 03/10/17 00:38 APTT 30 SECONDS (21-34) 03/10/17 00:38 - Constitutional Appears: Non-toxic, No Acute Distress, Unkempt - Head Exam Head Exam: ATRAUMATIC, NORMAL INSPECTION - Eye Exam Eye Exam: EOMI Pupil Exam: NORMAL ACCOMODATION - ENT Exam ENT Exam: Mucous Membranes Moist - Respiratory Exam Respiratory Exam: Clear to Ausculation Bilateral, NORMAL BREATHING PATTERN. absent: Decreased Breath Sounds, Rales, Wheezes, Respiratory Distress - Cardiovascular Exam Cardiovascular Exam: REGULAR RHYTHM, +S1, +S2 - GI/Abdominal Exam GI & Abdominal Exam: Soft, Normal Bowel Sounds. absent: Distended, Firm, Guarding, Tenderness - Extremities Exam Extremities Exam: Normal Inspection Additional comments: Other (left AV graft with thrill and bruit) - Back Exam Back Exam: NORMAL INSPECTION - Neurological Exam Neurological Exam: Alert, Awake, CN II-XII Intact, Oriented x3 - Psychiatric Exam Psychiatric exam: Normal Affect, Normal Mood - Skin Skin Exam: Dry, Intact, Normal Color, Warm Assessment and Plan - Assessment and Plan (Free Text) Assessment: 36 year old male with past medical history of IDDM, HTN, CKD on HD MWF, gastroparesis is admitted for intractable nausea, vomiting and abd pain. Gastroparesis Admit to tele Patient with poorly controlled diabetes Carafate 1gm PO Q12H Morphine 1mg IV q4H PRN (moderate) Zofran 4 mg IVP q6h PRN Protonix 40mg PO Daily IDDM Hgb A1c check in 01/2017 was 7.7 Accuchecks ACHS ISS Novolog 20u BID will add back when patient is able to tolerate PO ASA 81mg PO Daily Lisinopril 10mg PO Daily Crestor 2.5mg PO Daily HTN Lisnopril 10mg PO daily Norvasc 10 mg PO Daily Hydralazine 10mg IV Q6H PRN Monitor CKD on HD MWF Application Support Administrator, Dr. Quezada, help appreciated Renal diet Renvela 2400mg PO TID Nephrovite 1 tab PO QAM Prophylaxis Continue home dose of Carafate SCDs Protonix 40mg PO Daily [employer] [facility] PGY-2 All managements and orders per Dr. Chadwick
--- NOTE | 2017-03-10 08:32 | RAD ---
PROCEDURE: Radiographs of the chest and abdomen (obstructive series) HISTORY: n/v COMPARISON: No prior. TECHNIQUE: AP radiograph of the chest, with upright and supine radiographs of the abdomen. FINDINGS: CHEST: Lungs: Clear. Cardiovascular: Normal size heart. No pulmonary vascular congestion. Pleura: No pleural fluid. No pneumothorax. Other findings: None. ABDOMEN AND PELVIS: Bowel: There is paucity of small and large bowel gas. . No evidence of mechanical obstruction. Free air: None. Bones: Bilateral hip arthrosis -more advanced than typically seen in a 36-year-old patient. L4-5 and L5-S1 facet hypertrophic arthrosis right greater than left. Inferior thoracic spondylosis. Mild leftward lumbar convexity Other findings: Atherosclerotic vascular calcification worthy in this 36 role male patient. IMPRESSION: No pulmonary infiltrate. No bowel obstruction. Additional findings as above noted -given patient's age
--- NOTE | 2017-03-10 14:49 | CP.PCM.CON ---
History of Present Illness - History of Present Illness History of Present Illness: Initial Nephrology Consultation Note Assessment: Stable recurrent nausea/vomitting, cyclic emesis syndrome, marijuana abuse, gastroparesis Diabetic chronic Kidney Disease (E11.22) Hypertensive Chronic Kidney Disease (I12.0) End stage renal disease (N18.6) dependence on hemodialysis (Z99.2) (MWF) via AVF Anemia (D64.9), Hyperphosphatemia (E83.39), Secondary Hyperparathyroidism (E21.1 ), HTN (I12.0) Plan: dialysis tomorrow as ordered. Continue with Nephrovite 1 tab/day. Hb 11+ hence no MOHINI at this time Continue with phos binders BP control with meds as ordered. on lisinopril Glycemic control, Dialysis consistent diet Further work up/management as per primary team Dose meds/antibiotics (if needed) for ESRD status. Avoid fleets enema/magnesium based laxatives. pt to abstain from marijuana Thanks for allowing me to participate in care of your patient. Will follow patient with you. Please call if any Qs Dr Brenton Larsen Office: [phone] Chief Complaint; nausea/vomiting Reason for consult; ESRD, HTN HPI: Pt is a 36 y/o M with hx of ESRD on hemodialysis (MWF) via AVF, chronic anemia, hyperphosphatemia, secondary hyperparathyroidism, Diabetes Mellitus, hypertension, recurrent nausea/vomiting and multiple hospitalization for same, came back with nausea/vomitting. continue to smoke marijuana Denies chest pain, palpitation, leg swelling c/o pain upper abdomen and nausea x 1 day ROS: Constitutional Symptoms: Denies fever. No chills. No Recent Weight Changes Cardiovascular: No chest pain. There is shortness of breath. No palpitations. Pulmonary: No cough. Gastrointestinal: c/o abdominal pain now c/o nausea. c/o vomiting. Denies change in bowel habits. Denies Bleeding All other negative. Physical Examination: General Appearance: uncomfortable, in no acute respiratory distress, co- operative . Vitals reviewed and noted as below Head; Atraumatic, normocephalic ENT: no ulcers no thrush. Tongue is midline. Oropharynx: no rash or ulcers. EYES: Pupils are equal, round and reactive to light accommodation. Eye muscles and extraocular movement intact. Sclera is anicteric. Neck; supple no lymphadenopathy, no thyromegaly or bruit Lungs: Normal respiratory rate/effort. Breath sounds bilateral equal and clear Heart: Normal rate. s1s2 normal. No rub or gallop. Extremities: no edema. No varicose veins Neurological: Patient is alert, awake and oriented to person, place and time. No focal deficit. Strength bilateral appropriate and equal Skin: Warm and dry. Normal turgor. No rash. Palpitation: Normal elasticity for age Abdomen: Abdomen is soft. Bowel sounds +. There is mild epigastric abdominal tenderness, no guarding/rigidity or organomegaly Psych: limited insight and normal affect/mood MSK: no joint tenderness or swelling. Digits and nails normal, no deformity. : kidney or bladder not palpable. Access: AVF Labs/imaging reviewed. Past medical history, past surgical history, family history, social history, allergy reviewed and noted as below Family Hx: no hx of CKD. Non contributory sec HTN work up neg as renin/ioana, metanephrine and renal artery doppler Past Patient History - Infectious Disease Hx of Infectious Diseases: None - Past Medical History & Family History Past Medical History?: Yes - Past Social History Smoking Status: Current Some Days Smoker - CARDIAC Hx Congestive Heart Failure: Yes Hx Hypercholesterolemia: Yes Hx Hypertension: Yes Hx Peripheral Edema: Yes - PULMONARY Hx Respiratory Disorders: No - NEUROLOGICAL Hx Neurological Disorder: No - HEENT Hx HEENT Problems: Yes Hx Cataracts: Yes (rt cat sx) - RENAL Hx Chronic Kidney Disease: Yes Hx Kidney Stones: No - ENDOCRINE/METABOLIC Hx Endocrine Disorders: Yes Hx Diabetes Mellitus Type 1: Yes - HEMATOLOGICAL/ONCOLOGICAL Hx Anemia: Yes Hx Human Immunodeficiency Virus (HIV): No - INTEGUMENTARY Hx Dermatological Problems: No - MUSCULOSKELETAL/RHEUMATOLOGICAL Hx Musculoskeletal Disorders: Yes Hx Falls: Yes - GASTROINTESTINAL Hx Gastritis: Yes (gastroparesis) - GENITOURINARY/GYNECOLOGICAL Hx Genitourinary Disorders: No - PSYCHIATRIC Hx Substance Use: Yes (Marijuana) - SURGICAL HISTORY Hx Surgeries: Yes Hx Cataract Extraction: Yes (bilateral) Hx Vascular Access Device: Yes Other/Comment: Hx RT.PERMACATH INSERTION 12/30. 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 Hx UNDESCENDED TESTES LT. REMOVED DURING CHILDHOOD - ANESTHESIA Hx Anesthesia: Yes Hx Anesthesia Reactions: No Hx Malignant Hyperthermia: No Meds Allergies/Adverse Reactions: Allergies Allergy/AdvReac Type Severity Reaction Status Date / Time No Known Allergies Allergy Verified 03/03/17 01:10 - Medications Medications: Current Medications Amlodipine Besylate (Norvasc) 10 mg PO DAILY [facility] Last Admin: 03/10/17 10:10 Dose: 10 mg Aspirin (Aspirin Chewable) 81 mg PO DAILY [facility] Clonidine HCl (Catapres) 0.3 mg PO TID [facility] Last Admin: 03/10/17 10:10 Dose: 0.3 mg Hydromorphone HCl (Dilaudid) 1 mg IVP Q4 PRN PRN Reason: Pain, moderate (4-7) Last Admin: 03/10/17 10:09 Dose: 1 mg Dextrose/Sodium Chloride (Dextrose 5%/0.45% Ns 1000 Ml) 1,000 mls @ 40 mls/hr IV .Q24H [facility] Last Admin: 03/10/17 02:17 Dose: 40 mls/hr Lisinopril (Zestril) 10 mg PO DAILY [facility] Ondansetron HCl (Zofran Inj) 4 mg IVP Q6 PRN PRN Reason: Nausea/Vomiting Last Admin: 03/10/17 09:18 Dose: 4 mg Pantoprazole Sodium (Protonix Inj) 40 mg IVP DAILY [facility] Last Admin: 03/10/17 09:18 Dose: 40 mg Rosuvastatin Calcium (Crestor) 2.5 mg PO HS [facility] Sevelamer Carbonate (Renvela) 2,400 mg PO TID [facility] Sucralfate (Carafate Tab) 1 gm PO Q12 [facility] Results - Vital Signs Recent Vital Signs: Last Vital Signs Temp 97 F L 03/10/17 09:43 Pulse 97 H 03/10/17 09:43 Resp 20 03/10/17 09:43 BP 176/87 H 03/10/17 09:43 Pulse Ox 97 03/10/17 09:43 - Labs Result Diagrams: 03/10/17 00:38 03/10/17 00:38 Labs: Laboratory Results - last 24 hr 03/10/17 03/10/17 03/10/17 00:38 00:38 00:38 WBC 10.2 RBC 4.36 L Hgb 13.2 Hct 40.2 MCV 92.3 MCH 30.2 MCHC 32.8 L RDW 22.3 H Plt Count 239 MPV 9.7 Neut % (Auto) 86.6 H Lymph % (Auto) 6.8 L [place] % (Auto) 5.6 Eos % (Auto) 0.3 Baso % (Auto) 0.7 Neut # 8.8 H Lymph # 0.7 L [place] # 0.6 Eos # 0.0 Baso # 0.1 Neutrophils % (Manual) 84 H Band Neutrophils % 2 Lymphocytes % (Manual) 7 L Monocytes % (Manual) 7 Platelet Estimate Normal PT 11.4 INR 1.0 APTT 30 Sodium 134 Potassium 4.6 Chloride 86 L Carbon Dioxide 28 Anion Gap 25 H BUN 20 Creatinine 4.9 H Est GFR ( Amer) 16 Est GFR (Non-Af Amer) 14 Random Glucose 232 H Calcium 9.3 Total Bilirubin 1.2 AST 38 ALT 24 Alkaline Phosphatase 129 H Total Protein 8.3 Albumin 4.4 Globulin 3.8 Albumin/Globulin Ratio 1.2 Gastric Occult Blood Blood Type Antibody Screen 03/10/17 03/10/17 00:38 01:28 WBC RBC Hgb Hct MCV MCH MCHC RDW Plt Count MPV Neut % (Auto) Lymph % (Auto) [place] % (Auto) Eos % (Auto) Baso % (Auto) Neut # Lymph # [place] # Eos # Baso # Neutrophils % (Manual) Band Neutrophils % Lymphocytes % (Manual) Monocytes % (Manual) Platelet Estimate PT INR APTT Sodium Potassium Chloride Carbon Dioxide Anion Gap BUN Creatinine Est GFR ( Amer) Est GFR (Non-Af Amer) Random Glucose Calcium Total Bilirubin AST ALT Alkaline Phosphatase Total Protein Albumin Globulin Albumin/Globulin Ratio Gastric Occult Blood Positive H Blood Type O POSITIVE Antibody Screen Negative
--- NOTE | 2017-03-10 20:56 | CARD ---
APPROVED REPORT EKG Measurement Heart [id number] <Conclusion> Normal sinus rhythm Biatrial enlargement T wave abnormality, consider inferior ischemia Prolonged QT Abnormal ECG
[2017-03-10] MEDS ORDERED: Rosuvastatin Calcium 2.5 mg Tab PO SCH (22:00)
[2017-03-10] MEDS ORDERED: Insulin Detemir 100 units/ml Vial (Levemir) SC SCH (22:30)
[2017-03-10] MEDS: (Novolog) Insulin Aspart, Recombinant 100 u/ml 10 ml vial SC SCH (22:36)
--- NOTE | 2017-03-11 07:21 | CP.PCM.PN ---
Subjective - Date & Time of Evaluation Date of Evaluation: 03/11/17 Time of Evaluation: 07:20 - Subjective Subjective: PGY-[address] Chadwick's service: Pt seen and examined at bedside. Nursing reports no acute events overnight. Patient found sitting comfortably eating scrambled eggs and toast. He states his abdominal pain has improved since admission, and has not vomited overnight. Patient is for dialysis today. Objective - Vital Signs/Intake and Output Vital Signs (last 24 hours): Temp Pulse Resp BP Pulse Ox 97.4 F L 69 20 98/63 L 98 03/10/17 23:35 03/10/17 23:35 03/10/17 23:35 03/10/17 23:35 03/10/17 23:35 Intake and Output: 03/11/17 03/11/17 06:59 18:59 Intake Total 120 Balance 120 - Medications Medications: Current Medications Amlodipine Besylate (Norvasc) 10 mg PO DAILY [facility] Last Admin: 03/10/17 10:10 Dose: 10 mg Aspirin (Aspirin Chewable) 81 mg PO DAILY [facility] Clonidine HCl (Catapres) 0.3 mg PO TID [facility] Last Admin: 03/10/17 18:00 Dose: 0.3 mg Hydromorphone HCl (Dilaudid) 1 mg IVP Q4 PRN PRN Reason: Pain, moderate (4-7) Last Admin: 03/11/17 04:44 Dose: 1 mg Insulin Aspart (Novolog) 0 unit SC [facility] PRN Reason: Protocol Last Admin: 03/10/17 22:36 Dose: 3 unit Insulin Detemir (Levemir) 10 unit SC [facility] Last Admin: 03/10/17 22:35 Dose: 10 unit Lisinopril (Zestril) 10 mg PO DAILY [facility] Last Admin: 03/10/17 16:54 Dose: Not Given Ondansetron HCl (Zofran Inj) 4 mg IVP Q6 PRN PRN Reason: Nausea/Vomiting Last Admin: 03/11/17 03:16 Dose: 4 mg Pantoprazole Sodium (Protonix Inj) 40 mg IVP DAILY [facility] Last Admin: 03/10/17 09:18 Dose: 40 mg Rosuvastatin Calcium (Crestor) 2.5 mg PO [facility] Last Admin: 03/10/17 21:51 Dose: 2.5 mg Sevelamer Carbonate (Renvela) 2,400 mg PO TID [facility] Last Admin: 03/10/17 21:51 Dose: 2,400 mg Sucralfate (Carafate Tab) 1 gm PO Q12 [facility] Last Admin: 03/10/17 21:51 Dose: 1 gm - Labs Labs: 03/10/17 00:38 03/10/17 00:38 PT 11.4 SECONDS (9.7-12.2) 03/10/17 00:38 INR 1.0 03/10/17 00:38 APTT 30 SECONDS (21-34) 03/10/17 00:38 - Constitutional Appears: Non-toxic, No Acute Distress, Unkempt - Head Exam Head Exam: ATRAUMATIC, NORMAL INSPECTION - Eye Exam Eye Exam: EOMI, Normal appearance Pupil Exam: PERRL - ENT Exam ENT Exam: Mucous Membranes Moist - Respiratory Exam Respiratory Exam: Clear to Ausculation Bilateral, NORMAL BREATHING PATTERN. absent: Rales, Rhonchi, Wheezes - Cardiovascular Exam Cardiovascular Exam: REGULAR RHYTHM, +S1, +S2 - GI/Abdominal Exam GI & Abdominal Exam: Soft, Normal Bowel Sounds - Extremities Exam Additional comments: Other (left AV graft with thrill and bruit) - Back Exam Back Exam: NORMAL INSPECTION - Neurological Exam Neurological Exam: Alert, Awake, Oriented x3 - Psychiatric Exam Psychiatric exam: Normal Affect, Normal Mood - Skin Skin Exam: Dry, Normal Color, Warm Assessment and Plan - Assessment and Plan (Free Text) Plan: Gastroparesis Admit to tele Patient with poorly controlled diabetes Carafate 1gm PO Q12H Morphine 1mg IV q4H PRN (moderate) Zofran 4 mg IVP q6h PRN Protonix 40mg PO Daily IDDM Hgb A1c check in 01/2017 was 7.7 Accuchecks ACHS ISS Novolog 20u BID will add back when patient is able to tolerate PO Levemir 10 units SC HS ASA 81mg PO Daily Lisinopril 10mg PO Daily Crestor 2.5mg PO Daily HTN Lisnopril 10mg PO daily Norvasc 10 mg PO Daily Hydralazine 10mg IV Q6H PRN Clonidine 0.3 mg PO TID Monitor CKD on HD [facility] Warp Scouring Vat Tender, Dr. Quezada, help appreciated Renal diet Renvela 2400mg PO TID Nephrovite 1 tab PO QAM Prophylaxis Continue home dose of Carafate SCDs Protonix 40mg PO Daily Disposition: Patient for discharge after dialysis, provided he is tolerating diet. Ang Dozier PGY-2 All managements and orders per Dr. Chadwick
[2017-03-11] MEDS: (Novolog) Insulin Aspart, Recombinant 100 u/ml 10 ml vial SC SCH ×3 (08:30→18:05)
[2017-03-11 09:01] LABS: ALB/GLOB RATIO 1.1 (1.0-2.1); ALBUMIN 3.8 g/dL (3.5-5.0); CALCIUM 8.5 mg/dl (8.6-10.4); MAGNESIUM 1.9 mg/dL (1.6-2.3)
[2017-03-11 09:12] LABS: BASO # 0.1 K/uL (0.0-0.2); EOS # 0.3 K/uL (0.0-0.7); HEMOGLOBIN 12.8 g/dL (12.0-18.0); MEAN PLATELET VOLUME 10.3 fL (7.2-11.7)
[2017-03-11 09:17] LABS: BASO % 0.5 % (0.0-2.0); EOS % 2.5 % (0.0-4.0); LYMPH # 1.8 K/uL (1.0-4.3); LYMPH % 17.7 % (20.0-40.0); MEAN CELL VOLUME 91.6 fL (80.0-94.0); MEAN CORPUSCULAR HEMOGLOBIN 30.5 pg (27.0-31.0); MEAN CORPUSCULAR HGB CONC 33.3 g/dL (33.0-37.0); MONO # 1.2 K/uL (0.0-0.8); MONO % 11.9 % (0.0-10.0); NEUT # 6.7 K/uL (1.8-7.0); NEUT % 67.4 % (50.0-75.0); NRBC % 0.4 % (0.0-2.0); RBC 4.18 Mil/uL (4.40-5.90); RED CELL DISTRIBUTION WIDTH 21.7 % (11.5-14.5); WHITE BLOOD COUNT 9.9 K/uL (4.8-10.8)
[2017-03-11] MEDS ORDERED: Pantoprazole 40 mg EC Tab PO SCH (10:00)
--- NOTE | 2017-03-11 15:44 | CP.PCM.PN ---
Subjective - Date & Time of Evaluation Date of Evaluation: 03/11/17 Time of Evaluation: 15:43 - Subjective Subjective: Follow up Nephrology Consultation Note Assessment: Stable recurrent nausea/vomiting, cyclic emesis syndrome, marijuana abuse, gastroparesis Diabetic chronic Kidney Disease (E11.22) Hypertensive Chronic Kidney Disease (I12.0) End stage renal disease (N18.6) dependence on hemodialysis (Z99.2) (MWF) via AVF Anemia (D64.9), Hyperphosphatemia (E83.39), Secondary Hyperparathyroidism (E21.1 ), HTN (I12.0) Plan: dialysis today as ordered. Continue with Nephrovite 1 tab/day. Hb 11+ hence no MOHINI at this time Continue with phos binders as ordered. d/c phoslo. continue with renvela. phos level 5.8 acceptable BP control with meds as ordered. on lisinopril Glycemic control, Dialysis consistent diet Further work up/management as per primary team Dose meds/antibiotics (if needed) for ESRD status. Avoid fleets enema/magnesium based laxatives. pt to abstain from marijuana Thanks for allowing me to participate in care of your patient. Please call if any Qs Dr Brenton Larsen Office: [phone] Chief Complaint; nausea/vomiting Reason for consult; ESRD, HTN HPI: Pt is a 36 y/o M with hx of ESRD on hemodialysis (MWF) via AVF, chronic anemia, hyperphosphatemia, secondary hyperparathyroidism, Diabetes Mellitus, hypertension, recurrent nausea/vomiting and multiple hospitalization for same, came back with nausea/vomitting. continue to smoke marijuana Denies chest pain, palpitation, leg swelling c/o pain upper abdomen and nausea x 1 day ROS: Constitutional Symptoms: Denies fever. No chills. No Recent Weight Changes Cardiovascular: No chest pain. There is shortness of breath. No palpitations. Pulmonary: No cough. Gastrointestinal: c/o abdominal pain now c/o nausea. c/o vomiting. Denies change in bowel habits. Denies Bleeding All other negative. Physical Examination: General Appearance: uncomfortable, in no acute respiratory distress, co- operative . Vitals reviewed and noted as below Head; Atraumatic, normocephalic ENT: no ulcers no thrush. Tongue is midline. Oropharynx: no rash or ulcers. EYES: Pupils are equal, round and reactive to light accommodation. Eye muscles and extraocular movement intact. Sclera is anicteric. Neck; supple no lymphadenopathy, no thyromegaly or bruit Lungs: Normal respiratory rate/effort. Breath sounds bilateral equal and clear Heart: Normal rate. s1s2 normal. No rub or gallop. Extremities: no edema. No varicose veins Neurological: Patient is alert, awake and oriented to person, place and time. No focal deficit. Strength bilateral appropriate and equal Skin: Warm and dry. Normal turgor. No rash. Palpitation: Normal elasticity for age Abdomen: Abdomen is soft. Bowel sounds +. There is mild epigastric abdominal tenderness, no guarding/rigidity or organomegaly Psych: limited insight and normal affect/mood MSK: no joint tenderness or swelling. Digits and nails normal, no deformity. : kidney or bladder not palpable. Access: AVF Labs/imaging reviewed. Past medical history, past surgical history, family history, social history, allergy reviewed and noted as below Family Hx: no hx of CKD. Non contributory sec HTN work up neg as renin/ioana, metanephrine and renal artery dopple Objective - Vital Signs/Intake and Output Vital Signs (last 24 hours): Temp Pulse Resp BP Pulse Ox 97.4 F L 62 15 81/48 L 100 03/11/17 12:40 03/11/17 12:40 03/11/17 12:40 03/11/17 12:40 03/11/17 12:40 Intake and Output: 03/11/17 03/11/17 06:59 18:59 Intake Total 120 Balance 120 - Medications Medications: Current Medications Amlodipine Besylate (Norvasc) 10 mg PO DAILY [facility] Last Admin: 03/11/17 09:51 Dose: Not Given Aspirin (Aspirin Chewable) 81 mg PO DAILY [facility] Last Admin: 03/11/17 09:50 Dose: Not Given Clonidine HCl (Catapres) 0.3 mg PO TID [facility] Last Admin: 03/11/17 13:31 Dose: Not Given Hydromorphone HCl (Dilaudid) 1 mg IVP Q4 PRN PRN Reason: Pain, moderate (4-7) Last Admin: 03/11/17 13:34 Dose: 1 mg Insulin Aspart (Novolog) 0 unit SC [facility] PRN Reason: Protocol Last Admin: 03/11/17 12:00 Dose: Not Given Insulin Detemir (Levemir) 10 unit SC HS [facility] Last Admin: 03/10/17 22:35 Dose: 10 unit Lisinopril (Zestril) 10 mg PO DAILY [facility] Last Admin: 03/11/17 09:52 Dose: Not Given Ondansetron HCl (Zofran Inj) 4 mg IVP Q6 PRN PRN Reason: Nausea/Vomiting Last Admin: 03/11/17 03:16 Dose: 4 mg Pantoprazole Sodium (Protonix Ec Tab) 40 mg PO DAILY [facility] Last Admin: 03/11/17 09:53 Dose: Not Given Rosuvastatin Calcium (Crestor) 2.5 mg PO [facility] Last Admin: 03/10/17 21:51 Dose: 2.5 mg Sevelamer Carbonate (Renvela) 2,400 mg PO TID [facility] Last Admin: 03/11/17 13:30 Dose: 2,400 mg Sucralfate (Carafate Tab) 1 gm PO Q12 [facility] Last Admin: 03/11/17 09:51 Dose: Not Given - Labs Labs: 03/11/17 08:20 03/11/17 08:20 PT 11.4 SECONDS (9.7-12.2) 03/10/17 00:38 INR 1.0 03/10/17 00:38 APTT 30 SECONDS (21-34) 03/10/17 00:38
[2017-03-11 16:26] VITALS: BP 153/79; PULSE 69; RESP 18; TEMP 98.5; O2SAT 99
== END 2017-03-11 18:49 | disposition home or self-care (01) | DRG 73 ==
LOC: C.ER 00:08 → C.9E 01:57 → C.6T 18:07
PROVIDERS: ADMIT Internal Medicine Pulmonary Disease; ATTEND Internal Medicine Pulmonary Disease
PROC: 5A1D70Z Performance of Urinary Filtration, Intermittent, Less than 6 Hours Per Day (ICD-10-PCS; principal; 2017-03-10)
DX: E10.43 Type 1 diabetes mellitus with diabetic autonomic (poly)neuropathy (principal); N18.6 End stage renal disease; I13.2 Hypertensive heart and chronic kidney disease with heart failure and with stage 5 chronic kidney disease, or end stage renal disease; E10.22 Type 1 diabetes mellitus with diabetic chronic kidney disease; Z68.1 Body mass index [BMI] 19.9 or less, adult; K31.84 Gastroparesis; I50.9 Heart failure, unspecified; Z79.4 Long term (current) use of insulin; Z99.2 Dependence on renal dialysis; F17.200 Nicotine dependence, unspecified, uncomplicated; D64.9 Anemia, unspecified

== ENCOUNTER 2017-03-12 04:07 | Emergency (ER) | payer MEDICARE, MEDICAID ==
[2017-03-12 04:08] VITALS: BMI 19.5
[2017-03-12 04:32] VITALS: O2SAT 100
--- NOTE | 2017-03-12 04:34 | C.PDOC ---
History Of Present Illness pt states that he might have passed out in his kitchen about an hour ago, Not sure if he passed out.Pt is a MWF dyalisis. Had hd yesterday. No cp or palpitations.. thinks his blood pressure was low - HPI Time Seen by Provider: 03/12/17 04:34 Chief Complaint (Nursing): Trauma Past Medical History Reviewed: Historical Data, Nursing Documentation, Vital Signs Vital Signs: Last Vital Signs Temp 97.3 F L 03/12/17 05:43 Pulse 77 03/12/17 06:35 Resp 14 03/12/17 06:35 BP 125/59 L 03/12/17 06:35 Pulse Ox 100 03/12/17 06:35 - Medical History PMH: Anemia, CHF, Diabetes (type I; ), Gastritis (gastroparesis), HTN, Hypercholesterolemia, Peripheral Edema, End Stage Renal Disease, Chronic Kidney Disease Denies: HIV, Kidney Stones - [facility] Procedures (03/03/17) (11/12/16) BYPASS LEFT BRACHIAL ARTERY TO UPPER ARM VEIN, OPEN APPROACH (02/17/16) DILATION OF LEFT BASILIC VEIN, PERCUTANEOUS APPROACH (11/06/16) EXCISION OF ASCENDING COLON, ENDO, DIAGN (12/19/15) EXCISION OF DESCENDING COLON, ENDO, DIAGN (10/22/16) EXCISION OF DUODENUM, ENDO, DIAGN (03/25/16) EXCISION OF LARGE INTESTINE, ENDO, DIAGN (05/06/16) EXCISION OF MIDDLE ESOPHAGUS, ENDO, DIAGN (03/25/16) EXCISION OF STOMACH, ENDO, DIAGN (02/05/17) EXCISION OF TRANSVERSE COLON, ENDO, DIAGN (05/06/16) INSERTION OF INFUSION DEV INTO SUP VENA CAVA, PERC APPROACH (12/19/15) PERFORMANCE OF URINARY FILTRATION, MULTIPLE (10/28/16) PERFORMANCE OF URINARY FILTRATION, SINGLE (11/06/16) REPOSITION LEFT BASILIC VEIN, OPEN APPROACH (05/25/16) ULTRASONOGRAPHY OF SUPERIOR VENA CAVA, GUIDANCE (12/19/15) Family History: States: Diabetes, Hypertension - Social History Hx Tobacco Use: Yes (some days) Hx Alcohol Use: No Hx Substance Use: No - Immunization History Hx Tetanus Toxoid Vaccination: Yes Hx Influenza Vaccination: No Hx Pneumococcal Vaccination: Yes Review Of Systems Eyes: Negative for: Redness ENT: Negative for: Throat Pain Cardiovascular: Negative for: Chest Pain Respiratory: Negative for: Shortness of Breath Gastrointestinal: Positive for: Abdominal Pain. Negative for: Nausea, Vomiting Musculoskeletal: Negative for: Back Pain Skin: Negative for: Rash Neurological: Negative for: Weakness Psych: Positive for: Anxiety Physical Exam - Physical Exam Appears: Non-toxic, No Acute Distress Skin: Warm, Dry Head: Atraumatic, Normacephalic Eye(s): bilateral: Normal Inspection Oral Mucosa: Moist Neck: Supple Chest: Symmetrical Cardiovascular: Rhythm Regular Respiratory: No Rales, Rhonchi (few) Gastrointestinal/Abdominal: Soft, Tenderness (mild, chronic) Back: No CVA Tenderness Extremity: No Tenderness Extremity: Bilateral: Atraumatic Neurological/Psych: Oriented x3 Gait: With Assistance ED Course And Treatment - Laboratory Results Result Diagrams: 03/12/17 04:51 03/12/17 04:51 ECG: Interpreted By Me, Viewed By Me O2 Sat by Pulse Oximetry: 100 Pulse Ox Interpretation: Normal Reevaluation Time: 06:48 Reassessment Condition: Improved Disposition Counseled Patient/Family Regarding: Studies Performed, Diagnosis, Need For Followup - Disposition Referrals: Lucero Chadwick MD [Staff Provider] - Disposition: HOME/ ROUTINE Disposition Time: 04:34 Condition: FAIR Instructions: Hypotension (DC) Forms: [facility] (Korean) - Clinical Impression Clinical Impression: Hypotension, ESRD (end stage renal disease) on dialysis
[2017-03-12 04:57] LABS: BASO # 0.1 K/uL (0.0-0.2); BASO % 0.8 % (0.0-2.0); EOS # 0.1 K/uL (0.0-0.7); EOS % 1.4 % (0.0-4.0); HEMOGLOBIN 12.6 g/dL (12.0-18.0); LYMPH # 0.7 K/uL (1.0-4.3); LYMPH % 7.4 % (20.0-40.0); MEAN CELL VOLUME 92.5 fL (80.0-94.0); MEAN CORPUSCULAR HGB CONC 32.5 g/dL (33.0-37.0); MEAN PLATELET VOLUME 8.8 fL (7.2-11.7); MONO # 1.2 K/uL (0.0-0.8); MONO % 12.8 % (0.0-10.0); NEUT # 7.2 K/uL (1.8-7.0); NEUT % 77.6 % (50.0-75.0); NRBC % 0.2 % (0.0-2.0); PLATELET COUNT 241 K/uL (130-400); RBC 4.19 Mil/uL (4.40-5.90); RED CELL DISTRIBUTION WIDTH 20.8 % (11.5-14.5); WHITE BLOOD COUNT 9.3 K/uL (4.8-10.8)
[2017-03-12 05:12] LABS: ALB/GLOB RATIO 1.1 (1.0-2.1); ALBUMIN 3.9 g/dL (3.5-5.0); CALCIUM 8.9 mg/dl (8.6-10.4)
--- NOTE | 2017-03-12 06:00 | CT ---
EXAM: CT Head Without Intravenous Contrast CLINICAL HISTORY: 36 years old, male; Pain; Headache and other: Fall; Patient HX: 02-12-17 images not avalible, and report faxed already; Additional info: Syncope, fall TECHNIQUE: Axial computed tomography images of the head/brain without intravenous contrast. All CT scans at this facility use one or more dose reduction techniques, viz.: automated exposure control; ma/kV adjustment per patient size (including targeted exams where dose is matched to indication; i.e. head); or iterative reconstruction technique. 901 images are submitted. 3-D MIP reconstruction images are submitted. Coronal and sagittal reformatted images were created and reviewed. COMPARISON: No relevant prior studies available. FINDINGS: Brain: Mild cerebral and cerebellar volume loss. Minimal hypodensity is seen in the periventricular cerebral white matter. Bilateral eye lenses are not well seen. Correlation with patient's ophthalmic history is recommended. No hemorrhage. Ventricles: Unremarkable. No ventriculomegaly. Bones/joints: Unremarkable. No acute fracture. Soft tissues: Unremarkable. Sinuses: Minimal patchy sinus disease involving the ethmoid sinuses. Mastoid air cells: Unremarkable. No mastoid effusion. IMPRESSION: 1.No evidence of intracranial hemorrhage, midline shift or mass effect is noted.
[2017-03-12 07:05] LABS: BANDS 4 % (0-2); EOSINOPHIL 3 % (0-4); LYMPHOCYTE 7 % (20-40); MONOCYTE 13 % (0-10); NEUTROPHIL 69 % (50-75); NUCLEATED RED BLOOD CELL 1 % (0-0); PLATELET ESTIMATE NORMAL (NORMAL); REACTIVE LYMPHOCYTES 4 % (0-0); TOTAL CELLS COUNTED 100
[2017-03-12 09:53] VITALS: BP 106/69; PULSE 78; RESP 20; TEMP 98.5
--- NOTE | 2017-03-14 22:55 | CARD ---
APPROVED REPORT EKG Measurement Heart [id number] <Conclusion> Normal sinus rhythm Nonspecific T wave abnormality Prolonged QT Abnormal ECG
== END 2017-03-12 09:53 | disposition home or self-care (01) ==
LOC: C.ER 04:07
DX: I95.9 Hypotension, unspecified (principal); N18.6 End stage renal disease; I12.0 Hypertensive chronic kidney disease with stage 5 chronic kidney disease or end stage renal disease; Z99.2 Dependence on renal dialysis; I50.9 Heart failure, unspecified; E78.00 Pure hypercholesterolemia, unspecified; F17.210 Nicotine dependence, cigarettes, uncomplicated

== ENCOUNTER 2017-03-19 15:42 | Emergency (ER) | payer MEDICARE, MEDICAID ==
[2017-03-19 15:42] VITALS: BMI 19.5
[2017-03-19] MEDS ORDERED: Sodium Chloride 0.9% 1,000 ML IV ONE ×2 (16:01→17:04)
--- NOTE | 2017-03-19 16:12 | C.PDOC ---
History Of Present Illness 36 y/o male presents to ED with complaints of "belly pain and vomiting today". 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 Pt is non compliant with reglan 3 times a day. Pt sates he has Zofran 4mg at home for nausea and vomiting, but does not know how to use it. Pt also states he does dialysis on Tuesday's, Tuesday's and Tuesday's. Denies any other complaints. Time Seen by Provider: 03/19/17 15:57 Chief Complaint (Nursing): Abdominal Pain History Per: Patient History/Exam Limitations: no limitations Onset/Duration Of Symptoms: Hrs Current Symptoms Are (Timing): Still Present Radiation Of Pain To:: None Associated Symptoms: Vomiting. denies: Fever, Diarrhea, Urinary Symptoms Exacerbating Factors: None Alleviating Factors: None Recent travel outside of the [place]: No Past Medical History Reviewed: Historical Data, Nursing Documentation, Vital Signs Vital Signs: Last Vital Signs Temp 98 F 03/19/17 20:04 Pulse 92 H 03/19/17 20:04 Resp 16 03/19/17 20:04 BP 140/90 03/19/17 20:04 Pulse Ox 98 03/19/17 20:04 - Medical History PMH: Anemia, CHF, Diabetes (type I; ), Gastritis (gastroparesis), HTN, Hypercholesterolemia, Peripheral Edema, End Stage Renal Disease, Chronic Kidney Disease - [facility] Procedures (03/10/17) (11/12/16) BYPASS LEFT BRACHIAL ARTERY TO UPPER ARM VEIN, OPEN APPROACH (02/17/16) DILATION OF LEFT BASILIC VEIN, PERCUTANEOUS APPROACH (11/06/16) EXCISION OF ASCENDING COLON, ENDO, DIAGN (12/19/15) EXCISION OF DESCENDING COLON, ENDO, DIAGN (10/22/16) EXCISION OF DUODENUM, ENDO, DIAGN (03/25/16) EXCISION OF LARGE INTESTINE, ENDO, DIAGN (05/06/16) EXCISION OF MIDDLE ESOPHAGUS, ENDO, DIAGN (03/25/16) EXCISION OF STOMACH, ENDO, DIAGN (02/05/17) EXCISION OF TRANSVERSE COLON, ENDO, DIAGN (05/06/16) INSERTION OF INFUSION DEV INTO SUP VENA CAVA, PERC APPROACH (12/19/15) PERFORMANCE OF URINARY FILTRATION, MULTIPLE (10/28/16) PERFORMANCE OF URINARY FILTRATION, SINGLE (11/06/16) REPOSITION LEFT BASILIC VEIN, OPEN APPROACH (05/25/16) ULTRASONOGRAPHY OF SUPERIOR VENA CAVA, GUIDANCE (12/19/15) Family History: States: Unknown Family Hx, Diabetes, Hypertension - Social History Hx Tobacco Use: Yes (some days) Hx Alcohol Use: No Hx Substance Use: No - Immunization History Hx Tetanus Toxoid Vaccination: Yes Hx Influenza Vaccination: Yes Hx Pneumococcal Vaccination: Yes Review Of Systems Constitutional: Negative for: Fever, Chills Cardiovascular: Negative for: Chest Pain, Palpitations Respiratory: Negative for: Shortness of Breath Gastrointestinal: Positive for: Vomiting, Abdominal Pain. Negative for: Diarrhea Neurological: Negative for: Weakness, Numbness Physical Exam - Physical Exam Appears: Well, Non-toxic, No Acute Distress Skin: Normal Color, Warm, Dry Head: Atraumatic, Normacephalic Eye(s): bilateral: Normal Inspection Oral Mucosa: Moist Neck: Supple Chest: Symmetrical, No Tenderness Cardiovascular: Rhythm Regular Respiratory: Normal Breath Sounds, No Decreased Breath Sounds, No Rales, No Rhonchi, No Wheezing Gastrointestinal/Abdominal: Soft, No Tenderness, Other (Moderate abdominal pain) Extremity: No Pedal Edema, Other (AVF left forearm ) Neurological/Psych: Oriented x3, Normal Speech, Normal Cognition ED Course And Treatment - Laboratory Results Result Diagrams: 03/19/17 16:25 03/19/17 16:25 Lab Interpretation: Abnormal (baseline for this HD pt. no urine collected- did not provide) O2 Sat by Pulse Oximetry: 100 (RA) Pulse Ox Interpretation: Normal - Radiology CXR: Interpreted by Me CXR Interpretation: Yes: No Acute Disease - Other Rad X-Ray - Obstructive Series X-Ray: Viewed By Me Interpretation: IMPRESSION: No acute cardiopulmonary disease. No evidence of acute mechanical bowel obstruction. abd x 2 X-Ray: Interpreted by Me (+FOS no obst/FA) Progress Note: morphine, zofran, pepcid, minimal IVF Reevaluation Time: 18:04 Reassessment Condition: Improved - Physician Consult Information Outcome Of Conversation: d/w Dr. Benjamin @ 1600 and 1800, ok to d/c home. Medical Decision Making Medical Decision Making: Ordered blood work, X-Ray of obstructive series, and urinalysis. Administered IV fluids. constipation mild pancreatitis- prob from vomiting multiple prior CT abd, last 01/13/17, no pancreatic issues. Defer re-scan for typical presentation Cyclical vomiting (improved with hot showers) vs Cannabis induced, vs constipation/ slow intestinal motility Miralax as pt cannot take Mag Citrate due to HD Continue Regalan w meals to improve intestinal motility Has Zofran @ home- instructed to take ODT PRN Disposition Doctor Will See Patient In The: Office Counseled Patient/Family Regarding: Studies Performed, Diagnosis - Disposition Referrals: Lucero Benjamin MD [Staff Provider] - Disposition: HOME/ ROUTINE Disposition Time: 18:08 Condition: GOOD Additional Instructions: Continue Reglan 10 mg three times a day with your meals to promote intestinal motility Zofran ODT 4 mg dissoloves in the mouth for treating nausea/vomiting Drink a laxative (like Lactulose or Miralax) to assist your constipation. Prescriptions: Ondansetron ODT [Zofran ODT] 4 mg PO Q6H PRN #6 odt PRN Reason: Nausea/Vomiting Instructions: Constipation (ED), Acute Nausea and Vomiting (ED) Forms: [employer] (Italian) - Clinical Impression Clinical Impression: Gastroparesis due to DM, ESRD (end stage renal disease) on dialysis, Cyclical vomiting - Scribe Statement The provider has reviewed the documentation as recorded by the Raquelibbrenden Lockwood All medical record entries made by the Raquelibbrenden were at my direction and personally dictated by me. I have reviewed the chart and agree that the record accurately reflects my personal performance of the history, physical exam, medical decision making, and the department course for this patient. I have also personally directed, reviewed, and agree with the discharge instructions and disposition.
[2017-03-19 16:28] LABS: BASO # 0.1 K/uL (0.0-0.2); BASO % 1.1 % (0.0-2.0); EOS # 0.1 K/uL (0.0-0.7); EOS % 0.6 % (0.0-4.0); LYMPH # 1.5 K/uL (1.0-4.3); LYMPH % 13.1 % (20.0-40.0); MEAN CELL VOLUME 91.1 fL (80.0-94.0); MEAN CORPUSCULAR HEMOGLOBIN 30.1 pg (27.0-31.0); MEAN CORPUSCULAR HGB CONC 33.1 g/dL (33.0-37.0); MEAN PLATELET VOLUME 9.8 fL (7.2-11.7); MONO # 1.2 K/uL (0.0-0.8); MONO % 10.8 % (0.0-10.0); NEUT # 8.5 K/uL (1.8-7.0); NEUT % 74.4 % (50.0-75.0); NRBC % 0.1 % (0.0-2.0); RBC 5.01 Mil/uL (4.40-5.90); RED CELL DISTRIBUTION WIDTH 20.2 % (11.5-14.5); WHITE BLOOD COUNT 11.4 K/uL (4.8-10.8)
[2017-03-19 16:36] LABS: HEMOGLOBIN 15.1 g/dL (12.0-18.0)
[2017-03-19 16:47] LABS: ALBUMIN 3.9 g/dL (3.5-5.0); CALCIUM 8.9 mg/dl (8.6-10.4)
--- NOTE | 2017-03-19 16:49 | RAD ---
PROCEDURE: Radiographs of the chest and abdomen (obstructive series) HISTORY: abd pain COMPARISON: No prior. TECHNIQUE: AP radiograph of the chest, with upright and supine radiographs of the abdomen. FINDINGS: CHEST: Lungs: Clear. Cardiovascular: Normal size heart. No pulmonary vascular congestion. Pleura: No pleural fluid. No pneumothorax. Other findings: None. ABDOMEN AND PELVIS: Bowel: Unremarkable bowel gas pattern. No evidence of mechanical obstruction. Free air: None. Bones: . . Mild degenerative spondylosis in the lower thoracic region. . Other findings: None. IMPRESSION: No acute cardiopulmonary disease. No evidence of acute mechanical bowel obstruction.
[2017-03-19] MEDS ORDERED: Morphine 4 MG/ML VIAL ONE (16:58)
[2017-03-19] MEDS ORDERED: Sodium Chloride 0.9% 1,000 ML ONE (16:58)
[2017-03-19] MEDS ORDERED: Sodium Chloride 0.9% 250 ML IV ONE (17:06)
[2017-03-19 20:06] VITALS: BP 140/90; PULSE 92; RESP 16; TEMP 98
[2017-03-19 22:28] VITALS: O2SAT 100
== END 2017-03-19 20:00 | disposition home or self-care (01) ==
LOC: C.ER 15:42
DX: E10.43 Type 1 diabetes mellitus with diabetic autonomic (poly)neuropathy (principal); K31.84 Gastroparesis; I12.0 Hypertensive chronic kidney disease with stage 5 chronic kidney disease or end stage renal disease; E10.22 Type 1 diabetes mellitus with diabetic chronic kidney disease; N18.6 End stage renal disease; Z99.2 Dependence on renal dialysis; G43.A0 Cyclical vomiting, in migraine, not intractable
CPT/HCPCS: 74022; 80053; 83690; 85025; 96374; 96375; 99285; J2270; J2405; J7040

== ENCOUNTER 2017-04-11 02:07 | Emergency (ER) | payer MEDICARE, MEDICAID ==
[2017-04-11 02:07] VITALS: BMI 19.5
[2017-04-11] MEDS ORDERED: Morphine 4 MG/ML VIAL IV ONE (03:07)
[2017-04-11 03:32] LABS: BASO # 0.1 K/uL (0.0-0.2); EOS # 0.3 K/uL (0.0-0.7); EOS % 2.4 % (0.0-4.0); HEMOGLOBIN 13.8 g/dL (12.0-18.0); LYMPH # 0.8 K/uL (1.0-4.3); LYMPH % 6.5 % (20.0-40.0); MEAN CELL VOLUME 87.5 fL (80.0-94.0); MEAN CORPUSCULAR HEMOGLOBIN 28.3 pg (27.0-31.0); MEAN CORPUSCULAR HGB CONC 32.4 g/dL (33.0-37.0); MEAN PLATELET VOLUME 9.7 fL (7.2-11.7); MONO # 0.7 K/uL (0.0-0.8); MONO % 5.7 % (0.0-10.0); NEUT % 84.4 % (50.0-75.0); PLATELET COUNT 245 K/uL (130-400); RBC 4.87 Mil/uL (4.40-5.90); RED CELL DISTRIBUTION WIDTH 17.8 % (11.5-14.5); WHITE BLOOD COUNT 11.9 K/uL (4.8-10.8)
--- NOTE | 2017-04-11 03:32 | C.PDOC ---
History Of Present Illness 36 year old male with hx of ESRD, gastroparesis, presents to the ED for evaluation of several episodes of vomiting since yesterday. He states that he has been unable to tolerate his PO medications including his Zofran and BP meds. He also complains of abdominal pain associated with the vomiting. No fever , trauma, diarrhea, or urinary sxs. He has had several visits to the ED for the same complaint.Pt is due for dialysis today Time Seen by Provider: 04/11/17 02:39 Chief Complaint (Nursing): Abdominal Pain History Per: Patient History/Exam Limitations: no limitations Onset/Duration Of Symptoms: Days Current Symptoms Are (Timing): Still Present Location Of Pain/Discomfort: Diffuse Associated Symptoms: denies: Fever, Diarrhea, Urinary Symptoms Recent travel outside of the [place]: No Past Medical History Reviewed: Historical Data, Nursing Documentation, Vital Signs Vital Signs: Last Vital Signs Temp 98.5 F 04/11/17 02:22 Pulse 83 04/11/17 06:26 Resp 18 04/11/17 06:26 BP 157/81 H 04/11/17 06:26 Pulse Ox 98 04/11/17 06:26 - Medical History PMH: Anemia, CHF, Diabetes (type I; ), Gastritis (gastroparesis), HTN, Hypercholesterolemia, Peripheral Edema, End Stage Renal Disease, Chronic Kidney Disease Denies: HIV, Kidney Stones - [facility] Procedures (03/25/17) (11/12/16) BYPASS LEFT BRACHIAL ARTERY TO UPPER ARM VEIN, OPEN APPROACH (02/17/16) DILATION OF LEFT BASILIC VEIN, PERCUTANEOUS APPROACH (11/06/16) EXCISION OF ASCENDING COLON, ENDO, DIAGN (12/19/15) EXCISION OF DESCENDING COLON, ENDO, DIAGN (10/22/16) EXCISION OF DUODENUM, ENDO, DIAGN (03/25/16) EXCISION OF LARGE INTESTINE, ENDO, DIAGN (05/06/16) EXCISION OF MIDDLE ESOPHAGUS, ENDO, DIAGN (03/25/16) EXCISION OF STOMACH, ENDO, DIAGN (02/05/17) EXCISION OF TRANSVERSE COLON, ENDO, DIAGN (05/06/16) INSERTION OF INFUSION DEV INTO SUP VENA CAVA, PERC APPROACH (12/19/15) PERFORMANCE OF URINARY FILTRATION, MULTIPLE (10/28/16) PERFORMANCE OF URINARY FILTRATION, SINGLE (11/06/16) REPOSITION LEFT BASILIC VEIN, OPEN APPROACH (05/25/16) ULTRASONOGRAPHY OF SUPERIOR VENA CAVA, GUIDANCE (12/19/15) Family History: States: Unknown Family Hx, Diabetes, Hypertension - Social History Hx Tobacco Use: Yes (some days) Hx Alcohol Use: No Hx Substance Use: Yes - Immunization History Hx Tetanus Toxoid Vaccination: Yes Hx Influenza Vaccination: Yes Hx Pneumococcal Vaccination: Yes Review Of Systems Constitutional: Negative for: Fever, Chills ENT: Negative for: Ear Pain, Throat Pain Cardiovascular: Negative for: Chest Pain Respiratory: Negative for: Cough, Shortness of Breath Gastrointestinal: Positive for: Nausea, Vomiting, Abdominal Pain. Negative for : Diarrhea Genitourinary: Negative for: Dysuria, Frequency Skin: Negative for: Rash Neurological: Negative for: Headache Physical Exam - Physical Exam Appears: Non-toxic, No Acute Distress, Other (Hypertensive ) Skin: Normal Color, Warm, Dry Head: Atraumatic, Normacephalic Eye(s): bilateral: Normal Inspection, PERRL, EOMI Oral Mucosa: Moist Throat: Normal Neck: Normal, Normal ROM, Supple Chest: Symmetrical Cardiovascular: Rhythm Regular (Rate Regular ) Respiratory: Normal Breath Sounds, No Rales, No Rhonchi, No Wheezing Gastrointestinal/Abdominal: Soft, Tenderness (mild diffuse tenderness), No Guarding, No Rebound Back: Normal Inspection Extremity: Normal ROM, No Pedal Edema, No Deformity Extremity: Bilateral: Atraumatic Neurological/Psych: Oriented x3, Normal Speech ED Course And Treatment - Laboratory Results Result Diagrams: 04/11/17 03:29 04/11/17 03:29 O2 Sat by Pulse Oximetry: 99 Pulse Ox Interpretation: Normal Progress Note: Will order CMP, lipase, CBC. IV Reglan, morphine, and Zofran administered. Al labs were reviewed, pt observed sleeping in the ER comfortably. labetalol IV x 2 doses ordered, clonidine 0.2 mg PO ordered. Pt's dialysis center- [facility] called the ER and asked to be called for transport when pt is ready for dialysis transport. Pt remains stable in NAD, BP improved and will be d/c to dialysis. P is awaiting [facility]are for transport Reassessment Condition: Improved Disposition Counseled Patient/Family Regarding: Diagnosis, Need For Followup - Disposition Disposition: HOME/ ROUTINE Disposition Time: 06:09 Condition: STABLE Forms: [employer] (Slovak) - Clinical Impression Clinical Impression: Gastroparesis due to DM, Nausea and vomiting, Hyperkalemia, HTN (hypertension) - Scribe Statement The provider has reviewed the documentation as recorded by the Scribe (Michael Lloyd) All medical record entries made by the Scribe were at my direction and personally dictated by me. I have reviewed the chart and agree that the record accurately reflects my personal performance of the history, physical exam, medical decision making, and the department course for this patient. I have also personally directed, reviewed, and agree with the discharge instructions and disposition.
[2017-04-11 03:59] LABS: EOSINOPHIL 1 % (0-4); LYMPHOCYTE 8 % (20-40); MONOCYTE 6 % (0-10); NEUTROPHIL 85 % (50-75); PLATELET ESTIMATE NORMAL (NORMAL); TOTAL CELLS COUNTED 100
[2017-04-11] MEDS ORDERED: Labetalol 25mg/5ml Syringe IV STA ×2 (03:59→04:55)
[2017-04-11 04:00] LABS: ALBUMIN 3.3 g/dL (3.5-5.0); CALCIUM 8.3 mg/dl (8.6-10.4)
[2017-04-11 04:08] VITALS: RESP 18
[2017-04-11] MEDS ORDERED: Labetalol 25mg/5ml Syringe ONE ×2 (04:12→04:59)
[2017-04-11 09:21] VITALS: BP 178/90; PULSE 90; TEMP 98.8; O2SAT 98
== END 2017-04-11 11:02 | disposition home or self-care (01) ==
LOC: C.ER 02:07
DX: E10.43 Type 1 diabetes mellitus with diabetic autonomic (poly)neuropathy (principal); K31.84 Gastroparesis; E87.5 Hyperkalemia; I10 Essential (primary) hypertension; R11.2 Nausea with vomiting, unspecified
CPT/HCPCS: 80053; 83690; 85025; 96374; 96375; 96376; 99285; J2270; J2405

== ENCOUNTER 2017-05-01 08:27 | Inpatient (IN) | payer MEDICARE, MEDICAID ==
[2017-05-01 08:28] VITALS: BMI 19.5
[2017-05-01] MEDS ORDERED: Dextrose 50% SYRINGE Inj (50 ml) IVP STA ×4 (08:30→10:22)
[2017-05-01] MEDS ORDERED: Dextrose 50% VIAL Inj (50 ml) IV ONE ×2 (08:40→08:47)
[2017-05-01] MEDS ORDERED: Naloxone 0.4 mg/ml Inj (Adult) ONE (08:47)
--- NOTE | 2017-05-01 08:54 | C.PDOC ---
History Of Present Illness LIMITED DUE TO CLIN COND PER EMS, FAMILY STATES FOUND PT DOING SZ LIKE ACTIVITY WHILE SITTING IN WHEELCHAIR. PT POST ICTAL ON EMS ARRIVAL, +RECUR SZ ACTIVITY ENROUTE. NO MEDS GIVEN. PER EMS, FAMILY DENIES HO DRUG USE OR ETOH ABUSE. PT WELL KNOWN TO ER, MULT PRIOR ADMISSIONS DM, cyclic emesis syndrome, marijuana abuse, gastroparesis , End stage renal disease on hemodialysis (MWF) via AVF HTN. PER EMS, RECENT MISSED HD? MWF. NO TRAUMA ON SCENE. FS 150 EN ROUTE PER EMS. ROS UTO EXAM MOD SEV DISTRESS HEENT ATRAUM PUPILS SLUGGISH, REACTIVE MMM LUNGS CTA B/L POOR EFFORT NO RETRACTION CV RRR SKIN WARM DIAPH EXT ATRAUM L AV GRAFT NEURO NO GROSS FOCAL DEF, UNCOOP FOR FOCAL EXAM DUE TO CLIN COND PSYCH NONVERBAL, APPEARS POSSIBLE INTOX NO RESPONSE TO COMMANDS Time Seen by Provider: 05/01/17 08:51 Past Medical History Vital Signs: Last Vital Signs Temp 92.8 F L 05/01/17 08:45 Pulse 85 05/01/17 11:08 Resp 14 05/01/17 11:08 BP 181/108 H 05/01/17 11:08 Pulse Ox 100 05/01/17 11:08 - Medical History PMH: Anemia, CHF, Diabetes (type I; ), Gastritis (gastroparesis), HTN, Hypercholesterolemia, Peripheral Edema, End Stage Renal Disease, Chronic Kidney Disease Denies: HIV, Kidney Stones - [facility] Procedures (04/21/17) (11/12/16) BYPASS LEFT BRACHIAL ARTERY TO UPPER ARM VEIN, OPEN APPROACH (02/17/16) DILATION OF LEFT BASILIC VEIN, PERCUTANEOUS APPROACH (11/06/16) EXCISION OF ASCENDING COLON, ENDO, DIAGN (12/19/15) EXCISION OF DESCENDING COLON, ENDO, DIAGN (10/22/16) EXCISION OF DUODENUM, ENDO, DIAGN (03/25/16) EXCISION OF LARGE INTESTINE, ENDO, DIAGN (05/06/16) EXCISION OF MIDDLE ESOPHAGUS, ENDO, DIAGN (03/25/16) EXCISION OF STOMACH, ENDO, DIAGN (02/05/17) EXCISION OF TRANSVERSE COLON, ENDO, DIAGN (05/06/16) INSERTION OF INFUSION DEV INTO SUP VENA CAVA, PERC APPROACH (12/19/15) PERFORMANCE OF URINARY FILTRATION, MULTIPLE (10/28/16) PERFORMANCE OF URINARY FILTRATION, SINGLE (11/06/16) REPOSITION LEFT BASILIC VEIN, OPEN APPROACH (05/25/16) ULTRASONOGRAPHY OF SUPERIOR VENA CAVA, GUIDANCE (12/19/15) Family History: States: Unknown Family Hx, Diabetes, Hypertension - Social History Hx Tobacco Use: Yes (some days) Hx Alcohol Use: No Hx Substance Use: Yes (marijuana use) - Immunization History Hx Tetanus Toxoid Vaccination: Yes Hx Influenza Vaccination: Yes Hx Pneumococcal Vaccination: Yes Review Of Systems Review Of Systems: ROS cannot be obtained secondary to pt's inabilty to answer questions. Physical Exam - Physical Exam Appears: Non-toxic, In Acute Distress (MOD SEV DISTRESS ) Skin: Warm, Diaphoretic, No Rash Head: Normacephalic Eye(s): bilateral: Other (PUPILS SLUGGISH, REACTIVE) Nose: Normal Oral Mucosa: Moist Lips: Normal Appearing Neck: Normal ROM Chest: Symmetrical Cardiovascular: Rhythm Regular, No Murmur Respiratory: No Decreased Breath Sounds, No Accessory Muscle Use, Other (CTA B/ L POOR EFFORT NO RETRACTION) Gastrointestinal/Abdominal: Soft, No Tenderness Extremity: Other (ATRAUM L AV GRAFT) Neurological/Psych: No Response To Commands ( NONVERBAL, APPEARS POSSIBLE INTOX ), Other (NO GROSS FOCAL DEF, UNCOOP FOR FOCAL EXAM DUE TO CLIN COND) ED Course And Treatment - Laboratory Results Result Diagrams: 05/01/17 09:31 05/01/17 09:31 - Radiology CXR: Interpreted by Me CXR Interpretation: Yes: No Acute Disease Progress - Re-Evaluation Re-evaluation Note: 05/01/17 08:30 +TRANSIENT TONIC CLONIC SZ B/L UE LASTING <5 SECS. MULT REPEAT FS IN ED <20. 05/01/17 09:06 S/P D50X 2, IMPROVED MENTATION. FOCAL EXAM, VERBAL APPROPRIATE INTERACTION. VOMITING. HYPOTHERMIA 05/01/17 09:39 vomiting reSOLVED, NARD VSS FS 101 05/01/17 10:15 RECUR SZ, RECUR HYPOGLY FS <20. D50 X 2 GIVEN 05/01/17 10:47 D/W DR COMBS C/F ICU AWARE OF ER FINDINGS. REQUESTING CORTISOL, TSH STUDIES AND COMPLETE MED LIST PRIOR TO DISPO 05/01/17 10:52 PER RN, MEDICATIONS BROUGHT IN BY EMS AND NO DM MEDS PRESENT 05/01/17 11:23 D/W DR CANTU PMD. STATES PT TAKES LEVAMIR AND NOVALOG. REQUESTS BROAD ABX, WILL ADMIT - Data Reviewed Data Reviewed: Lab, Diagnostic imaging, EKG, Old records - Critical Care Citical Care: Excluding Proc Time Critical Care Time: 120 minutes - Continuity of Care Discussed patient case with:: Patient, PMD Discussed pt. case with professional housing consultant/specialty: Pulmonary/Crit. Care Disposition Counseled Patient/Family Regarding: Studies Performed, Diagnosis - Disposition Disposition: HOSPITALIZED Disposition Time: 11:27 Condition: SERIOUS - POA Present On Arrival: Poor Glycemic Control - Clinical Impression Clinical Impression: Hypoglycemia, Uncontrolled hypertension, Nausea and vomiting, Hypothermia Decision To Admit - Pt Status Changed To: Hospital Disposition Of: Inpatient - Admit Certification Admit to Inpatient:: After my assessment, the patient will require hospitalization for at least two midnights. This is because of the severity of symptoms shown, intensity of services needed, and/or the medical risk in this patient being treated as an outpatient. - InPatient: Physician Admission Certification:: SEE NOTE - . Bed Request Type: Telemetry Admitting Physician: Lucero Cantu Patient Diagnosis: Nausea and vomiting, Hypothermia, Hypoglycemia, Uncontrolled hypertension, Seizure PROCEDURES - EJ/Peripheral Line Time Out Performed: Yes Skin Cleansed in Sterile Fashion: Yes Size: 18 IV Secured and Dressing Applied: Yes Patient Tolerated Procedure: Well Additional comments: EMERGENT NEED FOR IV ACCESS DUE TO SEVERE HYPOGLYCEMIA
[2017-05-01 09:24] LABS: ABG ALLEN TEST POS; ARTERIAL BLOOD GAS HCO3 31.4 mmol/L (21-28); ARTERIAL BLOOD GAS O2 SAT 96.4 % (95-98); ARTERIAL BLOOD GAS PCO2 62 mm/Hg (35-45); ARTERIAL BLOOD GAS PH 7.37 (7.35-7.45); ARTERIAL BLOOD GAS PO2 130 mm/Hg (80-100); ARTERIAL BLOOD GAS TCO2 37.7 mmol/L (22-28)
[2017-05-01 09:34] LABS: BASO # 0.1 K/uL (0.0-0.2); EOS # 0.3 K/uL (0.0-0.7); EOS % 4.2 % (0.0-4.0); HEMOGLOBIN 11.2 g/dL (12.0-18.0); LYMPH % 12.9 % (20.0-40.0); MEAN CELL VOLUME 87.2 fL (80.0-94.0); MEAN CORPUSCULAR HEMOGLOBIN 28.4 pg (27.0-31.0); MEAN CORPUSCULAR HGB CONC 32.6 g/dL (33.0-37.0); MONO # 0.8 K/uL (0.0-0.8); MONO % 10.3 % (0.0-10.0); NEUT # 5.7 K/uL (1.8-7.0); NEUT % 71.6 % (50.0-75.0); RBC 3.96 Mil/uL (4.40-5.90); RED CELL DISTRIBUTION WIDTH 17.6 % (11.5-14.5); WHITE BLOOD COUNT 7.9 K/uL (4.8-10.8)
[2017-05-01 09:48] LABS: INR 0.9; PROTHROMBIN TIME 10.1 SECONDS (9.7-12.2)
[2017-05-01 09:53] LABS: ALBUMIN 3.8 g/dL (3.5-5.0); ALT/SGPT 30 U/L (21-72); AST/SGOT 27 U/L (17-59); BLOOD UREA NITROGEN 54 mg/dL (9-20); CALCIUM 8.5 mg/dl (8.6-10.4); GFR AFRICAN-AMERICAN 11; GFR NON-AFRICAN AMERICAN 9; LIPASE 89 U/L (23-300)
[2017-05-01] MEDS ORDERED: Labetalol 25mg/5ml Syringe IVP STA (10:05)
[2017-05-01] MEDS ORDERED: Labetalol 25mg/5ml Syringe ONE (10:38)
--- NOTE | 2017-05-01 10:40 | RAD ---
PROCEDURE: CHEST RADIOGRAPH, 1 VIEW HISTORY: AMS COMPARISON: 03/03/2017 03/03/2017 FINDINGS: LUNGS: Clear. PLEURA: No pneumothorax or pleural fluid seen. CARDIOVASCULAR: Normal. OSSEOUS STRUCTURES: No significant abnormalities. VISUALIZED UPPER ABDOMEN: Normal. OTHER FINDINGS: None. IMPRESSION: No active disease.
[2017-05-01] MEDS ORDERED: Glucagon Recombinant 1 mg Inj IV STA (11:03)
[2017-05-01 11:24] LABS: SQUAMOUS EPITHIAL < 1 /hpf (0-5); URINE BACTERIA RARE (<OCC); URINE BILIRUBIN NEGATIVE (NEGATIVE); URINE BLOOD NEGATIVE (NEGATIVE); URINE CLARITY Hazy (Clear); URINE COLOR Yellow (YELLOW); URINE GLUCOSE (UA) 3+ mg/dL (Normal); URINE LEUKOCYTE ESTERASE NEG Leu/uL (Negative); URINE PROTEIN 3+ mg/dL (NEGATIVE); URINE UROBILINOGEN NORMAL mg/dL (0.2-1.0)
[2017-05-01] MEDS ORDERED: Glucagon Recombinant 1 mg Inj ONE (11:32)
[2017-05-01] MEDS ORDERED: Piperacillin/Tazobact 3.375 gm 100 ML IV STA (11:35)
[2017-05-01 11:44] LABS: BARBITURATES, UR NEGATIVE (NEGATIVE); BENZODIAZEPINES, UR NEGATIVE (NEGATIVE); OPIATES, UR NEGATIVE (NEGATIVE); PHENCYCLIDINE, UR NEGATIVE (NEGATIVE)
[2017-05-01] MEDS ORDERED: Vancomycin 1 GM 1 GM/250 ML BAG IV SCH (11:45)
[2017-05-01 12:19] LABS: FREE T4 1.05 ng/dL (0.78-2.19)
[2017-05-01] MEDS ORDERED: Piperacillin/Tazobact 3.375 gm 100 ML IVPB ONE (12:47)
--- NOTE | 2017-05-01 13:01 | CP.PCM.CON ---
History of Present Illness - History of Present Illness History of Present Illness: 36yo M. PMHx CHF, DM type 1, gastoparesis, HTN, hypercholesterolemia, ESRD on HD (MWF). patient p/w seizure activity at home, family called EMS, brought to ED found to be hypoglycemic which was refractory to D50 pushes. Admitted to ICU for further management. Review of Systems - Review of Systems Systems not reviewed;Unavailable: Altered Mental Status Past Patient History - Infectious Disease Hx of Infectious Diseases: None - Past Medical History & Family History Past Medical History?: Yes - Past Social History Smoking Status: Light Smoker < 10 Cigarettes Daily - CARDIAC Hx Congestive Heart Failure: Yes Hx Hypercholesterolemia: Yes Hx Hypertension: Yes Hx Peripheral Edema: Yes - PULMONARY Hx Respiratory Disorders: No - NEUROLOGICAL Hx Neurological Disorder: No - HEENT Hx HEENT Problems: Yes - RENAL Hx Chronic Kidney Disease: Yes Hx Kidney Stones: No - ENDOCRINE/METABOLIC Hx Endocrine Disorders: Yes Hx Diabetes Mellitus Type 2: Yes - HEMATOLOGICAL/ONCOLOGICAL Hx Anemia: Yes Hx Human Immunodeficiency Virus (HIV): No - INTEGUMENTARY Hx Dermatological Problems: No - MUSCULOSKELETAL/RHEUMATOLOGICAL Hx Musculoskeletal Disorders: No - GASTROINTESTINAL Hx Gastritis: Yes (gastroparesis) - GENITOURINARY/GYNECOLOGICAL Hx Genitourinary Disorders: No - PSYCHIATRIC Hx Substance Use: Yes (marijuana use) - SURGICAL HISTORY Hx Surgeries: Yes Hx Cataract Extraction: Yes (bilateral) Hx Vascular Access Device: Yes Other/Comment: Hx RT.PERMACATH INSERTION 12/30. 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 Hx UNDESCENDED TESTES LT. REMOVED DURING CHILDHOOD - ANESTHESIA Hx Anesthesia: Yes Hx Anesthesia Reactions: No Hx Malignant Hyperthermia: No Meds Allergies/Adverse Reactions: Allergies Allergy/AdvReac Type Severity Reaction Status Date / Time No Known Allergies Allergy Verified 04/11/17 02:26 - Medications Medications: Current Medications Dextrose (Dextrose 10% In Water) 1,000 mls @ 60 mls/hr IV .[id number] ONE Stop: 05/02/17 03:21 Last Admin: 05/01/17 11:29 Dose: 60 mls/hr Vancomycin HCl (Vancomycin 1gm In Normal Saline Addvantage) 1 gm in 250 mls @ 166.667 mls/hr IV STAT GADIEL PRN Reason: Protocol Physical Exam - Constitutional Appears: Confused - Head Exam Head Exam: ATRAUMATIC, NORMAL INSPECTION, NORMOCEPHALIC - Eye Exam Eye Exam: EOMI, Normal appearance, PERRL - ENT Exam ENT Exam: Mucous Membranes Moist, Normal Exam - Respiratory Exam Respiratory Exam: Clear to Auscultation Bilateral, NORMAL BREATHING PATTERN - Cardiovascular Exam Cardiovascular Exam: REGULAR RHYTHM - GI/Abdominal Exam GI & Abdominal Exam: Normal Bowel Sounds, Soft. absent: Tenderness - Neurological Exam Neurological exam: Alert, Altered Additional comments: lethargic Results - Vital Signs Recent Vital Signs: Last Vital Signs Temp 92.8 F L 05/01/17 08:45 Pulse 85 05/01/17 11:08 Resp 14 05/01/17 11:08 BP 181/108 H 05/01/17 11:08 Pulse Ox 100 05/01/17 11:08 - Labs Result Diagrams: 05/01/17 09:31 05/01/17 09:31 Labs: Laboratory Results - last 24 hr 05/01/17 05/01/17 05/01/17 09:09 09:19 09:31 WBC 7.9 RBC 3.96 L Hgb 11.2 L D Hct 34.5 L MCV 87.2 MCH 28.4 MCHC 32.6 L RDW 17.6 H Plt Count 253 MPV 9.0 Neut % (Auto) 71.6 Lymph % (Auto) 12.9 L [place] % (Auto) 10.3 H Eos % (Auto) 4.2 H Baso % (Auto) 1.0 Neut # (Auto) 5.7 Lymph # (Auto) 1.0 [place] # (Auto) 0.8 Eos # (Auto) 0.3 Baso # (Auto) 0.1 PT INR APTT Puncture Site Rra pCO2 62 H pO2 130 H HCO3 31.4 H ABG pH 7.37 ABG Total CO2 37.7 H ABG O2 Saturation 96.4 ABG Base Excess 8.2 H Isaac Test Pos ABG Potassium 3.3 L Sodium 138.0 Chloride 98.0 Glucose 85 Lactate 1.7 Liter Flow 3.0 Potassium Carbon Dioxide Anion Gap BUN Creatinine Est GFR ( Amer) Est GFR (Non-Af Amer) POC Glucose (mg/dL) 101 Random Glucose Calcium Total Bilirubin AST ALT Alkaline Phosphatase Troponin I Total Protein Albumin Globulin Albumin/Globulin Ratio Lipase Free T4 TSH 3rd Generation Arterial Blood Potassium 3.3 L Urine Color Urine Clarity Urine pH Ur Specific [place] Urine Protein Urine Glucose (UA) Urine Ketones Urine Blood Urine Nitrate Urine Bilirubin Urine Urobilinogen Ur Leukocyte Esterase Urine WBC (Auto) Urine RBC (Auto) Ur Squamous Epith Cells Urine Bacteria Hyaline Casts Urine Opiates Screen Urine Methadone Screen Ur Barbiturates Screen Ur Phencyclidine Scrn Ur Amphetamines Screen U Benzodiazepines Scrn U Oth Cocaine Metabols U Cannabinoids Screen Alcohol, Quantitative 05/01/17 05/01/17 05/01/17 09:31 09:31 10:15 WBC RBC Hgb Hct MCV MCH MCHC RDW Plt Count MPV Neut % (Auto) Lymph % (Auto) [place] % (Auto) Eos % (Auto) Baso % (Auto) Neut # (Auto) Lymph # (Auto) [place] # (Auto) Eos # (Auto) Baso # (Auto) PT 10.1 INR 0.9 APTT 30 Puncture Site pCO2 pO2 HCO3 ABG pH ABG Total CO2 ABG O2 Saturation ABG Base Excess Isaac Test ABG Potassium Sodium 141 Chloride 94 L Glucose Lactate Liter Flow Potassium 3.9 Carbon Dioxide 32 H Anion Gap 19 BUN 54 H Creatinine 6.9 H Est GFR ( Amer) 11 Est GFR (Non-Af Amer) 9 POC Glucose (mg/dL) < 20 L* Random Glucose 70 L Calcium 8.5 L Total Bilirubin 0.6 AST 27 ALT 30 Alkaline Phosphatase 107 Troponin I 0.0770 Total Protein 7.7 Albumin 3.8 Globulin 4.0 H Albumin/Globulin Ratio 1.0 Lipase 89 Free T4 TSH 3rd Generation Arterial Blood Potassium Urine Color Urine Clarity Urine pH Ur Specific [place] Urine Protein Urine Glucose (UA) Urine Ketones Urine Blood Urine Nitrate Urine Bilirubin Urine Urobilinogen Ur Leukocyte Esterase Urine WBC (Auto) Urine RBC (Auto) Ur Squamous Epith Cells Urine Bacteria Hyaline Casts Urine Opiates Screen Urine Methadone Screen Ur Barbiturates Screen Ur Phencyclidine Scrn Ur Amphetamines Screen U Benzodiazepines Scrn U Oth Cocaine Metabols U Cannabinoids Screen Alcohol, Quantitative < 10 05/01/17 05/01/17 05/01/17 10:41 11:09 11:09 WBC RBC Hgb Hct MCV MCH MCHC RDW Plt Count MPV Neut % (Auto) Lymph % (Auto) [place] % (Auto) Eos % (Auto) Baso % (Auto) Neut # (Auto) Lymph # (Auto) [place] # (Auto) Eos # (Auto) Baso # (Auto) PT INR APTT Puncture Site pCO2 pO2 HCO3 ABG pH ABG Total CO2 ABG O2 Saturation ABG Base Excess Isaac Test ABG Potassium Sodium Chloride Glucose Lactate Liter Flow Potassium Carbon Dioxide Anion Gap BUN Creatinine Est GFR ( Amer) Est GFR (Non-Af Amer) POC Glucose (mg/dL) 153 H Random Glucose Calcium Total Bilirubin AST ALT Alkaline Phosphatase Troponin I Total Protein Albumin Globulin Albumin/Globulin Ratio Lipase Free T4 TSH 3rd Generation Arterial Blood Potassium Urine Color Yellow Urine Clarity Hazy Urine pH 8.0 Ur Specific [place] 1.021 Urine Protein 3+ H Urine Glucose (UA) 3+ H Urine Ketones Negative Urine Blood Negative Urine Nitrate Negative Urine Bilirubin Negative Urine Urobilinogen Normal Ur Leukocyte Esterase Neg Urine WBC (Auto) 4 Urine RBC (Auto) 3 Ur Squamous Epith Cells < 1 Urine Bacteria Rare Hyaline Casts 3-5 H Urine Opiates Screen Negative Urine Methadone Screen Negative Ur Barbiturates Screen Negative Ur Phencyclidine Scrn Negative Ur Amphetamines Screen Negative U Benzodiazepines Scrn Negative U Oth Cocaine Metabols Negative U Cannabinoids Screen Positive H Alcohol, Quantitative 05/01/17 05/01/17 11:09 11:51 WBC RBC Hgb Hct MCV MCH MCHC RDW Plt Count MPV Neut % (Auto) Lymph % (Auto) [place] % (Auto) Eos % (Auto) Baso % (Auto) Neut # (Auto) Lymph # (Auto) [place] # (Auto) Eos # (Auto) Baso # (Auto) PT INR APTT Puncture Site pCO2 pO2 HCO3 ABG pH ABG Total CO2 ABG O2 Saturation ABG Base Excess Isaac Test ABG Potassium Sodium Chloride Glucose Lactate Liter Flow Potassium Carbon Dioxide Anion Gap BUN Creatinine Est GFR ( Amer) Est GFR (Non-Af Amer) POC Glucose (mg/dL) 139 H Random Glucose Calcium Total Bilirubin AST ALT Alkaline Phosphatase Troponin I Total Protein Albumin Globulin Albumin/Globulin Ratio Lipase Free T4 1.05 TSH 3rd Generation 0.99 Arterial Blood Potassium Urine Color Urine Clarity Urine pH Ur Specific [place] Urine Protein Urine Glucose (UA) Urine Ketones Urine Blood Urine Nitrate Urine Bilirubin Urine Urobilinogen Ur Leukocyte Esterase Urine WBC (Auto) Urine RBC (Auto) Ur Squamous Epith Cells Urine Bacteria Hyaline Casts Urine Opiates Screen Urine Methadone Screen Ur Barbiturates Screen Ur Phencyclidine Scrn Ur Amphetamines Screen U Benzodiazepines Scrn U Oth Cocaine Metabols U Cannabinoids Screen Alcohol, Quantitative Assessment & Plan (1) Hypoglycemia Assessment and Plan: 36yo M. PMHx CHF, DM type 1, gastoparesis, HTN, hypercholesterolemia, ESRD on HD (MW). Neuro: alert, but lethargic Pulm: hypercarbia, will start on BIPAP. recheck ABG. CV: hemodynamically stable. Hem: no acute issues Renal: ESRD on HD (MW), dialysis schedule for tomorrow, regular schedule. Endo: DM type 1, currently hypoglycemic. Not hypothyroidism. started D10 drip. GI: NPO ID: no acute issues DVT proph - heparin sq GI proph - not currently indicated Code status - full code Critical Care Time spent 35 minutes Multi-disciplinary rounds were performed with house staff, nursing, speech therapy, respiratory therapy, pharmacy and nutrition with integrated input from the primary team/attending and other consulting services. The documented time is cumulative and includes review of patient data/exams/labs/chart review and examination of the patient on rounds and throughout the day; time is exclusive of any procedures or teaching time. Status: Acute
--- NOTE | 2017-05-01 13:23 | CT ---
PROCEDURE: CT HEAD WITHOUT CONTRAST. HISTORY: HTN, VOMITING AMS COMPARISON: 03/12/2017 TECHNIQUE: Axial computed tomography images were obtained through the head/brain without intravenous contrast. Radiation dose: Total exam DLP = 919.84 mGy-cm. This CT exam was performed using one or more of the following dose reduction techniques: Automated exposure control, adjustment of the mA and/or kV according to patient size, and/or use of iterative reconstruction technique. FINDINGS: HEMORRHAGE: No intracranial hemorrhage. BRAIN: No mass effect or edema. Minimal atrophy. Minimal periventricular white matter lucency consistent with chronic microvascular ischemic change. No evidence of acute infarct. VENTRICLES: Unremarkable. No hydrocephalus. CALVARIUM: Unremarkable. PARANASAL SINUSES: Unremarkable as visualized. No significant inflammatory changes. MASTOID AIR CELLS: Unremarkable as visualized. No inflammatory changes. OTHER FINDINGS: None. IMPRESSION: No intracranial mass, hemorrhage or evidence of acute infarct. Minimal atrophy and chronic white matter ischemic change. No significant change from 03/12/2017.
[2017-05-01] MEDS ORDERED: Tramadol 25 mg PO PRN (14:01)
[2017-05-01 14:11] LABS: ABG ALLEN TEST PO; ARTERIAL BLOOD GAS HCO3 30.1 mmol/L (21-28); ARTERIAL BLOOD GAS HEMOGLOBIN 11.2 g/dL (11.7-17.4); ARTERIAL BLOOD GAS O2 SAT 93.7 % (95-98); ARTERIAL BLOOD GAS PCO2 53 mm/Hg (35-45); ARTERIAL BLOOD GAS PO2 74 mm/Hg (80-100); ARTERIAL BLOOD GAS TCO2 34.4 mmol/L (22-28)
[2017-05-01] MEDS ORDERED: (Novolog) Insulin Aspart, Recombinant 100 u/ml 10 ml vial SC SCH (18:00)
[2017-05-01] MEDS ORDERED: Vancomycin 1 GM 1 GM/250 ML BAG IV ONE (20:30)
[2017-05-01] MEDS ORDERED: Alum-Mag Hydrox-Simethicone Susp (30 mL) PO ONE (20:44)
[2017-05-01] MEDS: (Novolog) Insulin Aspart, Recombinant 100 u/ml 10 ml vial SC SCH (21:35)
[2017-05-02 06:29] LABS: BASO # 0.1 K/uL (0.0-0.2); BASO % 0.9 % (0.0-2.0); EOS # 0.3 K/uL (0.0-0.7); EOS % 2.8 % (0.0-4.0); HEMOGLOBIN 11.5 g/dL (12.0-18.0); LYMPH # 1.2 K/uL (1.0-4.3); MEAN CELL VOLUME 86.3 fL (80.0-94.0); MEAN CORPUSCULAR HEMOGLOBIN 27.7 pg (27.0-31.0); MEAN CORPUSCULAR HGB CONC 32.2 g/dL (33.0-37.0); MEAN PLATELET VOLUME 9.3 fL (7.2-11.7); MONO # 0.7 K/uL (0.0-0.8); MONO % 6.7 % (0.0-10.0); NEUT % 77.6 % (50.0-75.0); RBC 4.14 Mil/uL (4.40-5.90); WHITE BLOOD COUNT 10.3 K/uL (4.8-10.8)
[2017-05-02 06:49] LABS: ALBUMIN 3.2 g/dL (3.5-5.0); CALCIUM 7.6 mg/dl (8.6-10.4)
[2017-05-02] MEDS: (Novolog) Insulin Aspart, Recombinant 100 u/ml 10 ml vial SC SCH ×4 (08:09→21:57)
[2017-05-02] MEDS: Pantoprazole 40 mg EC Tab PO SCH (10:24)
--- NOTE | 2017-05-02 12:52 | CP.PCM.CON ---
History of Present Illness - History of Present Illness History of Present Illness: Nephrology Consultation Note Assessment: Stable recurrent nausea/vomiting, Cyclic Emesis Syndrome, marijuana abuse, gastroparesis uncontrolled DM with hypoglycemia and hyperglycemia Diabetic chronic Kidney Disease (E11.22) Hypertensive Chronic Kidney Disease (I12.0) End stage renal disease (N18.6) dependence on hemodialysis (Z99.2) (MWF) via AVF Anemia (D64.9), Hyperphosphatemia (E83.39), Secondary Hyperparathyroidism (E21.1 ), HTN (I12.0) Plan: dialysis today as per MWF schedule as ordered. Continue with Nephrovite 1 tab/ day. Hb 11+ hence no MOHINI at this time Continue with phos binders BP control with meds as ordered. on lisinopril Glycemic control, Dialysis consistent diet Further work up/management as per primary team Dose meds/antibiotics (if needed) for ESRD status. Avoid fleets enema/magnesium based laxatives. pt to abstain from marijuana continue with PPI, pt also on reglan. Thanks for allowing me to participate in care of your patient. Will follow patient with you. Please call if any Qs. d/w team Dr Brenton Larsen Office: [phone] Chief Complaint; pain abdomen Reason for consult; ESRD, HTN HPI: Pt is a 36 y/o M with hx of ESRD on hemodialysis (MWF) via AVF, chronic anemia, hyperphosphatemia, secondary hyperparathyroidism, Diabetes Mellitus, hypertension, recurrent nausea/vomiting and multiple hospitalization for same, came back with nausea/vomitting, abdomen pain and low blood sugar. continue to smoke marijuana Denies chest pain, palpitation, leg swelling c/o pain upper abdomen ROS: Constitutional Symptoms: Denies fever. No chills. No Recent Weight Changes Cardiovascular: No chest pain. There is shortness of breath. No palpitations. Pulmonary: No cough. Gastrointestinal: c/o abdominal pain now improved nausea. improved vomiting. Denies change in bowel habits. Denies Bleeding All other negative. Physical Examination: General Appearance: comfortable, in no acute respiratory distress, co-operative . Vitals reviewed and noted as below Head; Atraumatic, normocephalic ENT: no ulcers no thrush. Tongue is midline. Oropharynx: no rash or ulcers. EYES: Pupils are equal, round and reactive to light accommodation. Eye muscles and extraocular movement intact. Sclera is anicteric. Neck; supple no lymphadenopathy, no thyromegaly or bruit Lungs: Normal respiratory rate/effort. Breath sounds bilateral equal and clear Heart: Normal rate. s1s2 normal. No rub or gallop. Extremities: no edema. No varicose veins Neurological: Patient is alert, awake and oriented to person, place and time. No focal deficit. Strength bilateral appropriate and equal Skin: Warm and dry. Normal turgor. No rash. Palpitation: Normal elasticity for age Abdomen: Abdomen is soft. Bowel sounds +. There is mild epigastric abdominal tenderness, no guarding/rigidity or organomegaly Psych: limited insight and normal affect/mood MSK: no joint tenderness or swelling. Digits and nails normal, no deformity. : kidney or bladder not palpable. Access: AVF Labs/imaging reviewed. Past medical history, past surgical history, family history, social history, allergy reviewed and noted as below Family Hx: no hx of CKD. Non contributory sec HTN work up neg as renin/ioana, metanephrine and renal artery doppler Past Patient History - Infectious Disease Hx of Infectious Diseases: None - Past Medical History & Family History Past Medical History?: Yes - Past Social History Smoking Status: Light Smoker < 10 Cigarettes Daily - CARDIAC Hx Congestive Heart Failure: Yes Hx Hypercholesterolemia: Yes Hx Hypertension: Yes Hx Peripheral Edema: Yes - PULMONARY Hx Respiratory Disorders: No - NEUROLOGICAL Hx Neurological Disorder: No - HEENT Hx HEENT Problems: Yes - RENAL Hx Chronic Kidney Disease: Yes Hx Kidney Stones: No - ENDOCRINE/METABOLIC Hx Endocrine Disorders: Yes Hx Diabetes Mellitus Type 2: Yes - HEMATOLOGICAL/ONCOLOGICAL Hx Anemia: Yes Hx Human Immunodeficiency Virus (HIV): No - INTEGUMENTARY Hx Dermatological Problems: No - MUSCULOSKELETAL/RHEUMATOLOGICAL Hx Falls: Yes - GASTROINTESTINAL Hx Gastritis: Yes (gastroparesis) - GENITOURINARY/GYNECOLOGICAL Hx Genitourinary Disorders: No - PSYCHIATRIC Hx Psychophysiologic Disorder: No Hx Substance Use: (marijuana) - SURGICAL HISTORY Hx Surgeries: Yes Hx Cataract Extraction: Yes (bilateral) Hx Vascular Access Device: Yes Other/Comment: Hx RT.PERMACATH INSERTION 12/30. 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 Hx UNDESCENDED TESTES LT. REMOVED DURING CHILDHOOD - ANESTHESIA Hx Anesthesia: Yes Hx Anesthesia Reactions: No Hx Malignant Hyperthermia: No Meds Allergies/Adverse Reactions: Allergies Allergy/AdvReac Type Severity Reaction Status Date / Time No Known Allergies Allergy Verified 04/11/17 02:26 - Medications Medications: Current Medications Amlodipine Besylate (Norvasc) 10 mg PO DAILY [facility] Last Admin: 05/02/17 10:22 Dose: 10 mg Clonidine HCl (Catapres) 0.2 mg PO TID [facility] Last Admin: 05/02/17 10:22 Dose: 0.2 mg Heparin Sodium (Porcine) (Heparin) 5,000 units SC Q8 [facility] Last Admin: 05/02/17 05:24 Dose: 5,000 units Heparin Sodium (Porcine) (Heparin) 2,000 units IVP MWF [facility] Insulin Aspart (Novolog) 0 unit SC ACHS [facility] PRN Reason: Protocol Last Admin: 05/02/17 12:32 Dose: 4 unit Lisinopril (Zestril) 10 mg PO DAILY [facility] Last Admin: 05/02/17 10:22 Dose: 10 mg Metoclopramide HCl (Reglan) 5 mg PO AC [facility] Last Admin: 05/02/17 08:10 Dose: 5 mg Morphine Sulfate (Morphine) 2 mg IVP Q8 PRN PRN Reason: Pain, SEVERE (8-10) Last Admin: 05/02/17 10:48 Dose: 2 mg Pantoprazole Sodium (Protonix Ec Tab) 40 mg PO DAILY [facility] Last Admin: 05/02/17 10:24 Dose: 40 mg Sevelamer Carbonate (Renvela) 1,600 mg PO TIDCC [facility] Tramadol HCl (Ultram) 25 mg PO TID PRN PRN Reason: Pain, moderate (4-7) Vitamin B Complex/Vit C/Folic Acid (Nephro-Yomi) 1 tab PO 0800 [facility] Results - Vital Signs Recent Vital Signs: Last Vital Signs Temp 98.9 F 05/02/17 00:00 Pulse 89 05/02/17 11:07 Resp 11 L 05/02/17 11:07 BP 149/84 05/02/17 11:07 Pulse Ox 97 05/02/17 10:07 - Labs Result Diagrams: 05/02/17 06:21 05/02/17 06:21 Labs: Laboratory Results - last 24 hr 05/01/17 05/01/17 05/01/17 14:07 14:15 15:11 WBC RBC Hgb Hct MCV MCH MCHC RDW Plt Count MPV Neut % (Auto) Lymph % (Auto) [place] % (Auto) Eos % (Auto) Baso % (Auto) Neut # (Auto) Lymph # (Auto) [place] # (Auto) Eos # (Auto) Baso # (Auto) Puncture Site Rra pCO2 53 H pO2 74 L HCO3 30.1 H ABG pH 7.40 ABG Total CO2 34.4 H ABG O2 Saturation 93.7 L ABG Base Excess 6.7 H ABG Hemoglobin 11.2 L ABG Carboxyhemoglobin 0.7 POC ABG HHb (Measured) 6.3 H ABG Methemoglobin 0.0 Isaac Test Po A-a O2 Difference 9.0 Respiratory Index 0.1 Hgb O2 Saturation 93.0 L FiO2 21.0 Sodium Potassium Chloride Carbon Dioxide Anion Gap BUN Creatinine Est GFR ( Amer) Est GFR (Non-Af Amer) POC Glucose (mg/dL) 290 H 238 H Random Glucose Hemoglobin A1c Calcium Phosphorus Magnesium Total Bilirubin AST ALT Alkaline Phosphatase Total Protein Albumin Globulin Albumin/Globulin Ratio 05/01/17 05/01/17 05/01/17 16:05 16:57 17:54 WBC RBC Hgb Hct MCV MCH MCHC RDW Plt Count MPV Neut % (Auto) Lymph % (Auto) [place] % (Auto) Eos % (Auto) Baso % (Auto) Neut # (Auto) Lymph # (Auto) [place] # (Auto) Eos # (Auto) Baso # (Auto) Puncture Site pCO2 pO2 HCO3 ABG pH ABG Total CO2 ABG O2 Saturation ABG Base Excess ABG Hemoglobin ABG Carboxyhemoglobin POC ABG HHb (Measured) ABG Methemoglobin Isaac Test A-a O2 Difference Respiratory Index Hgb O2 Saturation FiO2 Sodium Potassium Chloride Carbon Dioxide Anion Gap BUN Creatinine Est GFR ( Amer) Est GFR (Non-Af Amer) POC Glucose (mg/dL) 245 H 271 H 261 H Random Glucose Hemoglobin A1c Calcium Phosphorus Magnesium Total Bilirubin AST ALT Alkaline Phosphatase Total Protein Albumin Globulin Albumin/Globulin Ratio 05/01/17 05/02/17 05/02/17 21:11 01:52 06:21 WBC 10.3 RBC 4.14 L Hgb 11.5 L Hct 35.7 MCV 86.3 MCH 27.7 MCHC 32.2 L RDW 18.0 H Plt Count 259 MPV 9.3 Neut % (Auto) 77.6 H Lymph % (Auto) 12.0 L [place] % (Auto) 6.7 Eos % (Auto) 2.8 Baso % (Auto) 0.9 Neut # (Auto) 8.0 H Lymph # (Auto) 1.2 [place] # (Auto) 0.7 Eos # (Auto) 0.3 Baso # (Auto) 0.1 Puncture Site pCO2 pO2 HCO3 ABG pH ABG Total CO2 ABG O2 Saturation ABG Base Excess ABG Hemoglobin ABG Carboxyhemoglobin POC ABG HHb (Measured) ABG Methemoglobin Isaac Test A-a O2 Difference Respiratory Index Hgb O2 Saturation FiO2 Sodium Potassium Chloride Carbon Dioxide Anion Gap BUN Creatinine Est GFR ( Amer) Est GFR (Non-Af Amer) POC Glucose (mg/dL) 149 H 156 H Random Glucose Hemoglobin A1c Calcium Phosphorus Magnesium Total Bilirubin AST ALT Alkaline Phosphatase Total Protein Albumin Globulin Albumin/Globulin Ratio 05/02/17 05/02/17 05/02/17 06:21 06:21 07:19 WBC RBC Hgb Hct MCV MCH MCHC RDW Plt Count MPV Neut % (Auto) Lymph % (Auto) [place] % (Auto) Eos % (Auto) Baso % (Auto) Neut # (Auto) Lymph # (Auto) [place] # (Auto) Eos # (Auto) Baso # (Auto) Puncture Site pCO2 pO2 HCO3 ABG pH ABG Total CO2 ABG O2 Saturation ABG Base Excess ABG Hemoglobin ABG Carboxyhemoglobin POC ABG HHb (Measured) ABG Methemoglobin Isaac Test A-a O2 Difference Respiratory Index Hgb O2 Saturation FiO2 Sodium 136 Potassium 4.7 Chloride 92 L Carbon Dioxide 27 Anion Gap 21 H BUN 64 H Creatinine 8.0 H* Est GFR ( Amer) 9 Est GFR (Non-Af Amer) 8 POC Glucose (mg/dL) 240 H Random Glucose 205 H Hemoglobin A1c 10.2 H D Calcium 7.6 L Phosphorus 8.5 H Magnesium 2.0 Total Bilirubin 0.4 AST 20 ALT 26 Alkaline Phosphatase 102 Total Protein 6.5 Albumin 3.2 L Globulin 3.3 Albumin/Globulin Ratio 1.0 05/02/17 11:37 WBC RBC Hgb Hct MCV MCH MCHC RDW Plt Count MPV Neut % (Auto) Lymph % (Auto) [place] % (Auto) Eos % (Auto) Baso % (Auto) Neut # (Auto) Lymph # (Auto) [place] # (Auto) Eos # (Auto) Baso # (Auto) Puncture Site pCO2 pO2 HCO3 ABG pH ABG Total CO2 ABG O2 Saturation ABG Base Excess ABG Hemoglobin ABG Carboxyhemoglobin POC ABG HHb (Measured) ABG Methemoglobin Isaac Test A-a O2 Difference Respiratory Index Hgb O2 Saturation FiO2 Sodium Potassium Chloride Carbon Dioxide Anion Gap BUN Creatinine Est GFR ( Amer) Est GFR (Non-Af Amer) POC Glucose (mg/dL) 200 H Random Glucose Hemoglobin A1c Calcium Phosphorus Magnesium Total Bilirubin AST ALT Alkaline Phosphatase Total Protein Albumin Globulin Albumin/Globulin Ratio
--- NOTE | 2017-05-02 13:10 | HP ---
HISTORY OF PRESENT ILLNESS: A 36-year-old male who was admitted to the hospital with chief complaint of weakness, fatigue, tiredness, hypoglycemia, altered mental status. The patient came to the hospital, advised admission. The patient has a history of chronic renal failure, diabetes, blindness, marijuana addiction. PHYSICAL EXAMINATION: GENERAL: The patient is awake, alert, oriented, but a bit lethargic. VITAL SIGNS: Temperature 98.4, pulse is 90, blood pressure 120/70. HEENT: Within normal limits. Eyes are blind. NECK: Supple. CHEST: Symmetrical. HEART: Regular. ABDOMEN: Soft. EXTREMITIES: No edema. IMPRESSION: The patient with hypoglycemia, renal failure, hypothermia, rule out sepsis. The patient to be in bedrest, IV fluids, supportive care. Lucero Chadwick MD
--- NOTE | 2017-05-02 13:38 | CP.CCUPN ---
Addendum entered and electronically signed by Qing Zambrano DO 05/02/17 14:22: Physical Exam: - Constitutional Appears: AAOx3, no acute distress - Head Exam Head Exam: ATRAUMATIC, NORMAL INSPECTION, NORMOCEPHALIC - Eye Exam Eye Exam: EOMI, Normal appearance, PERRL, Patient states that vision is not clear - ENT Exam ENT Exam: Mucous Membranes Moist, Normal Exam - Respiratory Exam Respiratory Exam: Clear to Auscultation Bilateral, NORMAL BREATHING PATTERN - Cardiovascular Exam Cardiovascular Exam: REGULAR RHYTHM - GI/Abdominal Exam GI & Abdominal Exam: Normal Bowel Sounds, Soft. absent: Tenderness - Neurological Exam Neurological exam: Alert, Oriented, no focal/neurological deficits appreciated Additional comments: Original Note: <Qing Zambrano - Last Filed: 05/02/17 14:16> CCU Subjective - Physician Review Subjective (Free Text): 05/02/17 13:36 Patient seen and examined at bedside. Per nursing, no acute events overnight. Patient having generalized abdominal pain. States that when he was home his sugar was in the 400s. He did not want to wake his mother up and administered insulin himself. Believes that he took too much insulin. Patient is due for hemodialysis today, consent obtained. CCU Objective - Vital Signs / Intake & Output Vital Signs (Last 4 hours): Vital Signs Pulse Resp BP Pulse Ox 05/02/17 11:07 89 11 L 149/84 05/02/17 10:46 93 H 14 169/97 H 05/02/17 10:07 90 159/90 H 97 Intake and Output (Last 8hrs): Intake & Output 05/01/17 05/02/17 05/02/17 22:59 06:59 14:59 Intake Total 60 480 450 Output Total 0 300 Balance 60 480 150 Intake: Intake, IV Amount 0 Left External Jugular 0 Right Forearm 0 Oral 60 480 450 Output: Urine 0 300 Urine, Voided 0 300 Stool 0 0 Other: # Voids Urine, Voided 1 - Medications Active Medications: Active Medications Generic Name Dose Route Start Last Admin Trade Name Freq PRN Reason Stop Dose Admin Amlodipine Besylate 10 mg 05/01/17 17:45 05/02/17 10:22 Norvasc PO 10 mg DAILY GADIEL Administration Clonidine HCl 0.2 mg 05/01/17 18:00 05/02/17 10:22 Catapres PO 0.2 mg TID GADIEL Administration Heparin Sodium (Porcine) 5,000 units 05/01/17 22:00 05/02/17 05:24 Heparin SC 5,000 units Q8 GADIEL Administration Heparin Sodium (Porcine) 2,000 units 05/02/17 10:30 Heparin IVP MWF [facility] Insulin Aspart 0 unit 05/01/17 22:00 05/02/17 12:32 Novolog SC 4 unit ACHS [facility] Administration Protocol Lisinopril 10 mg 05/01/17 17:45 05/02/17 10:22 Zestril PO 10 mg DAILY GADIEL Administration Metoclopramide HCl 5 mg 05/02/17 07:30 05/02/17 08:10 Reglan PO 5 mg AC GADIEL Administration Morphine Sulfate 2 mg 05/02/17 09:29 05/02/17 10:48 Morphine IVP 2 mg Q8 PRN Administration Pain, SEVERE (8-10) Pantoprazole Sodium 40 mg 05/02/17 10:15 05/02/17 10:24 Protonix Ec Tab PO 40 mg DAILY GADIEL Administration Sevelamer Carbonate 1,600 mg 05/02/17 12:00 Renvela PO TIDCC [facility] Tramadol HCl 25 mg 05/01/17 14:01 Ultram PO TID PRN Pain, moderate (4-7) Vitamin B Complex/Vit C/Folic Acid 1 tab 05/03/17 08:00 Nephro-Yomi PO 0800 [facility] - Patient Studies Lab Studies: Lab Studies 05/02/17 05/02/17 05/02/17 Range/Units 11:37 07:19 06:21 WBC (4.8-10.8) K/uL RBC (4.40-5.90) Mil/uL Hgb (12.0-18.0) g/dL Hct (35.0-51.0) % MCV (80.0-94.0) fL MCH (27.0-31.0) pg MCHC (33.0-37.0) g/dL RDW (11.5-14.5) % Plt Count (130-400) K/uL MPV (7.2-11.7) fL Neut % (Auto) (50.0-75.0) % Lymph % (Auto) (20.0-40.0) % [place] % (Auto) (0.0-10.0) % Eos % (Auto) (0.0-4.0) % Baso % (Auto) (0.0-2.0) % Neut # (Auto) (1.8-7.0) K/uL Lymph # (Auto) (1.0-4.3) K/uL [place] # (Auto) (0.0-0.8) K/uL Eos # (Auto) (0.0-0.7) K/uL Baso # (Auto) (0.0-0.2) K/uL Puncture Site pCO2 (35-45) mm/Hg pO2 (80-100) mm/Hg HCO3 (21-28) mmol/L ABG pH (7.35-7.45) ABG Total CO2 (22-28) mmol/L ABG O2 Saturation (95-98) % ABG Base Excess (-2.0-3.0) mmol/L ABG Hemoglobin (11.7-17.4) g/dL ABG Carboxyhemoglobin (0.5-1.5) % POC ABG HHb (Measured) (0.0-5.0) % ABG Methemoglobin (0.0-3.0) % Isaac Test A-a O2 Difference mm/Hg Respiratory Index Hgb O2 Saturation (95.0-98.0) % FiO2 % Sodium (132-148) mmol/L Potassium (3.6-5.2) mmol/L Chloride (98-107) mmol/L Carbon Dioxide (22-30) mmol/L Anion Gap (10-20) BUN (9-20) mg/dL Creatinine (0.8-1.5) mg/dL Est GFR ( Amer) Est GFR (Non-Af Amer) POC Glucose (mg/dL) 200 H 240 H (65-110) mg/dL Random Glucose (75-110) mg/dL Hemoglobin A1c 10.2 H D (4.2-6.5) % Calcium (8.6-10.4) mg/dl Phosphorus (2.5-4.5) mg/dL Magnesium (1.6-2.3) mg/dL Total Bilirubin (0.2-1.3) mg/dL AST (17-59) U/L ALT (21-72) U/L Alkaline Phosphatase (38-126) U/L Total Protein (6.3-8.3) g/dL Albumin (3.5-5.0) g/dL Globulin (2.2-3.9) gm/dL Albumin/Globulin Ratio (1.0-2.1) 05/02/17 05/02/17 05/02/17 Range/Units 06:21 06:21 01:52 WBC 10.3 (4.8-10.8) K/uL RBC 4.14 L (4.40-5.90) Mil/uL Hgb 11.5 L (12.0-18.0) g/dL Hct 35.7 (35.0-51.0) % MCV 86.3 (80.0-94.0) fL MCH 27.7 (27.0-31.0) pg MCHC 32.2 L (33.0-37.0) g/dL RDW 18.0 H (11.5-14.5) % Plt Count 259 (130-400) K/uL MPV 9.3 (7.2-11.7) fL Neut % (Auto) 77.6 H (50.0-75.0) % Lymph % (Auto) 12.0 L (20.0-40.0) % [place] % (Auto) 6.7 (0.0-10.0) % Eos % (Auto) 2.8 (0.0-4.0) % Baso % (Auto) 0.9 (0.0-2.0) % Neut # (Auto) 8.0 H (1.8-7.0) K/uL Lymph # (Auto) 1.2 (1.0-4.3) K/uL [place] # (Auto) 0.7 (0.0-0.8) K/uL Eos # (Auto) 0.3 (0.0-0.7) K/uL Baso # (Auto) 0.1 (0.0-0.2) K/uL Puncture Site pCO2 (35-45) mm/Hg pO2 (80-100) mm/Hg HCO3 (21-28) mmol/L ABG pH (7.35-7.45) ABG Total CO2 (22-28) mmol/L ABG O2 Saturation (95-98) % ABG Base Excess (-2.0-3.0) mmol/L ABG Hemoglobin (11.7-17.4) g/dL ABG Carboxyhemoglobin (0.5-1.5) % POC ABG HHb (Measured) (0.0-5.0) % ABG Methemoglobin (0.0-3.0) % Isaac Test A-a O2 Difference mm/Hg Respiratory Index Hgb O2 Saturation (95.0-98.0) % FiO2 % Sodium 136 (132-148) mmol/L Potassium 4.7 (3.6-5.2) mmol/L Chloride 92 L (98-107) mmol/L Carbon Dioxide 27 (22-30) mmol/L Anion Gap 21 H (10-20) BUN 64 H (9-20) mg/dL Creatinine 8.0 H* (0.8-1.5) mg/dL Est GFR ( Amer) 9 Est GFR (Non-Af Amer) 8 POC Glucose (mg/dL) 156 H (65-110) mg/dL Random Glucose 205 H (75-110) mg/dL Hemoglobin A1c (4.2-6.5) % Calcium 7.6 L (8.6-10.4) mg/dl Phosphorus 8.5 H (2.5-4.5) mg/dL Magnesium 2.0 (1.6-2.3) mg/dL Total Bilirubin 0.4 (0.2-1.3) mg/dL AST 20 (17-59) U/L ALT 26 (21-72) U/L Alkaline Phosphatase 102 (38-126) U/L Total Protein 6.5 (6.3-8.3) g/dL Albumin 3.2 L (3.5-5.0) g/dL Globulin 3.3 (2.2-3.9) gm/dL Albumin/Globulin Ratio 1.0 (1.0-2.1) 05/01/17 05/01/17 05/01/17 Range/Units 21:11 17:54 16:57 WBC (4.8-10.8) K/uL RBC (4.40-5.90) Mil/uL Hgb (12.0-18.0) g/dL Hct (35.0-51.0) % MCV (80.0-94.0) fL MCH (27.0-31.0) pg MCHC (33.0-37.0) g/dL RDW (11.5-14.5) % Plt Count (130-400) K/uL MPV (7.2-11.7) fL Neut % (Auto) (50.0-75.0) % Lymph % (Auto) (20.0-40.0) % [place] % (Auto) (0.0-10.0) % Eos % (Auto) (0.0-4.0) % Baso % (Auto) (0.0-2.0) % Neut # (Auto) (1.8-7.0) K/uL Lymph # (Auto) (1.0-4.3) K/uL [place] # (Auto) (0.0-0.8) K/uL Eos # (Auto) (0.0-0.7) K/uL Baso # (Auto) (0.0-0.2) K/uL Puncture Site pCO2 (35-45) mm/Hg pO2 (80-100) mm/Hg HCO3 (21-28) mmol/L ABG pH (7.35-7.45) ABG Total CO2 (22-28) mmol/L ABG O2 Saturation (95-98) % ABG Base Excess (-2.0-3.0) mmol/L ABG Hemoglobin (11.7-17.4) g/dL ABG Carboxyhemoglobin (0.5-1.5) % POC ABG HHb (Measured) (0.0-5.0) % ABG Methemoglobin (0.0-3.0) % Isaac Test A-a O2 Difference mm/Hg Respiratory Index Hgb O2 Saturation (95.0-98.0) % FiO2 % Sodium (132-148) mmol/L Potassium (3.6-5.2) mmol/L Chloride (98-107) mmol/L Carbon Dioxide (22-30) mmol/L Anion Gap (10-20) BUN (9-20) mg/dL Creatinine (0.8-1.5) mg/dL Est GFR ( Amer) Est GFR (Non-Af Amer) POC Glucose (mg/dL) 149 H 261 H 271 H (65-110) mg/dL Random Glucose (75-110) mg/dL Hemoglobin A1c (4.2-6.5) % Calcium (8.6-10.4) mg/dl Phosphorus (2.5-4.5) mg/dL Magnesium (1.6-2.3) mg/dL Total Bilirubin (0.2-1.3) mg/dL AST (17-59) U/L ALT (21-72) U/L Alkaline Phosphatase (38-126) U/L Total Protein (6.3-8.3) g/dL Albumin (3.5-5.0) g/dL Globulin (2.2-3.9) gm/dL Albumin/Globulin Ratio (1.0-2.1) 05/01/17 05/01/17 05/01/17 Range/Units 16:05 15:11 14:15 WBC (4.8-10.8) K/uL RBC (4.40-5.90) Mil/uL Hgb (12.0-18.0) g/dL Hct (35.0-51.0) % MCV (80.0-94.0) fL MCH (27.0-31.0) pg MCHC (33.0-37.0) g/dL RDW (11.5-14.5) % Plt Count (130-400) K/uL MPV (7.2-11.7) fL Neut % (Auto) (50.0-75.0) % Lymph % (Auto) (20.0-40.0) % [place] % (Auto) (0.0-10.0) % Eos % (Auto) (0.0-4.0) % Baso % (Auto) (0.0-2.0) % Neut # (Auto) (1.8-7.0) K/uL Lymph # (Auto) (1.0-4.3) K/uL [place] # (Auto) (0.0-0.8) K/uL Eos # (Auto) (0.0-0.7) K/uL Baso # (Auto) (0.0-0.2) K/uL Puncture Site pCO2 (35-45) mm/Hg pO2 (80-100) mm/Hg HCO3 (21-28) mmol/L ABG pH (7.35-7.45) ABG Total CO2 (22-28) mmol/L ABG O2 Saturation (95-98) % ABG Base Excess (-2.0-3.0) mmol/L ABG Hemoglobin (11.7-17.4) g/dL ABG Carboxyhemoglobin (0.5-1.5) % POC ABG HHb (Measured) (0.0-5.0) % ABG Methemoglobin (0.0-3.0) % Isaac Test A-a O2 Difference mm/Hg Respiratory Index Hgb O2 Saturation (95.0-98.0) % FiO2 % Sodium (132-148) mmol/L Potassium (3.6-5.2) mmol/L Chloride (98-107) mmol/L Carbon Dioxide (22-30) mmol/L Anion Gap (10-20) BUN (9-20) mg/dL Creatinine (0.8-1.5) mg/dL Est GFR ( Amer) Est GFR (Non-Af Amer) POC Glucose (mg/dL) 245 H 238 H 290 H (65-110) mg/dL Random Glucose (75-110) mg/dL Hemoglobin A1c (4.2-6.5) % Calcium (8.6-10.4) mg/dl Phosphorus (2.5-4.5) mg/dL Magnesium (1.6-2.3) mg/dL Total Bilirubin (0.2-1.3) mg/dL AST (17-59) U/L ALT (21-72) U/L Alkaline Phosphatase (38-126) U/L Total Protein (6.3-8.3) g/dL Albumin (3.5-5.0) g/dL Globulin (2.2-3.9) gm/dL Albumin/Globulin Ratio (1.0-2.1) 05/01/17 Range/Units 14:07 WBC (4.8-10.8) K/uL RBC (4.40-5.90) Mil/uL Hgb (12.0-18.0) g/dL Hct (35.0-51.0) % MCV (80.0-94.0) fL MCH (27.0-31.0) pg MCHC (33.0-37.0) g/dL RDW (11.5-14.5) % Plt Count (130-400) K/uL MPV (7.2-11.7) fL Neut % (Auto) (50.0-75.0) % Lymph % (Auto) (20.0-40.0) % [place] % (Auto) (0.0-10.0) % Eos % (Auto) (0.0-4.0) % Baso % (Auto) (0.0-2.0) % Neut # (Auto) (1.8-7.0) K/uL Lymph # (Auto) (1.0-4.3) K/uL [place] # (Auto) (0.0-0.8) K/uL Eos # (Auto) (0.0-0.7) K/uL Baso # (Auto) (0.0-0.2) K/uL Puncture Site Rra pCO2 53 H (35-45) mm/Hg pO2 74 L (80-100) mm/Hg HCO3 30.1 H (21-28) mmol/L ABG pH 7.40 (7.35-7.45) ABG Total CO2 34.4 H (22-28) mmol/L ABG O2 Saturation 93.7 L (95-98) % ABG Base Excess 6.7 H (-2.0-3.0) mmol/L ABG Hemoglobin 11.2 L (11.7-17.4) g/dL ABG Carboxyhemoglobin 0.7 (0.5-1.5) % POC ABG HHb (Measured) 6.3 H (0.0-5.0) % ABG Methemoglobin 0.0 (0.0-3.0) % Isaac Test Po A-a O2 Difference 9.0 mm/Hg Respiratory Index 0.1 Hgb O2 Saturation 93.0 L (95.0-98.0) % FiO2 21.0 % Sodium (132-148) mmol/L Potassium (3.6-5.2) mmol/L Chloride (98-107) mmol/L Carbon Dioxide (22-30) mmol/L Anion Gap (10-20) BUN (9-20) mg/dL Creatinine (0.8-1.5) mg/dL Est GFR ( Amer) Est GFR (Non-Af Amer) POC Glucose (mg/dL) (65-110) mg/dL Random Glucose (75-110) mg/dL Hemoglobin A1c (4.2-6.5) % Calcium (8.6-10.4) mg/dl Phosphorus (2.5-4.5) mg/dL Magnesium (1.6-2.3) mg/dL Total Bilirubin (0.2-1.3) mg/dL AST (17-59) U/L ALT (21-72) U/L Alkaline Phosphatase (38-126) U/L Total Protein (6.3-8.3) g/dL Albumin (3.5-5.0) g/dL Globulin (2.2-3.9) gm/dL Albumin/Globulin Ratio (1.0-2.1) Laboratory Results - last 24 hr 05/01/17 05/01/17 05/01/17 14:07 14:15 15:11 WBC RBC Hgb Hct MCV MCH MCHC RDW Plt Count MPV Neut % (Auto) Lymph % (Auto) [place] % (Auto) Eos % (Auto) Baso % (Auto) Neut # (Auto) Lymph # (Auto) [place] # (Auto) Eos # (Auto) Baso # (Auto) Puncture Site Rra pCO2 53 H pO2 74 L HCO3 30.1 H ABG pH 7.40 ABG Total CO2 34.4 H ABG O2 Saturation 93.7 L ABG Base Excess 6.7 H ABG Hemoglobin 11.2 L ABG Carboxyhemoglobin 0.7 POC ABG HHb (Measured) 6.3 H ABG Methemoglobin 0.0 Isaac Test Po A-a O2 Difference 9.0 Respiratory Index 0.1 Hgb O2 Saturation 93.0 L FiO2 21.0 Sodium Potassium Chloride Carbon Dioxide Anion Gap BUN Creatinine Est GFR ( Amer) Est GFR (Non-Af Amer) POC Glucose (mg/dL) 290 H 238 H Random Glucose Hemoglobin A1c Calcium Phosphorus Magnesium Total Bilirubin AST ALT Alkaline Phosphatase Total Protein Albumin Globulin Albumin/Globulin Ratio 05/01/17 05/01/17 05/01/17 16:05 16:57 17:54 WBC RBC Hgb Hct MCV MCH MCHC RDW Plt Count MPV Neut % (Auto) Lymph % (Auto) [place] % (Auto) Eos % (Auto) Baso % (Auto) Neut # (Auto) Lymph # (Auto) [place] # (Auto) Eos # (Auto) Baso # (Auto) Puncture Site pCO2 pO2 HCO3 ABG pH ABG Total CO2 ABG O2 Saturation ABG Base Excess ABG Hemoglobin ABG Carboxyhemoglobin POC ABG HHb (Measured) ABG Methemoglobin Isaac Test A-a O2 Difference Respiratory Index Hgb O2 Saturation FiO2 Sodium Potassium Chloride Carbon Dioxide Anion Gap BUN Creatinine Est GFR ( Amer) Est GFR (Non-Af Amer) POC Glucose (mg/dL) 245 H 271 H 261 H Random Glucose Hemoglobin A1c Calcium Phosphorus Magnesium Total Bilirubin AST ALT Alkaline Phosphatase Total Protein Albumin Globulin Albumin/Globulin Ratio 05/01/17 05/02/17 05/02/17 21:11 01:52 06:21 WBC 10.3 RBC 4.14 L Hgb 11.5 L Hct 35.7 MCV 86.3 MCH 27.7 MCHC 32.2 L RDW 18.0 H Plt Count 259 MPV 9.3 Neut % (Auto) 77.6 H Lymph % (Auto) 12.0 L [place] % (Auto) 6.7 Eos % (Auto) 2.8 Baso % (Auto) 0.9 Neut # (Auto) 8.0 H Lymph # (Auto) 1.2 [place] # (Auto) 0.7 Eos # (Auto) 0.3 Baso # (Auto) 0.1 Puncture Site pCO2 pO2 HCO3 ABG pH ABG Total CO2 ABG O2 Saturation ABG Base Excess ABG Hemoglobin ABG Carboxyhemoglobin POC ABG HHb (Measured) ABG Methemoglobin Isaac Test A-a O2 Difference Respiratory Index Hgb O2 Saturation FiO2 Sodium Potassium Chloride Carbon Dioxide Anion Gap BUN Creatinine Est GFR ( Amer) Est GFR (Non-Af Amer) POC Glucose (mg/dL) 149 H 156 H Random Glucose Hemoglobin A1c Calcium Phosphorus Magnesium Total Bilirubin AST ALT Alkaline Phosphatase Total Protein Albumin Globulin Albumin/Globulin Ratio 05/02/17 05/02/17 05/02/17 06:21 06:21 07:19 WBC RBC Hgb Hct MCV MCH MCHC RDW Plt Count MPV Neut % (Auto) Lymph % (Auto) [place] % (Auto) Eos % (Auto) Baso % (Auto) Neut # (Auto) Lymph # (Auto) [place] # (Auto) Eos # (Auto) Baso # (Auto) Puncture Site pCO2 pO2 HCO3 ABG pH ABG Total CO2 ABG O2 Saturation ABG Base Excess ABG Hemoglobin ABG Carboxyhemoglobin POC ABG HHb (Measured) ABG Methemoglobin Isaac Test A-a O2 Difference Respiratory Index Hgb O2 Saturation FiO2 Sodium 136 Potassium 4.7 Chloride 92 L Carbon Dioxide 27 Anion Gap 21 H BUN 64 H Creatinine 8.0 H* Est GFR ( Amer) 9 Est GFR (Non-Af Amer) 8 POC Glucose (mg/dL) 240 H Random Glucose 205 H Hemoglobin A1c 10.2 H D Calcium 7.6 L Phosphorus 8.5 H Magnesium 2.0 Total Bilirubin 0.4 AST 20 ALT 26 Alkaline Phosphatase 102 Total Protein 6.5 Albumin 3.2 L Globulin 3.3 Albumin/Globulin Ratio 1.0 05/02/17 11:37 WBC RBC Hgb Hct MCV MCH MCHC RDW Plt Count MPV Neut % (Auto) Lymph % (Auto) [place] % (Auto) Eos % (Auto) Baso % (Auto) Neut # (Auto) Lymph # (Auto) [place] # (Auto) Eos # (Auto) Baso # (Auto) Puncture Site pCO2 pO2 HCO3 ABG pH ABG Total CO2 ABG O2 Saturation ABG Base Excess ABG Hemoglobin ABG Carboxyhemoglobin POC ABG HHb (Measured) ABG Methemoglobin Isaac Test A-a O2 Difference Respiratory Index Hgb O2 Saturation FiO2 Sodium Potassium Chloride Carbon Dioxide Anion Gap BUN Creatinine Est GFR ( Amer) Est GFR (Non-Af Amer) POC Glucose (mg/dL) 200 H Random Glucose Hemoglobin A1c Calcium Phosphorus Magnesium Total Bilirubin AST ALT Alkaline Phosphatase Total Protein Albumin Globulin Albumin/Globulin Ratio Fingerstick Blood Sugar Results: 200 Critical Care Progress Note - Nutrition Nutrition: Nutrition Category Date Time Status Renal Diet [DIET] Diets 05/01/17 Lunch Active Assessment/Plan - Assessment and Plan (Free Text) Assessment: 36 year old Male with Past Medical Hx CHF, DM type 1, gastoparesis, HTN, hypercholesterolemia, ESRD on HD (MWF) presented to the ED with hypoglycemia refractory to D50. Admitted to the ICU for closer monitoring. Neurology: -Patient is AAOx3 -CT head: No intracranial mass, hemorrhage or evidence of acute infarct. Minimal atrophy and chronic white matter ischemic change -Morphine 2mg IVP Q8H prn pain -Will transfer to Med/Surg after dialysis Pulmonary: -Patient presented with hypercarbia, refused bipap -No acute issues at this time Cardiovascular: -Patient is hemodynamically stable at this time -History of Hypertension -Continue Norvasc 10mg PO daily -Lisinopril 10mg PO daily -Clonidine 0.2mg PO TID Heme/Onc: -no acute issues Renal: -ESRD on HD (MWF), consent for dialysis signed -Nephrovite 1 tab PO daily -Renvela 1,600mg PO TIDCC -Nephrology on consult, help appreciated Endocrine: -Patient with Hx of DM type 1 -Hypoglycemia resolved, D10 drip was discontinued -Hgb A1C 10.2 -ISS/accuchecks ACHS GI: -Hx of gastroparesis -Reglan 5mg PO AC ID: -No acute issues GI/DVT ppx - Heparin sq 5000 units Q8H Protonix 40mg PO daily <Pop Crandall - Last Filed: 05/04/17 14:01> CCU Objective - Vital Signs / Intake & Output Vital Signs (Last 4 hours): Vital Signs Temp Pulse Pulse Resp BP BP Pulse Ox 05/04/17 13:20 152/83 H 05/04/17 13:05 133/80 05/04/17 12:50 150/80 05/04/17 12:35 97.4 F L 78 16 163/90 H 97 05/04/17 12:25 97.4 F L 75 16 153/91 H Intake and Output (Last 8hrs): Intake & Output 05/03/17 05/04/17 05/04/17 22:59 06:59 14:59 Intake Total 200 Balance 200 Weight 152 lb Intake: Oral 200 Other: # Voids Urine, Voided 1 - Medications Active Medications: Active Medications Generic Name Dose Route Start Last Admin Trade Name Freq PRN Reason Stop Dose Admin Amlodipine Besylate 10 mg 05/01/17 17:45 05/04/17 10:15 Norvasc PO Not Given DAILY GADIEL Aspirin 81 mg 05/04/17 10:00 05/04/17 10:18 Aspirin Chewable PO 81 mg DAILY GADIEL Administration Clonidine HCl 0.2 mg 05/01/17 18:00 05/04/17 13:27 Catapres PO Not Given TID GADIEL Dextrose 0 ml 05/03/17 15:10 Dextrose 50% Inj IVP .STAT PRN Hypoglycemia Protocol Protocol Dextrose 15 gm 05/03/17 15:10 Glutose 15 PO .ONCE PRN Hypoglycemia Protocol Protocol Glucagon 1 mg 05/03/17 15:10 Glucagen Diagnostic Kit IM .STAT PRN Hypoglycemia Protocol Protocol Heparin Sodium (Porcine) 5,000 units 05/01/17 22:00 05/04/17 13:27 Heparin SC Not Given Q8 GADIEL Heparin Sodium (Porcine) 2,000 units 05/06/17 10:30 Heparin IVP 05/13/17 10:31 MWF GADIEL Dextrose 1,000 mls @ 0 mls/hr 05/03/17 15:10 Dextrose 5% In Water 1000 Ml IV .Q0M PRN Hypoglycemia Protocol Protocol Per Protocol Insulin Aspart 0 unit 05/03/17 15:10 05/04/17 11:53 Novolog SC 2 unit ACHS GADIEL Administration Protocol Insulin Detemir 10 unit 05/03/17 22:00 05/03/17 21:44 Levemir SC 10 unit HS GADIEL Administration Lisinopril 10 mg 05/01/17 17:45 05/04/17 10:14 Zestril PO Not Given DAILY [facility] Metoclopramide HCl 5 mg 05/02/17 07:30 05/04/17 11:53 Reglan PO 5 mg AC GADIEL Administration Morphine Sulfate 2 mg 05/02/17 09:29 05/04/17 12:33 Morphine IVP 2 mg Q8 PRN Administration Pain, SEVERE (8-10) Pantoprazole Sodium 40 mg 05/02/17 10:15 05/04/17 10:15 Protonix Ec Tab PO Not Given DAILY [facility] Sevelamer Carbonate 1,600 mg 05/02/17 12:00 05/04/17 11:52 Renvela PO 1,600 mg TIDCC GADIEL Administration Vitamin B Complex/Vit C/Folic Acid 1 tab 05/03/17 08:00 05/04/17 08:42 Nephro-Yomi PO 1 tab 0800 GADIEL Administration - Patient Studies Lab Studies: Microbiology Studies 05/01/17 08:30 Blood Culture - Preliminary Blood NO GROWTH AFTER 48 HOURS 05/01/17 09:02 Blood Culture - Preliminary Blood NO GROWTH AFTER 48 HOURS Lab Studies 05/04/17 05/04/17 05/04/17 Range/Units 11:10 07:58 07:58 WBC 7.7 (4.8-10.8) K/uL RBC 3.64 L (4.40-5.90) Mil/uL Hgb 10.4 L (12.0-18.0) g/dL Hct 32.1 L (35.0-51.0) % MCV 88.3 (80.0-94.0) fL MCH 28.5 (27.0-31.0) pg MCHC 32.2 L (33.0-37.0) g/dL RDW 17.6 H (11.5-14.5) % Plt Count 222 (130-400) K/uL MPV 9.3 (7.2-11.7) fL Neut % (Auto) 60.4 (50.0-75.0) % Lymph % (Auto) 25.3 (20.0-40.0) % [place] % (Auto) 8.8 (0.0-10.0) % Eos % (Auto) 4.7 H (0.0-4.0) % Baso % (Auto) 0.8 (0.0-2.0) % Neut # (Auto) 4.7 (1.8-7.0) K/uL Lymph # (Auto) 2.0 (1.0-4.3) K/uL [place] # (Auto) 0.7 (0.0-0.8) K/uL Eos # (Auto) 0.4 (0.0-0.7) K/uL Baso # (Auto) 0.1 (0.0-0.2) K/uL Sodium 133 (132-148) mmol/L Potassium 6.2 H* D (3.6-5.2) mmol/L Chloride 95 L (98-107) mmol/L Carbon Dioxide 27 (22-30) mmol/L Anion Gap 18 (10-20) BUN 68 H (9-20) mg/dL Creatinine 8.1 H* D (0.8-1.5) mg/dL Est GFR ( Amer) 9 Est GFR (Non-Af Amer) 8 POC Glucose (mg/dL) 238 H (65-110) mg/dL Random Glucose 143 H (75-110) mg/dL Calcium 7.7 L (8.6-10.4) mg/dl Total Bilirubin 0.3 (0.2-1.3) mg/dL AST 23 (17-59) U/L ALT 21 D (21-72) U/L Alkaline Phosphatase 94 (38-126) U/L Total Protein 6.5 (6.3-8.3) g/dL Albumin 3.2 L (3.5-5.0) g/dL Globulin 3.3 (2.2-3.9) gm/dL Albumin/Globulin Ratio 1.0 (1.0-2.1) 05/04/17 05/03/17 05/03/17 Range/Units 07:16 21:08 16:35 WBC (4.8-10.8) K/uL RBC (4.40-5.90) Mil/uL Hgb (12.0-18.0) g/dL Hct (35.0-51.0) % MCV (80.0-94.0) fL MCH (27.0-31.0) pg MCHC (33.0-37.0) g/dL RDW (11.5-14.5) % Plt Count (130-400) K/uL MPV (7.2-11.7) fL Neut % (Auto) (50.0-75.0) % Lymph % (Auto) (20.0-40.0) % [place] % (Auto) (0.0-10.0) % Eos % (Auto) (0.0-4.0) % Baso % (Auto) (0.0-2.0) % Neut # (Auto) (1.8-7.0) K/uL Lymph # (Auto) (1.0-4.3) K/uL [place] # (Auto) (0.0-0.8) K/uL Eos # (Auto) (0.0-0.7) K/uL Baso # (Auto) (0.0-0.2) K/uL Sodium (132-148) mmol/L Potassium (3.6-5.2) mmol/L Chloride (98-107) mmol/L Carbon Dioxide (22-30) mmol/L Anion Gap (10-20) BUN (9-20) mg/dL Creatinine (0.8-1.5) mg/dL Est GFR ( Amer) Est GFR (Non-Af Amer) POC Glucose (mg/dL) 160 H 272 H 104 (65-110) mg/dL Random Glucose (75-110) mg/dL Calcium (8.6-10.4) mg/dl Total Bilirubin (0.2-1.3) mg/dL AST (17-59) U/L ALT (21-72) U/L Alkaline Phosphatase (38-126) U/L Total Protein (6.3-8.3) g/dL Albumin (3.5-5.0) g/dL Globulin (2.2-3.9) gm/dL Albumin/Globulin Ratio (1.0-2.1) Laboratory Results - last 24 hr 05/03/17 05/03/17 05/04/17 16:35 21:08 07:16 WBC RBC Hgb Hct MCV MCH MCHC RDW Plt Count MPV Neut % (Auto) Lymph % (Auto) [place] % (Auto) Eos % (Auto) Baso % (Auto) Neut # (Auto) Lymph # (Auto) [place] # (Auto) Eos # (Auto) Baso # (Auto) Sodium Potassium Chloride Carbon Dioxide Anion Gap BUN Creatinine Est GFR ( Amer) Est GFR (Non-Af Amer) POC Glucose (mg/dL) 104 272 H 160 H Random Glucose Calcium Total Bilirubin AST ALT Alkaline Phosphatase Total Protein Albumin Globulin Albumin/Globulin Ratio 05/04/17 05/04/17 05/04/17 07:58 07:58 11:10 WBC 7.7 RBC 3.64 L Hgb 10.4 L Hct 32.1 L MCV 88.3 MCH 28.5 MCHC 32.2 L RDW 17.6 H Plt Count 222 MPV 9.3 Neut % (Auto) 60.4 Lymph % (Auto) 25.3 [place] % (Auto) 8.8 Eos % (Auto) 4.7 H Baso % (Auto) 0.8 Neut # (Auto) 4.7 Lymph # (Auto) 2.0 [place] # (Auto) 0.7 Eos # (Auto) 0.4 Baso # (Auto) 0.1 Sodium 133 Potassium 6.2 H* D Chloride 95 L Carbon Dioxide 27 Anion Gap 18 BUN 68 H Creatinine 8.1 H* D Est GFR ( Amer) 9 Est GFR (Non-Af Amer) 8 POC Glucose (mg/dL) 238 H Random Glucose 143 H Calcium 7.7 L Total Bilirubin 0.3 AST 23 ALT 21 D Alkaline Phosphatase 94 Total Protein 6.5 Albumin 3.2 L Globulin 3.3 Albumin/Globulin Ratio 1.0 Critical Care Progress Note - Nutrition Nutrition: Nutrition Category Date Time Status Renal Diet [DIET] Diets 05/01/17 Lunch Active Attending/Attestation - Attestation I have personally seen and examined this patient.: Yes I have fully participated in the care of the patient.: Yes I have reviewed all pertinent clinical information: Yes Notes (Text): 05/02/17 14:00 pt is seen examined evaluated agree with resident note
[2017-05-03 05:44] LABS: BASO # 0.1 K/uL (0.0-0.2); EOS # 0.4 K/uL (0.0-0.7); EOS % 4.5 % (0.0-4.0); HEMOGLOBIN 10.9 g/dL (12.0-18.0); LYMPH # 1.7 K/uL (1.0-4.3); LYMPH % 18.8 % (20.0-40.0); MEAN CORPUSCULAR HEMOGLOBIN 28.5 pg (27.0-31.0); MEAN CORPUSCULAR HGB CONC 32.4 g/dL (33.0-37.0); MEAN PLATELET VOLUME 9.3 fL (7.2-11.7); MONO # 0.8 K/uL (0.0-0.8); NEUT % 66.7 % (50.0-75.0); RBC 3.81 Mil/uL (4.40-5.90); RED CELL DISTRIBUTION WIDTH 18.6 % (11.5-14.5); WHITE BLOOD COUNT 8.9 K/uL (4.8-10.8)
[2017-05-03 06:11] LABS: ALBUMIN 3.2 g/dL (3.5-5.0); CALCIUM 7.6 mg/dl (8.6-10.4)
[2017-05-03] MEDS: (Novolog) Insulin Aspart, Recombinant 100 u/ml 10 ml vial SC SCH ×4 (08:00→21:45)
[2017-05-03] MEDS: Pantoprazole 40 mg EC Tab PO SCH (09:54)
--- NOTE | 2017-05-03 11:18 | CP.PCM.PN ---
Subjective - Date & Time of Evaluation Date of Evaluation: 05/03/17 Time of Evaluation: 11:18 - Subjective Subjective: Nephrology Consultation Note Assessment: Stable recurrent nausea/vomiting, Cyclic Emesis Syndrome, marijuana abuse, gastroparesis uncontrolled DM with hypoglycemia and hyperglycemia Diabetic chronic Kidney Disease (E11.22) Hypertensive Chronic Kidney Disease (I12.0) End stage renal disease (N18.6) dependence on hemodialysis (Z99.2) (MWF) via AVF Anemia (D64.9), Hyperphosphatemia (E83.39), Secondary Hyperparathyroidism (E21.1 ), HTN (I12.0) Plan: dialysis tomorrow as per MWF schedule as ordered. Continue with Nephrovite 1 tab /day. Hb 11+ hence no MOHINI at this time Continue with phos binders BP control with meds as ordered. on lisinopril Glycemic control, Dialysis consistent diet Further work up/management as per primary team Dose meds/antibiotics (if needed) for ESRD status. Avoid fleets enema/magnesium based laxatives. pt to abstain from marijuana continue with PPI, pt also on reglan. Thanks for allowing me to participate in care of your patient. Will follow patient with you. Please call if any Qs. d/w team Dr Brenton Larsen Office: [phone] Chief Complaint; pain abdomen Reason for consult; ESRD, HTN HPI: Pt is a 36 y/o M with hx of ESRD on hemodialysis (MWF) via AVF, chronic anemia, hyperphosphatemia, secondary hyperparathyroidism, Diabetes Mellitus, hypertension, recurrent nausea/vomiting and multiple hospitalization for same, came back with nausea/vomitting, abdomen pain and low blood sugar. continue to smoke marijuana Denies chest pain, palpitation, leg swelling c/o pain upper abdomen ROS: Constitutional Symptoms: Denies fever. No chills. No Recent Weight Changes Cardiovascular: No chest pain. There is shortness of breath. No palpitations. Pulmonary: No cough. Gastrointestinal: no abdominal pain now improved nausea. improved vomiting. Denies change in bowel habits. Denies Bleeding All other negative. Physical Examination: General Appearance: comfortable, in no acute respiratory distress, co-operative . Vitals reviewed and noted as below Head; Atraumatic, normocephalic ENT: no ulcers no thrush. Tongue is midline. Oropharynx: no rash or ulcers. EYES: Pupils are equal, round and reactive to light accommodation. Eye muscles and extraocular movement intact. Sclera is anicteric. Neck; supple no lymphadenopathy, no thyromegaly or bruit Lungs: Normal respiratory rate/effort. Breath sounds bilateral equal and clear Heart: Normal rate. s1s2 normal. No rub or gallop. Extremities: no edema. No varicose veins Neurological: Patient is alert, awake and oriented to person, place and time. No focal deficit. Strength bilateral appropriate and equal Skin: Warm and dry. Normal turgor. No rash. Palpitation: Normal elasticity for age Abdomen: Abdomen is soft. Bowel sounds +. There is no epigastric abdominal tenderness, no guarding/rigidity or organomegaly Psych: limited insight and normal affect/mood MSK: no joint tenderness or swelling. Digits and nails normal, no deformity. : kidney or bladder not palpable. Access: AVF Labs/imaging reviewed. Past medical history, past surgical history, family history, social history, allergy reviewed and noted as below Family Hx: no hx of CKD. Non contributory sec HTN work up neg as renin/ioana, metanephrine and renal artery doppler Objective - Vital Signs/Intake and Output Vital Signs (last 24 hours): Temp Pulse Resp BP Pulse Ox 97.3 F L 90 9 L 168/89 H 97 05/03/17 08:00 05/03/17 09:00 05/03/17 09:00 05/03/17 07:38 05/03/17 08:00 Intake and Output: 05/03/17 05/03/17 06:59 18:59 Intake Total 560 0 Output Total 650 0 Balance -90 0 - Medications Medications: Current Medications Amlodipine Besylate (Norvasc) 10 mg PO DAILY [facility] Last Admin: 05/02/17 10:22 Dose: 10 mg Clonidine HCl (Catapres) 0.2 mg PO TID [facility] Last Admin: 05/03/17 09:54 Dose: 0.2 mg Heparin Sodium (Porcine) (Heparin) 5,000 units SC Q8 [facility] Last Admin: 05/03/17 06:13 Dose: 5,000 units Heparin Sodium (Porcine) (Heparin) 2,000 units IVP MWF [facility] Last Admin: 05/02/17 15:13 Dose: 2,000 units Insulin Aspart (Novolog) 0 unit SC ACHS [facility] PRN Reason: Protocol Last Admin: 05/03/17 08:00 Dose: 6 unit Lisinopril (Zestril) 10 mg PO DAILY [facility] Last Admin: 05/03/17 09:54 Dose: 10 mg Metoclopramide HCl (Reglan) 5 mg PO AC [facility] Last Admin: 05/02/17 16:39 Dose: 5 mg Morphine Sulfate (Morphine) 2 mg IVP Q8 PRN PRN Reason: Pain, SEVERE (8-10) Last Admin: 05/03/17 04:15 Dose: 2 mg Pantoprazole Sodium (Protonix Ec Tab) 40 mg PO DAILY [facility] Last Admin: 05/03/17 09:54 Dose: 40 mg Sevelamer Carbonate (Renvela) 1,600 mg PO TIDCC [facility] Last Admin: 05/02/17 16:39 Dose: 1,600 mg Vitamin B Complex/Vit C/Folic Acid (Nephro-Yomi) 1 tab PO 0800 [facility] - Labs Labs: 05/03/17 05:39 05/03/17 05:39 PT 10.1 SECONDS (9.7-12.2) 05/01/17 09:31 INR 0.9 05/01/17 09:31 APTT 30 SECONDS (21-34) 05/01/17 09:31
[2017-05-03] MEDS: Multivitamin Vitamin B Complex (Nephro-Vite) Tab PO SCH (12:42)
[2017-05-03] MEDS ORDERED: Glucagon Recombinant 1 mg Inj IM PRN (15:10)
[2017-05-03] MEDS ORDERED: Dextrose 50% SYRINGE Inj (50 ml) IVP PRN (15:10)
--- NOTE | 2017-05-03 15:12 | CP.PCM.PN ---
Subjective - Date & Time of Evaluation Date of Evaluation: 05/03/17 Time of Evaluation: :20 - Subjective Subjective: Medicine progress note for Dr. Chadwick Patient seen and examined. Patient states he is doing well. He states he believes he took too much insulin at home as he cannot see well to administer properly. Patient states his mother normally gives him his insulin but she was sleeping and he did not want to wake her. Patient states he is eating normally and feels well to go home. Objective - Vital Signs/Intake and Output Vital Signs (last 24 hours): Temp Pulse Resp BP Pulse Ox 98.1 F 92 H 20 123/73 96 05/03/17 14:45 05/03/17 14:45 05/03/17 14:45 05/03/17 14:45 05/03/17 14:45 Intake and Output: 05/03/17 05/03/17 06:59 18:59 Intake Total 560 700 Output Total 650 180 Balance -90 520 - Medications Medications: Current Medications Amlodipine Besylate (Norvasc) 10 mg PO DAILY [facility] Last Admin: 05/03/17 12:39 Dose: Not Given Clonidine HCl (Catapres) 0.2 mg PO TID [facility] Last Admin: 05/03/17 14:47 Dose: 0.2 mg Heparin Sodium (Porcine) (Heparin) 5,000 units SC Q8 [facility] Last Admin: 05/03/17 14:47 Dose: 5,000 units Heparin Sodium (Porcine) (Heparin) 2,000 units IVP MWF [facility] Last Admin: 05/02/17 15:13 Dose: 2,000 units Insulin Aspart (Novolog) 0 unit SC ACHS [facility] PRN Reason: Protocol Last Admin: 05/03/17 11:40 Dose: 6 unit Lisinopril (Zestril) 10 mg PO DAILY [facility] Last Admin: 05/03/17 09:54 Dose: 10 mg Metoclopramide HCl (Reglan) 5 mg PO AC [facility] Last Admin: 05/03/17 12:46 Dose: Not Given Morphine Sulfate (Morphine) 2 mg IVP Q8 PRN PRN Reason: Pain, SEVERE (8-10) Last Admin: 05/03/17 12:40 Dose: 2 mg Pantoprazole Sodium (Protonix Ec Tab) 40 mg PO DAILY [facility] Last Admin: 05/03/17 09:54 Dose: 40 mg Sevelamer Carbonate (Renvela) 1,600 mg PO TIDCC [facility] Last Admin: 05/03/17 12:49 Dose: 1,600 mg Vitamin B Complex/Vit C/Folic Acid (Nephro-Yomi) 1 tab PO 0800 [facility] Last Admin: 05/03/17 12:42 Dose: Not Given - Labs Labs: 05/03/17 05:39 05/03/17 05:39 PT 10.1 SECONDS (9.7-12.2) 05/01/17 09:31 INR 0.9 05/01/17 09:31 APTT 30 SECONDS (21-34) 05/01/17 09:31 - Constitutional Appears: No Acute Distress - Head Exam Head Exam: ATRAUMATIC, NORMOCEPHALIC - Eye Exam Eye Exam: EOMI - ENT Exam ENT Exam: Mucous Membranes Moist - Respiratory Exam Respiratory Exam: Clear to Ausculation Bilateral, NORMAL BREATHING PATTERN - Cardiovascular Exam Cardiovascular Exam: +S1, +S2 - GI/Abdominal Exam GI & Abdominal Exam: Soft, Normal Bowel Sounds. absent: Tenderness - Extremities Exam Additional comments: left upper arm AVF with palpable thrill - Neurological Exam Neurological Exam: Alert, Awake - Psychiatric Exam Psychiatric exam: Normal Affect - Skin Skin Exam: Warm Assessment and Plan - Assessment and Plan (Free Text) Assessment: IDDM with refractory hypoglycemia resolved, patient out of ICU Accuchecks ACHS ISS Novolog 20u BID will add back when patient is able to tolerate normal PO intake Levemir 10 units SC HS hypoglycemia protocol ASA 81mg PO Daily Lisinopril 10mg PO Daily Crestor 2.5mg PO Daily Gastroparesis Patient with poorly controlled diabetes reglan 5mg PO AC Protonix 40mg PO Daily HTN Lisnopril 10mg PO daily Norvasc 10 mg PO Daily Clonidine 0.3 mg PO TID continue to monitor CKD on HD MWF Claims Director, Dr. Larsen, help appreciated Renal diet Renvela 160mg PO TID Nephrovite 1 tab PO QAM Prophylaxis SCDs Protonix 40mg PO Daily Disposition: Patient for discharge after lunch, however patient has no one at home to help administer insulin today. Patient to be discharged home tomorrow. All managements and orders per Dr. Chadwick
[2017-05-03] MEDS: Insulin Detemir 100 units/ml Vial (Levemir) SC SCH (21:44)
[2017-05-04 08:09] LABS: HEMOGLOBIN 10.4 g/dL (12.0-18.0); MEAN CELL VOLUME 88.3 fL (80.0-94.0); MEAN CORPUSCULAR HEMOGLOBIN 28.5 pg (27.0-31.0); MEAN CORPUSCULAR HGB CONC 32.2 g/dL (33.0-37.0); MEAN PLATELET VOLUME 9.3 fL (7.2-11.7); NEUT % 60.4 % (50.0-75.0); RBC 3.64 Mil/uL (4.40-5.90); RED CELL DISTRIBUTION WIDTH 17.6 % (11.5-14.5); WHITE BLOOD COUNT 7.7 K/uL (4.8-10.8)
[2017-05-04 08:10] LABS: BASO # 0.1 K/uL (0.0-0.2); BASO % 0.8 % (0.0-2.0); EOS # 0.4 K/uL (0.0-0.7); EOS % 4.7 % (0.0-4.0); LYMPH % 25.3 % (20.0-40.0); MONO # 0.7 K/uL (0.0-0.8); MONO % 8.8 % (0.0-10.0); NEUT # 4.7 K/uL (1.8-7.0); NRBC % 0.1 % (0.0-2.0)
[2017-05-04 08:35] LABS: ALBUMIN 3.2 g/dL (3.5-5.0); CALCIUM 7.7 mg/dl (8.6-10.4)
[2017-05-04] MEDS: Multivitamin Vitamin B Complex (Nephro-Vite) Tab PO SCH (08:42)
[2017-05-04] MEDS: Pantoprazole 40 mg EC Tab PO SCH ×2 (08:42→10:15)
[2017-05-04] MEDS: (Novolog) Insulin Aspart, Recombinant 100 u/ml 10 ml vial SC SCH ×4 (08:43→21:30)
[2017-05-04] MEDS ORDERED: Sod Polystyrene Sulf 15 gm/60 ml Susp PO ONE (09:26)
--- NOTE | 2017-05-04 09:31 | CP.PCM.PN ---
Subjective - Date & Time of Evaluation Date of Evaluation: 05/04/17 Time of Evaluation: 09:27 - Subjective Subjective: Medicine progress note for Dr. Chadwick's service Patient seen and examined. Patient states he is feeling well and is tolerating diet. Objective - Vital Signs/Intake and Output Vital Signs (last 24 hours): Temp Pulse Resp BP Pulse Ox 97.8 F 82 20 157/86 H 96 05/04/17 08:17 05/04/17 08:17 05/04/17 08:17 05/04/17 08:17 05/04/17 08:17 Intake and Output: 05/04/17 05/04/17 06:59 18:59 Intake Total 200 Balance 200 - Medications Medications: Current Medications Amlodipine Besylate (Norvasc) 10 mg PO DAILY [facility] Last Admin: 05/03/17 12:39 Dose: Not Given Aspirin (Aspirin Chewable) 81 mg PO DAILY [facility] Clonidine HCl (Catapres) 0.2 mg PO TID [facility] Last Admin: 05/03/17 18:26 Dose: 0.2 mg Dextrose (Dextrose 50% Inj) 0 ml IVP .STAT PRN; Protocol PRN Reason: Hypoglycemia Protocol Dextrose (Glutose 15) 15 gm PO .ONCE PRN; Protocol PRN Reason: Hypoglycemia Protocol Glucagon (Glucagen Diagnostic Kit) 1 mg IM .STAT PRN; Protocol PRN Reason: Hypoglycemia Protocol Heparin Sodium (Porcine) (Heparin) 5,000 units SC Q8 [facility] Last Admin: 05/04/17 06:13 Dose: Not Given Heparin Sodium (Porcine) (Heparin) 2,000 units IVP MWF [facility] Last Admin: 05/02/17 15:13 Dose: 2,000 units Dextrose (Dextrose 5% In Water 1000 Ml) 1,000 mls @ 0 mls/hr IV .Q0M PRN; Protocol; Per Protocol PRN Reason: Hypoglycemia Protocol Insulin Aspart (Novolog) 0 unit SC ACHS [facility] PRN Reason: Protocol Last Admin: 05/04/17 08:43 Dose: 1 unit Insulin Detemir (Levemir) 10 unit SC HS [facility] Last Admin: 05/03/17 21:44 Dose: 10 unit Lisinopril (Zestril) 10 mg PO DAILY [facility] Last Admin: 05/03/17 09:54 Dose: 10 mg Metoclopramide HCl (Reglan) 5 mg PO AC [facility] Last Admin: 05/04/17 08:42 Dose: 5 mg Morphine Sulfate (Morphine) 2 mg IVP Q8 PRN PRN Reason: Pain, SEVERE (8-10) Last Admin: 05/04/17 04:30 Dose: 2 mg Pantoprazole Sodium (Protonix Ec Tab) 40 mg PO DAILY [facility] Last Admin: 05/04/17 08:42 Dose: 40 mg Sevelamer Carbonate (Renvela) 1,600 mg PO TIDCC [facility] Last Admin: 05/04/17 08:43 Dose: 1,600 mg Sodium Polystyrene Sulfonate (Kayexalate Susp) 30 gm PO ONCE ONE Stop: 05/04/17 09:27 Vitamin B Complex/Vit C/Folic Acid (Nephro-Yomi) 1 tab PO 0800 [facility] Last Admin: 05/04/17 08:42 Dose: 1 tab - Labs Labs: 05/04/17 07:58 05/04/17 07:58 PT 10.1 SECONDS (9.7-12.2) 05/01/17 09:31 INR 0.9 05/01/17 09:31 APTT 30 SECONDS (21-34) 05/01/17 09:31 - Constitutional Appears: No Acute Distress - Head Exam Head Exam: ATRAUMATIC, NORMOCEPHALIC - Eye Exam Eye Exam: EOMI - ENT Exam ENT Exam: Mucous Membranes Moist - Respiratory Exam Respiratory Exam: Clear to Ausculation Bilateral, NORMAL BREATHING PATTERN - Cardiovascular Exam Cardiovascular Exam: +S1, +S2 - GI/Abdominal Exam GI & Abdominal Exam: Soft, Normal Bowel Sounds. absent: Tenderness - Extremities Exam Extremities Exam: Pedal Edema (trace bilateral lower extremities) Additional comments: left upper extremity AVF with palpable thrill Assessment and Plan - Assessment and Plan (Free Text) Assessment: IDDM with refractory hypoglycemia resolved, patient out of ICU Accuchecks ACHS ISS Novolog 20u BID will add back when patient is able to tolerate normal PO intake Levemir 10 units SC HS hypoglycemia protocol ASA 81mg PO Daily Lisinopril 10mg PO Daily Crestor 2.5mg PO Daily Gastroparesis Patient with poorly controlled diabetes reglan 5mg PO AC Protonix 40mg PO Daily HTN Lisnopril 10mg PO daily Norvasc 10 mg PO Daily Clonidine 0.3 mg PO TID continue to monitor CKD on HD MWF [employer], Dr. Larsen, help appreciated Renal diet Renvela 160mg PO TID Nephrovite 1 tab PO QAM Prophylaxis SCDs Protonix 40mg PO Daily Disposition: Patient for discharge yesterday after lunch, however patient has no one at home to help administer insulin today. Today, patient requesting evaluation for custodial as his mother cannot continue to care for him. Discussed with case management today. All managements and orders per Dr. Chadwick
--- NOTE | 2017-05-04 13:23 | CP.PCM.PN ---
Subjective - Date & Time of Evaluation Date of Evaluation: 05/04/17 Time of Evaluation: 13:22 - Subjective Subjective: Nephrology Consultation Note Assessment: Stable recurrent nausea/vomiting, Cyclic Emesis Syndrome, marijuana abuse, gastroparesis uncontrolled DM with hypoglycemia and hyperglycemia, Hyperkalemia Diabetic chronic Kidney Disease (E11.22) Hypertensive Chronic Kidney Disease (I12.0) End stage renal disease (N18.6) dependence on hemodialysis (Z99.2) (MWF) via AVF Anemia (D64.9), Hyperphosphatemia (E83.39), Secondary Hyperparathyroidism (E21.1 ), HTN (I12.0) Plan: dialysis today as per MWF schedule as ordered. Continue with Nephrovite 1 tab/ day. Hb 10-11+ hence no MOHINI at this time Continue with phos binders BP control with meds as ordered. on lisinopril Glycemic control, Dialysis consistent diet Further work up/management as per primary team Dose meds/antibiotics (if needed) for ESRD status. Avoid fleets enema/magnesium based laxatives. pt to abstain from marijuana continue with PPI, pt also on reglan. [facility] Thanks for allowing me to participate in care of your patient. Will follow patient with you. Please call if any Qs. Dr Brenton Larsen Office: [phone] Reason for consult; ESRD, HTN HPI: Pt is a 36 y/o M with hx of ESRD on hemodialysis (MWF) via AVF, chronic anemia, hyperphosphatemia, secondary hyperparathyroidism, Diabetes Mellitus, hypertension, recurrent nausea/vomiting and multiple hospitalization for same, came back with nausea/vomitting, abdomen pain and low blood sugar. continue to smoke marijuana Denies chest pain, palpitation, leg swelling c/o pain upper abdomen ROS: Constitutional Symptoms: Denies fever. No chills. No Recent Weight Changes Cardiovascular: No chest pain. There is shortness of breath. No palpitations. Pulmonary: No cough. Gastrointestinal: no abdominal pain now improved nausea. improved vomiting. Denies change in bowel habits. Denies Bleeding All other negative. Physical Examination: General Appearance: comfortable, in no acute respiratory distress, co-operative . Vitals reviewed and noted as below Head; Atraumatic, normocephalic ENT: no ulcers no thrush. Tongue is midline. Oropharynx: no rash or ulcers. EYES: Pupils are equal, round and reactive to light accommodation. Eye muscles and extraocular movement intact. Sclera is anicteric. Neck; supple no lymphadenopathy, no thyromegaly or bruit Lungs: Normal respiratory rate/effort. Breath sounds bilateral equal and clear Heart: Normal rate. s1s2 normal. No rub or gallop. Extremities: 1-2+ edema. No varicose veins Neurological: Patient is alert, awake and oriented to person, place and time. No focal deficit. Strength bilateral appropriate and equal Skin: Warm and dry. Normal turgor. No rash. Palpitation: Normal elasticity for age Abdomen: Abdomen is soft. Bowel sounds +. There is no epigastric abdominal tenderness, no guarding/rigidity or organomegaly Psych: limited insight and normal affect/mood MSK: no joint tenderness or swelling. Digits and nails normal, no deformity. : kidney or bladder not palpable. Access: AVF Labs/imaging reviewed. Past medical history, past surgical history, family history, social history, allergy reviewed and noted as below Family Hx: no hx of CKD. Non contributory sec HTN work up neg as renin/ioana, metanephrine and renal artery doppler Objective - Vital Signs/Intake and Output Vital Signs (last 24 hours): Temp Pulse Resp BP Pulse Ox 97.8 F 82 20 157/86 H 97 05/04/17 08:17 05/04/17 09:15 05/04/17 08:17 05/04/17 08:17 05/04/17 09:15 Intake and Output: 05/04/17 05/04/17 06:59 18:59 Intake Total 200 Balance 200 - Medications Medications: Current Medications Amlodipine Besylate (Norvasc) 10 mg PO DAILY [facility] Last Admin: 05/04/17 10:15 Dose: Not Given Aspirin (Aspirin Chewable) 81 mg PO DAILY [facility] Last Admin: 05/04/17 10:18 Dose: 81 mg Clonidine HCl (Catapres) 0.2 mg PO TID [facility] Last Admin: 05/04/17 10:15 Dose: Not Given Dextrose (Dextrose 50% Inj) 0 ml IVP .STAT PRN; Protocol PRN Reason: Hypoglycemia Protocol Dextrose (Glutose 15) 15 gm PO .ONCE PRN; Protocol PRN Reason: Hypoglycemia Protocol Glucagon (Glucagen Diagnostic Kit) 1 mg IM .STAT PRN; Protocol PRN Reason: Hypoglycemia Protocol Heparin Sodium (Porcine) (Heparin) 5,000 units SC Q8 [facility] Last Admin: 05/04/17 06:13 Dose: Not Given Heparin Sodium (Porcine) (Heparin) 2,000 units IVP MWF [facility] Last Admin: 05/02/17 15:13 Dose: 2,000 units Dextrose (Dextrose 5% In Water 1000 Ml) 1,000 mls @ 0 mls/hr IV .Q0M PRN; Protocol; Per Protocol PRN Reason: Hypoglycemia Protocol Insulin Aspart (Novolog) 0 unit SC ACHS [facility] PRN Reason: Protocol Last Admin: 05/04/17 11:53 Dose: 2 unit Insulin Detemir (Levemir) 10 unit SC HS [facility] Last Admin: 05/03/17 21:44 Dose: 10 unit Lisinopril (Zestril) 10 mg PO DAILY [facility] Last Admin: 05/04/17 10:14 Dose: Not Given Metoclopramide HCl (Reglan) 5 mg PO AC [facility] Last Admin: 05/04/17 11:53 Dose: 5 mg Morphine Sulfate (Morphine) 2 mg IVP Q8 PRN PRN Reason: Pain, SEVERE (8-10) Last Admin: 05/04/17 12:33 Dose: 2 mg Pantoprazole Sodium (Protonix Ec Tab) 40 mg PO DAILY [facility] Last Admin: 05/04/17 10:15 Dose: Not Given Sevelamer Carbonate (Renvela) 1,600 mg PO TIDCC [facility] Last Admin: 05/04/17 11:52 Dose: 1,600 mg Vitamin B Complex/Vit C/Folic Acid (Nephro-Yomi) 1 tab PO 0800 [facility] Last Admin: 05/04/17 08:42 Dose: 1 tab - Labs Labs: 05/04/17 07:58 05/04/17 07:58 PT 10.1 SECONDS (9.7-12.2) 05/01/17 09:31 INR 0.9 05/01/17 09:31 APTT 30 SECONDS (21-34) 05/01/17 09:31
[2017-05-04 17:49] LABS: CALCIUM 8.2 mg/dl (8.6-10.4)
[2017-05-04] MEDS: Insulin Detemir 100 units/ml Vial (Levemir) SC SCH (21:28)
--- NOTE | 2017-05-04 21:41 | CARD ---
APPROVED REPORT EKG Measurement Heart [id number] <Conclusion> Normal sinus rhythm Possible Left atrial enlargement Left ventricular hypertrophy Nonspecific T wave abnormality Prolonged QT Abnormal ECG
[2017-05-05] MEDS: Morphine 4 MG/ML VIAL IVP PRN ×3 (05:28→21:53)
[2017-05-05 07:15] LABS: BASO # 0.1 K/uL (0.0-0.2); BASO % 0.7 % (0.0-2.0); EOS # 0.5 K/uL (0.0-0.7); EOS % 5.3 % (0.0-4.0); HEMOGLOBIN 10.5 g/dL (12.0-18.0); LYMPH # 1.6 K/uL (1.0-4.3); LYMPH % 15.9 % (20.0-40.0); MEAN CELL VOLUME 87.3 fL (80.0-94.0); MEAN CORPUSCULAR HEMOGLOBIN 28.4 pg (27.0-31.0); MEAN CORPUSCULAR HGB CONC 32.5 g/dL (33.0-37.0); MEAN PLATELET VOLUME 9.4 fL (7.2-11.7); MONO # 0.8 K/uL (0.0-0.8); MONO % 7.9 % (0.0-10.0); NEUT % 70.2 % (50.0-75.0); RBC 3.69 Mil/uL (4.40-5.90); RED CELL DISTRIBUTION WIDTH 17.4 % (11.5-14.5)
[2017-05-05] MEDS: Multivitamin Vitamin B Complex (Nephro-Vite) Tab PO SCH (08:04)
[2017-05-05] MEDS: (Novolog) Insulin Aspart, Recombinant 100 u/ml 10 ml vial SC SCH ×6 (08:04→21:55)
[2017-05-05 08:12] LABS: ALBUMIN 3.1 g/dL (3.5-5.0); CALCIUM 7.9 mg/dl (8.6-10.4)
[2017-05-05] MEDS ORDERED: Sod Polystyrene Sulf 15 gm/60 ml Susp PO ONE (08:57)
--- NOTE | 2017-05-05 09:43 | CP.PCM.PN ---
Subjective - Date & Time of Evaluation Date of Evaluation: 05/05/17 Time of Evaluation: 09:43 - Subjective Subjective: Medicine progress note for Dr. Chadwick's service Patient states he is feeling well. Patient denies nausea, vomiting. Patient states he is pacing himself with diet. Objective - Vital Signs/Intake and Output Vital Signs (last 24 hours): Temp Pulse Resp BP Pulse Ox 98.3 F 81 20 148/84 97 05/05/17 07:55 05/05/17 07:55 05/05/17 07:55 05/05/17 07:55 05/05/17 07:55 Intake and Output: 05/05/17 05/05/17 06:59 18:59 Intake Total 500 Balance 500 - Medications Medications: Current Medications Amlodipine Besylate (Norvasc) 10 mg PO DAILY [facility] Last Admin: 05/04/17 18:00 Dose: 10 mg Aspirin (Aspirin Chewable) 81 mg PO DAILY [facility] Last Admin: 05/04/17 10:18 Dose: 81 mg Clonidine HCl (Catapres) 0.2 mg PO TID [facility] Last Admin: 05/04/17 19:35 Dose: 0.2 mg Dextrose (Dextrose 50% Inj) 0 ml IVP .STAT PRN; Protocol PRN Reason: Hypoglycemia Protocol Dextrose (Glutose 15) 15 gm PO .ONCE PRN; Protocol PRN Reason: Hypoglycemia Protocol Glucagon (Glucagen Diagnostic Kit) 1 mg IM .STAT PRN; Protocol PRN Reason: Hypoglycemia Protocol Heparin Sodium (Porcine) (Heparin) 5,000 units SC Q8 [facility] Last Admin: 05/05/17 05:30 Dose: Not Given Heparin Sodium (Porcine) (Heparin) 2,000 units IVP [facility] Stop: 05/13/17 10:31 Dextrose (Dextrose 5% In Water 1000 Ml) 1,000 mls @ 0 mls/hr IV .Q0M PRN; Protocol; Per Protocol PRN Reason: Hypoglycemia Protocol Insulin Aspart (Novolog) 0 unit SC ACHS [facility] PRN Reason: Protocol Last Admin: 05/05/17 08:04 Dose: 1 unit Insulin Aspart (Novolog) 15 unit SC BID [facility] Insulin Detemir (Levemir) 10 unit SC HS [facility] Last Admin: 05/04/17 21:28 Dose: 10 unit Lisinopril (Zestril) 10 mg PO DAILY [facility] Last Admin: 05/04/17 18:00 Dose: 10 mg Metoclopramide HCl (Reglan) 5 mg PO AC [facility] Last Admin: 05/05/17 08:04 Dose: 5 mg Morphine Sulfate (Morphine) 2 mg IVP Q8 PRN PRN Reason: Pain, SEVERE (8-10) Last Admin: 05/05/17 05:28 Dose: 2 mg Pantoprazole Sodium (Protonix Ec Tab) 40 mg PO DAILY [facility] Last Admin: 05/04/17 10:15 Dose: Not Given Sevelamer Carbonate (Renvela) 1,600 mg PO TIDCC [facility] Last Admin: 05/05/17 08:04 Dose: 1,600 mg Vitamin B Complex/Vit C/Folic Acid (Nephro-Yomi) 1 tab PO 0800 [facility] Last Admin: 05/05/17 08:04 Dose: 1 tab - Labs Labs: 05/05/17 06:57 05/05/17 06:57 PT 10.1 SECONDS (9.7-12.2) 05/01/17 09:31 INR 0.9 05/01/17 09:31 APTT 30 SECONDS (21-34) 05/01/17 09:31 - Constitutional Appears: No Acute Distress - Head Exam Head Exam: ATRAUMATIC, NORMOCEPHALIC - Eye Exam Eye Exam: EOMI - ENT Exam ENT Exam: Mucous Membranes Moist - Respiratory Exam Respiratory Exam: Clear to Ausculation Bilateral - Cardiovascular Exam Cardiovascular Exam: +S1, +S2 - GI/Abdominal Exam GI & Abdominal Exam: Soft, Normal Bowel Sounds. absent: Tenderness - Extremities Exam Additional comments: left upper arm AVF with palpable thrill - Neurological Exam Neurological Exam: Alert - Psychiatric Exam Psychiatric exam: Normal Affect - Skin Skin Exam: Warm Assessment and Plan - Assessment and Plan (Free Text) Assessment: IDDM with refractory hypoglycemia resolved, patient out of ICU Accuchecks ACHS ISS Novolog 15u BID started today Levemir 10 units SC HS hypoglycemia protocol ASA 81mg PO Daily Lisinopril 10mg PO Daily Crestor 2.5mg PO Daily Gastroparesis Patient with poorly controlled diabetes reglan 5mg PO AC Protonix 40mg PO Daily HTN Lisnopril 10mg PO daily Norvasc 10 mg PO Daily Clonidine 0.3 mg PO TID continue to monitor CKD on HD MWF Group President, Dr. Larsen, help appreciated Renal diet Renvela 160mg PO TID Nephrovite 1 tab PO QAM Prophylaxis SCDs Protonix 40mg PO Daily Disposition: Patient initially for discharge 05/03, however patient has no one at home to help administer insulin today. On 05/04, patient requesting evaluation for snf as his mother cannot continue to care for him. Discussed with case management yesterday and today; discussion with patient's mother pending to determine plan for care. Will try to get coverage for insulin pens to make insulin administration easier for patient. All managements and orders per Dr. Chadwick
[2017-05-05] MEDS: Pantoprazole 40 mg EC Tab PO SCH (09:47)
[2017-05-05 14:39] LABS: CALCIUM 8.1 mg/dl (8.6-10.4)
--- NOTE | 2017-05-05 15:49 | CP.PCM.PN ---
Subjective - Date & Time of Evaluation Date of Evaluation: 05/05/17 Time of Evaluation: 15:48 - Subjective Subjective: Nephrology Consultation Note Assessment: Stable recurrent nausea/vomiting, Cyclic Emesis Syndrome, marijuana abuse, gastroparesis uncontrolled DM with hypoglycemia and hyperglycemia, Hyperkalemia ? non compliant to diet Diabetic chronic Kidney Disease (E11.22) Hypertensive Chronic Kidney Disease (I12.0) End stage renal disease (N18.6) dependence on hemodialysis (Z99.2) (MWF) via AVF Anemia (D64.9), Hyperphosphatemia (E83.39), Secondary Hyperparathyroidism (E21.1 ), HTN (I12.0) Plan: dialysis today extra session due to high K. next HD tomorrow as per MWF schedule as ordered. Continue with Nephrovite 1 tab/day. Hb 10-11+ hence no MOHINI at this time Continue with phos binders BP control with meds as ordered. on lisinopril, will stop due to hyperkalemia Glycemic control, Dialysis consistent diet Further work up/management as per primary team Dose meds/antibiotics (if needed) for ESRD status. Avoid fleets enema/magnesium based laxatives. pt to abstain from marijuana continue with PPI, pt also on reglan. pt is requesting to go to a [facility] low K diet/renal diet compliance reinforced with pt Thanks for allowing me to participate in care of your patient. Will follow patient with you. Please call if any Qs. Dr Brenton Larsen Office: [phone] Reason for consult; ESRD, HTN HPI: Pt is a 36 y/o M with hx of ESRD on hemodialysis (MWF) via AVF, chronic anemia, hyperphosphatemia, secondary hyperparathyroidism, Diabetes Mellitus, hypertension, recurrent nausea/vomiting and multiple hospitalization for same, came back with nausea/vomitting, abdomen pain and low blood sugar. continue to smoke marijuana Denies chest pain, palpitation, leg swelling c/o pain upper abdomen ROS: Constitutional Symptoms: Denies fever. No chills. No Recent Weight Changes Cardiovascular: No chest pain. There is shortness of breath. No palpitations. Pulmonary: No cough. Gastrointestinal: no abdominal pain now improved nausea. improved vomiting. Denies change in bowel habits. Denies Bleeding All other negative. Physical Examination: General Appearance: comfortable, in no acute respiratory distress, co-operative . Vitals reviewed and noted as below Head; Atraumatic, normocephalic ENT: no ulcers no thrush. Tongue is midline. Oropharynx: no rash or ulcers. EYES: Pupils are equal, round and reactive to light accommodation. Eye muscles and extraocular movement intact. Sclera is anicteric. Neck; supple no lymphadenopathy, no thyromegaly or bruit Lungs: Normal respiratory rate/effort. Breath sounds bilateral equal and clear Heart: Normal rate. s1s2 normal. No rub or gallop. Extremities: 1-2+ edema. No varicose veins Neurological: Patient is alert, awake and oriented to person, place and time. No focal deficit. Strength bilateral appropriate and equal Skin: Warm and dry. Normal turgor. No rash. Palpitation: Normal elasticity for age Abdomen: Abdomen is soft. Bowel sounds +. There is no epigastric abdominal tenderness, no guarding/rigidity or organomegaly Psych: limited insight and normal affect/mood MSK: no joint tenderness or swelling. Digits and nails normal, no deformity. : kidney or bladder not palpable. Access: AVF Labs/imaging reviewed. Past medical history, past surgical history, family history, social history, allergy reviewed and noted as below Family Hx: no hx of CKD. Non contributory sec HTN work up neg as renin/ioana, metanephrine and renal artery doppler Objective - Vital Signs/Intake and Output Vital Signs (last 24 hours): Temp Pulse Resp BP Pulse Ox 97.7 F 84 18 167/91 H 95 05/05/17 14:15 05/05/17 14:15 05/05/17 14:15 05/05/17 14:45 05/05/17 14:15 Intake and Output: 05/05/17 05/05/17 06:59 18:59 Intake Total 500 500 Balance 500 500 - Medications Medications: Current Medications Amlodipine Besylate (Norvasc) 10 mg PO DAILY [facility] Last Admin: 05/05/17 09:47 Dose: 10 mg Aspirin (Aspirin Chewable) 81 mg PO DAILY [facility] Last Admin: 05/05/17 09:47 Dose: 81 mg Clonidine HCl (Catapres) 0.2 mg PO TID [facility] Last Admin: 05/05/17 13:30 Dose: 0.2 mg Dextrose (Dextrose 50% Inj) 0 ml IVP .STAT PRN; Protocol PRN Reason: Hypoglycemia Protocol Dextrose (Glutose 15) 15 gm PO .ONCE PRN; Protocol PRN Reason: Hypoglycemia Protocol Glucagon (Glucagen Diagnostic Kit) 1 mg IM .STAT PRN; Protocol PRN Reason: Hypoglycemia Protocol Heparin Sodium (Porcine) (Heparin) 5,000 units SC Q8 [facility] Last Admin: 05/05/17 13:29 Dose: Not Given Heparin Sodium (Porcine) (Heparin) 2,000 units IVP MWF [facility] Stop: 05/13/17 10:31 Dextrose (Dextrose 5% In Water 1000 Ml) 1,000 mls @ 0 mls/hr IV .Q0M PRN; Protocol; Per Protocol PRN Reason: Hypoglycemia Protocol Insulin Aspart (Novolog) 0 unit SC ACHS [facility] PRN Reason: Protocol Last Admin: 05/05/17 13:29 Dose: 2 unit Insulin Aspart (Novolog) 15 unit SC BID [facility] Last Admin: 05/05/17 09:51 Dose: Not Given Insulin Detemir (Levemir) 10 unit SC HS [facility] Last Admin: 05/04/17 21:28 Dose: 10 unit Metoclopramide HCl (Reglan) 5 mg PO AC [facility] Last Admin: 05/05/17 13:29 Dose: 5 mg Morphine Sulfate (Morphine) 2 mg IVP Q8 PRN PRN Reason: Pain, SEVERE (8-10) Last Admin: 05/05/17 13:50 Dose: 2 mg Pantoprazole Sodium (Protonix Ec Tab) 40 mg PO DAILY [facility] Last Admin: 05/05/17 09:47 Dose: 40 mg Sevelamer Carbonate (Renvela) 1,600 mg PO TIDCC [facility] Last Admin: 05/05/17 13:29 Dose: 1,600 mg Vitamin B Complex/Vit C/Folic Acid (Nephro-Yomi) 1 tab PO 0800 [facility] Last Admin: 05/05/17 08:04 Dose: 1 tab - Labs Labs: 05/05/17 06:57 05/05/17 13:53 PT 10.1 SECONDS (9.7-12.2) 05/01/17 09:31 INR 0.9 05/01/17 09:31 APTT 30 SECONDS (21-34) 05/01/17 09:31
[2017-05-05] MEDS: Insulin Detemir 100 units/ml Vial (Levemir) SC SCH (22:03)
[2017-05-06] MEDS: Morphine 4 MG/ML VIAL IVP PRN ×2 (05:35→14:24)
[2017-05-06 07:47] LABS: BASO # 0.1 K/uL (0.0-0.2); BASO % 0.7 % (0.0-2.0); EOS # 0.3 K/uL (0.0-0.7); EOS % 2.7 % (0.0-4.0); HEMOGLOBIN 10.1 g/dL (12.0-18.0); LYMPH # 1.3 K/uL (1.0-4.3); LYMPH % 11.9 % (20.0-40.0); MEAN CELL VOLUME 86.9 fL (80.0-94.0); MEAN CORPUSCULAR HEMOGLOBIN 28.3 pg (27.0-31.0); MEAN CORPUSCULAR HGB CONC 32.5 g/dL (33.0-37.0); MEAN PLATELET VOLUME 9.6 fL (7.2-11.7); MONO # 1.3 K/uL (0.0-0.8); MONO % 11.4 % (0.0-10.0); NEUT # 8.2 K/uL (1.8-7.0); NEUT % 73.3 % (50.0-75.0); RBC 3.59 Mil/uL (4.40-5.90); RED CELL DISTRIBUTION WIDTH 17.7 % (11.5-14.5); WHITE BLOOD COUNT 11.2 K/uL (4.8-10.8)
[2017-05-06 07:52] VITALS: O2SAT 97
--- NOTE | 2017-05-06 07:56 | CP.PCM.PN ---
Subjective - Date & Time of Evaluation Date of Evaluation: 05/06/17 Time of Evaluation: 07:58 - Subjective Subjective: Complaining of less nausea and this abdominal pain Vital sign noted to be acceptable No vomiting or diarrhea Appetite improving Objective - Vital Signs/Intake and Output Vital Signs (last 24 hours): Temp Pulse Resp BP Pulse Ox 98.7 F 88 20 159/89 H 97 05/06/17 07:51 05/06/17 07:51 05/06/17 07:51 05/06/17 07:51 05/06/17 07:51 Intake and Output: 05/06/17 05/06/17 06:59 18:59 Intake Total 820 Balance 820 - Medications Medications: Current Medications Amlodipine Besylate (Norvasc) 10 mg PO DAILY [facility] Last Admin: 05/05/17 09:47 Dose: 10 mg Aspirin (Aspirin Chewable) 81 mg PO DAILY [facility] Last Admin: 05/05/17 09:47 Dose: 81 mg Clonidine HCl (Catapres) 0.2 mg PO TID [facility] Last Admin: 05/05/17 17:46 Dose: 0.2 mg Dextrose (Dextrose 50% Inj) 0 ml IVP .STAT PRN; Protocol PRN Reason: Hypoglycemia Protocol Dextrose (Glutose 15) 15 gm PO .ONCE PRN; Protocol PRN Reason: Hypoglycemia Protocol Glucagon (Glucagen Diagnostic Kit) 1 mg IM .STAT PRN; Protocol PRN Reason: Hypoglycemia Protocol Heparin Sodium (Porcine) (Heparin) 5,000 units SC Q8 [facility] Last Admin: 05/06/17 05:35 Dose: Not Given Heparin Sodium (Porcine) (Heparin) 2,000 units IVP [facility] Stop: 05/13/17 10:31 Dextrose (Dextrose 5% In Water 1000 Ml) 1,000 mls @ 0 mls/hr IV .Q0M PRN; Protocol; Per Protocol PRN Reason: Hypoglycemia Protocol Insulin Aspart (Novolog) 0 unit SC ACHS [facility] PRN Reason: Protocol Last Admin: 05/05/17 21:55 Dose: Not Given Insulin Aspart (Novolog) 15 unit SC BID [facility] Last Admin: 05/05/17 17:51 Dose: 15 unit Insulin Detemir (Levemir) 10 unit SC HS [facility] Last Admin: 05/05/17 22:03 Dose: Not Given Metoclopramide HCl (Reglan) 5 mg PO AC [facility] Last Admin: 05/06/17 06:30 Dose: 5 mg Morphine Sulfate (Morphine) 2 mg IVP Q8 PRN PRN Reason: Pain, SEVERE (8-10) Last Admin: 05/06/17 05:35 Dose: 2 mg Pantoprazole Sodium (Protonix Ec Tab) 40 mg PO DAILY [facility] Last Admin: 05/05/17 09:47 Dose: 40 mg Sevelamer Carbonate (Renvela) 1,600 mg PO TIDCC [facility] Last Admin: 05/05/17 17:49 Dose: 1,600 mg Vitamin B Complex/Vit C/Folic Acid (Nephro-Yomi) 1 tab PO 0800 [facility] Last Admin: 05/05/17 08:04 Dose: 1 tab - Labs Labs: 05/06/17 07:34 05/05/17 13:53 PT 10.1 SECONDS (9.7-12.2) 05/01/17 09:31 INR 0.9 05/01/17 09:31 APTT 30 SECONDS (21-34) 05/01/17 09:31 - Constitutional Appears: No Acute Distress - ENT Exam ENT Exam: Mucous Membranes Moist - Neck Exam Neck Exam: absent: Lymphadenopathy - Respiratory Exam Respiratory Exam: NORMAL BREATHING PATTERN. absent: Chest Wall Tenderness - GI/Abdominal Exam GI & Abdominal Exam: Soft. absent: Normal Bowel Sounds - Extremities Exam Extremities Exam: absent: Calf Tenderness - Back Exam Back Exam: absent: CVA tenderness (L), CVA tenderness (R) - Neurological Exam Neurological Exam: Alert - Psychiatric Exam Psychiatric exam: Normal Affect - Skin Skin Exam: absent: Cyanosis Assessment and Plan (1) ESRD (end stage renal disease) on dialysis Assessment & Plan: recurrent nausea/vomiting, Cyclic Emesis Syndrome, marijuana abuse, gastroparesis uncontrolled DM with hypoglycemia and hyperglycemia, Hyperkalemia ? non compliant to diet Diabetic chronic Kidney Disease (E11.22) Hypertensive Chronic Kidney Disease (I12.0) End stage renal disease (N18.6) dependence on hemodialysis (Z99.2) (MWF) via AVF Anemia (D64.9), Hyperphosphatemia (E83.39), Secondary Hyperparathyroidism (E21.1 ), HTN (I12.0) patient is scheduled to have hemodialysis shortly Patient had external hemodialysis yesterday because of the hyperkalemia Patient remained noncompliance with all the medication continue monitoring Patient has multitude of admissions to the hospital for the same problem because of the Marijuana. Status: Chronic (2) HTN (hypertension) Status: Chronic (3) Gastroparesis due to secondary diabetes Status: Resolved
[2017-05-06 08:08] LABS: ALB/GLOB RATIO 0.9 (1.0-2.1); ALBUMIN 3.1 g/dL (3.5-5.0); CALCIUM 7.9 mg/dl (8.6-10.4)
[2017-05-06] MEDS: Multivitamin Vitamin B Complex (Nephro-Vite) Tab PO SCH (08:24)
[2017-05-06] MEDS: (Novolog) Insulin Aspart, Recombinant 100 u/ml 10 ml vial SC SCH ×5 (08:26→17:45)
[2017-05-06] MEDS: Pantoprazole 40 mg EC Tab PO SCH (09:55)
--- NOTE | 2017-05-06 10:44 | CP.PCM.PN ---
Subjective - Date & Time of Evaluation Date of Evaluation: 05/06/17 Time of Evaluation: 10:22 - Subjective Subjective: PGY-[address] Chadwick Patient seen and examined at bedside. Patient is eating and drinking well. Patient denies nausea, vomiting. Patient is confident that he will be more careful of insulin administration. Objective - Vital Signs/Intake and Output Vital Signs (last 24 hours): Temp Pulse Resp BP Pulse Ox 98.7 F 88 20 159/89 H 97 05/06/17 07:51 05/06/17 07:51 05/06/17 07:51 05/06/17 07:51 05/06/17 07:51 Intake and Output: 05/06/17 05/06/17 06:59 18:59 Intake Total 820 Balance 820 - Medications Medications: Current Medications Amlodipine Besylate (Norvasc) 10 mg PO DAILY [facility] Last Admin: 05/06/17 09:53 Dose: 10 mg Aspirin (Aspirin Chewable) 81 mg PO DAILY [facility] Last Admin: 05/06/17 09:53 Dose: 81 mg Clonidine HCl (Catapres) 0.2 mg PO TID [facility] Last Admin: 05/06/17 09:54 Dose: Not Given Dextrose (Dextrose 50% Inj) 0 ml IVP .STAT PRN; Protocol PRN Reason: Hypoglycemia Protocol Dextrose (Glutose 15) 15 gm PO .ONCE PRN; Protocol PRN Reason: Hypoglycemia Protocol Glucagon (Glucagen Diagnostic Kit) 1 mg IM .STAT PRN; Protocol PRN Reason: Hypoglycemia Protocol Heparin Sodium (Porcine) (Heparin) 5,000 units SC Q8 [facility] Last Admin: 05/06/17 05:35 Dose: Not Given Heparin Sodium (Porcine) (Heparin) 2,000 units IVP F [facility] Stop: 05/13/17 10:31 Dextrose (Dextrose 5% In Water 1000 Ml) 1,000 mls @ 0 mls/hr IV .Q0M PRN; Protocol; Per Protocol PRN Reason: Hypoglycemia Protocol Insulin Aspart (Novolog) 0 unit SC ACHS [facility] PRN Reason: Protocol Last Admin: 05/06/17 08:26 Dose: 3 unit Insulin Aspart (Novolog) 15 unit SC BID [facility] Last Admin: 05/06/17 09:54 Dose: Not Given Insulin Detemir (Levemir) 10 unit SC HS [facility] Last Admin: 05/05/17 22:03 Dose: Not Given Metoclopramide HCl (Reglan) 5 mg PO AC [facility] Last Admin: 05/06/17 06:30 Dose: 5 mg Morphine Sulfate (Morphine) 2 mg IVP Q8 PRN PRN Reason: Pain, SEVERE (8-10) Last Admin: 05/06/17 05:35 Dose: 2 mg Pantoprazole Sodium (Protonix Ec Tab) 40 mg PO DAILY [facility] Last Admin: 05/06/17 09:55 Dose: 40 mg Sevelamer Carbonate (Renvela) 1,600 mg PO TIDCC [facility] Last Admin: 05/06/17 08:30 Dose: 1,600 mg Vitamin B Complex/Vit C/Folic Acid (Nephro-Yomi) 1 tab PO 0800 [facility] Last Admin: 05/06/17 08:24 Dose: 1 tab - Labs Labs: 05/06/17 07:34 05/06/17 07:34 PT 10.1 SECONDS (9.7-12.2) 05/01/17 09:31 INR 0.9 05/01/17 09:31 APTT 30 SECONDS (21-34) 05/01/17 09:31 - Additional Findings Additional findings: - Constitutional Appears: No Acute Distress - Head Exam Head Exam: ATRAUMATIC, NORMOCEPHALIC - Eye Exam Eye Exam: EOMI - ENT Exam ENT Exam: Mucous Membranes Moist - Respiratory Exam Respiratory Exam: Clear to Ausculation Bilateral - Cardiovascular Exam Cardiovascular Exam: +S1, +S2 - GI/Abdominal Exam GI & Abdominal Exam: Soft, Normal Bowel Sounds. absent: Tenderness - Extremities Exam Additional comments: left upper arm AVF with palpable thrill - Neurological Exam Neurological Exam: Alert - Psychiatric Exam Psychiatric exam: Normal Affect - Skin Skin Exam: Warm Assessment and Plan - Assessment and Plan (Free Text) Assessment: IDDM with refractory hypoglycemia resolved, patient out of ICU Accuchecks ACHS ISS Novolog 15u BID started today Levemir 10 units SC HS hypoglycemia protocol ASA 81mg PO Daily Lisinopril 10mg PO Daily Crestor 2.5mg PO Daily Gastroparesis Patient with poorly controlled diabetes reglan 5mg PO AC Protonix 40mg PO Daily HTN Lisnopril 10mg PO daily Norvasc 10 mg PO Daily Clonidine 0.3 mg PO TID continue to monitor CKD on HD MWF [employer] Agent, Dr. Larsen, help appreciated Renal diet Renvela 160mg PO TID Nephrovite 1 tab PO QAM Prophylaxis SCDs Protonix 40mg PO Daily Disposition: Discussed with patient's mother extensively about the importance of correct insulin use. Mother agreed to finished the current regular insulin before switching back to the insulin pen. Scripts in patient's chart for insulin pens to make insulin administration easier for patient. Patient may be discharge home after dialysis today. All managements and orders per Dr. Chadwick
[2017-05-06 14:04] VITALS: PULSE 84; RESP 16; TEMP 98.3
[2017-05-06 18:16] VITALS: BP 158/86
== END 2017-05-06 19:23 | disposition home or self-care (01) | DRG 638 ==
LOC: C.ER 08:27 → C.9E 11:33 → C.9I 12:00 → C.3T 05-03 13:24
PROVIDERS: ADMIT Internal Medicine Pulmonary Disease; ATTEND Internal Medicine Pulmonary Disease
PROC: 5A1D70Z Performance of Urinary Filtration, Intermittent, Less than 6 Hours Per Day (ICD-10-PCS; principal; 2017-05-02)
PROC: 5A1D70Z Performance of Urinary Filtration, Intermittent, Less than 6 Hours Per Day (ICD-10-PCS; 2017-05-04)
PROC: 5A1D70Z Performance of Urinary Filtration, Intermittent, Less than 6 Hours Per Day (ICD-10-PCS; 2017-05-05)
PROC: 5A1D70Z Performance of Urinary Filtration, Intermittent, Less than 6 Hours Per Day (ICD-10-PCS; 2017-05-06)
DX: E10.649 Type 1 diabetes mellitus with hypoglycemia without coma (principal); I13.2 Hypertensive heart and chronic kidney disease with heart failure and with stage 5 chronic kidney disease, or end stage renal disease; K31.84 Gastroparesis; E10.22 Type 1 diabetes mellitus with diabetic chronic kidney disease; E10.43 Type 1 diabetes mellitus with diabetic autonomic (poly)neuropathy; E83.39 Other disorders of phosphorus metabolism; E87.5 Hyperkalemia; N18.6 End stage renal disease; E21.1 Secondary hyperparathyroidism, not elsewhere classified; F12.20 Cannabis dependence, uncomplicated; D64.9 Anemia, unspecified; E78.00 Pure hypercholesterolemia, unspecified; H54.7 Unspecified visual loss; G43.A0 Cyclical vomiting, in migraine, not intractable; I50.9 Heart failure, unspecified; N25.81 Secondary hyperparathyroidism of renal origin; K31.89 Other diseases of stomach and duodenum; R11.10 Vomiting, unspecified; R68.0 Hypothermia, not associated with low environmental temperature; R56.9 Unspecified convulsions; Z53.20 Procedure and treatment not carried out because of patient's decision for unspecified reasons; Z79.4 Long term (current) use of insulin; Z79.82 Long term (current) use of aspirin; Z79.899 Other long term (current) drug therapy; Z99.2 Dependence on renal dialysis

== ENCOUNTER 2017-05-07 04:16 | Inpatient (IN) | payer MEDICARE, MEDICAID ==
--- NOTE | 2017-05-07 04:17 | C.PDOC ---
History Of Present Illness 36 y/o male with PMHx significant of Anemia, CHF, Diabetes (type I; ), Gastritis (gastroparesis), HTN, Hypercholesterolemia, Peripheral Edema, End Stage Renal Disease, Chronic Kidney Disease and is on dialysis Tuesday, Tuesday , and Tuesday presents to ED after he was discharged earlier today after being admitted for interactable hypocalcemia. Patient reports he had seizures at home this evening. According to mother, patient ate and took his insulin dosage then he became diaphoretic and started having seizures. Denies any other complaints. 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 Then patient became responsive and shortly after he was answering questions. Now patient is awake and alert with no acute complaints. Time Seen by Provider: 05/07/17 04:17 History Per: Patient History/Exam Limitations: no limitations Onset/Duration Of Symptoms: Hrs Current Symptoms Are (Timing): Still Present Current Diabetic Medications: Insulin Causative (Exacerbating) Factor(s): denies: Missed A Meal, Ate Less Than Normal , Accidentially Took To Much Medication, Missed Taking Medication, Recent Steroids, Recent Change In Diet Associated Infectious Symptoms: denies: Cough, Sore Throat, Sinus Congestion, Dysuria, Urinary Urgency, Urinary Frequency, Nausea, Vomiting, Diarrhea Treatment Prior To Provider Evaluation: None Recent travel outside of the [place]: No Past Medical History Reviewed: Historical Data, Nursing Documentation, Vital Signs Vital Signs: Last Vital Signs Temp 97.6 F 05/07/17 06:54 Pulse 82 05/07/17 06:54 Resp 18 05/07/17 06:54 BP 143/72 05/07/17 06:54 Pulse Ox 98 05/07/17 06:54 - Medical History PMH: Anemia, CHF, Diabetes (type I; ), Gastritis (gastroparesis), HTN, Hypercholesterolemia, Peripheral Edema, End Stage Renal Disease, Chronic Kidney Disease - [facility] Procedures (04/21/17) (11/12/16) BYPASS LEFT BRACHIAL ARTERY TO UPPER ARM VEIN, OPEN APPROACH (02/17/16) DILATION OF LEFT BASILIC VEIN, PERCUTANEOUS APPROACH (11/06/16) EXCISION OF ASCENDING COLON, ENDO, DIAGN (12/19/15) EXCISION OF DESCENDING COLON, ENDO, DIAGN (10/22/16) EXCISION OF DUODENUM, ENDO, DIAGN (03/25/16) EXCISION OF LARGE INTESTINE, ENDO, DIAGN (05/06/16) EXCISION OF MIDDLE ESOPHAGUS, ENDO, DIAGN (03/25/16) EXCISION OF STOMACH, ENDO, DIAGN (02/05/17) EXCISION OF TRANSVERSE COLON, ENDO, DIAGN (05/06/16) INSERTION OF INFUSION DEV INTO SUP VENA CAVA, PERC APPROACH (12/19/15) PERFORMANCE OF URINARY FILTRATION, MULTIPLE (10/28/16) PERFORMANCE OF URINARY FILTRATION, SINGLE (11/06/16) REPOSITION LEFT BASILIC VEIN, OPEN APPROACH (05/25/16) ULTRASONOGRAPHY OF SUPERIOR VENA CAVA, GUIDANCE (12/19/15) Family History: States: Unknown Family Hx, Diabetes, Hypertension - Social History Hx Tobacco Use: Yes (some days) Hx Alcohol Use: No Hx Substance Use: (marijuana) - Immunization History Hx Tetanus Toxoid Vaccination: Yes Hx Influenza Vaccination: Yes Hx Pneumococcal Vaccination: Yes Review Of Systems Constitutional: Positive for: Other (Seizures ). Negative for: Fever, Chills Eyes: Negative for: Vision Change Cardiovascular: Negative for: Chest Pain, Palpitations Gastrointestinal: Negative for: Nausea, Vomiting, Abdominal Pain, Diarrhea Neurological: Negative for: Weakness, Numbness, Change in Speech, Altered Mental Status, Headache, Dizziness Physical Exam - Physical Exam Appears: Non-toxic, No Acute Distress, Other ( answering questions; cooperative for exam ) Skin: Normal Color, Warm, Dry Head: Atraumatic, Normacephalic Eye(s): bilateral: Normal Inspection Ear(s): Bilateral: Normal Nose: Normal, No Discharge, No Deformity Oral Mucosa: Moist Throat: Normal, No Erythema, No Exudate, No Drooling Neck: Supple, Other (intravenous catheter in right side of neck ) Chest: Symmetrical, No Tenderness Cardiovascular: Rhythm Regular Respiratory: Normal Breath Sounds, No Decreased Breath Sounds, No Rales, No Rhonchi, No Wheezing Gastrointestinal/Abdominal: Soft, Tenderness (Generalized epigastric discomfort with palpation) Extremity: Normal ROM, No Pedal Edema, Other (Left AV graft in left upper arm) Extremity: Bilateral: Normal Color And Temperature, Normal ROM Pulses: Left Dorsalis Pedis: Normal, Right Dorsalis Pedis: Normal Neurological/Psych: Oriented x3, Normal Speech, Normal Cognition, Normal Cranial Nerves, Normal Motor, Normal Sensation ED Course And Treatment - Laboratory Results Result Diagrams: 05/07/17 04:56 05/07/17 04:56 Reassessment Condition: Improved Medical Decision Making Medical Decision Making: Impression: - s/p hypoglycemic convulsion - hypothermia Baseline labs ordered, if normal will discharge. Patient is on chronic pain medication for diabetes related to gastroparesis and he is requesting Morphine. Disposition - Disposition Disposition Time: 07:04 Condition: FAIR - Clinical Impression Clinical Impression: Hypothermia, Gastroparesis, Hypoglycemia associated with diabetes - Scribe Statement The provider has reviewed the documentation as recorded by the Raquelibbrenden Lockwood All medical record entries made by the Raquelibbrenden were at my direction and personally dictated by me. I have reviewed the chart and agree that the record accurately reflects my personal performance of the history, physical exam, medical decision making, and the department course for this patient. I have also personally directed, reviewed, and agree with the discharge instructions and disposition. Physician Patient Turnover - . Patient Signed Over To: Margarita Sinha Handoff Comments: pt with hypothermia,hypoglycemia
[2017-05-07 05:00] LABS: BASO # 0.1 K/uL (0.0-0.2); BASO % 0.6 % (0.0-2.0); EOS # 0.2 K/uL (0.0-0.7); EOS % 2.1 % (0.0-4.0); HEMOGLOBIN 11.5 g/dL (12.0-18.0); LYMPH # 1.1 K/uL (1.0-4.3); LYMPH % 10.5 % (20.0-40.0); MEAN CELL VOLUME 86.3 fL (80.0-94.0); MEAN CORPUSCULAR HEMOGLOBIN 28.3 pg (27.0-31.0); MEAN CORPUSCULAR HGB CONC 32.7 g/dL (33.0-37.0); MEAN PLATELET VOLUME 9.3 fL (7.2-11.7); MONO # 1.2 K/uL (0.0-0.8); MONO % 11.6 % (0.0-10.0); NEUT # 7.9 K/uL (1.8-7.0); NEUT % 75.2 % (50.0-75.0); NRBC % 0.1 % (0.0-2.0); RBC 4.07 Mil/uL (4.40-5.90); RED CELL DISTRIBUTION WIDTH 17.6 % (11.5-14.5); WHITE BLOOD COUNT 10.5 K/uL (4.8-10.8)
[2017-05-07] MEDS ORDERED: Morphine 4 MG/ML VIAL IV ONE (05:47)
[2017-05-07] MEDS ORDERED: Morphine 4 MG/ML VIAL ONE (05:54)
[2017-05-07 06:20] LABS: ALB/GLOB RATIO 0.9 (1.0-2.1); ALBUMIN 4.2 g/dL (3.5-5.0); CALCIUM 9.3 mg/dl (8.6-10.4)
[2017-05-07] MEDS ORDERED: Dextrose 5%/0.9% NS 1,000 ML IV ONE ×2 (07:31→07:54)
[2017-05-07 09:47] VITALS: RESP 20
[2017-05-07] MEDS: Morphine 4 MG/ML VIAL IVP PRN ×3 (11:22→21:38)
--- NOTE | 2017-05-07 20:44 | CP.PCM.CON ---
History of Present Illness - History of Present Illness History of Present Illness: Nephrology Consultation Note Assessment: Stable Hypoglycemia recurrent nausea/vomiting, Cyclic Emesis Syndrome, marijuana abuse, gastroparesis uncontrolled DM with hypoglycemia and hyperglycemia Diabetic chronic Kidney Disease (E11.22) Hypertensive Chronic Kidney Disease (I12.0) End stage renal disease (N18.6) dependence on hemodialysis (Z99.2) (MWF) via AVF Anemia (D64.9), Hyperphosphatemia (E83.39), Secondary Hyperparathyroidism (E21.1 ), HTN (I12.0) Plan: dialysis Tuesday as per MWF schedule as ordered. Continue with Nephrovite 1 tab/ day. Hb 11+ hence no MOHINI at this time Continue with phos binders BP control with meds as ordered. on lisinopril Glycemic control, Dialysis consistent diet Further work up/management as per primary team Dose meds/antibiotics (if needed) for ESRD status. Avoid fleets enema/magnesium based laxatives. pt to abstain from marijuana continue with PPI, pt also on reglan. Thanks for allowing me to participate in care of your patient. Will follow patient with you. Please call if any Qs. Dr Brenton Larsen Office: [phone] Chief Complaint; low blood sugar Reason for consult; ESRD, HTN HPI: Pt is a 36 y/o M with hx of ESRD on hemodialysis (MWF) via AVF, chronic anemia, hyperphosphatemia, secondary hyperparathyroidism, Diabetes Mellitus, hypertension, recurrent nausea/vomiting and multiple hospitalization for same, came back with low blood sugar. Denies chest pain, palpitation, leg swelling improved pain upper abdomen ROS: Constitutional Symptoms: Denies fever. No chills. No Recent Weight Changes Cardiovascular: No chest pain. There is shortness of breath. No palpitations. Pulmonary: No cough. Gastrointestinal: improved abdominal pain now improved nausea. improved vomiting. Denies change in bowel habits. Denies Bleeding All other negative. Physical Examination: General Appearance: comfortable, in no acute respiratory distress, co-operative . Vitals reviewed and noted as below Head; Atraumatic, normocephalic ENT: no ulcers no thrush. Tongue is midline. Oropharynx: no rash or ulcers. EYES: Pupils are equal, round and reactive to light accommodation. Eye muscles and extraocular movement intact. Sclera is anicteric. Neck; supple no lymphadenopathy, no thyromegaly or bruit Lungs: Normal respiratory rate/effort. Breath sounds bilateral equal and clear Heart: Normal rate. s1s2 normal. No rub or gallop. Extremities: no edema. No varicose veins Neurological: Patient is alert, awake and oriented to person, place and time. No focal deficit. Strength bilateral appropriate and equal Skin: Warm and dry. Normal turgor. No rash. Palpitation: Normal elasticity for age Abdomen: Abdomen is soft. Bowel sounds +. There is no epigastric abdominal tenderness, no guarding/rigidity or organomegaly Psych: limited insight and normal affect/mood MSK: no joint tenderness or swelling. Digits and nails normal, no deformity. : kidney or bladder not palpable. Access: AVF Labs/imaging reviewed. Past medical history, past surgical history, family history, social history, allergy reviewed and noted as below Family Hx: no hx of CKD. Non contributory sec HTN work up neg as renin/ioana, metanephrine and renal artery doppler Past Patient History - Infectious Disease Hx of Infectious Diseases: None - Past Medical History & Family History Past Medical History?: Yes - Past Social History Smoking Status: Current Some Days Smoker - CARDIAC Hx Congestive Heart Failure: Yes Hx Hypercholesterolemia: Yes Hx Hypertension: Yes Hx Peripheral Edema: Yes - PULMONARY Hx Respiratory Disorders: No - NEUROLOGICAL Hx Neurological Disorder: No - HEENT Hx HEENT Problems: Yes - RENAL Hx Chronic Kidney Disease: Yes - ENDOCRINE/METABOLIC Hx Diabetes Mellitus Type 2: Yes - HEMATOLOGICAL/ONCOLOGICAL Hx Anemia: Yes - INTEGUMENTARY Hx Dermatological Problems: No - MUSCULOSKELETAL/RHEUMATOLOGICAL Hx Falls: Yes - GASTROINTESTINAL Hx Gastritis: Yes (gastroparesis) - GENITOURINARY/GYNECOLOGICAL Hx Genitourinary Disorders: No - PSYCHIATRIC Hx Substance Use: (marijuana) - SURGICAL HISTORY Hx Surgeries: Yes Hx Cataract Extraction: Yes (bilateral) Hx Vascular Access Device: Yes Other/Comment: Hx RT.PERMACATH INSERTION 12/30. 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 Hx UNDESCENDED TESTES LT. REMOVED DURING CHILDHOOD - ANESTHESIA Hx Anesthesia: Yes Hx Anesthesia Reactions: No Hx Malignant Hyperthermia: No Meds Allergies/Adverse Reactions: Allergies Allergy/AdvReac Type Severity Reaction Status Date / Time No Known Allergies Allergy Verified 04/11/17 02:26 - Medications Medications: Current Medications Amlodipine Besylate (Norvasc) 10 mg PO DAILY [facility] Last Admin: 05/07/17 11:22 Dose: 10 mg Aspirin (Aspirin Chewable) 81 mg PO DAILY [facility] Last Admin: 05/07/17 11:22 Dose: 81 mg Clonidine HCl (Catapres) 0.2 mg PO TID [facility] Last Admin: 05/07/17 14:18 Dose: 0.2 mg Dicyclomine HCl (Bentyl) 10 mg PO QID [facility] Last Admin: 05/07/17 18:07 Dose: 10 mg Famotidine (Pepcid) 20 mg PO DAILY [facility] Last Admin: 05/07/17 11:22 Dose: 20 mg Gabapentin (Neurontin) 300 mg PO DAILY [facility] Last Admin: 05/07/17 11:22 Dose: 300 mg Heparin Sodium (Porcine) (Heparin) 2,000 units IVP [facility] [place] Hydralazine HCl (Apresoline) 25 mg PO Q6H [facility] Last Admin: 05/07/17 18:07 Dose: 25 mg Lisinopril (Zestril) 10 mg PO DAILY [facility] Last Admin: 05/07/17 11:22 Dose: 10 mg Metoprolol Tartrate (Lopressor) 50 mg PO BID [facility] Last Admin: 05/07/17 18:08 Dose: 50 mg Morphine Sulfate (Morphine) 2 mg IVP Q4 PRN PRN Reason: Pain Last Admin: 05/07/17 15:52 Dose: 2 mg Ondansetron HCl (Zofran Tab) 4 mg PO Q6 PRN PRN Reason: Nausea/Vomiting Vitamin B Complex/Vit C/Folic Acid (Nephro-Yomi) 1 tab PO 0800 [facility] Results - Vital Signs Recent Vital Signs: Last Vital Signs Temp 97.5 F L 05/07/17 15:13 Pulse 84 05/07/17 15:13 Resp 20 05/07/17 15:13 BP 158/86 H 05/07/17 15:13 Pulse Ox 98 05/07/17 15:13 - Labs Result Diagrams: 05/07/17 04:56 05/07/17 04:56 Labs: Laboratory Results - last 24 hr 05/07/17 05/07/17 05/07/17 04:20 04:56 04:56 WBC 10.5 RBC 4.07 L Hgb 11.5 L Hct 35.2 MCV 86.3 MCH 28.3 MCHC 32.7 L RDW 17.6 H Plt Count 216 MPV 9.3 Neut % (Auto) 75.2 H Lymph % (Auto) 10.5 L [place] % (Auto) 11.6 H Eos % (Auto) 2.1 Baso % (Auto) 0.6 Neut # (Auto) 7.9 H Lymph # (Auto) 1.1 [place] # (Auto) 1.2 H Eos # (Auto) 0.2 Baso # (Auto) 0.1 Sodium 143 Potassium 4.2 Chloride 98 Carbon Dioxide 29 Anion Gap 20 BUN 32 H Creatinine 4.5 H Est GFR ( Amer) 18 Est GFR (Non-Af Amer) 15 POC Glucose (mg/dL) 147 H Random Glucose 26 L* D Calcium 9.3 Total Bilirubin 0.6 AST 25 ALT 28 Alkaline Phosphatase 122 Total Protein 8.9 H Albumin 4.2 Globulin 4.7 H Albumin/Globulin Ratio 0.9 L 05/07/17 05/07/17 05/07/17 05:48 07:15 11:52 WBC RBC Hgb Hct MCV MCH MCHC RDW Plt Count MPV Neut % (Auto) Lymph % (Auto) [place] % (Auto) Eos % (Auto) Baso % (Auto) Neut # (Auto) Lymph # (Auto) [place] # (Auto) Eos # (Auto) Baso # (Auto) Sodium Potassium Chloride Carbon Dioxide Anion Gap BUN Creatinine Est GFR ( Amer) Est GFR (Non-Af Amer) POC Glucose (mg/dL) 71 103 291 H Random Glucose Calcium Total Bilirubin AST ALT Alkaline Phosphatase Total Protein Albumin Globulin Albumin/Globulin Ratio 05/07/17 16:52 WBC RBC Hgb Hct MCV MCH MCHC RDW Plt Count MPV Neut % (Auto) Lymph % (Auto) [place] % (Auto) Eos % (Auto) Baso % (Auto) Neut # (Auto) Lymph # (Auto) [place] # (Auto) Eos # (Auto) Baso # (Auto) Sodium Potassium Chloride Carbon Dioxide Anion Gap BUN Creatinine Est GFR ( Amer) Est GFR (Non-Af Amer) POC Glucose (mg/dL) 379 H Random Glucose Calcium Total Bilirubin AST ALT Alkaline Phosphatase Total Protein Albumin Globulin Albumin/Globulin Ratio
[2017-05-07] MEDS ORDERED: (Novolog) Insulin Aspart, Recombinant 100 u/ml 10 ml vial SC ONE (21:58)
[2017-05-08] MEDS: Morphine 4 MG/ML VIAL IVP PRN ×4 (01:59→14:34)
[2017-05-08] MEDS ORDERED: Multivitamin Vitamin B Complex (Nephro-Vite) Tab PO SCH (08:00)
[2017-05-08 08:09] VITALS: BMI 26.2
[2017-05-08 14:31] VITALS: PULSE 79
--- NOTE | 2017-05-08 16:08 | CP.PCM.PN ---
Subjective - Date & Time of Evaluation Date of Evaluation: 05/08/17 Time of Evaluation: 16:08 - Subjective Subjective: Nephrology Consultation Note Assessment: Stable Hypoglycemia recurrent nausea/vomiting, Cyclic Emesis Syndrome, marijuana abuse, gastroparesis uncontrolled DM with hypoglycemia and hyperglycemia Diabetic chronic Kidney Disease (E11.22) Hypertensive Chronic Kidney Disease (I12.0) End stage renal disease (N18.6) dependence on hemodialysis (Z99.2) (MWF) via AVF Anemia (D64.9), Hyperphosphatemia (E83.39), Secondary Hyperparathyroidism (E21.1 ), HTN (I12.0) Plan: dialysis Tuesday as per MWF schedule as ordered. Continue with Nephrovite 1 tab/ day. Hb 11+ hence no MOHINI at this time Continue with phos binders BP control with meds as ordered. on lisinopril Glycemic control, Dialysis consistent diet Further work up/management as per primary team Dose meds/antibiotics (if needed) for ESRD status. Avoid fleets enema/magnesium based laxatives. pt to abstain from marijuana continue with PPI, pt also on reglan. Thanks for allowing me to participate in care of your patient. Will follow patient with you. Please call if any Qs. Dr Brenton Larsen Office: [phone] Chief Complaint; low blood sugar Reason for consult; ESRD, HTN HPI: Pt is a 36 y/o M with hx of ESRD on hemodialysis (MWF) via AVF, chronic anemia, hyperphosphatemia, secondary hyperparathyroidism, Diabetes Mellitus, hypertension, recurrent nausea/vomiting and multiple hospitalization for same, came back with low blood sugar. Denies chest pain, palpitation, leg swelling improved pain upper abdomen ROS: Constitutional Symptoms: Denies fever. No chills. No Recent Weight Changes Cardiovascular: No chest pain. There is shortness of breath. No palpitations. Pulmonary: No cough. Gastrointestinal: improved abdominal pain now improved nausea. improved vomiting. Denies change in bowel habits. Denies Bleeding All other negative. Physical Examination: General Appearance: comfortable, in no acute respiratory distress, co-operative . Vitals reviewed and noted as below Head; Atraumatic, normocephalic ENT: no ulcers no thrush. Tongue is midline. Oropharynx: no rash or ulcers. EYES: Pupils are equal, round and reactive to light accommodation. Eye muscles and extraocular movement intact. Sclera is anicteric. Neck; supple no lymphadenopathy, no thyromegaly or bruit Lungs: Normal respiratory rate/effort. Breath sounds bilateral equal and clear Heart: Normal rate. s1s2 normal. No rub or gallop. Extremities: no edema. No varicose veins Neurological: Patient is alert, awake and oriented to person, place and time. No focal deficit. Strength bilateral appropriate and equal Skin: Warm and dry. Normal turgor. No rash. Palpitation: Normal elasticity for age Abdomen: Abdomen is soft. Bowel sounds +. There is no epigastric abdominal tenderness, no guarding/rigidity or organomegaly Psych: limited insight and normal affect/mood MSK: no joint tenderness or swelling. Digits and nails normal, no deformity. : kidney or bladder not palpable. Access: AVF Labs/imaging reviewed. Past medical history, past surgical history, family history, social history, allergy reviewed and noted as below Family Hx: no hx of CKD. Non contributory sec HTN work up neg as renin/ioana, metanephrine and renal artery doppler Objective - Vital Signs/Intake and Output Vital Signs (last 24 hours): Temp Pulse Resp BP Pulse Ox 98.0 F 79 20 138/81 97 05/08/17 08:27 05/08/17 14:30 05/08/17 08:27 05/08/17 14:30 05/08/17 08:27 Intake and Output: 05/08/17 05/08/17 06:59 18:59 Intake Total 360 Balance 360 - Medications Medications: Current Medications Amlodipine Besylate (Norvasc) 10 mg PO DAILY [facility] Last Admin: 05/08/17 09:09 Dose: 10 mg Aspirin (Aspirin Chewable) 81 mg PO DAILY [facility] Last Admin: 05/08/17 09:10 Dose: 81 mg Clonidine HCl (Catapres) 0.2 mg PO TID [facility] Last Admin: 05/08/17 14:01 Dose: 0.2 mg Dicyclomine HCl (Bentyl) 10 mg PO QID [facility] Last Admin: 05/08/17 14:01 Dose: 10 mg Famotidine (Pepcid) 20 mg PO DAILY [facility] Last Admin: 05/08/17 09:10 Dose: 20 mg Gabapentin (Neurontin) 300 mg PO DAILY [facility] Last Admin: 05/08/17 09:10 Dose: 300 mg Heparin Sodium (Porcine) (Heparin) 2,000 units IVP MWF [facility] Heparin Sodium (Porcine) (Heparin) 5,000 units SC Q12 [facility] Last Admin: 05/08/17 14:02 Dose: 5,000 units Hydralazine HCl (Apresoline) 25 mg PO Q6H [facility] Last Admin: 05/08/17 10:28 Dose: 25 mg Lisinopril (Zestril) 10 mg PO DAILY [facility] Last Admin: 05/08/17 09:10 Dose: 10 mg Metoprolol Tartrate (Lopressor) 50 mg PO BID [facility] Last Admin: 05/08/17 09:10 Dose: 50 mg Morphine Sulfate (Morphine) 2 mg IVP Q4 PRN PRN Reason: Pain Last Admin: 05/08/17 14:34 Dose: 2 mg Ondansetron HCl (Zofran Tab) 4 mg PO Q6 PRN PRN Reason: Nausea/Vomiting Vitamin B Complex/Vit C/Folic Acid (Nephro-Yomi) 1 tab PO 0800 [facility] Last Admin: 05/08/17 08:06 Dose: 1 tab - Labs Labs: 05/07/17 04:56 05/07/17 04:56
[2017-05-08 16:40] VITALS: BP 124/73; TEMP 97.8; O2SAT 98
--- NOTE | 2017-05-08 17:51 | CP.PCM.PN ---
Subjective - Date & Time of Evaluation Date of Evaluation: 05/08/17 Time of Evaluation: 17:50 - Subjective Subjective: HOUSE RESIDENT NOTE Pt found AAOx3. The patient declines to stay in the hospital and wishes to leave the inpatient floors. This action is against my medical advice. This decision was made with informed refusal. The patient was told that admission to the hospital is necessary. Explanation of the reasons why were discussed. The risks of leaving were explained to the patient and include, but are not limited to, worsening of known or currently unknown conditions, permanent disability and from undiagnosed or untreated conditions. The patient has the capacity to make this informed decision and understands my explanation of the current medical problem and risks of leaving. The patient voluntarily accepts these risks and signed an AMA form documenting our conversation. The patient was given the opportunity to ask questions and reconsider. The patient was encouraged to return to the Emergency Department at any time for further care. Attending Dr. Chadwick is aware of the AMA. Objective - Vital Signs/Intake and Output Vital Signs (last 24 hours): Temp Pulse Resp BP Pulse Ox 97.8 F 79 20 124/73 98 05/08/17 15:25 05/08/17 15:25 05/08/17 15:25 05/08/17 15:25 05/08/17 15:25 Intake and Output: 05/08/17 05/08/17 06:59 18:59 Intake Total 360 Balance 360 - Medications Medications: Current Medications Amlodipine Besylate (Norvasc) 10 mg PO DAILY [facility] Last Admin: 05/08/17 09:09 Dose: 10 mg Aspirin (Aspirin Chewable) 81 mg PO DAILY [facility] Last Admin: 05/08/17 09:10 Dose: 81 mg Clonidine HCl (Catapres) 0.2 mg PO TID [facility] Last Admin: 05/08/17 14:01 Dose: 0.2 mg Dicyclomine HCl (Bentyl) 10 mg PO QID [facility] Last Admin: 05/08/17 17:18 Dose: 10 mg Famotidine (Pepcid) 20 mg PO DAILY [facility] Last Admin: 05/08/17 09:10 Dose: 20 mg Gabapentin (Neurontin) 300 mg PO DAILY [facility] Last Admin: 05/08/17 09:10 Dose: 300 mg Heparin Sodium (Porcine) (Heparin) 2,000 units IVP [facility] Heparin Sodium (Porcine) (Heparin) 5,000 units SC Q12 [facility] Last Admin: 05/08/17 14:02 Dose: 5,000 units Hydralazine HCl (Apresoline) 25 mg PO Q6H [facility] Last Admin: 05/08/17 17:18 Dose: 25 mg Insulin Aspart (Novolog) 1 unit SC ACHS [facility] PRN Reason: Protocol Lisinopril (Zestril) 10 mg PO DAILY [facility] Last Admin: 05/08/17 09:10 Dose: 10 mg Metoprolol Tartrate (Lopressor) 50 mg PO BID [facility] Last Admin: 05/08/17 17:23 Dose: 50 mg Morphine Sulfate (Morphine) 2 mg IVP Q4 PRN PRN Reason: Pain Last Admin: 05/08/17 14:34 Dose: 2 mg Ondansetron HCl (Zofran Tab) 4 mg PO Q6 PRN PRN Reason: Nausea/Vomiting Vitamin B Complex/Vit C/Folic Acid (Nephro-Yomi) 1 tab PO 0800 [facility] Last Admin: 05/08/17 08:06 Dose: 1 tab - Labs Labs: 05/07/17 04:56 05/07/17 04:56
[2017-05-08] MEDS ORDERED: (Novolog) Insulin Aspart, Recombinant 100 u/ml 10 ml vial SC SCH (18:00)
--- NOTE | 2017-05-09 14:14 | HP ---
HISTORY OF PRESENT ILLNESS: Mr. Haynes was admitted to the hospital with chief complaint of nausea, vomiting, ____, and hypoglycemia. Patient came to the ER, advised admission. PHYSICAL EXAMINATION: GENERAL: The patient is awake, alert, and oriented. VITAL SIGNS: Temperature 98, pulse 90. HEENT: Within normal limits. NECK: Supple. CHEST: Symmetrical. HEART: Regular. ABDOMEN: Soft. EXTREMITIES: No edema. IMPRESSION: Hypoglycemia, renal failure. The patient in bed rest, monitor blood sugar. Lucero Chadwick MD
== END 2017-05-08 19:15 | disposition left against medical advice (07) | DRG 638 ==
LOC: C.ER 04:16 → C.9E 07:45 → C.6T 08:51
PROVIDERS: ADMIT Internal Medicine Pulmonary Disease; ATTEND Internal Medicine Pulmonary Disease
DX: E11.649 Type 2 diabetes mellitus with hypoglycemia without coma (principal); I13.2 Hypertensive heart and chronic kidney disease with heart failure and with stage 5 chronic kidney disease, or end stage renal disease; K31.84 Gastroparesis; E11.22 Type 2 diabetes mellitus with diabetic chronic kidney disease; E11.43 Type 2 diabetes mellitus with diabetic autonomic (poly)neuropathy; E83.39 Other disorders of phosphorus metabolism; N18.6 End stage renal disease; F12.10 Cannabis abuse, uncomplicated; E78.00 Pure hypercholesterolemia, unspecified; N25.81 Secondary hyperparathyroidism of renal origin; Z99.2 Dependence on renal dialysis; I50.9 Heart failure, unspecified; F17.210 Nicotine dependence, cigarettes, uncomplicated; D63.1 Anemia in chronic kidney disease; Z79.4 Long term (current) use of insulin

== ENCOUNTER 2017-05-14 15:47 | Inpatient (IN) | payer MEDICARE, MEDICAID ==
--- NOTE | 2017-05-14 16:15 | C.PDOC ---
History Of Present Illness CO RECUR ABD PAIN, [place]. FROM HD "TODAY WAS AN EXTRA DAY". hx of ESRD on hemodialysis (MWF) via AVF, chronic anemia, hyperphosphatemia, secondary hyperparathyroidism, Diabetes Mellitus, hypertension, recurrent nausea /vomiting and multiple hospitalization for same, MULT RECENT ER VISITS FOR SAME ROS LIMITED EXAM MOD DIST NONTOXIC ABD NEG ACTIVE WRETCHING NARD AROM WO DIFF REMAINDER NEG Time Seen by Provider: 05/14/17 15:59 Chief Complaint (Nursing): Abdominal Pain History Per: Patient History/Exam Limitations: no limitations Past Medical History Reviewed: Historical Data, Nursing Documentation, Vital Signs Vital Signs: Last Vital Signs Temp 98.6 F 05/14/17 15:55 Pulse 102 H 05/14/17 15:55 Resp 18 05/14/17 15:55 BP 235/106 H 05/14/17 15:55 Pulse Ox 99 05/14/17 16:40 - Medical History PMH: Anemia, CHF, Diabetes (type I; ), Gastritis (gastroparesis), HTN, Hypercholesterolemia, Peripheral Edema, End Stage Renal Disease, Chronic Kidney Disease Denies: HIV, Kidney Stones - [facility] Procedures (05/01/17) (11/12/16) BYPASS LEFT BRACHIAL ARTERY TO UPPER ARM VEIN, OPEN APPROACH (02/17/16) DILATION OF LEFT BASILIC VEIN, PERCUTANEOUS APPROACH (11/06/16) EXCISION OF ASCENDING COLON, ENDO, DIAGN (12/19/15) EXCISION OF DESCENDING COLON, ENDO, DIAGN (10/22/16) EXCISION OF DUODENUM, ENDO, DIAGN (03/25/16) EXCISION OF LARGE INTESTINE, ENDO, DIAGN (05/06/16) EXCISION OF MIDDLE ESOPHAGUS, ENDO, DIAGN (03/25/16) EXCISION OF STOMACH, ENDO, DIAGN (02/05/17) EXCISION OF TRANSVERSE COLON, ENDO, DIAGN (05/06/16) INSERTION OF INFUSION DEV INTO SUP VENA CAVA, PERC APPROACH (12/19/15) PERFORMANCE OF URINARY FILTRATION, MULTIPLE (10/28/16) PERFORMANCE OF URINARY FILTRATION, SINGLE (11/06/16) REPOSITION LEFT BASILIC VEIN, OPEN APPROACH (05/25/16) ULTRASONOGRAPHY OF SUPERIOR VENA CAVA, GUIDANCE (12/19/15) Family History: States: Diabetes, Hypertension - Social History Hx Tobacco Use: Yes (some days) Hx Alcohol Use: No Hx Substance Use: No - Immunization History Hx Tetanus Toxoid Vaccination: Yes Hx Influenza Vaccination: Yes Hx Pneumococcal Vaccination: Yes Review Of Systems Review Of Systems: ROS cannot be obtained secondary to pt's inabilty to answer questions. Physical Exam - Physical Exam Appears: Non-toxic, No Acute Distress Skin: Normal Color, Warm, Dry, No Rash Head: Normacephalic Eye(s): bilateral: PERRL Nose: Normal Oral Mucosa: Moist Lips: Normal Appearing Neck: Normal ROM Chest: Symmetrical Cardiovascular: Rhythm Regular, No Murmur Respiratory: Normal Breath Sounds, No Accessory Muscle Use Gastrointestinal/Abdominal: Other ( NEG ACTIVE WRETCHING) Extremity: Normal ROM, No Deformity, No Swelling Neurological/Psych: Oriented x3, Normal Speech ED Course And Treatment - Laboratory Results Result Diagrams: 05/14/17 17:13 05/14/17 17:13 ECG: Interpreted By Me, Viewed By Me ECG Rhythm: Sinus Tachycardia ECG Interpretation: No Acute Changes Rate From EC O2 Sat by Pulse Oximetry: 99 (RA) Pulse Ox Interpretation: Normal Progress - Re-Evaluation Re-evaluation Note: 05/14/17 17:54 EXAM UNCH CO PERSIST PAIN. D/W DR CANTU WILL ADMIT - Data Reviewed Data Reviewed: Lab, Diagnostic imaging, Old records Disposition Counseled Patient/Family Regarding: Studies Performed, Diagnosis - Disposition Disposition: HOSPITALIZED Disposition Time: 17:55 Condition: STABLE Forms: [facility] (Malagasy) - POA Present On Arrival: None - Clinical Impression Clinical Impression: Intractable vomiting with nausea, CRF (chronic renal failure), ESRD (end stage renal disease) on dialysis - Scribe Statement The provider has reviewed the documentation as recorded by the Scribe (Gonzalo Guardado) All medical record entries made by the Scribe were at my direction and personally dictated by me. I have reviewed the chart and agree that the record accurately reflects my personal performance of the history, physical exam, medical decision making, and the department course for this patient. I have also personally directed, reviewed, and agree with the discharge instructions and disposition. Decision To Admit - Pt Status Changed To: Hospital Disposition Of: Observation - . Bed Request Type: Regular Admitting Physician: Lucero Cantu Patient Diagnosis: Intractable vomiting with nausea, CRF (chronic renal failure), ESRD (end stage renal disease) on dialysis
[2017-05-14 17:17] LABS: BASO # 0.1 K/uL (0.0-0.2); BASO % 0.3 % (0.0-2.0); EOS % 0.2 % (0.0-4.0); HEMOGLOBIN 10.8 g/dL (12.0-18.0); LYMPH # 0.4 K/uL (1.0-4.3); MEAN CELL VOLUME 85.8 fL (80.0-94.0); MEAN CORPUSCULAR HEMOGLOBIN 27.8 pg (27.0-31.0); MEAN CORPUSCULAR HGB CONC 32.4 g/dL (33.0-37.0); MEAN PLATELET VOLUME 8.8 fL (7.2-11.7); MONO # 1.2 K/uL (0.0-0.8); MONO % 5.9 % (0.0-10.0); NEUT % 91.6 % (50.0-75.0); PLATELET COUNT 262 K/uL (130-400); RED CELL DISTRIBUTION WIDTH 17.9 % (11.5-14.5)
[2017-05-14 17:20] LABS: WHITE BLOOD COUNT 20.8 K/uL (4.8-10.8)
[2017-05-14 17:35] LABS: CALCIUM 8.4 mg/dl (8.6-10.4)
[2017-05-14 17:49] LABS: LYMPHOCYTE 2 % (20-40); MONOCYTE 7 % (0-10); NEUTROPHIL 91 % (50-75); PLATELET ESTIMATE NORMAL (NORMAL); TOTAL CELLS COUNTED 100
[2017-05-14 17:50] LABS: ANISOCYTOSIS SLIGHT; HYPOCHROMIC SLIGHT; POIKILOCYTOSIS SLIGHT; TEARDROP CELLS SLIGHT
[2017-05-14] MEDS ORDERED: Labetalol 25mg/5ml Syringe IVP STA ×2 (18:36→22:20)
[2017-05-14] MEDS ORDERED: HYDROmorphone 1 mg/ml ISec ONE (20:29)
[2017-05-14] MEDS: HYDROmorphone 1 mg/ml ISec IVP PRN (20:36)
[2017-05-14] MEDS ORDERED: Labetalol 25mg/5ml Syringe ONE (22:17)
[2017-05-14 22:27] LABS: PROTHROMBIN TIME 11.4 SECONDS (9.7-12.2)
[2017-05-14] MEDS ORDERED: Vancomycin 1 gm/NS 200 ml 1 GM/200 ML BAG IVPB STA (22:33)
[2017-05-14] MEDS ORDERED: Cefepime 0.5 GM in Sodium Chloride 0.9% 100 ML IVPB ONE (23:31)
--- NOTE | 2017-05-14 23:58 | CP.PCM.CON ---
History of Present Illness - History of Present Illness History of Present Illness: reason for consultation: Code Sepsis with elevated lactate and uncontrolled hypertension Pt is a 36 y/o M with hx of ESRD on hemodialysis, chronic anemia, hyperphosphatemia, secondary hyperparathyroidism, Diabetes Mellitus, presents w / n/v. he complains of abdominal pain and recurrent n/v. he states its very similar to his other hospitalizations. he denies any fever or chills. He has been compliant w/ HD . Patient had multiple admissions in the past with similar complaints status post multiple endoscopies and consistent with gastroparesis, esophagitis.. Patient was initially admitted to floor but requested for upgrade to ICU for fever, elevated lactate level, elevated white count and hypertension. Patient is alert oriented 3. Review of Systems - Review of Systems All systems: reviewed and no additional remarkable complaints except (nausea, vomiting and diarrhea) Past Patient History - Infectious Disease Hx of Infectious Diseases: None - Past Medical History & Family History Past Medical History?: Yes - Past Social History Smoking Status: Current Some Days Smoker - CARDIAC Hx Congestive Heart Failure: Yes Hx Hypercholesterolemia: Yes Hx Hypertension: Yes Hx Peripheral Edema: Yes - PULMONARY Hx Respiratory Disorders: No - NEUROLOGICAL Hx Neurological Disorder: No - HEENT Hx HEENT Problems: Yes - RENAL Hx Chronic Kidney Disease: Yes Hx Kidney Stones: No - ENDOCRINE/METABOLIC Hx Endocrine Disorders: Yes Hx Diabetes Mellitus Type 2: Yes - HEMATOLOGICAL/ONCOLOGICAL Hx Anemia: Yes Hx Human Immunodeficiency Virus (HIV): No - INTEGUMENTARY Hx Dermatological Problems: No - MUSCULOSKELETAL/RHEUMATOLOGICAL Hx Musculoskeletal Disorders: Yes Hx Falls: Yes - GASTROINTESTINAL Hx Gastritis: Yes (gastroparesis) - GENITOURINARY/GYNECOLOGICAL Hx Genitourinary Disorders: No - PSYCHIATRIC Hx Substance Use: No - SURGICAL HISTORY Hx Surgeries: Yes Hx Cataract Extraction: Yes (bilateral) Hx Vascular Access Device: Yes Other/Comment: Hx RT.PERMACATH INSERTION 12/30. 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 Hx UNDESCENDED TESTES LT. REMOVED DURING CHILDHOOD - ANESTHESIA Hx Anesthesia: Yes Hx Anesthesia Reactions: No Hx Malignant Hyperthermia: No Meds Allergies/Adverse Reactions: Allergies Allergy/AdvReac Type Severity Reaction Status Date / Time No Known Allergies Allergy Verified 05/14/17 15:51 - Medications Medications: Current Medications Amlodipine Besylate (Norvasc) 10 mg PO DAILY [facility] Clonidine HCl (Catapres) 0.3 mg PO TID [facility] Heparin Sodium (Porcine) (Heparin) 5,000 units SC BID [facility] Hydralazine HCl (Apresoline) 50 mg PO TID [facility] Hydromorphone HCl (Dilaudid) 1 mg IVP Q4H PRN PRN Reason: pain Last Admin: 05/14/17 20:36 Dose: 1 mg Cefepime HCl 500 gm/ Sodium (Chloride) 100 mls @ 100 mls/hr IVPB Q8H [facility] Last Admin: 05/14/17 22:55 Dose: 100 mls/hr Insulin Human Regular (Novolin R) 0 unit SC ACHS [facility] PRN Reason: Protocol Ondansetron HCl (Zofran Inj) 4 mg IVP Q6 PRN PRN Reason: nausea and vomiting Last Admin: 05/14/17 20:43 Dose: 4 mg Pantoprazole Sodium (Protonix Inj) 40 mg IVP DAILY [facility] Physical Exam - Head Exam Head Exam: ATRAUMATIC, NORMOCEPHALIC - Eye Exam Eye Exam: Normal appearance - ENT Exam ENT Exam: Mucous Membranes Dry - Neck Exam Neck exam: Positive for: Normal Inspection - Respiratory Exam Respiratory Exam: Clear to Auscultation Bilateral - Cardiovascular Exam Cardiovascular Exam: REGULAR RHYTHM - GI/Abdominal Exam GI & Abdominal Exam: Normal Bowel Sounds, Soft - Extremities Exam Extremities exam: Positive for: normal inspection - Neurological Exam Neurological exam: Alert, Oriented x3 Results - Vital Signs Recent Vital Signs: Last Vital Signs Temp 101.8 F H 05/14/17 22:32 Pulse 113 H 05/14/17 22:32 Resp 18 05/14/17 22:32 BP 208/102 H 05/14/17 22:32 Pulse Ox 95 05/14/17 22:32 - Labs Result Diagrams: 05/14/17 17:13 05/14/17 17:13 Labs: Laboratory Results - last 24 hr 05/14/17 05/14/17 05/14/17 17:13 17:13 22:16 WBC 20.8 H D RBC 3.90 L Hgb 10.8 L Hct 33.5 L MCV 85.8 MCH 27.8 MCHC 32.4 L RDW 17.9 H Plt Count 262 MPV 8.8 Neut % (Auto) 91.6 H Lymph % (Auto) 2.0 L Wetzel % (Auto) 5.9 Eos % (Auto) 0.2 Baso % (Auto) 0.3 Neut # (Auto) 19.0 H Lymph # (Auto) 0.4 L Wetzel # (Auto) 1.2 H Eos # (Auto) 0.0 Baso # (Auto) 0.1 Neutrophils % (Manual) 91 H Lymphocytes % (Manual) 2 L Monocytes % (Manual) 7 Platelet Estimate Normal Hypochromasia (manual) Slight Poikilocytosis (manual Slight Anisocytosis (manual) Slight Tear Drop Cells Slight PT 11.4 INR 1.0 APTT 22 Sodium 138 Potassium 4.9 Chloride 93 L Carbon Dioxide 28 Anion Gap 22 H BUN 33 H Creatinine 4.9 H Est GFR ( Amer) 16 Est GFR (Non-Af Amer) 14 POC Glucose (mg/dL) Random Glucose 268 H Lactic Acid Calcium 8.4 L 05/14/17 05/14/17 22:39 22:48 WBC RBC Hgb Hct MCV MCH MCHC RDW Plt Count MPV Neut % (Auto) Lymph % (Auto) Wetzel % (Auto) Eos % (Auto) Baso % (Auto) Neut # (Auto) Lymph # (Auto) Wetzel # (Auto) Eos # (Auto) Baso # (Auto) Neutrophils % (Manual) Lymphocytes % (Manual) Monocytes % (Manual) Platelet Estimate Hypochromasia (manual) Poikilocytosis (manual Anisocytosis (manual) Tear Drop Cells PT INR APTT Sodium Potassium Chloride Carbon Dioxide Anion Gap BUN Creatinine Est GFR ( Amer) Est GFR (Non-Af Amer) POC Glucose (mg/dL) 368 H Random Glucose Lactic Acid 5.8 H* Calcium Assessment & Plan (1) Leukocytosis Status: Acute Comment: leukocytosis, fever and elevated lactate level. Blood cultures DONE. Continue cefepime and one dose of Vanco now. Etiology of fever unknown, SIRS? (2) Intractable vomiting with nausea Status: Acute Comment: most likely secondary to gastroparesis. Rule out colitis,. CAT scan of the abdomen. GI evaluation. Continue Protonix. Patient admitted to smoking marijuana (3) CKD (chronic kidney disease) requiring chronic dialysis Status: Acute Comment: Continue hemodialysis
[2017-05-15] MEDS ORDERED: Labetalol 25mg/5ml Syringe IVP STA (00:14)
[2017-05-15] MEDS: niCARdipine IV 25 MG in Sodium Chloride 0.9% 240 ML IV SCH ×3 (00:46→11:34)
[2017-05-15 06:44] LABS: BASO # 0.3 K/uL (0.0-0.2); HEMOGLOBIN 9.8 g/dL (12.0-18.0); LYMPH # 0.5 K/uL (1.0-4.3); LYMPH % 1.6 % (20.0-40.0); MEAN CELL VOLUME 86.8 fL (80.0-94.0); MEAN CORPUSCULAR HEMOGLOBIN 28.3 pg (27.0-31.0); MEAN CORPUSCULAR HGB CONC 32.6 g/dL (33.0-37.0); MEAN PLATELET VOLUME 10.3 fL (7.2-11.7); MONO # 1.7 K/uL (0.0-0.8); MONO % 6.1 % (0.0-10.0); NEUT # 26.1 K/uL (1.8-7.0); NEUT % 91.3 % (50.0-75.0); PLATELET COUNT 160 K/uL (130-400); RBC 3.48 Mil/uL (4.40-5.90); RED CELL DISTRIBUTION WIDTH 18.2 % (11.5-14.5); WHITE BLOOD COUNT 28.6 K/uL (4.8-10.8)
[2017-05-15 06:59] LABS: ALBUMIN 3.5 g/dL (3.5-5.0); CALCIUM 8.3 mg/dl (8.6-10.4)
[2017-05-15] MEDS: (Novolin R) Insulin Human Regular 100 units/ml vial SC SCH ×4 (07:57→21:29)
[2017-05-15] MEDS ORDERED: Cefepime 0.5 GM in Sodium Chloride 0.9% 100 ML IVPB ONE (09:38)
[2017-05-15] MEDS ORDERED: (Novolin R) Insulin Human Regular 100 units/ml vial IV ONE (09:43)
[2017-05-15 09:45] LABS: BANDS 18 % (0-2); EOSINOPHIL 1 % (0-4); LYMPHOCYTE 1 % (20-40); MONOCYTE 1 % (0-10); NEUTROPHIL 79 % (50-75); PLATELET ESTIMATE NORMAL (NORMAL); TOTAL CELLS COUNTED 100
[2017-05-15 09:46] LABS: ANISOCYTOSIS SLIGHT; HYPOCHROMIC SLIGHT; POLYCHROMIC SLIGHT; TOXIC GRANULATION PRESENT
[2017-05-15 09:47] LABS: LARGE PLATELETS PRESENT
[2017-05-15] MEDS ORDERED: Meropenem IV 1 gm in NS 50 ML IVPB ONE (10:00)
[2017-05-15] MEDS ORDERED: Gentamicin 160 MG in Sodium Chloride 0.9% 100 ML IVPB ONE (10:00)
--- NOTE | 2017-05-15 10:01 | CP.PCM.PN ---
Subjective - Date & Time of Evaluation Date of Evaluation: 05/15/17 Time of Evaluation: 09:48 - Subjective Subjective: Temp spike this am of 103, resulting tachycardia, c/o nausea and abdominal pain , h/o similar complains in past had been attributed to cyclical vomiting form cannabinoid abuse. Patient was started on nicardipine drip due to nausea vomiting, has been tapered off. Has elevated lactate with hypertension, and abd pain hence abdominal CT has been ordered. Objective - Vital Signs/Intake and Output Vital Signs (last 24 hours): Temp Pulse Resp BP Pulse Ox 103.1 F H 131 H 11 L 170/80 H 96 05/15/17 08:00 05/15/17 08:30 05/15/17 08:30 05/15/17 08:19 05/15/17 08:00 Intake and Output: 05/15/17 05/15/17 06:59 18:59 Intake Total 708 110 Output Total 100 300 Balance 608 -190 - Medications Medications: Current Medications Amlodipine Besylate (Norvasc) 10 mg PO DAILY [facility] Clonidine HCl (Catapres) 0.3 mg PO TID [facility] Heparin Sodium (Porcine) (Heparin) 5,000 units SC BID [facility] Hydralazine HCl (Apresoline) 50 mg PO TID [facility] Hydromorphone HCl (Dilaudid) 1 mg IVP Q4H PRN PRN Reason: pain Last Admin: 05/14/17 20:36 Dose: 1 mg Nicardipine HCl 25 mg/ Sodium (Chloride) 250 mls @ 25 mls/hr IV .Q10H [facility]; 2.5 MG/HR PRN Reason: Protocol Last Titration: 05/15/17 07:51 Dose: 2.5 mg/hr, 25 mls/hr Fluconazole (Diflucan Iv 200 Mg/100 Ml Ns) 100 mls @ 100 mls/hr IVPB DAILY [facility] PRN Reason: Protocol Gentamicin Sulfate 160 mg/ (Sodium Chloride) 104 mls @ 104 mls/hr IVPB ONCE ONE PRN Reason: Protocol Stop: 05/15/17 10:59 Meropenem (Merrem Iv 1 Gm Premix) 50 mls @ 100 mls/hr IVPB ONCE ONE PRN Reason: Protocol Stop: 05/15/17 10:29 Vancomycin/Sodium Chloride (Vancomycin 1 Gm/Ns 200 Ml) 1 gm in 200 mls @ 133.333 mls/hr IVPB ONCE ONE PRN Reason: Protocol Stop: 05/15/17 23:59 Meropenem 500 mg/ Sodium (Chloride) 100 mls @ 100 mls/hr IVPB Q12 [facility] PRN Reason: Protocol Insulin Human Regular (Novolin R) 0 unit SC ACHS [facility] PRN Reason: Protocol Last Admin: 05/15/17 07:57 Dose: 5 unit Metoclopramide HCl (Reglan) 10 mg IVP ACHS [facility] Last Admin: 05/15/17 08:50 Dose: Not Given Ondansetron HCl (Zofran Inj) 4 mg IVP Q6 PRN PRN Reason: nausea and vomiting Last Admin: 05/15/17 06:58 Dose: 4 mg Pantoprazole Sodium (Protonix Inj) 40 mg IVP DAILY [facility] - Labs Labs: 05/15/17 06:40 05/15/17 06:40 PT 11.4 SECONDS (9.7-12.2) 05/14/17 22:16 INR 1.0 05/14/17 22:16 APTT 22 SECONDS (21-34) 05/14/17 22:16 - Additional Findings Additional findings: * HEENT JAYRO * Neck Supple * Chest Clear * CVS Regular, tachycardia * PA soft, no guarding or rigidity, but c/o generalized pain * Ext no edema, av fistual in left arm * CT MRI TECHNOLOGIST awake oriented x3 no fnd, no rigidity * Skin normal turgor. Assessment and Plan - Assessment and Plan (Free Text) Assessment: * Sepsis, fever, abd pain, leucocytosis source unclear yet * ESRD on hd, left arm av fistula * Marijuana abuse * H/o cyclical vomiting from marijuana abuse * Hyperglycemia, non compliance, poor historian about use of his insulin Plan: * Broad spectrum coverage, stared by ID vancomycin, gentamycin, meropenium, diflucan * PRN iv insulin/drip till patient's dosage is known * Chest/abd/pelvis ct to look for source * GI/DVT prophylaxis * f/u labs due to initial hyperkalemia * See orders for detail.
[2017-05-15] MEDS: Fluconazole IV 200mg/100 ml NS 100 ML IVPB SCH (10:06)
--- NOTE | 2017-05-15 11:23 | RAD ---
HISTORY: er 2 COMPARISON: No prior. FINDINGS: LUNGS: Findings suggest mild central pulmonary vascular congestion ; rule out fluid overload versus CHF. PLEURA: No significant pleural effusion identified, no pneumothorax apparent. CARDIOVASCULAR: Heart appears mildly enlarged OSSEOUS STRUCTURES: No significant abnormalities. VISUALIZED UPPER ABDOMEN: Normal. OTHER FINDINGS: None. IMPRESSION: Pulmonary venous congestion possibly due to fluid overload given the patient's history of end-stage renal disease; rule out CHF. Heart appears mildly enlarged
[2017-05-15 12:38] LABS: CALCIUM 7.6 mg/dl (8.6-10.4)
--- NOTE | 2017-05-15 13:16 | CT ---
PROCEDURE: CT chest abdomen pelvis dated 05/15/2017. HISTORY: Sepsis. ESRD COMPARISON: Comparison made with prior CT scan of the abdomen and pelvis 11/19/[address] scan of the chest 03/12/2016 TECHNIQUE: Radiation dose: Total exam DLP = 775.42 mGy-cm. This CT exam was performed using one or more of the following dose reduction techniques: Automated exposure control, adjustment of the mA and/or kV according to patient size, and/or use of iterative reconstruction technique. FINDINGS: CT CHEST WITHOUT CONTRAST: LUNGS: Mild atelectasis present within the posterior lower lung zones. . There appears to be mild pulmonary vascular congestive changes. Nodular opacities are seen in the right upper/middle and lower lobes. There is also a discrete nodular opacity seen in the left upper and lower lobes on either side of the superior margin of the major fissure as well as left lingular region. Findings could represent multifocal early pneumonia. No evidence of pneumothorax. No significant pleural effusion identified at this time. MEDIASTINUM: Heart appears enlarged. No significant pericardial effusion. There are cardiac findings suggestive of anemia. Clinical correlation is recommended. There is a small hiatal hernia with moderate wall thickening of a good portion of the mid and distal esophagus of uncertain etiology however esophagitis or other intrinsic/ invasive wall lesion should be excluded. Clinical correlation recommended endoscopy may be prudent for further evaluation. Central airways are midline and patent. No large central endoluminal lesions. LYMPH NODES: There are multiple small mediastinal lymph nodes. Evaluation for hilar adenopathy limited due to the lack of circulating intravenous contrast material. PLEURA: Unremarkable. No pneumothorax. No pleural fluid. BONES: Minor chronic appearing anterior stature loss of a few lower thoracic segments. Remaining vertebral bodies otherwise exhibit normal stature. Mild degenerative spondylosis is also seen at several lower disc space levels. OTHER FINDINGS: Thyroid gland is slightly heterogeneous in appearance. CT ABDOMEN AND PELVIS: LIVER: Liver exhibits normal size measuring approximately 17 cm in CC dimension. Liver demonstrates relatively normal attenuation pattern. No evidence of obvious hepatic mass or collection seen on this noncontrast study GALLBLADDER AND BILE DUCTS: Gallbladder is physiologically distended. No evidence of intraluminal gallbladder calculi. PANCREAS: Unremarkable. No gross lesion or ductal dilatation. SPLEEN: Unremarkable. ADRENALS: Left ureter appears mildly enlarged. KIDNEYS AND URETERS: Kidneys demonstrate relatively symmetric size. No evidence of nephrolithiasis or hydronephrosis. VASCULATURE: Unremarkable. No aortic aneurysm. BOWEL: Evaluation of the bowel is limited due to the lack of oral contrast material. The stomach is partially distended with food debris liquid and air. On there are multiple on minimally prominent loops of proximal small bowel with slight wall thickening. Findings are nonspecific however mild enteritis not excluded. There is mild wall thickening of the descending colon likely in part due to a combination of underdistention, peristalsis and possibly some on opacified bowel. There are no inflammatory changes seen within the adjacent mesentery. The possibility of inflammatory process less likely though not completely excluded. . APPENDIX: What is felt to represent a partially air and debris filled appendix best seen on axial image number [id number] and coronal image number [id number]. . PERITONEUM: Unremarkable. No free fluid. No free air. LYMPH NODES: Unremarkable. No enlarged lymph nodes. BLADDER: Mild urinary bladder wall thickening may in part be due to incomplete distention however muscular hypertrophy may contribute. Rule out cystitis. REPRODUCTIVE: Prostate gland measures approximately 4.1 cm in transverse dimension. BONES: As mentioned above, chronic appearing anterior stature loss of several lower thoracic segments noted. No acute compression fractures. Mild multilevel degenerative spondylosis. OTHER FINDINGS: None. IMPRESSION: Mild atelectasis both posterior lower lung zones. There are scattered nodular opacities throughout the upper and lower lobes as well as lingular and middle lobe regions possibly representing a multifocal early pneumonia. Hiatal hernia with wall thickening of the of a good portion of the mid and lower esophagus esophagus ; rule out esophagitis or other intrinsic/invasive wall lesion. Cardiomegaly. Findings consistent with anemia. Minor wall thickening of a few loops of proximal small bowel nonspecific though possibility of mild enteritis not excluded. There is also wall thickening of the descending colon which is felt to be due to some combination of underdistention, peristalsis and non-opacified bowel ; there are also no obvious inflammatory changes seen in the just the mesentery. The possibility of inflammatory process less likely though not completely excluded. . Possibility of inflammatory process also not excluded however no obvious infiltration changes are seen in the adjacent mesenteric. Bladder wall thickening likely in part due to incomplete distention and muscular hypertrophy however the possibility of a cystitis not excluded. Correlation with urinalysis recommended.
[2017-05-15] MEDS: HYDROmorphone 1 mg/ml ISec IVP PRN (20:15)
--- NOTE | 2017-05-15 20:55 | CP.PCM.CON ---
History of Present Illness - History of Present Illness History of Present Illness: Nephrology Consultation Note Assessment: Stable N/V Abdominal Pain Lactic Acidosis Sepsis Cyclic Emesis Syndrome, marijuana abuse, gastroparesis uncontrolled DM with hypoglycemia and hyperglycemia Diabetic chronic Kidney Disease (E11.22) Hypertensive Chronic Kidney Disease (I12.0) End stage renal disease (N18.6) dependence on hemodialysis (Z99.2) (MWF) via AVF Anemia (D64.9), Hyperphosphatemia (E83.39), Secondary Hyperparathyroidism (E21.1 ), HTN (I12.0) Hyperkalemia Plan: dialysis tomorrow per schedule unless develops acute indication overnight Start Nephrovite 1 tab/day. will start epo will start phoslo bp control w/ meds as ordered abx dose for ESRD sepsis source ? pna if lactic acidosis not improving and abdominal exam not improved may need to consider ischemic colitis, will defer to ICU team Chief Complaint; Abdominal pain Reason for consult; ESRD, HTN HPI: Pt is a 36 y/o M with hx of ESRD on hemodialysis (MWF) via AVF, chronic anemia, hyperphosphatemia, secondary hyperparathyroidism, Diabetes Mellitus, hypertension, recurrent nausea/vomiting and multiple hospitalization for same that p/w severe abdominal pain, diffuse aches, and fevers. He was seen in ER and worked up and admitted to ICU for severe lactic acidosis. He was found to be hyperkalemic as well which improved w/ medical treatment. He is still having severe abdominal pain. ROS: a full detailed ROS is negative except as above Physical Examination: General Appearance: uncomfortable, in no acute respiratory distress, co- operative . Vitals reviewed and noted as below Head; Atraumatic, normocephalic ENT: no ulcers no thrush. Tongue is midline. Oropharynx: no rash or ulcers. EYES: Pupils are equal, round and reactive to light accommodation. Eye muscles and extraocular movement intact. Sclera is anicteric. Neck; supple no lymphadenopathy, no thyromegaly or bruit Lungs: Normal respiratory rate/effort. Breath sounds bilateral equal and clear Heart: Normal rate. s1s2 normal. No rub or gallop. Extremities: no edema. No varicose veins Neurological: Patient is alert, awake and oriented to person, place and time. No focal deficit. Strength bilateral appropriate and equal Skin: Warm and dry. Normal turgor. No rash. Palpitation: Normal elasticity for age Abdomen: Abdomen w/ + bs, + guarding no rebound Psych: limited insight and normal affect/mood MSK: no joint tenderness or swelling. Digits and nails normal, no deformity. : kidney or bladder not palpable. Access: AVF Labs/imaging reviewed. Past medical history, past surgical history, family history, social history, allergy reviewed and noted as below Family Hx: no hx of CKD. Non contributory Past Patient History - Infectious Disease Hx of Infectious Diseases: None - Past Medical History & Family History Past Medical History?: Yes - Past Social History Smoking Status: Current Some Days Smoker - CARDIAC Hx Congestive Heart Failure: Yes Hx Hypercholesterolemia: Yes Hx Hypertension: Yes Hx Peripheral Edema: Yes - PULMONARY Hx Respiratory Disorders: No - NEUROLOGICAL Hx Neurological Disorder: No - HEENT Hx HEENT Problems: Yes - RENAL Hx Chronic Kidney Disease: Yes Type of Dialysis Access: lavs Date of Last Dialysis Treatment: 05/14/17 Hx Kidney Stones: No - ENDOCRINE/METABOLIC Hx Endocrine Disorders: Yes Hx Diabetes Mellitus Type 2: Yes - HEMATOLOGICAL/ONCOLOGICAL Hx Anemia: Yes Hx Human Immunodeficiency Virus (HIV): No - INTEGUMENTARY Hx Dermatological Problems: No - MUSCULOSKELETAL/RHEUMATOLOGICAL Hx Falls: No - GASTROINTESTINAL Hx Gastritis: Yes (gastroparesis) - GENITOURINARY/GYNECOLOGICAL Hx Genitourinary Disorders: No - PSYCHIATRIC Hx Substance Use: No - SURGICAL HISTORY Hx Surgeries: Yes Hx Cataract Extraction: Yes (bilateral) Hx Vascular Access Device: Yes Other/Comment: Hx RT.PERMACATH INSERTION 12/30. 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 Hx UNDESCENDED TESTES LT. REMOVED DURING CHILDHOOD - ANESTHESIA Hx Anesthesia: Yes Hx Anesthesia Reactions: No Hx Malignant Hyperthermia: No Meds Allergies/Adverse Reactions: Allergies Allergy/AdvReac Type Severity Reaction Status Date / Time No Known Allergies Allergy Verified 05/14/17 15:51 - Medications Medications: Current Medications Acetaminophen (Tylenol 325mg Tab) 650 mg PO Q6 PRN PRN Reason: Fever >100.4 F Last Admin: 05/15/17 20:10 Dose: 650 mg Amlodipine Besylate (Norvasc) 10 mg PO DAILY [facility] Last Admin: 05/15/17 09:00 Dose: Not Given Clonidine HCl (Catapres) 0.3 mg PO TID [facility] Last Admin: 05/15/17 17:52 Dose: Not Given Heparin Sodium (Porcine) (Heparin) 5,000 units SC BID [facility] Last Admin: 05/15/17 17:48 Dose: 5,000 units Hydralazine HCl (Apresoline) 50 mg PO TID [facility] Last Admin: 05/15/17 17:52 Dose: Not Given Hydromorphone HCl (Dilaudid) 1 mg IVP Q4H PRN PRN Reason: pain Last Admin: 05/15/17 20:15 Dose: 1 mg Fluconazole (Diflucan Iv 200 Mg/100 Ml Ns) 100 mls @ 100 mls/hr IVPB DAILY [facility] PRN Reason: Protocol Last Admin: 05/15/17 10:06 Dose: 100 mls/hr Vancomycin/Sodium Chloride (Vancomycin 1 Gm/Ns 200 Ml) 1 gm in 200 mls @ 133.333 mls/hr IVPB ONCE ONE PRN Reason: Protocol Stop: 05/15/17 23:59 Meropenem 500 mg/ Sodium (Chloride) 100 mls @ 100 mls/hr IVPB Q12 [facility] PRN Reason: Protocol Insulin Human Regular (Novolin R) 0 unit SC ACHS [facility] PRN Reason: Protocol Last Admin: 05/15/17 16:16 Dose: Not Given Metoclopramide HCl (Reglan) 10 mg IVP ACHS [facility] Last Admin: 05/15/17 16:26 Dose: 10 mg Ondansetron HCl (Zofran Inj) 4 mg IVP Q6 PRN PRN Reason: nausea and vomiting Last Admin: 05/15/17 06:58 Dose: 4 mg Pantoprazole Sodium (Protonix Inj) 40 mg IVP DAILY [facility] Last Admin: 05/15/17 09:51 Dose: 40 mg Results - Vital Signs Recent Vital Signs: Last Vital Signs Temp 102 F H 05/15/17 20:10 Pulse 102 H 05/15/17 20:00 Resp 23 05/15/17 20:00 BP 133/56 L 05/15/17 19:23 Pulse Ox 95 05/15/17 18:30 - Labs Result Diagrams: 05/15/17 06:40 05/15/17 12:16 Labs: Laboratory Results - last 24 hr 05/14/17 05/14/17 05/14/17 22:16 22:39 22:48 WBC RBC Hgb Hct MCV MCH MCHC RDW Plt Count MPV Neut % (Auto) Lymph % (Auto) [place] % (Auto) Eos % (Auto) Baso % (Auto) Neut # (Auto) Lymph # (Auto) [place] # (Auto) Eos # (Auto) Baso # (Auto) Neutrophils % (Manual) Band Neutrophils % Lymphocytes % (Manual) Monocytes % (Manual) Eosinophils % (Manual) Toxic Granulation Platelet Estimate Large Platelets Polychromasia Hypochromasia (manual) Anisocytosis (manual) PT 11.4 INR 1.0 APTT 22 Sodium Potassium Chloride Carbon Dioxide Anion Gap BUN Creatinine Est GFR ( Amer) Est GFR (Non-Af Amer) POC Glucose (mg/dL) 368 H Random Glucose Lactic Acid 5.8 H* Calcium Phosphorus Magnesium Total Bilirubin AST ALT Alkaline Phosphatase Total Protein Albumin Globulin Albumin/Globulin Ratio Procalcitonin 05/15/17 05/15/17 05/15/17 01:59 06:40 06:40 WBC 28.6 H RBC 3.48 L Hgb 9.8 L Hct 30.2 L MCV 86.8 MCH 28.3 MCHC 32.6 L RDW 18.2 H Plt Count 160 D MPV 10.3 Neut % (Auto) 91.3 H Lymph % (Auto) 1.6 L [place] % (Auto) 6.1 Eos % (Auto) 0.0 Baso % (Auto) 1.0 Neut # (Auto) 26.1 H Lymph # (Auto) 0.5 L [place] # (Auto) 1.7 H Eos # (Auto) 0.0 Baso # (Auto) 0.3 H Neutrophils % (Manual) 79 H Band Neutrophils % 18 H* Lymphocytes % (Manual) 1 L Monocytes % (Manual) 1 Eosinophils % (Manual) 1 Toxic Granulation Present Platelet Estimate Normal Large Platelets Present Polychromasia Slight Hypochromasia (manual) Slight Anisocytosis (manual) Slight PT INR APTT Sodium Potassium Chloride Carbon Dioxide Anion Gap BUN Creatinine Est GFR ( Amer) Est GFR (Non-Af Amer) POC Glucose (mg/dL) Random Glucose Lactic Acid 5.3 H* Calcium Phosphorus Magnesium Total Bilirubin AST ALT Alkaline Phosphatase Total Protein Albumin Globulin Albumin/Globulin Ratio Procalcitonin 0.76 H 05/15/17 05/15/17 05/15/17 06:40 07:47 11:28 WBC RBC Hgb Hct MCV MCH MCHC RDW Plt Count MPV Neut % (Auto) Lymph % (Auto) [place] % (Auto) Eos % (Auto) Baso % (Auto) Neut # (Auto) Lymph # (Auto) [place] # (Auto) Eos # (Auto) Baso # (Auto) Neutrophils % (Manual) Band Neutrophils % Lymphocytes % (Manual) Monocytes % (Manual) Eosinophils % (Manual) Toxic Granulation Platelet Estimate Large Platelets Polychromasia Hypochromasia (manual) Anisocytosis (manual) PT INR APTT Sodium 136 Potassium 6.1 H Chloride 93 L Carbon Dioxide 24 Anion Gap 25 H BUN 40 H Creatinine 5.7 H Est GFR ( Amer) 14 Est GFR (Non-Af Amer) 11 POC Glucose (mg/dL) 387 H 260 H Random Glucose 423 H* D Lactic Acid Calcium 8.3 L Phosphorus 6.1 H Magnesium 1.6 Total Bilirubin 0.6 AST 30 ALT 12 L D Alkaline Phosphatase 116 Total Protein 7.2 Albumin 3.5 Globulin 3.7 Albumin/Globulin Ratio 1.0 Procalcitonin 05/15/17 05/15/17 05/15/17 12:16 12:16 16:12 WBC RBC Hgb Hct MCV MCH MCHC RDW Plt Count MPV Neut % (Auto) Lymph % (Auto) [place] % (Auto) Eos % (Auto) Baso % (Auto) Neut # (Auto) Lymph # (Auto) [place] # (Auto) Eos # (Auto) Baso # (Auto) Neutrophils % (Manual) Band Neutrophils % Lymphocytes % (Manual) Monocytes % (Manual) Eosinophils % (Manual) Toxic Granulation Platelet Estimate Large Platelets Polychromasia Hypochromasia (manual) Anisocytosis (manual) PT INR APTT Sodium 135 Potassium 5.2 Chloride 96 L Carbon Dioxide 24 Anion Gap 20 BUN 49 H Creatinine 6.5 H Est GFR ( Amer) 12 Est GFR (Non-Af Amer) 10 POC Glucose (mg/dL) 99 Random Glucose 246 H Lactic Acid 4.2 H* Calcium 7.6 L Phosphorus Magnesium Total Bilirubin AST ALT Alkaline Phosphatase Total Protein Albumin Globulin Albumin/Globulin Ratio Procalcitonin
[2017-05-15] MEDS: Meropenem 500 MG in Sodium Chloride 0.9% 100 ML IVPB SCH (21:29)
[2017-05-15] MEDS ORDERED: Vancomycin 1 gm/NS 200 ml 1 GM/200 ML BAG IVPB ONE (22:30)
[2017-05-16] MEDS: HYDROmorphone 1 mg/ml ISec IVP PRN ×4 (03:00→21:06)
[2017-05-16 06:45] LABS: BASO # 0.1 K/uL (0.0-0.2); BASO % 0.5 % (0.0-2.0); HEMOGLOBIN 8.3 g/dL (12.0-18.0); LYMPH # 0.4 K/uL (1.0-4.3); LYMPH % 2.2 % (20.0-40.0); MEAN CORPUSCULAR HEMOGLOBIN 28.4 pg (27.0-31.0); MEAN CORPUSCULAR HGB CONC 32.6 g/dL (33.0-37.0); MEAN PLATELET VOLUME 9.7 fL (7.2-11.7); MONO # 0.6 K/uL (0.0-0.8); MONO % 3.6 % (0.0-10.0); NEUT # 16.9 K/uL (1.8-7.0); NEUT % 93.7 % (50.0-75.0); PLATELET COUNT 149 K/uL (130-400); RBC 2.93 Mil/uL (4.40-5.90); RED CELL DISTRIBUTION WIDTH 18.4 % (11.5-14.5)
[2017-05-16 07:58] LABS: ALB/GLOB RATIO 0.9 (1.0-2.1)
[2017-05-16 08:08] LABS: ANISOCYTOSIS MODERATE; BANDS 7 % (0-2); HYPOCHROMIC SLIGHT; LYMPHOCYTE 1 % (20-40); MONOCYTE 4 % (0-10); NEUTROPHIL 88 % (50-75); PLATELET ESTIMATE NORMAL (NORMAL); TOTAL CELLS COUNTED 100; TOXIC GRANULATION PRESENT
[2017-05-16 08:10] LABS: GIANT PLATELETS PRESENT; LARGE PLATELETS PRESENT
[2017-05-16] MEDS: (Novolin R) Insulin Human Regular 100 units/ml vial SC SCH ×4 (08:31→21:44)
[2017-05-16] MEDS ORDERED: EPOETIN ALFA 4,000 UNIT/ML ML Dialysis SC SCH (09:00)
--- NOTE | 2017-05-16 09:59 | CP.CCUPN ---
<Qing Zambrano - Last Filed: 05/16/17 13:47> CCU Subjective - Physician Review Subjective (Free Text): 05/16/17 09:58 Patient seen and examined at bedside. Per nursing, patient was complaining of chest pain 5/10 this morning. EKG ordered. Tmax 100.5, for hemodialysis today. CCU Objective - Vital Signs / Intake & Output Vital Signs (Last 4 hours): Vital Signs Temp Pulse Resp BP Pulse Ox 05/16/17 09:00 79 11 L 92 L 05/16/17 08:43 77 14 128/71 91 L 05/16/17 08:23 82 12 123/67 91 L 05/16/17 08:00 98.9 F 77 12 95 05/16/17 07:23 77 11 L 113/70 91 L 05/16/17 07:00 77 12 95 05/16/17 06:23 79 16 109/64 89 L 05/16/17 06:00 106 H 18 Intake and Output (Last 8hrs): Intake & Output 05/15/17 05/16/17 05/16/17 22:59 06:59 14:59 Intake Total 430 50 0 Output Total 250 0 0 Balance 180 50 0 Weight 57.561 kg Intake: Intake, IV Amount 300 R hand 300 Oral 130 50 0 Output: Urine 250 0 0 Urine, Voided 250 0 0 - Physical Exam Head: Positive for: Atraumatic, Normocephalic Pupils: Positive for: PERRL Extroacular Muscles: Positive for: EOMI Conjunctiva: Positive for: Normal Mouth: Positive for: Moist Mucous Membranes Respiratory/Chest: Positive for: Clear to Auscultation, Good Air Exchange. Negative for: Respiratory Distress, Accessory Muscle Use Cardiovascular: Positive for: Regular Rate and Rhythm, Normal S1, S2 Abdomen: Positive for: Tenderness. Negative for: Distention Upper Extremity: Positive for: Normal Inspection, Other (Left AVF) Lower Extremity: Positive for: Normal Inspection Skin: Positive for: Warm, Dry, Normal Color Psychiatric: Positive for: Alert, Oriented x 3 - Medications Active Medications: Active Medications Generic Name Dose Route Start Last Admin Trade Name Freq PRN Reason Stop Dose Admin Acetaminophen 650 mg 05/15/17 14:36 05/16/17 04:47 Tylenol 325mg Tab PO 650 mg Q6 PRN Administration Fever >100.4 F Amlodipine Besylate 10 mg 05/15/17 10:00 05/15/17 09:00 Norvasc PO Not Given DAILY [facility] Calcium Acetate 667 mg 05/16/17 08:00 05/16/17 08:47 Phoslo PO Not Given TIDCC [facility] Clonidine HCl 0.3 mg 05/15/17 10:00 05/16/17 09:26 Catapres PO Not Given TID [facility] Epoetin Oumar 4,000 unit 05/16/17 09:00 Procrit SC MWF [facility] Heparin Sodium (Porcine) 5,000 units 05/15/17 10:00 05/15/17 17:48 Heparin SC 5,000 units BID [facility] Administration Hydralazine HCl 50 mg 05/15/17 10:00 05/16/17 09:26 Apresoline PO Not Given TID [facility] Hydromorphone HCl 1 mg 05/14/17 19:48 05/16/17 08:49 Dilaudid IVP 1 mg Q4H PRN Administration pain Fluconazole 100 mls @ 100 mls/hr 05/15/17 11:00 05/15/17 10:06 Diflucan Iv 200 Mg/100 Ml Ns IVPB 100 mls/hr DAILY [facility] Administration Protocol Meropenem 500 mg/ Sodium 100 mls @ 100 mls/hr 05/15/17 22:00 05/15/17 21:29 Chloride IVPB 100 mls/hr Q12 [facility] Administration Protocol Insulin Human Regular 0 unit 05/15/17 07:30 05/16/17 08:31 Novolin R SC 1 unit ACHS [facility] Administration Protocol Metoclopramide HCl 10 mg 05/15/17 07:30 05/16/17 07:45 Reglan IVP 10 mg ACHS [facility] Administration Ondansetron HCl 4 mg 05/14/17 19:48 05/15/17 06:58 Zofran Inj IVP 4 mg Q6 PRN Administration nausea and vomiting Pantoprazole Sodium 40 mg 05/15/17 10:00 05/15/17 09:51 Protonix Inj IVP 40 mg DAILY [facility] Administration - Patient Studies Lab Studies: Microbiology Studies 05/14/17 22:19 S.aureus & Coag-Neg Staph PNA FISH - Final Blood-Venous Blood Culture - Preliminary Gram Positive Cocci Gram Stain - Final 05/14/17 22:19 Blood Culture - Preliminary Blood-Venous Gram Positive Cocci Gram Stain - Final Lab Studies 05/16/17 05/16/17 05/16/17 Range/Units 07:43 06:34 06:34 WBC 18.0 H (4.8-10.8) K/uL RBC 2.93 L (4.40-5.90) Mil/uL Hgb 8.3 L (12.0-18.0) g/dL Hct 25.5 L (35.0-51.0) % MCV 87.0 (80.0-94.0) fL MCH 28.4 (27.0-31.0) pg MCHC 32.6 L (33.0-37.0) g/dL RDW 18.4 H (11.5-14.5) % Plt Count 149 (130-400) K/uL MPV 9.7 (7.2-11.7) fL Neut % (Auto) 93.7 H (50.0-75.0) % Lymph % (Auto) 2.2 L (20.0-40.0) % [place] % (Auto) 3.6 (0.0-10.0) % Eos % (Auto) 0.0 (0.0-4.0) % Baso % (Auto) 0.5 (0.0-2.0) % Neut # (Auto) 16.9 H (1.8-7.0) K/uL Lymph # (Auto) 0.4 L (1.0-4.3) K/uL [place] # (Auto) 0.6 (0.0-0.8) K/uL Eos # (Auto) 0.0 (0.0-0.7) K/uL Baso # (Auto) 0.1 (0.0-0.2) K/uL Neutrophils % (Manual) 88 H (50-75) % Band Neutrophils % 7 H (0-2) % Lymphocytes % (Manual) 1 L (20-40) % Monocytes % (Manual) 4 (0-10) % Toxic Granulation Present Platelet Estimate Normal (NORMAL) Large Platelets Present Giant Platelets Present Hypochromasia (manual) Slight Anisocytosis (manual) Moderate Sodium 131 L (132-148) mmol/L Potassium 6.9 H* D (3.6-5.2) mmol/L Chloride 93 L (98-107) mmol/L Carbon Dioxide 24 (22-30) mmol/L Anion Gap 21 H (10-20) BUN 60 H (9-20) mg/dL Creatinine 7.8 H* (0.8-1.5) mg/dL Est GFR ( Amer) 10 Est GFR (Non-Af Amer) 8 POC Glucose (mg/dL) 177 H (65-110) mg/dL Random Glucose 173 H (75-110) mg/dL Lactic Acid (0.7-2.1) mmol/L Calcium 7.0 L (8.6-10.4) mg/dl Phosphorus 6.5 H (2.5-4.5) mg/dL Magnesium 1.6 (1.6-2.3) mg/dL Total Bilirubin 0.6 (0.2-1.3) mg/dL AST 33 (17-59) U/L ALT 11 L (21-72) U/L Alkaline Phosphatase 83 (38-126) U/L Total Protein 6.3 (6.3-8.3) g/dL Albumin 3.0 L (3.5-5.0) g/dL Globulin 3.3 (2.2-3.9) gm/dL Albumin/Globulin Ratio 0.9 L (1.0-2.1) Procalcitonin (0.19-0.49) NG/ML Random Vancomycin ug/mL 05/16/17 05/15/17 05/15/17 Range/Units 06:34 21:16 16:12 WBC (4.8-10.8) K/uL RBC (4.40-5.90) Mil/uL Hgb (12.0-18.0) g/dL Hct (35.0-51.0) % MCV (80.0-94.0) fL MCH (27.0-31.0) pg MCHC (33.0-37.0) g/dL RDW (11.5-14.5) % Plt Count (130-400) K/uL MPV (7.2-11.7) fL Neut % (Auto) (50.0-75.0) % Lymph % (Auto) (20.0-40.0) % [place] % (Auto) (0.0-10.0) % Eos % (Auto) (0.0-4.0) % Baso % (Auto) (0.0-2.0) % Neut # (Auto) (1.8-7.0) K/uL Lymph # (Auto) (1.0-4.3) K/uL [place] # (Auto) (0.0-0.8) K/uL Eos # (Auto) (0.0-0.7) K/uL Baso # (Auto) (0.0-0.2) K/uL Neutrophils % (Manual) (50-75) % Band Neutrophils % (0-2) % Lymphocytes % (Manual) (20-40) % Monocytes % (Manual) (0-10) % Toxic Granulation Platelet Estimate (NORMAL) Large Platelets Giant Platelets Hypochromasia (manual) Anisocytosis (manual) Sodium (132-148) mmol/L Potassium (3.6-5.2) mmol/L Chloride (98-107) mmol/L Carbon Dioxide (22-30) mmol/L Anion Gap (10-20) BUN (9-20) mg/dL Creatinine (0.8-1.5) mg/dL Est GFR ( Amer) Est GFR (Non-Af Amer) POC Glucose (mg/dL) 159 H 99 (65-110) mg/dL Random Glucose (75-110) mg/dL Lactic Acid (0.7-2.1) mmol/L Calcium (8.6-10.4) mg/dl Phosphorus (2.5-4.5) mg/dL Magnesium (1.6-2.3) mg/dL Total Bilirubin (0.2-1.3) mg/dL AST (17-59) U/L ALT (21-72) U/L Alkaline Phosphatase (38-126) U/L Total Protein (6.3-8.3) g/dL Albumin (3.5-5.0) g/dL Globulin (2.2-3.9) gm/dL Albumin/Globulin Ratio (1.0-2.1) Procalcitonin (0.19-0.49) NG/ML Random Vancomycin 28.65 ug/mL 05/15/17 05/15/17 05/15/17 Range/Units 12:16 12:16 11:28 WBC (4.8-10.8) K/uL RBC (4.40-5.90) Mil/uL Hgb (12.0-18.0) g/dL Hct (35.0-51.0) % MCV (80.0-94.0) fL MCH (27.0-31.0) pg MCHC (33.0-37.0) g/dL RDW (11.5-14.5) % Plt Count (130-400) K/uL MPV (7.2-11.7) fL Neut % (Auto) (50.0-75.0) % Lymph % (Auto) (20.0-40.0) % [place] % (Auto) (0.0-10.0) % Eos % (Auto) (0.0-4.0) % Baso % (Auto) (0.0-2.0) % Neut # (Auto) (1.8-7.0) K/uL Lymph # (Auto) (1.0-4.3) K/uL [place] # (Auto) (0.0-0.8) K/uL Eos # (Auto) (0.0-0.7) K/uL Baso # (Auto) (0.0-0.2) K/uL Neutrophils % (Manual) (50-75) % Band Neutrophils % (0-2) % Lymphocytes % (Manual) (20-40) % Monocytes % (Manual) (0-10) % Toxic Granulation Platelet Estimate (NORMAL) Large Platelets Giant Platelets Hypochromasia (manual) Anisocytosis (manual) Sodium 135 (132-148) mmol/L Potassium 5.2 (3.6-5.2) mmol/L Chloride 96 L (98-107) mmol/L Carbon Dioxide 24 (22-30) mmol/L Anion Gap 20 (10-20) BUN 49 H (9-20) mg/dL Creatinine 6.5 H (0.8-1.5) mg/dL Est GFR ( Amer) 12 Est GFR (Non-Af Amer) 10 POC Glucose (mg/dL) 260 H (65-110) mg/dL Random Glucose 246 H (75-110) mg/dL Lactic Acid 4.2 H* (0.7-2.1) mmol/L Calcium 7.6 L (8.6-10.4) mg/dl Phosphorus (2.5-4.5) mg/dL Magnesium (1.6-2.3) mg/dL Total Bilirubin (0.2-1.3) mg/dL AST (17-59) U/L ALT (21-72) U/L Alkaline Phosphatase (38-126) U/L Total Protein (6.3-8.3) g/dL Albumin (3.5-5.0) g/dL Globulin (2.2-3.9) gm/dL Albumin/Globulin Ratio (1.0-2.1) Procalcitonin (0.19-0.49) NG/ML Random Vancomycin ug/mL 05/15/17 05/15/17 Range/Units 07:47 06:40 WBC (4.8-10.8) K/uL RBC (4.40-5.90) Mil/uL Hgb (12.0-18.0) g/dL Hct (35.0-51.0) % MCV (80.0-94.0) fL MCH (27.0-31.0) pg MCHC (33.0-37.0) g/dL RDW (11.5-14.5) % Plt Count (130-400) K/uL MPV (7.2-11.7) fL Neut % (Auto) (50.0-75.0) % Lymph % (Auto) (20.0-40.0) % [place] % (Auto) (0.0-10.0) % Eos % (Auto) (0.0-4.0) % Baso % (Auto) (0.0-2.0) % Neut # (Auto) (1.8-7.0) K/uL Lymph # (Auto) (1.0-4.3) K/uL [place] # (Auto) (0.0-0.8) K/uL Eos # (Auto) (0.0-0.7) K/uL Baso # (Auto) (0.0-0.2) K/uL Neutrophils % (Manual) (50-75) % Band Neutrophils % (0-2) % Lymphocytes % (Manual) (20-40) % Monocytes % (Manual) (0-10) % Toxic Granulation Platelet Estimate (NORMAL) Large Platelets Giant Platelets Hypochromasia (manual) Anisocytosis (manual) Sodium (132-148) mmol/L Potassium (3.6-5.2) mmol/L Chloride (98-107) mmol/L Carbon Dioxide (22-30) mmol/L Anion Gap (10-20) BUN (9-20) mg/dL Creatinine (0.8-1.5) mg/dL Est GFR ( Amer) Est GFR (Non-Af Amer) POC Glucose (mg/dL) 387 H (65-110) mg/dL Random Glucose (75-110) mg/dL Lactic Acid (0.7-2.1) mmol/L Calcium (8.6-10.4) mg/dl Phosphorus (2.5-4.5) mg/dL Magnesium (1.6-2.3) mg/dL Total Bilirubin (0.2-1.3) mg/dL AST (17-59) U/L ALT (21-72) U/L Alkaline Phosphatase (38-126) U/L Total Protein (6.3-8.3) g/dL Albumin (3.5-5.0) g/dL Globulin (2.2-3.9) gm/dL Albumin/Globulin Ratio (1.0-2.1) Procalcitonin 0.76 H (0.19-0.49) NG/ML Random Vancomycin ug/mL Laboratory Results - last 24 hr 05/15/17 05/15/17 05/15/17 06:40 07:47 11:28 WBC RBC Hgb Hct MCV MCH MCHC RDW Plt Count MPV Neut % (Auto) Lymph % (Auto) [place] % (Auto) Eos % (Auto) Baso % (Auto) Neut # (Auto) Lymph # (Auto) [place] # (Auto) Eos # (Auto) Baso # (Auto) Neutrophils % (Manual) Band Neutrophils % Lymphocytes % (Manual) Monocytes % (Manual) Toxic Granulation Platelet Estimate Large Platelets Giant Platelets Hypochromasia (manual) Anisocytosis (manual) Sodium Potassium Chloride Carbon Dioxide Anion Gap BUN Creatinine Est GFR ( Amer) Est GFR (Non-Af Amer) POC Glucose (mg/dL) 387 H 260 H Random Glucose Lactic Acid Calcium Phosphorus Magnesium Total Bilirubin AST ALT Alkaline Phosphatase Total Protein Albumin Globulin Albumin/Globulin Ratio Procalcitonin 0.76 H Random Vancomycin 05/15/17 05/15/17 05/15/17 12:16 12:16 16:12 WBC RBC Hgb Hct MCV MCH MCHC RDW Plt Count MPV Neut % (Auto) Lymph % (Auto) [place] % (Auto) Eos % (Auto) Baso % (Auto) Neut # (Auto) Lymph # (Auto) [place] # (Auto) Eos # (Auto) Baso # (Auto) Neutrophils % (Manual) Band Neutrophils % Lymphocytes % (Manual) Monocytes % (Manual) Toxic Granulation Platelet Estimate Large Platelets Giant Platelets Hypochromasia (manual) Anisocytosis (manual) Sodium 135 Potassium 5.2 Chloride 96 L Carbon Dioxide 24 Anion Gap 20 BUN 49 H Creatinine 6.5 H Est GFR ( Amer) 12 Est GFR (Non-Af Amer) 10 POC Glucose (mg/dL) 99 Random Glucose 246 H Lactic Acid 4.2 H* Calcium 7.6 L Phosphorus Magnesium Total Bilirubin AST ALT Alkaline Phosphatase Total Protein Albumin Globulin Albumin/Globulin Ratio Procalcitonin Random Vancomycin 05/15/17 05/16/17 05/16/17 21:16 06:34 06:34 WBC 18.0 H RBC 2.93 L Hgb 8.3 L Hct 25.5 L MCV 87.0 MCH 28.4 MCHC 32.6 L RDW 18.4 H Plt Count 149 MPV 9.7 Neut % (Auto) 93.7 H Lymph % (Auto) 2.2 L [place] % (Auto) 3.6 Eos % (Auto) 0.0 Baso % (Auto) 0.5 Neut # (Auto) 16.9 H Lymph # (Auto) 0.4 L [place] # (Auto) 0.6 Eos # (Auto) 0.0 Baso # (Auto) 0.1 Neutrophils % (Manual) 88 H Band Neutrophils % 7 H Lymphocytes % (Manual) 1 L Monocytes % (Manual) 4 Toxic Granulation Present Platelet Estimate Normal Large Platelets Present Giant Platelets Present Hypochromasia (manual) Slight Anisocytosis (manual) Moderate Sodium Potassium Chloride Carbon Dioxide Anion Gap BUN Creatinine Est GFR ( Amer) Est GFR (Non-Af Amer) POC Glucose (mg/dL) 159 H Random Glucose Lactic Acid Calcium Phosphorus Magnesium Total Bilirubin AST ALT Alkaline Phosphatase Total Protein Albumin Globulin Albumin/Globulin Ratio Procalcitonin Random Vancomycin 28.65 05/16/17 05/16/17 06:34 07:43 WBC RBC Hgb Hct MCV MCH MCHC RDW Plt Count MPV Neut % (Auto) Lymph % (Auto) [place] % (Auto) Eos % (Auto) Baso % (Auto) Neut # (Auto) Lymph # (Auto) [place] # (Auto) Eos # (Auto) Baso # (Auto) Neutrophils % (Manual) Band Neutrophils % Lymphocytes % (Manual) Monocytes % (Manual) Toxic Granulation Platelet Estimate Large Platelets Giant Platelets Hypochromasia (manual) Anisocytosis (manual) Sodium 131 L Potassium 6.9 H* D Chloride 93 L Carbon Dioxide 24 Anion Gap 21 H BUN 60 H Creatinine 7.8 H* Est GFR ( Amer) 10 Est GFR (Non-Af Amer) 8 POC Glucose (mg/dL) 177 H Random Glucose 173 H Lactic Acid Calcium 7.0 L Phosphorus 6.5 H Magnesium 1.6 Total Bilirubin 0.6 AST 33 ALT 11 L Alkaline Phosphatase 83 Total Protein 6.3 Albumin 3.0 L Globulin 3.3 Albumin/Globulin Ratio 0.9 L Procalcitonin Random Vancomycin EKG/Cardiology Studies: Cardiology / EKG Studies 05/16/17 09:04 EKG [ELECTROCARDIOGRAM] Stat Comment: Mode Of Transportation: Reason For Exam: chest pain Fingerstick Blood Sugar Results: 177 Critical Care Progress Note - Nutrition Nutrition: Nutrition Category Date Time Status Renal Diet [DIET] Diets 05/16/17 Breakfast Active Assessment/Plan - Assessment and Plan (Free Text) Assessment: Patient is a 36 year old male with past medical history of ESRD on HD (MWF), Diabetes Mellitus, Gastroparesis, multiple hospital admissions presented with abdominal pain with nausea and vomiting. -Stable, Last Temp 100.5 -Tylenol prn fever -Patient with Gram postive bacteremia, sepsis, source unclear at this time -Leukocytosis trending down 18.0 today, lactate 3.9 -F/U c diff, fecal leukocytes, stool culture -ID on consult, help appreciated -Echo ordered, f/u report; patient may need DINO -Antibiotics: Merrem 500mg Q12H IV, Diflucan 200mg IV daily -F/U vanco random tomorrow -Hyperkalemia, Going for hemodialysis today -CXR showed pulmonary venous congestion -CT abd/pelvis showed mild atelectasis both posterior lower lung zones. Scattered nodular opacities throughout upper and lower lobes and well as lingular and middle lobe regions possible representing a multifocal early pneumonia. Hiatal hernia. Cardiomegaly. Minor wall thickeing of a few loops of proximal small bowel. Wall thickening of the descending colon. Bladder wall thickening. (see full report) -Off Cardene drip, BPs appear stable; will hold BP medications until after hemodialysis <Pop Crandall - Last Filed: 05/16/17 18:44> CCU Objective - Vital Signs / Intake & Output Vital Signs (Last 4 hours): Vital Signs Temp Pulse Resp BP Pulse Ox 05/16/17 17:00 89 11 L 91 L 05/16/17 16:55 144/74 05/16/17 16:00 92 H 13 05/16/17 15:55 94 H 16 145/73 05/16/17 15:42 100.7 F H 05/16/17 15:00 104 H 12 96 05/16/17 14:55 104 H 14 180/88 H 95 Intake and Output (Last 8hrs): Intake & Output 05/16/17 05/16/17 05/16/17 06:59 14:59 22:59 Intake Total 50 500 100 Output Total 0 150 Balance 50 350 100 Weight 126 lb 14.4 oz 57 lb 9.6 oz Intake: Intake, IV Amount 200 Right Antecubital 200 Oral 50 300 100 Output: Urine 0 150 Urine, Voided 0 150 Other: # Bowel Movements 1 1 - Medications Active Medications: Active Medications Generic Name Dose Route Start Last Admin Trade Name Freq PRN Reason Stop Dose Admin Acetaminophen 650 mg 05/15/17 14:36 05/16/17 10:57 Tylenol 325mg Tab PO 650 mg Q6 PRN Administration Fever >100.4 F Amlodipine Besylate 10 mg 05/15/17 10:00 05/15/17 09:00 Norvasc PO Not Given DAILY [facility] Calcium Acetate 667 mg 05/16/17 08:00 05/16/17 17:40 Phoslo PO 667 mg TIDCC [facility] Administration Clonidine HCl 0.3 mg 05/15/17 10:00 05/16/17 14:42 Catapres PO 0.3 mg TID [facility] Administration Epoetin Oumar 8,000 unit 05/16/17 11:45 05/16/17 13:28 Procrit IV Not Given MWF [facility] Heparin Sodium (Porcine) 5,000 units 05/15/17 10:00 05/16/17 13:53 Heparin SC 5,000 units BID [facility] Administration Hydralazine HCl 50 mg 05/15/17 10:00 05/16/17 09:26 Apresoline PO Not Given TID [facility] Hydromorphone HCl 1 mg 05/14/17 19:48 05/16/17 14:42 Dilaudid IVP 1 mg Q4H PRN Administration pain Fluconazole 100 mls @ 100 mls/hr 05/15/17 11:00 05/16/17 14:09 Diflucan Iv 200 Mg/100 Ml Ns IVPB 100 mls/hr DAILY [facility] Administration Protocol Insulin Human Regular 0 unit 05/15/17 07:30 05/16/17 17:39 Novolin R SC 2 unit ACHS [facility] Administration Protocol Metoclopramide HCl 10 mg 05/15/17 07:30 05/16/17 17:40 Reglan IVP 10 mg ACHS [facility] Administration Ondansetron HCl 4 mg 05/14/17 19:48 05/15/17 06:58 Zofran Inj IVP 4 mg Q6 PRN Administration nausea and vomiting Pantoprazole Sodium 40 mg 05/15/17 10:00 05/16/17 13:20 Protonix Inj IVP 40 mg DAILY [facility] Administration - Patient Studies Lab Studies: Microbiology Studies 05/15/17 01:31 MRSA Culture (Admit) - Final Naris MRSA NOT DETECTED 05/14/17 22:19 S.aureus & Coag-Neg Staph PNA FISH - Final Blood-Venous Blood Culture - Preliminary Gram Positive Cocci Gram Stain - Final 05/14/17 22:19 Blood Culture - Preliminary Blood-Venous Gram Positive Cocci Gram Stain - Final Lab Studies 05/16/17 05/16/17 05/16/17 Range/Units 16:15 11:37 11:26 WBC (4.8-10.8) K/uL RBC (4.40-5.90) Mil/uL Hgb (12.0-18.0) g/dL Hct (35.0-51.0) % MCV (80.0-94.0) fL MCH (27.0-31.0) pg MCHC (33.0-37.0) g/dL RDW (11.5-14.5) % Plt Count (130-400) K/uL MPV (7.2-11.7) fL Neut % (Auto) (50.0-75.0) % Lymph % (Auto) (20.0-40.0) % [place] % (Auto) (0.0-10.0) % Eos % (Auto) (0.0-4.0) % Baso % (Auto) (0.0-2.0) % Neut # (Auto) (1.8-7.0) K/uL Lymph # (Auto) (1.0-4.3) K/uL [place] # (Auto) (0.0-0.8) K/uL Eos # (Auto) (0.0-0.7) K/uL Baso # (Auto) (0.0-0.2) K/uL Neutrophils % (Manual) (50-75) % Band Neutrophils % (0-2) % Lymphocytes % (Manual) (20-40) % Monocytes % (Manual) (0-10) % Toxic Granulation Platelet Estimate (NORMAL) Large Platelets Giant Platelets Hypochromasia (manual) Anisocytosis (manual) PT (9.7-12.2) SECONDS INR APTT (21-34) SECONDS Sodium (132-148) mmol/L Potassium (3.6-5.2) mmol/L Chloride (98-107) mmol/L Carbon Dioxide (22-30) mmol/L Anion Gap (10-20) BUN (9-20) mg/dL Creatinine (0.8-1.5) mg/dL Est GFR ( Amer) Est GFR (Non-Af Amer) POC Glucose (mg/dL) 224 H 109 (65-110) mg/dL Random Glucose (75-110) mg/dL Lactic Acid 3.9 H (0.7-2.1) mmol/L Calcium (8.6-10.4) mg/dl Phosphorus (2.5-4.5) mg/dL Magnesium (1.6-2.3) mg/dL Total Bilirubin (0.2-1.3) mg/dL AST (17-59) U/L ALT (21-72) U/L Alkaline Phosphatase (38-126) U/L Total Protein (6.3-8.3) g/dL Albumin (3.5-5.0) g/dL Globulin (2.2-3.9) gm/dL Albumin/Globulin Ratio (1.0-2.1) Stool Leukocytes, Qual (NEGATIVE) Random Vancomycin ug/mL 05/16/17 05/16/17 05/16/17 Range/Units 09:51 07:43 06:34 WBC (4.8-10.8) K/uL RBC (4.40-5.90) Mil/uL Hgb (12.0-18.0) g/dL Hct (35.0-51.0) % MCV (80.0-94.0) fL MCH (27.0-31.0) pg MCHC (33.0-37.0) g/dL RDW (11.5-14.5) % Plt Count (130-400) K/uL MPV (7.2-11.7) fL Neut % (Auto) (50.0-75.0) % Lymph % (Auto) (20.0-40.0) % [place] % (Auto) (0.0-10.0) % Eos % (Auto) (0.0-4.0) % Baso % (Auto) (0.0-2.0) % Neut # (Auto) (1.8-7.0) K/uL Lymph # (Auto) (1.0-4.3) K/uL [place] # (Auto) (0.0-0.8) K/uL Eos # (Auto) (0.0-0.7) K/uL Baso # (Auto) (0.0-0.2) K/uL Neutrophils % (Manual) (50-75) % Band Neutrophils % (0-2) % Lymphocytes % (Manual) (20-40) % Monocytes % (Manual) (0-10) % Toxic Granulation Platelet Estimate (NORMAL) Large Platelets Giant Platelets Hypochromasia (manual) Anisocytosis (manual) PT 12.5 H (9.7-12.2) SECONDS INR 1.1 APTT 28 D (21-34) SECONDS Sodium 131 L (132-148) mmol/L Potassium 6.9 H* D (3.6-5.2) mmol/L Chloride 93 L (98-107) mmol/L Carbon Dioxide 24 (22-30) mmol/L Anion Gap 21 H (10-20) BUN 60 H (9-20) mg/dL Creatinine 7.8 H* (0.8-1.5) mg/dL Est GFR ( Amer) 10 Est GFR (Non-Af Amer) 8 POC Glucose (mg/dL) 177 H (65-110) mg/dL Random Glucose 173 H (75-110) mg/dL Lactic Acid (0.7-2.1) mmol/L Calcium 7.0 L (8.6-10.4) mg/dl Phosphorus 6.5 H (2.5-4.5) mg/dL Magnesium 1.6 (1.6-2.3) mg/dL Total Bilirubin 0.6 (0.2-1.3) mg/dL AST 33 (17-59) U/L ALT 11 L (21-72) U/L Alkaline Phosphatase 83 (38-126) U/L Total Protein 6.3 (6.3-8.3) g/dL Albumin 3.0 L (3.5-5.0) g/dL Globulin 3.3 (2.2-3.9) gm/dL Albumin/Globulin Ratio 0.9 L (1.0-2.1) Stool Leukocytes, Qual (NEGATIVE) Random Vancomycin ug/mL 05/16/17 05/16/17 05/15/17 Range/Units 06:34 06:34 21:16 WBC 18.0 H (4.8-10.8) K/uL RBC 2.93 L (4.40-5.90) Mil/uL Hgb 8.3 L (12.0-18.0) g/dL Hct 25.5 L (35.0-51.0) % MCV 87.0 (80.0-94.0) fL MCH 28.4 (27.0-31.0) pg MCHC 32.6 L (33.0-37.0) g/dL RDW 18.4 H (11.5-14.5) % Plt Count 149 (130-400) K/uL MPV 9.7 (7.2-11.7) fL Neut % (Auto) 93.7 H (50.0-75.0) % Lymph % (Auto) 2.2 L (20.0-40.0) % [place] % (Auto) 3.6 (0.0-10.0) % Eos % (Auto) 0.0 (0.0-4.0) % Baso % (Auto) 0.5 (0.0-2.0) % Neut # (Auto) 16.9 H (1.8-7.0) K/uL Lymph # (Auto) 0.4 L (1.0-4.3) K/uL [place] # (Auto) 0.6 (0.0-0.8) K/uL Eos # (Auto) 0.0 (0.0-0.7) K/uL Baso # (Auto) 0.1 (0.0-0.2) K/uL Neutrophils % (Manual) 88 H (50-75) % Band Neutrophils % 7 H (0-2) % Lymphocytes % (Manual) 1 L (20-40) % Monocytes % (Manual) 4 (0-10) % Toxic Granulation Present Platelet Estimate Normal (NORMAL) Large Platelets Present Giant Platelets Present Hypochromasia (manual) Slight Anisocytosis (manual) Moderate PT (9.7-12.2) SECONDS INR APTT (21-34) SECONDS Sodium (132-148) mmol/L Potassium (3.6-5.2) mmol/L Chloride (98-107) mmol/L Carbon Dioxide (22-30) mmol/L Anion Gap (10-20) BUN (9-20) mg/dL Creatinine (0.8-1.5) mg/dL Est GFR ( Amer) Est GFR (Non-Af Amer) POC Glucose (mg/dL) 159 H (65-110) mg/dL Random Glucose (75-110) mg/dL Lactic Acid (0.7-2.1) mmol/L Calcium (8.6-10.4) mg/dl Phosphorus (2.5-4.5) mg/dL Magnesium (1.6-2.3) mg/dL Total Bilirubin (0.2-1.3) mg/dL AST (17-59) U/L ALT (21-72) U/L Alkaline Phosphatase (38-126) U/L Total Protein (6.3-8.3) g/dL Albumin (3.5-5.0) g/dL Globulin (2.2-3.9) gm/dL Albumin/Globulin Ratio (1.0-2.1) Stool Leukocytes, Qual (NEGATIVE) Random Vancomycin 28.65 ug/mL 05/15/17 Range/Units 11:40 WBC (4.8-10.8) K/uL RBC (4.40-5.90) Mil/uL Hgb (12.0-18.0) g/dL Hct (35.0-51.0) % MCV (80.0-94.0) fL MCH (27.0-31.0) pg MCHC (33.0-37.0) g/dL RDW (11.5-14.5) % Plt Count (130-400) K/uL MPV (7.2-11.7) fL Neut % (Auto) (50.0-75.0) % Lymph % (Auto) (20.0-40.0) % [place] % (Auto) (0.0-10.0) % Eos % (Auto) (0.0-4.0) % Baso % (Auto) (0.0-2.0) % Neut # (Auto) (1.8-7.0) K/uL Lymph # (Auto) (1.0-4.3) K/uL [place] # (Auto) (0.0-0.8) K/uL Eos # (Auto) (0.0-0.7) K/uL Baso # (Auto) (0.0-0.2) K/uL Neutrophils % (Manual) (50-75) % Band Neutrophils % (0-2) % Lymphocytes % (Manual) (20-40) % Monocytes % (Manual) (0-10) % Toxic Granulation Platelet Estimate (NORMAL) Large Platelets Giant Platelets Hypochromasia (manual) Anisocytosis (manual) PT (9.7-12.2) SECONDS INR APTT (21-34) SECONDS Sodium (132-148) mmol/L Potassium (3.6-5.2) mmol/L Chloride (98-107) mmol/L Carbon Dioxide (22-30) mmol/L Anion Gap (10-20) BUN (9-20) mg/dL Creatinine (0.8-1.5) mg/dL Est GFR ( Amer) Est GFR (Non-Af Amer) POC Glucose (mg/dL) (65-110) mg/dL Random Glucose (75-110) mg/dL Lactic Acid (0.7-2.1) mmol/L Calcium (8.6-10.4) mg/dl Phosphorus (2.5-4.5) mg/dL Magnesium (1.6-2.3) mg/dL Total Bilirubin (0.2-1.3) mg/dL AST (17-59) U/L ALT (21-72) U/L Alkaline Phosphatase (38-126) U/L Total Protein (6.3-8.3) g/dL Albumin (3.5-5.0) g/dL Globulin (2.2-3.9) gm/dL Albumin/Globulin Ratio (1.0-2.1) Stool Leukocytes, Qual Negative (NEGATIVE) Random Vancomycin ug/mL Laboratory Results - last 24 hr 05/15/17 05/15/17 05/16/17 11:40 21:16 06:34 WBC RBC Hgb Hct MCV MCH MCHC RDW Plt Count MPV Neut % (Auto) Lymph % (Auto) [place] % (Auto) Eos % (Auto) Baso % (Auto) Neut # (Auto) Lymph # (Auto) [place] # (Auto) Eos # (Auto) Baso # (Auto) Neutrophils % (Manual) Band Neutrophils % Lymphocytes % (Manual) Monocytes % (Manual) Toxic Granulation Platelet Estimate Large Platelets Giant Platelets Hypochromasia (manual) Anisocytosis (manual) PT INR APTT Sodium Potassium Chloride Carbon Dioxide Anion Gap BUN Creatinine Est GFR ( Amer) Est GFR (Non-Af Amer) POC Glucose (mg/dL) 159 H Random Glucose Lactic Acid Calcium Phosphorus Magnesium Total Bilirubin AST ALT Alkaline Phosphatase Total Protein Albumin Globulin Albumin/Globulin Ratio Stool Leukocytes, Qual Negative Random Vancomycin 28.65 05/16/17 05/16/17 05/16/17 06:34 06:34 07:43 WBC 18.0 H RBC 2.93 L Hgb 8.3 L Hct 25.5 L MCV 87.0 MCH 28.4 MCHC 32.6 L RDW 18.4 H Plt Count 149 MPV 9.7 Neut % (Auto) 93.7 H Lymph % (Auto) 2.2 L [place] % (Auto) 3.6 Eos % (Auto) 0.0 Baso % (Auto) 0.5 Neut # (Auto) 16.9 H Lymph # (Auto) 0.4 L [place] # (Auto) 0.6 Eos # (Auto) 0.0 Baso # (Auto) 0.1 Neutrophils % (Manual) 88 H Band Neutrophils % 7 H Lymphocytes % (Manual) 1 L Monocytes % (Manual) 4 Toxic Granulation Present Platelet Estimate Normal Large Platelets Present Giant Platelets Present Hypochromasia (manual) Slight Anisocytosis (manual) Moderate PT INR APTT Sodium 131 L Potassium 6.9 H* D Chloride 93 L Carbon Dioxide 24 Anion Gap 21 H BUN 60 H Creatinine 7.8 H* Est GFR ( Amer) 10 Est GFR (Non-Af Amer) 8 POC Glucose (mg/dL) 177 H Random Glucose 173 H Lactic Acid Calcium 7.0 L Phosphorus 6.5 H Magnesium 1.6 Total Bilirubin 0.6 AST 33 ALT 11 L Alkaline Phosphatase 83 Total Protein 6.3 Albumin 3.0 L Globulin 3.3 Albumin/Globulin Ratio 0.9 L Stool Leukocytes, Qual Random Vancomycin 05/16/17 05/16/17 05/16/17 09:51 11:26 11:37 WBC RBC Hgb Hct MCV MCH MCHC RDW Plt Count MPV Neut % (Auto) Lymph % (Auto) [place] % (Auto) Eos % (Auto) Baso % (Auto) Neut # (Auto) Lymph # (Auto) [place] # (Auto) Eos # (Auto) Baso # (Auto) Neutrophils % (Manual) Band Neutrophils % Lymphocytes % (Manual) Monocytes % (Manual) Toxic Granulation Platelet Estimate Large Platelets Giant Platelets Hypochromasia (manual) Anisocytosis (manual) PT 12.5 H INR 1.1 APTT 28 D Sodium Potassium Chloride Carbon Dioxide Anion Gap BUN Creatinine Est GFR ( Amer) Est GFR (Non-Af Amer) POC Glucose (mg/dL) 109 Random Glucose Lactic Acid 3.9 H Calcium Phosphorus Magnesium Total Bilirubin AST ALT Alkaline Phosphatase Total Protein Albumin Globulin Albumin/Globulin Ratio Stool Leukocytes, Qual Random Vancomycin 05/16/17 16:15 WBC RBC Hgb Hct MCV MCH MCHC RDW Plt Count MPV Neut % (Auto) Lymph % (Auto) [place] % (Auto) Eos % (Auto) Baso % (Auto) Neut # (Auto) Lymph # (Auto) [place] # (Auto) Eos # (Auto) Baso # (Auto) Neutrophils % (Manual) Band Neutrophils % Lymphocytes % (Manual) Monocytes % (Manual) Toxic Granulation Platelet Estimate Large Platelets Giant Platelets Hypochromasia (manual) Anisocytosis (manual) PT INR APTT Sodium Potassium Chloride Carbon Dioxide Anion Gap BUN Creatinine Est GFR ( Amer) Est GFR (Non-Af Amer) POC Glucose (mg/dL) 224 H Random Glucose Lactic Acid Calcium Phosphorus Magnesium Total Bilirubin AST ALT Alkaline Phosphatase Total Protein Albumin Globulin Albumin/Globulin Ratio Stool Leukocytes, Qual Random Vancomycin EKG/Cardiology Studies: Cardiology / EKG Studies 05/16/17 09:04 EKG [ELECTROCARDIOGRAM] Stat Comment: Mode Of Transportation: Reason For Exam: chest pain Critical Care Progress Note - Nutrition Nutrition: Nutrition Category Date Time Status Renal Diet [DIET] Diets 05/16/17 Breakfast Active Attending/Attestation - Attestation I have personally seen and examined this patient.: Yes I have fully participated in the care of the patient.: Yes I have reviewed all pertinent clinical information: Yes Notes (Text): 05/16/17 18:44 pt had HD had fever today vitals ok GPC in the blood continue to monitor will f/u
[2017-05-16 10:11] LABS: INR 1.1; PROTHROMBIN TIME 12.5 SECONDS (9.7-12.2)
--- NOTE | 2017-05-16 10:36 | CP.PCM.CON ---
History of Present Illness - History of Present Illness History of Present Illness: 36 y/o M with hx of ESRD on hemodialysis, chronic anemia, hyperphosphatemia, secondary hyperparathyroidism, Diabetes Mellitus, presents w/ n/v. he complains of abdominal pain and recurrent n/v. he states its very similar to his other hospitalizations. he denies any fever or chills. He has been compliant w/ HD . Patient had multiple admissions in the past with similar complaints status post multiple endoscopies and consistent with gastroparesis, esophagitis.. Patient was initially admitted to floor but requested for upgrade to ICU for fever, elevated lactate level, elevated white count and hypertension. Patient is alert oriented 3. ID CONSULTED FOR + BLOOD CULTURES Review of Systems - Review of Systems All systems: reviewed and no additional remarkable complaints except - Constitutional Constitutional: Anorexia, Chills, Fever, Malaise - EENT Eyes: absent: As Per HPI, Blind Spots, Blurred Vision, Change in Vision, Decreased Night Vision, Diplopia, Discharge, Dry Eye, Exophthalmos, Floaters, Irritation, Itchy Eyes, Loss of Peripheral Vision, Pain, Photophobia, Requires Corrective Lenses, Sees Flashes, Spots in Vision, Tunnel Vision, Other Visual Disturbances, Loss of Vision, Other Ears: absent: As Per HPI, Decreased Hearing, Ear Discharge, Ear Pain, Tinnitus, Abnormal Hearing, Disequilibrium, Dizziness, Other Nose/Mouth/Throat: absent: As Per HPI, Epistaxis, Nasal Congestion, Nasal Discharge, Nasal Obstruction, Nasal Trauma, Nose Pain, Post Nasal Drip, Sinus Pain, Sinus Pressure, Bleeding Gums, Change in Voice, Dental Pain, Dry Mouth, Dysphagia, Halitosis, Hoarsness, Lip Swelling, Mouth Lesions, Mouth Pain, Odynophagia, Sore Throat, Throat Swelling, Tongue Swelling, Facial Pain, Neck Pain, Neck Mass, Other - Cardiovascular Cardiovascular: absent: As Per HPI, Acrocyanosis, Chest Pain, Chest Pain at Rest , Chest Pain with Activity, Claudication, Diaphoresis, Dyspnea, Dyspnea on Exertion, Edema, Irregular Heart Rhythm, Pain Radiating to Arm/Neck/Jaw, Leg Edema, Leg Ulcers, Lightheadedness, Orthopnea, Palpitations, Paroxysmal Nocturnal Dyspnea, Pedal Edema, Radiating Pain, Rapid Heart Rate, Slow Heart Rate, Syncope, Other - Respiratory Respiratory: absent: As Per HPI, Cough, Dyspnea, Hemoptysis, Dyspnea on Exertion , Wheezing, Snoring, Stridor, Pain on Inspiration, Chest Congestion, Excessive Mucous Production, Change in Mucous Color, Pain with Coughing, Other - Gastrointestinal Gastrointestinal: As Per HPI - Genitourinary Genitourinary: absent: As Per HPI, Change in Urinary Stream, Difficulty Urinating, Dysuria, Flank Pain, Hematuria, Pyuria, Nocturia, Urinary Incontinence, Urinary Frequency, Urinary Hesitance, Urinary Urgency, Voiding Freq/Small Amts, Freq UTI, Hx Renal/Bladder Calculi, Hx /Renal Surgery, Bladder Distension, Other - Musculoskeletal Musculoskeletal: absent: As Per HPI, Abnormal Gait, Arthralgias, Atrophy, Back Pain, Deformity, Joint Swelling, Limited Range of Motion, Loss of Height, Muscle Cramps, Muscle Weakness, Myalgias, Neck Pain, Numbness, Radiating Pain into Limb, Stiffness, Tingling, Other - Integumentary Integumentary: absent: As Per HPI, Acne, Alopecia, Bleeding Lesions, Change in Hair, Change in Nails, Change in Pigmentation, Changing Lesions, Dry Skin, Erythema, Furuncle, Hirsutism, Lesions, New Lesions, Non-Healing Lesions, Photosensitivity, Pruritus, Rash, Skin Pain, Skin Ulcer, Sores, Striae, Swelling , Unusual Bruising, Wounds, Jaundice, Other - Neurological Neurological: absent: As Per HPI, Abnormal Gait, Abnormal Hearing, Abnormal Movements, Abnormal Speech, Behavioral Changes, Burning Sensations, Confusion, Convulsions, Disequilibrium, Dizziness, Numbness, Focal Weakness, Frequent Falls , Headaches, Lack of Coordination, Loss of Vision, Memory Loss, Paresthesias, Radicular Pain, Restless Legs, Sensory Deficit, Syncope, Tingling, Tremor, Vertigo, Weakness, Other Visual Disturbances, Other - Psychiatric Psychiatric: absent: As Per HPI, Abnormal Sleep Pattern, Anhedonia, Anxiety, Auditory Hallucinations, Behavioral Changes, Change in Appetite, Change in Libido, Confusion, Depression, Difficulty Concentrating, Hallucinations, Homicidal Ideation, Hopelessness, Irritability, Memory Loss, Mood Swings, Panic Attacks, Paranoia, Suicidal Ideation, Visual Hallucinations, Tactile Hallucinations, Other - Endocrine Endocrine: absent: As Per HPI, Change in Body Appearance, Change in Libido, Cold Intolorance, Deepening of Voice, Excessive Sweating, Fatigue, Flushing, Heat Intolorance, Increase in Ring/Shoe/Hat Size, Palpitations, Polydipsia, Polyphagia, Polyuria, Other - Hematologic/Lymphatic Hematologic: absent: As Per HPI, Easy Bleeding, Easy Bruising, Lymphadenopathy, Other Past Patient History - Infectious Disease Hx of Infectious Diseases: None - Past Medical History & Family History Past Medical History?: Yes - Past Social History Smoking Status: Current Some Days Smoker - CARDIAC Hx Congestive Heart Failure: Yes Hx Hypercholesterolemia: Yes Hx Hypertension: Yes Hx Peripheral Edema: Yes - PULMONARY Hx Respiratory Disorders: No - NEUROLOGICAL Hx Neurological Disorder: No - HEENT Hx HEENT Problems: Yes - RENAL Hx Chronic Kidney Disease: Yes Type of Dialysis Access: lavs Date of Last Dialysis Treatment: 05/14/17 Hx Kidney Stones: No - ENDOCRINE/METABOLIC Hx Endocrine Disorders: Yes Hx Diabetes Mellitus Type 2: Yes - HEMATOLOGICAL/ONCOLOGICAL Hx Anemia: Yes Hx Human Immunodeficiency Virus (HIV): No - INTEGUMENTARY Hx Dermatological Problems: No - MUSCULOSKELETAL/RHEUMATOLOGICAL Hx Falls: No - GASTROINTESTINAL Hx Gastritis: Yes (gastroparesis) - GENITOURINARY/GYNECOLOGICAL Hx Genitourinary Disorders: No - PSYCHIATRIC Hx Substance Use: No - SURGICAL HISTORY Hx Surgeries: Yes Hx Cataract Extraction: Yes (bilateral) Hx Vascular Access Device: Yes Other/Comment: Hx RT.PERMACATH INSERTION 12/30. 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 Hx UNDESCENDED TESTES LT. REMOVED DURING CHILDHOOD - ANESTHESIA Hx Anesthesia: Yes Hx Anesthesia Reactions: No Hx Malignant Hyperthermia: No Meds Allergies/Adverse Reactions: Allergies Allergy/AdvReac Type Severity Reaction Status Date / Time No Known Allergies Allergy Verified 05/14/17 15:51 - Medications Medications: Current Medications Acetaminophen (Tylenol 325mg Tab) 650 mg PO Q6 PRN PRN Reason: Fever >100.4 F Last Admin: 05/16/17 04:47 Dose: 650 mg Amlodipine Besylate (Norvasc) 10 mg PO DAILY [facility] Last Admin: 05/15/17 09:00 Dose: Not Given Calcium Acetate (Phoslo) 667 mg PO TIDCC [facility] Last Admin: 05/16/17 08:47 Dose: Not Given Clonidine HCl (Catapres) 0.3 mg PO TID [facility] Last Admin: 05/16/17 09:26 Dose: Not Given Epoetin Oumar (Procrit) 4,000 unit SC MWF [facility] Heparin Sodium (Porcine) (Heparin) 5,000 units SC BID [facility] Last Admin: 05/15/17 17:48 Dose: 5,000 units Hydralazine HCl (Apresoline) 50 mg PO TID [facility] Last Admin: 05/16/17 09:26 Dose: Not Given Hydromorphone HCl (Dilaudid) 1 mg IVP Q4H PRN PRN Reason: pain Last Admin: 05/16/17 08:49 Dose: 1 mg Fluconazole (Diflucan Iv 200 Mg/100 Ml Ns) 100 mls @ 100 mls/hr IVPB DAILY [facility] PRN Reason: Protocol Last Admin: 05/15/17 10:06 Dose: 100 mls/hr Meropenem 500 mg/ Sodium (Chloride) 100 mls @ 100 mls/hr IVPB Q12 [facility] PRN Reason: Protocol Last Admin: 05/15/17 21:29 Dose: 100 mls/hr Insulin Human Regular (Novolin R) 0 unit SC ACHS [facility] PRN Reason: Protocol Last Admin: 05/16/17 08:31 Dose: 1 unit Metoclopramide HCl (Reglan) 10 mg IVP ACHS [facility] Last Admin: 05/16/17 07:45 Dose: 10 mg Ondansetron HCl (Zofran Inj) 4 mg IVP Q6 PRN PRN Reason: nausea and vomiting Last Admin: 05/15/17 06:58 Dose: 4 mg Pantoprazole Sodium (Protonix Inj) 40 mg IVP DAILY [facility] Last Admin: 05/15/17 09:51 Dose: 40 mg Physical Exam - Constitutional Appears: Toxic, In Acute Distress - Head Exam Head Exam: ATRAUMATIC, NORMAL INSPECTION, NORMOCEPHALIC - Eye Exam Eye Exam: PERRL. absent: Scleral icterus - ENT Exam ENT Exam: Mucous Membranes Dry, Normal External Ear Exam - Neck Exam Neck exam: Negative for: Lymphadenopathy - Respiratory Exam Respiratory Exam: Decreased Breath Sounds, Rhonchi - Cardiovascular Exam Cardiovascular Exam: Tachycardia, REGULAR RHYTHM, +S1, +S2 - GI/Abdominal Exam GI & Abdominal Exam: Diminished Bowel Sounds, Guarding, Soft, Tenderness. absent: Rebound, Rigid - Rectal Exam Rectal Exam: Deferred - Exam Exam: NORMAL INSPECTION - Extremities Exam Extremities exam: Positive for: pedal pulses present. Negative for: calf tenderness, pedal edema, tenderness - Back Exam Back exam: absent: CVA tenderness (L), CVA tenderness (R), paraspinal tenderness - Neurological Exam Neurological exam: Alert, CN II-XII Intact, Oriented x3, Reflexes Normal - Psychiatric Exam Psychiatric exam: Normal Mood - Skin Skin Exam: Dry, Intact Results - Vital Signs Recent Vital Signs: Last Vital Signs Temp 98.9 F 05/16/17 08:00 Pulse 79 05/16/17 09:00 Resp 11 L 05/16/17 09:00 BP 128/71 05/16/17 08:43 Pulse Ox 92 L 05/16/17 09:00 - Labs Result Diagrams: 05/16/17 06:34 05/16/17 06:34 Labs: Laboratory Results - last 24 hr 05/15/17 05/15/17 05/15/17 06:40 07:47 11:28 WBC RBC Hgb Hct MCV MCH MCHC RDW Plt Count MPV Neut % (Auto) Lymph % (Auto) [place] % (Auto) Eos % (Auto) Baso % (Auto) Neut # (Auto) Lymph # (Auto) [place] # (Auto) Eos # (Auto) Baso # (Auto) Neutrophils % (Manual) Band Neutrophils % Lymphocytes % (Manual) Monocytes % (Manual) Toxic Granulation Platelet Estimate Large Platelets Giant Platelets Hypochromasia (manual) Anisocytosis (manual) PT INR APTT Sodium Potassium Chloride Carbon Dioxide Anion Gap BUN Creatinine Est GFR ( Amer) Est GFR (Non-Af Amer) POC Glucose (mg/dL) 387 H 260 H Random Glucose Lactic Acid Calcium Phosphorus Magnesium Total Bilirubin AST ALT Alkaline Phosphatase Total Protein Albumin Globulin Albumin/Globulin Ratio Procalcitonin 0.76 H Random Vancomycin 05/15/17 05/15/17 05/15/17 12:16 12:16 16:12 WBC RBC Hgb Hct MCV MCH MCHC RDW Plt Count MPV Neut % (Auto) Lymph % (Auto) [place] % (Auto) Eos % (Auto) Baso % (Auto) Neut # (Auto) Lymph # (Auto) [place] # (Auto) Eos # (Auto) Baso # (Auto) Neutrophils % (Manual) Band Neutrophils % Lymphocytes % (Manual) Monocytes % (Manual) Toxic Granulation Platelet Estimate Large Platelets Giant Platelets Hypochromasia (manual) Anisocytosis (manual) PT INR APTT Sodium 135 Potassium 5.2 Chloride 96 L Carbon Dioxide 24 Anion Gap 20 BUN 49 H Creatinine 6.5 H Est GFR ( Amer) 12 Est GFR (Non-Af Amer) 10 POC Glucose (mg/dL) 99 Random Glucose 246 H Lactic Acid 4.2 H* Calcium 7.6 L Phosphorus Magnesium Total Bilirubin AST ALT Alkaline Phosphatase Total Protein Albumin Globulin Albumin/Globulin Ratio Procalcitonin Random Vancomycin 05/15/17 05/16/17 05/16/17 21:16 06:34 06:34 WBC 18.0 H RBC 2.93 L Hgb 8.3 L Hct 25.5 L MCV 87.0 MCH 28.4 MCHC 32.6 L RDW 18.4 H Plt Count 149 MPV 9.7 Neut % (Auto) 93.7 H Lymph % (Auto) 2.2 L [place] % (Auto) 3.6 Eos % (Auto) 0.0 Baso % (Auto) 0.5 Neut # (Auto) 16.9 H Lymph # (Auto) 0.4 L [place] # (Auto) 0.6 Eos # (Auto) 0.0 Baso # (Auto) 0.1 Neutrophils % (Manual) 88 H Band Neutrophils % 7 H Lymphocytes % (Manual) 1 L Monocytes % (Manual) 4 Toxic Granulation Present Platelet Estimate Normal Large Platelets Present Giant Platelets Present Hypochromasia (manual) Slight Anisocytosis (manual) Moderate PT INR APTT Sodium Potassium Chloride Carbon Dioxide Anion Gap BUN Creatinine Est GFR ( Amer) Est GFR (Non-Af Amer) POC Glucose (mg/dL) 159 H Random Glucose Lactic Acid Calcium Phosphorus Magnesium Total Bilirubin AST ALT Alkaline Phosphatase Total Protein Albumin Globulin Albumin/Globulin Ratio Procalcitonin Random Vancomycin 28.65 05/16/17 05/16/17 05/16/17 06:34 07:43 09:51 WBC RBC Hgb Hct MCV MCH MCHC RDW Plt Count MPV Neut % (Auto) Lymph % (Auto) [place] % (Auto) Eos % (Auto) Baso % (Auto) Neut # (Auto) Lymph # (Auto) [place] # (Auto) Eos # (Auto) Baso # (Auto) Neutrophils % (Manual) Band Neutrophils % Lymphocytes % (Manual) Monocytes % (Manual) Toxic Granulation Platelet Estimate Large Platelets Giant Platelets Hypochromasia (manual) Anisocytosis (manual) PT 12.5 H INR 1.1 APTT 28 D Sodium 131 L Potassium 6.9 H* D Chloride 93 L Carbon Dioxide 24 Anion Gap 21 H BUN 60 H Creatinine 7.8 H* Est GFR ( Amer) 10 Est GFR (Non-Af Amer) 8 POC Glucose (mg/dL) 177 H Random Glucose 173 H Lactic Acid Calcium 7.0 L Phosphorus 6.5 H Magnesium 1.6 Total Bilirubin 0.6 AST 33 ALT 11 L Alkaline Phosphatase 83 Total Protein 6.3 Albumin 3.0 L Globulin 3.3 Albumin/Globulin Ratio 0.9 L Procalcitonin Random Vancomycin Assessment & Plan (1) Sepsis Status: Acute (2) Sepsis Status: Acute (3) CKD (chronic kidney disease) requiring chronic dialysis Status: Acute (4) CRF (chronic renal failure) Status: Acute (5) Abdominal discomfort Status: Acute (6) Abdominal pain Status: Acute - Assessment and Plan (Free Text) Assessment: SEPSIS / BACTEREMIA SOURCE UNCLEAR MAY NEED DINO
[2017-05-16] MEDS ORDERED: EPOETIN ALFA 4,000 UNIT/ML ML Dialysis IV SCH (10:39)
[2017-05-16] MEDS: Meropenem 500 MG in Sodium Chloride 0.9% 100 ML IVPB SCH (11:39)
[2017-05-16] MEDS: EPOETIN ALFA 4,000 UNIT/ML ML Dialysis IV SCH (13:28)
[2017-05-16] MEDS: Fluconazole IV 200mg/100 ml NS 100 ML IVPB SCH (14:09)
--- NOTE | 2017-05-16 15:08 | CP.PCM.PN ---
Subjective - Date & Time of Evaluation Date of Evaluation: 05/16/17 Time of Evaluation: 14:58 - Subjective Subjective: Nephrology Consultation Note Assessment: critical sepsis with lactic acidosis recurrent nausea/vomiting, Cyclic Emesis Syndrome, marijuana abuse, gastroparesis uncontrolled DM with hypoglycemia and hyperglycemia Diabetic chronic Kidney Disease (E11.22) Hypertensive Chronic Kidney Disease (I12.0) End stage renal disease (N18.6) dependence on hemodialysis (Z99.2) (MWF) via AVF Anemia (D64.9), Hyperphosphatemia (E83.39), Secondary Hyperparathyroidism (E21.1 ), HTN (I12.0) Plan: dialysis today as per MWF schedule as ordered. Continue with Nephrovite 1 tab/ day. last Hb 8.3 hence ordered MOHINI with HD Continue with phos binders, last phos 6.5 BP control with meds as ordered. no ACEI/ARB due to hyperkalemia Glycemic control, Dialysis consistent diet Further work up/management as per primary team Dose meds/antibiotics for ESRD status. Avoid fleets enema/magnesium based laxatives. pt to abstain from marijuana Thanks for allowing me to participate in care of your patient. Will follow patient with you. Please call if any Qs. Dr Brenton Larsen Office: [phone] HPI: Pt is a 36 y/o M with hx of ESRD on hemodialysis (MWF) via AVF, chronic anemia, hyperphosphatemia, secondary hyperparathyroidism, Diabetes Mellitus, hypertension, recurrent nausea/vomiting and multiple hospitalization for same, came back with sepsis and pain abdomen Denies chest pain, palpitation, leg swelling improved pain upper abdomen ROS: Constitutional Symptoms: c/o chills. No Recent Weight Changes Cardiovascular: No chest pain. No palpitations. Pulmonary: No cough. Gastrointestinal: c/o abdominal pain now improved nausea. improved vomiting. Denies change in bowel habits. Denies Bleeding All other negative. Physical Examination: seen on HD General Appearance: uncomfortable, in no acute respiratory distress, co- operative. ill appearing Vitals reviewed and noted as below Head; Atraumatic, normocephalic ENT: no ulcers no thrush. Tongue is midline. Oropharynx: no rash or ulcers. EYES: Pupils are equal, round and reactive to light accommodation. Eye muscles and extraocular movement intact. Sclera is anicteric. Neck; supple no lymphadenopathy, no thyromegaly or bruit Lungs: Normal respiratory rate/effort. Breath sounds bilateral equal and clear Heart: Increased rate. s1s2 normal. No rub or gallop. Extremities: 1+ edema. No varicose veins Neurological: Patient is alert, awake and oriented to person, place and time. No focal deficit. Strength bilateral appropriate and equal Skin: Warm and dry. Normal turgor. No rash. Palpitation: Normal elasticity for age Abdomen: Abdomen is soft. Bowel sounds +. There is no epigastric abdominal tenderness, no guarding/rigidity or organomegaly Psych: limited insight and normal affect/mood MSK: no joint tenderness or swelling. Digits and nails normal, no deformity. : kidney or bladder not palpable. Access: AVF Labs/imaging reviewed. Past medical history, past surgical history, family history, social history, allergy reviewed and noted as below Family Hx: no hx of CKD. Non contributory sec HTN work up neg as renin/ioana, metanephrine and renal artery doppler Objective - Vital Signs/Intake and Output Vital Signs (last 24 hours): Temp Pulse Resp BP Pulse Ox 101.9 F H 108 H 13 192/88 H 95 05/16/17 14:42 05/16/17 14:32 05/16/17 14:32 05/16/17 14:32 05/16/17 14:32 Intake and Output: 05/16/17 05/16/17 06:59 18:59 Intake Total 430 500 Output Total 250 150 Balance 180 350 - Medications Medications: Current Medications Acetaminophen (Tylenol 325mg Tab) 650 mg PO Q6 PRN PRN Reason: Fever >100.4 F Last Admin: 05/16/17 10:57 Dose: 650 mg Amlodipine Besylate (Norvasc) 10 mg PO DAILY [facility] Last Admin: 05/15/17 09:00 Dose: Not Given Calcium Acetate (Phoslo) 667 mg PO TIDCC [facility] Last Admin: 05/16/17 13:22 Dose: 667 mg Clonidine HCl (Catapres) 0.3 mg PO TID [facility] Last Admin: 05/16/17 14:42 Dose: 0.3 mg Epoetin Oumar (Procrit) 8,000 unit IV MWF [facility] Last Admin: 05/16/17 13:28 Dose: Not Given Heparin Sodium (Porcine) (Heparin) 5,000 units SC BID [facility] Last Admin: 05/16/17 13:53 Dose: 5,000 units Hydralazine HCl (Apresoline) 50 mg PO TID [facility] Last Admin: 05/16/17 09:26 Dose: Not Given Hydromorphone HCl (Dilaudid) 1 mg IVP Q4H PRN PRN Reason: pain Last Admin: 05/16/17 14:42 Dose: 1 mg Fluconazole (Diflucan Iv 200 Mg/100 Ml Ns) 100 mls @ 100 mls/hr IVPB DAILY [facility] PRN Reason: Protocol Last Admin: 05/16/17 14:09 Dose: 100 mls/hr Insulin Human Regular (Novolin R) 0 unit SC ACHS [facility] PRN Reason: Protocol Last Admin: 05/16/17 11:37 Dose: Not Given Metoclopramide HCl (Reglan) 10 mg IVP ACHS [facility] Last Admin: 05/16/17 13:20 Dose: 10 mg Ondansetron HCl (Zofran Inj) 4 mg IVP Q6 PRN PRN Reason: nausea and vomiting Last Admin: 05/15/17 06:58 Dose: 4 mg Pantoprazole Sodium (Protonix Inj) 40 mg IVP DAILY [facility] Last Admin: 05/16/17 13:20 Dose: 40 mg - Labs Labs: 05/16/17 06:34 05/16/17 06:34 PT 12.5 SECONDS (9.7-12.2) H 05/16/17 09:51 INR 1.1 05/16/17 09:51 APTT 28 SECONDS (21-34) D 05/16/17 09:51
[2017-05-16 18:11] LABS: FECAL LEUKOCYTES NEGATIVE (NEGATIVE)
--- NOTE | 2017-05-16 21:17 | CARD ---
APPROVED REPORT EKG Measurement Heart [id number] <Conclusion> Sinus tachycardia Possible Left atrial enlargement Borderline ECG
[2017-05-17] MEDS: HYDROmorphone 1 mg/ml ISec IVP PRN ×5 (01:26→22:50)
[2017-05-17 06:29] LABS: BASO # 0.1 K/uL (0.0-0.2); BASO % 1.1 % (0.0-2.0); EOS # 0.4 K/uL (0.0-0.7); EOS % 2.9 % (0.0-4.0); HEMOGLOBIN 9.3 g/dL (12.0-18.0); LYMPH # 0.4 K/uL (1.0-4.3); LYMPH % 3.3 % (20.0-40.0); MEAN CELL VOLUME 86.6 fL (80.0-94.0); MEAN CORPUSCULAR HEMOGLOBIN 28.5 pg (27.0-31.0); MEAN CORPUSCULAR HGB CONC 32.9 g/dL (33.0-37.0); MEAN PLATELET VOLUME 10.3 fL (7.2-11.7); MONO # 0.6 K/uL (0.0-0.8); MONO % 4.9 % (0.0-10.0); NEUT % 87.8 % (50.0-75.0); NRBC % 0.1 % (0.0-2.0); PLATELET COUNT 145 K/uL (130-400); RBC 3.27 Mil/uL (4.40-5.90); RED CELL DISTRIBUTION WIDTH 18.1 % (11.5-14.5); WHITE BLOOD COUNT 12.5 K/uL (4.8-10.8)
[2017-05-17 06:52] LABS: ALB/GLOB RATIO 0.9 (1.0-2.1); ALBUMIN 3.3 g/dL (3.5-5.0)
[2017-05-17] MEDS: (Novolin R) Insulin Human Regular 100 units/ml vial SC SCH ×4 (07:46→21:19)
[2017-05-17 08:19] LABS: BANDS 8 % (0-2); MONOCYTE 3 % (0-10); NEUTROPHIL 81 % (50-75); TOTAL CELLS COUNTED 100
[2017-05-17 08:20] LABS: ANISOCYTOSIS MODERATE; EOSINOPHIL 5 % (0-4); HYPOCHROMIC SLIGHT; LARGE PLATELETS PRESENT; LYMPHOCYTE 3 % (20-40); PLATELET ESTIMATE NORMAL (NORMAL)
--- NOTE | 2017-05-17 08:52 | HP ---
HISTORY OF PRESENT ILLNESS: Mr. Haynes is admitted to the hospital with fever, weakness, abdominal pain, and uncontrolled hypertension. The patient came to the ER, advised admission. The patient has a history of chronic renal failure, diabetes, and marijuana addiction. The patient uses Norvasc and metoprolol. PHYSICAL EXAMINATION: GENERAL: The patient is awake, lethargic. VITAL SIGNS: Temperature 101, pulse 90, blood pressure 200/120. HEENT: Within normal limits. NECK: Supple. CHEST: Symmetrical. HEART: Regular. ABDOMEN: Soft, distended, . EXTREMITIES: No edema. IMPRESSION: The patient suffers from sepsis, uncontrolled hypertension. RECOMMENDATIONS: The patient to get IV antibiotics, blood pressure medication. ID consult. Lucero Chadwick MD
--- NOTE | 2017-05-17 09:29 | CP.CCUPN ---
<Qing Zambrano - Last Filed: 05/17/17 15:44> CCU Subjective - Physician Review Subjective (Free Text): 05/17/17 09:29 Patient seen and examined at bedside. Per nursing no acute events overnight. Patient is resting, offers no complaints at this time. Patient for DINO today. + MRSA bacteremia on contact isolation. CCU Objective - Vital Signs / Intake & Output Vital Signs (Last 4 hours): Vital Signs Temp Pulse Resp BP 05/17/17 07:55 85 10 L 156/79 H 05/17/17 07:00 92 H 12 05/17/17 06:55 92 H 12 148/76 05/17/17 06:25 99.5 F 05/17/17 06:00 92 H 16 05/17/17 05:55 96 H 14 180/85 H Intake and Output (Last 8hrs): Intake & Output 05/16/17 05/17/17 05/17/17 22:59 06:59 14:59 Intake Total 350 250 0 Balance 350 250 0 Weight 64.864 kg Intake: Oral 350 250 0 Other: # Voids Urine, Voided 0 # Bowel Movements 1 - Physical Exam Head: Positive for: Atraumatic, Normocephalic Pupils: Positive for: PERRL Extroacular Muscles: Positive for: EOMI Conjunctiva: Positive for: Normal Mouth: Positive for: Moist Mucous Membranes Respiratory/Chest: Positive for: Clear to Auscultation, Good Air Exchange. Negative for: Respiratory Distress, Accessory Muscle Use Cardiovascular: Positive for: Regular Rate and Rhythm, Normal S1, S2 Abdomen: Positive for: Tenderness. Negative for: Distention Upper Extremity: Positive for: Normal Inspection, Other (Left AVF) Lower Extremity: Positive for: Normal Inspection Skin: Positive for: Warm, Dry, Normal Color Psychiatric: Positive for: Alert, Oriented x 3 - Medications Active Medications: Active Medications Generic Name Dose Route Start Last Admin Trade Name Freq PRN Reason Stop Dose Admin Acetaminophen 650 mg 05/15/17 14:36 05/17/17 05:25 Tylenol 325mg Tab PO 650 mg Q6 PRN Administration Fever >100.4 F Amlodipine Besylate 10 mg 05/15/17 10:00 05/15/17 09:00 Norvasc PO Not Given DAILY [facility] Calcium Acetate 667 mg 05/16/17 08:00 05/17/17 08:26 Phoslo PO 667 mg TIDCC GADIEL Administration Clonidine HCl 0.3 mg 05/15/17 10:00 05/16/17 18:00 Catapres PO Not Given TID GADIEL Epoetin Oumar 8,000 unit 05/16/17 11:45 05/16/17 13:28 Procrit IV Not Given MWF [facility] Heparin Sodium (Porcine) 5,000 units 05/15/17 10:00 05/16/17 21:05 Heparin SC 5,000 units BID GADIEL Administration Hydralazine HCl 50 mg 05/15/17 10:00 05/16/17 09:26 Apresoline PO Not Given TID GADIEL Hydromorphone HCl 1 mg 05/14/17 19:48 05/17/17 06:20 Dilaudid IVP 1 mg Q4H PRN Administration pain Fluconazole 100 mls @ 100 mls/hr 05/15/17 11:00 05/16/17 14:09 Diflucan Iv 200 Mg/100 Ml Ns IVPB 100 mls/hr DAILY GADIEL Administration Protocol Insulin Human Regular 0 unit 05/15/17 07:30 05/17/17 07:46 Novolin R SC Not Given ACHS [facility] Protocol Metoclopramide HCl 10 mg 05/15/17 07:30 05/17/17 08:26 Reglan IVP 10 mg ACHS GADIEL Administration Ondansetron HCl 4 mg 05/14/17 19:48 05/15/17 06:58 Zofran Inj IVP 4 mg Q6 PRN Administration nausea and vomiting Pantoprazole Sodium 40 mg 05/15/17 10:00 05/16/17 13:20 Protonix Inj IVP 40 mg DAILY GADIEL Administration - Patient Studies Lab Studies: Microbiology Studies 05/14/17 22:19 Blood Culture - Final Blood-Venous Methicillin Resistant S Aureus Gram Stain - Final 05/14/17 22:19 S.aureus & Coag-Neg Staph PNA FISH - Final Blood-Venous Blood Culture - Final Methicillin Resistant S Aureus Gram Stain - Final 05/15/17 01:31 MRSA Culture (Admit) - Final Naris MRSA NOT DETECTED Lab Studies 05/17/17 05/17/17 05/17/17 Range/Units 07:06 06:21 06:21 WBC (4.8-10.8) K/uL RBC (4.40-5.90) Mil/uL Hgb (12.0-18.0) g/dL Hct (35.0-51.0) % MCV (80.0-94.0) fL MCH (27.0-31.0) pg MCHC (33.0-37.0) g/dL RDW (11.5-14.5) % Plt Count (130-400) K/uL MPV (7.2-11.7) fL Neut % (Auto) (50.0-75.0) % Lymph % (Auto) (20.0-40.0) % Lea % (Auto) (0.0-10.0) % Eos % (Auto) (0.0-4.0) % Baso % (Auto) (0.0-2.0) % Neut # (Auto) (1.8-7.0) K/uL Lymph # (Auto) (1.0-4.3) K/uL Lea # (Auto) (0.0-0.8) K/uL Eos # (Auto) (0.0-0.7) K/uL Baso # (Auto) (0.0-0.2) K/uL Neutrophils % (Manual) (50-75) % Band Neutrophils % (0-2) % Lymphocytes % (Manual) (20-40) % Monocytes % (Manual) (0-10) % Eosinophils % (Manual) (0-4) % Platelet Estimate (NORMAL) Large Platelets Hypochromasia (manual) Anisocytosis (manual) PT (9.7-12.2) SECONDS INR APTT (21-34) SECONDS Sodium 136 (132-148) mmol/L Potassium 5.0 (3.6-5.2) mmol/L Chloride 89 L (98-107) mmol/L Carbon Dioxide 26 (22-30) mmol/L Anion Gap 26 H (10-20) BUN 32 H (9-20) mg/dL Creatinine 5.7 H (0.8-1.5) mg/dL Est GFR ( Amer) 14 Est GFR (Non-Af Amer) 11 POC Glucose (mg/dL) 140 H (65-110) mg/dL Random Glucose 159 H (75-110) mg/dL Lactic Acid 1.0 (0.7-2.1) mmol/L Calcium 8.0 L (8.6-10.4) mg/dl Phosphorus 6.7 H (2.5-4.5) mg/dL Magnesium 1.8 (1.6-2.3) mg/dL Total Bilirubin 0.7 (0.2-1.3) mg/dL AST 49 (17-59) U/L ALT 31 (21-72) U/L Alkaline Phosphatase 179 H D (38-126) U/L Total Protein 7.0 (6.3-8.3) g/dL Albumin 3.3 L (3.5-5.0) g/dL Globulin 3.7 (2.2-3.9) gm/dL Albumin/Globulin Ratio 0.9 L (1.0-2.1) Stool Leukocytes, Qual (NEGATIVE) Random Vancomycin ug/mL 05/17/17 05/17/17 05/16/17 Range/Units 06:21 06:21 21:30 WBC 12.5 H (4.8-10.8) K/uL RBC 3.27 L (4.40-5.90) Mil/uL Hgb 9.3 L (12.0-18.0) g/dL Hct 28.3 L (35.0-51.0) % MCV 86.6 (80.0-94.0) fL MCH 28.5 (27.0-31.0) pg MCHC 32.9 L (33.0-37.0) g/dL RDW 18.1 H (11.5-14.5) % Plt Count 145 (130-400) K/uL MPV 10.3 (7.2-11.7) fL Neut % (Auto) 87.8 H (50.0-75.0) % Lymph % (Auto) 3.3 L (20.0-40.0) % Lea % (Auto) 4.9 (0.0-10.0) % Eos % (Auto) 2.9 (0.0-4.0) % Baso % (Auto) 1.1 (0.0-2.0) % Neut # (Auto) 11.0 H (1.8-7.0) K/uL Lymph # (Auto) 0.4 L (1.0-4.3) K/uL Lea # (Auto) 0.6 (0.0-0.8) K/uL Eos # (Auto) 0.4 (0.0-0.7) K/uL Baso # (Auto) 0.1 (0.0-0.2) K/uL Neutrophils % (Manual) 81 H (50-75) % Band Neutrophils % 8 H (0-2) % Lymphocytes % (Manual) 3 L (20-40) % Monocytes % (Manual) 3 (0-10) % Eosinophils % (Manual) 5 H (0-4) % Platelet Estimate Normal (NORMAL) Large Platelets Present Hypochromasia (manual) Slight Anisocytosis (manual) Moderate PT (9.7-12.2) SECONDS INR APTT (21-34) SECONDS Sodium (132-148) mmol/L Potassium (3.6-5.2) mmol/L Chloride (98-107) mmol/L Carbon Dioxide (22-30) mmol/L Anion Gap (10-20) BUN (9-20) mg/dL Creatinine (0.8-1.5) mg/dL Est GFR ( Amer) Est GFR (Non-Af Amer) POC Glucose (mg/dL) 145 H (65-110) mg/dL Random Glucose (75-110) mg/dL Lactic Acid (0.7-2.1) mmol/L Calcium (8.6-10.4) mg/dl Phosphorus (2.5-4.5) mg/dL Magnesium (1.6-2.3) mg/dL Total Bilirubin (0.2-1.3) mg/dL AST (17-59) U/L ALT (21-72) U/L Alkaline Phosphatase (38-126) U/L Total Protein (6.3-8.3) g/dL Albumin (3.5-5.0) g/dL Globulin (2.2-3.9) gm/dL Albumin/Globulin Ratio (1.0-2.1) Stool Leukocytes, Qual (NEGATIVE) Random Vancomycin 18.67 ug/mL 05/16/17 05/16/17 05/16/17 Range/Units 16:15 11:37 11:26 WBC (4.8-10.8) K/uL RBC (4.40-5.90) Mil/uL Hgb (12.0-18.0) g/dL Hct (35.0-51.0) % MCV (80.0-94.0) fL MCH (27.0-31.0) pg MCHC (33.0-37.0) g/dL RDW (11.5-14.5) % Plt Count (130-400) K/uL MPV (7.2-11.7) fL Neut % (Auto) (50.0-75.0) % Lymph % (Auto) (20.0-40.0) % Lea % (Auto) (0.0-10.0) % Eos % (Auto) (0.0-4.0) % Baso % (Auto) (0.0-2.0) % Neut # (Auto) (1.8-7.0) K/uL Lymph # (Auto) (1.0-4.3) K/uL Lea # (Auto) (0.0-0.8) K/uL Eos # (Auto) (0.0-0.7) K/uL Baso # (Auto) (0.0-0.2) K/uL Neutrophils % (Manual) (50-75) % Band Neutrophils % (0-2) % Lymphocytes % (Manual) (20-40) % Monocytes % (Manual) (0-10) % Eosinophils % (Manual) (0-4) % Platelet Estimate (NORMAL) Large Platelets Hypochromasia (manual) Anisocytosis (manual) PT (9.7-12.2) SECONDS INR APTT (21-34) SECONDS Sodium (132-148) mmol/L Potassium (3.6-5.2) mmol/L Chloride (98-107) mmol/L Carbon Dioxide (22-30) mmol/L Anion Gap (10-20) BUN (9-20) mg/dL Creatinine (0.8-1.5) mg/dL Est GFR ( Amer) Est GFR (Non-Af Amer) POC Glucose (mg/dL) 224 H 109 (65-110) mg/dL Random Glucose (75-110) mg/dL Lactic Acid 3.9 H (0.7-2.1) mmol/L Calcium (8.6-10.4) mg/dl Phosphorus (2.5-4.5) mg/dL Magnesium (1.6-2.3) mg/dL Total Bilirubin (0.2-1.3) mg/dL AST (17-59) U/L ALT (21-72) U/L Alkaline Phosphatase (38-126) U/L Total Protein (6.3-8.3) g/dL Albumin (3.5-5.0) g/dL Globulin (2.2-3.9) gm/dL Albumin/Globulin Ratio (1.0-2.1) Stool Leukocytes, Qual (NEGATIVE) Random Vancomycin ug/mL 05/16/17 05/15/17 Range/Units 09:51 11:40 WBC (4.8-10.8) K/uL RBC (4.40-5.90) Mil/uL Hgb (12.0-18.0) g/dL Hct (35.0-51.0) % MCV (80.0-94.0) fL MCH (27.0-31.0) pg MCHC (33.0-37.0) g/dL RDW (11.5-14.5) % Plt Count (130-400) K/uL MPV (7.2-11.7) fL Neut % (Auto) (50.0-75.0) % Lymph % (Auto) (20.0-40.0) % Lea % (Auto) (0.0-10.0) % Eos % (Auto) (0.0-4.0) % Baso % (Auto) (0.0-2.0) % Neut # (Auto) (1.8-7.0) K/uL Lymph # (Auto) (1.0-4.3) K/uL Lea # (Auto) (0.0-0.8) K/uL Eos # (Auto) (0.0-0.7) K/uL Baso # (Auto) (0.0-0.2) K/uL Neutrophils % (Manual) (50-75) % Band Neutrophils % (0-2) % Lymphocytes % (Manual) (20-40) % Monocytes % (Manual) (0-10) % Eosinophils % (Manual) (0-4) % Platelet Estimate (NORMAL) Large Platelets Hypochromasia (manual) Anisocytosis (manual) PT 12.5 H (9.7-12.2) SECONDS INR 1.1 APTT 28 D (21-34) SECONDS Sodium (132-148) mmol/L Potassium (3.6-5.2) mmol/L Chloride (98-107) mmol/L Carbon Dioxide (22-30) mmol/L Anion Gap (10-20) BUN (9-20) mg/dL Creatinine (0.8-1.5) mg/dL Est GFR ( Amer) Est GFR (Non-Af Amer) POC Glucose (mg/dL) (65-110) mg/dL Random Glucose (75-110) mg/dL Lactic Acid (0.7-2.1) mmol/L Calcium (8.6-10.4) mg/dl Phosphorus (2.5-4.5) mg/dL Magnesium (1.6-2.3) mg/dL Total Bilirubin (0.2-1.3) mg/dL AST (17-59) U/L ALT (21-72) U/L Alkaline Phosphatase (38-126) U/L Total Protein (6.3-8.3) g/dL Albumin (3.5-5.0) g/dL Globulin (2.2-3.9) gm/dL Albumin/Globulin Ratio (1.0-2.1) Stool Leukocytes, Qual Negative (NEGATIVE) Random Vancomycin ug/mL Laboratory Results - last 24 hr 05/15/17 05/16/17 05/16/17 11:40 09:51 11:26 WBC RBC Hgb Hct MCV MCH MCHC RDW Plt Count MPV Neut % (Auto) Lymph % (Auto) Lea % (Auto) Eos % (Auto) Baso % (Auto) Neut # (Auto) Lymph # (Auto) Lea # (Auto) Eos # (Auto) Baso # (Auto) Neutrophils % (Manual) Band Neutrophils % Lymphocytes % (Manual) Monocytes % (Manual) Eosinophils % (Manual) Platelet Estimate Large Platelets Hypochromasia (manual) Anisocytosis (manual) PT 12.5 H INR 1.1 APTT 28 D Sodium Potassium Chloride Carbon Dioxide Anion Gap BUN Creatinine Est GFR ( Amer) Est GFR (Non-Af Amer) POC Glucose (mg/dL) Random Glucose Lactic Acid 3.9 H Calcium Phosphorus Magnesium Total Bilirubin AST ALT Alkaline Phosphatase Total Protein Albumin Globulin Albumin/Globulin Ratio Stool Leukocytes, Qual Negative Random Vancomycin 05/16/17 05/16/17 05/16/17 11:37 16:15 21:30 WBC RBC Hgb Hct MCV MCH MCHC RDW Plt Count MPV Neut % (Auto) Lymph % (Auto) Lea % (Auto) Eos % (Auto) Baso % (Auto) Neut # (Auto) Lymph # (Auto) Lea # (Auto) Eos # (Auto) Baso # (Auto) Neutrophils % (Manual) Band Neutrophils % Lymphocytes % (Manual) Monocytes % (Manual) Eosinophils % (Manual) Platelet Estimate Large Platelets Hypochromasia (manual) Anisocytosis (manual) PT INR APTT Sodium Potassium Chloride Carbon Dioxide Anion Gap BUN Creatinine Est GFR ( Amer) Est GFR (Non-Af Amer) POC Glucose (mg/dL) 109 224 H 145 H Random Glucose Lactic Acid Calcium Phosphorus Magnesium Total Bilirubin AST ALT Alkaline Phosphatase Total Protein Albumin Globulin Albumin/Globulin Ratio Stool Leukocytes, Qual Random Vancomycin 05/17/17 05/17/17 05/17/17 06:21 06:21 06:21 WBC 12.5 H RBC 3.27 L Hgb 9.3 L Hct 28.3 L MCV 86.6 MCH 28.5 MCHC 32.9 L RDW 18.1 H Plt Count 145 MPV 10.3 Neut % (Auto) 87.8 H Lymph % (Auto) 3.3 L Lea % (Auto) 4.9 Eos % (Auto) 2.9 Baso % (Auto) 1.1 Neut # (Auto) 11.0 H Lymph # (Auto) 0.4 L Lea # (Auto) 0.6 Eos # (Auto) 0.4 Baso # (Auto) 0.1 Neutrophils % (Manual) 81 H Band Neutrophils % 8 H Lymphocytes % (Manual) 3 L Monocytes % (Manual) 3 Eosinophils % (Manual) 5 H Platelet Estimate Normal Large Platelets Present Hypochromasia (manual) Slight Anisocytosis (manual) Moderate PT INR APTT Sodium 136 Potassium 5.0 Chloride 89 L Carbon Dioxide 26 Anion Gap 26 H BUN 32 H Creatinine 5.7 H Est GFR ( Amer) 14 Est GFR (Non-Af Amer) 11 POC Glucose (mg/dL) Random Glucose 159 H Lactic Acid Calcium 8.0 L Phosphorus 6.7 H Magnesium 1.8 Total Bilirubin 0.7 AST 49 ALT 31 Alkaline Phosphatase 179 H D Total Protein 7.0 Albumin 3.3 L Globulin 3.7 Albumin/Globulin Ratio 0.9 L Stool Leukocytes, Qual Random Vancomycin 18.67 05/17/17 05/17/17 06:21 07:06 WBC RBC Hgb Hct MCV MCH MCHC RDW Plt Count MPV Neut % (Auto) Lymph % (Auto) Lea % (Auto) Eos % (Auto) Baso % (Auto) Neut # (Auto) Lymph # (Auto) Lea # (Auto) Eos # (Auto) Baso # (Auto) Neutrophils % (Manual) Band Neutrophils % Lymphocytes % (Manual) Monocytes % (Manual) Eosinophils % (Manual) Platelet Estimate Large Platelets Hypochromasia (manual) Anisocytosis (manual) PT INR APTT Sodium Potassium Chloride Carbon Dioxide Anion Gap BUN Creatinine Est GFR ( Amer) Est GFR (Non-Af Amer) POC Glucose (mg/dL) 140 H Random Glucose Lactic Acid 1.0 Calcium Phosphorus Magnesium Total Bilirubin AST ALT Alkaline Phosphatase Total Protein Albumin Globulin Albumin/Globulin Ratio Stool Leukocytes, Qual Random Vancomycin EKG/Cardiology Studies: Cardiology / EKG Studies 05/16/17 09:04 EKG [ELECTROCARDIOGRAM] Stat Comment: Mode Of Transportation: Reason For Exam: chest pain Fingerstick Blood Sugar Results: 140 Critical Care Progress Note - Nutrition Nutrition: Nutrition Category Date Time Status Renal Diet [DIET] Diets 05/16/17 Breakfast Active Assessment/Plan - Assessment and Plan (Free Text) Assessment: Patient is a 36 year old male with past medical history of ESRD on HD (MWF), Diabetes Mellitus, Gastroparesis, multiple hospital admissions presented with abdominal pain with nausea and vomiting. Sepsis 2/2 bacteremia -Tmax 101.9 yesterday -Code sepsis: Patient with MRSA bacteremia, source unclear at this time -Antibiotics: Zyvox, Diflucan 200mg IV daily -Leukocytosis trending down 12.5 today, lactate 1.0 -Fecal leukocytes negative -F/U stool culture, c diff -Echo ordered, f/u official report -Patient for DINO, r/o endocarditis -ID on consult, help appreciated -Contact isolation Diabetes Mellitus/Gastroparesis/Gastritis/Hx of non-compliance -Insulin sliding scale ACHS, accuchecks ACHS -Reglan and Zofran prn nausea -Protonix 40mg IVP daily -Social work referral placed ESRD on HD -Hemodialysis MWF -Nephro on consult, help appreciated Hypertension -Off Cardene drip -Continue Norvasc 10mg PO daily -Clonidine 0.3mg PO TID Imaging: -CXR showed pulmonary venous congestion -CT abd/pelvis showed mild atelectasis both posterior lower lung zones. Scattered nodular opacities throughout upper and lower lobes and well as lingular and middle lobe regions possible representing a multifocal early pneumonia. Hiatal hernia. Cardiomegaly. Minor wall thickening of a few loops of proximal small bowel. Wall thickening of the descending colon. Bladder wall thickening. (see full report) Will continue to monitor in the ICU Plan discussed with Dr Blackman <Raymond Blackman - Last Filed: 05/17/17 16:58> CCU Objective - Vital Signs / Intake & Output Intake and Output (Last 8hrs): Intake & Output 05/17/17 05/17/17 05/17/17 06:59 14:59 22:59 Intake Total 250 185 Output Total 0 Balance 250 185 Weight 143 lb Intake: Intake, IV Amount 100 Right Hand 100 Oral 250 85 Output: Urine 0 Urine, Voided 0 Other: # Voids Urine, Voided 0 - Medications Active Medications: Active Medications Generic Name Dose Route Start Last Admin Trade Name Freq PRN Reason Stop Dose Admin Acetaminophen 650 mg 05/15/17 14:36 05/17/17 05:25 Tylenol 325mg Tab PO 650 mg Q6 PRN Administration Fever >100.4 F Amlodipine Besylate 10 mg 05/15/17 10:00 05/17/17 10:02 Norvasc PO 10 mg DAILY GADIEL Administration Calcium Acetate 1,334 mg 05/17/17 10:38 05/17/17 11:59 Phoslo PO Not Given TIDCC GADIEL Clonidine HCl 0.3 mg 05/15/17 10:00 05/17/17 14:00 Catapres PO Not Given TID GADIEL Epoetin Oumar 8,000 unit 05/16/17 11:45 05/16/17 13:28 Procrit IV Not Given [facility] [place] Heparin Sodium (Porcine) 5,000 units 05/15/17 10:00 05/17/17 10:02 Heparin SC 5,000 units BID GADIEL Administration Hydralazine HCl 50 mg 05/15/17 10:00 05/16/17 09:26 Apresoline PO Not Given TID GADIEL Hydromorphone HCl 1 mg 05/14/17 19:48 05/17/17 11:56 Dilaudid IVP 1 mg Q4H PRN Administration pain Fluconazole 100 mls @ 100 mls/hr 05/15/17 11:00 05/17/17 10:02 Diflucan Iv 200 Mg/100 Ml Ns IVPB 100 mls/hr DAILY GADIEL Administration Protocol Insulin Human Regular 0 unit 05/15/17 07:30 05/17/17 11:51 Novolin R SC Not Given ACHS [facility] Protocol Metoclopramide HCl 10 mg 05/15/17 07:30 05/17/17 11:58 Reglan IVP 10 mg ACHS GADIEL Administration Ondansetron HCl 4 mg 05/14/17 19:48 05/15/17 06:58 Zofran Inj IVP 4 mg Q6 PRN Administration nausea and vomiting Pantoprazole Sodium 40 mg 05/15/17 10:00 05/17/17 10:02 Protonix Inj IVP 40 mg DAILY GADIEL Administration Vitamin B Complex/Vit C/Folic Acid 1 tab 05/18/17 08:00 Nephro-Yomi PO 0800 GADIEL - Patient Studies Lab Studies: Microbiology Studies 05/14/17 22:19 Blood Culture - Final Blood-Venous Methicillin Resistant S Aureus Gram Stain - Final 05/14/17 22:19 S.aureus & Coag-Neg Staph PNA FISH - Final Blood-Venous Blood Culture - Final Methicillin Resistant S Aureus Gram Stain - Final Lab Studies 05/17/17 05/17/17 05/17/17 Range/Units 15:32 11:02 07:06 WBC (4.8-10.8) K/uL RBC (4.40-5.90) Mil/uL Hgb (12.0-18.0) g/dL Hct (35.0-51.0) % MCV (80.0-94.0) fL MCH (27.0-31.0) pg MCHC (33.0-37.0) g/dL RDW (11.5-14.5) % Plt Count (130-400) K/uL MPV (7.2-11.7) fL Neut % (Auto) (50.0-75.0) % Lymph % (Auto) (20.0-40.0) % Lea % (Auto) (0.0-10.0) % Eos % (Auto) (0.0-4.0) % Baso % (Auto) (0.0-2.0) % Neut # (Auto) (1.8-7.0) K/uL Lymph # (Auto) (1.0-4.3) K/uL Lea # (Auto) (0.0-0.8) K/uL Eos # (Auto) (0.0-0.7) K/uL Baso # (Auto) (0.0-0.2) K/uL Neutrophils % (Manual) (50-75) % Band Neutrophils % (0-2) % Lymphocytes % (Manual) (20-40) % Monocytes % (Manual) (0-10) % Eosinophils % (Manual) (0-4) % Platelet Estimate (NORMAL) Large Platelets Hypochromasia (manual) Anisocytosis (manual) Sodium (132-148) mmol/L Potassium (3.6-5.2) mmol/L Chloride (98-107) mmol/L Carbon Dioxide (22-30) mmol/L Anion Gap (10-20) BUN (9-20) mg/dL Creatinine (0.8-1.5) mg/dL Est GFR ( Amer) Est GFR (Non-Af Amer) POC Glucose (mg/dL) 165 H 165 H 140 H (65-110) mg/dL Random Glucose (75-110) mg/dL Lactic Acid (0.7-2.1) mmol/L Calcium (8.6-10.4) mg/dl Phosphorus (2.5-4.5) mg/dL Magnesium (1.6-2.3) mg/dL Total Bilirubin (0.2-1.3) mg/dL AST (17-59) U/L ALT (21-72) U/L Alkaline Phosphatase (38-126) U/L Total Protein (6.3-8.3) g/dL Albumin (3.5-5.0) g/dL Globulin (2.2-3.9) gm/dL Albumin/Globulin Ratio (1.0-2.1) Procalcitonin (0.19-0.49) NG/ML Stool Leukocytes, Qual (NEGATIVE) Random Vancomycin ug/mL C. difficile Ag & Toxin (NEGATIVE) 05/17/17 05/17/17 05/17/17 Range/Units 06:21 06:21 06:21 WBC (4.8-10.8) K/uL RBC (4.40-5.90) Mil/uL Hgb (12.0-18.0) g/dL Hct (35.0-51.0) % MCV (80.0-94.0) fL MCH (27.0-31.0) pg MCHC (33.0-37.0) g/dL RDW (11.5-14.5) % Plt Count (130-400) K/uL MPV (7.2-11.7) fL Neut % (Auto) (50.0-75.0) % Lymph % (Auto) (20.0-40.0) % Lea % (Auto) (0.0-10.0) % Eos % (Auto) (0.0-4.0) % Baso % (Auto) (0.0-2.0) % Neut # (Auto) (1.8-7.0) K/uL Lymph # (Auto) (1.0-4.3) K/uL Lea # (Auto) (0.0-0.8) K/uL Eos # (Auto) (0.0-0.7) K/uL Baso # (Auto) (0.0-0.2) K/uL Neutrophils % (Manual) (50-75) % Band Neutrophils % (0-2) % Lymphocytes % (Manual) (20-40) % Monocytes % (Manual) (0-10) % Eosinophils % (Manual) (0-4) % Platelet Estimate (NORMAL) Large Platelets Hypochromasia (manual) Anisocytosis (manual) Sodium 136 (132-148) mmol/L Potassium 5.0 (3.6-5.2) mmol/L Chloride 89 L (98-107) mmol/L Carbon Dioxide 26 (22-30) mmol/L Anion Gap 26 H (10-20) BUN 32 H (9-20) mg/dL Creatinine 5.7 H (0.8-1.5) mg/dL Est GFR ( Amer) 14 Est GFR (Non-Af Amer) 11 POC Glucose (mg/dL) (65-110) mg/dL Random Glucose 159 H (75-110) mg/dL Lactic Acid 1.0 (0.7-2.1) mmol/L Calcium 8.0 L (8.6-10.4) mg/dl Phosphorus 6.7 H (2.5-4.5) mg/dL Magnesium 1.8 (1.6-2.3) mg/dL Total Bilirubin 0.7 (0.2-1.3) mg/dL AST 49 (17-59) U/L ALT 31 (21-72) U/L Alkaline Phosphatase 179 H D (38-126) U/L Total Protein 7.0 (6.3-8.3) g/dL Albumin 3.3 L (3.5-5.0) g/dL Globulin 3.7 (2.2-3.9) gm/dL Albumin/Globulin Ratio 0.9 L (1.0-2.1) Procalcitonin 28.09 H (0.19-0.49) NG/ML Stool Leukocytes, Qual (NEGATIVE) Random Vancomycin ug/mL C. difficile Ag & Toxin (NEGATIVE) 05/17/17 05/17/17 05/16/17 Range/Units 06:21 06:21 21:30 WBC 12.5 H (4.8-10.8) K/uL RBC 3.27 L (4.40-5.90) Mil/uL Hgb 9.3 L (12.0-18.0) g/dL Hct 28.3 L (35.0-51.0) % MCV 86.6 (80.0-94.0) fL MCH 28.5 (27.0-31.0) pg MCHC 32.9 L (33.0-37.0) g/dL RDW 18.1 H (11.5-14.5) % Plt Count 145 (130-400) K/uL MPV 10.3 (7.2-11.7) fL Neut % (Auto) 87.8 H (50.0-75.0) % Lymph % (Auto) 3.3 L (20.0-40.0) % Lea % (Auto) 4.9 (0.0-10.0) % Eos % (Auto) 2.9 (0.0-4.0) % Baso % (Auto) 1.1 (0.0-2.0) % Neut # (Auto) 11.0 H (1.8-7.0) K/uL Lymph # (Auto) 0.4 L (1.0-4.3) K/uL Lea # (Auto) 0.6 (0.0-0.8) K/uL Eos # (Auto) 0.4 (0.0-0.7) K/uL Baso # (Auto) 0.1 (0.0-0.2) K/uL Neutrophils % (Manual) 81 H (50-75) % Band Neutrophils % 8 H (0-2) % Lymphocytes % (Manual) 3 L (20-40) % Monocytes % (Manual) 3 (0-10) % Eosinophils % (Manual) 5 H (0-4) % Platelet Estimate Normal (NORMAL) Large Platelets Present Hypochromasia (manual) Slight Anisocytosis (manual) Moderate Sodium (132-148) mmol/L Potassium (3.6-5.2) mmol/L Chloride (98-107) mmol/L Carbon Dioxide (22-30) mmol/L Anion Gap (10-20) BUN (9-20) mg/dL Creatinine (0.8-1.5) mg/dL Est GFR ( Amer) Est GFR (Non-Af Amer) POC Glucose (mg/dL) 145 H (65-110) mg/dL Random Glucose (75-110) mg/dL Lactic Acid (0.7-2.1) mmol/L Calcium (8.6-10.4) mg/dl Phosphorus (2.5-4.5) mg/dL Magnesium (1.6-2.3) mg/dL Total Bilirubin (0.2-1.3) mg/dL AST (17-59) U/L ALT (21-72) U/L Alkaline Phosphatase (38-126) U/L Total Protein (6.3-8.3) g/dL Albumin (3.5-5.0) g/dL Globulin (2.2-3.9) gm/dL Albumin/Globulin Ratio (1.0-2.1) Procalcitonin (0.19-0.49) NG/ML Stool Leukocytes, Qual (NEGATIVE) Random Vancomycin 18.67 ug/mL C. difficile Ag & Toxin (NEGATIVE) 05/15/17 Range/Units 11:40 WBC (4.8-10.8) K/uL RBC (4.40-5.90) Mil/uL Hgb (12.0-18.0) g/dL Hct (35.0-51.0) % MCV (80.0-94.0) fL MCH (27.0-31.0) pg MCHC (33.0-37.0) g/dL RDW (11.5-14.5) % Plt Count (130-400) K/uL MPV (7.2-11.7) fL Neut % (Auto) (50.0-75.0) % Lymph % (Auto) (20.0-40.0) % Lea % (Auto) (0.0-10.0) % Eos % (Auto) (0.0-4.0) % Baso % (Auto) (0.0-2.0) % Neut # (Auto) (1.8-7.0) K/uL Lymph # (Auto) (1.0-4.3) K/uL Lea # (Auto) (0.0-0.8) K/uL Eos # (Auto) (0.0-0.7) K/uL Baso # (Auto) (0.0-0.2) K/uL Neutrophils % (Manual) (50-75) % Band Neutrophils % (0-2) % Lymphocytes % (Manual) (20-40) % Monocytes % (Manual) (0-10) % Eosinophils % (Manual) (0-4) % Platelet Estimate (NORMAL) Large Platelets Hypochromasia (manual) Anisocytosis (manual) Sodium (132-148) mmol/L Potassium (3.6-5.2) mmol/L Chloride (98-107) mmol/L Carbon Dioxide (22-30) mmol/L Anion Gap (10-20) BUN (9-20) mg/dL Creatinine (0.8-1.5) mg/dL Est GFR ( Amer) Est GFR (Non-Af Amer) POC Glucose (mg/dL) (65-110) mg/dL Random Glucose (75-110) mg/dL Lactic Acid (0.7-2.1) mmol/L Calcium (8.6-10.4) mg/dl Phosphorus (2.5-4.5) mg/dL Magnesium (1.6-2.3) mg/dL Total Bilirubin (0.2-1.3) mg/dL AST (17-59) U/L ALT (21-72) U/L Alkaline Phosphatase (38-126) U/L Total Protein (6.3-8.3) g/dL Albumin (3.5-5.0) g/dL Globulin (2.2-3.9) gm/dL Albumin/Globulin Ratio (1.0-2.1) Procalcitonin (0.19-0.49) NG/ML Stool Leukocytes, Qual Negative (NEGATIVE) Random Vancomycin ug/mL C. difficile Ag & Toxin Negative (NEGATIVE) Laboratory Results - last 24 hr 05/15/17 05/16/17 05/17/17 11:40 21:30 06:21 WBC RBC Hgb Hct MCV MCH MCHC RDW Plt Count MPV Neut % (Auto) Lymph % (Auto) Lea % (Auto) Eos % (Auto) Baso % (Auto) Neut # (Auto) Lymph # (Auto) Lea # (Auto) Eos # (Auto) Baso # (Auto) Neutrophils % (Manual) Band Neutrophils % Lymphocytes % (Manual) Monocytes % (Manual) Eosinophils % (Manual) Platelet Estimate Large Platelets Hypochromasia (manual) Anisocytosis (manual) Sodium Potassium Chloride Carbon Dioxide Anion Gap BUN Creatinine Est GFR ( Amer) Est GFR (Non-Af Amer) POC Glucose (mg/dL) 145 H Random Glucose Lactic Acid Calcium Phosphorus Magnesium Total Bilirubin AST ALT Alkaline Phosphatase Total Protein Albumin Globulin Albumin/Globulin Ratio Procalcitonin Stool Leukocytes, Qual Negative Random Vancomycin 18.67 C. difficile Ag & Toxin Negative 05/17/17 05/17/17 05/17/17 06:21 06:21 06:21 WBC 12.5 H RBC 3.27 L Hgb 9.3 L Hct 28.3 L MCV 86.6 MCH 28.5 MCHC 32.9 L RDW 18.1 H Plt Count 145 MPV 10.3 Neut % (Auto) 87.8 H Lymph % (Auto) 3.3 L Lea % (Auto) 4.9 Eos % (Auto) 2.9 Baso % (Auto) 1.1 Neut # (Auto) 11.0 H Lymph # (Auto) 0.4 L Lea # (Auto) 0.6 Eos # (Auto) 0.4 Baso # (Auto) 0.1 Neutrophils % (Manual) 81 H Band Neutrophils % 8 H Lymphocytes % (Manual) 3 L Monocytes % (Manual) 3 Eosinophils % (Manual) 5 H Platelet Estimate Normal Large Platelets Present Hypochromasia (manual) Slight Anisocytosis (manual) Moderate Sodium 136 Potassium 5.0 Chloride 89 L Carbon Dioxide 26 Anion Gap 26 H BUN 32 H Creatinine 5.7 H Est GFR ( Amer) 14 Est GFR (Non-Af Amer) 11 POC Glucose (mg/dL) Random Glucose 159 H Lactic Acid Calcium 8.0 L Phosphorus 6.7 H Magnesium 1.8 Total Bilirubin 0.7 AST 49 ALT 31 Alkaline Phosphatase 179 H D Total Protein 7.0 Albumin 3.3 L Globulin 3.7 Albumin/Globulin Ratio 0.9 L Procalcitonin 28.09 H Stool Leukocytes, Qual Random Vancomycin C. difficile Ag & Toxin 05/17/17 05/17/17 05/17/17 06:21 07:06 11:02 WBC RBC Hgb Hct MCV MCH MCHC RDW Plt Count MPV Neut % (Auto) Lymph % (Auto) Lea % (Auto) Eos % (Auto) Baso % (Auto) Neut # (Auto) Lymph # (Auto) Lea # (Auto) Eos # (Auto) Baso # (Auto) Neutrophils % (Manual) Band Neutrophils % Lymphocytes % (Manual) Monocytes % (Manual) Eosinophils % (Manual) Platelet Estimate Large Platelets Hypochromasia (manual) Anisocytosis (manual) Sodium Potassium Chloride Carbon Dioxide Anion Gap BUN Creatinine Est GFR ( Amer) Est GFR (Non-Af Amer) POC Glucose (mg/dL) 140 H 165 H Random Glucose Lactic Acid 1.0 Calcium Phosphorus Magnesium Total Bilirubin AST ALT Alkaline Phosphatase Total Protein Albumin Globulin Albumin/Globulin Ratio Procalcitonin Stool Leukocytes, Qual Random Vancomycin C. difficile Ag & Toxin 05/17/17 15:32 WBC RBC Hgb Hct MCV MCH MCHC RDW Plt Count MPV Neut % (Auto) Lymph % (Auto) Lea % (Auto) Eos % (Auto) Baso % (Auto) Neut # (Auto) Lymph # (Auto) Lea # (Auto) Eos # (Auto) Baso # (Auto) Neutrophils % (Manual) Band Neutrophils % Lymphocytes % (Manual) Monocytes % (Manual) Eosinophils % (Manual) Platelet Estimate Large Platelets Hypochromasia (manual) Anisocytosis (manual) Sodium Potassium Chloride Carbon Dioxide Anion Gap BUN Creatinine Est GFR ( Amer) Est GFR (Non-Af Amer) POC Glucose (mg/dL) 165 H Random Glucose Lactic Acid Calcium Phosphorus Magnesium Total Bilirubin AST ALT Alkaline Phosphatase Total Protein Albumin Globulin Albumin/Globulin Ratio Procalcitonin Stool Leukocytes, Qual Random Vancomycin C. difficile Ag & Toxin Critical Care Progress Note - Nutrition Nutrition: Nutrition Category Date Time Status Renal Diet [DIET] Diets 05/16/17 Breakfast Active Assessment/Plan (1) Leukocytosis Current Visit: No Status: Acute (2) Intractable vomiting with nausea Current Visit: Yes Status: Acute (3) CKD (chronic kidney disease) requiring chronic dialysis Current Visit: Yes Status: Acute Attending/Attestation - Attestation I have personally seen and examined this patient.: Yes I have fully participated in the care of the patient.: Yes I have reviewed all pertinent clinical information: Yes Notes (Text): 05/17/17 16:55 patient seen and examined in the intensive care unit. Being treated for MRSA bacteremia For DINO Continue hemodialysis Continue to monitor in ICU
--- NOTE | 2017-05-17 09:59 | CP.PCM.PN ---
Subjective - Date & Time of Evaluation Date of Evaluation: 05/17/17 Time of Evaluation: 10:00 - Subjective Subjective: MRSA blood switched to zyvox by ICU team await DINO Objective - Vital Signs/Intake and Output Vital Signs (last 24 hours): Temp Pulse Resp BP Pulse Ox 99.5 F 85 10 L 156/79 H 94 L 05/17/17 06:25 05/17/17 07:55 05/17/17 07:55 05/17/17 07:55 05/17/17 04:00 Intake and Output: 05/17/17 05/17/17 06:59 18:59 Intake Total 500 0 Balance 500 0 - Medications Medications: Current Medications Acetaminophen (Tylenol 325mg Tab) 650 mg PO Q6 PRN PRN Reason: Fever >100.4 F Last Admin: 05/17/17 05:25 Dose: 650 mg Amlodipine Besylate (Norvasc) 10 mg PO DAILY [facility] Last Admin: 05/15/17 09:00 Dose: Not Given Calcium Acetate (Phoslo) 667 mg PO TIDCC [facility] Last Admin: 05/17/17 08:26 Dose: 667 mg Clonidine HCl (Catapres) 0.3 mg PO TID [facility] Last Admin: 05/16/17 18:00 Dose: Not Given Epoetin Oumar (Procrit) 8,000 unit IV MWF [facility] Last Admin: 05/16/17 13:28 Dose: Not Given Heparin Sodium (Porcine) (Heparin) 5,000 units SC BID [facility] Last Admin: 05/16/17 21:05 Dose: 5,000 units Hydralazine HCl (Apresoline) 50 mg PO TID [facility] Last Admin: 05/16/17 09:26 Dose: Not Given Hydromorphone HCl (Dilaudid) 1 mg IVP Q4H PRN PRN Reason: pain Last Admin: 05/17/17 06:20 Dose: 1 mg Fluconazole (Diflucan Iv 200 Mg/100 Ml Ns) 100 mls @ 100 mls/hr IVPB DAILY [facility] PRN Reason: Protocol Last Admin: 05/16/17 14:09 Dose: 100 mls/hr Insulin Human Regular (Novolin R) 0 unit SC ACHS [facility] PRN Reason: Protocol Last Admin: 05/17/17 07:46 Dose: Not Given Metoclopramide HCl (Reglan) 10 mg IVP ACHS [facility] Last Admin: 05/17/17 08:26 Dose: 10 mg Ondansetron HCl (Zofran Inj) 4 mg IVP Q6 PRN PRN Reason: nausea and vomiting Last Admin: 05/15/17 06:58 Dose: 4 mg Pantoprazole Sodium (Protonix Inj) 40 mg IVP DAILY [facility] Last Admin: 05/16/17 13:20 Dose: 40 mg - Labs Labs: 05/17/17 06:21 05/17/17 06:21 PT 12.5 SECONDS (9.7-12.2) H 05/16/17 09:51 INR 1.1 05/16/17 09:51 APTT 28 SECONDS (21-34) D 05/16/17 09:51 - Constitutional Appears: Non-toxic, Chronically Ill - Head Exam Head Exam: NORMOCEPHALIC - Eye Exam Eye Exam: PERRL. absent: Scleral icterus - ENT Exam ENT Exam: Mucous Membranes Dry - Neck Exam Neck Exam: absent: Lymphadenopathy - Respiratory Exam Respiratory Exam: Decreased Breath Sounds - Cardiovascular Exam Cardiovascular Exam: REGULAR RHYTHM - GI/Abdominal Exam GI & Abdominal Exam: Distended, Soft. absent: Tenderness - Rectal Exam Rectal Exam: Deferred - Exam Exam: NORMAL INSPECTION - Extremities Exam Extremities Exam: absent: Pedal Edema - Back Exam Back Exam: absent: CVA tenderness (L), CVA tenderness (R), paraspinal tenderness Assessment and Plan (1) Sepsis Status: Acute (2) Sepsis Status: Acute (3) CKD (chronic kidney disease) requiring chronic dialysis Status: Acute (4) CRF (chronic renal failure) Status: Acute (5) Abdominal discomfort Status: Acute (6) Abdominal pain Status: Acute
[2017-05-17] MEDS: Fluconazole IV 200mg/100 ml NS 100 ML IVPB SCH (10:02)
--- NOTE | 2017-05-17 12:25 | CARD ---
APPROVED REPORT EXAM: Two-dimensional and M-mode echocardiogram with Doppler and color Doppler. Other Information Quality : GoodRhythm : INDICATION Syncope RISK FACTORS Hypertension Hyperlipidemia Diabetes 2D DIMENSIONS IVSd1.5 (0.7-1.1cm)LVDd4.6 (3.9-5.9cm) PWd1.6 (0.7-1.1cm)LVDs3.2 (2.5-4.0cm) FS (%) 31.2 %LVEF (%)59.0 (>50%) M-Mode DIMENSIONS Left Atrium (MM)4.72 (2.5-4.0cm)Aortic Root2.53 (2.2-3.7cm) Aortic Cusp Exc.1.21 (1.5-2.0cm) Mitral Valve MV E Bkjcwndx420.4cm/sMV A Xcwwwolz26.8cm/sE/A ratio1.4 TDI E/Lateral E'0.0E/Medial E'0.0 Tricuspid Valve TR Peak Arrmtmgx228xn/sTR Peak Gr.[id number] LEFT VENTRICLE The left ventricle is normal size. There is mild concentric left ventricular hypertrophy. The left ventricular function is normal. The left ventricular ejection fraction is within the normal range. There is normal LV segmental wall motion. Tissue Doppler imaging reveals mild left ventricular diastolic dysfunction. No left ventricle thrombus noted on this study. There is no ventricular septal defect visualized. There is no left ventricular aneurysm. There is no mass noted in the left ventricle. RIGHT VENTRICLE The right ventricle is normal size. There is normal right ventricular wall thickness. The right ventricular systolic function is normal. ATRIA The left atrium size is normal. The right atrium size is normal. The interatrial septum is intact with no evidence for an atrial septal defect. AORTIC VALVE The aortic valve is normal in structure. No aortic regurgitation is present. There is no aortic valvular stenosis. There is no aortic valvular vegetation. MITRAL VALVE The mitral valve is normal in structure. There is no mitral valve stenosis. There is no mitral valve regurgitation noted. TRICUSPID VALVE The tricuspid valve is normal in structure. There is mild pulmonary hypertension. PULMONIC VALVE The pulmonary valve is normal in structure. There is no pulmonic valvular regurgitation. GREAT VESSELS The aortic root is normal in size. The ascending aorta is normal in size. The pulmonary artery is normal. The IVC is normal in size and collapses >50% with inspiration. PERICARDIAL EFFUSION There is no pericardial effusion. <Conclusion> There is mild concentric left ventricular hypertrophy. The left ventricular function is normal. The left ventricular ejection fraction is within the normal range. Tissue Doppler imaging reveals mild left ventricular diastolic dysfunction. There is mild pulmonary hypertension.
[2017-05-17 13:36] LABS: C DIFF TOXIN A B NEGATIVE (NEGATIVE)
[2017-05-17] MEDS ORDERED: Lidocaine 4% (Laryng-O-Jet) Kit MM ONE (13:50)
[2017-05-17] MEDS ORDERED: Lidocaine 100 MG in Sodium Chloride 0.9% 100 ML IV ONE (14:24)
--- NOTE | 2017-05-17 16:39 | CP.PCM.PN ---
Subjective - Date & Time of Evaluation Date of Evaluation: 05/17/17 Time of Evaluation: 10:00 - Subjective Subjective: Nephrology Consultation Note Assessment: critical MRSA sepsis with lactic acidosis ? source recurrent nausea/vomiting, Cyclic Emesis Syndrome, marijuana abuse, gastroparesis uncontrolled DM with hypoglycemia and hyperglycemia Diabetic chronic Kidney Disease (E11.22) Hypertensive Chronic Kidney Disease (I12.0) End stage renal disease (N18.6) dependence on hemodialysis (Z99.2) (MWF) via AVF Anemia (D64.9), Hyperphosphatemia (E83.39), Secondary Hyperparathyroidism (E21.1 ), HTN (I12.0) Plan: dialysis tomorrow as per MWF schedule as ordered. Continue with Nephrovite 1 tab /day. last Hb 9.3 hence ordered MOHINI with HD Increased phos binders, last phos 6.7 BP control with meds as ordered. no ACEI/ARB due to hyperkalemia Glycemic control, Dialysis consistent diet Further work up/management as per primary team Dose meds/antibiotics for ESRD status. Avoid fleets enema/magnesium based laxatives. pt to abstain from marijuana DINO to r/o endocarditis, being planned Thanks for allowing me to participate in care of your patient. Will follow patient with you. Please call if any Qs. Dr Brenton Larsen Office: [phone] HPI: Pt is a 36 y/o M with hx of ESRD on hemodialysis (MWF) via AVF, chronic anemia, hyperphosphatemia, secondary hyperparathyroidism, Diabetes Mellitus, hypertension, recurrent nausea/vomiting and multiple hospitalization for same, came back with sepsis and pain abdomen Denies chest pain, palpitation, leg swelling improved pain upper abdomen ROS: Constitutional Symptoms: No Recent Weight Changes Cardiovascular: No chest pain. No palpitations. Pulmonary: No cough. Gastrointestinal: c/o abdominal pain, now improved. has nausea. improved vomiting. Denies change in bowel habits. Denies Bleeding All other negative. Physical Examination: General Appearance: uncomfortable, in no acute respiratory distress, co- operative. ill appearing Vitals reviewed and noted as below Head; Atraumatic, normocephalic ENT: no ulcers no thrush. Tongue is midline. Oropharynx: no rash or ulcers. EYES: Pupils are equal, round and reactive to light accommodation. Eye muscles and extraocular movement intact. Sclera is anicteric. Neck; supple no lymphadenopathy, no thyromegaly or bruit Lungs: Normal respiratory rate/effort. Breath sounds bilateral equal and clear Heart: Increased rate. s1s2 normal. No rub or gallop. Extremities: trace edema. No varicose veins Neurological: Patient is alert, awake and oriented to person, place and time. No focal deficit. Strength bilateral appropriate and equal Skin: Warm and dry. Normal turgor. No rash. Palpitation: Normal elasticity for age Abdomen: Abdomen is soft. Bowel sounds +. There is no epigastric abdominal tenderness, no guarding/rigidity or organomegaly Psych: limited insight and normal affect/mood MSK: no joint tenderness or swelling. Digits and nails normal, no deformity. : kidney or bladder not palpable. Access: AVF Labs/imaging reviewed. Past medical history, past surgical history, family history, social history, allergy reviewed and noted as below Family Hx: no hx of CKD. Non contributory sec HTN work up neg as renin/ioana, metanephrine and renal artery doppler Objective - Vital Signs/Intake and Output Vital Signs (last 24 hours): Temp Pulse Resp BP Pulse Ox 99.5 F 78 12 159/82 H 95 05/17/17 06:25 05/17/17 11:55 05/17/17 11:55 05/17/17 11:55 05/17/17 11:55 Intake and Output: 05/17/17 05/17/17 06:59 18:59 Intake Total 500 185 Output Total 0 Balance 500 185 - Medications Medications: Current Medications Acetaminophen (Tylenol 325mg Tab) 650 mg PO Q6 PRN PRN Reason: Fever >100.4 F Last Admin: 05/17/17 05:25 Dose: 650 mg Amlodipine Besylate (Norvasc) 10 mg PO DAILY [facility] Last Admin: 05/17/17 10:02 Dose: 10 mg Calcium Acetate (Phoslo) 1,334 mg PO TIDCC [facility] Last Admin: 05/17/17 11:59 Dose: Not Given Clonidine HCl (Catapres) 0.3 mg PO TID [facility] Last Admin: 05/17/17 14:00 Dose: Not Given Epoetin Oumar (Procrit) 8,000 unit IV MWF [facility] Last Admin: 05/16/17 13:28 Dose: Not Given Heparin Sodium (Porcine) (Heparin) 5,000 units SC BID [facility] Last Admin: 05/17/17 10:02 Dose: 5,000 units Hydralazine HCl (Apresoline) 50 mg PO TID [facility] Last Admin: 05/16/17 09:26 Dose: Not Given Hydromorphone HCl (Dilaudid) 1 mg IVP Q4H PRN PRN Reason: pain Last Admin: 05/17/17 11:56 Dose: 1 mg Fluconazole (Diflucan Iv 200 Mg/100 Ml Ns) 100 mls @ 100 mls/hr IVPB DAILY [facility] PRN Reason: Protocol Last Admin: 05/17/17 10:02 Dose: 100 mls/hr Insulin Human Regular (Novolin R) 0 unit SC ACHS [facility] PRN Reason: Protocol Last Admin: 05/17/17 11:51 Dose: Not Given Metoclopramide HCl (Reglan) 10 mg IVP ACHS [facility] Last Admin: 05/17/17 11:58 Dose: 10 mg Ondansetron HCl (Zofran Inj) 4 mg IVP Q6 PRN PRN Reason: nausea and vomiting Last Admin: 05/15/17 06:58 Dose: 4 mg Pantoprazole Sodium (Protonix Inj) 40 mg IVP DAILY [facility] Last Admin: 05/17/17 10:02 Dose: 40 mg Vitamin B Complex/Vit C/Folic Acid (Nephro-Yomi) 1 tab PO 0800 [facility] - Labs Labs: 05/17/17 06:21 05/17/17 06:21 PT 12.5 SECONDS (9.7-12.2) H 05/16/17 09:51 INR 1.1 05/16/17 09:51 APTT 28 SECONDS (21-34) D 05/16/17 09:51
[2017-05-18] MEDS: HYDROmorphone 1 mg/ml ISec IVP PRN ×4 (04:37→21:06)
[2017-05-18 06:08] LABS: BASO # 0.1 K/uL (0.0-0.2); BASO % 0.6 % (0.0-2.0); EOS # 0.6 K/uL (0.0-0.7); HEMOGLOBIN 8.5 g/dL (12.0-18.0); LYMPH # 0.9 K/uL (1.0-4.3); LYMPH % 7.2 % (20.0-40.0); MEAN CELL VOLUME 86.3 fL (80.0-94.0); MEAN CORPUSCULAR HEMOGLOBIN 27.9 pg (27.0-31.0); MEAN CORPUSCULAR HGB CONC 32.4 g/dL (33.0-37.0); MEAN PLATELET VOLUME 10.4 fL (7.2-11.7); MONO # 1.3 K/uL (0.0-0.8); MONO % 10.6 % (0.0-10.0); NEUT # 9.8 K/uL (1.8-7.0); NEUT % 76.6 % (50.0-75.0); PLATELET COUNT 158 K/uL (130-400); RBC 3.06 Mil/uL (4.40-5.90); RED CELL DISTRIBUTION WIDTH 18.3 % (11.5-14.5); WHITE BLOOD COUNT 12.7 K/uL (4.8-10.8)
[2017-05-18 06:37] LABS: ALB/GLOB RATIO 0.8 (1.0-2.1); ALBUMIN 2.8 g/dL (3.5-5.0)
[2017-05-18 08:04] LABS: ANISOCYTOSIS MODERATE; BANDS 16 % (0-2); EOSINOPHIL 8 % (0-4); LYMPHOCYTE 6 % (20-40); METAMYELOCYTE 1 % (0-0); MONOCYTE 6 % (0-10); PLATELET ESTIMATE NORMAL (NORMAL); TOTAL CELLS COUNTED 100
[2017-05-18 08:05] LABS: HYPOCHROMIC SLIGHT; NEUTROPHIL 63 % (50-75); TOXIC GRANULATION PRESENT
[2017-05-18 08:06] LABS: LARGE PLATELETS PRESENT
[2017-05-18] MEDS: Multivitamin Vitamin B Complex (Nephro-Vite) Tab PO SCH (08:18)
[2017-05-18] MEDS: (Novolin R) Insulin Human Regular 100 units/ml vial SC SCH ×4 (08:19→21:08)
[2017-05-18] MEDS ORDERED: Vancomycin 1 gm/NS 200 ml 1 GM/200 ML BAG IVPB ONE (09:00)
--- NOTE | 2017-05-18 09:05 | CP.PCM.PN ---
Subjective - Date & Time of Evaluation Date of Evaluation: 05/17/17 Time of Evaluation: 13:30 - Subjective Subjective: Patient s/p DINO no endocarditis Normal EF Full report to follow Objective - Vital Signs/Intake and Output Vital Signs (last 24 hours): Temp Pulse Resp BP Pulse Ox 98.6 F 79 15 167/80 H 94 L 05/18/17 06:00 05/18/17 07:12 05/18/17 07:12 05/18/17 07:12 05/18/17 07:00 Intake and Output: 05/18/17 05/18/17 06:59 18:59 Intake Total 990 Output Total 0 0 Balance 990 0 - Medications Medications: Current Medications Acetaminophen (Tylenol 325mg Tab) 650 mg PO Q6 PRN PRN Reason: Fever >100.4 F Last Admin: 05/17/17 05:25 Dose: 650 mg Amlodipine Besylate (Norvasc) 10 mg PO DAILY [facility] Last Admin: 05/17/17 10:02 Dose: 10 mg Calcium Acetate (Phoslo) 1,334 mg PO TIDCC [facility] Last Admin: 05/18/17 08:18 Dose: 1,334 mg Clonidine HCl (Catapres) 0.3 mg PO TID [facility] Last Admin: 05/17/17 17:01 Dose: 0.3 mg Epoetin Oumar (Procrit) 8,000 unit IV MWF [facility] Last Admin: 05/16/17 13:28 Dose: Not Given Heparin Sodium (Porcine) (Heparin) 5,000 units SC BID [facility] Last Admin: 05/17/17 17:01 Dose: 5,000 units Hydralazine HCl (Apresoline) 50 mg PO TID [facility] Last Admin: 05/16/17 09:26 Dose: Not Given Hydromorphone HCl (Dilaudid) 1 mg IVP Q4H PRN PRN Reason: pain Last Admin: 05/18/17 04:37 Dose: 1 mg Fluconazole (Diflucan Iv 200 Mg/100 Ml Ns) 100 mls @ 100 mls/hr IVPB DAILY [facility] PRN Reason: Protocol Last Admin: 05/17/17 10:02 Dose: 100 mls/hr Vancomycin/Sodium Chloride (Vancomycin 1 Gm/Ns 200 Ml) 1 gm in 200 mls @ 166.7 mls/hr IVPB ONCE ONE PRN Reason: Protocol Stop: 05/18/17 10:11 Insulin Human Regular (Novolin R) 0 unit SC ACHS [facility] PRN Reason: Protocol Last Admin: 05/18/17 08:19 Dose: 3 unit Metoclopramide HCl (Reglan) 10 mg IVP ACHS [facility] Last Admin: 05/18/17 08:00 Dose: 10 mg Ondansetron HCl (Zofran Inj) 4 mg IVP Q6 PRN PRN Reason: nausea and vomiting Last Admin: 05/15/17 06:58 Dose: 4 mg Pantoprazole Sodium (Protonix Inj) 40 mg IVP DAILY [facility] Last Admin: 05/17/17 10:02 Dose: 40 mg Vitamin B Complex/Vit C/Folic Acid (Nephro-Yomi) 1 tab PO 0800 [facility] Last Admin: 05/18/17 08:18 Dose: 1 tab - Labs Labs: 05/18/17 06:01 05/18/17 06:02 PT 12.5 SECONDS (9.7-12.2) H 05/16/17 09:51 INR 1.1 05/16/17 09:51 APTT 28 SECONDS (21-34) D 05/16/17 09:51
[2017-05-18] MEDS: EPOETIN ALFA 4,000 UNIT/ML ML Dialysis IV SCH (09:29)
--- NOTE | 2017-05-18 11:01 | CP.CCUPN ---
<Qing Zambrano - Last Filed: 05/18/17 11:10> CCU Subjective - Physician Review Subjective (Free Text): 05/18/17 11:00 Patient seen and examined at bedside. Per nursing no acute events overnight. Patient is doing well, offers no complaints at this time. Patient for hemodialysis today. Treating for MRSA bacteremia. CCU Objective - Vital Signs / Intake & Output Vital Signs (Last 4 hours): Vital Signs Temp Pulse Pulse Resp BP BP Pulse Ox 05/18/17 10:18 83 12 189/87 H 96 05/18/17 10:03 80 13 187/85 H 96 05/18/17 10:00 98.1 F 79 12 96 05/18/17 09:48 82 13 167/83 H 167/83 H 95 05/18/17 09:33 91 H 14 161/65 H 161/65 H 93 L 05/18/17 09:18 81 17 151/70 H 151/70 H 95 05/18/17 09:03 98.3 F 83 82 18 151/77 H 151/77 H 97 05/18/17 09:00 98.3 F 83 13 153/66 H 97 05/18/17 08:12 82 12 153/66 H 94 L 05/18/17 08:00 82 17 96 05/18/17 07:12 79 15 167/80 H Intake and Output (Last 8hrs): Intake & Output 05/17/17 05/18/17 05/18/17 22:59 06:59 14:59 Intake Total 850 590 260 Output Total 0 0 0 Balance 850 590 260 Weight 64.41 kg Intake: Oral 850 590 260 Output: Urine 0 0 0 Urine, Voided 0 0 0 Stool 0 Emesis 0 Other: # Bowel Movements 1 - Physical Exam Head: Positive for: Atraumatic, Normocephalic Pupils: Positive for: PERRL Extroacular Muscles: Positive for: EOMI Conjunctiva: Positive for: Normal Mouth: Positive for: Moist Mucous Membranes Respiratory/Chest: Positive for: Clear to Auscultation, Good Air Exchange. Negative for: Respiratory Distress, Accessory Muscle Use Cardiovascular: Positive for: Regular Rate and Rhythm, Normal S1, S2 Abdomen: Positive for: Tenderness. Negative for: Distention Upper Extremity: Positive for: Normal Inspection, Other (Left AVF) Lower Extremity: Positive for: Normal Inspection Skin: Positive for: Warm, Dry, Normal Color Psychiatric: Positive for: Alert, Oriented x 3 - Medications Active Medications: Active Medications Generic Name Dose Route Start Last Admin Trade Name Freq PRN Reason Stop Dose Admin Acetaminophen 650 mg 05/15/17 14:36 05/17/17 05:25 Tylenol 325mg Tab PO 650 mg Q6 PRN Administration Fever >100.4 F Amlodipine Besylate 10 mg 05/15/17 10:00 05/17/17 10:02 Norvasc PO 10 mg DAILY G[facility]IEL Administration Calcium Acetate 1,334 mg 05/17/17 10:38 05/18/17 08:18 Phoslo PO 1,334 mg TIDCC [facility] Administration Clonidine HCl 0.3 mg 05/15/17 10:00 05/18/17 09:30 Catapres PO Not Given TID [facility] Epoetin Oumar 8,000 unit 05/16/17 11:45 05/18/17 09:29 Procrit IV 8,000 unit MWF [facility] Administration Heparin Sodium (Porcine) 5,000 units 05/15/17 10:00 05/18/17 09:17 Heparin SC 5,000 units BID [facility] Administration Hydralazine HCl 50 mg 05/15/17 10:00 05/16/17 09:26 Apresoline PO Not Given TID [facility] Hydromorphone HCl 1 mg 05/14/17 19:48 05/18/17 10:47 Dilaudid IVP 1 mg Q4H PRN Administration pain Fluconazole 100 mls @ 100 mls/hr 05/15/17 11:00 05/17/17 10:02 Diflucan Iv 200 Mg/100 Ml Ns IVPB 100 mls/hr DAILY [facility] Administration Protocol Insulin Human Regular 0 unit 05/15/17 07:30 05/18/17 08:19 Novolin R SC 3 unit ACHS [facility] Administration Protocol Metoclopramide HCl 10 mg 05/15/17 07:30 05/18/17 08:00 Reglan IVP 10 mg ACHS [facility] Administration Ondansetron HCl 4 mg 05/14/17 19:48 05/15/17 06:58 Zofran Inj IVP 4 mg Q6 PRN Administration nausea and vomiting Pantoprazole Sodium 40 mg 05/15/17 10:00 05/18/17 09:17 Protonix Inj IVP 40 mg DAILY [facility] Administration Vitamin B Complex/Vit C/Folic Acid 1 tab 05/18/17 08:00 05/18/17 08:18 Nephro-Yomi PO 1 tab 0800 G[facility]EL Administration - Patient Studies Lab Studies: Microbiology Studies 05/15/17 11:40 Stool Culture - Final Stool NO SALMONELLA, SHIGELLA OR CAMPYLOBACTER ISOLATED. 05/14/17 22:19 Blood Culture - Final Blood-Venous Methicillin Resistant S Aureus Gram Stain - Final 05/14/17 22:19 S.aureus & Coag-Neg Staph PNA FISH - Final Blood-Venous Blood Culture - Final Methicillin Resistant S Aureus Gram Stain - Final Lab Studies 05/18/17 05/18/17 05/18/17 Range/Units 07:34 06:02 06:01 WBC 12.7 H (4.8-10.8) K/uL RBC 3.06 L (4.40-5.90) Mil/uL Hgb 8.5 L (12.0-18.0) g/dL Hct 26.4 L (35.0-51.0) % MCV 86.3 (80.0-94.0) fL MCH 27.9 (27.0-31.0) pg MCHC 32.4 L (33.0-37.0) g/dL RDW 18.3 H (11.5-14.5) % Plt Count 158 (130-400) K/uL MPV 10.4 (7.2-11.7) fL Neut % (Auto) 76.6 H (50.0-75.0) % Lymph % (Auto) 7.2 L (20.0-40.0) % [place] % (Auto) 10.6 H (0.0-10.0) % Eos % (Auto) 5.0 H (0.0-4.0) % Baso % (Auto) 0.6 (0.0-2.0) % Neut # (Auto) 9.8 H (1.8-7.0) K/uL Lymph # (Auto) 0.9 L (1.0-4.3) K/uL [place] # (Auto) 1.3 H (0.0-0.8) K/uL Eos # (Auto) 0.6 (0.0-0.7) K/uL Baso # (Auto) 0.1 (0.0-0.2) K/uL Neutrophils % (Manual) 63 (50-75) % Band Neutrophils % 16 H* (0-2) % Lymphocytes % (Manual) 6 L (20-40) % Monocytes % (Manual) 6 (0-10) % Eosinophils % (Manual) 8 H (0-4) % Metamyelocytes % 1 H (0-0) % Toxic Granulation Present Platelet Estimate Normal (NORMAL) Large Platelets Present Hypochromasia (manual) Slight Anisocytosis (manual) Moderate Sodium 134 (132-148) mmol/L Potassium 5.0 (3.6-5.2) mmol/L Chloride 91 L (98-107) mmol/L Carbon Dioxide 21 L (22-30) mmol/L Anion Gap 26 H (10-20) BUN 48 H (9-20) mg/dL Creatinine 7.0 H (0.8-1.5) mg/dL Est GFR ( Amer) 11 Est GFR (Non-Af Amer) 9 POC Glucose (mg/dL) 252 H (65-110) mg/dL Random Glucose 234 H (75-110) mg/dL Calcium 7.0 L (8.6-10.4) mg/dl Phosphorus 7.4 H (2.5-4.5) mg/dL Magnesium 1.8 (1.6-2.3) mg/dL Total Bilirubin 0.8 (0.2-1.3) mg/dL AST 33 (17-59) U/L ALT 24 (21-72) U/L Alkaline Phosphatase 136 H D (38-126) U/L Total Protein 6.2 L (6.3-8.3) g/dL Albumin 2.8 L (3.5-5.0) g/dL Globulin 3.4 (2.2-3.9) gm/dL Albumin/Globulin Ratio 0.8 L (1.0-2.1) Procalcitonin (0.19-0.49) NG/ML C. difficile Ag & Toxin (NEGATIVE) 05/17/17 05/17/17 05/17/17 Range/Units 21:15 15:32 11:02 WBC (4.8-10.8) K/uL RBC (4.40-5.90) Mil/uL Hgb (12.0-18.0) g/dL Hct (35.0-51.0) % MCV (80.0-94.0) fL MCH (27.0-31.0) pg MCHC (33.0-37.0) g/dL RDW (11.5-14.5) % Plt Count (130-400) K/uL MPV (7.2-11.7) fL Neut % (Auto) (50.0-75.0) % Lymph % (Auto) (20.0-40.0) % [place] % (Auto) (0.0-10.0) % Eos % (Auto) (0.0-4.0) % Baso % (Auto) (0.0-2.0) % Neut # (Auto) (1.8-7.0) K/uL Lymph # (Auto) (1.0-4.3) K/uL [place] # (Auto) (0.0-0.8) K/uL Eos # (Auto) (0.0-0.7) K/uL Baso # (Auto) (0.0-0.2) K/uL Neutrophils % (Manual) (50-75) % Band Neutrophils % (0-2) % Lymphocytes % (Manual) (20-40) % Monocytes % (Manual) (0-10) % Eosinophils % (Manual) (0-4) % Metamyelocytes % (0-0) % Toxic Granulation Platelet Estimate (NORMAL) Large Platelets Hypochromasia (manual) Anisocytosis (manual) Sodium (132-148) mmol/L Potassium (3.6-5.2) mmol/L Chloride (98-107) mmol/L Carbon Dioxide (22-30) mmol/L Anion Gap (10-20) BUN (9-20) mg/dL Creatinine (0.8-1.5) mg/dL Est GFR ( Amer) Est GFR (Non-Af Amer) POC Glucose (mg/dL) 179 H 165 H 165 H (65-110) mg/dL Random Glucose (75-110) mg/dL Calcium (8.6-10.4) mg/dl Phosphorus (2.5-4.5) mg/dL Magnesium (1.6-2.3) mg/dL Total Bilirubin (0.2-1.3) mg/dL AST (17-59) U/L ALT (21-72) U/L Alkaline Phosphatase (38-126) U/L Total Protein (6.3-8.3) g/dL Albumin (3.5-5.0) g/dL Globulin (2.2-3.9) gm/dL Albumin/Globulin Ratio (1.0-2.1) Procalcitonin (0.19-0.49) NG/ML C. difficile Ag & Toxin (NEGATIVE) 05/17/17 05/15/17 Range/Units 06:21 11:40 WBC (4.8-10.8) K/uL RBC (4.40-5.90) Mil/uL Hgb (12.0-18.0) g/dL Hct (35.0-51.0) % MCV (80.0-94.0) fL MCH (27.0-31.0) pg MCHC (33.0-37.0) g/dL RDW (11.5-14.5) % Plt Count (130-400) K/uL MPV (7.2-11.7) fL Neut % (Auto) (50.0-75.0) % Lymph % (Auto) (20.0-40.0) % [place] % (Auto) (0.0-10.0) % Eos % (Auto) (0.0-4.0) % Baso % (Auto) (0.0-2.0) % Neut # (Auto) (1.8-7.0) K/uL Lymph # (Auto) (1.0-4.3) K/uL [place] # (Auto) (0.0-0.8) K/uL Eos # (Auto) (0.0-0.7) K/uL Baso # (Auto) (0.0-0.2) K/uL Neutrophils % (Manual) (50-75) % Band Neutrophils % (0-2) % Lymphocytes % (Manual) (20-40) % Monocytes % (Manual) (0-10) % Eosinophils % (Manual) (0-4) % Metamyelocytes % (0-0) % Toxic Granulation Platelet Estimate (NORMAL) Large Platelets Hypochromasia (manual) Anisocytosis (manual) Sodium (132-148) mmol/L Potassium (3.6-5.2) mmol/L Chloride (98-107) mmol/L Carbon Dioxide (22-30) mmol/L Anion Gap (10-20) BUN (9-20) mg/dL Creatinine (0.8-1.5) mg/dL Est GFR ( Amer) Est GFR (Non-Af Amer) POC Glucose (mg/dL) (65-110) mg/dL Random Glucose (75-110) mg/dL Calcium (8.6-10.4) mg/dl Phosphorus (2.5-4.5) mg/dL Magnesium (1.6-2.3) mg/dL Total Bilirubin (0.2-1.3) mg/dL AST (17-59) U/L ALT (21-72) U/L Alkaline Phosphatase (38-126) U/L Total Protein (6.3-8.3) g/dL Albumin (3.5-5.0) g/dL Globulin (2.2-3.9) gm/dL Albumin/Globulin Ratio (1.0-2.1) Procalcitonin 28.09 H (0.19-0.49) NG/ML C. difficile Ag & Toxin Negative (NEGATIVE) Laboratory Results - last 24 hr 05/15/17 05/17/17 05/17/17 11:40 06:21 11:02 WBC RBC Hgb Hct MCV MCH MCHC RDW Plt Count MPV Neut % (Auto) Lymph % (Auto) [place] % (Auto) Eos % (Auto) Baso % (Auto) Neut # (Auto) Lymph # (Auto) [place] # (Auto) Eos # (Auto) Baso # (Auto) Neutrophils % (Manual) Band Neutrophils % Lymphocytes % (Manual) Monocytes % (Manual) Eosinophils % (Manual) Metamyelocytes % Toxic Granulation Platelet Estimate Large Platelets Hypochromasia (manual) Anisocytosis (manual) Sodium Potassium Chloride Carbon Dioxide Anion Gap BUN Creatinine Est GFR ( Amer) Est GFR (Non-Af Amer) POC Glucose (mg/dL) 165 H Random Glucose Calcium Phosphorus Magnesium Total Bilirubin AST ALT Alkaline Phosphatase Total Protein Albumin Globulin Albumin/Globulin Ratio Procalcitonin 28.09 H C. difficile Ag & Toxin Negative 05/17/17 05/17/17 05/18/17 15:32 21:15 06:01 WBC 12.7 H RBC 3.06 L Hgb 8.5 L Hct 26.4 L MCV 86.3 MCH 27.9 MCHC 32.4 L RDW 18.3 H Plt Count 158 MPV 10.4 Neut % (Auto) 76.6 H Lymph % (Auto) 7.2 L [place] % (Auto) 10.6 H Eos % (Auto) 5.0 H Baso % (Auto) 0.6 Neut # (Auto) 9.8 H Lymph # (Auto) 0.9 L [place] # (Auto) 1.3 H Eos # (Auto) 0.6 Baso # (Auto) 0.1 Neutrophils % (Manual) 63 Band Neutrophils % 16 H* Lymphocytes % (Manual) 6 L Monocytes % (Manual) 6 Eosinophils % (Manual) 8 H Metamyelocytes % 1 H Toxic Granulation Present Platelet Estimate Normal Large Platelets Present Hypochromasia (manual) Slight Anisocytosis (manual) Moderate Sodium Potassium Chloride Carbon Dioxide Anion Gap BUN Creatinine Est GFR ( Amer) Est GFR (Non-Af Amer) POC Glucose (mg/dL) 165 H 179 H Random Glucose Calcium Phosphorus Magnesium Total Bilirubin AST ALT Alkaline Phosphatase Total Protein Albumin Globulin Albumin/Globulin Ratio Procalcitonin C. difficile Ag & Toxin 05/18/17 05/18/17 06:02 07:34 WBC RBC Hgb Hct MCV MCH MCHC RDW Plt Count MPV Neut % (Auto) Lymph % (Auto) [place] % (Auto) Eos % (Auto) Baso % (Auto) Neut # (Auto) Lymph # (Auto) [place] # (Auto) Eos # (Auto) Baso # (Auto) Neutrophils % (Manual) Band Neutrophils % Lymphocytes % (Manual) Monocytes % (Manual) Eosinophils % (Manual) Metamyelocytes % Toxic Granulation Platelet Estimate Large Platelets Hypochromasia (manual) Anisocytosis (manual) Sodium 134 Potassium 5.0 Chloride 91 L Carbon Dioxide 21 L Anion Gap 26 H BUN 48 H Creatinine 7.0 H Est GFR ( Amer) 11 Est GFR (Non-Af Amer) 9 POC Glucose (mg/dL) 252 H Random Glucose 234 H Calcium 7.0 L Phosphorus 7.4 H Magnesium 1.8 Total Bilirubin 0.8 AST 33 ALT 24 Alkaline Phosphatase 136 H D Total Protein 6.2 L Albumin 2.8 L Globulin 3.4 Albumin/Globulin Ratio 0.8 L Procalcitonin C. difficile Ag & Toxin Fingerstick Blood Sugar Results: 252 Critical Care Progress Note - Nutrition Nutrition: Nutrition Category Date Time Status Renal Diet [DIET] Diets 05/16/17 Breakfast Active Assessment/Plan - Assessment and Plan (Free Text) Assessment: Patient is a 36 year old male with past medical history of ESRD on HD (MWF), Diabetes Mellitus, Gastroparesis, multiple hospital admissions presented with abdominal pain with nausea and vomiting. Sepsis 2/2 bacteremia -Stable, afebrile -Code sepsis: Patient with MRSA bacteremia, source unclear at this time -Antibiotics: Vancomycin 1gm MWF after dialysis, Diflucan 200mg IV daily -Leukocytosis 12.7 today, Bandemia 16 -Fecal leukocytes, stool culture, c diff negative -Echo within normal limits -DINO negative for endocarditis -F/U repeat blood cultures -ID on consult, help appreciated -Contact isolation Diabetes Mellitus/Gastroparesis/Gastritis/Hx of non-compliance -Insulin sliding scale ACHS, accuchecks ACHS -Reglan and Zofran prn nausea -Protonix 40mg IVP daily -Social work referral placed ESRD on HD -Hemodialysis MWF -Nephro on consult, help appreciated Hypertension -Off Cardene drip -Continue Norvasc 10mg PO daily -Clonidine 0.3mg PO TID -Hydralazine 50mg PO TID Imaging: -CXR showed pulmonary venous congestion -CT abd/pelvis showed mild atelectasis both posterior lower lung zones. Scattered nodular opacities throughout upper and lower lobes and well as lingular and middle lobe regions possible representing a multifocal early pneumonia. Hiatal hernia. Cardiomegaly. Minor wall thickening of a few loops of proximal small bowel. Wall thickening of the descending colon. Bladder wall thickening. (see full report) Will continue to monitor in the ICU Plan discussed with Dr Blackman <Raymond Blackman - Last Filed: 05/18/17 16:11> CCU Objective - Vital Signs / Intake & Output Vital Signs (Last 4 hours): Vital Signs Temp Pulse Pulse Resp BP BP Pulse Ox 05/18/17 14:00 82 11 L 05/18/17 13:54 84 16 157/73 H 05/18/17 13:00 93 H 21 05/18/17 12:54 89 15 174/78 H 05/18/17 12:48 93 H 17 187/79 H 95 05/18/17 12:33 97.5 F L 84 85 19 182/85 H 182/85 H 97 05/18/17 12:18 88 16 198/84 H 97 05/18/17 12:03 84 11 L 191/79 H 191/79 H 96 05/18/17 12:00 82 11 L 96 Intake and Output (Last 8hrs): Intake & Output 05/18/17 05/18/17 05/18/17 06:59 14:59 22:59 Intake Total 590 840 Output Total 0 0 Balance 590 840 Weight 142 lb Intake: Oral 590 840 Output: Urine 0 0 Urine, Voided 0 0 Emesis 0 Other: # Bowel Movements 0 - Medications Active Medications: Active Medications Generic Name Dose Route Start Last Admin Trade Name Freq PRN Reason Stop Dose Admin Acetaminophen 650 mg 05/15/17 14:36 05/17/17 05:25 Tylenol 325mg Tab PO 650 mg Q6 PRN Administration Fever >100.4 F Amlodipine Besylate 10 mg 05/15/17 10:00 05/18/17 12:35 Norvasc PO 10 mg DAILY GADIEL Administration Calcium Acetate 1,334 mg 05/17/17 10:38 05/18/17 12:37 Phoslo PO 1,334 mg TIDCC [facility] Administration Clonidine HCl 0.3 mg 05/15/17 10:00 05/18/17 14:43 Catapres PO 0.3 mg TID [facility] Administration Epoetin Uomar 8,000 unit 05/16/17 11:45 05/18/17 09:29 Procrit IV 8,000 unit MWF [facility] Administration Heparin Sodium (Porcine) 5,000 units 05/15/17 10:00 05/18/17 09:17 Heparin SC 5,000 units BID G[facility] Administration Hydralazine HCl 50 mg 05/15/17 10:00 05/18/17 14:44 Apresoline PO 50 mg TID [facility] Administration Hydromorphone HCl 1 mg 05/14/17 19:48 05/18/17 10:47 Dilaudid IVP 1 mg Q4H PRN Administration pain Fluconazole 100 mls @ 100 mls/hr 05/15/17 11:00 05/18/17 12:38 Diflucan Iv 200 Mg/100 Ml Ns IVPB 100 mls/hr DAILY [facility] Administration Protocol Vancomycin/Sodium Chloride 1 gm in 200 mls @ 166.7 mls/hr 05/18/17 13:00 06/01 12:39 Vancomycin 1 Gm/Ns 200 Ml IVPB 05/23/17 13:01 Not Given [facility] Protocol Insulin Human Regular 0 unit 05/15/17 07:30 05/18/17 12:37 Novolin R SC 1 unit ACHS [facility] Administration Protocol Metoclopramide HCl 10 mg 05/15/17 07:30 05/18/17 12:37 Reglan IVP 10 mg ACHS [facility] Administration Ondansetron HCl 4 mg 05/14/17 19:48 05/15/17 06:58 Zofran Inj IVP 4 mg Q6 PRN Administration nausea and vomiting Pantoprazole Sodium 40 mg 05/15/17 10:00 05/18/17 09:17 Protonix Inj IVP 40 mg DAILY [facility] Administration Vitamin B Complex/Vit C/Folic Acid 1 tab 05/18/17 08:00 05/18/17 08:18 Nephro-Yomi PO 1 tab 0800 GADIEL Administration - Patient Studies Lab Studies: Microbiology Studies 05/15/17 11:40 Stool Culture - Final Stool NO SALMONELLA, SHIGELLA OR CAMPYLOBACTER ISOLATED. Lab Studies 05/18/17 05/18/17 05/18/17 Range/Units 11:25 07:34 06:02 WBC (4.8-10.8) K/uL RBC (4.40-5.90) Mil/uL Hgb (12.0-18.0) g/dL Hct (35.0-51.0) % MCV (80.0-94.0) fL MCH (27.0-31.0) pg MCHC (33.0-37.0) g/dL RDW (11.5-14.5) % Plt Count (130-400) K/uL MPV (7.2-11.7) fL Neut % (Auto) (50.0-75.0) % Lymph % (Auto) (20.0-40.0) % [place] % (Auto) (0.0-10.0) % Eos % (Auto) (0.0-4.0) % Baso % (Auto) (0.0-2.0) % Neut # (Auto) (1.8-7.0) K/uL Lymph # (Auto) (1.0-4.3) K/uL [place] # (Auto) (0.0-0.8) K/uL Eos # (Auto) (0.0-0.7) K/uL Baso # (Auto) (0.0-0.2) K/uL Neutrophils % (Manual) (50-75) % Band Neutrophils % (0-2) % Lymphocytes % (Manual) (20-40) % Monocytes % (Manual) (0-10) % Eosinophils % (Manual) (0-4) % Metamyelocytes % (0-0) % Toxic Granulation Platelet Estimate (NORMAL) Large Platelets Hypochromasia (manual) Anisocytosis (manual) Sodium 134 (132-148) mmol/L Potassium 5.0 (3.6-5.2) mmol/L Chloride 91 L (98-107) mmol/L Carbon Dioxide 21 L (22-30) mmol/L Anion Gap 26 H (10-20) BUN 48 H (9-20) mg/dL Creatinine 7.0 H (0.8-1.5) mg/dL Est GFR ( Amer) 11 Est GFR (Non-Af Amer) 9 POC Glucose (mg/dL) 181 H 252 H (65-110) mg/dL Random Glucose 234 H (75-110) mg/dL Calcium 7.0 L (8.6-10.4) mg/dl Phosphorus 7.4 H (2.5-4.5) mg/dL Magnesium 1.8 (1.6-2.3) mg/dL Total Bilirubin 0.8 (0.2-1.3) mg/dL AST 33 (17-59) U/L ALT 24 (21-72) U/L Alkaline Phosphatase 136 H D (38-126) U/L Total Protein 6.2 L (6.3-8.3) g/dL Albumin 2.8 L (3.5-5.0) g/dL Globulin 3.4 (2.2-3.9) gm/dL Albumin/Globulin Ratio 0.8 L (1.0-2.1) 05/18/17 05/17/17 Range/Units 06:01 21:15 WBC 12.7 H (4.8-10.8) K/uL RBC 3.06 L (4.40-5.90) Mil/uL Hgb 8.5 L (12.0-18.0) g/dL Hct 26.4 L (35.0-51.0) % MCV 86.3 (80.0-94.0) fL MCH 27.9 (27.0-31.0) pg MCHC 32.4 L (33.0-37.0) g/dL RDW 18.3 H (11.5-14.5) % Plt Count 158 (130-400) K/uL MPV 10.4 (7.2-11.7) fL Neut % (Auto) 76.6 H (50.0-75.0) % Lymph % (Auto) 7.2 L (20.0-40.0) % [place] % (Auto) 10.6 H (0.0-10.0) % Eos % (Auto) 5.0 H (0.0-4.0) % Baso % (Auto) 0.6 (0.0-2.0) % Neut # (Auto) 9.8 H (1.8-7.0) K/uL Lymph # (Auto) 0.9 L (1.0-4.3) K/uL [place] # (Auto) 1.3 H (0.0-0.8) K/uL Eos # (Auto) 0.6 (0.0-0.7) K/uL Baso # (Auto) 0.1 (0.0-0.2) K/uL Neutrophils % (Manual) 63 (50-75) % Band Neutrophils % 16 H* (0-2) % Lymphocytes % (Manual) 6 L (20-40) % Monocytes % (Manual) 6 (0-10) % Eosinophils % (Manual) 8 H (0-4) % Metamyelocytes % 1 H (0-0) % Toxic Granulation Present Platelet Estimate Normal (NORMAL) Large Platelets Present Hypochromasia (manual) Slight Anisocytosis (manual) Moderate Sodium (132-148) mmol/L Potassium (3.6-5.2) mmol/L Chloride (98-107) mmol/L Carbon Dioxide (22-30) mmol/L Anion Gap (10-20) BUN (9-20) mg/dL Creatinine (0.8-1.5) mg/dL Est GFR ( Amer) Est GFR (Non-Af Amer) POC Glucose (mg/dL) 179 H (65-110) mg/dL Random Glucose (75-110) mg/dL Calcium (8.6-10.4) mg/dl Phosphorus (2.5-4.5) mg/dL Magnesium (1.6-2.3) mg/dL Total Bilirubin (0.2-1.3) mg/dL AST (17-59) U/L ALT (21-72) U/L Alkaline Phosphatase (38-126) U/L Total Protein (6.3-8.3) g/dL Albumin (3.5-5.0) g/dL Globulin (2.2-3.9) gm/dL Albumin/Globulin Ratio (1.0-2.1) Laboratory Results - last 24 hr 05/17/17 05/18/17 05/18/17 21:15 06:01 06:02 WBC 12.7 H RBC 3.06 L Hgb 8.5 L Hct 26.4 L MCV 86.3 MCH 27.9 MCHC 32.4 L RDW 18.3 H Plt Count 158 MPV 10.4 Neut % (Auto) 76.6 H Lymph % (Auto) 7.2 L [place] % (Auto) 10.6 H Eos % (Auto) 5.0 H Baso % (Auto) 0.6 Neut # (Auto) 9.8 H Lymph # (Auto) 0.9 L [place] # (Auto) 1.3 H Eos # (Auto) 0.6 Baso # (Auto) 0.1 Neutrophils % (Manual) 63 Band Neutrophils % 16 H* Lymphocytes % (Manual) 6 L Monocytes % (Manual) 6 Eosinophils % (Manual) 8 H Metamyelocytes % 1 H Toxic Granulation Present Platelet Estimate Normal Large Platelets Present Hypochromasia (manual) Slight Anisocytosis (manual) Moderate Sodium 134 Potassium 5.0 Chloride 91 L Carbon Dioxide 21 L Anion Gap 26 H BUN 48 H Creatinine 7.0 H Est GFR ( Amer) 11 Est GFR (Non-Af Amer) 9 POC Glucose (mg/dL) 179 H Random Glucose 234 H Calcium 7.0 L Phosphorus 7.4 H Magnesium 1.8 Total Bilirubin 0.8 AST 33 ALT 24 Alkaline Phosphatase 136 H D Total Protein 6.2 L Albumin 2.8 L Globulin 3.4 Albumin/Globulin Ratio 0.8 L 05/18/17 05/18/17 07:34 11:25 WBC RBC Hgb Hct MCV MCH MCHC RDW Plt Count MPV Neut % (Auto) Lymph % (Auto) [place] % (Auto) Eos % (Auto) Baso % (Auto) Neut # (Auto) Lymph # (Auto) [place] # (Auto) Eos # (Auto) Baso # (Auto) Neutrophils % (Manual) Band Neutrophils % Lymphocytes % (Manual) Monocytes % (Manual) Eosinophils % (Manual) Metamyelocytes % Toxic Granulation Platelet Estimate Large Platelets Hypochromasia (manual) Anisocytosis (manual) Sodium Potassium Chloride Carbon Dioxide Anion Gap BUN Creatinine Est GFR ( Amer) Est GFR (Non-Af Amer) POC Glucose (mg/dL) 252 H 181 H Random Glucose Calcium Phosphorus Magnesium Total Bilirubin AST ALT Alkaline Phosphatase Total Protein Albumin Globulin Albumin/Globulin Ratio Critical Care Progress Note - Nutrition Nutrition: Nutrition Category Date Time Status Renal Diet [DIET] Diets 05/16/17 Breakfast Active Assessment/Plan (1) Leukocytosis Current Visit: No Status: Acute (2) Intractable vomiting with nausea Current Visit: Yes Status: Acute (3) CKD (chronic kidney disease) requiring chronic dialysis Current Visit: Yes Status: Acute Attending/Attestation - Attestation I have personally seen and examined this patient.: Yes I have fully participated in the care of the patient.: Yes I have reviewed all pertinent clinical information: Yes Notes (Text): 05/18/17 15:57 Patient seen and examined in the intensive care unit. Patient being treated for MRSA bacteremia Continue hemodialysis Continue IV antibiotics Stable for transfer to floor DINO showed no endocarditis
--- NOTE | 2017-05-18 11:05 | CP.PCM.PN ---
Subjective - Date & Time of Evaluation Date of Evaluation: 05/18/17 Time of Evaluation: 09:15 - Subjective Subjective: Dialysis note Patient seen on hemodialysis now. Patient is tolerating hemodialysis Discussed with the dialysis nurse Na bath 2meq K bath 2meq Bicarb. 34 UF about 2000 as tolerated feeling better Objective - Vital Signs/Intake and Output Vital Signs (last 24 hours): Temp Pulse Resp BP Pulse Ox 98.1 F 83 12 189/87 H 96 05/18/17 10:00 05/18/17 10:18 05/18/17 10:18 05/18/17 10:18 05/18/17 10:18 Intake and Output: 05/18/17 05/18/17 06:59 18:59 Intake Total 990 260 Output Total 0 0 Balance 990 260 - Medications Medications: Current Medications Acetaminophen (Tylenol 325mg Tab) 650 mg PO Q6 PRN PRN Reason: Fever >100.4 F Last Admin: 05/17/17 05:25 Dose: 650 mg Amlodipine Besylate (Norvasc) 10 mg PO DAILY [facility] Last Admin: 05/17/17 10:02 Dose: 10 mg Calcium Acetate (Phoslo) 1,334 mg PO TIDCC [facility] Last Admin: 05/18/17 08:18 Dose: 1,334 mg Clonidine HCl (Catapres) 0.3 mg PO TID [facility] Last Admin: 05/18/17 09:30 Dose: Not Given Epoetin Oumar (Procrit) 8,000 unit IV MWF [facility] Last Admin: 05/18/17 09:29 Dose: 8,000 unit Heparin Sodium (Porcine) (Heparin) 5,000 units SC BID [facility] Last Admin: 05/18/17 09:17 Dose: 5,000 units Hydralazine HCl (Apresoline) 50 mg PO TID [facility] Last Admin: 05/16/17 09:26 Dose: Not Given Hydromorphone HCl (Dilaudid) 1 mg IVP Q4H PRN PRN Reason: pain Last Admin: 05/18/17 10:47 Dose: 1 mg Fluconazole (Diflucan Iv 200 Mg/100 Ml Ns) 100 mls @ 100 mls/hr IVPB DAILY [facility] PRN Reason: Protocol Last Admin: 05/17/17 10:02 Dose: 100 mls/hr Insulin Human Regular (Novolin R) 0 unit SC ACHS [facility] PRN Reason: Protocol Last Admin: 05/18/17 08:19 Dose: 3 unit Metoclopramide HCl (Reglan) 10 mg IVP ACHS [facility] Last Admin: 05/18/17 08:00 Dose: 10 mg Ondansetron HCl (Zofran Inj) 4 mg IVP Q6 PRN PRN Reason: nausea and vomiting Last Admin: 05/15/17 06:58 Dose: 4 mg Pantoprazole Sodium (Protonix Inj) 40 mg IVP DAILY [facility] Last Admin: 05/18/17 09:17 Dose: 40 mg Vitamin B Complex/Vit C/Folic Acid (Nephro-Yomi) 1 tab PO 0800 [facility] Last Admin: 05/18/17 08:18 Dose: 1 tab - Labs Labs: 05/18/17 06:01 05/18/17 06:02 PT 12.5 SECONDS (9.7-12.2) H 05/16/17 09:51 INR 1.1 05/16/17 09:51 APTT 28 SECONDS (21-34) D 05/16/17 09:51 - Constitutional Appears: No Acute Distress - ENT Exam ENT Exam: Mucous Membranes Moist - Neck Exam Neck Exam: absent: Lymphadenopathy - Cardiovascular Exam Cardiovascular Exam: absent: Gallop, JVD, Rubs - GI/Abdominal Exam GI & Abdominal Exam: Soft, Normal Bowel Sounds - Extremities Exam Extremities Exam: absent: Calf Tenderness - Back Exam Back Exam: absent: CVA tenderness (L), CVA tenderness (R) - Neurological Exam Neurological Exam: Alert - Psychiatric Exam Psychiatric exam: Normal Affect - Skin Skin Exam: absent: Cyanosis Assessment and Plan (1) CKD (chronic kidney disease) requiring chronic dialysis Assessment & Plan: MRSA sepsis with lactic acidosis ? source recurrent nausea/vomiting, Cyclic Emesis Syndrome, marijuana abuse, gastroparesis uncontrolled DM with hypoglycemia and hyperglycemia Diabetic chronic Kidney Disease (E11.22) Hypertensive Chronic Kidney Disease (I12.0) End stage renal disease (N18.6) dependence on hemodialysis (Z99.2) (MWF) via AVF Anemia (D64.9), Hyperphosphatemia (E83.39), Secondary Hyperparathyroidism (E21.1 ), HTN (I12.0) Plan: Seen on hemodialysis now and discuss with the dialysis nurse data was reviewed lab reviewed. schedule as ordered. Continue with Nephrovite 1 tab/day. last Hb 9.3 hence ordered MOHINI with HD Increased phos binders, last phos 6.7 BP control with meds as ordered. no ACEI/ARB due to hyperkalemia Glycemic control, Dialysis consistent diet Further work up/management as per primary team Dose meds/antibiotics for ESRD status. Avoid fleets enema/magnesium based laxatives. pt to abstain from marijuana DINO to r/o endocarditis, being planned Status: Acute
[2017-05-18] MEDS: Fluconazole IV 200mg/100 ml NS 100 ML IVPB SCH (12:38)
[2017-05-18] MEDS ORDERED: Vancomycin 1 gm/NS 200 ml 1 GM/200 ML BAG IVPB SCH (13:00)
--- NOTE | 2017-05-18 17:41 | CP.PCM.PN ---
Subjective - Date & Time of Evaluation Date of Evaluation: 05/18/17 Time of Evaluation: 08:00 - Subjective Subjective: tmax down c/o abd pain consider GI eval/ imaging IV Vanco to cont duration unclear Objective - Vital Signs/Intake and Output Vital Signs (last 24 hours): Temp Pulse Resp BP Pulse Ox 97.5 F L 84 16 174/79 H 95 05/18/17 12:33 05/18/17 16:00 05/18/17 16:00 05/18/17 15:54 05/18/17 12:48 Intake and Output: 05/18/17 05/18/17 06:59 18:59 Intake Total 990 560 Output Total 0 120 Balance 990 440 - Medications Medications: Current Medications Acetaminophen (Tylenol 325mg Tab) 650 mg PO Q6 PRN PRN Reason: Fever >100.4 F Last Admin: 05/17/17 05:25 Dose: 650 mg Amlodipine Besylate (Norvasc) 10 mg PO DAILY [facility] Last Admin: 05/18/17 12:35 Dose: 10 mg Calcium Acetate (Phoslo) 1,334 mg PO TIDCC [facility] Last Admin: 05/18/17 17:21 Dose: 1,334 mg Clonidine HCl (Catapres) 0.3 mg PO TID [facility] Last Admin: 05/18/17 17:21 Dose: 0.3 mg Epoetin Oumar (Procrit) 8,000 unit IV MWF [facility] Last Admin: 05/18/17 09:29 Dose: 8,000 unit Heparin Sodium (Porcine) (Heparin) 5,000 units SC BID [facility] Last Admin: 05/18/17 17:22 Dose: 5,000 units Hydralazine HCl (Apresoline) 50 mg PO TID [facility] Last Admin: 05/18/17 17:21 Dose: 50 mg Hydromorphone HCl (Dilaudid) 1 mg IVP Q4H PRN PRN Reason: pain Last Admin: 05/18/17 16:00 Dose: 1 mg Fluconazole (Diflucan Iv 200 Mg/100 Ml Ns) 100 mls @ 100 mls/hr IVPB DAILY [facility] PRN Reason: Protocol Last Admin: 05/18/17 12:38 Dose: 100 mls/hr Vancomycin/Sodium Chloride (Vancomycin 1 Gm/Ns 200 Ml) 1 gm in 200 mls @ 166.7 mls/hr IVPB MWF [facility] PRN Reason: Protocol Stop: 05/23/17 13:01 Last Admin: 05/18/17 12:39 Dose: Not Given Insulin Human Regular (Novolin R) 0 unit SC ACHS [facility] PRN Reason: Protocol Last Admin: 05/18/17 17:21 Dose: 1 unit Metoclopramide HCl (Reglan) 10 mg IVP ACHS [facility] Last Admin: 05/18/17 17:22 Dose: 10 mg Ondansetron HCl (Zofran Inj) 4 mg IVP Q6 PRN PRN Reason: nausea and vomiting Last Admin: 05/15/17 06:58 Dose: 4 mg Pantoprazole Sodium (Protonix Inj) 40 mg IVP DAILY [facility] Last Admin: 05/18/17 09:17 Dose: 40 mg Vitamin B Complex/Vit C/Folic Acid (Nephro-Yomi) 1 tab PO 0800 [facility] Last Admin: 05/18/17 08:18 Dose: 1 tab - Labs Labs: 05/18/17 06:01 05/18/17 06:02 PT 12.5 SECONDS (9.7-12.2) H 05/16/17 09:51 INR 1.1 05/16/17 09:51 APTT 28 SECONDS (21-34) D 05/16/17 09:51 - Constitutional Appears: Non-toxic, Chronically Ill - Head Exam Head Exam: NORMOCEPHALIC - ENT Exam ENT Exam: Mucous Membranes Dry - Neck Exam Neck Exam: absent: Lymphadenopathy - Respiratory Exam Respiratory Exam: Decreased Breath Sounds - Cardiovascular Exam Cardiovascular Exam: REGULAR RHYTHM - GI/Abdominal Exam GI & Abdominal Exam: Distended, Soft, Tenderness - Rectal Exam Rectal Exam: Deferred Assessment and Plan (1) Sepsis Status: Acute (2) Sepsis Status: Acute (3) CKD (chronic kidney disease) requiring chronic dialysis Status: Acute (4) CRF (chronic renal failure) Status: Acute (5) Abdominal discomfort Status: Acute (6) Abdominal pain Status: Acute
[2017-05-19] MEDS: HYDROmorphone 1 mg/ml ISec IVP PRN ×5 (01:06→17:49)
--- NOTE | 2017-05-19 07:01 | PN ---
DATE: 05/18/2017 SUBJECTIVE: The patient underwent hemodialysis today. At the end of that, supportive care. Lucero Chadwick MD
[2017-05-19 08:05] LABS: BASO # 0.1 K/uL (0.0-0.2); BASO % 0.6 % (0.0-2.0); EOS # 0.3 K/uL (0.0-0.7); EOS % 2.8 % (0.0-4.0); HEMOGLOBIN 9.1 g/dL (12.0-18.0); LYMPH # 1.2 K/uL (1.0-4.3); LYMPH % 11.4 % (20.0-40.0); MEAN CELL VOLUME 86.3 fL (80.0-94.0); MEAN CORPUSCULAR HEMOGLOBIN 28.3 pg (27.0-31.0); MEAN CORPUSCULAR HGB CONC 32.8 g/dL (33.0-37.0); MEAN PLATELET VOLUME 10.6 fL (7.2-11.7); MONO # 1.3 K/uL (0.0-0.8); MONO % 12.5 % (0.0-10.0); NEUT # 7.7 K/uL (1.8-7.0); NEUT % 72.7 % (50.0-75.0); NRBC % 0.1 % (0.0-2.0); RBC 3.21 Mil/uL (4.40-5.90); RED CELL DISTRIBUTION WIDTH 18.3 % (11.5-14.5); WHITE BLOOD COUNT 10.6 K/uL (4.8-10.8)
[2017-05-19 08:24] LABS: ALB/GLOB RATIO 0.9 (1.0-2.1); ALBUMIN 3.2 g/dL (3.5-5.0); CALCIUM 7.9 mg/dl (8.6-10.4)
[2017-05-19] MEDS: Multivitamin Vitamin B Complex (Nephro-Vite) Tab PO SCH (08:36)
[2017-05-19] MEDS: (Novolin R) Insulin Human Regular 100 units/ml vial SC SCH ×4 (08:36→21:53)
[2017-05-19] MEDS: Fluconazole IV 200mg/100 ml NS 100 ML IVPB SCH (10:38)
[2017-05-19 10:43] LABS: CK-MB 3.14 ng/mL (0.0-3.38); TROPONIN I 0.016 ng/mL (0.00-0.120)
--- NOTE | 2017-05-19 13:12 | CP.PCM.PN ---
Subjective - Date & Time of Evaluation Date of Evaluation: 05/19/17 Time of Evaluation: 13:11 - Subjective Subjective: Nephrology Consultation Note Assessment: stable MRSA sepsis with lactic acidosis ? source recurrent nausea/vomiting, Cyclic Emesis Syndrome, marijuana abuse, gastroparesis uncontrolled DM with hypoglycemia and hyperglycemia Diabetic chronic Kidney Disease (E11.22) Hypertensive Chronic Kidney Disease (I12.0) End stage renal disease (N18.6) dependence on hemodialysis (Z99.2) (MWF) via AVF Anemia (D64.9), Hyperphosphatemia (E83.39), Secondary Hyperparathyroidism (E21.1 ), HTN (I12.0) Plan: dialysis tomorrow as per MWF schedule as ordered. Continue with Nephrovite 1 tab /day. last Hb 9.1 hence ordered MOHINI with HD Increased phos binders, last phos 3.8 BP control with meds as ordered. no ACEI/ARB due to hyperkalemia Glycemic control, Dialysis consistent diet Further work up/management as per primary team Dose meds/antibiotics for ESRD status. Avoid fleets enema/magnesium based laxatives. pt to abstain from marijuana DINO neg for endocarditis, consider doppler/usg of AV access Thanks for allowing me to participate in care of your patient. Will follow patient with you. Please call if any Qs. Dr Brenton Larsen Office: [phone] HPI: Pt is a 36 y/o M with hx of ESRD on hemodialysis (MWF) via AVF, chronic anemia, hyperphosphatemia, secondary hyperparathyroidism, Diabetes Mellitus, hypertension, recurrent nausea/vomiting and multiple hospitalization for same, came back with sepsis and pain abdomen Denies chest pain, palpitation, leg swelling c/o pain upper abdomen ROS: Constitutional Symptoms: No Recent Weight Changes Cardiovascular: No chest pain. No palpitations. Pulmonary: No cough. Gastrointestinal: c/o abdominal pain. improved nausea. improved vomiting. Denies change in bowel habits. Denies Bleeding All other negative. Physical Examination: General Appearance: comfortable, in no acute respiratory distress, co- operative. walking around Vitals reviewed and noted as below Head; Atraumatic, normocephalic ENT: no ulcers no thrush. Tongue is midline. Oropharynx: no rash or ulcers. EYES: Pupils are equal, round and reactive to light accommodation. Eye muscles and extraocular movement intact. Sclera is anicteric. Neck; supple no lymphadenopathy, no thyromegaly or bruit Lungs: Normal respiratory rate/effort. Breath sounds bilateral equal and clear Heart: normal rate. s1s2 normal. No rub or gallop. Extremities: trace edema. No varicose veins Neurological: Patient is alert, awake and oriented to person, place and time. No focal deficit. Strength bilateral appropriate and equal Skin: Warm and dry. Normal turgor. No rash. Palpitation: Normal elasticity for age Abdomen: Abdomen is soft. Bowel sounds +. There is no epigastric abdominal tenderness, no guarding/rigidity or organomegaly Psych: limited insight and normal affect/mood MSK: no joint tenderness or swelling. Digits and nails normal, no deformity. : kidney or bladder not palpable. Access: AVF Labs/imaging reviewed. Past medical history, past surgical history, family history, social history, allergy reviewed and noted as below Family Hx: no hx of CKD. Non contributory sec HTN work up neg as renin/ioana, metanephrine and renal artery doppler Objective - Vital Signs/Intake and Output Vital Signs (last 24 hours): Temp Pulse Resp BP Pulse Ox 98.4 F 80 18 168/84 H 97 05/19/17 07:36 05/19/17 07:36 05/19/17 07:36 05/19/17 07:36 05/19/17 07:36 Intake and Output: 05/19/17 05/19/17 06:59 18:59 Output Total 0 Balance 0 - Medications Medications: Current Medications Acetaminophen (Tylenol 325mg Tab) 650 mg PO Q6 PRN PRN Reason: Fever >100.4 F Last Admin: 05/17/17 05:25 Dose: 650 mg Amlodipine Besylate (Norvasc) 10 mg PO DAILY [facility] Last Admin: 05/19/17 09:15 Dose: 10 mg Calcium Acetate (Phoslo) 1,334 mg PO TIDCC [facility] Last Admin: 05/19/17 12:31 Dose: 1,334 mg Clonidine HCl (Catapres) 0.3 mg PO TID [facility] Last Admin: 05/19/17 09:15 Dose: 0.3 mg Epoetin Oumar (Procrit) 8,000 unit IV MWF [facility] Last Admin: 05/18/17 09:29 Dose: 8,000 unit Heparin Sodium (Porcine) (Heparin) 5,000 units SC BID [facility] Last Admin: 05/19/17 09:14 Dose: Not Given Hydralazine HCl (Apresoline) 50 mg PO TID [facility] Last Admin: 05/19/17 09:14 Dose: 50 mg Hydromorphone HCl (Dilaudid) 1 mg IVP Q4H PRN PRN Reason: pain Last Admin: 05/19/17 09:15 Dose: 1 mg Fluconazole (Diflucan Iv 200 Mg/100 Ml Ns) 100 mls @ 100 mls/hr IVPB DAILY [facility] PRN Reason: Protocol Last Admin: 05/19/17 10:38 Dose: 100 mls/hr Vancomycin/Sodium Chloride (Vancomycin 1 Gm/Ns 200 Ml) 1 gm in 200 mls @ 166.7 mls/hr IVPB MWF [facility] PRN Reason: Protocol Stop: 05/23/17 13:01 Last Admin: 05/18/17 12:39 Dose: Not Given Insulin Human Regular (Novolin R) 0 unit SC [facility] PRN Reason: Protocol Last Admin: 05/19/17 12:29 Dose: 1 unit Metoclopramide HCl (Reglan) 10 mg IVP ACHS [facility] Last Admin: 05/19/17 12:29 Dose: 10 mg Ondansetron HCl (Zofran Inj) 4 mg IVP Q6 PRN PRN Reason: nausea and vomiting Last Admin: 05/15/17 06:58 Dose: 4 mg Pantoprazole Sodium (Protonix Inj) 40 mg IVP DAILY [facility] Last Admin: 05/19/17 09:14 Dose: 40 mg Vitamin B Complex/Vit C/Folic Acid (Nephro-Yomi) 1 tab PO 0800 [facility] Last Admin: 05/19/17 08:36 Dose: 1 tab - Labs Labs: 05/19/17 07:56 05/19/17 07:56 PT 12.5 SECONDS (9.7-12.2) H 05/16/17 09:51 INR 1.1 05/16/17 09:51 APTT 28 SECONDS (21-34) D 05/16/17 09:51
--- NOTE | 2017-05-19 14:31 | CP.PCM.PN ---
Subjective - Date & Time of Evaluation Date of Evaluation: 05/19/17 Time of Evaluation: 09:30 - Subjective Subjective: Medicine progress note for Dr. Chadwick's service Patient seen and examined. Patient states he is not feeling well. He has complaint of abdominal pain and chest pain. Pain in chest is pressure sensation he felt while walking from bathroom to bed. Patient more comfortable when laying in bed. Patient denies fever or chills currently. Objective - Vital Signs/Intake and Output Vital Signs (last 24 hours): Temp Pulse Resp BP Pulse Ox 98.4 F 80 18 168/84 H 97 05/19/17 07:36 05/19/17 07:36 05/19/17 07:36 05/19/17 07:36 05/19/17 07:36 Intake and Output: 05/19/17 05/19/17 06:59 18:59 Output Total 0 Balance 0 - Medications Medications: Current Medications Acetaminophen (Tylenol 325mg Tab) 650 mg PO Q6 PRN PRN Reason: Fever >100.4 F Last Admin: 05/17/17 05:25 Dose: 650 mg Amlodipine Besylate (Norvasc) 10 mg PO DAILY [facility] Last Admin: 05/19/17 09:15 Dose: 10 mg Calcium Acetate (Phoslo) 1,334 mg PO TIDCC [facility] Last Admin: 05/19/17 12:31 Dose: 1,334 mg Clonidine HCl (Catapres) 0.3 mg PO TID [facility] Last Admin: 05/19/17 13:15 Dose: 0.3 mg Epoetin Oumar (Procrit) 8,000 unit IV MWF [facility] Last Admin: 05/18/17 09:29 Dose: 8,000 unit Heparin Sodium (Porcine) (Heparin) 5,000 units SC BID [facility] Last Admin: 05/19/17 09:14 Dose: Not Given Hydralazine HCl (Apresoline) 50 mg PO TID [facility] Last Admin: 05/19/17 13:15 Dose: 50 mg Hydromorphone HCl (Dilaudid) 1 mg IVP Q4H PRN PRN Reason: pain Last Admin: 05/19/17 13:15 Dose: 1 mg Fluconazole (Diflucan Iv 200 Mg/100 Ml Ns) 100 mls @ 100 mls/hr IVPB DAILY [facility] PRN Reason: Protocol Last Admin: 05/19/17 10:38 Dose: 100 mls/hr Vancomycin/Sodium Chloride (Vancomycin 1 Gm/Ns 200 Ml) 1 gm in 200 mls @ 166.7 mls/hr IVPB MWF [facility] PRN Reason: Protocol Stop: 05/23/17 13:01 Last Admin: 05/18/17 12:39 Dose: Not Given Insulin Human Regular (Novolin R) 0 unit SC ACHS [facility] PRN Reason: Protocol Last Admin: 05/19/17 12:29 Dose: 1 unit Metoclopramide HCl (Reglan) 10 mg IVP ACHS [facility] Last Admin: 05/19/17 12:29 Dose: 10 mg Ondansetron HCl (Zofran Inj) 4 mg IVP Q6 PRN PRN Reason: nausea and vomiting Last Admin: 05/15/17 06:58 Dose: 4 mg Pantoprazole Sodium (Protonix Inj) 40 mg IVP DAILY [facility] Last Admin: 05/19/17 09:14 Dose: 40 mg Vitamin B Complex/Vit C/Folic Acid (Nephro-Yomi) 1 tab PO 0800 [facility] Last Admin: 05/19/17 08:36 Dose: 1 tab - Labs Labs: 05/19/17 07:56 05/19/17 07:56 PT 12.5 SECONDS (9.7-12.2) H 05/16/17 09:51 INR 1.1 05/16/17 09:51 APTT 28 SECONDS (21-34) D 05/16/17 09:51 - Constitutional Appears: No Acute Distress, Chronically Ill - Head Exam Head Exam: ATRAUMATIC, NORMOCEPHALIC - Eye Exam Eye Exam: EOMI - ENT Exam ENT Exam: Mucous Membranes Moist - Respiratory Exam Respiratory Exam: Clear to Ausculation Bilateral. absent: Chest Wall Tenderness - Cardiovascular Exam Cardiovascular Exam: +S1, +S2 - GI/Abdominal Exam GI & Abdominal Exam: Soft, Tenderness (epigastric), Normal Bowel Sounds - Extremities Exam Extremities Exam: absent: Calf Tenderness Additional comments: left arm AVF with palpable thrill - Neurological Exam Neurological Exam: Alert, Awake - Skin Skin Exam: Warm Assessment and Plan - Assessment and Plan (Free Text) Assessment: Sepsis 2/2 bacteremia -Stable, afebrile -Code sepsis: Patient with MRSA bacteremia, source unclear at this time -Antibiotics: Vancomycin 1gm MWF after dialysis, Diflucan 200mg IV daily -Leukocytosis 12.7 today, Bandemia 16 -Fecal leukocytes, stool culture, c diff negative -Echo within normal limits -DINO negative for endocarditis -CAILIN, Renee Pennington, on consult, help appreciated -Contact isolation repeat blood cultures 05/18/17 negative for 24 hours Diabetes Mellitus/Gastroparesis/Gastritis/Hx of non-compliance -Insulin sliding scale ACHS, accuchecks ACHS -hypoglycemia protocol -levemir 10u SC HS -Reglan and Zofran prn nausea -Protonix 40mg IVP daily -Social work referral placed ESRD on HD -Hemodialysis MWF -Nephrosalinda, Dr. Larsen, on consult, help appreciated -phoslo 1334 PO [facility]IDCC -procrit 8000 IV MWF w/ HD Hypertension -was on Cardene drip previously in ICU -Continue Norvasc 10mg PO daily -Clonidine 0.3mg PO TID -Hydralazine 50mg PO TID -avoid DANDRE/ ARB due to hyperkalemia Chest pain EKG showed no change from prior, SHIRLEY negative Prophylactic measure SCDs heparin 5000u SC BID protonix 40mg IVP daily All medical management as per Dr. Chadwick
[2017-05-19] MEDS ORDERED: Glucagon Recombinant 1 mg Inj IM PRN (14:34)
[2017-05-19] MEDS ORDERED: Dextrose 50% SYRINGE Inj (50 ml) IVP PRN (14:34)
[2017-05-19 15:56] VITALS: RESP 20; O2SAT 96
[2017-05-19 21:03] VITALS: BP 130/73; PULSE 76; TEMP 98.1
[2017-05-19] MEDS ORDERED: Insulin Detemir 100 units/ml Vial (Levemir) SC SCH (22:00)
--- NOTE | 2017-05-20 10:46 | CARD ---
APPROVED REPORT EKG Measurement Heart [id number] NJ [id number] <Conclusion> Normal sinus rhythm ST & T wave abnormality, consider lateral ischemia Abnormal ECG
--- NOTE | 2017-05-20 22:38 | CARD ---
APPROVED REPORT EKG Measurement Heart [id number] ID [id number] <Conclusion> Normal sinus rhythm Possible Left atrial enlargement Borderline ECG
== END 2017-05-19 22:00 | disposition left against medical advice (07) | DRG 871 ==
LOC: C.ER 15:47 → C.9E 17:55 → C.3T 18:24 → OBSVTOIN 23:45 → C.9I 23:45 → C.5S 05-19 04:21
PROVIDERS: ADMIT Internal Medicine Pulmonary Disease; ATTEND Internal Medicine Pulmonary Disease
PROC: 5A1D70Z Performance of Urinary Filtration, Intermittent, Less than 6 Hours Per Day (ICD-10-PCS; principal; 2017-05-16)
PROC: 5A1D70Z Performance of Urinary Filtration, Intermittent, Less than 6 Hours Per Day (ICD-10-PCS; 2017-05-18)
DX: A41.9 Sepsis, unspecified organism (principal); N18.6 End stage renal disease; E87.2 Acidosis; I13.2 Hypertensive heart and chronic kidney disease with heart failure and with stage 5 chronic kidney disease, or end stage renal disease; N25.81 Secondary hyperparathyroidism of renal origin; B95.62 Methicillin resistant Staphylococcus aureus infection as the cause of diseases classified elsewhere; D64.9 Anemia, unspecified; E87.5 Hyperkalemia; F12.10 Cannabis abuse, uncomplicated; K29.70 Gastritis, unspecified, without bleeding; K31.84 Gastroparesis; K44.9 Diaphragmatic hernia without obstruction or gangrene; F17.210 Nicotine dependence, cigarettes, uncomplicated; I50.9 Heart failure, unspecified; Z91.19 Patient's noncompliance with other medical treatment and regimen; Z99.2 Dependence on renal dialysis; E11.43 Type 2 diabetes mellitus with diabetic autonomic (poly)neuropathy; E11.65 Type 2 diabetes mellitus with hyperglycemia; Z79.4 Long term (current) use of insulin; E11.22 Type 2 diabetes mellitus with diabetic chronic kidney disease

== ENCOUNTER 2017-05-20 11:32 | Inpatient (IN) | payer MEDICARE, MEDICAID ==
[2017-05-20] MEDS ORDERED: Vancomycin 1 gm/NS 200 ml 1 GM/200 ML BAG IVPB STA (12:32)
[2017-05-20] MEDS ORDERED: HYDROmorphone 1 mg/ml ISec IVP STA (12:32)
[2017-05-20] MEDS ORDERED: Morphine 4 MG/ML VIAL ONE (13:22)
[2017-05-20 13:26] LABS: ALB/GLOB RATIO 0.9 (1.0-2.1); ALBUMIN 3.6 g/dL (3.5-5.0); CALCIUM 8.5 mg/dl (8.6-10.4)
[2017-05-20] MEDS ORDERED: Sodium Chloride 0.9% 1,000 ML IV ONE (13:33)
--- NOTE | 2017-05-20 13:52 | C.PDOC ---
History Of Present Illness 36 year old male, whose PMHx includes ESRD on HD, IDDM, HTN, presents to the ED after being sent from dialysis for complaints of chest and abdominal pain. Dialysis was not complete today. Patient describes that his symptoms have been "generalized to chest and abdomen" for 1 week. Patient also complains of a dry cough. At present time, pt appears crying. request pain medication. Pt denies fever, chills, shortness of breath, wheezing, palpitation, diaphoresis, nausea, vomiting, diarrhea, UTI sx. PMHx: ESRD on hemodialysis, chronic anemia, hyperphosphatemia, secondary hyperparathyroidism, Diabetes Mellitus, presents w/ n/v. he complains of abdominal pain and recurrent n/v. he states its very similar to his other hospitalizations. he denies any fever or chills. FYI: Prior records reviewed: Patient was seen in this ED on 05/12 and was admitted to [facility], CT (+) PNA, blood cx (+) MRSA. Patient reports he left AMA because of an "issue with the nurse." Time Seen by Provider: 05/20/17 12:12 Chief Complaint (Nursing): Flu-like Symptoms History Per: Patient History/Exam Limitations: no limitations Onset/Duration Of Symptoms: Other (1 week ) Current Symptoms Are (Timing): Still Present Associated Symptoms: Cough. denies: Fever, Chills, Sputum, Nausea, Vomiting, Diarrhea Additional History Per: Patient Past Medical History Reviewed: Historical Data, Nursing Documentation, Vital Signs Vital Signs: Last Vital Signs Temp 98.0 F 05/20/17 11:34 Pulse 81 05/20/17 13:33 Resp 16 05/20/17 13:33 BP 148/62 05/20/17 13:33 Pulse Ox 98 05/20/17 14:11 - Medical History PMH: Anemia, CHF, Diabetes (type I; ), Gastritis (gastroparesis), HTN, Hypercholesterolemia, Peripheral Edema, End Stage Renal Disease, Chronic Kidney Disease Denies: HIV, Kidney Stones Surgical History: No Surg Hx - [facility] Procedures (05/14/17) (11/12/16) BYPASS LEFT BRACHIAL ARTERY TO UPPER ARM VEIN, OPEN APPROACH (02/17/16) DILATION OF LEFT BASILIC VEIN, PERCUTANEOUS APPROACH (11/06/16) EXCISION OF ASCENDING COLON, ENDO, DIAGN (12/19/15) EXCISION OF DESCENDING COLON, ENDO, DIAGN (10/22/16) EXCISION OF DUODENUM, ENDO, DIAGN (03/25/16) EXCISION OF LARGE INTESTINE, ENDO, DIAGN (05/06/16) EXCISION OF MIDDLE ESOPHAGUS, ENDO, DIAGN (03/25/16) EXCISION OF STOMACH, ENDO, DIAGN (02/05/17) EXCISION OF TRANSVERSE COLON, ENDO, DIAGN (05/06/16) INSERTION OF INFUSION DEV INTO SUP VENA CAVA, PERC APPROACH (12/19/15) PERFORMANCE OF URINARY FILTRATION, MULTIPLE (10/28/16) PERFORMANCE OF URINARY FILTRATION, SINGLE (11/06/16) REPOSITION LEFT BASILIC VEIN, OPEN APPROACH (05/25/16) ULTRASONOGRAPHY OF SUPERIOR VENA CAVA, GUIDANCE (12/19/15) Family History: States: Unknown Family Hx, Diabetes, Hypertension - Social History Hx Tobacco Use: Yes (some days) Hx Alcohol Use: No Hx Substance Use: Yes - Immunization History Hx Tetanus Toxoid Vaccination: Yes Hx Influenza Vaccination: Yes Hx Pneumococcal Vaccination: Yes Review Of Systems Constitutional: Negative for: Fever, Chills Cardiovascular: Positive for: Chest Pain Respiratory: Positive for: Cough. Negative for: Shortness of Breath, Sputum Gastrointestinal: Positive for: Abdominal Pain. Negative for: Nausea, Vomiting Physical Exam - Physical Exam Appears: Non-toxic, No Acute Distress Skin: Normal Color, Warm, Dry, No Ecchymosis Head: Normacephalic Eye(s): bilateral: PERRL Nose: No Flaring, No Discharge Oral Mucosa: Moist, No Drooling Throat: No Erythema, No Drooling Neck: Trachea Midline, Supple Chest: Symmetrical, No Deformity, No Tenderness Cardiovascular: Rhythm Regular, No Murmur, No JVD Respiratory: No Rales, No Rhonchi, No Stridor, No Wheezing Gastrointestinal/Abdominal: Soft, No Tenderness, No Distention, No Guarding, No Rebound Extremity: Normal ROM, Capillary Refill (less than 2 seconds ) Neurological/Psych: Oriented x3, Normal Speech, Normal Cognition Gait: Steady ED Course And Treatment - Laboratory Results Result Diagrams: 05/20/17 13:51 05/20/17 12:53 Lab Interpretation: No Changes Compared To Prior Results ECG: Interpreted By Me, Viewed By Me () ECG Interpretation: No Changes From Prior Interpretation Of ECG: SR@81/min, NAD, T wave inversion in I, AVL, no acute ST- T changes O2 Sat by Pulse Oximetry: 98 (on RA) Pulse Ox Interpretation: Normal Progress Note: Morphine IVP, Vancomycin IVP, and IV Fluids administered. Case discussed with and admission re-arranged. Nephrology consult called w /. Disposition - Disposition Disposition: HOSPITALIZED Disposition Time: 12:34 Condition: STABLE - Clinical Impression Clinical Impression: ESRD (end stage renal disease), Pneumonia, ESRD (end stage renal disease) on dialysis - PA / GUARDIAN AD LITEM / Resident Statement MD/DO has reviewed & agrees with the documentation as recorded. - Scribe Statement The provider has reviewed the documentation as recorded by the Scribe (Hemalatha Dixon) All medical record entries made by the Scribe were at my direction and personally dictated by me. I have reviewed the chart and agree that the record accurately reflects my personal performance of the history, physical exam, medical decision making, and the department course for this patient. I have also personally directed, reviewed, and agree with the discharge instructions and disposition.
[2017-05-20 13:53] LABS: PROTHROMBIN TIME 10.7 SECONDS (9.7-12.2)
[2017-05-20 14:07] LABS: BASO # 0.1 K/uL (0.0-0.2); EOS # 0.2 K/uL (0.0-0.7); EOS % 1.5 % (0.0-4.0); HEMOGLOBIN 8.6 g/dL (12.0-18.0); LYMPH # 1.3 K/uL (1.0-4.3); LYMPH % 9.7 % (20.0-40.0); MEAN CELL VOLUME 86.5 fL (80.0-94.0); MEAN CORPUSCULAR HEMOGLOBIN 28.3 pg (27.0-31.0); MEAN CORPUSCULAR HGB CONC 32.8 g/dL (33.0-37.0); MEAN PLATELET VOLUME 10.4 fL (7.2-11.7); MONO # 1.3 K/uL (0.0-0.8); MONO % 10.2 % (0.0-10.0); NEUT # 10.2 K/uL (1.8-7.0); NEUT % 77.6 % (50.0-75.0); PLATELET COUNT 190 K/uL (130-400); RBC 3.03 Mil/uL (4.40-5.90); RED CELL DISTRIBUTION WIDTH 18.2 % (11.5-14.5); WHITE BLOOD COUNT 13.1 K/uL (4.8-10.8)
[2017-05-20 15:18] LABS: ANISOCYTOSIS SLIGHT; BANDS 2 % (0-2); EOSINOPHIL 3 % (0-4); HYPOCHROMIC SLIGHT; LARGE PLATELETS PRESENT; LYMPHOCYTE 9 % (20-40); MONOCYTE 11 % (0-10); NEUTROPHIL 75 % (50-75); PLATELET ESTIMATE NORMAL (NORMAL); POLYCHROMIC SLIGHT; TOTAL CELLS COUNTED 100
[2017-05-20 15:19] LABS: TOXIC GRANULATION PRESENT
--- NOTE | 2017-05-20 15:34 | CP.PCM.CON ---
History of Present Illness - History of Present Illness History of Present Illness: Nephrology Consultation Note Assessment: stable MRSA sepsis with lactic acidosis ? 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 Continue with Nephrovite 1 tab/ day. continue with MOHINI with HD Increased phos binders, last phos 3.8 BP control with meds as ordered. no ACEI/ARB due to hyperkalemia Glycemic control, Dialysis consistent diet Further work up/management as per primary team Dose meds/antibiotics for ESRD status. Avoid fleets enema/magnesium based laxatives. pt to abstain from marijuana DINO neg for endocarditis, consider doppler/usg of AV access Thanks for allowing me to participate in care of your patient. Will follow patient with you. Please call if any Qs. Dr Brenton Larsen Office: [phone] HPI: Pt is a 36 y/o M with hx of ESRD on hemodialysis (MWF) via AVF, chronic anemia, hyperphosphatemia, secondary hyperparathyroidism, Diabetes Mellitus, hypertension, recurrent nausea/vomiting and multiple hospitalization for same, hospitalized with sepsis and pain abdomen left AMA 05/19/17 and came back to hospital 05/20/17 with pain abdomen. missed HD today. didn't go to his dialysis unit Denies chest pain, palpitation, leg swelling c/o pain upper abdomen ROS: Constitutional Symptoms: No Recent Weight Changes Cardiovascular: No chest pain. No palpitations. Pulmonary: No cough. c/o SOB Gastrointestinal: c/o abdominal pain. improved nausea. improved vomiting. Denies change in bowel habits. Denies Bleeding All other negative. Physical Examination: General Appearance: comfortable, in no acute respiratory distress, co- operative. Vitals reviewed and noted as below Head; Atraumatic, normocephalic ENT: no ulcers no thrush. Tongue is midline. Oropharynx: no rash or ulcers. EYES: Pupils are equal, round and reactive to light accommodation. Eye muscles and extraocular movement intact. Sclera is anicteric. Neck; supple no lymphadenopathy, no thyromegaly or bruit Lungs: Normal respiratory rate/effort. Breath sounds bilateral equal and clear Heart: normal rate. s1s2 normal. No rub or gallop. Extremities: trace edema. No varicose veins Neurological: Patient is alert, awake and oriented to person, place and time. No focal deficit. Strength bilateral appropriate and equal Skin: Warm and dry. Normal turgor. No rash. Palpitation: Normal elasticity for age Abdomen: Abdomen is soft. Bowel sounds +. There is no epigastric abdominal tenderness, no guarding/rigidity or organomegaly Psych: limited insight and normal affect/mood MSK: no joint tenderness or swelling. Digits and nails normal, no deformity. : kidney or bladder not palpable. Access: AVF Labs/imaging reviewed. Past medical history, past surgical history, family history, social history, allergy reviewed and noted as below Family Hx: no hx of CKD. Non contributory sec HTN work up neg as renin/ioana, metanephrine and renal artery doppler Past Patient History - Infectious Disease Hx of Infectious Diseases: None - Past Medical History & Family History Past Medical History?: Yes - Past Social History Smoking Status: Current Some Days Smoker - CARDIAC Hx Cardiac Disorders: Yes Hx Congestive Heart Failure: Yes Hx Hypercholesterolemia: Yes Hx Hypertension: Yes Hx Peripheral Edema: Yes - PULMONARY Hx Respiratory Disorders: No - NEUROLOGICAL Hx Neurological Disorder: No - HEENT Hx HEENT Problems: Yes - RENAL Hx Chronic Kidney Disease: Yes Hx Kidney Stones: No - ENDOCRINE/METABOLIC Hx Endocrine Disorders: Yes Hx Diabetes Mellitus Type 2: Yes - HEMATOLOGICAL/ONCOLOGICAL Hx Anemia: Yes Hx Human Immunodeficiency Virus (HIV): No - INTEGUMENTARY Hx Dermatological Problems: No - MUSCULOSKELETAL/RHEUMATOLOGICAL Hx Musculoskeletal Disorders: No Hx Falls: Yes - GASTROINTESTINAL Hx Gastrointestinal Disorders: Yes Hx Gastritis: Yes (gastroparesis) - GENITOURINARY/GYNECOLOGICAL Hx Genitourinary Disorders: No - PSYCHIATRIC Hx Substance Use: Yes - SURGICAL HISTORY Hx Surgeries: Yes Hx Cataract Extraction: Yes (bilateral) Hx Vascular Access Device: Yes Other/Comment: Hx RT.PERMACATH INSERTION 12/30. 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 Hx UNDESCENDED TESTES LT. REMOVED DURING CHILDHOOD - ANESTHESIA Hx Anesthesia: Yes Hx Anesthesia Reactions: No Hx Malignant Hyperthermia: No Has any member of the family had a problem w/ anesthesia?: No Meds Allergies/Adverse Reactions: Allergies Allergy/AdvReac Type Severity Reaction Status Date / Time No Known Allergies Allergy Verified 05/20/17 11:43 - Medications Medications: Current Medications Epoetin Oumar (Procrit) 8,000 unit IV MWF [facility] Sodium Chloride (Sodium Chloride 0.9%) 1,000 mls @ 250 mls/hr IV .Q4H ONE Stop: 05/20/17 17:32 Last Admin: 05/20/17 13:51 Dose: 250 mls/hr Results - Vital Signs Recent Vital Signs: Last Vital Signs Temp 97.9 F 05/20/17 14:20 Pulse 83 05/20/17 14:20 Resp 20 05/20/17 14:20 BP 166/82 H 05/20/17 14:20 Pulse Ox 98 05/20/17 14:23 - Labs Result Diagrams: 05/20/17 13:51 05/20/17 12:53 Labs: Laboratory Results - last 24 hr 05/20/17 05/20/17 05/20/17 12:53 12:58 13:32 WBC RBC Hgb Hct MCV MCH MCHC RDW Plt Count MPV Neut % (Auto) Lymph % (Auto) [place] % (Auto) Eos % (Auto) Baso % (Auto) Neut # (Auto) Lymph # (Auto) [place] # (Auto) Eos # (Auto) Baso # (Auto) Neutrophils % (Manual) Band Neutrophils % Lymphocytes % (Manual) Monocytes % (Manual) Eosinophils % (Manual) Toxic Granulation Platelet Estimate Large Platelets Polychromasia Hypochromasia (manual) Anisocytosis (manual) PT 10.7 INR 1.0 APTT 27 Sodium 129 L Potassium 5.4 H Chloride 92 L Carbon Dioxide 18 L Anion Gap 25 H BUN 52 H Creatinine 7.3 H Est GFR ( Amer) 10 Est GFR (Non-Af Amer) 9 Random Glucose 445 H* Calcium 8.5 L Total Bilirubin 0.7 AST 27 ALT 18 L D Alkaline Phosphatase 210 H Total Creatine Kinase 65 Total Protein 7.7 Albumin 3.6 Globulin 4.1 H Albumin/Globulin Ratio 0.9 L Influenza Typ A,B (EIA) Negative for flu a/b 05/20/17 13:51 WBC 13.1 H RBC 3.03 L Hgb 8.6 L Hct 26.2 L MCV 86.5 MCH 28.3 MCHC 32.8 L RDW 18.2 H Plt Count 190 MPV 10.4 Neut % (Auto) 77.6 H Lymph % (Auto) 9.7 L [place] % (Auto) 10.2 H Eos % (Auto) 1.5 Baso % (Auto) 1.0 Neut # (Auto) 10.2 H Lymph # (Auto) 1.3 [place] # (Auto) 1.3 H Eos # (Auto) 0.2 Baso # (Auto) 0.1 Neutrophils % (Manual) 75 Band Neutrophils % 2 Lymphocytes % (Manual) 9 L Monocytes % (Manual) 11 H Eosinophils % (Manual) 3 Toxic Granulation Present Platelet Estimate Normal Large Platelets Present Polychromasia Slight Hypochromasia (manual) Slight Anisocytosis (manual) Slight PT INR APTT Sodium Potassium Chloride Carbon Dioxide Anion Gap BUN Creatinine Est GFR ( Amer) Est GFR (Non-Af Amer) Random Glucose Calcium Total Bilirubin AST ALT Alkaline Phosphatase Total Creatine Kinase Total Protein Albumin Globulin Albumin/Globulin Ratio Influenza Typ A,B (EIA)
[2017-05-20] MEDS ORDERED: Epoetin Alfa 10,000 unit/ml Dialysis IV SCH (16:00)
[2017-05-20] MEDS: (Novolog) Insulin Aspart, Recombinant 100 u/ml 10 ml vial SC SCH ×2 (17:02→21:10)
[2017-05-20] MEDS: HYDROmorphone 1 mg/ml ISec IVP PRN (19:26)
[2017-05-21] MEDS: HYDROmorphone 1 mg/ml ISec IVP PRN ×6 (03:52→20:09)
[2017-05-21] MEDS: (Novolog) Insulin Aspart, Recombinant 100 u/ml 10 ml vial SC SCH ×4 (08:08→21:52)
[2017-05-21 14:05] LABS: BASO # 0.1 K/uL (0.0-0.2); BASO % 0.4 % (0.0-2.0); EOS # 0.3 K/uL (0.0-0.7); EOS % 2.1 % (0.0-4.0); HEMOGLOBIN 10.3 g/dL (12.0-18.0); LYMPH # 1.5 K/uL (1.0-4.3); LYMPH % 11.4 % (20.0-40.0); MEAN CELL VOLUME 85.9 fL (80.0-94.0); MEAN CORPUSCULAR HEMOGLOBIN 28.2 pg (27.0-31.0); MEAN CORPUSCULAR HGB CONC 32.9 g/dL (33.0-37.0); MONO # 1.7 K/uL (0.0-0.8); MONO % 12.7 % (0.0-10.0); NEUT # 9.9 K/uL (1.8-7.0); NEUT % 73.4 % (50.0-75.0); NRBC % 0.1 % (0.0-2.0); RBC 3.66 Mil/uL (4.40-5.90); RED CELL DISTRIBUTION WIDTH 18.2 % (11.5-14.5); WHITE BLOOD COUNT 13.4 K/uL (4.8-10.8)
[2017-05-21 14:20] LABS: ALB/GLOB RATIO 0.8 (1.0-2.1); ALBUMIN 3.4 g/dL (3.5-5.0); CALCIUM 8.5 mg/dl (8.6-10.4)
--- NOTE | 2017-05-21 21:06 | CARD ---
APPROVED REPORT EKG Measurement Heart [id number] <Conclusion> Normal sinus rhythm Nonspecific T wave abnormality Prolonged QT Abnormal ECG
--- NOTE | 2017-05-21 22:40 | CP.PCM.PN ---
Subjective - Date & Time of Evaluation Date of Evaluation: 05/21/17 Time of Evaluation: 22:38 - Subjective Subjective: no events overnight Assessment: stable MRSA sepsis with lactic acidosis ? source recurrent nausea/vomiting uncontrolled DM with hypoglycemia and hyperglycemia Diabetic chronic Kidney Disease (E11.22) Hypertensive Chronic Kidney Disease (I12.0) End stage renal disease (N18.6) dependence on hemodialysis (Z99.2) (MWF) via AVF Anemia (D64.9), Hyperphosphatemia (E83.39), Secondary Hyperparathyroidism (E21.1 ), HTN (I12.0) Plan: continue hd MWF schedule as ordered. Continue with Nephrovite 1 tab/day. continue with MOHINI with HD continue binders BP control with meds as ordered. Glycemic control, Dialysis consistent diet Further work up/management as per primary team Dose meds/antibiotics for ESRD status. Avoid fleets enema/magnesium based laxatives. DINO neg for endocarditis, consider doppler/usg of AV access Physical Examination: General Appearance: comfortable, in no acute respiratory distress, co- operative. Vitals reviewed and noted as below Head; Atraumatic, normocephalic ENT: no ulcers no thrush. Tongue is midline. Oropharynx: no rash or ulcers. EYES: Eye muscles and extraocular movement intact. Sclera is anicteric. Neck; supple no lymphadenopathy, no thyromegaly or bruit Lungs: Normal respiratory rate/effort. Breath sounds bilateral equal and clear Heart: normal rate. s1s2 normal. No rub or gallop. Extremities: trace edema. No varicose veins Neurological: Patient is alert, awake and oriented to person, place and time. No focal deficit. Strength bilateral appropriate and equal Skin: Warm and dry. Normal turgor. No rash. Abdomen: Abdomen is soft. Bowel sounds +. Psych: limited insight and normal affect/mood MSK: no joint tenderness or swelling. Digits and nails normal, no deformity. : kidney or bladder not palpable. Access: AVF Objective - Vital Signs/Intake and Output Vital Signs (last 24 hours): Temp Pulse Resp BP Pulse Ox 98.1 F 101 H 20 179/80 H 96 05/21/17 16:00 05/21/17 16:00 05/21/17 16:00 05/21/17 16:00 05/21/17 16:00 Intake and Output: 05/21/17 05/22/17 18:59 06:59 Intake Total 200 Balance 200 - Medications Medications: Current Medications Amlodipine Besylate (Norvasc) 10 mg PO DAILY [facility] Last Admin: 05/21/17 09:21 Dose: 10 mg Aspirin (Aspirin Chewable) 81 mg PO DAILY [facility] Last Admin: 05/21/17 09:21 Dose: 81 mg Epoetin Oumar (Procrit) 8,000 unit IV F [facility] Heparin Sodium (Porcine) (Heparin) 5,000 units SC Q12 [facility] Last Admin: 05/21/17 21:53 Dose: Not Given Hydralazine HCl (Apresoline) 25 mg PO Q6H [facility] Last Admin: 05/21/17 16:09 Dose: 25 mg Hydromorphone HCl (Dilaudid) 1 mg IVP Q4H PRN PRN Reason: Pain, moderate (4-7) Last Admin: 05/21/17 20:09 Dose: 1 mg Vancomycin HCl 500 mg/ Sodium (Chloride) 100 mls @ 100 mls/hr IVPB [facility] PRN Reason: Protocol Insulin Aspart (Novolog) 0 unit SC [facility] PRN Reason: Protocol Last Admin: 05/21/17 21:52 Dose: Not Given Ondansetron HCl (Zofran Tab) 4 mg PO Q8H PRN PRN Reason: Nausea/Vomiting Rosuvastatin Calcium (Crestor) 40 mg PO DAILY [facility] Last Admin: 05/21/17 09:21 Dose: 40 mg Sevelamer Carbonate (Renvela) 800 mg PO TID [facility] Last Admin: 05/21/17 17:22 Dose: Not Given Sucralfate (Carafate Tab) 1 gm PO Q12H [facility] Last Admin: 05/21/17 16:09 Dose: 1 gm - Labs Labs: 05/21/17 13:57 05/21/17 13:57 PT 10.7 SECONDS (9.7-12.2) 05/20/17 13:32 INR 1.0 05/20/17 13:32 APTT 27 SECONDS (21-34) 05/20/17 13:32
[2017-05-22] MEDS: HYDROmorphone 1 mg/ml ISec IVP PRN ×5 (00:13→16:59)
[2017-05-22 07:51] LABS: BASO # 0.1 K/uL (0.0-0.2); BASO % 0.7 % (0.0-2.0); EOS # 0.3 K/uL (0.0-0.7); EOS % 2.4 % (0.0-4.0); HEMOGLOBIN 10.1 g/dL (12.0-18.0); LYMPH # 1.6 K/uL (1.0-4.3); LYMPH % 13.3 % (20.0-40.0); MEAN CELL VOLUME 85.5 fL (80.0-94.0); MEAN CORPUSCULAR HEMOGLOBIN 28.3 pg (27.0-31.0); MEAN CORPUSCULAR HGB CONC 33.1 g/dL (33.0-37.0); MEAN PLATELET VOLUME 9.7 fL (7.2-11.7); MONO # 1.4 K/uL (0.0-0.8); MONO % 11.5 % (0.0-10.0); NEUT # 8.7 K/uL (1.8-7.0); NEUT % 72.1 % (50.0-75.0); RBC 3.57 Mil/uL (4.40-5.90); RED CELL DISTRIBUTION WIDTH 18.4 % (11.5-14.5)
[2017-05-22] MEDS: (Novolog) Insulin Aspart, Recombinant 100 u/ml 10 ml vial SC SCH ×4 (08:20→21:29)
[2017-05-22 08:30] LABS: ALB/GLOB RATIO 0.9 (1.0-2.1); ALBUMIN 3.4 g/dL (3.5-5.0); CALCIUM 8.6 mg/dl (8.6-10.4)
[2017-05-22 14:52] LABS: CK-MB 2.5 ng/mL (0.0-3.38); TROPONIN I 0.024 ng/mL (0.00-0.120)
[2017-05-22] MEDS: HYDROmorphone 0.5 mg/0.5 ml ISec IVP PRN (21:17)
[2017-05-23] MEDS: HYDROmorphone 0.5 mg/0.5 ml ISec IVP PRN ×6 (01:35→22:40)
[2017-05-23 07:28] LABS: BASO # 0.1 K/uL (0.0-0.2); EOS # 0.4 K/uL (0.0-0.7); EOS % 3.5 % (0.0-4.0); HEMOGLOBIN 9.6 g/dL (12.0-18.0); LYMPH # 1.9 K/uL (1.0-4.3); LYMPH % 15.8 % (20.0-40.0); MEAN CELL VOLUME 85.8 fL (80.0-94.0); MEAN CORPUSCULAR HEMOGLOBIN 28.3 pg (27.0-31.0); MONO # 1.3 K/uL (0.0-0.8); MONO % 10.7 % (0.0-10.0); NEUT # 8.5 K/uL (1.8-7.0); RBC 3.4 Mil/uL (4.40-5.90); RED CELL DISTRIBUTION WIDTH 18.4 % (11.5-14.5); WHITE BLOOD COUNT 12.3 K/uL (4.8-10.8)
[2017-05-23 08:16] LABS: ALB/GLOB RATIO 0.8 (1.0-2.1); ALBUMIN 3.2 g/dL (3.5-5.0); CALCIUM 8.4 mg/dl (8.6-10.4)
[2017-05-23] MEDS: (Novolog) Insulin Aspart, Recombinant 100 u/ml 10 ml vial SC SCH ×4 (08:30→22:43)
[2017-05-23] MEDS ORDERED: EPOETIN ALFA 4,000 UNIT/ML ML Dialysis IV SCH (09:00)
--- NOTE | 2017-05-23 09:57 | CP.PCM.PN ---
Subjective - Date & Time of Evaluation Date of Evaluation: 05/23/17 Time of Evaluation: 11:16 - Subjective Subjective: Medicine Progress Note- Dr. Chadwick's service Patient seen and examined in no acute distress. Patient for HD today. Patient admits to some abdominal discomfort. He denies nausea, vomiting, headaches or changes in bowel movements at this time. Objective - Vital Signs/Intake and Output Vital Signs (last 24 hours): Temp Pulse Resp BP Pulse Ox 98 F 112 H 20 163/82 H 95 05/23/17 08:00 05/23/17 08:00 05/23/17 08:00 05/23/17 08:00 05/23/17 08:00 Intake and Output: 05/23/17 05/23/17 06:59 18:59 Intake Total 120 Balance 120 - Medications Medications: Current Medications Amlodipine Besylate (Norvasc) 10 mg PO DAILY [facility] Last Admin: 05/22/17 09:45 Dose: 10 mg Aspirin (Aspirin Chewable) 81 mg PO DAILY [facility] Last Admin: 05/23/17 09:11 Dose: 81 mg Epoetin Oumar (Procrit) 8,000 unit IV MWF [facility] Heparin Sodium (Porcine) (Heparin) 5,000 units SC Q12 [facility] Last Admin: 05/23/17 09:12 Dose: Not Given Hydralazine HCl (Apresoline) 25 mg PO Q6H [facility] Last Admin: 05/23/17 05:24 Dose: 25 mg Hydromorphone HCl (Dilaudid) 1 mg IVP Q4H PRN PRN Reason: Pain, moderate (4-7) Last Admin: 05/23/17 05:25 Dose: 1 mg Vancomycin HCl 500 mg/ Sodium (Chloride) 100 mls @ 100 mls/hr IVPB MWF [facility] PRN Reason: Protocol Last Admin: 05/23/17 08:38 Dose: 100 mls/hr Insulin Aspart (Novolog) 0 unit SC ACHS [facility] PRN Reason: Protocol Last Admin: 05/23/17 08:30 Dose: 2 unit Ondansetron HCl (Zofran Tab) 4 mg PO Q8H PRN PRN Reason: Nausea/Vomiting Rosuvastatin Calcium (Crestor) 5 mg PO HS [facility] Last Admin: 05/22/17 21:32 Dose: 5 mg Sevelamer Carbonate (Renvela) 800 mg PO TID [facility] Last Admin: 05/23/17 09:11 Dose: 800 mg Sucralfate (Carafate Tab) 1 gm PO Q12H [facility] Last Admin: 05/23/17 05:24 Dose: 1 gm - Labs Labs: 05/23/17 07:22 05/23/17 07:22 PT 10.7 SECONDS (9.7-12.2) 05/20/17 13:32 INR 1.0 05/20/17 13:32 APTT 27 SECONDS (21-34) 05/20/17 13:32 - Constitutional Appears: Non-toxic, No Acute Distress - Head Exam Head Exam: ATRAUMATIC, NORMAL INSPECTION, NORMOCEPHALIC - Eye Exam Eye Exam: EOMI, Normal appearance Pupil Exam: NORMAL ACCOMODATION - Neck Exam Neck Exam: Full ROM - Respiratory Exam Respiratory Exam: NORMAL BREATHING PATTERN - Cardiovascular Exam Cardiovascular Exam: +S1, +S2 - GI/Abdominal Exam GI & Abdominal Exam: Soft, Normal Bowel Sounds - Extremities Exam Extremities Exam: Full ROM, Normal Capillary Refill - Back Exam Back Exam: Full ROM - Neurological Exam Neurological Exam: Alert, Awake - Psychiatric Exam Psychiatric exam: Normal Affect, Normal Mood - Skin Skin Exam: Normal Color, Warm Assessment and Plan - Assessment and Plan (Free Text) Assessment: Sepsis 2/2 bacteremia -Stable, afebrile -Code sepsis: Patient with MRSA bacteremia, source unclear at this time on [facility] admission. Patient left AMA. -Antibiotics: Vancomycin MWF on dialysis, -Leukocytosis stable -Fecal leukocytes, stool culture, c diff negative -Echo within normal limits -DINO negative for endocarditis -Dr SIMEON Mangia, on consult, help appreciated repeat blood cultures 05/20/17 negative Diabetes Mellitus/Gastroparesis/Gastritis/Hx of non-compliance -Insulin sliding scale ACHS, accuchecks ACHS -hypoglycemia protocol -levemir 10u SC HS -Reglan and Zofran prn nausea -Protonix 40mg IVP daily -Social work referral placed ESRD on HD -Hemodialysis MWF -Dr. Suzie Jameson, on consult, help appreciated -phoslo 1334 PO TIDCC -procrit 8000 IV MWF w/ HD Hypertension -was on Cardene drip previously in ICU on last admission -Continue Norvasc 10mg PO daily -Clonidine 0.3mg PO TID -Hydralazine 50mg PO TID -avoid DANDRE/ ARB due to hyperkalemia Chest pain EKG showed no change from prior, SHIRLEY negative Prophylactic measure SCDs heparin 5000u SC BID protonix 40mg IVP daily Dispo: Patient to be discharged; however patient refusing at this time because of abdominal pain. Will hold off tonight until abdominal symptoms resolve. Plans to D/C in the AM. All medical management as per Dr. Chadwick
--- NOTE | 2017-05-23 10:42 | VASCLAB ---
PROCEDURE: Arterial-Venous shunt Evaluation. HISTORY: MRSA sepsis r/o Collection around AVF PRIORS: None. TECHNIQUE: Ultrasound evaluation of arterial-venous shunt with color doppler and velocity measurements. Report prepared by Franco Lyles RVT FINDINGS: Type of arterial-venous shunt: A-V straight Afferent Artery: Brachial Efferent Vein: Cephalic 1. Afferent Artery: Velocity 266.4 cm/s Image Characteristics: 2. Inflow Anastamosis: Velocity 272.6 cm/s Image Characteristics: Plaque formation noted resulting in narrowing of 2.3 mm 3. Mid shunt flow: Velocity cm/s Image Characteristics: 4. Outflow Anastamosis: Velocity cm/s Image Characteristics: 5. Efferent Vein: Velocity 619.1 cm/s Image Characteristics: Stenotic OTHER FINDINGS: None. IMPRESSION: LEFT BRACHIAL CEPHALIC VEIN FISTULA: Real time combine with Duplex examination of the hemodialysis access was performed. There was irregular, heterogeneous plaque formation noted in the anastomosis extending into outflow vein, resulting in sustained high velocities and hyperemia around the A-V fistula.
--- NOTE | 2017-05-23 15:01 | CP.PCM.PN ---
Subjective - Date & Time of Evaluation Date of Evaluation: 05/23/17 Time of Evaluation: 15:00 - Subjective Subjective: Nephrology Consultation Note Assessment: stable MRSA sepsis with lactic acidosis ? source recurrent nausea/vomiting, Cyclic Emesis Syndrome, marijuana abuse, gastroparesis uncontrolled DM with hypoglycemia and hyperglycemia Diabetic chronic Kidney Disease (E11.22) Hypertensive Chronic Kidney Disease (I12.0) End stage renal disease (N18.6) dependence on hemodialysis (Z99.2) (MWF) via AVF Anemia (D64.9), Hyperphosphatemia (E83.39), Secondary Hyperparathyroidism (E21.1 ), HTN (I12.0) Plan: dialysis today done as per MWF schedule as ordered. Continue with Nephrovite 1 tab/day. continue with MOHINI with HD, last Hb 9.6 Increased phos binders, last phos 3.8 BP control with meds as ordered. no ACEI/ARB due to hyperkalemia eposides intermittently/frequently Glycemic control, Dialysis consistent diet Further work up/management as per primary team Dose meds/antibiotics for ESRD status. Avoid fleets enema/magnesium based laxatives. pt to abstain from marijuana DINO neg for endocarditis, Doppler/usg of AV access: no report of localized collection Thanks for allowing me to participate in care of your patient. Will follow patient with you. Please call if any Qs. Dr Brenton Larsen Office: [phone] HPI: Pt is a 36 y/o M with hx of ESRD on hemodialysis (MWF) via AVF, chronic anemia, hyperphosphatemia, secondary hyperparathyroidism, Diabetes Mellitus, hypertension, recurrent nausea/vomiting and multiple hospitalization for same, hospitalized with sepsis and pain abdomen left AMA 05/19/17 and came back to hospital 05/20/17 with pain abdomen. missed HD today. didn't go to his dialysis unit Denies chest pain, palpitation, leg swelling c/o pain upper abdomen ROS: Constitutional Symptoms: No Recent Weight Changes Cardiovascular: No chest pain. No palpitations. Pulmonary: No cough. c/o SOB Gastrointestinal: c/o abdominal pain. improved nausea. improved vomiting. Denies change in bowel habits. Denies Bleeding All other negative. Physical Examination: General Appearance: comfortable, in no acute respiratory distress, co- operative. Vitals reviewed and noted as below Head; Atraumatic, normocephalic ENT: no ulcers no thrush. Tongue is midline. Oropharynx: no rash or ulcers. EYES: Pupils are equal, round and reactive to light accommodation. Eye muscles and extraocular movement intact. Sclera is anicteric. Neck; supple no lymphadenopathy, no thyromegaly or bruit Lungs: Normal respiratory rate/effort. Breath sounds bilateral equal and clear Heart: normal rate. s1s2 normal. No rub or gallop. Extremities: trace edema. No varicose veins Neurological: Patient is alert, awake and oriented to person, place and time. No focal deficit. Strength bilateral appropriate and equal Skin: Warm and dry. Normal turgor. No rash. Palpitation: Normal elasticity for age Abdomen: Abdomen is soft. Bowel sounds +. There is no epigastric abdominal tenderness, no guarding/rigidity or organomegaly Psych: limited insight and normal affect/mood MSK: no joint tenderness or swelling. Digits and nails normal, no deformity. : kidney or bladder not palpable. Access: AVF Labs/imaging reviewed. Past medical history, past surgical history, family history, social history, allergy reviewed and noted as below Family Hx: no hx of CKD. Non contributory sec HTN work up neg as renin/ioana, metanephrine and renal artery doppler Objective - Vital Signs/Intake and Output Vital Signs (last 24 hours): Temp Pulse Resp BP Pulse Ox 98.2 F 85 17 148/78 96 05/23/17 14:53 05/23/17 14:53 05/23/17 14:53 05/23/17 14:53 05/23/17 14:53 Intake and Output: 05/23/17 05/23/17 06:59 18:59 Intake Total 120 Balance 120 - Medications Medications: Current Medications Amlodipine Besylate (Norvasc) 10 mg PO DAILY [facility] Last Admin: 05/23/17 10:58 Dose: Not Given Aspirin (Aspirin Chewable) 81 mg PO DAILY [facility] Last Admin: 05/23/17 09:11 Dose: 81 mg Epoetin Oumar (Procrit) 8,000 unit IV MWF [facility] Last Admin: 05/23/17 10:49 Dose: 8,000 unit Heparin Sodium (Porcine) (Heparin) 5,000 units SC Q12 [facility] Last Admin: 05/23/17 09:12 Dose: Not Given Hydralazine HCl (Apresoline) 25 mg PO Q6H [facility] Last Admin: 05/23/17 14:15 Dose: 25 mg Hydromorphone HCl (Dilaudid) 1 mg IVP Q4H PRN PRN Reason: Pain, moderate (4-7) Last Admin: 05/23/17 14:16 Dose: 1 mg Vancomycin HCl 500 mg/ Sodium (Chloride) 100 mls @ 100 mls/hr IVPB MWF [facility] PRN Reason: Protocol Last Admin: 05/23/17 08:38 Dose: 100 mls/hr Insulin Aspart (Novolog) 0 unit SC ACHS [facility] PRN Reason: Protocol Last Admin: 05/23/17 14:00 Dose: Not Given Ondansetron HCl (Zofran Tab) 4 mg PO Q8H PRN PRN Reason: Nausea/Vomiting Rosuvastatin Calcium (Crestor) 5 mg PO HS [facility] Last Admin: 05/22/17 21:32 Dose: 5 mg Sevelamer Carbonate (Renvela) 800 mg PO TID [facility] Last Admin: 05/23/17 14:19 Dose: 800 mg Sucralfate (Carafate Tab) 1 gm PO Q12H [facility] Last Admin: 05/23/17 05:24 Dose: 1 gm - Labs Labs: 05/23/17 07:22 05/23/17 07:22 PT 10.7 SECONDS (9.7-12.2) 05/20/17 13:32 INR 1.0 05/20/17 13:32 APTT 27 SECONDS (21-34) 05/20/17 13:32
[2017-05-24 00:26] VITALS: RESP 20; O2SAT 95
[2017-05-24] MEDS: HYDROmorphone 0.5 mg/0.5 ml ISec IVP PRN ×3 (02:42→12:20)
--- NOTE | 2017-05-24 07:05 | HP ---
HISTORY OF PRESENT ILLNESS: Mr. Haynes is a 36-year-old male who has history of diabetes, chief complaint of weakness, fatigue, and chest pain. Patient signed out against medical advice. The patient . PHYSICAL EXAMINATION: GENERAL: The patient is awake, alert, and oriented. VITAL SIGNS: Temperature 98, pulse 90. HEENT: Within normal limits. NECK: Supple. CHEST: Symmetrical. HEART: Regular. ABDOMEN: Soft. EXTREMITIES: No edema. ASSESSMENT AND PLAN: Patient suffers from chest pain, . The patient to get bed rest, antibiotics. ID consult and nephrology consult. Lucero Chadwick MD
--- NOTE | 2017-05-24 07:20 | CP.PCM.PN ---
Subjective - Date & Time of Evaluation Date of Evaluation: 05/24/17 Time of Evaluation: 09:44 - Subjective Subjective: PGY 2 Medicine Note- Dr. Chadwick's service Patient seen and examined bedside. Patient admits to not feeling well yesterday. Patient admits to general malaise. Patient reluctant to go home. He states that he does not feel well, but unable to specify. Objective - Vital Signs/Intake and Output Vital Signs (last 24 hours): Temp Pulse Resp BP Pulse Ox 97.6 F 98 H 20 146/70 95 05/23/17 23:05 05/23/17 23:05 05/23/17 23:05 05/23/17 23:05 05/23/17 23:05 Intake and Output: 05/24/17 05/24/17 06:59 18:59 Intake Total 300 Balance 300 - Medications Medications: Current Medications Amlodipine Besylate (Norvasc) 10 mg PO DAILY [facility] Last Admin: 05/23/17 10:58 Dose: Not Given Aspirin (Aspirin Chewable) 81 mg PO DAILY [facility] Last Admin: 05/23/17 09:11 Dose: 81 mg Epoetin Oumar (Procrit) 8,000 unit IV MWF [facility] Last Admin: 05/23/17 10:49 Dose: 8,000 unit Heparin Sodium (Porcine) (Heparin) 5,000 units SC Q12 [facility] Last Admin: 05/23/17 21:01 Dose: Not Given Hydralazine HCl (Apresoline) 25 mg PO Q8 [facility] Last Admin: 05/24/17 06:49 Dose: 25 mg Hydromorphone HCl (Dilaudid) 1 mg IVP Q4H PRN PRN Reason: Pain, moderate (4-7) Last Admin: 05/24/17 06:49 Dose: 1 mg Vancomycin HCl 500 mg/ Sodium (Chloride) 100 mls @ 100 mls/hr IVPB MWF [facility] PRN Reason: Protocol Last Admin: 05/23/17 08:38 Dose: 100 mls/hr Insulin Aspart (Novolog) 0 unit SC ACHS [facility] PRN Reason: Protocol Last Admin: 05/23/17 22:43 Dose: Not Given Ondansetron HCl (Zofran Tab) 4 mg PO Q8H PRN PRN Reason: Nausea/Vomiting Rosuvastatin Calcium (Crestor) 5 mg PO HS [facility] Last Admin: 05/23/17 21:01 Dose: 5 mg Sevelamer Carbonate (Renvela) 800 mg PO TID [facility] Last Admin: 05/23/17 18:33 Dose: 800 mg Sucralfate (Carafate Tab) 1 gm PO Q12H [facility] Last Admin: 05/24/17 04:41 Dose: 1 gm - Labs Labs: 05/23/17 07:22 05/23/17 07:22 PT 10.7 SECONDS (9.7-12.2) 05/20/17 13:32 INR 1.0 05/20/17 13:32 APTT 27 SECONDS (21-34) 05/20/17 13:32 - Constitutional Appears: Non-toxic, No Acute Distress - Head Exam Head Exam: ATRAUMATIC, NORMAL INSPECTION - Eye Exam Eye Exam: EOMI, Normal appearance - ENT Exam ENT Exam: Mucous Membranes Moist - Neck Exam Neck Exam: Full ROM - Respiratory Exam Respiratory Exam: absent: Wheezes - Cardiovascular Exam Cardiovascular Exam: +S1, +S2 - GI/Abdominal Exam GI & Abdominal Exam: Soft, Normal Bowel Sounds - Extremities Exam Extremities Exam: Full ROM, Normal Capillary Refill - Back Exam Back Exam: Full ROM - Neurological Exam Neurological Exam: Alert, Awake, Oriented x3 - Psychiatric Exam Psychiatric exam: Flat Affect - Skin Skin Exam: Dry, Normal Color Assessment and Plan - Assessment and Plan (Free Text) Assessment: Sepsis 2/2 bacteremia -Stable, afebrile -Code sepsis: Patient with MRSA bacteremia, source unclear at this time on [facility] admission. Patient left AMA. -Antibiotics: Vancomycin MWF on dialysis, -Leukocytosis stable -Fecal leukocytes, stool culture, c diff negative -Echo within normal limits -DINO negative for endocarditis -Dr SIMEON Mangia, on consult, help appreciated repeat blood cultures 05/20/17 negative Diabetes Mellitus/Gastroparesis/Gastritis/Hx of non-compliance -Insulin sliding scale ACHS, accuchecks ACHS -hypoglycemia protocol -levemir 10u SC HS -Reglan and Zofran prn nausea -Protonix 40mg IVP daily -Social work referral placed ESRD on HD -Hemodialysis MWF -NephDr. Suzie tellez, on consult, help appreciated -phoslo 1334 PO TIDCC -procrit 8000 IV MWF w/ HD Hypertension -was on Cardene drip previously in ICU on last admission -Continue Norvasc 10mg PO daily -Clonidine 0.3mg PO TID -Hydralazine 50mg PO TID -avoid DANDRE/ ARB due to hyperkalemia Chest pain EKG showed no change from prior, SHIRLEY negative Prophylactic measure SCDs heparin 5000u SC BID protonix 40mg IVP daily Dispo: Patient to be discharged on 05/23; however patient refusing then because of abdominal pain. Had long discussion with patient about his concerns. Patient to be discharged today. Discharge Instructions Patient is medically stable for discharge home. Patient should follow up with primary Medical doctor within one week. Patient should resume Dialysis sessions as scheduled. Patient to continue Vancomycin antibiotic on his dialysis days (Tuesday, Tuesday and Tuesday) for four week duration since he was previously being treated in-house. Patient may continue home medications. Patient provided with prescriptions. If symptoms return, go to the emergency room. Instructions explained to patient who is aware. Discussed with attending. All medical management as per Dr. Chadwick
[2017-05-24 08:06] LABS: BASO # 0.1 K/uL (0.0-0.2); BASO % 0.7 % (0.0-2.0); EOS # 0.4 K/uL (0.0-0.7); EOS % 2.9 % (0.0-4.0); HEMOGLOBIN 9.6 g/dL (12.0-18.0); LYMPH % 13.4 % (20.0-40.0); MEAN CELL VOLUME 85.5 fL (80.0-94.0); MEAN CORPUSCULAR HEMOGLOBIN 27.8 pg (27.0-31.0); MEAN CORPUSCULAR HGB CONC 32.5 g/dL (33.0-37.0); MEAN PLATELET VOLUME 8.8 fL (7.2-11.7); MONO # 1.7 K/uL (0.0-0.8); MONO % 11.8 % (0.0-10.0); NEUT # 10.4 K/uL (1.8-7.0); NEUT % 71.2 % (50.0-75.0); RBC 3.47 Mil/uL (4.40-5.90); RED CELL DISTRIBUTION WIDTH 17.8 % (11.5-14.5); WHITE BLOOD COUNT 14.7 K/uL (4.8-10.8)
[2017-05-24 08:17] LABS: ALB/GLOB RATIO 0.8 (1.0-2.1); ALBUMIN 3.4 g/dL (3.5-5.0); CALCIUM 8.6 mg/dl (8.6-10.4)
[2017-05-24] MEDS: (Novolog) Insulin Aspart, Recombinant 100 u/ml 10 ml vial SC SCH ×3 (09:49→16:20)
--- NOTE | 2017-05-24 11:31 | CP.PCM.PN ---
Subjective - Date & Time of Evaluation Date of Evaluation: 05/24/17 Time of Evaluation: 11:30 - Subjective Subjective: Nephrology Consultation Note Assessment: stable MRSA sepsis with lactic acidosis ? source recurrent nausea/vomiting, Cyclic Emesis Syndrome, marijuana abuse, gastroparesis uncontrolled DM with hypoglycemia and hyperglycemia Diabetic chronic Kidney Disease (E11.22) Hypertensive Chronic Kidney Disease (I12.0) End stage renal disease (N18.6) dependence on hemodialysis (Z99.2) (MWF) via AVF Anemia (D64.9), Hyperphosphatemia (E83.39), Secondary Hyperparathyroidism (E21.1 ), HTN (I12.0) Plan: dialysis tomorrow as per MWF schedule as ordered. Continue with Nephrovite 1 tab /day. continue with MOHINI with HD, last Hb 9.6 Increased phos binders, last phos 3.8 BP control with meds as ordered. no ACEI/ARB due to hyperkalemia eposides intermittently/frequently Glycemic control, Dialysis consistent diet Further work up/management as per primary team Dose meds/antibiotics for ESRD status. Avoid fleets enema/magnesium based laxatives. pt to abstain from marijuana DNIO neg for endocarditis, Doppler/usg of AV access: no report of localized collection Thanks for allowing me to participate in care of your patient. Will follow patient with you. Please call if any Qs. Dr Brenton Larsen Office: [phone] HPI: Pt is a 36 y/o M with hx of ESRD on hemodialysis (MWF) via AVF, chronic anemia, hyperphosphatemia, secondary hyperparathyroidism, Diabetes Mellitus, hypertension, recurrent nausea/vomiting and multiple hospitalization for same, hospitalized with sepsis and pain abdomen left AMA 05/19/17 and came back to hospital 05/20/17 with pain abdomen. missed HD today. didn't go to his dialysis unit Denies chest pain, palpitation, leg swelling c/o pain upper abdomen ROS: Constitutional Symptoms: No Recent Weight Changes Cardiovascular: No chest pain. No palpitations. Pulmonary: No cough. says breathing heavy (always) Gastrointestinal: c/o abdominal pain. improved nausea. improved vomiting. Denies change in bowel habits. Denies Bleeding All other negative. Physical Examination: General Appearance: comfortable, in no acute respiratory distress, co- operative. Vitals reviewed and noted as below Head; Atraumatic, normocephalic ENT: no ulcers no thrush. Tongue is midline. Oropharynx: no rash or ulcers. EYES: Pupils are equal, round and reactive to light accommodation. Eye muscles and extraocular movement intact. Sclera is anicteric. Neck; supple no lymphadenopathy, no thyromegaly or bruit Lungs: Normal respiratory rate/effort. Breath sounds bilateral equal and clear Heart: normal rate. s1s2 normal. No rub or gallop. Extremities: no edema. No varicose veins Neurological: Patient is alert, awake and oriented to person, place and time. No focal deficit. Strength bilateral appropriate and equal Skin: Warm and dry. Normal turgor. No rash. Palpitation: Normal elasticity for age Abdomen: Abdomen is soft. Bowel sounds +. There is no epigastric abdominal tenderness, no guarding/rigidity or organomegaly Psych: limited insight and normal affect/mood MSK: no joint tenderness or swelling. Digits and nails normal, no deformity. : kidney or bladder not palpable. Access: AVF Labs/imaging reviewed. Past medical history, past surgical history, family history, social history, allergy reviewed and noted as below Family Hx: no hx of CKD. Non contributory sec HTN work up neg as renin/ioana, metanephrine and renal artery doppler Objective - Vital Signs/Intake and Output Vital Signs (last 24 hours): Temp Pulse Resp BP Pulse Ox 98.1 F 98 H 20 165/83 H 95 05/24/17 07:20 05/24/17 07:20 05/24/17 07:20 05/24/17 07:20 05/24/17 07:20 Intake and Output: 05/24/17 05/24/17 06:59 18:59 Intake Total 300 Balance 300 - Medications Medications: Current Medications Amlodipine Besylate (Norvasc) 10 mg PO DAILY [facility] Last Admin: 05/24/17 09:49 Dose: 10 mg Aspirin (Aspirin Chewable) 81 mg PO DAILY [facility] Last Admin: 05/24/17 09:49 Dose: 81 mg Epoetin Oumar (Procrit) 8,000 unit IV MWF [facility] Last Admin: 05/23/17 10:49 Dose: 8,000 unit Hydralazine HCl (Apresoline) 25 mg PO Q8 [facility] Last Admin: 05/24/17 06:49 Dose: 25 mg Hydromorphone HCl (Dilaudid) 1 mg IVP Q4H PRN PRN Reason: Pain, moderate (4-7) Last Admin: 05/24/17 06:49 Dose: 1 mg Vancomycin HCl 500 mg/ Sodium (Chloride) 100 mls @ 100 mls/hr IVPB MWF [facility] PRN Reason: Protocol Last Admin: 05/23/17 08:38 Dose: 100 mls/hr Insulin Aspart (Novolog) 0 unit SC ACHS [facility] PRN Reason: Protocol Last Admin: 05/24/17 09:49 Dose: 3 unit Ondansetron HCl (Zofran Tab) 4 mg PO Q8H PRN PRN Reason: Nausea/Vomiting Rosuvastatin Calcium (Crestor) 5 mg PO HS [facility] Last Admin: 05/23/17 21:01 Dose: 5 mg Sevelamer Carbonate (Renvela) 800 mg PO TID [facility] Last Admin: 05/24/17 09:49 Dose: 800 mg Sucralfate (Carafate Tab) 1 gm PO Q12H [facility] Last Admin: 05/24/17 04:41 Dose: 1 gm - Labs Labs: 05/24/17 07:57 05/24/17 07:57 PT 10.7 SECONDS (9.7-12.2) 05/20/17 13:32 INR 1.0 05/20/17 13:32 APTT 27 SECONDS (21-34) 05/20/17 13:32
[2017-05-24] MEDS ORDERED: HYDROmorphone 1 mg/ml ISec IVP PRN (12:45)
[2017-05-24 15:21] VITALS: BP 184/84; PULSE 93; TEMP 98.3
--- NOTE | 2017-05-24 19:28 | CARD ---
APPROVED REPORT EKG Measurement Heart [id number] <Conclusion> Sinus tachycardia Nonspecific T wave abnormality Abnormal ECG
[2017-05-25] MEDS ORDERED: EPOETIN ALFA 4,000 UNIT/ML ML Dialysis IV SCH (09:00)
== END 2017-05-24 19:14 | disposition home or self-care (01) | DRG 871 ==
LOC: C.ER 11:32 → C.9E 12:34 → C.5S 13:16
PROVIDERS: ADMIT Internal Medicine Pulmonary Disease; ATTEND Internal Medicine Pulmonary Disease
PROC: 5A1D70Z Performance of Urinary Filtration, Intermittent, Less than 6 Hours Per Day (ICD-10-PCS; 2017-05-20)
PROC: 5A1D70Z Performance of Urinary Filtration, Intermittent, Less than 6 Hours Per Day (ICD-10-PCS; 2017-05-20)
PROC: B50WYZZ Plain Radiography of Dialysis Shunt/Fistula using Other Contrast (ICD-10-PCS; principal; 2017-05-23)
DX: A41.02 Sepsis due to Methicillin resistant Staphylococcus aureus (principal); J18.9 Pneumonia, unspecified organism; N18.6 End stage renal disease; I13.2 Hypertensive heart and chronic kidney disease with heart failure and with stage 5 chronic kidney disease, or end stage renal disease; N25.81 Secondary hyperparathyroidism of renal origin; E87.5 Hyperkalemia; F12.10 Cannabis abuse, uncomplicated; I50.9 Heart failure, unspecified; K31.84 Gastroparesis; Z79.4 Long term (current) use of insulin; F17.210 Nicotine dependence, cigarettes, uncomplicated; Z91.19 Patient's noncompliance with other medical treatment and regimen; Z99.2 Dependence on renal dialysis; E11.43 Type 2 diabetes mellitus with diabetic autonomic (poly)neuropathy; E11.65 Type 2 diabetes mellitus with hyperglycemia; E11.22 Type 2 diabetes mellitus with diabetic chronic kidney disease

== ENCOUNTER 2017-05-27 20:18 | Inpatient (IN) | payer MEDICARE, MEDICAID ==
--- NOTE | 2017-05-27 20:24 | C.PDOC ---
History Of Present Illness Patient presents to ED for complaints of abdominal pain associated with nausea and vomiting that began after dialysis today. PMHx includes ESRD (on dialysis MWF). Patient reports he occasionally had similar symptoms numerous times in the past. Denies fever, chills, or diarrhea. Patient is requesting pain medications. Time Seen by Provider: 05/27/17 20:23 History Per: Patient History/Exam Limitations: no limitations Onset/Duration Of Symptoms: Hrs Current Symptoms Are (Timing): Still Present Severity: Moderate Pain Scale Rating Of: 5 Location Of Pain/Discomfort: Diffuse Radiation Of Pain To:: None Associated Symptoms: Nausea, Vomiting. denies: Fever, Chills, Diarrhea, Urinary Symptoms Exacerbating Factors: None Alleviating Factors: None Last Bowel Movement: Today Recent travel outside of the [place]: No Past Medical History Reviewed: Historical Data, Nursing Documentation, Vital Signs Vital Signs: Last Vital Signs Temp 98.5 F 05/27/17 20:28 Pulse 106 H 05/27/17 20:35 Resp 15 05/27/17 20:28 BP 212/94 H 05/27/17 20:35 Pulse Ox 97 05/27/17 20:28 - Medical History PMH: Anemia, CHF, Diabetes (type I; ), Gastritis (gastroparesis), HTN, Hypercholesterolemia, Peripheral Edema, End Stage Renal Disease, Chronic Kidney Disease - [facility] Procedures (05/20/17) (11/12/16) BYPASS LEFT BRACHIAL ARTERY TO UPPER ARM VEIN, OPEN APPROACH (02/17/16) DILATION OF LEFT BASILIC VEIN, PERCUTANEOUS APPROACH (11/06/16) EXCISION OF ASCENDING COLON, ENDO, DIAGN (12/19/15) EXCISION OF DESCENDING COLON, ENDO, DIAGN (10/22/16) EXCISION OF DUODENUM, ENDO, DIAGN (03/25/16) EXCISION OF LARGE INTESTINE, ENDO, DIAGN (05/06/16) EXCISION OF MIDDLE ESOPHAGUS, ENDO, DIAGN (03/25/16) EXCISION OF STOMACH, ENDO, DIAGN (02/05/17) EXCISION OF TRANSVERSE COLON, ENDO, DIAGN (05/06/16) INSERTION OF INFUSION DEV INTO SUP VENA CAVA, PERC APPROACH (12/19/15) PERFORMANCE OF URINARY FILTRATION, MULTIPLE (10/28/16) PERFORMANCE OF URINARY FILTRATION, SINGLE (11/06/16) PLAIN RADIOGRAPHY OF DIALYSIS SHUNT USING OTH CONTRAST (05/20/17) REPOSITION LEFT BASILIC VEIN, OPEN APPROACH (05/25/16) ULTRASONOGRAPHY OF SUPERIOR VENA CAVA, GUIDANCE (12/19/15) Family History: States: No Known Family Hx, Diabetes, Hypertension - Social History Hx Tobacco Use: Yes (some days) Hx Alcohol Use: No Hx Substance Use: Yes - Immunization History Hx Tetanus Toxoid Vaccination: Yes Hx Influenza Vaccination: Yes Hx Pneumococcal Vaccination: Yes Review Of Systems Constitutional: Negative for: Fever, Chills ENT: Negative for: Throat Pain Cardiovascular: Negative for: Chest Pain Respiratory: Negative for: Shortness of Breath Gastrointestinal: Positive for: Nausea, Vomiting, Abdominal Pain. Negative for : Diarrhea Genitourinary: Negative for: Dysuria Skin: Negative for: Rash Neurological: Negative for: Weakness, Numbness Psych: Negative for: Suicidal ideation Physical Exam - Physical Exam Appears: Non-toxic, No Acute Distress Skin: Warm, Dry Head: Normacephalic Eye(s): bilateral: Normal Inspection Oral Mucosa: Moist Neck: Supple Chest: Symmetrical, No Tenderness Cardiovascular: Rhythm Regular Respiratory: No Decreased Breath Sounds, No Rales, Rhonchi (Scattered ), No Wheezing Gastrointestinal/Abdominal: Soft, Tenderness (Mild diffuse), No Distention, No Guarding, No Rebound Back: No CVA Tenderness Extremity: Normal ROM, No Pedal Edema, Other (Left arm dialysis graft, palpable thrill and bruit) Extremity: Bilateral: Atraumatic Pulses: Left Dorsalis Pedis: Normal, Right Dorsalis Pedis: Normal Neurological/Psych: Oriented x3 (Awake and Alert), Normal Speech Gait: Steady ED Course And Treatment - Laboratory Results Result Diagrams: 05/27/17 20:31 05/27/17 20:31 ECG: Interpreted By Me, Viewed By Me ECG Rhythm: Sinus Rhythm (108), Nonspecific Changes O2 Sat by Pulse Oximetry: 97 Pulse Ox Interpretation: Normal - Radiology CXR: Interpreted by Me, Viewed By Me Progress Note: Administered Ecotrin, Morphine, Pepcid, and Zofran. Ordered EKG , blood work, CXR, and urinalysis. Disposition Discussed With : Luecro Chadwick Comment: accepted the pt on his service and took over the care at 10:44 PM Doctor Will See Patient In The: Hospital Counseled Patient/Family Regarding: Studies Performed, Diagnosis - Disposition Disposition: HOSPITALIZED Disposition Time: 20:24 Condition: FAIR - POA Present On Arrival: Poor Glycemic Control - Clinical Impression Clinical Impression: CHF (congestive heart failure), ESRD (end stage renal disease) on dialysis, Gastroparesis due to DM, Nausea and vomiting - Scribe Statement The provider has reviewed the documentation as recorded by the Raquelibbrenden Lockwood All medical record entries made by the Scribe were at my direction and personally dictated by me. I have reviewed the chart and agree that the record accurately reflects my personal performance of the history, physical exam, medical decision making, and the department course for this patient. I have also personally directed, reviewed, and agree with the discharge instructions and disposition. Decision To Admit - Pt Status Changed To: Hospital Disposition Of: Inpatient - Admit Certification Admit to Inpatient:: After my assessment, the patient will require hospitalization for at least two midnights. This is because of the severity of symptoms shown, intensity of services needed, and/or the medical risk in this patient being treated as an outpatient. - InPatient: Physician Admission Certification:: After my assessment, the patient will require hospitalization for at least two midnights. This is because of the severity of symptoms shown, intensity of services needed, and/or the medical risk in this patient being treated as an outpatient. - . Bed Request Type: Regular Admitting Physician: Lucero Chadwick Patient Diagnosis: CHF (congestive heart failure), ESRD (end stage renal disease) on dialysis, Gastroparesis due to DM, Nausea and vomiting
[2017-05-27] MEDS ORDERED: Aspirin 325 mg EC Tablets PO STA (20:25)
[2017-05-27 20:28] VITALS: BMI 23.4
[2017-05-27 20:34] LABS: BASO # 0.1 K/uL (0.0-0.2); BASO % 0.5 % (0.0-2.0); EOS # 0.2 K/uL (0.0-0.7); EOS % 0.9 % (0.0-4.0); HEMOGLOBIN 10.8 g/dL (12.0-18.0); LYMPH # 1.2 K/uL (1.0-4.3); MEAN CELL VOLUME 86.6 fL (80.0-94.0); MEAN CORPUSCULAR HEMOGLOBIN 28.2 pg (27.0-31.0); MEAN CORPUSCULAR HGB CONC 32.6 g/dL (33.0-37.0); MEAN PLATELET VOLUME 8.6 fL (7.2-11.7); MONO # 0.9 K/uL (0.0-0.8); MONO % 4.8 % (0.0-10.0); NEUT # 17.2 K/uL (1.8-7.0); NEUT % 87.8 % (50.0-75.0); PLATELET COUNT 482 K/uL (130-400); RBC 3.84 Mil/uL (4.40-5.90); WHITE BLOOD COUNT 19.5 K/uL (4.8-10.8)
[2017-05-27 20:48] LABS: ALB/GLOB RATIO 0.8 (1.0-2.1); ALT/SGPT 10 U/L (21-72); AST/SGOT 36 U/L (17-59); BLOOD UREA NITROGEN 11 mg/dL (9-20); CALCIUM 9.1 mg/dl (8.6-10.4); GFR AFRICAN-AMERICAN 22; GFR NON-AFRICAN AMERICAN 18; LIPASE 35 U/L (23-300)
[2017-05-27 21:29] LABS: INR 1.1; PROTHROMBIN TIME 12.1 SECONDS (9.7-12.2)
[2017-05-27 21:46] LABS: B-TYPE NATRIURETIC PEPTIDE 35000 pg/mL (0-450)
[2017-05-27 22:15] LABS: BANDS 1 % (0-2); LYMPHOCYTE 6 % (20-40); MONOCYTE 5 % (0-10); NEUTROPHIL 88 % (50-75); PLATELET ESTIMATE SLIGHTLY INCREASED (NORMAL); TOTAL CELLS COUNTED 100
[2017-05-27 22:16] LABS: ANISOCYTOSIS SLIGHT; HYPOCHROMIC SLIGHT
[2017-05-27] MEDS ORDERED: Piperacillin/Tazobact 3.375 gm 100 ML IVPB STA (22:26)
[2017-05-27] MEDS ORDERED: Vancomycin 1 GM 1 GM/250 ML BAG IVPB SCH (22:30)
[2017-05-27] MEDS ORDERED: Piperacillin/Tazobact 3.375 gm 100 ML IVPB ONE (22:52)
[2017-05-27] MEDS ORDERED: Vancomycin 1 GM 1 GM/250 ML BAG IVPB STA (22:58)
[2017-05-27] MEDS ORDERED: Vancomycin 1 gm/NS 200 ml 1 GM/200 ML BAG IVPB STA (23:47)
[2017-05-28] MEDS: Piperacill/Tazo 3.375gm in Dex 3.375 GM/50 ML BAG IVPB SCH ×3 (05:30→21:00)
[2017-05-28] MEDS: (Novolog) Insulin Aspart, Recombinant 100 u/ml 10 ml vial SC SCH ×3 (08:24→16:35)
--- NOTE | 2017-05-28 08:44 | RAD ---
PROCEDURE: CHEST RADIOGRAPH, 1 VIEW HISTORY: chest pain COMPARISON: Karolina zina is made to 05/14/2017 FINDINGS: LUNGS: No evidence of new infiltrate or consolidation in the lungs. PLEURA: No pneumothorax or pleural fluid seen. CARDIOVASCULAR: Normal. OSSEOUS STRUCTURES: No significant abnormalities. VISUALIZED UPPER ABDOMEN: Normal. OTHER FINDINGS: None. IMPRESSION: No active disease.
[2017-05-28] MEDS ORDERED: Home Med 1 UNIT (Atorvastatin Calcium [Atorvastatin Calcium] 40 MG) PO SCH (10:00)
[2017-05-28] MEDS: Morphine 4 MG/ML VIAL IVP PRN ×2 (13:02→16:50)
[2017-05-29] MEDS: Morphine 4 MG/ML VIAL IVP PRN ×6 (00:45→22:44)
[2017-05-29] MEDS: Piperacill/Tazo 3.375gm in Dex 3.375 GM/50 ML BAG IVPB SCH ×3 (05:30→21:49)
[2017-05-29] MEDS: (Novolog) Insulin Aspart, Recombinant 100 u/ml 10 ml vial SC SCH ×4 (08:08→21:03)
[2017-05-29] MEDS ORDERED: Pneumococcal 23-Valent Vaccine IM ONE (10:00)
[2017-05-30] MEDS: Morphine 4 MG/ML VIAL IVP PRN ×5 (02:55→22:13)
[2017-05-30] MEDS: Piperacill/Tazo 3.375gm in Dex 3.375 GM/50 ML BAG IVPB SCH ×2 (06:00→13:46)
[2017-05-30] MEDS: (Novolog) Insulin Aspart, Recombinant 100 u/ml 10 ml vial SC SCH ×4 (07:52→22:14)
[2017-05-30] MEDS ORDERED: Vancomycin 500 mg Inj IVPB SCH (09:00)
--- NOTE | 2017-05-30 09:14 | PN ---
DATE: 05/29/2017 The patient on supportive care, IV fluids, pain medications. Lucero Chadwick MD
--- NOTE | 2017-05-30 09:15 | HP ---
HISTORY OF PRESENT ILLNESS: A 37-year-old male admitted to the hospital with chief complaint of abdominal pain, nausea, vomiting. The patient has a history of chronic renal failure, diabetes, gastroparesis, marijuana abuse. PHYSICAL EXAMINATION: GENERAL: The patient is awake, alert, and oriented. VITAL SIGNS: Temperature is 98, pulse 90. HEENT: Within normal limits. NECK: Supple. CHEST: Symmetrical. HEART: Regular. ABDOMEN: Soft. EXTREMITIES: No edema. IMPRESSION: The patient suffers from gastroenteritis, rule out sepsis. The patient to get bedrest, supportive care, and IV fluids. Lucero Chadwick MD
[2017-05-30] MEDS: Vancomycin 1 gm/NS 200 ml 1 GM/200 ML BAG IVPB SCH (10:38)
[2017-05-30 11:17] LABS: BASO # 0.1 K/uL (0.0-0.2); EOS # 0.5 K/uL (0.0-0.7); EOS % 3.6 % (0.0-4.0); LYMPH # 1.1 K/uL (1.0-4.3); LYMPH % 8.9 % (20.0-40.0); MEAN CELL VOLUME 87.1 fL (80.0-94.0); MEAN CORPUSCULAR HEMOGLOBIN 27.8 pg (27.0-31.0); MEAN CORPUSCULAR HGB CONC 31.9 g/dL (33.0-37.0); MEAN PLATELET VOLUME 8.7 fL (7.2-11.7); MONO # 1.4 K/uL (0.0-0.8); MONO % 11.1 % (0.0-10.0); NEUT # 9.5 K/uL (1.8-7.0); NEUT % 75.4 % (50.0-75.0); PLATELET COUNT 373 K/uL (130-400); RBC 3.61 Mil/uL (4.40-5.90); RED CELL DISTRIBUTION WIDTH 18.3 % (11.5-14.5); WHITE BLOOD COUNT 12.7 K/uL (4.8-10.8)
--- NOTE | 2017-05-30 11:23 | CP.PCM.PN ---
Subjective - Date & Time of Evaluation Date of Evaluation: 05/30/17 Time of Evaluation: 11:13 - Subjective Subjective: PGY2 progress note for Dr. Chadwick 37 year old male with past medical history of CHF, DM type 1, gastoparesis, HTN , hypercholesterolemia, ESRD on HD (MWF) presented to hospital for abdominal pain, N/V that began after dialysis. Patient has recurrent admission for similar symptoms, last one on 05/14/17-05/24/17. Patient today continues to complain of suprapubic abd pain, nausea and vomiting. Denies having any F/C, CP , SOB. Patient has history of recurrent marijuana use but states last use was 1 month ago. PMhx: stated above Objective - Vital Signs/Intake and Output Vital Signs (last 24 hours): Temp Pulse Resp BP Pulse Ox 98.2 F 85 20 155/74 H 97 05/30/17 08:15 05/30/17 08:15 05/30/17 08:15 05/30/17 08:15 05/30/17 08:15 Intake and Output: 05/30/17 05/30/17 06:59 18:59 Intake Total 1135 Balance 1135 - Medications Medications: Current Medications Amlodipine Besylate (Norvasc) 10 mg PO DAILY [facility] Last Admin: 05/30/17 10:38 Dose: 10 mg Aspirin (Aspirin Chewable) 81 mg PO DAILY [facility] Last Admin: 05/30/17 10:38 Dose: 81 mg Heparin Sodium (Porcine) (Heparin) 5,000 units SC Q8 [facility] Last Admin: 05/30/17 05:00 Dose: Not Given Hydralazine HCl (Apresoline) 25 mg PO Q6H [facility] Last Admin: 05/30/17 10:38 Dose: 25 mg Piperacillin Sod/Tazobactam Sod (Zosyn 3.375 Gm Iv Premix) 3.375 gm in 50 mls @ 100 mls/hr IVPB Q8H [facility] PRN Reason: Protocol Last Admin: 05/30/17 06:00 Dose: 100 mls/hr Vancomycin/Sodium Chloride (Vancomycin 1 Gm/Ns 200 Ml) 1 gm in 200 mls @ 133 mls/hr IVPB [facility] Stop: 06/04/17 09:01 Last Admin: 05/30/17 10:38 Dose: 133 mls/hr Insulin Aspart (Novolog) 0 unit SC ACHS [facility] PRN Reason: Protocol Last Admin: 05/30/17 07:52 Dose: 4 unit Metoclopramide HCl (Reglan) 5 mg IVP ACTID [facility] Morphine Sulfate (Morphine) 2 mg IVP Q4 PRN PRN Reason: Pain, severe (8-10) Last Admin: 05/30/17 07:53 Dose: 2 mg Ondansetron HCl (Zofran Inj) 4 mg IVP Q6H PRN PRN Reason: Nausea/Vomiting Last Admin: 05/29/17 15:29 Dose: 4 mg Rosuvastatin Calcium (Crestor) 10 mg PO HS [facility] Last Admin: 05/29/17 21:49 Dose: 10 mg Sevelamer Carbonate (Renvela) 800 mg PO TIDCC [facility] Last Admin: 05/30/17 08:08 Dose: 800 mg Sucralfate (Carafate Tab) 1 gm PO Q12H [facility] Last Admin: 05/30/17 10:38 Dose: 1 gm - Labs Labs: 05/27/17 20:31 05/27/17 20:31 PT 12.1 SECONDS (9.7-12.2) 05/27/17 20:35 INR 1.1 05/27/17 20:35 APTT 30 SECONDS (21-34) 05/27/17 20:35 - Constitutional Appears: Non-toxic, No Acute Distress - Head Exam Head Exam: ATRAUMATIC - ENT Exam ENT Exam: Mucous Membranes Moist - Respiratory Exam Respiratory Exam: Clear to Ausculation Bilateral. absent: Accessory Muscle Use , Rales, Rhonchi, Wheezes, Respiratory Distress - Cardiovascular Exam Cardiovascular Exam: REGULAR RHYTHM, +S1, +S2 - GI/Abdominal Exam GI & Abdominal Exam: Soft, Tenderness, Normal Bowel Sounds. absent: Distended, Firm, Guarding, Rigid, Organomegaly - Extremities Exam Extremities Exam: absent: Pedal Edema, Tenderness - Neurological Exam Neurological Exam: Alert, Awake, Oriented x3 - Psychiatric Exam Psychiatric exam: Normal Affect, Normal Mood - Skin Skin Exam: Dry, Intact, Normal Color, Warm Assessment and Plan - Assessment and Plan (Free Text) Assessment: Gastroparesis Patient with poorly controlled diabetes reglan 5mg IVP AC Carafate Zofran Recommended to pt to eat small light meals History of MRSA Bacteremia - On past admission on 05/14/17, pt was positive for MRSA in blood cultures. Pt was treated with abx at the time - On this admission, pt was placed on Vancomycin and zosyn - Blood cultures are negative on this admission. Will consider d/cing the abx. IDDM Accuchecks ACHS ISS Will hold home insulin dose until pt is tolerating PO intake ASA 81mg PO Daily Crestor 10 mg PO Daily HTN Norvasc 10 mg PO Daily Hydralazine 25 mg po q6 continue to monitor Will consider restarting lisinopril CKD on HD MWF [employer] Supervisor, Dr. Larsen, help appreciated Renal diet Renvela 160mg PO TID HD M// Prophylaxis SCDs/ heparin Carafate and protonix All managements and orders per Dr. Chadwick
[2017-05-30 11:36] LABS: CALCIUM 8.2 mg/dl (8.6-10.4)
[2017-05-30] MEDS: Pantoprazole 40 mg EC Tab PO SCH (11:39)
[2017-05-30 12:19] LABS: ANISOCYTOSIS MODERATE; EOSINOPHIL 2 % (0-4); LYMPHOCYTE 8 % (20-40); MONOCYTE 10 % (0-10); NEUTROPHIL 80 % (50-75); PLATELET ESTIMATE NORMAL (NORMAL); TOTAL CELLS COUNTED 100
[2017-05-30 12:20] LABS: HYPOCHROMIC SLIGHT
--- NOTE | 2017-05-30 14:23 | CP.PCM.CON ---
History of Present Illness - History of Present Illness History of Present Illness: Nephrology Consultation Note Assessment: stable recent MRSA sepsis recurrent nausea/vomiting, Cyclic Emesis Syndrome, marijuana abuse, gastroparesis Diabetic chronic Kidney Disease (E11.22) Hypertensive Chronic Kidney Disease (I12.0) End stage renal disease (N18.6) dependence on hemodialysis (Z99.2) (MWF) via AVF Anemia (D64.9), Hyperphosphatemia (E83.39), Secondary Hyperparathyroidism (E21.1 ), HTN (I12.0) Plan: dialysis today as per MWF schedule as ordered. Continue with Nephrovite 1 tab/ day. continue with MOHINI with HD, last Hb 10 Increased phos binders, last phos 3.8 BP control with meds as ordered. no ACEI/ARB due to hyperkalemia episodes intermittently/frequently Glycemic control, Dialysis consistent diet Further work up/management as per primary team Dose meds/antibiotics for ESRD status. Avoid fleets enema/magnesium based laxatives. pt to abstain from marijuana last admission: DINO neg for endocarditis, Doppler/USG of AV access: no report of localized collection Thanks for allowing me to participate in care of your patient. Will follow patient with you. Please call if any Qs. Dr Brenton Larsen Office: [phone] HPI: Pt is a 36 y/o M with hx of ESRD on hemodialysis (MWF) via AVF, chronic anemia, hyperphosphatemia, secondary hyperparathyroidism, Diabetes Mellitus, hypertension, recurrent nausea/vomiting and multiple hospitalization for same, recently hospitalized with MRSA sepsis and pain abdomen came back with pain abdomen recurrence since tuesday. Denies chest pain, palpitation, leg swelling c/o pain upper abdomen ROS: Constitutional Symptoms: No Recent Weight Changes Cardiovascular: No chest pain. No palpitations. Pulmonary: No cough. says breathing heavy (always) Gastrointestinal: c/o abdominal pain. c/o nausea. improved vomiting. Denies change in bowel habits. Denies Bleeding All other negative. Physical Examination: seen on HD General Appearance: comfortable, in no acute respiratory distress, co- operative. Vitals reviewed and noted as below Head; Atraumatic, normocephalic ENT: no ulcers no thrush. Tongue is midline. Oropharynx: no rash or ulcers. EYES: Pupils are equal, round and reactive to light accommodation. Eye muscles and extraocular movement intact. Sclera is anicteric. Neck; supple no lymphadenopathy, no thyromegaly or bruit Lungs: Normal respiratory rate/effort. Breath sounds bilateral equal and clear Heart: normal rate. s1s2 normal. No rub or gallop. Extremities: no edema. No varicose veins Neurological: Patient is alert, awake and oriented to person, place and time. No focal deficit. Strength bilateral appropriate and equal Skin: Warm and dry. Normal turgor. No rash. Palpitation: Normal elasticity for age Abdomen: Abdomen is soft. Bowel sounds +. There is no abdominal tenderness (and pt response out of proportion to palpation), no guarding/rigidity or organomegaly Psych: limited insight and normal affect/mood MSK: no joint tenderness or swelling. Digits and nails normal, no deformity. : kidney or bladder not palpable. Access: AVF Labs/imaging reviewed. Past medical history, past surgical history, family history, social history, allergy reviewed and noted as below Family Hx: no hx of CKD. Non contributory sec HTN work up neg as renin/ioana, metanephrine and renal artery doppler Past Patient History - Infectious Disease Hx of Infectious Diseases: None - Past Medical History & Family History Past Medical History?: Yes - Past Social History Smoking Status: Current Some Days Smoker - CARDIAC Hx Cardiac Disorders: Yes Hx Congestive Heart Failure: Yes Hx Hypercholesterolemia: Yes Hx Hypertension: Yes Hx Peripheral Edema: Yes - PULMONARY Hx Respiratory Disorders: No - NEUROLOGICAL Hx Neurological Disorder: No - HEENT Hx HEENT Problems: Yes Hx Cataracts: Yes - RENAL Hx Chronic Kidney Disease: Yes Hx Dialysis: Yes Type of Dialysis Access: hemodialysis Date of Last Dialysis Treatment: 05/27/17 - ENDOCRINE/METABOLIC Hx Endocrine Disorders: Yes Hx Diabetes Mellitus Type 2: Yes - HEMATOLOGICAL/ONCOLOGICAL Hx Blood Disorders: Yes Hx Anemia: Yes - INTEGUMENTARY Hx Dermatological Problems: No - MUSCULOSKELETAL/RHEUMATOLOGICAL Hx Musculoskeletal Disorders: No Hx Falls: Yes - GASTROINTESTINAL Hx Gastrointestinal Disorders: Yes Hx Gastritis: Yes (gastroparesis) - GENITOURINARY/GYNECOLOGICAL Hx Genitourinary Disorders: No - PSYCHIATRIC Hx Psychophysiologic Disorder: Yes Hx Substance Use: Yes (Marijuana) - SURGICAL HISTORY Hx Surgeries: Yes Hx Cataract Extraction: Yes (bilateral) Hx Vascular Surgery: Yes Hx Vascular Access Device: Yes Other/Comment: Hx RT.PERMACATH INSERTION 12/30. 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 Hx UNDESCENDED TESTES LT. REMOVED DURING CHILDHOOD - ANESTHESIA Hx Anesthesia: Yes Hx Anesthesia Reactions: No Hx Malignant Hyperthermia: No Meds Allergies/Adverse Reactions: Allergies Allergy/AdvReac Type Severity Reaction Status Date / Time No Known Allergies Allergy Verified 05/27/17 20:33 - Medications Medications: Current Medications Amlodipine Besylate (Norvasc) 10 mg PO DAILY [facility] Last Admin: 05/30/17 10:38 Dose: 10 mg Aspirin (Aspirin Chewable) 81 mg PO DAILY [facility] Last Admin: 05/30/17 10:38 Dose: 81 mg Epoetin Oumar (Procrit) 4,000 [place] [facility] [place]arin Sodium (Porcine) (Heparin) 5,000 units SC Q8 [facility] Last Admin: 05/30/17 13:46 Dose: Not Given Hydralazine HCl (Apresoline) 25 mg PO Q6H [facility] Last Admin: 05/30/17 10:38 Dose: 25 mg Vancomycin/Sodium Chloride (Vancomycin 1 Gm/Ns 200 Ml) 1 gm in 200 mls @ 133 mls/hr [place]PB [facility] [place]: 06/04/17 09:01 Last Admin: 05/30/17 10:38 Dose: 133 mls/hr Piperacillin Sod/Tazobactam Sod (Zosyn 2.25 Gm Iv Premix) 2.25 gm in 50 mls @ 100 mls/hr IVPB Q8H [facility] PRN Reason: Protocol Insulin Aspart (Novolog) 0 unit SC ACHS [facility] PRN Reason: Protocol Last Admin: 05/30/17 11:29 Dose: 2 unit Metoclopramide HCl (Reglan) 5 mg IVP ACTID [facility] Last Admin: 05/30/17 11:38 Dose: 5 mg Morphine Sulfate (Morphine) 2 mg IVP Q4 PRN PRN Reason: Pain, severe (8-10) Last Admin: 05/30/17 12:40 Dose: 2 mg Ondansetron HCl (Zofran Inj) 4 mg IVP Q6H PRN PRN Reason: Nausea/Vomiting Last Admin: 05/29/17 15:29 Dose: 4 mg Pantoprazole Sodium (Protonix Ec Tab) 40 mg PO DAILY [facility] Last Admin: 05/30/17 11:39 Dose: 40 mg Rosuvastatin Calcium (Crestor) 10 mg PO HS [facility] Last Admin: 05/29/17 21:49 Dose: 10 mg Sevelamer Carbonate (Renvela) 800 mg PO TIDCC [facility] Last Admin: 05/30/17 11:29 Dose: 800 mg Sucralfate (Carafate Tab) 1 gm PO Q12H [facility] Last Admin: 05/30/17 10:38 Dose: 1 gm Results - Vital Signs Recent Vital Signs: Last Vital Signs Temp 97.7 F 05/30/17 13:35 Pulse 83 05/30/17 13:52 Resp 16 05/30/17 13:52 BP 161/89 H 05/30/17 13:52 Pulse Ox 97 05/30/17 13:35 - Labs Result Diagrams: 05/30/17 11:04 05/30/17 11:04 Labs: Laboratory Results - last 24 hr 05/29/17 05/29/17 05/30/17 16:05 20:59 07:13 WBC RBC Hgb Hct MCV MCH MCHC RDW Plt Count MPV Neut % (Auto) Lymph % (Auto) [place] % (Auto) Eos % (Auto) Baso % (Auto) Neut # (Auto) Lymph # (Auto) [place] # (Auto) Eos # (Auto) Baso # (Auto) Neutrophils % (Manual) Lymphocytes % (Manual) Monocytes % (Manual) Eosinophils % (Manual) Platelet Estimate Hypochromasia (manual) Anisocytosis (manual) Sodium Potassium Chloride Carbon Dioxide Anion Gap BUN Creatinine Est GFR ( Amer) Est GFR (Non-Af Amer) POC Glucose (mg/dL) 175 H 248 H 322 H Random Glucose Calcium 05/30/17 05/30/17 05/30/17 11:00 11:04 11:04 WBC 12.7 H RBC 3.61 L Hgb 10.0 L Hct 31.4 L MCV 87.1 MCH 27.8 MCHC 31.9 L RDW 18.3 H Plt Count 373 D MPV 8.7 Neut % (Auto) 75.4 H Lymph % (Auto) 8.9 L [place] % (Auto) 11.1 H Eos % (Auto) 3.6 Baso % (Auto) 1.0 Neut # (Auto) 9.5 H Lymph # (Auto) 1.1 [place] # (Auto) 1.4 H Eos # (Auto) 0.5 Baso # (Auto) 0.1 Neutrophils % (Manual) 80 H Lymphocytes % (Manual) 8 L Monocytes % (Manual) 10 Eosinophils % (Manual) 2 Platelet Estimate Normal Hypochromasia (manual) Slight Anisocytosis (manual) Moderate Sodium 135 Potassium 4.2 Chloride 88 L Carbon Dioxide 31 H Anion Gap 20 BUN 35 H Creatinine 9.1 H* D Est GFR ( Amer) 8 Est GFR (Non-Af Amer) 7 POC Glucose (mg/dL) 205 H Random Glucose 220 H Calcium 8.2 L
[2017-05-30] MEDS: Piperacill/Tazo 2.25gm in Dex 2.25 GM/50 ML BAG IVPB SCH ×2 (16:24→22:31)
--- NOTE | 2017-05-30 20:37 | CARD ---
APPROVED REPORT EKG Measurement Heart [id number] <Conclusion> Sinus tachycardia Biatrial enlargement Nonspecific T wave abnormality Abnormal ECG
[2017-05-31] MEDS: Morphine 4 MG/ML VIAL IVP PRN ×6 (02:12→22:34)
[2017-05-31 06:35] LABS: BASO # 0.1 K/uL (0.0-0.2); BASO % 0.7 % (0.0-2.0); EOS # 0.4 K/uL (0.0-0.7); HEMOGLOBIN 9.8 g/dL (12.0-18.0); LYMPH # 1.4 K/uL (1.0-4.3); LYMPH % 12.9 % (20.0-40.0); MEAN CELL VOLUME 87.1 fL (80.0-94.0); MEAN CORPUSCULAR HEMOGLOBIN 28.7 pg (27.0-31.0); MONO # 1.2 K/uL (0.0-0.8); MONO % 11.4 % (0.0-10.0); NEUT # 7.5 K/uL (1.8-7.0); RBC 3.42 Mil/uL (4.40-5.90); RED CELL DISTRIBUTION WIDTH 18.7 % (11.5-14.5); WHITE BLOOD COUNT 10.5 K/uL (4.8-10.8)
[2017-05-31] MEDS: Piperacill/Tazo 2.25gm in Dex 2.25 GM/50 ML BAG IVPB SCH ×3 (06:47→22:30)
--- NOTE | 2017-05-31 07:13 | CP.PCM.PN ---
Subjective - Date & Time of Evaluation Date of Evaluation: 05/31/17 Time of Evaluation: 09:11 - Subjective Subjective: PGY 2 Medicine Note- Dr. Chadwick's service Patient seen and examined in no acute distress. Patient states that he had dialysis yesterday. Patient admits to diffuse abdominal pain which is unchanged. He denies nausea, vomiting, diarrhea or constipation. Objective - Vital Signs/Intake and Output Vital Signs (last 24 hours): Temp Pulse Resp BP Pulse Ox 98.1 F 90 20 154/79 H 96 05/31/17 00:00 05/31/17 04:00 05/31/17 00:00 05/31/17 04:00 05/31/17 00:00 Intake and Output: 05/31/17 05/31/17 06:59 18:59 Intake Total 530 Balance 530 - Medications Medications: Current Medications Amlodipine Besylate (Norvasc) 10 mg PO DAILY [facility] Last Admin: 05/30/17 10:38 Dose: 10 mg Aspirin (Aspirin Chewable) 81 mg PO DAILY [facility] Last Admin: 05/30/17 10:38 Dose: 81 mg Epoetin Oumar (Procrit) 4,000 unit IV [facility] [place] Heparin Sodium (Porcine) (Heparin) 5,000 units SC Q8 [facility] Last Admin: 05/31/17 06:47 Dose: Not Given Heparin Sodium (Porcine) (Heparin) 2,000 units IVP [facility] [place] Hydralazine HCl (Apresoline) 25 mg PO Q6H [facility] Last Admin: 05/31/17 04:10 Dose: 25 mg Vancomycin/Sodium Chloride (Vancomycin 1 Gm/Ns 200 Ml) 1 gm in 200 mls @ 133 mls/hr IVPB [facility] [place] Stop: 06/04/17 09:01 Last Admin: 05/30/17 10:38 Dose: 133 mls/hr Piperacillin Sod/Tazobactam Sod (Zosyn 2.25 Gm Iv Premix) 2.25 gm in 50 mls @ 100 mls/hr IVPB Q8H [facility] PRN Reason: Protocol Last Admin: 05/31/17 06:47 Dose: 100 mls/hr Insulin Aspart (Novolog) 0 unit SC ACHS [facility] PRN Reason: Protocol Last Admin: 05/30/17 22:14 Dose: 2 unit Metoclopramide HCl (Reglan) 5 mg IVP ACTID [facility] Last Admin: 05/30/17 17:30 Dose: Not Given Morphine Sulfate (Morphine) 2 mg IVP Q4 PRN PRN Reason: Pain, severe (8-10) Last Admin: 05/31/17 06:16 Dose: 2 mg Ondansetron HCl (Zofran Inj) 4 mg IVP Q6H PRN PRN Reason: Nausea/Vomiting Last Admin: 05/30/17 17:42 Dose: 4 mg Pantoprazole Sodium (Protonix Ec Tab) 40 mg PO DAILY [facility] Last Admin: 05/30/17 11:39 Dose: 40 mg Rosuvastatin Calcium (Crestor) 10 mg PO HS [facility] Last Admin: 05/30/17 22:13 Dose: 10 mg Sevelamer Carbonate (Renvela) 800 mg PO TIDCC [facility] Last Admin: 05/30/17 17:40 Dose: 800 mg Sucralfate (Carafate Tab) 1 gm PO Q12H [facility] Last Admin: 05/30/17 22:13 Dose: 1 gm - Labs Labs: 05/31/17 06:29 05/30/17 11:04 PT 12.1 SECONDS (9.7-12.2) 05/27/17 20:35 INR 1.1 05/27/17 20:35 APTT 30 SECONDS (21-34) 05/27/17 20:35 - Constitutional Appears: Non-toxic, No Acute Distress - Head Exam Head Exam: ATRAUMATIC, NORMAL INSPECTION - Eye Exam Eye Exam: EOMI, Normal appearance, PERRL Pupil Exam: NORMAL ACCOMODATION - ENT Exam ENT Exam: Mucous Membranes Moist - Neck Exam Neck Exam: Full ROM - Respiratory Exam Respiratory Exam: NORMAL BREATHING PATTERN - Cardiovascular Exam Cardiovascular Exam: +S1, +S2 - GI/Abdominal Exam GI & Abdominal Exam: Soft, Tenderness, Normal Bowel Sounds - Extremities Exam Extremities Exam: Full ROM - Back Exam Back Exam: Full ROM - Neurological Exam Neurological Exam: Alert, Awake, Oriented x3 - Psychiatric Exam Psychiatric exam: Depressed (apears), Flat Affect - Skin Skin Exam: Dry, Intact, Warm. absent: Normal Color Assessment and Plan - Assessment and Plan (Free Text) Assessment: Gastroparesis Patient with poorly controlled diabetes Reglan 5mg IVP AC Carafate Zofran Recommendations to eat small meals at a time slowly. ESRD on HD MWF [employer] [place], Dr. Larsen, help appreciated Renal diet Renvela 160mg PO TID HD M/W/ IDDM Accuchecks ACHS ISS ASA 81mg PO Daily Crestor 10 mg PO Daily HTN Norvasc 10 mg PO Daily Hydralazine 25 mg po q6 continue to monitor Will consider restarting lisinopril History of MRSA Bacteremia - On past admission on 05/14/17, pt was positive for MRSA in blood cultures. Pt was treated with abx at the time - Last Set of blood cultures were Negative May 18, and . - On this admission, pt was placed on Vancomycin and zosyn. - Per [employer] [place] [employer], patient to continue antibiotics for an additional 4 weeks. Prophylaxis SCDs/ heparin Carafate and protonix Discharge Instructions Pt medically stable for discharge home. Follow up with Dr. Chadwick within one week. Follow up with Dr. Larsen within one week of discharge. Continue HD three times a week according to schedule. Patient to continue antibiotics during dialysis. Patient referred to correction services at home with resumption of care for Diabetes Management If symptoms return, go to the emergency room. Instructions explained to patient who is aware. Discussed with attending. All management and orders per Dr. Chadwick
[2017-05-31] MEDS: (Novolog) Insulin Aspart, Recombinant 100 u/ml 10 ml vial SC SCH ×4 (08:16→22:00)
[2017-05-31 08:24] LABS: ALB/GLOB RATIO 0.9 (1.0-2.1); ALBUMIN 3.5 g/dL (3.5-5.0); CALCIUM 8.2 mg/dl (8.6-10.4)
[2017-05-31] MEDS: Pantoprazole 40 mg EC Tab PO SCH (10:12)
--- NOTE | 2017-05-31 11:17 | CP.PCM.PN ---
Subjective - Date & Time of Evaluation Date of Evaluation: 05/31/17 Time of Evaluation: 11:09 - Subjective Subjective: Nephrology Consultation Note Assessment: stable recent MRSA sepsis recurrent nausea/vomiting, Cyclic Emesis Syndrome, marijuana abuse, gastroparesis Diabetic chronic Kidney Disease (E11.22) Hypertensive Chronic Kidney Disease (I12.0) End stage renal disease (N18.6) dependence on hemodialysis (Z99.2) (MWF) via AVF Anemia (D64.9), Hyperphosphatemia (E83.39), Secondary Hyperparathyroidism (E21.1 ), HTN (I12.0) Plan: dialysis tomorrow as per MWF schedule as ordered. Continue with Nephrovite 1 tab /day. continue with MOHINI with HD, last Hb 9.8 Increased phos binders, last phos 3.8 BP control with meds as ordered. no ACEI/ARB due to hyperkalemia episodes intermittently/frequently Glycemic control, Dialysis consistent diet Further work up/management as per primary team Dose meds/antibiotics for ESRD status. Avoid fleets enema/magnesium based laxatives. pt to abstain from marijuana last admission: DINO neg for endocarditis, Doppler/USG of AV access: no report of localized collection continue abx as vanco post HD ~ 4 weeks pt planned for d/c home today, stable from renal perspective Thanks for allowing me to participate in care of your patient. Will follow patient with you. Please call if any Qs. d/w team Dr Brenton Larsen Office: [phone] HPI: Pt is a 36 y/o M with hx of ESRD on hemodialysis (MWF) via AVF, chronic anemia, hyperphosphatemia, secondary hyperparathyroidism, Diabetes Mellitus, hypertension, recurrent nausea/vomiting and multiple hospitalization for same, recently hospitalized with MRSA sepsis and pain abdomen came back with pain abdomen recurrence since tuesday. Denies chest pain, palpitation, leg swelling c/o pain upper abdomen (chronic) ROS: Constitutional Symptoms: No Recent Weight Changes Cardiovascular: No chest pain. No palpitations. Pulmonary: No cough. says breathing heavy (always) Gastrointestinal: c/o abdominal pain. no nausea. improved vomiting. Denies change in bowel habits. Denies Bleeding All other negative. Physical Examination: General Appearance: comfortable, in no acute respiratory distress, co- operative. Vitals reviewed and noted as below Head; Atraumatic, normocephalic ENT: no ulcers no thrush. Tongue is midline. Oropharynx: no rash or ulcers. EYES: Pupils are equal, round and reactive to light accommodation. Eye muscles and extraocular movement intact. Sclera is anicteric. Neck; supple no lymphadenopathy, no thyromegaly or bruit Lungs: Normal respiratory rate/effort. Breath sounds bilateral equal and clear Heart: normal rate. s1s2 normal. No rub or gallop. Extremities: no edema. No varicose veins Neurological: Patient is alert, awake and oriented to person, place and time. No focal deficit. Strength bilateral appropriate and equal Skin: Warm and dry. Normal turgor. No rash. Palpitation: Normal elasticity for age Abdomen: Abdomen is soft. Bowel sounds +. There is no abdominal tenderness (and pt response out of proportion to palpation), no guarding/rigidity or organomegaly Psych: limited insight and normal affect/mood MSK: no joint tenderness or swelling. Digits and nails normal, no deformity. : kidney or bladder not palpable. Access: AVF Labs/imaging reviewed. Past medical history, past surgical history, family history, social history, allergy reviewed and noted as below Family Hx: no hx of CKD. Non contributory sec HTN work up neg as renin/ioana, metanephrine and renal artery doppler Objective - Vital Signs/Intake and Output Vital Signs (last 24 hours): Temp Pulse Resp BP Pulse Ox 98.7 F 83 20 151/77 H 97 05/31/17 07:53 05/31/17 07:53 05/31/17 07:53 05/31/17 07:53 05/31/17 07:53 Intake and Output: 05/31/17 05/31/17 06:59 18:59 Intake Total 530 410 Balance 530 410 - Medications Medications: Current Medications Amlodipine Besylate (Norvasc) 10 mg PO DAILY [facility] Last Admin: 05/31/17 10:12 Dose: 10 mg Aspirin (Aspirin Chewable) 81 mg PO DAILY [facility] Last Admin: 05/31/17 10:12 Dose: 81 mg Epoetin Oumar (Procrit) 4,000 unit IV MWF [facility] Heparin Sodium (Porcine) (Heparin) 5,000 units SC Q8 [facility] Last Admin: 05/31/17 06:47 Dose: Not Given Heparin Sodium (Porcine) (Heparin) 2,000 [place] [facility] [place]dralazine HCl (Apresoline) 25 mg PO Q6H [facility] Last Admin: 05/31/17 10:12 Dose: 25 mg Vancomycin/Sodium Chloride (Vancomycin 1 Gm/Ns 200 Ml) 1 gm in 200 mls @ 133 mls/hr [place] [facility] [place]: 06/04/17 09:01 Last Admin: 05/30/17 10:38 Dose: 133 mls/hr Piperacillin Sod/Tazobactam Sod (Zosyn 2.25 Gm Iv Premix) 2.25 gm in 50 mls @ 100 mls/hr IVPB Q8H [facility] PRN Reason: Protocol Last Admin: 05/31/17 06:47 Dose: 100 mls/hr Insulin Aspart (Novolog) 0 unit SC ACHS [facility] PRN Reason: Protocol Last Admin: 05/31/17 08:16 Dose: 5 unit Metoclopramide HCl (Reglan) 5 mg IVP ACTID [facility] Last Admin: 05/31/17 08:22 Dose: 5 mg Morphine Sulfate (Morphine) 2 mg IVP Q4 PRN PRN Reason: Pain, severe (8-10) Last Admin: 05/31/17 10:12 Dose: 2 mg Ondansetron HCl (Zofran Inj) 4 mg IVP Q6H PRN PRN Reason: Nausea/Vomiting Last Admin: 05/30/17 17:42 Dose: 4 mg Pantoprazole Sodium (Protonix Ec Tab) 40 mg PO DAILY [facility] Last Admin: 05/31/17 10:12 Dose: 40 mg Rosuvastatin Calcium (Crestor) 10 mg PO HS [facility] Last Admin: 05/30/17 22:13 Dose: 10 mg Sevelamer Carbonate (Renvela) 800 mg PO TIDCC [facility] Last Admin: 05/31/17 08:16 Dose: 800 mg Sucralfate (Carafate Tab) 1 gm PO Q12H [facility] Last Admin: 05/31/17 10:12 Dose: 1 gm - Labs Labs: 05/31/17 06:29 05/31/17 06:29 PT 12.1 SECONDS (9.7-12.2) 05/27/17 20:35 INR 1.1 05/27/17 20:35 APTT 30 SECONDS (21-34) 05/27/17 20:35
[2017-06-01] MEDS: Morphine 4 MG/ML VIAL IVP PRN ×4 (02:29→14:21)
[2017-06-01] MEDS: Piperacill/Tazo 2.25gm in Dex 2.25 GM/50 ML BAG IVPB SCH ×2 (06:34→15:31)
--- NOTE | 2017-06-01 07:42 | CP.PCM.PN ---
Subjective - Date & Time of Evaluation Date of Evaluation: 06/01/17 Time of Evaluation: 08:00 - Subjective Subjective: PGY 2 Medicine Note- Dr. Chadwick's service Patient seen and examined in no acute distress. Patient states that he had dialysis yesterday. Patient admits to diffuse abdominal pain which is unchanged. He denies nausea, vomiting, diarrhea or constipation. Patient is to have dialysis today then be discharged after. Objective - Vital Signs/Intake and Output Vital Signs (last 24 hours): Temp Pulse Resp BP Pulse Ox 98.4 F 71 20 166/85 H 97 06/01/17 00:00 06/01/17 00:00 06/01/17 00:00 06/01/17 00:00 06/01/17 00:00 Intake and Output: 06/01/17 06/01/17 06:59 18:59 Intake Total 290 Balance 290 - Medications Medications: Current Medications Amlodipine Besylate (Norvasc) 10 mg PO DAILY COUNT [facility]CLUDES [facility] Last Admin: 05/31/17 10:12 Dose: 10 mg Aspirin (Aspirin Chewable) 81 mg PO DAILY [facility] Last Admin: 05/31/17 10:12 Dose: 81 mg Epoetin Oumar (Procrit) 4,000 unit [place] [facility] [place] Heparin Sodium (Porcine) (Heparin) 5,000 units SC Q8 [facility] Last Admin: 06/01/17 06:00 Dose: Not Given Heparin Sodium (Porcine) (Heparin) 2,000 units IVP [facility] [place] Hydralazine HCl (Apresoline) 25 mg PO Q6H [facility]CLUDES [facility] Last Admin: 06/01/17 05:18 Dose: 25 mg Vancomycin/Sodium Chloride (Vancomycin 1 Gm/Ns 200 Ml) 1 gm in 200 mls @ 133 mls/hr [place]PB [facility] [place] Stop: 06/04/17 09:01 Last Admin: 05/30/17 10:38 Dose: 133 mls/hr Piperacillin Sod/Tazobactam Sod (Zosyn 2.25 Gm Iv Premix) 2.25 gm in 50 mls @ 100 mls/hr IVPB Q8H [facility]CLUDES [facility] PRN Reason: Protocol Last Admin: 06/01/17 06:34 Dose: 100 mls/hr Insulin Aspart (Novolog) 0 unit SC ACHS COUNT [facility]CLUDES [facility] PRN Reason: Protocol Last Admin: 05/31/17 22:00 Dose: Not Given Metoclopramide HCl (Reglan) 5 mg IVP ACTID [facility]CLUD[facility] Last Admin: 05/31/17 16:30 Dose: 5 mg Morphine Sulfate (Morphine) 2 mg IVP Q4 PRN PRN Reason: Pain, severe (8-10) Last Admin: 06/01/17 06:33 Dose: 2 mg Ondansetron HCl (Zofran Inj) 4 mg IVP Q6H PRN PRN Reason: Nausea/Vomiting Last Admin: 05/30/17 17:42 Dose: 4 mg Pantoprazole Sodium (Protonix Ec Tab) 40 mg PO DAILY [facility] Last Admin: 05/31/17 10:12 Dose: 40 mg Rosuvastatin Calcium (Crestor) 10 mg PO HS [facility] Last Admin: 05/31/17 21:21 Dose: 10 mg Sevelamer Carbonate (Renvela) 800 mg PO TIDCC COUNT [facility]CLUD[facility] Last Admin: 05/31/17 17:00 Dose: 800 mg Sucralfate (Carafate Tab) 1 gm PO Q12H [facility] Last Admin: 05/31/17 22:32 Dose: 1 gm - Labs Labs: 05/31/17 06:29 05/31/17 06:29 PT 12.1 SECONDS (9.7-12.2) 05/27/17 20:35 INR 1.1 05/27/17 20:35 APTT 30 SECONDS (21-34) 05/27/17 20:35 - Constitutional Appears: Non-toxic, No Acute Distress, Unkempt - Head Exam Head Exam: ATRAUMATIC, NORMAL INSPECTION - Eye Exam Eye Exam: EOMI, PERRL Pupil Exam: NORMAL ACCOMODATION - Respiratory Exam Respiratory Exam: Clear to Ausculation Bilateral, NORMAL BREATHING PATTERN. absent: Respiratory Distress - Cardiovascular Exam Cardiovascular Exam: REGULAR RHYTHM, +S1, +S2 - GI/Abdominal Exam GI & Abdominal Exam: Soft, Normal Bowel Sounds. absent: Distended, Firm, Guarding, Tenderness - Back Exam Back Exam: NORMAL INSPECTION - Neurological Exam Neurological Exam: Alert, Awake - Psychiatric Exam Psychiatric exam: Depressed, Flat Affect Assessment and Plan - Assessment and Plan (Free Text) Assessment: Gastroparesis Patient with poorly controlled diabetes Reglan 5mg IVP AC Carafate Zofran Recommendations to eat small meals at a time slowly. ESRD on HD [facility] Sort Line, Dr. Larsen, help appreciated Renal diet Renvela 160mg PO TID HD M/W/F IDDM Accuchecks ACHS ISS ASA 81mg PO Daily Crestor 10 mg PO Daily HTN Norvasc 10 mg PO Daily Hydralazine 25 mg po q6 continue to monitor Will consider restarting lisinopril History of MRSA Bacteremia - On past admission on 05/14/17, pt was positive for MRSA in blood cultures. Pt was treated with abx at the time - Last Set of blood cultures were Negative May 18, and . - On this admission, pt was placed on Vancomycin and zosyn. - Per Sort Line, patient to continue antibiotics for an additional 4 weeks. Prophylaxis SCDs/ heparin Carafate and protonix Discharge Instructions Pt medically stable for discharge home. Follow up with Dr. Chadwick within one week. Follow up with Dr. Larsen within one week of discharge. Continue HD three times a week according to schedule. Patient to continue antibiotics during dialysis. Patient referred to residential services at home with resumption of care for Diabetes Management If symptoms return, go to the emergency room. Instructions explained to patient who is aware. Discussed with attending. All management and orders per Dr. Chadwick
[2017-06-01] MEDS: (Novolog) Insulin Aspart, Recombinant 100 u/ml 10 ml vial SC SCH ×3 (08:24→16:30)
[2017-06-01] MEDS: Pantoprazole 40 mg EC Tab PO SCH (09:58)
--- NOTE | 2017-06-01 11:07 | CP.PCM.PN ---
Subjective - Date & Time of Evaluation Date of Evaluation: 06/01/17 Time of Evaluation: 11:05 - Subjective Subjective: Nephrology Consultation Note Assessment: stable recent MRSA sepsis ? 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 Continue with Nephrovite 1 tab/ day. continue with MOHINI with HD, last Hb 9.8 Increased phos binders, last phos 3.8 BP control with meds as ordered. no ACEI/ARB due to hyperkalemia episodes intermittently/frequently Glycemic control, Dialysis consistent diet Further work up/management as per primary team Dose meds/antibiotics for ESRD status. Avoid fleets enema/magnesium based laxatives. pt to abstain from marijuana last admission: DINO neg for endocarditis, Doppler/USG of AV access: no report of localized collection continue abx as vanco post HD ~ 4 weeks since last blood cx neg (till jun 15 2017), had called and informed outpt HD unit about duration of Abx. pt planned for d/c home today, stable from renal perspective Thanks for allowing me to participate in care of your patient. Will follow patient with you. Please call if any Qs. d/w team Dr Brenton Larsen Office: [phone] HPI: Pt is a 36 y/o M with hx of ESRD on hemodialysis (MWF) via AVF, chronic anemia, hyperphosphatemia, secondary hyperparathyroidism, Diabetes Mellitus, hypertension, recurrent nausea/vomiting and multiple hospitalization for same, recently hospitalized with MRSA sepsis and pain abdomen came back with pain abdomen recurrence since tuesday. Denies chest pain, palpitation, leg swelling c/o pain upper abdomen (chronic) ROS: Constitutional Symptoms: No Recent Weight Changes Cardiovascular: No chest pain. No palpitations. Pulmonary: No cough. says breathing heavy (always) Gastrointestinal: improved abdominal pain. no nausea. improved vomiting. Denies change in bowel habits. Denies Bleeding All other negative. Physical Examination: General Appearance: comfortable, in no acute respiratory distress, co- operative. Vitals reviewed and noted as below Head; Atraumatic, normocephalic ENT: no ulcers no thrush. Tongue is midline. Oropharynx: no rash or ulcers. EYES: Pupils are equal, round and reactive to light accommodation. Eye muscles and extraocular movement intact. Sclera is anicteric. Neck; supple no lymphadenopathy, no thyromegaly or bruit Lungs: Normal respiratory rate/effort. Breath sounds bilateral equal and clear Heart: normal rate. s1s2 normal. No rub or gallop. Extremities: no edema. No varicose veins Neurological: Patient is alert, awake and oriented to person, place and time. No focal deficit. Strength bilateral appropriate and equal Skin: Warm and dry. Normal turgor. No rash. Palpitation: Normal elasticity for age Abdomen: Abdomen is soft. Bowel sounds +. There is no abdominal tenderness (and pt response usually out of proportion to palpation), no guarding/rigidity or organomegaly Psych: limited insight and normal affect/mood MSK: no joint tenderness or swelling. Digits and nails normal, no deformity. : kidney or bladder not palpable. Access: AVF Labs/imaging reviewed. Past medical history, past surgical history, family history, social history, allergy reviewed and noted as below Family Hx: no hx of CKD. Non contributory sec HTN work up neg as renin/ioana, metanephrine and renal artery doppler Objective - Vital Signs/Intake and Output Vital Signs (last 24 hours): Temp Pulse Resp BP Pulse Ox 98.6 F 89 20 162/80 H 97 06/01/17 08:00 06/01/17 08:00 06/01/17 08:00 06/01/17 08:00 06/01/17 08:00 Intake and Output: 06/01/17 06/01/17 06:59 18:59 Intake Total 290 Balance 290 - Medications Medications: Current Medications Amlodipine Besylate (Norvasc) 10 mg PO DAILY [facility] Last Admin: 06/01/17 09:58 Dose: 10 mg Aspirin (Aspirin Chewable) 81 mg PO DAILY [facility] Last Admin: 06/01/17 09:58 Dose: 81 mg Epoetin Oumar (Procrit) 4,000 unit IV [facility] [place] Heparin Sodium (Porcine) (Heparin) 5,000 units SC Q8 [facility] Last Admin: 06/01/17 06:00 Dose: Not Given Heparin Sodium (Porcine) (Heparin) 2,000 units IVP [facility] [place] Hydralazine HCl (Apresoline) 25 mg PO Q6H [facility] Last Admin: 06/01/17 09:58 Dose: 25 mg Vancomycin/Sodium Chloride (Vancomycin 1 Gm/Ns 200 Ml) 1 gm in 200 mls @ 133 mls/hr IVPB [facility] [place] Stop: 06/04/17 09:01 Last Admin: 05/30/17 10:38 Dose: 133 mls/hr Piperacillin Sod/Tazobactam Sod (Zosyn 2.25 Gm Iv Premix) 2.25 gm in 50 mls @ 100 mls/hr IVPB Q8H [facility] PRN Reason: Protocol Last Admin: 06/01/17 06:34 Dose: 100 mls/hr Insulin Aspart (Novolog) 0 unit SC ACHS [facility] PRN Reason: Protocol Last Admin: 06/01/17 08:24 Dose: 4 unit Metoclopramide HCl (Reglan) 5 mg IVP ACTID [facility] Last Admin: 06/01/17 08:27 Dose: 5 mg Morphine Sulfate (Morphine) 2 mg IVP Q4 PRN PRN Reason: Pain, severe (8-10) Last Admin: 06/01/17 10:14 Dose: 2 mg Ondansetron HCl (Zofran Inj) 4 mg IVP Q6H PRN PRN Reason: Nausea/Vomiting Last Admin: 05/30/17 17:42 Dose: 4 mg Pantoprazole Sodium (Protonix Ec Tab) 40 mg PO DAILY [facility] Last Admin: 06/01/17 09:58 Dose: 40 mg Rosuvastatin Calcium (Crestor) 10 mg PO HS [facility] Last Admin: 05/31/17 21:21 Dose: 10 mg Sevelamer Carbonate (Renvela) 800 mg PO TIDCC [facility] Last Admin: 06/01/17 08:24 Dose: 800 mg Sucralfate (Carafate Tab) 1 gm PO Q12H [facility] Last Admin: 06/01/17 09:58 Dose: 1 gm - Labs Labs: 05/31/17 06:29 05/31/17 06:29 PT 12.1 SECONDS (9.7-12.2) 05/27/17 20:35 INR 1.1 05/27/17 20:35 APTT 30 SECONDS (21-34) 05/27/17 20:35
[2017-06-01 14:49] LABS: BASO # 0.2 K/uL (0.0-0.2); BASO % 1.4 % (0.0-2.0); EOS # 0.5 K/uL (0.0-0.7); EOS % 4.7 % (0.0-4.0); HEMOGLOBIN 8.8 g/dL (12.0-18.0); LYMPH # 1.3 K/uL (1.0-4.3); LYMPH % 10.9 % (20.0-40.0); MEAN CELL VOLUME 87.4 fL (80.0-94.0); MEAN CORPUSCULAR HEMOGLOBIN 28.5 pg (27.0-31.0); MEAN CORPUSCULAR HGB CONC 32.6 g/dL (33.0-37.0); MEAN PLATELET VOLUME 8.7 fL (7.2-11.7); MONO # 1.2 K/uL (0.0-0.8); MONO % 10.6 % (0.0-10.0); NEUT # 8.4 K/uL (1.8-7.0); NEUT % 72.4 % (50.0-75.0); RBC 3.1 Mil/uL (4.40-5.90); RED CELL DISTRIBUTION WIDTH 18.4 % (11.5-14.5); WHITE BLOOD COUNT 11.6 K/uL (4.8-10.8)
[2017-06-01 15:07] LABS: CALCIUM 8.5 mg/dl (8.6-10.4)
[2017-06-01] MEDS: Vancomycin 1 gm/NS 200 ml 1 GM/200 ML BAG IVPB SCH (15:24)
[2017-06-01] MEDS: EPOETIN ALFA 4,000 UNIT/ML ML Dialysis IV SCH ×2 (15:33→15:34)
[2017-06-01 18:31] VITALS: BP 127/65; PULSE 89; RESP 20; TEMP 98.2; O2SAT 98
== END 2017-06-01 20:30 | disposition home or self-care (01) | DRG 73 ==
LOC: C.ER 20:18 → C.3T 22:36
PROVIDERS: ADMIT Internal Medicine Pulmonary Disease; ATTEND Internal Medicine Pulmonary Disease
PROC: 5A1D70Z Performance of Urinary Filtration, Intermittent, Less than 6 Hours Per Day (ICD-10-PCS; principal; 2017-05-30)
PROC: 5A1D70Z Performance of Urinary Filtration, Intermittent, Less than 6 Hours Per Day (ICD-10-PCS; 2017-06-01)
DX: E11.43 Type 2 diabetes mellitus with diabetic autonomic (poly)neuropathy (principal); N18.6 End stage renal disease; I13.2 Hypertensive heart and chronic kidney disease with heart failure and with stage 5 chronic kidney disease, or end stage renal disease; N25.81 Secondary hyperparathyroidism of renal origin; E11.22 Type 2 diabetes mellitus with diabetic chronic kidney disease; E11.65 Type 2 diabetes mellitus with hyperglycemia; I50.9 Heart failure, unspecified; F17.210 Nicotine dependence, cigarettes, uncomplicated; Z99.2 Dependence on renal dialysis; Z79.4 Long term (current) use of insulin; F12.10 Cannabis abuse, uncomplicated; K20.9 Esophagitis, unspecified; K31.84 Gastroparesis; Z86.14 Personal history of Methicillin resistant Staphylococcus aureus infection

== ENCOUNTER 2017-06-02 15:38 | Inpatient (IN) | payer MEDICARE, MEDICAID ==
[2017-06-02] MEDS ORDERED: Morphine 60 mg SR Tab PO STA (16:02)
--- NOTE | 2017-06-02 16:07 | C.PDOC ---
History Of Present Illness 37 y/o male, w/PMhx of IDDM brought to the ER for evaluation of hypoglycemia. Paient states that he took insulin but he did not eat anything because of his chronic gastroperesis. He found that his blood sugar levels were low so he decided to call 911. Patient was administered Glucagon and D50 and his blood sugar levels became normal. He is complaining of chronic abdominal pain. Otherwise, patient denies having fever,chills, vomiting, and change in bowel movements. Time Seen by Provider: 06/02/17 15:46 Chief Complaint (Nursing): Altered Mental Status History Per: Patient History/Exam Limitations: no limitations Onset/Duration Of Symptoms: Days Current Symptoms Are (Timing): Still Present Severity: Moderate Past Medical History Reviewed: Historical Data, Nursing Documentation, Vital Signs Vital Signs: Last Vital Signs Temp 97.7 F 06/02/17 18:55 Pulse 76 06/02/17 18:19 Resp 18 06/02/17 18:19 BP 140/72 06/02/17 18:19 Pulse Ox 99 06/02/17 18:19 - Medical History PMH: Anemia, CHF, Diabetes (type I; ), Gastritis (gastroparesis), HTN, Hypercholesterolemia, Peripheral Edema, End Stage Renal Disease, Chronic Kidney Disease Denies: HIV, Kidney Stones Other Surgeries: HX of surgeries - [facility] Procedures (05/27/17) (11/12/16) BYPASS LEFT BRACHIAL ARTERY TO UPPER ARM VEIN, OPEN APPROACH (02/17/16) DILATION OF LEFT BASILIC VEIN, PERCUTANEOUS APPROACH (11/06/16) EXCISION OF ASCENDING COLON, ENDO, DIAGN (12/19/15) EXCISION OF DESCENDING COLON, ENDO, DIAGN (10/22/16) EXCISION OF DUODENUM, ENDO, DIAGN (03/25/16) EXCISION OF LARGE INTESTINE, ENDO, DIAGN (05/06/16) EXCISION OF MIDDLE ESOPHAGUS, ENDO, DIAGN (03/25/16) EXCISION OF STOMACH, ENDO, DIAGN (02/05/17) EXCISION OF TRANSVERSE COLON, ENDO, DIAGN (05/06/16) INSERTION OF INFUSION DEV INTO SUP VENA CAVA, PERC APPROACH (12/19/15) PERFORMANCE OF URINARY FILTRATION, MULTIPLE (10/28/16) PERFORMANCE OF URINARY FILTRATION, SINGLE (11/06/16) PLAIN RADIOGRAPHY OF DIALYSIS SHUNT USING OTH CONTRAST (05/20/17) REPOSITION LEFT BASILIC VEIN, OPEN APPROACH (05/25/16) ULTRASONOGRAPHY OF SUPERIOR VENA CAVA, GUIDANCE (12/19/15) Family History: States: Diabetes, Hypertension - Social History Hx Tobacco Use: Yes (some days) Hx Alcohol Use: No Hx Substance Use: Yes (Marijuana) - Immunization History Hx Tetanus Toxoid Vaccination: Yes Hx Influenza Vaccination: Yes Hx Pneumococcal Vaccination: Yes Review Of Systems Except As Marked, All Systems Reviewed And Found Negative. Constitutional: Negative for: Fever, Chills Cardiovascular: Negative for: Chest Pain Respiratory: Negative for: Cough, Shortness of Breath Gastrointestinal: Positive for: Nausea, Abdominal Pain (chronic). Negative for : Vomiting, Diarrhea, Constipation Genitourinary: Negative for: Dysuria, Hematuria Psych: Negative for: Anxiety, Depression Physical Exam - Physical Exam Appears: Well, Other (eating sandwich) Skin: Normal Color, Warm, Dry Head: Atraumatic, Normacephalic Eye(s): bilateral: Normal Inspection, PERRL, EOMI Nose: Normal Oral Mucosa: Moist Neck: Supple Chest: Symmetrical Cardiovascular: Rhythm Regular Respiratory: Normal Breath Sounds, No Rales, No Rhonchi, No Wheezing Gastrointestinal/Abdominal: Soft, No Tenderness Extremity: Other (AV fistula to left arm with (+) thrill) Neurological/Psych: Oriented x3, Normal Speech, Normal Motor ED Course And Treatment - Laboratory Results Result Diagrams: 06/02/17 17:03 06/02/17 17:03 O2 Sat by Pulse Oximetry: 100 (RA) Pulse Ox Interpretation: Normal Medical Decision Making Medical Decision Making: Plan: --Glucose POC --Morphine PO for chronic abdominal pain Progress: Blood glucose levels will be monitored. Patient euglycemic on arrival. Hypothermic. Zechariah hugger apploed. Labs show leukocytosis. Cxray negative. Patient makes only minimal urine. Spoke to Dr. Chadwick and will admit to Dr. Chadwick for leukocytosis, hypothermia and hypothermia. Reports that patient has diagnosis of MRSA and is on already on home vancomycin. Requesting vancomycin and zosyn given after cultures. 7:22PM On reevaluation, temperature has normalized. Continues to be AAOx3 Disposition - Disposition Disposition: HOSPITALIZED Disposition Time: 19:22 Condition: FAIR - Clinical Impression Clinical Impression: Leukocytosis, Hypothermia, Hypoglycemia - Scribe Statement The provider has reviewed the documentation as recorded by the Scribe Summen Neri Provider Attestation: All medical record entries made by the Js were at my direction and personally dictated by me. I have reviewed the chart and agree that the record accurately reflects my personal performance of the history, physical exam, medical decision making, and the department course for this patient. I have also personally directed, reviewed, and agree with the discharge instructions and disposition.
[2017-06-02] MEDS ORDERED: Morphine 30 mg SR Tab PO ONE (16:27)
[2017-06-02 17:06] LABS: BASO # 0.1 K/uL (0.0-0.2); BASO % 0.5 % (0.0-2.0); EOS # 0.1 K/uL (0.0-0.7); EOS % 0.7 % (0.0-4.0); HEMOGLOBIN 9.8 g/dL (12.0-18.0); LYMPH # 0.8 K/uL (1.0-4.3); MEAN CELL VOLUME 87.3 fL (80.0-94.0); MEAN CORPUSCULAR HEMOGLOBIN 27.8 pg (27.0-31.0); MEAN CORPUSCULAR HGB CONC 31.8 g/dL (33.0-37.0); MEAN PLATELET VOLUME 8.7 fL (7.2-11.7); MONO # 1.1 K/uL (0.0-0.8); MONO % 5.5 % (0.0-10.0); NEUT # 17.3 K/uL (1.8-7.0); NEUT % 89.3 % (50.0-75.0); PLATELET COUNT 354 K/uL (130-400); RBC 3.53 Mil/uL (4.40-5.90); RED CELL DISTRIBUTION WIDTH 18.7 % (11.5-14.5); WHITE BLOOD COUNT 19.3 K/uL (4.8-10.8)
--- NOTE | 2017-06-02 17:23 | RAD ---
HISTORY: Hypothermia. COMPARISON: 05/27/2017 FINDINGS: LUNGS: No active pulmonary disease. PLEURA: No significant pleural effusion identified, no pneumothorax apparent. CARDIOVASCULAR: Normal. OSSEOUS STRUCTURES: No significant abnormalities. VISUALIZED UPPER ABDOMEN: Normal. OTHER FINDINGS: None. IMPRESSION: No active disease. No significant interval change compared to the prior examination(s).
[2017-06-02 17:24] LABS: ALB/GLOB RATIO 0.8 (1.0-2.1); ALBUMIN 3.5 g/dL (3.5-5.0); CALCIUM 9.2 mg/dl (8.6-10.4)
[2017-06-02 17:30] LABS: TROPONIN I 0.012 ng/mL (0.00-0.120)
[2017-06-02 17:43] LABS: BANDS 2 % (0-2); LYMPHOCYTE 3 % (20-40); MONOCYTE 3 % (0-10); NEUTROPHIL 92 % (50-75); PLATELET ESTIMATE NORMAL (NORMAL); TOTAL CELLS COUNTED 100
[2017-06-02 17:44] LABS: ANISOCYTOSIS SLIGHT; HYPOCHROMIC SLIGHT; LARGE PLATELETS PRESENT; POIKILOCYTOSIS SLIGHT; TARGET CELLS SLIGHT; TOXIC GRANULATION PRESENT
[2017-06-02] MEDS ORDERED: Piperacillin/Tazobact 3.375 GM in Sodium Chloride 100 ML IVPB STA (17:44)
[2017-06-02] MEDS ORDERED: Piperacillin/Tazobact 3.375 gm 100 ML IVPB ONE (18:06)
[2017-06-02] MEDS ORDERED: Vancomycin 1 GM 1 GM/250 ML BAG IVPB ONE (18:07)
[2017-06-02] MEDS ORDERED: Glucagon Recombinant 1 mg Inj IM PRN (20:03)
[2017-06-02] MEDS ORDERED: Dextrose 50% SYRINGE Inj (50 ml) IVP PRN (20:03)
[2017-06-02] MEDS: (Novolin R) Insulin Human Regular 100 units/ml vial SC SCH (22:28)
[2017-06-02] MEDS: Oxycodone/Acetaminophen 5/325 mg Tab PO PRN (22:30)
[2017-06-03] MEDS: Oxycodone/Acetaminophen 5/325 mg Tab PO PRN ×3 (02:34→21:09)
--- NOTE | 2017-06-03 07:33 | CP.PCM.PN ---
Subjective - Date & Time of Evaluation Date of Evaluation: 06/03/17 Time of Evaluation: 10:11 - Subjective Subjective: PGY 2 Medicine Note- Dr. Chadwick's service Patient seen and examined en route to dialysis. Prior to admission, patient apparently took insulin yesterday without eating meals. Patient checked his blood sugar and it was noted to be low. He then called 911 whereupon he was told that he was hypoglycemic. EMS administered D50 at that time. Patient denied acute complaints. Objective - Vital Signs/Intake and Output Vital Signs (last 24 hours): Temp Pulse Resp BP Pulse Ox 98.4 F 90 18 155/85 H 99 06/02/17 23:05 06/02/17 23:05 06/02/17 23:05 06/02/17 23:05 06/02/17 23:05 Intake and Output: 06/03/17 06/03/17 06:59 18:59 Intake Total 480 Balance 480 - Medications Medications: Current Medications Amlodipine Besylate (Norvasc) 10 mg PO DAILY [facility] Aspirin (Aspirin Chewable) 81 mg PO DAILY [facility] Dextrose (Dextrose 50% Inj) 0 ml IVP .STAT PRN; Protocol PRN Reason: Hypoglycemia Protocol Dextrose (Glutose 15) 0 gm PO .ONCE PRN; Protocol PRN Reason: Hypoglycemia Protocol Glucagon (Glucagen Diagnostic Kit) 0 mg IM .STAT PRN; Protocol PRN Reason: Hypoglycemia Protocol Hydralazine HCl (Apresoline) 25 mg PO QID [facility] Last Admin: 06/02/17 22:28 Dose: 25 mg Dextrose (Dextrose 5% In Water 1000 Ml) 1,000 mls @ 0 mls/hr IV .Q0M PRN; Protocol; Per Protocol PRN Reason: Hypoglycemia Protocol Insulin Human Regular (Novolin R) 0 unit SC ACHS [facility] PRN Reason: Protocol Last Admin: 06/02/17 22:28 Dose: 2 unit Ondansetron HCl (Zofran Inj) 4 mg IVP DAILY@ONCE PRN PRN Reason: Nausea/Vomiting Oxycodone/Acetaminophen (Percocet 5/325 Mg Tab) 1 tab PO Q4H PRN PRN Reason: Pain, severe (8-10) Stop: 06/05/17 22:31 Last Admin: 06/03/17 06:45 Dose: 1 tab Sevelamer Carbonate (Renvela) 800 mg PO TIDCC [facility] Sucralfate (Carafate Tab) 1 gm PO Q12 [facility] - Labs Labs: 06/02/17 17:03 06/02/17 17:03 - Constitutional Appears: Non-toxic, No Acute Distress - Head Exam Head Exam: ATRAUMATIC - Eye Exam Eye Exam: EOMI, PERRL Pupil Exam: NORMAL ACCOMODATION, PERRL - ENT Exam ENT Exam: Mucous Membranes Moist - Neck Exam Neck Exam: Full ROM - Respiratory Exam Respiratory Exam: NORMAL BREATHING PATTERN - Cardiovascular Exam Cardiovascular Exam: +S1, +S2 - GI/Abdominal Exam GI & Abdominal Exam: Soft, Normal Bowel Sounds - Extremities Exam Extremities Exam: Full ROM, Normal Capillary Refill, Normal Inspection - Back Exam Back Exam: Full ROM, NORMAL INSPECTION - Neurological Exam Neurological Exam: Alert, Awake, CN II-XII Intact, Oriented x3 - Psychiatric Exam Psychiatric exam: Normal Affect, Normal Mood - Skin Skin Exam: Dry, Normal Color, Warm Assessment and Plan - Assessment and Plan (Free Text) Assessment: Gastroparesis Patient with poorly controlled diabetes Reglan 5mg IVP AC Carafate Zofran Recommendations to eat small meals at a time slowly. ESRD on HD [facility] Metal Polisher, Dr. Larsen, help appreciated Renal diet Renvela 160mg PO TID HD M/W/ IDDM Accuchecks ACHS ISS ASA 81mg PO Daily Crestor 10 mg PO Daily HTN Norvasc 10 mg PO Daily Hydralazine 25 mg po q6 continue to monitor Will consider restarting lisinopril History of MRSA Bacteremia - On past admission on 05/14/17, pt was positive for MRSA in blood cultures. Pt was treated with abx at the time - Final blood cultures were Negative May 18, and . - On this admission, pt was placed on Vancomycin - Per [employer], patient to continue antibiotics for an additional 4 weeks. Prophylaxis SCDs/ heparin Carafate and protonix Discussed with attending. Planning and management per Dr. Chadwick.
[2017-06-03] MEDS: (Novolin R) Insulin Human Regular 100 units/ml vial SC SCH ×4 (08:35→21:07)
[2017-06-03] MEDS ORDERED: Morphine 15 mg SR Tab PO PRN (09:17)
[2017-06-03 10:49] LABS: BASO # 0.2 K/uL (0.0-0.2); BASO % 1.3 % (0.0-2.0); EOS # 0.3 K/uL (0.0-0.7); EOS % 2.1 % (0.0-4.0); HEMOGLOBIN 9.3 g/dL (12.0-18.0); LYMPH # 1.7 K/uL (1.0-4.3); LYMPH % 10.5 % (20.0-40.0); MEAN CELL VOLUME 86.5 fL (80.0-94.0); MEAN CORPUSCULAR HEMOGLOBIN 27.8 pg (27.0-31.0); MEAN CORPUSCULAR HGB CONC 32.1 g/dL (33.0-37.0); MEAN PLATELET VOLUME 9.5 fL (7.2-11.7); MONO # 1.7 K/uL (0.0-0.8); MONO % 10.3 % (0.0-10.0); NEUT # 12.2 K/uL (1.8-7.0); NEUT % 75.8 % (50.0-75.0); RBC 3.36 Mil/uL (4.40-5.90); RED CELL DISTRIBUTION WIDTH 18.5 % (11.5-14.5); WHITE BLOOD COUNT 16.1 K/uL (4.8-10.8)
[2017-06-03 11:11] LABS: ALB/GLOB RATIO 0.9 (1.0-2.1); ALBUMIN 3.8 g/dL (3.5-5.0); CALCIUM 9.4 mg/dl (8.6-10.4)
[2017-06-03] MEDS: EPOETIN ALFA 4,000 UNIT/ML ML Dialysis IV SCH (11:18)
--- NOTE | 2017-06-03 13:44 | CP.PCM.CON ---
History of Present Illness - History of Present Illness History of Present Illness: Nephrology Consultation Note Assessment: stable Uncontrolled DM with hypoglycemia and hyperglycemia recent MRSA sepsis ? 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 Continue with Nephrovite 1 tab/ day. continue with MOHINI with HD, last Hb 9.8 continue with phos binders, last phos 3.8 BP control with meds as ordered. no ACEI/ARB due to hyperkalemia episodes intermittently/frequently Glycemic control, Dialysis consistent diet Further work up/management as per primary team Dose meds/antibiotics for ESRD status. Avoid fleets enema/magnesium based laxatives. pt to abstain from marijuana recents admissions: DINO neg for endocarditis, Doppler/USG of AV access: no report of localized collection continue abx as vanco post HD ~ 4 weeks since last blood cx neg (till jun 15 2017), had called and informed outpt HD unit about duration of Abx. Thanks for allowing me to participate in care of your patient. Will follow patient with you. Please call if any Qs. Dr Brenton Larsen Office: [phone] HPI: Pt is a 36 y/o M with hx of ESRD on hemodialysis (MWF) via AVF, chronic anemia, hyperphosphatemia, secondary hyperparathyroidism, Diabetes Mellitus, hypertension, recurrent nausea/vomiting and multiple hospitalization for same, recently hospitalized with MRSA sepsis and pain abdomen came back with low blood sugar. Denies chest pain, palpitation, leg swelling c/o pain upper abdomen (chronic) ROS: Constitutional Symptoms: No Recent Weight Changes Cardiovascular: No chest pain. No palpitations. Pulmonary: No cough. says breathing okay Gastrointestinal: reports chronic abdominal pain. c/o nausea. c/o vomiting. Denies change in bowel habits. Denies Bleeding All other negative except as in HPI. Physical Examination: seen on HD General Appearance: comfortable, in no acute respiratory distress, co- operative. Vitals reviewed and noted as below Head; Atraumatic, normocephalic ENT: no ulcers no thrush. Tongue is midline. Oropharynx: no rash or ulcers. EYES: Pupils are equal, round and reactive to light accommodation. Eye muscles and extraocular movement intact. Sclera is anicteric. Neck; supple no lymphadenopathy, no thyromegaly or bruit Lungs: Normal respiratory rate/effort. Breath sounds bilateral equal and clear Heart: normal rate. s1s2 normal. No rub or gallop. Extremities: no edema. No varicose veins Neurological: Patient is alert, awake and oriented to person, place and time. No focal deficit. Strength bilateral appropriate and equal Skin: Warm and dry. Normal turgor. No rash. Palpitation: Normal elasticity for age Abdomen: Abdomen is soft. Bowel sounds +. There is no abdominal tenderness (and pt response usually out of proportion to palpation), no guarding/rigidity or organomegaly Psych: limited insight and normal affect/mood MSK: no joint tenderness or swelling. Digits and nails normal, no deformity. : kidney or bladder not palpable. Access: AVF Labs/imaging reviewed. Past medical history, past surgical history, family history, social history, allergy reviewed and noted as below Family Hx: no hx of CKD. Non contributory sec HTN work up neg as renin/ioana, metanephrine and renal artery doppler Past Patient History - Infectious Disease Hx of Infectious Diseases: None - Past Medical History & Family History Past Medical History?: Yes - Past Social History Smoking Status: Current Some Days Smoker - CARDIAC Hx Congestive Heart Failure: Yes Hx Hypercholesterolemia: Yes Hx Hypertension: Yes Hx Peripheral Edema: Yes - PULMONARY Hx Respiratory Disorders: No - NEUROLOGICAL Hx Neurological Disorder: No - HEENT Hx HEENT Problems: Yes Hx Cataracts: Yes - RENAL Hx Chronic Kidney Disease: Yes Hx Kidney Stones: No - ENDOCRINE/METABOLIC Hx Endocrine Disorders: Yes Hx Diabetes Mellitus Type 2: Yes - HEMATOLOGICAL/ONCOLOGICAL Hx Anemia: Yes Hx Human Immunodeficiency Virus (HIV): No - INTEGUMENTARY Hx Dermatological Problems: No - MUSCULOSKELETAL/RHEUMATOLOGICAL Hx Musculoskeletal Disorders: No Hx Falls: Yes - GASTROINTESTINAL Hx Gastritis: Yes (gastroparesis) - GENITOURINARY/GYNECOLOGICAL Hx Genitourinary Disorders: No - PSYCHIATRIC Hx Substance Use: Yes (Marijuana) - SURGICAL HISTORY Hx Surgeries: Yes Hx Cataract Extraction: Yes (bilateral) Hx Vascular Surgery: Yes Hx Vascular Access Device: Yes Other/Comment: Hx RT.PERMACATH INSERTION 12/30. 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 Hx UNDESCENDED TESTES LT. REMOVED DURING CHILDHOOD - ANESTHESIA Hx Anesthesia: Yes Hx Anesthesia Reactions: No Hx Malignant Hyperthermia: No Meds Allergies/Adverse Reactions: Allergies Allergy/AdvReac Type Severity Reaction Status Date / Time No Known Allergies Allergy Verified 06/02/17 15:58 - Medications Medications: Current Medications Amlodipine Besylate (Norvasc) 10 mg PO DAILY [facility] Last Admin: 06/03/17 09:48 Dose: 10 mg Aspirin (Aspirin Chewable) 81 mg PO DAILY [facility] Last Admin: 06/03/17 09:48 Dose: 81 mg Dextrose (Dextrose 50% Inj) 0 ml IVP .STAT PRN; Protocol PRN Reason: Hypoglycemia Protocol Dextrose (Glutose 15) 0 gm PO .ONCE PRN; Protocol PRN Reason: Hypoglycemia Protocol Epoetin Oumar (Procrit) 4,[address] [facility] [place] Last Admin: 06/03/17 11:18 Dose: 4,000 unit Glucagon (Glucagen Diagnostic Kit) 0 mg IM .STAT PRN; Protocol PRN Reason: Hypoglycemia Protocol Heparin Sodium (Porcine) (Heparin) 5,000 units SC Q12 [facility] Last Admin: 06/03/17 09:52 Dose: Not Given Heparin Sodium (Porcine) (Heparin) 2,[address] [facility] [place] Hydralazine HCl (Apresoline) 25 mg PO QID [facility] Last Admin: 06/03/17 09:48 Dose: 25 mg Dextrose (Dextrose 5% In Water 1000 Ml) 1,000 mls @ 0 mls/hr IV .Q0M PRN; Protocol; Per Protocol PRN Reason: Hypoglycemia Protocol Insulin Human Regular (Novolin R) 0 unit [facility] PRN Reason: Protocol Last Admin: 06/03/17 11:44 Dose: Not Given Morphine Sulfate (Morphine Extended Release Tab) 15 mg PO Q12 PRN PRN Reason: Pain, moderate (4-7) Last Admin: 06/03/17 09:48 Dose: 15 mg Ondansetron HCl (Zofran Inj) 4 mg IVP DAILY@ONCE PRN PRN Reason: Nausea/Vomiting Last Admin: 06/03/17 10:08 Dose: 4 mg Sevelamer Carbonate (Renvela) 800 mg PO TIDCC [facility] Last Admin: 06/03/17 11:47 Dose: Not Given Sucralfate (Carafate Tab) 1 gm PO Q12 [facility] Last Admin: 06/03/17 09:48 Dose: 1 gm Vitamin B Complex/Vit C/Folic Acid (Nephro-Yomi) 1 tab PO 0800 [facility] Results - Vital Signs Recent Vital Signs: Last Vital Signs Temp 97.7 F 06/03/17 10:52 Pulse 86 06/03/17 13:30 Resp 16 06/03/17 10:52 BP 160/77 H 06/03/17 13:30 Pulse Ox 98 06/03/17 07:48 - Labs Result Diagrams: 06/03/17 10:45 06/03/17 10:45 Labs: Laboratory Results - last 24 hr 06/02/17 06/02/17 06/02/17 15:52 17:03 17:03 WBC 19.3 H D RBC 3.53 L Hgb 9.8 L Hct 30.8 L MCV 87.3 MCH 27.8 MCHC 31.8 L RDW 18.7 H Plt Count 354 MPV 8.7 Neut % (Auto) 89.3 H Lymph % (Auto) 4.0 L Vance % (Auto) 5.5 Eos % (Auto) 0.7 Baso % (Auto) 0.5 Neut # (Auto) 17.3 H Lymph # (Auto) 0.8 L Vance # (Auto) 1.1 H Eos # (Auto) 0.1 Baso # (Auto) 0.1 Neutrophils % (Manual) 92 H Band Neutrophils % 2 Lymphocytes % (Manual) 3 L Monocytes % (Manual) 3 Toxic Granulation Present Platelet Estimate Normal Large Platelets Present Hypochromasia (manual) Slight Poikilocytosis (manual Slight Anisocytosis (manual) Slight Target Cells Slight Sodium 139 Potassium 4.6 Chloride 97 L Carbon Dioxide 27 Anion Gap 20 BUN 35 H Creatinine 6.9 H Est GFR ( Amer) 11 Est GFR (Non-Af Amer) 9 POC Glucose (mg/dL) 158 H Random Glucose 204 H Calcium 9.2 Phosphorus 4.2 Magnesium 1.9 Total Bilirubin 0.4 AST 21 ALT 12 L D Alkaline Phosphatase 94 Troponin I 0.0120 Total Protein 7.7 Albumin 3.5 Globulin 4.2 H Albumin/Globulin Ratio 0.8 L 06/02/17 06/03/17 06/03/17 21:29 02:00 06:22 WBC RBC Hgb Hct MCV MCH MCHC RDW Plt Count MPV Neut % (Auto) Lymph % (Auto) Vance % (Auto) Eos % (Auto) Baso % (Auto) Neut # (Auto) Lymph # (Auto) Vance # (Auto) Eos # (Auto) Baso # (Auto) Neutrophils % (Manual) Band Neutrophils % Lymphocytes % (Manual) Monocytes % (Manual) Toxic Granulation Platelet Estimate Large Platelets Hypochromasia (manual) Poikilocytosis (manual Anisocytosis (manual) Target Cells Sodium Potassium Chloride Carbon Dioxide Anion Gap BUN Creatinine Est GFR ( Amer) Est GFR (Non-Af Amer) POC Glucose (mg/dL) 327 H 406 H* 387 H Random Glucose Calcium Phosphorus Magnesium Total Bilirubin AST ALT Alkaline Phosphatase Troponin I Total Protein Albumin Globulin Albumin/Globulin Ratio 06/03/17 06/03/17 06/03/17 10:45 10:45 11:25 WBC 16.1 H RBC 3.36 L Hgb 9.3 L Hct 29.0 L MCV 86.5 MCH 27.8 MCHC 32.1 L RDW 18.5 H Plt Count 369 MPV 9.5 Neut % (Auto) 75.8 H Lymph % (Auto) 10.5 L Vance % (Auto) 10.3 H Eos % (Auto) 2.1 Baso % (Auto) 1.3 Neut # (Auto) 12.2 H Lymph # (Auto) 1.7 Vance # (Auto) 1.7 H Eos # (Auto) 0.3 Baso # (Auto) 0.2 Neutrophils % (Manual) Band Neutrophils % Lymphocytes % (Manual) Monocytes % (Manual) Toxic Granulation Platelet Estimate Large Platelets Hypochromasia (manual) Poikilocytosis (manual Anisocytosis (manual) Target Cells Sodium 138 Potassium 4.8 Chloride 92 L Carbon Dioxide 26 Anion Gap 24 H BUN 50 H Creatinine 8.3 H* D Est GFR ( Amer) 9 Est GFR (Non-Af Amer) 7 POC Glucose (mg/dL) 185 H Random Glucose 335 H Calcium 9.4 Phosphorus Magnesium Total Bilirubin 0.4 AST 23 ALT 10 L Alkaline Phosphatase 103 Troponin I Total Protein 7.9 Albumin 3.8 Globulin 4.1 H Albumin/Globulin Ratio 0.9 L
[2017-06-03] MEDS: Vancomycin 500mg/D5W 100 ml 500 MG/100 ML BAG IVPB SCH (16:39)
--- NOTE | 2017-06-03 18:41 | CP.PCM.CON ---
History of Present Illness - History of Present Illness History of Present Illness: 37 y/o male, w/PMhx of IDDM brought to the ER for evaluation of hypoglycemia. Patient states that he took insulin but he did not eat anything because of his chronic gastroperesis. He found that his blood sugar levels were low so he decided to call 911. Patient was administered Glucagon and D50 and his blood sugar levels became normal. He is complaining of chronic abdominal pain. possibility of sepsis entertained cultures sent antibiotics ordered - Medical History PMH: Anemia, CHF, Diabetes (type I; ), Gastritis (gastroparesis), HTN, Hypercholesterolemia, Peripheral Edema, End Stage Renal Disease, Chronic Kidney Disease Denies: HIV, Kidney Stones Other Surgeries: HX of surgeries Review of Systems - Review of Systems All systems: reviewed and no additional remarkable complaints except - Constitutional Constitutional: As Per HPI - EENT Eyes: absent: As Per HPI, Blind Spots, Blurred Vision, Change in Vision, Decreased Night Vision, Diplopia, Discharge, Dry Eye, Exophthalmos, Floaters, Irritation, Itchy Eyes, Loss of Peripheral Vision, Pain, Photophobia, Requires Corrective Lenses, Sees Flashes, Spots in Vision, Tunnel Vision, Other Visual Disturbances, Loss of Vision, Other Ears: absent: As Per HPI, Decreased Hearing, Ear Discharge, Ear Pain, Tinnitus, Abnormal Hearing, Disequilibrium, Dizziness, Other Nose/Mouth/Throat: absent: As Per HPI, Epistaxis, Nasal Congestion, Nasal Discharge, Nasal Obstruction, Nasal Trauma, Nose Pain, Post Nasal Drip, Sinus Pain, Sinus Pressure, Bleeding Gums, Change in Voice, Dental Pain, Dry Mouth, Dysphagia, Halitosis, Hoarsness, Lip Swelling, Mouth Lesions, Mouth Pain, Odynophagia, Sore Throat, Throat Swelling, Tongue Swelling, Facial Pain, Neck Pain, Neck Mass, Other - Cardiovascular Cardiovascular: absent: As Per HPI, Acrocyanosis, Chest Pain, Chest Pain at Rest , Chest Pain with Activity, Claudication, Diaphoresis, Dyspnea, Dyspnea on Exertion, Edema, Irregular Heart Rhythm, Pain Radiating to Arm/Neck/Jaw, Leg Edema, Leg Ulcers, Lightheadedness, Orthopnea, Palpitations, Paroxysmal Nocturnal Dyspnea, Pedal Edema, Radiating Pain, Rapid Heart Rate, Slow Heart Rate, Syncope, Other - Respiratory Respiratory: absent: As Per HPI, Cough, Dyspnea, Hemoptysis, Dyspnea on Exertion , Wheezing, Snoring, Stridor, Pain on Inspiration, Chest Congestion, Excessive Mucous Production, Change in Mucous Color, Pain with Coughing, Other - Gastrointestinal Gastrointestinal: absent: As Per HPI, Abdominal Pain, Belching, Bloating, Change in Bowel Habits, Change in Stool Character, Coffee Ground Emesis, Constipation, Cramping, Diarrhea, Dyspepsia, Dysphagia, Early Satiety, Excessive Flatus, Fecal Incontinence, Heartburn, Hematemesis, Hematochezia, Loose Stools, Melena, Nausea, Odynophagia, Temesmus, Vomiting, Other - Genitourinary Genitourinary: absent: As Per HPI, Change in Urinary Stream, Difficulty Urinating, Dysuria, Flank Pain, Hematuria, Pyuria, Nocturia, Urinary Incontinence, Urinary Frequency, Urinary Hesitance, Urinary Urgency, Voiding Freq/Small Amts, Freq UTI, Hx Renal/Bladder Calculi, Hx /Renal Surgery, Bladder Distension, Other - Musculoskeletal Musculoskeletal: absent: As Per HPI, Abnormal Gait, Arthralgias, Atrophy, Back Pain, Deformity, Joint Swelling, Limited Range of Motion, Loss of Height, Muscle Cramps, Muscle Weakness, Myalgias, Neck Pain, Numbness, Radiating Pain into Limb, Stiffness, Tingling, Other - Integumentary Integumentary: As Per HPI - Neurological Neurological: absent: As Per HPI, Abnormal Gait, Abnormal Hearing, Abnormal Movements, Abnormal Speech, Behavioral Changes, Burning Sensations, Confusion, Convulsions, Disequilibrium, Dizziness, Numbness, Focal Weakness, Frequent Falls , Headaches, Lack of Coordination, Loss of Vision, Memory Loss, Paresthesias, Radicular Pain, Restless Legs, Sensory Deficit, Syncope, Tingling, Tremor, Vertigo, Weakness, Other Visual Disturbances, Other - Psychiatric Psychiatric: absent: As Per HPI, Abnormal Sleep Pattern, Anhedonia, Anxiety, Auditory Hallucinations, Behavioral Changes, Change in Appetite, Change in Libido, Confusion, Depression, Difficulty Concentrating, Hallucinations, Homicidal Ideation, Hopelessness, Irritability, Memory Loss, Mood Swings, Panic Attacks, Paranoia, Suicidal Ideation, Visual Hallucinations, Tactile Hallucinations, Other - Endocrine Endocrine: As Per HPI - Hematologic/Lymphatic Hematologic: absent: As Per HPI, Easy Bleeding, Easy Bruising, Lymphadenopathy, Other Past Patient History - Infectious Disease Hx of Infectious Diseases: None - Past Medical History & Family History Past Medical History?: Yes - Past Social History Smoking Status: Current Some Days Smoker - CARDIAC Hx Congestive Heart Failure: Yes Hx Hypercholesterolemia: Yes Hx Hypertension: Yes Hx Peripheral Edema: Yes - PULMONARY Hx Respiratory Disorders: No - NEUROLOGICAL Hx Neurological Disorder: No - HEENT Hx HEENT Problems: Yes Hx Cataracts: Yes - RENAL Hx Chronic Kidney Disease: Yes Hx Kidney Stones: No - ENDOCRINE/METABOLIC Hx Endocrine Disorders: Yes Hx Diabetes Mellitus Type 2: Yes - HEMATOLOGICAL/ONCOLOGICAL Hx Anemia: Yes Hx Human Immunodeficiency Virus (HIV): No - INTEGUMENTARY Hx Dermatological Problems: No - MUSCULOSKELETAL/RHEUMATOLOGICAL Hx Musculoskeletal Disorders: No Hx Falls: Yes - GASTROINTESTINAL Hx Gastritis: Yes (gastroparesis) - GENITOURINARY/GYNECOLOGICAL Hx Genitourinary Disorders: No - PSYCHIATRIC Hx Substance Use: Yes (Marijuana) - SURGICAL HISTORY Hx Surgeries: Yes Hx Cataract Extraction: Yes (bilateral) Hx Vascular Surgery: Yes Hx Vascular Access Device: Yes Other/Comment: Hx RT.PERMACATH INSERTION 12/30. 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 Hx UNDESCENDED TESTES LT. REMOVED DURING CHILDHOOD - ANESTHESIA Hx Anesthesia: Yes Hx Anesthesia Reactions: No Hx Malignant Hyperthermia: No Meds Allergies/Adverse Reactions: Allergies Allergy/AdvReac Type Severity Reaction Status Date / Time No Known Allergies Allergy Verified 06/02/17 15:58 - Medications Medications: Current Medications Amlodipine Besylate (Norvasc) 10 mg PO DAILY [facility] Last Admin: 06/03/17 09:48 Dose: 10 mg Aspirin (Aspirin Chewable) 81 mg PO DAILY [facility] Last Admin: 06/03/17 09:48 Dose: 81 mg Dextrose (Dextrose 50% Inj) 0 ml IVP .STAT PRN; Protocol PRN Reason: Hypoglycemia Protocol Dextrose (Glutose 15) 0 gm PO .ONCE PRN; Protocol PRN Reason: Hypoglycemia Protocol Epoetin Oumar (Procrit) 4,000 unit IV MWF [facility] Last Admin: 06/03/17 11:18 Dose: 4,000 unit Glucagon (Glucagen Diagnostic Kit) 0 mg IM .STAT PRN; Protocol PRN Reason: Hypoglycemia Protocol Heparin Sodium (Porcine) (Heparin) 5,000 units SC Q12 [facility] Last Admin: 06/03/17 09:52 Dose: Not Given Heparin Sodium (Porcine) (Heparin) 2,000 units IVP MWF [facility] Hydralazine HCl (Apresoline) 25 mg PO QID [facility] Last Admin: 06/03/17 18:11 Dose: 25 mg Dextrose (Dextrose 5% In Water 1000 Ml) 1,000 mls @ 0 mls/hr IV .Q0M PRN; Protocol; Per Protocol PRN Reason: Hypoglycemia Protocol Vancomycin HCl/Dextrose (Vancocin) 500 mg in 100 mls @ 67 mls/hr IVPB [facility] PRN Reason: Protocol Stop: 06/08/17 15:01 Last Admin: 06/03/17 16:39 Dose: 67 mls/hr Insulin Human Regular (Novolin R) 0 unit SC [facility]S [facility] PRN Reason: Protocol Last Admin: 06/03/17 17:30 Dose: 2 unit Morphine Sulfate (Morphine Extended Release Tab) 15 mg PO Q12 PRN PRN Reason: Pain, moderate (4-7) Last Admin: 06/03/17 09:48 Dose: 15 mg Ondansetron HCl (Zofran Inj) 4 mg IVP DAILY@ONCE PRN PRN Reason: Nausea/Vomiting Last Admin: 06/03/17 10:08 Dose: 4 mg Sevelamer Carbonate (Renvela) 800 mg PO TIDCC [facility] Last Admin: 06/03/17 18:10 Dose: 800 mg Sucralfate (Carafate Tab) 1 gm PO Q12 [facility] Last Admin: 06/03/17 09:48 Dose: 1 gm Vitamin B Complex/Vit C/Folic Acid (Nephro-Yomi) 1 tab PO 0800 [facility] Physical Exam - Constitutional Appears: Non-toxic, Chronically Ill - Head Exam Head Exam: NORMOCEPHALIC - Eye Exam Eye Exam: PERRL. absent: Scleral icterus - ENT Exam ENT Exam: Mucous Membranes Dry, Normal External Ear Exam - Neck Exam Neck exam: Negative for: Lymphadenopathy - Respiratory Exam Respiratory Exam: Decreased Breath Sounds - Cardiovascular Exam Cardiovascular Exam: REGULAR RHYTHM, +S1, +S2. absent: Systolic Murmur - GI/Abdominal Exam GI & Abdominal Exam: Diminished Bowel Sounds, Soft. absent: Tenderness - Rectal Exam Rectal Exam: Deferred - Exam Exam: NORMAL INSPECTION - Extremities Exam Extremities exam: Positive for: pedal pulses present. Negative for: calf tenderness, pedal edema, tenderness - Back Exam Back exam: absent: CVA tenderness (L), CVA tenderness (R) - Neurological Exam Neurological exam: Alert, CN II-XII Intact, Oriented x3, Reflexes Normal - Psychiatric Exam Psychiatric exam: Normal Mood - Skin Skin Exam: Dry, Intact Results - Vital Signs Recent Vital Signs: Last Vital Signs Temp 98.8 F 06/03/17 15:42 Pulse 98 H 06/03/17 15:42 Resp 20 06/03/17 15:42 BP 155/80 H 06/03/17 15:42 Pulse Ox 100 06/03/17 15:42 - Labs Result Diagrams: 06/03/17 10:45 06/03/17 10:45 Labs: Laboratory Results - last 24 hr 06/02/17 06/03/17 06/03/17 21:29 02:00 06:22 WBC RBC Hgb Hct MCV MCH MCHC RDW Plt Count MPV Neut % (Auto) Lymph % (Auto) Brule % (Auto) Eos % (Auto) Baso % (Auto) Neut # (Auto) Lymph # (Auto) Brule # (Auto) Eos # (Auto) Baso # (Auto) Sodium Potassium Chloride Carbon Dioxide Anion Gap BUN Creatinine Est GFR ( Amer) Est GFR (Non-Af Amer) POC Glucose (mg/dL) 327 H 406 H* 387 H Random Glucose Calcium Total Bilirubin AST ALT Alkaline Phosphatase Total Protein Albumin Globulin Albumin/Globulin Ratio 06/03/17 06/03/17 06/03/17 10:45 10:45 11:25 WBC 16.1 H RBC 3.36 L Hgb 9.3 L Hct 29.0 L MCV 86.5 MCH 27.8 MCHC 32.1 L RDW 18.5 H Plt Count 369 MPV 9.5 Neut % (Auto) 75.8 H Lymph % (Auto) 10.5 L Brule % (Auto) 10.3 H Eos % (Auto) 2.1 Baso % (Auto) 1.3 Neut # (Auto) 12.2 H Lymph # (Auto) 1.7 Brule # (Auto) 1.7 H Eos # (Auto) 0.3 Baso # (Auto) 0.2 Sodium 138 Potassium 4.8 Chloride 92 L Carbon Dioxide 26 Anion Gap 24 H BUN 50 H Creatinine 8.3 H* D Est GFR ( Amer) 9 Est GFR (Non-Af Amer) 7 POC Glucose (mg/dL) 185 H Random Glucose 335 H Calcium 9.4 Total Bilirubin 0.4 AST 23 ALT 10 L Alkaline Phosphatase 103 Total Protein 7.9 Albumin 3.8 Globulin 4.1 H Albumin/Globulin Ratio 0.9 L 06/03/17 16:52 WBC RBC Hgb Hct MCV MCH MCHC RDW Plt Count MPV Neut % (Auto) Lymph % (Auto) Brule % (Auto) Eos % (Auto) Baso % (Auto) Neut # (Auto) Lymph # (Auto) Brule # (Auto) Eos # (Auto) Baso # (Auto) Sodium Potassium Chloride Carbon Dioxide Anion Gap BUN Creatinine Est GFR ( Amer) Est GFR (Non-Af Amer) POC Glucose (mg/dL) 167 H Random Glucose Calcium Total Bilirubin AST ALT Alkaline Phosphatase Total Protein Albumin Globulin Albumin/Globulin Ratio Assessment & Plan (1) Hypoglycemia Status: Acute (2) Hypothermia Status: Acute (3) Leukocytosis Status: Acute (4) Abdominal discomfort Status: Acute (5) Abdominal pain Status: Acute - Assessment and Plan (Free Text) Assessment: hx of MRSA sepsis in past severe hypoglycemia r/o recurrent infection IV Vanco added
[2017-06-04] MEDS: Oxycodone/Acetaminophen 5/325 mg Tab PO PRN ×6 (01:17→22:41)
[2017-06-04] MEDS: (Novolin R) Insulin Human Regular 100 units/ml vial SC SCH ×4 (07:54→22:00)
[2017-06-04] MEDS: Multivitamin Vitamin B Complex (Nephro-Vite) Tab PO SCH (07:54)
--- NOTE | 2017-06-04 15:43 | CP.PCM.PN ---
Subjective - Date & Time of Evaluation Date of Evaluation: 06/04/17 Time of Evaluation: 15:41 - Subjective Subjective: Nephrology Consultation Note Assessment: stable Uncontrolled DM with hypoglycemia and hyperglycemia recent MRSA sepsis ? source recurrent nausea/vomiting, Cyclic Emesis Syndrome, marijuana abuse, gastroparesis, esophagitis Diabetic chronic Kidney Disease (E11.22) Hypertensive Chronic Kidney Disease (I12.0) End stage renal disease (N18.6) dependence on hemodialysis (Z99.2) (MWF) via AVF Anemia (D64.9), Hyperphosphatemia (E83.39), Secondary Hyperparathyroidism (E21.1 ), HTN (I12.0) Plan: dialysis MWF. Continue with Nephrovite 1 tab/day. continue with MOHINI with HD continue with phos binders BP control with meds as ordered. no ACEI/ARB due to hyperkalemia episodes intermittently N/v per primary team abx per primary team S: seen and examined still w/ naussea and vomitting Physical Examination: General Appearance: comfortable, in no acute respiratory distress, co- operative. Vitals reviewed and noted as below Head; Atraumatic, normocephalic ENT: no ulcers no thrush. Tongue is midline. Oropharynx: no rash or ulcers. EYES: Pupils are equal, round and reactive to light accommodation. Eye muscles and extraocular movement intact. Sclera is anicteric. Neck; supple no lymphadenopathy, no thyromegaly or bruit Lungs: Normal respiratory rate/effort. Breath sounds bilateral equal and clear Heart: normal rate. s1s2 normal. No rub or gallop. Extremities: no edema. No varicose veins Neurological: Patient is alert, awake and oriented to person, place and time. No focal deficit. Strength bilateral appropriate and equal Skin: Warm and dry. Normal turgor. No rash. Palpitation: Normal elasticity for age Abdomen: Abdomen is soft. Bowel sounds +. There is no abdominal tenderness (and pt response usually out of proportion to palpation), no guarding/rigidity or organomegaly Psych: limited insight and normal affect/mood MSK: no joint tenderness or swelling. Digits and nails normal, no deformity. : kidney or bladder not palpable. Access: AVF Objective - Vital Signs/Intake and Output Vital Signs (last 24 hours): Temp Pulse Resp BP Pulse Ox 99 F 92 H 20 167/84 H 96 06/04/17 07:00 06/04/17 14:06 06/04/17 07:00 06/04/17 14:06 06/04/17 07:00 Intake and Output: 06/04/17 06/04/17 06:59 18:59 Intake Total 360 400 Balance 360 400 - Medications Medications: Current Medications Amlodipine Besylate (Norvasc) 10 mg PO DAILY [facility] Last Admin: 06/04/17 09:33 Dose: 10 mg Aspirin (Aspirin Chewable) 81 mg PO DAILY [facility] Last Admin: 06/04/17 09:34 Dose: 81 mg Dextrose (Dextrose 50% Inj) 0 ml IVP .STAT PRN; Protocol PRN Reason: Hypoglycemia Protocol Dextrose (Glutose 15) 0 gm PO .ONCE PRN; Protocol PRN Reason: Hypoglycemia Protocol Epoetin Oumar (Procrit) 4,000 [place] [facility] [place] Admin: 06/03/17 11:18 Dose: 4,000 unit Glucagon (Glucagen Diagnostic Kit) 0 mg IM .STAT PRN; Protocol PRN Reason: Hypoglycemia Protocol Heparin Sodium (Porcine) (Heparin) 5,000 units SC Q12 [facility] Last Admin: 06/04/17 09:37 Dose: Not Given Heparin Sodium (Porcine) (Heparin) 2,000 units [place]P [facility] [place] Hydralazine HCl (Apresoline) 25 mg PO QID [facility] Last Admin: 06/04/17 14:07 Dose: 25 mg Dextrose (Dextrose 5% In Water 1000 Ml) 1,000 mls @ 0 mls/hr IV .Q0M PRN; Protocol; Per Protocol PRN Reason: Hypoglycemia Protocol Vancomycin HCl/Dextrose (Vancocin) 500 mg in 100 mls @ 67 mls/hr [place]PB [facility] PRN Reason: Protocol Stop: 06/08/17 15:01 Last Admin: 06/03/17 16:39 Dose: 67 mls/hr Insulin Human Regular (Novolin R) 0 unit SC ACHS [facility] PRN Reason: Protocol Last Admin: 06/04/17 12:17 Dose: 3 unit Ondansetron HCl (Zofran Inj) 4 mg IVP DAILY@ONCE PRN PRN Reason: Nausea/Vomiting Last Admin: 06/03/17 10:08 Dose: 4 mg Oxycodone/Acetaminophen (Percocet 5/325 Mg Tab) 1 tab PO Q4H PRN PRN Reason: Pain, severe (8-10) Stop: 06/06/17 18:52 Last Admin: 06/04/17 14:07 Dose: 1 tab Sevelamer Carbonate (Renvela) 800 mg PO TIDCC [facility] Last Admin: 06/04/17 12:16 Dose: 800 mg Sucralfate (Carafate Tab) 1 gm PO Q12 [facility] Last Admin: 06/04/17 09:34 Dose: 1 gm Vitamin B Complex/Vit C/Folic Acid (Nephro-Yomi) 1 tab PO 0800 [facility] Last Admin: 06/04/17 07:54 Dose: 1 tab - Labs Labs: 06/03/17 10:45 06/03/17 10:45
[2017-06-05] MEDS: Oxycodone/Acetaminophen 5/325 mg Tab PO PRN ×2 (02:51→10:29)
[2017-06-05] MEDS: Multivitamin Vitamin B Complex (Nephro-Vite) Tab PO SCH (07:49)
[2017-06-05] MEDS: (Novolin R) Insulin Human Regular 100 units/ml vial SC SCH ×4 (07:50→22:00)
--- NOTE | 2017-06-05 15:20 | CP.PCM.PN ---
Subjective - Date & Time of Evaluation Date of Evaluation: 06/05/17 Time of Evaluation: 08:00 - Subjective Subjective: still weak denies chest pain no fever Objective - Vital Signs/Intake and Output Vital Signs (last 24 hours): Temp Pulse Resp BP Pulse Ox 98.6 F 101 H 20 145/77 96 06/05/17 07:00 06/05/17 13:57 06/05/17 07:00 06/05/17 13:57 06/05/17 07:00 Intake and Output: 06/05/17 06/05/17 06:59 18:59 Intake Total 360 400 Balance 360 400 - Medications Medications: Current Medications Amlodipine Besylate (Norvasc) 10 mg PO DAILY [facility] Last Admin: 06/05/17 10:29 Dose: 10 mg Aspirin (Aspirin Chewable) 81 mg PO DAILY [facility] Last Admin: 06/05/17 10:28 Dose: 81 mg Dextrose (Dextrose 50% Inj) 0 ml IVP .STAT PRN; Protocol PRN Reason: Hypoglycemia Protocol Dextrose (Glutose 15) 0 gm PO .ONCE PRN; Protocol PRN Reason: Hypoglycemia Protocol Epoetin Oumar (Procrit) 4,000 unit IV [facility] [place] Last Admin: 06/03/17 11:18 Dose: 4,000 unit Glucagon (Glucagen Diagnostic Kit) 0 mg IM .STAT PRN; Protocol PRN Reason: Hypoglycemia Protocol Heparin Sodium (Porcine) (Heparin) 5,000 units SC Q12 [facility] Last Admin: 06/05/17 10:28 Dose: Not Given Heparin Sodium (Porcine) (Heparin) 2,000 units IVP [facility] [place] Hydralazine HCl (Apresoline) 25 mg PO QID [facility] Last Admin: 06/05/17 13:57 Dose: 25 mg Dextrose (Dextrose 5% In Water 1000 Ml) 1,000 mls @ 0 mls/hr IV .Q0M PRN; Protocol; Per Protocol PRN Reason: Hypoglycemia Protocol Vancomycin HCl/Dextrose (Vancocin) 500 mg in 100 mls @ 67 mls/hr IVPB [facility] [place] PRN Reason: Protocol Stop: 06/08/17 15:01 Last Admin: 06/03/17 16:39 Dose: 67 mls/hr Insulin Human Regular (Novolin R) 0 unit SC ACHS [facility] PRN Reason: Protocol Last Admin: 06/05/17 12:32 Dose: 3 unit Ondansetron HCl (Zofran Inj) 4 mg IVP DAILY@ONCE PRN PRN Reason: Nausea/Vomiting Last Admin: 06/03/17 10:08 Dose: 4 mg Sevelamer Carbonate (Renvela) 800 mg PO TIDCC [facility] Last Admin: 06/05/17 12:31 Dose: 800 mg Sucralfate (Carafate Tab) 1 gm PO Q12 [facility] Last Admin: 06/05/17 10:29 Dose: 1 gm Vitamin B Complex/Vit C/Folic Acid (Nephro-Yomi) 1 tab PO 0800 [facility] Last Admin: 06/05/17 07:49 Dose: 1 tab - Labs Labs: 06/03/17 10:45 06/03/17 10:45 - Constitutional Appears: Non-toxic, Chronically Ill - Head Exam Head Exam: NORMOCEPHALIC - Eye Exam Eye Exam: PERRL. absent: Scleral icterus - ENT Exam ENT Exam: Mucous Membranes Dry - Neck Exam Neck Exam: absent: Lymphadenopathy - Respiratory Exam Respiratory Exam: Decreased Breath Sounds - Cardiovascular Exam Cardiovascular Exam: REGULAR RHYTHM - GI/Abdominal Exam GI & Abdominal Exam: Distended, Soft Assessment and Plan (1) Hypoglycemia Status: Acute (2) Hypothermia Status: Acute (3) Leukocytosis Status: Acute (4) Abdominal discomfort Status: Acute (5) Abdominal pain Status: Acute
[2017-06-05] MEDS ORDERED: Oxycodone/Acetaminophen 5/325 mg Tab PO ONE (23:05)
[2017-06-06] MEDS: Multivitamin Vitamin B Complex (Nephro-Vite) Tab PO SCH (08:28)
[2017-06-06] MEDS: (Novolin R) Insulin Human Regular 100 units/ml vial SC SCH ×3 (08:29→16:37)
--- NOTE | 2017-06-06 08:44 | PN ---
DATE: 06/04/2017. SUBJECTIVE: The patient is getting supportive care. Monitor blood sugar. Complain of abdominal pain. Lucero Chadwick MD
--- NOTE | 2017-06-06 09:05 | HP ---
HISTORY OF PRESENT ILLNESS: [facility] chief complaint of hypoglycemia, weakness. this patient took insulin without eating, came to the hospital markedly hypoglycemic and altered. The patient has history of diabetes, hypertension, renal failure, poor social condition at home. PHYSICAL EXAMINATION: GENERAL: The patient is awake, alert, and oriented. 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 NECK: Supple. CHEST: Symmetrical. HEART: Regular. ABDOMEN: Soft. EXTREMITIES: No edema. IMPRESSION: The patient has hypoglycemia, , sepsis, diabetes, hypertension. The patient bed rest, monitor blood sugar, hold insulin. Lucero Chadwick MD
--- NOTE | 2017-06-06 09:41 | CP.PCM.PN ---
Subjective - Date & Time of Evaluation Date of Evaluation: 06/06/17 Time of Evaluation: 09:25 - Subjective Subjective: Medicine Progress Note- Dr. Chadwick's service Pt seen and examined in no apparent acute distress. Patient admits to stomach pain. Patient states that his chest pain has resolved. Patient states that his pain medication was stopped yesterday. He is due for dialysis today. Objective - Vital Signs/Intake and Output Vital Signs (last 24 hours): Temp Pulse Resp BP Pulse Ox 97.7 F 92 H 18 162/77 H 96 06/06/17 07:00 06/06/17 07:00 06/06/17 07:00 06/06/17 07:00 06/06/17 07:00 Intake and Output: 06/06/17 06/06/17 06:59 18:59 Intake Total 240 Balance 240 - Medications Medications: Current Medications Amlodipine Besylate (Norvasc) 10 mg PO DAILY [facility] Last Admin: 06/05/17 10:29 Dose: 10 mg Aspirin (Aspirin Chewable) 81 mg PO DAILY [facility] Last Admin: 06/05/17 10:28 Dose: 81 mg Dextrose (Dextrose 50% Inj) 0 ml IVP .STAT PRN; Protocol PRN Reason: Hypoglycemia Protocol Dextrose (Glutose 15) 0 gm PO .ONCE PRN; Protocol PRN Reason: Hypoglycemia Protocol Epoetin Oumar (Procrit) 4,000 unit IV [facility] [place] Last Admin: 06/03/17 11:18 Dose: 4,000 unit Glucagon (Glucagen Diagnostic Kit) 0 mg IM .STAT PRN; Protocol PRN Reason: Hypoglycemia Protocol Heparin Sodium (Porcine) (Heparin) 5,000 units SC Q12 [facility] Last Admin: 06/05/17 22:20 Dose: Not Given Heparin Sodium (Porcine) (Heparin) 2,000 units IVP [facility] [place] Hydralazine HCl (Apresoline) 25 mg PO QID [facility] Last Admin: 06/05/17 22:19 Dose: 25 mg Vancomycin HCl/Dextrose (Vancocin) 500 mg in 100 mls @ 67 mls/hr IVPB [facility] [place] PRN Reason: Protocol Stop: 06/08/17 15:01 Last Admin: 06/03/17 16:39 Dose: 67 mls/hr Insulin Human Regular (Novolin R) 0 unit SC [facility] PRN Reason: Protocol Last Admin: 06/06/17 08:29 Dose: 6 unit Ondansetron HCl (Zofran Inj) 4 mg IVP DAILY@ONCE PRN PRN Reason: Nausea/Vomiting Last Admin: 06/03/17 10:08 Dose: 4 mg Sevelamer Carbonate (Renvela) 800 mg PO TIDCC [facility] Last Admin: 06/06/17 08:27 Dose: 800 mg Sucralfate (Carafate Tab) 1 gm PO Q12 [facility] Last Admin: 06/05/17 22:19 Dose: 1 gm Vitamin B Complex/Vit C/Folic Acid (Nephro-Yomi) 1 tab PO 0800 [facility] Last Admin: 06/06/17 08:28 Dose: 1 tab - Labs Labs: 06/03/17 10:45 06/03/17 10:45 - Head Exam Head Exam: ATRAUMATIC, NORMAL INSPECTION - Eye Exam Eye Exam: EOMI, Normal appearance - ENT Exam ENT Exam: Mucous Membranes Moist - Neck Exam Neck Exam: Full ROM - Respiratory Exam Respiratory Exam: NORMAL BREATHING PATTERN - GI/Abdominal Exam GI & Abdominal Exam: Soft, Normal Bowel Sounds - Extremities Exam Extremities Exam: Full ROM - Back Exam Back Exam: Full ROM - Neurological Exam Neurological Exam: Alert, Awake, Normal Gait, Oriented x3 - Psychiatric Exam Psychiatric exam: Normal Affect, Normal Mood - Skin Skin Exam: Dry, Warm Assessment and Plan - Assessment and Plan (Free Text) Assessment: Gastroparesis Patient with intermittent abdominal pain Patient with poorly controlled diabetes Reglan 5mg IVP AC Carafate Zofran Recommendations to eat small meals at a time slowly. ESRD on HD MWF Procurement Engineer, Dr. Larsen, help appreciated Renal diet Renvela 160mg PO TID HD M/W/F IDDM Accuchecks ACHS ISS ASA 81mg PO Daily Crestor 10 mg PO Daily HTN Norvasc 10 mg PO Daily Hydralazine 25 mg po q6 Blood pressures not well controlled Will add on Zestril 5 mg PO daily Monitor History of MRSA Bacteremia - On past admission on 05/14/17, pt was positive for MRSA in blood cultures. Pt was treated with abx at the time - Final blood cultures were Negative May 18, and . - On this admission, pt was placed on Vancomycin. Blood cultures from 06/02 negative to date - Per Procurement Engineer, patient to continue antibiotics for an additional 4 weeks. Prophylaxis SCDs/ Heparin Carafate and protonix DC Instructions Patient is medically stable for discharge home. Patient to follow up with his primary medical doctor within one week. Patient to resume hemodialysis on scheduled Tuesday, Tuesday and Fridays Patient to obtain Vancomycin during hemodialysis for four more weeks up until July 01, 2017 Instructions explained to patient who is aware Discussed with attending. Planning and management per Dr. Chadwick.
[2017-06-06 10:49] LABS: BASO # 0.1 K/uL (0.0-0.2); BASO % 1.2 % (0.0-2.0); EOS # 0.4 K/uL (0.0-0.7); EOS % 3.9 % (0.0-4.0); HEMOGLOBIN 8.2 g/dL (12.0-18.0); LYMPH # 1.4 K/uL (1.0-4.3); LYMPH % 13.8 % (20.0-40.0); MEAN CELL VOLUME 86.6 fL (80.0-94.0); MEAN CORPUSCULAR HEMOGLOBIN 28.7 pg (27.0-31.0); MEAN CORPUSCULAR HGB CONC 33.1 g/dL (33.0-37.0); MEAN PLATELET VOLUME 9.5 fL (7.2-11.7); MONO # 1.6 K/uL (0.0-0.8); MONO % 16.3 % (0.0-10.0); NEUT # 6.4 K/uL (1.8-7.0); NEUT % 64.8 % (50.0-75.0); NRBC % 0.1 % (0.0-2.0); RBC 2.86 Mil/uL (4.40-5.90); RED CELL DISTRIBUTION WIDTH 18.5 % (11.5-14.5); WHITE BLOOD COUNT 9.8 K/uL (4.8-10.8)
[2017-06-06 11:11] LABS: ALB/GLOB RATIO 0.9 (1.0-2.1); ALBUMIN 3.5 g/dL (3.5-5.0); CALCIUM 8.6 mg/dl (8.6-10.4)
[2017-06-06] MEDS: EPOETIN ALFA 4,000 UNIT/ML ML Dialysis IV SCH (11:16)
[2017-06-06 11:35] VITALS: RESP 20
[2017-06-06] MEDS ORDERED: Morphine 15 mg Immediate Release Tab PO PRN (11:42)
[2017-06-06] MEDS: Vancomycin 500mg/D5W 100 ml 500 MG/100 ML BAG IVPB SCH (12:13)
[2017-06-06 15:37] VITALS: BP 167/83; PULSE 110; TEMP 98.6; O2SAT 99
--- NOTE | 2017-06-06 16:42 | CP.PCM.PN ---
Subjective - Date & Time of Evaluation Date of Evaluation: 06/06/17 Time of Evaluation: 16:38 - Subjective Subjective: Nephrology Consultation Note Assessment: stable Hyperkalemia Uncontrolled DM with hypoglycemia and hyperglycemia recent MRSA sepsis ? 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 Continue with Nephrovite 1 tab/ day. continue with MOHINI with HD continue with phos binders, last phos 3.8 BP control with meds as ordered. no ACEI/ARB due to hyperkalemia episodes intermittently/frequently Glycemic control, Dialysis consistent diet Further work up/management as per primary team Dose meds/antibiotics for ESRD status. Avoid fleets enema/magnesium based laxatives. pt to abstain from marijuana recents admissions: DINO neg for endocarditis, Doppler/USG of AV access: no report of localized collection continue abx as vanco post HD ~ 4 weeks since last blood cx neg (till jun 15 2017). Thanks for allowing me to participate in care of your patient. Will follow patient with you. Please call if any Qs. Dr Brenton Larsen Office: [phone] HPI: Pt is a 36 y/o M with hx of ESRD on hemodialysis (MWF) via AVF, chronic anemia, hyperphosphatemia, secondary hyperparathyroidism, Diabetes Mellitus, hypertension, recurrent nausea/vomiting and multiple hospitalization for same, recently hospitalized with MRSA sepsis and pain abdomen came back with low blood sugar. Denies chest pain, palpitation, leg swelling c/o pain upper abdomen (chronic) ROS: Constitutional Symptoms: No Recent Weight Changes Cardiovascular: No chest pain. No palpitations. Pulmonary: No cough. says breathing okay Gastrointestinal: reports chronic abdominal pain. c/o nausea. c/o vomiting. Denies change in bowel habits. Denies Bleeding All other negative except as in HPI. Physical Examination: seen on HD General Appearance: comfortable, in no acute respiratory distress, co- operative. Vitals reviewed and noted as below Head; Atraumatic, normocephalic ENT: no ulcers no thrush. Tongue is midline. Oropharynx: no rash or ulcers. EYES: Pupils are equal, round and reactive to light accommodation. Eye muscles and extraocular movement intact. Sclera is anicteric. Neck; supple no lymphadenopathy, no thyromegaly or bruit Lungs: Normal respiratory rate/effort. Breath sounds bilateral equal and clear Heart: normal rate. s1s2 normal. No rub or gallop. Extremities: no edema. No varicose veins Neurological: Patient is alert, awake and oriented to person, place and time. No focal deficit. Strength bilateral appropriate and equal Skin: Warm and dry. Normal turgor. No rash. Palpitation: Normal elasticity for age Abdomen: Abdomen is soft. Bowel sounds +. There is no abdominal tenderness (and pt response usually out of proportion to palpation), no guarding/rigidity or organomegaly Psych: limited insight and normal affect/mood MSK: no joint tenderness or swelling. Digits and nails normal, no deformity. : kidney or bladder not palpable. Access: AVF Labs/imaging reviewed. Past medical history, past surgical history, family history, social history, allergy reviewed and noted as below Family Hx: no hx of CKD. Non contributory sec HTN work up neg as renin/ioana, metanephrine and renal artery doppler Objective - Vital Signs/Intake and Output Vital Signs (last 24 hours): Temp Pulse Resp BP Pulse Ox 98.6 F 110 H 20 167/83 H 99 06/06/17 15:36 06/06/17 15:36 06/06/17 15:36 06/06/17 15:36 06/06/17 15:36 Intake and Output: 06/06/17 06/06/17 06:59 18:59 Intake Total 240 Balance 240 - Medications Medications: Current Medications Amlodipine Besylate (Norvasc) 10 mg PO DAILY [facility] Last Admin: 06/06/17 14:48 Dose: 10 mg Aspirin (Aspirin Chewable) 81 mg PO DAILY [facility] Last Admin: 06/06/17 14:48 Dose: 81 mg Dextrose (Dextrose 50% Inj) 0 ml IVP .STAT PRN; Protocol PRN Reason: Hypoglycemia Protocol Dextrose (Glutose 15) 0 gm PO .ONCE PRN; Protocol PRN Reason: Hypoglycemia Protocol Epoetin Oumar (Procrit) 4,000 unit IV [facility] [place] Last Admin: 06/06/17 11:16 Dose: 4,000 unit Glucagon (Glucagen Diagnostic Kit) 0 mg IM .STAT PRN; Protocol PRN Reason: Hypoglycemia Protocol Heparin Sodium (Porcine) (Heparin) 5,000 units SC Q12 [facility] Last Admin: 06/06/17 12:08 Dose: Not Given Heparin Sodium (Porcine) (Heparin) 2,000 units IVP [facility] [place] Last Admin: 06/06/17 11:19 Dose: 2,000 units Hydralazine HCl (Apresoline) 25 mg PO QID [facility] Last Admin: 06/06/17 14:47 Dose: 25 mg Vancomycin HCl/Dextrose (Vancocin) 500 mg in 100 mls @ 67 mls/hr IVPB [facility] [place] PRN Reason: Protocol Stop: 06/08/17 15:01 Last Admin: 06/06/17 12:13 Dose: Not Given Insulin Human Regular ([facility] R) [facility] PRN Reason: Protocol Last Admin: 06/06/17 16:37 Dose: 3 unit Morphine Sulfate (Morphine Immediate Release Tab) 15 mg PO Q12 PRN PRN Reason: Pain, moderate (4-7) Last Admin: 06/06/17 16:36 Dose: 15 mg Ondansetron HCl (Zofran Inj) 4 mg IVP DAILY@ONCE PRN PRN Reason: Nausea/Vomiting Last Admin: 06/03/17 10:08 Dose: 4 mg Sevelamer Carbonate (Renvela) 800 mg PO TIDCC [facility] Last Admin: 06/06/17 12:12 Dose: Not Given Sucralfate (Carafate Tab) 1 gm PO Q12 [facility] Last Admin: 06/06/17 10:39 Dose: Not Given Vitamin B Complex/Vit C/Folic Acid (Nephro-Yomi) 1 tab PO 0800 [facility] Last Admin: 06/06/17 08:28 Dose: 1 tab - Labs Labs: 06/06/17 10:32 06/06/17 10:32
--- NOTE | 2017-06-12 22:03 | CARD ---
APPROVED REPORT EKG Measurement Heart [id number] <Conclusion> Normal sinus rhythm Possible Left atrial enlargement Nonspecific T wave abnormality Prolonged QT Abnormal ECG
--- NOTE | 2017-06-13 10:53 | DS ---
HOSPITAL COURSE: The patient was admitted to the hospital with chief complaint of nausea, vomiting and abdominal pain. Patient came to the ER. Patient get bed rest, IV fluids, gradual improvement, discharged to be followed up as outpatient. Lucero Chadwick MD
== END 2017-06-06 21:56 | disposition home or self-care (01) | DRG 638 ==
LOC: C.ER 15:38 → C.9E 17:45 → C.6T 18:49
PROVIDERS: ADMIT Internal Medicine Pulmonary Disease; ATTEND Internal Medicine Pulmonary Disease
PROC: 5A1D70Z Performance of Urinary Filtration, Intermittent, Less than 6 Hours Per Day (ICD-10-PCS; principal; 2017-06-06)
DX: E10.649 Type 1 diabetes mellitus with hypoglycemia without coma (principal); I13.2 Hypertensive heart and chronic kidney disease with heart failure and with stage 5 chronic kidney disease, or end stage renal disease; D64.9 Anemia, unspecified; N18.6 End stage renal disease; N25.81 Secondary hyperparathyroidism of renal origin; Z79.4 Long term (current) use of insulin; E78.00 Pure hypercholesterolemia, unspecified; E83.39 Other disorders of phosphorus metabolism; E87.5 Hyperkalemia; F12.10 Cannabis abuse, uncomplicated; I50.9 Heart failure, unspecified; Z99.2 Dependence on renal dialysis; F17.210 Nicotine dependence, cigarettes, uncomplicated; T68.XXXA Hypothermia, initial encounter; E11.22 Type 2 diabetes mellitus with diabetic chronic kidney disease; E11.43 Type 2 diabetes mellitus with diabetic autonomic (poly)neuropathy; K31.84 Gastroparesis

== ENCOUNTER 2017-06-11 08:59 | Observation (INO) | payer MEDICARE, MEDICAID ==
--- NOTE | 2017-06-11 09:30 | C.PDOC ---
History Of Present Illness 37 y/o male w/ PMhx of HTN, diabetes, gastritis, and end stage renal disease, presents to the ER complaining of generalized abdominal pain, nausea, and vomiting which began in the morning today. Patient is also complaining of chronic diarrhea. Patient reports that he was recently discharged from [facility] for similar medical problems. He notes that he has dialysis on Mondays , Wednesdays, and Fridays. Of note, patient is well known to ER. Time Seen by Provider: 06/11/17 09:05 Chief Complaint (Nursing): Abdominal Pain History Per: Patient History/Exam Limitations: no limitations Onset/Duration Of Symptoms: Days Severity: Moderate Associated Symptoms: Nausea, Vomiting, Diarrhea. denies: Fever, Chills, Urinary Symptoms Past Medical History Reviewed: Historical Data, Nursing Documentation, Vital Signs Vital Signs: Last Vital Signs Temp 97.6 F 06/11/17 11:55 Pulse 108 H 06/11/17 11:55 Resp 22 06/11/17 11:55 BP 219/93 H 06/11/17 11:55 Pulse Ox 96 06/11/17 12:05 - Medical History PMH: Anemia, CHF, Diabetes (type I; ), Gastritis (gastroparesis), HTN, Hypercholesterolemia, Peripheral Edema, End Stage Renal Disease, Chronic Kidney Disease Denies: HIV, Kidney Stones Other Surgeries: Hx of surgeries - [facility] Procedures (05/27/17) (11/12/16) BYPASS LEFT BRACHIAL ARTERY TO UPPER ARM VEIN, OPEN APPROACH (02/17/16) DILATION OF LEFT BASILIC VEIN, PERCUTANEOUS APPROACH (11/06/16) EXCISION OF ASCENDING COLON, ENDO, DIAGN (12/19/15) EXCISION OF DESCENDING COLON, ENDO, DIAGN (10/22/16) EXCISION OF DUODENUM, ENDO, DIAGN (03/25/16) EXCISION OF LARGE INTESTINE, ENDO, DIAGN (05/06/16) EXCISION OF MIDDLE ESOPHAGUS, ENDO, DIAGN (03/25/16) EXCISION OF STOMACH, ENDO, DIAGN (02/05/17) EXCISION OF TRANSVERSE COLON, ENDO, DIAGN (05/06/16) INSERTION OF INFUSION DEV INTO SUP VENA CAVA, PERC APPROACH (12/19/15) PERFORMANCE OF URINARY FILTRATION, MULTIPLE (10/28/16) PERFORMANCE OF URINARY FILTRATION, SINGLE (11/06/16) PLAIN RADIOGRAPHY OF DIALYSIS SHUNT USING OTH CONTRAST (05/20/17) REPOSITION LEFT BASILIC VEIN, OPEN APPROACH (05/25/16) ULTRASONOGRAPHY OF SUPERIOR VENA CAVA, GUIDANCE (12/19/15) Family History: States: Diabetes, Hypertension - Social History Hx Tobacco Use: Yes (some days) Hx Alcohol Use: No Hx Substance Use: Yes (Marijuana) - Immunization History Hx Tetanus Toxoid Vaccination: Yes Hx Influenza Vaccination: Yes Hx Pneumococcal Vaccination: Yes Review Of Systems Except As Marked, All Systems Reviewed And Found Negative. Constitutional: Negative for: Fever, Chills Gastrointestinal: Positive for: Nausea, Vomiting, Abdominal Pain, Diarrhea Genitourinary: Negative for: Dysuria, Hematuria Physical Exam - Physical Exam Appears: Other (uncomfortable, actively vomiting - non bilious, non-bloody) Skin: Normal Color, Warm Head: Atraumatic, Normacephalic Eye(s): bilateral: Normal Inspection Nose: Normal Oral Mucosa: Moist Neck: Supple Chest: Symmetrical Cardiovascular: Rhythm Regular Respiratory: Normal Breath Sounds, No Rales, No Rhonchi, No Wheezing Gastrointestinal/Abdominal: Soft, Tenderness (diffuse tenderness) Extremity: Normal ROM Neurological/Psych: Oriented x3, Normal Speech ED Course And Treatment - Laboratory Results Result Diagrams: 06/11/17 10:13 06/11/17 10:13 O2 Sat by Pulse Oximetry: 96 (RA) Pulse Ox Interpretation: Normal Progress Note: Patient given Compazine IM, Morphine IV, Zofran IV, and IV Fluids. Labs have been reviewed. Case has been discussed with patient's PMD, Dr. Chadwick. Dr. Chadwick has accepted the patient for observation under his service. Disposition - Disposition Disposition: HOSPITALIZED Disposition Time: 11:24 Condition: FAIR - Clinical Impression Clinical Impression: Abdominal pain, Vomiting - PA / SAMPLE ROOM SUPERVISOR / Resident Statement MD/DO has reviewed & agrees with the documentation as recorded. - Scribe Statement The provider has reviewed the documentation as recorded by the Raquelibe Brii He Provider Attestation All medical record entries made by the Scribe were at my direction and personally dictated by me. I have reviewed the chart and agree that the record accurately reflects my personal performance of the history, physical exam, medical decision making, and the department course for this patient. I have also personally directed, reviewed, and agree with the discharge instructions and disposition. Decision To Admit - Pt Status Changed To: Hospital Disposition Of: Observation - . Bed Request Type: Regular Admitting Physician: Lucero Chadwick Patient Diagnosis: Abdominal pain, Vomiting
[2017-06-11] MEDS ORDERED: Sodium Chloride 0.9% 500 ML IV STA (09:33)
[2017-06-11] MEDS ORDERED: Morphine 4 MG/ML VIAL ONE (09:46)
[2017-06-11] MEDS ORDERED: Sodium Chloride 0.9% 1,000 ML ONE (09:46)
[2017-06-11 10:19] LABS: BASO # 0.1 K/uL (0.0-0.2); BASO % 1.3 % (0.0-2.0); EOS # 0.1 K/uL (0.0-0.7); EOS % 0.6 % (0.0-4.0); HEMOGLOBIN 9.9 g/dL (12.0-18.0); LYMPH # 0.8 K/uL (1.0-4.3); LYMPH % 9.1 % (20.0-40.0); MEAN CELL VOLUME 85.8 fL (80.0-94.0); MEAN CORPUSCULAR HGB CONC 33.8 g/dL (33.0-37.0); MEAN PLATELET VOLUME 8.5 fL (7.2-11.7); MONO # 0.3 K/uL (0.0-0.8); MONO % 3.8 % (0.0-10.0); NEUT # 7.7 K/uL (1.8-7.0); NEUT % 85.2 % (50.0-75.0); NRBC % 0.1 % (0.0-2.0); PLATELET COUNT 414 K/uL (130-400); RBC 3.41 Mil/uL (4.40-5.90); RED CELL DISTRIBUTION WIDTH 18.1 % (11.5-14.5); WHITE BLOOD COUNT 9.1 K/uL (4.8-10.8)
[2017-06-11 10:39] LABS: ALB/GLOB RATIO 0.8 (1.0-2.1); ALBUMIN 4.1 g/dL (3.5-5.0); ALT/SGPT < 6 U/L (21-72); AMYLASE 118 U/L (30-110); AST/SGOT 23 U/L (17-59); BLOOD UREA NITROGEN 32 mg/dL (9-20); CALCIUM 9.6 mg/dl (8.6-10.4); GFR AFRICAN-AMERICAN 15; GFR NON-AFRICAN AMERICAN 13; LIPASE 34 U/L (23-300)
[2017-06-11 10:53] LABS: ANISOCYTOSIS SLIGHT; EOSINOPHIL 3 % (0-4); LYMPHOCYTE 6 % (20-40); MONOCYTE 3 % (0-10); NEUTROPHIL 88 % (50-75); PLATELET ESTIMATE NORMAL (NORMAL); TOTAL CELLS COUNTED 100
[2017-06-11] MEDS ORDERED: Enalaprilat 2.5 MG/2 ML IV STA (12:07)
[2017-06-11] MEDS ORDERED: Enalaprilat 2.5 MG/2 ML ONE (12:14)
[2017-06-11] MEDS ORDERED: Sod Polystyrene Sulf 15 gm/60 ml Susp PO ONE (12:50)
[2017-06-11] MEDS ORDERED: Sod Polystyrene Sulf 15 gm/60 ml Susp ONE (12:50)
[2017-06-11] MEDS: (Novolog) Insulin Aspart, Recombinant 100 u/ml 10 ml vial SC SCH ×2 (18:37→22:00)
[2017-06-11] MEDS ORDERED: (Novolog) Insulin Aspart, Recombinant 100 u/ml 10 ml vial SC SCH (22:00)
[2017-06-11] MEDS: Oxycodone/Acetaminophen 5/325 mg Tab PO PRN (23:47)
[2017-06-12] MEDS: Oxycodone/Acetaminophen 5/325 mg Tab PO PRN ×4 (06:23→23:57)
[2017-06-12] MEDS: (Novolog) Insulin Aspart, Recombinant 100 u/ml 10 ml vial SC SCH ×7 (08:06→21:43)
[2017-06-12 09:24] LABS: HEMOGLOBIN 8.5 g/dL (12.0-18.0); MEAN CELL VOLUME 85.7 fL (80.0-94.0); MEAN CORPUSCULAR HEMOGLOBIN 28.3 pg (27.0-31.0); MEAN CORPUSCULAR HGB CONC 33.1 g/dL (33.0-37.0); MEAN PLATELET VOLUME 8.1 fL (7.2-11.7); RBC 3.01 Mil/uL (4.40-5.90); RED CELL DISTRIBUTION WIDTH 17.6 % (11.5-14.5)
[2017-06-12 09:42] LABS: CALCIUM 8.1 mg/dl (8.6-10.4)
--- NOTE | 2017-06-12 17:34 | CP.PCM.CON ---
History of Present Illness - History of Present Illness History of Present Illness: renal consult note abdominal pain 37 yr old with dm, htn. e.srd on hd mwf, here for abdominal pain. no urinary complaints. no edema or sob. no missed hd sessions pmh: htn dm, esrd mwf anemia social no alcohol, non smoker, marijuana use exam: vss heent normal op moist no jvd nad s1s2 present no resp distress abd soft, tender all over. non distended skin normal cooperative flat affect plan ESRD/HTN/DM/abdominal pain hd mwf continue per schedule lytes reviewed anemia stable monitor phos levels , i have ordered it abdominal pain per primary team Past Patient History - Infectious Disease Hx of Infectious Diseases: None - Past Medical History & Family History Past Medical History?: Yes - Past Social History Smoking Status: cannabis - CARDIAC Hx Congestive Heart Failure: Yes Hx Hypercholesterolemia: Yes Hx Hypertension: Yes Hx Peripheral Edema: Yes - PULMONARY Hx Respiratory Disorders: No - NEUROLOGICAL Hx Neurological Disorder: No - HEENT Hx HEENT Problems: Yes Hx Cataracts: Yes - RENAL Hx Chronic Kidney Disease: Yes Date of Last Dialysis Treatment: 06/10/17 Hx Kidney Stones: No - ENDOCRINE/METABOLIC Hx Endocrine Disorders: Yes Hx Diabetes Mellitus Type 2: Yes - HEMATOLOGICAL/ONCOLOGICAL Hx Anemia: Yes Hx Human Immunodeficiency Virus (HIV): No - INTEGUMENTARY Hx Dermatological Problems: No - MUSCULOSKELETAL/RHEUMATOLOGICAL Hx Musculoskeletal Disorders: No Hx Falls: Yes - GASTROINTESTINAL Hx Gastritis: Yes (gastroparesis) - GENITOURINARY/GYNECOLOGICAL Hx Genitourinary Disorders: No - PSYCHIATRIC Hx Substance Use: Yes (Marijuana) - SURGICAL HISTORY Hx Surgeries: Yes Hx Cataract Extraction: Yes (bilateral) Hx Vascular Surgery: Yes Hx Vascular Access Device: Yes Other/Comment: Hx RT.PERMACATH INSERTION 12/30. 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 Hx UNDESCENDED TESTES LT. REMOVED DURING CHILDHOOD - ANESTHESIA Hx Anesthesia: Yes Hx Anesthesia Reactions: No Hx Malignant Hyperthermia: No Meds Allergies/Adverse Reactions: Allergies Allergy/AdvReac Type Severity Reaction Status Date / Time No Known Allergies Allergy Verified 06/11/17 09:05 - Medications Medications: Current Medications Amlodipine Besylate (Norvasc) 10 mg PO DAILY [facility] Last Admin: 06/12/17 11:06 Dose: 10 mg Aspirin (Aspirin Chewable) 81 mg PO DAILY [facility] Last Admin: 06/12/17 11:06 Dose: 81 mg Hydralazine HCl (Apresoline) 25 mg PO Q6 [facility] Last Admin: 06/12/17 17:24 Dose: 25 mg Insulin Aspart (Novolog) 0 unit SC ACHS [facility] PRN Reason: Protocol Last Admin: 06/12/17 17:23 Dose: 1 unit Insulin Aspart (Novolog) 15 unit SC ACTID [facility] Last Admin: 06/12/17 16:30 Dose: 15 unit Ondansetron HCl (Zofran Inj) 4 mg IVP Q6 PRN PRN Reason: Nausea/Vomiting Last Admin: 06/11/17 18:55 Dose: 4 mg Oxycodone/Acetaminophen (Percocet 5/325 Mg Tab) 1 tab PO Q6H PRN PRN Reason: Pain, severe (8-10) Stop: 06/14/17 23:07 Last Admin: 06/12/17 12:34 Dose: 1 tab Pantoprazole Sodium (Protonix Inj) 40 mg IVP DAILY [facility] Last Admin: 06/12/17 11:06 Dose: 40 mg Rosuvastatin Calcium (Crestor) 20 mg PO HS [facility] Last Admin: 06/11/17 22:00 Dose: Not Given Sevelamer Carbonate (Renvela) 800 mg PO TIDCC [facility] Last Admin: 06/12/17 17:24 Dose: 800 mg Sucralfate (Carafate Tab) 1 gm PO Q12 [facility] Last Admin: 06/12/17 11:06 Dose: 1 gm Results - Vital Signs Recent Vital Signs: Last Vital Signs Temp 98.5 F 06/12/17 15:15 Pulse 92 H 06/12/17 15:15 Resp 20 06/12/17 15:15 BP 124/57 L 06/12/17 15:15 Pulse Ox 99 06/12/17 15:15 - Labs Result Diagrams: 06/12/17 09:16 06/12/17 09:16 Labs: Laboratory Results - last 24 hr 06/12/17 06/12/17 06/12/17 07:52 09:16 09:16 WBC 10.0 RBC 3.01 L Hgb 8.5 L Hct 25.8 L MCV 85.7 MCH 28.3 MCHC 33.1 RDW 17.6 H Plt Count 377 MPV 8.1 Sodium 139 Potassium 4.3 Chloride 91 L Carbon Dioxide 36 H Anion Gap 17 BUN 41 H Creatinine 7.1 H Est GFR ( Amer) 11 Est GFR (Non-Af Amer) 9 POC Glucose (mg/dL) 193 H Random Glucose 230 H Calcium 8.1 L
[2017-06-13] MEDS: Oxycodone/Acetaminophen 5/325 mg Tab PO PRN ×4 (05:41→23:52)
[2017-06-13] MEDS: (Novolog) Insulin Aspart, Recombinant 100 u/ml 10 ml vial SC SCH ×7 (07:58→21:50)
--- NOTE | 2017-06-13 09:15 | CP.PCM.PN ---
Subjective - Date & Time of Evaluation Date of Evaluation: 06/13/17 Time of Evaluation: 08:55 - Subjective Subjective: Medicine Progress Note- Dr. Chadwick's service Pt seen and examined in no apparent acute distress. Patient due for HD. Consent obtained. Patient denies complaints at this time. Objective - Vital Signs/Intake and Output Vital Signs (last 24 hours): Temp Pulse Resp BP Pulse Ox 98.3 F 91 H 20 164/84 H 98 06/13/17 08:26 06/13/17 08:26 06/13/17 08:26 06/13/17 08:26 06/13/17 08:26 Intake and Output: 06/13/17 06/13/17 06:59 18:59 Intake Total 500 Output Total 2 Balance 498 - Medications Medications: Current Medications Amlodipine Besylate (Norvasc) 10 mg PO DAILY [facility] Last Admin: 06/12/17 11:06 Dose: 10 mg Aspirin (Aspirin Chewable) 81 mg PO DAILY [facility] Last Admin: 06/12/17 11:06 Dose: 81 mg Heparin Sodium (Porcine) (Heparin) 5,000 units SC Q12 [facility] Last Admin: 06/12/17 23:38 Dose: Not Given Hydralazine HCl (Apresoline) 25 mg PO Q6 [facility] Last Admin: 06/13/17 05:41 Dose: 25 mg Insulin Aspart (Novolog) 0 unit SC ACHS [facility] PRN Reason: Protocol Last Admin: 06/13/17 07:58 Dose: 4 unit Insulin Aspart (Novolog) 15 unit SC ACTID [facility] Last Admin: 06/13/17 07:59 Dose: 15 unit Ondansetron HCl (Zofran Inj) 4 mg IVP Q6 PRN PRN Reason: Nausea/Vomiting Last Admin: 06/11/17 18:55 Dose: 4 mg Oxycodone/Acetaminophen (Percocet 5/325 Mg Tab) 1 tab PO Q6H PRN PRN Reason: Pain, severe (8-10) Stop: 06/14/17 23:07 Last Admin: 06/13/17 05:41 Dose: 1 tab Pantoprazole Sodium (Protonix Inj) 40 mg IVP DAILY [facility] Last Admin: 06/12/17 11:06 Dose: 40 mg Rosuvastatin Calcium (Crestor) 20 mg PO HS [facility] Last Admin: 06/12/17 21:44 Dose: 20 mg Sevelamer Carbonate (Renvela) 800 mg PO TIDCC [facility] Last Admin: 06/13/17 07:57 Dose: 800 mg Sucralfate (Carafate Tab) 1 gm PO Q12 [facility] Last Admin: 06/12/17 21:44 Dose: 1 gm - Labs Labs: 06/12/17 09:16 06/12/17 09:16 - Constitutional Appears: Non-toxic, No Acute Distress - Head Exam Head Exam: ATRAUMATIC, NORMAL INSPECTION - Eye Exam Eye Exam: Normal appearance Pupil Exam: NORMAL ACCOMODATION, PERRL - ENT Exam ENT Exam: Mucous Membranes Moist - Neck Exam Neck Exam: Full ROM - Respiratory Exam Respiratory Exam: NORMAL BREATHING PATTERN. absent: Wheezes - Cardiovascular Exam Cardiovascular Exam: +S1, +S2 - GI/Abdominal Exam GI & Abdominal Exam: Soft. absent: Tenderness - Back Exam Back Exam: Full ROM - Neurological Exam Neurological Exam: Alert, Awake, Oriented x3 - Psychiatric Exam Psychiatric exam: Normal Affect, Normal Mood - Skin Skin Exam: Dry, Normal Color, Warm Assessment and Plan - Assessment and Plan (Free Text) Assessment: Gastroparesis Patient with intermittent abdominal pain Patient with poorly controlled diabetes Reglan 5mg IVP AC Carafate Zofran Recommendations to eat small meals at a time slowly. ESRD on HD MWF Nephrology on the case. F/U recommendations Renal diet Renvela 160mg PO TID HD M/W/F IDDM Accuchecks ACHS ISS ASA 81mg PO Daily Crestor 10 mg PO Daily HTN Norvasc 10 mg PO Daily Hydralazine 25 mg po q6 [facility] History of MRSA Bacteremia - On past admission on 05/14/17, pt was positive for MRSA in blood cultures. Pt was treated with abx at the time - Final blood cultures were Negative May 18, , and . - On this admission, pt was placed on Vancomycin. Blood cultures from 06/02 negative to date - Per Stuffed Casing Tier, patient should be on Vancomycin during dialysis for an additional 4 weeks up until July 01, 2017 Prophylaxis SCDs/ Heparin Carafate and protonix DC Instructions Patient is medically stable for discharge home. Patient to follow up with his primary medical doctor within one week. Patient to resume hemodialysis on scheduled Tuesday, Tuesday and Fridays Patient to obtain Vancomycin during hemodialysis for four more weeks up until July 01, 2017 Instructions explained to patient who is aware Discussed with attending. Planning and management per Dr. Chadwick.
[2017-06-13] MEDS ORDERED: Enoxaparin 30 mg Syringe SC SCH (10:00)
--- NOTE | 2017-06-13 10:59 | HP ---
HISTORY OF PRESENT ILLNESS: The patient was admitted to hospital with chief complaint of abdominal pain, nausea, and vomiting. The patient came to the ER for admission. The patient has history of chronic renal failure of diabetic gastroparesis, marijuana addiction. PHYSICAL EXAMINATION: GENERAL: The patient is awake and oriented. HEENT: With eyes blind. NECK: Supple. CHEST: Symmetrical. HEART: Regular. ABDOMEN: Tenderness generalized. EXTREMITIES: No edema. ASSESSMENT AND PLAN: The patient suffers from gastroenteritis, gastritis. The patient has renal failure, diabetes, diabetic gastroparesis. The patient to take bed rest, IV fluids, supportive care. Lucero Chdawick MD
[2017-06-13] MEDS ORDERED: Dextrose 50% SYRINGE Inj (50 ml) IV STA ×2 (11:38→11:41)
[2017-06-13] MEDS ORDERED: EPOETIN ALFA 4,000 UNIT/ML ML Dialysis IV SCH (11:40)
--- NOTE | 2017-06-13 15:01 | CP.PCM.PN ---
Subjective - Date & Time of Evaluation Date of Evaluation: 06/13/17 Time of Evaluation: 14:58 - Subjective Subjective: Renal Note Pt seen on HD labs and vitals reviewed refused to continue with HD after 2 hrs of HD. he says I feel fine and don't need more IV vanco today and tuesday post HD as last dose ordered ( for hx of MRSA may 2017), d/w RN on floor epogen with HD given pt counselled to complete dialysis treatment. he refused to continue with HD as recommended Please call if any Qs Thanks Brenton Larsen Objective - Vital Signs/Intake and Output Vital Signs (last 24 hours): Temp Pulse Resp BP Pulse Ox 97.7 F 90 18 154/85 H 97 06/13/17 11:50 06/13/17 11:50 06/13/17 11:50 06/13/17 11:50 06/13/17 11:50 Intake and Output: 06/13/17 06/13/17 06:59 18:59 Intake Total 500 Output Total 2 Balance 498 - Medications Medications: Current Medications Amlodipine Besylate (Norvasc) 10 mg PO DAILY [facility] Last Admin: 06/13/17 11:12 Dose: Not Given Aspirin (Aspirin Chewable) 81 mg PO DAILY [facility] Last Admin: 06/13/17 11:12 Dose: Not Given Epoetin Oumar (Procrit) 8,000 unit IV [facility] Last Admin: 06/13/17 12:16 Dose: 8,000 unit Heparin Sodium (Porcine) (Heparin) 5,000 units SC Q12 [facility] Last Admin: 06/13/17 11:12 Dose: Not Given Heparin Sodium (Porcine) (Heparin) 2,000 units IVP [facility] Hydralazine HCl (Apresoline) 25 mg PO Q6 [facility] Last Admin: 06/13/17 12:00 Dose: Not Given Vancomycin HCl 500 mg/ Sodium (Chloride) 100 mls @ 100 mls/hr IVPB MWF [facility] PRN Reason: Protocol Stop: 06/15/17 09:59 Last Admin: 06/13/17 14:01 Dose: 100 mls/hr Insulin Aspart (Novolog) 0 unit SC ACHS [facility] PRN Reason: Protocol Last Admin: 06/13/17 11:30 Dose: Not Given Insulin Aspart (Novolog) 15 unit SC ACTID [facility] Last Admin: 06/13/17 11:30 Dose: Not Given Ondansetron HCl (Zofran Inj) 4 mg IVP Q6 PRN PRN Reason: Nausea/Vomiting Last Admin: 06/11/17 18:55 Dose: 4 mg Oxycodone/Acetaminophen (Percocet 5/325 Mg Tab) 1 tab PO Q6H PRN PRN Reason: Pain, severe (8-10) Stop: 06/14/17 23:07 Last Admin: 06/13/17 11:50 Dose: 1 tab Pantoprazole Sodium (Protonix Inj) 40 mg IVP DAILY [facility] Last Admin: 06/13/17 11:12 Dose: Not Given Rosuvastatin Calcium (Crestor) 10 mg PO HS [facility] Sevelamer Carbonate (Renvela) 800 mg PO TIDCC [facility] Last Admin: 06/13/17 13:11 Dose: 800 mg Sucralfate (Carafate Tab) 1 gm PO Q12 [facility] Last Admin: 06/13/17 11:12 Dose: Not Given Vitamin B Complex/Vit C/Folic Acid (Nephro-Yomi) 1 tab PO 0800 [facility] - Labs Labs: 06/12/17 09:16 06/12/17 09:16
[2017-06-13 16:02] VITALS: RESP 20
[2017-06-14] MEDS: Oxycodone/Acetaminophen 5/325 mg Tab PO PRN ×3 (06:00→17:49)
[2017-06-14 06:11] VITALS: O2SAT 98
[2017-06-14] MEDS: (Novolog) Insulin Aspart, Recombinant 100 u/ml 10 ml vial SC SCH ×3 (07:56→16:59)
[2017-06-14] MEDS ORDERED: Multivitamin Vitamin B Complex (Nephro-Vite) Tab PO SCH (08:00)
--- NOTE | 2017-06-14 11:04 | CP.PCM.PN ---
Subjective - Date & Time of Evaluation Date of Evaluation: 06/14/17 Time of Evaluation: 11:02 - Subjective Subjective: DR. CANTU REQUESTED THAT I D/C THE PT TODAY WITH NOVOLOG 10 UNITS SQ AC TID INSTEAD OF 15 UNITS PREVIOUSLY TAKEN. PT HAD EPISODE OF HYPOGLYCEMIA YESTERDAY. I REVIEWED THE CHART AND MED REC COMPLETED UPON D/C YESTERDAY. I UPDATED THE MED REC AND PT D/C INSTRUCTIONS ON CORRECT INSULIN DOSAGE. I ALSO DISCUSSED THIS WITH THE PT WHO VERBALIZES UNDERSTANDING. NO FURTHER ORDERS. SW TO ARRANGE TRANSPORTATION FOR PT TO GO HOME THIS AFTERNOON. Objective - Vital Signs/Intake and Output Vital Signs (last 24 hours): Temp Pulse Resp BP Pulse Ox 98.5 F 85 20 170/89 H 98 06/14/17 07:56 06/14/17 07:56 06/14/17 07:56 06/14/17 07:56 06/14/17 07:56 Intake and Output: 06/14/17 06/14/17 06:59 18:59 Intake Total 150 Balance 150 - Medications Medications: Current Medications Amlodipine Besylate (Norvasc) 10 mg PO DAILY [facility] Last Admin: 06/14/17 09:18 Dose: 10 mg Aspirin (Aspirin Chewable) 81 mg PO DAILY [facility] Last Admin: 06/14/17 09:17 Dose: 81 mg Epoetin Oumar (Procrit) 8,000 unit IV [facility] Last Admin: 06/13/17 12:16 Dose: 8,000 unit Heparin Sodium (Porcine) (Heparin) 5,000 units SC Q12 [facility] Last Admin: 06/14/17 09:18 Dose: Not Given Heparin Sodium (Porcine) (Heparin) 2,000 units IVP [facility] Hydralazine HCl (Apresoline) 25 mg PO Q6 [facility] Last Admin: 06/14/17 06:02 Dose: 25 mg Vancomycin HCl 500 mg/ Sodium (Chloride) 100 mls @ 100 mls/hr IVPB [facility] PRN Reason: Protocol Stop: 06/15/17 09:59 Last Admin: 06/13/17 14:01 Dose: 100 mls/hr Insulin Aspart (Novolog) 0 unit SC ACHS [facility] PRN Reason: Protocol Last Admin: 06/14/17 07:56 Dose: 4 unit Ondansetron HCl (Zofran Inj) 4 mg IVP Q6 PRN PRN Reason: Nausea/Vomiting Last Admin: 06/11/17 18:55 Dose: 4 mg Oxycodone/Acetaminophen (Percocet 5/325 Mg Tab) 1 tab PO Q6H PRN PRN Reason: Pain, severe (8-10) Stop: 06/14/17 23:07 Last Admin: 06/14/17 06:00 Dose: 1 tab Pantoprazole Sodium (Protonix Inj) 40 mg IVP DAILY [facility] Last Admin: 06/14/17 09:18 Dose: 40 mg Rosuvastatin Calcium (Crestor) 10 mg PO HS [facility] Last Admin: 06/13/17 21:34 Dose: 10 mg Sevelamer Carbonate (Renvela) 800 mg PO TIDCC [facility] Last Admin: 06/14/17 07:53 Dose: 800 mg Sucralfate (Carafate Tab) 1 gm PO Q12 [facility] Last Admin: 06/14/17 09:18 Dose: 1 gm Vitamin B Complex/Vit C/Folic Acid (Nephro-Yomi) 1 tab PO 0800 [facility] Last Admin: 06/14/17 07:53 Dose: 1 tab - Labs Labs: 06/12/17 09:16 06/12/17 09:16
--- NOTE | 2017-06-14 15:27 | CP.PCM.PN ---
Subjective - Date & Time of Evaluation Date of Evaluation: 06/14/17 Time of Evaluation: 15:26 - Subjective Subjective: renal note Pt seen and examined labs vitals reviewed plan for HD tomorrow Objective - Vital Signs/Intake and Output Vital Signs (last 24 hours): Temp Pulse Resp BP Pulse Ox 98.5 F 85 20 170/89 H 98 06/14/17 07:56 06/14/17 07:56 06/14/17 07:56 06/14/17 07:56 06/14/17 07:56 Intake and Output: 06/14/17 06/14/17 06:59 18:59 Intake Total 150 880 Balance 150 880 - Medications Medications: Current Medications Amlodipine Besylate (Norvasc) 10 mg PO DAILY [facility] Last Admin: 06/14/17 09:18 Dose: 10 mg Aspirin (Aspirin Chewable) 81 mg PO DAILY [facility] Last Admin: 06/14/17 09:17 Dose: 81 mg Epoetin Oumar (Procrit) 8,000 unit [place] [facility] Last Admin: 06/13/17 12:16 Dose: 8,000 unit Heparin Sodium (Porcine) (Heparin) 5,000 units SC Q12 [facility] Last Admin: 06/14/17 09:18 Dose: Not Given Heparin Sodium (Porcine) (Heparin) 2,000 units IVP [facility] Hydralazine HCl (Apresoline) 25 mg PO Q6 [facility] Last Admin: 06/14/17 12:02 Dose: 25 mg Vancomycin HCl 500 mg/ Sodium (Chloride) 100 mls @ 100 mls/hr IVPB [facility] PRN Reason: Protocol Stop: 06/15/17 09:59 Last Admin: 06/13/17 14:01 Dose: 100 mls/hr Insulin Aspart (Novolog) 0 unit SC ACHS [facility] PRN Reason: Protocol Last Admin: 06/14/17 12:03 Dose: 2 unit Ondansetron HCl (Zofran Inj) 4 mg IVP Q6 PRN PRN Reason: Nausea/Vomiting Last Admin: 06/11/17 18:55 Dose: 4 mg Oxycodone/Acetaminophen (Percocet 5/325 Mg Tab) 1 tab PO Q6H PRN PRN Reason: Pain, severe (8-10) Stop: 06/14/17 23:07 Last Admin: 06/14/17 12:01 Dose: 1 tab Pantoprazole Sodium (Protonix Inj) 40 mg IVP DAILY [facility] Last Admin: 06/14/17 09:18 Dose: 40 mg Rosuvastatin Calcium (Crestor) 10 mg PO HS [facility] Last Admin: 06/13/17 21:34 Dose: 10 mg Sevelamer Carbonate (Renvela) 800 mg PO TIDCC [facility] Last Admin: 06/14/17 12:02 Dose: 800 mg Sucralfate (Carafate Tab) 1 gm PO Q12 [facility] Last Admin: 06/14/17 09:18 Dose: 1 gm Vitamin B Complex/Vit C/Folic Acid (Nephro-Yomi) 1 tab PO 0800 [facility] Last Admin: 06/14/17 07:53 Dose: 1 tab - Labs Labs: 06/12/17 09:16 06/12/17 09:16
[2017-06-14 16:55] VITALS: BP 166/84; PULSE 87; TEMP 98
== END 2017-06-14 18:30 | disposition home or self-care (01) ==
LOC: C.ER 08:59 → C.9E 11:23 → C.3T 11:47
PROVIDERS: ADMIT Internal Medicine Pulmonary Disease; ATTEND Internal Medicine Pulmonary Disease
DX: K52.9 Noninfective gastroenteritis and colitis, unspecified (principal); K29.70 Gastritis, unspecified, without bleeding; E11.22 Type 2 diabetes mellitus with diabetic chronic kidney disease; E11.65 Type 2 diabetes mellitus with hyperglycemia; I13.2 Hypertensive heart and chronic kidney disease with heart failure and with stage 5 chronic kidney disease, or end stage renal disease; I50.9 Heart failure, unspecified; N18.6 End stage renal disease; Z99.2 Dependence on renal dialysis; Z79.4 Long term (current) use of insulin; E11.43 Type 2 diabetes mellitus with diabetic autonomic (poly)neuropathy; K31.84 Gastroparesis; E11.649 Type 2 diabetes mellitus with hypoglycemia without coma
CPT/HCPCS: 36415; 80048; 80053; 82009; 82150; 82948; 83690; 84100; 85025; 85027; 96372; 96374; 99285; C9113; G0257; G0378; J0780; J0885; J1644; J2270; J2405; J3370; J7040

== ENCOUNTER 2017-07-13 16:42 | Inpatient (IN) | payer MEDICARE, MEDICAID ==
[2017-07-13] MEDS ORDERED: DiphenhydrAMINE 50 mg/ml Inj IVP STA (16:58)
[2017-07-13 17:46] LABS: BASO # 0.1 K/uL (0.0-0.2); BASO % 0.9 % (0.0-2.0); EOS # 0.2 K/uL (0.0-0.7); EOS % 1.8 % (0.0-4.0); HEMOGLOBIN 14.1 g/dL (12.0-18.0); LYMPH # 0.9 K/uL (1.0-4.3); MEAN CELL VOLUME 90.4 fL (80.0-94.0); MEAN CORPUSCULAR HEMOGLOBIN 29.9 pg (27.0-31.0); MEAN CORPUSCULAR HGB CONC 33.1 g/dL (33.0-37.0); MEAN PLATELET VOLUME 8.6 fL (7.2-11.7); MONO # 0.9 K/uL (0.0-0.8); NEUT # 7.5 K/uL (1.8-7.0); NEUT % 78.3 % (50.0-75.0); NRBC % 0.1 % (0.0-2.0); PLATELET COUNT 233 K/uL (130-400); RBC 4.71 Mil/uL (4.40-5.90); RED CELL DISTRIBUTION WIDTH 19.5 % (11.5-14.5); WHITE BLOOD COUNT 9.5 K/uL (4.8-10.8)
[2017-07-13] MEDS ORDERED: DiphenhydrAMINE 50 mg/ml Inj ONE (17:48)
--- NOTE | 2017-07-13 17:56 | C.PDOC ---
History Of Present Illness 37 year old male, whose PMHx includes Gastroparesis and ESRD, presents to the ED for evaluation of intractable vomiting. Patient states he was recently evaluated at [place] and admitted for a few days. Patient reports narcotic use, and is requesting pain medication. Patient denies fever, chills. Patient reports dialysis today Time Seen by Provider: 07/13/17 16:50 Chief Complaint (Nursing): Abdominal Pain History Per: Patient History/Exam Limitations: no limitations Onset/Duration Of Symptoms: Hrs Current Symptoms Are (Timing): Still Present Quality Of Discomfort: "Pain" Associated Symptoms: Vomiting. denies: Fever, Chills Additional History Per: Patient Past Medical History Reviewed: Historical Data, Nursing Documentation, Vital Signs Vital Signs: Last Vital Signs Temp 99 F 07/13/17 18:39 Pulse 53 L 07/13/17 18:39 Resp 18 07/13/17 18:39 BP 234/113 H 07/13/17 18:39 Pulse Ox 100 07/13/17 18:55 - Medical History PMH: Anemia, CHF, Diabetes (type I; ), Gastritis (gastroparesis), HTN, Hypercholesterolemia, Peripheral Edema, End Stage Renal Disease, Chronic Kidney Disease Denies: HIV, Kidney Stones Surgical History: No Surg Hx - [facility] Procedures (07/04/17) (11/12/16) BYPASS LEFT BRACHIAL ARTERY TO UPPER ARM VEIN, OPEN APPROACH (02/17/16) DILATION OF LEFT BASILIC VEIN, PERCUTANEOUS APPROACH (11/06/16) EXCISION OF ASCENDING COLON, ENDO, DIAGN (12/19/15) EXCISION OF DESCENDING COLON, ENDO, DIAGN (10/22/16) EXCISION OF DUODENUM, ENDO, DIAGN (03/25/16) EXCISION OF LARGE INTESTINE, ENDO, DIAGN (05/06/16) EXCISION OF MIDDLE ESOPHAGUS, ENDO, DIAGN (03/25/16) EXCISION OF STOMACH, ENDO, DIAGN (02/05/17) EXCISION OF TRANSVERSE COLON, ENDO, DIAGN (05/06/16) INSERTION OF INFUSION DEV INTO SUP VENA CAVA, PERC APPROACH (12/19/15) PERFORMANCE OF URINARY FILTRATION, MULTIPLE (10/28/16) PERFORMANCE OF URINARY FILTRATION, SINGLE (11/06/16) PLAIN RADIOGRAPHY OF DIALYSIS SHUNT USING OTH CONTRAST (05/20/17) REPOSITION LEFT BASILIC VEIN, OPEN APPROACH (05/25/16) ULTRASONOGRAPHY OF SUPERIOR VENA CAVA, GUIDANCE (12/19/15) Family History: States: Unknown Family Hx, Diabetes, Hypertension - Social History Hx Tobacco Use: Yes (some days) Hx Alcohol Use: No Hx Substance Use: No (use marijuana) - Immunization History Hx Tetanus Toxoid Vaccination: Yes Hx Influenza Vaccination: Yes Hx Pneumococcal Vaccination: Yes Review Of Systems Constitutional: Negative for: Fever, Chills Gastrointestinal: Positive for: Vomiting Physical Exam - Physical Exam Appears: Non-toxic, Other (actively vomiting ) Skin: Normal Color, Warm, Dry Head: Atraumatic, Normacephalic Eye(s): bilateral: Normal Inspection Oral Mucosa: Moist Neck: Supple Chest: Symmetrical, No Deformity, No Tenderness Cardiovascular: Rhythm Regular, No Murmur Respiratory: Normal Breath Sounds, No Rales, No Rhonchi, No Wheezing Gastrointestinal/Abdominal: Soft, Tenderness (diffuse ), No Guarding, No Rebound Extremity: Normal ROM, Capillary Refill (less than 2 seconds ) Neurological/Psych: Oriented x3, Normal Speech, Normal Cognition ED Course And Treatment - Laboratory Results Result Diagrams: 07/13/17 17:42 07/13/17 17:42 Lab Interpretation: Abnormal ECG: Interpreted By Me ECG Rhythm: Sinus Rhythm ECG Interpretation: No Acute Changes Rate From EC O2 Sat by Pulse Oximetry: 100 (on RA) Pulse Ox Interpretation: Normal Progress Note: Bloodwork, urinalysis, EKG ordered and reviewed. Benadryl IVP, Pepcid IVP and Zofran IVP administered. Treated with norvasc 10 mg PO and reglan 10 mg IV. Treated with morphine 4 mg IV for abdominal pain Reassessment Condition: Improved - Physician Consult Information Physician Contacted: Lucero Chadwick Outcome Of Conversation: admit to OBS Disposition Discussed With : Lucero Chadwick Doctor Will See Patient In The: Hospital - Disposition Disposition: HOSPITALIZED Disposition Time: 19:00 Condition: STABLE - POA Present On Arrival: None - Clinical Impression Clinical Impression: Acute renal failure, Vomiting, Gastroparesis due to DM, Uncontrolled hypertension - PA / UTILIZATION COORDINATOR / Resident Statement MD/DO has reviewed & agrees with the documentation as recorded. - Scribe Statement The provider has reviewed the documentation as recorded by the Scribe (Hemalatha Dixon) All medical record entries made by the Scribe were at my direction and personally dictated by me. I have reviewed the chart and agree that the record accurately reflects my personal performance of the history, physical exam, medical decision making, and the department course for this patient. I have also personally directed, reviewed, and agree with the discharge instructions and disposition. Decision To Admit - Pt Status Changed To: Hospital Disposition Of: Observation - . Bed Request Type: Regular Admitting Physician: Lucero Chadwick Patient Diagnosis: Acute renal failure, Vomiting
[2017-07-13 17:58] LABS: ALBUMIN 3.7 g/dL (3.5-5.0); CALCIUM 8.6 mg/dl (8.6-10.4)
[2017-07-13] MEDS ORDERED: Morphine 4 MG/ML VIAL ONE (18:43)
[2017-07-13 18:46] LABS: EOSINOPHIL 1 % (0-4); LYMPHOCYTE 7 % (20-40); TOTAL CELLS COUNTED 100
[2017-07-13 18:47] LABS: ANISOCYTOSIS SLIGHT; MONOCYTE 5 % (0-10); NEUTROPHIL 87 % (50-75); PLATELET ESTIMATE NORMAL (NORMAL)
[2017-07-13] MEDS ORDERED: Labetalol 25mg/5ml Syringe IVP STA (19:30)
[2017-07-13] MEDS ORDERED: Labetalol 25mg/5ml Syringe ONE (19:36)
[2017-07-14] MEDS ORDERED: Morphine 4 MG/ML VIAL IVP STA (03:55)
[2017-07-14] MEDS ORDERED: (Novolog) Insulin Aspart, Recombinant 100 u/ml 10 ml vial SC SCH (07:30)
[2017-07-14] MEDS: (Novolog) Insulin Aspart, Recombinant 100 u/ml 10 ml vial SC SCH ×3 (10:53→21:35)
[2017-07-14 11:35] LABS: BASO % 0.2 % (0.0-2.0); HEMOGLOBIN 14.2 g/dL (12.0-18.0); LYMPH # 0.5 K/uL (1.0-4.3); LYMPH % 4.1 % (20.0-40.0); MEAN CELL VOLUME 90.1 fL (80.0-94.0); MEAN CORPUSCULAR HEMOGLOBIN 29.4 pg (27.0-31.0); MEAN CORPUSCULAR HGB CONC 32.7 g/dL (33.0-37.0); MEAN PLATELET VOLUME 9.2 fL (7.2-11.7); MONO # 1.1 K/uL (0.0-0.8); NEUT # 11.6 K/uL (1.8-7.0); NEUT % 87.7 % (50.0-75.0); PLATELET COUNT 285 K/uL (130-400); RBC 4.82 Mil/uL (4.40-5.90); RED CELL DISTRIBUTION WIDTH 19.8 % (11.5-14.5); WHITE BLOOD COUNT 13.2 K/uL (4.8-10.8)
[2017-07-14] MEDS: Morphine 4 MG/ML VIAL IVP PRN ×4 (11:53→23:56)
[2017-07-14 12:12] LABS: ANISOCYTOSIS MODERATE; BANDS 2 % (0-2); LYMPHOCYTE 4 % (20-40); MONOCYTE 5 % (0-10); NEUTROPHIL 89 % (50-75); PLATELET ESTIMATE NORMAL (NORMAL); TOTAL CELLS COUNTED 100
[2017-07-14 12:13] LABS: TARGET CELLS SLIGHT
[2017-07-14] MEDS: Sodium Chloride 0.45% 1,000 ML IV SCH (12:17)
[2017-07-14 12:19] LABS: ALBUMIN 3.9 g/dL (3.5-5.0); CALCIUM 8.3 mg/dl (8.6-10.4)
--- NOTE | 2017-07-14 14:30 | CARD ---
APPROVED REPORT EKG Measurement Heart [id number] [place] [id number] [id number] <Conclusion> Sinus rhythm with premature supraventricular complexes Possible Left atrial enlargement T wave abnormality, consider lateral ischemia Prolonged QT Abnormal ECG
--- NOTE | 2017-07-14 14:38 | CP.PCM.PN ---
Subjective - Date & Time of Evaluation Date of Evaluation: 07/14/17 Time of Evaluation: 08:00 - Subjective Subjective: Medicine Progress Note- Dr. Chadwick's service: Pt seen and examined. He was crying and stating he has full body pain which he has chronically. HE states he vomited dark red material this morning. His pressure was high but the patient was refusing oral medications due to nausea. Objective - Vital Signs/Intake and Output Vital Signs (last 24 hours): Temp Pulse Resp BP Pulse Ox 97.6 F 99 H 20 188/95 H 98 07/14/17 08:00 07/14/17 10:45 07/14/17 08:00 07/14/17 10:45 07/14/17 08:00 - Medications Medications: Current Medications Amlodipine Besylate (Norvasc) 10 mg PO DAILY [facility] Last Admin: 07/14/17 10:44 Dose: Not Given Aspirin (Aspirin Chewable) 81 mg PO DAILY [facility] Last Admin: 07/14/17 10:44 Dose: Not Given Clonidine HCl (Catapres-Tts3 0.3 Mg/24 Hr) 1 patch TD Q7D@1000 [facility] Heparin Sodium (Porcine) (Heparin) 2,000 units IVP MWF [facility] Hydralazine HCl (Apresoline) 25 mg PO Q6 [facility] Last Admin: 07/14/17 11:59 Dose: Not Given Sodium Chloride (Sodium Chloride 0.45%) 1,000 mls @ 40 mls/hr IV .Q24H [facility] Last Admin: 07/14/17 12:17 Dose: 40 mls/hr Metronidazole (Flagyl) 500 mg in 100 mls @ 100 mls/hr IVPB Q8H [facility] PRN Reason: Protocol Insulin Aspart (Novolog) 0 unit SC ACHS [facility] PRN Reason: Protocol Last Admin: 07/14/17 10:53 Dose: 12 unit Metoclopramide HCl (Reglan) 10 mg IVP Q6H [facility] Last Admin: 07/14/17 14:11 Dose: 10 mg Morphine Sulfate (Morphine) 2 mg IVP Q4 PRN PRN Reason: Pain, severe (8-10) Last Admin: 07/14/17 11:53 Dose: 2 mg Ondansetron HCl (Zofran Inj) 4 mg IVP Q6 PRN PRN Reason: Nausea/Vomiting Last Admin: 07/14/17 08:42 Dose: 4 mg Pantoprazole Sodium (Protonix Inj) 40 mg IVP DAILY [facility] Last Admin: 07/14/17 10:44 Dose: 40 mg - Labs Labs: 07/14/17 11:26 07/14/17 11:26 - Constitutional Appears: No Acute Distress, Chronically Ill - Head Exam Head Exam: ATRAUMATIC, NORMAL INSPECTION - Eye Exam Eye Exam: EOMI - Respiratory Exam Respiratory Exam: Clear to Ausculation Bilateral, NORMAL BREATHING PATTERN - Cardiovascular Exam Cardiovascular Exam: REGULAR RHYTHM, +S1, +S2 - GI/Abdominal Exam GI & Abdominal Exam: Tenderness, Normal Bowel Sounds. absent: Distended, Firm, Guarding - Extremities Exam Extremities Exam: Normal Inspection - Back Exam Back Exam: NORMAL INSPECTION - Neurological Exam Neurological Exam: Alert, Awake, Oriented x3 - Psychiatric Exam Psychiatric exam: Agitated, Anxious Assessment and Plan - Assessment and Plan (Free Text) Assessment: Coffee ground emesis Dr. Armstrong, GI consulted, help appreciated - likely endoscopy tomorrow? Protonix 40mg IVP daily 1/2 nS at 40cc/hour Zofran prn nausea Flagyl 500mg IVPB Q8 hours Gastroparesis Patient with intermittent abdominal pain Patient with poorly controlled diabetes Reglan 10mg IVP Q6 hours Zofran Recommendations to eat small meals at a time slowly. Morphine 2mg IVP prn pain, severe ESRD on HD MWF Nephrology on the case. Dr. Larsen Renal diet Renvela 160mg PO TID HD M// Heparin 2000 U IVP [facility] IDDM Accuchecks ACHS ISS ASA 81mg PO Daily Crestor 10 mg PO Daily HTN Norvasc 10 mg PO Daily Hydralazine 25 mg po q6 Monitor Patient refusin yeni medications, will add catapres patch Prophylaxis SCDs Protonix 40mg IVP daily No chemical anticoagulation for procedure tomorrow All management per Dr. Chadwick.
[2017-07-14 15:25] LABS: PROTHROMBIN TIME 11.1 SECONDS (9.7-12.2)
[2017-07-14] MEDS: metroNIDAZOLE IV 500 mg/100 ml 500 MG/100 ML BAG IVPB SCH ×2 (16:16→23:57)
[2017-07-15] MEDS: Morphine 4 MG/ML VIAL IVP PRN ×4 (04:11→20:37)
--- NOTE | 2017-07-15 06:15 | CON ---
DATE: 07/14/2017 I was called for GI consultation by the admitting MD. The patient is seen and fully examined for GI consultation on 07/14/2017 as requested by the admitting medical staff. The entire chart is reviewed including, but not limited to, the most recent lab and radiology study results, current and previous medication lists, current and previous medical events, allergy to medication list as well as all the available current and previous medical records. Case was discussed with the admitting medical team at length on 07/14/2017 before and immediately after my GI consultation. HISTORY OF PRESENT ILLNESS: This is a 37-year-old male, very well-known case for me from previous admissions, who was admitted to the hospital through the emergency room with recurrent episodes of nausea and vomiting of fresh blood and coffee-ground material with severe abdominal pain, very poor oral intake with generalized weakness and malaise. The patient also reported some change of the color of the bowel movement recently. The patient admitted narcotic use recently for his pain. No reported actual chest pain, palpitation, significant shortness of breath, chills or fever. PAST MEDICAL HISTORY: Including but not limited to, 1. Diabetes mellitus, with diabetic gastroparesis. 2. Previous GI bleeding with gastritis. 3. Known history of hypertension, hyperlipidemia, chronic renal disease with end-stage renal disease, on hemodialysis. 4. Known history of peripheral edema syndrome. 5. History of anemia. 6. Reported history of pancreatitis on and off in the past. 7. More than one upper endoscopy before due to his recurrent upper GI bleeding. FAMILY HISTORY: Unknown. SOCIAL HISTORY Positive for cigarette smoking including marijuana use. CURRENT MEDICATIONS: Post-admission medication list is seen. ALLERGIES TO MEDICATIONS: UNCLEAR. LABORATORY DATA: After being admitted to the hospital, the patient was found to have normal CBC, which could be secondary to hemoconcentration with a CO2 content of 32 indicative of respiratory alkalosis, BUN 20, creatinine 4, blood glucose level 255. PHYSICAL EXAMINATION: GENERAL: A 37-year-old male appears to be awake, alert and oriented, complaining of severe generalized weakness and malaise. VITAL SIGNS: Afebrile with pulse of 58, respiratory rate 20 to 22, blood pressure of 210/106. HEENT: Showed pale, dry oral mucous membranes mildly, with nonicteric sclerae. LYMPH NODES: No lymphadenitis or lymphadenopathy. LUNGS: Few mild crepitation. Breathing sounds are present bilaterally. HEART: Positive S1 and S2. ABDOMEN: Soft with mild generalized tenderness mainly in the midepigastric and midabdominal line. No mass or organomegaly. No rebound tenderness or guarding. RECTAL EXAMINATION: The patient refused. EXTREMITIES: With edematous changes, especially in the lower extremities. No clubbing or cyanosis. NEUROLOGIC: No reported new neurological deficits, sensory or motor. No new reported focal deficits. IMPRESSION: 1. Recurrent episodes of upper gastrointestinal bleeding, to rule out gastric versus duodenal ulcer. 2. Recurrent episodes of diabetic gastroparesis. 3. Poorly controlled diabetes mellitus. 4. Poorly controlled hypertension. 5. Endstage renal disease, on hemodialysis. 6. To rule out recurrent episodes of acute pancreatitis. 7. Past medical history as mentioned above. SUGGESTIONS: 1. Agree with your plan. 2. Reglan IV. 3. Proton pump inhibitors. 4. Careful rehydration. 5. Serum lipase and amylase level. 6. Abdominal ultrasound with attention to the biliary tree and pancreas. 7. Endoscopic evaluation of the upper GI tract when the patient is more stable clinically. Further recommendation to follow. Thank you for letting me to participate in your patient's case management. We will follow up closely with you. Cassy Hernandez MD
[2017-07-15 07:25] LABS: BASO # 0.2 K/uL (0.0-0.2); BASO % 1.2 % (0.0-2.0); EOS # 0.2 K/uL (0.0-0.7); EOS % 1.2 % (0.0-4.0); LYMPH # 1.9 K/uL (1.0-4.3); MEAN CELL VOLUME 89.9 fL (80.0-94.0); MEAN CORPUSCULAR HEMOGLOBIN 29.7 pg (27.0-31.0); MEAN CORPUSCULAR HGB CONC 33.1 g/dL (33.0-37.0); MONO # 1.3 K/uL (0.0-0.8); MONO % 8.2 % (0.0-10.0); NEUT # 12.3 K/uL (1.8-7.0); NEUT % 77.4 % (50.0-75.0); RBC 4.36 Mil/uL (4.40-5.90); RED CELL DISTRIBUTION WIDTH 19.7 % (11.5-14.5); WHITE BLOOD COUNT 15.9 K/uL (4.8-10.8)
[2017-07-15] MEDS ORDERED: Midazolam 2 MG/2 ML VIAL ONE (08:02)
[2017-07-15] MEDS ORDERED: Propofol 10 mg/ml Inj (20 ML) ONE (08:02)
[2017-07-15] MEDS: (Novolog) Insulin Aspart, Recombinant 100 u/ml 10 ml vial SC SCH ×4 (08:02→21:55)
[2017-07-15 08:27] LABS: ALB/GLOB RATIO 0.9 (1.0-2.1); ALBUMIN 3.3 g/dL (3.5-5.0); CALCIUM 7.2 mg/dl (8.6-10.4)
--- NOTE | 2017-07-15 08:49 | CP.PCM.PN ---
Subjective - Date & Time of Evaluation Date of Evaluation: 07/15/17 Time of Evaluation: 08:47 - Subjective Subjective: Progress Note for Dr. Chadwick Patient seen and examined at bedside. Patient reports his nausea, vomiting improved but still complains of mild abdominal pain. Patient is aware of hemodialysis today. Patient denies fever, chills, shortness of breath, or chest pain. Objective - Vital Signs/Intake and Output Vital Signs (last 24 hours): Temp Pulse Resp BP Pulse Ox 98.5 F 80 12 133/64 100 07/15/17 08:43 07/15/17 08:45 07/15/17 08:45 07/15/17 08:45 07/15/17 08:45 Intake and Output: 07/15/17 07/15/17 06:59 18:59 Intake Total 120 50 Balance 120 50 - Medications Medications: Current Medications Amlodipine Besylate (Norvasc) 10 mg PO DAILY [facility] Last Admin: 07/15/17 06:34 Dose: 10 mg Aspirin (Aspirin Chewable) 81 mg PO DAILY [facility] Last Admin: 07/14/17 10:44 Dose: Not Given Clonidine HCl (Catapres-Tts3 0.3 Mg/24 Hr) 1 patch TD Q7D@1000 [facility] Fluconazole (Diflucan) 100 mg PO DAILY [facility] PRN Reason: Protocol Heparin Sodium (Porcine) (Heparin) 2,000 units IVP MWF [facility] Hydralazine HCl (Apresoline) 25 mg PO Q6 [facility] Last Admin: 07/15/17 06:33 Dose: 25 mg Sodium Chloride (Sodium Chloride 0.45%) 1,000 mls @ 40 mls/hr IV .Q24H [facility] Last Admin: 07/14/17 12:17 Dose: 40 mls/hr Metronidazole (Flagyl) 500 mg in 100 mls @ 100 mls/hr IVPB Q8H [facility] PRN Reason: Protocol Last Admin: 07/14/17 23:57 Dose: 100 mls/hr Insulin Aspart (Novolog) 0 unit SC ACHS [facility] PRN Reason: Protocol Last Admin: 07/15/17 08:02 Dose: Not Given Metoclopramide HCl (Reglan) 10 mg IVP Q6H [facility] Last Admin: 07/15/17 02:39 Dose: 10 mg Morphine Sulfate (Morphine) 2 mg IVP Q4 [facility]N PRN Reason: Pain, severe (8-10) Last Admin: 07/15/17 04:11 Dose: 2 mg Ondansetron HCl (Zofran Inj) 4 mg IVP Q6 [facility] PRN Reason: Nausea/Vomiting Last Admin: 07/14/17 08:42 Dose: 4 mg Pantoprazole Sodium (Protonix Inj) 40 mg IVP DAILY [facility] Last Admin: 07/14/17 10:44 Dose: 40 mg - Labs Labs: 07/15/17 07:13 07/15/17 07:13 PT 11.1 SECONDS (9.7-12.2) 07/14/17 15:05 INR 1.0 07/14/17 15:05 APTT 31 SECONDS (21-34) 07/14/17 15:05 - Additional Findings Additional findings: - Constitutional Appears: No Acute Distress, Chronically Ill - Head Exam Head Exam: ATRAUMATIC, NORMAL INSPECTION - Eye Exam Eye Exam: EOMI - Respiratory Exam Respiratory Exam: Clear to Ausculation Bilateral, NORMAL BREATHING PATTERN - Cardiovascular Exam Cardiovascular Exam: REGULAR RHYTHM, +S1, +S2 - GI/Abdominal Exam GI & Abdominal Exam: Tenderness, Normal Bowel Sounds. absent: Distended, Firm, Guarding - Extremities Exam Extremities Exam: Normal Inspection - Back Exam Back Exam: NORMAL INSPECTION - Neurological Exam Neurological Exam: Alert, Awake, Oriented x3 - Psychiatric Exam Psychiatric exam: Agitated, Anxious Assessment and Plan - Assessment and Plan (Free Text) Assessment: Candidiasis esophagitis Dr. Armstrong, GI consulted, help appreciated - endoscopy this morning Protonix 40mg IVP daily 1/2 nS at 40cc/hour Zofran prn nausea Flagyl 500mg IVPB Q8 hours Diflucan 100mg PO for 2 weeks Follow up for biopsy results Gastroparesis Patient with intermittent abdominal pain Patient with poorly controlled diabetes Reglan 10mg IVP Q6 hours Zofran Recommendations to eat small meals at a time slowly. Morphine 2mg IVP prn pain, severe ESRD on HD MWF Nephrology on the case. Dr. Larsen Renal diet Renvela 160mg PO TID HD M// Heparin 2000 U IVP [facility] IDDM Accuchecks ACHS ISS ASA 81mg PO Daily Crestor 10 mg PO Daily HTN Norvasc 10 mg PO Daily Hydralazine 25 mg po q6 Monitor Patient refusing oral medications, will add catapres patch Prophylaxis SCDs Protonix 40mg IVP daily All management per Dr. Chadwick.
[2017-07-15] MEDS: metroNIDAZOLE IV 500 mg/100 ml 500 MG/100 ML BAG IVPB SCH ×2 (09:31→15:55)
--- NOTE | 2017-07-15 15:01 | CP.PCM.CON ---
History of Present Illness - History of Present Illness History of Present Illness: renal note Pt seen and examined plan for HD tomorrow as per [facility] schedule Past Patient History - Infectious Disease Hx of Infectious Diseases: None - Past Medical History & Family History Past Medical History?: Yes - Past Social History Smoking Status: Light Smoker < 10 Cigarettes Daily - CARDIAC Hx Congestive Heart Failure: Yes Hx Hypercholesterolemia: Yes Hx Hypertension: Yes Hx Peripheral Edema: Yes - PULMONARY Hx Respiratory Disorders: No - NEUROLOGICAL Hx Neurological Disorder: No - HEENT Hx HEENT Problems: Yes Hx Cataracts: Yes - RENAL Hx Chronic Kidney Disease: Yes Hx Kidney Stones: No - ENDOCRINE/METABOLIC Hx Endocrine Disorders: Yes Hx Diabetes Mellitus Type 2: Yes - HEMATOLOGICAL/ONCOLOGICAL Hx Anemia: Yes Hx Human Immunodeficiency Virus (HIV): No - INTEGUMENTARY Hx Dermatological Problems: No - MUSCULOSKELETAL/RHEUMATOLOGICAL Hx Falls: Yes - GASTROINTESTINAL Hx Gastritis: Yes (gastroparesis) - GENITOURINARY/GYNECOLOGICAL Hx Genitourinary Disorders: No - PSYCHIATRIC Hx Substance Use: No (use marijuana) - SURGICAL HISTORY Hx Surgeries: Yes Hx Cataract Extraction: Yes (bilateral) Hx Vascular Surgery: Yes Hx Vascular Access Device: Yes Other/Comment: Hx RT.PERMACATH INSERTION 12/30. 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 Hx UNDESCENDED TESTES LT. REMOVED DURING CHILDHOOD - ANESTHESIA Hx Anesthesia: Yes Hx Anesthesia Reactions: No Hx Malignant Hyperthermia: No Meds Allergies/Adverse Reactions: Allergies Allergy/AdvReac Type Severity Reaction Status Date / Time No Known Allergies Allergy Verified 07/13/17 16:52 - Medications Medications: Current Medications Amlodipine Besylate (Norvasc) 10 mg PO DAILY [facility] Last Admin: 07/14/17 10:44 Dose: Not Given Aspirin (Aspirin Chewable) 81 mg PO DAILY [facility] Last Admin: 07/14/17 10:44 Dose: Not Given Clonidine HCl (Catapres-Tts3 0.3 Mg/24 Hr) 1 patch TD Q7D@1000 [facility] Heparin Sodium (Porcine) (Heparin) 2,000 units IVP [facility] Hydralazine HCl (Apresoline) 25 mg PO Q6 [facility] Last Admin: 07/14/17 11:59 Dose: Not Given Sodium Chloride (Sodium Chloride 0.45%) 1,000 mls @ 40 mls/hr IV .Q24H [facility] Last Admin: 07/14/17 12:17 Dose: 40 mls/hr Metronidazole (Flagyl) 500 mg in 100 mls @ 100 mls/hr IVPB Q8H [facility] PRN Reason: Protocol Insulin Aspart (Novolog) 0 unit SC ACHS [facility] PRN Reason: Protocol Last Admin: 07/14/17 10:53 Dose: 12 unit Metoclopramide HCl (Reglan) 10 mg IVP Q6H [facility] Last Admin: 07/14/17 14:11 Dose: 10 mg Morphine Sulfate (Morphine) 2 mg IVP Q4 [facility]N PRN Reason: Pain, severe (8-10) Last Admin: 07/14/17 11:53 Dose: 2 mg Ondansetron HCl (Zofran Inj) 4 mg IVP Q6 [facility] PRN Reason: Nausea/Vomiting Last Admin: 07/14/17 08:42 Dose: 4 mg Pantoprazole Sodium (Protonix Inj) 40 mg IVP DAILY [facility] Last Admin: 07/14/17 10:44 Dose: 40 mg Results - Vital Signs Recent Vital Signs: Last Vital Signs Temp 97.6 F 07/14/17 08:00 Pulse 99 H 07/14/17 10:45 Resp 20 07/14/17 08:00 BP 188/95 H 07/14/17 10:45 Pulse Ox 98 07/14/17 14:00 - Labs Result Diagrams: 07/14/17 11:26 07/14/17 11:26 Labs: Laboratory Results - last 24 hr 07/13/17 07/13/17 07/13/17 16:56 17:42 17:42 WBC 9.5 RBC 4.71 Hgb 14.1 D Hct 42.6 MCV 90.4 D MCH 29.9 MCHC 33.1 RDW 19.5 H Plt Count 233 D MPV 8.6 Neut % (Auto) 78.3 H Lymph % (Auto) 9.0 L [place] % (Auto) 10.0 Eos % (Auto) 1.8 Baso % (Auto) 0.9 Neut # (Auto) 7.5 H Lymph # (Auto) 0.9 L [place] # (Auto) 0.9 H Eos # (Auto) 0.2 Baso # (Auto) 0.1 Neutrophils % (Manual) 87 H Band Neutrophils % Lymphocytes % (Manual) 7 L Monocytes % (Manual) 5 Eosinophils % (Manual) 1 Platelet Estimate Normal Anisocytosis (manual) Slight Target Cells Sodium 136 Potassium 3.6 Chloride 92 L Carbon Dioxide 32 H Anion Gap 16 BUN 20 Creatinine 4.0 H Est GFR ( Amer) 21 Est GFR (Non-Af Amer) 17 POC Glucose (mg/dL) 225 H Random Glucose 255 H Calcium 8.6 Phosphorus Magnesium Total Bilirubin 1.0 AST 27 ALT 17 L D Alkaline Phosphatase 149 H D Total Protein 7.6 Albumin 3.7 Globulin 3.8 Albumin/Globulin Ratio 1.0 Lipase 36 07/14/17 07/14/17 07/14/17 07:20 10:50 11:26 WBC 13.2 H RBC 4.82 Hgb 14.2 Hct 43.4 MCV 90.1 MCH 29.4 MCHC 32.7 L RDW 19.8 H Plt Count 285 MPV 9.2 Neut % (Auto) 87.7 H Lymph % (Auto) 4.1 L [place] % (Auto) 8.0 Eos % (Auto) 0.0 Baso % (Auto) 0.2 Neut # (Auto) 11.6 H Lymph # (Auto) 0.5 L [place] # (Auto) 1.1 H Eos # (Auto) 0.0 Baso # (Auto) 0.0 Neutrophils % (Manual) 89 H Band Neutrophils % 2 Lymphocytes % (Manual) 4 L Monocytes % (Manual) 5 Eosinophils % (Manual) Platelet Estimate Normal Anisocytosis (manual) Moderate Target Cells Slight Sodium Potassium Chloride Carbon Dioxide Anion Gap BUN Creatinine Est GFR ( Amer) Est GFR (Non-Af Amer) POC Glucose (mg/dL) > 500 H* 408 H* Random Glucose Calcium Phosphorus Magnesium Total Bilirubin AST ALT Alkaline Phosphatase Total Protein Albumin Globulin Albumin/Globulin Ratio Lipase 07/14/17 07/14/17 11:26 11:35 WBC RBC Hgb Hct MCV MCH MCHC RDW Plt Count MPV Neut % (Auto) Lymph % (Auto) [place] % (Auto) Eos % (Auto) Baso % (Auto) Neut # (Auto) Lymph # (Auto) [place] # (Auto) Eos # (Auto) Baso # (Auto) Neutrophils % (Manual) Band Neutrophils % Lymphocytes % (Manual) Monocytes % (Manual) Eosinophils % (Manual) Platelet Estimate Anisocytosis (manual) Target Cells Sodium 140 Potassium 3.5 L Chloride 86 L Carbon Dioxide 33 H Anion Gap 25 H BUN 32 H Creatinine 5.8 H Est GFR ( Amer) 13 Est GFR (Non-Af Amer) 11 POC Glucose (mg/dL) 329 H Random Glucose 383 H Calcium 8.3 L Phosphorus 7.1 H Magnesium 2.0 Total Bilirubin 0.8 AST 30 ALT 9 L D Alkaline Phosphatase 138 H Total Protein 7.8 Albumin 3.9 Globulin 3.9 Albumin/Globulin Ratio 1.0 Lipase
--- NOTE | 2017-07-15 15:02 | CP.PCM.PN ---
Subjective - Date & Time of Evaluation Date of Evaluation: 07/15/17 Time of Evaluation: 15:01 - Subjective Subjective: renal note Pt seen and examined on dialysis plan for HD today as per [facility] schedule Objective - Vital Signs/Intake and Output Vital Signs (last 24 hours): Temp Pulse Resp BP Pulse Ox 98 F 81 18 163/83 H 97 07/15/17 14:20 07/15/17 14:20 07/15/17 14:20 07/15/17 14:20 07/15/17 14:20 Intake and Output: 07/15/17 07/15/17 06:59 18:59 Intake Total 120 50 Balance 120 50 - Medications Medications: Current Medications Amlodipine Besylate (Norvasc) 10 mg PO DAILY [facility] Last Admin: 07/15/17 06:34 Dose: 10 mg Aspirin (Aspirin Chewable) 81 mg PO DAILY [facility] Last Admin: 07/14/17 10:44 Dose: Not Given Clonidine HCl (Catapres-Tts3 0.3 Mg/24 Hr) 1 patch TD Q7D@1000 [facility] Fluconazole (Diflucan) 100 mg PO DAILY [facility] PRN Reason: Protocol Heparin Sodium (Porcine) (Heparin) 2,000 units IVP [facility] Hydralazine HCl (Apresoline) 25 mg PO Q6 [facility] Last Admin: 07/15/17 06:33 Dose: 25 mg Sodium Chloride (Sodium Chloride 0.45%) 1,000 mls @ 40 mls/hr IV .Q24H [facility] Last Admin: 07/14/17 12:17 Dose: 40 mls/hr Metronidazole (Flagyl) 500 mg in 100 mls @ 100 mls/hr IVPB Q8H [facility] PRN Reason: Protocol Last Admin: 07/15/17 09:31 Dose: 100 mls/hr Insulin Aspart (Novolog) 0 unit SC ACHS [facility] PRN Reason: Protocol Last Admin: 07/15/17 08:02 Dose: Not Given Metoclopramide HCl (Reglan) 10 mg IVP Q6H [facility] Last Admin: 07/15/17 02:39 Dose: 10 mg Morphine Sulfate (Morphine) 2 mg IVP Q4 PRN PRN Reason: Pain, severe (8-10) Last Admin: 07/15/17 10:28 Dose: 2 mg Ondansetron HCl (Zofran Inj) 4 mg IVP Q6 [facility]N PRN Reason: Nausea/Vomiting Last Admin: 07/14/17 08:42 Dose: 4 mg Pantoprazole Sodium (Protonix Inj) 40 mg IVP DAILY [facility] Last Admin: 07/14/17 10:44 Dose: 40 mg - Labs Labs: 07/15/17 07:13 07/15/17 07:13 PT 11.1 SECONDS (9.7-12.2) 07/14/17 15:05 INR 1.0 07/14/17 15:05 APTT 31 SECONDS (21-34) 07/14/17 15:05
[2017-07-15] MEDS: Sodium Chloride 0.45% 1,000 ML IV SCH ×2 (15:51→16:12)
[2017-07-16] MEDS: Morphine 4 MG/ML VIAL IVP PRN ×6 (00:32→22:14)
[2017-07-16] MEDS: metroNIDAZOLE IV 500 mg/100 ml 500 MG/100 ML BAG IVPB SCH ×3 (00:33→16:22)
[2017-07-16 06:41] LABS: BASO # 0.1 K/uL (0.0-0.2); BASO % 0.9 % (0.0-2.0); EOS # 0.4 K/uL (0.0-0.7); EOS % 3.5 % (0.0-4.0); HEMOGLOBIN 13.7 g/dL (12.0-18.0); LYMPH # 2.3 K/uL (1.0-4.3); LYMPH % 20.4 % (20.0-40.0); MEAN CELL VOLUME 90.3 fL (80.0-94.0); MEAN CORPUSCULAR HEMOGLOBIN 29.5 pg (27.0-31.0); MEAN CORPUSCULAR HGB CONC 32.7 g/dL (33.0-37.0); MEAN PLATELET VOLUME 8.7 fL (7.2-11.7); MONO % 8.6 % (0.0-10.0); NEUT # 7.5 K/uL (1.8-7.0); NEUT % 66.6 % (50.0-75.0); NRBC % 0.1 % (0.0-2.0); RBC 4.64 Mil/uL (4.40-5.90); RED CELL DISTRIBUTION WIDTH 19.3 % (11.5-14.5); WHITE BLOOD COUNT 11.2 K/uL (4.8-10.8)
[2017-07-16 07:00] LABS: CALCIUM 7.9 mg/dl (8.6-10.4)
--- NOTE | 2017-07-16 08:00 | HP ---
SUBJECTIVE: Mr. Haynes chief complaint nausea, vomiting, weakness. Patient came to the ER, advised admission. Patient . addiction. PHYSICAL EXAMINATION: GENERAL: The patient is awake, alert, and oriented. VITAL SIGNS: Blood pressure 200/110, temperature 98, pulse 90. HEENT: Within normal limits. NECK: Supple. CHEST: Symmetrical. HEART: Regular. ABDOMEN: Soft. EXTREMITIES: No edema. ASSESSMENT AND PLAN: Patient suffers from gastritis, uncontrolled hypertension, diabetes. Patient get bed rest, IV fluids. Lucero Chadwick MD
[2017-07-16] MEDS: (Novolog) Insulin Aspart, Recombinant 100 u/ml 10 ml vial SC SCH ×4 (08:27→21:35)
--- NOTE | 2017-07-16 18:19 | PN ---
DATE: 07/16/2017 LOCATION: 651, bed B. This is a 37-year-old male seen and examined in rounds, post upper endoscopy yesterday, appears to be awake, alert, oriented without reported active bleeding, with much less episodes of nausea, dyspepsia, and vomiting. No reported chest pain, palpitation, or significant shortness of breath. Today's labs showed white blood cells of 11.2 with normal hemoglobin and hematocrit and normal platelet count with BUN of 24 and creatinine 5.5. Blood glucose level 140 with calcium 7.9. PHYSICAL EXAMINATION: GENERAL: A 37-year-old male, tolerating oral intake. VITAL SIGNS: With blood pressure of 160/78. Afebrile with pulse of 92, respiratory rate 20 to 22. HEENT: Showed pale, dry oral mucous membrane. Nonicteric sclera. LUNGS: Few scattered crepitation. Decreased air entry at bases. HEART: Positive S1 and S2. ABDOMEN: Soft with mild generalized tenderness. No mass or organomegaly. No rebound tenderness or guarding. EXTREMITIES: Without significant edema, clubbing, or cyanosis. NEUROLOGIC: No reported new neurological deficits, sensory or motor. No reported new focal deficits. Peripheral pulses are present bilaterally but weak. IMPRESSION: 1. Diffuse esophageal candidiasis by upper endoscopy. 2. Erosive gastritis with evidence of gastroparesis and hiatus hernia. 3. Poorly controlled diabetes mellitus with diabetic gastroparesis. 4. Recent history of upper gastrointestinal bleeding with hematemesis of coffee-ground material secondary to above. 5. Poorly controlled hypertension. 6. Poorly controlled diabetes mellitus. 7. End-stage renal disease, on hemodialysis. 8. Known history of peripheral edema syndrome. 9. Reported history of pancreatitis on and off in the past. SUGGESTIONS: 1. Continue current management. 2. Subsequent increase of oral intake. 3. Guaiac all the stool daily x3. 4. Further recommendation to follow. Cassy Hernandez MD
[2017-07-16] MEDS: Sodium Chloride 0.45% 1,000 ML IV SCH (23:13)
[2017-07-17] MEDS: metroNIDAZOLE IV 500 mg/100 ml 500 MG/100 ML BAG IVPB SCH ×3 (01:00→16:46)
[2017-07-17] MEDS: Morphine 4 MG/ML VIAL IVP PRN ×5 (02:16→19:03)
[2017-07-17 07:46] LABS: BASO # 0.1 K/uL (0.0-0.2); BASO % 1.2 % (0.0-2.0); EOS # 0.3 K/uL (0.0-0.7); EOS % 4.2 % (0.0-4.0); HEMOGLOBIN 12.7 g/dL (12.0-18.0); LYMPH # 1.3 K/uL (1.0-4.3); MEAN CELL VOLUME 90.6 fL (80.0-94.0); MEAN CORPUSCULAR HEMOGLOBIN 29.9 pg (27.0-31.0); MONO # 0.8 K/uL (0.0-0.8); NEUT # 5.3 K/uL (1.8-7.0); NEUT % 67.6 % (50.0-75.0); NRBC % 0.1 % (0.0-2.0); RBC 4.24 Mil/uL (4.40-5.90); RED CELL DISTRIBUTION WIDTH 18.1 % (11.5-14.5); WHITE BLOOD COUNT 7.9 K/uL (4.8-10.8)
[2017-07-17 07:52] LABS: CALCIUM 7.6 mg/dl (8.6-10.4)
[2017-07-17] MEDS: (Novolog) Insulin Aspart, Recombinant 100 u/ml 10 ml vial SC SCH ×4 (09:55→22:43)
[2017-07-17] MEDS: Sodium Chloride 0.45% 1,000 ML IV SCH (13:00)
[2017-07-18] MEDS: metroNIDAZOLE IV 500 mg/100 ml 500 MG/100 ML BAG IVPB SCH ×4 (00:59→17:00)
--- NOTE | 2017-07-18 08:32 | PN ---
DATE: 07/16/2017 SUBJECTIVE: The patient getting supportive care. Continue treatment. Lucero Chadwick MD
[2017-07-18] MEDS: (Novolog) Insulin Aspart, Recombinant 100 u/ml 10 ml vial SC SCH ×4 (08:37→21:58)
[2017-07-18 10:21] LABS: BASO # 0.1 K/uL (0.0-0.2); BASO % 1.2 % (0.0-2.0); EOS # 0.3 K/uL (0.0-0.7); EOS % 3.1 % (0.0-4.0); HEMOGLOBIN 13.1 g/dL (12.0-18.0); LYMPH # 1.3 K/uL (1.0-4.3); LYMPH % 15.2 % (20.0-40.0); MEAN CELL VOLUME 89.5 fL (80.0-94.0); MEAN CORPUSCULAR HGB CONC 33.5 g/dL (33.0-37.0); MONO # 0.7 K/uL (0.0-0.8); MONO % 8.2 % (0.0-10.0); NEUT # 6.1 K/uL (1.8-7.0); NEUT % 72.3 % (50.0-75.0); NRBC % 0.1 % (0.0-2.0); RBC 4.37 Mil/uL (4.40-5.90); RED CELL DISTRIBUTION WIDTH 18.3 % (11.5-14.5); WHITE BLOOD COUNT 8.4 K/uL (4.8-10.8)
[2017-07-18 10:48] LABS: CALCIUM 8.1 mg/dl (8.6-10.4)
--- NOTE | 2017-07-18 11:01 | CP.PCM.PN ---
Subjective - Date & Time of Evaluation Date of Evaluation: 07/18/17 Time of Evaluation: 11:00 - Subjective Subjective: Progress note. Attending: Dr. Chadwick Pt seen and examined at bedside. No acute distress. No events overnight. No fevers, chills, vomiting, diarrhea. Objective - Vital Signs/Intake and Output Vital Signs (last 24 hours): Temp Pulse Resp BP Pulse Ox 97.8 F 92 H 18 179/84 H 98 07/18/17 10:00 07/18/17 10:00 07/18/17 10:00 07/18/17 10:30 07/18/17 10:00 Intake and Output: 07/18/17 07/18/17 06:59 18:59 Intake Total 240 Balance 240 - Medications Medications: Current Medications Amlodipine Besylate (Norvasc) 10 mg PO DAILY [facility] Last Admin: 07/17/17 10:04 Dose: 10 mg Aspirin (Aspirin Chewable) 81 mg PO DAILY [facility] Last Admin: 07/17/17 10:05 Dose: 81 mg Clonidine HCl (Catapres-Tts3 0.3 Mg/24 Hr) 1 patch TD Q7D@1000 [facility] Fluconazole (Diflucan) 100 mg PO DAILY [facility] PRN Reason: Protocol Last Admin: 07/17/17 10:05 Dose: 100 mg Hydralazine HCl (Apresoline) 25 mg PO Q6 [facility] Last Admin: 07/18/17 05:44 Dose: 25 mg Metronidazole (Flagyl) 500 mg in 100 mls @ 100 mls/hr IVPB Q8H [facility] PRN Reason: Protocol Last Admin: 07/18/17 08:39 Dose: 100 mls/hr Insulin Aspart (Novolog) 0 unit SC ACHS [facility] PRN Reason: Protocol Last Admin: 07/18/17 08:37 Dose: 6 unit Metoclopramide HCl (Reglan) 10 mg IVP Q6H [facility] Last Admin: 07/18/17 08:41 Dose: 10 mg Morphine Sulfate (Morphine) 2 mg IVP Q4 PRN PRN Reason: Pain, severe (8-10) Last Admin: 07/18/17 08:42 Dose: 2 mg Ondansetron HCl (Zofran Inj) 4 mg IVP Q6 PRN PRN Reason: Nausea/Vomiting Last Admin: 07/14/17 08:42 Dose: 4 mg Pantoprazole Sodium (Protonix Inj) 40 mg IVP DAILY [facility] Last Admin: 07/17/17 09:56 Dose: 40 mg Sevelamer Carbonate (Renvela) 1,600 mg PO TIDCC [facility] Vitamin B Complex/Vit C/Folic Acid (Nephro-Yomi) 1 tab PO 0800 [facility] - Labs Labs: 07/18/17 10:18 07/18/17 10:18 PT 11.1 SECONDS (9.7-12.2) 07/14/17 15:05 INR 1.0 07/14/17 15:05 APTT 31 SECONDS (21-34) 07/14/17 15:05 - Constitutional Appears: Non-toxic, No Acute Distress, Chronically Ill - Head Exam Head Exam: ATRAUMATIC, NORMAL INSPECTION, NORMOCEPHALIC - Eye Exam Eye Exam: EOMI - ENT Exam ENT Exam: Mucous Membranes Moist - Neck Exam Neck Exam: Full ROM, Normal Inspection - Respiratory Exam Respiratory Exam: NORMAL BREATHING PATTERN. absent: Respiratory Distress - Cardiovascular Exam Cardiovascular Exam: +S1, +S2 - GI/Abdominal Exam GI & Abdominal Exam: Soft, Normal Bowel Sounds. absent: Tenderness - Extremities Exam Extremities Exam: Full ROM, Normal Inspection - Neurological Exam Neurological Exam: Alert, Awake, Oriented x3 - Psychiatric Exam Psychiatric exam: Flat Affect, Normal Mood - Skin Skin Exam: Dry, Intact, Normal Color, Warm Assessment and Plan - Assessment and Plan (Free Text) Assessment: This is a 37 yo male with Candidiasis esophagitis Dr. Armstrong, GI consulted. recs appreciated. Protonix 40mg IVP daily 1/2 nS at 40cc/hour Zofran prn nausea Flagyl 500mg IVPB Q8 hours Diflucan 100mg PO for 2 weeks Follow up for biopsy results Gastroparesis Patient with intermittent abdominal pain Patient with poorly controlled diabetes Reglan 10mg IVP Q6 hours Zofran Recommendations to eat small meals at a time slowly. Morphine 2mg IVP prn pain, severe ESRD on HD MWF Nephrology on the case. Dr. Larsen Renal diet Renvela 160mg PO TID HD M/W/ Heparin 2000 U IVP MWF IDDM Accuchecks ACHS ISS ASA 81mg PO Daily Crestor 10 mg PO Daily HTN Norvasc 10 mg PO Daily Hydralazine 25 mg po q6 Monitor Patient refusing oral medications, will add catapres patch Prophylaxis SCDs Protonix 40mg IVP daily All management per Dr. Chadwick.
--- NOTE | 2017-07-18 14:29 | PN ---
DATE: LOCATION: 653, bed B. SUBJECTIVE: This is a 37-year-old male seen and examined in rounds without any recent reported active bleeding, but generalized weakness and malaise. The entire chart is reviewed including, but not limited to the most recent lab and radiology study results, current and the previous medication lists, current and the previous medical events. The patient is still having period of abdominal pain, but no chest pain, significant complaint of palpitation, shortness of breath. No reported recent history of chills or fever. The entire chart is reviewed including, but not limited to the most recent lab and radiology study results, current and the previous medication lists, current and the previous medical events. Case discussed with the staff at length. Today's labs showed normal CBC with potassium 5.3, CO2 content of 21 indicative of metabolic acidosis with BUN 54, creatinine 9.4 compatible with the patient's known history of renal failure. Blood glucose level of 189, calcium 8.1. PHYSICAL EXAMINATION: GENERAL: A 37-year-old male, awake, alert, oriented. Denied any evidence of active bleeding or nausea and no vomiting this morning. VITAL SIGNS: Afebrile with pulse of 94, respiratory rate 20 to 22 with blood pressure 150/82. HEENT: Showed pale, dry oral mucous membrane. Nonicteric sclerae. LUNGS: Few scattered crepitations, decreased air entry at bases. HEART: Positive S1 and S2. ABDOMEN: Soft with mild generalized tenderness. No mass or organomegaly. No rebound tenderness or guarding. EXTREMITIES: No significant clubbing, cyanosis, or edema. NEUROLOGIC: No reported new focal deficits, sensory or motor. IMPRESSION: 1. Recent history of upper gastrointestinal bleeding. 2. Evidence of esophagitis with diffuse esophageal candidiasis. 3. Erosive gastritis with evidence of gastroparesis and hiatus hernia. 4. Poorly-controlled diabetes mellitus. 5. Poorly-controlled hypertension. 6. End-stage renal disease, on hemodialysis. 7. Reported history of peripheral edema syndrome, slightly improving. SUGGESTIONS: 1. Continue current management. 2. Follow up with serum lipase and amylase level. 3. Advance diet gradually. 4. Further recommendation to follow and repeat amylase and lipase level as indicated. Cassy Hernandez MD [facility] # [id number]
[2017-07-18] MEDS: Oxycodone/Acetaminophen 5/325 mg Tab PO PRN ×2 (15:03→21:12)
--- NOTE | 2017-07-18 15:14 | CP.PCM.PN ---
Subjective - Date & Time of Evaluation Date of Evaluation: 07/18/17 Time of Evaluation: 15:13 - Subjective Subjective: Nephrology Consultation Note Assessment: stable Uncontrolled DM with hypoglycemia and hyperglycemia recurrent nausea/vomiting, Cyclic Emesis Syndrome, marijuana abuse, gastroparesis, esophagitis, candidiasis Diabetic chronic Kidney Disease (E11.22) Hypertensive Chronic Kidney Disease (I12.0) End stage renal disease (N18.6) dependence on hemodialysis (Z99.2) (MWF) via AVF Anemia (D64.9), Hyperphosphatemia (E83.39), Secondary Hyperparathyroidism (E21.1 ), HTN (I12.0) Plan: dialysis today as per MWF schedule as ordered. Continue with Nephrovite 1 tab/ day. no MOHINI with HD, last Hb 13 continue with phos binders, last phos 8.7 BP control with meds as ordered. no ACEI/ARB due to hyperkalemia episodes intermittently/frequently Glycemic control, Dialysis consistent diet Further work up/management as per primary team Dose meds/antibiotics for ESRD status. Avoid fleets enema/magnesium based laxatives. pt to abstain from marijuana GI following Thanks for allowing me to participate in care of your patient. Will follow patient with you. Please call if any Qs. Dr Brenton Larsen Office: [phone] CC: pain abdomen reason for consult; ESRD management HPI: Pt is a 36 y/o M with hx of ESRD on hemodialysis (MWF) via AVF, chronic anemia, hyperphosphatemia, secondary hyperparathyroidism, Diabetes Mellitus, hypertension, recurrent nausea/vomiting and multiple hospitalization for same, came back with nausea/vomitting and pain abdomen Denies chest pain, palpitation, leg swelling c/o pain upper abdomen (chronic) ROS: Constitutional Symptoms: No Recent Weight Changes Cardiovascular: No chest pain. No palpitations. Pulmonary: No cough. says breathing okay Gastrointestinal: reports chronic abdominal pain. c/o nausea. c/o vomiting. Denies change in bowel habits. Denies Bleeding All other negative except as in HPI. Physical Examination: General Appearance: comfortable, in no acute respiratory distress, co- operative. Vitals reviewed and noted as below Head; Atraumatic, normocephalic ENT: no ulcers no thrush. Tongue is midline. Oropharynx: no rash or ulcers. EYES: Pupils are equal, round and reactive to light accommodation. Eye muscles and extraocular movement intact. Sclera is anicteric. Neck; supple no lymphadenopathy, no thyromegaly or bruit Lungs: Normal respiratory rate/effort. Breath sounds bilateral equal and clear Heart: normal rate. s1s2 normal. No rub or gallop. Extremities: no edema. No varicose veins Neurological: Patient is alert, awake and oriented to person, place and time. No focal deficit. Strength bilateral appropriate and equal Skin: Warm and dry. Normal turgor. No rash. Palpitation: Normal elasticity for age Abdomen: Abdomen is soft. Bowel sounds +. There is no abdominal tenderness (and pt response usually out of proportion to palpation), no guarding/rigidity or organomegaly Psych: limited insight and normal affect/mood MSK: no joint tenderness or swelling. Digits and nails normal, no deformity. : kidney or bladder not palpable. Access: AVF Labs/imaging reviewed. Past medical history, past surgical history, family history, social history, allergy reviewed and noted as below Family Hx: no hx of CKD. Non contributory sec HTN work up neg as renin/ioana, metanephrine and renal artery doppler Objective - Vital Signs/Intake and Output Vital Signs (last 24 hours): Temp Pulse Resp BP Pulse Ox 98 F 92 H 16 152/85 H 98 07/18/17 13:30 07/18/17 13:30 07/18/17 13:30 07/18/17 13:30 07/18/17 13:30 Intake and Output: 07/18/17 07/18/17 06:59 18:59 Intake Total 240 Balance 240 - Medications Medications: Current Medications Amlodipine Besylate (Norvasc) 10 mg PO DAILY [facility] Last Admin: 07/18/17 14:21 Dose: 10 mg Aspirin (Aspirin Chewable) 81 mg PO DAILY [facility] Last Admin: 07/18/17 14:21 Dose: 81 mg Clonidine HCl (Catapres-Tts3 0.3 Mg/24 Hr) 1 patch TD Q7D@1000 [facility] Fluconazole (Diflucan) 100 mg PO DAILY [facility] PRN Reason: Protocol Last Admin: 07/18/17 14:36 Dose: Not Given Heparin Sodium (Porcine) (Heparin) 2,000 units IVP F [facility] Last Admin: 07/18/17 11:30 Dose: 2,000 units Hydralazine HCl (Apresoline) 25 mg PO Q6 [facility] Last Admin: 07/18/17 14:21 Dose: 25 mg Metronidazole (Flagyl) 500 mg in 100 mls @ 100 mls/hr IVPB Q8H [facility] PRN Reason: Protocol Last Admin: 07/18/17 15:02 Dose: Not Given Insulin Aspart (Novolog) 0 unit SC ACHS [facility] PRN Reason: Protocol Last Admin: 07/18/17 14:26 Dose: Not Given Metoclopramide HCl (Reglan) 10 mg IVP Q6H [facility] Last Admin: 07/18/17 14:30 Dose: Not Given Morphine Sulfate (Morphine) 2 mg IVP Q4 PRN PRN Reason: Pain, severe (8-10) Last Admin: 07/18/17 08:42 Dose: 2 mg Ondansetron HCl (Zofran Inj) 4 mg IVP Q6 PRN PRN Reason: Nausea/Vomiting Last Admin: 07/14/17 08:42 Dose: 4 mg Oxycodone/Acetaminophen (Percocet 5/325 Mg Tab) 1 tab PO Q6H PRN PRN Reason: Pain, severe (8-10) Stop: 07/21/17 14:57 Last Admin: 07/18/17 15:03 Dose: 1 tab Pantoprazole Sodium (Protonix Inj) 40 mg IVP DAILY [facility] Last Admin: 07/18/17 14:28 Dose: Not Given Sevelamer Carbonate (Renvela) 1,600 mg PO TIDCC [facility] Last Admin: 07/18/17 14:45 Dose: Not Given Vitamin B Complex/Vit C/Folic Acid (Nephro-Yomi) 1 tab PO 0800 [facility] - Labs Labs: 07/18/17 10:18 07/18/17 10:18 PT 11.1 SECONDS (9.7-12.2) 07/14/17 15:05 INR 1.0 07/14/17 15:05 APTT 31 SECONDS (21-34) 07/14/17 15:05
[2017-07-19] MEDS: Oxycodone/Acetaminophen 5/325 mg Tab PO PRN ×3 (03:01→18:00)
[2017-07-19] MEDS ORDERED: Multivitamin Vitamin B Complex (Nephro-Vite) Tab PO SCH (08:00)
[2017-07-19] MEDS: (Novolog) Insulin Aspart, Recombinant 100 u/ml 10 ml vial SC SCH ×3 (08:30→18:02)
[2017-07-19] MEDS ORDERED: Pantoprazole 40 mg EC Tab PO SCH (10:00)
--- NOTE | 2017-07-19 10:24 | CP.PCM.PN ---
Subjective - Date & Time of Evaluation Date of Evaluation: 07/19/17 Time of Evaluation: 10:20 - Subjective Subjective: Progress note. Attending: Dr. Chadwick. Pt seen and examined at bedside. NO acute distress. No events overnight. No fevers, chills, vomiting, diarrhea. Objective - Vital Signs/Intake and Output Vital Signs (last 24 hours): Temp Pulse Resp BP Pulse Ox 98.7 F 88 18 180/94 H 96 07/19/17 07:30 07/19/17 07:30 07/19/17 07:30 07/19/17 07:30 07/19/17 07:30 Intake and Output: 07/19/17 07/19/17 06:59 18:59 Intake Total 350 Balance 350 - Medications Medications: Current Medications Amlodipine Besylate (Norvasc) 10 mg PO DAILY [facility] Last Admin: 07/19/17 09:37 Dose: 10 mg Aspirin (Aspirin Chewable) 81 mg PO DAILY [facility] Last Admin: 07/19/17 09:37 Dose: 81 mg Clonidine HCl (Catapres-Tts3 0.3 Mg/24 Hr) 1 patch TD Q7D@1000 [facility] Fluconazole (Diflucan) 100 mg PO DAILY [facility] PRN Reason: Protocol Last Admin: 07/19/17 09:41 Dose: 100 mg Heparin Sodium (Porcine) (Heparin) 2,000 units IVP MWF [facility] Last Admin: 07/18/17 11:30 Dose: 2,000 units Hydralazine HCl (Apresoline) 25 mg PO Q6 [facility] Last Admin: 07/19/17 05:44 Dose: 25 mg Insulin Aspart (Novolog) 0 unit SC ACHS [facility] PRN Reason: Protocol Last Admin: 07/19/17 08:30 Dose: 8 unit Metoclopramide HCl (Reglan) 10 mg PO Q6 [facility] Last Admin: 07/19/17 05:44 Dose: 10 mg Ondansetron HCl (Zofran Tab) 4 mg PO Q6 PRN PRN Reason: Nausea/Vomiting Oxycodone/Acetaminophen (Percocet 5/325 Mg Tab) 1 tab PO Q6H PRN PRN Reason: Pain, severe (8-10) Stop: 07/21/17 14:57 Last Admin: 07/19/17 09:37 Dose: 1 tab Pantoprazole Sodium (Protonix Ec Tab) 40 mg PO DAILY [facility] Last Admin: 07/19/17 09:37 Dose: 40 mg Sevelamer Carbonate (Renvela) 1,600 mg PO TIDCC [facility] Last Admin: 07/19/17 08:38 Dose: 1,600 mg Vitamin B Complex/Vit C/Folic Acid (Nephro-Yomi) 1 tab PO 0800 [facility] Last Admin: 07/19/17 08:35 Dose: 1 tab - Labs Labs: 07/18/17 10:18 07/18/17 10:18 PT 11.1 SECONDS (9.7-12.2) 07/14/17 15:05 INR 1.0 07/14/17 15:05 APTT 31 SECONDS (21-34) 07/14/17 15:05 - Constitutional Appears: Non-toxic, No Acute Distress, Chronically Ill - Head Exam Head Exam: ATRAUMATIC, NORMAL INSPECTION, NORMOCEPHALIC - Eye Exam Eye Exam: EOMI - ENT Exam ENT Exam: Mucous Membranes Moist - Neck Exam Neck Exam: Full ROM, Normal Inspection - Respiratory Exam Respiratory Exam: NORMAL BREATHING PATTERN. absent: Respiratory Distress - Cardiovascular Exam Cardiovascular Exam: +S1, +S2 - GI/Abdominal Exam GI & Abdominal Exam: Soft, Normal Bowel Sounds. absent: Tenderness - Extremities Exam Extremities Exam: Full ROM, Normal Inspection - Back Exam Back Exam: NORMAL INSPECTION - Neurological Exam Neurological Exam: Alert, Awake, CN II-XII Intact, Oriented x3 - Psychiatric Exam Psychiatric exam: Flat Affect - Skin Skin Exam: Dry, Intact, Normal Color, Warm Assessment and Plan - Assessment and Plan (Free Text) Assessment: This is a 37 yo male with Candidiasis esophagitis Dr. Armstrong, GI consulted. recs appreciated. Protonix 40 mg IVP daily Zofran prn nausea Flagyl 500 mg IVPB Q8 hours Diflucan 100 mg PO for 2 weeks Follow up for biopsy results Gastroparesis Patient with intermittent abdominal pain Patient with poorly controlled diabetes Reglan 10mg IVP Q6 hours Zofran prn nausea Recommendations to eat small meals at a time slowly. Morphine 2mg IVP prn pain, severe ESRD on HD MWF Nephrology on the case. Dr. Larsen Renal diet Renvela 160mg PO TID HD M/W/F Heparin 2000 U IVP MWF IDDM Accuchecks ACHS ISS ASA 81mg PO Daily Crestor 10 mg PO Daily HTN Norvasc 10 mg PO Daily Hydralazine 25 mg po q6 Monitor Patient refusing oral medications, will add catapres patch Prophylaxis SCDs Protonix 40mg IVP daily All management per Dr. Chadwick.
[2017-07-19 11:23] LABS: HEMOGLOBIN 13.4 g/dL (12.0-18.0); MEAN CELL VOLUME 89.6 fL (80.0-94.0); MEAN CORPUSCULAR HEMOGLOBIN 29.5 pg (27.0-31.0); MEAN PLATELET VOLUME 9.2 fL (7.2-11.7); RBC 4.53 Mil/uL (4.40-5.90); RED CELL DISTRIBUTION WIDTH 18.8 % (11.5-14.5); WHITE BLOOD COUNT 9.2 K/uL (4.8-10.8)
--- NOTE | 2017-07-19 11:28 | CP.PCM.PN ---
Subjective - Date & Time of Evaluation Date of Evaluation: 07/19/17 Time of Evaluation: 11:27 - Subjective Subjective: Nephrology Consultation Note Assessment: stable Uncontrolled DM with hypoglycemia and hyperglycemia recurrent nausea/vomiting, Cyclic Emesis Syndrome, marijuana abuse, gastroparesis, esophagitis, candidiasis Diabetic chronic Kidney Disease (E11.22) Hypertensive Chronic Kidney Disease (I12.0) End stage renal disease (N18.6) dependence on hemodialysis (Z99.2) (MWF) via AVF Anemia (D64.9), Hyperphosphatemia (E83.39), Secondary Hyperparathyroidism (E21.1 ), HTN (I12.0) Plan: dialysis tomorrow as per MWF schedule as ordered. Continue with Nephrovite 1 tab /day. no MOHINI with HD, last Hb 13 continue with phos binders, last phos 8.7 BP control with meds as ordered. no ACEI/ARB due to hyperkalemia episodes intermittently/frequently Glycemic control, Dialysis consistent diet Further work up/management as per primary team Dose meds/antibiotics for ESRD status. Avoid fleets enema/magnesium based laxatives. pt to abstain from marijuana GI following Thanks for allowing me to participate in care of your patient. Will follow patient with you. Please call if any Qs. Dr Brenton Larsen Office: [phone] CC: pain abdomen reason for consult; ESRD management HPI: Pt is a 36 y/o M with hx of ESRD on hemodialysis (MWF) via AVF, chronic anemia, hyperphosphatemia, secondary hyperparathyroidism, Diabetes Mellitus, hypertension, recurrent nausea/vomiting and multiple hospitalization for same, came back with nausea/vomitting and pain abdomen Denies chest pain, palpitation, leg swelling c/o pain upper abdomen (chronic) ROS: Constitutional Symptoms: No Recent Weight Changes Cardiovascular: No chest pain. No palpitations. Pulmonary: No cough. says breathing okay Gastrointestinal: reports chronic abdominal pain. better nausea. no vomiting. Denies change in bowel habits. Denies Bleeding All other negative except as in HPI. Physical Examination: General Appearance: comfortable, in no acute respiratory distress, co- operative. Vitals reviewed and noted as below Head; Atraumatic, normocephalic ENT: no ulcers no thrush. Tongue is midline. Oropharynx: no rash or ulcers. EYES: Pupils are equal, round and reactive to light accommodation. Eye muscles and extraocular movement intact. Sclera is anicteric. Neck; supple no lymphadenopathy, no thyromegaly or bruit Lungs: Normal respiratory rate/effort. Breath sounds bilateral equal and clear Heart: normal rate. s1s2 normal. No rub or gallop. Extremities: no edema. No varicose veins Neurological: Patient is alert, awake and oriented to person, place and time. No focal deficit. Strength bilateral appropriate and equal Skin: Warm and dry. Normal turgor. No rash. Palpitation: Normal elasticity for age Abdomen: Abdomen is soft. Bowel sounds +. There is no abdominal tenderness (and pt response usually out of proportion to palpation), no guarding/rigidity or organomegaly Psych: limited insight and normal affect/mood MSK: no joint tenderness or swelling. Digits and nails normal, no deformity. : kidney or bladder not palpable. Access: AVF Labs/imaging reviewed. Past medical history, past surgical history, family history, social history, allergy reviewed and noted as below Family Hx: no hx of CKD. Non contributory sec HTN work up neg as renin/ioana, metanephrine and renal artery doppler Objective - Vital Signs/Intake and Output Vital Signs (last 24 hours): Temp Pulse Resp BP Pulse Ox 98.7 F 88 18 180/94 H 96 07/19/17 07:30 07/19/17 07:30 07/19/17 07:30 07/19/17 07:30 07/19/17 07:30 Intake and Output: 07/19/17 07/19/17 06:59 18:59 Intake Total 350 Balance 350 - Medications Medications: Current Medications Amlodipine Besylate (Norvasc) 10 mg PO DAILY [facility] Last Admin: 07/19/17 09:37 Dose: 10 mg Aspirin (Aspirin Chewable) 81 mg PO DAILY [facility] Last Admin: 07/19/17 09:37 Dose: 81 mg Clonidine HCl (Catapres-Tts3 0.3 Mg/24 Hr) 1 patch TD Q7D@1000 [facility] Fluconazole (Diflucan) 100 mg PO DAILY [facility] PRN Reason: Protocol Last Admin: 07/19/17 09:41 Dose: 100 mg Heparin Sodium (Porcine) (Heparin) 2,000 units IVP MWF [facility] Last Admin: 07/18/17 11:30 Dose: 2,000 units Hydralazine HCl (Apresoline) 25 mg PO Q6 [facility] Last Admin: 07/19/17 05:44 Dose: 25 mg Insulin Aspart (Novolog) 0 unit SC ACHS [facility] PRN Reason: Protocol Last Admin: 07/19/17 08:30 Dose: 8 unit Metoclopramide HCl (Reglan) 10 mg PO Q6 [facility] Last Admin: 07/19/17 05:44 Dose: 10 mg Ondansetron HCl (Zofran Tab) 4 mg PO Q6 PRN PRN Reason: Nausea/Vomiting Oxycodone/Acetaminophen (Percocet 5/325 Mg Tab) 1 tab PO Q6H PRN PRN Reason: Pain, severe (8-10) Stop: 07/21/17 14:57 Last Admin: 07/19/17 09:37 Dose: 1 tab Pantoprazole Sodium (Protonix Ec Tab) 40 mg PO DAILY [facility] Last Admin: 07/19/17 09:37 Dose: 40 mg Sevelamer Carbonate (Renvela) 1,600 mg PO TIDCC [facility] Last Admin: 07/19/17 08:38 Dose: 1,600 mg Vitamin B Complex/Vit C/Folic Acid (Nephro-Yomi) 1 tab PO 0800 [facility] Last Admin: 07/19/17 08:35 Dose: 1 tab - Labs Labs: 07/19/17 11:12 07/18/17 10:18 PT 11.1 SECONDS (9.7-12.2) 07/14/17 15:05 INR 1.0 07/14/17 15:05 APTT 31 SECONDS (21-34) 07/14/17 15:05
[2017-07-19 12:04] LABS: ALBUMIN 3.9 g/dL (3.5-5.0); CALCIUM 8.6 mg/dl (8.6-10.4)
--- NOTE | 2017-07-19 16:27 | PN ---
DATE: LOCATION: 653, bed B. SUBJECTIVE: A 37-year-old male seen and examined around without significant clinical changes or reported active bleeding. The entire chart is reviewed including, but not limited to the most recent lab and radiology study results, current and the previous medication lists, current and the previous medical events. Today's labs showed normal CBC with blood glucose level of 186. The patient denied any actual chest pain, chills, fever, palpitation, or significant shortness of breath. PHYSICAL EXAMINATION: GENERAL: A 37-year-old male, awake, alert, oriented. VITAL SIGNS: Afebrile with pulse of 86, respiratory rate 20 to 22, blood pressure 178/86. HEENT: Showed pale, dry oral mucous membrane. Nonicteric sclerae. LUNGS: Few scattered crepitations, decreased air entry at bases. HEART: Positive S1 and S2. ABDOMEN: Soft with mild generalized tenderness. No mass or organomegaly. No rebound tenderness or guarding. EXTREMITIES: Without significant clubbing, cyanosis, or edema. NEUROLOGIC: No reported new neurological deficits, sensory or motor. IMPRESSION: 1. Recent history of gastrointestinal bleeding. 2. Esophageal candidiasis, peptic ulcer disease with evidence of erosive gastritis. 3. Poorly-controlled diabetes mellitus with diabetic gastroparesis. 4. Poorly-controlled hypertension. 5. End-stage renal disease, on hemodialysis. SUGGESTIONS: 1. Continue current management. 2. Reglan IV. 3. Proton pump inhibitor. Cassy Hernandez MD
[2017-07-19 16:39] VITALS: RESP 18; TEMP 98.1; O2SAT 99
[2017-07-19 17:03] VITALS: BP 189/95; PULSE 97
--- NOTE | 2017-07-19 22:52 | CP.PCM.CON ---
History of Present Illness - History of Present Illness History of Present Illness: 37 M with hx of HTN with atypical chest pain Stress test and ECHO ordered for am Past Patient History - Infectious Disease Hx of Infectious Diseases: None - Past Medical History & Family History Past Medical History?: Yes - Past Social History Smoking Status: Light Smoker < 10 Cigarettes Daily - CARDIAC Hx Congestive Heart Failure: Yes Hx Hypercholesterolemia: Yes Hx Hypertension: Yes Hx Peripheral Edema: Yes - PULMONARY Hx Respiratory Disorders: No - NEUROLOGICAL Hx Neurological Disorder: No - HEENT Hx HEENT Problems: Yes Hx Cataracts: Yes - RENAL Hx Chronic Kidney Disease: Yes Hx Kidney Stones: No - ENDOCRINE/METABOLIC Hx Endocrine Disorders: Yes Hx Diabetes Mellitus Type 2: Yes - HEMATOLOGICAL/ONCOLOGICAL Hx Anemia: Yes Hx Human Immunodeficiency Virus (HIV): No - INTEGUMENTARY Hx Dermatological Problems: No - MUSCULOSKELETAL/RHEUMATOLOGICAL Hx Falls: Yes - GASTROINTESTINAL Hx Gastritis: Yes (gastroparesis) - GENITOURINARY/GYNECOLOGICAL Hx Genitourinary Disorders: No - PSYCHIATRIC Hx Substance Use: No (use marijuana) - SURGICAL HISTORY Hx Surgeries: Yes Hx Cataract Extraction: Yes (bilateral) Hx Vascular Surgery: Yes Hx Vascular Access Device: Yes Other/Comment: Hx RT.PERMACATH INSERTION 12/30. 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 Hx UNDESCENDED TESTES LT. REMOVED DURING CHILDHOOD - ANESTHESIA Hx Anesthesia: Yes Hx Anesthesia Reactions: No Hx Malignant Hyperthermia: No Meds Allergies/Adverse Reactions: Allergies Allergy/AdvReac Type Severity Reaction Status Date / Time No Known Allergies Allergy Verified 07/13/17 16:52 Results - Vital Signs Recent Vital Signs: Last Vital Signs Temp 98.1 F 07/19/17 16:05 Pulse 96 H 07/19/17 16:05 Resp 18 07/19/17 16:05 BP 162/91 H 07/19/17 16:05 Pulse Ox 99 07/19/17 16:05 - Labs Result Diagrams: 07/19/17 11:12 07/19/17 11:12 Labs: Laboratory Results - last 24 hr 07/19/17 07/19/17 07/19/17 05:53 11:11 11:12 WBC 9.2 RBC 4.53 Hgb 13.4 Hct 40.5 MCV 89.6 MCH 29.5 MCHC 33.0 RDW 18.8 H Plt Count 218 MPV 9.2 Sodium Potassium Chloride Carbon Dioxide Anion Gap BUN Creatinine Est GFR ( Amer) Est GFR (Non-Af Amer) POC Glucose (mg/dL) 319 H 186 H Random Glucose Calcium Total Bilirubin AST ALT Alkaline Phosphatase Total Protein Albumin Globulin Albumin/Globulin Ratio 07/19/17 07/19/17 11:12 15:51 WBC RBC Hgb Hct MCV MCH MCHC RDW Plt Count MPV Sodium 137 Potassium 6.2 H* Chloride 95 L Carbon Dioxide 26 Anion Gap 22 H BUN 60 H Creatinine 7.2 H Est GFR ( Amer) 10 Est GFR (Non-Af Amer) 9 POC Glucose (mg/dL) 185 H Random Glucose 154 H Calcium 8.6 Total Bilirubin 0.6 AST 23 ALT 9 L D Alkaline Phosphatase 132 H D Total Protein 7.8 Albumin 3.9 Globulin 3.9 Albumin/Globulin Ratio 1.0
== END 2017-07-19 19:20 | disposition left against medical advice (07) | DRG 368 ==
LOC: C.ER 16:42 → C.9E 18:26 → C.3T 21:34 → C.6T 07-14 09:26 → OBSVTOIN 07-16 09:41 → C.6T 07-17 14:29
PROVIDERS: ADMIT Internal Medicine Pulmonary Disease; ATTEND Internal Medicine Pulmonary Disease
PROC: 0DB68ZX Excision of Stomach, Via Natural or Artificial Opening Endoscopic, Diagnostic (ICD-10-PCS; 2017-07-15)
PROC: 5A1D70Z Performance of Urinary Filtration, Intermittent, Less than 6 Hours Per Day (ICD-10-PCS; principal; 2017-07-18)
PROC: 5A1D70Z Performance of Urinary Filtration, Intermittent, Less than 6 Hours Per Day (ICD-10-PCS; 2017-07-18)
DX: B37.81 Candidal esophagitis (principal); N18.6 End stage renal disease; E87.2 Acidosis; I13.2 Hypertensive heart and chronic kidney disease with heart failure and with stage 5 chronic kidney disease, or end stage renal disease; N17.9 Acute kidney failure, unspecified; N25.81 Secondary hyperparathyroidism of renal origin; D64.9 Anemia, unspecified; E78.5 Hyperlipidemia, unspecified; F12.10 Cannabis abuse, uncomplicated; K27.9 Peptic ulcer, site unspecified, unspecified as acute or chronic, without hemorrhage or perforation; K29.60 Other gastritis without bleeding; K31.84 Gastroparesis; K44.9 Diaphragmatic hernia without obstruction or gangrene; Z79.4 Long term (current) use of insulin; I50.9 Heart failure, unspecified; Z99.2 Dependence on renal dialysis; F17.210 Nicotine dependence, cigarettes, uncomplicated; E10.22 Type 1 diabetes mellitus with diabetic chronic kidney disease; E10.43 Type 1 diabetes mellitus with diabetic autonomic (poly)neuropathy; E10.649 Type 1 diabetes mellitus with hypoglycemia without coma; E10.65 Type 1 diabetes mellitus with hyperglycemia